=== PATIENT | female | born 1960 | race Caucasian/White ===

== ENCOUNTER 2021-07-08 03:09 | Emergency (ER) | payer MEDICAID, SELFPAY ==
--- NOTE | ~2021-07-08 | CT_ITS ---
EXAMINATION: CT ABDOMEN AND PELVIS WITHOUT CONTRAST CLINICAL INFORMATION: Left upper quadrant discomfort. Suspected hernia. COMPARISON: None TECHNIQUE: Multidetector volumetric imaging was performed from the superior aspect of the liver through the pubic symphysis. Sagittal and coronal reformatted images were obtained on the technologist's workstation. This CT examination was performed using dose optimization techniques as appropriate, variously including the following: *Automated exposure control *Adjustment of mA and/or kV according to patient size (this includes techniques or standardized protocols for targeted exams where dose is matched to indication/reason for exam; i.e. extremities or head) *Use of iterative reconstruction technique DLP: 800.85 mGy-cm FINDINGS: LUNG BASES: The visualized lung bases are unremarkable. Extensive calcifications are present within the included visualized part of both breasts. Mammographic correlation is recommended. LIVER, GALLBLADDER, AND BILIARY TREE: The liver is normal in size, shape, and attenuation. No focal hepatic lesion or biliary ductal dilatation is present. The gallbladder is surgically absent. PANCREAS: Unremarkable. SPLEEN: Unremarkable. ADRENAL GLANDS: Unremarkable. KIDNEYS AND URETERS: The left kidney is normal in size, shape, and attenuation. No hydronephrosis, hydroureter seen. No perinephric stranding. Contour abnormalities are present at the superior as well as inferior pole of the right kidney associated with soft tissue fullness, suspicious for masses, approximately measures 3 cm at the superior pole. Not optimally characterized on this noncontrast study. Note is made of linear hyperdensities within both renal sinuses, likely represent vascular calcification. Nonobstructing subtle calculi are included in the differential. BLADDER: Unremarkable. GASTROINTESTINAL TRACT: Fat-containing mass is noted in the region of the ascending colon (image #[id number] series 4) the appendix is well-visualized and is unremarkable. The small bowel loops are decompressed. The stomach is decompressed. Small sliding hiatal hernia present.. ABDOMINAL WALL: There is no evidence of any hernia present. Within the lower anterior abdominal/pelvic wall, bilateral nonspecific soft tissue masses are present measures 5.5 cm on the left and 6.9 cm on the right. LYMPH NODES: Normal. VASCULAR: Diffuse calcific artery opacities present throughout the aorta and is branches. PELVIC VISCERA: There is no pelvic mass present. There is no free fluid and/or free air present. OSSEOUS STRUCTURES: Moderate diffuse osteopenia and multilevel degenerative spondylosis related changes are noted at lower visualized thoracic spine. Degenerative spondylosis is also noted at lower lumbar spine. Low-density around both hips, may represent bilateral small hip joint effusions. CT/CT abdomen pelvis wo con IMPRESSION: 1. No CT evidence of any acute intra-abdominal and/or intrapelvic pathology is present. 2. Extensive bilateral breast calcifications are present. Mammographic correlation is recommended. 3. Abnormal morphology appearance of the right kidney suspicious for masses at both superior and inferior pole, not optimally characterized on this noncontrast study. Follow-up multiphasic pre and postcontrast CT scan of the abdomen or MRI per renal mass protocol is recommended. 4. Bilateral hyperdensities are noted within the renal sinuses, may represent vascular calcification versus nonobstructing central renal calculi. 5. Fat-containing mass is noted in the region of the ascending colon. Direct visualization/colonoscopy is recommended. 6. Bilateral lower anterior abdominal/pelvic wall nonspecific subcutaneous soft tissue masses. 7. Moderate diffuse osteopenia and multilevel degenerative spondylosis and low density around both hips, may represent bilateral small hip joint effusions.
[2021-07-08 03:14] VITALS: BP 140/64; PULSE 105; RESP 16; TEMP 37.2; BMI 37.0
[2021-07-08 04:08] LABS: MANUAL DIFF FLAG NO
[2021-07-08 04:09] LABS: Basophils Percent Auto 0.5 % (0-2); Eosinophils Absolute Auto 0.1 X10*3/uL (0.0-0.4); Eosinophils Percent Auto 1.2 % (0-4); Hematocrit 33.4 % (37-47); Hemoglobin 10.3 g/dl (12.0-16.0); Imm Gran Abs Auto 0.02 X10*3/uL (0.00-0.03); Imm Gran Pct Auto 0.2 % (0.0-0.4); Lymphocytes Absolute Auto 2.2 X10*3/uL (1.2-4.9); Lymphocytes Percent Auto 24.4 % (20-40); Mean Corpuscular HGB Conc 30.8 g/dl (31.0-35.0); Mean Corpuscular Volume 87.7 fL (80-98); Mean Platelet Volume 9.8 fL (9.4-12.3); Monocytes Absolute Auto 0.8 X10*3/uL (0.1-1.2); Monocytes Percent Auto 8.6 % (2-11); Neutrophils Absolute Auto 5.8 X10*3/uL (2.0-8.3); Neutrophils Percent Auto 65.1 % (45-73); Platelet Count 281 X10*3/uL (160-400); Red Blood Count 3.81 X10*6/uL (4.20-5.50); Red Cell Distribution Width 14.4 % (11.0-16.0); White Blood Count 8.9 X10*3/uL (4.8-10.8)
--- NOTE | 2021-07-08 04:20 | PC.NURSE ---
pt chg into ricki. at bedside for eval. IV placed to LAC, labs drawn to lab. Will continue to monitor pt.,
[2021-07-08 04:33] LABS: Alanine Aminotransferase 9 U/L (0-31); Alkaline Phosphatase 115 U/L (39-117); Anion Gap 13 (12-20); Aspartate Amino Transferase 11 U/L (5-31); Bilirubin Total 0.3 mg/dL (0.0-1.0); Blood Urea Nitrogen 19 mg/dL (9-16); Calcium 9.2 mg/dL (8.4-10.2); Carbon Dioxide 26 mmol/L (22-29); Chloride 104 mmol/L (96-108); Creatinine Clr Calc Pharmacy 43.9; Estimated Glomerular Filt Rate 36; Glucose Random 254 mg/dL (60-115); Potassium 4.5 mmol/L (3.3-5.1); Sodium 138 mmol/L (135-145); Total Protein 6.8 g/dL (6.5-8.0)
[2021-07-08 04:55] VITALS: BP 127/60; PULSE 104; RESP 16; O2SAT 97
[2021-07-08 05:14] LABS: Glucose Urine UA 100 MG/DL (NEG); Leukocyte Esterase Urine 3+ (NEG); Nitrite Urine POS (NEG); UACC Culture Trigger YES; Urine Blood NEG (NEG); Urine Ketones NEG (NEG); Urine Protein NEG (NEG-TRACE)
--- NOTE | 2021-07-08 05:15 | ED_ITS ---
HPI - Abdominal Pain General Chief Complaint: Abdominal Pain Stated Complaint: abd pain Time Seen by Provider: 07/08/21 05:15 Source: patient Mode of arrival: ambulatory History of Present Illness HPI narrative: 60-year-old female with history of diabetes and high blood pressure presents with concerns regarding increasing abdominal pain in the left upper quadrant since November of this year that is not associated with fever, chills, nausea, vomiting, obstipation and patient denies any urinary pain/burning/frequency. Related Data Allergies Allergy/AdvReac Type Severity Reaction Status Date / Time Pork/Porcine Containing Allergy Mild SORES Verified 07/08/21 03:13 Products /ITCHING [Pork/Porcine Product Derivatives] seasonal Allergy Unknown Itchy Eyes Uncoded 07/08/21 03:13 Review of Systems Review of Systems Pertinent positives and negatives as stated in HPI 10 point review of systems is otherwise negative. Physical Exam Vital Signs: Vital Signs: Last Vital Signs Temp 98.9 F 07/08/21 03:14 Pulse 99 07/08/21 06:31 Resp 18 07/08/21 06:31 BP 125/62 07/08/21 06:31 Pulse Ox 97 07/08/21 04:55 Body Mass Index 37.0 VITAL SIGNS: Reviewed. GENERAL: Well developed, well nourished, in no acute distress. HEAD: Normocephalic/atraumatic EYES: PERRLA, EOMI OROPHARYNX: no oral lesions noted, posterior pharynx clear LUNGS: Normal breath sounds. No adventitious sounds or accessory muscle use. SpO2<97> CARDIOVASCULAR: Regular rate and rhythm without noted murmurs, no JVD or lower extremity edema. ABDOMEN: Obese, Soft, tenderness at left upper quadrant on light palpation, body habitus limits exam, non-distended with bowel sounds. SKIN: Inspection of the skin reveals no rashes NEUROLOGIC: Alert and oriented x 4. Course Course Course Narrative: 60-year-old female with history and clinical presentation suggestive of possible hernia but felt to be less likely diverticulitis or gastritis. On review of all investigations findings are consistent with patient's reported CKD, however concerns regarding CT findings which demonstrate multiple abnormalities noted on the right kidney as well as a mass within the ascending colon, bilateral lower anterior abdominal pelvic soft tissue masses. I discussed the findings with the patient at bedside and she understands that outpatient follow-up is going to be coordinated through our case management. Patient is otherwise stable for discharge and continuing with her home medications. MDM - Abdominal Pain Lab Data Result diagrams: 07/08/21 04:00 07/08/21 04:00 Labs: Lab Results 07/08/21 07/08/21 07/08/21 Range/Units 04:00 04:00 05:02 WBC 8.9 (4.8-10.8) X10*3/uL RBC 3.81 L (4.20-5.50) X10*6/uL Hgb 10.3 L (12.0-16.0) g/dl Hct 33.4 L (37-47) % MCV 87.7 (80-98) fL MCH 27.0 (27.0-33.0) pg MCHC 30.8 L (31.0-35.0) g/dl RDW 14.4 (11.0-16.0) % Plt Count 281 (160-400) X10*3/uL MPV 9.8 (9.4-12.3) fL Immature Gran % (Auto) 0.2 (0.0-0.4) % Neut % (Auto) 65.1 (45-73) % Lymph % (Auto) 24.4 (20-40) % [place] % (Auto) 8.6 (2-11) % Eos % (Auto) 1.2 (0-4) % Baso % (Auto) 0.5 (0-2) % Lymph # (Auto) 2.2 (1.2-4.9) X10*3/uL [place] # (Auto) 0.8 (0.1-1.2) X10*3/uL Eos # (Auto) 0.1 (0.0-0.4) X10*3/uL Baso # (Auto) 0.0 (0.0-0.2) X10*3/uL Abs Immat Gran (auto) 0.02 (0.00-0.03) X10*3/uL Absolute Neuts (auto) 5.8 (2.0-8.3) X10*3/uL Absolute Nucleated RBC 0.000 (0.0-0.012) X10*3/uL Nucleated RBC % (auto) 0.0 (0.0-0.2) /100WBC Sodium 138 (135-145) mmol/L Potassium 4.5 (3.3-5.1) mmol/L Chloride 104 (96-108) mmol/L Carbon Dioxide 26 (22-29) mmol/L Anion Gap 13 (12-20) BUN 19 H (9-16) mg/dL Creatinine 1.49 H (0.5-1.4) mg/dL Estim Creat Clear Calc 43.9 Estimated GFR 36 Random Glucose 254 H (60-115) mg/dL Calcium 9.2 (8.4-10.2) mg/dL Total Bilirubin 0.3 (0.0-1.0) mg/dL AST 11 (5-31) U/L ALT 9 (0-31) U/L Alkaline Phosphatase 115 (39-117) U/L Total Protein 6.8 (6.5-8.0) g/dL Albumin 4.0 (3.5-5.0) g/dL Urine Color YELLOW Urine Appearance HAZY Urine pH 6.0 (5.0-8.0) Ur Specific Bliss 1.010 (1.005-1.025) Urine Protein NEG (NEG-TRACE) MG/DL Urine Glucose (UA) 100 H (NEG) MG/DL Urine Ketones NEG (NEG) MG/DL Urine Blood NEG (NEG) Urine Nitrite POS H (NEG) Ur Leukocyte Esterase 3+ H (NEG) Urine RBC 0-2 (0) /HPF Urine WBC 30-49 H (0-4) /HPF Urine WBC Clumps NOTED Ur Squamous Epith Cells 1+ /LPF Urine Bacteria 3+ /LPF Urine Mucus TRACE /LPF Discharge Plan Discharge Clinical Impression: Breast calcifications, Colonic mass, Renal mass Patient Disposition: Home, Self-Care Instructions: Soft Tissue Mass (ED) Additional Instructions: 1. Resume all home medications as prescribed. 2. You are being provided with outpatient follow-up regarding the abnormal findings on your CT scan which will involve further investigations coordinated in the outpatient setting. 3. Recommend that you take [id number] Tylenol/ibuprofen as needed for pain control. Return to the ER for acute worsening of your symptoms. Referrals: [facility] [Outside] - 2 days PMF Past Medical History Source: nursing notes reviewed Medical History Diabetes High cholesterol IBS (irritable bowel syndrome) Kidney stones Surgical History Hx of cholecystectomy Social History Social History Advance Directives: No Advance Directives Information Provided: No
[2021-07-08 05:30] LABS: Appearance Urine HAZY; Color Urine YELLOW
[2021-07-08 05:48] LABS: Bacteria Urine 3+ /LPF; Mucus Urine TRACE /LPF; RBC Urine 0-2 /HPF (0); Squamous Epithelial Cell Urine 1+ /LPF; WBC Clumps Urine NOTED; WBC Urine 30-49 /HPF (0-4)
[2021-07-08 06:31] VITALS: BP 125/62; PULSE 99; RESP 18
[2021-07-08 08:34] VITALS: BP 127/69; PULSE 104; RESP 18; TEMP 37; O2SAT 96
--- NOTE | 2021-07-08 08:37 | PC.NURSE ---
Pt alert and oriented, vss. Pt denies pain/sob/headache/dizziness. Pt resting quietly, no apparent distress noted. Pt seen by provider and is medically cleared. Case Management consult pending. Will continue to monitor.
--- NOTE | 2021-07-08 09:14 | PC.NURSE ---
Pt seen by Case Management and ready for discharge.
--- NOTE | 2021-07-08 11:25 | MHC.CM.ED ---
Late entry from 09:00: Met with patient in regards to discharge planning. Patient lives with her and son, ambulates independently and had no services prior to coming to the hospital. New PCP is at [facility]. Old PCP was on [facility] in [place]. Patient denies having a HCP. Information provided. Patient not interested in completing one at this time. Patient received 2nd Pfizer vaccine on 03/05. Per Dr Issa, patient's CT scan found to have colonic mass. Patient will need followup with PCP and oncology. T/W explained to patient, [facility] and Oncology would be contacted on 07/09 and patient will be contacted with appointment information. Patient verbalized understanding. Patient will arrange transportation home. Continue to monitor for d/c needs.
--- NOTE | 2021-07-09 16:02 | MHC.CM.ED ---
Spoke with [facility]. Appointment booked for 07/12 at 1050am. Spoke with Catherine at [facility]. Patient's PCP appointment is for 104. Catherine will try to get the appointment moved up. T/W spoke with patient via telephone at [phone]. Patient aware of above.
== END 2021-07-08 09:24 | disposition home or self-care (01) ==
PROVIDERS: Student in an Organized Health Care Education/Training Program; Emergency Provider Emergency Medicine
DX: R10.12 Left upper quadrant pain (principal); N63.0 Unspecified lump in unspecified breast; N28.89 Other specified disorders of kidney and ureter; Z79.899 Other long term (current) drug therapy
CPT/HCPCS: 36415; 74176; 80053; 81001; 85025; 87086; 87088; 87186; 99284

== ENCOUNTER → 2021-07-20 09:48 | Outpatient (BNVA) | payer MEDICAID, SELFPAY | PROVIDERS: Visit Provider Urology | DX: N28.89 Other specified disorders of kidney and ureter (principal); K58.9 Irritable bowel syndrome, unspecified | CPT/HCPCS: 99202 ==

== ENCOUNTER 2021-08-21 13:47 | Outpatient (REF) | payer MEDICAID, SELFPAY ==
[2021-08-21 15:36] LABS: C Reactive Protein 0.76 mg/dL (< or = 0.50)
[2021-08-25 13:30] LABS: Transglutaminase Ab IgG <1.0 U/mL; Transglutaminase IgA <1.0 U/mL
== END 2021-08-21 13:48 | disposition home or self-care (01) ==
LOC: HO.LAB 13:47
PROVIDERS: PCP Family Medicine; Visit Provider Nurse Practitioner Family
DX: K58.1 Irritable bowel syndrome with constipation (principal); K21.9 Gastro-esophageal reflux disease without esophagitis; K59.04 Chronic idiopathic constipation; R19.00 Intra-abdominal and pelvic swelling, mass and lump, unspecified site; R10.11 Right upper quadrant pain; R14.0 Abdominal distension (gaseous)
CPT/HCPCS: 36415; 83516; 86140

== ENCOUNTER 2021-09-17 12:31 | Outpatient (REF) | payer MEDICAID, SELFPAY ==
--- NOTE | ~2021-09-17 | CT_ITS ---
EXAMINATION: CT ABDOMEN AND PELVIS WITHOUT CONTRAST CLINICAL INFORMATION: Renal disorder COMPARISON: Previous CT of the abdomen and pelvis June 2021 TECHNIQUE: Multidetector volumetric imaging was performed from the superior aspect of the liver through the pubic symphysis. Sagittal and coronal reformatted images were obtained on the technologist's workstation. This CT examination was performed using dose optimization techniques as appropriate, variously including the following: *Automated exposure control *Adjustment of mA and/or kV according to patient size (this includes techniques or standardized protocols for targeted exams where dose is matched to indication/reason for exam; i.e. extremities or head) *Use of iterative reconstruction technique DLP: 620 mGy-cm FINDINGS: LUNG BASES: The lung bases are clear. There is left breast calcification appears unchanged. LIVER, GALLBLADDER, AND BILIARY TREE: The liver is normal in size, shape, and attenuation. No focal hepatic lesion or biliary ductal dilatation is present. The gallbladder has been removed. PANCREAS: Unremarkable. SPLEEN: Unremarkable. ADRENAL GLANDS: Unremarkable. KIDNEYS AND URETERS: There is lobulated contour to the kidney, right greater than left. A definite renal mass is is not appreciated. There is bilateral vascular calcification. No stone or hydronephrosis is seen. BLADDER: Not optimally distended. GASTROINTESTINAL TRACT: The small and large bowel are unremarkable. The appendix is unremarkable. The ileocecal valve appears prominent similar to previous exam. ABDOMINAL WALL: No hernia is seen. There are bilateral lower abdominal wall subcutaneous soft tissue masses measuring approximately 1.5 x 6 cm in AP and transverse dimension on the right and 1.3 x 4 cm on the left. These appear unchanged. This may be related to repeated subcutaneous injection sites or possibly previous chiasmatic surgery. Clinical correlation recommended. LYMPH NODES: There are small retroperitoneal lymph nodes. No enlarged lymph nodes are seen. There is no ascites. VASCULAR: There is severe atherosclerotic disease. No aneurysm is seen. PELVIC VISCERA: Unremarkable. OSSEOUS STRUCTURES: There are degenerative changes of the spine. There are small sclerotic densities in the right pelvis and femoral head that appear unchanged probably represent bone islands. CT/CT abdomen pelvis wo con IMPRESSION: Lobulated contour to the kidneys, right greater than left. No definite renal mass is seen on noncontrast enhanced exam. This could be better evaluated with ultrasound or MRI without contrast given patient's abnormal renal function. Severe atherosclerotic disease.
[2021-09-17 13:02] LABS: Blood Urea Nitrogen 28 mg/dL (9-16); Estimated Glomerular Filt Rate 29
== END 2021-09-17 12:32 | disposition home or self-care (01) ==
LOC: HO.CT 12:31
PROVIDERS: Visit Provider Urology
DX: N28.89 Other specified disorders of kidney and ureter (principal)
CPT/HCPCS: 36415; 74176; 82565; 84520

== ENCOUNTER → 2021-09-19 13:48 | Outpatient (BNVA) | payer MEDICAID, SELFPAY | PROVIDERS: PCP Family Medicine; Referring Provider Family Medicine; Visit Provider Nurse Practitioner Family | DX: K58.1 Irritable bowel syndrome with constipation (principal); K21.9 Gastro-esophageal reflux disease without esophagitis; K59.04 Chronic idiopathic constipation; R19.00 Intra-abdominal and pelvic swelling, mass and lump, unspecified site; J30.2 Other seasonal allergic rhinitis; L23.0 Allergic contact dermatitis due to metals; Z91.014 Allergy to mammalian meats | CPT/HCPCS: 99212 ==

== ENCOUNTER 2021-10-05 09:25 | Outpatient (REF) | payer MEDICAID, SELFPAY ==
--- NOTE | ~2021-10-05 | MR_ITS ---
EXAMINATION: MR ABDOMEN WITHOUT AND WITH CONTRAST CLINICAL INFORMATION: History of abdominal pain and renal disorder. Lobulated contour of kidneys on prior imaging. Evaluate for mass. Patient reports chronic left-sided pain. COMPARISON: CT abdomen and pelvis from 07/08/2021 and 09/17/2021. TECHNIQUE: MR imaging the abdomen was performed using standard sequences on a high-field magnet without and with intravenous administration of 10 mL Gadavist. The images are predominantly focused on the region of the kidneys. FINDINGS: LOCALIZER IMAGES: Obese body habitus and mild edema in subcutaneous tissues of the back. LUNG BASES: Normal. No pulmonary consolidation or pleural effusion at either lung base. LIVER: Liver has normal size, contour and parenchymal signal. No hepatic mass. No cirrhotic morphology or steatosis. No significant signal reduction of liver parenchyma on [id number] compared to in phase images. GALLBLADDER AND BILIARY TREE: Gallbladder is surgically absent. Common bile duct measures up to 0.7 cm diameter. No ductal stricture or choledocholithiasis. No dilated bile ducts. PANCREAS: Normal. No edema, pancreatic ductal dilatation or mass. SPLEEN: Normal. ADRENAL GLANDS: Normal. KIDNEYS: Kidneys, which have lobulated contour, are normal in size. No evidence of renal tumor, hydronephrosis or perinephric edema. Small, 0.5 cm simple cyst in the interpolar region of the right kidney and 0.6 cm simple cortical cyst of the left upper pole. Renal imaging follow-up is not recommended for simple cysts. No suspicious renal lesion. BOWEL AND PERITONEUM: Stomach is unremarkable. No dilated loops of bowel. No bowel wall thickening or mesenteric fat stranding. No ascites or peritoneal nodules. ABDOMINAL WALL: No abdominal wall mass or hernia. VASCULATURE: The atherosclerotic abdominal aorta is normal in size. The celiac, mesenteric and renal arteries are widely patent at their aortic origins. Inferior vena cava is normal. LYMPH NODES: No pathologic sized lymph nodes in the abdomen. SKELETAL: No acute abnormalities in the visualized degenerated spine. No suspicious bone lesion. No evidence of vertebral fracture or malalignment. MR/MR abdomen wo/w con IMPRESSION: * No specific source of abdominal pain is identified. * Small, benign renal cysts. Imaging follow-up is not recommended for simple cysts.
[2021-10-05 09:58] LABS: Blood Urea Nitrogen 26 mg/dL (9-16); Estimated Glomerular Filt Rate 27
== END 2021-10-05 09:26 | disposition home or self-care (01) ==
LOC: HO.MRI 09:25
PROVIDERS: PCP Family Medicine; Visit Provider Family Medicine
DX: N28.89 Other specified disorders of kidney and ureter (principal)
CPT/HCPCS: 36415; 74183; 82565; 84520; A9585

== ENCOUNTER → 2021-11-08 10:27 | Outpatient (BNVA) | payer MEDICAID, SELFPAY | PROVIDERS: PCP Family Medicine | DX: N28.89 Other specified disorders of kidney and ureter (principal); N81.10 Cystocele, unspecified | CPT/HCPCS: 99212 ==

== ENCOUNTER 2021-12-20 15:17 | Outpatient (REF) | payer MEDICAID, SELFPAY ==
--- NOTE | ~2021-12-20 | US_ITS ---
EXAMINATION: US RETROPERITONEAL LIMITED (RENAL ONLY) CLINICAL INFORMATION: History of renal cyst. COMPARISON: MRI abdomen 10/05/2021. CT abdomen and pelvis 09/17/2021. TECHNIQUE: Real-time imaging of the kidneys. Exam is limited due to patient body habitus. FINDINGS: RIGHT KIDNEY: 9.9 x 5.6 x 5.3 cm (SAG x AP x TRV). The kidney is normal in size, contour, and echogenicity. Renal cortical thickness is normal. No calculi or focal parenchymal lesions. No hydronephrosis. LEFT KIDNEY: The left kidney is not well visualized, particularly the lower pole the left kidney measures 8.4 x 4.7 x 4.9 cm (SAG x AP x TRV). No calculi or focal parenchymal lesions. No hydronephrosis. US/US renal BI IMPRESSION: Limited exam. No renal cyst seen.
== END 2021-12-20 15:18 | disposition home or self-care (01) ==
LOC: HO.US 15:17
DX: N28.89 Other specified disorders of kidney and ureter (principal)
CPT/HCPCS: 76775

== ENCOUNTER 2021-12-24 10:35 | Day surgery (SDC) | payer MEDICAID, SELFPAY ==
--- NOTE | 2021-12-21 12:58 | HO.ANESPROP2 ---
Documented by User: Suzan York NP 12/21/21 13:02 HPI - Anesthesia Eval Consult details Narrative: 61yo F for Upper Endoscopy and Colonoscopy PMFSH Active Problems Active Problems: All Active Problems (Updated 12/18/21 @ 13:23 by Mary Gonzalez RN) Renal mass (Acute) Renal cyst (Acute) Bladder prolapse, female, acquired (Acute) IBS (irritable bowel syndrome) (Acute) Past Medical History Medical History (Updated 12/18/21 @ 13:23 by Mary Gonzalez RN) Anemia Bladder prolapse, female, acquired CKD (chronic kidney disease) Diabetes GERD (gastroesophageal reflux disease) High cholesterol Hx of gastric ulcer IBS (irritable bowel syndrome) Kidney stones Renal cyst Family History Family History Other No pertinent family history Surgical History Surgical History History of partial hysterectomy Hx of breast reduction, elective Hx of cholecystectomy Hx of colonoscopy Hx of endoscopy Social History Social History Household Members: Spouse Housing: Apartment Alcohol intake: never Patient Tobacco Use Status: Never used Tobacco Second Hand Smoke Exposure: No Use of substances other than those prescribed or required for medical reasons: No Are you DNR?: No Advance Directives: No Advance Directives Information Provided: Yes Advance Directives on File: No Meds Allergies Allergy/AdvReac Type Severity Reaction Status Date / Time Pork/Porcine Containing Allergy Mild SORES Verified 11/08/21 10:36 Products /ITCHING [Pork/Porcine Product Derivatives] nickel AdvReac Swelling Verified 11/08/21 10:36 and irritation seasonal Allergy Unknown Itchy Eyes Uncoded 11/08/21 10:36 Home Medications Medication Instructions Recorded Confirmed Last Taken Type atorvastatin 20 mg tablet 20 mg PO DAILY 07/20/21 12/18/21 Unknown History cetirizine 10 mg tablet 10 mg PO DAILY 07/20/21 12/18/21 Unknown History insulin degludec 100 unit/mL (3 90 unit SUBCUT BEDTIME 07/20/21 12/18/21 Unknown History mL) subcutaneous pen (Tresiba FlexTouch U-100 insulin) insulin lispro 100 unit/mL 14 unit SUBCUT TID 07/20/21 12/18/21 Unknown History subcutaneous pen (Humalog KwikPen (U-100) Insulin) dapagliflozin 10 mg tablet 1 tab PO DAILY 12/18/21 12/18/21 Unknown History (Farxiga) fluticasone propionate 50 1 spray INTRANASAL DAILY 12/18/21 12/18/21 Unknown History mcg/actuation nasal spray,suspension metformin 500 mg tablet 1 tab PO BID 12/18/21 12/18/21 Unknown History pantoprazole 40 mg tablet,delayed 1 tab PO DAILY 12/18/21 12/18/21 Unknown History release Exam Exam Date and Time: December 21, 2021 125 Pertinent Lab Results Pertinent Lab Results: Laboratory Tests 07/08/21 07/08/21 10/05/21 04:00 04:00 09:30 WBC 8.9 Hgb 10.3 L Hct 33.4 L Plt Count 281 Sodium 138 Potassium 4.5 Chloride 104 Carbon Dioxide 26 BUN 26 H Creatinine 1.91 H Assessment and Plan Assessment Anesthesia Assessment: Chart Reviewed Documented by User: Valery Dominguez MD 12/24/21 13:01 [facility] Past Medical History Medical History (Updated 12/18/21 @ 13:23 by Mary Gonzalez RN) Anemia Bladder prolapse, female, acquired CKD (chronic kidney disease) Diabetes GERD (gastroesophageal reflux disease) High cholesterol Hx of gastric ulcer IBS (irritable bowel syndrome) Kidney stones Renal cyst Family History Family History Other No pertinent family history Family history of problems with anesthesia: No Surgical History Surgical History History of partial hysterectomy Hx of breast reduction, elective Hx of cholecystectomy Hx of colonoscopy Hx of endoscopy History of Problems with Anesthesia: No Social History Social History Household Members: Spouse Housing: Apartment Alcohol intake: never Patient Tobacco Use Status: Never used Tobacco Second Hand Smoke Exposure: No Use of substances other than those prescribed or required for medical reasons: No Are you DNR?: No Advance Directives: No Advance Directives Information Provided: Yes Advance Directives on File: No Meds Allergies Allergy/AdvReac Type Severity Reaction Status Date / Time Pork/Porcine Containing Allergy Mild SORES Verified 11/08/21 10:36 Products /ITCHING [Pork/Porcine Product Derivatives] nickel AdvReac Swelling Verified 11/08/21 10:36 and irritation seasonal Allergy Unknown Itchy Eyes Uncoded 11/08/21 10:36 Home Medications Medication Instructions Recorded Confirmed Last Taken Type atorvastatin 20 mg tablet 20 mg PO DAILY 07/20/21 12/18/21 Unknown History cetirizine 10 mg tablet 10 mg PO DAILY 07/20/21 12/18/21 Unknown History insulin degludec 100 unit/mL (3 90 unit SUBCUT BEDTIME 07/20/21 12/18/21 Unknown History mL) subcutaneous pen (Tresiba FlexTouch U-100 insulin) insulin lispro 100 unit/mL 14 unit SUBCUT TID 07/20/21 12/18/21 Unknown History subcutaneous pen (Humalog KwikPen (U-100) Insulin) dapagliflozin 10 mg tablet 1 tab PO DAILY 12/18/21 12/18/21 Unknown History (Farxiga) fluticasone propionate 50 1 spray INTRANASAL DAILY 12/18/21 12/18/21 Unknown History mcg/actuation nasal spray,suspension metformin 500 mg tablet 1 tab PO BID 12/18/21 12/18/21 Unknown History pantoprazole 40 mg tablet,delayed 1 tab PO DAILY 12/18/21 12/18/21 Unknown History release Exam Airway Mallampati Class: II (Multiple missing teeth, nothing loose) TM Dist: >3cm Neck ROM: Full Heart: rrr Lungs: cta Assessment and Plan Assessment Anesthesia Assessment: Anesthesia Plan Discussed and Chart Reviewed Final Anesthetic Review Family History of Problems with Anesthesia: No History of Problems with Anesthesia: No NPO: Yes ASA Class: III Final Preanesthetic Review: No Changes in Pt Med Stat, Meds/Allgs Chart Reviewed and Consent Obtained/Reviewed Patient Risk: Intermediate Procedure Risk: Intermediate Anesthetic Plan Anesthetic Plan: MAC: Disposition: Standard PACU
[2021-12-24 11:25] VITALS: BMI 37.6
--- NOTE | 2021-12-24 11:43 | MHC.SHP ---
Pre-Procedural Eval Section A Date of Service: 12/24/21 The patient is an INPATIENT: No The History & Physical has been completed within 30 days and I have reviewed it.: No Section B Chief Complaint: reflux disease,IBS with constipation Details of Present Illness: Colon cancer screening, GERD, abdominal pain, constipation Relevant Family History (Specify if Yes): No Relevant Social History: None Present Medications: see Short Stay Collaborative assessment Medical History: Significant History (Diabetes High cholesterol Hx of gastric ulcer IBS (irritable bowel syndrome) Kidney stones) History of Previous Operations: Relevant previous surgery/procedure and date(s) (History of partial hysterectomy Hx of breast reduction, elective Hx of cholecystectomy Hx of colonoscopy Hx of endoscopy) Allergies: Allergies Allergy/AdvReac Type Severity Reaction Status Date / Time Pork/Porcine Containing Allergy Mild SORES Verified 11/08/21 10:36 Products /ITCHING [Pork/Porcine Product Derivatives] nickel AdvReac Swelling Verified 11/08/21 10:36 and irritation seasonal Allergy Unknown Itchy Eyes Uncoded 11/08/21 10:36 Review of Systems Sugical H&P ROS: Negative: Constitution and Cardiovascular and Yes, Specify: Gastrointestinal (abdominal pain, early satiety) Exam Surgical H&P Exam: Normal: Heart, Normal: Lungs and Normal: Extremities and Significant Findings: Abdomen (LUQ tenderness) Plan Diagnosis/Plan: Unchanged I have reviewed the history and physical and performed a pertinent physical examination on my patient. No changes have occurred unless specified.
--- NOTE | 2021-12-24 11:45 | PM.OP ---
Brief Operative Note Date of Service: 12/24/21 Pre-op diagnosis: Colon cancer screening, GERD, abdominal pain, constipation Post-op diagnosis: other (GERD, Gastritis, colon polyp, diverticulosis, hemorrhoids) Procedure: FLEXIBLE TRANSORAL UPPER GASTROINTESTINAL ENDOSCOPY WITH BIOPSIES AND COLONOSCOPY TILL CECUM WITH SNARE POLYPECTOMY UPPER ENDOSCOPY Consent: Indications for the procedure and potential complications of bleeding, perforation, reaction to medications and missed diagnosis were discussed with the patient and informed consent was obtained. Instrument: Olympus GIF H 190 mid size upper endoscope Monitoring: Vital signs and clinical assessment, continuous EKG monitoring, Pulse oximetry, Carbon Dioxide monitoring and blood pressure monitoring were done throughout the procedure. Procedure: The patient was placed in the left lateral decubitis position and pre-procedure medications were administered and a bite block was placed. The endoscope was inserted into the mouth and advanced under direct vision to the third part of duodenum. A careful inspection was made as the upper endoscope was withdrawn including a retroflexed examination of the proximal stomach; Findings and interventions are described below. Findings: Larynx: Normal Esophagus: GE junction at 38 cms. No esophagitis or Dumont's. Stomach: Mild gastric erythema with prominent gastric folds in the gastric body - biopsied. Biopsies were obtained from the antrum to check for H Pylori. Grade 2 flap valve on retroflexed examination of the cardia. Duodenum: Normal bulb and descending duodenum. Biopsies obtained from 3rd part of duodenum to check for celiac sprue Intervention: Biopsies as noted above COLONOSCOPY PROCEDURE NOTE Consent: Indications for the procedure and potential complications of bleeding, perforation, reaction to medications and missed diagnosis were discussed with the patient and informed consent was obtained. Instrument: Olympus PCF H 190 L variable stiffness pediatric colonoscope Monitoring: Vital signs and clinical assessment, intermittent blood pressure monitoring, continuous EKG monitoring, Pulse oximetry and Carbon Dioxide monitoring were done throughout the procedure. Colon withdrawl time was 20 minutes. Procedure: The patient was placed in the left lateral decubitis position and pre-procedure medications were administered. After a digital rectal examination of the ano-rectum, the video colonoscope was inserted into the rectum and advanced through the colon to the cecum. The colonoscope was slowly withdrawn in a retrograde panoramic fashion and the colon mucosa was carefully examined including a retroflexed view of the rectum. Findings and interventions are described below. Procedure Difficulty: : Without difficulty Findings: Terminal Ileum: Not evaluated Cecum: Normal Ascending Colon: Normal Transverse Colon: A 10 mm sessile polyp removed with a cold snare Descending Colon: Normal Sigmoid Colon: Moderate diverticulosis Rectum: Normal Ano-rectum: Hypertrophied anal papillae Colon preparation: Good after copious irrigation Impression and Post Procedure Diagnosis: Endoscopy Findings: STOMACH: Mild gastric erythema with prominent gastric folds in the gastric body - biopsied. Biopsies were obtained from the antrum to check for H Pylori. DUODENUM: Normal - biopsied to check for celiac sprue Colonoscopy Findings: One medium sized polyp removed Moderate diverticulosis seen in the sigmoid colon Plan: Await pathology results Patient has an appointment on 01/07/22 in the [facility] with Zoe Montalvo FNP-BC. Repeat Colonoscopy interval based on path results - in 3 years if polyps are adenomatous and 10 years if polyps are hyperplastic. Above findings were reviewed with the patient and colon polyps and diverticulosis handouts were given in the discharge area Surgeon: Micky Adrian MD Anesthesia: MAC (Dr Lee) Was an Financial Planning Advisor used for this Procedure?: Yes Financial Planning Advisor: Crystal Mckeon Estimated blood loss (mL): 0 Pathology: other (A. small bowel bxs, R/O celiac B. gastric antrum, R/O H. pylori C. gastric fold bxs D. transverse colon polyp) Condition: stable Disposition: PACU
--- NOTE | 2021-12-24 11:46 | P.OP_ITS ---
Operative Note Operative Note Date of Service: 12/24/21 Narrative: Pre-op diagnosis: Colon cancer screening, GERD, abdominal pain, constipation Post-op diagnosis:?other (GERD, Gastritis, colon polyp, diverticulosis, hemorrhoids) Procedure: FLEXIBLE TRANSORAL UPPER GASTROINTESTINAL ENDOSCOPY WITH BIOPSIES AND COLONOSCOPY TILL CECUM WITH SNARE POLYPECTOMY UPPER ENDOSCOPY Consent:?Indications for the procedure and potential complications of bleeding, perforation, reaction to medications and missed diagnosis were discussed with the patient and informed consent was obtained. Instrument:?Olympus GIF H 190 mid size upper endoscope Monitoring: Vital signs and clinical assessment, continuous EKG monitoring, Pulse oximetry, Carbon Dioxide monitoring and blood pressure monitoring were done throughout the procedure. Procedure:?The patient was placed in the left lateral decubitis position and pre-procedure medications were administered and a bite block was placed. The endoscope was inserted into the mouth and advanced under direct vision to the third part of duodenum. A careful inspection was made as the upper endoscope was withdrawn including a retroflexed examination of the proximal stomach; Findings and interventions are described below. Findings: Larynx:? Normal Esophagus:?GE junction at 38 cms. No esophagitis or Dumont's. Stomach:?Mild gastric erythema with prominent gastric folds in the gastric body - biopsied. Biopsies were obtained from the antrum to check for H Pylori. Grade 2 flap valve on retroflexed examination of the cardia. Duodenum:?Normal bulb and descending duodenum.? Biopsies obtained from 3rd part of duodenum to check for celiac sprue Intervention:?Biopsies as noted above COLONOSCOPY PROCEDURE NOTE Consent:?Indications for the procedure and potential complications of bleeding, perforation, reaction to medications and missed diagnosis were discussed with the patient and informed consent was obtained. Instrument:?Olympus PCF H 190 L variable stiffness pediatric colonoscope Monitoring:?Vital signs and clinical assessment, intermittent blood pressure monitoring, continuous EKG monitoring, Pulse oximetry and Carbon Dioxide monitoring were done throughout the procedure. Colon withdrawl time was 20 minutes. Procedure:?The patient was placed in the left lateral decubitis position and pre-procedure medications were administered. After a digital rectal examination of the ano-rectum, the video colonoscope was inserted into the rectum and advanced through the colon to the cecum. The colonoscope was slowly withdrawn in a retrograde panoramic fashion and the colon mucosa was carefully examined including a retroflexed view of the rectum. Findings and interventions are described below. Procedure Difficulty:?: Without difficulty Findings: Terminal Ileum: Not evaluated Cecum:? Normal Ascending Colon:??Normal Transverse Colon:??A 10 mm sessile polyp removed with a cold snare Descending Colon:? Normal Sigmoid Colon:??Moderate diverticulosis Rectum:??Normal Ano-rectum:??Hypertrophied anal papillae Colon preparation:? Good after copious irrigation Impression and Post Procedure Diagnosis: Endoscopy Findings: STOMACH: Mild gastric erythema with prominent gastric folds in the gastric body - biopsied. Biopsies were obtained from the antrum to check for H Pylori. DUODENUM: Normal - biopsied to check for celiac sprue Colonoscopy Findings: One medium sized polyp removed Moderate diverticulosis seen in the sigmoid colon Plan: Await pathology results Patient has an appointment on 01/07/22 in the GI Clinic with? Zoe Montalvo FNP-CHELSEY. Repeat Colonoscopy interval based on path results - in 3 years if polyps are adenomatous and 10 years if polyps are hyperplastic. Above findings were reviewed with the patient and colon polyps and diverticulosis handouts were given in the discharge area Surgeon: Micky Adrian MD Anesthesia:?MAC (Dr Lee) Was an Asw/Asuw Tactical Air Controller used for this Procedure?:?Yes Asw/Asuw Tactical Air Controller:?Crystal Mckeon Estimated blood loss (mL):?0 Pathology:?other (A. small bowel bxs, R/O celiac B. gastric antrum, R/O H. pylori? C. gastric fold bxs? D. transverse colon polyp) Condition:?stable Disposition:?PACU
[2021-12-24 11:58] LABS: Hemoglobin 10.6 g/dl (12.0-16.0); Mean Corpuscular HGB Conc 30.3 g/dl (31.0-35.0); Mean Corpuscular Hemoglobin 26.4 pg (27.0-33.0); Mean Corpuscular Volume 87.1 fL (80.0-98.0); Mean Platelet Volume 10.4 fL (9.4-12.3); Platelet Count 303 X10*3/uL (160-400); Red Blood Count 4.02 X10*6/uL (4.20-5.50); Red Cell Distribution Width 15.2 % (11.0-16.0); White Blood Count 7.4 X10*3/uL (4.8-10.8)
[2021-12-24 12:26] LABS: Anion Gap 10 (12-20); Blood Urea Nitrogen 15 mg/dL (9-16); Calcium 9.4 mg/dL (8.4-10.2); Carbon Dioxide 28 mmol/L (22-29); Chloride 109 mmol/L (96-108); Creatinine Clr Calc Pharmacy 44.9; Estimated Glomerular Filt Rate 38; Glucose Fasting 117 mg/dL (60-99); Potassium 4.4 mmol/L (3.3-5.1); Sodium 143 mmol/L (135-145)
[2021-12-24 12:44] VITALS: BP 146/64; PULSE 98; RESP 18; TEMP 36.6; O2SAT 98
[2021-12-24] MEDS: Lactated Ringers 1,000 ML 50 ML IVCONT (12:44)
[2021-12-24 14:05] VITALS: BP 112/54; PULSE 92; RESP 16; TEMP 36.9; O2SAT 97
[2021-12-24 14:20] VITALS: BP 131/71; PULSE 96; RESP 16; O2SAT 98
[2021-12-24 14:35] VITALS: BP 127/73; PULSE 96; RESP 16; TEMP 36.9; O2SAT 98
--- NOTE | 2021-12-31 22:01 | MHC.SHP ---
Pre-Procedural Eval Section A Date of Service: 12/31/21 Section B Chief Complaint: reflux disease,IBS with constipation Allergies: Allergies Allergy/AdvReac Type Severity Reaction Status Date / Time Pork/Porcine Containing Allergy Mild SORES Verified 11/08/21 10:36 Products /ITCHING [Pork/Porcine Product Derivatives] nickel AdvReac Swelling Verified 11/08/21 10:36 and irritation seasonal Allergy Unknown Itchy Eyes Uncoded 11/08/21 10:36 Plan I have reviewed the history and physical and performed a pertinent physical examination on my patient. No changes have occurred unless specified.
== END 2021-12-24 15:45 ==
LOC: HO.SSS 10:35
PROVIDERS: Nurse Practitioner; PCP Family Medicine; Visit Provider Internal Medicine Gastroenterology
PROC: (CPT 45385; principal; 2021-12-24 12:10)
DX: Z12.11 Encounter for screening for malignant neoplasm of colon (principal); Z86.010 Personal history of colon polyps; D12.3 Benign neoplasm of transverse colon; K57.30 Diverticulosis of large intestine without perforation or abscess without bleeding; K62.89 Other specified diseases of anus and rectum; K58.1 Irritable bowel syndrome with constipation; K21.9 Gastro-esophageal reflux disease without esophagitis; K29.50 Unspecified chronic gastritis without bleeding; E78.00 Pure hypercholesterolemia, unspecified; E11.9 Type 2 diabetes mellitus without complications; Z79.4 Long term (current) use of insulin; Z79.899 Other long term (current) drug therapy; Z90.49 Acquired absence of other specified parts of digestive tract; Z87.442 Personal history of urinary calculi; Z87.11 Personal history of peptic ulcer disease
CPT/HCPCS: 45385; 43239; 36415; 80048; 85027; 88305; 88342

== ENCOUNTER 2022-01-07 13:51 | Outpatient (REF) | payer MEDICAID, SELFPAY ==
[2022-01-07 15:58] LABS: Iron 22 mcg/dL (30-160)
[2022-01-07 16:11] LABS: Percent Iron Saturation 6 % (15-50); Total Iron Binding Capacity 350 mcg/dL (228-428); Unsaturated Iron Binding 328 ug/dL
[2022-01-07 16:18] LABS: TSH reflex Free T4 1.85 uIU/mL (0.32-4.0)
[2022-01-07 16:34] LABS: Folate 9.8 ng/mL (> or = 4.0); Vitamin B12 974 pg/mL (200-900)
[2022-01-10 12:32] LABS: Vitamin D 25-OH, D2 <4 ng/mL; Vitamin D 25-OH, D3 56 ng/mL; Vitamin D 25-OH, Total 56 ng/mL (30-100)
== END 2022-01-07 13:52 | disposition home or self-care (01) ==
LOC: HO.LAB 13:51
PROVIDERS: PCP Family Medicine; Referring Provider Family Medicine; Visit Provider Nurse Practitioner Family
DX: R19.7 Diarrhea, unspecified (principal); K92.2 Gastrointestinal hemorrhage, unspecified; K58.1 Irritable bowel syndrome with constipation; K21.9 Gastro-esophageal reflux disease without esophagitis; E55.9 Vitamin D deficiency, unspecified
CPT/HCPCS: 36415; 82306; 82607; 82746; 83540; 84443; 99212

== ENCOUNTER → 2022-02-07 13:03 | Outpatient (BNVA) | payer MEDICAID, SELFPAY | PROVIDERS: PCP Family Medicine | DX: Z13.89 Encounter for screening for other disorder (principal) ==

== ENCOUNTER → 2022-04-01 13:23 | Outpatient (BNVA) | payer MEDICAID, SELFPAY | PROVIDERS: PCP Family Medicine | DX: Z13.89 Encounter for screening for other disorder (principal) ==

== ENCOUNTER → 2022-04-05 13:27 | Outpatient (BNVA) | payer MEDICAID, SELFPAY | PROVIDERS: PCP Family Medicine; Referring Provider Family Medicine; Visit Provider Nurse Practitioner Family | DX: K58.1 Irritable bowel syndrome with constipation (principal); K21.9 Gastro-esophageal reflux disease without esophagitis; K59.01 Slow transit constipation | CPT/HCPCS: 99212 ==

== ENCOUNTER 2022-06-21 13:01 | Outpatient (REF) | payer MEDICAID, SELFPAY ==
[2022-06-21 13:44] LABS: Blood Urea Nitrogen 31 mg/dL (9-16); Estimated Glomerular Filt Rate 25
== END 2022-06-21 13:02 | disposition home or self-care (01) ==
LOC: HO.LAB 13:01
PROVIDERS: PCP Family Medicine
DX: D36.9 Benign neoplasm, unspecified site (principal)
CPT/HCPCS: 36415; 82565; 84520

== ENCOUNTER 2022-07-24 14:17 | Outpatient (REF) | payer MEDICAID, SELFPAY ==
[2022-07-24 14:42] LABS: MANUAL DIFF FLAG NO
[2022-07-24 15:10] LABS: Basophils Absolute Auto 0.1 X10*3/uL (0.0-0.2); Basophils Percent Auto 0.9 % (0-2); Eosinophils Absolute Auto 0.2 X10*3/uL (0.0-0.4); Eosinophils Percent Auto 2.2 % (0-4); Hematocrit 35.5 % (37.0-47.0); Hemoglobin 11.1 g/dl (12.0-16.0); Imm Gran Abs Auto 0.03 X10*3/uL (0.00-0.03); Imm Gran Pct Auto 0.4 % (0.0-0.4); Lymphocytes Absolute Auto 1.9 X10*3/uL (1.2-4.9); Lymphocytes Percent Auto 25.3 % (20-40); Mean Corpuscular HGB Conc 31.3 g/dl (31.0-35.0); Mean Corpuscular Hemoglobin 29.2 pg (27.0-33.0); Mean Corpuscular Volume 93.4 fL (80.0-98.0); Mean Platelet Volume 10.4 fL (9.4-12.3); Monocytes Absolute Auto 0.5 X10*3/uL (0.1-1.2); Monocytes Percent Auto 7.2 % (2-11); Neutrophils Absolute Auto 4.7 x10*3/uL (2.0-8.3); Platelet Count 272 X10*3/uL (160-400); Red Cell Distribution Width 13.7 % (11.0-16.0); White Blood Count 7.4 X10*3/uL (4.8-10.8)
[2022-07-24 15:38] LABS: Iron 41 mcg/dL (30-160); Percent Iron Saturation 15 % (15-50); Phosphorus 3.7 mg/dL (2.7-4.5); Total Iron Binding Capacity 267 mcg/dL (228-428); Unsaturated Iron Binding 226 ug/dL; Uric Acid 8.4 mg/dL (2.4-5.7)
[2022-07-24 16:00] LABS: Ferritin 248 ng/mL (10-250); Vitamin D 25-OH Total 55.5 ng/mL (>30)
[2022-07-24 16:04] LABS: Creatinine Urine 63.71 mg/dL; Microalbum/Creatinine Ratio Ur 70.6 ug/mg cr
[2022-07-24 17:46] LABS: Anion Gap 16 (12-20); Blood Urea Nitrogen 30 mg/dL (9-16); Calcium 8.7 mg/dL (8.4-10.2); Carbon Dioxide 23 mmol/L (22-29); Chloride 106 mmol/L (96-108); Estimated Glomerular Filt Rate 27; Potassium 4.6 mmol/L (3.3-5.1); Sodium 140 mmol/L (135-145)
[2022-07-25 14:03] LABS: Calcium (PTHI) 8.7 mg/dL (8.6-10.4); PTHI 84 pg/mL (16-77)
== END 2022-07-24 14:18 | disposition home or self-care (01) ==
LOC: HO.LAB 14:17
PROVIDERS: PCP Family Medicine; Visit Provider Internal Medicine Nephrology
DX: E11.22 Type 2 diabetes mellitus with diabetic chronic kidney disease (principal); N18.31 Chronic kidney disease, stage 3a; D63.1 Anemia in chronic kidney disease
CPT/HCPCS: 36415; 80051; 82043; 82306; 82310; 82565; 82728; 83540; 83970; 84100; 84520; 84550; 85025

== ENCOUNTER → 2022-08-02 14:18 | Outpatient (BNVA) | payer MEDICAID, SELFPAY | PROVIDERS: PCP Family Medicine; Referring Provider Family Medicine; Visit Provider Nurse Practitioner Family | DX: K58.1 Irritable bowel syndrome with constipation (principal); K21.9 Gastro-esophageal reflux disease without esophagitis | CPT/HCPCS: 99212 ==

== ENCOUNTER 2022-08-08 14:28 | Outpatient (REF) | payer MEDICAID, SELFPAY ==
[2022-08-15 16:56] LABS: Pancreatic Elastase-1 <15 mcg/g
== END 2022-08-08 14:29 | disposition home or self-care (01) ==
LOC: HO.LNP 14:28
PROVIDERS: Visit Provider Nurse Practitioner Family
DX: R10.9 Unspecified abdominal pain (principal)
CPT/HCPCS: 82656

== ENCOUNTER 2022-08-14 12:56 | Outpatient (REF) | payer MEDICAID, SELFPAY | END 2022-08-14 12:57 | disposition home or self-care (01) | LOC: HO.US 12:56 | DX: N28.89 Other specified disorders of kidney and ureter (principal) | CPT/HCPCS: 76775 ==

== ENCOUNTER → 2022-09-20 13:30 | Outpatient (BNVA) | payer MEDICAID, SELFPAY | PROVIDERS: PCP Family Medicine; Visit Provider Urology | DX: N28.1 Cyst of kidney, acquired (principal); N32.81 Overactive bladder; R32 Unspecified urinary incontinence; E11.22 Type 2 diabetes mellitus with diabetic chronic kidney disease; N18.9 Chronic kidney disease, unspecified | CPT/HCPCS: 51798; 99212 ==

== ENCOUNTER 2022-10-08 17:00 | Emergency (ER) | payer MEDICAID, SELFPAY ==
--- NOTE | ~2022-10-08 | XR_ITS ---
EXAMINATION: XR ankle RT 2V, XR hip RT w PEL1V, XR knee RT 4V CLINICAL INFORMATION: Reason for Exam pain, fall COMPARISON: Right ankle radiographs 12/22/2012, right knee radiographs 12/22/2012 TECHNIQUE: 3 views right ankle; 4 views right knee; AP pelvis and AP and frog-leg lateral views right hip FINDINGS: Right ankle: No acute fracture or dislocation. Small bone fragment adjacent to the medial malleolus consistent with remote avulsive injury. Ankle mortise is congruent and intact. No ankle joint effusion. Ankle and subtalar joint spaces are maintained. Osteoarthritic changes in the midfoot with joint space narrowing, subchondral sclerosis and subchondral cystic change at the naviculocuneiform articulations. Dorsal plate fixation screws seen across the base of the first metatarsal. Vascular calcifications noted. Right knee: Small joint effusion. No acute fracture or dislocation. Mild to moderate medial compartment joint space narrowing. Subchondral sclerosis and tricompartmental osteophyte formation consistent with osteoarthritis. No osseous lesion. Atherosclerotic vascular calcifications present. Pelvis and right hip: No acute fracture or dislocation. Bilateral hip joint spaces are maintained. Minimal acetabular rim marginal osteophyte formation at the right hip. The pubic symphysis and sacroiliac joints are congruent and intact. Disc degenerative changes at L4-L5 are seen. Atherosclerotic vascular calcifications noted. XR/XR ankle RT 2V IMPRESSION: 1. No acute fracture or dislocation at the right ankle. 2. Small knee joint effusion. No acute fracture identified at the knee. 3. No acute fracture or dislocation at the pelvis or right hip.
--- NOTE | ~2022-10-08 | XR_ITS ---
EXAMINATION: XR ankle RT 2V, XR hip RT w PEL1V, XR knee RT 4V CLINICAL INFORMATION: Reason for Exam pain, fall COMPARISON: Right ankle radiographs 12/22/2012, right knee radiographs 12/22/2012 TECHNIQUE: 3 views right ankle; 4 views right knee; AP pelvis and AP and frog-leg lateral views right hip FINDINGS: Right ankle: No acute fracture or dislocation. Small bone fragment adjacent to the medial malleolus consistent with remote avulsive injury. Ankle mortise is congruent and intact. No ankle joint effusion. Ankle and subtalar joint spaces are maintained. Osteoarthritic changes in the midfoot with joint space narrowing, subchondral sclerosis and subchondral cystic change at the naviculocuneiform articulations. Dorsal plate fixation screws seen across the base of the first metatarsal. Vascular calcifications noted. Right knee: Small joint effusion. No acute fracture or dislocation. Mild to moderate medial compartment joint space narrowing. Subchondral sclerosis and tricompartmental osteophyte formation consistent with osteoarthritis. No osseous lesion. Atherosclerotic vascular calcifications present. Pelvis and right hip: No acute fracture or dislocation. Bilateral hip joint spaces are maintained. Minimal acetabular rim marginal osteophyte formation at the right hip. The pubic symphysis and sacroiliac joints are congruent and intact. Disc degenerative changes at L4-L5 are seen. Atherosclerotic vascular calcifications noted. XR/XR knee RT 4V IMPRESSION: 1. No acute fracture or dislocation at the right ankle. 2. Small knee joint effusion. No acute fracture identified at the knee. 3. No acute fracture or dislocation at the pelvis or right hip.
--- NOTE | ~2022-10-08 | XR_ITS ---
EXAMINATION: XR ankle RT 2V, XR hip RT w PEL1V, XR knee RT 4V CLINICAL INFORMATION: Reason for Exam pain, fall COMPARISON: Right ankle radiographs 12/22/2012, right knee radiographs 12/22/2012 TECHNIQUE: 3 views right ankle; 4 views right knee; AP pelvis and AP and frog-leg lateral views right hip FINDINGS: Right ankle: No acute fracture or dislocation. Small bone fragment adjacent to the medial malleolus consistent with remote avulsive injury. Ankle mortise is congruent and intact. No ankle joint effusion. Ankle and subtalar joint spaces are maintained. Osteoarthritic changes in the midfoot with joint space narrowing, subchondral sclerosis and subchondral cystic change at the naviculocuneiform articulations. Dorsal plate fixation screws seen across the base of the first metatarsal. Vascular calcifications noted. Right knee: Small joint effusion. No acute fracture or dislocation. Mild to moderate medial compartment joint space narrowing. Subchondral sclerosis and tricompartmental osteophyte formation consistent with osteoarthritis. No osseous lesion. Atherosclerotic vascular calcifications present. Pelvis and right hip: No acute fracture or dislocation. Bilateral hip joint spaces are maintained. Minimal acetabular rim marginal osteophyte formation at the right hip. The pubic symphysis and sacroiliac joints are congruent and intact. Disc degenerative changes at L4-L5 are seen. Atherosclerotic vascular calcifications noted. XR/XR hip RT w PEL1V IMPRESSION: 1. No acute fracture or dislocation at the right ankle. 2. Small knee joint effusion. No acute fracture identified at the knee. 3. No acute fracture or dislocation at the pelvis or right hip.
[2022-10-08 19:22] VITALS: BP 151/87; PULSE 110; RESP 16; TEMP 36; O2SAT 98; BMI 36.6
--- NOTE | 2022-10-08 19:26 | ED_ITS ---
HPI - General Adult General Chief complaint: Fall <Nicole Issa MD - Last Filed: 10/08/22 19:32> Stated complaint: Fell @ home right leg <Nicole Issa MD - Last Filed: 10/08/22 19:32> Time Seen by Provider: 10/08/22 21:07 <Nicole Issa MD - Last Filed: 10/08/22 19:32> Source: patient and family <Amee Grewal MD - Last Filed: 10/08/22 21:31> Mode of arrival: ambulatory <Amee Grewal MD - Last Filed: 10/08/22 21:31> Limitations: no limitations <Amee Grewal MD - Last Filed: 10/08/22 21:31> History of Present Illness HPI narrative: Patient comes to the emergency room complaining of right-sided hip pain, right knee pain and right ankle pain. Patient states that she was walking, she somehow fell by tripping over her own feet. Patient states that she is supposed to be using a cane at home but she never does because she walks well without it. Patient denies hitting her head, no loss of consciousness. Patient denies headache, neck pain, chest or back pain. Patient is not on any blood thinners. <Amee Grewal MD - Last Filed: 10/08/22 21:31> Related Data Home medications: Home Medications Medication Instructions Recorded Confirmed atorvastatin 20 mg tablet 20 mg PO DAILY 07/20/21 12/18/21 cetirizine 10 mg tablet 10 mg PO DAILY 07/20/21 12/18/21 insulin degludec 100 unit/mL (3 90 unit subcut BEDTIME 07/20/21 12/18/21 mL) subcutaneous pen (Tresiba FlexTouch U-100 insulin) insulin lispro 100 unit/mL 14 unit subcut TID 07/20/21 12/18/21 subcutaneous pen (Humalog KwikPen (U-100) Insulin) dapagliflozin 10 mg tablet 1 tab PO DAILY 12/18/21 12/18/21 ([facility]) fluticasone propionate 50 1 spray intranasal DAILY 12/18/21 12/18/21 mcg/actuation nasal spray,suspension metformin 500 mg tablet 1 tab PO BID 12/18/21 12/18/21 ipratropium bromide 42 mcg (0.06 1 spray intranasal TID 04/01/22 %) nasal spray estradiol 0.01% (0.1 mg/gram) 1 g vaginal 2XW 06/06/22 vaginal cream famotidine 20 mg tablet 40 mg PO BEDTIME 08/02/22 08/02/22 Previous Rx's Medication Instructions Recorded oxybutynin chloride 5 mg 5 mg PO DAILY 30 days #30 tabs 02/07/22 tablet,extended release 24 hr hydrocortisone 2.5 % topical cream 1 appl IL BID-QID PRN hemorrhoids 08/27/22 with perineal applicator #30 grams (Proctosol HC) pantoprazole 20 mg tablet,delayed 20 mg PO DAILY #30 tabs 10/08/22 release <Nicole Issa MD - Last Filed: 10/08/22 19:32> Allergies/adverse reactions: Allergies Allergy/AdvReac Type Severity Reaction Status Date / Time Pork/Porcine Containing Allergy Mild SORES Verified 10/08/22 19:30 Products /ITCHING [Pork/Porcine Product Derivatives] nickel AdvReac Swelling Verified 10/08/22 19:30 and irritation seasonal Allergy Unknown Itchy Eyes Uncoded 10/08/22 19:30 <Nicole Issa MD - Last Filed: 10/08/22 19:32> Review of Systems Review of Systems: Constitutional : No Weight loss, No Fever, No Chills, No Night Sweats, No Fatigue, No Malaise ENT/Mouth : No Hearing loss, No Ear Pain, No Nasal Congestion, No Sinus Pain, No Hoarseness, No sore throat, No Rhinorrhea, No Swallowing Difficulty Eyes: No Eye Pain, No Swelling, No Redness, No Foreign Body, No Discharge, No Vision Changes Cardiovascular : No Chest Pain, No SOB, No Dyspnea on Exertion, No Orthopnea, No Edema, No Palpitations Respiratory : No Cough, No Sputum, No Wheezing, No Smoke Exposure, No Dyspnea Gastrointestinal : No Nausea, No Vomiting, No Diarrhea, No Constipation, No abdominal Pain, No Hematochezia, No Melena Genitourinary : no irregular bleeding, No Dysuria, No Urinary Frequency, No Hematuria, No Urinary Incontinence, No Urgency, No Flank Pain, No Urinary Flow Changes, No Hesitancy Musculoskeletal : Patient complaining of right-sided hip pain, right knee pain and right ankle pain. No Myalgias, No Joint Swelling Skin : No Skin Lesions, No rash Neuro : No Weakness, No Numbness, No Paresthesias, No Loss of Consciousness, No Dizziness, No Headache Psych : No Anxiety/Panic, No Depression, No SI/HI/AH/VH, No Social Issues, Heme/Lymph: No Bruising, No Bleeding,No Lymphadenopathy Endocrine : No Polyuria, No Polydipsia, No Temperature Intolerance <Amee Grewal MD - Last Filed: 10/08/22 21:31> [facility] Past Medical History Medical History: Medical History Anemia Bladder prolapse, female, acquired CKD (chronic kidney disease) Diabetes GERD (gastroesophageal reflux disease) High cholesterol Hx of gastric ulcer IBS (irritable bowel syndrome) Kidney stones Renal cyst Tubular adenoma <Nicole Issa MD - Last Filed: 10/08/22 19:32> Surgical History: Surgical History History of partial hysterectomy Hx of breast reduction, elective Hx of cholecystectomy Hx of colonoscopy Hx of endoscopy <Nicole Issa MD - Last Filed: 10/08/22 19:32> Family History Family History: Family History Other No pertinent family history <Nicole Issa MD - Last Filed: 10/08/22 19:32> Social History Social History: Social History Household Members: Spouse Housing: Apartment Alcohol intake: never Patient Tobacco Use Status: Never used Tobacco Second Hand Smoke Exposure: No Advance Directives: No Advance Directives Information Provided: No <Nicole Issa MD - Last Filed: 10/08/22 19:32> Physical Exam ED Vital Signs: Vital Signs - 24 hr 10/08/22 19:22 10/08/22 20:40 Temperature 96.8 F 98.1 F Pulse Rate 110 H 96 Respiratory Rate 16 18 Blood Pressure 151/87 H 117/67 Pulse Oximetry 98 95 Oxygen Delivery Method Room Air Room Air BMI result Body Mass Index 36.6 <Nicole Issa MD - Last Filed: 10/08/22 19:32> Vital Signs - 24 hr 10/08/22 19:22 10/08/22 20:40 Temperature 96.8 F 98.1 F Pulse Rate 110 H 96 Respiratory Rate 16 18 Blood Pressure 151/87 H 117/67 Pulse Oximetry 98 95 Oxygen Delivery Method Room Air Room Air BMI result Body Mass Index 36.6 <Amee Grewal MD - Last Filed: 10/08/22 21:31> Const Other: Appearance: Alert. Oriented X3. No acute distress. Well-appearing Eyes: Pupils equal, round and reactive to light. ENT: Pharynx normal. Neck: Normal inspection. Neck supple. No lymph nodes noted. No crepitus CVS: Normal heart rate and rhythm. Pulses normal. Normal S1 and S2 Respiratory: No respiratory distress. Breath sounds normal. No Wheezing. No rales Abdomen: Soft and nontender. No rigidity. No distention. Skin: Skin warm and dry. Normal skin color. Normal skin turgor. Extremities: No lower extremity edema. Very mild swelling to the lateral malleolus on the right ankle, no significant effusion by the right knee. Patient able to bear weight, using her cane. Neuro: Oriented X 3. No motor deficit. No sensory deficit. Moving all extremities. No slurred speech. CN 2 through 12 grossly intact Psych: calm, cooperative, normal affect <Amee Grewal MD - Last Filed: 10/08/22 21:31> Course Course Course Narrative: 61F stepped on her own foot leading her to fall, but denies head strike/LOC/blood thinners. Able to bear weight, but having right knee pain and right ankle pain. VITAL SIGNS: Reviewed. GENERAL: Well developed, well nourished, in no acute distress. HEAD: Normocephalic/atraumatic LUNGS: Normal breath sounds. No adventitious sounds or accessory muscle use. CARDIOVASCULAR: Regular rate and rhythm without noted murmurs, no JVD or lower extremity edema. ABDOMEN: Soft, non-tender, non-distended with bowel sounds. MUSCULOSKELETAL: No tenderness, deformities, or effusions noted on gross inspection. EXTREMITIES: No cyanosis, clubbing or edema;RLE: Ecchymosis without swelling or erythema noted at the knee, palpable DP/PT at ankle with minimal swelling noted at the lateral malleolus. SKIN: Inspection of the skin reveals no rashes NEUROLOGIC: Alert and oriented x 4. Strength and sensation to light touch were grossly intact x 4. <Nicole Issa MD - Last Filed: 10/08/22 19:32> 61F stepped on her own foot leading her to fall, but denies head strike/LOC/blood thinners. Able to bear weight, but having right knee pain and right ankle pain. VITAL SIGNS: Reviewed. GENERAL: Well developed, well nourished, in no acute distress. HEAD: Normocephalic/atraumatic LUNGS: Normal breath sounds. No adventitious sounds or accessory muscle use. CARDIOVASCULAR: Regular rate and rhythm without noted murmurs, no JVD or lower extremity edema. ABDOMEN: Soft, non-tender, non-distended with bowel sounds. MUSCULOSKELETAL: No tenderness, deformities, or effusions noted on gross inspection. EXTREMITIES: No cyanosis, clubbing or edema;RLE: Ecchymosis without swelling or erythema noted at the knee, palpable DP/PT at ankle with minimal swelling noted at the lateral malleolus. SKIN: Inspection of the skin reveals no rashes NEUROLOGIC: Alert and oriented x 4. Strength and sensation to light touch were grossly intact x 4. I discussed the x-rays with the patient and her daughter, no fractures. Patient is able to walk by using her cane. Patient states that she has ibuprofen and Tylenol at home, states she feels fairly well. Discussed with the patient that if he is not getting any better within next few days, she may need an MRI for her knee. <Amee Grewal MD - Last Filed: 10/08/22 21:31> Medications Administered Discontinued Medications Generic Name Dose Route Start Last Admin Trade Name Freq PRN Reason Stop Dose Admin Acetaminophen 650 mg 10/08/22 20:39 10/08/22 20:46 Acetaminophen 325 Mg Tablet PO 10/08/22 20:40 650 mg ONCE ONE Administration <Nicole Issa MD - Last Filed: 10/08/22 19:32> Medications Administered Discontinued Medications Generic Name Dose Route Start Last Admin Trade Name Freq PRN Reason Stop Dose Admin Acetaminophen 650 mg 10/08/22 20:39 10/08/22 20:46 Acetaminophen 325 Mg Tablet PO 10/08/22 20:40 650 mg ONCE ONE Administration <Amee Grewal MD - Last Filed: 10/08/22 21:31> Discharge Plan Discharge Clinical Impression: Multiple contusions, Fall <Nicole Issa MD - Last Filed: 10/08/22 19:32> Patient Disposition: Home, Self-Care <Nicole Issa MD - Last Filed: 10/08/22 19:32> Instructions: Hip Contusion (ED), Knee Pain (ED) <Nicole Issa MD - Last Filed: 10/08/22 19:32> Additional Instructions: Please follow-up with your primary care physician tomorrow. If you have any worsening or new symptoms, please return to the emergency room or call 911 <Nicole Issa MD - Last Filed: 10/08/22 19:32> Prescriptions: No Action hydrocortisone [Proctosol HC] 2.5 % cream with perineal applicator 1 appl IL BID-QID PRN (Reason: hemorrhoids) Qty: 30 3RF pantoprazole 20 mg tablet,delayed release (DR/EC) 20 mg PO DAILY Qty: 30 2RF metformin 500 mg tablet 1 tab PO BID fluticasone propionate 50 mcg/actuation spray,suspension 1 spray intranasal DAILY Farxiga 10 mg tablet 1 tab PO DAILY insulin lispro [Humalog KwikPen Insulin] 100 unit/mL insulin pen 14 unit subcut TID Tresiba FlexTouch U-100 100 unit/mL (3 mL) insulin pen 90 unit subcut BEDTIME cetirizine 10 mg tablet 10 mg PO DAILY atorvastatin 20 mg tablet 20 mg PO DAILY oxybutynin chloride 5 mg tablet extended release 24 hr 5 mg PO DAILY 30 Days Qty: 30 3RF ipratropium bromide 42 mcg (0.06 %) spray,non-aerosol 1 spray intranasal TID famotidine 20 mg tablet 40 mg PO BEDTIME estradiol 0.01 % (0.1 mg/gram) cream 1 g vaginal 2XW <Nicole Issa MD - Last Filed: 10/08/22 19:32>
[2022-10-08 20:40] VITALS: BP 117/67; PULSE 96; RESP 18; TEMP 36.7; O2SAT 95
[2022-10-08] MEDS: Acetaminophen 325 MG TABLET 650 MG PO (20:46)
--- NOTE | 2022-10-08 20:47 | PC.NURSE ---
pt retriaged, reporting worsening right knee pain, medicated w PO tylenol.
== END 2022-10-08 21:37 | disposition home or self-care (01) ==
PROVIDERS: Emergency Provider Emergency Medicine; PCP Family Medicine
DX: S20.213A Contusion of bilateral front wall of thorax, initial encounter (principal); S70.212A Abrasion, left hip, initial encounter; S70.211A Abrasion, right hip, initial encounter; M25.562 Pain in left knee; M25.561 Pain in right knee; M54.50 Low back pain, unspecified; W01.0XXA Fall on same level from slipping, tripping and stumbling without subsequent striking against object, initial encounter; Y93.9 Activity, unspecified; Y92.9 Unspecified place or not applicable; Y99.9 Unspecified external cause status; Z79.899 Other long term (current) drug therapy
CPT/HCPCS: 73502; 73564; 73600; 99283

== ENCOUNTER 2022-10-25 13:37 | Outpatient (REF) | payer MEDICAID, SELFPAY ==
--- NOTE | ~2022-10-25 | MR_ITS ---
EXAMINATION: MR KNEE WITHOUT CONTRAST, RIGHT CLINICAL INFORMATION: Anterior and medial right knee pain. Swelling. Instability. COMPARISON: Right knee radiographs dated 10/08/2022. TECHNIQUE: MRI of the knee without contrast was performed using routine sequences on a high-field scanner. FINDINGS: MENISCI: MEDIAL MENISCUS: Inner margin fraying/tearing of the posterior horn and root. LATERAL MENISCUS: Probable attenuation/fraying of the posterior root. LIGAMENTS: CRUCIATE: Intact COLLATERAL: Intact EXTENSOR MECHANISM: Intact quadriceps and patellar tendons. Normal patellofemoral alignment. ARTICULAR CARTILAGE/BONE: PATELLOFEMORAL COMPARTMENT: Full-thickness articular cartilage loss at the patellar median ridge and lateral patellar facet as well as at the lateral trochlea with underlying subchondral cystic change and marrow edema. Marginal osteophytes. MEDIAL COMPARTMENT: Articular cartilage signal heterogeneity and surface irregularity. Focus of the posterior weightbearing full-thickness loss with a small central osteophyte and subchondral cystic change. Marginal osteophytes. LATERAL COMPARTMENT: Articular cartilage signal heterogeneity and surface irregularity with small marginal osteophytes. JOINT FLUID AND BURSAE: Small joint effusion and small Delacruz's cyst with mild synovitis. MR/MR knee RT wo con IMPRESSION: 1. Inner margin fraying/tearing of the medial meniscus posterior horn and root. 2. Probable attenuation/fraying of the lateral meniscus posterior root. 3. [id number] patellofemoral as well as mild medial and lateral compartment osteoarthritis. Small joint effusion and small Delacruz's cyst with mild synovitis.
== END 2022-10-25 13:38 | disposition home or self-care (01) ==
LOC: HO.MRI 13:37
PROVIDERS: Visit Provider Registered Nurse
DX: M25.561 Pain in right knee (principal)
CPT/HCPCS: 73721

== ENCOUNTER → 2022-11-01 12:56 | Outpatient (BNVA) | payer MEDICAID, SELFPAY | PROVIDERS: PCP Family Medicine; Visit Provider Nurse Practitioner Family | DX: K21.9 Gastro-esophageal reflux disease without esophagitis (principal); K58.1 Irritable bowel syndrome with constipation; R14.0 Abdominal distension (gaseous); K86.89 Other specified diseases of pancreas; N18.9 Chronic kidney disease, unspecified; Z90.49 Acquired absence of other specified parts of digestive tract | CPT/HCPCS: 99212 ==

== ENCOUNTER → 2022-12-04 13:58 | Outpatient (BNVA) | payer MEDICAID, SELFPAY | PROVIDERS: PCP Family Medicine; Visit Provider Physician Assistant | DX: M17.11 Unilateral primary osteoarthritis, right knee (principal) | CPT/HCPCS: 99202 ==

== ENCOUNTER → 2022-12-06 13:36 | Outpatient (BNVA) | payer MEDICAID, SELFPAY | PROVIDERS: PCP Family Medicine; Visit Provider Nurse Practitioner Family | DX: K86.89 Other specified diseases of pancreas (principal); K58.1 Irritable bowel syndrome with constipation; K21.9 Gastro-esophageal reflux disease without esophagitis | CPT/HCPCS: 99212 ==

== ENCOUNTER 2022-12-23 11:08 | Outpatient (REF) | payer MEDICAID, SELFPAY ==
--- NOTE | ~2022-12-23 | MR_ITS ---
EXAMINATION: MR ABDOMEN WITHOUT AND WITH CONTRAST CLINICAL INFORMATION: Other specified diseases of the pancreas COMPARISON: MR abdomen 10/05/2021 TECHNIQUE: MRI of the abdomen before and after the IV administration of 10 mL of Gadavist was obtained using routine sequences. Heavily T2 weighted MRCP sequences were also obtained. FINDINGS: LUNG BASES: The visualized lung bases are unremarkable. KIDNEYS AND URETERS: Unremarkable. GALLBLADDER: Status post cholecystectomy. LIVER AND BILIARY TREE: There is relative T2 hypointense signal of the liver with loss of signal on in phase imaging suggesting iron deposition. Common bile duct measures 6 mm which is within normal limits. No intrahepatic biliary dilatation. No intraluminal filling defect to suggest choledocholithiasis. PANCREAS: No pancreatic duct dilatation or variant pancreatic ductal anatomy. No pancreatic mass. No peripancreatic inflammatory change. SPLEEN: Unremarkable ADRENAL GLANDS: Unremarkable GASTROINTESTINAL TRACT: Unremarkable. LYMPH NODES: No lymphadenopathy. VASCULAR: Unremarkable ABDOMINAL WALL: Unremarkable. OSSEOUS STRUCTURES: Unremarkable. MR/MR abdomen wo/w con IMPRESSION: Unremarkable MR appearance of the pancreas. Liver signal abnormalities as detailed above suggesting evidence of iron deposition.
== END 2022-12-23 11:09 | disposition home or self-care (01) ==
LOC: HO.MRI 11:08
PROVIDERS: Visit Provider Nurse Practitioner Family
DX: K86.89 Other specified diseases of pancreas (principal)
CPT/HCPCS: 74183; A9585

== ENCOUNTER 2023-02-25 12:55 | Outpatient (REF) | payer MEDICAID, SELFPAY ==
[2023-02-25 14:19] LABS: Iron 47 mcg/dL (30-160); Percent Iron Saturation 18 % (15-50); Total Iron Binding Capacity 255 mcg/dL (228-428); Unsaturated Iron Binding 208 ug/dL
[2023-02-25 14:33] LABS: Ferritin 181 ng/mL (10-250)
== END 2023-02-25 12:56 | disposition home or self-care (01) ==
LOC: HO.LAB 12:55
PROVIDERS: PCP Family Medicine; Visit Provider Nurse Practitioner Family
DX: K92.2 Gastrointestinal hemorrhage, unspecified (principal); R74.8 Abnormal levels of other serum enzymes; R93.5 Abnormal findings on diagnostic imaging of other abdominal regions, including retroperitoneum
CPT/HCPCS: 36415; 81256; 82728; 83540

== ENCOUNTER 2023-03-05 13:06 | Outpatient (REF) | payer MEDICAID, SELFPAY | END 2023-03-05 13:07 | disposition home or self-care (01) | LOC: HO.LAB 13:06 | PROVIDERS: PCP Family Medicine; Visit Provider Urology | DX: R31.29 Other microscopic hematuria (principal); N32.81 Overactive bladder; N39.0 Urinary tract infection, site not specified; E11.9 Type 2 diabetes mellitus without complications; Z79.4 Long term (current) use of insulin; Z79.899 Other long term (current) drug therapy | CPT/HCPCS: 87086; 99212 ==

== ENCOUNTER → 2023-03-07 13:01 | Outpatient (BNVA) | payer MEDICAID, SELFPAY | PROVIDERS: PCP Family Medicine; Visit Provider Nurse Practitioner Family | DX: K21.9 Gastro-esophageal reflux disease without esophagitis (principal); K58.1 Irritable bowel syndrome with constipation; K86.89 Other specified diseases of pancreas | CPT/HCPCS: 99212 ==

== ENCOUNTER 2023-05-07 12:48 | Outpatient (AMB) | payer MEDICAID, SELFPAY ==
[2023-05-07 12:52] VITALS: BP 132/65; PULSE 86; BMI 37.3
--- NOTE | 2023-05-07 12:52 | MHC.OFFVIS ---
Intake Vital Signs 05/07/23 12:52 Height 5 ft 2 in Weight 203 lb 11.314 oz BMI 37.3 BP 132/65 Blood Pressure Location Lt brachial Position Sitting Pulse 86 Intake Visit Reasons: 2 month fu Intake Note: Ese presents in office as a est.patient for a 2month f/u for pancreatic insufficiency PT CC: Patient states the gas has not changed, and feels like her abdomen is expanding all the time. She states she feels like the pantoprazole is not working because the situation with my stomach is the same . She states that on 04/25 she received qty of 15 and she ran out of the medication but pharmacy is saying PT already received the Famotidine. [employer] Supervisor Required: No Allergies Pork/Porcine Containing Products [Pork/Porcine Product Derivatives] Allergy (Mild, Verified 05/07/23 12:57) SORES /ITCHING nickel Adverse Reaction (Verified 05/07/23 12:57) Swelling and irritation seasonal Allergy (Unknown, Uncoded 03/07/23 13:13) Itchy Eyes HPI 2 month fu HPI Details LAST VISIT: (1) GERD (gastroesophageal reflux disease): ?Code(s): K21.9 - Gastro-esophageal reflux disease without esophagitis ?Qualifiers: ?Esophagitis presence:?esophagitis presence not specified? Qualified Code(s):?K21.9 - Gastro-esophageal reflux disease without esophagitis ?Plan: Will change patient's PPI to Nexium to see if her symptoms will get better.? Also discussed with patient avoiding dietary triggers.? Staying upright for minimum 3 hours discussed with patient.? Patient states that she is trying to weigh going to the gym. (2) IBS (irritable bowel syndrome): ?Code(s): K58.9 - Irritable bowel syndrome without diarrhea ?Qualifiers: ?Irritable bowel syndrome type:?with constipation? Qualified Code(s):?K58.1 - Irritable bowel syndrome with constipation ?Plan: Continue with current bowel regimen discussed with patient low FODMAP diet and list of food recommended as well as risk of food to avoid. (3) Pancreatic insufficiency: ?Code(s): K86.89 - Other specified diseases of pancreas ?Plan: Continue be given pancreatic enzymes.? Patient can take 1-2 capsules with meals.? Food low in fat discussed with patient.? Patient will go for liver panel again.? History of transaminitis.? Will also check PT and INR just in case we might send her for liver biopsy.? Will also try to rule out hemochromatosis next visit.? I will see her in 3 months, sooner on as needed basis.? Patient is agreeable to this plan and verbalizes understanding of instructions.? She was given the opportunity to ask questions and all questions answered.? TODAY'S VISIT Patient is here today for follow-up. Patient reports that she has been feeling the same. Unable to get Nexium due to insurance. Patient was given pantoprazole. States that pantoprazole is not as effective as omeprazole when she took that in the past. Patient states that she received famotidine only for 15 days. Patient states that her symptoms of epigastric discomfort postprandially and acid reflux continue. Patient denies any nausea or vomiting. Reports dyspepsia without dysphagia or odynophagia. Patient also reports abdominal bloating. Patient is aware that she has pancreatic insufficiency and her symptoms will continue if she continues to eat food that is high in fat. Patient is taking be given enzymes and reports that she has not really noticed much of affect. Patient denies melena, hematochezia, unintentional weight loss or ribbon like stools. Patient states that she is moving her bowels well without any issues. Patient did not get her blood work done (liver enzymes and lipase) [facility] Medical History Anemia Bladder prolapse, female, acquired CKD (chronic kidney disease) Diabetes GERD (gastroesophageal reflux disease) High cholesterol Hx of gastric ulcer IBS (irritable bowel syndrome) Kidney stones Pancreatic insufficiency Pancreatic insufficiency Renal cyst Tubular adenoma Surgical History History of partial hysterectomy Hx of breast reduction, elective Hx of cholecystectomy Hx of colonoscopy Hx of endoscopy Family History Other No pertinent family history Social History Household Members: Spouse Housing: Apartment Alcohol intake: never Patient Tobacco Use Status: Never used Tobacco Smoked in Last 30 Days: No Second Hand Smoke Exposure: No Use of substances other than those prescribed or required for medical reasons: No Advance Directives: No Advance Directives Information Provided: Yes Review of Systems Const Denies weight gain and Denies weight loss ENT Reports no additional complaints, Denies dysphagia and Denies odynophagia Card Reports no additional complaints Resp Reports no additional complaints GI Reports abdominal pain (epigastric), Denies belching, Denies melena, Denies bloating, Denies change in bowel habits, Denies dysphagia, Denies excessive flatus, Denies dyspepsia, Reports heartburn, Denies diarrhea, Denies loose stools, Denies nausea, Denies odynophagia and Denies vomiting Reports no additional complaints Musc Reports no additional complaints Neuro Reports no additional complaints Psych Reports no additional complaints Endo Reports no additional complaints Physical Exam Vital Signs: Last Vital Signs Pulse 86 05/07/23 12:52 BP 132/65 05/07/23 12:52 BMI result Body Mass Index 37.3 Const General: healthy appearing, no acute distress and well developed Nutritional Appearance: obese Orientation/consciousness: patient oriented x3 HEENT Head: Yes normal to inspection, Yes normocephalic and Yes atraumatic Face and sinus: Yes normal facial exam Mouth: Normal oral and palatal mucosa present Throat: Yes posterior oropharynx normal, Yes tonsils normal and Yes uvula midline Eyes General: appearance normal, both eyes and all related structures Neck Neck: Yes normal visual inspection, Yes full ROM and Yes trachea midline Thyroid: Thyroid normal Resp Effort & Inspection: normal respiratory effort, able to speak in complete sentences, no tracheal deviation and symmetric chest movement Auscultation: clear to auscultation bilaterally Cardio Rate: regular rate Heart sounds: S1 normal heart sound present and S2 normal heart sound present GI Inspection: Yes normal to inspection, No distended and Yes obesity Palpation (GI): Soft to palpation, not firm, nontender and No hepatosplenomegaly present Auscultation: normal bowel sounds General: Yes no CVA tenderness Back/Spine/Pelvis Back: no CVA tenderness Skin General skin exam: elasticity normal, turgor normal and dry skin Neuro General: patient oriented x3 Psych Appearance: grossly normal Mental Status: mental status grossly normal Speech and movement: Normal speech and movement present Affect: normal affect Thought process: Normal thought process present Assessment & Plan Assessment & Plan (1) GERD (gastroesophageal reflux disease): Code(s): K21.9 - Gastro-esophageal reflux disease without esophagitis Qualifiers: Esophagitis presence: esophagitis presence not specified Qualified Code(s): K21.9 - Gastro-esophageal reflux disease without esophagitis Plan: Will change pantoprazole to omeprazole. Patient was encouraged to avoid dietary triggers and late night snacking. Will get her script for famotidine at bedtime. (2) Pancreatic insufficiency: Code(s): K86.89 - Other specified diseases of pancreas Plan: Continue enzyme treatment. (3) IBS (irritable bowel syndrome): Code(s): K58.9 - Irritable bowel syndrome without diarrhea Qualifiers: Irritable bowel syndrome type: with constipation Qualified Code(s): K58.1 - Irritable bowel syndrome with constipation Plan: Low FODMAP diet discussed with patient. List of food to avoid as well as list of food recommended given to patient. I will see patient in 4 months, sooner on as needed basis. Patient is agreeable to this plan and verbalizes understanding of instructions. She was given the opportunity to ask questions and all questions answered. Thank you for allowing me to participate in her care Medications: New famotidine 20 mg PO BEDTIME 90 tabs 2RF omeprazole 40 mg (2 x 20 mg) PO DAILY 180 tabs 2RF K21.9 - Gastro-esophageal reflux disease without esophagitis Discontinued pantoprazole Discontinued Reason: Doctor's Order 20 mg PO DAILY 30 tabs 2RF Coding Level of Care Code Est Pt Level 3 (05380) Diagnoses GERD (gastroesophageal reflux disease) K21.9 Esophagitis presence: esophagitis presence not specified Pancreatic insufficiency K86.89 IBS (irritable bowel syndrome) K58.1 Irritable bowel syndrome type: with constipation Time Spent (min) 30 Comment 20 minutes spent with patient and additional 10 minutes spent reviewing her records
== END 2023-05-07 13:46 | disposition home or self-care (01) ==
PROVIDERS: PCP Family Medicine; Visit Provider Nurse Practitioner Family
DX: K21.9 Gastro-esophageal reflux disease without esophagitis (principal); K86.89 Other specified diseases of pancreas; K58.1 Irritable bowel syndrome with constipation
CPT/HCPCS: 99213

== ENCOUNTER → 2023-05-07 12:48 | Outpatient (BNVA) | payer MEDICAID, SELFPAY | PROVIDERS: PCP Family Medicine; Visit Provider Nurse Practitioner Family | DX: K21.9 Gastro-esophageal reflux disease without esophagitis (principal); K86.89 Other specified diseases of pancreas; K58.1 Irritable bowel syndrome with constipation | CPT/HCPCS: 99213 ==

== ENCOUNTER 2023-05-22 13:07 | Emergency (ER) | payer MEDICAID, SELFPAY ==
--- NOTE | ~2023-05-22 | US_ITS ---
EXAMINATION: US VENOUS ULTRASOUND WITH DOPPLER LOWER EXTREMITY, LEFT CLINICAL INFORMATION: Left foot edema. Left lower extremity edema COMPARISON: None available. TECHNIQUE: Ultrasound of the deep veins is performed from the hip to the calf with compression sonography and color and pulse Doppler assessment. Spectral analysis with color-flow imaging is performed. FINDINGS: There is normal venous compression and respiratory variation and augmented flow. The visualized common femoral vein, superficial femoral vein, profunda femoral vein, popliteal vein, and the trifurcation region shows no evidence of deep venous thrombosis. 3 peroneal vein is not visualized. There is no significant popliteal fossa cyst. If the patient's symptoms persist, followup ultrasound in 5 days 7 days might be of value to exclude proximal propagation from a non-visualized calf vein. US/US venous duplex LE IMPRESSION: No DVT demonstrated in the left lower extremity.
--- NOTE | ~2023-05-22 | XR_ITS ---
EXAMINATION: XR FOOT, LEFT CLINICAL INFORMATION: Foot pain and swelling COMPARISON: Left foot 12/09/2011 TECHNIQUE: AP, lateral, and oblique views of the left foot. FINDINGS: There is mild hallux valgus. Mild degenerative changes are present at the interphalangeal joints. Marked degenerative changes are seen at the CMC joints predominantly involving the second and third digits. Findings are significantly worse when compared to the 2012 study. No fractures or dislocations. No ankle joint effusion. XR/XR foot LT min 3V IMPRESSION: Degenerative changes as described above with mild hallux valgus. No evidence of an acute injury.
--- NOTE | 2023-05-22 13:17 | ED_ITS ---
HPI - General Adult General Chief complaint: Extremity Injury, Lower Stated complaint: l foot swelling no inj Time Seen by Provider: 05/22/23 17:08 Source: patient, RN notes reviewed and old records reviewed Mode of arrival: ambulatory History of Present Illness HPI narrative: 62-year-old female with a past medical history arthritis, pancreatic insufficiency, diabetes, GERD, IBS, presenting to the ED complaining of acute on chronic left foot pain and swelling x months. Reports intermittent swelling, atraumatic, worsen last night with difficulty ambulating secondary to pain. Reports pain shoots up left leg. Denies numbness, tingling, weakness, fever/chills, calf pain, recent travel, history of clots, SOB/CP. Denies taking anticoagulation or diuretic Onset (ago): month(s) Related Data Home Medications Medication Instructions Recorded Confirmed atorvastatin 20 mg tablet 20 mg PO DAILY 07/20/21 03/05/23 cetirizine 10 mg tablet 10 mg PO DAILY 07/20/21 03/05/23 insulin degludec 100 unit/mL (3 90 unit subcut BEDTIME 07/20/21 03/05/23 mL) subcutaneous pen (Tresiba FlexTouch U-100 insulin) insulin lispro 100 unit/mL 14 unit subcut TID 07/20/21 03/05/23 subcutaneous pen (Humalog KwikPen (U-100) Insulin) dapagliflozin propanediol 10 mg 1 tab PO DAILY 12/18/21 03/05/23 tablet (Farxiga) fluticasone propionate 50 1 spray intranasal DAILY 12/18/21 03/05/23 mcg/actuation nasal spray,suspension estradiol 0.01% (0.1 mg/gram) 1 g vaginal 2XW 06/06/22 03/05/23 vaginal cream ascorbic acid (vitamin C) 1,000 mg 1,000 mg PO DAILY 05/07/23 tablet cholecalciferol (vitamin D3) 25 25 mcg PO DAILY 05/07/23 mcg (1,000 unit) capsule cleansing tea PO DAILY 05/07/23 digestive enzymes 1 cap PO BID 05/07/23 omega 8-pfi-apg-fish oil 1,000 mg 1 cap PO DAILY 05/07/23 (120 mg-180 mg) capsule (Fish Oil) vitamin B complex (B 1 tab PO DAILY 05/07/23 Complex-Vitamin B12 tablet) Previous Rx's Medication Instructions Recorded hydrocortisone 2.5 % topical cream 1 appl [place] BID-QID PRN hemorrhoids 08/27/22 with perineal applicator #30 grams (Proctosol HC) famotidine 20 mg tablet 20 mg PO BEDTIME #90 tabs 05/07/23 omeprazole 20 mg tablet,delayed 40 mg PO DAILY #180 tabs 05/07/23 release acetaminophen 500 mg tablet 500 mg PO Q6H PRN fever or pain 05/22/23 (Tylenol Extra Strength) #14 tabs ketorolac 10 mg tablet 10 mg PO TID PRN pain 5 days #15 05/22/23 tabs Allergies Allergy/AdvReac Type Severity Reaction Status Date / Time Pork/Porcine Containing Allergy Mild SORES Verified 05/07/23 12:57 Products /ITCHING [Pork/Porcine Product Derivatives] nickel AdvReac Swelling Verified 05/07/23 12:57 and irritation seasonal Allergy Unknown Itchy Eyes Uncoded 03/07/23 13:13 Review of Systems Review of Systems: Constitutional: No Fever, No Chills ENT/Mouth: No Ear Pain, No Nasal Congestion, No Sinus Pain, No Hoarseness, No sore throat, No Rhinorrhea, No Swallowing Difficulty Cardiovascular: No Chest Pain, No SOB Respiratory: No Cough, No Sputum, No Wheezing Gastrointestinal: No Nausea, No Vomiting, No Diarrhea, No Constipation, No Abdominal pain Genitourinary: No Dysuria, No Urinary Frequency, No Hematuria, No Flank Pain Musculoskeletal: + joint pain, No Myalgias, + Joint Swelling Skin: No Skin Lesions, No rash Neuro: No Weakness, No Numbness, No Paresthesias Yes all other systems are reviewed and are negative Constitutional: Constitutional: Reports as per [facility] Past Medical History Attestation statement: The following information was validated with the patient. Source: old records reviewed Medical History Anemia Bladder prolapse, female, acquired CKD (chronic kidney disease) Diabetes GERD (gastroesophageal reflux disease) High cholesterol Hx of gastric ulcer IBS (irritable bowel syndrome) Kidney stones Pancreatic insufficiency Pancreatic insufficiency Renal cyst Tubular adenoma Surgical History History of partial hysterectomy Hx of breast reduction, elective Hx of cholecystectomy Hx of colonoscopy Hx of endoscopy Family History Family History Other No pertinent family history Social History Social History Household Members: Spouse Housing: Apartment Alcohol intake: never Patient Tobacco Use Status: Never used Tobacco Second Hand Smoke Exposure: No Advance Directives: No Advance Directives Information Provided: Yes Physical Exam ED Vital Signs: Vital Signs - 24 hr 05/22/23 13:22 05/22/23 17:05 Temperature 98.3 F 98.3 F Pulse Rate 100 98 Respiratory Rate 20 20 Blood Pressure 139/65 134/68 Pulse Oximetry 97 98 Oxygen Delivery Method Room Air Room Air BMI result Body Mass Index 36.6 Const General: cooperative, healthy appearing and no acute distress Orientation/consciousness: patient oriented x3 Limitations: no limitations HENMT Head: Yes normal to inspection and Yes atraumatic Ears: hearing grossly normal bilaterally General nose exam: Normal external nose present Face and sinus: Yes normal facial exam Eyes General: appearance normal, both eyes and all related structures EOM: EOMs intact bilaterally Neck Neck: Yes normal visual inspection and Yes no meningeal signs Resp Effort & Inspection: normal respiratory effort and no respiratory distress Cardio Rate: regular rate Peripheral pulses: Peripheral pulses 2+ throughout Skin Rashes: no rashes Wounds: no wounds Neuro General: patient oriented x3, tone normal and no meningeal signs Gait exam (Neuro): Normal gait present Extrem Other: Left foot with noted swelling greater to dorsal aspect without appreciable tenderness. No erythema/warmth. Neurovascularly intact distally. Bilateral LE pitting edema > LLE. No calf tenderness, negative Homans sign Course Course Course Narrative: This is a rapid medical exam: Additional HPI, ROS, PE not included below will be deferred to primary provider. Patient is a 62-year-old female with history of DM, GERD, tubular adenoma, renal cyst, and pancreatic insufficiency presenting to the emergency department with complaint of left foot pain for the past 2 months. States she has been trying to get in to see a deaf/hard of hearing specialist since April, has an appointment but is not for another 6 weeks. This morning she noted swelling to dorsal aspect of her left foot which has since resolved. States my toes feel like they weight 20 pounds, and describes pain as to my entire foot. Also reports tingling to foot. Denies any initial injury or trauma. Mild pitting edema noted to dorsal aspect of left foot, 2+ DP pulse. Has not tried any OTC medications for her symptoms. Plan: x-ray 1739--XR foot LT min 3V IMPRESSION: Degenerative changes as described above with mild hallux valgus. No evidence of an acute injury. US venous duplex LE LT IMPRESSION: No DVT demonstrated in the left lower extremity. Results discussed with patient including worrisome signs and symptoms and strict return precautions, and when to return to the emergency department. They verbalized understanding and feel safe for discharge at this time. Medical Decision Making Medical Decision Making MDM Narrative: 62-year-old female with a past medical history arthritis, pancreatic insuffici ency, diabetes, GERD, IBS, presenting to the ED complaining of acute on chronic left foot pain and swelling x months. On exam vital signs stable, NAD, nontoxic appearing, physical exam as noted above with left foot dorsal aspect swelling and pitting edema. No erythema/warmth or evidence of trauma. No deformity or crepitus. Negative Homans. Concern for arthritic flare vs ? DVT. Low suspicion for gout, septic joint/arthritis or PAD Plan: X-ray, venous duplex ultrasound Please refer to course for remaining clinical decision making, interpretation of labs/imaging results, and discussions with consultants and/or family members. Differential Diagnosis Differential Diagnoses: The differential diagnosis associated with the pre sentation includes As above Independent Interpretation I performed an independent interpretation of an: Plain X-Ray (No fracture appreciated) Radiology Impression Discussion of test interpretation with radiology: I have reviewed the radiologist's reading. External Record Review External record reviewed: Inpatient record, Office record, Outpatient record, Prior outpatient labs, Prior outpatient radiology, Primary care record and Outside ED record Tests considered The following testing was considered but not selected: As above Prescription Management I considered prescription management with: Pain Medication Chronic Conditions Patient?s care impacted by: Diabetes Discharge Plan Discharge Clinical Impression: Arthritis Patient Disposition: Home, Self-Care Instructions: Osteoarthritis (DC) Additional Instructions: Your x-ray shows some degenerative changes Ultrasound was negative for DVT Wear Nilay wrap for comfort and stability. Elevate. Continue to wear compression stockings Take Tylenol /Toradol for pain. Toradol as an anti-inflammatory, take with food Follow-up with podiatry Prescriptions: New ketorolac 10 mg tablet 10 mg PO TID PRN (Reason: pain) 5 Days Qty: 15 0RF acetaminophen [Tylenol Extra Strength] 500 mg tablet 500 mg PO Q6H PRN (Reason: fever or pain) Qty: 14 0RF No Action hydrocortisone [Proctosol HC] 2.5 % cream with perineal applicator 1 appl VT BID-QID PRN (Reason: hemorrhoids) Qty: 30 3RF fluticasone propionate 50 mcg/actuation spray,suspension 1 spray intranasal DAILY Farxiga 10 mg tablet 1 tab PO DAILY insulin lispro [Humalog KwikPen Insulin] 100 unit/mL insulin pen 14 unit subcut TID Tresiba FlexTouch U-100 100 unit/mL (3 mL) insulin pen 90 unit subcut BEDTIME cetirizine 10 mg tablet 10 mg PO DAILY atorvastatin 20 mg tablet 20 mg PO DAILY estradiol 0.01 % (0.1 mg/gram) cream 1 g vaginal 2XW omega 1-azy-oxx-fish oil [Fish Oil] 1,000 mg (120 mg-180 mg) capsule 1 cap PO DAILY vitamin B complex [B Complex-Vitamin B12] Tablet 1 tab PO DAILY cholecalciferol (vitamin D3) 25 mcg (1,000 unit) capsule 25 mcg PO DAILY ascorbic acid (vitamin C) 1,000 mg tablet 1,000 mg PO DAILY cleansing tea PO DAILY digestive enzymes Capsule 1 cap PO BID Rx Instructions: administer with food; swallow whole; do not crush/chew/dissolve/break/cut famotidine 20 mg tablet 20 mg PO BEDTIME Qty: 90 2RF omeprazole 20 mg tablet,delayed release (DR/EC) 40 mg PO DAILY Qty: 180 2RF Referrals: Jose Dunbar MD [Physician] - Gilbert Dunbar DPM [Physician] -
[2023-05-22 13:22] VITALS: BP 139/65; PULSE 100; RESP 20; TEMP 36.8; O2SAT 97; BMI 36.6
[2023-05-22 17:05] VITALS: BP 134/68; PULSE 98; RESP 20; TEMP 36.8; O2SAT 98
[2023-05-22] MEDS: Ketorolac Tromethamine 30 MG/ML VIAL IM (19:09)
== END 2023-05-22 19:15 | disposition home or self-care (01) ==
PROVIDERS: Emergency Provider Emergency Medicine; PCP Family Medicine
DX: R60.0 Localized edema (principal); M79.672 Pain in left foot; Z79.899 Other long term (current) drug therapy
CPT/HCPCS: 73630; 93971; 96372; 99284; J1885

== ENCOUNTER 2023-06-23 14:09 | Outpatient (AMB) | payer MEDICAID, SELFPAY ==
--- NOTE | 2023-06-23 12:17 | A.OFFVIS_ITS ---
Intake Intake Visit Reasons: 3m/UTI/OAB Intake Note: Patient presents today for a follow-up on Recurrents UTI's & OAB: Patient stated not taking any urological medications. Meds- None Allergies to Antibiotic- No Known Allergies Blood Thinner- None Destaticizer Feeder Required: No Accompanied by: Self / Same As Patient Allergies Pork/Porcine Containing Products [Pork/Porcine Product Derivatives] Allergy (Mild, Verified 06/23/23 14:28) SORES /ITCHING nickel Adverse Reaction (Verified 06/23/23 14:28) Swelling and irritation seasonal Allergy (Unknown, Uncoded 06/23/23 14:28) Itchy Eyes HPI HPI Comments History of Present Illness Details Ese is a 62-year-old female who presents today to the office for a follow up on lower urinary tract symptoms of recurrent urinary tract infections and overactive bladder. 06/23/2023? She was last seen by me on 03/05/2023 for lower urinary tract infections and overactive bladder. At that time urinalysis noted nitrate positive urine. She was started on Augmentin. She was also started on Oxybutynin 5 mg daily. 03/05/23--Urine culture showed >100,000 mixed abdi. She states that she is wearing pads during the day. She states she is not using the oxybutynin. Review of chart: -------03/05/2023?LV?09/20/22-- Ese is a 61-year-old female who is here for follow-up for overactive bladder symptoms and renal cyst.? Comorbidity diabetes.? The patient is a nonsmoker, having never smoked.? She denies constipation she denies dysuria. The? patient reports that she is drinking 3-4 8 oz bottles of water on a daily basis.? She had previously been trialed on oxybutynin but she does not want to take this medication or any other medication right now. Patient reports that she does have urinary incontinence she is wearing a pad on a daily basis she is up 3-6 times at night to void but does remain dry at night. On evaluation today-Urinalysis in the office today no signs of infection, Bladder scan PVR 100 mL. Discussed behaviorial modification, timed voiding every 2-3 hrs, kegel exercises.? I have discussed renal ultrasound results, 08/14/2022 small right renal cyst consistent with simple cyst. 03/05/23-- The patient states increased urinary incontinence. The patient wants to go back on oxybutynin. Complains of dysuria, denies gross hematuria, nocturia 2-3 x Co-morbidity: Insulin dependent diabetes. Evaluation today: Nitrite: positive, blood: negative, leukocytes: negative. Plan: oxybutynin 5 mg. Urine for culture was ordered. Augmentin 500 mg twice a day for 7 days. Follow-up after 3 months. 06/23/23--Evaluation today UA: leukocytes: trace; blood: negative; nitrate: negative. 06/23/23--Plan: Prescribed Estrace 2 mg vaginal cream with applicable twice a week. Continue to use pads. Instructed to change the pads frequently. Follow up in 9 months. [facility] Medical History Anemia Bladder prolapse, female, acquired CKD (chronic kidney disease) Diabetes GERD (gastroesophageal reflux disease) High cholesterol Hx of gastric ulcer IBS (irritable bowel syndrome) Kidney stones Pancreatic insufficiency Pancreatic insufficiency Renal cyst Tubular adenoma Surgical History History of partial hysterectomy Hx of breast reduction, elective Hx of cholecystectomy Hx of colonoscopy Hx of endoscopy Family History Other No pertinent family history Social History Household Members: Spouse Housing: Apartment Alcohol intake: never Patient Tobacco Use Status: Never used Tobacco Second Hand Smoke Exposure: No Review of Systems Const All systems reviewed & are unremarkable except as noted in HPI and below Reports no additional complaints Eyes Reports no additional complaints ENT Reports no additional complaints Card Denies dyspnea Resp Denies cough and Denies dyspnea GI Reports no additional complaints Reports no additional complaints Musc Reports no additional complaints Skin/Breast Denies rash and Denies unusual bruising Neuro Reports no additional complaints Psych Reports no additional complaints Endo Reports no additional complaints Ethan/Lymph Reports no additional complaints Aller/Immun Reports no additional complaints Physical Exam Const General: cooperative and no acute distress Orientation/consciousness: patient oriented x3 HEENT Head: Yes normal to inspection, Yes normocephalic and Yes atraumatic Eyes Conjunctivae: conjunctivae normal Neck Neck: Yes normal visual inspection and Yes trachea midline Chest Chest palpation & inspection: normal inspection of the chest Resp Effort & Inspection: normal respiratory effort Cardio Rate: regular rate GI Inspection: Yes normal to inspection Skin General skin exam: no rashes or lesions noted Neuro General: patient oriented x3 Psych Appearance: grossly normal Results AMB Urinalysis, Automated UA Leukoctes 15 Tara/uL Last Edit by Evita [facility] on 06/23/23 14:50 UA Nitrite Negative Last Edit by Evita [facility] on 06/23/23 14:50 UA Urobilinogen 0.2 mg/dL Last Edit by Evita [facility] on 06/23/23 14:5 0 UA Protein 0 mg/dL Last Edit by Evita [facility] on 06/23/23 14:50 UA pH 5.5 Last Edit by Evita Schul[facility] on 06/23/23 14:50 UA Blood 0 Amadeo/uL Last Edit by Evita Schul[facility] on 06/23/23 14:50 UA Specific [place] 1.015 Last Edit by Evita Schul[facility] on 06/23/23 14: 50 UA Ketone Negative Last Edit by Evita Schul[facility] on 06/23/23 14:50 UA Bilirubin 0 mg/dL Last Edit by Evita Schul[facility] on 06/23/23 14:50 UA Glucose 1000 mg/dL Last Edit by Evita Schul[facility] on 06/23/23 14:50 3+ Evita Schulz 06/23/23 14:50 Results Reviewed Results Reviewed: Laboratory Last Values Urine pH (Auto) 5.5 06/23/23 14:48 Specific [place] (Auto) 1.015 06/23/23 14:48 Urine Protein (Auto) 0 mg/dL 06/23/23 14:48 Glucose (UA)(Auto) 1000 mg/dL 06/23/23 14:48 Urine Ketones (Auto) Negative 06/23/23 14:48 Urine Blood (Auto) 0 Amadeo/uL 06/23/23 14:48 Urine Nitrite (Auto) Negative 06/23/23 14:48 Urine Bilirubin (Auto) 0 mg/dL 06/23/23 14:48 Urine Urobilinogen (Auto) 0.2 mg/dL 06/23/23 14:48 Leukocyte Esterase (Auto) 15 Tara/uL 06/23/23 14:48 Assessment & Plan Assessment & Plan (1) OAB (overactive bladder): Code(s): N32.81 - Overactive bladder (2) Urinary incontinence: Code(s): R32 - Unspecified urinary incontinence (3) UTI (urinary tract infection): Code(s): N39.0 - Urinary tract infection, site not specified Plan Prescribed Estrace 2 mg vaginal cream with applicable twice a week. Continue to use pads. Instructed to change the pads frequently. Follow up in 9 months. Orders: Orders AMB Urinalysis Automated 06/23/23 Z13.9 - Encounter for screening, unspecified Patient Instructions: The patient had an opportunity to ask questions regarding treatment plan. All questions were answered. Imaging, Laboratory studies and physical exam results were discussed and reviewed in detail. No major barriers to understanding were identified. The patient expressed understanding and agreement with the above treatment plan.? ? ? The patient is aware they should contact our office by phone for worsening of their current condition or the appearance of new symptoms. Compliance is enc ouraged with any medications and followup testing that is ordered.? ? ? It is a privilege to be allowed the opportunity to participate in the urologic care of your patient. If you have any questions or concerns regarding treatment for the above conditions please do not hesitate to contact me. The office telephone contact is [phone].? ? ? This note is constructed in part using voice recognition software. While every effort has been made to ensure accuracy adjuster and inspector errors may have been included.? ? ? Yours sincerely,? ? ? Alyce Rangel MD? Coding Level of Care Code Est Pt Level 3 (28157) Diagnoses OAB (overactive bladder) N32.81 Urinary incontinence R32 UTI (urinary tract infection) N39.0
== END 2023-06-23 14:53 | disposition home or self-care (01) ==
PROVIDERS: Visit Provider Urology
DX: N32.81 Overactive bladder (principal); R32 Unspecified urinary incontinence; N39.0 Urinary tract infection, site not specified
CPT/HCPCS: 99213

== ENCOUNTER → 2023-06-23 14:09 | Outpatient (BNVA) | payer MEDICAID, SELFPAY | PROVIDERS: Visit Provider Urology | DX: N39.0 Urinary tract infection, site not specified (principal); R32 Unspecified urinary incontinence; N32.81 Overactive bladder; Z87.442 Personal history of urinary calculi | CPT/HCPCS: 99212 ==

== ENCOUNTER 2023-08-31 01:27 | Emergency (ER) | payer MEDICAID, SELFPAY ==
[2023-08-31 01:27] VITALS: BP 149/65; PULSE 106; RESP 18; TEMP 36.9; O2SAT 96; BMI 35.8
[2023-08-31 01:50] LABS: MANUAL DIFF FLAG NO
[2023-08-31 01:51] LABS: Basophils Absolute Auto 0.1 X10*3/uL (0.0-0.2); Basophils Percent Auto 0.8 % (0-2); Eosinophils Absolute Auto 0.2 X10*3/uL (0.0-0.4); Eosinophils Percent Auto 2.1 % (0-4); Hematocrit 37.8 % (37.0-47.0); Hemoglobin 11.8 g/dl (12.0-16.0); Imm Gran Abs Auto 0.02 X10*3/uL (0.00-0.03); Imm Gran Pct Auto 0.2 % (0.0-0.4); Lymphocytes Absolute Auto 2.9 X10*3/uL (1.2-4.9); Lymphocytes Percent Auto 32.7 % (20-40); Mean Corpuscular HGB Conc 31.2 g/dl (31.0-35.0); Mean Corpuscular Hemoglobin 27.7 pg (27.0-33.0); Mean Corpuscular Volume 88.7 fL (80.0-98.0); Monocytes Absolute Auto 0.8 X10*3/uL (0.1-1.2); Monocytes Percent Auto 9.1 % (2-11); Neutrophils Absolute Auto 4.9 x10*3/uL (2.0-8.3); Neutrophils Percent Auto 55.1 % (45-73); Platelet Count 302 X10*3/uL (160-400); Red Blood Count 4.26 X10*6/uL (4.20-5.50); Red Cell Distribution Width 14.1 % (11.0-16.0); White Blood Count 8.9 X10*3/uL (4.8-10.8)
[2023-08-31 02:04] LABS: Alanine Aminotransferase 10 U/L (0-31); Albumin Level 4.2 g/dL (3.5-5.0); Alkaline Phosphatase 96 U/L (39-117); Anion Gap 19 (12-20); Aspartate Amino Transferase 15 U/L (5-31); Bilirubin Total 0.2 mg/dL (0.0-1.0); Blood Urea Nitrogen 38 mg/dL (9-16); Calcium 9.7 mg/dL (8.4-10.2); Carbon Dioxide 22 mmol/L (22-29); Chloride 103 mmol/L (96-108); Estimated Glomerular Filt Rate 21; Glucose Random 122 mg/dL (60-115); Potassium 3.9 mmol/L (3.3-5.1); Sodium 140 mmol/L (135-145); Total Protein 7.5 g/dL (6.5-8.0)
[2023-08-31 04:42] VITALS: BP 156/80; PULSE 101; RESP 18; TEMP 36.5; O2SAT 97
[2023-08-31 07:30] VITALS: BP 140/72; PULSE 95; RESP 20; O2SAT 95
[2023-08-31] MEDS: 0.9 % Sodium Chloride 1,000 ML 999 ML IV (07:38)
[2023-08-31] MEDS: diazePAM 2 MG TABLET 5 MG PO (07:41)
--- NOTE | 2023-08-31 07:46 | PC.NURSE ---
pt is alert and oriented, skin pwd, respirations even and unlabored, pt reports bilateral lower extremities cramping that started yesterday, pt does report neuropathy but never felt anything like this, no swelling visible, positive pedal pulses, vs stable
[2023-08-31 07:48] LABS: Magnesium 1.9 mg/dL (1.6-2.6)
--- NOTE | 2023-08-31 08:05 | ED.EXTPRO ---
HPI - Extremity Problem General Chief complaint: Extremity Injury, Lower Stated complaint: nerve pinch/body cramps Time Seen by Provider: 08/31/23 06:56 Source: patient and old records reviewed Mode of arrival: ambulatory Limitations: no limitations History of Present Illness HPI Narrative: 62 yo female with PMH of DM, IBS, GERD, prior leg pain, CKD here with c/o bilateral leg cramps after [facility] [employer] in [place] yesterday. She has sharp shooting cramps in both legs. No numbness, weakness but she states did not respond to tylenol has had this before but not to this level of pain. NO cold or blue toes. She does not remember injury. MD Complaint: extremity pain Onset (ago): day(s) (1) Pain Consistency: constant Location: left, right and lower extremity Quality: constant and other (throbbing) Radiation: proximal Relieving factors: nothing Exacerbating factors: walking and palpation Associated symptoms: denies other symptoms Context: other (? being at retreat yesterday ) Related Data Home Medications Medication Instructions Recorded Confirmed atorvastatin 20 mg tablet 20 mg PO DAILY 07/20/21 03/05/23 cetirizine 10 mg tablet 10 mg PO DAILY 07/20/21 03/05/23 insulin degludec 100 unit/mL (3 90 unit subcut BEDTIME 07/20/21 03/05/23 mL) subcutaneous pen (Tresiba FlexTouch U-100 insulin) insulin lispro 100 unit/mL 14 unit subcut TID 07/20/21 03/05/23 subcutaneous pen (Humalog KwikPen (U-100) Insulin) dapagliflozin propanediol 10 mg 1 tab PO DAILY 12/18/21 03/05/23 tablet (Farxiga) fluticasone propionate 50 1 spray intranasal DAILY 12/18/21 03/05/23 mcg/actuation nasal spray,suspension estradiol 0.01% (0.1 mg/gram) 1 g vaginal 2XW 06/06/22 03/05/23 vaginal cream ascorbic acid (vitamin C) 1,000 mg 1,000 mg PO DAILY 05/07/23 tablet cholecalciferol (vitamin D3) 25 25 mcg PO DAILY 05/07/23 mcg (1,000 unit) capsule cleansing tea PO DAILY 05/07/23 digestive enzymes 1 cap PO BID 05/07/23 omega 1-oll-kwy-fish oil 1,000 mg 1 cap PO DAILY 05/07/23 (120 mg-180 mg) capsule (Fish Oil) vitamin B complex (B 1 tab PO DAILY 05/07/23 Complex-Vitamin B12 tablet) Previous Rx's Medication Instructions Recorded hydrocortisone 2.5 % topical cream 1 appl LA BID-QID PRN hemorrhoids 08/27/22 with perineal applicator #30 grams (Proctosol HC) famotidine 20 mg tablet 20 mg PO BEDTIME #90 tabs 05/07/23 omeprazole 20 mg tablet,delayed 40 mg (2 x 20 mg) PO DAILY #180 05/07/23 release tabs acetaminophen 500 mg tablet 500 mg PO Q6H PRN fever or pain 05/22/23 (Tylenol Extra Strength) #14 tabs ketorolac 10 mg tablet 10 mg PO TID PRN pain 5 days #15 05/22/23 tabs incontinence pad, liner, disp #90 ea 06/23/23 estradiol 0.01% (0.1 mg/gram) See Rx Instructions .Route 2XW 07/24/23 vaginal cream (Estrace) #42.5 grams diazepam 2 mg tablet (Valium) 2 mg PO BID PRN muscle spasm #8 08/31/23 tabs Allergies Allergy/AdvReac Type Severity Reaction Status Date / Time Pork/Porcine Containing Allergy Mild SORES Verified 08/31/23 01:36 Products /ITCHING [Pork/Porcine Product Derivatives] nickel AdvReac Swelling Verified 08/31/23 01:36 and irritation seasonal Allergy Unknown Itchy Eyes Uncoded 08/31/23 01:36 Review of Systems Review of Systems: Constitutional : No Fever, No Chills ENT/Mouth : No Ear Pain, No Hoarseness, No sore throat Eyes: No Eye Pain, No Swelling, No Redness, No Foreign Body Cardiovascular : No Chest Pain, No SOB Respiratory : No Cough, No Dyspnea Gastrointestinal : No Nausea, No Vomiting, No Diarrhea, No abdominal Pain Genitourinary : No Dysuria, No Hematuria Musculoskeletal : positive joint pain, pos Myalgias, No Joint Swelling Skin : No Skin lacerations, No rash Neuro : No Weakness, No Numbness, No Loss of Consciousness, No Dizziness, No Headache Psych : No Anxiety/Panic, No Depression All other systems reviewed and are negative [facility] Past Medical History Attestation statement: The following information was validated with the patient. Source: old records reviewed Medical History Pancreatic insufficiency Pancreatic insufficiency Tubular adenoma CKD (chronic kidney disease) Anemia GERD (gastroesophageal reflux disease) Renal cyst Bladder prolapse, female, acquired Hx of gastric ulcer IBS (irritable bowel syndrome) Kidney stones High cholesterol Diabetes Surgical History Hx of endoscopy Hx of colonoscopy History of partial hysterectomy Hx of breast reduction, elective Hx of cholecystectomy Family History Family History Other No pertinent family history Social History Social History Household Members: Spouse Housing: Apartment Alcohol intake: never Patient Tobacco Use Status: Never used Tobacco Smoked in Last 30 Days: No Second Hand Smoke Exposure: No Use of substances other than those prescribed or required for medical reasons: No Advance Directives: No Advance Directives Information Provided: No Physical Exam Vital Signs: Vital Signs: Last Vital Signs Temp 97.7 F 08/31/23 04:42 Pulse 95 08/31/23 07:30 Resp 20 08/31/23 07:30 BP 140/72 H 08/31/23 07:30 Pulse Ox 95 08/31/23 07:30 O2 Del Method Room Air 08/31/23 07:30 BMI result Body Mass Index 35.8 Appearance: Alert. Oriented X3. No acute distress. Eyes: Pupils equal, round and reactive to light. ENT: Pharynx normal. Neck: Normal inspection. Neck supple. CVS: Normal heart rate and rhythm. Pulses normal. Respiratory: No respiratory distress. Breath sounds normal. Abdomen: Soft and nontender. Skin: Skin warm and dry. Normal skin color. Normal skin turgor. Extremities: No lower extremity edema. No calf ttp compartments are soft and compressible, 2+ DP and PT pulse, warm to touch Neuro: Oriented X 3. No motor deficit. No sensory deficit. Medications Administered Discontinued Medications Generic Name Dose Route Start Last Admin Trade Name Freq PRN Reason Stop Dose Admin Diazepam 5 mg 08/31/23 07:28 08/31/23 07:41 Diazepam 2 Mg Tablet PO 08/31/23 07:29 5 mg ONCE ONE Administration Sodium Chloride 1,000 mls @ 999 mls/hr 08/31/23 07:15 08/31/23 07:38 Ns IV 08/31/23 08:15 999 mls/hr .Q1H1M SHANDRA Administration Medical Decision Making Medical Decision Making [facility] Narrative: 62 yo female with PMH of DM, IBS, GERD, prior leg pain, CKD here with c/o bilateral leg cramps after retreat in [place] at this time mild dehydration will obtain K and magnesium, PO valium and IVF ordered, suspect cramps. Bilateral in nature no calf swelling distal NV intact and compartments are soft and compressible doubt compartment syndrome, ischemic limb or DVT. Differential Diagnosis Differential Diagnoses: The differential diagnosis associated with the presentation includes cramps, lyte abnormality, dehydration pulses intact doubt ischemia Admission/Observation Consideration of admission/observation: Escalation of care including admission/observation considered feels better stable for DC at this time Lab Data [facility] Lab Attestation statement: I reviewed the patient's lab results. 08/31/23 01:46 08/31/23 01:46 Labs: Lab Results 08/31/23 Range/Units 01:46 WBC 8.9 (4.8-10.8) X10*3/uL RBC 4.26 (4.20-5.50) X10*6/uL Hgb 11.8 L (12.0-16.0) g/dl Hct 37.8 (37.0-47.0) % MCV 88.7 (80.0-98.0) fL MCH 27.7 (27.0-33.0) pg MCHC 31.2 (31.0-35.0) g/dl RDW 14.1 (11.0-16.0) % Plt Count 302 (160-400) X10*3/uL MPV 10.0 (9.4-12.3) fL Immature Gran % (Auto) 0.2 (0.0-0.4) % Neut % (Auto) 55.1 (45-73) % Lymph % (Auto) 32.7 (20-40) % Nelson % (Auto) 9.1 (2-11) % Eos % (Auto) 2.1 (0-4) % Baso % (Auto) 0.8 (0-2) % Lymph # (Auto) 2.9 (1.2-4.9) X10*3/uL Nelson # (Auto) 0.8 (0.1-1.2) X10*3/uL Eos # (Auto) 0.2 (0.0-0.4) X10*3/uL Baso # (Auto) 0.1 (0.0-0.2) X10*3/uL Abs Immat Gran (auto) 0.02 (0.00-0.03) X10*3/uL Absolute Neuts (auto) 4.9 (2.0-8.3) x10*3/uL Absolute Nucleated RBC 0.000 (0.0-0.012) X10*3/uL Nucleated RBC % (auto) 0.0 (0.0-0.2) /100WBC Sodium 140 (135-145) mmol/L Potassium 3.9 (3.3-5.1) mmol/L Chloride 103 (96-108) mmol/L Carbon Dioxide 22 (22-29) mmol/L Anion Gap 19 (12-20) BUN 38 H (9-16) mg/dL Creatinine 2.32 H (0.5-1.4) mg/dL Estim Creat Clear Calc 26.0 Estimated GFR 21 Random Glucose 122 H (60-115) mg/dL Calcium 9.7 D (8.4-10.2) mg/dL Magnesium 1.9 (1.6-2.6) mg/dL Total Bilirubin 0.2 (0.0-1.0) mg/dL AST 15 (5-31) U/L ALT 10 (0-31) U/L Alkaline Phosphatase 96 (39-117) U/L Total Protein 7.5 (6.5-8.0) g/dL Albumin 4.2 (3.5-5.0) g/dL External Record Review External record reviewed: Inpatient record Tests considered The following testing was considered but not selected: US but given bilateral and no swelling doubt DVT - only drove to [place] has had this pain before Prescription Management I considered prescription management with: Other Discharge Plan Discharge Clinical Impression: Muscle cramp Patient Disposition: Home, Self-Care Instructions: Muscle Cramp (ED) Additional Instructions: please return for numbness, weakness, worsening pain, cold blue toes, or any other concerns. stay hydrated and rest today. take medications as prescribed. your kidney function was 2.3 would recheck with your doctor on Friday you were given IVF - our last records show it was at 2.0 Prescriptions: New diazepam [Valium] 2 mg tablet 2 mg PO BID PRN (Reason: muscle spasm) Qty: 8 0RF No Action hydrocortisone [Proctosol HC] 2.5 % cream with perineal applicator 1 appl LA BID-QID PRN (Reason: hemorrhoids) Qty: 30 3RF (DME) incontinence pad, liner, disp Pad See Rx Instructions .Route Qty: 90 6RF Rx Instructions: As directed: change pads Q2-3 hours/PRN estradiol [Estrace] 0.01 % (0.1 mg/gram) cream See Rx Instructions .ROUTE 2XW Qty: 42.5 3RF Rx Instructions: pea sized amount to urethra 2 times a week; fluticasone propionate 50 mcg/actuation spray,suspension 1 spray intranasal DAILY Farxiga 10 mg tablet 1 tab PO DAILY ketorolac 10 mg tablet 10 mg PO TID PRN (Reason: pain) 5 Days Qty: 15 0RF acetaminophen [Tylenol Extra Strength] 500 mg tablet 500 mg PO Q6H PRN (Reason: fever or pain) Qty: 14 0RF insulin lispro [Humalog KwikPen Insulin] 100 unit/mL insulin pen 14 unit subcut TID Tresiba FlexTouch U-100 100 unit/mL (3 mL) insulin pen 90 unit subcut BEDTIME cetirizine 10 mg tablet 10 mg PO DAILY atorvastatin 20 mg tablet 20 mg PO DAILY estradiol 0.01 % (0.1 mg/gram) cream 1 g vaginal 2XW omega 9-anm-iox-fish oil [Fish Oil] 1,000 mg (120 mg-180 mg) capsule 1 cap PO DAILY vitamin B complex [B Complex-Vitamin B12] Tablet 1 tab PO DAILY cholecalciferol (vitamin D3) 25 mcg (1,000 unit) capsule 25 mcg PO DAILY ascorbic acid (vitamin C) 1,000 mg tablet 1,000 mg PO DAILY cleansing tea PO DAILY digestive enzymes Capsule 1 cap PO BID Rx Instructions: administer with food; swallow whole; do not crush/chew/dissolve/break/cut famotidine 20 mg tablet 20 mg PO BEDTIME Qty: 90 2RF omeprazole 20 mg tablet,delayed release (DR/EC) 40 mg PO DAILY Qty: 180 2RF
--- NOTE | 2023-08-31 09:00 | PC.NURSE ---
pt reports feeling better pain 5/10
[2023-08-31 09:27] VITALS: BP 136/73; PULSE 104; O2SAT 95
== END 2023-08-31 09:39 | disposition home or self-care (01) ==
PROVIDERS: Emergency Provider Emergency Medicine; PCP Family Medicine
DX: R25.2 Cramp and spasm (principal); M79.605 Pain in left leg; M79.604 Pain in right leg; Z79.899 Other long term (current) drug therapy
CPT/HCPCS: 36415; 80053; 83735; 85025; 96360; 99284

== ENCOUNTER 2023-09-03 14:33 | Outpatient (AMB) | payer MEDICAID, SELFPAY ==
[2023-09-03 14:38] VITALS: BP 138/66; PULSE 94; O2SAT 98; BMI 36.4
--- NOTE | 2023-09-03 14:38 | A.OFFVIS_ITS ---
Intake Vital Signs 09/03/23 14:38 Height 5 ft 2 in Weight 198 lb 13.711 oz BMI 36.4 BP 138/66 Blood Pressure Location Rt brachial Position Sitting Pulse 94 Pulse Source Pulse Oximeter Pulse Oximetry (%) 98 Oxygen Delivery Method Room Air Intake Visit Reasons: 4 month fu Intake Note: Pt presents to the office today for a 4 month follow up for GERD. Pt states omeperazole seems to help her acid reflux and gas and wants to continue taking that for a few more months to see how it goes. Pt denies nausea or vomiting. Pt states she wasn't sure if she had a stomach bug a few weeks ago because she had diarrhea for a week and is still having some diarrhea since then. Pt states it has improved from a few weeks ago. Allergies Pork/Porcine Containing Products [Pork/Porcine Product Derivatives] Allergy (Mild, Verified 09/03/23 14:41) SORES /ITCHING nickel Adverse Reaction (Verified 09/03/23 14:41) Swelling and irritation seasonal Allergy (Unknown, Uncoded 09/03/23 14:41) Itchy Eyes HPI 4 month fu HPI Details LAST VISIT: GERD (gastroesophageal reflux disease) Will change pantoprazole to omeprazole. Patient was encouraged to avoid dietary triggers and late night snacking. Will get her script for famotidine at bedtime. Pancreatic insufficiency Continue enzyme treatment. IBS (irritable bowel syndrome) Low FODMAP diet discussed with patient. List of food to avoid as well as list of food recommended given to patient. I will see patient in 4 months, sooner on as needed basis. Patient is agreeable to this plan and verbalizes understanding of instructions. She was given the opportunity to ask questions and all questions answered. ? TODAY'S VISIT Patient is here today for follow-up. Patient reports that in the past couple weeks she has been having loose stools. Patient was seen in the emergency room on of this month. Patient had severe leg cramps. Her electrolytes were normal including magnesium. Patient's kidney function were elevated and patient was given IV fluids. 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 Patient admits to taking magnesium at home, patient does not remember the dose. Discussed with patient that magnesium is also can cause diarrhea. Patient does not remember anyone in her family having similar symptoms. Patient denies traveling. Occasional abdominal cramping. Patient denies melena, hematochezia, unintentional weight loss or ribbon like stools. Patient denies dyspepsia, dysphagia odynophagia. Patient is taking omeprazole in the morning and states that her symptoms are completely suppressed. Patient is taking vegan enzymes due to pork allergy and reports to be feeling well. Patient denies abdominal bloating postprandially, less gassy. No cramping. Patient reports that she is moving her bowels without any issues PFSH Medical History Pancreatic insufficiency Pancreatic insufficiency Tubular adenoma CKD (chronic kidney disease) Anemia GERD (gastroesophageal reflux disease) Renal cyst Bladder prolapse, female, acquired Hx of gastric ulcer IBS (irritable bowel syndrome) Kidney stones High cholesterol Diabetes Surgical History Hx of endoscopy Hx of colonoscopy History of partial hysterectomy Hx of breast reduction, elective Hx of cholecystectomy Family History Other No pertinent family history Social History Household Members: Spouse Housing: Apartment Alcohol intake: never Patient Tobacco Use Status: Never used Tobacco Second Hand Smoke Exposure: No Review of Systems Const Denies weight gain and Denies weight loss ENT Reports no additional complaints, Denies dysphagia and Denies odynophagia Card Reports no additional complaints Resp Reports no additional complaints GI Denies abdominal pain, Denies belching, Denies melena, Denies bloating, Denies change in bowel habits, Denies dysphagia, Denies excessive flatus, Denies dyspepsia, Denies heartburn, Denies diarrhea, Denies loose stools, Denies naus ea, Denies odynophagia and Denies vomiting Musc Reports no additional complaints Neuro Reports no additional complaints Psych Reports no additional complaints Endo Reports no additional complaints Physical Exam Vital Signs: Last Vital Signs Pulse 94 09/03/23 14:38 BP 138/66 09/03/23 14:38 Pulse Ox 98 10/25/23 14:38 Oxygen Delivery Method Room Air 09/03/23 14:38 BMI result Body Mass Index 36.4 Const General: healthy appearing, no acute distress and well developed Nutritional Appearance: obese Orientation/consciousness: patient oriented x3 HEENT Head: Yes normal to inspection, Yes normocephalic and Yes atraumatic Face and sinus: Yes normal facial exam Mouth: Normal oral and palatal mucosa present Throat: Yes posterior oropharynx normal, Yes tonsils normal and Yes uvula midline Eyes General: appearance normal, both eyes and all related structures Neck Neck: Yes normal visual inspection, Yes full ROM and Yes trachea midline Thyroid: Thyroid normal Resp Effort & Inspection: normal respiratory effort, able to speak in complete sentences, no tracheal deviation and symmetric chest movement Auscultation: clear to auscultation bilaterally Cardio Rate: regular rate Heart sounds: S1 normal heart sound present and S2 normal heart sound present GI Inspection: Yes normal to inspection, No distended and Yes obesity Palpation (GI): Soft to palpation, not firm, nontender and No hepatosplenomegaly present Auscultation: normal bowel sounds General: Yes no CVA tenderness Back/Spine/Pelvis Back: no CVA tenderness Skin General skin exam: elasticity normal, turgor normal and dry skin Neuro General: patient oriented x3 Psych Appearance: grossly normal Mental Status: mental status grossly normal Assessment & Plan Assessment & Plan (1) GERD (gastroesophageal reflux disease): Code(s): K21.9 - Gastro-esophageal reflux disease without esophagitis Qualifiers: Esophagitis presence: esophagitis presence not specified Qualified Code(s): K21.9 - Gastro-esophageal reflux disease without esophagitis (2) Pancreatic insufficiency: Code(s): K86.89 - Other specified diseases of pancreas (3) IBS (irritable bowel syndrome): Code(s): K58.9 - Irritable bowel syndrome without diarrhea Qualifiers: Irritable bowel syndrome type: with constipation Qualified Code(s): K58.1 - Irritable bowel syndrome with constipation (4) Postprandial abdominal bloating: Code(s): R14.0 - Abdominal distension (gaseous) (5) Diarrhea: Code(s): R19.7 - Diarrhea, unspecified Qualifiers: Diarrhea type: unspecified type Qualified Code(s): R19.7 - Diarrhea, unspecified Plan Continue current treatment with omeprazole 40 mg daily. Continue taking enzymes. Avoid dietary triggers. Stool study, GI panel order and pancreatic elastase. I will see her in 4 months, sooner on as needed basis. Patient is agreeable to this plan and verbalizes understanding of instructions. She was given the opportunity to ask questions and all questions answered. Thank you for allowing me to participate in the care. Orders: Orders GI Panel Today R19.7 - Diarrhea, unspecified Pancreatic Elastase-1 Today R10.9 - Unspecified abdominal pain Medications: Refilled omeprazole 40 mg (2 x 20 mg) PO DAILY 180 tabs 2RF K21.9 - Gastro-esophageal reflux disease without esophagitis Coding Level of Care Code Est Pt Level 4 (97621) Diagnoses Gastroesophageal reflux disease, unspecified whether esophagitis present K21.9 Esophagitis presence: esophagitis presence not specified Pancreatic insufficiency K86.89 Irritable bowel syndrome with constipation K58.1 Irritable bowel syndrome type: with constipation Postprandial abdominal bloating R14.0 Diarrhea, unspecified type R19.7 Diarrhea type: unspecified type Time Spent (min) 35 Comment 20 minutes spent with patient and additional 15 minutes spent reviewing her records
== END 2023-09-03 15:19 | disposition home or self-care (01) ==
PROVIDERS: PCP Family Medicine; Visit Provider Nurse Practitioner Family
DX: K21.9 Gastro-esophageal reflux disease without esophagitis (principal); K86.89 Other specified diseases of pancreas; K58.1 Irritable bowel syndrome with constipation; R14.0 Abdominal distension (gaseous); R19.7 Diarrhea, unspecified
CPT/HCPCS: 99214

== ENCOUNTER → 2023-09-03 14:33 | Outpatient (BNVA) | payer MEDICAID, SELFPAY | PROVIDERS: PCP Family Medicine; Visit Provider Nurse Practitioner Family | DX: K21.9 Gastro-esophageal reflux disease without esophagitis (principal); K86.89 Other specified diseases of pancreas; K58.1 Irritable bowel syndrome with constipation; R14.0 Abdominal distension (gaseous); R19.7 Diarrhea, unspecified | CPT/HCPCS: 99212 ==

== ENCOUNTER 2023-12-30 16:45 | Outpatient (REF) | payer MEDICAID, SELFPAY ==
[2023-12-30 17:44] LABS: Estimated Average Glucose 189 mg/dL; Hemoglobin A1c % 8.2 % (<6.0)
[2023-12-30 18:09] LABS: Creatinine Urine 59.47 mg/dL
[2023-12-30 18:13] LABS: Alanine Aminotransferase 6 U/L (0-31); Albumin Level 4.2 g/dL (3.5-5.0); Alkaline Phosphatase 94 U/L (39-117); Anion Gap 14 (12-20); Aspartate Amino Transferase 16 U/L (5-31); Bilirubin Total 0.3 mg/dL (0.0-1.0); Blood Urea Nitrogen 43 mg/dL (9-16); Calcium 9.7 mg/dL (8.4-10.2); Carbon Dioxide 26 mmol/L (22-29); Chloride 104 mmol/L (96-108); Cholesterol 235 mg/dL (<200); Estimated Glomerular Filt Rate 27; Glucose Random 62 mg/dL (60-115); HDL Cholesterol 49 mg/dL (>40); LDL Cholesterol Calculated 151 mg/dL (<100); Potassium 3.8 mmol/L (3.3-5.1); Sodium 140 mmol/L (135-145); Total Protein 7.5 g/dL (6.5-8.0); Triglycerides 177 mg/dL (<150)
[2023-12-30 18:31] LABS: TSH reflex Free T4 1.82 uIU/mL (0.32-4.0)
[2023-12-30 19:02] LABS: Reflex LDLD? No
== END 2023-12-30 16:46 | disposition home or self-care (01) ==
LOC: HO.HHCL 16:45
PROVIDERS: Visit Provider Family Medicine
DX: E11.65 Type 2 diabetes mellitus with hyperglycemia (principal); K59.04 Chronic idiopathic constipation; E78.5 Hyperlipidemia, unspecified; Z79.4 Long term (current) use of insulin
CPT/HCPCS: 36415; 80053; 80061; 82043; 82570; 83036; 84443

== ENCOUNTER 2024-02-10 14:10 | Outpatient (REF) | payer MEDICAID, SELFPAY ==
--- NOTE | ~2024-02-10 | MM_ITS ---
EXAMINATION: BONE DENSITOMETRY CLINICAL INDICATION: Osteopenia. COMPARISON: This is the patient's baseline examination. TECHNIQUE: Using a [employer] DXA System (software version: 13.1) manufactured by [employer], dual-energy x-ray absorptiometry was performed of the lumbar spine and left hip. The images are of good technical quality. Summary results are attached. FINDINGS: LEFT FEMUR, NECK: BMD 1.083 g/cm2, Z-score 1.1, T-score 0.3, normal. LEFT FEMUR, TOTAL: BMD 1.199 g/cm2, Z-score 2.0, T-score 1.5, normal. AP SPINE L1-L4: BMD 1.592 g/cm2, Z-score 4.0, T-score 3.4, normal. IDENTIFIED RISK FACTORS: Menopause, anticonvulsant, hysterectomy, osteoporosis, renal. HISTORY OF FRACTURE: None listed. MEDICATIONS: Multivitamin, vitamin D. MM/XR DEXA axial skeleton IMPRESSION: 1. DIAGNOSIS: Normal bone density based on the lowest T-score value of 0.3 in the femoral neck applying World Health Organization criteria. 2. 10-YEAR FRACTURE RISK PREDICTION, FRAX: According to the guidelines, FRAX calculation should only be performed on patients in the osteopenia bone density category. Therefore, FRAX was not performed on this patient. 3. Treatment Recommendations: NOF guidelines recommend consideration for treatment in postmenopausal women and men age 50 and older presenting with the following: -A hip or vertebral (clinical or morphometric) fracture. -T-score less than or equal to -2.5 at the femoral neck or spine after appropriate evaluation to exclude secondary causes. -Low bone mass at the hip or spine and a 10-year fracture probability by FRAX of greater than or equal to 3% for hip fracture or greater than or equal to 20% for major osteoporotic fracture based on the [place] adapted WHO algorithm. 4. Other Recommendations: All treatment decisions require clinical judgment and consideration of individual patient factors, including patient preferences, comorbidities, previous drug use, risk factors not captured in the FRAX model (e.g. frailty, falls, vitamin D deficiency, increased bone turnover, interval significant decline in bone density) and possible under or overestimation of fracture risk by FRAX. FUTURE SCAN RECOMMENDATION: People with diagnosed cases of osteoporosis or at high risk for fracture should have regular bone mineral density tests. For patients eligible for Medicare, routine testing is allowed once every 2 years. The testing frequency can be increased to one year for patients who have rapidly progressing disease, those who are receiving or discontinuing medical therapy to restore bone mass, or have additional risk factors.
--- NOTE | ~2024-02-10 | MM_ITS ---
EXAMINATION: MM SCREENING DIGITAL BREAST TOMOSYNTHESIS, BILATERAL CLINICAL INFORMATION: Screening. Asymptomatic. The patient is status post bilateral breast reduction. COMPARISON: Mammography: This study is compared with prior exams dating back to 2020. TECHNIQUE: Digital breast tomosynthesis is performed in both the craniocaudal and mediolateral oblique views along with computer-aided detection (CAD). Synthesized 2D images are generated from the tomosynthesis. FINDINGS: There are scattered areas of fibroglandular density (ACR BI-RADS breast composition Category b). There are no significant masses, abnormal calcifications, or other abnormalities. Post reduction changes are present. These include several, bilateral, benign macrocalcifications housing management representative of fat necrosis. MM/MM tomosynthesis screening BI IMPRESSION: No mammographic evidence of malignancy. ASSESSMENT: BI-RADS BI-RADS 1 - Negative RECOMMENDATION: Routine annual mammography screening. 1 year F/U This examination should not preclude the clinical evaluation of a suspicious palpable abnormality. This patient's information was entered into a reminder system with a target due date for their next mammogram.
== END 2024-02-10 14:11 | disposition home or self-care (01) ==
LOC: HO.MAMMO 14:10
PROVIDERS: PCP Family Medicine; Visit Provider Family Medicine
DX: Z12.31 Encounter for screening mammogram for malignant neoplasm of breast (principal); Z13.820 Encounter for screening for osteoporosis; M85.88 Other specified disorders of bone density and structure, other site; Z78.0 Asymptomatic menopausal state
CPT/HCPCS: 77063; 77067; 77080

== ENCOUNTER → 2024-02-10 14:30 | Outpatient (BNV) | payer MEDICAID, SELFPAY | PROVIDERS: PCP Family Medicine; Visit Provider Radiology Diagnostic Radiology | DX: Z12.31 Encounter for screening mammogram for malignant neoplasm of breast (principal) | CPT/HCPCS: 77063; 77067 ==

== ENCOUNTER 2024-03-22 13:30 | Outpatient (AMB) | payer MEDICAID, SELFPAY ==
--- NOTE | 2024-03-22 13:35 | A.OFFVIS_ITS ---
Intake Visit Reasons: 9m/recurrent UTIs/OAB/UI Intake Note: Patient presents today for a follow-up on Recurrents UTI's & OAB: Meds- Estradiol Allergies to Antibiotic- No Known Allergies Blood Thinner- None Java Software Required: No Accompanied by: Self / Same As Patient Allergies Pork/Porcine Containing Products [Pork/Porcine Product Derivatives] Allergy (Mild, Verified 03/22/24 13:36) SORES /ITCHING nickel Adverse Reaction (Verified 03/22/24 13:36) Swelling and irritation seasonal Allergy (Unknown, Uncoded 03/22/24 13:36) Itchy Eyes HPI Comments Details: Ese is a 63-year-old female who presents today to the office for a follow up on lower urinary tract symptoms of recurrent urinary tract infections and overactive bladder. She was last seen in the office 06/23/2023. Currently on vaginal estrogen replacement therapy. No longer using p.o. anticholinergics. Incontinence pads p.r.n., prompted voiding, she needs to change the pad wants to twice daily. She states that her doctor decrease the Farxiga to half a tab daily and she feels it has helped reduce her symptoms of UTI frequency. Diabetes comorbidity. Review of chart: 06/23/2023? She was last seen by me on 03/05/2023 for lower urinary tract infections and overactive bladder. At that time urinalysis noted nitrate positive urine. She was started on Augmentin. She was also started on Oxybutynin 5 mg daily. 03/05/23--Urine culture showed >100,000 mixed abdi. She states that she is wearing pads during the day. She states she is not using the oxybutynin. Evaluation today UA: leukocytes: trace; blood: negative; nitrate: negative. 03/05/2023?LV?09/20/22-- Ese is a 61-year-old female who is here for follow- up for overactive bladder symptoms and renal cyst.? Comorbidity diabetes.? The patient is a nonsmoker, having never smoked.? She denies constipation she denies dysuria. The? patient reports that she is drinking 3-4 8 oz bottles of water on a daily basis.? She had previously been trialed on oxybutynin but she does not want to take this medication or any other medication right now. Patient reports that she does have urinary incontinence she is wearing a pad on a daily basis she is up 3-6 times at night to void but does remain dry at night. On evaluation today-Urinalysis in the office today no signs of infection, Bladder scan PVR 100 mL. Discussed behaviorial modification, timed voiding every 2-3 hrs, kegel exercises.? I have discussed renal ultrasound results, 08/14/2022 small right renal cyst consistent with simple cyst. 03/05/23-- The patient states increased urinary incontinence. The patient wants to go back on oxybutynin. Complains of dysuria, denies gross hematuria, nocturia 2-3 x Co-morbidity: Insulin dependent diabetes. Evaluation today: Nitrite: positive, blood: negative, leukocytes: negative. Plan: oxybutynin 5 mg. Urine for culture was ordered. Augmentin 500 mg twice a day for 7 days. Follow-up after 3 months. [facility] Medical History Pancreatic insufficiency Pancreatic insufficiency Tubular adenoma CKD (chronic kidney disease) Anemia GERD (gastroesophageal reflux disease) Renal cyst Bladder prolapse, female, acquired Hx of gastric ulcer IBS (irritable bowel syndrome) Kidney stones High cholesterol Diabetes Surgical History Hx of endoscopy Hx of colonoscopy History of partial hysterectomy Hx of breast reduction, elective Hx of cholecystectomy Family History Other No pertinent family history Social History Household Members: Spouse Housing: Apartment Alcohol intake: never Patient Tobacco Use Status: Never used Tobacco Second Hand Smoke Exposure: No Review of Systems Const All systems reviewed & are unremarkable except as noted in HPI and below Reports no additional complaints Eyes Reports no additional complaints ENT Reports no additional complaints Card Reports no additional complaints Resp Reports no additional complaints GI Reports no additional complaints Reports as per HPI Musc Reports no additional complaints Skin/Breast Reports system reviewed and no additional complaints, except as documented Neuro Reports no additional complaints Psych Reports no additional complaints Endo Reports no additional complaints Ethan/Lymph Reports no additional complaints Aller/Immun Reports no additional complaints Assessment & Plan Assessment & Plan (1) OAB (overactive bladder): Code(s): N32.81 - Overactive bladder Category: Medical (2) Urinary incontinence: Code(s): R32 - Unspecified urinary incontinence Category: Medical (3) UTI (urinary tract infection): Code(s): N39.0 - Urinary tract infection, site not specified Category: Medical (4) Diabetes: Code(s): E11.9 - Type 2 diabetes mellitus without complications Category: Medical Plan Recurrent UTIs Prescribed Estrace vaginal cream Overactive bladder, uses pads changes 1 to twice daily. Timed voiding. Follow up in 9 months. Medications: Changed From estradiol 0.01%(0.1mg/gram) (Estrace) pea sized amount to urethra 2 times a week; 42.5 grams 3RF To estradiol 0.01%(0.1mg/gram) (Estrace) pea sized amount to urethra daily at bedtime 42.5 grams 1RF Patient Instructions: The patient had an opportunity to ask questions regarding treatment plan. The patient expressed understanding and agreement with the above treatment plan. The patient is aware they should contact our office by phone for worsening of their current condition or the appearance of new symptoms. Compliance is encouraged with any medications and followup testing that is ordered. It is a privilege to be allowed the opportunity to participate in the urologic care of your patient. If you have any questions or concerns regarding treatment for the above conditions please do not hesitate to contact me. The office telephone contact is [phone]. This note is constructed in part using voice recognition software. While every effort has been made to ensure accuracy computing machine operator errors may have been included. Yours sincerely, Alyce Rangel MD Coding Level of Care Code Est Pt Level 4 (67579) Diagnoses OAB (overactive bladder) N32.81 Urinary incontinence R32 UTI (urinary tract infection) N39.0 Diabetes E11.9
== END 2024-03-22 14:07 | disposition home or self-care (01) ==
PROVIDERS: PCP Family Medicine; Visit Provider Urology
DX: N32.81 Overactive bladder (principal); R32 Unspecified urinary incontinence; N39.0 Urinary tract infection, site not specified; E11.9 Type 2 diabetes mellitus without complications; Z13.9 Encounter for screening, unspecified
CPT/HCPCS: 99214

== ENCOUNTER → 2024-03-22 13:30 | Outpatient (BNVA) | payer MEDICAID, SELFPAY | PROVIDERS: PCP Family Medicine; Visit Provider Urology | DX: N32.81 Overactive bladder (principal); N39.0 Urinary tract infection, site not specified; R32 Unspecified urinary incontinence; E11.9 Type 2 diabetes mellitus without complications | CPT/HCPCS: 81003; 99212 ==

== ENCOUNTER 2024-07-16 13:35 | Outpatient (REF) | payer MEDICAID, SELFPAY ==
--- NOTE | ~2024-07-16 | XR_ITS ---
EXAMINATION: XR FOOT, RIGHT CLINICAL INFORMATION: Fourth and fifth toe trauma. Pain. COMPARISON: Right ankle radiographs dated 10/08/2022. TECHNIQUE: AP, lateral, and oblique views of the right foot. FINDINGS: Mildly displaced, oblique fracture through the proximal metaphysis of the fifth proximal phalanx without extension to the articular surface. No additional fracture. No dislocation. First metatarsal orthopedic hardware without evidence of complication. Moderate osteoarthritis at the first through third tarsometatarsal joints with more mild osteoarthritis scattered throughout the remaining mid foot. No osseous erosion. Atherosclerotic calcifications. XR/XR foot RT min 3V IMPRESSION: 1. Mildly displaced, oblique fracture through the proximal metaphysis of the fifth proximal phalanx. 2. Moderate osteoarthritis at the first through third tarsometatarsal joints with more mild osteoarthritis throughout the remaining mid foot. Electronically signed by: Arthur Arrieta MD 07/22/2024 02:15 PM EDT
== END 2024-07-16 13:36 | disposition home or self-care (01) ==
LOC: HO.HHCX 13:35
PROVIDERS: Visit Provider Family Medicine
DX: S90.31XA Contusion of right foot, initial encounter (principal)
CPT/HCPCS: 73630

== ENCOUNTER → 2024-07-20 10:36 | Outpatient (RCR) | payer MEDICAID, SELFPAY ==
[2021-07-27 11:05] VITALS: BP 150/89; PULSE 110; RESP 14; TEMP 37.1; O2SAT 99; BMI 37.8
--- NOTE | 2021-07-27 11:22 | PM.HEMONCCN ---
Subjective - Subjective Chief complaint: Chronic diarrhea Patient: new to practice Consult date: 07/27/21 HPI - Consult Narrative Reason for consult: Abnormal CT scan Narrative: Ese Mendoza is a 60 year old female who has been referred from the emergency department because of abnormal CT findings. She has history of chronic diarrhea and abdominal pain. She has seen multiple health safety manager over the years and she is not happy as her symptoms are persistent. Her most recent endoscopy/colonoscopy was in 2019 in [place]. Prior to that she had these done in [place] where she lived for a few years. She has already been referred to GI at [facility] and has seen Dr. Watkins in consultation for the renal mass. Review of Systems - Constitutional Reports as per HPI, Reports fatigue, Reports poor appetite, Denies weight loss - Cardiovascular Reports no additional cardiovascular complaints, Denies chest pain PMFSH Medical History: Medical History (Last Updated 07/20/21 @ 10:52 by Cruz Watkins MD) Diabetes High cholesterol IBS (irritable bowel syndrome) Kidney stones Family History: Family History (Last Updated 07/27/21 @ 11:16 by Valery Ochoa) Other No pertinent family history Surgical History: Surgical History (Last Updated 07/27/21 @ 11:16 by Valery Ochoa) History of partial hysterectomy Hx of breast reduction, elective Hx of cholecystectomy Social History: Social History (Last Updated 07/27/21 @ 11:16 by Valery Ochoa) Living Situation History: Household Members: Spouse Housing: Apartment Alcohol History: Alcohol intake: never Alcohol History Details: Alcohol intake frequency: does not drink Tobacco History: Patient Tobacco Use Status: Never used Tobacco Substance Use History: Use of substances other than those prescribed or required for medical reasons: No Home Medications and Allergies Home Medications Medication Instructions Recorded Confirmed Type atorvastatin 20 mg tablet 20 mg PO DAILY 07/20/21 07/27/21 History cetirizine 10 mg tablet 10 mg PO DAILY 07/20/21 07/27/21 History insulin degludec 100 unit/mL (3 90 unit SUBCUT BEDTIME 07/20/21 07/27/21 History mL) subcutaneous pen (Tresiba FlexTouch U-100 insulin) insulin lispro 100 unit/mL 14 unit SUBCUT TID 07/20/21 07/27/21 History subcutaneous pen (Humalog KwikPen (U-100) Insulin) metformin 500 mg tablet 500 mg PO BID 07/20/21 07/27/21 History Allergies Allergy/AdvReac Type Severity Reaction Status Date / Time Pork/Porcine Containing Allergy Mild SORES Verified 07/27/21 11:17 Products /ITCHING [Pork/Porcine Product Derivatives] seasonal Allergy Unknown Itchy Eyes Uncoded 07/27/21 11:17 Physical Exam Vital signs: Vital Signs Temp 98.7 F 07/27/21 11:05 Pulse 110 H 07/27/21 11:05 Resp 14 07/27/21 11:05 BP 150/89 H 07/27/21 11:05 Pulse Ox 99 07/27/21 11:05 Intake & Output 07/26/21 07/27/21 07/27/21 18:59 06:59 18:59 Other: Weight 93.9 kg Weight in Grams 47000 Weight 93.9 kg - Constitutional Present: mild distress - Routine HEENT Exam Head: Present: normal inspection Eye: Present: EOMI - Routine Respiratory Exam Present: CTAB - Routine Cardiovascular Exam Cardiovascular: Present: S1, S2 - Routine Abdominal Exam Present: normal bowel sounds. Absent: organomegaly Assessment and Plan Patient Active problem list reviewed?: Yes (1) Renal mass Status: Acute Assessment and plan: This is a 60-year-old woman with chronic gastrointestinal complaints was noted to have abnormal CT findings on recent imaging. CT abdomen/pelvis without contrast performed on 07/08/2021 showed soft tissue fullness suspicious for masses in the right kidney measuring 3 cm at the superior pole. CT with contrast has been ordered by Dr. Watkins to delineate this further. Fat containing mass in the ascending colon for which direct visualization/colonoscopy was recommended. She has also an appointment with health safety manager for this. She is a chronic diabetic and has chronic kidney disease and anemia. She says she has a follow-up with her PCP in the upcoming days. Depending on imaging study and colonoscopy, I will be happy to see her if an oncological issue arises. Thank you. - Time Spent With Patient Time Spent with Patient (in minutes): 15
--- NOTE | 2021-07-27 12:50 | MHC.HEMONCMA ---
Patient came in for a consult today, states that she is not doing well. She states that she has been having severe left sided flank pain for over 2 years. Clinical summary was reviewed and updated. Patient did not have labs today. Per Dr Ayala's office note the patient does not need to return unless the other imagining warrants oncology follow up.
== END | disposition home or self-care (01) ==
LOC: HO.ONC 07-27 10:50
PROVIDERS: Referring Provider Student in an Organized Health Care Education/Training Program; Visit Provider Internal Medicine
DX: K63.89 Other specified diseases of intestine (principal); R93.421 Abnormal radiologic findings on diagnostic imaging of right kidney; E11.22 Type 2 diabetes mellitus with diabetic chronic kidney disease; N18.9 Chronic kidney disease, unspecified; D64.9 Anemia, unspecified
CPT/HCPCS: 99202

== ENCOUNTER 2024-07-27 08:55 | Outpatient (REF) | payer MEDICAID, SELFPAY ==
[2024-07-27 10:24] LABS: Blood Urea Nitrogen 26 mg/dL (9-16); Estimated Glomerular Filt Rate 25
== END 2024-07-27 08:56 | disposition home or self-care (01) ==
LOC: HO.LAB 08:55
PROVIDERS: PCP Family Medicine; Visit Provider Otolaryngology
DX: D10.5 Benign neoplasm of other parts of oropharynx (principal)
CPT/HCPCS: 36415; 82565; 84520

== ENCOUNTER 2024-09-13 12:13 | Outpatient (REF) | payer MEDICAID, SELFPAY | END 2024-09-13 12:14 | disposition home or self-care (01) | LOC: HO.LAB 12:13 | PROVIDERS: PCP Family Medicine; Visit Provider Nurse Practitioner Family | DX: K21.9 Gastro-esophageal reflux disease without esophagitis (principal); K86.89 Other specified diseases of pancreas; K58.1 Irritable bowel syndrome with constipation; R14.0 Abdominal distension (gaseous); K59.1 Functional diarrhea; Z91.09 Other allergy status, other than to drugs and biological substances | CPT/HCPCS: 36415; 86003; 99212 ==

== ENCOUNTER 2024-09-13 12:13 | Outpatient (AMB) | payer MEDICAID, SELFPAY ==
[2024-09-13 12:24] VITALS: BP 132/70; PULSE 96; O2SAT 97; BMI 38.5
--- NOTE | 2024-09-13 12:24 | A.OFFVIS_ITS ---
Vital Signs 09/13/24 12:24 Height 5 ft 2 in Weight 210 lb 5.136 oz BMI 38.5 BP 132/70 Blood Pressure Location Rt brachial Position Sitting Pulse 96 Pulse Source Pulse Oximeter Pulse Oximetry (%) 97 Oxygen Delivery Method Room Air Intake Visit Reasons: pt req appointment Intake Note: PRESCRIPTIONS LAST GENERATED omeprazole 20 mg tablet,delayed release?40 mg (2 x 20 mg) PO DAILY 180 tabs 2RF Zoe Montalvo 09/03/23 15:13 (Transmitted) Barium swallow done through [facility]. Relevant Flags or Indicators ? Requires Building Coordinator? N Ese presents in office today for a scheduled 1 year FUV. CC; No recent labs. Relevant GI Sx as reported per pt? Nausea ? Reflux -- Pt has been taking an extra omeprazole dose at night to attempt and alleviate their sx without much relief. ? Dysphagia / Painful Swallowing ? Fecal abnormalities -- Intermittently. Pt believes that it could be related to stress. o?? Constipation o?? Diarrhea * Pt also having epigastric pain. ? Hx of any recent surgeries? None Allergies Pork/Porcine Containing Products [Pork/Porcine Product Derivatives] Allergy ( Mild, Verified 09/13/24 12:25) SORES /ITCHING nickel Adverse Reaction (Verified 09/13/24 12:25) Swelling and irritation seasonal Allergy (Unknown, Uncoded 03/22/24 13:36) Itchy Eyes HPI HPI pt req appointment: Details: LAST VISIT: GERD (gastroesophageal reflux disease) Pancreatic insufficiency IBS (irritable bowel syndrome) Postprandial abdominal bloating Diarrhea Plan Continue current treatment with omeprazole 40 mg daily. Continue taking enzymes. Avoid dietary triggers. Stool study, GI panel order and pancreatic elastase. I will see her in 4 months, sooner on as needed basis. Patient is agreeable to this plan and verbalizes understanding of instructions. She was given the opportunity to ask questions and all questions answered. ? Thank you for allowing me to participate in the care. Orders Orders GI Panel Today R19.7 Pancreatic Elastase-1 Today R10.9 Medications Refilled omeprazole 40 mg (2 x 20 mg) PO DAILY 180 tabs 2RF K21.9 TODAY'S VISIT Patient is here today for follow-up. Patient reports that she was sent to have modified barium swallow by her PCP. Patient reports that that was performed at [facility]. Radiology report is available, however unable to find speech therapy results. Patient reports that she has been feeling little better. Difficulty of swallowing feels like in her throat. Reports postnasal drip. Does not remember seeing psychologist developmental or ENT. Patient reports postprandial abdominal bloating, occasional loose stools postprandially and sometimes constipation. Patient reports that she is taking digestive enzymes that she purchased on her own as she is allergic to pork and unable to take Creon. Patient is taking omeprazole in the morning, however sometimes she will take extra dose in the afternoon. Patient denies eating late at night. Patient denies melena, hematochezia, unintentional weight loss or ribbon like stools. Patient is due to go for colonoscopy next year. Patient reports some stress at home. States that her was diagnosed with on dementia. Patient will be going for holidays to [facility] Medical History Pancreatic insufficiency Pancreatic insufficiency Tubular adenoma CKD (chronic kidney disease) Anemia GERD (gastroesophageal reflux disease) Renal cyst Bladder prolapse, female, acquired Hx of gastric ulcer IBS (irritable bowel syndrome) Kidney stones High cholesterol Diabetes Surgical History Hx of endoscopy Hx of colonoscopy History of partial hysterectomy Hx of breast reduction, elective Hx of cholecystectomy Family History Other No pertinent family history Social History Household Members: Spouse Housing: Apartment Alcohol intake: never Patient Tobacco Use Status: Never used Tobacco Second Hand Smoke Exposure: No Review of Systems Const Denies weight gain and Denies weight loss ENT Reports no additional complaints, Denies dysphagia and Denies odynophagia Card Reports no additional complaints Resp Reports no additional complaints GI Denies abdominal pain, Denies belching, Denies melena, Reports bloating, Denies change in bowel habits, Reports constipation, Denies dysphagia, Denies excessive flatus, Denies dyspepsia, Denies heartburn, Denies diarrhea, Reports loose stools, Denies nausea, Denies odynophagia and Denies vomiting Reports no additional complaints Musc Reports no additional complaints Neuro Reports no additional complaints Psych Reports no additional complaints Endo Reports no additional complaints Physical Exam Vital Signs: Last Vital Signs Pulse 96 09/13/24 12:24 BP 132/70 09/13/24 12:24 Pulse Ox 97 09/13/24 12:24 Oxygen Delivery Method Room Air 09/13/24 12:24 BMI result Body Mass Index 38.5 Const General: healthy appearing and no acute distress Nutritional Appearance: obese Orientation/consciousness: patient oriented x3 Resp Effort & Inspection: normal respiratory effort, able to speak in complete sentences, no tracheal deviation and symmetric chest movement Auscultation: clear to auscultation bilaterally Cardio Rate: regular rate Heart sounds: S1 normal heart sound present and S2 normal heart sound present GI Inspection: Yes normal to inspection, No distended and Yes obesity Palpation (GI): Soft to palpation, not firm, nontender and No hepatosplenomegaly present Auscultation: normal bowel sounds General: Yes no CVA tenderness Back/Spine/Pelvis Back: no CVA tenderness Skin General skin exam: elasticity normal, turgor normal and dry skin Neuro General: patient oriented x3 Psych Appearance: grossly normal Mental Status: mental status grossly normal Assessment & Plan Assessment & Plan (1) GERD (gastroesophageal reflux disease): Code(s): K21.9 - Gastro-esophageal reflux disease without esophagitis Category: Medical Qualifiers: Esophagitis presence: esophagitis presence not specified Qualified Code(s): K21.9 - Gastro-esophageal reflux disease without esophagitis (2) Pancreatic insufficiency: Code(s): K86.89 - Other specified diseases of pancreas Category: Medical (3) IBS (irritable bowel syndrome): Code(s): K58.9 - Irritable bowel syndrome, unspecified Category: Medical Qualifiers: Irritable bowel syndrome type: with constipation Qualified Code(s): K58.1 - Irritable bowel syndrome with constipation (4) Postprandial abdominal bloating: Code(s): R14.0 - Abdominal distension (gaseous) (5) Diarrhea: Code(s): R19.7 - Diarrhea, unspecified Qualifiers: Diarrhea type: functional diarrhea Qualified Code(s): K59.1 - Functional diarrhea Plan Continue omeprazole daily. Avoid dietary triggers and late night snacking. Staying upright for minimum 3 hours after meals discussed with patient. High- fiber diet. Avoid food that is high in fat and greasy. Status post cholecystectomy symptoms of postprandial diarrhea could be related to that. Patient also reports abdominal bloating. Continue digestive enzymes with food 3 to 4 times a day. Patient reports postnasal drip. Will check RAST allergen test. Patient was encouraged to avoid carbs and lactose. Patient will return in 4 months we will discuss going for colonoscopy. Patient will not be back from [facility] till end of November. She is agreeable to plan of care and verbalizes understanding of instructions. She was given the opportunity to ask questions and all questions answered. Thank you for allowing me to participate in her care Orders: Orders Rast Allergen 09/13/24 K21.9 - Gastro-esophageal reflux disease without esophagitis Medications: Refilled omeprazole 40 mg (2 x 20 mg) PO DAILY 180 tabs 2RF K21.9 - Gastro-esophageal reflux disease without esophagitis Coding Level of Care Code Est Pt Level 4 (56536) Diagnoses Gastroesophageal reflux disease, unspecified whether esophagitis present K21.9 Esophagitis presence: esophagitis presence not specified Pancreatic insufficiency K86.89 Irritable bowel syndrome with constipation K58.1 Irritable bowel syndrome type: with constipation Postprandial abdominal bloating R14.0 Functional diarrhea K59.1 Diarrhea type: functional diarrhea Time Spent (min) 40 Comment 25 minutes spent with patient and additional 15 minutes spent reviewing her records
== END 2024-09-13 13:00 | disposition home or self-care (01) ==
LOC: HO.HGI 12:14
PROVIDERS: PCP Family Medicine; Visit Provider Nurse Practitioner Family
DX: K21.9 Gastro-esophageal reflux disease without esophagitis (principal); K86.89 Other specified diseases of pancreas; K58.1 Irritable bowel syndrome with constipation; R14.0 Abdominal distension (gaseous); K59.1 Functional diarrhea
CPT/HCPCS: 99214

== ENCOUNTER 2024-11-27 12:12 | Inpatient (IN) | payer MEDICAID, SELFPAY ==
[2024-11-27] VITALS (12 sets, daily range): BP systolic 102–126; BP diastolic 42–65; PULSE 73–123; RESP 18–118; TEMP 36.8–37.4; O2SAT 94–97; BMI 35.9; BMI 36.8
--- NOTE | ~2024-11-27 | XR_ITS ---
CLINICAL HISTORY: cough 2 view chest x-ray Comparison: CT - CHEST WITHOUT CONTRAST [id number] - 12/22/07 00:00 EST Findings: The lungs are clear. Heart size is normal. No acute fracture. IMPRESSION: 1. No acute findings. This document has been electronically signed by: Serina Nolan MD on 11/27/2024 13:35:59
--- NOTE | ~2024-11-27 | CT_ITS ---
CLINICAL HISTORY: cp, sob CT chest without contrast Comparison: CT - CHEST WITHOUT CONTRAST [id number] - 12/22/07 00:00 EST Findings: The prior CT report is not available for review. The heart size is normal. Moderate Atherosclerosis calcification of the coronary artery. Trace pericardial effusion. 1.2 cm right lobe thyroid nodule. No mediastinal lymph node enlargement. Large calcifications of the bilateral breast. No consolidation or effusion. 7.6 mm nodule of the left lower lobe series 4, image 79. There are additional micro nodules. The upper abdomen is unremarkable. Degenerative changes of the spine. IMPRESSION: Pulmonary nodule of the left lower lobe. CT chest follow-up in 3 months is recommended. Large calcification of the bilateral breast. Clinical correlation is recommended. Indeterminate 1.2 cm thyroid nodule. Additional findings as above. Fleischner Society 2017 Guidelines for incidentally detected indeterminate nodules in persons 35 years of age or older. Single Solid Nodules: 5 mm or smaller nodules need no follow-up in low risk, and [address] follow-up is optional in high risk patients. 6-8 mm nodules have optional [address] follow-up in low risk, and 6-[address] follow-up followed by 18-[address] follow-up if no change in high risk patients. 9 mm or larger nodules should consider CT, PET/CT, or biopsy at 3 months regardless of patient risk. Multiple Solid Nodules: 5 mm or smaller nodules need no follow-up in low risk, and [address] follow-up is optional in high risk patients. 6-8 mm nodules need 3-[address] follow-up followed by an optional 18-[address] follow-up regardless of patient risk. 9 mm or larger nodules should consider 3-[address] follow-up. For low risk 18-24 month follow-up is optional, whereas for high risk it is needed. Single Ground Glass Nodules: 5 mm or smaller nodules need no followup 6 mm and larger nodules need CT at 6-12 months to confirm persistence, then CT every 2 years until 5 years Single Subsolid Nodules: 5 mm or smaller nodules need no followup 6 mm and larger nodules need CT at 3-6 months to confirm persistence. If no change and solid component /T/lt;6 mm, then CT every year until 5 years Multiple Ground Glass or Subsolid Nodules: 5 mm or smaller nodules need CT at 3-6 months. If stable, optional CT at 2 and 4 years. 6 mm or larger nodules need CT at 3-6 months. Subsequent management based on most suspicious nodule This document has been electronically signed by: Serina Nolan MD on 11/27/2024 20:28:47
--- NOTE | 2024-11-27 12:36 | ED_ITS ---
HPI - General Adult General Chief complaint: Upper Respiratory Symptoms Stated complaint: ? bronchitis Time Seen by Provider: 11/27/24 13:14 Source: patient Mode of arrival: ambulatory Limitations: no limitations History of Present Illness ED Provider: Rajwinder Bhatti NP HPI narrative: Patient is a 64-year-old female who presents emergency department for evaluation, she reports over the past 2-3 weeks she has been experiencing a dry nonproductive cough, progressively worsening over the past week, she now has associated tactile fever, rhinorrhea, yesterday she began experiencing production with the cough a yellow/clear phlegm and feels associated chest tightness and shortness of breath. This is typically felt during episodes of cough that also experienced while at rest. She states she has experienced similar symptoms in the past when she has developed bronchitis. She denies any known sick contacts. She denies any headache, dizziness, lightheadedness, numbness or tingling of the extremities, nausea, vomiting, abdominal pain, lower extremity redness pain or swelling, history of VTE/malignancy Related Data Home Medications ?Medication ?Instructions ?Recorded ?Confirmed atorvastatin 20 mg tablet 20 mg PO DAILY 07/20/21 03/05/23 cetirizine 10 mg tablet 10 mg PO DAILY 07/20/21 03/05/23 insulin degludec 100 unit/mL (3 90 unit subcut BEDTIME 07/20/21 03/05/23 mL) subcutaneous pen (Tresiba FlexTouch U-100 insulin) insulin lispro 100 unit/mL 14 unit subcut TID 07/20/21 03/05/23 subcutaneous pen (Humalog KwikPen (U-100) Insulin) fluticasone propionate 50 1 spray intranasal DAILY 12/18/21 03/05/23 mcg/actuation nasal spray,suspension ascorbic acid (vitamin C) 1,000 mg 1,000 mg PO DAILY 05/07/23 tablet cholecalciferol (vitamin D3) 25 25 mcg PO DAILY 05/07/23 mcg (1,000 unit) capsule cleansing tea PO DAILY 05/07/23 digestive enzymes 1 cap PO BID 05/07/23 omega 7-cdv-wtn-fish oil 1,000 mg 1 cap PO DAILY 05/07/23 (120 mg-180 mg) capsule (Fish Oil) vitamin B complex (B 1 tab PO DAILY 05/07/23 Complex-Vitamin B12 tablet) hydroxyzine HCl 25 mg tablet 25 mg PO TID PRN 09/03/23 dapagliflozin propanediol 10 mg 5 mg PO DAILY 09/13/24 tablet (Farxiga) Previous Rx's ?Medication ?Instructions ?Recorded hydrocortisone 2.5 % topical cream 1 appl UT BID-QID PRN hemorrhoids 08/27/22 with perineal applicator #30 grams (Proctosol HC) famotidine 20 mg tablet 20 mg PO BEDTIME #90 tabs 05/07/23 acetaminophen 500 mg tablet 500 mg PO Q6H PRN fever or pain 05/22/23 (Tylenol Extra Strength) #14 tabs ketorolac 10 mg tablet 10 mg PO TID PRN pain 5 days #15 05/22/23 tabs incontinence pad, liner, disp #90 ea 06/23/23 diazepam 2 mg tablet (Valium) 2 mg PO BID PRN muscle spasm #8 08/31/23 tabs estradiol 0.01% (0.1 mg/gram) See Rx Instructions .Route 2XW 03/22/24 vaginal cream (Estrace) #42.5 grams omeprazole 20 mg tablet,delayed 40 mg (2 x 20 mg) PO DAILY #180 09/13/24 release tabs Allergies Allergy/AdvReac Type Severity Reaction Status Date / Time Pork/Porcine Containing Allergy Mild SORES Verified 11/27/24 12:38 Products /ITCHING [Pork/Porcine Product Derivatives] nickel AdvReac Swelling Verified 11/27/24 12:38 and irritation seasonal Allergy Unknown Itchy Eyes Uncoded 03/22/24 13:36 Review of Systems 2 Review of Systems: Yes all other systems are reviewed and are negative [facility] Past Medical History Attestation statement: The following information was validated with the patient. Source: old records reviewed Medical History Pancreatic insufficiency Pancreatic insufficiency Tubular adenoma CKD (chronic kidney disease) Anemia GERD (gastroesophageal reflux disease) Renal cyst Bladder prolapse, female, acquired Hx of gastric ulcer IBS (irritable bowel syndrome) Kidney stones High cholesterol Diabetes Surgical History Hx of endoscopy Hx of colonoscopy History of partial hysterectomy Hx of breast reduction, elective Hx of cholecystectomy Family History Family History Other No pertinent family history Social History Social History Household Members: Spouse Housing: Apartment Alcohol intake: never Patient Tobacco Use Status: Never used Tobacco Second Hand Smoke Exposure: No Advance Directives: No Advance Directives Information Provided: No Do you have a plan to hurt others: No Plan Physical Exam ED Vital Signs: Vital Signs - 24 hr 11/27/24 12:34 11/27/24 13:56 11/27/24 16:55 Temperature 99.3 F 98.3 F Pulse Rate 120 H 120 H 107 H Respiratory Rate 20 20 18 Blood Pressure 125/62 116/65 Pulse Oximetry 94 96 Oxygen Delivery Method Room Air Room Air 11/27/24 19:10 11/27/24 19:12 Temperature Pulse Rate 117 H 73 Respiratory Rate Blood Pressure 105/54 L 117/51 L Pulse Oximetry Oxygen Delivery Method BMI result Body Mass Index 35.9 Appearance: Alert.?Oriented to person, place and time. No acute distress.?Normal affect. Eyes: Pupils equal, round and reactive to light.? ENT: Pharynx normal.??TM normal bilaterally. Rhinorrhea. Erythematous nasal turbinates. Neck: Normal inspection.? Neck supple.??No cervical adenopathy CVS: Heart sounds normal. Normal heart rate and rhythm.? Pulses normal.?? Respiratory: No respiratory distress.? Lung sounds with rhonchi at the apices diminished at the bilateral bases?? Abdomen: Soft and non-tender. Normoactive bowel sounds. Skin: Skin warm and dry.? Normal skin color.? Extremities: No lower extremity edema.? No calf ttp? Neuro: Moves all extremities spontaneously. Sensation intact bilaterally. No focal neuro deficits. Ambulates with normal steady gait. Course Course Course Narrative: This is a Rapid Medical Examination (RME) performed by Yovani Godinez PA-C in triage. Full HPI, ROS, assessment and treatment plan per primary provider in the Main ED. 64 yo female here for eval of nasal congestion, productive cough and chest tightness x1 week. no known sick contacts. +congested cough Plan: viral swabs, CXR Reevaluation(s) Reevaluation #1: Critical troponin 702.1. Adding on serum labs including D-dimer, BNP, CRP. On review perhaps this is myocarditis, however completely as exclude ACS/ischemia. I consulted with Cardiology Dr. Schroeder, requesting bedside ultrasound to check for evidence of pericardial effusion, he does mentioned that there is perhaps a subtle elevation in lead III, and slight depression in aVL which may be indicative of ischemia, if no effusion advises initiating heparin infusion Time: 14:45 Reevaluation #2: Bedside ultrasound with my attending Dr. Malik revealing a trace to small effusion. Dr. Schroeder made aware. Orders placed for formal echocardiogram. D- dimer is not above cutoff level, will obtain CT of the chest however without contrast given history of CKD, lower clinical suspicion for pulmonary embolism at this time. Time: 15:19 Reevaluation #3: Echo without clear evidence of myocarditis, no wall motion abnormality or pericardial effusion. Awaiting CT of the chest for further evaluation. Obtaining blood cultures lactic acid, will cover with Rocephin, provide 1L normal saline IV fluid. She has no hypotension or evidence of organ dysfunction at this time. Cardiology Dr. Schroeder recommending to await CT of the chest, if no evidence of infectious etiology to explain cause for symptoms would then favor initiating anticoagulation with heparin Time: 17:35 Additional Reevaluation(s): 18:53 - Patient signed out to Maite HIGUERA pending radiologist impression of CT and disposition as above. 847 pm I Eugenia Lazo PA-C have accepted care of the patient and signed out pending imaging and final disposition. IMPRESSION: Pulmonary nodule of the left lower lobe. CT chest follow-up in 3 months is recommended. Large calcification of the bilateral breast. Clinical correlation is recommended. Indeterminate 1.2 cm thyroid nodule. Additional findings as above. Given no evidence of infection, the plan was to initiate heparin, giving aspirin, the hospitalist is aware, she will be admitted now. Medications Administered Discontinued Medications Generic Name Dose Route Start Last Admin Trade Name Freq PRN Reason Stop Dose Admin Ceftriaxone Sodium 1 gm 11/27/24 17:30 11/27/24 17:48 Ceftriaxone Sodium 1 Gm Vial IVPUSH 11/27/24 17:31 1 gm ONCE ONE Administration Levalbuterol HCl 1.25 mg/ 0 mg 11/27/24 13:39 11/27/24 13:54 Ipratropium [place] 0.5 mg INHALE 11/27/24 13:40 1 dose ONCE ONE Administration Guaifenesin/Codeine Phosphate 5 ml 11/27/24 18:39 11/27/24 18:56 Guaifen/Codeine Sf 200/20/10ml 10 Ml Liquid PO 11/27/24 18:40 5 ml ONCE ONE Administration Sodium Chloride 1,000 mls @ 999 mls/hr 11/27/24 17:45 11/27/24 18:56 Ns IV 11/27/24 18:45 Infused .Q1H1M SHANDRA Infusion Medical Decision Making Medical Decision Making [facility] Narrative: Patient is a 64-year-old female with past medical history of pancreatic insufficiency, diabetes, GERD, tubular adenoma, renal cyst, IBS, bladder prolapse, presenting for evaluation of upper and lower respiratory symptoms with cough rhinitis chest tightness and tactile fever. COVID-19 testing _. Influenza testing _. Chest x-ray is without consolidation or infiltrate to suggest pneumonia. On auscultation she has rhonchi at the apices in lung sounds diminished at the bilateral bases, she admits that in the past when she has felt as badly as this she had significant benefit from a nebulizer treatment which she is requesting at this time. She did admit that previously she was given albuterol, she arrives tachycardic in the 120s which she states is common when she is sick, although I did discuss with her that this may further increase her heart rate we will trial 1 Xopenex instead. Given her age and past medical history, will obtain serum labs including troponin to exclude ACS as etiology for pain though I suspect that this is more consistent with muscular pain/inflammation in the setting of respiratory illness. She has a persistent cough on evaluation, no tachypnea or hypoxia, she does appear fatigued. However she is able to Speaking clear full sentences, ambulatory with steady gait. Differential Diagnosis Differential Diagnoses: The differential diagnosis associated with the presentation includes ( See narrative above) Admission/Observation Consideration of admission/observation: Escalation of care including admission/observation considered ( see narrative above) Lab Data [facility] Lab Attestation statement: I reviewed the patient's lab results. ( see narrative above) 11/27/24 14:06 11/27/24 14:07 Labs: Lab Results 11/27/24 11/27/24 11/27/24 Range/Units 12:43 14:06 14:07 WBC 14.0 H (4.8-10.8) X10*3/uL RBC 4.15 L (4.20-5.50) X10*6/uL Hgb 12.0 (12.0-16.0) g/dl Hct 36.9 L (37.0-47.0) % MCV 88.9 (80.0-98.0) fL MCH 28.9 (27.0-33.0) pg MCHC 32.5 (31.0-35.0) g/dl RDW 15.7 (11.0-16.0) % Plt Count 294 (160-400) X10*3/uL MPV 11.3 (9.4-12.3) fL Immature Gran % (Auto) 0.4 (0.0-0.4) % Neut % (Auto) 76.2 H (45-73) % Lymph % (Auto) 15.8 L (20-40) % [place] % (Auto) 6.2 (2-11) % Eos % (Auto) 1.0 (0-4) % Baso % (Auto) 0.4 (0-2) % Lymph # (Auto) 2.2 (1.2-4.9) X10*3/uL [place] # (Auto) 0.9 (0.1-1.2) X10*3/uL Eos # (Auto) 0.1 (0.0-0.4) X10*3/uL Baso # (Auto) 0.1 (0.0-0.2) X10*3/uL Abs Immat Gran (auto) 0.06 H (0.00-0.03) X10*3/uL Absolute Neuts (auto) 10.7 H (2.0-8.3) x10*3/uL Absolute Nucleated RBC 0.000 (0.0-0.012) X10*3/uL Nucleated RBC % (auto) 0.0 (0.0-0.2) /100WBC PT 12.1 (10.9-12.4) SEC INR 1.0 (0.9-1.1) D-Dimer High Sensitivty 204 NG/ML Sodium 140 (135-145) mmol/L Potassium 4.0 (3.3-5.1) mmol/L Chloride 108 (96-108) mmol/L Carbon Dioxide 26 (22-29) mmol/L Anion Gap 10 L (12-20) BUN 32 H (9-16) mg/dL Creatinine 1.60 H (0.5-1.4) mg/dL Estim Creat Clear Calc 36.8 Estimated GFR 32 Random Glucose 149 H (60-115) mg/dL Lactic Acid (0.5-2.0) mmol/L Calcium 8.6 D (8.4-10.2) mg/dL Total Bilirubin 0.4 (0.0-1.0) mg/dL AST 22 (5-31) U/L ALT 9 (0-31) U/L Alkaline Phosphatase 108 (39-117) U/L Troponin I High Sens 702.1 H* (<3.5-17.0) ng/L C-Reactive Protein 4.57 H (< or = 0.50) mg/dL B-Natriuretic Peptide 171 H (<100) pg/mL Total Protein 6.7 (6.5-8.0) g/dL Albumin 3.5 (3.5-5.0) g/dL Influenza Type A (PCR) NEGATIVE (Negative) Influenza Type B (PCR) NEGATIVE (Negative) RSV RNA Qual (PCR) NEGATIVE (Negative) SARS-CoV-2 RNA (RT-PCR) NEGATIVE (Negative) 11/27/24 11/27/24 Range/Units 16:48 17:48 WBC (4.8-10.8) X10*3/uL RBC (4.20-5.50) X10*6/uL Hgb (12.0-16.0) g/dl Hct (37.0-47.0) % MCV (80.0-98.0) fL MCH (27.0-33.0) pg MCHC (31.0-35.0) g/dl RDW (11.0-16.0) % Plt Count (160-400) X10*3/uL MPV (9.4-12.3) fL Immature Gran % (Auto) (0.0-0.4) % Neut % (Auto) (45-73) % Lymph % (Auto) (20-40) % [place] % (Auto) (2-11) % Eos % (Auto) (0-4) % Baso % (Auto) (0-2) % Lymph # (Auto) (1.2-4.9) X10*3/uL [place] # (Auto) (0.1-1.2) X10*3/uL Eos # (Auto) (0.0-0.4) X10*3/uL Baso # (Auto) (0.0-0.2) X10*3/uL Abs Immat Gran (auto) (0.00-0.03) X10*3/uL Absolute Neuts (auto) (2.0-8.3) x10*3/uL Absolute Nucleated RBC (0.0-0.012) X10*3/uL Nucleated RBC % (auto) (0.0-0.2) /100WBC PT (10.9-12.4) SEC INR (0.9-1.1) D-Dimer High Sensitivty NG/ML Sodium (135-145) mmol/L Potassium (3.3-5.1) mmol/L Chloride (96-108) mmol/L Carbon Dioxide (22-29) mmol/L Anion Gap (12-20) BUN (9-16) mg/dL Creatinine (0.5-1.4) mg/dL Estim Creat Clear Calc Estimated GFR Random Glucose (60-115) mg/dL Lactic Acid 1.2 (0.5-2.0) mmol/L Calcium (8.4-10.2) mg/dL Total Bilirubin (0.0-1.0) mg/dL AST (5-31) U/L ALT (0-31) U/L Alkaline Phosphatase (39-117) U/L Troponin I High Sens 743.6 H* (<3.5-17.0) ng/L C-Reactive Protein (< or = 0.50) mg/dL B-Natriuretic Peptide (<100) pg/mL Total Protein (6.5-8.0) g/dL Albumin (3.5-5.0) g/dL Influenza Type A (PCR) (Negative) Influenza Type B (PCR) (Negative) RSV RNA Qual (PCR) (Negative) SARS-CoV-2 RNA (RT-PCR) (Negative) Independent Interpretation I performed an independent interpretation of an: EKG (EKG reveals a sinus tachycardia with ventricular rate of 113, QTC 447, no ST elevation, no ST depression,) and Plain X-Ray (See narrative above) Radiology Impression Discussion of test interpretation with radiology: I have reviewed the radiologist's reading. Radiologist Impression: 2 view chest x-ray Comparison: CT - CHEST WITHOUT CONTRAST [id number] - 12/22/07 00:00 EST Findings: The lungs are clear. Heart size is normal. No acute fracture. IMPRESSION: 1. No acute findings. External Record Review External record reviewed: Outpatient record Prescription Management I considered prescription management with: Pain Medication ( acetaminophen/ibuprofen) and Antibiotic Critical Care Time Critical Care Time Critical Care Time: Yes Total Critical Care Time: 60 Attestation: I personally attest to this critical care time spent taking care of the patient exclusive of all other billable procedures was approximately 60 minutes including initial evaluation of patient, ordering tests, x-ray interpretation, EKG interpretation, medical consultation, documentation, re-evaluation. Discharge Plan Discharge Clinical Impression: Chest pain, Bronchitis, Elevated troponin Patient Disposition: Admitted As Inpatient Prescriptions: No Action hydrocortisone [Proctosol HC] 2.5 % cream with perineal applicator 1 appl UT BID-QID PRN (Reason: hemorrhoids) Qty: 30 3RF (DME) incontinence pad, liner, disp Pad See Rx Instructions .Route Qty: 90 6RF Rx Instructions: As directed: change pads Q2-3 hours/PRN fluticasone propionate 50 mcg/actuation spray,suspension 1 spray intranasal DAILY Farxiga 10 mg tablet 5 mg PO DAILY ketorolac 10 mg tablet 10 mg PO TID PRN (Reason: pain) 5 Days Qty: 15 0RF acetaminophen [Tylenol Extra Strength] 500 mg tablet 500 mg PO Q6H PRN (Reason: fever or pain) Qty: 14 0RF diazepam [Valium] 2 mg tablet 2 mg PO BID PRN (Reason: muscle spasm) Qty: 8 0RF insulin lispro [Humalog KwikPen Insulin] 100 unit/mL insulin pen 14 unit subcut TID Tresiba FlexTouch U-100 100 unit/mL (3 mL) insulin pen 90 unit subcut BEDTIME cetirizine 10 mg tablet 10 mg PO DAILY atorvastatin 20 mg tablet 20 mg PO DAILY omega 6-ttw-fkd-fish oil [Fish Oil] 1,000 mg (120 mg-180 mg) capsule 1 cap PO DAILY vitamin B complex [B Complex-Vitamin B12] Tablet 1 tab PO DAILY cholecalciferol (vitamin D3) 25 mcg (1,000 unit) capsule 25 mcg PO DAILY ascorbic acid (vitamin C) 1,000 mg tablet 1,000 mg PO DAILY cleansing tea PO DAILY digestive enzymes Capsule 1 cap PO BID Rx Instructions: administer with food; swallow whole; do not crush/chew/dissolve/break/cut famotidine 20 mg tablet 20 mg PO BEDTIME Qty: 90 2RF estradiol [Estrace] 0.01 % (0.1 mg/gram) cream See Rx Instructions .ROUTE 2XW Qty: 42.5 1RF Rx Instructions: pea sized amount to urethra daily at bedtime hydroxyzine HCl 25 mg tablet 25 mg PO TID PRN omeprazole 20 mg tablet,delayed release (DR/EC) 40 mg PO DAILY Qty: 180 2RF Print Language: Azeri
--- NOTE | 2024-11-27 12:38 | ECG_ITS ---
Test Reason : CHEST PAIN Blood Pressure : */* mmHG Vent. Rate : 113 BPM Atrial Rate : 113 BPM P-R Int : 134 ms QRS Dur : 76 ms QT Int : 326 ms P-R-T Axes : 53 -10 85 degrees QTcB Int : 447 ms Sinus tachycardia Low voltage QRS Inferior infarct , age undetermined Cannot rule out Anterior infarct , age undetermined Abnormal ECG When compared with ECG of 13-Nov-2012 10:18, Inferior Q waves with subtle depressions in aVL. Consider ischemia. Referred By: Shakira Godinez Electronically Signed By: Pawel Schroeder
[2024-11-27 13:46] LABS: Influenza A PCR NEGATIVE (Negative); Influenza B PCR NEGATIVE (Negative); Resp Syncy Virus RNA Qual PCR NEGATIVE (Negative); SARS COV2 PCR INHOUSE NEGATIVE (Negative)
[2024-11-27] MEDS: levalbuterol HCL 1.25 MG, Ipratropium Bromide 0.5 MG INHALE (13:54)
[2024-11-27 14:12] LABS: Basophils Absolute Auto 0.1 X10*3/uL (0.0-0.2); Basophils Percent Auto 0.4 % (0-2); Eosinophils Absolute Auto 0.1 X10*3/uL (0.0-0.4); Hematocrit 36.9 % (37.0-47.0); Imm Gran Abs Auto 0.06 X10*3/uL (0.00-0.03); Imm Gran Pct Auto 0.4 % (0.0-0.4); Lymphocytes Absolute Auto 2.2 X10*3/uL (1.2-4.9); Lymphocytes Percent Auto 15.8 % (20-40); MANUAL DIFF FLAG NO; Mean Corpuscular HGB Conc 32.5 g/dl (31.0-35.0); Mean Corpuscular Hemoglobin 28.9 pg (27.0-33.0); Mean Corpuscular Volume 88.9 fL (80.0-98.0); Mean Platelet Volume 11.3 fL (9.4-12.3); Monocytes Absolute Auto 0.9 X10*3/uL (0.1-1.2); Monocytes Percent Auto 6.2 % (2-11); Neutrophils Absolute Auto 10.7 x10*3/uL (2.0-8.3); Neutrophils Percent Auto 76.2 % (45-73); Platelet Count 294 X10*3/uL (160-400); Red Blood Count 4.15 X10*6/uL (4.20-5.50); Red Cell Distribution Width 15.7 % (11.0-16.0)
[2024-11-27 14:18] LABS: Prothrombin Time 12.1 SEC (10.9-12.4)
[2024-11-27 14:25] LABS: Alanine Aminotransferase 9 U/L (0-31); Albumin Level 3.5 g/dL (3.5-5.0); Alkaline Phosphatase 108 U/L (39-117); Anion Gap 10 (12-20); Aspartate Amino Transferase 22 U/L (5-31); Bilirubin Total 0.4 mg/dL (0.0-1.0); Blood Urea Nitrogen 32 mg/dL (9-16); Calcium 8.6 mg/dL (8.4-10.2); Carbon Dioxide 26 mmol/L (22-29); Chloride 108 mmol/L (96-108); Creatinine Clr Calc Pharmacy 36.8; Estimated Glomerular Filt Rate 32; Glucose Random 149 mg/dL (60-115); Sodium 140 mmol/L (135-145); Total Protein 6.7 g/dL (6.5-8.0)
[2024-11-27 14:35] LABS: Troponin-I High Sensitivity 702.1 ng/L (<3.5-17.0)
--- NOTE | 2024-11-27 14:39 | ECG_ITS ---
Test Reason : abnormal labs Blood Pressure : */* mmHG Vent. Rate : 109 BPM Atrial Rate : 109 BPM P-R Int : 138 ms QRS Dur : 76 ms QT Int : 334 ms P-R-T Axes : 46 -17 86 degrees QTcB Int : 449 ms Sinus tachycardia Inferior infarct (cited on or before 23-Apr-2011) Abnormal ECG When compared with ECG of 27-Nov-2024 12:45, No significant change was found Referred By: Rajwinder Bhatti Electronically Signed By: Pawel Schroeder
[2024-11-27 15:12] LABS: D Dimer High Sensitivity 204 NG/ML
[2024-11-27 15:14] LABS: C Reactive Protein 4.57 mg/dL (< or = 0.50)
--- NOTE | 2024-11-27 15:18 | CA_ITS ---
Transthoracic Echocardiogram Patient (Last, First, Middle): Ese Mendoza, Gender: Female Date of : 1960 Age: 64 Procedure Date: 11/27/2024 Procedure Type: Transthoracic Echocardiogram Location: ER Height: 157.48 cm Weight: 88.91 kg BSA: 1.90 m2 Heart Rate: bpm BP: 125 / 62 mmHg Rectification Printer: SADE Referring MD: Rajwinder Bhatti CNP Symptoms: chest heavy, shortness of breath, trace effusion Study Quality: Technically Difficult/Contrast Conclusions: - Normal left ventricular cavity size. There is mildly increased left ventricular wall thickness. The left ventricular systolic function is hyperdynamic. The visually estimated ejection fraction is >70%. - Elevated filling pressures. - Normal right ventricular cavity size and systolic function. - There is no evidence of regional wall motion abnormalities. Findings Left Ventricle Normal left ventricular cavity size. There is mildly increased left ventricular wall thickness. The left ventricular systolic function is hyperdynamic. The visually estimated ejection fraction is >70%. There is no evidence of regional wall motion abnormalities. Abnormal diastolic function is noted. Spectral Doppler is indicative of an impaired relaxation filling pattern. Elevated filling pressures. Right Ventricle Normal right ventricular cavity size and systolic function. Atria Both atria are normal in size. Aortic Valve There is a normal trileaflet aortic valve. There is mild calcification of the aortic valve. There is no aortic valve stenosis. There is no aortic valve regurgitation. Mitral Valve Normal mitral valve structure and function. There is no mitral valve regurgitation. There is no mitral valve stenosis. Pulmonic Valve The pulmonic valve is likely normal. Tricuspid Valve Normal tricuspid valve structure. There is trace tricuspid valve regurgitation. Normal right atrial pressure. There is no evidence of pulmonary hypertension. Great Vessels All visible segments of the aorta are normal in size. The visualized portions of the pulmonary artery and branches are normal. Venous The inferior vena cava is normal in size and collapses greater than 50% with inspiration. Pericardium/Pleural There is no evidence of pericardial effusion. Measurements 2D Linear Measurements IVSd: 1.27 0.6-0.9/0.6-1.0 cm LVIDd: 3.13 3.9-5.3/4.2-5.9 cm LVIDd Index: 1.65 2.4-3.2/2.2-3.1 cm/m2 LVIDs: 2.33 2.0-3.6 cm LVPWd: 1.06 0.7-1.1 cm Ao Root: 2.80 2.1-3.5 cm LA Diam: 3.20 2.7-3.8/3.0-4.0 cm LAIDs Index: 1.68 1.5-2.3 cm/m2 LV Mass: 137.39 67-162/88-224 g LV Mass Index: 72.31 43-95/49-115 g/m2 LVOT Diam: 2.00 3.0+(-)1.3 cm Mitral Valve MV Pk E: 0.84 MV PK A: 1.17 MV Decel Time: 108.00 E/A: 0.70 E'Lateral: 4.35 E'Medial: 5.77 E/E' Med: 14.60 E/E' Lat: 19.30 PHT: 32.00 MVA PHT: 6.88 Decel [place]: 7.76 Aortic Valve AoV Pk Ricardo: 1.36 AoV Mn Ricardo: 0.96 AoV VTI: 0.24 AoV Pk Grad: 7.00 Aov Mn Grad: 4.00 SHAWANDA Cont.VTI: 2.38 LVOT LVOT Pk Ricardo: 0.98 LVOT Mn Ricardo: 0.64 LVOT VTI: 0.18 LVOT Pk Grad: 4.00 LVOT Mn Grad: 2.00 LVOT Diam: 2.00 LVOT Area: 3.14 Diastolic Function MV Pk E: 0.84 MV Pk A: 1.17 E/A: 0.70 E'Medial: 5.77 E/E' Med: 14.60 E' Laterial: 4.35 E/E' Lat: 19.30 Right Ventricle TAPSE (mm): 20.30 TVS' Ricardo: 11.30 Tricuspid Valve TR Pk Ricardo: 2.40 TR Pk Grad: 23.00 RA Press: 3.00 RVSP: 26.00 Great Vessels Aorta Ao Root-2D: 2.80 2.0-3.7 cm Ao Asc: 3.20 2.1-3.4 cm Ao Arch: 2.50 Updated in Other Vendor System with Status of Final Pawel Schroeder MD electronically signed on 11/27/2024 5:23:14 PM with status of Final
[2024-11-27 15:26] LABS: B Type Natriuretic Peptide 171 pg/mL (<100)
[2024-11-27 17:17] LABS: Troponin-I High Sensitivity 743.6 ng/L (<3.5-17.0)
[2024-11-27] MEDS: cefTRIAXone sodium 1 GM VIAL IVPUSH (17:48)
[2024-11-27] MEDS: 0.9 % Sodium Chloride 1,000 ML 999 ML IV (17:49)
[2024-11-27 18:10] LABS: Lactic Acid 1.2 mmol/L (0.5-2.0)
[2024-11-27] MEDS: guaiFEN/Codeine SF 200/20/10ML 10 ML LIQUID 5 ML PO (18:56)
--- NOTE | 2024-11-27 20:22 | P.HPHOSP_ITS ---
History of Present Illness Date of Service: 11/27/24 Attending physician on admission: Ludin Carlos Chief Complaint: Cough, fever, rhinorrhea Pt is a 64-year-old female with a PMH HTN, HLD, insulin-dependent type 2 diabetes, significant for CKD 3,?pancreatic insufficiency, IBS, and GERD who presents to the ED with?URI like symptoms including rhinorrhea, sneezing, sore throat, nonproductive cough, and shortness breath x2 weeks. Lost her voice at one point. Pt initially thought she had bronchitis which she reports getting every 3-4 years, also believe she was getting better a few days ago however symptoms returned and worsened the past 1-2 days. Reports has had chest tightness/pressure associated with breathing and cough up until this morning when chest pressure changed and became constant and radiating to back. Has felt fatigued with generalized weakness. No fever or chills. Denies nausea, vomiting, abdominal pain. Denies polyuria or dysuria. In the ED pt with low-grade fever of 99.3, tachycardia 120, and soft BP as low as 105/54. Labs were significant for leukocytosis 14.0, initial troponin 702.1 with repeat flat at 743.6, BNP 171, and CRP elevated at 4.57. No significant electrolyte abnormalities. Creatinine 1.60, though renal function around baseline. Lactic acid WNL at 1.2. Tested negative for flu, RSV, COVID. CXR showed no acute findings. CTA of chest found 7.6 mm pulmonary nodule in left lower lobe, as well as large calcification of bilateral breast and indeterminate 1.2 cm thyroid nodule. EKG demonstrated sinus tachycardia of 134 without with Q-waves in inferior leads. Repeat EKG with sinus tachycardia of 113 wiht inferior Q-waves and subtle depressions in aVL consistent ischemia. ED contacted Cardiology where bedside echo was done that showed no wall motion abnormality or pericardial effusion or clear evidence of myocarditis. If no obvious infectious source was found, Cardiology recommended starting heparin drip. Pt was treated with DuoNebs, IVF, guaifenesin, and ceftriaxone. Pt will be admitted to the hospital for treatment and further evaluation of NSTEMI in the setting of SIRS criteria with unclear infectious source.. Review of Systems 2 Review of Systems: Negative except for that which is stated in the [facility] Medical History Pancreatic insufficiency Pancreatic insufficiency Tubular adenoma CKD (chronic kidney disease) Anemia GERD (gastroesophageal reflux disease) Renal cyst Bladder prolapse, female, acquired Hx of gastric ulcer IBS (irritable bowel syndrome) Kidney stones High cholesterol Diabetes Family History Other No pertinent family history Surgical History Hx of endoscopy Hx of colonoscopy History of partial hysterectomy Hx of breast reduction, elective Hx of cholecystectomy Social History Household Members: Spouse Housing: Apartment Unable to assess alcohol history related to: Unknown Alcohol intake: never Patient Tobacco Use Status: Never used Tobacco Second Hand Smoke Exposure: No Meds Allergies Allergy/AdvReac Type Severity Reaction Status Date / Time Pork/Porcine Containing Allergy Mild SORES Verified 11/27/24 12:38 Products /ITCHING [Pork/Porcine Product Derivatives] nickel AdvReac Swelling Verified 11/27/24 12:38 and irritation seasonal Allergy Unknown Itchy Eyes Uncoded 03/22/24 13:36 Home Medications ?Medication ?Instructions ?Recorded ?Confirmed ?Last Taken ?Type atorvastatin 20 mg tablet 20 mg PO DAILY 07/20/21 03/05/23 Unknown History cetirizine 10 mg tablet 10 mg PO DAILY 07/20/21 03/05/23 Unknown History insulin degludec 100 unit/mL (3 90 unit subcut BEDTIME 07/20/21 03/05/23 Unknown History mL) subcutaneous pen (Tresiba FlexTouch U-100 insulin) insulin lispro 100 unit/mL 14 unit subcut TID 07/20/21 03/05/23 Unknown History subcutaneous pen (Humalog KwikPen (U-100) Insulin) fluticasone propionate 50 1 spray intranasal DAILY 12/18/21 03/05/23 Unknown History mcg/actuation nasal spray,suspension ascorbic acid (vitamin C) 1,000 mg 1,000 mg PO DAILY 05/07/23 Unknown History tablet cholecalciferol (vitamin D3) 25 25 mcg PO DAILY 05/07/23 Unknown History mcg (1,000 unit) capsule cleansing tea PO DAILY 05/07/23 Unknown History digestive enzymes 1 cap PO BID 05/07/23 Unknown History omega 1-uin-vss-fish oil 1,000 mg 1 cap PO DAILY 05/07/23 Unknown History (120 mg-180 mg) capsule (Fish Oil) vitamin B complex (B 1 tab PO DAILY 05/07/23 Unknown History Complex-Vitamin B12 tablet) hydroxyzine HCl 25 mg tablet 25 mg PO TID PRN 09/03/23 Unknown History dapagliflozin propanediol 10 mg 5 mg PO DAILY 09/13/24 Unknown History tablet (Farxiga) Physical Exam 2 Vital Signs and Narrative: Vital Signs: Last Vital Signs Temp 98.3 F 11/27/24 16:55 Pulse 73 11/27/24 19:12 Resp 18 11/27/24 16:55 BP 117/51 L 11/27/24 19:12 Pulse Ox 96 11/27/24 16:55 O2 Del Method Room Air 11/27/24 16:55 BMI result Body Mass Index 35.9 General: AOx3, no acute distress Resp: CTA bilaterally CVS: S1, S2, RRR GI: +BS, NT, no distention Skin: Warm, dry Neuro: Cranial nerves II-XII grossly intact bilaterally. Motor grossly intact bilaterally Extremities: No edema Psych: Appropriate affect Results Labs 11/27/24 14:06 11/27/24 14:07 Labs: Laboratory Results - last 24 hr 11/27/24 11/27/24 11/27/24 12:43 14:06 14:07 MCV 88.9 MCH 28.9 MCHC 32.5 RDW 15.7 Plt Count 294 MPV 11.3 Immature Gran % (Auto) 0.4 Neut % (Auto) 76.2 H Lymph % (Auto) 15.8 L Hendricks % (Auto) 6.2 Eos % (Auto) 1.0 Baso % (Auto) 0.4 Lymph # (Auto) 2.2 Hendricks # (Auto) 0.9 Eos # (Auto) 0.1 Baso # (Auto) 0.1 Abs Immat Gran (auto) 0.06 H Absolute Neuts (auto) 10.7 H Absolute Nucleated RBC 0.000 Nucleated RBC % (auto) 0.0 PT 12.1 INR 1.0 D-Dimer High Sensitivty 204 Anion Gap 10 L Estim Creat Clear Calc 36.8 Estimated GFR 32 Random Glucose 149 H Lactic Acid Calcium 8.6 D Total Bilirubin 0.4 AST 22 ALT 9 Alkaline Phosphatase 108 Troponin I High Sens 702.1 H* C-Reactive Protein 4.57 H B-Natriuretic Peptide 171 H Total Protein 6.7 Albumin 3.5 Influenza Type A (PCR) NEGATIVE Influenza Type B (PCR) NEGATIVE RSV RNA Qual (PCR) NEGATIVE SARS-CoV-2 RNA (RT-PCR) NEGATIVE 11/27/24 11/27/24 16:48 17:48 MCV MCH MCHC RDW Plt Count MPV Immature Gran % (Auto) Neut % (Auto) Lymph % (Auto) Hendricks % (Auto) Eos % (Auto) Baso % (Auto) Lymph # (Auto) Hendricks # (Auto) Eos # (Auto) Baso # (Auto) Abs Immat Gran (auto) Absolute Neuts (auto) Absolute Nucleated RBC Nucleated RBC % (auto) PT INR D-Dimer High Sensitivty Anion Gap Estim Creat Clear Calc Estimated GFR Random Glucose Lactic Acid 1.2 Calcium Total Bilirubin AST ALT Alkaline Phosphatase Troponin I High Sens 743.6 H* C-Reactive Protein B-Natriuretic Peptide Total Protein Albumin Influenza Type A (PCR) Influenza Type B (PCR) RSV RNA Qual (PCR) SARS-CoV-2 RNA (RT-PCR) Assessment and Plan (1) NSTEMI (non-ST elevated myocardial infarction): Status: Acute Plan Pt is a 64-year-old female with a PMH HTN, HLD, insulin-dependent type 2 diabetes, significant for CKD 3,?pancreatic insufficiency, IBS, and GERD who presents to the ED with?URI like symptoms including rhinorrhea, sneezing, sore throat, nonproductive cough, and shortness breath x2 weeks. Pt will be admitted to the hospital for treatment and further evaluation of NSTEMI. NSTEMI Serial troponins elevated at 702.1 with repeat 743.6 Pt with constant central chest pressure radiating to back since today, EKG with slight ischemic changes Will place on heparin drip Aspirin, statin Echocardiogram Nitroglycerin p.r.n. Monitor on telemetry URI symptoms with SIRS criteria Sore throat, sneezing, rhinorrhea, nonproductive cough x2 weeks Unclear etiology: CXR and CT of chest negative for pneumonia, pulmonary edema, or pleural effusions; COVID/RSV/flu negative; no GI complaints Will check respiratory panel, strep pyogenes, and UA Meets SIRS criteria with tachycardia and leukocytosis; lactic acid WNL Pt received ceftriaxone in the ED Will hold off on additional antibiotics at this time pending additional workup Pulmonary nodule Incidental CT finding Pt appears to have been aware of this Recommendation is to follow up outpatient in 3 months for repeat imaging if no previous imaging done HLD Continue statin Insulin-dependent type 2 diabetes Sliding-scale insulin, Lantus Diabetic diet GERD Continue famotidine Full Code Attending:?Dr. Carlos DVT Prophylaxis: On heparin drip Pt will require a hospitalization of at least two nights for treatment of?NSTEMI requiring close cardiac monitoring and heparin drip. Quality Stroke Does the patient have a stroke diagnosis?: No VTE Prior VTE?: No VTE Risk Level:: Medical - moderate - high VTE Device Contraindication: Treatment Not Indicated VTE Drug Contraindication: N/A - Med Ordered
[2024-11-27] MEDS: Aspirin 325 MG TABLET PO (21:38)
[2024-11-27] MEDS: Heparin Sodium,Porcine 5,000 UNIT/ML VIAL 4000 UNIT IVPUSH (21:43)
[2024-11-27 21:47] LABS: Partial Thromboplastin Time 26.8 SEC (26.0-36.8)
[2024-11-27] MEDS: Heparin Sodium,Porcine/1/2NS 25,000 UNIT/250 ML IV.SOLN 10 UNIT IVCONT (21:52)
[2024-11-27 22:52] LABS: Glucose, Whole Blood 226 mg/dL (60-115)
[2024-11-27 23:15] LABS: Appearance Urine Clear; Color Urine Yellow; Glucose Urine UA >=1000 mg/dL (Negative); Leukocyte Esterase Urine Trace (Negative); Nitrite Urine Positive (Negative); PH 5.5 (5.0-9.0); UMIC TRIGGER UACC YES; Urine Blood Negative (Negative); Urine Ketones Negative (Negative); Urine Protein Negative (Neg-Trace)
[2024-11-27 23:18] LABS: Bacteria Urine Trace (None Seen); Hyaline Casts Urine 0-2 /LPF (0-2); RBC Urine 0-2 /HPF (0-2); Squamous Epithelial Cell Urine 0-2 /HPF (0-2); UACC Culture Trigger YES
[2024-11-28] VITALS (16 sets, daily range): BP systolic 116–161; BP diastolic 58–80; PULSE 97–109; RESP 12–22; TEMP 36.2–36.6; O2SAT 92–99
[2024-11-28] MEDS: Atorvastatin Calcium 40 MG TABLET PO ×2 (00:54→20:20)
[2024-11-28] MEDS: 0.9 % Sodium Chloride Flush 3 ML SYRINGE IVFLUSH (00:54)
--- NOTE | 2024-11-28 04:45 | PC.NURSE ---
Patient has been comfortable the majority of this RNs shift. Patient arrived to ED 10 from EM 5 earlier this shift. Dx NSTEMI due to elevated Troponin in 700s. Patient reports 1 out of 10 'chest discomfort', describes as it's more pressure than pain . Has been coughing intermittently. Serology negative, full respiratory panel is pending. Heparin drip infusing as ordered. Phlebotomy sriram PTT-HD, awaiting results to titrate Heparin drip per Heparin Drip Protocol guidelines. Patient is able to ambulate independently with gonsalez steady gait. Sinus Tachycardia (100-110 bpm) on irrigator gravity flow. Respirations even/unlabored other than when coughing. Patient is anxious but cooperative. Patient verbalized feeling overwhelmed with unexpected elevated troponin findings and need for admission. She also voiced concerns over not understanding the full reason for admission and that a lot wasn't explained to me . This RN explained as much as I could within my scope of practice, and reached out to Dr. Carlos requesting a conversation at the bedside to address any patient questions or concerns. Patient thankful for this RN's help and some clarification.
[2024-11-28 04:56] LABS: Hematocrit 33.9 % (37.0-47.0); Hematocrit 34.5 % (37.0-47.0); Hemoglobin 10.5 g/dl (12.0-16.0); Hemoglobin 10.6 g/dl (12.0-16.0); Mean Corpuscular HGB Conc 30.4 g/dl (31.0-35.0); Mean Corpuscular HGB Conc 31.3 g/dl (31.0-35.0); Mean Corpuscular Hemoglobin 27.7 pg (27.0-33.0); Mean Corpuscular Hemoglobin 28.7 pg (27.0-33.0); Mean Corpuscular Volume 91.9 fL (80.0-98.0); Mean Platelet Volume 12.2 fL (9.4-12.3); Mean Platelet Volume 12.3 fL (9.4-12.3); Platelet Count 238 X10*3/uL (160-400); Platelet Count 257 X10*3/uL (160-400); Red Blood Count 3.69 X10*6/uL (4.20-5.50); Red Blood Count 3.79 X10*6/uL (4.20-5.50); Red Cell Distribution Width 15.8 % (11.0-16.0); White Blood Count 10.2 X10*3/uL (4.8-10.8); White Blood Count 10.6 X10*3/uL (4.8-10.8)
[2024-11-28 05:04] LABS: Prothrombin Time 11.9 SEC (10.9-12.4)
[2024-11-28 05:07] LABS: PTT Heparin Drip 59.8 SEC (53-77.9)
--- NOTE | 2024-11-28 05:18 | PC.NURSE ---
Heparin drip unchanged per protocol for PTT-HD of 59.8. Care ongoing by this RN. Patient is currently having a 'coughing fit'. Contacted respiratory therapist to administer PRN Xopenex.
[2024-11-28 05:28] LABS: Anion Gap 14 (12-20); Blood Urea Nitrogen 24 mg/dL (9-16); Calcium 8.6 mg/dL (8.4-10.2); Carbon Dioxide 20 mmol/L (22-29); Chloride 108 mmol/L (96-108); Creatinine Clr Calc Pharmacy 42.3; Estimated Glomerular Filt Rate 38; Glucose Random 185 mg/dL (60-115); Potassium 3.8 mmol/L (3.3-5.1); Sodium 138 mmol/L (135-145)
[2024-11-28 05:31] LABS: Troponin-I High Sensitivity 836.6 ng/L (<3.5-17.0)
[2024-11-28] MEDS: levalbuterol HCL 1.25 MG/3 ML VIAL.NEB INHALE (05:33)
--- NOTE | 2024-11-28 05:37 | PC.NURSE ---
Dr. Carlos notified regarding increase in Troponin level to 836.6. Heparin drip is infusing at same rate as initiation rate (see EMAR) due to PTT-HD 59.8. Dr. Carlos told this RN to notify pharmacy. Spoke with Bella at remote pharmacy who states to keep Heparin at current infusion rate. No additional orders at this time. Patient is comfortable, no new complaints (other than previously stated cough). Receiving Xopenex from respiratory therapist to alleviate cough/SOB. Plan to contact in-house pharmacy upon arrival to confirm any new orders or changes to Heparin infusion rate. Dr. Carlos aware. Spoke with extension service specialist in charge (Amanda) about this.
[2024-11-28 07:39] LABS: Glucose, Whole Blood 186 mg/dL (60-115)
[2024-11-28] MEDS: Insulin Lispro 100 UNIT/ML 3 ML VIAL SUBCUT ×3 (08:52→20:22)
[2024-11-28 08:56] LABS: Cholesterol 167 mg/dL (<200); HDL Cholesterol 39 mg/dL (>40); LDL Cholesterol Calculated 100 mg/dL (<100); Triglycerides 141 mg/dL (<150)
--- NOTE | 2024-11-28 09:17 | HE.PHANOTE ---
re heparin and pork allergy Pt was started on heparin the evening of 11/27/24 and pt has allergy to pork products. Dr Ivey overrode the allergy as pt being monitored. This pharmacist notified Dr Elizondo the morning of 11/28/24 of the situation as well so that she could continue monitoring and be aware of situation. She says she will continue to monitor the patient for adverse reactions.
--- NOTE | 2024-11-28 09:34 | PHA.MEDREC ---
Addendum entered by Cheli Lopez [facility] 11/28/24 10:23: pt states she cuts her 10 mg Farxiga in half for 5 mg dose due to side effects Original Note: Pharmacy Consult ? Medication Reconciliation Pharmacy has completed the medication reconciliation. Spoke to pt to confirm medications. Had to use claim history to guide her but she was able to recognize the names of the medications she had filled recently. She states she takes 35 units of her long acting insulin (tresiba) when her blood sugars are over 300 and 20 units when they are less than 200. As this left a gap between 200 and 300 for insulin coverage it was entered in home meds to give 20 units when blood sugars are less than 300. patient claims she cannot take any medication that is a capsule because she has a pork allergy. she says any capsules she does take she has looked up to confirm that they are bovine or plant based capsules. states reaction to pork is itching
--- NOTE | 2024-11-28 10:27 | PC.NURSE ---
PTT is not drawn at this time, phlebotomy was contacted and no answer but quality technician is going to draw shortly. charge is aware and asked our staff to do.
--- NOTE | 2024-11-28 10:29 | MHC.CM.PN ---
CM met with Patient at bedside, in the ED. Patient lives in an apartment with her /HCP/Irfan and her adult Son, who will provide transport to home. 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 Home/self care is Patient's goal and CM has initiated and will follow for dc planning. PCP is Dr. Maranda Serna.
[2024-11-28] MEDS: Aspirin 81 MG TAB.CHEW PO (10:48)
[2024-11-28 10:52] LABS: PTT Heparin Drip 59.1 SEC (53-77.9)
[2024-11-28 12:39] LABS: Adenovirus PCR Not Detected (Not Detect.); Bordetella parapertussis PCR Not Detected (Not Detect.); Bordetella pertussis PCR Not Detected (Not Detect.); Chlamydia pneumoniae PCR Not Detected (Not Detect.); Coronavirus 229E PCR Not Detected (Not Detect.); Coronavirus HKU1 PCR Not Detected (Not Detect.); Coronavirus NL63 PCR Not Detected (Not Detect.); Coronavirus OC43 PCR Not Detected (Not Detect.); Human metapneumovirus PCR Not Detected (Not Detect.); Influenza A PCR Not Detected (Not Detect.); Influenza B PCR Not Detected (Not Detect.); Mycoplasma pneumoniae PCR Not Detected (Not Detect.); Parainfluenza 1 PCR Not Detected (Not Detect.); Parainfluenza 2 PCR Not Detected (Not Detect.); Parainfluenza 3 PCR Not Detected (Not Detect.); Parainfluenza 4 PCR Not Detected (Not Detect.); RSV PCR Not Detected (Not Detect.); Rhino/Enterovirus PCR Detected (Not Detect.)
--- NOTE | 2024-11-28 12:46 | P.PNIM_ITS ---
Subjective Subjective Date of Service: 11/28/24 Interval History: Being followed for NSTEMI Denies chest pain, complaining of chest congestion cough, no fevers, no chills, no lightheadedness or dizziness Provide history of itching and hives with use of heparin. Review of Systems All other system reviewed and are negative. Physical Exam 2 Vital Signs: Vital Signs: Last Vital Signs Temp 97.9 F 11/28/24 10:45 Pulse 102 H 11/28/24 10:45 Resp 16 11/28/24 10:45 BP 132/64 11/28/24 10:45 Pulse Ox 98 11/28/24 10:45 O2 Del Method Room Air 11/28/24 10:45 BMI result Body Mass Index 36.8 Const: Other: General resting comfortably in no acute distress. Neck no JVD. CVS regular rate rhythm, Respiratory lungs coarse breath sounds, no respiratory distress, no wheeze, no rhonchi. Gastrointestinal abdomen soft, non tender, bowel sounds audible, no guarding , no rigidity. Extremities no edema. Neuro non focal Skin no rash Psych appropriate affect Objective Data Active Medications Acetaminophen (Acetaminophen 325 Mg Tablet) 650 mg PO Q6H PRN PRN Reason: Pain, Mild 1-3,fever,headache Aspirin (Aspirin 81 Mg Tab.Chew) 81 mg PO DAILY [facility] Last Admin: 11/28/24 10:48 Dose: 81 mg Documented By: GODWIN Atorvastatin Calcium (Atorvastatin Calcium 40 Mg Tablet) 40 mg PO BEDTIME [facility] Last Admin: 11/28/24 00:54 Dose: 40 mg Documented By: TELMA Calcium Carbonate (Calcium Carbonate 750 Mg Tab.Chew) 750 mg PO Q4H PRN PRN Reason: Heartburn Glucose (Glucose Gel 15 Gm Gel..Gram.) 15 gm PO Q15M PRN; Protocol PRN Reason: per Hypoglycemia Standing Ord. Heparin Sodium (Porcine) (Heparin Sodium,Porcine 5,000 Unit/Ml Vial) 3,700 unit 40 unit/kg (3700 unit) IVPUSH PROTOCOL BOLUS PRN; Protocol PRN Reason: 40 unit/kg - Heparin Protocol Heparin Sodium (Porcine) (Heparin Sodium,Porcine 5,000 Unit/Ml Vial) 7,300 unit 80 unit/kg (7300 unit) IVPUSH PROTOCOL BOLUS PRN; Protocol PRN Reason: 80 unit/kg - Heparin Protocol Heparin Sodium/Sodium Chloride (Heparin Sodium,Porcine/1/2ns) 25,000 unit in 250 mls @ 0 mls/hr IVCONT .Q0M [facility]; Protocol Last Titration: 11/28/24 05:13 Dose: 10.95 units/kg/hr, 10 mls/hr Documented By: TELMA Co-signed By: CHANTELL Dextrose ([id number]) 250 mls @ 750 mls/hr IV Q15M PRN; Protocol PRN Reason: per Hypoglycemia Standing Ord. Insulin Human Lispro (Insulin Lispro 100 Unit/Ml 3 Ml Vial) 0 unit SUBCUT QIDACHS [facility]; Protocol Last Admin: 11/28/24 08:52 Dose: 1 unit Documented By: GODWIN Levalbuterol HCl (Levalbuterol Hcl 1.25 Mg/3 Ml Vial.Neb) 1.25 mg INHALE Q4H PRN PRN Reason: Shortness of Breath/Wheezing Last Admin: 11/28/24 05:33 Dose: 1.25 mg Documented By: DOT Magnesium Hydroxide (Milk Of Magnesia 30 Ml Oral.Susp) 30 ml PO DAILY PRN PRN Reason: Constipation Melatonin (Melatonin 3 Mg Tablet) 6 mg PO BEDTIME PRN PRN Reason: Insomnia Nitroglycerin (Nitroglycerin 0.4 Mg Tab.Subl) 0.4 mg SUBLINGUAL Q5MX3 PRN PRN Reason: Chest Pain Ondansetron HCl (Ondansetron Hcl 4 Mg/2 Ml Vial) 4 mg IVPUSH Q8H PRN PRN Reason: Nausea and Vomiting Sodium Chloride (0.9 % Sodium Chloride Flush 3 Ml Syringe) 3 ml IVFLUSH QSHIFT [facility] Last Admin: 11/28/24 10:49 Dose: Not Given Documented By: GODWIN Non-Admin Reason: IV Running Labs 11/28/24 04:06 11/28/24 04:06 Labs: Laboratory Results - last 24 hr 11/27/24 11/27/24 11/27/24 12:43 14:06 14:07 MCV 88.9 MCH 28.9 MCHC 32.5 RDW 15.7 Plt Count 294 MPV 11.3 Immature Gran % (Auto) 0.4 Neut % (Auto) 76.2 H Lymph % (Auto) 15.8 L [place] % (Auto) 6.2 Eos % (Auto) 1.0 Baso % (Auto) 0.4 Lymph # (Auto) 2.2 [place] # (Auto) 0.9 Eos # (Auto) 0.1 Baso # (Auto) 0.1 Abs Immat Gran (auto) 0.06 H Absolute Neuts (auto) 10.7 H Absolute Nucleated RBC 0.000 Nucleated RBC % (auto) 0.0 PT 12.1 INR 1.0 APTT aPTT Heparin Protocol D-Dimer High Sensitivty 204 Anion Gap 10 L Estim Creat Clear Calc 36.8 Estimated GFR 32 POC Glucose Random Glucose 149 H Lactic Acid Calcium 8.6 D Total Bilirubin 0.4 AST 22 ALT 9 Alkaline Phosphatase 108 Troponin I High Sens 702.1 H* C-Reactive Protein 4.57 H B-Natriuretic Peptide 171 H Total Protein 6.7 Albumin 3.5 Triglycerides Cholesterol LDL Cholesterol, Calc HDL Cholesterol Urine Color Urine Appearance Urine pH Ur Specific [place] Urine Protein Urine Glucose (UA) Urine Ketones Urine Blood Urine Nitrite Ur Leukocyte Esterase Urine RBC Urine WBC Ur Squamous Epith Cells Urine Bacteria Hyaline Casts Influenza Type A (PCR) NEGATIVE Influenza Type B (PCR) NEGATIVE RSV RNA Qual (PCR) NEGATIVE SARS-CoV-2 RNA (RT-PCR) NEGATIVE 11/27/24 11/27/24 11/27/24 16:48 17:48 21:32 MCV MCH MCHC RDW Plt Count MPV Immature Gran % (Auto) Neut % (Auto) Lymph % (Auto) [place] % (Auto) Eos % (Auto) Baso % (Auto) Lymph # (Auto) [place] # (Auto) Eos # (Auto) Baso # (Auto) Abs Immat Gran (auto) Absolute Neuts (auto) Absolute Nucleated RBC Nucleated RBC % (auto) PT INR APTT 26.8 aPTT Heparin Protocol D-Dimer High Sensitivty Anion Gap Estim Creat Clear Calc Estimated GFR POC Glucose Random Glucose Lactic Acid 1.2 Calcium Total Bilirubin AST ALT Alkaline Phosphatase Troponin I High Sens 743.6 H* C-Reactive Protein B-Natriuretic Peptide Total Protein Albumin Triglycerides Cholesterol LDL Cholesterol, Calc HDL Cholesterol Urine Color Urine Appearance Urine pH Ur Specific [place] Urine Protein Urine Glucose (UA) Urine Ketones Urine Blood Urine Nitrite Ur Leukocyte Esterase Urine RBC Urine WBC Ur Squamous Epith Cells Urine Bacteria Hyaline Casts Influenza Type A (PCR) Influenza Type B (PCR) RSV RNA Qual (PCR) SARS-CoV-2 RNA (RT-PCR) 11/27/24 11/27/24 11/28/24 22:48 23:00 04:06 MCV 91.0 MCH MCHC RDW Plt Count MPV Immature Gran % (Auto) Neut % (Auto) Lymph % (Auto) [place] % (Auto) Eos % (Auto) Baso % (Auto) Lymph # (Auto) [place] # (Auto) Eos # (Auto) Baso # (Auto) Abs Immat Gran (auto) Absolute Neuts (auto) Absolute Nucleated RBC Nucleated RBC % (auto) PT INR APTT aPTT Heparin Protocol D-Dimer High Sensitivty Anion Gap Estim Creat Clear Calc Estimated GFR POC Glucose 226 H Random Glucose Lactic Acid Calcium Total Bilirubin AST ALT Alkaline Phosphatase Troponin I High Sens C-Reactive Protein B-Natriuretic Peptide Total Protein Albumin Triglycerides Cholesterol LDL Cholesterol, Calc HDL Cholesterol Urine Color Yellow Urine Appearance Clear Urine pH 5.5 Ur Specific [place] 1.020 Urine Protein Negative Urine Glucose (UA) >=1000 H Urine Ketones Negative Urine Blood Negative Urine Nitrite Positive H Ur Leukocyte Esterase Trace H Urine RBC 0-2 Urine WBC 11-20 H Ur Squamous Epith Cells 0-2 Urine Bacteria Trace Hyaline Casts 0-2 Influenza Type A (PCR) Influenza Type B (PCR) RSV RNA Qual (PCR) SARS-CoV-2 RNA (RT-PCR) 11/28/24 11/28/24 11/28/24 04:06 04:06 04:06 MCV 91.9 MCH 27.7 28.7 MCHC 30.4 L 31.3 RDW 15.8 Plt Count MPV Immature Gran % (Auto) Neut % (Auto) Lymph % (Auto) [place] % (Auto) Eos % (Auto) Baso % (Auto) Lymph # (Auto) [place] # (Auto) Eos # (Auto) Baso # (Auto) Abs Immat Gran (auto) Absolute Neuts (auto) Absolute Nucleated RBC Nucleated RBC % (auto) PT INR APTT aPTT Heparin Protocol D-Dimer High Sensitivty Anion Gap Estim Creat Clear Calc Estimated GFR POC Glucose Random Glucose Lactic Acid Calcium Total Bilirubin AST ALT Alkaline Phosphatase Troponin I High Sens C-Reactive Protein B-Natriuretic Peptide Total Protein Albumin Triglycerides Cholesterol LDL Cholesterol, Calc HDL Cholesterol Urine Color Urine Appearance Urine pH Ur Specific [place] Urine Protein Urine Glucose (UA) Urine Ketones Urine Blood Urine Nitrite Ur Leukocyte Esterase Urine RBC Urine WBC Ur Squamous Epith Cells Urine Bacteria Hyaline Casts Influenza Type A (PCR) Influenza Type B (PCR) RSV RNA Qual (PCR) SARS-CoV-2 RNA (RT-PCR) 11/28/24 11/28/24 11/28/24 04:06 04:06 04:06 MCV MCH MCHC RDW 15.8 Plt Count 257 238 MPV 12.2 12.3 Immature Gran % (Auto) Neut % (Auto) Lymph % (Auto) [place] % (Auto) Eos % (Auto) Baso % (Auto) Lymph # (Auto) [place] # (Auto) Eos # (Auto) Baso # (Auto) Abs Immat Gran (auto) Absolute Neuts (auto) Absolute Nucleated RBC 0.000 Nucleated RBC % (auto) PT INR APTT aPTT Heparin Protocol D-Dimer High Sensitivty Anion Gap Estim Creat Clear Calc Estimated GFR POC Glucose Random Glucose Lactic Acid Calcium Total Bilirubin AST ALT Alkaline Phosphatase Troponin I High Sens C-Reactive Protein B-Natriuretic Peptide Total Protein Albumin Triglycerides Cholesterol LDL Cholesterol, Calc HDL Cholesterol Urine Color Urine Appearance Urine pH Ur Specific [place] Urine Protein Urine Glucose (UA) Urine Ketones Urine Blood Urine Nitrite Ur Leukocyte Esterase Urine RBC Urine WBC Ur Squamous Epith Cells Urine Bacteria Hyaline Casts Influenza Type A (PCR) Influenza Type B (PCR) RSV RNA Qual (PCR) SARS-CoV-2 RNA (RT-PCR) 11/28/24 11/28/24 11/28/24 04:06 04:06 04:07 MCV MCH MCHC RDW Plt Count MPV Immature Gran % (Auto) Neut % (Auto) Lymph % (Auto) [place] % (Auto) Eos % (Auto) Baso % (Auto) Lymph # (Auto) [place] # (Auto) Eos # (Auto) Baso # (Auto) Abs Immat Gran (auto) Absolute Neuts (auto) Absolute Nucleated RBC 0.000 Nucleated RBC % (auto) 0.0 0.0 PT 11.9 INR 1.0 APTT aPTT Heparin Protocol 59.8 D-Dimer High Sensitivty Anion Gap 14 Estim Creat Clear Calc 42.3 Estimated GFR 38 POC Glucose Random Glucose 185 H Lactic Acid Calcium 8.6 Total Bilirubin AST ALT Alkaline Phosphatase Troponin I High Sens 836.6 H* C-Reactive Protein B-Natriuretic Peptide Total Protein Albumin Triglycerides 141 Cholesterol 167 LDL Cholesterol, Calc 100 H HDL Cholesterol 39 L Urine Color Urine Appearance Urine pH Ur Specific [place] Urine Protein Urine Glucose (UA) Urine Ketones Urine Blood Urine Nitrite Ur Leukocyte Esterase Urine RBC Urine WBC Ur Squamous Epith Cells Urine Bacteria Hyaline Casts Influenza Type A (PCR) Influenza Type B (PCR) RSV RNA Qual (PCR) SARS-CoV-2 RNA (RT-PCR) 11/28/24 11/28/24 07:33 10:36 MCV MCH MCHC RDW Plt Count MPV Immature Gran % (Auto) Neut % (Auto) Lymph % (Auto) [place] % (Auto) Eos % (Auto) Baso % (Auto) Lymph # (Auto) [place] # (Auto) Eos # (Auto) Baso # (Auto) Abs Immat Gran (auto) Absolute Neuts (auto) Absolute Nucleated RBC Nucleated RBC % (auto) PT INR APTT aPTT Heparin Protocol 59.1 D-Dimer High Sensitivty Anion Gap Estim Creat Clear Calc Estimated GFR POC Glucose 186 H Random Glucose Lactic Acid Calcium Total Bilirubin AST ALT Alkaline Phosphatase Troponin I High Sens C-Reactive Protein B-Natriuretic Peptide Total Protein Albumin Triglycerides Cholesterol LDL Cholesterol, Calc HDL Cholesterol Urine Color Urine Appearance Urine pH Ur Specific [place] Urine Protein Urine Glucose (UA) Urine Ketones Urine Blood Urine Nitrite Ur Leukocyte Esterase Urine RBC Urine WBC Ur Squamous Epith Cells Urine Bacteria Hyaline Casts Influenza Type A (PCR) Influenza Type B (PCR) RSV RNA Qual (PCR) SARS-CoV-2 RNA (RT-PCR) Assessment and Plan (1) NSTEMI (non-ST elevated myocardial infarction): Status: Acute (2) Diabetes: Status: Acute Plan 64-year-old female with a PMH HTN, HLD, insulin-dependent type 2 diabetes, significant for CKD 3,?pancreatic insufficiency, IBS, and GERD who presents to the ED with?URI like symptoms including rhinorrhea, sneezing, sore throat, nonproductive cough, and shortness breath x2 weeks. Pt will be admitted to the hospital for treatment and further evaluation of NSTEMI. NSTEMI No recurrent episode of chest pain since admission Multiple coronary artery disease risk factors including diabetes mellitus, hypertension,and hyperlipidemia troponins elevated at 702.1 > 743.6> 836 Continue IV heparin drip,Aspirin, statin Echocardiogram Seen by Cardiology they recommend to continue above treatment, possible transferred to [facility] for cardiac catheterization Acute Viral sepsis Sore throat, sneezing, rhinorrhea, nonproductive cough x2 weeks CXR and CT of chest negative for pneumonia, pulmonary edema, or pleural effusions; COVID/RSV/flu negative; no GI complaints respiratory panel positive for rhino/entero virus, UA showed trace bacteria with positive nitrates and WBC Supportive care Pulmonary nodule Incidental CT finding,Pt appears to have been aware of this Recommendation outpatient follow-up in 3 months for repeat imaging if no previous imaging done HLD Continue statin Chronic kidney disease stage 3 Insulin-dependent type 2 diabetes Blood sugar around 200 On Tresiba 35 units bedtime as needed, Farxiga 5 mg and Tresiba 20 units subQ daily as needed for blood sugars less than or equal to 300 and insulin sliding scale cont Sliding-scale insulin, add Lantus 20u at bedtime Diabetic diet GERD Continue famotidine Class 2 obesity low-calorie diet Full Code DVT Prophylaxis: On heparin drip Pt will require continued inpatient hospitalization for treatment of?NSTEMI requiring close cardiac monitoring and heparin drip. Quality Stroke Does the patient have a stroke diagnosis?: No VTE Prior VTE?: No VTE Risk Level:: Medical - moderate - high VTE Device Contraindication: Treatment Not Indicated VTE Drug Contraindication: N/A - Med Ordered
[2024-11-28 12:50] LABS: SARS-CoV-2 PCR Not Detected (Not Detect.)
[2024-11-28 13:00] LABS: Glucose, Whole Blood 149 mg/dL (60-115)
--- NOTE | 2024-11-28 13:27 | PM.CNCAR ---
History of Present Illness History of Present Illness Date of Service: 11/28/24 Requesting physician: Ye Elizondo Chief complaint: NSTEMI Narrative: [age] year female with background history of diabetes, chronic kidney disease then pancreatic insufficiency presenting with bronchitis like symptoms ongoing for 3 weeks and central chest heaviness happening on Friday. She said the chest heaviness was a new complaint and she felt as if an elephant is sitting on her chest. These symptoms continued and she decided to come to the hospital. Initial biomarkers including troponin was 702 repeat troponin was 743 and then 836. She is saying chest discomfort resolved in the emergency department. She had CT chest performed which did not show any significant lung pathology. EKG had subtle depressions in 1 aVL. Echocardiography did not show any significant wall motion abnormalities or pericardial effusion. She has been treated with heparin drip. She has been tolerating heparin well although she had some issues with porcine products in the past with some rash on her right side of the face. Labs, imaging and EKGs reviewed. [facility] Past Medical History Medical History Pancreatic insufficiency Pancreatic insufficiency Tubular adenoma CKD (chronic kidney disease) Anemia GERD (gastroesophageal reflux disease) Renal cyst Bladder prolapse, female, acquired Hx of gastric ulcer IBS (irritable bowel syndrome) Kidney stones High cholesterol Diabetes Family History Family History Other No pertinent family history Surgical History Surgical History Hx of endoscopy Hx of colonoscopy History of partial hysterectomy Hx of breast reduction, elective Hx of cholecystectomy Social History Social History Household Members: Spouse Housing: Apartment Unable to assess alcohol history related to: Unknown Alcohol intake: never Patient Tobacco Use Status: Never used Tobacco Second Hand Smoke Exposure: No Use of substances other than those prescribed or required for medical reasons: Unknown Advance Directives: No Advance Directives Information Provided: No Do you have a plan to hurt others: No Plan service: No Meds Allergies Allergy/AdvReac Type Severity Reaction Status Date / Time Pork/Porcine Containing Allergy Mild SORES Verified 11/27/24 12:38 Products /ITCHING [Pork/Porcine Product Derivatives] nickel AdvReac Swelling Verified 11/27/24 12:38 and irritation seasonal Allergy Unknown Itchy Eyes Uncoded 03/22/24 13:36 Active Medications: Current Medications Acetaminophen (Acetaminophen 325 Mg Tablet) 650 mg PO Q6H PRN PRN Reason: Pain, Mild 1-3,fever,headache Aspirin (Aspirin 81 Mg Tab.Chew) 81 mg PO DAILY [facility] Last Admin: 11/28/24 10:48 Dose: 81 mg Atorvastatin Calcium (Atorvastatin Calcium 40 Mg Tablet) 40 mg PO BEDTIME SHANDRA Last Admin: 11/28/24 00:54 Dose: 40 mg Calcium Carbonate (Calcium Carbonate 750 Mg Tab.Chew) 750 mg PO Q4H PRN PRN Reason: Heartburn Famotidine (Famotidine 20 Mg Tablet) 20 mg PO BEDTIME PRN PRN Reason: Heartburn Glucose (Glucose Gel 15 Gm Gel..Gram.) 15 gm PO Q15M PRN; Protocol PRN Reason: per Hypoglycemia Standing Ord. Heparin Sodium (Porcine) (Heparin Sodium,Porcine 5,000 Unit/Ml Vial) 3,700 unit 40 unit/kg (3700 unit) IVPUSH PROTOCOL BOLUS PRN; Protocol PRN Reason: 40 unit/kg - Heparin Protocol Heparin Sodium (Porcine) (Heparin Sodium,Porcine 5,000 Unit/Ml Vial) 7,300 unit 80 unit/kg (7300 unit) IVPUSH PROTOCOL BOLUS PRN; Protocol PRN Reason: 80 unit/kg - Heparin Protocol Heparin Sodium/Sodium Chloride (Heparin Sodium,Porcine/1/2ns) 25,000 unit in 250 mls @ 0 mls/hr IVCONT .Q0M [facility]; Protocol Last Titration: 11/28/24 05:13 Dose: 10.95 units/kg/hr, 10 mls/hr Dextrose (D10) 250 mls @ 750 mls/hr IV Q15M PRN; Protocol PRN Reason: per Hypoglycemia Standing Ord. Insulin Glargine (Insulin Glargine,Hum.Rec.Anlog 100 Unit/Ml 10 Ml Vial) 20 unit SUBCUT BEDTIME [facility] Insulin Human Lispro (Insulin Lispro 100 Unit/Ml 3 Ml Vial) 0 unit SUBCUT QIDACHS [facility]; Protocol Last Admin: 11/28/24 08:52 Dose: 1 unit Levalbuterol HCl (Levalbuterol Hcl 1.25 Mg/3 Ml Vial.Neb) 1.25 mg INHALE Q4H PRN PRN Reason: Shortness of Breath/Wheezing Last Admin: 11/28/24 05:33 Dose: 1.25 mg Magnesium Hydroxide (Milk Of Magnesia 30 Ml Oral.Susp) 30 ml PO DAILY PRN PRN Reason: Constipation Melatonin (Melatonin 3 Mg Tablet) 6 mg PO BEDTIME PRN PRN Reason: Insomnia Nitroglycerin (Nitroglycerin 0.4 Mg Tab.Subl) 0.4 mg SUBLINGUAL Q5MX3 PRN PRN Reason: Chest Pain Omeprazole (Omeprazole 20 Mg Capsule.Dr) 20 mg PO DAILY@0630 SHANDRA Ondansetron HCl (Ondansetron Hcl 4 Mg/2 Ml Vial) 4 mg IVPUSH Q8H PRN PRN Reason: Nausea and Vomiting Prednisolone Acetate (Prednisolone Acetate 1 % Oph Susp 5 Ml Drpbtl) 1 drop EYE-LEFT QID SHANDRA Sodium Chloride (0.9 % Sodium Chloride Flush 3 Ml Syringe) 3 ml IVFLUSH QSHIFT SHANDRA Last Admin: 11/28/24 10:49 Dose: Not Given Home Medications ?Medication ?Instructions ?Recorded ?Confirmed ?Last Taken ?Type insulin degludec 100 unit/mL (3 35 unit subcut BEDTIME PRN BLOOD 07/20/21 11/28/24 Unknown History mL) subcutaneous pen (Tresiba SUGARS >300 FlexTouch U-100 insulin) insulin lispro 100 unit/mL See Protocol subcut TIDAC 07/20/21 11/28/24 Unknown History subcutaneous pen (Humalog KwikPen (U-100) Insulin) fluticasone propionate 50 1 spray intranasal DAILY PRN 12/18/21 11/28/24 Unknown History mcg/actuation nasal Allergy Symptoms spray,suspension ascorbic acid (vitamin C) 1,000 mg 1,000 mg PO DAILY 05/07/23 11/28/24 Unknown History tablet digestive enzymes 1 cap PO BID 05/07/23 11/28/24 Unknown History omega 5-piy-ibi-fish oil 1,000 mg 1 cap PO DAILY 05/07/23 11/28/24 Unknown History (120 mg-180 mg) capsule (Fish Oil) dapagliflozin propanediol 10 mg 5 mg PO DAILY 09/13/24 11/28/24 Unknown History tablet (Farxiga) ammonium lactate 12 % lotion 1 appl topical DAILY 11/28/24 11/28/24 Unknown History cranberry fruit 450 mg tablet 450 mg PO DAILY 11/28/24 11/28/24 Unknown History (cranberry) diphenhydramine 25 1 tab PO BEDTIME PRN Insomnia 11/28/24 11/28/24 Unknown History mg-acetaminophen 500 mg tablet (Tylenol PM Extra Strength) estradiol 0.01% (0.1 mg/gram) 1 appl vaginal BEDTIME 11/28/24 11/28/24 Unknown History vaginal cream (Estrace) famotidine 20 mg tablet 20 mg PO BEDTIME PRN Heartburn 11/28/24 11/28/24 Unknown History insulin degludec 100 unit/mL (3 20 unit subcut DAILY PRN BLOOD 11/28/24 11/28/24 Unknown History mL) subcutaneous pen (Tresiba SUGARS less than or equal to 300 FlexTouch U-100 insulin) omeprazole 20 mg tablet,delayed 20 mg PO DAILY 11/28/24 11/28/24 Unknown History release prednisolone acetate 1 % eye 1 drp ophthalmic-Left QID 11/28/24 11/28/24 Unknown History drops,suspension (Pred Forte) vitamin B complex 1 tab PO DAILY 11/28/24 11/28/24 Unknown History Physical Exam Vital Signs: Vital Signs: Last Vital Signs Temp 97.9 F 11/28/24 10:45 Pulse 102 H 11/28/24 10:45 Resp 16 11/28/24 10:45 BP 132/64 11/28/24 10:45 Pulse Ox 98 11/28/24 10:45 O2 Del Method Room Air 11/28/24 10:45 BMI result Body Mass Index 36.8 GENERAL APPEARANCE: in no acute distress, pleasant. NECK: no carotid bruit, no jugular venous distention. SKIN: no suspicious lesions, warm and dry. HEART: no murmurs, regular rate and rhythm. LUNGS: clear to auscultation bilaterally. ABDOMEN: soft, nontender. EXTREMITIES: no edema. PERIPHERAL PULSES: equal. NEUROLOGIC: No gross deficits, AAO X 3 Objective Labs and Meds 11/28/24 04:06 11/28/24 04:06 Lab results: Laboratory Results - last 24 hr 11/27/24 11/27/24 11/27/24 12:43 14:06 14:07 WBC 14.0 H RBC 4.15 L Hgb 12.0 Hct 36.9 L MCV 88.9 MCH 28.9 MCHC 32.5 RDW 15.7 Plt Count 294 MPV 11.3 Immature Gran % (Auto) 0.4 Neut % (Auto) 76.2 H Lymph % (Auto) 15.8 L [place] % (Auto) 6.2 Eos % (Auto) 1.0 Baso % (Auto) 0.4 Lymph # (Auto) 2.2 [place] # (Auto) 0.9 Eos # (Auto) 0.1 Baso # (Auto) 0.1 Abs Immat Gran (auto) 0.06 H Absolute Neuts (auto) 10.7 H Absolute Nucleated RBC 0.000 Nucleated RBC % (auto) 0.0 PT 12.1 INR 1.0 APTT aPTT Heparin Protocol D-Dimer High Sensitivty 204 Sodium 140 Potassium 4.0 Chloride 108 Carbon Dioxide 26 Anion Gap 10 L BUN 32 H Creatinine 1.60 H Estim Creat Clear Calc 36.8 Estimated GFR 32 POC Glucose Random Glucose 149 H Lactic Acid Calcium 8.6 D Total Bilirubin 0.4 AST 22 ALT 9 Alkaline Phosphatase 108 Troponin I High Sens 702.1 H* C-Reactive Protein 4.57 H B-Natriuretic Peptide 171 H Total Protein 6.7 Albumin 3.5 Triglycerides Cholesterol LDL Cholesterol, Calc HDL Cholesterol Urine Color Urine Appearance Urine pH Ur Specific [place] Urine Protein Urine Glucose (UA) Urine Ketones Urine Blood Urine Nitrite Ur Leukocyte Esterase Urine RBC Urine WBC Ur Squamous Epith Cells Urine Bacteria Hyaline Casts Respiratory Panel [place] Adenovirus (Rapid PCR) B.pert (TEM-PCR) B.parapertussis DNA PCR C. pneumoniae DNA (PCR) Coronavirus OC43 (PCR) Coronavirus HKU1 (PCR) Coronavirus 229E (PCR) Coronavirus NL63 (PCR) Human Metapneumovir PCR Influenza A (RT-PCR) Influenza Type A (PCR) NEGATIVE Influenza B (RT-PCR) Influenza Type B (PCR) NEGATIVE M. pneumoniae (PCR) Parainfluenza 1 (PCR) Parainfluenza 2 (PCR) Parainfluenza 3 (PCR) Parainfluenza 4 (PCR) RSV (PCR) RSV RNA Qual (PCR) NEGATIVE Entero/Rhino (PCR) SARS-CoV-2 RNA (RT-PCR) NEGATIVE 11/27/24 11/27/24 11/27/24 16:48 17:48 20:39 WBC RBC Hgb Hct MCV MCH MCHC RDW Plt Count MPV Immature Gran % (Auto) Neut % (Auto) Lymph % (Auto) [place] % (Auto) Eos % (Auto) Baso % (Auto) Lymph # (Auto) [place] # (Auto) Eos # (Auto) Baso # (Auto) Abs Immat Gran (auto) Absolute Neuts (auto) Absolute Nucleated RBC Nucleated RBC % (auto) PT INR APTT aPTT Heparin Protocol D-Dimer High Sensitivty Sodium Potassium Chloride Carbon Dioxide Anion Gap BUN Creatinine Estim Creat Clear Calc Estimated GFR POC Glucose Random Glucose Lactic Acid 1.2 Calcium Total Bilirubin AST ALT Alkaline Phosphatase Troponin I High Sens 743.6 H* C-Reactive Protein B-Natriuretic Peptide Total Protein Albumin Triglycerides Cholesterol LDL Cholesterol, Calc HDL Cholesterol Urine Color Urine Appearance Urine pH Ur Specific [place] Urine Protein Urine Glucose (UA) Urine Ketones Urine Blood Urine Nitrite Ur Leukocyte Esterase Urine RBC Urine WBC Ur Squamous Epith Cells Urine Bacteria Hyaline Casts Respiratory Panel [place] See Note Adenovirus (Rapid PCR) Not Detected B.pert (TEM-PCR) Not Detected B.parapertussis DNA PCR Not Detected C. pneumoniae DNA (PCR) Not Detected Coronavirus OC43 (PCR) Not Detected Coronavirus HKU1 (PCR) Not Detected Coronavirus 229E (PCR) Not Detected Coronavirus NL63 (PCR) Not Detected Human Metapneumovir PCR Not Detected Influenza A (RT-PCR) Not Detected Influenza Type A (PCR) Influenza B (RT-PCR) Not Detected Influenza Type B (PCR) M. pneumoniae (PCR) Not Detected Parainfluenza 1 (PCR) Not Detected Parainfluenza 2 (PCR) Not Detected Parainfluenza 3 (PCR) Not Detected Parainfluenza 4 (PCR) Not Detected RSV (PCR) Not Detected RSV RNA Qual (PCR) Entero/Rhino (PCR) Detected A SARS-CoV-2 RNA (RT-PCR) Not Detected 11/27/24 11/27/24 11/27/24 21:32 22:48 23:00 WBC RBC Hgb Hct MCV MCH MCHC RDW Plt Count MPV Immature Gran % (Auto) Neut % (Auto) Lymph % (Auto) [place] % (Auto) Eos % (Auto) Baso % (Auto) Lymph # (Auto) [place] # (Auto) Eos # (Auto) Baso # (Auto) Abs Immat Gran (auto) Absolute Neuts (auto) Absolute Nucleated RBC Nucleated RBC % (auto) PT INR APTT 26.8 aPTT Heparin Protocol D-Dimer High Sensitivty Sodium Potassium Chloride Carbon Dioxide Anion Gap BUN Creatinine Estim Creat Clear Calc Estimated GFR POC Glucose 226 H Random Glucose Lactic Acid Calcium Total Bilirubin AST ALT Alkaline Phosphatase Troponin I High Sens C-Reactive Protein B-Natriuretic Peptide Total Protein Albumin Triglycerides Cholesterol LDL Cholesterol, Calc HDL Cholesterol Urine Color Yellow Urine Appearance Clear Urine pH 5.5 Ur Specific [place] 1.020 Urine Protein Negative Urine Glucose (UA) >=1000 H Urine Ketones Negative Urine Blood Negative Urine Nitrite Positive H Ur Leukocyte Esterase Trace H Urine RBC 0-2 Urine WBC 11-20 H Ur Squamous Epith Cells 0-2 Urine Bacteria Trace Hyaline Casts 0-2 Respiratory Panel [place] Adenovirus (Rapid PCR) B.pert (TEM-PCR) B.parapertussis DNA PCR C. pneumoniae DNA (PCR) Coronavirus OC43 (PCR) Coronavirus HKU1 (PCR) Coronavirus 229E (PCR) Coronavirus NL63 (PCR) Human Metapneumovir PCR Influenza A (RT-PCR) Influenza Type A (PCR) Influenza B (RT-PCR) Influenza Type B (PCR) M. pneumoniae (PCR) Parainfluenza 1 (PCR) Parainfluenza 2 (PCR) Parainfluenza 3 (PCR) Parainfluenza 4 (PCR) RSV (PCR) RSV RNA Qual (PCR) Entero/Rhino (PCR) SARS-CoV-2 RNA (RT-PCR) 11/28/24 11/28/24 11/28/24 04:06 04:06 04:06 WBC 10.6 10.2 RBC 3.79 L 3.69 L Hgb 10.5 L Hct MCV MCH MCHC RDW Plt Count MPV Immature Gran % (Auto) Neut % (Auto) Lymph % (Auto) [place] % (Auto) Eos % (Auto) Baso % (Auto) Lymph # (Auto) [place] # (Auto) Eos # (Auto) Baso # (Auto) Abs Immat Gran (auto) Absolute Neuts (auto) Absolute Nucleated RBC Nucleated RBC % (auto) PT INR APTT aPTT Heparin Protocol D-Dimer High Sensitivty Sodium Potassium Chloride Carbon Dioxide Anion Gap BUN Creatinine Estim Creat Clear Calc Estimated GFR POC Glucose Random Glucose Lactic Acid Calcium Total Bilirubin AST ALT Alkaline Phosphatase Troponin I High Sens C-Reactive Protein B-Natriuretic Peptide Total Protein Albumin Triglycerides Cholesterol LDL Cholesterol, Calc HDL Cholesterol Urine Color Urine Appearance Urine pH Ur Specific [place] Urine Protein Urine Glucose (UA) Urine Ketones Urine Blood Urine Nitrite Ur Leukocyte Esterase Urine RBC Urine WBC Ur Squamous Epith Cells Urine Bacteria Hyaline Casts Respiratory Panel [place] Adenovirus (Rapid PCR) B.pert (TEM-PCR) B.parapertussis DNA PCR C. pneumoniae DNA (PCR) Coronavirus OC43 (PCR) Coronavirus HKU1 (PCR) Coronavirus 229E (PCR) Coronavirus NL63 (PCR) Human Metapneumovir PCR Influenza A (RT-PCR) Influenza Type A (PCR) Influenza B (RT-PCR) Influenza Type B (PCR) M. pneumoniae (PCR) Parainfluenza 1 (PCR) Parainfluenza 2 (PCR) Parainfluenza 3 (PCR) Parainfluenza 4 (PCR) RSV (PCR) RSV RNA Qual (PCR) Entero/Rhino (PCR) SARS-CoV-2 RNA (RT-PCR) 11/28/24 11/28/24 11/28/24 04:06 04:06 04:06 WBC RBC Hgb 10.6 L Hct 34.5 L 33.9 L MCV 91.0 91.9 MCH 27.7 MCHC RDW Plt Count MPV Immature Gran % (Auto) Neut % (Auto) Lymph % (Auto) [place] % (Auto) Eos % (Auto) Baso % (Auto) Lymph # (Auto) [place] # (Auto) Eos # (Auto) Baso # (Auto) Abs Immat Gran (auto) Absolute Neuts (auto) Absolute Nucleated RBC Nucleated RBC % (auto) PT INR APTT aPTT Heparin Protocol D-Dimer High Sensitivty Sodium Potassium Chloride Carbon Dioxide Anion Gap BUN Creatinine Estim Creat Clear Calc Estimated GFR POC Glucose Random Glucose Lactic Acid Calcium Total Bilirubin AST ALT Alkaline Phosphatase Troponin I High Sens C-Reactive Protein B-Natriuretic Peptide Total Protein Albumin Triglycerides Cholesterol LDL Cholesterol, Calc HDL Cholesterol Urine Color Urine Appearance Urine pH Ur Specific [place] Urine Protein Urine Glucose (UA) Urine Ketones Urine Blood Urine Nitrite Ur Leukocyte Esterase Urine RBC Urine WBC Ur Squamous Epith Cells Urine Bacteria Hyaline Casts Respiratory Panel [place] Adenovirus (Rapid PCR) B.pert (TEM-PCR) B.parapertussis DNA PCR C. pneumoniae DNA (PCR) Coronavirus OC43 (PCR) Coronavirus HKU1 (PCR) Coronavirus 229E (PCR) Coronavirus NL63 (PCR) Human Metapneumovir PCR Influenza A (RT-PCR) Influenza Type A (PCR) Influenza B (RT-PCR) Influenza Type B (PCR) M. pneumoniae (PCR) Parainfluenza 1 (PCR) Parainfluenza 2 (PCR) Parainfluenza 3 (PCR) Parainfluenza 4 (PCR) RSV (PCR) RSV RNA Qual (PCR) Entero/Rhino (PCR) SARS-CoV-2 RNA (RT-PCR) 11/28/24 11/28/24 11/28/24 04:06 04:06 04:06 WBC RBC Hgb Hct MCV MCH 28.7 MCHC 30.4 L 31.3 RDW 15.8 15.8 Plt Count 257 MPV Immature Gran % (Auto) Neut % (Auto) Lymph % (Auto) [place] % (Auto) Eos % (Auto) Baso % (Auto) Lymph # (Auto) [place] # (Auto) Eos # (Auto) Baso # (Auto) Abs Immat Gran (auto) Absolute Neuts (auto) Absolute Nucleated RBC Nucleated RBC % (auto) PT INR APTT aPTT Heparin Protocol D-Dimer High Sensitivty Sodium Potassium Chloride Carbon Dioxide Anion Gap BUN Creatinine Estim Creat Clear Calc Estimated GFR POC Glucose Random Glucose Lactic Acid Calcium Total Bilirubin AST ALT Alkaline Phosphatase Troponin I High Sens C-Reactive Protein B-Natriuretic Peptide Total Protein Albumin Triglycerides Cholesterol LDL Cholesterol, Calc HDL Cholesterol Urine Color Urine Appearance Urine pH Ur Specific [place] Urine Protein Urine Glucose (UA) Urine Ketones Urine Blood Urine Nitrite Ur Leukocyte Esterase Urine RBC Urine WBC Ur Squamous Epith Cells Urine Bacteria Hyaline Casts Respiratory Panel [place] Adenovirus (Rapid PCR) B.pert (TEM-PCR) B.parapertussis DNA PCR C. pneumoniae DNA (PCR) Coronavirus OC43 (PCR) Coronavirus HKU1 (PCR) Coronavirus 229E (PCR) Coronavirus NL63 (PCR) Human Metapneumovir PCR Influenza A (RT-PCR) Influenza Type A (PCR) Influenza B (RT-PCR) Influenza Type B (PCR) M. pneumoniae (PCR) Parainfluenza 1 (PCR) Parainfluenza 2 (PCR) Parainfluenza 3 (PCR) Parainfluenza 4 (PCR) RSV (PCR) RSV RNA Qual (PCR) Entero/Rhino (PCR) SARS-CoV-2 RNA (RT-PCR) 11/28/24 11/28/24 11/28/24 04:06 04:06 04:06 WBC RBC Hgb Hct MCV MCH MCHC RDW Plt Count 238 MPV 12.2 12.3 Immature Gran % (Auto) Neut % (Auto) Lymph % (Auto) [place] % (Auto) Eos % (Auto) Baso % (Auto) Lymph # (Auto) [place] # (Auto) Eos # (Auto) Baso # (Auto) Abs Immat Gran (auto) Absolute Neuts (auto) Absolute Nucleated RBC 0.000 0.000 Nucleated RBC % (auto) 0.0 PT INR APTT aPTT Heparin Protocol D-Dimer High Sensitivty Sodium Potassium Chloride Carbon Dioxide Anion Gap BUN Creatinine Estim Creat Clear Calc Estimated GFR POC Glucose Random Glucose Lactic Acid Calcium Total Bilirubin AST ALT Alkaline Phosphatase Troponin I High Sens C-Reactive Protein B-Natriuretic Peptide Total Protein Albumin Triglycerides Cholesterol LDL Cholesterol, Calc HDL Cholesterol Urine Color Urine Appearance Urine pH Ur Specific [place] Urine Protein Urine Glucose (UA) Urine Ketones Urine Blood Urine Nitrite Ur Leukocyte Esterase Urine RBC Urine WBC Ur Squamous Epith Cells Urine Bacteria Hyaline Casts Respiratory Panel [place] Adenovirus (Rapid PCR) B.pert (TEM-PCR) B.parapertussis DNA PCR C. pneumoniae DNA (PCR) Coronavirus OC43 (PCR) Coronavirus HKU1 (PCR) Coronavirus 229E (PCR) Coronavirus NL63 (PCR) Human Metapneumovir PCR Influenza A (RT-PCR) Influenza Type A (PCR) Influenza B (RT-PCR) Influenza Type B (PCR) M. pneumoniae (PCR) Parainfluenza 1 (PCR) Parainfluenza 2 (PCR) Parainfluenza 3 (PCR) Parainfluenza 4 (PCR) RSV (PCR) RSV RNA Qual (PCR) Entero/Rhino (PCR) SARS-CoV-2 RNA (RT-PCR) 11/28/24 11/28/24 11/28/24 04:06 04:07 07:33 WBC RBC Hgb Hct MCV MCH MCHC RDW Plt Count MPV Immature Gran % (Auto) Neut % (Auto) Lymph % (Auto) [place] % (Auto) Eos % (Auto) Baso % (Auto) Lymph # (Auto) [place] # (Auto) Eos # (Auto) Baso # (Auto) Abs Immat Gran (auto) Absolute Neuts (auto) Absolute Nucleated RBC Nucleated RBC % (auto) 0.0 PT 11.9 INR 1.0 APTT aPTT Heparin Protocol 59.8 D-Dimer High Sensitivty Sodium 138 Potassium 3.8 Chloride 108 Carbon Dioxide 20 L Anion Gap 14 BUN 24 H Creatinine 1.41 H Estim Creat Clear Calc 42.3 Estimated GFR 38 POC Glucose 186 H Random Glucose 185 H Lactic Acid Calcium 8.6 Total Bilirubin AST ALT Alkaline Phosphatase Troponin I High Sens 836.6 H* C-Reactive Protein B-Natriuretic Peptide Total Protein Albumin Triglycerides 141 Cholesterol 167 LDL Cholesterol, Calc 100 H HDL Cholesterol 39 L Urine Color Urine Appearance Urine pH Ur Specific [place] Urine Protein Urine Glucose (UA) Urine Ketones Urine Blood Urine Nitrite Ur Leukocyte Esterase Urine RBC Urine WBC Ur Squamous Epith Cells Urine Bacteria Hyaline Casts Respiratory Panel [place] Adenovirus (Rapid PCR) B.pert (TEM-PCR) B.parapertussis DNA PCR C. pneumoniae DNA (PCR) Coronavirus OC43 (PCR) Coronavirus HKU1 (PCR) Coronavirus 229E (PCR) Coronavirus NL63 (PCR) Human Metapneumovir PCR Influenza A (RT-PCR) Influenza Type A (PCR) Influenza B (RT-PCR) Influenza Type B (PCR) M. pneumoniae (PCR) Parainfluenza 1 (PCR) Parainfluenza 2 (PCR) Parainfluenza 3 (PCR) Parainfluenza 4 (PCR) RSV (PCR) RSV RNA Qual (PCR) Entero/Rhino (PCR) SARS-CoV-2 RNA (RT-PCR) 11/28/24 11/28/24 10:36 12:55 WBC RBC Hgb Hct MCV MCH MCHC RDW Plt Count MPV Immature Gran % (Auto) Neut % (Auto) Lymph % (Auto) [place] % (Auto) Eos % (Auto) Baso % (Auto) Lymph # (Auto) [place] # (Auto) Eos # (Auto) Baso # (Auto) Abs Immat Gran (auto) Absolute Neuts (auto) Absolute Nucleated RBC Nucleated RBC % (auto) PT INR APTT aPTT Heparin Protocol 59.1 D-Dimer High Sensitivty Sodium Potassium Chloride Carbon Dioxide Anion Gap BUN Creatinine Estim Creat Clear Calc Estimated GFR POC Glucose 149 H Random Glucose Lactic Acid Calcium Total Bilirubin AST ALT Alkaline Phosphatase Troponin I High Sens C-Reactive Protein B-Natriuretic Peptide Total Protein Albumin Triglycerides Cholesterol LDL Cholesterol, Calc HDL Cholesterol Urine Color Urine Appearance Urine pH Ur Specific [place] Urine Protein Urine Glucose (UA) Urine Ketones Urine Blood Urine Nitrite Ur Leukocyte Esterase Urine RBC Urine WBC Ur Squamous Epith Cells Urine Bacteria Hyaline Casts Respiratory Panel [place] Adenovirus (Rapid PCR) B.pert (TEM-PCR) B.parapertussis DNA PCR C. pneumoniae DNA (PCR) Coronavirus OC43 (PCR) Coronavirus HKU1 (PCR) Coronavirus 229E (PCR) Coronavirus NL63 (PCR) Human Metapneumovir PCR Influenza A (RT-PCR) Influenza Type A (PCR) Influenza B (RT-PCR) Influenza Type B (PCR) M. pneumoniae (PCR) Parainfluenza 1 (PCR) Parainfluenza 2 (PCR) Parainfluenza 3 (PCR) Parainfluenza 4 (PCR) RSV (PCR) RSV RNA Qual (PCR) Entero/Rhino (PCR) SARS-CoV-2 RNA (RT-PCR) Assessment and Plan (1) NSTEMI (non-ST elevated myocardial infarction): Status: Acute Plan Pleasant 64-year-old lady with background history of diabetes, chronic kidney disease and bronchitis episode ongoing for 3 weeks now presenting with chest heaviness. She has ruled in for NSTEMI. Echocardiography has not shown any significant wall motion abnormality or evidence of pericardial effusion. She has been started on heparin drip. She is pain-free. Continue baby aspirin. Add carvedilol 3.125 mg twice a day. She will need diagnostic angiography and I have discussed that with her in detail. She wishes to stay here till tomorrow and be transferred tomorrow for potential cardiac catheterization on Friday. Family members have seen Dr. Scott before and she wants to get his opinion too. Dr. Scott will be picking up service tomorrow and can also comment. Thank you for allowing me to participate in the care of your patient. Please feel free to contact me if you have any questions. Procedures Date of Service Date of Service: 11/28/24
[2024-11-28] MEDS: carvediloL 3.125 MG TABLET PO ×2 (14:56→20:20)
[2024-11-28 16:08] LABS: Glucose, Whole Blood 205 mg/dL (60-115)
[2024-11-28] MEDS: prednisoLONE Acetate 1 % Oph Susp 5 ML DRPBTL 1 DROP EYE-LEFT ×2 (17:38→21:59)
[2024-11-28 20:10] LABS: Glucose, Whole Blood 195 mg/dL (60-115)
[2024-11-28] MEDS: Heparin Sodium,Porcine/1/2NS 25,000 UNIT/250 ML IV.SOLN 10 UNIT IVCONT (22:31)
[2024-11-29] VITALS (8 sets, daily range): BP systolic 106–137; BP diastolic 55–67; PULSE 88–100; RESP 16–20; TEMP 36.1–37.3; O2SAT 92–97
--- NOTE | 2024-11-29 00:35 | PC.NURSE ---
2017: Patient refused lantus, only taking sliding scale - MD anguloi aware
[2024-11-29] MEDS: Benzonatate 100 MG CAPSULE 200 MG PO ×3 (04:53→20:57)
[2024-11-29] MEDS: Omeprazole 20 MG CAPSULE.DR PO (06:06)
[2024-11-29 07:14] LABS: PTT Heparin Drip 43.6 SEC (53-77.9)
[2024-11-29 07:22] LABS: Glucose, Whole Blood 178 mg/dL (60-115)
[2024-11-29] MEDS: Aspirin 81 MG TAB.CHEW PO (07:34)
[2024-11-29] MEDS: carvediloL 3.125 MG TABLET PO (07:34)
[2024-11-29] MEDS: Insulin Lispro 100 UNIT/ML 3 ML VIAL SUBCUT ×3 (07:35→20:58)
[2024-11-29] MEDS: prednisoLONE Acetate 1 % Oph Susp 5 ML DRPBTL 1 DROP EYE-LEFT ×4 (07:35→21:03)
[2024-11-29] MEDS: Heparin Sodium,Porcine 5,000 UNIT/ML VIAL 3700 UNIT IVPUSH (07:38)
--- NOTE | 2024-11-29 10:05 | PM.PNCARD ---
Subjective Subjective Date of Service: 11/29/24 Principal diagnosis: STEMI, bronchitis Interval history: Patient was not having the severe chest pressure heaviness related to her NSTEMI. Still feels a little tight in her chest and short of breath. Still wheezy. Very concerned about a lot of different things. Heart rate is slightly better controlled Review of Systems Constitutional: Reports no additional constitutional complaints Cardiovascular: Denies chest pain at rest, Reports rapid heart rate, Denies leg edema, Denies lightheadedness, Denies Loss of Consciousness and Reports dyspnea on exertion Respiratory: Reports dyspnea on exertion and Reports wheezing Skin/Breast: Reports system reviewed and no additional complaints, except as docu Allergic/Immunologic: Reports wheezing Physical Exam Vital Signs: Last Vital Signs Temp 97.4 F 11/29/24 07:12 Pulse 100 11/29/24 07:12 Resp 16 11/29/24 07:12 BP 121/57 L 11/29/24 07:12 Pulse Ox 93 11/29/24 07:12 O2 Del Method Room Air 11/29/24 07:12 BMI result Body Mass Index 36.8 Const General: cooperative, alert, awake and anxious Nutritional Appearance: obese Orientation/consciousness: patient oriented x3 Neck Neck: Yes trachea midline, Yes supple and Yes no JVD Resp Auscultation: wheezes and diminished lung sounds Cardio Jugular venous distension: no JVD Rate: regular rate Rhythm: regular rhythm Heart sounds: S1 normal heart sound present, S2 normal heart sound present, no click, no gallops and no murmurs GI Auscultation: normal bowel sounds Neuro General: patient oriented x3 and no focal motor deficits Extrem General: Yes no clubbing, cyanosis or edema Objective Labs and Meds 11/28/24 04:06 11/28/24 04:06 Lab results: Laboratory Results - last 24 hr 11/27/24 11/28/24 11/28/24 20:39 10:36 12:55 Hold Purple Top aPTT Heparin Protocol 59.1 POC Glucose 149 H Respiratory Panel Gonzalez See Note Adenovirus (Rapid PCR) Not Detected B.pert (TEM-PCR) Not Detected B.parapertussis DNA PCR Not Detected C. pneumoniae DNA (PCR) Not Detected Coronavirus OC43 (PCR) Not Detected Coronavirus HKU1 (PCR) Not Detected Coronavirus 229E (PCR) Not Detected Coronavirus NL63 (PCR) Not Detected Human Metapneumovir PCR Not Detected Influenza A (RT-PCR) Not Detected Influenza B (RT-PCR) Not Detected M. pneumoniae (PCR) Not Detected Parainfluenza 1 (PCR) Not Detected Parainfluenza 2 (PCR) Not Detected Parainfluenza 3 (PCR) Not Detected Parainfluenza 4 (PCR) Not Detected RSV (PCR) Not Detected Entero/Rhino (PCR) Detected A SARS-CoV-2 RNA (RT-PCR) Not Detected 11/28/24 11/28/24 11/29/24 15:49 20:06 05:58 Hold Purple Top SEE NOTE aPTT Heparin Protocol 43.6 L D POC Glucose 205 H 195 H Respiratory Panel Gonzalez Adenovirus (Rapid PCR) B.pert (TEM-PCR) B.parapertussis DNA PCR C. pneumoniae DNA (PCR) Coronavirus OC43 (PCR) Coronavirus HKU1 (PCR) Coronavirus 229E (PCR) Coronavirus NL63 (PCR) Human Metapneumovir PCR Influenza A (RT-PCR) Influenza B (RT-PCR) M. pneumoniae (PCR) Parainfluenza 1 (PCR) Parainfluenza 2 (PCR) Parainfluenza 3 (PCR) Parainfluenza 4 (PCR) RSV (PCR) Entero/Rhino (PCR) SARS-CoV-2 RNA (RT-PCR) 11/29/24 07:16 Hold Purple Top aPTT Heparin Protocol POC Glucose 178 H Respiratory Panel Gonzalez Adenovirus (Rapid PCR) B.pert (TEM-PCR) B.parapertussis DNA PCR C. pneumoniae DNA (PCR) Coronavirus OC43 (PCR) Coronavirus HKU1 (PCR) Coronavirus 229E (PCR) Coronavirus NL63 (PCR) Human Metapneumovir PCR Influenza A (RT-PCR) Influenza B (RT-PCR) M. pneumoniae (PCR) Parainfluenza 1 (PCR) Parainfluenza 2 (PCR) Parainfluenza 3 (PCR) Parainfluenza 4 (PCR) RSV (PCR) Entero/Rhino (PCR) SARS-CoV-2 RNA (RT-PCR) Progress Note: A&P Assessment and plan (1) NSTEMI (non-ST elevated myocardial infarction): Status: Acute Assessment and Plan: NSTEMI in setting of bronchitis. Echocardiogram shows preserved LV ejection fraction without any pericardial effusion. Pericarditis/myocarditis is also a possibility. Although she was significant risk factor for coronary disease including diabetes and hypertension hyperlipidemia and obesity. She requires cardiac catheterization. I discussed with her the need for cardiac catheterization including risk, benefits, alternatives. She understands agrees. Call is placed to [facility] for acceptance. Continue IV heparin. Continue aspirin. Continue high-intensity statin therapy. Continue carvedilol therapy. Continue treat her bronchospastic airway disease with pulmonary specific bronchodilators such as Xopenex as needed. Further treatment based on the findings. If her cardiac catheterization is normal may need a cardiac MRI to evaluate for myocarditis. Will follow her as outpatient after cardiac catheterization Time Spent With Patient Time: Total time managing care of this patient today ____ minutes. Progress Note: Quality Stroke Does the patient have a stroke diagnosis?: No Procedures Date of Service Date of Service: 11/29/24
[2024-11-29] MEDS: levalbuterol HCL 1.25 MG/3 ML VIAL.NEB INHALE (11:11)
[2024-11-29 12:00] LABS: Glucose, Whole Blood 266 mg/dL (60-115)
--- NOTE | 2024-11-29 14:42 | PM.DS ---
DS: Providers Provider Date of Service: 11/29/24 Date of admission: 11/27/24 20:32 Date of discharge: 11/29/24 Primary care physician: Maranda Serna MD Consults: 11/27/24 20:32 Consult to Cardiology Routine Consulting Provider: [facility] Reason for consultation: elevated troponin Has provider been notified: Yes DS: Diagnosis Discharge Diagnosis (1) NSTEMI (non-ST elevated myocardial infarction): Status: Acute DS: Summary Hospital Course Hospital Course: History of presenting illness: Date of Service: 11/27/24 Attending physician on admission: Ludin Carlos Chief Complaint: Cough, fever, rhinorrhea Pt is a 64-year-old female with a PMH HTN, HLD, insulin-dependent type 2 diabetes, significant for CKD 3,?pancreatic insufficiency, IBS, and GERD who presents to the ED with?URI like symptoms including rhinorrhea, sneezing, sore throat, nonproductive cough, and shortness breath x2 weeks. Lost her voice at one point. Pt initially thought she had bronchitis which she reports getting every 3-4 years, also believe she was getting better a few days ago however symptoms returned and worsened the past 1-2 days. Reports has had chest tightness/pressure associated with breathing and cough up until this morning when chest pressure changed and became constant and radiating to back. Has felt fatigued with generalized weakness. No fever or chills. Denies nausea, vomiting, abdominal pain. Denies polyuria or dysuria. In the ED pt with low-grade fever of 99.3, tachycardia 120, and soft BP as low as 105/54. Labs were significant for leukocytosis 14.0, initial troponin 702.1 with repeat flat at 743.6, BNP 171, and CRP elevated at 4.57. No significant electrolyte abnormalities. Creatinine 1.60, though renal function around baseline. Lactic acid WNL at 1.2. Tested negative for flu, RSV, COVID. CXR showed no acute findings. CTA of chest found 7.6 mm pulmonary nodule in left lower lobe, as well as large calcification of bilateral breast and indeterminate 1.2 cm thyroid nodule. EKG demonstrated sinus tachycardia of 134 without with Q-waves in inferior leads. Repeat EKG with sinus tachycardia of 113 wiht inferior Q-waves and subtle depressions in aVL consistent ischemia. ED contacted Cardiology where bedside echo was done that showed no wall motion abnormality or pericardial effusion or clear evidence of myocarditis. If no obvious infectious source was found, Cardiology recommended starting heparin drip. Pt was treated with DuoNebs, IVF, guaifenesin, and ceftriaxone. Pt will be admitted to the hospital for treatment and further evaluation of NSTEMI in the setting of SIRS criteria with unclear infectious source.. Hospital course: 64-year-old female with a PMH HTN, HLD, insulin-dependent type 2 diabetes, significant for CKD 3,?pancreatic insufficiency, IBS, and GERD who presents to the ED with?URI like symptoms including rhinorrhea, sneezing, sore throat, nonproductive cough, and shortness breath x2 weeks. Pt will be admitted to the hospital for treatment and further evaluation of NSTEMI. NSTEMI in the setting of bronchitis, multiple risk factors for coronary artery disease including hypertension, hyperlipidemia diabetes mellitus, treated with IV heparin, aspirin, statin and Coreg patient has no recurrent episodes of chest pain, echocardiogram showed preserved EF, no wall motion abnormality patient evaluated by radio news anchor and is being transferred to [facility] for cardiac catheterization,troponins elevated at 702.1 > 743.6> 836, LDL 100 recommend low-calorie low-fat diet. Acute Viral sepsis , CXR and CT of chest negative for pneumonia, pulmonary edema, or pleural effusions; COVID/RSV/flu negative; no GI complaints,respiratory panel positive for rhino/entero virus, continue supportive care with cough medication as needed Xopenex inhaler Pulmonary nodule Incidental CT finding,Pt appears to have been aware of this, recommend outpatient follow-up in 3 months for repeat imaging if no previous imaging done HLD Continue statin Chronic kidney disease stage 3 Insulin-dependent type 2 diabetes Blood sugar around 200, On Tresiba 35 units bedtime as needed, Farxiga 5 mg and Tresiba 20 units subQ daily as needed for blood sugars less than or equal to 300 and insulin sliding scale cont Sliding-scale insulin, added Lantus 20u at bedtime and Diabetic diet. Recommend to resume home medications upon discharge . GERD Continue famotidine Class 2 obesity low-calorie diet Time Attestation Discharge Coordination Time (in mins): 40 Quality: Safe Use of Opioids Does Pt have an Active Cancer Diagnosis on the Problem List?: No Quality: Stroke Does the patient have a stroke diagnosis?: No Physical Exam Vital Signs: Vital Signs: Last Vital Signs Temp 98.3 F 11/29/24 11:52 Pulse 89 11/29/24 11:52 Resp 16 11/29/24 11:52 BP 137/58 L 11/29/24 11:52 Pulse Ox 92 11/29/24 11:52 O2 Del Method Room Air 11/29/24 11:52 BMI result Body Mass Index 36.8 Const: Other: General resting comfortably in no acute distress. Neck no JVD. CVS regular rate rhythm, Respiratory lungs coarse breath sounds, no respiratory distress, no wheeze, no rhonchi. Gastrointestinal abdomen soft, non tender, bowel sounds audible, no guarding , no rigidity. Extremities no edema. Neuro non focal Skin no rash Psych appropriate affect DS: Data Data Completed and Pending Labs on day of discharge: Laboratory Results - last 24 hr 11/28/24 11/28/24 11/29/24 15:49 20:06 05:58 Hold Purple Top SEE NOTE aPTT Heparin Protocol 43.6 L D POC Glucose 205 H 195 H 11/29/24 11/29/24 07:16 11:54 Hold Purple Top aPTT Heparin Protocol POC Glucose 178 H 266 H Preliminary micro results at discharge 11/27/24 Unknown Urine Culture - Preliminary Urine clean catch - Clean Catch Midstream Staphylococcus species 11/27/24 17:48 Blood Culture - Preliminary Blood - Venous No growth after 24 hours. 11/27/24 17:48 Blood Culture - Preliminary Blood - Venous No growth after 24 hours. Discharge Plan Discharge Anticipated Discharge Date/Time: 11/29/24 11:55 Patient Disposition: Xfer Acute Care Hospital Discharge Diagnosis: NSTEMI Referrals: Maranda Serna MD [Primary Care Provider] - 1 Week Discharge Medications: New atorvastatin 40 mg Tablet 40 mg PO BEDTIME Qty: 30 0RF carvedilol 6.25 mg Tablet 6.25 mg PO BID Qty: 60 0RF Protocol: Hold for SBP/HR < HOLD for SBP < : 90 HOLD for HR < : 60 insulin glargine [Lantus U-100 Insulin] 100 unit/mL Solution 20 unit subcut BEDTIME Qty: 10 0RF nitroglycerin [Nitrostat] 0.4 mg Tablet, Sublingual 0.4 mg sublingual Q5MX3 PRN (Reason: Chest Pain) Qty: 30 0RF aspirin 81 mg Tablet,Chewable 81 mg PO DAILY Qty: 30 0RF levalbuterol HCl 1.25 mg/3 mL Solution For Nebulization 1.25 mg inhalation Q4H PRN (Reason: Shortness Of Breath/Wheezing) Qty: 90 0RF heparin(porcine) in 0.45% NaCl 25,000 unit/250 mL Parenteral Solution 25,000 unit continuous IV infusion .Q0M Qty: 1 0RF Continued (DME) incontinence pad, liner, disp Pad See Rx Instructions .Route Qty: 90 6RF Rx Instructions: As directed: change pads Q2-3 hours/PRN fluticasone propionate 50 mcg/actuation spray,suspension 1 spray intranasal DAILY PRN (Reason: Allergy Symptoms) acetaminophen [Tylenol Extra Strength] 500 mg tablet 500 mg PO Q6H PRN (Reason: fever or pain) Qty: 14 0RF ammonium lactate 12 % lotion 1 appl topical DAILY Rx Instructions: TO SOLES OF FEET EVERY NIGHT AND WEAR SOCKS TO BED prednisolone acetate [Pred Forte] 1 % drops,suspension 1 drp ophthalmic-Left QID estradiol [Estrace] 0.01 % (0.1 mg/gram) cream 1 appl vaginal BEDTIME Rx Instructions: pea sized amount to urethra daily at bedtime vitamin B complex Tablet 1 tab PO DAILY famotidine 20 mg tablet 20 mg PO BEDTIME PRN (Reason: Heartburn) omeprazole 20 mg tablet,delayed release (DR/EC) 20 mg PO DAILY diphenhydramine-acetaminophen [Tylenol PM Extra Strength] 25-500 mg Tablet 1 tab PO BEDTIME PRN (Reason: Insomnia) cranberry 450 mg Tablet 450 mg PO DAILY Rx Instructions: administer with a meal insulin lispro [Humalog KwikPen Insulin] 100 unit/mL insulin pen See Protocol subcut TIDA Protocol: Insulin Correction Scale Less than or equal to 110 ---- Give (units): 0 111 to 150 Give (units): 0 151 to 200 Give (units): 2 201 to 250 Give (units): 4 251 to 300 Give (units): 6 301 to 350 Give (units): 8 Greater than 350 Give (units): 10 Call MD if Blood Glucose > : 350 omega 0-mcf-cxu-fish oil [Fish Oil] 1,000 mg (120 mg-180 mg) capsule 1 cap PO DAILY ascorbic acid (vitamin C) 1,000 mg tablet 1,000 mg PO DAILY digestive enzymes Capsule 1 cap PO BID Rx Instructions: administer with food; swallow whole; do not crush/chew/dissolve/break/cut Held Farxiga 10 mg tablet 5 mg PO DAILY Hold Instructions: Resume on 12/01/24. insulin degludec [Tresiba FlexTouch U-100] 100 unit/mL (3 mL) insulin pen 20 unit subcut DAILY PRN (Reason: BLOOD SUGARS less than or equal to 300) Hold Instructions: Resume on 12/01/24. Tresiba FlexTouch U-100 100 unit/mL (3 mL) insulin pen 35 unit subcut BEDTIME PRN (Reason: BLOOD SUGARS >300) Hold Instructions: Resume on 12/01/24. Discharge Orders: Discharge Order (Routine); Ordered 11/29/24 Ordered By: Ye Elizondo Diet: Diabetic diet Activity on Discharge: As tolerated Stand Alone Forms: Patient Portal Discharge page Print Language: [place] Care Plan Goals: Being transferred to [facility] for cardiac catheterization Continue IV heparin/aspirin/statin and Coreg Use as needed Xopenex Discontinue Lantus and resume home dose of Tresiba upon discharge Health Concerns: Diabetes mellitus recommend to follow low-calorie diet with good blood sugar control Use Tresiba at bedtime Plan of Treatment: Outpatient follow-up with primary care physician and radio news anchor Assessment: As above
[2024-11-29 14:47] LABS: PTT Heparin Drip 107.5 SEC (53-77.9)
--- NOTE | 2024-11-29 15:01 | MHC.CM.PN ---
Pt is being transferred to [facility] for a cardiac cath.
[2024-11-29] MEDS: guaiFENesin DM 100/10/5 ML 5 ML SYRUP 10 ML PO (15:16)
[2024-11-29] MEDS: 0.9 % Sodium Chloride Flush 3 ML SYRINGE IVFLUSH (15:20)
--- NOTE | 2024-11-29 17:07 | P.PNIM_ITS ---
Subjective Subjective Date of Service: 11/30/24 Interval History: Being followed for non ST-elevation on IV heparin No chest pain, no shortness of breath no feeling of elephant sitting on chest. No palpitations. Review of Systems All other system reviewed and are negative. Physical Exam 2 Vital Signs: Vital Signs: Last Vital Signs Temp 98.0 F 11/29/24 15:09 Pulse 88 11/29/24 15:09 Resp 18 11/29/24 15:09 BP 118/59 L 11/29/24 15:09 Pulse Ox 94 11/29/24 15:09 O2 Del Method Room Air 11/29/24 15:09 BMI result Body Mass Index 36.8 Const: Other: General resting comfortably in no acute distress. Neck no JVD. CVS regular rate rhythm, Respiratory lungs coarse breath sounds, no respiratory distress, no wheeze, no rhonchi. Gastrointestinal abdomen soft, non tender, bowel sounds audible, no guarding , no rigidity. Extremities no edema. Neuro non focal Skin no rash Psych appropriate affect Objective Data Active Medications Acetaminophen (Acetaminophen 325 Mg Tablet) 650 mg PO Q6H PRN PRN Reason: Pain, Mild 1-3,fever,headache Aspirin (Aspirin 81 Mg Tab.Chew) 81 mg PO DAILY [facility] Last Admin: 11/29/24 07:34 Dose: 81 mg Documented By: JUVENCIO Atorvastatin Calcium (Atorvastatin Calcium 40 Mg Tablet) 40 mg PO BEDTIME [facility] Last Admin: 11/28/24 20:20 Dose: 40 mg Documented By: ALLA Benzonatate (Benzonatate 100 Mg Capsule) 200 mg PO TID PRN PRN Reason: Cough Last Admin: 11/29/24 15:16 Dose: 200 mg Documented By: JUVENCIO Calcium Carbonate (Calcium Carbonate 750 Mg Tab.Chew) 750 mg PO Q4H PRN PRN Reason: Heartburn Carvedilol (Carvedilol 6.25 Mg Tablet) 6.25 mg PO BID [facility]; Protocol Famotidine (Famotidine 20 Mg Tablet) 20 mg PO BEDTIME PRN PRN Reason: Heartburn Glucose (Glucose Gel 15 Gm Gel..Gram.) 15 gm PO Q15M PRN; Protocol PRN Reason: per Hypoglycemia Standing Ord. Guaifenesin/Dextromethorphan (Guaifenesin Dm 100/10/5 Ml 5 Ml Syrup) 10 ml PO Q6H PRN PRN Reason: Cough Last Admin: 11/29/24 15:16 Dose: 10 ml Documented By: JUVENCIO Heparin Sodium (Porcine) (Heparin Sodium,Porcine 5,000 Unit/Ml Vial) 3,700 unit 40 unit/kg (3700 unit) IVPUSH PROTOCOL BOLUS PRN; Protocol PRN Reason: 40 unit/kg - Heparin Protocol Last Admin: 11/29/24 07:38 Dose: 3,700 unit Documented By: JUVENCIO Heparin Sodium (Porcine) (Heparin Sodium,Porcine 5,000 Unit/Ml Vial) 7,300 unit 80 unit/kg (7300 unit) IVPUSH PROTOCOL BOLUS PRN; Protocol PRN Reason: 80 unit/kg - Heparin Protocol Heparin Sodium/Sodium Chloride (Heparin Sodium,Porcine/1/2ns) 25,000 unit in 250 mls @ 0 mls/hr IVCONT .Q0M [facility]; Protocol Last Titration: 11/29/24 15:45 Dose: 9.95 units/kg/hr, 9.08 mls/hr Documented By: JUVENCIO Co-signed By: AVELINO Dextrose (D10) 250 mls @ 750 mls/hr IV Q15M PRN; Protocol PRN Reason: per Hypoglycemia Standing Ord. Insulin Glargine (Insulin Glargine,Hum.Rec.Anlog 100 Unit/Ml 10 Ml Vial) 20 unit SUBCUT BEDTIME [facility] Last Admin: 11/28/24 20:17 Dose: Not Given Documented By: ALLA Non-Admin Reason: Patient Refused Insulin Human Lispro (Insulin Lispro 100 Unit/Ml 3 Ml Vial) 0 unit SUBCUT QIDACHS [facility]; Protocol Last Admin: 11/29/24 16:41 Dose: Not Given Documented By: JUVENCIO Non-Admin Reason: poc 136 Levalbuterol HCl (Levalbuterol Hcl 1.25 Mg/3 Ml Vial.Neb) 1.25 mg INHALE Q4H PRN PRN Reason: Shortness of Breath/Wheezing Last Admin: 11/29/24 11:11 Dose: 1.25 mg Documented By: CHRISTIAN Magnesium Hydroxide (Milk Of Magnesia 30 Ml Oral.Susp) 30 ml PO DAILY PRN PRN Reason: Constipation Melatonin (Melatonin 3 Mg Tablet) 6 mg PO BEDTIME PRN PRN Reason: Insomnia Nitroglycerin (Nitroglycerin 0.4 Mg Tab.Subl) 0.4 mg SUBLINGUAL Q5MX3 PRN PRN Reason: Chest Pain Omeprazole (Omeprazole 20 Mg Capsule.Dr) 20 mg PO DAILY@0630 [facility] Last Admin: 11/29/24 06:06 Dose: 20 mg Documented By: ALLA Ondansetron HCl (Ondansetron Hcl 4 Mg/2 Ml Vial) 4 mg IVPUSH Q8H PRN PRN Reason: Nausea and Vomiting Prednisolone Acetate (Prednisolone Acetate 1 % Oph Susp 5 Ml Drpbtl) 1 drop EYE-LEFT QID [facility] Last Admin: 11/29/24 12:07 Dose: 1 drop Documented By: JUVENCIO Sodium Chloride (0.9 % Sodium Chloride Flush 3 Ml Syringe) 3 ml IVFLUSH QSHIFT [facility] Last Admin: 11/29/24 15:20 Dose: 3 ml Documented By: JUVENCIO Labs 11/28/24 04:06 11/28/24 04:06 Labs: Laboratory Results - last 24 hr 11/28/24 11/29/24 11/29/24 20:06 05:58 07:16 Hold Purple Top SEE NOTE aPTT Heparin Protocol 43.6 L D POC Glucose 195 H 178 H 11/29/24 11/29/24 11:54 13:48 Hold Purple Top aPTT Heparin Protocol 107.5 H* D POC Glucose 266 H Microbiology Microbiology Results: Microbiology 11/27/24 Unknown Urine Culture - Preliminary Urine clean catch - Clean Catch Midstream Staphylococcus species 11/27/24 17:48 Blood Culture - Preliminary Blood - Venous No growth after 24 hours. 11/27/24 17:48 Blood Culture - Preliminary Blood - Venous No growth after 24 hours. Assessment and Plan (1) NSTEMI (non-ST elevated myocardial infarction): Status: Acute Plan 64-year-old female with a PMH HTN, HLD, insulin-dependent type 2 diabetes, significant for CKD 3,?pancreatic insufficiency, IBS, and GERD who presents to the ED with?URI like symptoms including rhinorrhea, sneezing, sore throat, nonproductive cough, and shortness breath x2 weeks. Pt will be admitted to the hospital for treatment and further evaluation of NSTEMI. NSTEMI No recurrent episode of chest pain since admission Multiple coronary artery disease risk factors including diabetes mellitus, hypertension,and hyperlipidemia troponins elevated at 702.1 > 743.6> 836 Continue IV heparin drip,Aspirin, statin Echocardiogram Seen by Cardiology they recommend to continue above treatment, and transfer to [facility] for cardiac catheterization Acute Viral sepsis Sore throat, sneezing, rhinorrhea, nonproductive cough x2 weeks CXR and CT of chest negative for pneumonia, pulmonary edema, or pleural effusions; COVID/RSV/flu negative; no GI complaints respiratory panel positive for rhino/entero virus, UA showed trace bacteria with positive nitrates and WBC Supportive care Pulmonary nodule Incidental CT finding,Pt appears to have been aware of this Recommendation outpatient follow-up in 3 months for repeat imaging if no previous imaging done HLD Continue statin Chronic kidney disease stage 3 Insulin-dependent type 2 diabetes Blood sugar around 200 On Tresiba 35 units bedtime as needed, Farxiga 5 mg and Tresiba 20 units subQ daily as needed for blood sugars less than or equal to 300 and insulin sliding scale cont Sliding-scale insulin, add Lantus 20u at bedtime Diabetic diet GERD Continue famotidine Class 2 obesity low-calorie diet Full Code DVT Prophylaxis: On heparin drip Pt will require continued inpatient hospitalization for treatment of?NSTEMI requiring close cardiac monitoring and heparin drip. Quality Stroke Does the patient have a stroke diagnosis?: No VTE Prior VTE?: No VTE Risk Level:: Medical - moderate - high VTE Device Contraindication: Treatment Not Indicated VTE Drug Contraindication: N/A - Med Ordered
[2024-11-29 18:17] LABS: Glucose, Whole Blood 136 mg/dL (60-115)
[2024-11-29 20:28] LABS: Glucose, Whole Blood 189 mg/dL (60-115)
[2024-11-29] MEDS: carvediloL 6.25 MG TABLET PO (20:58)
[2024-11-29] MEDS: Insulin Glargine,Hum.rec.anlog 100 UNIT/ML 10 ML VIAL 20 UNIT SUBCUT (20:58)
[2024-11-29] MEDS: Atorvastatin Calcium 40 MG TABLET PO (21:02)
[2024-11-29] MEDS: Heparin Sodium,Porcine/1/2NS 25,000 UNIT/250 ML IV.SOLN 9.08 UNIT IVCONT (21:07)
[2024-11-30 03:14] VITALS: BP 125/56; PULSE 87; RESP 20; TEMP 36.4; O2SAT 91
[2024-11-30 04:27] LABS: PTT Heparin Drip 31.7 SEC (53-77.9)
[2024-11-30] MEDS: Heparin Sodium,Porcine 5,000 UNIT/ML VIAL 7300 UNIT IVPUSH (04:42)
[2024-11-30] MEDS: Omeprazole 20 MG CAPSULE.DR PO (06:15)
[2024-11-30 07:50] LABS: Glucose, Whole Blood 156 mg/dL (60-115)
[2024-11-30 07:56] VITALS: BP 120/58; PULSE 99; RESP 20; TEMP 36.2; O2SAT 96
[2024-11-30] MEDS: Aspirin 81 MG TAB.CHEW PO (08:00)
[2024-11-30] MEDS: 0.9 % Sodium Chloride Flush 3 ML SYRINGE IVFLUSH (08:00)
[2024-11-30] MEDS: carvediloL 6.25 MG TABLET PO (08:00)
[2024-11-30] MEDS: Insulin Lispro 100 UNIT/ML 3 ML VIAL SUBCUT (08:00)
[2024-11-30] MEDS: prednisoLONE Acetate 1 % Oph Susp 5 ML DRPBTL 1 DROP EYE-LEFT (08:01)
--- NOTE | 2024-11-30 08:34 | PM.PNCARD ---
Subjective Subjective Date of Service: 11/30/24 Principal diagnosis: NSTEMI, bronchitis Interval history: Patient awaiting the bed. No new cardiac symptoms. Planned for cardiac catheterization at [facility] today Review of Systems Constitutional: Reports no additional constitutional complaints Cardiovascular: Reports dyspnea on exertion Respiratory: Reports cough, Reports dyspnea on exertion and Reports wheezing Musculoskeletal: Reports no additional musculoskeletal complaints Skin/Breast: Reports system reviewed and no additional complaints, except as docu Reports system reviewed and no additional complaints, except as documented Psychiatric: Reports no additional psychiatric complaints Allergic/Immunologic: Reports no additional allergic/immunologic complaints and Reports wheezing Physical Exam Vital Signs: Last Vital Signs Temp 97.1 F 11/30/24 07:56 Pulse 99 11/30/24 07:56 Resp 20 11/30/24 07:56 BP 120/58 L 11/30/24 07:56 Pulse Ox 96 11/30/24 07:56 O2 Del Method Room Air 11/30/24 07:56 BMI result Body Mass Index 36.8 Const General: cooperative, alert, awake and anxious Nutritional Appearance: obese Orientation/consciousness: patient oriented x3 Neck Neck: Yes trachea midline, Yes supple and Yes no JVD Resp Auscultation: wheezes and diminished lung sounds Cardio Jugular venous distension: no JVD Rate: regular rate Rhythm: regular rhythm Heart sounds: S1 normal heart sound present, S2 normal heart sound present, no click, no gallops and no murmurs GI Auscultation: normal bowel sounds Neuro General: patient oriented x3 and no focal motor deficits Extrem General: Yes no clubbing, cyanosis or edema Objective Labs and Meds 11/28/24 04:06 11/28/24 04:06 Lab results: Laboratory Results - last 24 hr 11/29/24 11/29/24 11/29/24 11:54 13:48 16:23 aPTT Heparin Protocol 107.5 H* D POC Glucose 266 H 136 H 11/29/24 11/29/24 11/30/24 20:25 21:43 04:15 aPTT Heparin Protocol 57.0 D 31.7 L D POC Glucose 189 H 11/30/24 07:47 aPTT Heparin Protocol POC Glucose 156 H Progress Note: A&P Assessment and plan (1) NSTEMI (non-ST elevated myocardial infarction): Status: Acute Assessment and Plan: Continue IV heparin till transfer. Planned for [facility] transferred today. Continue aspirin and high-intensity statins. Further treatment based on finding of cardiac catheterization. Risks and benefits were discussed. Time Spent With Patient Time: Total time managing care of this patient today ____ minutes. Progress Note: Quality Stroke Does the patient have a stroke diagnosis?: No Procedures Date of Service Date of Service: 11/30/24
== END 2024-11-30 10:47 | disposition short-term general hospital (02) | DRG 720 ==
LOC: HO.ED 20:38 → HO.EDOVER 21:06 → HO.IMC 11-28 10:58
PROVIDERS: Emergency Medicine; Nurse Practitioner Family; Physician Assistant Medical; Admitting Provider Student in an Organized Health Care Education/Training Program; Emergency Provider Emergency Medicine; PCP Family Medicine; Visit Provider Hospitalist
DX: A41.89 Other specified sepsis (principal); I21.4 Non-ST elevation (NSTEMI) myocardial infarction; E11.22 Type 2 diabetes mellitus with diabetic chronic kidney disease; I12.9 Hypertensive chronic kidney disease with stage 1 through stage 4 chronic kidney disease, or unspecified chronic kidney disease; R91.1 Solitary pulmonary nodule; B97.89 Other viral agents as the cause of diseases classified elsewhere; B97.10 Unspecified enterovirus as the cause of diseases classified elsewhere; N18.30 Chronic kidney disease, stage 3 unspecified; K21.9 Gastro-esophageal reflux disease without esophagitis; E66.812 Obesity, class 2; J40 Bronchitis, not specified as acute or chronic; Z68.36 Body mass index [BMI] 36.0-36.9, adult; E78.5 Hyperlipidemia, unspecified; Z20.822 Contact with and (suspected) exposure to COVID-19; Z71.3 Dietary counseling and surveillance; Z79.4 Long term (current) use of insulin; Z79.899 Other long term (current) drug therapy
CPT/HCPCS: 0241U; 36415; 71046; 71250; 80048; 80053; 80061; 81001; 82947; 83605; 83880; 84484; 85025; 85027; 85379; 85610; 85730; 86140; 87040; 87086; 87186; 87633; 93005; 93306; 94640; 99285; J0696; J1644; Q9957

== ENCOUNTER → 2024-11-27 12:35 | Outpatient (BNV) | payer MEDICAID, SELFPAY | PROVIDERS: Emergency Provider Emergency Medicine; PCP Family Medicine; Visit Provider Nuclear Medicine | DX: I25.10 Atherosclerotic heart disease of native coronary artery without angina pectoris (principal); R91.1 Solitary pulmonary nodule; R92.1 Mammographic calcification found on diagnostic imaging of breast; R06.02 Shortness of breath; R05.9 Cough, unspecified | CPT/HCPCS: 71046; 71250 ==

== ENCOUNTER → 2024-11-27 12:38 | Outpatient (BNV) | payer MEDICAID, SELFPAY | PROVIDERS: Emergency Provider Emergency Medicine; PCP Family Medicine; Visit Provider Internal Medicine Cardiovascular Disease | DX: R94.31 Abnormal electrocardiogram [ECG] [EKG] (principal) | CPT/HCPCS: 93010 ==

== ENCOUNTER → 2024-11-27 20:32 | Outpatient (BNV) | payer MEDICAID, SELFPAY | PROVIDERS: Admitting Provider Student in an Organized Health Care Education/Training Program; Emergency Provider Emergency Medicine; PCP Family Medicine; Visit Provider Student in an Organized Health Care Education/Training Program | DX: I21.4 Non-ST elevation (NSTEMI) myocardial infarction (principal) | CPT/HCPCS: 99223; 99232; 99239 ==

== ENCOUNTER → 2024-11-27 20:32 | Outpatient (BNV) | payer MEDICAID, SELFPAY | PROVIDERS: Admitting Provider Student in an Organized Health Care Education/Training Program; Emergency Provider Emergency Medicine; PCP Family Medicine; Visit Provider Internal Medicine Cardiovascular Disease | DX: I21.4 Non-ST elevation (NSTEMI) myocardial infarction (principal) | CPT/HCPCS: 99223 ==

== ENCOUNTER → 2024-11-30 23:59 | Outpatient (BNV) | payer MEDICAID, SELFPAY | PROVIDERS: PCP Family Medicine; Visit Provider Internal Medicine Cardiovascular Disease | DX: I21.4 Non-ST elevation (NSTEMI) myocardial infarction (principal) | CPT/HCPCS: 93458; 99152 ==

== ENCOUNTER 2024-12-22 13:58 | Outpatient (AMB) | payer MEDICAID, SELFPAY ==
[2024-12-22 14:02] VITALS: BP 108/50; PULSE 116; BMI 36.5
--- NOTE | 2024-12-22 14:02 | A.OFFVIS_ITS ---
Vital Signs 12/22/24 14:02 Height 5 ft 2 in Weight 199 lb 11.821 oz BMI 36.5 BP 108/50 L Blood Pressure Location Lt brachial Position Sitting Pulse 116 H Pulse Source Pulse Oximeter Intake Visit Reasons: needs 6-8 wk fu Nstemi Youth Accommodation Support Worker Required: No Accompanied by: Self / Same As Patient Allergies Pork/Porcine Containing Products [Pork/Porcine Product Derivatives] Allergy (Mild, Verified 11/27/24 12:38) SORES /ITCHING nickel Adverse Reaction (Verified 11/27/24 12:38) Swelling and irritation seasonal Allergy (Unknown, Uncoded 03/22/24 13:36) Itchy Eyes Medication List - Last Reconciled 12/22/24 by Elmer Rosa NP acetaminophen (Tylenol Extra Strength) 500 mg PO Q6H PRN ammonium lactate 12% 1 appl topical DAILY ascorbic acid (vitamin C) 1,000 mg PO DAILY aspirin 81 mg PO DAILY atorvastatin 40 mg PO BEDTIME carvedilol 6.25 mg See Protocol PO BID cranberry fruit (cranberry) 450 mg PO DAILY dapagliflozin propanediol (Farxiga) 5 mg PO DAILY digestive enzymes 1 cap PO BID diphenhydramine-acetaminophen 25-500 mg (Tylenol PM Extra Strength) 1 tab PO BEDTIME PRN estradiol 0.01%(0.1mg/gram) (Estrace) 1 appl vaginal BEDTIME famotidine 20 mg PO BEDTIME PRN fluticasone propionate 50 mcg/actuation 1 spray intranasal DAILY PRN incontinence pad, liner, disp As directed: change pads Q2-3 hours/PRN insulin degludec (Tresiba FlexTouch U-100 insulin) 35 units subcut BEDTIME PRN insulin lispro (Humalog KwikPen (U-100) Insulin) See Protocol units subcut TIDAC levalbuterol HCl 1.25 mg (3 mL) inhalation Q4H PRN nitroglycerin (Nitrostat) 0.4 mg sublingual Q5MX3 PRN omega 2-wie-oqw-fish oil 1,000 (120-180) mg (Fish Oil) 1 cap PO DAILY omeprazole 20 mg PO DAILY prednisolone acetate 1% (Pred Forte) 1 drp ophthalmic-Left QID vitamin B complex 1 tab PO DAILY HPI Comments Details: This is a 64-year-old female patient presenting for hospital discharge follow- up. She has medical history of diabetes, stage 3 chronic kidney disease, hypertension, and hyperlipidemia. She was admitted after presenting to the ER with ongoing upper respiratory symptoms for the past 2 weeks which were then followed by chest heaviness over the past few days that led her to come to the hospital. Patient was found to have rhino and enterovirus infection and NSTEMI in the setting of viral illness. A chest CT showed no lung pathology, and her echocardiogram was mostly normal. EKG revealed subtle ST depressions. She was treated with heparin drip, DuoNebs, IV antibiotics. This decided to send her to [facility] for cardiac catheterization for the further evaluation of the NSTEMI, where she was started on dual antiplatelet therapy. Today 2 weeks post cardiac catheterization, the patient reports persistent, awake constant chest discomfort that does not worsen with exertion. She also mentions lightheadedness but denies presyncope or syncope. Patient also denies any orthopnea, PND, or leg edema. PFSH Medical History Pancreatic insufficiency Pancreatic insufficiency Tubular adenoma CKD (chronic kidney disease) Anemia GERD (gastroesophageal reflux disease) Renal cyst Bladder prolapse, female, acquired Hx of gastric ulcer IBS (irritable bowel syndrome) Kidney stones High cholesterol Diabetes Surgical History Hx of endoscopy Hx of colonoscopy History of partial hysterectomy Hx of breast reduction, elective Hx of cholecystectomy Family History Father Heart attack DM2 (diabetes mellitus, type 2) Mother DM2 (diabetes mellitus, type 2) COPD (chronic obstructive pulmonary disease) Other No pertinent family history Social History Household Members: Family Housing: House Do you presently have visiting nurse or other home services: No Unable to assess alcohol history related to: Unknown Alcohol intake: never Patient Tobacco Use Status: Never used Tobacco Second Hand Smoke Exposure: No service: No Review of Systems Const Denies chills, Reports difficulty sleeping, Reports fatigue, Denies fever(s), Denies weight gain and Denies weight loss ENT Reports dizziness Card Denies chest pain, Denies leg edema, Denies lightheadedness, Denies palpitations, Reports dyspnea, Denies dyspnea on exertion, Denies orthopnea and Denies other Resp Denies cough, Reports dyspnea and Denies dyspnea on exertion GI Denies hematochezia and Denies change in stool character Musc Denies abnormal gait, Denies muscle weakness, Denies numbness, Denies radiating pain into limb and Denies tingling Neuro Denies abnormal gait, Reports dizziness, Denies numbness and Denies tingling Endo Reports fatigue and Denies palpitations Physical Exam Vital Signs: Last Vital Signs Pulse 116 H 12/22/24 14:02 BP 108/50 L 12/22/24 14:02 BMI result Body Mass Index 36.5 Const General: cooperative, healthy appearing, comfortable and no acute distress Orientation/consciousness: patient oriented x3 HEENT Head: Yes normal to inspection Neck Neck: Yes normal visual inspection, Yes trachea midline and Yes supple Chest Chest palpation & inspection: normal inspection of the chest Resp Effort & Inspection: normal respiratory effort Auscultation: clear to auscultation bilaterally, no crackles, no rales, no rhonchi and no wheezes Cardio Jugular venous distension: no JVD Palpation: normal PMI Rate: tachycardic Rhythm: regular rhythm Heart sounds: S1 normal heart sound present, S2 normal heart sound present, no click, no gallops, no murmurs and no rubs Peripheral pulses: Peripheral pulses 2+ throughout GI Inspection: Yes normal to inspection Palpation (GI): Soft to palpation Auscultation: normal bowel sounds Skin General skin exam: no rashes or lesions noted Neuro General: patient oriented x3 Extrem General: Yes normal to inspection, No no pedal edema and No calf tenderness Psych Appearance: grossly normal Mental Status: mental status grossly normal Speech and movement: Normal speech and movement present Office Procedures EKG Details: EKG today showed underlying sinus rhythm, rate 114 beats per minute, low-voltage QRS, inferior infarct which is not new, can not rule out lateral infarct, [place], [place] [id number], Complete Assessment & Plan Assessment & Plan (1) S/P cardiac cath: Code(s): Z98.890 - Other specified postprocedural states Category: Medical Plan: 11/30/2024- Cardiac catheterization showed sano-yt-fzpbrhdt distal LAD disease with severe distal stenosis and severe OM1 stenosis, small caliber vessels with severe disease and not amenable to stenting therefore was started on medical management with dual antiplatelet therapy. 12/01/2024- echo showed LVEF at 57%, with LV wall thickness in the pattern of concentric hypertrophy, central venous pressure mildly elevated, with no obvious wall motion abnormalities. Continue aspirin and Plavix therapy. Continue statin therapy, ideally LDL less than 70. (2) NSTEMI (non-ST elevated myocardial infarction): Code(s): I21.4 - Non-ST elevation (NSTEMI) myocardial infarction Category: Medical Plan: Elevated troponins at 702.1, 743.6, 836. NSTEMI in the setting of rhino virus. Was treated with IV heparin during the hospital stay. Plan as above. (3) Chest pain: Code(s): R07.9 - Chest pain, unspecified Category: Medical Plan: We will add Imdur for her anginal symptoms and follow her up in 4 weeks. Blood pressure today is a little low, states stable at home, patient will return in a week for a nurse visit for blood pressure check. Advised to keep a blood pressure log. A little tachycardic today, no arrhythmia on EKG, advised to hydrate well and to build a regular exercise routine. Discussed stress medication strategies. (4) Diabetes: Code(s): E11.9 - Type 2 diabetes mellitus without complications Category: Medical Plan: Insulin-dependent. Most recent A1c 8.4%. States blood sugars stable at home. Ideally A1c less than 7.0. (5) Hospital discharge follow-up: Code(s): Z09 - Encounter for follow-up examination after completed treatment for conditions other than malignant neoplasm Plan: Advised cardiac rehab. Patient states she already has a referral order and will start in the coming week. Follow-up in 1 week with the nurse for a blood pressure visit. Follow-up in the office in 4 weeks. In the interim, patient will call us with any concerns. Advised patient to seek ER care in case of exertional chest pain not resolved rest. This note was generated using voice recognition software. While every effort has been made to ensure accuracy and proper refrigeration plant operator, there may be occasional errors that could affect the content or meaning of the described symptoms. Orders: Orders AMB EKG-In Office 12/22/24 I21.4 - Non-ST elevation (NSTEMI) myocardial infarction Medications: New isosorbide mononitrate ER 30 mg PO DAILY 60 tabs 1RF Coding Level of Care Code Est Pt Level 4 (73362) Diagnoses S/P cardiac cath Z98.890 NSTEMI (non-ST elevated myocardial infarction) I21.4 Chest pain R07.9 Diabetes E11.9 Hospital discharge follow-up Z09 CPT Codes EKG - CPT: 45885-[id number], Complete ([id number]) Time Spent (min) 32 Comment Time spent in reviewing the chart, test results, assessment, counseling and documentation.
--- OUTSIDE RECORDS SUMMARY | 2024-12-22 15:17 | XMS_ITS | Encounter Summary ---
Author Organization [employer] Address [address] [address] [address] [place] [address] Care Team Providers Care Machine Sweeper Brush Maker Name Role Phone Maranda Serna MD Primary Care Provider [phone] Reason for Visit * Reason Comments Transition Of Care (Tcm) HDF- Unschedule d THIRD LVM Encounter Details Date Type Department Care Team ([facility] st Contact Info) Description 12/08/2024 Telephone [facility] [address], [place] [phone] Maranda Serna MD [address], [place] [phone] Transition Of Care (Tcm) (HDF- Unscheduled THIRD LVM) Social History Tobacco Use Types Packs/Day Years Used Date Smoking Tobacco: Former Cigarettes Q uit: 1977 Passive Smoke Exposure: Past Smokeless Tobacco: Never Alcohol Use Standard Drinks/Week Comments Never 0 (1 standard drink = 0.6 oz pur e alcohol) Depression Answer Date Recorded Patient Health Questionnaire-9 Score 6 10/23/2022 Housing Stability Answer Date Recorded What is your housing situation today? I have tristenzeus guerin 08/29/[address] you li ve. Do you have problems with any of the following? None of the above 08/29/2023 Food Insecurity Answer Date Recorded Within the past 12 months, y ou worried that your food would run out before you got money to buy more: Never True 08/29/2023 Within the past 12 months,th e food you bought just didn't last and you didn't have enough money to get more: Never True Transportation Answer Date Recorded In the past 12 months, has l ack of transportation kept you from medical appts, meetings, work or from getting things needed for daily living? No 08/29/2023 Utilities Answer Date Recorded In the past 12 months, has t he electric, gas, oil or water company threatened to shut off services in your home? No 08/29/2023 Depression Answer Date Recorded Patient Health Questionnaire-2 Score 0 10/23/2022 Comments Unknown Sex and Gender Information Value Date Recorded Sex Assigned at Female 09/09/2022 10:18 AM EDT Legal Sex Female 10:18 AM EDT Gender Identity Female 09/09/2022 10:18 AM EDT Sexual Orientation Choose not to disclose 2021 10:18 AM EDT documented as of this encounter Miscellaneous Notes * Significant Event - Delphine Laguerre - 12/08/2024 8:02 AM EST 12/08/24 0800 Hospital Discharges and Admission for [facility] Type of Visit Hospital Admission Date of Admission/Visit 11/27/24 Date of Discharge 11/30/24 [facility] Diagnosis NSTEMI (non-ST elevated myocardial infarction) Disposition Discharged Home Follow-Up Actions Follow-Up Needed Provider appointment Follow-Up Outcome Left Voicemail Initial Contact Date 12/08/24 RICARDO Akers placed third outbound call to patient for HDF outreach.CC placed second outreach call to offer patient with an HDF appointment with provider. No answer at this time. Patient's name and were not confirmed. CC left detailed message educating patient on importance of following up with provider following an inpatient admission. Provided contact information requesting a call back in order to schedule the HDF appointment. Patient educated via voicemail on extended clinic hours on Mondays and Wednesdays, and Walk-In Urgent Care Located in [facility]. Patient provided with after-hoursline for [facility], , which offer night time triage service and option to transfer to on callprovider if needed. CC will await return call from the patient. documented in this encounter Plan of Treatment Upcoming Encounters Date Type Department Care Team (Late st Contact Info) Description 01/17/2025 11:00 AM EDT Office Visit [facility] [address] [place] [address] Maranda Serna MD [address] [place] [address] documented as of this encounter Visit Diagnoses Not on filedocumented in this encounter Additional Health Concerns Assessment Noted Time PHQ-9 Depression Total Score: 6 10/23/20 22 10:04 AM EST documented as of this encounter Care Teams Machine Sweeper Brush Maker Relationship Specialty Start Date End Date Maranda Serna MD [address] [place] [address] PCP - General Family Medicine 08/01/21 documented as of this encounter
--- OUTSIDE RECORDS SUMMARY | 2024-12-22 15:17 | XMS_ITS | Encounter Summary ---
Author Organization [facility] Address [address] [place] [address] Care Team Providers Care Registration Representative Name Role Phone Viet Sánchez Unavailable [phone] Viet Sánchez Primary Care Provider Encounter Details Date Type Department Care Team (Late st Contact Info) Description 11/09/2019 Prep for Surgery OPHTHALMOLOGY [address] [place] [address] Holland Hutn MD [address] [facility] [address] [place] [address] Social History Tobacco Use Types Packs/Day Years Used Date Smoking Tobacco: Never Smokeless Tobacco: Never Alcohol Use Standard Drinks/Week Comments No 0 (1 standard drink = 0.6 oz pur e alcohol) AUDIT-C Answer Date Recorded Frequency of Alcohol Consumption Never 06/23/2018 Average Number of Drinks Not on file 018 Frequency of Binge Drinking Not on file 06/10 Sex and Gender Information Value Date Recorded Sex Assigned at Not on file Gender Identity Not on file Sexual Orientation Not on file documented as of this encounter Plan of Treatment Not on file documented as of this encounter Visit Diagnoses Not on filedocumented in this encounter Care Teams Registration Representative Relationship Specialty Start Date End Date Viet Sánchez PA [address] [place] [address] PCP - General 06/18/18 Viet Sánchez PA [address] [place] [address] 06/18/18 documented as of this encounter
--- OUTSIDE RECORDS SUMMARY | 2024-12-22 15:17 | XMS_ITS | Data Portability ---
Author Organization [place] - [facility], Allergy Address [address] [address] Assessment No assessment recorded. Plan of Treatment Reminders Order Date Submit Date Provider Last Modified By Organization Details Last Modified Time Details Appointments None recorded. Lab None recorded. Referral None recorded. Procedures None recorded. Surgeries None recorded. Imaging CT, neck, soft tissue, w/ contrast - evaluate lingual tonsil hyperophy 2023 024 [facility], [address] [place] [address], [id number], 4 12:06:24 [place], modified barium swallow study [address] [facility], [address] [place] [address], [id number], 4 15:47:26 Medication Orders None recorded. Patient TargetsNo targets recorded. Patient InstructionsNo instructions recorded. Reason for Referral None Reported. Results Created Date Observation Date Name Description Value Unit Range Abnormal Flag Note LastModifiedBy Organization Detail LastModifiedTime 07/29/20 24 07/29/2024 [place], modif ied izaiah mccabe ow study No observ ation record ed. [facility]steiner [facility] 100 [facility] 100, [place], [address], 08/02/2024 14:43:11 09/28/20 24 09/25/2024 MRI, head + neck + orbit s, w/wo contr ast [facility] Access ion Number : [id number] Patiyee t Name: Ese Mendozaa jn Record Number : [id number] Date of : 1959 Date of Exam: 2023 Referr ing Physic oliver: Hannaste iner, [facility] [place] [address] [place] [address] Exam: MR Orbits , Face, Neck (C-/C+ ) CPT 73594 Room Descri ption: Robeline GE Pion 3T MRI of the soft tissue s neck withou t and with contra st. HISTOR Y: Headac hes. Proble m with swallo wing. Compar bernice: None FINDIN GS: Small old lacuna r infarc ts are seen in the visual ized khushbu. No abnorm al enhanc ement. The airway is patent . There is no defini te mass, abnorm al signal or abnorm al enhanc ement within the nasoph arynx, oropha rynx as and the larynx . The tongue appear s symmet rical with normal signal s. No focal lesion . Bilate ral paroti d glands and subman dibula r glands show no focal abnorm alitie s or abnorm al enhanc ement. 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 There is a 9 mm hyperi ntense T2 nodule in the right thyroi d lobe. No furthe r workup is needed per ACR criter ia. There is no lympha denopa thy throug hout the soft tissue s neck. Postco ntrast images show no abnorm al enhanc ement. The cervic al spine shows mild spondy losis on the sagitt al images . The detail s are limite d . Status post right lens extrac tion. 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 Please correl ate clinic ally. Minima l mucosa l thicke yuli is seen in the fronta l and ethmoi d sinuse s. IMPRES JACKSON: No defini te mass is seen in the pharyn x and larynx . The airway is patent . A small right thyroi d nodule is noted. No furthe r workup is needed per ACR criter ia. Electr onical ly Signed By: Vikram mike [facility] [address], [place], [address], 10/01/2024 16:52:47 Result Notes None recorded. 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 Procedures Surgical History Date Name Laterality Status Provider Name and Address Organization Details Recorded Time 07/01/2024 FFL_RE completed GENARO PELAEZ MD [address], [address], [facility] [place] 07/01/2024 12:01:28 Imaging Results Imaging Date Name Status LastModified by Organiz ation Details LastModified Time 07/29/2024 [place], modified barium swallow study completed [facility] [address] [place] [address], [place], [address], 08/02/2024 14:43:11 09/25/2024 MRI, head + neck + orbits, w/wo contrast completed [facility] ([facility]) [address], [place], [address], 10/01/2024 16:52:47 Procedure Notes None recorded. Medical Equipment None Reported. Allergies Allergen ID Allergen Name Allergen Category Reaction Reaction Severity Criticality Documentation Date Start Date Code Code System Note Provider Name and Address Organization Details Recorded Time 038022 rubber, unspecifi ed environme nt,medica tion Not available Not available Not available 07/01/2024 29388 5 UNK Ashu quesada [place] - [facility] 4 11:45:16 695708 pork allergeni c extract food,medi cation Not available Not available Not available 07/01/2024 50870 8 RxNorm Ashu quesada [place] - [facility] 4 11:45:41 Medications Name Sig Start Date Stop Date Status Note LastModified by Organization Details LastModified Time amoxicillin 500 mg capsule TAKE 1 CAPSULE BY MOUTH THREE TIMES DAILY UNTIL GONE 07/01 completed Not Available Not Available Not Available acetaminoph en 325 mg tablet TAKE 1 TABLET BY MOUTH EVERY 6 HOURS NEEDED FOR PAIN active Not Available Not Available No t Available ammonium lactate 12 % lotion APPLY TABLET TO THE soles OF THE FEET EVERY DAY DIRECTED, wear socks TO bed AT NIGHT active Not Available Not Available No t Available cetirizine 5 mg tablet TAKE 1 TABLET BY MOUTH EVERY MORNING 07/01 completed Not Available Not Available Not Available acetaminoph en 500 mg tablet TAKE 1 TO 2 TABLETS BY MOUTH EVERY 8 HOURS NEEDED FOR PAIN OR FEVER active Not Available Not Available No t Available amoxicillin 500 mg tablet TAKE 1 TABLET BY MOUTH THREE TIMES DAILY FOR 7 DAYS 07/01 completed Not Available Not Available Not Available famotidine 20 mg tablet TAKE 1 TABLET BY MOUTH DAILY AT BEDTIME 07/01 completed Not Available Not Available Not Available prednisolon e acetate 1 % eye drops,suspe nsion PLACE 1 DROP IN THE LEFT EYE FOUR TIMES DAILY 07/01 completed Not Available Not Available Not Available diazepam 2 mg tablet TAKE 1 TABLET BY MOUTH TWICE DAILY NEEDED FOR MUSCLE SPASMS 07/01 completed Not Available Not Available Not Available prednisolon e sodium phosphate 1 % eye drops INSTILL 1 DROP IN THE LEFT EYE ONCE DAILY 07/01 completed Not Available Not Available Not Available cephalexin 500 mg capsule TAKE 1 CAPSULE BY MOUTH THREE TIMES DAILY IN THE MORNING, IN THE EVENING, AND AT BEDTIME FOR 7 DAYS 07/01 completed Not Available Not Available Not Available niacinamide 500 mg tablet TAKE 1 TABLET BY MOUTH TWICE DAILY WITH BREAKFAST AND WITH EVENING MEAL active Not Available Not Available No t Available oxybutynin chloride ER 5 mg tablet,exte nded release 24 hr TAKE 1 TABLET BY MOUTH ONCE DAILY 07/01 completed Not Available Not Available Not Available cephalexin 500 mg tablet TAKE 1 TABLET BY MOUTH THREE TIMES DAILY IN THE MORNING, EVENING, AND BEDTIME FOR 7 DAYS 07/01 completed Not Available Not Available Not Available hydroxyzine HCl 25 mg tablet TAKE 1 TABLET BY MOUTH THREE TIMES DAILY IN THE MORNING, AT NOON, AND AT BEDTIME FOR ITCHING NEEDED 07/01 completed Not Available Not Available Not Available gabapentin 100 mg capsule TAKE 1 CAPSULE BY MOUTH THREE TIMES DAILY IN THE MORNING, EVENING, AND BEDTIME active Not Available Not Available No t Available estradiol 0.01% (0.1 mg/gram) vaginal cream APPLY PEA SIZED AMOUNT TO URETHRA TWICE A WEEK active Not Available Not Available No t Available insulin lispro (U-100) 100 unit/mL subcutaneou s pen INJECT 14 UNITS SUBCUTANE OUSLY THREE TIMES DAILY BEFORE MEALS active Not Available Not Available No t Available FreeStyle Lite Strips USE DIRECTED TO TEST BLOOD SUGAR THREE TIMES DAILY active Not Available Not Available No t Available FreeStyle Ashley Lite kit USE DIRECTED TO TEST BLOOD SUGAR THREE TIMES DAILY active Not Available Not Available No t Available diclofenac 1 % topical gel APPLY 4 GRAMS TOPICALLY TO AFFECTED AREA(S) THREE TIMES DAILY active Not Available Not Available No t Available TRUEplus Lancets 33 gauge USE DIRECTED TO TEST BLOOD SUGAR THREE TIMES DAILY active Not Available Not Available No t Available Farxiga 10 mg tablet TAKE 1 TABLET BY MOUTH EVERY DAY active Not Available Not Available No t Available Tresiba FlexTouch U-100 insulin 100 unit/mL (3 mL) subcutaneou s pen INJECT 62 UNITS SUBCUTANE OUSLY EVERY DAY active Not Available Not Available No t Available FreeStyle Doug 2 Sensor kit USE DIRECTED CHANGE EVERY 14 DAYS active Not Available Not Available No t Available FreeStyle Doug 2 [place] USE DIRECTED active Not Available Not Available No t Available Vitals Date Recorded Body height Body mass index (BMI) Body weight Provider Name and Address Organization Details Last Updated DateTime 07/01/2024 157.48 cm 38.4 kg/m2 99192.4 g Ashu Ramírez [facility] 07/01/2024 11:54:39 Social History None recorded. Functional Status None recorded. Mental Status None recorded. Family History Nothing Reported. Medical History No medical history recorded. Gynecological HistoryNo gynecological history recorded. Obstetrics History GPAL:G 0 P 0 0 0 0 Past Encounters Encounter ID Performer Location Encounter Start Date Encounter Closed Date Diagnosis/Indication Diagnosis SNOMED-CT Code Diagnosis ICD10 Code Diagnosis Note [id number] GENARO PELAEZ MD [facility] [address] [address] 07/01/2024 11:04:43 07/01/2024 12:01:09 Oropharyngeal dysphagia 59740267 R13.12 I recommend an MBS to better evaluate. 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 I will evaluate with a contrasted CT to make sure there are no tumors. Dysphagia 61223481 R13.1 0 see above Health Concerns Section Related Observation LastModified by Organization Detai ls LastModified Time None Recorded Concern Status LastModified by Organization Details LastModified Time None Recorded Advance Directives Directive None Recorded Payers Encounter Date Sequence Insurance Name Policy Number Policy Singer Covered Member ID Singer Member ID Guarantor Name 07/01/2024 1 [place] [facility] Ese Mendoza [id number] Ese Mendoza Notes Date Note Type Note Provider Name and Address Organization Details Recorded Time 07/01/2024 text/html She has trouble swallowing large pills. It can occur with food as well. She feels as if her throat is swollen. It has been this way for years. She has not had a recent swallow study. No current throat pain. She does not smoke. No current SOB. Takes omeprazole for GERD. GENARO PELAEZ MD [address] [place] [address], [phone], [facility] - [facility] 07/01/2024 12:04:21 OBGyn Episode No OBEpisode recorded.
--- OUTSIDE RECORDS SUMMARY | 2024-12-22 15:17 | XMS_ITS | Encounter Summary ---
Author Organization [employer] Address [address] [facility] [address] [place] [address] Care Team Providers Care Business Solution Analyst Name Role Phone Maranda Serna MD Primary Care Provider [phone] Reason for Visit * Reason Comments Med Refill Encounter Details Date Type Department Care Team (Late st Contact Info) Description 12/14/2024 Refill [facility] [address], [place] [phone] Maranda Serna MD [address] [place], [place] [phone] Type 2 diabetes mellitus with hyperglycemia, with long-term current use of insulin ([facility]) Social History Tobacco Use Types Packs/Day Years Used Date Smoking Tobacco: Former Cigarettes Q uit: 1977 Passive Smoke Exposure: Past Smokeless Tobacco: Never Alcohol Use Standard Drinks/Week Comments Never 0 (1 standard drink = 0.6 oz pur e alcohol) Depression Answer Date Recorded Patient Health Questionnaire-9 Score 6 10/23/2022 Housing Stability Answer Date Recorded What is your housing situation today? I have tristen guerin 08/29/[address] you [...] AM EDT documented as of this encounter Plan of Treatment Upcoming Encounters Date Type Department Care Team (Late st Contact Info) Description 01/17/2025 11:00 AM EDT Office Visit [facility] [address] [place] [phone] Maranda Serna MD [address] [place] [phone] documented as of this encounter Visit Diagnoses Diagnosis Type 2 diabetes mellitus with hyperglycemia, with long-term current use of insulin ([facility]) documented in this encounter Additional Health Concerns Assessment Noted Time PHQ-9 Depression Total Score: 6 10/23/20 22 10:04 AM EST documented as of this encounter Care Teams Business Solution Analyst Relationship Specialty Start Date End Date Maranda Serna MD [address] [place] [phone] PCP - General Family Medicine 08/01/21 documented as of this encounter
--- OUTSIDE RECORDS SUMMARY | 2024-12-22 15:17 | XMS_ITS | Clinical Summary ---
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 2 times every day 021 Active atorvastatin (Lipitor) 20 MG tablet Take 1 tablet by mouth in the morning. 021 Active castor oil liquid Purchases OTC_ takes daily Active cholecalcifer ol (Vitamin D-3) 10 MCG (400 UNIT) tablet Purchases OTC - takes 2 tablets daily Active Cranberry 450 MG tablet Purchases OTC - takes BID Active estradiol (Estrace) 0.1 MG/GM vaginal cream Insert into the vagina. 2 times every week Active fluticasone (Flonase) 50 MCG/ACT nasal spray spray 1 spray by intranasal route every day in each nostril 021 Active ipratropium (Atrovent) 0.06 % nasal spray Administer 1 spray into affected nostril(s) every 8 (eight) hours. 021 Active omega-3 (Fish Oil) 1000 MG capsule Purchases OTC - take 1 every day Active albuterol 108 (90 Base) MCG/ACT inhalerIndica tions:Wheezin g Inhale 1-2 puffs Every 4-6 hours as needed for wheezing. 18 g 023 Active famotidine (Pepcid) 20 MG tablet Take 1 tablet (20 mg) by mouth at bedtime. 15 tablet 023 Active cetirizine (ZyrTEC) 5 MG tablet Take 1 tablet (5 mg) by mouth in the morning. 30 tablet 023 Active Blood Glucose Monitoring Suppl (FreeStyle Lite) w/Device kit 1 Dose 3 times daily. 1 kit 023 Active omeprazole OTC (PriLOSEC OTC) 20 MG EC tablet Take 20 mg by mouth before breakfast. Do not crush, chew, or split. Active Acetaminophen Extra Strength 500 MG tablet TAKE 1 TO 2 TABLETS BY MOUTH EVERY 8 HOURS NEEDED FOR PAIN OR FEVER 90 tablet 3 024 Active TRUEplus Lancets 33G miscIndicatio ns:Type 2 diabetes mellitus with hyperglycemia , with long-term current use of insulin ([facility]) TEST BLOOD SUGAR THREE TIMES DAILY 100 each 5 024 Active glucose blood (FREESTYLE LITE) test strip TEST BLOOD SUGAR 3 TIMES A DAY 100 each 024 Active predniSONE (Deltasone) 10 MG tablet Take 1 or 2 tablets by mouth once daily for pain 10 tablet 024 Active gabapentin (Neurontin) 600 MG tablet Take 1/4 (150 mg) or 1/2 (300 mg) tablets by mouth once at bedtime 15 tablet 024 Active oxybutynin XL (Ditropan-XL) 5 MG 24 hr tablet Take 5 mg by mouth Once per day. 023 Active insulin lispro (HumaLOG) 100 UNIT/ML injection INJECT 14 UNITS SUBCUTANEOUSLY THREE TIMES DAILY BEFORE MEALS 15 mL 2 025 Active insulin degludec (Tresiba FlexTouch) 100 UNIT/ML injection INJECT 62 UNITS SUBCUTANEOUSLY EVERY DAY 30 mL 2 025 Active Easy Touch Pen [place] 31G X 8 MM miscIndicatio ns:Type 2 diabetes mellitus with hyperglycemia , with long-term current use of insulin ([facility]) USE DIRECTED THREE TIMES DAILY 200 each 11 025 Active Insulin Pen Needle (pen needle 16 ) 31G X 8 mm miscIndicatio ns:Type 2 diabetes mellitus with hyperglycemia , with long-term current use of insulin ([facility]) Inject 1 each under the skin 3 times daily. Use as instructed 270 each 023 2024 Discontinued Farxiga 10 MG Take 10 mg by mouth in the morning. 024 2024 Tresiba FlexTouch 100 UNIT/ML injection INJECT 62 UNITS SUBCUTANEOUSLY EVERY DAY 30 mL 2 024 2024 Discontinued(R eorder (will not trigger notification to Pharmacy)) Active Problems Problem Noted Date Diagnosed Date Closed nondisplaced fracture of proximal phalanx of lesser toe of right foot with routine healing 07/16/2024 Overview (07/23/2024): Pt reported she noticed bruising over 5th toe. PE findings were consistent with ecchymosis and swelling of 5th toe. -pt taking Advil for pain control. -ordered XR R foot 07/16/24 -recommended to stay off the foot as is needed for pain tolerance. -has scheduled follow up with Podiatry on 07/31/24 -previously had osteopenia; most recent DEXA on 02/10/24 normal bone density Addendum: X ray done 07/16/24 , read on 07/22/24 1. Mildly displaced, oblique fracture through the proximal metaphysis of the fifth proximal phalanx. Moderate osteoarthritis at the first through third tarsometatarsal joints with more mild osteoarthritis throughout the remaining mid foot. -given sever neuropathy and unable to feel foot, will refer to orho to see if any boot is needed Assessment & Plan (07/23/2024 5:42 AM EDT): - X-ray is still pending - continue wearing comfortable shoes and supportive care - follow up with cleaner and polisher as scheduled Assessment & Plan (07/23/2024 9:02 AM EDT): Pt reported she noticed bruising over 5th toe. PE findings were consistent with ecchymosis and swelling of 5th toe. -pt taking Advil for pain control. -ordered XR R foot 07/16/24 -recommended to stay off the foot as is needed for pain tolerance. -has scheduled follow up with Podiatry on 07/31/24 -previously had osteopenia; most recent DEXA on 02/10/24 normal bone density Addendum: X ray done 07/16/24 , read on 07/22/24 1. Mildly displaced, oblique fracture through the proximal metaphysis of the fifth proximal phalanx. Moderate osteoarthritis at the first through third tarsometatarsal joints with more mild osteoarthritis throughout the remaining mid foot. -given sever neuropathy and unable to feel foot, will refer to orho to see if any boot is needed Type 2 diabetes mellitus with diabetic polyneuro rafael 10/03/2023 Assessment & Plan (07/23/2024 5:36 AM EDT): - seeing cleaner and polisher - continue judicious use of gabapentin 100 mg tid - she wants to switch to tablet. Only tablets available are 600 and 800 mg tablet - will have her take 1/4 of 600 mg tablet and take bid; or will check with pharmacist if she can open the capsule and take inside content Assessment & Plan (01/04/2024 3:36 PM EST): - seeing cleaner and polisher - continue judicious use of gabapentin Assessment & Plan (10/03/2023 9:48 AM EST): - seeing cleaner and polisher - waiting for diabetic orthotics Adjustment disorder with mixed anxiety and depre ssed mood 10/03/2023 Assessment & Plan (10/03/2023 9:51 AM EST): - pt is having a difficulty with her 's cognitive and behavioral change - agreed to discuss with her about getting evaluation OAB (overactive bladder) 09/23/2023 Assessment & Plan (07/23/2024 5:40 AM EDT): - following with urologist - prescribed oxybutynin - patient is on SGLT2i for diabetes mellitus / CKD Elevated blood pressure read ing in office without diagnosis of hypertension 06/07/2023 Assessment & Plan (07/20/2024 1:50 PM EDT): -Goal BP < 140/90 per JNC-8 and < 130/80 per ACC/AHA guideline (Treatment threshold >= 140/90 ) -BP at goal today -Continue working on lifestyle modifications -Recommended self-monitoring BP. -Pt has tried lisinopril for renal protection, not for HTN, in the past, but it was discontinued due to hyperkalemia and cough -Currently prescribed Dapagliflozin from tube mill operator -Follow up in 3-6 mo, sooner if any problem arises Assessment & Plan (01/04/2024 3:38 PM EST): -Goal BP < 140/90 per JNC-8 and < 130/80 per ACC/AHA guideline (Treatment threshold >= 140/90 ) -BP at goal today -Continue working on lifestyle modifications -Recommended self-monitoring BP. -Pt has tried lisinopril for renal protection, not for HTN, in the past, but it was discontinued due to hyperkalemia and cough -Currently prescribed Dapagliflozin from tube mill operator -Follow up in 3-6 mo, sooner if any problem arises Assessment & Plan (06/07/2023 3:43 PM EDT): -Goal BP < 140/90 per JNC-8 and < 130/80 per ACC/AHA guideline (Treatment threshold >= 140/90 ) -BP suboptimal, repeat was normal -Continue working on lifestyle modifications -Recommended self-monitoring BP. -Pt has tried lisinopril for renal protection, not for HTN, in the past, but it was discontinued due to hyperkalemia and cough -Follow up in 3-6 mo, sooner if any problem arises Bilateral foot pain 06/07/2023 Assessment & Plan (06/07/2023 3:44 PM EDT): - left foot worse than right - multifactorial: Diabetic peripheral neuropathy; osteoarthritis; plantar fasciitis - referred to a cleaner and polisher; waiting for an appt - check the status of diabetic footwear Obesity 02/24/2023 Dyslipidemia 02/24/2023 Assessment & Plan (07/23/2024 6:09 AM EDT): - Last lipid profile in Dec 2023; ASCVD risk 10.4% - Previously prescribed pravastatin - Currently prescribed atorvastatin, but pt was having a difficulty accepting the information that it is not nephrotoxic. We discussed it again. Pt is willing to try or repeat lipid profile in 3 mo and reassess her readiness to start taking it. - Continue working on lifestyle modifications. Assessment & Plan (01/04/2024 4:24 PM EST): - 12/24/22 TC 202; TG 189; HDL 48; LDL 124 - Currently prescribed atorvastatin, but pt was having a difficulty accepting the information that it is not nephrotoxic. We discussed it again. Pt is willing to try or repeat lipid profile in 3 mo and reassess her readiness to start taking it. - Continue working on lifestyle modifications. Assessment & Plan (10/03/2023 9:49 AM EST): - 12/24/22 TC 202; TG 189; HDL 48; LDL 124 - Currently prescribed atorvastatin, but pt is having a difficulty accepting the information that it is not nephrotoxic. We discussed it again. Pt is willing to try or repeat lipid profile in 3 mo and reassess her readiness to start taking it. - Continue working on lifestyle modifications. Assessment & Plan (06/07/2023 3:41 PM EDT): - 12/24/22 TC 202; TG 189; HDL 48; LDL 124 - Currently prescribed atorvastatin, but pt is having a difficulty accepting the information that it is not nephrotoxic. We discussed it again. Pt is willing to try or repeat lipid profile in 3 mo and reassess her readiness to start taking it. - Continue working on lifestyle modifications. Assessment & Plan (02/24/2023 5:40 AM EDT): - 12/24/22 TC 202; TG 189; HDL 48; LDL 124 - Currently prescribed atorvastatin, but pt is having a difficulty accepting the information that it is not nephrotoxic. We discussed it again. Pt is willing to try or repeat lipid profile in 3 mo and reassess her readiness to start taking it. - Continue working on lifestyle modifications. Type 2 diabetes mellitus wit h stage 3b chronic kidney disease, with long-term current use of insulin 02/11/2023 Assessment & Plan (07/23/2024 5:46 AM EDT): -Hgb A1C 9.3 % slightly worsened from last visit - Continue working on lifestyle modification - Improve adherence self-monitoring glucose and insulin administration - Continue Tresiba 36-38 units at bedtime (at last visit it was increased to 65 units, but she has not been using the high dose) - Continue Humalog 12-15 units qAC (she states prefer to take right after meal instead prior) Treatment Hx -Pt has taken GLP-1 agonists and had significant side effects, mainly GI. Pt states she does not want to try any GLP-1 agonist. 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 Patient is taking this medication on and off. -metformin was discontinued due to CKDIII and renal decline. -Eye exam: 04/09/23 per pt -Foot exam: Jul 2024 Diabetic peripheral neuropathy. -Microalbumin Test: 12/30/23 Hx microalbuminuria -Lipid profile: 12/30/23 --Follow-up in 3 months or sooner for concerning symptoms Assessment & Plan (06/07/2023 3:40 PM EDT): -Hgb A1C 9.0 % greatly improved from 10.7% on 02/11/23, - Continue working on lifestyle modification - Improve adherence self-monitoring glucose and insulin administration - Continue Tresiba 36-38 units at bedtime (at last visit it was increased to 65 units, but she has not been using the high dose) - Continue Humalog 12-15 units qAC (she states prefer to take right after meal instead prior) Treatment Hx -Pt has taken GLP-1 agonists and had significant side effects, mainly GI. Pt states she does not want to try any GLP-1 agonist. 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 Patient is no longer taking this medication due to side effect. -metformin was discontinued due to CKDIII and renal decline. -Eye exam: 04/09/23 per pt -Foot exam: 10/07/22; Diabetic peripheral neuropathy. -Microalbumin Test: Hx microalbuminuria 12/24/22 UACR 27 -Lipid profile: 12/24/22 TC 202; TG 184; HDL 48; LDL 124 --Follow-up in 3 months or sooner for concerning symptoms Calculus of kidney 12/16/2022 Assessment & Plan (06/07/2023 3:34 PM EDT): - seen by urologist, last visit on Right knee pain 12/16/2022 Assessment & Plan (07/23/2024 5:56 AM EDT): - advised against taking NSAIDs - she requests anti-inflammatory; patient was informed that prednisone is the only anti-inflammatory she can take at this time, with cuation due to its effect on BG and BP; Or she can take acetaminophen. Pancreatic insufficiency 12/16/2022 Assessment & Plan (01/04/2024 3:42 PM EST): - followed by [facility] - no anatomical pancreatic abnormality on MRI in Dec 2022 - continue vegan / plant-based pancreatic enzyme Assessment & Plan (10/03/2023 9:49 AM EST): - followed by [facility] - no anatomical pancreatic abnormality on MRI in Dec 2022 - continue vegan / plant-based pancreatic enzyme Assessment & Plan (06/07/2023 3:30 PM EDT): - followed by [facility] - no anatomical pancreatic abnormality on MRI in Dec 2022 - continue vegan / plant-based pancreatic enzyme Assessment & Plan (02/24/2023 5:30 AM EDT): - followed by [facility] - no anatomical pancreatic abnormality on MRI in Dec 2022 - continue vegan / plant-based pancreatic enzyme Assessment & Plan (12/18/2022 6:12 PM EST): - followed by [facility] - continue vegan pancreatic enzyme Allergic rhinitis 10/12/2022 Anemia 10/12/2022 Assessment & Plan (07/23/2024 5:48 AM EDT): - likely due to chronic diseaes - Hx iron infusion Assessment & Plan (10/03/2023 9:48 AM EST): - likely due to chronic diseaes - Hx iron infusion - 12/24/22 Hgb 11.7, Hematocrit 35.7 Assessment & Plan (02/24/2023 5:36 AM EDT): - likely due to chronic diseaes - Hx iron infusion - 12/24/22 Hgb 11.7, Hematocrit 35.7 Assessment & Plan (12/18/2022 6:35 PM EST): - likely due to chronic diseaes - Hx iron infusion - check lab Chronic idiopathic constipation 10/12/2022 Assessment & Plan (07/20/2024 1:50 PM EDT): -Followed by [facility], last seen 08/06/22 -EGD and Colonoscopy on 12/24/21; showed Tubular Adenoma, she was recommended to repeat in 3 years. - pt has been using castor oil - continue trying fiber-rich diet and increasing physical activity as tolerated. - continue Senakot as prescribed Assessment & Plan (01/04/2024 3:38 PM EST): -Followed by [facility], last seen 08/06/22 -EGD and Colonoscopy on 12/24/21; showed Tubular Adenoma, she was recommended to repeat in 3 years. - pt has been using castor oil - continue trying fiber-rich diet and increasing physical activity as tolerated. - continue Senakot as prescribed Assessment & Plan (06/07/2023 3:33 PM EDT): -Followed by [facility], last seen 08/06/22 -EGD and Colonoscopy on 12/24/21; showed Tubular Adenoma, she was recommended to repeat in 3 years. - pt has been using castor oil - continue trying fiber-rich diet and increasing physical activity as tolerated. - continue Senakot as prescribed Assessment & Plan (12/18/2022 6:26 PM EST): -Followed by [facility], last seen 08/06/22 -EGD and Colonoscopy on 12/24/21; showed Tubular Adenoma, she was recommended to repeat in 3 years. - pt has been using castor oil - continue trying fiber-rich diet and increasing physical activity as tolerated. - continue Senakot as prescribed Chronic kidney disease, stage III (moderate) 01/2022 Assessment & Plan (07/23/2024 5:41 AM EDT): - Coin Teller, Dr. Marci Hylton. - Metformin is discontinued, Dr. Tsai started bryn ib Dapagliflozin (Farxiga) - Previously on Lisinopril, but was disccontinued due to cough / K - Avoid nephrotoxic drugs, including NSAID (no more Aleve) - Renal dose meds Assessment & Plan (01/04/2024 3:45 PM EST): - Coin Teller, Dr. 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 Tsai is prescribing Dapagliflozin (Farxiga) - Previously on Lisinopril, but was disccontinued due to cough / K - Avoid nephrotoxic drugs - Renal dose meds Assessment & Plan (10/03/2023 9:41 AM EST): - Coin Teller, Dr. 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 Tsai rx Farxiga for DM management - Previously on Lisinopril, but was disccontinued due to cough / K - Avoid nephrotoxic drugs - Renal dose meds - Pt was advised that atorvastatin is not nephrotoxic and it will lower her ASCVD risk. Pt continues to decline statin therapy. Assessment & Plan (06/07/2023 3:34 PM EDT): - Coin Teller, Dr. 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 Tsai rx Farxiga for DM management - Previously on Lisinopril, but was disccontinued due to cough / K - Avoid nephrotoxic drugs - Renal dose meds - Pt was advised that atorvastatin is not nephrotoxic and it will lower her ASCVD risk. Pt continues to decline statin therapy. - Advised to call the office for an appt Assessment & Plan (02/24/2023 5:37 AM EDT): - Coin TellerDr. Tsai - Lab: 12/24/22 BUN 28, Scr 2.0, eGFR 27 - Metformin is discontinued, Dr. Tsai rx Farxiga for DM management - Previously on Lisinopril, but was disccontinued due to cough / K - Avoid nephrotoxic drugs - Renal dose meds - Pt was advised that atorvastatin is not nephrotoxic and it will lower her ASCVD risk. Pt continues to decline statin therapy. Assessment & Plan (12/18/2022 6:31 PM EST): - Coin Teller, Dr. 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 Tsai rx Peggy for DM management - Previously on Lisinopril, but was disccontinued due to cough / K - Avoid nephrotoxic drugs - Renal dose meds - Pt was advised that atorvastatin is not nephrotoxic and it will lower her ASCVD risk. Pt continues to decline statin therapy. Gastroesophageal reflux disease 10/12/2022 Assessment & Plan (01/04/2024 3:42 PM EST): -s/p EGD 12/24/21 -followed by [facility] -continue omeprazole 40mg daily -previously tried pantoprazole and lansoprazole; pt prefers omeprazole. -previously prescribed famotidine. Max dose for her renal function is 20 mg daily. Pt does not take it regularly. Assessment & Plan (10/03/2023 9:50 AM EST): -s/p EGD 12/24/21 -followed by [facility] -continue omeprazole 40mg daily -previously tried pantoprazole and lansoprazole; pt prefers omeprazole. -previously prescribed famotidine. Max dose for her renal function is 20 mg daily. Pt does not take it regularly. Assessment & Plan (06/07/2023 3:33 PM EDT): -s/p EGD 12/24/21 -followed by [facility] -continue omeprazole 40mg daily -previously tried pantoprazole and lansoprazole; pt prefers omeprazole. -previously prescribed famotidine. Max dose for her renal function is 20 mg daily. Pt does not take it regularly. Assessment & Plan (12/18/2022 6:28 PM EST): -s/p EGD 12/24/21 -followed by [facility] -continue prantoprazol 40mg daily -previously prescribed famotidine. Max dose for her renal function is 20 mg daily. Irritable bowel syndrome 10/12/2022 Assessment & Plan (07/20/2024 1:50 PM EDT): - followed by [facility] - continue current treatment plan per GI - low FODMAP diet - pt is prescribed simethicone, Sennakot, citrucel, but does not like taking it regularly Assessment & Plan (01/04/2024 3:42 PM EST): - followed by [facility] - continue current treatment plan per GI - low FODMAP diet - pt is prescribed simethicone, Sennakot, citrucel, but does not like taking it regularly Assessment & Plan (10/03/2023 9:49 AM EST): - followed by [facility] - continue current treatment plan per GI - low FODMAP diet - pt is prescribed simethicone, Sennakot, citrucel, but does not like taking it regularly Assessment & Plan (06/07/2023 3:32 PM EDT): - followed by [facility] - continue current treatment plan per GI - low FODMAP diet - pt is prescribed simethicone, Sennakot, citrucel, but does not like taking it regularly Assessment & Plan (12/18/2022 6:27 PM EST): - followed by [facility] - continue current treatment plan per GI --FODMAP diet --simethicone, Sennakot, citrucel Obstructive sleep apnea syndrome 10/12/2022 Assessment & Plan (06/07/2023 3:30 PM EDT): - Pt does not feel comfortable with CPAP Assessment & Plan (12/18/2022 6:12 PM EST): - Pt does not feel comfortable with CPAP Osteopenia 10/12/2022 Assessment & Plan (07/23/2024 5:43 AM EDT): - weight bearing exercise as tolerated - adequate calcium and vitamin D intake Type 2 diabetes mellitus 10/12/2022 Assessment & Plan (07/23/2024 5:48 AM EDT): - A1c 9.3% on 07/19/2024. - Continue working on lifestyle modification - Improve adherence self-monitoring glucose and insulin administration - Continue Tresiba 24-28 units at bedtime, questionable adherence and understanding of insulin dosing - Change Humalog 10 units qAC (she states prefer to take right after meal instead prior) - Discussed about CGM, which she does not want to use it at this time Treatment Hx -Pt has taken GLP-1 agonists and had significant side effects, mainly GI. Pt states she does not want to try any GLP-1 agonist. 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 Patient is taking this medication on and off -metformin was discontinued due to CKDIII and renal decline. -Eye exam: 04/09/23 per pt -Foot exam: Jul 2024; diabetic peripheral neuropathy -Microalbumin Test: Dec 2023 Hx microalbuminuria -Lipid profile: Dec 2023 --Follow-up in 3 months or sooner for concerning symptoms Assessment & Plan (01/04/2024 3:51 PM EST): -Hgb A1C Error on the machine today, will check in the lab. 8.3% on 10/03/23, gradually improving. Concern for hypoglycemic episode and self-adjusting insulin dosing - Continue working on lifestyle modification - Improve adherence self-monitoring glucose and insulin administration - Continue Tresiba 24-28 units at bedtime, questionable adherence and understanding of insulin dosing - Change Humalog 10 units qAC (she states prefer to take right after meal instead prior) - Discussed about CGM, which she does not want to use it at this time Treatment Hx -Pt has taken GLP-1 agonists and had significant side effects, mainly GI. Pt states she does not want to try any GLP-1 agonist. 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 Patient is no longer taking this medication due to side effect. -metformin was discontinued due to CKDIII and renal decline. -Eye exam: 04/09/23 per pt -Foot exam: 10/07/22; Diabetic peripheral neuropathy. -Microalbumin Test: Hx microalbuminuria 12/24/22 UACR 27 -Lipid profile: 12/24/22 TC 202; TG 184; HDL 48; LDL 124 --Follow-up in 3 months or sooner for concerning symptoms Assessment & Plan (10/03/2023 9:40 AM EST): -Hgb A1C 8.3% on 10/03/23, gradually improving - Continue working on lifestyle modification - Improve adherence self-monitoring glucose and insulin administration - Continue Tresiba 36-38 units at bedtime (at last visit it was increased to 65 units, but she has not been using the high dose) - Continue Humalog 12-15 units qAC (she states prefer to take right after meal instead prior) Treatment Hx -Pt has taken GLP-1 agonists and had significant side effects, mainly GI. Pt states she does not want to try any GLP-1 agonist. 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 Patient is no longer taking this medication due to side effect. -metformin was discontinued due to CKDIII and renal decline. -Eye exam: 04/09/23 per pt -Foot exam: 10/07/22; Diabetic peripheral neuropathy. -Microalbumin Test: Hx microalbuminuria 12/24/22 UACR 27 -Lipid profile: 12/24/22 TC 202; TG 184; HDL 48; LDL 124 --Follow-up in 3 months or sooner for concerning symptoms Assessment & Plan (02/24/2023 5:33 AM EDT): -Hgb A1c 10.7% today 02/11/23, 10.4% on 12/16/22, 10/6% on 10/07/22 - Continue working on lifestyle modification - Improve adherence self-monitoring glucose and insulin administration - Increase Tresiba to 65 units qhs - Continue Humalog 15 units qAC (she states prefer to take right after meal instead prior, will try starting today) Treatment Hx -Pt has taken GLP-1 agonists and had significant side effects, mainly GI. Pt states she does not want to try any GLP-1 agonist. 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 Patient is no longer taking this medication due to side effect. -metformin was discontinued due to CKDIII and renal decline. -Eye exam: 03/29/22 -Foot exam: 10/07/22; Diabetic peripheral neuropathy. Microalbumin Test: 08/17/21 UACR 89 -Lipid profile: 08/17/21 TC 115; TG 162; HDL 46; LDL 45 on atorvastatin --Follow-up in 3 months or sooner for concerning symptoms Assessment & Plan (12/18/2022 6:34 PM EST): -Hgb A1c 10.4% today 12/16/22, 10/6% on 10/07/22 and 9.6% on 07/08/22 - Continue working on lifestyle modification - Improve adherence self-monitoring glucose and insulin administration - Continue Tresiba to 62 units qhs - Continue Humalog 15 units qAC (she states prefer to take right after meal instead prior, will try starting today) Treatment Hx -Pt has taken GLP-1 agonists and had significant side effects, mainly GI. Pt states she does not want to try any GLP-1 agonist. 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 Patient is no longer taking this medication due to side effect. -metformin was discontinued due to CKDIII and renal decline. -Eye exam: 03/29/22 -Foot exam: 10/07/22; Diabetic peripheral neuropathy. Microalbumin Test: 08/17/21 UACR 89 -Lipid profile: 08/17/21 TC 115; TG 162; HDL 46; LDL 45 on atorvastatin --Follow-up in 3 months or sooner for concerning symptoms Encounters Date Type Department Care Team Description 12/14/2024 Refill [facility] [address] [place] [address] Maranda Serna MD Type 2 diabetes mellitus with hyperglycemia, with long-term current use of insulin ([facility] 12/13/2024 Refill [facility] [address], [place] [phone] Maranda Serna MD 12/08/2024 Telephone [facility] [address] [place] [phone] Maranda Serna MD Transition Of Care (Tcm) (HDF- Unscheduled THIRD LVM) 12/07/2024 Telephone [facility] [address] [place] [address] Maranda Serna MD Hospital Follow-up 12/02/2024 Patient Outreach [facility] [address] [place] [address] Maranda Serna MD Transition Of Care (Tcm) (HDF- Unscheduled second LVM) 12/01/2024 Patient Outreach [facility] [address] [place] [address] Maranda Serna MD Transition Of Care (Tcm) (HDF- unscheduled LVM ) 11/27/2024 Orders Only [facility] External Provider, [facility] 11/25/[address] [address] Ayse Arce [place] December11/16/2024 Refill [facility] [address] [place] [address] Mahsa Acosta MD from Last 3 Months Immunizations Name Administration Dates Next Due Hep B, adult 09/23/2023,12/16/2022,07/08/2022 Influenza injectable quadriv alent preservative free 09/23/2023,09/24/2021 Influenza, IIV3, injectable 10/14/2022, Influenza, seasonal, injecta ble, preservative free 08/06/2024,01/01/2021 Pfizer Covid-19 Vaccine 12+ 08/06/2024,1 ,03/05/2021,02/10 Pneumococcal Conjugate PCV 20 09/23/2023 Pneumococcal Polysaccharide PPSV23 01/01/2021 Tdap 07/08/2022 Family History Medical History Relation Name Comments Diabetes type II Father Heart attack Father Prostate cancer Father Diabetes type II Mother Relation Name Status Comments Father Mother Social History Tobacco Use Types Packs/Day Years Used Date Smoking Tobacco: Former Cigarettes Q uit: 1976 Passive Smoke Exposure: Past Smokeless Tobacco: Never Tobacco Cessation:Counseling Given: Not Answered Alcohol Use Standard Drinks/Week Comments Never 0 [...] not to disclose 2021 10:18 AM EDT Last Filed Vital Signs Vital Sign Reading Time Taken Comments Blood Pressure 131/77 07/16/2024 1:12 PM EDT Pulse 105 07/16/2024 1:12 PM EDT Temperature 36.7 ??C (98.1 ??F) 07/16/2024 1:12 PM ED T Respiratory Rate 20 07/16/2024 1:12 PM EDT Oxygen Saturation 96% 07/16/2024 1:12 PM EDT Inhaled Oxygen Concentration - - Weight 91.6 kg (202 lb) 07/16/2024 1:12 PM EDT Height 157.5 cm (5' 2 ) 07/16/2024 1:12 PM EDT Body Mass Index 36.95 07/16/2024 1:12 PM EDT Plan of Treatment Upcoming Encounters Date Type Department Care Team (Late st Contact Info) Description 01/17/2025 11:00 AM EDT Office Visit [facility] [address] [place] [address] Maranda Serna MD [address] [place] [address] Health Maintenance Due Date Last Done Comments CT Colonography 1960 FIT DNA/Cologuard 1960 FIT 1960 FOBT 1960 HIV Screening 1960 Sigmoidoscopy 1960 Eye Exam 1970 Alcohol/Substance Use Screening 1972 Hepatitis C Screening 1978 Pap Smear 1981 Cervical Cancer Screening 1990 HPV/Cotest 1990 Zoster Vaccines (1 of 2) 2010 RSV Patients and Patients Aged 60 years or older (1 - Risk 60-74 years 1-dose series) 2020 Depression Screening 10/23/2023 10/23/2022, 10/23/20 22 SDOH Screening 10/23/2023 10/23/2022 Diabetes: Hemoglobin A1C 10/18/2024 024, 12/30/2023, 09/23/2023, Additional history exists Lipid Panel 12/30/2024 12/30/2023, 12/11, 08/17/2021 Colonoscopy 07/07/2025 07/07/2022 Colorectal Cancer Screening 07/07/2025 Diabetes: Foot Exam 07/19/2025 07/19/2024 Tobacco Screening 07/23/2025 07/23/2024 Mammogram 02/09/2026 02/10/2024, 08/21/2022 DTaP/Tdap/Td Vaccines (3 - Td or Tdap) 07/08/2032 07/08/2022, 07/24/2012 Hepatitis B Vaccines Completed 09/23/2023, 12/16/2022, 07/08/2022 Pneumococcal Vaccine: 50+ Years Completed 09/23/2023, 01/01/2021 COVID-19 Vaccine Completed 08/06/2024, , 03/05/2021, Additional history exists Influenza Vaccine Completed 08/06/2024, , 10/14/2022, Additional history exists HIB Vaccines Aged Out No longer eligi ble based on patient's age to complete this topic HPV Vaccines Aged Out No longer eligi ble based on patient's age to complete this topic Hepatitis A Vaccines Aged Out No long er eligible based on patient's age to complete this topic IPV Vaccines Aged Out No longer eligi ble based on patient's age to complete this topic Meningococcal Vaccine Aged Out No anahi bryn eligible based on patient's age to complete this topic RSV under 20 months Aged Out No longe r eligible based on patient's age to complete this topic Rotavirus Vaccines Aged Out No longer eligible based on patient's age to complete this topic Procedures Procedure Name Priority Date/Time Associated Diagnosis Comments CT CHEST WO CONTRAST Routine 11/27/2024 8:28 PM EST LACTIC ACID Routine 11/27/2024 5:48 PM EST HIGH SENSITIVITY TROPONIN I Routine 11/27/2024 4:48 PM EST C-REACTIVE PROTEIN Routine 11/27/2024 2: 07 PM EST COMPREHENSIVE METABOLIC PANEL Routine 11/27/2024 2:07 PM EST B TYPE NATRIURETIC PEPTIDE (BNP) Routine 11/27/2024 2:06 PM EST D DIMER HIGH SENSITIVITY Routine 11/27/2024 2:06 PM EST HIGH SENSITIVITY TROPONIN I Routine 11/27/2024 2:06 PM EST PROTHROMBIN TIME-INR Routine 11/27/2024 2:06 PM EST CBC WITH AUTO DIFFERENTIAL Routine 11/27/2024 2:06 PM EST XR CHEST 2 VIEWS Routine 11/27/2024 1:35 PM EST SARS COV2/INFLUENZA A/B AND RSV RNA QL NAAT Routine 11/27/2024 12:43 PM EST POCT GLYCOSYLATED HEMOGLOBIN (HGB A1C) Routine 07/19/2024 2:39 PM EDT Type 2 diabetes mellitus with hyperglycemia, with long-term current use of insulin ([facility]) BI MAMMOGRAM SCREENING TOMOSYNTHESIS BILATERAL Routine 02/10/2024 2:40 PM EDT LIPID PANEL WITH REFLEX TO DIRECT LDL Routine 12/30/2023 4:50 PM EST Type 2 diabetes mellitus with hyperglycemia, with long-term current use of insulin ([facility]) Dyslipidemia HM COLONOSCOPY Routine 07/07/2022 from Last 3 Months or Most Recently Relevant to Health Maintenance Results * CT Chest w/o Contrast (11/27/2024 8:28 PM EST) Anatomical Region Laterality Modality Body, Chest Computed Tomogra phy 11/27/2024 8:28 PM EST Narrative 11/27/2024 8:30 PM EST ? [facility] ?[address] ?[place] [address] ? CT Scan Report ? Signed ? Patient: Ese Mendoza ?MR#: [id number] ?? 8 ? : 1960 ?Acct:[id number] ? Age/Sex: 64 / F ?ADM Date: 11/27/24 ? Loc: HO.ED ? Attending Dr: ? Ordering Physician: Rajwinder Bhatti CNP ?? Date of Service: 11/27/24 ?? Procedure(s): CT chest wo IV con ?? Accession Number(s): [id number] ? cc: Rajwinder Bhatti CNP; Maranda Serna MD ? Report Number: ?? [id number]: Total DLP = ??543.00 mGy-cm ? CLINICAL HISTORY: cp, sob ? CT chest without contrast ? Comparison: CT - CHEST WITHOUT CONTRAST [id number] - 12/22/07 00:00 EST ? Findings: The prior CT report is not available for review. ?? The heart size is normal. Moderate Atherosclerosis calcification of the ?? coronary artery. Trace pericardial effusion. ?? 1.2 cm right lobe thyroid nodule. No mediastinal lymph node enlargement. ?? Large calcifications of the bilateral breast. ? No consolidation or effusion. 7.6 mm nodule of the left lower lobe series ?? 4, image 79. There are additional micro nodules. ? The upper abdomen is unremarkable. ?? Degenerative changes of the spine. ? IMPRESSION: ?? Pulmonary nodule of the left lower lobe. CT chest follow-up in 3 months is ?? recommended. ? Large calcification of the bilateral breast. Clinical correlation is ?? recommended. ?? Indeterminate 1.2 cm thyroid nodule. ?? Additional findings as above. ? Fleischner Society 2017 Guidelines for incidentally detected indeterminate ?? nodules in persons 35 years of age or older. ? Single Solid Nodules: ?? 5 mm or smaller nodules need no follow-up in low risk, and [address] ?? follow-up is optional in high risk patients. ?? 6-8 mm nodules have optional [address] follow-up in low risk, and 6-12 ?? month CT follow-up followed by 18-[address] follow-up if no change in ?? high risk patients. ?? 9 mm or larger nodules should consider CT, PET/CT, or biopsy at 3 months ?? regardless of patient risk. ? Multiple Solid Nodules: ?? 5 mm or smaller nodules need no follow-up in low risk, and [address] ?? follow-up is optional in high risk patients. ?? 6-8 mm nodules need 3-[address] follow-up followed by an optional 18-24 ?? [address] follow-up regardless of patient risk. ?? 9 mm or larger nodules should consider 3-[address] follow-up. For low ?? risk 18-24 month follow-up is optional, whereas for high risk it is needed. ? Single Ground Glass Nodules: ?? 5 mm or smaller nodules need no followup ?? 6 mm and larger nodules need CT at 6-12 months to confirm persistence, ?? then CT every 2 years until 5 years ? Single Subsolid Nodules: ?? 5 mm or smaller nodules need no followup ?? 6 mm and larger nodules need CT at 3-6 months to confirm persistence. If ?? no change and solid component /T/lt;6 mm, then CT every year until 5 years ? Multiple Ground Glass or Subsolid Nodules: ?? 5 mm or smaller nodules need CT at 3-6 months. If stable, optional CT at 2 ?? and 4 years. ?? 6 mm or larger nodules need CT at 3-6 months. Subsequent management based ?? on most suspicious nodule ? This document has been electronically signed by: Serina Nolan MD on ?? 11/27/2024 20:28:47 ? Dictated By: ?Serina Nolan MD ? Signed By: ?<Electronically signed by Serina Nolan MD in OV> ? 11/27/242028 ? DD/ 27 ? TD/TT: 11/27/242027 ? Bread Packer: ? Procedure Note Don[place]eter, Image - 11/27/[address] [place] [id number] [address] Scan Report Signed Patient: Ese MendozaMR#: [id number] 8 : 1960Acct:[id number] Age/Sex: 64 / FADM Date: 11/27/24 Loc: HO.ED Attending Dr: Ordering Physician: Rajwinder Bhatti CNP Date of Service: 11/27/24 Procedure(s): CT chest wo IV con Accession Number(s): [id number] cc: Rajwinder Bhatti CNP; Maranda Serna MD Report Number: [id number]: Total DLP = 543.00 mGy-cm CLINICAL HISTORY: cp, sob CT chest without contrast Comparison: CT - CHEST WITHOUT CONTRAST [id number] - 12/22/07 00:00 EST Findings: The prior CT report is not available for review. The heart size is normal. Moderate Atherosclerosis calcification of the coronary artery. Trace pericardial effusion. 1.2 cm right lobe thyroid nodule. No mediastinal lymph node enlargement. Large calcifications of the bilateral breast. No consolidation or effusion. 7.6 mm nodule of the left lower lobe series 4, image 79. There are additional micro nodules. The upper abdomen is unremarkable. Degenerative changes of the spine. IMPRESSION: Pulmonary nodule of the left lower lobe. CT chest follow-up in 3 months is recommended. Large calcification of the bilateral breast. Clinical correlation is recommended. Indeterminate 1.2 cm thyroid nodule. Additional findings as above. Fleischner Society 2017 Guidelines for incidentally detected indeterminate nodules in persons 35 years of age or older. Single Solid Nodules: 5 mm or smaller nodules need no follow-up in low risk, and [address] follow-up is optional in high risk patients. 6-8 mm nodules have optional [address] follow-up in low risk, and 6-[address] follow-up followed by 18-[address] follow-up if no change in high risk patients. 9 mm or larger nodules should consider CT, PET/CT, or biopsy at 3 months regardless of patient risk. Multiple Solid Nodules: 5 mm or smaller nodules need no follow-up in low risk, and [address] follow-up is optional in high risk patients. 6-8 mm nodules need 3-[address] follow-up followed by an optional 18-[address] follow-up regardless of patient risk. 9 mm or larger nodules should consider 3-[address] follow-up. For low risk 18-24 month follow-up is optional, whereas for high risk it isneeded. Single Ground Glass Nodules: 5 mm or smaller nodules need no followup 6 mm and larger nodules need CT at 6-12 months to confirm persistence, then CT every 2 years until 5 years Single Subsolid Nodules: 5 mm or smaller nodules need no followup 6 mm and larger nodules need CT at 3-6 months to confirm persistence. If no change and solid component /T/lt;6 mm, then CT every year until 5 years Multiple Ground Glass or Subsolid Nodules: 5 mm or smaller nodules need CT at 3-6 months. If stable, optional CT at 2 and 4 years. 6 mm or larger nodules need CT at 3-6 months. Subsequent management based on most suspicious nodule This document has been electronically signed by: Serina Nolan MD on 11/27/2024 20:28:47 Dictated By: Serina Nolan MD Signed By: <Electronically signed by Serian Nolan MD in OV> 11/27/242028 DD/ 27 TD/TT: 11/27/242027 Bread Packer: [facility] External Provider IMG CT PROCEDURES Edited Result - Final * Lactic Acid (11/27/2024 5:48 PM EST) [facility] Lactic Acid 1.2 0.5 - 2.0 mmol/L [facility] 11/27/2024 5:48 PM EST 11/27/2024 5:54 PM EST Generic External Data Provider LAB BLOOD ORDERAB LES Final Result Performing Organization Address [facility] Co de Phone Number [facility] [address] [place] [address] [phone] * (ABNORMAL) High Sensitivity Troponin I (11/27/2024 4:48 PM EST) Only the most recent of2 resultswithin the time period is included. [facility] TROPONIN I HIGH SENSITIVITY 743.6(HH) <3.5 - 17.0 ng/L [facility] Comment:Critical value for t est(s): TROP Results called to and readback by: VICKIE Person calling: [employer] Date: 11/27/24Time: 1717The [facility] high sensitivity Troponin-I results should beused in conjunction with other diagnostic information suchas ECG, clinical observations and information, and patientsymptoms to aid in the diagnosis of AR. 11/27/2024 4:48 PM EST 11/27/2024 4:52 PM EST Generic External Data Provider LAB BLOOD ORDERAB LES Final Result Performing Organization Address [facility] Co de Phone Number [facility] [address] [place] [address] [phone] * (ABNORMAL) C-reactive Protein (11/27/2024 2:07 PM EST) [facility] C Reactive Protein 4.57(H) < or = 0.50 mg/dL [facility] 11/27/2024 2:07 PM EST 11/27/2024 2:10 PM EST us Generic External Data Provider LAB BLOOD ORDERAB LES Final Result [facility] [address] [place] [address] [phone] * (ABNORMAL) Comprehensive Metabolic Panel (11/27/2024 2:07 PM EST) Sodium 140 135 - 145 mmol/L [facility] Potassium 4.0 3.3 - 5.1 mmol/L [facility] Chloride 108 96 - 108 mmol/L [facility] Carbon Dioxide 26 22 - 29 mmol/L [facility] Anion Gap 10(L) 12 - 20 [facility] Urea Nitrogen (BUN) 32(H) 9 - 16 mg/dL [facility] Creatinine, Serum 1.60(H) 0.5 - 1.4 mg/dL [facility] Creatinine Clr Calc Pharmacy 36.8 [facility] Comment:Provided height and weight: 157.48 cm,89.1 kg.eGFR (calculated from the MDRD study equation) and eCrCl(calculated from the Cockcroft-Gault equation) are based ondifferent parameters and may not yield comparable results.If eCrCl result is absurd, please check patient'sheight/weight. Estimated Glomerular Filt Rate 32 [facility] Comment:Chronic Kidney Disea se: Estimated GFR < 60 mL/min/1.48n4Inhnei Kidney Disease: Estimated GFR < 15 mL/min/1.73m2 Glucose 149(H) 60 - 115 mg/dL [facility] Calcium 8.6 8.4 - 10.2 mg/dL [facility] Bilirubin, Total 0.4 0.0 - 1.0 mg/dL [facility] Aspartate Amino Transferase 22 5 - 31 U/L [facility] Alanine Aminotransferase 9 0 - 31 U/L [facility] Total Protein 6.7 6.5 - 8.0 g/dL [facility] Albumin Level 3.5 3.5 - 5.0 g/dL [facility] Alkaline Phosphatase 108 39 - 117 U/L [facility] 11/27/2024 2:07 PM EST 11/27/2024 2:10 PM EST Generic External Data Provider LAB BLOOD ORDERAB LES Final Result Performing Organization Address [place] Phone Number [facility] [address] [place] [phone] * D Dimer High Sensitivity (11/27/2024 2:06 PM EST) [facility] D Dimer High Sensitivity 204 NG/ML [facility] Comment:D-DIMER HS REFERENCE RANGENote: Our assay reports D-Dimer Units (D- DU).The cut-off value for venous thromboembolic (VTE) disease is230 ng/mL. This value has a very high negative predictivevalue when the patient has a low to moderate clinicalprobability of VTE.The upper limit of normal is 243 ng/mL. 11/27/2024 2:06 PM EST 11/27/2024 2:10 PM EST Generic External Data Provider LAB BLOOD ORDERAB LES Final Result Performing Organization Address [facility] Number [facility] [address] [place] [phone] * (ABNORMAL) CBC auto differential (11/27/2024 2:06 PM EST) [facility] White Blood Count 14.0(H) 4.8 - 10.8 X10*3/uL [facility] Red Blood Count 4.15(L) 4.20 - 5.50 X10*6/uL [facility] Hemoglobin 12.0 12.0 - 16.0 g/dl [facility] Hematocrit 36.9(L) 37.0 - 47.0 % [facility] Mean Corpuscular Volume 88.9 80.0 - 98.0 fL [facility] Mean Corpuscular Hemoglobin 28.9 27.0 - 33.0 pg [facility] Mean Corpuscular HGB Conc 32.5 31.0 - 35.0 g/dl [facility] Red Cell Distribution Width 15.7 11.0 - 16.0 % [facility] Platelet Count 294 160 - 400 X10*3/uL [facility] Mean Platelet Volume 11.3 9.4 - 12.3 fL [facility] Neutrophils Percent Auto 76.2(H) 45 - 73 % [facility] Imm Gran Pct Auto 0.4 0.0 - 0.4 % [facility] Lymphocytes Percent Auto 15.8(L) 20 - 40 % [facility] Monocytes Percent Auto 6.2 2 - 11 % [facility] Eosinophils Percent Auto 1.0 0 - 4 % [facility] Basophils Percent Auto 0.4 0 - 2 % [facility] NRBC Pct Auto 0.0 0.0 - 0.2 /100WBC [facility] Neutrophils Absolute Auto 10.7(H) 2.0 - 8.3 x10*3/uL [facility] Imm Gran Abs Auto 0.06(H) 0.00 - 0.03 X10*3/uL [facility] Lymphocytes Absolute Auto 2.2 1.2 - 4.9 X10*3/uL [facility] Monocytes Absolute Auto 0.9 0.1 - 1.2 X10*3/uL [facility] Eosinophils Absolute Auto 0.1 0.0 - 0.4 X10*3/uL [facility] Basophils Absolute Auto 0.1 0.0 - 0.2 X10*3/uL [facility] NRBC Abs Auto 0.000 0.0 - 0.012 X10*3/uL [facility] 11/27/2024 2:06 PM EST 11/27/2024 2:10 PM EST us Generic External Data Provider LAB BLOOD ORDERAB LES Final Result [facility] [address] [place] [phone] * Prothrombin Time-INR (11/27/2024 2:06 PM EST) Prothrombin Time 12.1 10.9 - 12.4 SEC [facility] INTERNATIONAL NORM RATIO 1.0 0.9 - 1.1 [facility] Comment:INTERNATIONAL NORMAL IZED RATIO (INR) REFERENCE RANGES Reference RangeFor patients not on anticoagulant therapy: 0.9 - 1.1INR ranges for oral anticoagulanttherapy:For prevention and treatment of venous thrombosis and pulmonary embolism: 2.0 - 3.0For acute myocardial infarction with aspirin therapy: 2.0 - 3.0For acute myocardial infarction without aspirin therapy: 3.0 - 4.0For patients with mechanical prosthetic heart valves: 2.5 - 3.5 11/27/2024 2:06 PM EST 11/27/2024 2:10 PM EST Generic External Data Provider LAB BLOOD ORDERAB LES Final Result Performing Organization Address [facility] de Phone Number [facility] [address] [place] [phone] * (ABNORMAL) B Type Natriuretic Peptide (BNP) (11/27/2024 2:06 PM EST) Pathologist [facility] B Type Natriuretic Peptide 171(H) <100 pg/mL [facility] Comment:For those patients w ho are being treated with Natrecor(nesiritide, recombinant BNP), BNP testing should beperformed at least two hours post treatment in order toensure that only endogenous levels of BNP are detected. 11/27/2024 2:06 PM EST 11/27/2024 2:10 PM EST Generic External Data Provider LAB BLOOD ORDERAB LES Final Result Performing Organization Address [facility] de Phone Number [facility] [address] [place] [phone] * XR Chest 2 Views (11/27/2024 1:35 PM EST) Anatomical Region Laterality Modality Chest Radiographic Mary ging 11/27/2024 1:35 PM EST Narrative 11/27/2024 1:37 PM EST ? [facility] ?[address] ?[place] [address] ?XRay Report ? Signed ? Patient: Reji,Ese ?MR#: [id number] ?? 8 ? : 1960 ?Acct:[id number] ? Age/Sex: 64 / F ?ADM Date: 11/27/24 ? Loc: HO.ED ? Attending Dr: ? Ordering Physician: Shakira Godinez ?? Date of Service: 11/27/24 ?? Procedure(s): XR chest 2V ?? Accession Number(s): [id number] ? cc: Shakira Godinez; Maranda Serna MD ? CLINICAL HISTORY: cough ? 2 view chest x-ray ? Comparison: CT - CHEST WITHOUT CONTRAST [id number] - 12/22/07 00:00 EST ? Findings: ?? The lungs are clear. ?? Heart size is normal. ?? No acute fracture. ? IMPRESSION: ?? 1. No acute findings. ? This document has been electronically signed by: Serina Nolan MD on ?? 11/27/2024 13:35:59 ? Dictated By: ?Serina Nolan MD ? Signed By: ?<Electronically signed by Serina Nolan MD in OV> ? 11/27/24 1337 ? DD/ 1335 ? TD/TT: 11/27/245 ? Bread Packer: ? Procedure Note Constantin Falcon - 11/27/[address] [address] XRay Report Signed Patient: Ese MendozaMR#: [id number] 8 : 1960Acct:[id number] Age/Sex: 64 / FADM Date: 11/27/24 Loc: HO.ED Attending Dr: Ordering Physician: Shakira Godinez Date of Service: 11/27/24 Procedure(s): XR chest 2V Accession Number(s): [id number] cc: Shakira Godinez; Maranda Serna MD CLINICAL HISTORY: cough 2 view chest x-ray Comparison: CT - CHEST WITHOUT CONTRAST [id number] - 12/22/07 00:00 EST Findings: The lungs are clear. Heart size is normal. No acute fracture. IMPRESSION: 1. No acute findings. This document has been electronically signed by: Serina Nolan MD on 11/27/2024 13:35:59 Dictated By: Serina Nolan MD Signed By: <Electronically signed by Serina Nolan MD in OV> 11/27/24 1337 DD/ 1335 TD/TT: 11/27/241334 Bread Packer: [facility] External Provider IMG XR PROCEDURES Edited Result - Final * SARS-CoV-2 RNA, Influenza A/B, and RSV RNA, Ql NAAT (11/27/2024 12:43 PM EST) Influenza A PCR NEGATIVE Negative [facility] Influenza B PCR NEGATIVE Negative [facility] Resp Syncy Virus RNA Qual PCR NEGATIVE Negative [facility] SARS COV2 PCR NEGATIVE Negative [facility] Comment:All test results mus t be correlated with clinical findings.Negative results do not preclude SARS-CoV2, influenza Avirus, influenza B virus and/or RSV infectionand should not be used as the sole basis for treatment orother patient management decisions. Negative results must becombined with clinical observations, patient history, andepidemiological information.This test has not been evaluated for monitoring treatment ofinfection.This test has been authorized by the FDA under an EmergencyUse Authorization (EUA) for use by authorized laboratories.Testing performed on the QWiPS GeneXpert utilizingreal-time RT-PCR.All SARS CoV2 and positive influenza A/B results arereported to [facility]. 11/27/2024 12:4 3 PM EST 11/27/2024 12:51 PM EST Generic External Data Provider LAB MICROBIOLOGY - GENERAL ORDERABLES Final Result [facility] [address] [place] [address] [phone] * (ABNORMAL) POCT glycosylated hemoglobin (Hgb A1c) (07/19/2024 2:39 PM EDT) Hemoglobin A1C 9.3(A) 4.0 - 6.0 % QC Media Lot # [id number] Lot# Expiration Date [id number] Blood Capillary blood specimen / Unknown 07/19/2024 2:39 PM EDT Maranda Serna MD POINT OF CARE TEST ENTER/EDIT OR DERABLES Final Result * BI Mammogram Screening Tomosynthesis Bilateral (02/10/2024 2:40 PM EDT) Anatomical Region Laterality Modality Breast Bilateral Mammography 02/10/2024 2:40 PM EDT Narrative 02/22/2024 3:43 PM EDT ? [facility] [place] ? [address] ?[place] [address] ? Mammography Report ? Signed ? Patient: Reji,Ese ?MR#: [id number] ?? 8 ? : 1960 ?Acct:[id number] ? Age/Sex: 63 / F ?ADM Date: //24 ? Loc: HO.MAMMO ? Attending Dr: Maranda Serna MD ? Ordering Physician: Maranda Serna MD ?Results: 1Negative ? Date of Service: //24 ?Follow Up: 1 Year From Orig ?? inal Mammogram ? Procedure(s): MM tomosynthesis screening BI ?? Accession Number(s): [id number] ? cc: Maranda Serna MD ? EXAMINATION: ?? MM SCREENING DIGITAL BREAST TOMOSYNTHESIS, BILATERAL ? CLINICAL INFORMATION: ? Screening. Asymptomatic. ? The patient is status post bilateral breast reduction. ? COMPARISON: ?? Mammography: This study is compared with prior exams dating back to ?? 2020. ? TECHNIQUE: ?? Digital breast tomosynthesis is performed in both the craniocaudal and ?? mediolateral oblique views along with computer-aided detection (CAD). ?? Synthesized 2D images are generated from the tomosynthesis. ? FINDINGS: ?? There are scattered areas of fibroglandular density (ACR BI-RADS breast ?? composition Category b). ? There are no significant masses, abnormal calcifications, or other ?? abnormalities. ? Post reduction changes are present. These include several, bilateral, ?? benign macrocalcifications healthcare sales representative of fat necrosis. ? MM/MM tomosynthesis screening BI ?? IMPRESSION: ?? No mammographic evidence of malignancy. ? ASSESSMENT: ? BI-RADS BI-RADS 1 - Negative ? RECOMMENDATION: ?? Routine annual mammography screening. ? 1 year F/U ? This examination should not preclude the clinical evaluation of a ?? suspicious palpable abnormality. ? This patient's information was entered into a reminder system with a ?? target due date for their next mammogram. ? Dictated By: ?Tianna Carney MD ? Signed By: ?<Electronically signed by Tianna Carney MD in OV> ? 02/22/24 1539 ? DD/ 1440 ? TD/TT: ? Bread Packer: ? Procedure Note Ezekiel, Constantin - 02/22/2024 [place] [facility] [address] [place], [place] [address] Mammography Report Signed Patient: Ese Mendoza#: [id number] 8 : 1960Acct:[id number] Age/Sex: 63 / FADM Date: 02/10/24 Loc: HO.MAMMO Attending Dr: Maranda Serna MD Ordering Physician: Maranda Serna MDResults: 1Negative Date of Service: 02/10/24Follow Up: 1 Year From Orig ina Mammogram Procedure(s): MM tomosynthesis screening BI Accession Number(s): [id number] cc: Maranda Serna MD EXAMINATION: MM SCREENING DIGITAL BREAST TOMOSYNTHESIS, BILATERAL CLINICAL INFORMATION: Screening. Asymptomatic. The patient is status post bilateral breast reduction. COMPARISON: Mammography: This study is compared with prior exams dating back to 2020. TECHNIQUE: Digital breast tomosynthesis is performed in both the craniocaudal and mediolateral oblique views along with computer-aided detection (CAD). Synthesized 2D images are generated from the tomosynthesis. FINDINGS: There are scattered areas of fibroglandular density (ACR BI-RADS breast composition Category b). There are no significant masses, abnormal calcifications, or other abnormalities. Post reduction changes are present. These include several, bilateral, benign macrocalcifications healthcare sales representative of fat necrosis. MM/MM tomosynthesis screening BI IMPRESSION: No mammographic evidence of malignancy. ASSESSMENT: BI-RADS BI-RADS 1 - Negative RECOMMENDATION: Routine annual mammography screening. 1 year F/U This examination should not preclude the clinical evaluation of a suspicious palpable abnormality. This patient's information was entered into a reminder system with a target due date for their next mammogram. Dictated By: Tianna Carney MD Signed By: <Electronically signed by Tianna Carney MD in OV> 02/22/24 1539 DD/ 1440 TD/TT: Bread Packer: Maranda Serna MD [facility] BI PROCEDURES Edited Result - Final * (ABNORMAL) Lipid Panel with Reflex to Direct LDL (12/30/2023 4:50 PM EST) Triglycerides 177(H) <150 mg/dL [facility] Comment:Desirable Triglyceri de: less than 150 mg/dLBorderline High Triglyceride 150-199 mg/dLHigh Triglyceride: 200-499 mg/dLVery High Triglyceride: greater than or equal to 5OO mg/dL Cholesterol 235(H) <200 mg/dL [facility] Comment:Desirable Cholestero l: less than 200 mg/dLBorderline High Cholesterol: 200-239 mg/dLHigh Cholesterol: greater than 239 mg/dL LDL Cholesterol Calculated 151(H) <100 mg/dL [facility] Comment:Desirable LDL: less than 100 mg/dLNear Optimal/Above Optimal LDL: 110- 129 mg/dLBorderline High LDL: 130-159 mg/dLHigh LDL: 160-189 mg/dLVery High LDL: greater than or equal to 190 mg/dL HDL Cholesterol 49 >40 mg/dL [facility] Comment:Desirable HDL: great er than 40 mg/dL Note: This HDL assay may give artificially low results in patients with liver disease. Blood 12/30/2023 4:50 PM EST 12/30/2023 5:26 PM EST Maranda Serna MD LAB BLOOD ORDERABLES Final Resul t [facility] [address] [place] [address] [phone] * (ABNORMAL) Colonoscopy (07/07/2022) Colonoscopy Abnormal(A ) Normal [facility] External Provider HEALTH MAINTENANCE Final Result from Last 3 Months or Most Recently Relevant to Health Maintenance Insurance [facility] STAND[facility] Care Teams Dental Laboratory Worker Relationship Specialty Start Date End Date Maranda Serna MD [address] [place] [address] PCP - General Family Medicine 08/01/21
--- OUTSIDE RECORDS SUMMARY | 2024-12-22 15:17 | XMS_ITS | Encounter Summary ---
Author Organization [facility] Address [address] [place] [address] Care Team Providers Care Web Production Assistant Name Role Phone Viet Sánchez Unavailable [phone] Viet Sánchez Primary Care Provider Encounter Details Date Type Department Care Team (Late st Contact Info) Description 05/22/2020 Scanned Document [facility] [address] [phone] Deja Rico, [place] [address] Social History Tobacco Use Types Packs/Day Years Used Date Smoking Tobacco: Former Smokeless Tobacco: Never Comments:quit approx 1979 Alcohol Use Standard Drinks/Week Comments No 0 [...] on file documented as of this encounter Procedures Procedure Name Priority Date/Time Associated Diagnosis Comments PATHOLOGY REPORT 05/22/2020 12:5 6 AM EDT documented in this encounter Results * (REPORT) PATHOLOGY REPORT (05/22/2020 12:56 AM EDT) Deja Rico DO PATHOLOGY/CYTOLOGY O RDERABLES documented in this encounter Visit Diagnoses Not on filedocumented in this encounter Care Teams Web Production Assistant Relationship Specialty Start Date End Date Viet Sánchez PA [address] [place] [address] PCP - General 06/18/18 Viet Sánchez PA [address] [place] [address] 06/18/18 documented as of this encounter
--- OUTSIDE RECORDS SUMMARY | 2024-12-22 15:17 | XMS_ITS | Encounter Summary ---
Author Organization [employer] Address [address] [facility] 7t [place] [address] Care Team Providers Care Keyboard Operator Name Role Phone Maranda Serna MD Primary Care Provider [phone] Reason for Visit * Reason Comments Transition Of Care (Tcm) HDF- unschedule d LVM Encounter Details Date Type Department Care Team ([facility] st Contact Info) Description 12/01/2024 Patient Outreach [facility] [address] [place], [place] [phone] Maranda Serna MD [address] [place] [address] Transition Of Care (Tcm) (HDF- unscheduled LVM ) Social History Tobacco Use Types Packs/Day Years [...] encounter Miscellaneous Notes * Significant Event - German Amaya - 12/01/2024 8:33 AM EST 12/01/24 0825 Hospital Discharges and Admission for [facility] Type of Visit Hospital Admission Date of Admission/Visit 11/27/24 Date of Discharge 11/30/24 [facility] Diagnosis NSTEMI (non-ST elevated myocardial infarction) Disposition Discharged Home Follow-Up Actions Follow-Up Needed Provider appointment Follow-Up Outcome Left Voicemail Initial Contact Date 12/01/24 CC German Lepe placed outbound call to patient for HDF outreach. CC placing call to offer patient with an HDF appointment with provider. No answer at this time. Patient's name and were not confirmed. CC left detailed message educating patient on importance of following up with provider following an inpatient admission. Provided contact information requesting a call back in order to schedule theHDF appointment. Patient educated via voicemail on extended clinic hours on Mondays and Wednesdays,and Walk-In Urgent Care Located in [facility]. Patient provided with after-hours line for [facility], , which offer night time triage service and option to transfer to environmental health and safety manager provider if needed. CC scanned discharge summary into patient's chart. CC will place additional outreach call within2-5 business days. documented in this encounter Plan of Treatment Upcoming Encounters Date Type Department Care Team (Late st Contact Info) Description 01/17/2025 11:00 AM EDT Office Visit [facility] [address] [place] [address] Maranda Serna MD [address] [place] [address] documented as of this encounter Visit Diagnoses Not on filedocumented in this encounter Additional Health Concerns Assessment Noted Time PHQ-9 Depression Total Score: 6 10/23/20 10:04 AM EST documented as of this encounter Care Teams Keyboard Operator Relationship Specialty Start Date End Date Maranda Serna MD [address] [place] [address] PCP - General Family Medicine 08/01/21 documented as of this encounter
--- OUTSIDE RECORDS SUMMARY | 2024-12-22 15:17 | XMS_ITS | Clinical Summary ---
Author Organization [facility] Address [address] [place] [address] Care Team Providers Care It Teacher Name Role Phone ChapispriscillaViet Primary Care Provider [phone] Allergies Active Allergy Reactions Criticality Noted Date Comments Pork 06/25/2018 Medications Medication Sig Dispensed Refills Start Date End Date Status metFORMIN (GLUCOPHAGE-XR) ER 24 hr tablet 500 mg 0 06/13/2018 Activ e Insulin Degludec (TRESIBA FLEXTOUCH) 200 UNIT/ML SOPN Tresiba FlexTouch U-200 insulin 200 unit/mL (3 mL) subcutaneous pen 0 Active insulin lispro (HUMALOG KWIKPEN) injection 100 units/mL Humalog KwikPen (U-100) Insulin 100 unit/mL subcutaneous 0 Active methotrexate 2.5 MG tablet 0 06/13/2018 Active raNITIdine (ZANTAC) 150 MG tablet ranitidine 150 mg tablet 0 Active folic acid (FOLVITE) tablet 1 mg folic acid 1 mg tablet 0 Active PROVENTIL HFA 108 (90 Base) MCG/ACT inhaler INHALE 1-2 PUFFS PO Q 4 H PRF WHEEZING 0 12/25/2018 Active cetirizine-pseudoep hedrine (ZyrTEC-D ALLERGY & CONGESTION) 5-120 MG per tablet 1 tablet as needed 0 10/01/2019 Act woody lisinopril (PRINIVIL,ZESTRIL) tablet 2.5 mg TK 1 T PO QD 0 10/01/2019 Active Active Problems Problem Noted Date Diagnosed Date Type 2 diabetes mellitus without complication Essential hypertension 11/09/2019 Pre-op evaluation 11/09/2019 RANJAN (obstructive sleep apnea) 11/09/2019 Nonrheumatic mitral valve regurgitation 11/09/20 19 Nonrheumatic tricuspid valve regurgitation 11/09 SOB (shortness of breath) 11/09/2019 Pulmonary hypertension 12/31/2018 Bilateral carotid artery stenosis 12/31/2018 Pulmonary artery hypertension 11/19/2018 Social History Tobacco Use Types Packs/Day Years Used Date Smoking Tobacco: Never Assessed Sex and Gender Information Value Date Recorded Sex Assigned at Not on file Gender Identity Not on file Sexual Orientation Not on file Last Filed Vital Signs Vital Sign Reading Time Taken Comments Blood Pressure 110/68 11/09/2019 1:07 PM EST Pulse 103 11/09/2019 1:07 PM EST Temperature - - Respiratory Rate - - Oxygen Saturation - - Inhaled Oxygen Concentration - - Weight 93.4 kg (206 lb) 11/09/2019 1:07 PM EST Height 157.5 cm (5' 2 ) 11/09/2019 1:07 PM EST Body Mass Index 37.68 11/09/2019 1:07 PM EST Plan of Treatment Health Maintenance Due Date Last Done Comments COVID-19 Vaccine (#1) 05/04/1961 Pneumococcal Vaccine (1 of 2 - PCV) 1966 Pneumococcal Vaccine (1 of 2 - PCV) 1966 Depression Screening 1972 BMI Counseling 1978 Diabetes: Eye Exam (No Retinopathy) 1978 Diabetes: Foot Exam 1978 Diabetes: Microalbumin Test 1978 Hemoglobin A1C Due 1978 Preventative Health Evaluation 1978 DTap / Tdap / Td (1 - Tdap) 1979 Cervical Cancer Screening (P ap Smear) 1981 Colon Cancer Screening (Colonoscopy) 2005 Breast Cancer Screening (Mammogram) 2010 Shingrix-Zoster Vaccine (1 of 2) 2010 RSV Adult > 60+ Yrs or Pregn ant (1 - Risk 60-74 years 1-dose series) 2020 Influenza Vaccine (#1) 2024 Hepatitis C Screening Completed 10/06/2018 Hepatitis B Vaccines Aged Out No long er eligible based on patient's age to complete this topic RSV Ped < 20 months Aged Out No longe r eligible based on patient's age to complete this topic Care Teams It Teacher Relationship Specialty Start Date End Date Viet Sánchez [address] [place] [address] PCP - General Medical Services 06/19/18
--- OUTSIDE RECORDS SUMMARY | 2024-12-22 15:17 | XMS_ITS | Encounter Summary ---
Author Organization [facility] Address [address] [place] [address] Care Team Providers Care Manager Care Management Name Role Phone Viet Sánchez Unavailable [phone] Viet Sánchez Primary Care Provider [phone] Encounter Details Date Type Department Care Team (Late st Contact Info) Description 08/06/2018 Scanned Document [facility] Urologic Surgery [place] [address] [facility] [address] [place] [address] Provider, MD Sheryl [address] [place] [address] Social History Tobacco Use Types Packs/Day Years [...] on filedocumented in this encounter Care Teams Manager Care Management Relationship Specialty Start Date End Date Viet Sánchez PA [address] [place] [address] PCP - General 06/18/18 Viet Sánchez PA [address] [place] [address] 06/18/18 documented as of this encounter
--- OUTSIDE RECORDS SUMMARY | 2024-12-22 15:17 | XMS_ITS | Encounter Summary ---
Author Organization [facility] Address [address] [place] [address] Care Team Providers Care Peripheral Equipment Operator Name Role Phone Viet Sánchez Unavailable [phone] Viet Sánchez Primary Care Provider [phone] Encounter Details Date Type Department Care Team (Late st Contact Info) Description 02/02/2020 Prep for Surgery OPHTHALMOLOGY [address] [place] [address] Holland uHnt MD [address] [facility] [address] [facility] [place] [phone] Social History Tobacco Use Types Packs/Day Years [...] on file Sexual Orientation Not on file COVID-19 Exposure Response Date Recorded In the last month, have you been in contact with someone who was confirmed or suspected to have Coronavirus / COVID-19? No / Unsure 02/03/2020 3:00 PM EDT documented as of this encounter Plan of Treatment Not on file documented as of this encounter Visit Diagnoses Not on filedocumented in this encounter Care Teams Peripheral Equipment Operator Relationship Specialty Start Date End Date Viet Sánchez PA [address] [place] [address] PCP - General 06/18/18 Viet Sánchez PA [address] [place] [address] 06/18/18 documented as of this encounter
--- OUTSIDE RECORDS SUMMARY | 2024-12-22 15:17 | XMS_ITS | Encounter Summary ---
Author Organization [employer] Address [address] [facility] 7t [place] [address] Care Team Providers Care Sponge Diver Name Role Phone Maranda Serna MD Primary Care Provider [phone] Reason for Visit * Reason Comments Transition Of Care (Tcm) HDF- Unschedule d second LVM Encounter Details Date Type Department Care Team ([facility] st Contact Info) Description 12/02/2024 Patient Outreach [facility] [address] [place], [place] [phone] Maranda Serna MD [address] [place], [place] [phone] Transition Of Care (Tcm) (HDF- Unscheduled second LVM) Social History Tobacco Use Types Packs/Day [...] * Significant Event - Delphine Laguerre - 12/02/2024 8:21 AM EST 12/02/24 0819 Hospital Discharges and Admission for [facility] Type of Visit Hospital Admission Date of Admission/Visit 11/30/24 Date of Discharge 12/01/24 Facility [facility] Diagnosis NSTEMI, initial episode of care,Acute bronchitis due to Rhinovirus, Chronic anemia, most likely secondary to iron deficiency Abnormal CT of the chest, Type 2 diabetes mellitus, Stage 3b chronic kidney disease Disposition Discharged Home Follow-Up Actions Follow-Up Needed Provider appointment Follow-Up Outcome Left Voicemail Initial Contact Date 12/02/24 RICARDO Akers placed second outbound call to patient for HDF outreach. CC placed second outreach call to offer patient [...] Wednesdays, and Walk-In Urgent Care Located in [facility]. Patient provided with after-hours line for [facility], , which offer night time triage service and option to transfer to project construction assistant manager provider if needed. CC will await return call from the patient. documented in this encounter Plan of Treatment Upcoming Encounters Date Type Department Care Team (Late st Contact Info) Description 01/17/2025 11:00 AM EDT Office Visit [facility] [address] [place] [address] Maranda Serna MD [address] [place] [address] documented as of this encounter Visit Diagnoses Not on filedocumented in this encounter Additional Health Concerns Assessment Noted Time PHQ-9 Depression Total Score: 6 10/23/20 22 10:04 AM EST documented as of this encounter Care Teams Sponge Diver Relationship Specialty Start Date End Date Maranda Serna MD [address] [place] [address] PCP - General Family Medicine 08/01/21 documented as of this encounter
--- OUTSIDE RECORDS SUMMARY | 2024-12-22 15:17 | XMS_ITS | Encounter Summary ---
Author Organization [employer] Address [address] [facility] 7t [place] [address] Care Team Providers Care Sap Bw Architect Name Role Phone Maranda Serna MD Primary Care Provider [phone] Encounter Details Date Type Department Care Team ([facility] st Contact Info) Description 04/22/2023 Orders Only [facility] [address] [place] [address] Maranda Senra MD [address] [place] [address] Left foot pain (Primary Dx); Type 2 diabetes mellitus with hyperglycemia, with long-term current use of insulin ([facility]) Social History Tobacco Use Types Packs/Day Years Used Date Smoking Tobacco: Former Cigarettes Q uit: 1976 Passive Smoke Exposure: Never Smokeless Tobacco: Never Alcohol Use Standard Drinks/Week Comments Never 0 (1 standard drink = 0.6 oz pur e alcohol) Depression Answer Date Recorded Patient Health Questionnaire-9 Score 6 10/23/2022 Depression Answer Date Recorded Patient Health Questionnaire-2 Score 0 10/23/2022 Comments Unknown Sex and Gender Information Value Date Recorded Sex Assigned at Female 09/09/2022 10:18 AM EDT Legal Sex Female 10:18 AM EDT Gender Identity Female 09/09/2022 10:18 AM EDT Sexual Orientation Choose not to disclose 2021 10:18 AM EDT COVID-19 Exposure Response Date Recorded In the last 10 days, have yo u been in contact with someone who was confirmed or suspected to have Coronavirus/COVID-19? No / Unsure 04/14/2023 1:17 PM EDT documented as of this encounter Plan of Treatment Upcoming Encounters Date Type Department Care Team (Late st Contact Info) Description 01/17/2025 11:00 AM EDT Office Visit [facility] [address] [place] [address] Maranda Serna MD [address] [place] [address] documented as of this encounter Visit Diagnoses Diagnosis Left foot pain- Primary Pain in soft tissues of limb Type 2 diabetes mellitus with hyperglycemia, with long-term current use of insulin ([facility]) documented in this encounter Additional Health Concerns Assessment Noted Time PHQ-9 Depression Total Score: 6 10/23/20 22 10:04 AM EST documented as of this encounter Care Teams Sap Bw Architect Relationship Specialty Start Date End Date Maranda Serna MD [address] [place] [address] PCP - General Family Medicine 08/01/21 documented as of this encounter
--- OUTSIDE RECORDS SUMMARY | 2024-12-22 15:17 | XMS_ITS | Encounter Summary ---
Author Organization [employer] Address [address] [facility] 7t [place] [address] Care Team Providers Care Medical And Health Services Manager Name Role Phone Maranda Serna MD Primary Care Provider [phone] Reason for Visit * Reason Comments Med Refill Encounter Details Date Type Department Care Team (Late st Contact Info) Description 11/19/2023 Refill [facility] [address] [place], [place] [phone] Yesica Naylor MD [address] [place] [address] Social History Tobacco Use Types Packs/Day Years Used Date Smoking Tobacco: Former Cigarettes Q uit: 1977 Passive Smoke Exposure: Never Smokeless Tobacco: Never [...] Description 01/17/2025 11:00 AM EDT Office Visit [facility] [address] [place] [address] Maranda Serna MD [address] [place] [address] documented as of this encounter Visit Diagnoses Not on filedocumented in this encounter Additional Health Concerns Assessment Noted Time PHQ-9 Depression Total Score: 6 10/23/20 22 10:04 AM EST documented as of this encounter Care Teams Medical And Health Services Manager Relationship Specialty Start Date End Date Maranda Serna MD [address] [place] [address] PCP - General Family Medicine 08/01/21 documented as of this encounter
--- OUTSIDE RECORDS SUMMARY | 2024-12-22 15:17 | XMS_ITS | Encounter Summary ---
Author Organization [employer] Address [address] [facility] [address] [place] [address] Care Team Providers Care Occasional Babysitter Name Role Phone Maranda Serna MD Primary Care Provider [phone] Reason for Visit * Reason Onset Date Comments Hospital Follow-up 12/07/2024 Encounter Details Date Type Department Care Team ([facility] Contact Info) Description 12/07/2024 Telephone [facility] [address] [place], [place] [phone] Maranda Serna MD [address] [place], [place] [phone] Hospital Follow-up Social History Tobacco Use Types Packs/Day Years [...] as of this encounter Miscellaneous Notes * Telephone Encounter - Grayson Broussard - 12/07/2024 12:28 PM EST Tc from pt returning call about hospital follow up. Pt requested a call back. [phone] (Pt Contact) documented in this encounter Plan of Treatment Upcoming Encounters Date Type Department Care Team (Late st Contact Info) Description 01/17/2025 11:00 AM EDT Office Visit [facility] [address] [place] [address] Maranda Serna MD [address] [place] [address] documented as of this encounter Visit Diagnoses Not on filedocumented in this encounter Additional Health Concerns Assessment Noted Time PHQ-9 Depression Total Score: 6 10/23/20 22 10:04 AM EST documented as of this encounter Care Teams Occasional Babysitter Relationship Specialty Start Date End Date Maranda Serna MD [address] [place] [address] PCP - General Family Medicine 08/01/21 documented as of this encounter
--- OUTSIDE RECORDS SUMMARY | 2024-12-22 15:17 | XMS_ITS | Clinical Summary ---
Author Organization [facility] Address [address] [place] [address] Care Team Providers Care Counter Pocket Trimmer Name Role Phone Viet Sánchez Unavailable [phone] Viet Sánchez Primary Care Provider [phone] Allergies Active Allergy Reactions Criticality Noted Date Comments Nickel Rash/Dermatitis Low 02/03/2020 Pork Allergy Hives Medium 06/25/2018 Medications Medication Sig Dispensed Refills Start Date End Date Status metFORMIN (GLUCOPHAGE-XR) 500 MG 24 hr tablet Take 500 mg by mouth 2 (two) times a day. 06/13/2018 Active methotrexate 2.5 MG tablet Take 15 mg by mouth once a week On Fridays06/13/2018 Active insulin lispro (HumaLOG) 100 units/mL injection Inject 14 Units under the skin 3 (three) times a day before meals. Active insulin degludec (TRESIBA FLEXTOUCH) 100 UNIT/ML pen injection Inject 90 Units under the skin nightly. Active albuterol (PROVENTIL HFA; VENTOLIN HFA) 108 (90 Base) MCG/ACT inhaler Inhale 1-2 puffs every 4 (four) hours as needed for wheezing. 1 Inhaler 12/25/2018 Active atorvastatin (LIPITOR) 20 MG tablet Take 20 mg by mouth daily. Active lisinopril (PRINIVIL,ZeSTRIL) 2.5 MG tablet Take 2.5 mg by mouth daily. Active B Complex Vitamins (VITAMIN B COMPLEX PO) Take 1 capsule by mouth daily. Active Cranberry (CRANBERRY CONCENTRATE) 500 MG Cap Take 1 tablet by mouth 2 (two) times a day. Active omega-3 fatty acids (FISH OIL) 1000 MG Cap capsule Take 1,000 mg by mouth daily. Active prednisoLONE acetate (PRED FORTE) 1 % ophthalmic suspension INSTILL 1 DROP IN OS QID UTD 11/01/2019 Active folic acid (FOLVITE) 1 MG tablet Take 1 mg by mouth daily. Active fluticasone-salmetero l (ADVAIR) 250-50 mcg/inh diskus inhaler Inhale 1 puff 2 (two) times a day as needed. 01/26/2019 Active cetirizine-pseudoephe drine (ZYRTEC-D ALLERGY & CONGESTION) 5-120 MG per tablet 1 tablet as needed 10/01/2019 Active aspirin enteric coated (ECOTRIN LOW STRENGTH) 81 MG EC tablet Take 81 mg by mouth daily. Active acetaminophen (TYLENOL) 325 MG tablet Take 650 mg by mouth 4 times daily (every 6 hours) as needed. Active polyethylene glycol-electrolytes (PLENVU) 140 g solutionIndications:S creening for malignant neoplasm of colon Take as directed. 1 box 02/18/2020 Active PANTOprazole (PROTONIX) 40 MG EC tabletIndications:Gas troesophageal reflux disease without esophagitis Take 1 tablet (40 mg total) by mouth every morning before breakfast. 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 Mendoza today for evaluation of her uncontrolled insulin requiring type 2 diabetes. She presents today to this visit in the company of her daughter Carlo. She reports that she was diagnosed with type 2 diabetes in 1996 and her diabetes is complicated by retinopathy and polyneuropathy. She is currently on a basal bolus regimen of daily Tresiba 90 units and Humalog 14 units at mealtime. She is inconsistent with blood glucose monitoring and has only tested 11 times in this past 30 days. No discernible pattern on her BG meter log. I have asked her to increase her blood glucose monitoring to before meals and at bedtime and return in 1 month to meet with diabetes nurse for meter upload and review as well as for diabetes education. Her A1c in office today 9.2% This is reviewed with patient as it relates to increase risk of microvascular and macrovascular complications from his disease. We discussed the consequences of prolonged hyperglycemia including retinopathy, nephropathy, neuropathy, myocardial infarction and stroke. There are no labs available at the time of this visit and I have asked her to update labs today which will include a urine for microalbumin. She is not currently on LEIDY inhibitor or arb. She appears to be overdue for eye exam and reports that she has made an appointment for July 2019. I am concerned with a history of retinopathy that she should have an earlier appointment and I have offered to refer her to our ophthalmology department. She declines a referral today but agrees to call me back if she is unable to move up the appointment that she currently has in July. She reports that she is highly intolerant to GLP-1-RA and with her history of chronic UTI SGL T-2 inhibitors are not going to be an option. For now we will try to optimize her insulin regimen and continue on metformin as is. I will see her for follow-up in 3 months in the interim I have asked her to return in approximately 4 weeks to meet with diabetes education team. She was counseled on how to properly Treat a low blood sugar (below 70) with a simple carbohydrate like 4 ounces of juice or 3-4 glucose tablets. Repeat a blood sugar 15 minutes after treating and once above 70 consume a small meal. Carry with you a form of simple carbohydrate always. Notify this office if you have any readings below 70 as it may indicate a need for medication adjustment. Chronic cough 01/26/2019 Moderate persistent asthma with acute exacerbati on 01/26/2019 Family History Medical History Relation Name Comments Heart attack Father Diabetes type II Mother Heart murmur Mother Pacemaker Mother Relation Name Status Comments Father Mother [...] Sign Reading Time Taken Comments Blood Pressure 130/71 02/07/2020 2:00 PM EDT Pulse 100 02/07/2020 2:00 PM EDT Temperature 36.9 ??C (98.5 ??F) 02/07/2020 12:50 PM E DT Respiratory Rate 14 02/07/2020 12:50 PM EDT Oxygen Saturation 96% 02/07/2020 2:00 PM EDT Inhaled Oxygen Concentration - - Weight 90.7 kg (200 lb) 11/22/2019 11:01 AM EST Height 158.8 cm (5' 2.5 ) 11/22/2019 11:01 AM ES T Body Mass Index 36 11/22/2019 11:01 AM EST Plan of Treatment Health Maintenance Due Date Last Done Comments Hepatitis C Virus Screening 1960 COVID-19 Vaccine (#1) 1965 Foot Exam 1970 Hemoglobin A1C 1970 Lipid Panel 1970 Ophthalmology Exam 1970 DTaP/Tdap/Td Vaccines (1 - Tdap) 1979 Pneumococcal Vaccines 50+ (1 of 2 - PCV) 1979 Zoster (Shingles) Vaccine (1 of 2) 1979 Pap Smear (Ages 21-65) 1981 Mammogram 2000 Creatinine with GFR 12/24/2019 12/24/2018 Microalbumin/Creatinine Rati o Urine 02/10/2020 02/09/2019 RSV Vaccine 60 years and old er and Patients (1 - Risk 60-74 years 1-dose series) 2020 Influenza Vaccine 06/10/2024 Colonoscopy 05/19/2030 05/19/2020 HIV Screening Completed 10/06/2018 Hepatitis B Vaccines Aged Out No long er eligible based on patient's age to complete this topic Medical Devices Implanted Type Area Senior Receptionist Device Identifier Shelf Expiration Date Model / Serial / Lot [id number] Lens Iol 0 D +21.5 Brianda Mod L Bcnvx 13mm 6mm Posterior - [id number] Implanted:Qty: 1 on 01/27/2020 by Obinna Lorenzana MD at [facility] [employer] [id number] / [id number] / Procedures Procedure Name Priority Date/Time Associated Diagnosis Comments COLON/EGD (CC) Routine 05/19/2020 COMPREHENSIVE METABOLIC PANEL STAT 12/24/2018 10:09 PM EST from Last 3 Months or Most Recently Relevant to Health Maintenance Results * COLON/EGD (CC) (05/19/2020) Deja Rico DO AMB ORDERABLE PERFOR DONAL * (ABNORMAL) Comprehensive Metabolic Panel (12/24/2018 10:09 PM EST) Glucose 181(H) 65 - 99 mg/dL [facility] Comment:Fasting: <100 mg/dL, Non-Fasting: <200 mg/dL (ADA 2005) Blood Urea Nitrogen (BUN) 20 8 - 21 mg/dL [facility] Creatinine 1.2(H) 0.4 - 1.1 mg/dL [facility] eGFR 46(L) >59 [facility] Comment:MDRD in mL/min/1.73 sq meters. GFR - 56(L) >59 [facility] Comment:MDRD in mL/min/1.73 sq meters. Sodium 143 136 - 145 mmol/L [facility] Potassium 4.9 3.4 - 5.3 mmol/L [facility] Comment:Slight hemolysis Chloride 104 98 - 107 mmol/L [facility] CO2 26 22 - 33 mmol/L [facility] Calcium 9.7 8.7 - 10.5 mg/dL [facility] Alkaline Phosphatase 101 32 - 122 U/L [facility] Comment:Slight hemolysis Aspartate Aminotrans (AST) 28 10 - 50 U/L [facility] Comment:Slight hemolysis Alanine Aminotrans (ALT) 10 10 - 50 U/L [facility] Bilirubin, Total <0.2(L) 0.2 - 1.0 mg/dL [facility] Protein, Total 7.2 6.3 - 8.3 g/dL [facility] Albumin 4.3 3.5 - 5.0 g/dL [facility] BUN/Creatinine Ratio 17 10.0 - 25.0 Ratio [facility] Globulin 2.9 1.5 - 3.9 g/dL [facility] Albumin/Globulin Ratio 1.5 1.0 - 3.0 Ratio [facility] Anion Gap 13 7 - 17 [facility] Blood specimen (specimen) Blood specimen / Unknown 12/24/2018 10:09 PM EST 12/24/2018 10:32 PM EST [facility] BLOOD ORDERABLES [facility] from Last 3 Months or Most Recently Relevant to Health Maintenance Advance Directives * Full Code (Latest Code Status on File) Date Activated Date Inactivated Comments 02/07/2020 9:28 AM * Full Code Date Activated Date Inactivated Comments 11/11/2019 12:01 PM 01/27/2020 12:06 PM Care Teams Counter Pocket Trimmer Relationship Specialty Start Date End Date Viet Sánchez PA [address] [place] [address] PCP - General 06/18/18 Viet Sánchez PA [address] [place] [address] 06/18/18
--- OUTSIDE RECORDS SUMMARY | 2024-12-22 15:17 | XMS_ITS | Data Portability ---
Author Organization MARCOS - Clarence Sen MD, [facility]- Address [address] [place] [id number] Assessment No assessment recorded. Plan of Treatment Reminders Order Date Submit Date Provider Last Modified By Organization Details Last Modified Time Details Appointments None recorded. Lab urinalysis, complete 2016 017 [email or web address] In-House Results, For Internal Use Only, Do Not Delete/merge, [id number] 7 14:28:33 urinalysis, complete 2016 017 [email or web address] In-House Results, For Internal Use Only, Do Not Delete/merge, [id number] 7 14:28:33 urinalysis, complete 2016 017 [email or web address] In-House Results, For Internal Use Only, Do Not Delete/merge, [id number] 7 13:16:50 urinalysis, complete 2016 017 [email or web address] In-House Results, For Internal Use Only, Do Not Delete/merge, [id number] 7 13:16:50 urinalysis, complete 2016 017 [email or web address] In-House Results, For Internal Use Only, Do Not Delete/merge, [id number] 7 11:38:12 urinalysis, complete 2016 017 [email or web address] In-House Results, For Internal Use Only, Do Not Delete/merge, [id number] 7 11:38:12 Referral None recorded. Procedures None recorded. Surgeries None recorded. Imaging US, retroperito neum 2016 017 [email or web address] In-House Results, For Internal Use Only, Do Not Delete/merge, [id number] 7 14:28:33 Medication Orders None recorded. Patient TargetsNo targets recorded. Patient Instructions Encounter Date Encounter Id Patient Instructions Last Modified By Organization Details Last Modified Time 05/06/2017 [id number] Urinary Tract Infection (UTI) in Women: Care Instructions [email or web address] Not available 05/09/2017 14:28:33 bladder training : care instructions [email or web address] Not available 05/09/2017 14:28:33 kegel exercises: care instructions tmcclung Not available 05/09/2017 14:28:33 Stress Incontinence: Care Instructions [email or web address] Not available 05/09/2017 14:28:33 Urge Incontinence: Care Instructions [email or web address] Not available 05/09/2017 14:28:33 07/30/2017 [id number] Urinary Tract Infection (UTI) in Women: Care Instructions [email or web address] Not available 08/04/2017 13:16:50 bladder training : care instructions tmcclung Not available 08/04/2017 13:16:50 kegel exercises: care instructions tmcclung Not available 08/04/2017 13:16:50 Stress Incontinence: Care Instructions [email or web address] Not available 08/04/2017 13:16:50 Urge Incontinence: Care Instructions [email or web address] Not available 08/04/2017 13:16:50 09/29/2017 [id number] Urinary Tract Infection (UTI) in Women: Care Instructions [email or web address] Not available 10/01/2017 12:43:07 Reason for Referral None Reported. Results Created Date Observation Date Name Description Value Unit Range Abnormal Flag Note LastModifiedBy Organization Detail LastModifiedTime 09/29/20 17 09/29/2017 urina lysis , compl ete Leukocytes Negati ve Not Available In-House Results For Internal Use Only, Do Not Delete/merge, [id number] 09/29/2017 18:46:44 09/29/20 17 09/29/2017 urina lysis , compl ete Nitrite negati ve Not Available In-House Results For Internal Use Only, Do Not Delete/merge, [id number] 09/29/2017 18:46:44 09/29/20 17 09/29/2017 urina lysis , compl ete Urobilinogen 0.2 mg/dL Not Available In-House Results For Internal Use Only, Do Not Delete/merge, 09/29/2017 18:46:44 09/29/20 17 09/29/2017 urina lysis , compl ete Protein Negati ve Not Available In-House Results For Internal Use Only, Do Not Delete/merge, 09/29/2017 18:46:44 09/29/20 17 09/29/2017 urina lysis , compl ete pH 6.0 Not Available In-House Results For Internal Use Only, Do Not Delete/merge, 09/29/2017 18:46:44 09/29/20 17 09/29/2017 urina lysis , compl ete Blood Negati ve Not Available In-House Results For Internal Use Only, Do Not Delete/merge, 09/29/2017 18:46:44 09/29/20 17 09/29/2017 urina lysis , compl ete Specific Zavalla 1.020 Not Available In-Louise se Results For Internal Use Only, Do Not Delete/merge, 09/29/2017 18:46:44 09/29/20 17 09/29/2017 urina lysis , compl ete Ketone Negati ve Not Available In-House Results For Internal Use Only, Do Not Delete/merge, 09/29/2017 18:46:44 09/29/20 17 09/29/2017 urina lysis , compl ete Bilirubin Negati ve Not Available In-House Results For Internal Use Only, Do Not Delete/merge, 09/29/2017 18:46:44 09/29/20 17 09/29/2017 urina lysis , compl ete Glucose Negati ve Not Available In-House Results For Internal Use Only, Do Not Delete/merge, 09/29/2017 18:46:44 09/29/20 17 09/29/2017 urina lysis , compl ete WBC/HPF 4-8 Not Available In-House Results For Internal Use Only, Do Not Delete/merge, 09/29/2017 18:46:44 09/29/20 17 09/29/2017 urina lysis , compl ete RBC/HPF - Not Available In-House Results For Internal Use Only, Do Not Delete/merge, 09/29/2017 18:46:44 09/29/20 17 09/29/2017 urina lysis , compl ete Epith/HPF - Not Available In-House Results For Internal Use Only, Do Not Delete/merge, 09/29/2017 18:46:44 09/29/20 17 09/29/2017 urina lysis , compl ete Other 1+ bacter ia Not Available In-House Results For Internal Use Only, Do Not Delete/merge, 09/29/2017 18:46:44 09/29/20 17 09/29/2017 urina lysis , compl ete Leukocytes Negati ve Not Available In-House Results For Internal Use Only, Do Not Delete/merge, 09/29/2017 17:42:04 09/29/20 17 09/29/2017 urina lysis , compl ete Nitrite negati ve Not Available In-House Results For Internal Use Only, Do Not Delete/merge, 09/29/2017 17:42:04 09/29/20 17 09/29/2017 urina lysis , compl ete Urobilinogen 0.2 mg/dL Not Available In-House Results For Internal Use Only, Do Not Delete/merge, 09/29/2017 17:42:04 09/29/20 17 09/29/2017 urina lysis , compl ete Protein Negati ve Not Available In-House Results For Internal Use Only, Do Not Delete/merge, 09/29/2017 17:42:04 09/29/20 17 09/29/2017 urina lysis , compl ete pH 5.5 Not Available In-House Results For Internal Use Only, Do Not Delete/merge, 09/29/2017 17:42:04 09/29/20 17 09/29/2017 urina lysis , compl ete Blood Negati ve Not Available In-House Results For Internal Use Only, Do Not Delete/merge, 09/29/2017 17:42:04 09/29/20 17 09/29/2017 urina lysis , compl ete Specific Zavalla 1.025 Not Available In-[facility] se Results For Internal Use Only, Do Not Delete/merge, 09/29/2017 17:42:04 09/29/20 17 09/29/2017 urina lysis , compl ete Ketone Negati ve Not Available In-House Results For Internal Use Only, Do Not Delete/merge, 09/29/2017 17:42:04 09/29/20 17 09/29/2017 urina lysis , compl ete Bilirubin Negati ve Not Available In-House Results For Internal Use Only, Do Not Delete/merge, 09/29/2017 17:42:04 09/29/20 17 09/29/2017 urina lysis , compl ete Glucose Negati ve Not Available In-House Results For Internal Use Only, Do Not Delete/merge, 09/29/2017 17:42:04 09/29/20 17 09/29/2017 urina lysis , compl ete WBC/HPF 30-40 Not Available In-House Results For Internal Use Only, Do Not Delete/merge, 09/29/2017 17:42:04 09/29/20 17 09/29/2017 urina lysis , compl ete RBC/HPF - Not Available In-House Results For Internal Use Only, Do Not Delete/merge, 09/29/2017 17:42:04 09/29/20 17 09/29/2017 urina lysis , compl ete Epith/HPF 12-16 Not Available In-House Results For Internal Use Only, Do Not Delete/merge, 09/29/2017 17:42:04 09/29/20 17 09/29/2017 urina lysis , compl ete Other 2+ bacter ia Not Available In-House Results For Internal Use Only, Do Not Delete/merge, 09/29/2017 17:42:04 07/30/20 17 07/30/2017 urina lysis , compl ete Leukocytes Negati ve Not Available In-House Results For Internal Use Only, Do Not Delete/merge, 07/30/2017 17:04:00 07/30/20 17 07/30/2017 urina lysis , compl ete Nitrite negati ve Not Available In-House Results For Internal Use Only, Do Not Delete/merge, 07/30/2017 17:04:00 07/30/20 17 07/30/2017 urina lysis , compl ete Urobilinogen 0.2 mg/dL Not Available In-House Results For Internal Use Only, Do Not Delete/merge, 07/30/2017 17:04:00 07/30/20 17 07/30/2017 urina lysis , compl ete Protein Negati ve Not Available In-House Results For Internal Use Only, Do Not Delete/merge, 07/30/2017 17:04:00 07/30/20 17 07/30/2017 urina lysis , compl ete pH 6.0 Not Available In-House Results For Internal Use Only, Do Not Delete/merge, 07/30/2017 17:04:00 07/30/20 17 07/30/2017 urina lysis , compl ete Blood Negati ve Not Available In-House Results For Internal Use Only, Do Not Delete/merge, 07/30/2017 17:04:00 07/30/20 17 07/30/2017 urina lysis , compl ete Specific Zavalla 1.020 Not Available In-[facility] se Results For Internal Use Only, Do Not Delete/merge, 07/30/2017 17:04:00 07/30/20 17 07/30/2017 urina lysis , compl ete Ketone Negati ve Not Available In-House Results For Internal Use Only, Do Not Delete/merge, 07/30/2017 17:04:00 07/30/20 17 07/30/2017 urina lysis , compl ete Bilirubin Negati ve Not Available In-House Results For Internal Use Only, Do Not Delete/merge, 07/30/2017 17:04:00 07/30/20 17 07/30/2017 urina lysis , compl ete Glucose Negati ve Not Available In-House Results For Internal Use Only, Do Not Delete/merge, 07/30/2017 17:04:00 07/30/20 17 07/30/2017 urina lysis , compl ete WBC/HPF 1-3 Not Available In-House Results For Internal Use Only, Do Not Delete/merge, 07/30/2017 17:04:00 07/30/20 17 07/30/2017 urina lysis , compl ete RBC/HPF - Not Available In-House Results For Internal Use Only, Do Not Delete/merge, 07/30/2017 17:04:00 07/30/20 17 07/30/2017 urina lysis , compl ete Epith/HPF 2-5 Not Available In-House Results For Internal Use Only, Do Not Delete/merge, 07/30/2017 17:04:00 07/30/20 17 07/30/2017 urina lysis , compl ete Leukocytes 15 Tara/? ? ?L Not Available In-House Results For Internal Use Only, Do Not Delete/merge, 07/30/2017 14:16:20 07/30/20 17 07/30/2017 urina lysis , compl ete Nitrite positi ve Not Available In-House Results For Internal Use Only, Do Not Delete/merge, 07/30/2017 14:16:20 07/30/20 17 07/30/2017 urina lysis , compl ete Urobilinogen 0.2 mg/dL Not Available In-House Results For Internal Use Only, Do Not Delete/merge, 07/30/2017 14:16:20 07/30/20 17 07/30/2017 urina lysis , compl ete Protein Negati ve Not Available In-House Results For Internal Use Only, Do Not Delete/merge, 07/30/2017 14:16:20 07/30/20 17 07/30/2017 urina lysis , compl ete pH 5.5 Not Available In-House Results For Internal Use Only, Do Not Delete/merge, 07/30/2017 14:16:20 07/30/20 17 07/30/2017 urina lysis , compl ete Blood Negati ve Not Available In-House Results For Internal Use Only, Do Not Delete/merge, 07/30/2017 14:16:20 07/30/20 17 07/30/2017 urina lysis , compl ete Specific Zavalla 1.030 Not Available In-[facility] se Results For Internal Use Only, Do Not Delete/merge, 07/30/2017 14:16:20 07/30/20 17 07/30/2017 urina lysis , compl ete Ketone Negati ve Not Available In-House Results For Internal Use Only, Do Not Delete/merge, 07/30/2017 14:16:20 07/30/20 17 07/30/2017 urina lysis , compl ete Bilirubin Negati ve Not Available In-House Results For Internal Use Only, Do Not Delete/merge, 07/30/2017 14:16:20 07/30/20 17 07/30/2017 urina lysis , compl ete Glucose Negati ve Not Available In-House Results For Internal Use Only, Do Not Delete/merge, 07/30/2017 14:16:20 07/30/20 17 07/30/2017 urina lysis , compl ete WBC/HPF 15-25 Not Available In-House Results For Internal Use Only, Do Not Delete/merge, 07/30/2017 14:16:20 07/30/20 17 07/30/2017 urina lysis , compl ete RBC/HPF - Not Available In-House Results For Internal Use Only, Do Not Delete/merge, 07/30/2017 14:16:20 07/30/20 17 07/30/2017 urina lysis , compl ete Epith/HPF 4-6 Not Available In-House Results For Internal Use Only, Do Not Delete/merge, 07/30/2017 14:16:20 07/30/20 17 07/30/2017 urina lysis , compl ete Other 1+ bacter ia Not Available In-House Results For Internal Use Only, Do Not Delete/merge, 07/30/2017 14:16:20 05/06/20 17 05/06/2017 urina lysis , compl ete Leukocytes Negati ve Not Available In-House Results For Internal Use Only, Do Not Delete/merge, 05/06/2017 16:35:38 05/06/20 17 05/06/2017 urina lysis , compl ete Nitrite negati ve Not Available In-House Results For Internal Use Only, Do Not Delete/merge, 05/06/2017 16:35:38 05/06/20 17 05/06/2017 urina lysis , compl ete Urobilinogen 0.2 mg/dL Not Available In-House Results For Internal Use Only, Do Not Delete/merge, 05/06/2017 16:35:38 05/06/20 17 05/06/2017 urina lysis , compl ete Protein Negati ve Not Available In-House Results For Internal Use Only, Do Not Delete/merge, 05/06/2017 16:35:38 05/06/20 17 05/06/2017 urina lysis , compl ete pH 6.0 Not Available In-House Results For Internal Use Only, Do Not Delete/merge, 05/06/2017 16:35:38 05/06/20 17 05/06/2017 urina lysis , compl ete Blood Negati ve Not Available In-House Results For Internal Use Only, Do Not Delete/merge, 05/06/2017 16:35:38 05/06/20 17 05/06/2017 urina lysis , compl ete Specific Zavalla 1.015 Not Available In-[facility] se Results For Internal Use Only, Do Not Delete/merge, 05/06/2017 16:35:38 05/06/20 17 05/06/2017 urina lysis , compl ete Ketone Negati ve Not Available In-House Results For Internal Use Only, Do Not Delete/merge, 05/06/2017 16:35:38 05/06/20 17 05/06/2017 urina lysis , compl ete Bilirubin Negati ve Not Available In-House Results For Internal Use Only, Do Not Delete/merge, 05/06/2017 16:35:38 05/06/20 17 05/06/2017 urina lysis , compl ete Glucose Negati ve Not Available In-House Results For Internal Use Only, Do Not Delete/merge, 05/06/2017 16:35:38 05/06/20 17 05/06/2017 urina lysis , compl ete WBC/HPF 4-8 Not Available In-House Results For Internal Use Only, Do Not Delete/merge, 05/06/2017 16:35:38 05/06/20 17 05/06/2017 urina lysis , compl ete RBC/HPF - Not Available In-House Results For Internal Use Only, Do Not Delete/merge, 05/06/2017 16:35:38 05/06/20 17 05/06/2017 urina lysis , compl ete Epith/HPF 2-5 Not Available In-House Results For Internal Use Only, Do Not Delete/merge, 05/06/2017 16:35:38 05/06/20 17 05/06/2017 US, retro perit oneum Void Volume positi ve Not Available In-House Results For Internal Use Only, Do Not Delete/merge, 05/06/2017 14:41:45 05/06/20 17 05/06/2017 US, retro perit oneum Result 313mL Not Available In-House Results For Internal Use Only, Do Not Delete/merge, 05/06/2017 14:41:45 05/06/20 17 05/06/2017 urina lysis , compl ete Leukocytes 70 Tara/? ? ?L Not Available In-House Results For Internal Use Only, Do Not Delete/merge, 05/06/2017 14:41:45 05/06/20 17 05/06/2017 urina lysis , compl ete Nitrite negati ve Not Available In-House Results For Internal Use Only, Do Not Delete/merge, 05/06/2017 14:41:45 05/06/20 17 05/06/2017 urina lysis , compl ete Urobilinogen 0.2 mg/dL Not Available In-House Results For Internal Use Only, Do Not Delete/merge, 05/06/2017 14:41:45 05/06/20 17 05/06/2017 urina lysis , compl ete Protein Negati ve Not Available In-House Results For Internal Use Only, Do Not Delete/merge, 05/06/2017 14:41:45 05/06/20 17 05/06/2017 urina lysis , compl ete pH 5.5 Not Available In-House Results For Internal Use Only, Do Not Delete/merge, 05/06/2017 14:41:45 05/06/20 17 05/06/2017 urina lysis , compl ete Blood Negati ve Not Available In-House Results For Internal Use Only, Do Not Delete/merge, 05/06/2017 14:41:45 05/06/20 17 05/06/2017 urina lysis , compl ete Specific Zavalla 1.025 Not Available In-[facility] se Results For Internal Use Only, Do Not Delete/merge, 05/06/2017 14:41:45 05/06/20 17 05/06/2017 urina lysis , compl ete Ketone Negati ve Not Available In-House Results For Internal Use Only, Do Not Delete/merge, 05/06/2017 14:41:45 05/06/20 17 05/06/2017 urina lysis , compl ete Bilirubin Negati ve Not Available In-House Results For Internal Use Only, Do Not Delete/merge, 05/06/2017 14:41:45 05/06/20 17 05/06/2017 urina lysis , compl ete Glucose Negati ve Not Available In-House Results For Internal Use Only, Do Not Delete/merge, 05/06/2017 14:41:45 05/06/20 17 05/06/2017 urina lysis , compl ete WBC/HPF 16-25 Not Available In-House Results For Internal Use Only, Do Not Delete/merge, 05/06/2017 14:41:45 05/06/20 17 05/06/2017 urina lysis , compl ete RBC/HPF - Not Available In-House Results For Internal Use Only, Do Not Delete/merge, 05/06/2017 14:41:45 05/06/20 17 05/06/2017 urina lysis , compl ete Epith/HPF 4-8 Not Available In-House Results For Internal Use Only, Do Not Delete/merge, 05/06/2017 14:41:45 05/06/20 17 05/06/2017 urina lysis , compl ete Other 4+ bacter ia Not Available In-House Results For Internal Use Only, Do Not Delete/merge, 05/06/2017 14:41:45 05/06/20 17 05/08/2017 cultu re, urine urine culture, routine FINAL REPORT abnormal Not Available [facility] ([facility]) [address] [place], [address], 05/08/2017 16:19:18 05/06/2005/08/2017 cultu re, urine result 1 KLEBSI MONICA PNEUMO NIAE abnormal GREAT ER THAN 100,0 00 COLON Y FORMI NG UNITS PER ML Not Available [facility] ([facility]) [address] [facility], [place], [address], 05/08/2017 16:19:18 05/06/20 17 05/08/2017 cultu re, urine antimicrobia l susceptibili ty COMMEN T S = SUSCE PTIBL E; I = INTER MEDIA TE; R = RESIS TANT P = POSIT WOODY; N = NEGAT WOODY MICS ARE EXPRE SSED IN MICRO GRAMS PER ML ANTIB IOTIC RSLT# 1 RSLT# 2 RSLT# 3 RSLT# 4 AMOXI CILLI N/CLA VULAN IC ACID S AMPIC ILLIN R CEFEP RUKHSANA S CEFTR IAXON E S CEFUR OXIME S CEPHA LOTHI N S CIPRO FLOXA HUA S ERTAP ENEM S GENTA MICIN S IMIPE NEM S LEVOF LOXAC IN S NITRO FURAN TOIN S PIPER ACILL IN S TETRA CYCLI NE S TOBRA MYCIN S TRIME THOPR IM/ANDRADE LFA S Not Available [facility] ([facility]) [address] [place], [address], 05/08/2017 16:19:18 07/30/20 17 08/01/2017 cultu re, urine urine culture, routine FINAL REPORT abnormal Not Available [facility] ([facility]) [address] [place], [address], 08/01/2017 16:22:57 07/30/20 17 08/01/2017 cultu re, urine result 1 KLEBSI MONICA PNEUMO NIAE abnormal Great er than 100,0 00 colon y formi ng units per mL Not Available [facility] ([facility]) [address] [place], [address], 08/01/2017 16:22:57 07/30/20 17 08/01/2017 cultu re, urine antimicrobia l susceptibili ty COMMEN T S = Susce ptibl e; I = Inter media te; R = Resis tant P = Posit woody; N = Negat woody MICS are expre ssed in micro grams per mL Antib iotic RSLT# 1 RSLT# 2 RSLT# 3 RSLT# 4 Amoxi cilli n/Cla vulan ic Acid S Ampic illin R Cefep rukhsana S Ceftr iaxon e S Cefur oxime S Cepha lothi n S Cipro floxa hua S Ertap enem S Genta micin S Imipe nem S Levof loxac in S Nitro furan toin S Piper acill in S Tetra cycli ne S Tobra mycin S Trime thopr im/Andrade lfa S Not Available [facility] ([facility]) [address], [place], [address], 08/01/2017 16:22:57 05/15/20 17 05/15/2017 US, renal No observ ation record ed. [email or web address] [facility] [address] [facility], [place], [address], 07/30/2017 17:43:40 07/30/20 17 05/15/2017 US, retro perit oneum No observ ation record ed. [email or web address] Not Available 2016 11:33:32 07/30/20 17 05/15/2017 XR, kidne y + urete r + bladd er No observ ation record ed. [email or web address] Not Available 2016 11:33:32 Result Notes None recorded. Procedures Surgical History Date Name Laterality Status Provider Name and Address Organization Details Recorded Time 2 Other completed Ashley Sen MD 05/06/2017 16:45:14 Breast Surgery completed Ashley Sen MD 05/06/2017 16:45:34 Imaging Results Imaging Date Name Status LastModified by Organization Details LastModified Time 05/15/2017 US, renal completed [email or web address] [facility] [address] [facility], [place], [address], 07/30/2017 17:43:40 05/15/2017 US, retroperitoneum completed [facility] Infor mation not available 09/30/2017 11:33:32 05/15/2017 XR, kidney + ureter + bladder completed [facility] Information not available 09/30/2017 11:33:32 Procedure Notes None recorded. Medical Equipment None Reported. Allergies No known drug allergies Medications Name Sig Start Date Stop Date Status Note LastModified by Organization Details LastModified Time fluconazole 150 mg tablet active Not Available Not Availabl e Not Available ciprofloxacin 500 mg tablet active Not Available Not Availabl e Not Available sulfamethoxaz ole 800 mg-trimethopr im 160 mg tablet active Not Available Not Available Not Available omeprazole 40 mg capsule,delay ed release active Not Available Not Available N ot Available meloxicam 7.5 mg tablet active Not Available Not Available No t Available methotrexate sodium 2.5 mg tablet active Not Available Not Available Not Available dicyclomine 20 mg tablet active Not Available Not Available Not Available OneTouch Ultra Test strips active Not Available Not Available Not Available ranitidine 150 mg tablet active Not Available Not Availabl e Not Available promethazine 25 mg tablet active Not Available Not Available Not Available folic acid 1 mg tablet active Not Available Not Available No t Available pravastatin 20 mg tablet active Not Available Not Available Not Available metoprolol succinate ER 25 mg tablet,extend ed release 24 hr active Not Available Not Available Not Available oxybutynin chloride 5 mg tablet one twice daily as needed for urinary frequency and urgency active Not Available Not Available No t Available metformin ER 500 mg tablet,extend ed release 24 hr active Not Available Not Available Not Available naproxen 500 mg tablet active Not Available Not Available No t Available diazepam 5 mg tablet active Not Available Not Available Not Available nitrofurantoi n monohydrate/m acrocrystals 100 mg capsule Take 1 capsule every 12 hours by oral route. active Not Available Not Available No t Available Humalog KwikPen (U-100) Insulin 100 unit/mL subcutaneous active Not Available Not Available Not Available GaviLyte-N 420 gram oral solution active Not Available Not Available Not Available Tresiba FlexTouch U-200 insulin 200 unit/mL (3 mL) subcutaneous pen active Not Available Not Available Not Available Vitals Date Recorded Body height Body mass index (BMI) Body weight Heart rate Systolic blood pressure Diastolic blood pressure Provider Name and Address Organization Details Last Updated DateTime 7 157.48 cm 37.5 kg/m2 46169.4 4 g 84 /min 98 mm[Hg] 41 mm[Hg] Ashley Sen MD 7 15:17:41 Date Recorded Body height Body mass index (BMI) Body weight Heart rate Systolic blood pressure Diastolic blood pressure Provider Name and Address Organization Details Last Updated DateTime 7 160.02 cm 35.8 kg/m2 01996.6 6 g 87 /min 113 mm[Hg] 49 mm[Hg] Ashley Sen MD 7 15:05:21 Date Recorded Body height Body mass index (BMI) Body weight Heart rate Systolic blood pressure Diastolic blood pressure Provider Name and Address Organization Details Last Updated DateTime 7 160.02 cm 35.8 kg/m2 85613.6 6 g 98 /min 107 mm[Hg] 51 mm[Hg] Ashley Sen MD 7 17:42:23 Social History Question Answer Notes LastModified by Organizat ion Details LastModified Time Tobacco Smoking Status Never Smoker MARCOS Quijano MD 05/06/2017 14:41:57 What Is Your Level Of Alcohol Consumption? None Information not available 05/06/2017 What Is Your Level Of Caffeine Consumption? None Information not available 05/06/2017 What Was The Date Of Your Most Recent Tobacco Screening? 09/29/2017 Information n ot available 06/02/2019 Sex: Unknown Functional Status None recorded. Mental Status None recorded. Family History Relationship Description Onset Age of this Age Resolved Age Notes LastModified by Organization Details LastModified Time Unspecified Relation Heart disease btena Not available 2016 16:44:20 Unspecified Relation Diabetes mellitus btena Not available 2016 16:44:26 Unspecified Relation Myocardial infarction btena Not available 05/06 16:44:35 Unspecified Relation Hypertensive disorder btena Not available 2016 16:44:41 Unspecified Relation Malignant tumor of prostate btena Not available 2016 16:44:48 Unspecified Relation Kidney disease btena Not available 2016 16:44:54 Medical History Condition Response Other N Kidney Stones N Diabetes (On Insulin?) Y / N N Prostate Cancer N Alzheimer's N Stroke N Depression N Heart Attack N Hepatitis A / B / C N HIV/AIDS N Hypertension (High Blood Pressure) N High Cholesterol N Liver Disease N Cancer (Please specify type) N Heart Disease N Parkinson's N Epilepsy or Seizures N Dialysis N Kidney Disease N Gynecological HistoryNo gynecological history recorded. Obstetrics History GPAL:G 0 P 0 0 0 0 Past Encounters Encounter ID Performer Location Encounter Start Date Encounter Closed Date Diagnosis/Indication Diagnosis SNOMED-CT Code Diagnosis ICD10 Code Diagnosis Note [id number] [address] [place] [address] 05/06/2017 14:29:22 05/06/2017 17:13:49 Mixed urinary incontinence 431253069 N39.46 Incomplete emptying of urinary bladder [id number] R39.14 Urinary tr act infectious disease 79999385 N39.[id number] [place] [address] 07/30/2017 14:16:01 07/30/2017 17:45:30 Mixed urinary incontinence [id number] N39.46 Cystitis 07740045 N30.90 Urinary tr act infectious disease [id number] N39.[id number] [place] [address] 09/29/2017 17:41:48 09/30/2017 11:37:17 Urinary tract infectious disease 10558320 N39.0 Health Concerns Section Related Observation LastModified by Organization Detai ls LastModified Time None Recorded Concern Status LastModified by Organization Details LastModified Time None Recorded Advance Directives Directive None Recorded Payers Encounter Date Sequence Insurance Name Policy Number Policy Singer Covered Member ID Singer Member ID Guarantor Name 05/06/2017 1 [facility] [place] REPLACEMENT - HMO) [place] Ese N Reji [id number] Ese N Reji 07/30/2017 1 [facility] [place]PLACEMENT - HMO) [place] Ese N Reji [id number] Ese N Reji 09/29/2017 1 [facility] [place] REPLACEMENT - HMO) [id number] Ese N Reji [id number] Ese N Reji OBGyn Episode No OBEpisode recorded.
--- OUTSIDE RECORDS SUMMARY | 2024-12-22 15:17 | XMS_ITS | Clinical Summary ---
Author Organization [facility] Address [address] [place] [address] Phone Care Team Providers Care Deck Steward Name Role Phone Machelle Swann MD Primary Care Provider [phone] Allergies Active Allergy Reactions Criticality Noted Date Comments Nickel Rash Low 02/03/2020 Pork Extract Hives,Itching Medium 06/25/2018 Medications acetaminophen (TYLENOL) 325 mg tablet Take 2 Tablets by mouth. Active albuterol HFA (PROAIR HFA ; PROVENTIL HFA ; VENTOLIN HFA) 90 mcg/actuation inhaler Inhale 1-2 Puffs into the lungs. 12/25/19 19 Active albuterol HFA (Proventil HFA) 90 mcg/actuation inhaler INHALE 1-2 PUFFS PO Q 4 H PRF WHEEZING 12/25/19 19 Active ammonium lactate (LAC-HYDRIN) 12 % lotion APPLY TO SOLES OF FEET EVERY DAY. WEAR SOCKS TO BED AT NIGHT 02/24/20 24 Active ascorbic acid (Vitamin C) 500 mg chewable tablet Take by mouth. 08/21/20 21 Active atorvastatin (LIPITOR) 20 mg tablet Take 1 Tablet by mouth. 03/21/20 21 Active castor oiL 100 % Purchases OTC_ takes daily Active cetirizine (ZyrTEC) 5 mg tablet Take 1 Tablet by mouth. 06/03/20 23 Active cholecalciferol (VITAMIN D-3) 10 mcg (400 unit) tablet Purchases OTC - takes 2 tablets daily Active cranberry fruit 450 mg tablet Purchases OTC - takes BID Active cyanocobalamin (VITAMIN B-12) 100 mcg tablet See Instructions, Per pt., takes 5000 mcg daily?, 0 Refills, Maintenance, 11/17/20 13:14:00 EST, Partial fill upon patient request if the prescription is for a schedule II opioid drug. 11/17/19 Active dapagliflozin propanediol (FARXIGA) 5 mg tablet Take by mouth. Activ e diclofenac (VOLTAREN) 1 % topical gel Apply 4 g topically 3 times daily. 05/20/20 Active diphenhydrAMINE (BENADRYL) 25 mg capsule Take 1 Capsule by mouth. Active estradioL (ESTRACE) 0.01 % (0.1 mg/gram) vaginal cream Place vaginally. Active blood-glucose meter misc 1 Dose by Does not apply route. 09/23/20 Active blood sugar diagnostic (FreeStyle Lite Strips) test strip 1 Strip 3 times daily. 05/03/20 24 Active famotidine (PEPCID) 20 mg tablet Take 1 Tablet by mouth. 04/25/20 Active fluticasone propionate (FLONASE) 50 mcg/actuation nasal spray USE 1 SPRAY IN EACH NOSTRIL ONCE D 09/06/20 18 Active gabapentin (NEURONTIN) 100 mg capsule TAKE 1 CAPSULE BY MOUTH THREE TIMES DAILY IN THE MORNING, EVENING, AND BEDTIME 09/16/20 Active insulin degludec (Tresiba FlexTouch U-100) 100 unit/mL (3 mL) injection pen Inject 90 Units into the skin. 09/24/20 Active insulin lispro (HumaLOG KwikPen) 100 unit/mL injection pen INJECT 14 UNITS SUBCUTANEOUSLY THREE TIMES DAILY BEFORE MEALS 08/25/20 23 Active ipratropium (ATROVENT) 42 mcg (0.06 %) nasal spray 1 [place] by Nasal route. 09/24/20 Active omega-3 acid ethyl esters (LOVAZA) 1 gram capsule Purchases OTC - take 1 every day Active omeprazole OTC (PriLOSEC OTC) 20 mg EC tablet Take 1 Tablet by mouth. Active pantoprazole (PROTONIX) 40 mg EC tablet Take 1 Tablet by mouth. 09/04/20 Active magnesium oxide (MAG-OX) 400 mg magnesium tablet Take 400 mg by mouth. Active lancets (TRUEplus Lancets) 33 gauge misc TEST BLOOD SUGAR THREE TIMES DAILY 04/30/20 24 Active Active Problems Problem Noted Date Diagnosed Date Class 2 obesity 05/20/2024 Incontinence 05/20/2024 Seasonal allergies 05/20/2024 Adjustment disorder with mixed anxiety and depre ssed mood 10/03/2023 Overview (08/25/2024): Last Assessment & Plan: - pt is having a difficulty with her 's cognitive and behavioral change - agreed to discuss with her about getting evaluation OAB (overactive bladder) 09/23/2023 Bilateral foot pain 06/07/2023 Overview (08/25/2024): Last Assessment & Plan: - left foot worse than right - multifactorial: Diabetic peripheral neuropathy; osteoarthritis; plantar fasciitis - referred to a timing inspector; waiting for an appt - check the status of diabetic footwear Elevated blood pressure read ing in office without diagnosis of hypertension 06/07/2023 Overview (08/25/2024): Last Assessment & Plan: -Goal BP < 140/90 per JNC-8 and < 130/80 per ACC/AHA guideline (Treatment threshold ? 140/90 ) -BP at goal today -Continue working on lifestyle modifications -Recommended self-monitoring BP. -Pt has tried lisinopril for renal protection, not for HTN, in the past, but it was discontinued due to hyperkalemia and cough -Currently prescribed Dapagliflozin from helix coil winder -Follow up in 3-6 mo, sooner if any problem arises Dyslipidemia 02/24/2023 Overview (08/25/2024): Last Assessment & Plan: - 12/24/22 TC 202; TG 189; HDL 48; LDL 124 - Currently prescribed atorvastatin, but pt was having a difficulty accepting the information that it is not nephrotoxic. We discussed it again. Pt is willing to try or repeat lipid profile in 3 mo and reassess her readiness to start taking it. - Continue working on lifestyle modifications. Pancreatic insufficiency 12/16/2022 Overview (08/25/2024): Last Assessment & Plan: - followed by [facility] - no anatomical pancreatic abnormality on MRI in Dec 2022 - continue vegan / plant-based pancreatic enzyme Right knee pain 12/16/2022 Allergic rhinitis 10/12/2022 Anemia 10/12/2022 Overview (08/25/2024): Last Assessment & Plan: - likely due to chronic diseaes - Hx iron infusion - 12/24/22 Hgb 11.7, Hematocrit 35.7 Chronic idiopathic constipation 10/12/2022 Overview (08/25/2024): Last Assessment & Plan: -Followed by [facility], last seen 08/06/22 -EGD and Colonoscopy on 12/24/21; showed Tubular Adenoma, she was recommended to repeat in 3 years. - pt has been using castor oil - continue trying fiber-rich diet and increasing physical activity as tolerated. - continue Senakot as prescribed Chronic kidney disease, stage III (moderate) 01/2022 Overview (08/25/2024): Last Assessment & Plan: - Building Carpenter Helper, Dr. 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 Tsai is prescribing Dapagliflozin (Farxiga) - Previously on Lisinopril, but was disccontinued due to cough / K - Avoid nephrotoxic drugs - Renal dose meds Gastroesophageal reflux disease 10/12/2022 Overview (08/25/2024): Last Assessment & Plan: -s/p EGD 12/24/21 -followed by [facility] -continue omeprazole 40mg daily -previously tried pantoprazole and lansoprazole; pt prefers omeprazole. -previously prescribed famotidine. Max dose for her renal function is 20 mg daily. Pt does not take it regularly. Irritable bowel syndrome 10/12/2022 Overview (08/25/2024): Last Assessment & Plan: - followed by [facility] - continue current treatment plan per GI - low FODMAP diet - pt is prescribed simethicone, Sennakot, citrucel, but does not like taking it regularly Osteopenia 10/12/2022 Atrial fibrillation 12/25/2021 Cobalamin deficiency 12/25/2021 Diabetic retinopathy 12/25/2021 Nephrolithiasis 12/25/2021 Overview (08/25/2024): Last Assessment & Plan: - seen by urologist, last visit on Vitamin D deficiency 12/25/2021 Diabetic peripheral neuropat hy associated with type 2 diabetes mellitus 11/22/2019 Nonrheumatic mitral valve regurgitation 11/09/20 Nonrheumatic tricuspid valve regurgitation 11/09 Obstructive sleep apnea syndrome 11/09/2019 Overview (08/25/2024): Last Assessment & Plan: - Pt does not feel comfortable with CPAP SOB (shortness of breath) 11/09/2019 Type 2 diabetes mellitus without complication Arthritis 03/03/2019 Chronic cough 01/26/2019 Moderate persistent asthma with acute exacerbati on 01/26/2019 Pulmonary hypertension 12/31/2018 Pulmonary arterial hypertension 11/19/2018 Ulcer of foot 07/19/2011 Immunizations Name Administration Dates Next Due Pfizer SARS-CoV-2 COVID-19, mRNA, LNP-S, preservative free 08/31/2021,03/05/2021,02/10/2021 Social History Tobacco Use Types Packs/Day Years Used Date Smoking Tobacco: Unknown Tobacco Cessation:Counseling Given: Not Answered Comments Unknown Sex and Gender Information Value Date Recorded Sex Assigned at Not on file Legal Sex Female 3:54 AM EST Gender Identity Not on file Sexual Orientation Not on file Obstetrics History Last Filed Vital Signs Vital Sign Reading Time Taken Comments Blood Pressure - - Pulse - - Temperature - - Respiratory Rate - - Oxygen Saturation - - Inhaled Oxygen Concentration - - Weight 93.4 kg (206 lb) 09/14/2024 1:20 PM EST Height 157.5 cm (5' 2.01 ) 09/14/2024 1:20 PM ES T Body Mass Index 37.67 09/14/2024 1:20 PM EST Plan of Treatment Health Maintenance Due Date Last Done Comments Breast Cancer Screening 1960 Diabetes: Annual Foot Exam 1970 Diabetes: Annual Retina Eye Exam 1970 Cervical Cancer Screening: Pap Smear 1981 Zoster Vaccines (1 of 2) 2010 RSV Immunization Patients 60+ Years Old (1 - Risk 60-74 years 1-dose series) 2020 Colorectal Cancer Screening: Colonoscopy 12/10/2023 Depression Screening 12/10/2023 10/23/2022 Diabetes: Annual Urine Albumin-Creatinine Ratio (uACR) 12/10/2023 07/24/2022, 02/09/2019, 02/09/2019 HIV Screening 12/10/2023 Hepatitis C Screening 12/10/2023 Social Influencers of Health Screening 12/10/2023 Diabetes: Annual GFR (Glomerular Filtration Rate) 12/30/2024 12/30/2023, 12/24/2018 Hypertension/CHF/CAD Annual BMP Blood Test 12/30/2024 12/30/2023, 12/24/2018 Diabetes: Blood Sugar Control Test (HGBA1C) 01/16/2025 07/19/2024, 12/30/2023, 02/09/2019 Cholesterol Screening (Lipid Panel) 12/30/2028 12/30/2023 DTaP,Tdap,and Td Vaccines (2 - Td or Tdap) 07/08/2032 07/08/2022 Hepatitis B Vaccines Completed 09/23/2023, 12/16/2022, 07/08/2022 Pneumococcal Vaccine: Pediatrics (0 to 5 Years) and At-Risk Patients (6 to 64 Years) Completed 09/23/2023, 01/01/2021 COVID-19 Vaccine Completed 08/06/2024, [...] on patient's age to complete this topic MMR Vaccines Aged Out No longer eligi ble based on patient's age to complete this topic Meningococcal ACWY Vaccine Aged Out N o longer eligible based on patient's age to complete this topic RSV Immunization Patients Under 20 months Aged Out No longer eligible based on patient's age to complete this topic Varicella Vaccines Aged Out No longer eligible based on patient's age to complete this topic Procedures Procedure Name Priority Date/Time Associated Diagnosis Comments ANNUAL BMP BLOOD TEST Routine 12/30/2023 HEMOGLOBIN A1C Routine 12/30/2023 LIPID PANEL Routine 12/30/2023 URINE ALBUMIN CREATININE RATIO Routine 07/24/2022 from Last 3 Months or Most Recently Relevant to Health Maintenance Results * Annual BMP Blood Test (12/30/2023) Annual BMP Blood Test Abstracted Result [facility] Provider HEALTH MAINTENANCE Final Result * Hemoglobin A1c (12/30/2023) Pathologist [facility] Hemoglobin A1C 0.0 % Comment:no interpretation Blood Venous blood specimen / Unknown Result [facility] Provider LAB BLOOD ORDERABLES Machelle l Result * Lipid panel (12/30/2023) Pathologist [facility] Triglycerides 0 mg/dL Comment:no interpretation Cholesterol 0 mg/dL Comment:no interpretation HDL 0 mg/dL Comment:no interpretation LDL Cholesterol 0 mg/dL Comment:no interpretation Blood Venous blood specimen / Unknown Result [facility] Provider LAB BLOOD ORDERABLES Machelle l Result * Urine Albumin Creatinine Ratio (07/24/2022) Pathologist [facility] Urine Albumin Creatinine Ratio Abstracted Result [facility] Provider HEALTH MAINTENANCE Final Result from Last 3 Months or Most Recently Relevant to Health Maintenance Insurance MEDICAID - [place] Care Teams Deck Steward Relationship Specialty Start Date End Date Machelle Swann MD [address] [place] [address] [place] [address] PCP - General 10/15/12
--- OUTSIDE RECORDS SUMMARY | 2024-12-22 15:17 | XMS_ITS | Encounter Summary ---
Author Organization [employer] Address [address] [facility] 7t [place] [address] Care Team Providers Care Pediatric Anesthesiologist Name Role Phone Maranda Serna MD Primary Care Provider [phone] Reason for Visit * Reason Onset Date Comments Med Refill 12/13/2024 Encounter Details Date Type Department Care Team ([facility] st Contact Info) Description 12/13/2024 Refill [facility]INE [address] [place], [place] [phone] Maranda Serna MD [address] [place], [place] [phone] Social History Tobacco Use Types Packs/Day Years [...] encounter Miscellaneous Notes * Telephone Encounter - Marci Kinsey LPN - 12/13/2024 1:13 PM EST Humalog was sent on 11/16/24 with 2 refills to [facility]. Next appointment 01/17/25. * Telephone Encounter - Grayson Broussard - 12/13/2024 1:03 PM EST TC from pt requesting medication refill. Medications needing refill : Tresiba FlexTouch 100 UNIT/ML injection insulin lispro (HumaLOG) 100 UNIT/ML injection To be sent to: [facility] - [place], [place] - [address] [facility] documented in this encounter Plan of Treatment Upcoming Encounters Date Type Department Care Team (Late st Contact Info) Description 01/17/2025 11:00 AM EDT Office Visit [facility] MEDICINE [address] [place] [address] Maranda Serna MD [address] [place] [address] documented as of this encounter Visit Diagnoses Not on filedocumented in this encounter Additional Health Concerns Assessment Noted Time PHQ-9 Depression Total Score: 6 10/23/20 10:04 AM EST documented as of this encounter Care Teams Pediatric Anesthesiologist Relationship Specialty Start Date End Date Maranda Serna MD [address] [place] [address] PCP - General Family Medicine 08/01/21 documented as of this encounter
--- OUTSIDE RECORDS SUMMARY | 2024-12-22 15:17 | XMS_ITS | Encounter Summary ---
Author Organization [employer] Address [address] [facility] 7[address] [place] [address] Care Team Providers Care Warehouse Driver Name Role Phone Maranda Serna MD Primary Care Provider [phone] Reason for Visit * Reason Onset Date Comments requesting a call back 12/19/2022 Encounter Details Date Type Department Care Team ([facility] Contact Info) Description 12/19/2022 Telephone [facility]INE [address] [place], [place] [phone] Maranda Serna MD [address] [place], [place] [phone] requesting a call back Social History Tobacco Use Types Packs/Day Years Used Date Smoking Tobacco: Former Cigarettes Q uit: 1976 Smokeless Tobacco: Never Alcohol Use Standard Drinks/Week [...] PM EDT documented as of this encounter Miscellaneous Notes * Telephone Encounter - Madalyn Joshua - 12/20/2022 8:33 AM EST RX for DM shoes sent to [facility] on 10/23/2022 their phone number is [phone] office opens at 9:15 pt can call to follow up as they do call patients for appts I will call again to follow up everythingfiled under media * Telephone Encounter - German Amaya - 12/19/2022 3:03 PM EST Tc from pt requesting a call back in regards to diabetic shoes, pt is inquiring on where script wassent to , states appt was scheduled for today. Please contact at [phone] documented in this encounter Plan of Treatment Upcoming Encounters Date Type Department Care Team (Late st Contact Info) Description 01/17/2025 11:00 AM EDT Office Visit [facility] [address] [place] [address] Maranda Serna MD [address] [place], [place] [phone] documented as of this encounter Visit Diagnoses Not on filedocumented in this encounter Additional Health Concerns Assessment Noted Time PHQ-9 Depression Total Score: 6 10/23/20 22 10:04 AM EST documented as of this encounter Care Teams Warehouse Driver Relationship Specialty Start Date End Date Maranda Serna MD [address] [place] [address] PCP - General Family Medicine 08/01/21 documented as of this encounter
--- OUTSIDE RECORDS SUMMARY | 2024-12-22 15:17 | XMS_ITS | Encounter Summary ---
Author Organization [facility] Address [address] [place] [address] Care Team Providers Care Railcar Foreman Name Role Phone Viet Sánchez Unavailable [phone] Viet Sánchez Primary Care Provider [phone] Encounter Details Date Type Department Care Team (Late st Contact Info) Description 07/07/2018 Scanned Document [facility] Urologic Surgery [place] [address] [facility] [address] [place] [address] Provider, Sheryl, [address] [place] [address] Social History Tobacco Use Types Packs/Day Years [...] on filedocumented in this encounter Care Teams Railcar Foreman Relationship Specialty Start Date End Date Viet Sánchez PA [address] [place] [address] PCP - General 06/18/18 Viet Sánchez PA [address] [place] [address] 06/18/18 documented as of this encounter
--- OUTSIDE RECORDS SUMMARY | 2024-12-22 15:17 | XMS_ITS | Encounter Summary ---
Author Organization [facility] Address [address] [place] [address] Care Team Providers Care Accelerator Technician Name Role Phone Viet Sánchez Unavailable [phone] Viet Sánchez Primary Care Provider [phone] Encounter Details Date Type Department Care Team (Late st Contact Info) Description 02/18/2020 Scanned Document [facility] [address] [place] [phone] Provider, Sheryl, [address] [place] [address] Social History Tobacco Use Types Packs/Day Years [...] have Coronavirus / COVID-19? No / Unsure 02/21/2020 2:11 PM EDT documented as of this encounter Plan of Treatment Not on file documented as of this encounter Visit Diagnoses Not on filedocumented in this encounter Care Teams Accelerator Technician Relationship Specialty Start Date End Date Viet Sánchez PA [address] [place] [address] PCP - General 06/18/18 Viet Sánchez PA [address] [place] [address] 06/18/18 documented as of this encounter
--- OUTSIDE RECORDS SUMMARY | 2024-12-22 15:17 | XMS_ITS | Encounter Summary ---
Author Organization [employer] Address [address] [facility] [facility] [address] [place] [address] Care Team Providers Care Resource Technician Name Role Phone Maranda Serna MD Primary Care Provider [phone] Reason for Visit * Reason Onset Date Comments December recall 11/25/2024 Encounter Details Date Type Department Care Team ([facility] st Contact Info) Description 11/25/2024 Telephone [facility] MEDICINE [address] [place], [place] [phone] Ayse Arce MA December recall Social History Tobacco Use Types Packs/Day Years [...] encounter Miscellaneous Notes * Telephone Encounter - Ayse Arce MA - 11/25/2024 2:31 PM EST .NEGIN called the patient to schedule a visit and no answer. Message left to call back and schedule. (December recall RV DM2/CKD () documented in this encounter Plan of Treatment Upcoming Encounters Date Type Department Care Team (Late st Contact Info) Description 01/17/2025 11:00 AM EDT Office Visit [facility] MEDICINE [address] [place] [address] Maranda Serna MD [address] [place] [address] documented as of this encounter Visit Diagnoses Not on filedocumented in this encounter Additional Health Concerns Assessment Noted Time PHQ-9 Depression Total Score: 6 10/23/20 22 10:04 AM EST documented as of this encounter Care Teams Resource Technician Relationship Specialty Start Date End Date Maranda Serna MD [address] [place] [address] PCP - General Family Medicine 08/01/21 documented as of this encounter
--- OUTSIDE RECORDS SUMMARY | 2024-12-22 15:17 | XMS_ITS | Clinical Summary ---
Author Organization [facility] Address [address] [place] [address] Care Team Providers Care Entry Level Drafter Name Role Phone Viet Sánchez Primary Care Provider [phone] Allergies Active Allergy Reactions Criticality Noted Date Comments Pork/Porcine Containing Products Medications fluticasone (FLONASE) 50 mcg/actuation nasal spray USE 1 SPRAY IN EACH NOSTRIL ONCE D 0 09/06/2018 Active folic acid (FOLVITE) tablet 10/05/2018 Active TRESIBA FLEXTOUCH U-100 100 unit/mL (3 mL) insulin pen 09/05/2018 Act woody ranitidine (ZANTAC) 150 mg tablet 09/05/2018 Active pravastatin (PRAVACHOL) 20 mg tablet 09/21/2018 Active metoprolol succinate XL (TOPROL-XL) 25 mg 24 hr tablet 09/23/2018 Act woody methotrexate tablet 4 tablets every Friday10/05/2018 Active metFORMIN XR (GLUCOPHATE-XR) 500 mg 24 hr tablet Take 500 mg by mouth 2 (two) times a day. 2 tabs bid 09/23/2018 Active HUMALOG KWIKPEN INSULIN 100 unit/mL insulin pen 3 (three) times a day. With meals 10/05/2018 Active nitrofurantoin (MACRODANTIN) 50 mg capsule 09/05/2018 Activ e benzonatate (TESSALON) 100 mg capsule TK 1 TO 2 CS PO TID FOR 7 DAYS PRF COUGH 0 01/02/2019 Active cetirizine (ZyrTEC) 10 mg tablet Take one tablet daily for the next five days, then daily as needed for itching or hives 12/25/2018 Active fluconazole (DIFLUCAN) 150 mg tablet TK 1 T PO ONCE 0 12/31/2018 Active montelukast (SINGULAIR) 10 mg tablet TK 1 T PO QD IN THE MICHAEL 2 12/10/2018 Active levocetirizine (XYZAL) 5 mg tablet Take 5 mg by mouth nightly. Active aspirin 81 mg EC tablet Take 81 mg by mouth daily. Active albuterol HFA 90 mcg/actuation inhaler Inhale 2 puffs every 6 (six) hours as needed for wheezing. Active b complex vitamins capsule Take 1 capsule by mouth daily. Active methotrexate tablet TAKE 6 TABLETS BY MOUTH 1 TIME A WEEK DIRECTED 24 tablet 2 10/03/2019 Active Active Problems Problem Noted Date Diagnosed Date Seronegative rheumatoid arthritis 03/03/2019 Type 2 diabetes mellitus wit h diabetic polyneuropathy, with long-term current use of insulin 02/09/2019 Assessment & Plan (02/09/2019 10:09 AM EDT): It was a pleasure to see Mrs. Mendoaz today for evaluation of her uncontrolled insulin [...] persistent asthma with acute exacerbati on 01/26/2019 Polyarthralgia 10/06/2018 Assessment & Plan (10/06/2018 4:06 PM EST): - Based on her hx of psorasis, asymmetric polyarthritis, back pain, and arthralgias relieved by MTX favor this is psoriatic arthritis superimposed on osteoarthritis. 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 - Will obtain lab work. Also curious to see radiographic imaging of the hands, feets, SI and lumbar spine. Will obtain interval history from auto dealership porter Karlee Le. - RTC in 4 months - she is to continue with mtx 4 tabs qweekly and folic acid Family History Medical History Relation Comments Cancer Father prostate Heart disease Father Diabetes Mother Heart disease Mother Cancer Mother's Brother stomach Asthma Sister Relation Status Comments Father (Age 78) Mother passed Oct.12 010 Mother's Brother Sister Social History Tobacco Use Types Packs/Day Years Used Date Smoking Tobacco: Never Smokeless Tobacco: Never Alcohol Use Standard Drinks/Week Comments No 0 (1 standard drink = 0.6 oz pur e alcohol) Comments No Sex and Gender Information Value Date Recorded Sex Assigned at Not on file Legal Sex Female 11:26 AM EDT Gender Identity Not on file Sexual Orientation Not on file Last Filed Vital Signs Vital Sign Reading Time Taken Comments Blood Pressure 103/62 04/29/2019 1:26 PM EDT Pulse 97 04/29/2019 1:26 PM EDT Temperature - - Respiratory Rate 16 03/02/2019 10:3 6 AM EDT Oxygen Saturation 100% 03/02/2019 10: 36 AM EDT ra Inhaled Oxygen Concentration - - Weight 92.9 kg (204 lb 14.4 oz) 04/29/2019 1:26 PM EDT Height 157.5 cm (5' 2 ) 03/02/2019 10:3 6 AM EDT Body Mass Index 37.48 03/02/2019 10:36 AM EDT Plan of Treatment Health Maintenance Due Date Last Done Comments Breast Cancer Screening 1960 CT Colonography 1960 Colonoscopy 1960 Colorectal Cancer Screening 1960 FIT-DNA (Cologuard) 1960 FIT 1960 FOBT 1960 Flex Sigmoidoscopy - 5y 1960 DTaP,Tdap,and Td Vaccines (1 - Tdap) 1978 Pap Smear 1981 Cervical Cancer Screening 1990 HPV/Cotest 1990 Zoster Vaccines (1 of 2) 2010 COVID-19 Vaccine ( - 2023-2 5 season) 2024 Influenza Vaccine (#1) 2024 HIV Screening Completed 10/06/2018 Diabetes: Hemoglobin A1C Discontinued 02/09/2019 Diabetes: Urine Microalbumin Discontinued , 02/09/2019 HPV Vaccines Aged Out No longer eligi [...] on patient's age to complete this topic Pneumococcal Vaccine: Pediatrics (0 to 5 Years) and At-Risk Patients (6 to 64 Years) Aged Out No longer eligible based on patient's age to complete this topic Procedures Procedure Name Priority Date/Time Associated Diagnosis Comments MICROALBUMIN/CREATI NINE RATIO Routine 02/09/2019 10:15 AM EDT Type 2 diabetes mellitus with diabetic polyneuropathy, with long-term current use of insulin ([facility]) POCT HEMOGLOBIN, A1C Routine 02/09/2019 8:10 AM EDT Type 2 diabetes mellitus with diabetic polyneuropathy, with long-term current use of insulin ([facility]) HIV COMBO ANTIGEN/ANTIBODY Routine 10/06/2018 3:59 PM EST Polyarthralgia from Last 3 Months or Most Recently Relevant to Health Maintenance Results * Microalbumin/creatinine ratio (02/09/2019 10:15 AM EDT) Microalbumin/Creat Ratio 20 2 - 20 mg/g Creat 02/09/2019 11:55 AM EDT [facility] Creatinine, random urine 101 mg/dL 02/09/2019 11:55 AM EDT [facility] Comment: The laboratory does not have established reference ranges for this test. Interpretation of results is at the discretion of the ordering physician. Urine specimen (specimen) Urine specimen obtained by clean catch procedure / Unknown Non-blood Collection / Unknown 02/09/2019 10:15 AM EDT 02/09/2019 10:15 AM EDT us Keke Katz APRN LAB URINE ORDERABLES Final Res ult [facility] [address] [place] [address], [place] [phone] * POCT hemoglobin, A1c (02/09/2019 8:10 AM EDT) POCT Hemoglobin A1C 9.2 4.4 - 6.4 % Blood specimen (specimen) 02/09/2019 8:10 AM EDT us Jadarijuan c Salamancann BUCK SWAMPER POCT ORDERABLES NO CHARGE Machelle l Result * HIV combo antigen/antibody (10/06/2018 3:59 PM EST) HIV Combo AB/AG Negative Negative 10/06/2018 6:02 PM EST [facility] Blood specimen (specimen) Venous blood specimen / Unknown Venipuncture / Unknown 10/06/2018 3:59 PM EST 10/06/2018 3:59 PM EST Narrative [facility] - 10/06/2018 6:02 PM EST This test is a 4th generation HIV Antigen-Antibody Combination assay, using a chemiluminescent microparticle immunoassay, for the simultaneous qualitative detection of human immuno- deficiency virus (HIV) p24 antigen and antibodies to HIV type 1 (HIV-1) and/or HIV type 2 (HIV-2) in human serum or plasma. The [employer] T[employer]or HIV Ag/Ab Combo assay is intended to be used as an aid in the diagnosis of HIV-1 and/or HIV-2 infection, including acute or primary HIV-1 infection. Initially-positive tests are repeated in duplicate. Repeat-positive tests will be confirmed for HIV by a HIV-1/HIV-2 rapid supplemental/ differentiation antibody assay. This testing algorithm is in line with the current CDC recommendations. us Isaias Bravo MD LAB BLOOD ORDERABLES NO ST AT Final Result [facility] [address] [place] [address], [place] [phone] from Last 3 Months or Most Recently Relevant to Health Maintenance Insurance MEDICAID [place] Care Teams Entry Level Drafter Relationship Specialty Start Date End Date Viet Sánchez PA [address] [place] [address] PCP - General Family Medicine 07/22/18
--- OUTSIDE RECORDS SUMMARY | 2024-12-22 15:17 | XMS_ITS | Encounter Summary ---
Author Organization [employer] Address [address] [place] [address] Care Team Providers Care Bleach Boiler Filler Name Role Phone Maranda Serna MD Primary Care Provider [phone] Encounter Details Date Type Department Care Team ([facility] Contact Info) Description 11/27/2024 Orders Only [facility] External Provider, [facility] Social History Tobacco Use Types Packs/Day Years [...] 11:00 AM EDT Office Visit [facility] [address] [place] [address] Maranda Serna MD [address] [place] [address] documented as of this encounter Procedures Procedure Name Priority Date/Time Associated Diagnosis Comments CT CHEST WO CONTRAST Routine 11/27/2024 8:28 PM EST LACTIC ACID Routine 11/27/2024 5:48 PM EST HIGH SENSITIVITY TROPONIN I Routine 11/27/2024 4:48 PM EST C-REACTIVE PROTEIN Routine 11/27/2024 2: 07 PM EST COMPREHENSIVE METABOLIC PANEL Routine 11/27/2024 2:07 PM EST D DIMER HIGH SENSITIVITY Routine 11/27/2024 2:06 PM EST HIGH SENSITIVITY TROPONIN I Routine 11/27/2024 2:06 PM EST PROTHROMBIN TIME-INR Routine 11/27/2024 2:06 PM EST B TYPE NATRIURETIC PEPTIDE (BNP) Routine 11/27/2024 2:06 PM EST XR CHEST 2 VIEWS Routine 11/27/2024 1:35 PM EST documented in this encounter Results * CT Chest w/o Contrast (11/27/2024 8:28 PM EST) Anatomical Region Laterality Modality Body, Chest Computed Tomogra phy 11/27/2024 8:28 PM EST Narrative 11/27/2024 8:30 PM EST ? [facility] ?[address] ?[place] [address] ? CT Scan Report ? Signed ? Patient: Reji,Ese ?MR#: [id number] ?? 8 ? : 1960 ?Acct:[id number] ? Age/Sex: 64 / F ?ADM Date: 11/27/24 ? Loc: HO.ED ? Attending Dr: ? Ordering Physician: Rajwinder Bhatti CNP ?? Date of Service: 11/27/24 ?? Procedure(s): CT chest wo IV con ?? Accession Number(s): [id number] ? cc: Rajwinder Bhatti CNP; Maranda Serna MD ? Report Number: ?? [id number]: Total DLP = ??543.00 mGy-cm ? CLINICAL HISTORY: cp, sob ? CT chest without contrast ? Comparison: CT - CHEST WITHOUT CONTRAST [id number] - 12/22/07 00:00 EST ? Findings: The [...] ? DD/ 27 ? TD/TT: 11/27/242027 ? Head Of Talent Management: ? Procedure Note Constantin Falcon - 11/27/[address] [place] [address] [address] Scan Report Signed Patient: Ese MendozaMR#: [id number] 8 : 1960Acct:[id number] Age/Sex: 64 / FADM Date: 11/27/24 Loc: HO.ED Attending Dr: Ordering Physician: Rajwinder Bhatti CNP Date of Service: 11/27/24 Procedure(s): CT chest wo IV con Accession Number(s): [id number] cc: Rajwinder Bhatti CNP; Maranda Serna MD Report Number: [id number]: Total DLP = 543.00 mGy-cm CLINICAL HISTORY: cp, sob CT chest without contrast Comparison: CT - CHEST WITHOUT CONTRAST [id number] - 12/22/07 00:00 EST Findings: The prior [...] signed by Serina Nolan MD in OV> 11/27/242028 DD/ 27 TD/TT: 11/27/242027 Head Of Talent Management: [facility] External Provider IMG CT PROCEDURES Edited Result - Final * Lactic Acid (11/27/2024 5:48 PM EST) [facility] Lactic Acid 1.2 0.5 - 2.0 mmol/L [facility] 11/27/2024 5:48 PM EST 11/27/2024 5:54 PM EST Generic External Data Provider LAB BLOOD ORDERAB LES Final Result [facility] [address] [place] [phone] * (ABNORMAL) High Sensitivity Troponin I (11/27/2024 4:48 PM EST) Pathologist [facility] TROPONIN I HIGH SENSITIVITY 743.6(HH) <3.5 - 17.0 ng/L [facility] Comment:Critical value for t est(s): TROP Results called to and readback by: VICKIE Person calling: XIN Date: 11/27/24Time: 1717The Castillo high sensitivity Troponin-I results should beused in conjunction with other diagnostic information suchas ECG, clinical observations and information, and patientsymptoms to aid in the diagnosis of MD. 11/27/2024 4:48 PM EST 11/27/2024 4:52 PM EST Generic External Data Provider LAB BLOOD ORDERAB LES Final Result Performing Organization Address [facility]/ZIP Co de Phone Number [facility] [address] [place] [phone] * (ABNORMAL) C-reactive Protein (11/27/2024 2:07 PM EST) [facility] C Reactive Protein 4.57(H) < or = 0.50 mg/dL [facility] 11/27/2024 2:07 PM EST 11/27/2024 2:10 PM EST [employer] External Data Provider LAB BLOOD ORDERAB LES Final Result Performing Organization Address [facility]/ZIP Co de Phone Number [facility] [address] [place] [phone] * (ABNORMAL) Comprehensive Metabolic Panel (11/27/2024 2:07 PM EST) [facility] Sodium 140 135 - 145 mmol/L [facility] Potassium 4.0 3.3 - 5.1 mmol/L [facility] Chloride 108 96 - 108 mmol/L [facility] Carbon Dioxide 26 22 - 29 mmol/L [facility] Anion Gap 10(L) 12 - 20 [facility] Urea Nitrogen (BUN) 32(H) 9 - 16 mg/dL [facility] Creatinine, Serum 1.60(H) 0.5 - 1.4 mg/dL [facility] Creatinine Clr Calc Pharmacy 36.8 [facility] Comment:Provided height and weight: 157.48 cm,89.1 kg.eGFR (calculated from the MDRD study equation) and eCrCl(calculated from the Cockcroft-Gault equation) are based ondifferent parameters and may not yield comparable results.If eCrCl result is absurd, please check patient'sheight/weight. Estimated Glomerular Filt Rate 32 [facility] Comment:Chronic Kidney Disea se: Estimated GFR < 60 mL/min/1.77p2Cturkg Kidney Disease: Estimated GFR < 15 mL/min/1.73m2 Glucose 149(H) 60 - 115 mg/dL [facility] Calcium 8.6 8.4 - 10.2 mg/dL [facility] Bilirubin, Total 0.4 0.0 - 1.0 mg/dL [facility] Aspartate Amino Transferase 22 5 - 31 U/L [facility] Alanine Aminotransferase 9 0 - 31 U/L [facility] Total Protein 6.7 6.5 - 8.0 g/dL [facility] Albumin Level 3.5 3.5 - 5.0 g/dL [facility] Alkaline Phosphatase 108 39 - 117 U/L [facility] 11/27/2024 2:07 PM EST 11/27/2024 2:10 PM EST us Generic External Data Provider LAB BLOOD ORDERAB LES Final Result [facility] [address] [place] [phone] * (ABNORMAL) B Type Natriuretic Peptide (BNP) (11/27/2024 2:06 PM EST) B Type Natriuretic Peptide 171(H) <100 pg/mL [facility] Comment:For those patients w ho are being treated with Natrecor(nesiritide, recombinant BNP), BNP testing should beperformed at least two hours post treatment in order toensure that only endogenous levels of BNP are detected. 11/27/2024 2:06 PM EST 11/27/2024 2:10 PM EST Generic External Data Provider LAB BLOOD ORDERAB LES Final Result Performing Organization Address [facility] Co de Phone Number [facility] [address] [place] [phone] * D Dimer High Sensitivity (11/27/2024 2:06 PM EST) Pathologist [facility] D Dimer High Sensitivity 204 NG/ML [facility] Comment:D-DIMER HS REFERENCE RANGENote: Our assay reports D-Dimer Units (D- DU).The cut-off value for venous thromboembolic (VTE) disease is230 ng/mL. This value has a very high negative predictivevalue when the patient has a low to moderate clinicalprobability of VTE.The upper limit of normal is 243 ng/mL. 11/27/2024 2:06 PM EST 11/27/2024 2:10 PM EST [employer] External Data Provider LAB BLOOD ORDERAB LES Final Result Performing Organization Address [facility] Co de Phone Number [facility] [address] [place] [phone] * (ABNORMAL) High Sensitivity Troponin I (11/27/2024 2:06 PM EST) Pathologist [facility] TROPONIN I HIGH SENSITIVITY 702.1(HH) <3.5 - 17.0 ng/L [facility] Comment:Critical value for t est(s): TROP Results called to and readback by: ABIMAEL Person calling: XIN Date: 11/27/24 Time:1435The Castillo high sensitivity Troponin-I results should beused in conjunction with other diagnostic information suchas ECG, clinical observations and information, and patientsymptoms to aid in the diagnosis of MD. 11/27/2024 2:06 PM EST 11/27/2024 2:10 PM EST Generic External Data Provider LAB BLOOD ORDERAB LES Final Result Performing Organization Address [facility] de Phone Number [facility] [address] [place] [phone] * Prothrombin Time-INR (11/27/2024 2:06 PM EST) Prothrombin Time 12.1 10.9 - 12.4 SEC [facility] INTERNATIONAL NORM RATIO 1.0 0.9 - 1.1 [facility] Comment:INTERNATIONAL NORMAL IZED RATIO (INR) REFERENCE [...] 2:06 PM EST 11/27/2024 2:10 PM EST [employer] External Data Provider LAB BLOOD ORDERAB LES Final Result Performing Organization Address [facility] de Phone Number [facility] [address] [place] [phone] * XR Chest 2 Views (11/27/2024 1:35 PM EST) Anatomical Region Laterality Modality Chest Radiographic Mary ging 11/27/2024 1:35 PM EST Narrative 11/27/2024 1:37 PM EST ? [facility] ?[address] ?[place] [address] ?XRay Report ? Signed ? Patient: Reji,Ese ?MR#: [id number] ?? 8 ? : 1960 ?Acct:[id number] ? Age/Sex: 64 / F ?ADM Date: 01/18/25 ? Loc: HO.ED ? Attending Dr: ? Ordering Physician: Shakira Godinez ?? Date of Service: 11/27/24 ?? Procedure(s): XR chest 2V ?? Accession Number(s): [id number] ? cc: Shakira Godinez; Maranda Serna MD ? CLINICAL HISTORY: cough ? 2 view chest x-ray ? Comparison: CT - CHEST WITHOUT CONTRAST [id number] - 12/22/07 00:00 EST ? Findings: ?? [...] 11/27/24 1337 ? DD/ 1335 ? TD/TT: 11/27/24 1335 ? Head Of Talent Management: ? Procedure Note Ezekiel, Image - 11/27/2024 [place] [address] XRay Report Signed Patient: Ese MendozaMR#: [id number] 8 : 1960Acct:[id number] Age/Sex: 64 / FADM Date: 11/27/24 Loc: HO.ED Attending Dr: Ordering Physician: Shakira Godinez Date of Service: 11/27/24 Procedure(s): XR chest 2V Accession Number(s): [id number] cc: Shakira Godinez; Maranda Serna MD CLINICAL HISTORY: cough 2 view chest x-ray Comparison: CT - CHEST WITHOUT CONTRAST [id number] - 2/10/17 00:00 EST Findings: The lungs are clear. Heart size is normal. No acute fracture. IMPRESSION: 1. No acute findings. This document has been electronically signed by: Serina Nolan MD on 11/27/2024 13:35:59 Dictated By: Serina Nolan MD Signed By: <Electronically signed by Serina Nolan MD in OV> 11/27/24 1337 DD/ 1335 TD/TT: 11/27/24 1335 Head Of Talent Management: [facility] External Provider IMG XR PROCEDURES Edited Result - Final documented in this encounter Visit Diagnoses Not on filedocumented in this encounter Additional Health Concerns Assessment Noted Time PHQ-9 Depression Total Score: 6 10/23/20 22 10:04 AM EST documented as of this encounter Care Teams Bleach Boiler Filler Relationship Specialty Start Date End Date Maranda Serna MD [address] [place] [address] PCP - General Family Medicine 08/01/21 documented as of this encounter
--- OUTSIDE RECORDS SUMMARY | 2024-12-22 15:18 | XMS_ITS | Patient Health Record ---
Author Organization [employer]. Address [address] [facility] [id number] [place] [address] Care Team Providers Care Spanish Teacher Name Role Phone Larisa Saldana Primary Care Provider ALLERGIES Allergen (clinical drug ingredient) Drug/Non Drug Allergy documented on EMR Reaction Allergy Type Onset Date Status pork allergenic extract Pork (Diagnostic) Unknown Drug All ergy Active REASON FOR REFERRAL No Information MEDICATIONS Medication SIG (Take, Route, Frequency, Duration) Notes Start Date End Date Status Azithromycin 250 MG 2 tablets on the , then 1 tablet daily for 4 days Orally Once a day for 5 day(s) 09/07/2019 Not-Taki ng Flonase 50 MCG/ACT 1 spray in each nost ril Nasally Once a day 12/10/2018 Not-Taking Methotrexate 2.5 mg take 6 tab once a we ek on friday Orally 30 days Orally as directed for 90 days Active Tresiba FlexTouch 100 UNIT/ML INJECT 80 UNITS UNDER THE SKIN EVERY NIGHT AT BEDTIME for 75 Active Aspir-81 Not-Taking metFORMIN HCl ER 500 MG TAKE 2 TABLETS B Y MOUTH TWICE DAILY WITH MEALS for 90 days Active guaiFENesin 100 MG/5ML 10 ml as needed O rally every 4 hrs for 30 days 08/01/2020 Active ZyrTEC-D Allergy & Congestion 5-120 MG 1 tablet as needed Orally Once a day for 30 day(s) 10/01/2019 Active Benzonatate 100 MG 1 capsule as needed Orally Three times a day for 30 day(s) 08/01/2020 Active Paxil 5 mg 1 1/2 tablet Orally Once a day for 30 day(s) 06/19/2020 Active ProAir HFA 108 (90 Base) MCG/ACT 2 puffs as needed Inhalation every 4 hrs for 30 days 12/30/2018 Active Ammonium Lactate 12 % 1 application to affected area Externally Twice a day for 6 months 04/13/2019 Active Metoprolol Succinate ER 25 mg 1 tablet Orally Once a day for 90 Active Paxil 10 MG 1 tablet in the morn ing Orally Once a day for 30 day(s) 06/20/2020 Active Levocetirizine Dihydrochloride 5 MG 1 tablet in the evening Orally Once a day for 30 day(s) 09/07/2019 Active Atorvastatin Calcium 20 MG 1 tablet Orally once in the evening for 30 days Active HumaLOG KwikPen 100 UNIT/ML INJECT 14 UNITS UNDER THE SKIN THREE TIMES DAILY WITH MEALS for 31 Active Aspirin 81 81 MG 1 tablet Orally Once a day for 30 day(s) Active HumaLOG KwikPen 100 UNIT/ML inj 14 units Subcutaneous TID with meals for 90 days Active Ranitidine HCl 150 mg 1 capsule at bedti me Orally Once a day for 90 Active Folic Acid 1 mg 1 tablet Orally Once a day for 90 Active Tresiba FlexTouch 100 UNIT/ML INJECT 80 UNITS SUBCUTANEOUSLY AT BEDTIME Subcutaneous at bedtime for 90 days Active Lisinopril 2.5 MG 1 tablet Orally Once a day for 90 Active Montelukast Sodium 10 MG TAKE 1 TABLET B Y MOUTH EVERY EVENING for 90 Active Singulair 10 mg 1 tablet Orally Once a day in the evening for 90 days Not-Taking SOCIAL HISTORY Tobacco Use: Social History Observation Description Date Details (start date - stop date) Never Smoker NA - NA Sex Assigned At : Social History Observation Description Sex Assigned At Unknown Tobacco Use/Smoking Question Answer Notes Are you a nonsmoker Alcohol Screen Question Answer Notes Did you have a drink containing alcohol in the p ast year? No Points 0 Interpretation Negative PROBLEMS Problem Type ICD Code Onset Dates Problem Status W/U Status Risk SNOMED Code Notes Problem Type 2 diabetes mellitus without complications (E11.9) Active confirmed 512821012 Problem Type 2 diabetes mellitus with diabetic polyneuropathy (E11.42) Active confirmed 31857226 Problem Other chronic pain (G89.29) Active confirmed 70445440 Problem Age-related nuclear cataract, bilateral (H25.13) Active confirmed Nuclear senile cataract (485722458) Problem Diabetes (E11.9) Active confirmed Diabe carlos mellitus without complication (211751777) Problem Dyslipidemia (E78.5) Active confirmed 925567588 Problem HTN (hypertension) (I10) Active confirmed Hypertension (96382051) Problem Arthritis (M19.90) Active confirmed 372 3001 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 (Z79.4) Active confirmed 033394252 Problem Controlled diabetes mellitus with diabetic neuropathy (E11.40) Active confirmed Diabetic peripheral neuropathy associated with type 2 diabetes mellitus (8600397891257) Problem Type 2 diabetes mellitus with mild nonproliferative diabetic retinopathy without macular edema, bilateral (E11.3293) Active confirmed Mild nonproliferative retinopathy due to type 2 diabetes mellitus (477588435924077) Problem Left retinal detachment (H33.22) Active confirmed Serous r etinal detachment (00308589) Problem Menopausal and postmenopausal disorder (N95.9) Active confirmed 854625088 PLAN OF TREATMENT Pending Test Test Name Order Date X ray : Chest (PA lateral) 10/01/2019 X ray : Foot, left 3v 06/16/2019 X ray : Foot, right 3v 06/16/2019 TSH W/REFLEX TO FT4 02/15/2020 CBC (INCLUDES DIFF/PLT) 02/15/2020 Insurance Providers Payer Name Payer Address Payer Phone Subscriber Number Group Number Insured Name Patient Relationship to Insured Coverage Start Date Coverage End Date MACKENZIE Hughes [address] [place] [address] [id number] Ese Mendoza Self - patient is the insured MEDICAID DENTAL [address] [place] [address] [id number] Ese Mendoza Self - patient is the insured MEDICAL (GENERAL) HISTORY Medical History History ICD Code DM II RANJAN Pulmonary Artery Hypertesion Mild Mitral Incompetence Moderate carotid artery disease Surgical History Surgery Date(Month/Year) gallbladder 1982 tubal 1984 foot surgery metal plate right foot clef t 2011 breast reduction 2009 partial hysto,left ovaries Hospitalization History Reason Date(Month/Year) for above
--- OUTSIDE RECORDS SUMMARY | 2024-12-22 15:18 | XMS_ITS | Encounter Summary ---
Author Organization [facility] Address [address] [facility] [address] [place] [address] Phone Care Team Providers Care Timber Repairer Name Role Phone Maranda Srena MD Primary Care Provider [phone] Encounter Details Date Type Department Care Team (Late st Contact Info) Description 05/17/2024 Office Communication [facility] [address] [place] [address] [place] [address] Marci Gleason ARNP [address] [facility] [address] [place] [address] Social History Tobacco Use Types Packs/Day Years Used Date Smoking Tobacco: Never Smokeless Tobacco: Never Alcohol Use Standard Drinks/Week Comments Yes 0 (1 standard drink = 0.6 oz pure alcohol) Intermittently Hot Amanda. Tea with [place] only if sick Comments Unknown Sex and Gender Information Value Date Recorded Sex Assigned at Not on file Legal Sex Female 5:18 PM EST Gender Identity Not on file Sexual Orientation Not on file documented as of this encounter Miscellaneous Notes * Telephone Encounter - Marci Gleason ARNP - 05/20/2024 1:14 PM EDT Thanks! documented in this encounter Plan of Treatment Not on file documented as of this encounter Visit Diagnoses Not on filedocumented in this encounter Care Teams Timber Repairer Relationship Specialty Start Date End Date Maranda Serna MD [address] [place] [address] [phone] PCP - General Family Medicine 08/24/21 documented as of this encounter
--- OUTSIDE RECORDS SUMMARY | 2024-12-22 15:18 | XMS_ITS | Encounter Summary ---
Author Organization [employer] Address [address] [facility] [address] [place] [address] Care Team Providers Care Plastic Installer Name Role Phone Maranda Serna MD Primary Care Provider [phone] Reason for Visit * Reason Onset Date Comments Durable Medical Equipment 05/26/2024 Encounter Details Date Type Department Care Team ([facility] st Contact Info) Description 05/26/2024 Telephone [facility] [address] [place], [place] [phone] Maranda Serna MD [address] [place], [place] [phone] Durable Medical Equipment Social History Tobacco Use Types Packs/Day Years [...] encounter Miscellaneous Notes * Telephone Encounter - Carrie Stanley - 06/08/2024 3:11 PM EDT Tc from pt requesting status on PA needed for Walker Rolator which was prescribed by orthopedic Need Management care plan, POFC. * Telephone Encounter - Tray Jordan - 05/28/2024 1:48 PM EDT Tc from patient calling in regards to the message below states had already called insurance for a approval for the DME all is needed is the script to be sent * Telephone Encounter - Nagi Schwartz - 05/26/2024 12:41 PM EDT Tc from pt is requesting approval for a rollator walker. Pt stated she was advised by rackman jigneshow up with orthopedic and they prescribed a walker for the pt. Pt wants script send over to [facility] [address] If any questions you can contact pt at [phone]. documented in this encounter Plan of Treatment Upcoming Encounters Date Type Department Care Team ([facility] st Contact Info) Description 01/17/2025 11:00 AM EDT Office Visit [facility] [address] [place] [address] Maranda Serna MD [address] [place] [address] documented as of this encounter Visit Diagnoses Not on filedocumented in this encounter Additional Health Concerns Assessment Noted Time PHQ-9 Depression Total Score: 6 10/23/20 22 10:04 AM EST documented as of this encounter Care Teams Plastic Installer Relationship Specialty Start Date End Date Maranda Serna MD [address] [place] [address] PCP - General Family Medicine 08/01/21 documented as of this encounter
--- OUTSIDE RECORDS SUMMARY | 2024-12-22 15:18 | XMS_ITS | Encounter Summary ---
Author Organization [employer] Address [address] [facility] [address] [place] [address] Care Team Providers Care Drop Shipment Clerk Name Role Phone Maranda Serna MD Primary Care Provider [phone] Reason for Visit * Reason Onset Date Comments Appointment Request 05/28/2024 Encounter Details Date Type Department Care Team ([facility] st Contact Info) Description 05/28/[address] [facility] [address] [place], [place] [phone] Maranda Serna MD [address] [place], [place] [phone] Appointment Request Social History Tobacco Use Types Packs/Day Years [...] encounter Miscellaneous Notes * Telephone Encounter - Tray Jordan - 05/28/2024 1:49 PM EDT Tc from patient calling to request a appt with provider and would like the same date as spouse on 07/13 documented in this encounter Plan of Treatment Upcoming Encounters Date Type Department Care Team (Late st Contact Info) Description 01/17/2025 11:00 AM EDT Office Visit [facility] [address] [place] [address] Maranda Serna MD [address] [place] [address] documented as of this encounter Visit Diagnoses Not on filedocumented in this encounter Additional Health Concerns Assessment Noted Time PHQ-9 Depression Total Score: 6 10/23/20 22 10:04 AM EST documented as of this encounter Care Teams Drop Shipment Clerk Relationship Specialty Start Date End Date Maranda Serna MD [address] [place] [address] PCP - General Family Medicine 08/01/21 documented as of this encounter
--- OUTSIDE RECORDS SUMMARY | 2024-12-22 15:18 | XMS_ITS | Clinical Summary ---
Author Organization [facility] Address [address] [place] [phone] Phone Care Team Providers Care Patient Support Associate Name Role Phone Maranda Serna MD Primary Care Provider [phone] Allergies Active Allergy Reactions Criticality Noted Date Comments Cetirizine 10/01/2021 Nickel Rash Low 02/03/2020 Pork Allergy Hives,Itching Medium 06/25/2018 Medications acetaminophen (TYLENOL) 325 MG tablet Take 650 mg by mouth every 6 (six) hours if needed Active albuterol HFA (PROVENTIL HFA;VENTOLIN HFA) 108 (90 Base) MCG/ACT inhaler Inhale 1-2 puffs if needed 12/25/19 19 Active Cranberry 500 MG capsule Take 1 tablet by mouth twice a day Active fluticasone (FLONASE) 50 MCG/ACT nasal spray USE 1 SPRAY IN EACH NOSTRIL ONCE D 09/06/20 18 Active Tresiba FlexTouch 100 UNIT/ML injection Inject 90 Units under the skin every night 09/24/20 21 Active pantoprazole (PROTONIX) 40 MG EC tablet Take 40 mg by mouth 1 (one) time each day 07/27/20 21 Active cyanocobalamin (VITAMIN B-12) 100 MCG tablet See Instructions, Per pt., takes 5000 mcg daily?, 0 Refills, Maintenance, 11/17/20 13:14:00 EST, Partial fill upon patient request if the prescription is for a schedule II opioid drug. 11/17/19 21 Active Cholecalciferol (Vitamin D3) 1.25 MG (46917 UT) capsule See Instructions, Per pt., takes 125 mg daily, 0 Refills, Maintenance, 11/17/20 13:11:00 EST, Partial fill upon patient request if the prescription is for a schedule II opioid drug. 11/17/19 21 Active Magnesium 400 MG tablet Take 400 mg by mouth in the morning and 400 mg in the evening. Active Insulin Lispro, 1 Unit Dial, 100 UNIT/ML solution pen-injector INJECT 14 UNITS SUBCUTANEOUSLY THREE TIMES DAILY BEFORE MEALS 08/25/20 23 Active gabapentin (Neurontin) 100 MG capsule Take 1 capsule (100 mg total) by mouth in the morning and 1 capsule (100 mg total) in the evening and 1 capsule (100 mg total) before bedtime. 90 capsule 11 09/16/20 23 Active Dapagliflozin Propanediol (Farxiga) 10 MG tabletIndication s:Type 2 diabetes mellitus with diabetic chronic kidney disease (HCC),Chronic kidney disease, stage 4 (severe) (HCC),Pulmonary arterial hypertension (HCC) Take 10 mg by mouth 1 (one) time each day 90 tablet 3 12/08/19 24 Active Additional Information Patient taking differently: 5 mgOral Daily, Reported on 05/17/2024 diphenhydrAMINE (BENADRYL) 25 MG capsule Take 25 mg by mouth every 6 (six) hours if needed for itching Active Active Problems Problem Noted Date Diagnosed Date Stage 3b chronic kidney disease 05/19/2024 Stage 3a chronic kidney disease 07/23/2022 Atrial fibrillation 12/25/2021 Cobalamin deficiency 12/25/2021 Retinopathy due to diabetes mellitus 12/25/2021 Renal stone 12/25/2021 Vitamin D deficiency 12/25/2021 Type 2 diabetes mellitus wit h diabetic chronic kidney disease 10/01/2021 Anemia in chronic kidney disease 10/01/2021 Diabetic peripheral neuropat hy associated with type 2 diabetes mellitus 11/22/2019 Type 2 diabetes mellitus 02/09/2019 Overview (10/01/2021): Last Assessment & Plan: It was a [...] may indicate a need for medication adjustment. Pulmonary arterial hypertension 11/19/2018 Resolved Problems Problem Noted Date Diagnosed Date Resolved Date Gastroesophageal reflux disease 12/25/2021 07/22/2022 Incontinence 12/25/2021 07/22/2022 Seasonal allergy 12/25/2021 07/22/2022 Chronic kidney disease, stage 4 (severe) 10/01/2021 12/31/2021 Essential hypertension 11/09/201910/01 Obstructive sleep apnea syndrome 11/09/2019 07/22/2022 Arthritis 03/03/2019 07/22/2022 Pulmonary hypertension 12/31/201807/22 Stenosis of bilateral carotid arteries 12/31/2018 07/22/2022 Multiple joint pain 10/06/2018 07/22/20 22 Overview (10/01/2021): Last Assessment & Plan: - Based on her hx of psorasis, asymmetric polyarthritis, back pain, and arthralgias relieved by MTX favor this is psoriatic arthritis superimposed on osteoarthritis. 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 - Will obtain lab work. Also curious to see radiographic imaging of the hands, feets, SI and lumbar spine. Will obtain interval history from insurance verification clerk Karlee Le. - RTC in 4 months - she is to continue with mtx 4 tabs qweekly and folic acid Ulcer of foot 07/19/2011 07/22/2022 Immunizations Name Administration Dates Next Due Influenza (IM) Preservative Free 01/01/2021 Pneumococcal Polysaccharide 01/01/2021 Family History Medical History Relation Comments Cancer Father Diabetes Father Heart disease Father Diabetes Mother Relation Status Comments Father Mother Social History Tobacco Use Types Packs/Day Years Used Date Smoking Tobacco: Never Smokeless Tobacco: Never Tobacco Cessation:Counseling Given: No Alcohol Use Standard Drinks/Week Comments Yes 0 (1 standard drink = 0.6 oz pure alcohol) Intermittently Hot Amanda. Tea with [place] only if sick Comments Unknown Sex and Gender Information Value Date Recorded Sex Assigned at Not on file Legal Sex Female 5:18 PM EST Gender Identity Not on file Sexual Orientation Not on file Last Filed Vital Signs Vital Sign Reading Time Taken Comments Blood Pressure 126/64 05/17/2024 2:53 PM EDT Pulse 91 05/17/2024 2:53 PM EDT Temperature - - Respiratory Rate - - Oxygen Saturation 95% 01/13/2024 2:18 PM EST Inhaled Oxygen Concentration - - Weight 94.9 kg (209 lb 4.8 oz) 05/17/2024 2:53 P M EDT Height 157.5 cm (5' 2 ) 09/16/2023 3:07 PM EST Body Mass Index 38.28 09/16/2023 3:07 PM EST Plan of Treatment Health Maintenance Due Date Last Done Comments Breast Cancer Screening 1960 Colorectal Cancer Screening: Annual FOBT 2009 Colorectal Cancer Screening: Colonoscopy 2009 Colorectal Cancer Screening: Sigmoidoscopy 2009 Diabetes: Ophthalmology Exam 08/24/2021 Diabetes: Pedal Pulse Checked 08/24/2021 Diabetes: Sensory Foot Exam 08/24/2021 Diabetes: Visual Foot Exam 08/24/2021 Diabetes: Hemoglobin A1C 03/29/2024 024, 12/16/2022, 02/09/2019 Influenza Vaccine (#1) 2024 , 09/24/2021, 01/01/2021 Hepatitis B Vaccine Aged Out 09/23/2023, 12/16/2022, 07/08/2022 No longer eligible based on patient's age to complete this topic Pneumococcal Vaccine: Pediatrics (0 to 5 Years) and At-Risk Patients (6 to 64 Years) Completed 09/23/2023, 01/01/2021 Insurance [place]ID [place] Care Teams Patient Support Associate Relationship Specialty Start Date End Date Maranda Serna MD [address] [place] [id number] PCP - General Family Medicine 08/24/21
== END 2024-12-22 14:50 | disposition home or self-care (01) ==
PROVIDERS: PCP Family Medicine
DX: Z98.890 Other specified postprocedural states (principal); I21.4 Non-ST elevation (NSTEMI) myocardial infarction; R07.9 Chest pain, unspecified; E11.9 Type 2 diabetes mellitus without complications; Z09 Encounter for follow-up examination after completed treatment for conditions other than malignant neoplasm
CPT/HCPCS: 93010; 99214

== ENCOUNTER → 2024-12-22 13:58 | Outpatient (BNVA) | payer MEDICAID, SELFPAY | PROVIDERS: PCP Family Medicine | DX: I21.4 Non-ST elevation (NSTEMI) myocardial infarction (principal); R07.9 Chest pain, unspecified; E11.9 Type 2 diabetes mellitus without complications; Z98.890 Other specified postprocedural states; R00.0 Tachycardia, unspecified; R94.31 Abnormal electrocardiogram [ECG] [EKG] | CPT/HCPCS: 93005; 99212 ==

== ENCOUNTER 2024-12-23 13:00 | Outpatient (REF) | payer MEDICAID, SELFPAY ==
--- OUTSIDE RECORDS SUMMARY | 2024-12-23 13:51 | XMS_ITS | Encounter Summary ---
Author Organization [employer] Address 75 [facility] 7t [place] [address] Care Team Providers Care Cardiac Cath Lab Radiology Technologist Name Role Phone Maranda Serna MD Primary Care Provider [phone] Reason for Visit * Reason Onset Date Comments Durable Medical Equipment 05/26/2024 Encounter Details Date Type Department Care Team ([facility] st Contact Info) Description 05/26/2024 Telephone [facility] MEDICINE [address] [place], [place] [phone] Maranda Serna MD [address] [place], [place] [phone] Durable Medical Equipment Social History Tobacco Use [...] walker. Pt stated she was advised by toddler caregiver jigneshow up with orthopedic and they prescribed a walker for the pt. Pt wants script send over to [facility] [address] If any questions you can contact pt at [phone]. documented in this encounter Plan of Treatment Upcoming Encounters Date Type Department Care Team ([facility] st Contact Info) Description 01/17/2025 11:00 AM EDT Office Visit [facility] MEDICINE [address] [place] [address] Maranda Serna MD [address] [place] [address] documented as of this encounter Visit Diagnoses Not on filedocumented in this encounter Additional Health Concerns Assessment Noted Time PHQ-9 Depression Total Score: 6 10/23/20 22 10:04 AM EST documented as of this encounter Care Teams Cardiac Cath Lab Radiology Technologist Relationship Specialty Start Date End Date Maranda Serna MD [address] [place] [address] PCP - General Family Medicine 08/01/21 documented as of this encounter
--- OUTSIDE RECORDS SUMMARY | 2024-12-23 13:51 | XMS_ITS | Encounter Summary ---
Author Organization [employer] Address 75 [facility] 7t [place] [address] Care Team Providers Care Cable Tv Installer Name Role Phone Maranda Serna MD Primary Care Provider [phone] Reason for Visit * Reason Comments Med Refill Encounter Details Date Type Department Care Team (Late st Contact Info) Description 11/19/2023 Refill [facility] [address] [place], [place] [phone] Yesica Naylor MD [address] [place] [address] Social History Tobacco Use Types Packs/Day Years [...] Description 01/17/2025 11:00 AM EDT Office Visit [facility] [address] [place] [address] Maranda Serna MD 230 [place] [address] documented as of this encounter Visit Diagnoses Not on filedocumented in this encounter Additional Health Concerns Assessment Noted Time PHQ-9 Depression Total Score: 6 10/23/20 22 10:04 AM EST documented as of this encounter Care Teams Cable Tv Installer Relationship Specialty Start Date End Date Maranda Serna MD [address] [place] [phone] PCP - General Family Medicine 08/01/21 documented as of this encounter
--- OUTSIDE RECORDS SUMMARY | 2024-12-23 13:51 | XMS_ITS | Encounter Summary ---
Author Organization [employer] Address [address] [facility] [address] 7t [place] [address] Care Team Providers Care Food Checker Name Role Phone Maranda Serna MD Primary Care Provider [phone] Reason for Visit * Reason Onset Date Comments December recall 11/25/2024 Encounter Details Date Type Department Care Team ([facility] st Contact Info) Description 11/25/2024 Telephone [facility] [address] [place], [place] [phone] Ayse Arce [place] December recall Social History [...] Description 01/17/2025 11:00 AM EDT Office Visit [facility] [address] [place] [address] Maranda Serna MD 230 [place] [address] documented as of this encounter Visit Diagnoses Not on filedocumented in this encounter Additional Health Concerns Assessment Noted Time PHQ-9 Depression Total Score: 6 10/23/20 22 10:04 AM EST documented as of this encounter Care Teams Food Checker Relationship Specialty Start Date End Date Maranda Serna MD 230 [place] [address] PCP - General Family Medicine 08/01/21 documented as of this encounter
--- OUTSIDE RECORDS SUMMARY | 2024-12-23 13:51 | XMS_ITS | Clinical Summary ---
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 - Will obtain lab work. Also curious to see radiographic imaging of the hands, feets, SI and lumbar spine. Will obtain interval history from telegraph and teletype operator Karlee Le. - RTC in 4 months [...] pure alcohol) Intermittently Hot Amanda. Tea with Ida only if sick Comments Unknown Sex and [...] Insurance [place] Care Teams Mechanic/Welder Relationship Specialty Start Date End Date Maranda Serna MD [address] [place] [phone] PCP - General Family Medicine 08/24/21
--- OUTSIDE RECORDS SUMMARY | 2024-12-23 13:51 | XMS_ITS | Encounter Summary ---
Author Organization [employer] Address 75 [facility] 7t [place] [address] Care Team Providers Care Lunchroom Supervisor Name Role Phone Maranda Serna MD Primary Care Provider [phone] Reason for Visit * Reason Comments Transition Of Care (Tcm) HDF- Unschedule d second LVM Encounter Details Date Type Department Care Team ([facility] st Contact Info) Description 12/02/2024 Patient Outreach [facility] 230 [place], [place] [phone] Maranda Serna MD 230 [place], [place] [phone] Transition Of Care (Tcm) (HDF- Unscheduled second [...] 12/02/24 0819 Hospital Discharges and Admission for [facility] Type of Visit Hospital Admission Date of Admission/Visit 11/30/24 Date of Discharge 12/01/24 Facility [facility] Diagnosis NSTEMI, initial episode of care,Acute bronchitis [...] Wednesdays, and Walk-In Urgent Care Located in [facility]. Patient provided with after-hours line for [facility], , which offer night time triage service and option to transfer to wood preparation supervisor provider if needed. CC will await return call from the patient. documented in this encounter Plan of Treatment Upcoming Encounters Date Type Department Care Team (Late st Contact Info) Description 01/17/2025 11:00 AM EDT Office Visit [facility] [address] [place] [address] Maranda Serna MD 230 [place] [address] documented as of this encounter Visit Diagnoses Not on filedocumented in this encounter Additional Health Concerns Assessment Noted Time PHQ-9 Depression Total Score: 6 10/23/20 22 10:04 AM EST documented as of this encounter Care Teams Lunchroom Supervisor Relationship Specialty Start Date End Date Maranda Serna MD [address] [place] [phone] PCP - General Family Medicine 08/01/21 documented as of this encounter
--- OUTSIDE RECORDS SUMMARY | 2024-12-23 13:51 | XMS_ITS | Encounter Summary ---
Author Organization [employer] Address 75 [facility] 7t [place] [address] Care Team Providers Care Hydroelectric Plant Structural Engineer Name Role Phone Maranda Serna MD Primary Care Provider [phone] Reason for Visit * Reason Comments Transition Of Care (Tcm) HDF- Unschedule d THIRD LVM Encounter Details Date Type Department Care Team ([facility] st Contact Info) Description 12/08/2024 Telephone [facility] [address] [place], [place] [phone] Maranda Serna MD 230 [place], [place] [phone] Transition Of Care (Tcm) (HDF- Unscheduled THIRD [...] 12/08/24 0800 Hospital Discharges and Admission for [facility] Type of Visit Hospital Admission Date of Admission/Visit 11/27/24 Date of Discharge 11/30/24 [facility] Diagnosis NSTEMI (non-ST elevated myocardial infarction) [...] Wednesdays, and Walk-In Urgent Care Located in [facility]. Patient provided with after-hoursline for [facility], , which offer night time triage service and option to transfer to on callprovider if needed. CC will await return call from the patient. documented in this encounter Plan of Treatment Upcoming Encounters Date Type Department Care Team (Late st Contact Info) Description 01/17/2025 11:00 AM EDT Office Visit [facility] [address] [place] [address] Maranda Serna MD [address] [place] [address] documented as of this encounter Visit Diagnoses Not on filedocumented in this encounter Additional Health Concerns Assessment Noted Time PHQ-9 Depression Total Score: 6 10/23/20 22 10:04 AM EST documented as of this encounter Care Teams Hydroelectric Plant Structural Engineer Relationship Specialty Start Date End Date Maranda Serna MD 230 [place] [address] PCP - General Family Medicine 08/01/21 documented as of this encounter
--- OUTSIDE RECORDS SUMMARY | 2024-12-23 13:51 | XMS_ITS | Encounter Summary ---
Author Organization [facility] Address [address] [facility] [address] [facility] [address] [place] [address] Phone Care Team Providers Care Cage Operator Name Role Phone Maranda Serna MD Primary Care Provider [phone] Encounter Details Date Type Department Care Team (Late st Contact Info) Description 05/17/2024 Office Communication [facility] [address] [place] [address] [place] [address] Marci Gleason ARNP [address] [facility] [address] [place] [address] Social History Tobacco Use Types Packs/Day Years Used Date Smoking Tobacco: Never Smokeless Tobacco: Never Alcohol Use Standard Drinks/Week Comments Yes 0 (1 standard drink = 0.6 oz pure alcohol) Intermittently Hot Amanda. Tea with [place] only if sick Comments Unknown Sex and [...] on filedocumented in this encounter Care Teams Cage Operator Relationship Specialty Start Date End Date Maranda Serna MD [address] [place] [phone] PCP - General Family Medicine 08/24/21 documented as of this encounter
--- OUTSIDE RECORDS SUMMARY | 2024-12-23 13:51 | XMS_ITS | Encounter Summary ---
Author Organization [employer] Address 75 [facility] 7t [place] [address] Care Team Providers Care Woven Wood Shade Assembler Name Role Phone Maranda Serna MD Primary Care Provider [phone] Reason for Visit * Reason Onset Date Comments Hospital Follow-up 12/07/2024 Encounter Details Date Type Department Care Team ([facility] Contact Info) Description 12/07/2024 Telephone [facility] 230 [place], [place] [phone] Maranda Serna MD [address] [place], [place] [phone] Hospital Follow-up Social History Tobacco Use Types [...] follow up. Pt requested a call back. [phone] (Pt Contact) documented in this encounter Plan of Treatment Upcoming Encounters Date Type Department Care Team (Late st Contact Info) Description 01/17/2025 11:00 AM EDT Office Visit [facility] MEDICINE [address] [place] [address] Maranda Serna MD 230 [place] [address] documented as of this encounter Visit Diagnoses Not on filedocumented in this encounter Additional Health Concerns Assessment Noted Time PHQ-9 Depression Total Score: 6 10/23/20 22 10:04 AM EST documented as of this encounter Care Teams Woven Wood Shade Assembler Relationship Specialty Start Date End Date Maranda Serna MD [address] [place] [address] PCP - General Family Medicine 08/01/21 documented as of this encounter
--- OUTSIDE RECORDS SUMMARY | 2024-12-23 13:51 | XMS_ITS | Encounter Summary ---
Author Organization [employer] Address 75 [facility] 7t [place] [address] Care Team Providers Care Deputy Director Of Public Works Name Role Phone Maranda Serna MD Primary Care Provider [phone] Encounter Details Date Type Department Care Team ([facility] Contact Info) Description 11/27/2024 Orders Only [facility] External Provider, [facility] Social History Tobacco Use Types Packs/Day [...] Description 01/17/2025 11:00 AM EDT Office Visit [facility] [address] [place] [address] Maranda Serna MD [address] [place] [address] documented as of this encounter Procedures Procedure [...] EST Narrative 11/27/2024 8:30 PM EST ? [facility] ?[address] ?[place] [address] ? [address] Scan Report ? Signed ? Patient: Reji,Ese ?MR#: [id number] ?? 8 ? : 1960 ?Acct:[id number] ? Age/Sex: 64 / F ?ADM Date: 11/27/24 ? Loc: HO.ED ? Attending Dr: ? Ordering Physician: Rajwinder Bhatti CNP ?? Date of Service: 11/27/24 ?? Procedure(s): CT chest wo IV con ?? Accession Number(s): [id number] ? cc: Rajwinder Bhatti CNP; Maranda Serna MD ? Report Number: ?? [id number]: Total DLP = ??543.00 mGy-cm ? CLINICAL HISTORY: cp, sob ? CT chest without contrast ? Comparison: CT - CHEST WITHOUT CONTRAST [id number] - 12/22/07 00:00 EST ? Findings: The [...] ? DD/ 27 ? TD/TT: 11/27/242027 ? Valve Inserter: ? Procedure Note Constantin Falcon - 11/27/[address] [place] [address] [address] Scan Report Signed Patient: Ese MendozaMR#: [id number] 8 : 1960Acct:[id number] Age/Sex: 64 / FADM Date: 11/27/24 Loc: HO.ED Attending Dr: Ordering Physician: Rajwinder Bhatti CNP Date of Service: 11/27/24 Procedure(s): CT chest wo IV con Accession Number(s): [id number] cc: Rajwinder Bhatti CNP; Maranda Serna MD Report Number: [id number]: Total DLP = 543.00 mGy-cm CLINICAL HISTORY: cp, sob CT chest without contrast Comparison: CT - CHEST WITHOUT CONTRAST [id number] - 12/22/07 00:00 EST Findings: The prior [...] in OV> 11/27/242028 DD/ 27 TD/TT: 11/27/242027 Valve Inserter: [facility] External Provider IMG CT PROCEDURES Edited Result - Final * Lactic Acid (11/27/2024 5:48 PM EST) [facility] Lactic Acid 1.2 0.5 - 2.0 mmol/L [facility] 11/27/2024 5:48 PM EST 11/27/2024 5:54 PM EST Generic External Data Provider LAB BLOOD ORDERAB LES Final Result [facility] [address] [place] [phone] * (ABNORMAL) High Sensitivity Troponin I (11/27/2024 4:48 PM EST) Pathologist [facility] TROPONIN I HIGH SENSITIVITY 743.6(HH) <3.5 - 17.0 ng/L [facility] Comment:Critical value for t est(s): TROP Results called to and readback by: VICKIE Person calling: XIN Date: 11/27/24Time: 1717The Castillo high sensitivity Troponin-I results should beused in conjunction with other diagnostic information suchas ECG, clinical observations and information, and patientsymptoms to aid in the diagnosis of CO. 11/27/2024 4:48 PM EST 11/27/2024 4:52 PM EST Generic External Data Provider LAB BLOOD ORDERAB LES Final Result Performing Organization Address [facility]/ZIP Co de Phone Number [facility] [address] [place] [phone] * (ABNORMAL) C-reactive Protein (11/27/2024 2:07 PM EST) [facility] C Reactive Protein 4.57(H) < or = 0.50 mg/dL [facility] 11/27/2024 2:07 PM EST 11/27/2024 2:10 PM EST [employer] External Data Provider LAB BLOOD ORDERAB LES Final Result Performing Organization Address [facility]/ZIP Co de Phone Number [facility] [address] [place] [phone] * (ABNORMAL) Comprehensive Metabolic Panel (11/27/2024 2:07 PM EST) [facility] Sodium 140 135 - 145 mmol/L [facility] Potassium 4.0 3.3 - 5.1 mmol/L [facility] Chloride 108 96 - 108 mmol/L [facility] Carbon Dioxide 26 22 - 29 mmol/L [facility] Anion Gap 10(L) 12 - 20 [facility] Urea Nitrogen (BUN) 32(H) 9 - 16 mg/dL [facility] Creatinine, Serum 1.60(H) 0.5 - 1.4 mg/dL [facility] Creatinine Clr Calc Pharmacy 36.8 [facility] Comment:Provided height and weight: 157.48 cm,89.1 kg.eGFR (calculated from the MDRD study equation) and eCrCl(calculated from the Cockcroft-Gault equation) are based ondifferent parameters and may not yield comparable results.If eCrCl result is absurd, please check patient'sheight/weight. Estimated Glomerular Filt Rate 32 [facility] Comment:Chronic Kidney Disea se: Estimated GFR < 60 mL/min/1.49n1Knhkzl Kidney Disease: Estimated GFR < 15 mL/min/1.73m2 Glucose 149(H) 60 - 115 mg/dL [facility] Calcium 8.6 8.4 - 10.2 mg/dL [facility] Bilirubin, Total 0.4 0.0 - 1.0 mg/dL [facility] Aspartate Amino Transferase 22 5 - 31 U/L [facility] Alanine Aminotransferase 9 0 - 31 U/L [facility] Total Protein 6.7 6.5 - 8.0 g/dL [facility] Albumin Level 3.5 3.5 - 5.0 g/dL [facility] Alkaline Phosphatase 108 39 - 117 U/L [facility] 11/27/2024 2:07 PM EST 11/27/2024 2:10 PM EST us Generic External Data Provider LAB BLOOD ORDERAB LES Final Result [facility] [address] [place] [phone] * (ABNORMAL) B Type Natriuretic Peptide (BNP) (11/27/2024 2:06 PM EST) B Type Natriuretic Peptide 171(H) <100 pg/mL [facility] Comment:For those patients w ho are being treated with Natrecor(nesiritide, recombinant BNP), BNP testing should beperformed at least two hours post treatment in order toensure that only endogenous levels of BNP are detected. 11/27/2024 2:06 PM EST 11/27/2024 2:10 PM EST Generic External Data Provider LAB BLOOD ORDERAB LES Final Result Performing Organization Address [facility] Co de Phone Number [facility] [address] [place] [phone] * D Dimer High Sensitivity (11/27/2024 2:06 PM EST) Pathologist [facility] D Dimer High Sensitivity 204 NG/ML [facility] Comment:D-DIMER HS REFERENCE RANGENote: Our assay reports D-Dimer Units (D- DU).The cut-off value for venous thromboembolic (VTE) disease is230 ng/mL. This value has a very high negative predictivevalue when the patient has a low to moderate clinicalprobability of VTE.The upper limit of normal is 243 ng/mL. 11/27/2024 2:06 PM EST 11/27/2024 2:10 PM EST [employer] External Data Provider LAB BLOOD ORDERAB LES Final Result Performing Organization Address [facility] Co de Phone Number [facility] [address] [place] [phone] * (ABNORMAL) High Sensitivity Troponin I (11/27/2024 2:06 PM EST) Pathologist [facility] TROPONIN I HIGH SENSITIVITY 702.1(HH) <3.5 - 17.0 ng/L [facility] Comment:Critical value for t est(s): TROP Results called to and readback by: ABIMAEL Person calling: XIN Date: 11/27/24 Time:1435The Castillo high sensitivity Troponin-I results should beused in conjunction with other diagnostic information suchas ECG, clinical observations and information, and patientsymptoms to aid in the diagnosis of CO. 11/27/2024 2:06 PM EST 11/27/2024 2:10 PM EST Generic External Data Provider LAB BLOOD ORDERAB LES Final Result Performing Organization Address [facility] de Phone Number [facility] [address] [place] [phone] * Prothrombin Time-INR (11/27/2024 2:06 PM EST) Prothrombin Time 12.1 10.9 - 12.4 SEC [facility] INTERNATIONAL NORM RATIO 1.0 0.9 - 1.1 [facility] Comment:INTERNATIONAL NORMAL IZED RATIO (INR) [...] 2:06 PM EST 11/27/2024 2:10 PM EST [employer] External Data Provider LAB BLOOD ORDERAB LES Final Result Performing Organization Address [facility] de Phone Number [facility] [address] [place] [phone] * XR Chest 2 Views (11/27/2024 1:35 PM EST) Anatomical Region Laterality Modality Chest Radiographic Mary ging 11/27/2024 1:35 PM EST Narrative 11/27/2024 1:37 PM EST ? [facility] ?[address] ?[place] [address] ?XRay Report ? Signed ? Patient: Reji,Ese ?MR#: [id number] ?? 8 ? : 1960 ?Acct:[id number] ? Age/Sex: 64 / F ?ADM Date: 01/18/25 ? Loc: HO.ED ? Attending Dr: ? Ordering Physician: Shakira Godinez ?? Date of Service: 11/27/24 ?? Procedure(s): XR chest 2V ?? Accession Number(s): [id number] ? cc: Shakira Godinez; Maranda Serna MD ? CLINICAL HISTORY: cough ? 2 view chest x-ray ? Comparison: CT - CHEST WITHOUT CONTRAST [id number] - 12/22/07 00:00 EST ? Findings: ?? The lungs are clear. ?? Heart size is normal. ?? No acute fracture. ? IMPRESSION: ?? 1. No acute findings. ? This document has been electronically signed by: Serina Nolan MD on ?? 11/27/2024 13:35:59 ? Dictated By: ?Serina oNlan MD ? Signed By: ?<Electronically signed by Serina Nolan MD in OV> ? 11/27/24 1337 ? DD/ 1335 ? TD/TT: 11/27/24 1335 ? Valve Inserter: ? Procedure Note Ezekiel, Image - 11/27/2024 [place] [address] XRay Report Signed Patient: Ese MendozaMR#: [id number] 8 : 1960Acct:[id number] Age/Sex: 64 / FADM Date: 11/27/24 Loc: HO.ED Attending Dr: Ordering Physician: Shakira Godinez Date of Service: 11/27/24 Procedure(s): XR chest 2V Accession Number(s): [id number] cc: Shakira Godinez; Maranda Serna MD CLINICAL HISTORY: cough 2 view chest x-ray Comparison: CT - CHEST WITHOUT CONTRAST [id number] - 2/10/17 00:00 EST Findings: The lungs are clear. Heart size is normal. No acute fracture. IMPRESSION: 1. No acute findings. This document has been electronically signed by: Serina Nolan MD on 11/27/2024 13:35:59 Dictated By: eSrina Nolan MD Signed By: <Electronically signed by Serina Nolan MD in OV> 11/27/24 1337 DD/ 1335 TD/TT: 11/27/24 1335 Valve Inserter: [facility] External Provider IMG XR PROCEDURES Edited Result - Final documented in this encounter Visit Diagnoses Not on filedocumented in this encounter Additional Health Concerns Assessment Noted Time PHQ-9 Depression Total Score: 6 10/23/20 22 10:04 AM EST documented as of this encounter Care Teams Deputy Director Of Public Works Relationship Specialty Start Date End Date Maranda Serna MD [address] [place] [address] PCP - General Family Medicine 08/01/21 documented as of this encounter
--- OUTSIDE RECORDS SUMMARY | 2024-12-23 13:51 | XMS_ITS | Encounter Summary ---
Author Organization [employer] Address 75 [facility] 7t [place] [address] Care Team Providers Care Clam Bed Laborer Name Role Phone Maranda Serna MD Primary Care Provider [phone] Encounter Details Date Type Department Care Team ([facility] st Contact Info) Description 04/22/2023 Orders Only [facility] MEDICINE [address] [place] [address] Maranda Serna MD [address] [place] [address] Left foot pain (Primary Dx); Type 2 diabetes mellitus with hyperglycemia, with long-term current use of insulin ([facility]) Social History Tobacco Use Types [...] Description 01/17/2025 11:00 AM EDT Office Visit [facility] MEDICINE [address] [place] [address] Maranda Serna MD [address] [place] [address] documented as of this encounter Visit Diagnoses Diagnosis Left foot pain- Primary Pain in soft tissues of limb Type 2 diabetes mellitus with hyperglycemia, with long-term current use of insulin ([facility]) documented in this encounter Additional Health Concerns Assessment Noted Time PHQ-9 Depression Total Score: 6 10/23/20 22 10:04 AM EST documented as of this encounter Care Teams Clam Bed Laborer Relationship Specialty Start Date End Date Maranda Serna MD [address] [place] [address] PCP - General Family Medicine 08/01/21 documented as of this encounter
--- OUTSIDE RECORDS SUMMARY | 2024-12-23 13:51 | XMS_ITS | Encounter Summary ---
Author Organization [facility] Address [address] [place] [address] Care Team Providers Care Breaker Operator Name Role Phone Viet Sánchez Unavailable [phone] Viet Sánchez Primary Care Provider Encounter Details Date Type Department Care Team (Late st Contact Info) Description 05/22/2020 Scanned Document [facility] [address] [phone] Deja Rico, [place] [address] Social History Tobacco Use Types Packs/Day Years [...] on filedocumented in this encounter Care Teams Breaker Operator Relationship Specialty Start Date End Date Viet Sánchez PA [address] [place] [address] PCP - General 06/18/18 Viet Sánchez PA [address] [place] [address] 06/18/18 documented as of this encounter
--- OUTSIDE RECORDS SUMMARY | 2024-12-23 13:51 | XMS_ITS | Encounter Summary ---
Author Organization [facility]ly [facility] Address [address] [place] [address] Care Team Providers Care Hospital Plan Administrator Name Role Phone Viet Sánchez Unavailable [phone] Viet Sánchez Primary Care Provider Encounter Details Date Type Department Care Team (Late st Contact Info) Description 02/18/2020 Scanned Document [facility] [address] [place] [address] [phone] Provider, Sheryl, [address] [place] [address] Social History Tobacco Use Types Packs/Day Years [...] on filedocumented in this encounter Care Teams Hospital Plan Administrator Relationship Specialty Start Date End Date Viet Sánchez PA [address] [place] [address] PCP - General 06/18/18 Viet Sánchez PA [address] [place] [address] 06/18/18 documented as of this encounter
--- OUTSIDE RECORDS SUMMARY | 2024-12-23 13:51 | XMS_ITS | Encounter Summary ---
Author Organization [employer] Address [address] [facility] 7t [place] [address] Care Team Providers Care Teacher Emotionally Impaired Name Role Phone Maranda Serna MD Primary Care Provider [phone] Reason for Visit * Reason Onset Date Comments Appointment Request 05/28/2024 Encounter Details Date Type Department Care Team ([facility] st Contact Info) Description 05/28/[address] [facility] MEDICINE [address] [place], [place] [phone] Maranda Serna MD [address] [place], [place] [phone] Appointment Request Social History Tobacco Use Types [...] AM EDT Office Visit [facility] MEDICINE [address] [place] [address] Maranda Serna MD [address] [place] [address] documented as of this encounter Visit Diagnoses Not on filedocumented in this encounter Additional Health Concerns Assessment Noted Time PHQ-9 Depression Total Score: 6 10/23/20 22 10:04 AM EST documented as of this encounter Care Teams Teacher Emotionally Impaired Relationship Specialty Start Date End Date Maranda Serna MD [address] [place] [address] PCP - General Family Medicine 08/01/21 documented as of this encounter
--- OUTSIDE RECORDS SUMMARY | 2024-12-23 13:51 | XMS_ITS | Encounter Summary ---
Author Organization [facility] Address [address] [place] [address] Care Team Providers Care Wireless Internet Installer Name Role Phone Viet Sánchez Unavailable [phone] Viet Sánchez Primary Care Provider Encounter Details Date Type Department Care Team (Late st Contact Info) Description 02/02/2020 Prep for Surgery OPHTHALMOLOGY [address] [place] [address] Holland Hunt MD 85 [facility] [address] [facility] [place] [phone] Social History Tobacco Use Types Packs/Day Years [...] on filedocumented in this encounter Care Teams Wireless Internet Installer Relationship Specialty Start Date End Date Viet Sánchez PA [address] [place] [address] PCP - General 06/18/18 Viet Sánchez PA [address] [place] [address] 06/18/18 documented as of this encounter
--- OUTSIDE RECORDS SUMMARY | 2024-12-23 13:51 | XMS_ITS | Encounter Summary ---
Author Organization [employer] Address [address] [facility] 7t [place] [address] Care Team Providers Care Riverboat Master Name Role Phone Maranda Serna MD Primary Care Provider [phone] Reason for Visit * Reason Comments Transition Of Care (Tcm) HDF- unschedule d LVM Encounter Details Date Type Department Care Team ([facility] st Contact Info) Description 12/01/2024 Patient Outreach [facility] MEDICINE [address] [place], [place] [phone] Maranda Serna MD [address] [place] [address] Transition Of Care (Tcm) (HDF- unscheduled LVM [...] 12/01/24 0825 Hospital Discharges and Admission for [facility] Type of Visit Hospital Admission Date of Admission/Visit 11/27/24 Date of Discharge 11/30/24 [facility] Diagnosis NSTEMI (non-ST elevated myocardial infarction) [...] and Wednesdays,and Walk-In Urgent Care Located in [facility] of [facility]. Patient provided with after-hours line for [facility], , which offer night time triage service and option to transfer to trailer sections assembler provider if needed. CC scanned discharge summary into patient's chart. CC will place additional outreach call within2-5 business days. documented in this encounter Plan of Treatment Upcoming Encounters Date Type Department Care Team (Late st Contact Info) Description 01/17/2025 11:00 AM EDT Office Visit [facility] MEDICINE [address] [place] [address] Maranda Serna MD [address] [place] [address] documented as of this encounter Visit Diagnoses Not on filedocumented in this encounter Additional Health Concerns Assessment Noted Time PHQ-9 Depression Total Score: 6 10/23/20 10:04 AM EST documented as of this encounter Care Teams Riverboat Master Relationship Specialty Start Date End Date Maranda Serna MD [address] [place] [address] PCP - General Family Medicine 08/01/21 documented as of this encounter
--- OUTSIDE RECORDS SUMMARY | 2024-12-23 13:51 | XMS_ITS | Encounter Summary ---
Author Organization [employer] Address [address] [facility] 7t [place] [address] Care Team Providers Care Business Unit Leader Name Role Phone Maranda Serna MD Primary Care Provider [phone] Reason for Visit * Reason Onset Date Comments Med Refill 12/13/2024 Encounter Details Date Type Department Care Team ([facility] st Contact Info) Description 12/13/2024 Refill [facility] MEDICINE [address] [place], [place] [phone] Maranda Serna MD [address] [place], [place] [phone] Social History Tobacco Use Types Packs/Day Years [...] sent on 11/16/24 with 2 refills to [facility]. Next appointment 01/17/25. * Telephone Encounter - Grayson Broussard - 12/13/2024 1:03 PM EST TC from pt requesting medication refill. Medications needing refill : Tresiba FlexTouch 100 UNIT/ML injection insulin lispro (HumaLOG) 100 UNIT/ML injection To be sent to: [facility] - [place], [place] - [address] [facility] documented in this encounter Plan of Treatment Upcoming Encounters Date Type Department Care Team (Late st Contact Info) Description 01/17/2025 11:00 AM EDT Office Visit [facility] MEDICINE [address] [place] [address] Maranda Serna MD [address] [place] [address] documented as of this encounter Visit Diagnoses Not on filedocumented in this encounter Additional Health Concerns Assessment Noted Time PHQ-9 Depression Total Score: 6 10/23/20 10:04 AM EST documented as of this encounter Care Teams Business Unit Leader Relationship Specialty Start Date End Date Maranda Serna MD [address] [place] [address] PCP - General Family Medicine 08/01/21 documented as of this encounter
--- OUTSIDE RECORDS SUMMARY | 2024-12-23 13:51 | XMS_ITS | Encounter Summary ---
Author Organization [facility] Address [address] [place] [address] Care Team Providers Care Maintenance Service Supervisor Name Role Phone Viet Sánchez Unavailable [phone] Viet Snáchez Primary Care Provider Encounter Details Date Type Department Care Team (Late st Contact Info) Description 07/07/2018 Scanned Document [facility] Urologic Surgery [place] [address] [facility] [address] [place] [address] Provider, Sheryl, [address] [place] [address] Social History Tobacco Use Types Packs/Day Years [...] on filedocumented in this encounter Care Teams Maintenance Service Supervisor Relationship Specialty Start Date End Date Viet Sánchez PA [address] [place] [address] PCP - General 06/18/18 Viet Sánchez PA [address] [place] [address] 06/18/18 documented as of this encounter
--- OUTSIDE RECORDS SUMMARY | 2024-12-23 13:51 | XMS_ITS | Encounter Summary ---
Author Organization [facility] Address [address] [place] [address] Care Team Providers Care Health Outreach Worker Name Role Phone Viet Sánchez Unavailable [phone] Viet Sánchez Primary Care Provider [phone] Encounter Details Date Type Department Care Team (Late st Contact Info) Description 11/09/2019 Prep for Surgery OPHTHALMOLOGY [address] [place] [address] Holland Hunt MD 85 [facility] [address] [place] [address] Social History Tobacco Use Types Packs/Day Years [...] on filedocumented in this encounter Care Teams Health Outreach Worker Relationship Specialty Start Date End Date Viet Sánchez PA [address] [place] [address] PCP - General 06/18/18 Viet Sánchez PA [address] [place] [address] 06/18/18 documented as of this encounter
--- OUTSIDE RECORDS SUMMARY | 2024-12-23 13:51 | XMS_ITS | Clinical Summary ---
Author Organization [facility] Address [address] [place] [address] Care Team Providers Care Cushion Assembler Name Role Phone ChapispriscillaViet Primary Care Provider [phone] Allergies Active Allergy Reactions Criticality Noted Date [...] age to complete this topic Care Teams Cushion Assembler Relationship Specialty Start Date End Date Viet Sánchez [address] [place] [address] PCP - General Medical Services 06/19/18
--- OUTSIDE RECORDS SUMMARY | 2024-12-23 13:51 | XMS_ITS | Encounter Summary ---
Author Organization [facility] Address [address] [place] [address] Care Team Providers Care Psychologist Counseling Name Role Phone Viet Sánchez Unavailable [phone] Viet Sánchez Primary Care Provider Encounter Details Date Type Department Care Team (Late st Contact Info) Description 08/06/[address] [facility] Urologic Surgery [place] [address] [facility] [address] [place] [address] Provider, MD Sheryl [address] [place] [address] Social History Tobacco Use Types Packs/Day Years [...] on filedocumented in this encounter Care Teams Psychologist Counseling Relationship Specialty Start Date End Date Viet Sánchez PA [address] [place] [address] PCP - General 06/18/18 Viet Sánchez PA [address] [place] [address] 06/18/18 documented as of this encounter
--- OUTSIDE RECORDS SUMMARY | 2024-12-23 13:51 | XMS_ITS | Encounter Summary ---
Author Organization [employer] Address [address] [facility] 7t [place] [address] Care Team Providers Care Sleeve Setter Lockstitch Name Role Phone Maranda Serna MD Primary Care Provider [phone] Reason for Visit * Reason Onset Date Comments requesting a call back 12/19/2022 Encounter Details Date Type Department Care Team ([facility] Contact Info) Description 12/19/2022 Telephone [facility] MEDICINE [address] [place], [place] [phone] Maranda Serna MD [address] [place], [place] [phone] requesting a call back Social History Tobacco [...] POS on 10/23/2022 their phone number is [phone] office opens at 9:15 pt can call [...] was scheduled for today. Please contact at [phone] documented in this encounter Plan of Treatment Upcoming Encounters Date Type Department Care Team (Late st Contact Info) Description 01/17/2025 11:00 AM EDT Office Visit [facility] MEDICINE [address] [place] [address] Maranda Serna MD [address] [place], [place] [phone] documented as of this encounter Visit Diagnoses Not on filedocumented in this encounter Additional Health Concerns Assessment Noted Time PHQ-9 Depression Total Score: 6 10/23/20 22 10:04 AM EST documented as of this encounter Care Teams Sleeve Setter Lockstitch Relationship Specialty Start Date End Date Maranda Serna MD [address] [place] [address] PCP - General Family Medicine 08/01/21 documented as of this encounter
--- OUTSIDE RECORDS SUMMARY | 2024-12-23 13:51 | XMS_ITS | Clinical Summary ---
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 - Will obtain lab work. Also curious to see radiographic imaging of the hands, feets, SI and lumbar spine. Will obtain interval history from appraisal technician Karlee Le. - RTC in 4 months [...] polyneuropathy, with long-term current use of insulin ([facility]) POCT HEMOGLOBIN, A1C Routine 02/09/2019 8:10 AM EDT Type 2 diabetes mellitus with diabetic polyneuropathy, with long-term current use of insulin ([facility]) HIV COMBO ANTIGEN/ANTIBODY Routine 10/06/2018 3:59 PM EST Polyarthralgia from Last 3 Months or Most Recently Relevant to Health Maintenance Results * Microalbumin/creatinine ratio (02/09/2019 10:15 AM EDT) Microalbumin/Creat Ratio 20 2 - 20 mg/g Creat 02/09/2019 11:55 AM EDT [facility] Creatinine, random urine 101 mg/dL 02/09/2019 11:55 AM EDT [facility] Comment: The laboratory does not have established reference ranges for this test. Interpretation of results is at the discretion of the ordering physician. Urine specimen (specimen) Urine specimen obtained by clean catch procedure / Unknown Non-blood Collection / Unknown 02/09/2019 10:15 AM EDT 02/09/2019 10:15 AM EDT us Keke Katz APRN LAB URINE ORDERABLES Final Res ult [facility] [address] [place] [address], [place] [phone] * POCT hemoglobin, A1c (02/09/2019 8:10 AM EDT) POCT Hemoglobin A1C 9.2 4.4 - 6.4 % Blood specimen (specimen) 02/09/2019 8:10 AM EDT us Jadarijuan c Salamancann SEASONAL SALES ASSOCIATE POCT ORDERABLES NO CHARGE Machelle l Result * HIV combo antigen/antibody (10/06/2018 3:59 PM EST) HIV Combo AB/AG Negative Negative 10/06/2018 6:02 PM EST [facility] Blood specimen (specimen) Venous blood specimen / Unknown Venipuncture / Unknown 10/06/2018 3:59 PM EST 10/06/2018 3:59 PM EST Narrative [facility] - 10/06/2018 6:02 PM EST This test is a 4th generation HIV Antigen-Antibody Combination assay, using a chemiluminescent microparticle immunoassay, for the simultaneous qualitative detection of human immuno- deficiency virus (HIV) p24 antigen and antibodies to HIV type 1 (HIV-1) and/or HIV type 2 (HIV-2) in human serum or plasma. The [employer] HIV Ag/Ab Combo assay is intended to [...] BLOOD ORDERABLES NO ST AT Final Result [facility] [address] [place] [address], [place] [phone] from Last 3 Months or Most Recently Relevant to Health Maintenance Insurance MEDICAID [place] Care Teams Paralegals Relationship Specialty Start Date End Date Viet Sánchez PA [address] [place] [address] PCP - General Family Medicine 07/22/18
--- OUTSIDE RECORDS SUMMARY | 2024-12-23 13:51 | XMS_ITS | Clinical Summary ---
Author Organization [address] [facility] Address [address] [place] [address] Phone Care Team Providers Care National Coverage Specialist Name Role Phone Machelle Swann MD Primary Care Provider [phone] Allergies Active Allergy Reactions Criticality Noted Date [...] 42 mcg (0.06 %) nasal spray 1 [place] by Nasal route. 09/24/20 Active omega-3 acid [...] osteoarthritis; plantar fasciitis - referred to a safe and vault installer; waiting for an appt - check the [...] hyperkalemia and cough -Currently prescribed Dapagliflozin from electronic repair troubleshooter -Follow up in 3-6 mo, sooner if [...] Last Assessment & Plan: - followed by [facility] - no anatomical pancreatic abnormality on MRI in Dec 2022 - continue vegan / plant-based pancreatic enzyme Right knee pain 12/16/2022 Allergic rhinitis 10/12/2022 Anemia 10/12/2022 Overview (08/25/2024): Last Assessment & Plan: - likely due to chronic diseaes - Hx iron infusion - 12/24/22 Hgb 11.7, Hematocrit 35.7 Chronic idiopathic constipation 10/12/2022 Overview (08/25/2024): Last Assessment & Plan: -Followed by [facility], last seen 08/06/22 -EGD and Colonoscopy on 12/24/21; showed Tubular Adenoma, she was recommended to repeat in 3 years. - pt has been using castor oil - continue trying fiber-rich diet and increasing physical activity as tolerated. 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 Tsai is prescribing Dapagliflozin (Farxiga) - Previously on Lisinopril, but was disccontinued due to cough / K - Avoid nephrotoxic drugs - Renal dose meds Gastroesophageal reflux disease 10/12/2022 Overview (08/25/2024): Last Assessment & Plan: -s/p EGD 12/24/21 -followed by [facility] -continue omeprazole 40mg daily -previously tried pantoprazole and lansoprazole; pt prefers omeprazole. -previously prescribed famotidine. Max dose for her renal function is 20 mg daily. Pt does not take it regularly. Irritable bowel syndrome 10/12/2022 Overview (08/25/2024): Last Assessment & Plan: - followed by [facility] - continue current treatment plan per [...] * Annual BMP Blood Test (12/30/2023) Pathologist [facility] Annual BMP Blood Test Abstracted Result [facility] Provider HEALTH MAINTENANCE Final Result * Hemoglobin A1c (12/30/2023) [facility] Hemoglobin A1C 0.0 % Comment:no interpretation Blood Venous blood specimen / Unknown Result [facility] Provider LAB BLOOD ORDERABLES Machelle l Result * Lipid panel (12/30/2023) [facility] Triglycerides 0 mg/dL Comment:no interpretation Cholesterol 0 mg/dL Comment:no interpretation HDL 0 mg/dL Comment:no interpretation LDL Cholesterol 0 mg/dL Comment:no interpretation Blood Venous blood specimen / Unknown Result [facility] Provider LAB BLOOD ORDERABLES Machelle l Result * Urine Albumin Creatinine Ratio (07/24/2022) Pathologist [facility] Urine Albumin Creatinine Ratio Abstracted Result [facility] Provider HEALTH MAINTENANCE Final Result from Last 3 Months or Most Recently Relevant to Health Maintenance Insurance MEDICAID - [place] Care Teams National Coverage Specialist Relationship Specialty Start Date End Date Machelle Swann MD [address] [place] [address] [place] [address] PCP - General 10/15/12
--- OUTSIDE RECORDS SUMMARY | 2024-12-23 13:51 | XMS_ITS | Clinical Summary ---
Author Organization [employer] Address [address] [facility] [address] [place] [address] Care Team Providers Care Record Producer Name Role Phone Maranda Serna MD Primary Care Provider Allergies Active Allergy Reactions Criticality Noted Date [...] , with long-term current use of insulin ([facility]) TEST BLOOD SUGAR THREE [...] mL 2 025 Active Easy Touch Pen [place] 31G X 8 MM miscIndicatio ns:Type 2 diabetes mellitus with hyperglycemia , with long-term current use of insulin ([facility]) USE DIRECTED THREE TIMES [...] and supportive care - follow up with ip attorney as scheduled Assessment & Plan (07/23/2024 9:02 [...] Plan (07/23/2024 5:36 AM EDT): - seeing ip attorney - continue judicious use of gabapentin 100 mg tid - she wants to switch to tablet. 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 -Patient Reserves Clerk prescribed Farxiga. Patient is taking this medication [...] want to try any GLP-1 agonist. -Patient Reserves Clerk prescribed Farxiga. Patient is no longer taking [...] (01/04/2024 3:42 PM EST): - followed by [facility] - no anatomical pancreatic abnormality on MRI in Dec 2022 - continue vegan / plant-based pancreatic enzyme Assessment & Plan (10/03/2023 9:49 AM EST): - followed by [facility] - no anatomical pancreatic abnormality on MRI in Dec 2022 - continue vegan / plant-based pancreatic enzyme Assessment & Plan (06/07/2023 3:30 PM EDT): - followed by [facility] - no anatomical pancreatic abnormality on MRI in Dec 2022 - continue vegan / plant-based pancreatic enzyme Assessment & Plan (02/24/2023 5:30 AM EDT): - followed by [facility] - no anatomical pancreatic abnormality on MRI in Dec 2022 - continue vegan / plant-based pancreatic enzyme Assessment & Plan (12/18/2022 6:12 PM EST): - followed by [facility] - continue vegan pancreatic enzyme Allergic [...] Plan (07/20/2024 1:50 PM EDT): -Followed by [facility], last seen 08/06/22 -EGD and Colonoscopy on 12/24/21; showed Tubular Adenoma, she was recommended to repeat in 3 years. - pt has been using castor oil - continue trying fiber-rich diet and increasing physical activity as tolerated. - continue Senakot as prescribed Assessment & Plan (01/04/2024 3:38 PM EST): -Followed by [facility], last seen 08/06/22 -EGD and Colonoscopy on 12/24/21; showed Tubular Adenoma, she was recommended to repeat in 3 years. - pt has been using castor oil - continue trying fiber-rich diet and increasing physical activity as tolerated. - continue Senakot as prescribed Assessment & Plan (06/07/2023 3:33 PM EDT): -Followed by [facility], last seen 08/06/22 -EGD and Colonoscopy on 12/24/21; showed Tubular Adenoma, she was recommended to repeat in 3 years. - pt has been using castor oil - continue trying fiber-rich diet and increasing physical activity as tolerated. - continue Senakot as prescribed Assessment & Plan (12/18/2022 6:26 PM EST): -Followed by [facility], last seen 08/06/22 -EGD and Colonoscopy on 12/24/21; showed Tubular Adenoma, she was recommended to repeat in 3 years. - pt has been using castor oil - continue trying fiber-rich diet and increasing physical activity as tolerated. - continue Senakot as prescribed Chronic kidney disease, stage III (moderate) 01/2022 Assessment & Plan (07/23/2024 5:41 AM EDT): - Reserves Clerk, Dr. Marci Hylton. - Metformin is discontinued, Dr. Tsai started bryn ib Dapagliflozin (Farxiga) - Previously on Lisinopril, but was disccontinued due to cough / K - Avoid nephrotoxic drugs, including NSAID (no more Aleve) - Renal dose meds Assessment & Plan (01/04/2024 3:45 PM EST): - Reserves Clerk, Dr. 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 Tsai is prescribing Dapagliflozin (Farxiga) - Previously on Lisinopril, but was disccontinued due to cough / K - Avoid nephrotoxic drugs - Renal dose meds Assessment & Plan (10/03/2023 9:41 AM EST): - Reserves Clerk, Dr. 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 Tsai rx Farxiga for DM management - Previously on Lisinopril, but was disccontinued due to cough / K - Avoid nephrotoxic drugs - Renal dose meds - Pt was advised that atorvastatin is not nephrotoxic and it will lower her ASCVD risk. Pt continues to decline statin therapy. Assessment & Plan (06/07/2023 3:34 PM EDT): - Reserves Clerk, Dr. 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 [...] & Plan (02/24/2023 5:37 AM EDT): - Reserves ClerkDr. Tsai - Lab: 12/24/22 BUN 28, Scr [...] & Plan (12/18/2022 6:31 PM EST): - Reserves Clerk, Dr. 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 [...] PM EST): -s/p EGD 12/24/21 -followed by [facility] -continue omeprazole 40mg daily -previously tried pantoprazole and lansoprazole; pt prefers omeprazole. -previously prescribed famotidine. Max dose for her renal function is 20 mg daily. Pt does not take it regularly. Assessment & Plan (10/03/2023 9:50 AM EST): -s/p EGD 12/24/21 -followed by [facility] -continue omeprazole 40mg daily -previously tried pantoprazole and lansoprazole; pt prefers omeprazole. -previously prescribed famotidine. Max dose for her renal function is 20 mg daily. Pt does not take it regularly. Assessment & Plan (06/07/2023 3:33 PM EDT): -s/p EGD 12/24/21 -followed by [facility] -continue omeprazole 40mg daily -previously tried pantoprazole and lansoprazole; pt prefers omeprazole. -previously prescribed famotidine. Max dose for her renal function is 20 mg daily. Pt does not take it regularly. Assessment & Plan (12/18/2022 6:28 PM EST): -s/p EGD 12/24/21 -followed by [facility] -continue prantoprazol 40mg daily -previously prescribed famotidine. Max dose for her renal function is 20 mg daily. Irritable bowel syndrome 10/12/2022 Assessment & Plan (07/20/2024 1:50 PM EDT): - followed by [facility] - continue current treatment plan per GI - low FODMAP diet - pt is prescribed simethicone, Sennakot, citrucel, but does not like taking it regularly Assessment & Plan (01/04/2024 3:42 PM EST): - followed by [facility] - continue current treatment plan per GI - low FODMAP diet - pt is prescribed simethicone, Sennakot, citrucel, but does not like taking it regularly Assessment & Plan (10/03/2023 9:49 AM EST): - followed by [facility] - continue current treatment plan per GI - low FODMAP diet - pt is prescribed simethicone, Sennakot, citrucel, but does not like taking it regularly Assessment & Plan (06/07/2023 3:32 PM EDT): - followed by [facility] - continue current treatment plan per GI - low FODMAP diet - pt is prescribed simethicone, Sennakot, citrucel, but does not like taking it regularly Assessment & Plan (12/18/2022 6:27 PM EST): - followed by [facility] - continue current treatment plan per [...] want to try any GLP-1 agonist. -Patient Reserves Clerk prescribed Farxiga. Patient is taking this medication [...] want to try any GLP-1 agonist. -Patient Reserves Clerk prescribed Farxiga. Patient is no longer taking [...] want to try any GLP-1 agonist. -Patient Reserves Clerk prescribed Farxiga. Patient is no longer taking [...] want to try any GLP-1 agonist. -Patient Reserves Clerk prescribed Farxiga. Patient is no longer taking [...] want to try any GLP-1 agonist. -Patient Reserves Clerk prescribed Farxiga. Patient is no longer taking [...] Type Department Care Team Description 12/14/2024 Refill [facility] [address] [place] [address] Maranda Serna MD Type 2 diabetes mellitus with hyperglycemia, with long-term current use of insulin ([facility]) 12/13/2024 Refill [facility] [address] [place], [place] [phone] Maranda Serna MD 12/08/2024 Telephone [facility] [address] [place] [address] Maranda Serna MD Transition Of Care (Tcm) (HDF- Unscheduled THIRD LVM) 12/07/2024 Telephone [facility] [address] [place] [address] Maranda Serna MD Hospital Follow-up 12/02/2024 Patient Outreach [facility] [address] [place] [address] Maranda Serna MD Transition Of Care (Tcm) (HDF- Unscheduled second LVM) 12/01/2024 Patient Outreach [facility] [address] [place] [address] Maranda Serna MD Transition Of Care (Tcm) (HDF- unscheduled LVM ) 11/27/2024 Orders Only [facility] External Provider, [facility] 11/25/[address] [address] Ayse Arce [place] December11/16/2024 Refill [facility] [address] [place] [address] Mahsa Acosta MD from Last 3 Months [...] Description 01/17/2025 11:00 AM EDT Office Visit [facility] [address] [place] [address] Maranda Serna MD [address] [place] [address] Health Maintenance Due Date Last Done Comments [...] topic Meningococcal Vaccine Aged Out No anahi rbyn eligible based on patient's age to complete [...] hyperglycemia, with long-term current use of insulin ([facility]) BI MAMMOGRAM SCREENING TOMOSYNTHESIS BILATERAL Routine 02/10/2024 2:40 PM EDT LIPID PANEL WITH REFLEX TO DIRECT LDL Routine 12/30/2023 4:50 PM EST Type 2 diabetes mellitus with hyperglycemia, with long-term current use of insulin ([facility]) Dyslipidemia HM COLONOSCOPY Routine 07/07/2022 from Last 3 Months or Most Recently Relevant to Health Maintenance Results * CT Chest w/o Contrast (11/27/2024 8:28 PM EST) Anatomical Region Laterality Modality Body, Chest Computed Tomogra phy 11/27/2024 8:28 PM EST Narrative 11/27/2024 8:30 PM EST ? [facility] ?[address] ?[place] [address] ? CT Scan Report ? Signed ? Patient: Ese Mendoza ?MR#: [id number] ?? 8 ? : 1960 ?Acct:[id number] ? Age/Sex: 64 / F ?ADM Date: 11/27/24 ? Loc: HO.ED ? Attending Dr: ? Ordering Physician: Rajwinder Bhatti CNP ?? Date of Service: 11/27/24 ?? Procedure(s): CT chest wo IV con ?? Accession Number(s): [id number] ? cc: Rajwinder Bhatti CNP; Maranda Serna MD ? Report Number: ?? [id number]: Total DLP = ??543.00 mGy-cm ? CLINICAL HISTORY: cp, sob ? CT chest without contrast ? Comparison: CT - CHEST WITHOUT CONTRAST [id number] - 12/22/07 00:00 EST ? Findings: The [...] ? DD/ 27 ? TD/TT: 11/27/242027 ? Gold Assayer: ? Procedure Note Donedwigeter, Image - 11/27/[address] [place] [address] [address] Scan Report Signed Patient: Ese MendozaMR#: [id number] 8 : 1960Acct:[id number] Age/Sex: 64 / FADM Date: 11/27/24 Loc: HO.ED Attending Dr: Ordering Physician: Rajwinder Bhatti CNP Date of Service: 11/27/24 Procedure(s): CT chest wo IV con Accession Number(s): [id number] cc: Rajwinder Bhatti CNP; Maranda Serna MD Report Number: [id number]: Total DLP = 543.00 mGy-cm CLINICAL HISTORY: cp, sob CT chest without contrast Comparison: CT - CHEST WITHOUT CONTRAST [id number] - 12/22/07 00:00 EST Findings: The prior [...] in OV> 11/27/242028 DD/ 27 TD/TT: 11/27/242027 Gold Assayer: [facility] External Provider IMG CT PROCEDURES Edited Result - Final * Lactic Acid (11/27/2024 5:48 PM EST) [facility] Lactic Acid 1.2 0.5 - 2.0 mmol/L [facility] 11/27/2024 5:48 PM EST 11/27/2024 5:54 PM EST Generic External Data Provider LAB BLOOD ORDERAB LES Final Result Performing Organization Address [facility] Co de Phone Number [facility] [address] [place] [phone] * (ABNORMAL) High Sensitivity Troponin I (11/27/2024 4:48 PM EST) Only the most recent of2 resultswithin the time period is included. [facility] TROPONIN I HIGH SENSITIVITY 743.6(HH) <3.5 - 17.0 ng/L [facility] Comment:Critical value for t est(s): TROP Results called to and readback by: VICKIE Person calling: [employer] Date: 11/27/24Time: 1717The Castillo high sensitivity Troponin-I results should beused in conjunction with other diagnostic information suchas ECG, clinical observations and information, and patientsymptoms to aid in the diagnosis of [place]. 11/27/2024 4:48 PM EST 11/27/2024 4:52 PM EST Generic External Data Provider LAB BLOOD ORDERAB LES Final Result Performing Organization Address [facility] Co de Phone Number [facility] [address] [place] [phone] * (ABNORMAL) C-reactive Protein (11/27/2024 2:07 PM EST) [facility] C Reactive Protein 4.57(H) < or = 0.50 mg/dL [facility] 11/27/2024 2:07 PM EST 11/27/2024 2:10 PM EST us Generic External Data Provider LAB BLOOD ORDERAB LES Final Result [facility] [address] [place] [phone] [phone] * (ABNORMAL) Comprehensive Metabolic Panel (11/27/2024 2:07 PM EST) Sodium 140 135 - 145 mmol/L [facility] Potassium 4.0 3.3 - 5.1 mmol/L [facility] Chloride 108 96 - 108 mmol/L [facility] Carbon Dioxide 26 22 - 29 mmol/L [facility] Anion Gap 10(L) 12 - 20 [facility] Urea Nitrogen (BUN) 32(H) 9 - 16 mg/dL [facility] Creatinine, Serum 1.60(H) 0.5 - 1.4 mg/dL [facility] Creatinine Clr Calc Pharmacy 36.8 [facility] Comment:Provided height and weight: 157.48 cm,89.1 kg.eGFR (calculated from the MDRD study equation) and eCrCl(calculated from the Cockcroft-Gault equation) are based ondifferent parameters and may not yield comparable results.If eCrCl result is absurd, please check patient'sheight/weight. Estimated Glomerular Filt Rate 32 [facility] Comment:Chronic Kidney Disea se: Estimated GFR < 60 mL/min/1.07o5Ddrwxw Kidney Disease: Estimated GFR < 15 mL/min/1.73m2 Glucose 149(H) 60 - 115 mg/dL [facility] Calcium 8.6 8.4 - 10.2 mg/dL [facility] Bilirubin, Total 0.4 0.0 - 1.0 mg/dL [facility] Aspartate Amino Transferase 22 5 - 31 U/L [facility] Alanine Aminotransferase 9 0 - 31 U/L [facility] Total Protein 6.7 6.5 - 8.0 g/dL [facility] Albumin Level 3.5 3.5 - 5.0 g/dL [facility] Alkaline Phosphatase 108 39 - 117 U/L [facility] 11/27/2024 2:07 PM EST 11/27/2024 2:10 PM EST Generic External Data Provider LAB BLOOD ORDERAB LES Final Result Performing Organization Address [facility] Phone Number [facility] [address] [place] [phone] * D Dimer High Sensitivity (11/27/2024 2:06 PM EST) [facility] D Dimer High Sensitivity 204 NG/ML [facility] Comment:D-DIMER HS REFERENCE RANGENote: Our [...] ORDERAB LES Final Result Performing Organization Address [facility] Number [facility] [address] [place] [phone] * (ABNORMAL) CBC auto differential (11/27/2024 2:06 PM EST) [facility] White Blood Count 14.0(H) 4.8 - 10.8 X10*3/uL [facility] Red Blood Count 4.15(L) 4.20 - 5.50 X10*6/uL [facility] Hemoglobin 12.0 12.0 - 16.0 g/dl [facility] Hematocrit 36.9(L) 37.0 - 47.0 % [facility] Mean Corpuscular Volume 88.9 80.0 - 98.0 fL [facility] Mean Corpuscular Hemoglobin 28.9 27.0 - 33.0 pg [facility] Mean Corpuscular HGB Conc 32.5 31.0 - 35.0 g/dl [facility] Red Cell Distribution Width 15.7 11.0 - 16.0 % [facility] Platelet Count 294 160 - 400 X10*3/uL [facility] Mean Platelet Volume 11.3 9.4 - 12.3 fL [facility] Neutrophils Percent Auto 76.2(H) 45 - 73 % [facility] Imm Gran Pct Auto 0.4 0.0 - 0.4 % [facility] Lymphocytes Percent Auto 15.8(L) 20 - 40 % [facility] Monocytes Percent Auto 6.2 2 - 11 % [facility] Eosinophils Percent Auto 1.0 0 - 4 % [facility] Basophils Percent Auto 0.4 0 - 2 % [facility] NRBC Pct Auto 0.0 0.0 - 0.2 /100WBC [facility] Neutrophils Absolute Auto 10.7(H) 2.0 - 8.3 x10*3/uL [facility] Imm Gran Abs Auto 0.06(H) 0.00 - 0.03 X10*3/uL [facility] Lymphocytes Absolute Auto 2.2 1.2 - 4.9 X10*3/uL [facility] Monocytes Absolute Auto 0.9 0.1 - 1.2 X10*3/uL [facility] Eosinophils Absolute Auto 0.1 0.0 - 0.4 X10*3/uL [facility] Basophils Absolute Auto 0.1 0.0 - 0.2 X10*3/uL [facility] NRBC Abs Auto 0.000 0.0 - 0.012 X10*3/uL [facility] 11/27/2024 2:06 PM EST 11/27/2024 2:10 PM EST us Generic External Data Provider LAB BLOOD ORDERAB LES Final Result [facility] [address] [place] [phone] * Prothrombin Time-INR (11/27/2024 2:06 PM EST) Prothrombin Time 12.1 10.9 - 12.4 SEC [facility] INTERNATIONAL NORM RATIO 1.0 0.9 - 1.1 [facility] Comment:INTERNATIONAL NORMAL IZED RATIO (INR) [...] ORDERAB LES Final Result Performing Organization Address [facility] de Phone Number [facility] [address] [place] [phone] * (ABNORMAL) B Type Natriuretic Peptide (BNP) (11/27/2024 2:06 PM EST) Pathologist [facility] B Type Natriuretic Peptide 171(H) <100 pg/mL [facility] Comment:For those patients w ho are being treated with Natrecor(nesiritide, recombinant BNP), BNP testing should beperformed at least two hours post treatment in order toensure that only endogenous levels of BNP are detected. 11/27/2024 2:06 PM EST 11/27/2024 2:10 PM EST Generic External Data Provider LAB BLOOD ORDERAB LES Final Result Performing Organization Address [facility] de Phone Number [facility] [address] [place] [phone] * XR Chest 2 Views (11/27/2024 1:35 PM EST) Anatomical Region Laterality Modality Chest Radiographic Mary ging 11/27/2024 1:35 PM EST Narrative 11/27/2024 1:37 PM EST ? [facility] ?[address] ?[place] [address] ?XRay Report ? Signed ? Patient: Reji,Ese ?MR#: [id number] ?? 8 ? : 1960 ?Acct:[id number] ? Age/Sex: 64 / F ?ADM Date: 11/27/24 ? Loc: HO.ED ? Attending Dr: ? Ordering Physician: Shakira Godinez ?? Date of Service: 11/27/24 ?? Procedure(s): XR chest 2V ?? Accession Number(s): [id number] ? cc: Shakira Godinez; Maranda Serna MD ? CLINICAL HISTORY: cough ? 2 view chest x-ray ? Comparison: CT - CHEST WITHOUT CONTRAST [id number] - 12/22/07 00:00 EST ? Findings: ?? [...] ? DD/ 1335 ? TD/TT: 11/27/245 ? Gold Assayer: ? Procedure Note Constantin Falcon - 11/27/[address] [address] XRay Report Signed Patient: Ese MendozaMR#: [id number] 8 : 1960Acct:[id number] Age/Sex: 64 / FADM Date: 11/27/24 Loc: HO.ED Attending Dr: Ordering Physician: Shakira Godinez Date of Service: 11/27/24 Procedure(s): XR chest 2V Accession Number(s): [id number] cc: Shakira Godinez; Maranda Serna MD CLINICAL HISTORY: cough 2 view chest x-ray Comparison: CT - CHEST WITHOUT CONTRAST [id number] - 12/22/07 00:00 EST Findings: The lungs are clear. Heart size is normal. No acute fracture. IMPRESSION: 1. No acute findings. This document has been electronically signed by: Serina Nolan MD on 11/27/2024 13:35:59 Dictated By: Serina Nolan MD Signed By: <Electronically signed by Serina Nolan MD in OV> 11/27/24 1337 DD/ 1335 TD/TT: 11/27/241334 Gold Assayer: [facility] External Provider IMG XR PROCEDURES Edited Result - Final * SARS-CoV-2 RNA, Influenza A/B, and RSV RNA, Ql NAAT (11/27/2024 12:43 PM EST) Influenza A PCR NEGATIVE Negative [facility] Influenza B PCR NEGATIVE Negative [facility] Resp Syncy Virus RNA Qual PCR NEGATIVE Negative [facility] SARS COV2 PCR NEGATIVE Negative [facility] Comment:All test results mus t [...] use by authorized laboratories.Testing performed on the [employer] GeneXpert utilizingreal-time RT-PCR.All SARS CoV2 and positive influenza A/B results arereported to [facility]. 11/27/2024 12:4 3 PM EST 11/27/2024 12:51 PM EST Generic External Data Provider LAB MICROBIOLOGY - GENERAL ORDERABLES Final Result [facility] [address] [place] [phone] [phone] * (ABNORMAL) POCT glycosylated hemoglobin (Hgb A1c) (07/19/2024 2:39 PM EDT) Hemoglobin A1C 9.3(A) 4.0 - 6.0 % QC Media Lot # [id number] Lot# Expiration Date [id number] Blood Capillary blood specimen / Unknown 07/19/2024 2:39 PM EDT Maranda Serna MD POINT OF CARE TEST ENTER/EDIT OR DERABLES Final Result * BI Mammogram Screening Tomosynthesis Bilateral (02/10/2024 2:40 PM EDT) Anatomical Region Laterality Modality Breast Bilateral Mammography 02/10/2024 2:40 PM EDT Narrative 02/22/2024 3:43 PM EDT ? [facility] ? [address] ?[place] [address] ? Mammography Report ? Signed ? Patient: Reji,Ese ?MR#: [id number] ?? 8 ? : 1960 ?Acct:[id number] ? Age/Sex: 63 / F ?ADM Date: //24 ? Loc: HO.MAMMO ? Attending Dr: Maranda Serna MD ? Ordering Physician: Maranda Serna MD ?Results: 1Negative ? Date of Service: //24 ?Follow Up: 1 Year From Orig ?? inal Mammogram ? Procedure(s): MM tomosynthesis screening BI ?? Accession Number(s): [id number] ? cc: Maranda Serna MD ? EXAMINATION: [...] These include several, bilateral, ?? benign macrocalcifications scheduling representative of fat necrosis. ? MM/MM tomosynthesis [...] 1539 ? DD/ 1440 ? TD/TT: ? Gold Assayer: ? Procedure Note Ezekiel, Constantin - 02/22/2024 [place] [facility] [address] [place], [place] [address] Mammography Report Signed Patient: Ese Mendoza#: [id number] 8 : 1960Acct:[id number] Age/Sex: 63 / FADM Date: 02/10/24 Loc: HO.MAMMO Attending Dr: Maranda Serna MD Ordering Physician: Maranda Serna MDResults: 1Negative Date of Service: 02/10/24Follow Up: 1 Year From Orig ina Mammogram Procedure(s): MM tomosynthesis screening BI Accession Number(s): [id number] cc: Maranda Serna MD EXAMINATION: MM SCREENING [...] present. These include several, bilateral, benign macrocalcifications scheduling representative of fat necrosis. MM/MM tomosynthesis screening [...] in OV> 02/22/24 1539 DD/ 1440 TD/TT: Gold Assayer: Maranda Serna MD [facility] BI PROCEDURES Edited Result - Final * (ABNORMAL) Lipid Panel with Reflex to Direct LDL (12/30/2023 4:50 PM EST) Triglycerides 177(H) <150 mg/dL [facility] Comment:Desirable Triglyceri de: less than 150 mg/dLBorderline High Triglyceride 150-199 mg/dLHigh Triglyceride: 200-499 mg/dLVery High Triglyceride: greater than or equal to 5OO mg/dL Cholesterol 235(H) <200 mg/dL [facility] Comment:Desirable Cholestero l: less than 200 mg/dLBorderline High Cholesterol: 200-239 mg/dLHigh Cholesterol: greater than 239 mg/dL LDL Cholesterol Calculated 151(H) <100 mg/dL [facility] Comment:Desirable LDL: less than 100 mg/dLNear Optimal/Above Optimal LDL: 110- 129 mg/dLBorderline High LDL: 130-159 mg/dLHigh LDL: 160-189 mg/dLVery High LDL: greater than or equal to 190 mg/dL HDL Cholesterol 49 >40 mg/dL [facility] Comment:Desirable HDL: great er than 40 mg/dL Note: This HDL assay may give artificially low results in patients with liver disease. Blood 12/30/2023 4:50 PM EST 12/30/2023 5:26 PM EST Maranda Serna MD LAB BLOOD ORDERABLES Final Resul t [facility] [address] [place] [address] [phone] * (ABNORMAL) Colonoscopy (07/07/2022) Colonoscopy Abnormal(A ) Normal [facility] External Provider HEALTH MAINTENANCE Final Result from Last 3 Months or Most Recently Relevant to Health Maintenance Insurance [facility] Care Teams Record Producer Relationship Specialty Start Date End Date Maranda Serna MD [address] [place] [phone] PCP - General Family Medicine 08/01/21
--- OUTSIDE RECORDS SUMMARY | 2024-12-23 13:51 | XMS_ITS | Clinical Summary ---
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 Diabetic peripheral [...] this topic Medical Devices Implanted Type Area Chili Powder Mixer Device Identifier Shelf Expiration Date Model / Serial / Lot [id number].215 Lens Iol 0 D +21.5 Brianda Mod L Bcnvx 13mm 6mm Posterior - [id number] Implanted:Qty: 1 on 01/27/2020 by Obinna Lorenzana MD at [facility] [place] [employer] [id number] / [id number] / Procedures Procedure Name Priority Date/Time Associated [...] 12:01 PM 01/27/2020 12:06 PM Care Teams Punch Machine Hand Relationship Specialty Start Date End Date Viet Sánchez PA [address] [place] [address] PCP - General 06/18/18 Viet Sánchez PA [address] [place] [address] 06/18/18
--- OUTSIDE RECORDS SUMMARY | 2024-12-23 13:51 | XMS_ITS | Encounter Summary ---
Author Organization [employer] Address [address] [facility] [address] [place] [address] Care Team Providers Care Tariff Compiler Name Role Phone Maranda Serna MD Primary Care Provider [phone] Reason for Visit * Reason Comments Med Refill Encounter Details Date Type Department Care Team (Late st Contact Info) Description 12/14/2024 Refill [facility] [address], [place] [phone] Maranda Serna MD [address] [place], [place] [phone] Type 2 diabetes mellitus with hyperglycemia, with long-term current use of insulin ([facility]) Social History Tobacco Use Types Packs/Day [...] 11:00 AM EDT Office Visit [facility] [address] [place] [phone] Maranda Serna MD [address] [place] [phone] documented as of this encounter Visit Diagnoses Diagnosis Type 2 diabetes mellitus with hyperglycemia, with long-term current use of insulin ([facility]) documented in this encounter Additional Health Concerns Assessment Noted Time PHQ-9 Depression Total Score: 6 10/23/20 22 10:04 AM EST documented as of this encounter Care Teams Tariff Compiler Relationship Specialty Start Date End Date Maranda Serna MD [address] [place] [phone] PCP - General Family Medicine 08/01/21 documented as of this encounter
== END 2024-12-23 13:01 | disposition home or self-care (01) ==
LOC: HO.LNP 13:00
PROVIDERS: PCP Family Medicine; Visit Provider Urology
DX: N39.0 Urinary tract infection, site not specified (principal); N32.81 Overactive bladder; R32 Unspecified urinary incontinence; E11.9 Type 2 diabetes mellitus without complications
CPT/HCPCS: 51798; 81003; 87086; 87088; 87186; 99212

== ENCOUNTER 2024-12-23 13:00 | Outpatient (AMB) | payer MEDICAID, SELFPAY ==
--- NOTE | 2024-12-23 13:04 | A.OFFVIS_ITS ---
Intake Visit Reasons: 9m follow up Intake Note: Patient presents today for a follow-up on Recurrents UTI's & OAB: Meds- Estradiol Allergies to Antibiotic- No Known Allergies Blood Thinner- None PVR: 17ml's Sound Installation Worker Required: No Accompanied by: Self / Same As Patient Allergies Pork/Porcine Containing Products [Pork/Porcine Product Derivatives] Allergy (Mild, Verified 12/23/24 13:19) SORES /ITCHING nickel Adverse Reaction (Verified 12/23/24 13:19) Swelling and irritation seasonal Allergy (Unknown, Uncoded 12/23/24 13:19) Itchy Eyes Medication List - Last Reconciled 12/23/24 by Alyce Rangel MD acetaminophen (Tylenol Extra Strength) 500 mg PO Q6H PRN ammonium lactate 12% 1 appl topical DAILY ascorbic acid (vitamin C) 1,000 mg PO DAILY aspirin 81 mg PO DAILY atorvastatin 40 mg PO BEDTIME carvedilol 6.25 mg See Protocol PO BID cranberry fruit (cranberry) 450 mg PO DAILY dapagliflozin propanediol (Farxiga) 5 mg PO DAILY digestive enzymes 1 cap PO BID diphenhydramine-acetaminophen 25-500 mg (Tylenol PM Extra Strength) 1 tab PO BEDTIME PRN famotidine 20 mg PO BEDTIME PRN fluticasone propionate 50 mcg/actuation 1 spray intranasal DAILY PRN incontinence pad, liner, disp As directed: change pads Q2-3 hours/PRN insulin degludec (Tresiba FlexTouch U-100 insulin) 35 units subcut BEDTIME PRN insulin lispro (Humalog KwikPen (U-100) Insulin) See Protocol units subcut TIDAC isosorbide mononitrate ER 30 mg PO DAILY levalbuterol HCl 1.25 mg (3 mL) inhalation Q4H PRN mirabegron ER (Myrbetriq) 50 mg PO DAILY nitroglycerin (Nitrostat) 0.4 mg sublingual Q5MX3 PRN omega 3-ylx-eoq-fish oil 1,000 (120-180) mg (Fish Oil) 1 cap PO DAILY omeprazole 20 mg PO DAILY prednisolone acetate 1% (Pred Forte) 1 drp ophthalmic-Left QID vitamin B complex 1 tab PO DAILY HPI Comments Details: 12/23/24-- LV -03/22/24--Ese is a 64-year-old female who presents today to the office for a follow up on lower urinary tract symptoms of recurrent urinary tract infections and overactive bladder. She is on Farxiga for diabetes. States she ran out of vaginal estrogen cream. I have discussed that I will discontinue estrace cream Failed Oxybutynin. Continues with urge incontinence. Incontinence pads p.r.n., Diabetes comorbidity. Trial of Myrbetriq 50 mg daily. UA-3+Glucose, Nitrite positve. Pt denies dysuria. I will wait for urine cultu re results before starting abx. 06/23/2023?She was last seen by me on 03/05/2023 for lower urinary tract infections and overactive bladder. At that time urinalysis noted nitrate positive urine. She was started on Augmentin. She was also started on Oxybutynin 5 mg daily. 03/05/23--Urine culture showed >100,000 mixed abdi. She states that she is wearing pads during the day. She states she is not using the oxybutynin. Evaluation today UA: leukocytes: trace; blood: negative; nitrate: negative. 03/05/2023?LV?09/20/22-- Ese is a 61-year-old female who is here for follow- up for overactive bladder symptoms and renal cyst.? Comorbidity diabetes.? The patient is a nonsmoker, having never smoked.? She denies constipation she denies dysuria. The? patient reports that she is drinking 3-4 8 oz bottles of water on a daily basis.? She had previously been trialed on oxybutynin but she does not want to take this medication or any other medication right now. Patient reports that she does have urinary incontinence she is wearing a pad on a daily basis she is up 3-6 times at night to void but does remain dry at night. On evaluation today-Urinalysis in the office today no signs of infection, Bladder scan PVR 100 mL. Discussed behaviorial modification, timed voiding every 2-3 hrs, kegel exercises.? I have discussed renal ultrasound results, 08/14/2022 small right renal cyst consistent with simple cyst. 03/05/23-- The patient states increased urinary incontinence. The patient wants to go back on oxybutynin. Complains of dysuria, denies gross hematuria, nocturia 2-3 x Co-morbidity: Insulin dependent diabetes. Evaluation today: Nitrite: positive, blood: negative, leukocytes: negative. Plan: oxybutynin 5 mg. Urine for culture was ordered. Augmentin 500 mg twice a day for 7 days. Follow-up after 3 months. [facility] Medical History Pancreatic insufficiency Pancreatic insufficiency Tubular adenoma CKD (chronic kidney disease) Anemia GERD (gastroesophageal reflux disease) Renal cyst Bladder prolapse, female, acquired Hx of gastric ulcer IBS (irritable bowel syndrome) Kidney stones High cholesterol Diabetes Surgical History Hx of endoscopy Hx of colonoscopy History of partial hysterectomy Hx of breast reduction, elective Hx of cholecystectomy Family History Father Heart attack DM2 (diabetes mellitus, type 2) Mother DM2 (diabetes mellitus, type 2) COPD (chronic obstructive pulmonary disease) Other No pertinent family history Social History Household Members: Family Housing: House Do you presently have visiting nurse or other home services: No Unable to assess alcohol history related to: Unknown Alcohol intake: never Patient Tobacco Use Status: Never used Tobacco Second Hand Smoke Exposure: No service: No Review of Systems Const All systems reviewed & are unremarkable except as noted in HPI and below Reports no additional complaints Eyes Reports no additional complaints ENT Reports no additional complaints Card Reports no additional complaints Resp Reports no additional complaints GI Reports no additional complaints Reports as per HPI Musc Reports no additional complaints Skin/Breast Reports system reviewed and no additional complaints, except as documented Neuro Reports no additional complaints Psych Reports no additional complaints Endo Reports no additional complaints Ethan/Lymph Reports no additional complaints Aller/Immun Reports no additional complaints Office Procedures Post Void Residual Post Residual Void Post Void Residual (PVR): 17 [id number] Void Residual by ultrasound Results AMB Urinalysis, Automated UA Leukoctes 15 Tara/uL Last Edit by Lisa Pardo on 12/23/24 13:22 UA Nitrite Last Edit by Lisa Pardo on 12/23/24 13:22 UA Urobilinogen 0.2 mg/dL Last Edit by Lisa Pardo on 12/23/24 13:22 UA Protein 0 mg/dL Last Edit by Lisa Pardo on 12/23/24 13:22 UA pH 6.0 Last Edit by Lisa Pardo on 12/23/24 13:22 UA Blood 0 Amadeo/uL Last Edit by Lisa Pardo on 12/23/24 13:22 UA Specific [place] 1.010 Last Edit by Lisa Pardo on 12/23/24 13:22 UA Ketone Last Edit by Lisa Pardo on 12/23/24 13:22 UA Bilirubin 0 mg/dL Last Edit by Lisa Pardo on 12/23/24 13:22 UA Glucose 1000 mg/dL Last Edit by Lisa Pardo on 12/23/24 13:22 Results Reviewed Results Reviewed: Laboratory Last Values Urine pH (Auto) 6.0 12/23/24 13:21 Specific [place] (Auto) 1.010 12/23/24 13:21 Urine Protein (Auto) 0 mg/dL 12/23/24 13:21 Glucose (UA)(Auto) 1000 mg/dL 12/23/24 13:21 Urine Blood (Auto) 0 Amadeo/uL 12/23/24 13:21 Urine Bilirubin (Auto) 0 mg/dL 12/23/24 13:21 Urine Urobilinogen (Auto) 0.2 mg/dL 12/23/24 13:21 Leukocyte Esterase (Auto) 15 Tara/uL 12/23/24 13:21 Assessment & Plan Assessment & Plan (1) OAB (overactive bladder): Code(s): N32.81 - Overactive bladder Category: Medical (2) Urinary incontinence: Code(s): R32 - Unspecified urinary incontinence Category: Medical (3) UTI (urinary tract infection): Code(s): N39.0 - Urinary tract infection, site not specified Category: Medical (4) Diabetes: Code(s): E11.9 - Type 2 diabetes mellitus without complications Category: Medical Plan Recurrent UTIs Pt is prescribed Farxiga. Estrace vaginal cream discontinued Overactive bladder, uses pads --failed oxybutynin, Trial Myrbetriq 50 mg daily FU 10 weeks Orders: Orders AMB Urinalysis Automated Today Z13.9 - Encounter for screening, unspecified AMB Post Void Residual by ultrasound Today R32 - Unspecified urinary incontinence Urine Culture Today N39.0 - Urinary tract infection, site not specified Medications: New mirabegron ER (Myrbetriq) 50 mg PO DAILY 30 tabs 3RF Patient Instructions: The patient had an opportunity to ask questions regarding treatment plan. The patient expressed understanding and agreement with the above treatment plan. The patient is aware they should contact our office by phone for worsening of their current condition or the appearance of new symptoms. Compliance is encouraged with any medications and followup testing that is ordered. It is a privilege to be allowed the opportunity to participate in the urologic care of your patient. If you have any questions or concerns regarding treatment for the above conditions please do not hesitate to contact me. The office telephone contact is [phone]. This note is constructed in part using voice recognition software. While every effort has been made to ensure accuracy caponizer errors may have been included. Yours sincerely, Alyce Rangel MD Coding Level of Care Code Est Pt Level 4 (66392) Diagnoses OAB (overactive bladder) N32.81 Urinary incontinence R32 UTI (urinary tract infection) N39.0 Diabetes E11.9 CPT Codes Post Residual Void - PVR CPT Code: 11052-Zxbu Void Residual by ultrasound ([id number])
--- OUTSIDE RECORDS SUMMARY | 2024-12-23 13:08 | XMS_ITS | Encounter Summary ---
Author Organization [employer] Address [address] [place] [address] Care Team Providers Care Engineering Inspection Assistant Name Role Phone Maranda Serna MD Primary Care Provider [phone] Reason for Visit * Reason Onset Date Comments December recall 11/25/2024 Encounter Details Date Type Department Care Team ([facility] st Contact Info) Description 11/25/2024 Telephone [facility] [address] [place], [place] [id number] Ayse Arce [place] December recall Social History [...] Description 01/17/2025 11:00 AM EDT Office Visit [facility] [address] [place] [address] Maranda Serna MD [address] [place] [address] documented as of this encounter Visit Diagnoses Not on filedocumented in this encounter Additional Health Concerns Assessment Noted Time PHQ-9 Depression Total Score: 6 10/23/20 22 10:04 AM EST documented as of this encounter Care Teams Engineering Inspection Assistant Relationship Specialty Start Date End Date Maranda Serna MD [address] [place] [address] PCP - General Family Medicine 08/01/21 documented as of this encounter
--- OUTSIDE RECORDS SUMMARY | 2024-12-23 13:08 | XMS_ITS | Clinical Summary ---
Author Organization [facility] Address [address] [place] [address] Phone Care Team Providers Care Deputy Coroner Name Role Phone Machelle Swann MD Primary Care Provider [phone] Allergies Active Allergy Reactions Criticality Noted Date [...] 42 mcg (0.06 %) nasal spray 1 [place] by Nasal route. 09/24/20 Active omega-3 acid [...] osteoarthritis; plantar fasciitis - referred to a information broker; waiting for an appt - check the [...] hyperkalemia and cough -Currently prescribed Dapagliflozin from program management analyst -Follow up in 3-6 mo, sooner if [...] Last Assessment & Plan: - followed by [facility] - no anatomical pancreatic abnormality on MRI in Dec 2022 - continue vegan / plant-based pancreatic enzyme Right knee pain 12/16/2022 Allergic rhinitis 10/12/2022 Anemia 10/12/2022 Overview (08/25/2024): Last Assessment & Plan: - likely due to chronic diseaes - Hx iron infusion - 12/24/22 Hgb 11.7, Hematocrit 35.7 Chronic idiopathic constipation 10/12/2022 Overview (08/25/2024): Last Assessment & Plan: -Followed by [facility], last seen 08/06/22 -EGD and Colonoscopy on 12/24/21; showed Tubular Adenoma, she was recommended to repeat in 3 years. - pt has been using castor oil - continue trying fiber-rich diet and increasing physical activity as tolerated. 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 Tsai is prescribing Dapagliflozin (Farxiga) - Previously on Lisinopril, but was disccontinued due to cough / K - Avoid nephrotoxic drugs - Renal dose meds Gastroesophageal reflux disease 10/12/2022 Overview (08/25/2024): Last Assessment & Plan: -s/p EGD 12/24/21 -followed by [facility] -continue omeprazole 40mg daily -previously tried pantoprazole and lansoprazole; pt prefers omeprazole. -previously prescribed famotidine. Max dose for her renal function is 20 mg daily. Pt does not take it regularly. Irritable bowel syndrome 10/12/2022 Overview (08/25/2024): Last Assessment & Plan: - followed by [facility] - continue current treatment plan per [...] Pneumococcal Vaccine: 50+ Years Completed 09/23/2023, 01/01/2021 Pneumococcal Vaccine: Pediatrics (0 to 5 Years) [...] patient's age to complete this topic Meningococcal B Vacine Aged Out No lo nger eligible based on patient's age to complete [...] Results * Annual BMP Blood Test (12/30/2023) Pathologist [facility] Annual BMP Blood Test Abstracted Result [facility] Provider HEALTH MAINTENANCE Final Result * Hemoglobin A1c (12/30/2023) [facility] Hemoglobin A1C 0.0 % Comment:no interpretation Blood Venous blood specimen / Unknown Result [facility] Provider LAB BLOOD ORDERABLES Machelle l Result * Lipid panel (12/30/2023) [facility] Triglycerides 0 mg/dL Comment:no interpretation Cholesterol 0 mg/dL Comment:no interpretation HDL 0 mg/dL Comment:no interpretation LDL Cholesterol 0 mg/dL Comment:no interpretation Blood Venous blood specimen / Unknown Result [facility] Provider LAB BLOOD ORDERABLES Machelle l Result * Urine Albumin Creatinine Ratio (07/24/2022) Pathologist [facility] Urine Albumin Creatinine Ratio Abstracted Result [facility] Provider HEALTH MAINTENANCE Final Result from Last 3 Months or Most Recently Relevant to Health Maintenance Insurance MEDICAID - [place] Care Teams Deputy Coroner Relationship Specialty Start Date End Date Machelle Swann MD [address] [place] [address] [place] [address] PCP - General 10/15/12
--- OUTSIDE RECORDS SUMMARY | 2024-12-23 13:08 | XMS_ITS | Clinical Summary ---
Author Organization [employer] Address [address] [facility] [address] [place] [address] Care Team Providers Care Retail Administrative Assistant Name Role Phone Maranda Serna MD Primary Care Provider [phone] Allergies Active Allergy Reactions Criticality Noted Date [...] , with long-term current use of insulin ([facility]) TEST BLOOD SUGAR THREE TIMES DAILY 100 [...] mL 2 025 Active Easy Touch Pen [place] 31G X 8 MM miscIndicatio ns:Type 2 diabetes mellitus with hyperglycemia , with long-term current use of insulin ([facility]) USE DIRECTED THREE TIMES DAILY 200 each 11 025 Active Insulin Pen Needle (pen needle 16 ) 31G X 8 mm miscIndicatio ns:Type 2 diabetes mellitus with hyperglycemia , with long-term current use of insulin ([facility]) Inject 1 each under the skin 3 [...] and supportive care - follow up with food and nutrition services supervisor as scheduled Assessment & Plan (07/23/2024 9:02 [...] Plan (07/23/2024 5:36 AM EDT): - seeing food and nutrition services supervisor - continue judicious use of gabapentin 100 mg tid - she wants to switch to tablet. Only tablets available are 600 and 800 mg tablet - will have her take 1/4 of 600 mg tablet and take bid; or will check with pharmacist if she can open the capsule and take inside content Assessment & Plan (01/04/2024 3:36 PM EST): - seeing food and nutrition services supervisor - continue judicious use of gabapentin Assessment & Plan (10/03/2023 9:48 AM EST): - seeing food and nutrition services supervisor - waiting for diabetic orthotics Adjustment disorder [...] hyperkalemia and cough -Currently prescribed Dapagliflozin from health sanitarian -Follow up in 3-6 mo, sooner if [...] hyperkalemia and cough -Currently prescribed Dapagliflozin from health sanitarian -Follow up in 3-6 mo, sooner if [...] osteoarthritis; plantar fasciitis - referred to a food and nutrition services supervisor; waiting for an appt - check the [...] want to try any GLP-1 agonist. -Patient Dredge Pipe Operator prescribed Farxiga. Patient is taking this medication [...] want to try any GLP-1 agonist. -Patient Dredge Pipe Operator prescribed Farxiga. Patient is no longer taking [...] (01/04/2024 3:42 PM EST): - followed by [facility] - no anatomical pancreatic abnormality on MRI in Dec 2022 - continue vegan / plant-based pancreatic enzyme Assessment & Plan (10/03/2023 9:49 AM EST): - followed by [facility] - no anatomical pancreatic abnormality on MRI in Dec 2022 - continue vegan / plant-based pancreatic enzyme Assessment & Plan (06/07/2023 3:30 PM EDT): - followed by [facility] - no anatomical pancreatic abnormality on MRI in Dec 2022 - continue vegan / plant-based pancreatic enzyme Assessment & Plan (02/24/2023 5:30 AM EDT): - followed by [facility] - no anatomical pancreatic abnormality on MRI in Dec 2022 - continue vegan / plant-based pancreatic enzyme Assessment & Plan (12/18/2022 6:12 PM EST): - followed by [facility] - continue vegan pancreatic enzyme [...] Plan (07/20/2024 1:50 PM EDT): -Followed by [facility], last seen 08/06/22 -EGD and Colonoscopy on 12/24/21; showed Tubular Adenoma, she was recommended to repeat in 3 years. - pt has been using castor oil - continue trying fiber-rich diet and increasing physical activity as tolerated. - continue Senakot as prescribed Assessment & Plan (01/04/2024 3:38 PM EST): -Followed by [facility], last seen 08/06/22 -EGD and Colonoscopy on 12/24/21; showed Tubular Adenoma, she was recommended to repeat in 3 years. - pt has been using castor oil - continue trying fiber-rich diet and increasing physical activity as tolerated. - continue Senakot as prescribed Assessment & Plan (06/07/2023 3:33 PM EDT): -Followed by [facility], last seen 08/06/22 -EGD and Colonoscopy on 12/24/21; showed Tubular Adenoma, she was recommended to repeat in 3 years. - pt has been using castor oil - continue trying fiber-rich diet and increasing physical activity as tolerated. - continue Senakot as prescribed Assessment & Plan (12/18/2022 6:26 PM EST): -[facility] [...] & Plan (07/23/2024 5:41 AM EDT): - Dredge Pipe Operator, Dr. Marci Hylton. - Metformin is discontinued, Dr. Tsai started bryn ib Dapagliflozin (Farxiga) - Previously on Lisinopril, but was disccontinued due to cough / K - Avoid nephrotoxic drugs, including NSAID (no more Aleve) - Renal dose meds Assessment & Plan (01/04/2024 3:45 PM EST): - Dredge Pipe Operator, Dr. 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 Tsai is prescribing Dapagliflozin (Farxiga) - Previously on Lisinopril, but was disccontinued due to cough / K - Avoid nephrotoxic drugs - Renal dose meds Assessment & Plan (10/03/2023 9:41 AM EST): - Dredge Pipe Operator, Dr. 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 Tsai rx Farxiga for DM management - Previously on Lisinopril, but was disccontinued due to cough / K - Avoid nephrotoxic drugs - Renal dose meds - Pt was advised that atorvastatin is not nephrotoxic and it will lower her ASCVD risk. Pt continues to decline statin therapy. Assessment & Plan (06/07/2023 3:34 PM EDT): - Dredge Pipe Operator, Dr. 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 [...] & Plan (02/24/2023 5:37 AM EDT): - Dredge Pipe OperatorDr. Tsai - Lab: 12/24/22 BUN 28, Scr [...] & Plan (12/18/2022 6:31 PM EST): - Dredge Pipe Operator, Dr. 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 [...] PM EST): -s/p EGD 12/24/21 -followed by [facility] -continue omeprazole 40mg daily -previously tried pantoprazole and lansoprazole; pt prefers omeprazole. -previously prescribed famotidine. Max dose for her renal function is 20 mg daily. Pt does not take it regularly. Assessment & Plan (10/03/2023 9:50 AM EST): -s/p EGD 12/24/21 -followed by [facility] -continue omeprazole 40mg daily -previously tried pantoprazole and lansoprazole; pt prefers omeprazole. -previously prescribed famotidine. Max dose for her renal function is 20 mg daily. Pt does not take it regularly. Assessment & Plan (06/07/2023 3:33 PM EDT): -s/p EGD 12/24/21 -followed by [facility] -continue omeprazole 40mg daily -previously tried pantoprazole and lansoprazole; pt prefers omeprazole. -previously prescribed famotidine. Max dose for her renal function is 20 mg daily. Pt does not take it regularly. Assessment & Plan (12/18/2022 6:28 PM EST): -s/p EGD 12/24/21 -followed by [facility] -continue prantoprazol 40mg daily -previously prescribed famotidine. Max dose for her renal function is 20 mg daily. Irritable bowel syndrome 10/12/2022 Assessment & Plan (07/20/2024 1:50 PM EDT): - followed by [facility] - continue current treatment plan per GI - low FODMAP diet - pt is prescribed simethicone, Sennakot, citrucel, but does not like taking it regularly Assessment & Plan (01/04/2024 3:42 PM EST): - followed by [facility] - continue current treatment plan per GI - low FODMAP diet - pt is prescribed simethicone, Sennakot, citrucel, but does not like taking it regularly Assessment & Plan (10/03/2023 9:49 AM EST): - followed by [facility] - continue current treatment plan per GI - low FODMAP diet - pt is prescribed simethicone, Sennakot, citrucel, but does not like taking it regularly Assessment & Plan (06/07/2023 3:32 PM EDT): - followed by [facility] - continue current treatment plan per GI - low FODMAP diet - pt is prescribed simethicone, Sennakot, citrucel, but does not like taking it regularly Assessment & Plan (12/18/2022 6:27 PM EST): - [facility] want to try any GLP-1 agonist. -Patient Dredge Pipe Operator prescribed Farxiga. Patient is taking this medication [...] want to try any GLP-1 agonist. -Patient Dredge Pipe Operator prescribed Farxiga. Patient is no longer taking [...] want to try any GLP-1 agonist. -Patient Dredge Pipe Operator prescribed Farxiga. Patient is no longer taking [...] want to try any GLP-1 agonist. -Patient Dredge Pipe Operator prescribed Farxiga. Patient is no longer taking [...] want to try any GLP-1 agonist. -Patient Dredge Pipe Operator prescribed Farxiga. Patient is no longer taking [...] Type Department Care Team Description 12/14/2024 Refill [facility] [address] [place] [address] Maranda Serna MD Type 2 diabetes mellitus with hyperglycemia, with long-term current use of insulin ([facility]) 12/13/2024 Refill [facility] [address], [place] [phone] Maranda Serna MD 12/08/2024 Telephone [facility] [address] [place] [address] Maranda Serna MD Transition Of Care (Tcm) (HDF- Unscheduled THIRD LVM) 12/07/2024 Telephone [facility] [address] [place] [address] Maranda Serna MD Hospital Follow-up 12/02/2024 Patient Outreach [facility] [address] [place] [address] Maranda Serna MD Transition Of Care (Tcm) (HDF- Unscheduled second LVM) 12/01/2024 Patient Outreach [facility] [address] [place] [address] Maranda Serna MD Transition Of Care (Tcm) (HDF- unscheduled LVM ) 11/27/2024 Orders Only [facility] External Provider, [facility] 11/25/[address] [address] Ayse Arce [place] December11/16/2024 Refill [facility] [address] [place] [address] Mahsa Acosta MD from Last 3 Months [...] Description 01/17/2025 11:00 AM EDT Office Visit [facility] [address] [place] [address] Maranda Serna MD [address] [place] [address] Health Maintenance Due Date Last Done Comments [...] hyperglycemia, with long-term current use of insulin ([facility]) BI MAMMOGRAM SCREENING TOMOSYNTHESIS BILATERAL Routine 02/10/2024 2:40 PM EDT LIPID PANEL WITH REFLEX TO DIRECT LDL Routine 12/30/2023 4:50 PM EST Type 2 diabetes mellitus with hyperglycemia, with long-term current use of insulin ([facility]) Dyslipidemia HM COLONOSCOPY Routine 07/07/2022 from Last 3 Months or Most Recently Relevant to Health Maintenance Results * CT Chest w/o Contrast (11/27/2024 8:28 PM EST) Anatomical Region Laterality Modality Body, Chest Computed Tomogra phy 11/27/2024 8:28 PM EST Narrative 11/27/2024 8:30 PM EST ? [facility] ?[address] ?[place] [address] ? CT Scan Report ? Signed ? Patient: Ese Mendoza ?MR#: [id number] ?? 8 ? : 1960 ?Acct:[id number] ? Age/Sex: 64 / F ?ADM Date: 11/27/24 ? Loc: HO.ED ? Attending Dr: ? Ordering Physician: Rajwinder Bhatti CNP ?? Date of Service: 11/27/24 ?? Procedure(s): CT chest wo IV con ?? Accession Number(s): [id number] ? cc: Rajwinder Bhatti CNP; Maranda Serna MD ? Report Number: ?? [id number]: Total DLP = ??543.00 mGy-cm ? CLINICAL HISTORY: cp, sob ? CT chest without contrast ? Comparison: CT - CHEST WITHOUT CONTRAST [id number] - 12/22/07 00:00 EST ? Findings: The [...] ? DD/ 27 ? TD/TT: 11/27/242027 ? Band Top Maker: ? Procedure Note Donedwigeter, Image - 11/27/[address] [place] [address] [address] Scan Report Signed Patient: Ese MendozaMR#: [id number] 8 : 1960Acct:[id number] Age/Sex: 64 / FADM Date: 11/27/24 Loc: HO.ED Attending Dr: Ordering Physician: Rajwinder Bhatti CNP Date of Service: 11/27/24 Procedure(s): CT chest wo IV con Accession Number(s): [id number] cc: Rajwinder Bhatti CNP; Maranda Serna MD Report Number: [id number]: Total DLP = 543.00 mGy-cm CLINICAL HISTORY: cp, sob CT chest without contrast Comparison: CT - CHEST WITHOUT CONTRAST [id number] - 12/22/07 00:00 EST Findings: The prior [...] in OV> 11/27/242028 DD/ 27 TD/TT: 11/27/242027 Band Top Maker: [facility] External Provider IMG CT PROCEDURES Edited Result - Final * Lactic Acid (11/27/2024 5:48 PM EST) [facility] Lactic Acid 1.2 0.5 - 2.0 mmol/L [facility] 11/27/2024 5:48 PM EST 11/27/2024 5:54 PM EST Generic External Data Provider LAB BLOOD ORDERAB LES Final Result Performing Organization Address [facility] Co de Phone Number [facility] [address] [place] [address] [phone] * (ABNORMAL) High Sensitivity Troponin I (11/27/2024 4:48 PM EST) Only the most recent of2 resultswithin the time period is included. [facility] TROPONIN I HIGH SENSITIVITY 743.6(HH) <3.5 - 17.0 ng/L [facility] Comment:Critical value for t est(s): TROP Results called to and readback by: VICKIE Person calling: FLEImmediately Date: 11/27/24Time: 1717The [place] high sensitivity Troponin-I results should beused in conjunction with other diagnostic information suchas ECG, clinical observations and information, and patientsymptoms to aid in the diagnosis of VA. 11/27/2024 4:48 PM EST 11/27/2024 4:52 PM EST Generic External Data Provider LAB BLOOD ORDERAB LES Final Result Performing Organization Address [facility] Co de Phone Number [facility] [address] [place] [address] [phone] * (ABNORMAL) C-reactive Protein (11/27/2024 2:07 PM EST) [facility] C Reactive Protein 4.57(H) < or = 0.50 mg/dL [facility] 11/27/2024 2:07 PM EST 11/27/2024 2:10 PM EST us Generic External Data Provider LAB BLOOD ORDERAB LES Final Result [facility] [address] [place] [address] [phone] * (ABNORMAL) Comprehensive Metabolic Panel (11/27/2024 2:07 PM EST) Sodium 140 135 - 145 mmol/L [facility] Potassium 4.0 3.3 - 5.1 mmol/L [facility] Chloride 108 96 - 108 mmol/L [facility] Carbon Dioxide 26 22 - 29 mmol/L [facility] Anion Gap 10(L) 12 - 20 [facility] Urea Nitrogen (BUN) 32(H) 9 - 16 mg/dL [facility] Creatinine, Serum 1.60(H) 0.5 - 1.4 mg/dL [facility] Creatinine Clr Calc Pharmacy 36.8 [facility] Comment:Provided height and weight: 157.48 cm,89.1 kg.eGFR (calculated from the MDRD study equation) and eCrCl(calculated from the Cockcroft-Gault equation) are based ondifferent parameters and may not yield comparable results.If eCrCl result is absurd, please check patient'sheight/weight. Estimated Glomerular Filt Rate 32 [facility] Comment:Chronic Kidney Disea se: Estimated GFR < 60 mL/min/1.47h7Deqyzf Kidney Disease: Estimated GFR < 15 mL/min/1.73m2 Glucose 149(H) 60 - 115 mg/dL [facility] Calcium 8.6 8.4 - 10.2 mg/dL [facility] Bilirubin, Total 0.4 0.0 - 1.0 mg/dL [facility] Aspartate Amino Transferase 22 5 - 31 U/L [facility] Alanine Aminotransferase 9 0 - 31 U/L [facility] Total Protein 6.7 6.5 - 8.0 g/dL [facility] Albumin Level 3.5 3.5 - 5.0 g/dL [facility] Alkaline Phosphatase 108 39 - 117 U/L [facility] 11/27/2024 2:07 PM EST 11/27/2024 2:10 PM EST Generic External Data Provider LAB BLOOD ORDERAB LES Final Result Performing Organization Address [facility] Phone Number [facility] [address] [place] [phone] * D Dimer High Sensitivity (11/27/2024 2:06 PM EST) [facility] D Dimer High Sensitivity 204 NG/ML [facility] Comment:D-DIMER HS REFERENCE RANGENote: Our assay [...] ORDERAB LES Final Result Performing Organization Address [facility] Number [facility] [address] [place] [phone] * (ABNORMAL) CBC auto differential (11/27/2024 2:06 PM EST) [facility] White Blood Count 14.0(H) 4.8 - 10.8 X10*3/uL [facility] Red Blood Count 4.15(L) 4.20 - 5.50 X10*6/uL [facility] Hemoglobin 12.0 12.0 - 16.0 g/dl [facility] Hematocrit 36.9(L) 37.0 - 47.0 % [facility] Mean Corpuscular Volume 88.9 80.0 - 98.0 fL [facility] Mean Corpuscular Hemoglobin 28.9 27.0 - 33.0 pg [facility] Mean Corpuscular HGB Conc 32.5 31.0 - 35.0 g/dl [facility] Red Cell Distribution Width 15.7 11.0 - 16.0 % [facility] Platelet Count 294 160 - 400 X10*3/uL [facility] Mean Platelet Volume 11.3 9.4 - 12.3 fL [facility] Neutrophils Percent Auto 76.2(H) 45 - 73 % [facility] Imm Gran Pct Auto 0.4 0.0 - 0.4 % [facility] Lymphocytes Percent Auto 15.8(L) 20 - 40 % [facility] Monocytes Percent Auto 6.2 2 - 11 % [facility] Eosinophils Percent Auto 1.0 0 - 4 % [facility] Basophils Percent Auto 0.4 0 - 2 % [facility] NRBC Pct Auto 0.0 0.0 - 0.2 /100WBC [facility] Neutrophils Absolute Auto 10.7(H) 2.0 - 8.3 x10*3/uL [facility] Imm Gran Abs Auto 0.06(H) 0.00 - 0.03 X10*3/uL [facility] Lymphocytes Absolute Auto 2.2 1.2 - 4.9 X10*3/uL [facility] Monocytes Absolute Auto 0.9 0.1 - 1.2 X10*3/uL [facility] Eosinophils Absolute Auto 0.1 0.0 - 0.4 X10*3/uL [facility] Basophils Absolute Auto 0.1 0.0 - 0.2 X10*3/uL [facility] NRBC Abs Auto 0.000 0.0 - 0.012 X10*3/uL [facility] 11/27/2024 2:06 PM EST 11/27/2024 2:10 PM EST us Generic External Data Provider LAB BLOOD ORDERAB LES Final Result [facility] [address] [place] [address] [phone] * Prothrombin Time-INR (11/27/2024 2:06 PM EST) Prothrombin Time 12.1 10.9 - 12.4 SEC [facility] INTERNATIONAL NORM RATIO 1.0 0.9 - 1.1 [facility] Comment:INTERNATIONAL NORMAL IZED RATIO (INR) REFERENCE [...] ORDERAB LES Final Result Performing Organization Address [email or web address]] de Phone Number [facility] [address] [place] [phone] * (ABNORMAL) B Type Natriuretic Peptide (BNP) (11/27/2024 2:06 PM EST) Pathologist [facility] B Type Natriuretic Peptide 171(H) <100 pg/mL [facility] Comment:For those patients w ho are being treated with Natrecor(nesiritide, recombinant BNP), BNP testing should beperformed at least two hours post treatment in order toensure that only endogenous levels of BNP are detected. 11/27/2024 2:06 PM EST 11/27/2024 2:10 PM EST Generic External Data Provider LAB BLOOD ORDERAB LES Final Result Performing Organization Address [facility] [[email or web address]] de Phone Number [facility] [address] [place] [phone] * XR Chest 2 Views (11/27/2024 1:35 PM EST) Anatomical Region Laterality Modality Chest Radiographic Mary ging 11/27/2024 1:35 PM EST Narrative 11/27/2024 1:37 PM EST ? [facility] ?[address] ?[place] [address] ?XRay Report ? Signed ? Patient: Reji,Ese ?MR#: [id number] ?? 8 ? : 1960 ?Acct:[id number] ? Age/Sex: 64 / F ?ADM Date: 11/27/24 ? Loc: HO.ED ? Attending Dr: ? Ordering Physician: Shakira Godinez ?? Date of Service: 11/27/24 ?? Procedure(s): XR chest 2V ?? Accession Number(s): [id number] ? cc: Shakira Godinez; Maranda Serna MD ? CLINICAL HISTORY: cough ? 2 view chest x-ray ? Comparison: CT - CHEST WITHOUT CONTRAST [id number] - 12/22/07 00:00 EST ? Findings: ?? [...] ? DD/ 1335 ? TD/TT: 11/27/245 ? Band Top Maker: ? Procedure Note Constantin Falcon - 11/27/[address] [address] XRay Report Signed Patient: Ese MendozaMR#: [id number] 8 : 1960Acct:[id number] Age/Sex: 64 / FADM Date: 11/27/24 Loc: HO.ED Attending Dr: Ordering Physician: Shakira Godinez Date of Service: 11/27/24 Procedure(s): XR chest 2V Accession Number(s): [id number] cc: Shakira Godinez; Maranda Serna MD CLINICAL HISTORY: cough 2 view chest x-ray Comparison: CT - CHEST WITHOUT CONTRAST [id number] - 12/22/07 00:00 EST Findings: The lungs are clear. Heart size is normal. No acute fracture. IMPRESSION: 1. No acute findings. This document has been electronically signed by: Serina Nolan MD on 11/27/2024 13:35:59 Dictated By: Serina Nolan MD Signed By: <Electronically signed by Serina Nolan MD in OV> 11/27/24 1337 DD/ 1335 TD/TT: 11/27/241334 Band Top Maker: [facility] External Provider IMG XR PROCEDURES Edited Result - Final * SARS-CoV-2 RNA, Influenza A/B, and RSV RNA, Ql NAAT (11/27/2024 12:43 PM EST) Influenza A PCR NEGATIVE Negative [facility] Influenza B PCR NEGATIVE Negative [facility] Resp Syncy Virus RNA Qual PCR NEGATIVE Negative [facility] SARS COV2 PCR NEGATIVE Negative [facility] Comment:All test results mus t [...] use by authorized laboratories.Testing performed on the [employer] GeneXpert utilizingreal-time RT-PCR.All SARS CoV2 and positive influenza A/B results arereported to [facility]. 11/27/2024 12:4 3 PM EST 11/27/2024 12:51 PM EST Generic External Data Provider LAB MICROBIOLOGY - GENERAL ORDERABLES Final Result [facility] [address] [place] [address] [phone] * (ABNORMAL) POCT glycosylated hemoglobin (Hgb A1c) (07/19/2024 2:39 PM EDT) Hemoglobin A1C 9.3(A) 4.0 - 6.0 % QC Media Lot # [id number] Lot# Expiration Date [id number] Blood Capillary blood specimen / Unknown 07/19/2024 2:39 PM EDT Maranda Serna MD POINT OF CARE TEST ENTER/EDIT OR DERABLES Final Result * BI Mammogram Screening Tomosynthesis Bilateral (02/10/2024 2:40 PM EDT) Anatomical Region Laterality Modality Breast Bilateral Mammography 02/10/2024 2:40 PM EDT Narrative 02/22/2024 3:43 PM EDT ? [facility] [place] ? [address] ?[place] [address] ? Mammography Report ? Signed ? Patient: Reji,Ese ?MR#: [id number] ?? 8 ? : 1960 ?Acct:[id number] ? Age/Sex: 63 / F ?ADM Date: //24 ? Loc: HO.MAMMO ? Attending Dr: Maranda Serna MD ? Ordering Physician: Maranda Serna MD ?Results: 1Negative ? Date of Service: //24 ?Follow Up: 1 Year From Orig ?? inal Mammogram ? Procedure(s): MM tomosynthesis screening BI ?? Accession Number(s): [id number] ? cc: Maranda Serna MD ? EXAMINATION: [...] These include several, bilateral, ?? benign macrocalcifications ambulatory services representative of fat necrosis. ? MM/MM tomosynthesis [...] 1539 ? DD/ 1440 ? TD/TT: ? Band Top Maker: ? Procedure Note Ezekiel, Constantin - 02/22/2024 [place] [facility] [address] [place], [place] [address] Mammography Report Signed Patient: Ese Mendoza#: [id number] 8 : 1960Acct:[id number] Age/Sex: 63 / FADM Date: 02/10/24 Loc: HO.MAMMO Attending Dr: Maranda Serna MD Ordering Physician: Maranda Serna MDResults: 1Negative Date of Service: 02/10/24Follow Up: 1 Year From Orig ina Mammogram Procedure(s): MM tomosynthesis screening BI Accession Number(s): [id number] cc: Maranda Serna MD EXAMINATION: MM SCREENING [...] present. These include several, bilateral, benign macrocalcifications ambulatory services representative of fat necrosis. MM/MM tomosynthesis screening [...] in OV> 02/22/24 1539 DD/ 1440 TD/TT: Band Top Maker: Maranda Serna MD [facility] [place] BI PROCEDURES Edited Result - Final * (ABNORMAL) Lipid Panel with Reflex to Direct LDL (12/30/2023 4:50 PM EST) Triglycerides 177(H) <150 mg/dL [facility] Comment:Desirable Triglyceri de: less than 150 mg/dLBorderline High Triglyceride 150-199 mg/dLHigh Triglyceride: 200-499 mg/dLVery High Triglyceride: greater than or equal to 5OO mg/dL Cholesterol 235(H) <200 mg/dL [facility] Comment:Desirable Cholestero l: less than 200 mg/dLBorderline High Cholesterol: 200-239 mg/dLHigh Cholesterol: greater than 239 mg/dL LDL Cholesterol Calculated 151(H) <100 mg/dL [facility] Comment:Desirable LDL: less than 100 mg/dLNear Optimal/Above Optimal LDL: 110- 129 mg/dLBorderline High LDL: 130-159 mg/dLHigh LDL: 160-189 mg/dLVery High LDL: greater than or equal to 190 mg/dL HDL Cholesterol 49 >40 mg/dL [facility] Comment:Desirable HDL: great er than 40 mg/dL Note: This HDL assay may give artificially low results in patients with liver disease. Blood 12/30/2023 4:50 PM EST 12/30/2023 5:26 PM EST Maranda Serna MD LAB BLOOD ORDERABLES Final Resul t [facility] [address] [place] [address] [phone] * (ABNORMAL) Colonoscopy (07/07/2022) Colonoscopy Abnormal(A ) Normal [facility] External Provider HEALTH MAINTENANCE Final Result from Last 3 Months or Most Recently Relevant to Health Maintenance Insurance [facility] Care Teams Retail Administrative Assistant Relationship Specialty Start Date End Date Maranda Serna MD [address] [place] [phone] PCP - General Family Medicine 08/01/21
--- OUTSIDE RECORDS SUMMARY | 2024-12-23 13:09 | XMS_ITS | Encounter Summary ---
Author Organization [facility] Address [address] [facility] 7t [place] [address] Care Team Providers Care Safety Spec Name Role Phone Maranda Serna MD Primary Care Provider [phone] Reason for Visit * Reason Comments Med Refill Encounter Details Date Type Department Care Team (Late st Contact Info) Description 11/19/2023 Refill [facility] [address] [place], [place] [phone] Yesica Naylor MD [address] [place] [address] Social History Tobacco Use Types Packs/Day Years [...] Description 01/17/2025 11:00 AM EDT Office Visit [facility] [address] [place] [address] Maranda Serna MD [address] [place] [address] documented as of this encounter Visit Diagnoses Not on filedocumented in this encounter Additional Health Concerns Assessment Noted Time PHQ-9 Depression Total Score: 6 10/23/20 22 10:04 AM EST documented as of this encounter Care Teams Safety Spec Relationship Specialty Start Date End Date Maranda Serna MD [address] [place] [address] PCP - General Family Medicine 08/01/21 documented as of this encounter
--- OUTSIDE RECORDS SUMMARY | 2024-12-23 13:09 | XMS_ITS | Clinical Summary ---
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 insulin 11/22/2019 Diabetic peripheral [...] this topic Medical Devices Implanted Type Area Geochemical Manager Device Identifier Shelf Expiration Date Model / Serial / Lot [id number] Lens Iol 0 D +21.5 Brianda Mod L Bcnvx 13mm 6mm Posterior - [id number] Implanted:Qty: 1 on 01/27/2020 by Obinna Lorenzana MD at [facility], [place] [employer] [id number] / [id number] / Procedures Procedure Name Priority Date/Time Associated [...] 12:01 PM 01/27/2020 12:06 PM Care Teams Dietary Director Relationship Specialty Start Date End Date Viet Sánchez PA [address] [place] [address] PCP - General 06/18/18 Viet Sánchez PA [address] [place] [address] 06/18/18
--- OUTSIDE RECORDS SUMMARY | 2024-12-23 13:09 | XMS_ITS | Encounter Summary ---
Author Organization [facility] Address [address] [place] [address] Care Team Providers Care Industrial Services Worker Name Role Phone Viet Sánchez Unavailable [phone] Viet Sánchez Primary Care Provider [phone] Encounter Details Date Type Department Care Team (Late st Contact Info) Description 07/07/2018 Scanned Document [facility]rologic Surgery [place] [address] [facility] [address] [place] [address] Provider, Sheryl, [address] [place] [address] Social History Tobacco Use Types Packs/Day Years [...] on filedocumented in this encounter Care Teams Industrial Services Worker Relationship Specialty Start Date End Date Viet Sánchez PA [address] [place] [address] PCP - General 06/18/18 Viet Sánchez PA [address] [place] [address] 06/18/18 documented as of this encounter
--- OUTSIDE RECORDS SUMMARY | 2024-12-23 13:09 | XMS_ITS | Encounter Summary ---
Author Organization [employer] Address [address] [facility] 7t [place] [address] Care Team Providers Care Surgical Coder Name Role Phone Maranda Serna MD Primary Care Provider [phone] Encounter Details Date Type Department Care Team ([facility] st Contact Info) Description 04/22/2023 Orders Only [facility] [address] [place] [address] Maranda Serna MD [address] [place] [address] Left foot pain (Primary Dx); Type 2 diabetes mellitus with hyperglycemia, with long-term current use of insulin ([facility]) Social History Tobacco Use Types Packs/Day Years [...] Description 01/17/2025 11:00 AM EDT Office Visit [facility] [address] [place] [address] Maranda Serna MD [address] [place] [address] documented as of this encounter Visit Diagnoses Diagnosis Left foot pain- Primary Pain in soft tissues of limb Type 2 diabetes mellitus with hyperglycemia, with long-term current use of insulin ([facility]) documented in this encounter Additional Health Concerns Assessment Noted Time PHQ-9 Depression Total Score: 6 10/23/20 22 10:04 AM EST documented as of this encounter Care Teams Surgical Coder Relationship Specialty Start Date End Date Maranda Serna MD [address] [place] [address] PCP - General Family Medicine 08/01/21 documented as of this encounter
--- OUTSIDE RECORDS SUMMARY | 2024-12-23 13:09 | XMS_ITS | Encounter Summary ---
Author Organization [employer] Address [address] [facility] 7t [place] [address] Care Team Providers Care Foundation Drill Operator Name Role Phone Maranda Serna MD Primary Care Provider [phone] Reason for Visit * Reason Comments Transition Of Care (Tcm) HDF- unschedule d LVM Encounter Details Date Type Department Care Team ([facility] st Contact Info) Description 12/01/2024 Patient Outreach [facility] [address] [place], [place] [phone] Maranda Serna MD [address] [place] [address] Transition Of Care (Tcm) (HDF- unscheduled LVM [...] 12/01/24 0825 Hospital Discharges and Admission for [facility] Type of Visit Hospital Admission Date of Admission/Visit 11/27/24 Date of Discharge 11/30/24 [facility] Diagnosis NSTEMI (non-ST elevated myocardial infarction) [...] and Wednesdays,and Walk-In Urgent Care Located in [facility]. Patient provided with after-hours line for [facility], , which offer night time triage service and option to transfer to vitreo retinal surgeon provider if needed. CC scanned discharge summary into patient's chart. CC will place additional outreach call within2-5 business days. documented in this encounter Plan of Treatment Upcoming Encounters Date Type Department Care Team (Late st Contact Info) Description 01/17/2025 11:00 AM EDT Office Visit [facility] [address] [place] [address] Maranda Serna MD [address] [place] [address] documented as of this encounter Visit Diagnoses Not on filedocumented in this encounter Additional Health Concerns Assessment Noted Time PHQ-9 Depression Total Score: 6 10/23/20 10:04 AM EST documented as of this encounter Care Teams Foundation Drill Operator Relationship Specialty Start Date End Date Maranda Serna MD [address] [place] [address] PCP - General Family Medicine 08/01/21 documented as of this encounter
--- OUTSIDE RECORDS SUMMARY | 2024-12-23 13:09 | XMS_ITS | Encounter Summary ---
Author Organization [employer] Address [address] [facility] 7t [place] [address] Care Team Providers Care Grinder Set Up Operator Gear Tool Name Role Phone Maranda Serna MD Primary Care Provider [phone] Encounter Details Date Type Department Care Team ([facility] Contact Info) Description 11/27/2024 Orders Only [facility] External Provider, [facility] Social History Tobacco Use Types Packs/Day Years [...] Description 01/17/2025 11:00 AM EDT Office Visit [facility] [address] [place] [address] Maranda Serna MD [address] [place] [address] documented as of this encounter Procedures Procedure [...] Behavioral Care ?[address] ?[place] [address] ? CT Scan Report ? Signed ? Patient: Reji,Ese ?MR#: [id number] ?? 8 ? : 1960 ?Acct:[id number] ? Age/Sex: 64 / F ?ADM Date: 11/27/24 ? Loc: HO.ED ? Attending Dr: ? Ordering Physician: Rajwinder Bhatti CNP ?? Date of Service: 11/27/24 ?? Procedure(s): CT chest wo IV con ?? Accession Number(s): [id number] ? cc: Rajwinder Bhatti CNP; Maranda Serna MD ? Report Number: ?? [id number]: Total DLP = ??543.00 mGy-cm ? CLINICAL HISTORY: cp, sob ? CT chest without contrast ? Comparison: CT - CHEST WITHOUT CONTRAST [id number] - 12/22/07 00:00 EST ? Findings: The [...] ? DD/ 27 ? TD/TT: 11/27/242027 ? Screen Print Operator: ? Procedure Note Constantin Falcon - 11/27/[address] [address] [place] Scan Report Signed Patient: Ese MendozaMR#: [id number] 8 : 1960Acct:[id number] Age/Sex: 64 / FADM Date: 11/27/24 Loc: HO.ED Attending Dr: Ordering Physician: Rajwinder Bhatti CNP Date of Service: 11/27/24 Procedure(s): CT chest wo IV con Accession Number(s): [id number] cc: Rajwinder Bhatti CNP; Maranda Serna MD Report Number: [id number]: Total DLP = 543.00 mGy-cm CLINICAL HISTORY: cp, sob CT chest without contrast Comparison: CT - CHEST WITHOUT CONTRAST [id number] - 12/22/07 00:00 EST Findings: The prior [...] in OV> 11/27/242028 DD/ 27 TD/TT: 11/27/242027 Screen Print Operator: [facility] External Provider IMG CT PROCEDURES Edited Result - Final * Lactic Acid (11/27/2024 5:48 PM EST) [facility] Lactic Acid 1.2 0.5 - 2.0 mmol/L [facility] 11/27/2024 5:48 PM EST 11/27/2024 5:54 PM EST Generic External Data Provider LAB BLOOD ORDERAB LES Final Result [facility] [address] [place] [phone] * (ABNORMAL) High Sensitivity Troponin I (11/27/2024 4:48 PM EST) Pathologist [facility] TROPONIN I HIGH SENSITIVITY 743.6(HH) <3.5 - 17.0 ng/L [facility] Comment:Critical value for t est(s): TROP Results called to and readback by: VICKIE Person calling: XIN Date: 11/27/24Time: 1717The Castillo high sensitivity Troponin-I results should beused in conjunction with other diagnostic information suchas ECG, clinical observations and information, and patientsymptoms to aid in the diagnosis of [place]. 11/27/2024 4:48 PM EST 11/27/2024 4:52 PM EST Generic External Data Provider LAB BLOOD ORDERAB LES Final Result Performing Organization Address [facility]/ZIP Co de Phone Number [facility] [address] [place] [phone] * (ABNORMAL) C-reactive Protein (11/27/2024 2:07 PM EST) [facility] C Reactive Protein 4.57(H) < or = 0.50 mg/dL [facility] 11/27/2024 2:07 PM EST 11/27/2024 2:10 PM EST [employer] External Data Provider LAB BLOOD ORDERAB LES Final Result Performing Organization Address [facility]/ZIP Co de Phone Number [facility] [address] [place] [phone] * (ABNORMAL) Comprehensive Metabolic Panel (11/27/2024 2:07 PM EST) [facility] Sodium 140 135 - 145 mmol/L [facility] Potassium 4.0 3.3 - 5.1 mmol/L [facility] Chloride 108 96 - 108 mmol/L [facility] Carbon Dioxide 26 22 - 29 mmol/L [facility] Anion Gap 10(L) 12 - 20 [facility] Urea Nitrogen (BUN) 32(H) 9 - 16 mg/dL [facility] Creatinine, Serum 1.60(H) 0.5 - 1.4 mg/dL [facility] Creatinine Clr Calc Pharmacy 36.8 [facility] Comment:Provided height and weight: 157.48 cm,89.1 kg.eGFR (calculated from the MDRD study equation) and eCrCl(calculated from the Cockcroft-Gault equation) are based ondifferent parameters and may not yield comparable results.If eCrCl result is absurd, please check patient'sheight/weight. Estimated Glomerular Filt Rate 32 [facility] Comment:Chronic Kidney Disea se: Estimated GFR < 60 mL/min/1.26q3Pkugkq Kidney Disease: Estimated GFR < 15 mL/min/1.73m2 Glucose 149(H) 60 - 115 mg/dL [facility] Calcium 8.6 8.4 - 10.2 mg/dL [facility] Bilirubin, Total 0.4 0.0 - 1.0 mg/dL [facility] Aspartate Amino Transferase 22 5 - 31 U/L [facility] Alanine Aminotransferase 9 0 - 31 U/L [facility] Total Protein 6.7 6.5 - 8.0 g/dL [facility] Albumin Level 3.5 3.5 - 5.0 g/dL [facility] Alkaline Phosphatase 108 39 - 117 U/L [facility] 11/27/2024 2:07 PM EST 11/27/2024 2:10 PM EST us Generic External Data Provider LAB BLOOD ORDERAB LES Final Result [facility] [address] [place] [phone] * (ABNORMAL) B Type Natriuretic Peptide (BNP) (11/27/2024 2:06 PM EST) B Type Natriuretic Peptide 171(H) <100 pg/mL [facility] Comment:For those patients w ho are being treated with Natrecor(nesiritide, recombinant BNP), BNP testing should beperformed at least two hours post treatment in order toensure that only endogenous levels of BNP are detected. 11/27/2024 2:06 PM EST 11/27/2024 2:10 PM EST Generic External Data Provider LAB BLOOD ORDERAB LES Final Result Performing Organization Address [facility] Co de Phone Number [facility] [address] [place] [phone] * D Dimer High Sensitivity (11/27/2024 2:06 PM EST) Pathologist [facility] D Dimer High Sensitivity 204 NG/ML [facility] Comment:D-DIMER HS REFERENCE RANGENote: Our assay reports D-Dimer Units (D- DU).The cut-off value for venous thromboembolic (VTE) disease is230 ng/mL. This value has a very high negative predictivevalue when the patient has a low to moderate clinicalprobability of VTE.The upper limit of normal is 243 ng/mL. 11/27/2024 2:06 PM EST 11/27/2024 2:10 PM EST [employer] External Data Provider LAB BLOOD ORDERAB LES Final Result Performing Organization Address [facility] Co de Phone Number [facility] [address] [place] [phone] * (ABNORMAL) High Sensitivity Troponin I (11/27/2024 2:06 PM EST) Pathologist [facility] TROPONIN I HIGH SENSITIVITY 702.1(HH) <3.5 - 17.0 ng/L [facility] Comment:Critical value for t est(s): TROP Results called to and readback by: ABIMAEL Person calling: XIN Date: 11/27/24 Time:1435The Castillo high sensitivity Troponin-I results should beused in conjunction with other diagnostic information suchas ECG, clinical observations and information, and patientsymptoms to aid in the diagnosis of [place]. 11/27/2024 2:06 PM EST 11/27/2024 2:10 PM EST Generic External Data Provider LAB BLOOD ORDERAB LES Final Result Performing Organization Address [facility] de Phone Number [facility] [address] [place] [phone] * Prothrombin Time-INR (11/27/2024 2:06 PM EST) Prothrombin Time 12.1 10.9 - 12.4 SEC [facility] INTERNATIONAL NORM RATIO 1.0 0.9 - 1.1 [facility] Comment:INTERNATIONAL NORMAL IZED RATIO (INR) [...] 2:06 PM EST 11/27/2024 2:10 PM EST [employer] External Data Provider LAB BLOOD ORDERAB LES Final Result Performing Organization Address [facility] de Phone Number [facility] [address] [place] [phone] * XR Chest 2 Views (11/27/2024 1:35 PM EST) Anatomical Region Laterality Modality Chest Radiographic Mary ging 11/27/2024 1:35 PM EST Narrative 11/27/2024 1:37 PM EST ? [facility] ?[address] ?[place] [address] ?XRay Report ? Signed ? Patient: Reji,Ese ?MR#: [id number] ?? 8 ? : 1960 ?Acct:[id number] ? Age/Sex: 64 / F ?ADM Date: 01/18/25 ? Loc: HO.ED ? Attending Dr: ? Ordering Physician: Shakira Godinez ?? Date of Service: 11/27/24 ?? Procedure(s): XR chest 2V ?? Accession Number(s): [id number] ? cc: Shakira Godinez; Maranda Serna MD ? CLINICAL HISTORY: cough ? 2 view chest x-ray ? Comparison: CT - CHEST WITHOUT CONTRAST [id number] - 12/22/07 00:00 EST ? Findings: ?? [...] DD/ 1335 ? TD/TT: 11/27/24 1335 ? Screen Print Operator: ? Procedure Note Ezekiel, Image - 11/27/2024 [place] [address] XRay Report Signed Patient: Ese MendozaMR#: [id number] 8 : 1960Acct:[id number] Age/Sex: 64 / FADM Date: 11/27/24 Loc: HO.ED Attending Dr: Ordering Physician: Shakira Godinez Date of Service: 11/27/24 Procedure(s): XR chest 2V Accession Number(s): [id number] cc: Shakira Godinez; Maranda Serna MD CLINICAL HISTORY: cough 2 view chest x-ray Comparison: CT - CHEST WITHOUT CONTRAST [id number] - 2/10/17 00:00 EST Findings: The lungs are clear. Heart size is normal. No acute fracture. IMPRESSION: 1. No acute findings. This document has been electronically signed by: Serina Nolan MD on 11/27/2024 13:35:59 Dictated By: Serina Nolan MD Signed By: <Electronically signed by Serina Nolan MD in OV> 11/27/24 1337 DD/ 1335 TD/TT: 11/27/24 1335 Screen Print Operator: [facility] External Provider IMG XR PROCEDURES Edited Result - Final documented in this encounter Visit Diagnoses Not on filedocumented in this encounter Additional Health Concerns Assessment Noted Time PHQ-9 Depression Total Score: 6 10/23/20 22 10:04 AM EST documented as of this encounter Care Teams Grinder Set Up Operator Gear Tool Relationship Specialty Start Date End Date Maranda Serna MD [address] [place] [address] PCP - General Family Medicine 08/01/21 documented as of this encounter
--- OUTSIDE RECORDS SUMMARY | 2024-12-23 13:09 | XMS_ITS | Clinical Summary ---
Author Organization [facility] Address [address] [place] [address] Care Team Providers Care Semiconductor Packages Sealer Name Role Phone ChapispriscillaViet Primary Care Provider [phone] Allergies Active Allergy Reactions Criticality Noted Date [...] age to complete this topic Care Teams Semiconductor Packages Sealer Relationship Specialty Start Date End Date Viet Sánchez [address] [place] [address] PCP - General Medical Services 06/19/18
--- OUTSIDE RECORDS SUMMARY | 2024-12-23 13:09 | XMS_ITS | Encounter Summary ---
Author Organization [employer] Address [address] [facility] 7t [place] [address] Care Team Providers Care Photograph Retoucher Name Role Phone Maranda Serna MD Primary Care Provider [phone] Reason for Visit * Reason Onset Date Comments Appointment Request 05/28/2024 Encounter Details Date Type Department Care Team ([facility] st Contact Info) Description 05/28/2024 Telephone [facility] [address] [place], [place] [phone] Maranda Serna MD [address] [place], [place] [phone] Appointment Request Social History Tobacco Use Types [...] Description 01/17/2025 11:00 AM EDT Office Visit [facility] [address] [place] [address] Maranda Serna MD [address] [place] [address] documented as of this encounter Visit Diagnoses Not on filedocumented in this encounter Additional Health Concerns Assessment Noted Time PHQ-9 Depression Total Score: 6 10/23/20 22 10:04 AM EST documented as of this encounter Care Teams Photograph Retoucher Relationship Specialty Start Date End Date Maranda Serna MD [address] [place] [address] PCP - General Family Medicine 08/01/21 documented as of this encounter
--- OUTSIDE RECORDS SUMMARY | 2024-12-23 13:09 | XMS_ITS | Patient Health Record ---
Author Organization [employer] Address [address] [facility] [id number] [place] [address] Care Team Providers Care Environmental Inspector Name Role Phone Larisa Saldana Primary Care Provider [phone] ALLERGIES Allergen (clinical drug ingredient) Drug/Non Drug [...] diabetes mellitus without complications (E11.9) Active confirmed 985972941 Problem Type 2 diabetes mellitus with diabetic polyneuropathy (E11.42) Active confirmed 25984073 Problem Other chronic pain (G89.29) Active confirmed 56132363 Problem Age-related nuclear cataract, bilateral (H25.13) Active confirmed Nuclear senile cataract (061155094) Problem Diabetes (E11.9) Active confirmed Diabe carlos mellitus without complication (710985502) Problem Dyslipidemia (E78.5) Active confirmed 097610112 Problem HTN (hypertension) (I10) Active confirmed Hypertension (26206719) Problem Arthritis (M19.90) Active confirmed 372 3001 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) Active confirmed 039096952 Problem Controlled diabetes mellitus with diabetic neuropathy (E11.40) Active confirmed Diabetic peripheral neuropathy associated with type 2 diabetes mellitus (2103439910052) Problem Type 2 diabetes mellitus with mild nonproliferative diabetic retinopathy without macular edema, bilateral (E11.3293) Active confirmed Mild nonproliferative retinopathy due to type 2 diabetes mellitus (027628512607686) Problem Left retinal detachment (H33.22) Active confirmed Serous r etinal detachment (55704270) Problem Menopausal and postmenopausal disorder (N95.9) Active confirmed 700950641 PLAN OF TREATMENT Pending Test Test Name [...] End Date MACKENZIE Hughes [address] [place] [address] [id number] Ese Mendoza Self - patient is the insured MEDICAID DENTAL [address] [place] [address] [id number] Ese Mendoza Self - patient is the [...]
--- OUTSIDE RECORDS SUMMARY | 2024-12-23 13:09 | XMS_ITS | Encounter Summary ---
Author Organization [employer] Address 75 [facility] 7t [place] [address] Care Team Providers Care Color Repairer Name Role Phone Maranda Serna MD Primary Care Provider [phone] Reason for Visit * Reason Comments Transition Of Care (Tcm) HDF- Unschedule d THIRD LVM Encounter Details Date Type Department Care Team ([facility] st Contact Info) Description 12/08/2024 Telephone [facility] MEDICINE [address] [place], [place] [phone] Maranda Serna MD 230 [place], [place] [phone] Transition Of Care (Tcm) (HDF- Unscheduled THIRD [...] 12/08/24 0800 Hospital Discharges and Admission for [facility] Type of Visit Hospital Admission Date of Admission/Visit 11/27/24 Date of Discharge 11/30/24 [facility] Diagnosis NSTEMI (non-ST elevated myocardial infarction) Disposition [...] Wednesdays, and Walk-In Urgent Care Located in [facility]. Patient provided with after-hoursline for [facility], , which offer night time triage service and option to transfer to on callprovider if needed. CC will await return call from the patient. documented in this encounter Plan of Treatment Upcoming Encounters Date Type Department Care Team (Late st Contact Info) Description 01/17/2025 11:00 AM EDT Office Visit [facility] MEDICINE [address] [place] [address] Maranda Serna MD [address] [place] [address] documented as of this encounter Visit Diagnoses Not on filedocumented in this encounter Additional Health Concerns Assessment Noted Time PHQ-9 Depression Total Score: 6 10/23/20 22 10:04 AM EST documented as of this encounter Care Teams Color Repairer Relationship Specialty Start Date End Date Maranda Serna MD [address] [place] [address] PCP - General Family Medicine 08/01/21 documented as of this encounter
--- OUTSIDE RECORDS SUMMARY | 2024-12-23 13:09 | XMS_ITS | Encounter Summary ---
Author Organization [facility] Address [address] [place] [address] Care Team Providers Care Medical Assisting Instructor Name Role Phone Viet Sánchez Unavailable [phone] Viet Sánchez Primary Care Provider Encounter Details Date Type Department Care Team (Late st Contact Info) Description 08/06/2018 Scanned Document [facility] Urologic Surgery [place] [address] [facility] [address] [place] [address] Provider, MD Sheryl [address] [place] [address] Social History Tobacco Use Types Packs/Day Years [...] on filedocumented in this encounter Care Teams Medical Assisting Instructor Relationship Specialty Start Date End Date Viet Sánchez PA [address] [place] [address] PCP - General 06/18/18 Viet Sánchez PA [address] [place] [address] 06/18/18 documented as of this encounter
--- OUTSIDE RECORDS SUMMARY | 2024-12-23 13:09 | XMS_ITS | Encounter Summary ---
Author Organization [employer] Address 75 [facility] 7t [place] [address] Care Team Providers Care Hardware Designer Name Role Phone Maranda Serna MD Primary Care Provider [phone] Reason for Visit * Reason Comments Transition Of Care (Tcm) HDF- Unschedule d second LVM Encounter Details Date Type Department Care Team ([facility] st Contact Info) Description 12/02/2024 Patient Outreach [facility] MEDICINE [address] [place], [place] [phone] Maranda Serna MD 230 [place], [place] [phone] Transition Of Care (Tcm) (HDF- Unscheduled second [...] 12/02/24 0819 Hospital Discharges and Admission for [facility] Type of Visit Hospital Admission Date of Admission/Visit 11/30/24 Date of Discharge 12/01/24 Facility [facility] Diagnosis NSTEMI, initial episode of care,Acute [...] Wednesdays, and Walk-In Urgent Care Located in [facility]. Patient provided with after-hours line for [facility], , which offer night time triage service and option to transfer to complaint investigations officer provider if needed. CC will await return call from the patient. documented in this encounter Plan of Treatment Upcoming Encounters Date Type Department Care Team (Late st Contact Info) Description 01/17/2025 11:00 AM EDT Office Visit [facility] MEDICINE [address] [place] [address] Maranda Serna MD [address] [place] [address] documented as of this encounter Visit Diagnoses Not on filedocumented in this encounter Additional Health Concerns Assessment Noted Time PHQ-9 Depression Total Score: 6 10/23/20 22 10:04 AM EST documented as of this encounter Care Teams Hardware Designer Relationship Specialty Start Date End Date Maranda Serna MD [address] [place] [address] PCP - General Family Medicine 08/01/21 documented as of this encounter
--- OUTSIDE RECORDS SUMMARY | 2024-12-23 13:09 | XMS_ITS | Clinical Summary ---
Author Organization [facility] Address [address] [place] [phone] Phone Care Team Providers Care Sales Representative [employer] Name Role Phone Maranda Serna MD Primary Care Provider [phone] Allergies Active Allergy Reactions Criticality Noted Date [...] 21 Active Cholecalciferol (Vitamin D3) 1.25 MG (90026 UT) capsule See Instructions, Per pt., takes [...] lumbar spine. Will obtain interval history from floor space allocator Karlee Le. - RTC in 4 months [...] pure alcohol) Intermittently Hot Amanda. Tea with [place] only if sick Comments Unknown Sex and [...] Insurance [place] Care Teams Sales Representative [employer] Liqu[employer] Relationship Specialty Start Date End Date Maranda Serna MD [address] [place] [address] PCP - General Family Medicine 08/24/21
--- OUTSIDE RECORDS SUMMARY | 2024-12-23 13:09 | XMS_ITS | Encounter Summary ---
Author Organization [employer] Address 75 [facility] 7t [place] [address] Care Team Providers Care Certified Histologic Technician Name Role Phone Maranda Serna MD Primary Care Provider [phone] Reason for Visit * Reason Onset Date Comments Med Refill 12/13/2024 Encounter Details Date Type Department Care Team ([facility] st Contact Info) Description 12/13/2024 Refill [facility] MEDICINE [address] [place], [place] [phone] Maranda Serna MD 230 [place], [place] [phone] Social History Tobacco Use Types Packs/Day Years [...] sent on 11/16/24 with 2 refills to [facility]. Next appointment 01/17/25. * Telephone Encounter - Grayson Broussard - 12/13/2024 1:03 PM EST TC from pt requesting medication refill. Medications needing refill : Tresiba FlexTouch 100 UNIT/ML injection insulin lispro (HumaLOG) 100 UNIT/ML injection To be sent to: [facility] - [place], [place] - [address] [facility] documented in this encounter Plan of Treatment Upcoming Encounters Date Type Department Care Team (Late st Contact Info) Description 01/17/2025 11:00 AM EDT Office Visit [facility] MEDICINE [address] [place] [address] Maranda Serna MD [address] [place] [address] documented as of this encounter Visit Diagnoses Not on filedocumented in this encounter Additional Health Concerns Assessment Noted Time PHQ-9 Depression Total Score: 6 10/23/20 10:04 AM EST documented as of this encounter Care Teams Certified Histologic Technician Relationship Specialty Start Date End Date Maranda Serna MD 230 [place] [address] PCP - General Family Medicine 08/01/21 documented as of this encounter
--- OUTSIDE RECORDS SUMMARY | 2024-12-23 13:09 | XMS_ITS | Encounter Summary ---
Author Organization [facility] Address [address] [facility] [address] [place] [address] Phone Care Team Providers Care Production Graphic Designer Name Role Phone Maranda Serna MD Primary Care Provider [phone] Encounter Details Date Type Department Care Team (Late st Contact Info) Description 05/17/2024 Office Communication [facility] [address] [place] [address] [place] [address] Marci Gleason ARNP [address] [facility] [address] [place] [address] Social History Tobacco Use Types Packs/Day Years Used Date Smoking Tobacco: Never Smokeless Tobacco: Never Alcohol Use Standard Drinks/Week Comments Yes 0 (1 standard drink = 0.6 oz pure alcohol) Intermittently Hot Amanda. Tea with [place] only if sick Comments Unknown Sex and [...] on filedocumented in this encounter Care Teams Production Graphic Designer Relationship Specialty Start Date End Date Maranda Serna MD [address] [place] [phone] PCP - General Family Medicine 08/24/21 documented as of this encounter
--- OUTSIDE RECORDS SUMMARY | 2024-12-23 13:09 | XMS_ITS | Encounter Summary ---
Author Organization [employer] Address 75 [facility] 7t [place] [address] Care Team Providers Care Set Builder Name Role Phone Maranda Serna MD Primary Care Provider [phone] Reason for Visit * Reason Onset Date Comments requesting a call back 12/19/2022 Encounter Details Date Type Department Care Team ([facility] Contact Info) Description 12/19/2022 Telephone [facility] MEDICINE [address] [place], [place] [phone] Maranda Serna MD [address] [place], [place] [phone] requesting a call back Social History Tobacco [...] POS on 10/23/2022 their phone number is [phone] office opens at 9:15 pt can call [...] was scheduled for today. Please contact at [phone] documented in this encounter Plan of Treatment Upcoming Encounters Date Type Department Care Team (Late st Contact Info) Description 01/17/2025 11:00 AM EDT Office Visit [facility] MEDICINE [address] [place] [address] Maranda Serna MD [address] [place], [place] [phone] documented as of this encounter Visit Diagnoses Not on filedocumented in this encounter Additional Health Concerns Assessment Noted Time PHQ-9 Depression Total Score: 6 10/23/20 22 10:04 AM EST documented as of this encounter Care Teams Set Builder Relationship Specialty Start Date End Date Maranda Serna MD [address] [place] [address] PCP - General Family Medicine 08/01/21 documented as of this encounter
--- OUTSIDE RECORDS SUMMARY | 2024-12-23 13:09 | XMS_ITS | Encounter Summary ---
Author Organization [employer] Address 75 [facility] 7t [place] [address] Care Team Providers Care Cardiology Consultants Name Role Phone Maranda Serna MD Primary Care Provider [phone] Reason for Visit * Reason Onset Date Comments Hospital Follow-up 12/07/2024 Encounter Details Date Type Department Care Team ([facility] Contact Info) Description 12/07/2024 Telephone [facility] MEDICINE 230 [place], [place] [phone] Maranda Serna MD [address] [place], [place] [phone] Hospital Follow-up Social History Tobacco Use Types [...] follow up. Pt requested a call back. [phone] (Pt Contact) documented in this encounter Plan of Treatment Upcoming Encounters Date Type Department Care Team (Late st Contact Info) Description 01/17/2025 11:00 AM EDT Office Visit [facility] MEDICINE [address] [place] [address] Maranda Serna MD [address] [place] [address] documented as of this encounter Visit Diagnoses Not on filedocumented in this encounter Additional Health Concerns Assessment Noted Time PHQ-9 Depression Total Score: 6 10/23/20 22 10:04 AM EST documented as of this encounter Care Teams Cardiology Consultants Relationship Specialty Start Date End Date Maranda Serna MD [address] [place] [address] PCP - General Family Medicine 08/01/21 documented as of this encounter
--- OUTSIDE RECORDS SUMMARY | 2024-12-23 13:09 | XMS_ITS | Encounter Summary ---
Author Organization [facility] Address [address] [place] [address] Care Team Providers Care Supervisor Sawmill Name Role Phone Viet Sánchez Unavailable [phone] Viet Sánchez Primary Care Provider Encounter Details Date Type Department Care Team (Late st Contact Info) Description 02/18/2020 Scanned Document [facility] [address] [place] [phone] Provider, Sheryl, [address] [place] [address] Social History Tobacco Use Types Packs/Day Years [...] on filedocumented in this encounter Care Teams Supervisor Sawmill Relationship Specialty Start Date End Date Viet Sánchez PA [address] [place] [address] PCP - General 06/18/18 Viet Sánchez PA [address] [place] [address] 06/18/18 documented as of this encounter
--- OUTSIDE RECORDS SUMMARY | 2024-12-23 13:09 | XMS_ITS | Clinical Summary ---
Author Organization [facility] Address [address] [place] [address] Care Team Providers Care Supply Chain Development Manager Name Role Phone Viet Sánchez Primary Care Provider [phone] Allergies Active Allergy Reactions Criticality Noted Date [...] lumbar spine. Will obtain interval history from marketing analytics manager Karlee Le. - RTC in 4 months [...] polyneuropathy, with long-term current use of insulin ([facility]) POCT HEMOGLOBIN, A1C Routine 02/09/2019 8:10 AM EDT Type 2 diabetes mellitus with diabetic polyneuropathy, with long-term current use of insulin ([facility]) HIV COMBO ANTIGEN/ANTIBODY Routine 10/06/2018 3:59 PM EST Polyarthralgia from Last 3 Months or Most Recently Relevant to Health Maintenance Results * Microalbumin/creatinine ratio (02/09/2019 10:15 AM EDT) Microalbumin/Creat Ratio 20 2 - 20 mg/g Creat 02/09/2019 11:55 AM EDT [facility] Creatinine, random urine 101 mg/dL 02/09/2019 11:55 AM EDT [facility] Comment: The laboratory does not have established reference ranges for this test. Interpretation of results is at the discretion of the ordering physician. Urine specimen (specimen) Urine specimen obtained by clean catch procedure / Unknown Non-blood Collection / Unknown 02/09/2019 10:15 AM EDT 02/09/2019 10:15 AM EDT us Keke Katz APRN LAB URINE ORDERABLES Final Res ult [facility] [address] [place] [address], [place] [phone] * POCT hemoglobin, A1c (02/09/2019 8:10 AM EDT) POCT Hemoglobin A1C 9.2 4.4 - 6.4 % Blood specimen (specimen) 02/09/2019 8:10 AM EDT us Jadarijuan c Salamancann BRANCH SERVICE LEADER POCT ORDERABLES NO CHARGE Machelle l Result * HIV combo antigen/antibody (10/06/2018 3:59 PM EST) HIV Combo AB/AG Negative Negative 10/06/2018 6:02 PM EST [facility] Blood specimen (specimen) Venous blood specimen / Unknown Venipuncture / Unknown 10/06/2018 3:59 PM EST 10/06/2018 3:59 PM EST Narrative [facility] - 10/06/2018 6:02 PM EST This test is a 4th generation HIV Antigen-Antibody Combination assay, using a chemiluminescent microparticle immunoassay, for the simultaneous qualitative detection of human immuno- deficiency virus (HIV) p24 antigen and antibodies to HIV type 1 (HIV-1) and/or HIV type 2 (HIV-2) in human serum or plasma. The [employer] Desktop Analyst HIV Ag/Ab Combo assay is intended to [...] BLOOD ORDERABLES NO ST AT Final Result [facility] [address] [place] [address], [place] [phone] from Last 3 Months or Most Recently Relevant to Health Maintenance Insurance MEDICAID [place] [employer] Care Teams Supply Chain Development Manager Relationship Specialty Start Date End Date Viet Sánchez PA [address] [place] [address] PCP - General Family Medicine 07/22/18
--- OUTSIDE RECORDS SUMMARY | 2024-12-23 13:09 | XMS_ITS | Encounter Summary ---
Author Organization [facility] Address [address] [place] [address] Care Team Providers Care Surgical Training Specialist Name Role Phone Viet Sánchez Unavailable [phone] Viet Sánchez Primary Care Provider [phone] Encounter Details Date Type Department Care Team (Late st Contact Info) Description 02/02/2020 Prep for Surgery OPHTHALMOLOGY [address] [place] [address] Holland Hunt MD 85 [facility] [address] [facility] [place] [phone] Social History Tobacco Use Types Packs/Day Years [...] on filedocumented in this encounter Care Teams Surgical Training Specialist Relationship Specialty Start Date End Date Viet Sánchez PA 8[address] [place] [address] PCP - General 06/18/18 Viet Sánchez PA [address] [place] [address] 06/18/18 documented as of this encounter
--- OUTSIDE RECORDS SUMMARY | 2024-12-23 13:09 | XMS_ITS | Encounter Summary ---
Author Organization [employer] Address 75 [facility] 7t [place] [address] Care Team Providers Care Locomotive Operator Name Role Phone Maranda Serna MD Primary Care Provider [phone] Reason for Visit * Reason Onset Date Comments Durable Medical Equipment 05/26/2024 Encounter Details Date Type Department Care Team ([facility] st Contact Info) Description 05/26/2024 Telephone [facility] MEDICINE [address] [place], [place] [phone] Maranda Serna MD [address] [place], [place] [phone] Durable Medical Equipment Social History Tobacco Use [...] walker. Pt stated she was advised by senior architect jigneshow up with orthopedic and they prescribed a walker for the pt. Pt wants script send over to [facility] [address] If any questions you can contact pt at [phone]. documented in this encounter Plan of Treatment Upcoming Encounters Date Type Department Care Team ([facility] st Contact Info) Description 01/17/2025 11:00 AM EDT Office Visit [facility] MEDICINE [address] [place] [address] Maranda Serna MD [address] [place] [address] documented as of this encounter Visit Diagnoses Not on filedocumented in this encounter Additional Health Concerns Assessment Noted Time PHQ-9 Depression Total Score: 6 10/23/20 22 10:04 AM EST documented as of this encounter Care Teams Locomotive Operator Relationship Specialty Start Date End Date Maranda Serna MD [address] [place] [address] PCP - General Family Medicine 08/01/21 documented as of this encounter
--- OUTSIDE RECORDS SUMMARY | 2024-12-23 13:09 | XMS_ITS | Encounter Summary ---
Author Organization [facility] Address [address] [place] [address] Care Team Providers Care Provider Service Representative Name Role Phone Viet Sánchez Unavailable [phone] Viet Sánchez Primary Care Provider Encounter Details Date Type Department Care Team (Late st Contact Info) Description 11/09/2019 Prep for Surgery OPHTHALMOLOGY [address] [place] [address] Holland Hunt MD 85 [facility] [address] [place] [address] Social History Tobacco Use Types Packs/Day Years [...] on filedocumented in this encounter Care Teams Provider Service Representative Relationship Specialty Start Date End Date Viet Sánchez PA [address] [place] [address] PCP - General 06/18/18 Viet Sánchez PA 9 [place] [address] 06/18/18 documented as of this encounter
--- OUTSIDE RECORDS SUMMARY | 2024-12-23 13:09 | XMS_ITS | Encounter Summary ---
Author Organization [facility] Address [address] [place] [address] Care Team Providers Care Cloth Printing Back Tender Name Role Phone Viet Sánchez Unavailable [phone] Viet Sánchez Primary Care Provider [phone] Encounter Details Date Type Department Care Team (Late st Contact Info) Description 05/22/2020 Scanned Document [facility] [address] [address] Deja Rico, [place] [address] Social History Tobacco Use Types Packs/Day Years [...] on filedocumented in this encounter Care Teams Cloth Printing Back Tender Relationship Specialty Start Date End Date Viet Sánchez PA [address] [place] [address] PCP - General 06/18/18 Viet Sánchez PA [address] [place] [address] 06/18/18 documented as of this encounter
--- OUTSIDE RECORDS SUMMARY | 2024-12-23 13:09 | XMS_ITS | Encounter Summary ---
Author Organization [employer] Address 75 [facility] 7t [place] [address] Care Team Providers Care Laboratory Scientist Name Role Phone Maranda Serna MD Primary Care Provider [phone] Reason for Visit * Reason Comments Med Refill Encounter Details Date Type Department Care Team (Late st Contact Info) Description 12/14/2024 Refill [facility] MEDICINE 230 [place], [place] [phone] Maranda Serna MD 230 [place], [place] [phone] Type 2 diabetes mellitus with hyperglycemia, with long-term current use of insulin ([facility]) Social History Tobacco Use [...] 01/17/2025 11:00 AM EDT Office Visit [facility] MEDICINE [address] [place] [address] Maranda Serna MD [address] [place] [address] documented as of this encounter Visit Diagnoses Diagnosis Type 2 diabetes mellitus with hyperglycemia, with long-term current use of insulin ([facility]) documented in this encounter Additional Health Concerns Assessment Noted Time PHQ-9 Depression Total Score: 6 10/23/20 22 10:04 AM EST documented as of this encounter Care Teams Laboratory Scientist Relationship Specialty Start Date End Date Maranda Serna MD [address] [place] [address] PCP - General Family Medicine 08/01/21 documented as of this encounter
== END 2024-12-23 13:44 | disposition home or self-care (01) ==
PROVIDERS: PCP Family Medicine; Visit Provider Urology
DX: N32.81 Overactive bladder (principal); R32 Unspecified urinary incontinence; N39.0 Urinary tract infection, site not specified; E11.9 Type 2 diabetes mellitus without complications; Z13.9 Encounter for screening, unspecified
CPT/HCPCS: 99214

== ENCOUNTER 2025-01-03 12:53 | Outpatient (AMB) | payer MEDICAID, SELFPAY ==
--- NOTE | 2025-01-03 12:54 | A.OFFVIS_ITS ---
Vital Signs 01/03/25 13:10 Height 5 ft 2 in Weight 204 lb 2.369 oz BMI 37.3 BP 154/74 H Blood Pressure Location Rt brachial Position Sitting Pulse 114 H Pulse Source Pulse Oximeter Pulse Oximetry (%) 97 Oxygen Delivery Method Room Air Intake Visit Reasons: 3 month follow up Intake Note: ESTABLISHED PATIENT for GERD, IBS mgmt. RAST done. Chief Complaint; Pt reports that their GI conditions are fairly well managed currently. Pt does report having other complications regarding their cardiac health as of late. Pt had recent admission to [facility] and transfer to [facility] for cardiac condition mgmt. 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 Avoid dietary triggers and late night snacking. Staying upright for minimum 3 hours after meals discussed with patient. High- fiber diet. Avoid food that is high in fat and greasy. Status post cholecystectomy symptoms of postprandial diarrhea could be related to that. Patient also reports abdominal bloating. Continue digestive enzymes with food 3 to 4 times a day. Patient reports postnasal drip. Will check RAST allergen test. Patient was encouraged to avoid carbs and lactose. Patient will return in 4 months we will discuss going for colonoscopy. Patient will not be back from [facility] till end of November. She is agreeable to plan of care and verbalizes understanding of instructions. She was given the opportunity to ask questions and all questions answered. ? Thank you for allowing me to participate in her care Orders Orders Rast Allergen 09/13/24 K21.9 Medications Refilled omeprazole 40 mg (2 x 20 mg) PO DAILY 180 tabs 2RF K21.9 TODAY'S VISIT: Patient is here today for follow-up. Patient reports that she has been doing better when started taking 40 mg of omeprazole. Patient reports that her symptoms of acid reflux are suppressed. Patient does not eat late at night and reports no acid reflux during the night time. Patient had bronchitis back in November admitted and then sent to [facility] with NSTEMI. Cardiac catheterization performed and showed: Mild to moderate diffuse disease in LAD with severe distal stenosis, small caliber vessels with severe disease. Not amenable to stenting. Recommendation was made for aspirin, Plavix and high-intensity statin. Patient was seen in the office by DIRECTOR OF NEUROLOGY, no further testing. Patient will be seeing them again in January. Currently patient denies any chest pain or shortness of breath. However she will be due to go for colonoscopy and will need to be cleared by Cardiology before going. Patient should go for upper endoscopy as well. At this point patient reports that she is moving her bowels better without any issues. Denies dyspepsia, dysphagia or odynophagia. Denies melena, hematochezia, unintentional weight loss or ribbon like stools. [facility] Medical History Pancreatic insufficiency Pancreatic insufficiency Tubular adenoma CKD (chronic kidney disease) Anemia GERD (gastroesophageal reflux disease) Renal cyst Bladder prolapse, female, acquired Hx of gastric ulcer IBS (irritable bowel syndrome) Kidney stones High cholesterol Diabetes Surgical History Hx of endoscopy Hx of colonoscopy History of partial hysterectomy Hx of breast reduction, elective Hx of cholecystectomy Family History Father Heart attack DM2 (diabetes mellitus, type 2) Mother DM2 (diabetes mellitus, type 2) COPD (chronic obstructive pulmonary disease) Other No pertinent family history Social History Household Members: Family Housing: House Do you presently have visiting nurse or other home services: No Unable to assess alcohol history related to: Unknown Alcohol intake: never Patient Tobacco Use Status: Never used Tobacco Second Hand Smoke Exposure: No service: No Review of Systems Const Denies weight gain and Denies weight loss ENT Reports no additional complaints, Denies dysphagia and Denies odynophagia Card Reports no additional complaints Resp Reports no additional complaints GI Denies abdominal pain, Denies belching, Denies melena, Reports bloating, Denies change in bowel habits, Reports constipation, Denies dysphagia, Denies excessive flatus, Denies dyspepsia, Denies heartburn, Denies diarrhea, Reports loose stools, Denies nausea, Denies odynophagia and Denies vomiting Reports no additional complaints Musc Reports no additional complaints Neuro Reports no additional complaints Psych Reports no additional complaints Endo Reports no additional complaints Physical Exam Vital Signs: Last Vital Signs Pulse 114 H 01/03/25 13:10 BP 154/74 H 01/03/25 13:10 Pulse Ox 97 01/03/25 13:10 Oxygen Delivery Method Room Air 01/03/25 13:10 BMI result Body Mass Index 37.3 Const General: healthy appearing and no acute distress Nutritional Appearance: obese Orientation/consciousness: patient oriented x3 Resp Effort & Inspection: normal respiratory effort, able to speak in complete sentences, no tracheal deviation and symmetric chest movement Auscultation: clear to auscultation bilaterally Cardio Rate: regular rate Heart sounds: S1 normal heart sound present and S2 normal heart sound present GI Inspection: Yes normal to inspection, No distended and Yes obesity Palpation (GI): Soft to palpation, not firm, nontender and No hepatosplenomegaly present Auscultation: normal bowel sounds General: Yes no CVA tenderness Back/Spine/Pelvis Back: no CVA tenderness Skin General skin exam: elasticity normal, turgor normal and dry skin Neuro General: patient oriented x3 Psych Appearance: grossly normal Mental Status: mental status grossly normal Assessment & Plan Assessment & Plan (1) GERD (gastroesophageal reflux disease): Code(s): K21.9 - Gastro-esophageal reflux disease without esophagitis Category: Medical Qualifiers: Esophagitis presence: esophagitis presence not specified Qualified Code(s): K21.9 - Gastro-esophageal reflux disease without esophagitis (2) Pancreatic insufficiency: Code(s): K86.89 - Other specified diseases of pancreas Category: Medical (3) IBS (irritable bowel syndrome): Code(s): K58.9 - Irritable bowel syndrome, unspecified Category: Medical Qualifiers: Irritable bowel syndrome type: with constipation Qualified Code(s): K58.1 - Irritable bowel syndrome with constipation (4) Postprandial abdominal bloating: Code(s): R14.0 - Abdominal distension (gaseous) (5) Diarrhea: Code(s): R19.7 - Diarrhea, unspecified Qualifiers: Diarrhea type: functional diarrhea Qualified Code(s): K59.1 - Functional diarrhea Plan Plan is for patient to return in three months to discuss going for colonoscopy. Patient will need to be re-evaluated by Cardiology to be cleared to go for procedure. We will be adding upper endoscopy as patient has been on PPI for quite some time. Currently controlled symptoms with the 40 mg. We will try again 40 mg and see if insurance will cover. Patient will continue current diet regimen. Avoid dietary triggers and late night snacking. Staying upright for minimum 3 hours after meals discussed with patient. Patient is agreeable to current plan of care and verbalizes understanding of instructions. She was given the opportunity to ask questions and all questions answered. Thank you for allowing me to participate in her care Medications: New omeprazole 40 mg PO DAILY 90 caps 3RF K21.9 - Gastro-esophageal reflux disease without esophagitis Coding Level of Care Code Est Pt Level 4 (47835) Diagnoses Gastroesophageal reflux disease, unspecified whether esophagitis present K21.9 Esophagitis presence: esophagitis presence not specified Pancreatic insufficiency K86.89 Irritable bowel syndrome with constipation K58.1 Irritable bowel syndrome type: with constipation Postprandial abdominal bloating R14.0 Functional diarrhea K59.1 Diarrhea type: functional diarrhea Time Spent (min) 40 Comment 25 minutes spent with patient and additional 15 minutes spent reviewing her records
[2025-01-03 13:10] VITALS: BP 154/74; PULSE 114; O2SAT 97; BMI 37.3
--- OUTSIDE RECORDS SUMMARY | 2025-01-03 14:36 | XMS_ITS | Clinical Summary ---
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 - Will obtain lab work. Also curious to see radiographic imaging of the hands, feets, SI and lumbar spine. Will obtain interval history from janitorial maintenance worker Karlee Le. - RTC in 4 months [...] pure alcohol) Intermittently Hot Amanda. Tea with [place] only if sick Comments Unknown Sex and [...] Insurance [place] Care Teams Ship Officer Relationship Specialty Start Date End Date Maranda Serna MD [address] [place] [phone] PCP - General Family Medicine 08/24/21
--- OUTSIDE RECORDS SUMMARY | 2025-01-03 14:36 | XMS_ITS | Clinical Summary ---
Author Organization [employer] Address [address] [place] [address] Care Team Providers Care Web Content Developer Name Role Phone Maranda Serna MD Primary Care Provider [phone] Allergies Active Allergy Reactions Criticality Noted Date [...] , with long-term current use of insulin ([facility]) TEST BLOOD SUGAR THREE TIMES [...] mL 2 025 Active Easy Touch Pen [place] 31G X 8 MM miscIndicatio ns:Type 2 diabetes mellitus with hyperglycemia , with long-term current use of insulin ([facility]) USE DIRECTED THREE TIMES DAILY 200 each 11 025 Active Insulin Pen Needle (pen needle 16 ) 31G X 8 mm miscIndicatio ns:Type 2 diabetes mellitus with hyperglycemia , with long-term current use of insulin ([facility]) Inject 1 each under the [...] and supportive care - follow up with community administrator as scheduled Assessment & Plan (07/23/2024 9:02 [...] Plan (07/23/2024 5:36 AM EDT): - seeing community administrator - continue judicious use of gabapentin 100 mg tid - she wants to switch to tablet. Only tablets available are 600 and 800 mg tablet - will have her take 1/4 of 600 mg tablet and take bid; or will check with pharmacist if she can open the capsule and take inside content Assessment & Plan (01/04/2024 3:36 PM EST): - seeing community administrator - continue judicious use of gabapentin Assessment & Plan (10/03/2023 9:48 AM EST): - seeing community administrator - waiting for diabetic orthotics Adjustment disorder [...] hyperkalemia and cough -Currently prescribed Dapagliflozin from top precipitator operator helper -Follow up in 3-6 mo, sooner if [...] hyperkalemia and cough -Currently prescribed Dapagliflozin from top precipitator operator helper -Follow up in 3-6 mo, sooner if [...] osteoarthritis; plantar fasciitis - referred to a community administrator; waiting for an appt - check the [...] want to try any GLP-1 agonist. -Patient Employee Relations Consultant prescribed Farxiga. Patient is taking this medication [...] want to try any GLP-1 agonist. -Patient Employee Relations Consultant prescribed Farxiga. Patient is no longer taking [...] (01/04/2024 3:42 PM EST): - followed by [facility] - no anatomical pancreatic abnormality on MRI in Dec 2022 - continue vegan / plant-based pancreatic enzyme Assessment & Plan (10/03/2023 9:49 AM EST): - followed by [facility] - no anatomical pancreatic abnormality on MRI in Dec 2022 - continue vegan / plant-based pancreatic enzyme Assessment & Plan (06/07/2023 3:30 PM EDT): - followed by [facility] - no anatomical pancreatic abnormality on MRI in Dec 2022 - continue vegan / plant-based pancreatic enzyme Assessment & Plan (02/24/2023 5:30 AM EDT): - followed by [facility] - no anatomical pancreatic abnormality on MRI in Dec 2022 - continue vegan / plant-based pancreatic enzyme Assessment & Plan (12/18/2022 6:12 PM EST): - followed by [facility] - continue vegan [...] Plan (07/20/2024 1:50 PM EDT): -Followed by [facility], last seen 08/06/22 -EGD and Colonoscopy on 12/24/21; showed Tubular Adenoma, she was recommended to repeat in 3 years. - pt has been using castor oil - continue trying fiber-rich diet and increasing physical activity as tolerated. - continue Senakot as prescribed Assessment & Plan (01/04/2024 3:38 PM EST): -Followed by [facility], last seen 08/06/22 -EGD and Colonoscopy on 12/24/21; showed Tubular Adenoma, she was recommended to repeat in 3 years. - pt has been using castor oil - continue trying fiber-rich diet and increasing physical activity as tolerated. - continue Senakot as prescribed Assessment & Plan (06/07/2023 3:33 PM EDT): -Followed by [facility], last seen 08/06/22 -EGD and Colonoscopy on 12/24/21; showed Tubular Adenoma, she was recommended to repeat in 3 years. - pt has been using castor oil - continue trying fiber-rich diet and increasing physical activity as tolerated. - continue Senakot as prescribed Assessment & Plan (12/18/2022 6:26 PM EST): -Followed by [facility], last seen 08/06/22 -EGD and Colonoscopy on 12/24/21; showed Tubular Adenoma, she was recommended to repeat in 3 years. - pt has been using castor oil - continue trying fiber-rich diet and increasing physical activity as tolerated. - continue Senakot as prescribed Chronic kidney disease, stage III (moderate) 01/2022 Assessment & Plan (07/23/2024 5:41 AM EDT): - Employee Relations Consultant, Dr. Marci Hylton. - Metformin is discontinued, Dr. Tsai started bryn ib Dapagliflozin (Farxiga) - Previously on Lisinopril, but was disccontinued due to cough / K - Avoid nephrotoxic drugs, including NSAID (no more Aleve) - Renal dose meds Assessment & Plan (01/04/2024 3:45 PM EST): - Employee Relations Consultant, Dr. 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 Tsai is prescribing Dapagliflozin (Farxiga) - Previously on Lisinopril, but was disccontinued due to cough / K - Avoid nephrotoxic drugs - Renal dose meds Assessment & Plan (10/03/2023 9:41 AM EST): - Employee Relations Consultant, Dr. 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 Tsai rx Farxiga for DM management - Previously on Lisinopril, but was disccontinued due to cough / K - Avoid nephrotoxic drugs - Renal dose meds - Pt was advised that atorvastatin is not nephrotoxic and it will lower her ASCVD risk. Pt continues to decline statin therapy. Assessment & Plan (06/07/2023 3:34 PM EDT): - Employee Relations Consultant, Dr. 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 [...] & Plan (02/24/2023 5:37 AM EDT): - Employee Relations ConsultantDr. Tsai - Lab: 12/24/22 BUN 28, Scr [...] & Plan (12/18/2022 6:31 PM EST): - Employee Relations Consultant, Dr. 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 [...] PM EST): -s/p EGD 12/24/21 -followed by [facility] -continue omeprazole 40mg daily -previously tried pantoprazole and lansoprazole; pt prefers omeprazole. -previously prescribed famotidine. Max dose for her renal function is 20 mg daily. Pt does not take it regularly. Assessment & Plan (10/03/2023 9:50 AM EST): -s/p EGD 12/24/21 -followed by [facility] -continue omeprazole 40mg daily -previously tried pantoprazole and lansoprazole; pt prefers omeprazole. -previously prescribed famotidine. Max dose for her renal function is 20 mg daily. Pt does not take it regularly. Assessment & Plan (06/07/2023 3:33 PM EDT): -s/p EGD 12/24/21 -followed by [facility] -continue omeprazole 40mg daily -previously tried pantoprazole and lansoprazole; pt prefers omeprazole. -previously prescribed famotidine. Max dose for her renal function is 20 mg daily. Pt does not take it regularly. Assessment & Plan (12/18/2022 6:28 PM EST): -s/p EGD 12/24/21 -followed by [facility] -continue prantoprazol 40mg daily -previously prescribed famotidine. Max dose for her renal function is 20 mg daily. Irritable bowel syndrome 10/12/2022 Assessment & Plan (07/20/2024 1:50 PM EDT): - followed by [facility] - continue current treatment plan per GI - low FODMAP diet - pt is prescribed simethicone, Sennakot, citrucel, but does not like taking it regularly Assessment & Plan (01/04/2024 3:42 PM EST): - followed by [facility] - continue current treatment plan per GI - low FODMAP diet - pt is prescribed simethicone, Sennakot, citrucel, but does not like taking it regularly Assessment & Plan (10/03/2023 9:49 AM EST): - followed by [facility] - continue current treatment plan per GI - low FODMAP diet - pt is prescribed simethicone, Sennakot, citrucel, but does not like taking it regularly Assessment & Plan (06/07/2023 3:32 PM EDT): - followed by [facility] - continue current treatment plan per GI - low FODMAP diet - pt is prescribed simethicone, Sennakot, citrucel, but does not like taking it regularly Assessment & Plan (12/18/2022 6:27 PM EST): - followed by [facility] - continue current [...] want to try any GLP-1 agonist. -Patient Employee Relations Consultant prescribed Farxiga. Patient is taking this medication [...] want to try any GLP-1 agonist. -Patient Employee Relations Consultant prescribed Farxiga. Patient is no longer taking [...] want to try any GLP-1 agonist. -Patient Employee Relations Consultant prescribed Farxiga. Patient is no longer taking [...] want to try any GLP-1 agonist. -Patient Employee Relations Consultant prescribed Farxiga. Patient is no longer taking [...] want to try any GLP-1 agonist. -Patient Employee Relations Consultant prescribed Farxiga. Patient is no longer taking [...] Encounters Date Type Department Care Team Description 12/23/2024 Orders Only GENERIC EXTERNAL DATA DEPARTMENT Provider, Generic External Data 12/14/2024 Refill [facility] [address] [place] [address] Maranda Serna MD Type 2 diabetes mellitus with hyperglycemia, with long-term current use of insulin ([facility]) 12/13/2024 Refill [facility] [address] [place] [address] Maranda Serna MD 12/08/2024 Telephone [facility] [address] [place] [address] Maranda Serna MD Transition Of Care (Tcm) (HDF- Unscheduled THIRD LVM) 12/07/2024 Telephone [facility] [address] [place] [phone] Maranda Serna MD Hospital Follow-up 12/02/2024 Patient Outreach [facility] [address] [place] [phone] Maranda Serna MD Transition Of Care (Tcm) (HDF- Unscheduled second LVM) 12/01/2024 Patient Outreach [facility] [address] [place] [address] Maranda Serna MD Transition Of Care (Tcm) (HDF- unscheduled LVM ) 11/27/2024 Orders Only [facility] External Provider, [facility] 11/25/2024 Telephone [facility] [address] [place] [phone] Ayse Arce [place] December11/16/2024 Refill [facility] [address] [place] [phone] Mahsa Acosta MD from Last 3 Months [...] 11:00 AM EDT Office Visit [facility] [address] [place] [address] Maranda Serna MD [address] [place] [address] Health Maintenance Due Date Last Done Comments [...] Procedure Name Priority Date/Time Associated Diagnosis Comments CULTURE, URINE, ROUTINE Routine 12/23/2024 1:[address] CHEST WO CONTRAST Routine 11/27/2024 8:28 [...] hyperglycemia, with long-term current use of insulin ([facility]) BI MAMMOGRAM SCREENING TOMOSYNTHESIS BILATERAL Routine 02/10/2024 2:40 PM EDT LIPID PANEL WITH REFLEX TO DIRECT LDL Routine 12/30/2023 4:50 PM EST Type 2 diabetes mellitus with hyperglycemia, with long-term current use of insulin ([facility]) Dyslipidemia HM COLONOSCOPY Routine 07/07/2022 from Last 3 Months or Most Recently Relevant to Health Maintenance Results * Culture, Urine, Routine (12/23/2024 1:00 PM EST) Urine Urine specimen obtained by clean catch procedure / Unknown 12/23/2024 1:00 PM EST 12/23/2024 4:59 PM EST Comment:[facility] Narrative [facility] - 12/26/2024 7:26 AM EST Escherichia coli Quant > 100,000 cfu/mL Escherichia coli: Ampicillin 8(S) Escherichia coli: Cefazolin (Urine) 2(S) Escherichia coli: Cefepime <=0.12(S) Escherichia coli: Ceftriaxone <=0.25(S) Escherichia coli: Ciprofloxacin <=0.06(S) Escherichia coli: Gentamicin <=1(S) Escherichia coli: Nitrofurantoin <=16(S) Escherichia coli: Trimethoprim/Sulfamethoxazole <=20(S) Specimen Source: Urine clean catch us Generic External Data Provider LAB MICROBIOLOGY - GENERAL ORDERABLES Final Result [facility] [address] [place] [phone] * CT Chest w/o Contrast (11/27/2024 8:28 PM EST) Anatomical Region Laterality Modality Body, Chest Computed Tomogra phy 11/27/2024 8:28 PM EST Narrative 11/27/2024 8:30 PM EST ? [facility] ?[address] ?[place], [place] [address] ? CT Scan Report ? Signed ? Patient: Reji,Ese ?MR#: [id number] ?? 8 ? : 1960 ?Acct:[id number] ? Age/Sex: 64 / F ?ADM Date: 11/27/24 ? Loc: HO.ED ? Attending Dr: ? Ordering Physician: Rajwinder Bhatti CNP ?? Date of Service: 11/27/24 ?? Procedure(s): CT chest wo IV con ?? Accession Number(s): [id number] ? cc: Rajwinder Bhatti CNP; Maranda Serna MD ? Report Number: ?? [id number]: Total DLP = ??543.00 mGy-cm ? CLINICAL HISTORY: cp, sob ? CT chest without contrast ? Comparison: CT - CHEST WITHOUT CONTRAST [id number] - 12/22/07 00:00 EST ? Findings: The [...] ? DD/ 27 ? TD/TT: 11/27/242027 ? Transcriber: ? Procedure Note Ezekiel, Image - 11/27/[address] [address] [address] Scan Report Signed Patient: Ese MendozaMR#: [id number] 8 : 1960Acct:[id number] Age/Sex: 64 / FADM Date: 11/27/24 Loc: HO.ED Attending Dr: Ordering Physician: Rajwinder Bhatti CNP Date of Service: 11/27/24 Procedure(s): CT chest wo IV con Accession Number(s): [id number] cc: Rajwinder Bhatti CNP; Maranda Serna MD Report Number: [id number]: Total DLP = 543.00 mGy-cm CLINICAL HISTORY: cp, sob CT chest without contrast Comparison: CT - CHEST WITHOUT CONTRAST [id number] - 12/22/07 00:00 EST Findings: The prior [...] in OV> 11/27/242028 DD/ 27 TD/TT: 11/27/242027 Transcriber: [employer] External Provider IMG CT PROCEDURES Edited Result - Final * Lactic Acid (11/27/2024 5:48 PM EST) Lactic Acid 1.2 0.5 - 2.0 mmol/L [facility] 11/27/2024 5:48 PM EST 11/27/2024 5:54 PM EST Generic External Data Provider LAB BLOOD ORDERAB LES Final Result [facility] [address] [place] [phone] * (ABNORMAL) High Sensitivity Troponin I (11/27/2024 4:48 PM EST) Only the most recent of2 resultswithin the time period is included. TROPONIN I HIGH SENSITIVITY 743.6(HH) <3.5 - 17.0 ng/L [facility] Comment:Critical value for t est(s): TROP Results called to and readback by: VICKIE Person calling: [employer] Date: 11/27/24Time: 1717The [place] high sensitivity Troponin-I results should beused in conjunction with other diagnostic information suchas ECG, clinical observations and information, and patientsymptoms to aid in the diagnosis of KS. 11/27/2024 4:48 PM EST 11/27/2024 4:52 PM EST Generic External Data Provider LAB BLOOD ORDERAB LES Final Result Performing Organization Address [facility] [[email or web address]] Co de Phone Number [facility] [address] [place] [phone] * (ABNORMAL) C-reactive Protein (11/27/2024 2:07 PM EST) Pathologist [facility] C Reactive Protein 4.57(H) < or = 0.50 mg/dL [facility] 11/27/2024 2:07 PM EST 11/27/2024 2:10 PM EST Generic External Data Provider LAB BLOOD ORDERAB LES Final Result Performing Organization Address [facility] de Phone Number [facility] [address] [place] [phone] * (ABNORMAL) Comprehensive Metabolic Panel (11/27/2024 2:07 PM EST) Pathologist [facility] Sodium 140 135 - 145 mmol/L [facility] Potassium 4.0 3.3 - 5.1 mmol/L [facility] Chloride 108 96 - 108 mmol/L [facility] Carbon Dioxide 26 22 - 29 mmol/L [facility] Anion Gap 10(L) 12 - 20 [facility] Urea Nitrogen (BUN) 32(H) 9 - 16 mg/dL [facility] Creatinine, Serum 1.60(H) 0.5 - 1.4 mg/dL [facility] Creatinine Clr Calc Pharmacy 36.8 [facility] Comment:Provided height and weight: 157.48 cm,89.1 kg.eGFR (calculated from the MDRD study equation) and eCrCl(calculated from the Cockcroft-Gault equation) are based ondifferent parameters and may not yield comparable results.If eCrCl result is absurd, please check patient'sheight/weight. Estimated Glomerular Filt Rate 32 [facility] Comment:Chronic Kidney Disea se: Estimated GFR < 60 mL/min/1.51b5Fxmucz Kidney Disease: Estimated GFR < 15 mL/min/1.73m2 Glucose 149(H) 60 - 115 mg/dL [facility] Calcium 8.6 8.4 - 10.2 mg/dL [facility] Bilirubin, Total 0.4 0.0 - 1.0 mg/dL [facility] Aspartate Amino Transferase 22 5 - 31 U/L [facility] Alanine Aminotransferase 9 0 - 31 U/L [facility] Total Protein 6.7 6.5 - 8.0 g/dL [facility] Albumin Level 3.5 3.5 - 5.0 g/dL [facility] Alkaline Phosphatase 108 39 - 117 U/L [facility] 11/27/2024 2:07 PM EST 11/27/2024 2:10 PM EST us Generic External Data Provider LAB BLOOD ORDERAB LES Final Result [facility] [address] [place], [place] [phone] * D Dimer High Sensitivity (11/27/2024 2:06 PM EST) D Dimer High Sensitivity 204 NG/ML [facility] Comment:D-DIMER HS REFERENCE RANGENote: Our [...] Provider LAB BLOOD ORDERAB LES Final Result [facility] [address] [place] [phone] * (ABNORMAL) CBC auto differential (11/27/2024 2:06 PM EST) White Blood Count 14.0(H) 4.8 - 10.8 X10*3/uL [facility] Red Blood Count 4.15(L) 4.20 - 5.50 X10*6/uL [facility] Hemoglobin 12.0 12.0 - 16.0 g/dl [facility] Hematocrit 36.9(L) 37.0 - 47.0 % [facility] Mean Corpuscular Volume 88.9 80.0 - 98.0 fL [facility] Mean Corpuscular Hemoglobin 28.9 27.0 - 33.0 pg [facility] Mean Corpuscular HGB Conc 32.5 31.0 - 35.0 g/dl [facility] Red Cell Distribution Width 15.7 11.0 - 16.0 % [facility] Platelet Count 294 160 - 400 X10*3/uL [facility] Mean Platelet Volume 11.3 9.4 - 12.3 fL [facility] Neutrophils Percent Auto 76.2(H) 45 - 73 % [facility] Imm Gran Pct Auto 0.4 0.0 - 0.4 % [facility] Lymphocytes Percent Auto 15.8(L) 20 - 40 % [facility] Monocytes Percent Auto 6.2 2 - 11 % [facility] Eosinophils Percent Auto 1.0 0 - 4 % [facility] Basophils Percent Auto 0.4 0 - 2 % [facility] NRBC Pct Auto 0.0 0.0 - 0.2 /100WBC [facility] Neutrophils Absolute Auto 10.7(H) 2.0 - 8.3 x10*3/uL [facility] Imm Gran Abs Auto 0.06(H) 0.00 - 0.03 X10*3/uL [facility] Lymphocytes Absolute Auto 2.2 1.2 - 4.9 X10*3/uL [facility] Monocytes Absolute Auto 0.9 0.1 - 1.2 X10*3/uL [facility] Eosinophils Absolute Auto 0.1 0.0 - 0.4 X10*3/uL [facility] Basophils Absolute Auto 0.1 0.0 - 0.2 X10*3/uL [facility] NRBC Abs Auto 0.000 0.0 - 0.012 X10*3/uL [facility] 11/27/2024 2:06 PM EST 11/27/2024 2:10 PM EST us Generic External Data Provider LAB BLOOD ORDERAB LES Final Result Performing Organization Address City/State/[facility] [[email or web address]] Co de Phone Number [facility] [address] [place] [phone] * Prothrombin Time-INR (11/27/2024 2:06 PM EST) Prothrombin Time 12.1 10.9 - 12.4 SEC [facility] INTERNATIONAL NORM RATIO 1.0 0.9 - 1.1 [facility] Comment:INTERNATIONAL NORMAL IZED RATIO (INR) [...] ORDERAB LES Final Result Performing Organization Address [facility] de Phone Number [facility] [address] [place] [address] [phone] * (ABNORMAL) B Type Natriuretic Peptide (BNP) (11/27/2024 2:06 PM EST) B Type Natriuretic Peptide 171(H) <100 pg/mL [facility] Comment:For those patients w ho are being treated with Natrecor(nesiritide, recombinant BNP), BNP testing should beperformed at least two hours post treatment in order toensure that only endogenous levels of BNP are detected. 11/27/2024 2:06 PM EST 11/27/2024 2:10 PM EST Generic External Data Provider LAB BLOOD ORDERAB LES Final Result Performing Organization Address [facility] Phone Number [facility] [address] [place] [phone] * XR Chest 2 Views (11/27/2024 1:35 PM EST) Anatomical Region Laterality Modality Chest Radiographic Mary ging 11/27/2024 1:35 PM EST Narrative 11/27/2024 1:37 PM EST ? [facility] ?[address] ?[place] [address] ?XRay Report ? Signed ? Patient: Ese Mendoza ?MR#: [id number] ?? 8 ? : 1960 ?Acct:[id number] ? Age/Sex: 64 / F ?ADM Date: 01/18/25 ? Loc: HO.ED ? Attending Dr: ? Ordering Physician: Shakira Godinez ?? Date of Service: 11/27/24 ?? Procedure(s): XR chest 2V ?? Accession Number(s): [id number] ? cc: Shakira Godinez; Maranda Serna MD ? CLINICAL HISTORY: cough ? 2 view chest x-ray ? Comparison: CT - CHEST WITHOUT CONTRAST [id number] - 12/22/07 00:00 EST ? Findings: ?? The lungs are clear. ?? Heart size is normal. ?? No acute fracture. ? IMPRESSION: ?? 1. No acute findings. ? This document has been electronically signed by: Serina Nolan MD on ?? 11/27/2024 13:35:59 ? Dictated By: ?Serina Nolan MD ? Signed By: ?<Electronically signed by Serina Nolan MD in OV> ? 11/27/247 ? DD/ 1335 ? TD/TT: 11/27/24 1335 ? Transcriber: ? Procedure Note Donedwigeter, Image - 11/27/2024 [place] [address] XRay Report Signed Patient: Kristen Mendoza#: [id number] 8 : 1960Acct:[id number] Age/Sex: 64 / FADM Date: 11/27/24 Loc: HO.ED Attending Dr: Ordering Physician: Shakira Godinez Date of Service: 11/27/24 Procedure(s): XR chest 2V Accession Number(s): [id number] cc: Shakira Godinez; Maranda Serna MD CLINICAL HISTORY: cough 2 view chest x-ray Comparison: CT - CHEST WITHOUT CONTRAST [id number] - 12/22/07 00:00 EST Findings: The lungs are clear. Heart size is normal. No acute fracture. IMPRESSION: 1. No acute findings. This document has been electronically signed by: Serina Nolan MD on 11/27/2024 13:35:59 Dictated By: Serina Nolan MD Signed By: <Electronically signed by Serina Nolan MD in OV> 11/27/24 1337 DD/ 34 TD/TT: 11/27/241334 Transcriber: [employer] External Provider IMG XR PROCEDURES Edited Result - Final * SARS-CoV-2 RNA, Influenza A/B, and RSV RNA, Ql NAAT (11/27/2024 12:43 PM EST) Influenza A PCR NEGATIVE Negative [facility] Influenza B PCR NEGATIVE Negative [facility] Resp Syncy Virus RNA Qual PCR NEGATIVE Negative [facility] SARS COV2 PCR NEGATIVE Negative [facility] Comment:All test results mus t [...] use by authorized laboratories.Testing performed on the [employer] GeneXpert utilizingreal-time RT-PCR.All SARS CoV2 and positive influenza A/B results arereported to [facility]. 11/27/2024 12:4 3 PM EST 11/27/2024 12:51 PM EST us Generic External Data Provider LAB MICROBIOLOGY - GENERAL ORDERABLES Final Result [facility] [address] [place] [phone] * (ABNORMAL) POCT glycosylated hemoglobin (Hgb A1c) (07/19/2024 2:39 PM EDT) Hemoglobin A1C 9.3(A) 4.0 - 6.0 % QC Media Lot # [id number] Lot# Expiration Date [id number] Blood Capillary blood specimen / Unknown 07/19/2024 2:39 PM EDT Maranda Serna MD POINT OF CARE TEST ENTER/EDIT OR DERABLES Final Result * BI Mammogram Screening Tomosynthesis Bilateral (02/10/2024 2:40 PM EDT) Anatomical Region Laterality Modality Breast Bilateral Mammography 02/10/2024 2:40 PM EDT Narrative 02/22/2024 3:43 PM EDT ? [facility] ? [address] ?[place] [address] ? Mammography Report ? Signed ? Patient: Reji,Ese ?MR#: [id number] ?? 8 ? : 1960 ?Acct:[id number] ? Age/Sex: 63 / F ?ADM Date: 02/10/24 ? Loc: HO.MAMMO ? Attending Dr: Maranda Serna MD ? Ordering Physician: Maranda Serna MD ?Results: 1Negative ? Date of Service: 02/10/24 ?Follow Up: 1 Year From Orig ?? inal Mammogram ? Procedure(s): MM tomosynthesis screening BI ?? Accession Number(s): [id number] ? cc: Maranda Serna MD ? EXAMINATION: [...] These include several, bilateral, ?? benign macrocalcifications premium representative of fat necrosis. ? MM/MM tomosynthesis [...] 1539 ? DD/ 1440 ? TD/TT: ? Transcriber: ? Procedure Note Ezekiel, Image - 02/22/2024 Jeffrey [facility] [address] [place], [place] [address] Mammography Report Signed Patient: Kristen Mendoza#: [id number] 8 : 1960Acct:[id number] Age/Sex: 63 / FADM Date: 02/10/24 Loc: [place] Attending Dr: Maranda Serna MD Ordering Physician: Maranda Serna MDResults: 1Negative Date of Service: 02/10/24Follow Up: 1 Year From Orig inal Mammogram Procedure(s): MM tomosynthesis screening BI Accession Number(s): [id number] cc: Maranda Serna MD EXAMINATION: MM SCREENING [...] present. These include several, bilateral, benign macrocalcifications premium representative of fat necrosis. MM/MM tomosynthesis screening [...] in OV> 02/22/24 1539 DD/ 1440 TD/TT: Transcriber: Maranda Serna MD IM BI PROCEDURES Edited Result - Final * (ABNORMAL) Lipid Panel with Reflex to Direct LDL (12/30/2023 4:50 PM EST) Triglycerides 177(H) <150 mg/dL [facility] Comment:Desirable Triglyceri de: less than 150 mg/dLBorderline High Triglyceride 150-199 mg/dLHigh Triglyceride: 200-499 mg/dLVery High Triglyceride: greater than or equal to 5OO mg/dL Cholesterol 235(H) <200 mg/dL [facility] Comment:Desirable Cholestero l: less than 200 mg/dLBorderline High Cholesterol: 200-239 mg/dLHigh Cholesterol: greater than 239 mg/dL LDL Cholesterol Calculated 151(H) <100 mg/dL [facility] Comment:Desirable LDL: less than 100 mg/dLNear Optimal/Above Optimal LDL: 110- 129 mg/dLBorderline High LDL: 130-159 mg/dLHigh LDL: 160-189 mg/dLVery High LDL: greater than or equal to 190 mg/dL HDL Cholesterol 49 >40 mg/dL [facility] Comment:Desirable HDL: great er than 40 mg/dL Note: This HDL assay may give artificially low results in patients with liver disease. Blood 12/30/2023 4:50 PM EST 12/30/2023 5:26 PM EST Maranda Serna MD LAB BLOOD ORDERABLES Final Resul t [facility] [address] [place], [place] [phone] * (ABNORMAL) Colonoscopy (07/07/2022) Colonoscopy Abnormal(A ) Normal [employer] External Provider HEALTH MAINTENANCE Final Result from Last 3 Months or Most Recently Relevant to Health Maintenance Insurance [facility] STANDARD Care Teams Web Content Developer Relationship Specialty Start Date End Date Maranda Serna MD [address] [place] [address] PCP - General Family Medicine 08/01/21
--- OUTSIDE RECORDS SUMMARY | 2025-01-03 14:36 | XMS_ITS | Encounter Summary ---
Author Organization [employer] Address [address] [facility] 7t [place] [address] Care Team Providers Care Sales And Service Specialist Name Role Phone Maranda Serna MD Primary Care Provider [phone] Reason for Visit * Reason Onset Date Comments Hospital Follow-up 12/07/2024 Encounter Details Date Type Department Care Team ([facility] Contact Info) Description 12/07/2024 Telephone [facility] [address] [place], [place] [phone] Maranda Senra MD [address] [place], [place] [phone] Hospital Follow-up Social History Tobacco Use Types [...] follow up. Pt requested a call back. [phone] (Pt Contact) documented in this encounter Plan of Treatment Upcoming Encounters Date Type Department Care Team (Late st Contact Info) Description 01/17/2025 11:00 AM EDT Office Visit [facility] [address] [place] [address] Maranda Serna MD [address] [place] [address] documented as of this encounter Visit Diagnoses Not on filedocumented in this encounter Additional Health Concerns Assessment Noted Time PHQ-9 Depression Total Score: 6 10/23/20 22 10:04 AM EST documented as of this encounter Care Teams Sales And Service Specialist Relationship Specialty Start Date End Date Maranda Serna MD [address] [place] [address] PCP - General Family Medicine 08/01/21 documented as of this encounter
--- OUTSIDE RECORDS SUMMARY | 2025-01-03 14:36 | XMS_ITS | Encounter Summary ---
Author Organization [employer] Address [address] [facility] 7t [place] [address] Care Team Providers Care Manager Intern Name Role Phone Maranda Serna MD Primary Care Provider [phone] Reason for Visit * Reason Comments Med Refill Encounter Details Date Type Department Care Team (Late st Contact Info) Description 12/14/2024 Refill [facility] [address] [place], [place] [phone] Maranda Serna MD [address] [place], [place] [phone] Type 2 diabetes mellitus with hyperglycemia, with long-term current use of insulin ([facility]) Social History Tobacco Use Types [...] 11:00 AM EDT Office Visit [facility] [address] [place] [address] Maranda Serna MD [address] [place] [address] documented as of this encounter Visit Diagnoses Diagnosis Type 2 diabetes mellitus with hyperglycemia, with long-term current use of insulin ([facility]) documented in this encounter Additional Health Concerns Assessment Noted Time PHQ-9 Depression Total Score: 6 10/23/20 22 10:04 AM EST documented as of this encounter Care Teams Manager Intern Relationship Specialty Start Date End Date Maranda Serna MD [address] [place] [address] PCP - General Family Medicine 08/01/21 documented as of this encounter
--- OUTSIDE RECORDS SUMMARY | 2025-01-03 14:36 | XMS_ITS | Encounter Summary ---
Author Organization [employer] Address [address] [facility] 7t [place] [address] Care Team Providers Care Clinical Science Consultant Name Role Phone Maranda Serna MD Primary Care Provider [phone] Reason for Visit * Reason Onset Date Comments Med Refill 12/13/2024 Encounter Details Date Type Department Care Team ([facility] st Contact Info) Description 12/13/2024 Refill [facility] [address] [place], [place] [phone] Maranda Serna MD [address] [place], [place] [phone] Social History Tobacco Use Types Packs/Day Years [...] sent on 11/16/24 with 2 refills to [facility]. Next appointment 01/17/25. * Telephone Encounter - Grayson Broussard - 12/13/2024 1:03 PM EST TC from pt requesting medication refill. Medications needing refill : Tresiba FlexTouch 100 UNIT/ML injection insulin lispro (HumaLOG) 100 UNIT/ML injection To be sent to: [facility] - [place], [place] - [address] [facility] documented in this encounter Plan of Treatment Upcoming Encounters Date Type Department Care Team (Late st Contact Info) Description 01/17/2025 11:00 AM EDT Office Visit [facility] [address] [place] [address] Maranda Serna MD [address] [place] [address] documented as of this encounter Visit Diagnoses Not on filedocumented in this encounter Additional Health Concerns Assessment Noted Time PHQ-9 Depression Total Score: 6 10/23/20 10:04 AM EST documented as of this encounter Care Teams Clinical Science Consultant Relationship Specialty Start Date End Date Maranda Serna MD [address] [place] [address] PCP - General Family Medicine 08/01/21 documented as of this encounter
--- OUTSIDE RECORDS SUMMARY | 2025-01-03 14:36 | XMS_ITS | Clinical Summary ---
Author Organization [facility] Address [address] [place] [address] Care Team Providers Care Claim Review Medical Director Name Role Phone ChapispriscillaViet Primary Care Provider [phone] Allergies Active Allergy Reactions Criticality Noted Date [...] age to complete this topic Care Teams Claim Review Medical Director Relationship Specialty Start Date End Date Viet Sánchez [address] [place] [address] PCP - General Medical Services 06/19/18
--- OUTSIDE RECORDS SUMMARY | 2025-01-03 14:36 | XMS_ITS | Encounter Summary ---
Author Organization [facility] Address [address] [place] [address] Care Team Providers Care Livestock Farm Workers Name Role Phone Viet Sánchez Unavailable [phone] Viet Sánchez Primary Care Provider Encounter Details Date Type Department Care Team (Late st Contact Info) Description 07/07/2018 Scanned Document [facility] Urologic Surgery [place] [address] [facility] [address] [place] [address] Provider, Sheryl, [address] [place] [address] Social History Tobacco Use Types Packs/Day Years [...] on filedocumented in this encounter Care Teams Livestock Farm Workers Relationship Specialty Start Date End Date Viet Sánchez PA [address] [place] [address] PCP - General 06/18/18 Viet Sánchez PA [address] [place] [address] 06/18/18 documented as of this encounter
--- OUTSIDE RECORDS SUMMARY | 2025-01-03 14:36 | XMS_ITS | Encounter Summary ---
Author Organization [facility] Address [address] [place] [address] Care Team Providers Care General Agent Name Role Phone Viet Sánchez Unavailable [phone] Viet Sánchez Primary Care Provider [phone] Encounter Details Date Type Department Care Team (Late st Contact Info) Description 08/06/2018 Scanned Document [facility] Urologic Surgery [place] [address] [facility] [address] [place] [address] Provider, MD Sheryl [address] [place] [address] Social History Tobacco Use Types Packs/Day Years [...] on filedocumented in this encounter Care Teams General Agent Relationship Specialty Start Date End Date Viet Sánchez PA [address] [place] [address] PCP - General 06/18/18 Viet Sánchez PA [address] [place] [address] 06/18/18 documented as of this encounter
--- OUTSIDE RECORDS SUMMARY | 2025-01-03 14:36 | XMS_ITS | Encounter Summary ---
Author Organization [facility] Address [address] [place] [address] Care Team Providers Care Commissary Worker Name Role Phone Viet Sánchez Unavailable [phone] Viet Sánchez Primary Care Provider Encounter Details Date Type Department Care Team (Late st Contact Info) Description 11/09/2019 Prep for Surgery OPHTHALMOLOGY [address] [place] [address] Holland Hunt MD 85 [facility] [address] [place] [address] Social History Tobacco Use Types Packs/Day Years [...] on filedocumented in this encounter Care Teams Commissary Worker Relationship Specialty Start Date End Date Viet Sánchez PA [address] [place] [address] PCP - General 06/18/18 Viet Sánchez PA [address] [place] [address] 06/18/18 documented as of this encounter
--- OUTSIDE RECORDS SUMMARY | 2025-01-03 14:36 | XMS_ITS | Clinical Summary ---
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 Diabetic peripheral [...] this topic Medical Devices Implanted Type Area Primary Special Education Teacher Device Identifier Shelf Expiration Date Model / Serial / Lot [id number] Lens Iol 0 D +21.5 Brianda Mod L Bcnvx 13mm 6mm Posterior - [id number] Implanted:Qty: 1 on 01/27/2020 by Obinna Lorenzana MD at [facility] [place] [employer] [id number] / [id number] / Procedures Procedure Name Priority Date/Time Associated [...] 12:01 PM 01/27/2020 12:06 PM Care Teams Billet Driller Relationship Specialty Start Date End Date Viet Sánchez PA [address] [place] [address] PCP - General 06/18/18 Viet Sánchez PA [address] [place] [address] 06/18/18
--- OUTSIDE RECORDS SUMMARY | 2025-01-03 14:36 | XMS_ITS | Encounter Summary ---
Author Organization [employer] Address [address] [facility] 7t [place] [address] Care Team Providers Care Project Planner Name Role Phone Maranda Serna MD Primary Care Provider [phone] Reason for Visit * Reason Comments Transition Of Care (Tcm) HDF- Unschedule d THIRD LVM Encounter Details Date Type Department Care Team ([facility] st Contact Info) Description 12/08/2024 Telephone [facility] [address] [place], [place] [phone] Maranda Serna MD [address] [place], [place] [phone] Transition Of Care (Tcm) (HDF- Unscheduled THIRD [...] 0800 Hospital Discharges and Admission for [facility] Type of Visit Hospital Admission Date of Admission/Visit 11/27/24 Date of Discharge 11/30/24 [facility] Diagnosis NSTEMI (non-ST elevated myocardial infarction) [...] Wednesdays, and Walk-In Urgent Care Located in [facility] of [facility]. Patient provided with after-hoursline for [facility], , which offer night time triage service and option to transfer to on callprovider if needed. CC will await return call from the patient. documented in this encounter Plan of Treatment Upcoming Encounters Date Type Department Care Team (Late st Contact Info) Description 01/17/2025 11:00 AM EDT Office Visit [facility] [address] [place] [address] Maranda Serna MD [address] [place] [address] documented as of this encounter Visit Diagnoses Not on filedocumented in this encounter Additional Health Concerns Assessment Noted Time PHQ-9 Depression Total Score: 6 10/23/20 22 10:04 AM EST documented as of this encounter Care Teams Project Planner Relationship Specialty Start Date End Date Maranda Serna MD [address] [place] [address] PCP - General Family Medicine 08/01/21 documented as of this encounter
--- OUTSIDE RECORDS SUMMARY | 2025-01-03 14:36 | XMS_ITS | Encounter Summary ---
Author Organization [employer] Address [address] [facility] 7t [place] [address] Care Team Providers Care Autoclave Operator Name Role Phone Maranda Serna MD Primary Care Provider [phone] Reason for Visit * Reason Onset Date Comments Durable Medical Equipment 05/26/2024 Encounter Details Date Type Department Care Team ([facility] st Contact Info) Description 05/26/2024 Telephone [facility] [address] [place], [place] [phone] Maranda Seran MD [address] [place], [place] [phone] Durable Medical Equipment Social History Tobacco Use [...] walker. Pt stated she was advised by fleet salesperson jigneshow up with orthopedic and they prescribed a walker for the pt. Pt wants script send over to [facility] [address] If any questions you can contact pt at [phone]. documented in this encounter Plan of Treatment Upcoming Encounters Date Type Department Care Team ([facility] st Contact Info) Description 01/17/2025 11:00 AM EDT Office Visit [facility] [address] [place] [address] Maranda Serna MD [address] [place] [address] documented as of this encounter Visit Diagnoses Not on filedocumented in this encounter Additional Health Concerns Assessment Noted Time PHQ-9 Depression Total Score: 6 10/23/20 22 10:04 AM EST documented as of this encounter Care Teams Autoclave Operator Relationship Specialty Start Date End Date Maranda Serna MD [address] [place] [address] PCP - General Family Medicine 08/01/21 documented as of this encounter
--- OUTSIDE RECORDS SUMMARY | 2025-01-03 14:36 | XMS_ITS | Encounter Summary ---
Author Organization [facility] Address [address] [place] [address] Care Team Providers Care Grinder Machine Knife Setter Name Role Phone Viet Sánchez Unavailable [phone] Viet Sánchez Primary Care Provider Encounter Details Date Type Department Care Team (Late st Contact Info) Description 02/18/2020 Scanned Document [facility] [address] [phone] Provider, Sheryl, [address] [place] [address] Social History Tobacco Use Types Packs/Day Years [...] on filedocumented in this encounter Care Teams Grinder Machine Knife Setter Relationship Specialty Start Date End Date Viet Sánchez PA [address] [place] [address] PCP - General 06/18/18 Viet Sánchez PA [address] [place] [address] 06/18/18 documented as of this encounter
--- OUTSIDE RECORDS SUMMARY | 2025-01-03 14:36 | XMS_ITS | Clinical Summary ---
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 - Will obtain lab work. Also curious to see radiographic imaging of the hands, feets, SI and lumbar spine. Will obtain interval history from loop sewer Karlee Le. - RTC in 4 months [...] polyneuropathy, with long-term current use of insulin ([facility]) POCT HEMOGLOBIN, A1C Routine 02/09/2019 8:10 AM EDT Type 2 diabetes mellitus with diabetic polyneuropathy, with long-term current use of insulin ([facility]) HIV COMBO ANTIGEN/ANTIBODY Routine 10/06/2018 3:59 PM EST Polyarthralgia from Last 3 Months or Most Recently Relevant to Health Maintenance Results * Microalbumin/creatinine ratio (02/09/2019 10:15 AM EDT) Microalbumin/Creat Ratio 20 2 - 20 mg/g Creat 02/09/2019 11:55 AM EDT [facility] Creatinine, random urine 101 mg/dL 02/09/2019 11:55 AM EDT [facility] Comment: The laboratory does not have established reference ranges for this test. Interpretation of results is at the discretion of the ordering physician. Urine specimen (specimen) Urine specimen obtained by clean catch procedure / Unknown Non-blood Collection / Unknown 02/09/2019 10:15 AM EDT 02/09/2019 10:15 AM EDT us Keke Katz APRN LAB URINE ORDERABLES Final Res ult [facility] [address] [place] [address], [place] [phone] * POCT hemoglobin, A1c (02/09/2019 8:10 AM EDT) POCT Hemoglobin A1C 9.2 4.4 - 6.4 % Blood specimen (specimen) 02/09/2019 8:10 AM EDT us Jadarijuan c Salamancann GRAPE CRUSHER POCT ORDERABLES NO CHARGE Machelle l Result * HIV combo antigen/antibody (10/06/2018 3:59 PM EST) HIV Combo AB/AG Negative Negative 10/06/2018 6:02 PM EST [facility] Blood specimen (specimen) Venous blood specimen / Unknown Venipuncture / Unknown 10/06/2018 3:59 PM EST 10/06/2018 3:59 PM EST Narrative [facility] - 10/06/2018 6:02 PM EST This test is a 4th generation HIV Antigen-Antibody Combination assay, using a chemiluminescent microparticle immunoassay, for the simultaneous qualitative detection of human immuno- deficiency virus (HIV) p24 antigen and antibodies to HIV type 1 (HIV-1) and/or HIV type 2 (HIV-2) in human serum or plasma. The [employer] HIV Ag/Ab Combo assay is intended to be used as an aid in the diagnosis of HIV-1 and/or HIV-2 infection, including acute or primary HIV-1 infection. Initially-positive tests are repeated in duplicate. Repeat-positive tests will be confirmed for HIV by a HIV-1/HIV-2 rapid supplemental/ differentiation antibody assay. This testing algorithm is in line with the current CDC recommendations. us Isaias Braov MD LAB BLOOD ORDERABLES NO ST AT Final Result [facility] [address] [place] [address], [place] [phone] from Last 3 Months or Most Recently Relevant to Health Maintenance Insurance MEDICAID [place]ACKENZIE Hughes Care Teams Television Production Clerk Relationship Specialty Start Date End Date Viet Sánchez PA [address] [place] [address] PCP - General Family Medicine 07/22/18
--- OUTSIDE RECORDS SUMMARY | 2025-01-03 14:36 | XMS_ITS | Patient Health Record ---
Author Organization [employer] Address [address] [facility] [id number] [address] Care Team Providers Care Evp Managing Director Name Role Phone Larisa Saldana Primary Care Provider [phone] ALLERGIES Allergen (clinical drug ingredient) Drug/Non Drug [...] diabetes mellitus without complications (E11.9) Active confirmed 788855564 Problem Type 2 diabetes mellitus with diabetic polyneuropathy (E11.42) Active confirmed 54696135 Problem Other chronic pain (G89.29) Active confirmed 51995281 Problem Age-related nuclear cataract, bilateral (H25.13) Active confirmed Nuclear senile cataract (523221343) Problem Diabetes (E11.9) Active confirmed Diabe carlos mellitus without complication (110199990) Problem Dyslipidemia (E78.5) Active confirmed 475725146 Problem HTN (hypertension) (I10) Active confirmed Hypertension (25046960) Problem Arthritis (M19.90) Active confirmed 372 3001 Problem exterminator termite current use of insulin (Z79.4) Active confirmed 227976701 Problem Controlled diabetes mellitus with diabetic neuropathy (E11.40) Active confirmed Diabetic peripheral neuropathy associated with type 2 diabetes mellitus (0547312990354) Problem Type 2 diabetes mellitus with mild nonproliferative diabetic retinopathy without macular edema, bilateral (E11.3293) Active confirmed Mild nonproliferative retinopathy due to type 2 diabetes mellitus (744205522016240) Problem Left retinal detachment (H33.22) Active confirmed Serous r etinal detachment (62408084) Problem Menopausal and postmenopausal disorder (N95.9) Active confirmed 363739077 PLAN OF TREATMENT Pending Test Test Name [...] End Date MACKENZIE Hughes [address] [place] [address] [id number] Ese Mendoza Self - patient is the insured MEDICAID [place] [address] [place] [address] [id number] Ese Mendoza Self - patient is the [...]
--- OUTSIDE RECORDS SUMMARY | 2025-01-03 14:36 | XMS_ITS | Clinical Summary ---
Author Organization 175 [facility] Address [address] [place] [address] Phone Care Team Providers Care Catalyst Impregnator Name Role Phone Machelle Swann MD Primary Care Provider [phone] Allergies Active Allergy Reactions Criticality Noted Date [...] 42 mcg (0.06 %) nasal spray 1 Yawkey by Nasal route. 09/24/20 Active omega-3 acid [...] osteoarthritis; plantar fasciitis - referred to a derrick worker well service; waiting for an appt - check the [...] hyperkalemia and cough -Currently prescribed Dapagliflozin from binder operator -Follow up in 3-6 mo, sooner [...] Last Assessment & Plan: - followed by [facility] - no anatomical pancreatic abnormality on MRI in Dec 2022 - continue vegan / plant-based pancreatic enzyme Right knee pain 12/16/2022 Allergic rhinitis 10/12/2022 Anemia 10/12/2022 Overview (08/25/2024): Last Assessment & Plan: - likely due to chronic diseaes - Hx iron infusion - 12/24/22 Hgb 11.7, Hematocrit 35.7 Chronic idiopathic constipation 10/12/2022 Overview (08/25/2024): Last Assessment & Plan: -Followed by [facility], last seen 08/06/22 -EGD and Colonoscopy on 12/24/21; showed Tubular Adenoma, she was recommended to repeat in 3 years. - pt has been using castor oil - continue trying fiber-rich diet and increasing physical activity as tolerated. - continue Senakot as prescribed Chronic kidney disease, stage III (moderate) 01/2022 Overview (08/25/2024): Last Assessment & Plan: - Television Journalist, Dr. 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 Tsai is prescribing Dapagliflozin (Farxiga) - Previously on Lisinopril, but was disccontinued due to cough / K - Avoid nephrotoxic drugs - Renal dose meds Gastroesophageal reflux disease 10/12/2022 Overview (08/25/2024): Last Assessment & Plan: -s/p EGD 12/24/21 -followed by [facility] -continue omeprazole 40mg daily -previously tried pantoprazole and lansoprazole; pt prefers omeprazole. -previously prescribed famotidine. Max dose for her renal function is 20 mg daily. Pt does not take it regularly. Irritable bowel syndrome 10/12/2022 Overview (08/25/2024): Last Assessment & Plan: - followed by [facility] - continue current treatment plan per [...] * Annual BMP Blood Test (12/30/2023) Pathologist [facility] Annual BMP Blood Test Abstracted Result [facility] Provider HEALTH MAINTENANCE Final Result * Hemoglobin A1c (12/30/2023) [facility] Hemoglobin A1C 0.0 % Comment:no interpretation Blood Venous blood specimen / Unknown Result [facility] Provider LAB BLOOD ORDERABLES Machelle l Result * Lipid panel (12/30/2023) [facility] Triglycerides 0 mg/dL Comment:no interpretation Cholesterol 0 mg/dL Comment:no interpretation HDL 0 mg/dL Comment:no interpretation LDL Cholesterol 0 mg/dL Comment:no interpretation Blood Venous blood specimen / Unknown Result [facility] Provider LAB BLOOD ORDERABLES Machelle l Result * Urine Albumin Creatinine Ratio (07/24/2022) Pathologist [facility] Urine Albumin Creatinine Ratio Abstracted Result [facility] Provider HEALTH MAINTENANCE Final Result from Last 3 Months or Most Recently Relevant to Health Maintenance Insurance MEDICAID - [place] Care Teams Catalyst Impregnator Relationship Specialty Start Date End Date Machelle Swann MD [address] [place] [address] [place] [address] PCP - General 10/15/12
--- OUTSIDE RECORDS SUMMARY | 2025-01-03 14:36 | XMS_ITS | Data Portability ---
Author Organization [place] - [facility], Allergy Address [address] [address] Assessment No assessment recorded. Plan of Treatment Reminders Order Date Submit Date Provider Last Modified By Organization Details Last Modified Time Details Appointments None recorded. Lab None recorded. Referral None recorded. Procedures None recorded. Surgeries None recorded. Imaging CT, neck, soft tissue, w/ contrast - evaluate lingual tonsil hyperophy [address] [facility], [address] [place] [address], [id number], 4 12:06:24 [place], modified barium swallow study 2023 024 [facility], [address] [place] [address], [address], 4 15:47:26 Medication Orders None recorded. Patient TargetsNo targets recorded. Patient InstructionsNo instructions recorded. Reason for Referral None Reported. Results Created Date Observation Date Name Description Value Unit Range Abnormal Flag Note LastModifiedBy Organization Detail LastModifiedTime 07/29/2007/29/2024 [place], modif ied izaiah mccabe ow study No observ ation record ed. [facility]er [facility] 100 [facility] 100, [place], [address], 08/02/2024 14:43:11 09/28/20 24 09/25/2024 MRI, head + neck + orbit s, w/wo contr ast [facility] Access ion Number : [id number] Pat[address] t Name: Ese Mendozaa jn Record Number : [id number] Date of : 1959 Date of Exam: 2023 Referr ing Physic oliver: Hannaste iner, [facility] [place] [address] [place] [address] Exam: MR Orbits , Face, Neck (C-/C+ ) CPT 23533 Room Descri ption: [place] GE Pion 3T MRI of the soft [...] Electr onical ly Signed By: Vikram mike [facility] [address], [place], [address], 10/01/2024 16:52:47 Result Notes None recorded. 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 Procedures Surgical History Date Name Laterality Status Provider Name and Address Organization Details Recorded Time 07/01/2024 FFL_RE completed GENARO PELAEZ MD [address], [address], [facility] [place] [facility] 07/01/2024 12:01:28 Imaging Results Imaging Date Name Status LastModified by Organiz ation Details LastModified Time 07/29/2024 [place], modified barium swallow study completed [facility] [address] [place] [address] [address], [place], [address], 08/02/2024 14:43:11 09/25/2024 MRI, head + neck + orbits, w/wo contrast completed [facility] ([facility]) [address], [place], [address], 10/01/2024 16:52:47 Procedure Notes None recorded. Medical Equipment None Reported. Allergies Allergen ID Allergen Name Allergen Category Reaction Reaction Severity Criticality Documentation Date Start Date Code Code System Note Provider Name and Address Organization Details Recorded Time 542037 rubber, unspecifi ed environme nt,medica tion Not available Not available Not available 07/01/2024 71288 5 UNK Ashu quesada [place] - [facility] 4 11:45:16 638535 pork allergeni c extract food,medi cation Not available Not available Not available 07/01/2024 36473 8 RxNorm Ashu quesada [place] - [facility] 4 11:45:41 Medications Name Sig Start [...] Available Not Available No t Available FreeStyle Mcdonald Lite kit USE DIRECTED TO TEST BLOOD [...] Available No t Available FreeStyle Doug 2 [place] USE DIRECTED active Not Available Not Available No t Available Vitals Date Recorded Body height Body mass index (BMI) Body weight Provider Name and Address Organization Details Last Updated DateTime 07/01/2024 157.48 cm 38.4 kg/m2 11527.4 g Ashu Ramírez [facility] 07/01/2024 11:54:39 Social History None recorded. Functional Status None recorded. Mental Status None recorded. Family History Nothing Reported. Medical History No medical history recorded. Gynecological HistoryNo gynecological history recorded. Obstetrics History GPAL:G 0 P 0 0 0 0 Past Encounters Encounter ID Performer Location Encounter Start Date Encounter Closed Date Diagnosis/Indication Diagnosis SNOMED-CT Code Diagnosis ICD10 Code Diagnosis Note [id number] GENARO PELAEZ MD [facility] [address] [address] 07/01/2024 11:04:43 07/01/2024 12:01:09 Oropharyngeal dysphagia 46044457 R13.12 I recommend an MBS to better evaluate. Benign joy plasm of oropharynx 51745374 D10.5 she has symmetric lingual tonsil hypertroph y on laryngosoc py. I will evaluate with a contrasted CT to make sure there are no tumors. Dysphagia 06991923 R13.1 0 see above Health Concerns Section Related Observation LastModified by Organization Detai ls LastModified Time None Recorded Concern Status LastModified by Organization Details LastModified Time None Recorded Advance Directives Directive None Recorded Payers Encounter Date Sequence Insurance Name Policy Number Policy Singer Covered Member ID Singer Member ID Guarantor Name 07/01/2024 1 [place] [facility] Ese Mendoza [id number] Ese Mendoza Notes Date Note Type Note [...] Takes omeprazole for GERD. GENARO PELAEZ MD [address] [place] [address], [phone], [facility] - [facility] 07/01/2024 12:04:21 OBGyn Episode No OBEpisode recorded.
--- OUTSIDE RECORDS SUMMARY | 2025-01-03 14:36 | XMS_ITS | Encounter Summary ---
Author Organization [employer] Address [address] [facility] 7t [place] [address] Care Team Providers Care Private Pilot Name Role Phone Maranda Serna MD Primary Care Provider [phone] Encounter Details Date Type Department Care Team ([facility] st Contact Info) Description 04/22/[address] [facility] [address] [place] [address] Maranda Serna MD [address] [place] [address] Left foot pain (Primary Dx); Type 2 diabetes mellitus with hyperglycemia, with long-term current use of insulin ([facility]) Social History Tobacco Use Types [...] Visit [facility] [address] [place] [address] Maranda Serna MD [address] [place] [address] documented as of this encounter Visit Diagnoses Diagnosis Left foot pain- Primary Pain in soft tissues of limb Type 2 diabetes mellitus with hyperglycemia, with long-term current use of insulin ([facility]) documented in this encounter Additional Health Concerns Assessment Noted Time PHQ-9 Depression Total Score: 6 10/23/20 22 10:04 AM EST documented as of this encounter Care Teams Private Pilot Relationship Specialty Start Date End Date Maranda Serna MD [address] [place] [address] PCP - General Family Medicine 08/01/21 documented as of this encounter
--- OUTSIDE RECORDS SUMMARY | 2025-01-03 14:36 | XMS_ITS | Encounter Summary ---
Author Organization [facility] Address [address] [facility] [address] [facility] 200 [place] [address] Phone Care Team Providers Care Emts Name Role Phone Maranda Serna MD Primary Care Provider [phone] Encounter Details Date Type Department Care Team (Late st Contact Info) Description 05/17/2024 Office Communication [facility] [address] [place] [address] Marci Gleason ARNP [address] [facility] 204 [place] [address] Social History Tobacco Use Types Packs/Day Years Used Date Smoking Tobacco: Never Smokeless Tobacco: Never Alcohol Use Standard Drinks/Week Comments Yes 0 (1 standard drink = 0.6 oz pure alcohol) Intermittently Hot Amanda. Tea with [place] only if sick Comments Unknown Sex and [...] on filedocumented in this encounter Care Teams Emts Relationship Specialty Start Date End Date Maranda Serna MD [address] [place] [phone] PCP - General Family Medicine 08/24/21 documented as of this encounter
--- OUTSIDE RECORDS SUMMARY | 2025-01-03 14:36 | XMS_ITS | Encounter Summary ---
Author Organization [facility] Address [address] [place] [address] Care Team Providers Care Police Reserves Commander Name Role Phone Viet Sánchez Unavailable [phone] Viet Sánchez Primary Care Provider Encounter Details Date Type Department Care Team (Late st Contact Info) Description 02/02/2020 Prep for Surgery OPHTHALMOLOGY [address] [place] [address] Holland Hunt MD 85 [facility] [address] [facility] [place] [phone] Social History Tobacco Use Types Packs/Day Years [...] on filedocumented in this encounter Care Teams Police Reserves Commander Relationship Specialty Start Date End Date Viet Sánchez PA [address] [place] [address] PCP - General 06/18/18 Viet Sánchez PA [address] [place] [address] 06/18/18 documented as of this encounter
--- OUTSIDE RECORDS SUMMARY | 2025-01-03 14:36 | XMS_ITS | Encounter Summary ---
Author Organization [employer] Address [address] [facility] 7t [place] [address] Care Team Providers Care Marketing Systems Manager Name Role Phone Maranda Serna MD Primary Care Provider [phone] Reason for Visit * Reason Comments Med Refill Encounter Details Date Type Department Care Team (Late st Contact Info) Description 11/19/2023 Refill [facility] 230 [place], [place] [phone] Yesica Naylor MD 230 [place] [address] Social History Tobacco Use Types Packs/Day Years [...] Description 01/17/2025 11:00 AM EDT Office Visit [facility] [address] [place] [address] Maranda Serna MD 230 [place] [address] documented as of this encounter Visit Diagnoses Not on filedocumented in this encounter Additional Health Concerns Assessment Noted Time PHQ-9 Depression Total Score: 6 10/23/20 22 10:04 AM EST documented as of this encounter Care Teams Marketing Systems Manager Relationship Specialty Start Date End Date Maranda Serna MD [address] [place] [address] PCP - General Family Medicine 08/01/21 documented as of this encounter
--- OUTSIDE RECORDS SUMMARY | 2025-01-03 14:36 | XMS_ITS | Encounter Summary ---
Author Organization [facility] Address [address] [place] [address] Care Team Providers Care Hydraulic Riveter Name Role Phone Viet Sánchez Unavailable [phone] Viet Sánchez Primary Care Provider [phone] Encounter Details Date Type Department Care Team (Late st Contact Info) Description 05/22/2020 Scanned Document [facility] [address] [address] Deja Rico, [place] [address] Social History Tobacco Use Types Packs/Day Years [...] on filedocumented in this encounter Care Teams Hydraulic Riveter Relationship Specialty Start Date End Date Viet Sánchez PA [address] [place] [address] PCP - General 06/18/18 Viet Sánchez PA [address] [place] [address] 06/18/18 documented as of this encounter
--- OUTSIDE RECORDS SUMMARY | 2025-01-03 14:36 | XMS_ITS | Encounter Summary ---
Author Organization [employer] Address [address] [facility] 7t [place] [address] Care Team Providers Care Legal Receptionist Name Role Phone Maranda Serna MD Primary Care Provider [phone] Encounter Details Date Type Department Care Team ([facility] Contact Info) Description 12/23/2024 Orders Only GENERIC EXTERNAL DATA DEPARTMENT Provider, Generic External Data Social History Tobacco Use Types Packs/Day Years [...] Description 01/17/2025 11:00 AM EDT Office Visit [facility] [address] [place] [address] Maranda Serna MD [address] [place] [address] documented as of this encounter Procedures Procedure Name Priority Date/Time Associated Diagnosis Comments CULTURE, URINE, ROUTINE Routine 12/23/2024 1:00 PM EST documented in this encounter Results * Culture, Urine, Routine (12/23/2024 1:00 PM EST) Urine Urine specimen obtained by clean catch procedure / Unknown 12/23/2024 1:00 PM EST 12/23/2024 4:59 PM EST Comment:[facility] - 12/26/2024 7:26 AM EST Escherichia coli Quant > 100,000 cfu/mL Escherichia coli: Ampicillin 8(S) Escherichia coli: Cefazolin (Urine) 2(S) Escherichia coli: Cefepime <=0.12(S) Escherichia coli: Ceftriaxone <=0.25(S) Escherichia coli: Ciprofloxacin <=0.06(S) Escherichia coli: Gentamicin <=1(S) Escherichia coli: Nitrofurantoin <=16(S) Escherichia coli: Trimethoprim/Sulfamethoxazole <=20(S) Specimen Source: Urine clean catch us Generic External Data Provider LAB MICROBIOLOGY - GENERAL ORDERABLES Final Result [facility] [address] [place] [address] [phone] documented in this encounter Visit Diagnoses Not on filedocumented in this encounter Additional Health Concerns Assessment Noted Time PHQ-9 Depression Total Score: 6 10/23/20 22 10:04 AM EST documented as of this encounter Care Teams Legal Receptionist Relationship Specialty Start Date End Date Maranda Serna MD [address] [place] [address] PCP - General Family Medicine 08/01/21 documented as of this encounter
--- OUTSIDE RECORDS SUMMARY | 2025-01-03 14:37 | XMS_ITS | Encounter Summary ---
Author Organization [employer] Address [address] [facility] 7t [place] [address] Care Team Providers Care Care Director Rn Name Role Phone Maranda Serna MD Primary Care Provider [phone] Reason for Visit * Reason Onset Date Comments Appointment Request 05/28/2024 Encounter Details Date Type Department Care Team ([facility] st Contact Info) Description 05/28/2024 Telephone [facility]INE [address] [place], [place] [phone] Maranda Serna MD [address] [place], [place] [phone] Appointment Request Social History Tobacco Use Types [...] 11:00 AM EDT Office Visit [facility] [address] [place] [address] Maranda Serna MD [address] [place] [address] documented as of this encounter Visit Diagnoses Not on filedocumented in this encounter Additional Health Concerns Assessment Noted Time PHQ-9 Depression Total Score: 6 10/23/20 22 10:04 AM EST documented as of this encounter Care Teams Care Director Rn Relationship Specialty Start Date End Date Maranda Serna MD [address] [place] [address] PCP - General Family Medicine 08/01/21 documented as of this encounter
== END 2025-01-03 13:29 | disposition home or self-care (01) ==
PROVIDERS: PCP Family Medicine; Visit Provider Nurse Practitioner Family
DX: K21.9 Gastro-esophageal reflux disease without esophagitis (principal); K86.89 Other specified diseases of pancreas; K58.1 Irritable bowel syndrome with constipation; R14.0 Abdominal distension (gaseous); K59.1 Functional diarrhea
CPT/HCPCS: 99214

== ENCOUNTER → 2025-01-03 12:53 | Outpatient (BNVA) | payer MEDICAID, SELFPAY | PROVIDERS: PCP Family Medicine; Visit Provider Nurse Practitioner Family | DX: K21.9 Gastro-esophageal reflux disease without esophagitis (principal); K86.89 Other specified diseases of pancreas; K58.2 Mixed irritable bowel syndrome; R14.0 Abdominal distension (gaseous); K91.5 Postcholecystectomy syndrome | CPT/HCPCS: 99212 ==

== ENCOUNTER 2025-01-19 13:58 | Outpatient (AMB) | payer MEDICAID, SELFPAY ==
[2025-01-19 14:02] VITALS: BP 110/54; PULSE 103; BMI 36.6
--- NOTE | 2025-01-19 14:02 | A.OFFVIS_ITS ---
Vital Signs 01/19/25 14:02 Height 5 ft 2 in Weight 200 lb 2.876 oz BMI 36.6 BP 110/54 L Blood Pressure Location Lt brachial Position Sitting Pulse 103 H Intake Visit Reasons: Preop colonoscopy +4 wk f/up Theatre Program Director Required: No Accompanied by: Self / Same As Patient Allergies Pork/Porcine Containing Products [Pork/Porcine Product Derivatives] Allergy (Mild, Verified 01/03/25 12:55) SORES /ITCHING Seasonal Allergies Allergy (Mild, Verified 01/03/25 12:55) Itching nickel Adverse Reaction (Verified 01/03/25 12:55) Swelling and irritation Medication List - Last Reconciled 01/19/25 by Elmer Rosa NP acetaminophen (Tylenol Extra Strength) 500 mg PO Q6H PRN ammonium lactate 12% 1 appl topical DAILY ascorbic acid (vitamin C) 1,000 mg PO DAILY aspirin (St Vladimir Aspirin) 81 mg PO DAILY atorvastatin 80 mg PO DAILY carvedilol 6.25 mg See Protocol PO BID clopidogrel 75 mg PO DAILY dapagliflozin propanediol (Farxiga) 5 mg PO DAILY digestive enzymes 1 cap PO BID diphenhydramine-acetaminophen 25-500 mg (Tylenol PM Extra Strength) 1 tab PO BEDTIME PRN ferrous sulfate (Iron (ferrous sulfate)) PO .qod fluticasone propionate 50 mcg/actuation 1 spray intranasal DAILY PRN incontinence pad, liner, disp As directed: change pads Q2-3 hours/PRN insulin degludec (Tresiba FlexTouch U-100 insulin) 35 units subcut BEDTIME PRN insulin lispro 45 units subcut USEASDIRECTD isosorbide mononitrate ER 30 mg PO DAILY levalbuterol HCl 1.25 mg (3 mL) inhalation Q4H PRN mirabegron ER (Myrbetriq) 50 mg PO DAILY nitroglycerin (Nitrostat) 0.4 mg sublingual Q5MX3 PRN omega 8-kou-arg-fish oil 1,000 (120-180) mg (Fish Oil) 1 cap PO DAILY omeprazole 40 mg PO DAILY pen needle, diabetic (Easy Touch) As directed prednisolone acetate 1% (Pred Forte) 1 drp ophthalmic-Left QID vitamin B complex 1 tab PO DAILY HPI Comments Details: This is a 64-year-old female patient presenting for a follow-up visit. Patient has a significant medical history for diabetes, stage 3 chronic kidney disease, hypertension, hyperlipidemia and coronary artery disease. She underwent a cardiac catheterization with Dr. Schroeder on 11/30/2024. Following the procedure, patient had an office visit where she complained of constant chest discomfort and some lightheadedness. At that time she was started on isosorbide and today she reports resolution of the symptoms. She denies any current exertional chest pain, shortness of breath, palpitations, dizziness, orthopnea, PND, leg edema, presyncope, or syncope. The patient also started cardiac rehab yesterday and reports tolerating it well so far. Patient is on dual antiplatelet therapy due to severe disease in the small coronary vessels. The patient mentioned issues with the baby aspirin such as chills and feeling jumpy, so she switched to St Vladimir's aspirin 81 mg. Since making this change, she has been feeling better overall. [facility], LAT[facility] Medical History Pancreatic insufficiency Pancreatic insufficiency Tubular adenoma CKD (chronic kidney disease) Anemia GERD (gastroesophageal reflux disease) Renal cyst Bladder prolapse, female, acquired Hx of gastric ulcer IBS (irritable bowel syndrome) Kidney stones High cholesterol Diabetes Surgical History Hx of endoscopy Hx of colonoscopy History of partial hysterectomy Hx of breast reduction, elective Hx of cholecystectomy Family History Father Heart attack DM2 (diabetes mellitus, type 2) Mother DM2 (diabetes mellitus, type 2) COPD (chronic obstructive pulmonary disease) Other No pertinent family history Social History Household Members: Family Housing: House Do you presently have visiting nurse or other home services: No Unable to assess alcohol history related to: Unknown Alcohol intake: never Patient Tobacco Use Status: Never used Tobacco Second Hand Smoke Exposure: No service: No Review of Systems Const Denies chills, Denies fatigue, Denies fever(s), Denies weight gain and Denies weight loss ENT Denies dizziness Card Denies chest pain, Denies leg edema, Denies lightheadedness, Denies palpitations, Denies dyspnea on exertion, Denies orthopnea and Denies other Resp Denies cough and Denies dyspnea on exertion GI Denies hematochezia and Denies change in stool character Musc Denies abnormal gait, Denies muscle weakness, Denies numbness, Denies radiating pain into limb and Denies tingling Neuro Denies abnormal gait, Denies dizziness, Denies numbness and Denies tingling Endo Denies fatigue and Denies palpitations Physical Exam Vital Signs: Last Vital Signs Pulse 103 H 01/19/25 14:02 BP 110/54 L 01/19/25 14:02 BMI result Body Mass Index 36.6 Const General: cooperative, healthy appearing, comfortable and no acute distress Orientation/consciousness: patient oriented x3 HEENT Head: Yes normal to inspection Neck Neck: Yes normal visual inspection, Yes trachea midline and Yes supple Chest Chest palpation & inspection: normal inspection of the chest Resp Effort & Inspection: normal respiratory effort Auscultation: clear to auscultation bilaterally, no crackles, no rales, no rhonchi and no wheezes Cardio Jugular venous distension: no JVD Palpation: normal PMI Rate: regular rate Rhythm: regular rhythm Heart sounds: S1 normal heart sound present, S2 normal heart sound present, no click, no gallops, no murmurs and no rubs Peripheral pulses: Peripheral pulses 2+ throughout GI Inspection: Yes normal to inspection Palpation (GI): Soft to palpation Auscultation: normal bowel sounds Skin General skin exam: no rashes or lesions noted Neuro General: patient oriented x3 Extrem General: Yes normal to inspection, No no pedal edema and No calf tenderness Psych Appearance: grossly normal Mental Status: mental status grossly normal Speech and movement: Normal speech and movement present Office Procedures EKG Details: EKG today showed sinus tachycardia, rate 103 beats per minute, low-voltage QRS, possible inferior and lateral infarct, not new, [place], [place]. [id number], Complete Assessment & Plan Assessment & Plan (1) S/P cardiac cath: Code(s): Z98.890 - Other specified postprocedural states Category: Surgical Plan: 11/30/2024- Cardiac catheterization showed cmgt-rg-ztymuorh distal LAD disease with severe distal stenosis and severe OM1 stenosis, small caliber vessels with severe disease and not amenable to stenting therefore was started on medical management with dual antiplatelet therapy. 12/01/2024- echo showed LVEF at 57%, with LV wall thickness in the pattern of concentric hypertrophy, central venous pressure mildly elevated, with no obvious wall motion abnormalities. Continue aspirin and Plavix therapy. Patient never continue to take her atorvastatin for unclear reasons. Starting her back on atorvastatin 80 mg daily. No recent LDL. We will repeat labs. (2) Chest pain: Code(s): R07.9 - Chest pain, unspecified Category: Medical Plan: Started Imdur 1 month ago and has been tolerating it well so far. Blood pressure today is stable. Advised checking blood pressures at home and to keep a log. We will send her blood pressure machine to her pharmacy. Previous chest CT scan on 11/27/2024 showing pulmonary nodule and thyroid nodule. We will send the report to her PCP to follow-through. Patient states she is on the process to establishing pulmonary care. Continues to be a little tachycardic, however improved rate compared to previous visit, advised to hydrate well and to build a regular exercise routine. Discussed stress medication strategies. We will check a TSH level. Patient is also only taking her carvedilol once daily and advised to increase it to twice daily as prescribed. In case her blood pressure does not tolerate this we might have to switch it to metoprolol or bisoprolol. (3) Diabetes: Code(s): E11.9 - Type 2 diabetes mellitus without complications Category: Medical Plan: Insulin-dependent. Most recent A1c 8.4%. States blood sugars stable at home. Continue aggressive management of diabetes. Ideally A1c less than 7.0. Advised heart healthy diet, regular exercise, losing weight, and aggressive management of her vascular risk factors. We will follow up in 6 months, sooner if needed. In the interim, patient will call us with any concerns or change in symptoms. Advised patient to seek ER care in case of exertional chest pain not resolved with rest. This note was generated using voice recognition software. While every effort has been made to ensure accuracy and proper housekeeping room attendant, there may be occasional errors that could affect the content or meaning of the described symptoms. Orders: Orders AMB EKG-In Office Today I25.10 - Atherosclerotic heart disease of [place] coronary artery without angina pectoris TSH reflex Free T4 Today R00.0 - Tachycardia, unspecified Medications: New atorvastatin 80 mg PO DAILY 90 tabs 3RF Refilled carvedilol 6.25 mg See Protocol PO BID 60 tabs 3RF Coding Level of Care Code Est Pt Level 4 (93514) Complex EM visit Add On G2211 Diagnoses S/P cardiac cath Z98.890 Chest pain R07.9 Diabetes E11.9 CPT Codes EKG - CPT: 75032-[id number], Complete ([id number]) Time Spent (min) 34 Comment Time spent in reviewing the chart, test results, assessment, counseling and documentation.
--- OUTSIDE RECORDS SUMMARY | 2025-01-19 16:30 | XMS_ITS | Encounter Summary ---
Author Organization [employer] Address [address] [place] [address] Care Team Providers Care Golf Starter And Ranger Name Role Phone Maranda Serna MD Primary Care Provider [phone] Encounter Details Date Type Department Care Team ([facility] st Contact Info) Description 01/13/2025 Orders Only [facility] MEDICINE [address] [place] [address] Maranda Serna MD [address] [place], [place] [phone] Pulmonary nodule (Primary Dx) Social History Tobacco Use Types Packs/Day Years Used Date Smoking Tobacco: Former Cigarettes Q uit: 1977 Passive Smoke Exposure: Past Smokeless Tobacco: Never Alcohol Use Standard Drinks/Week Comments Never 0 (1 standard drink = 0.6 oz pur e alcohol) Depression Answer Date Recorded Patient Health Questionnaire-9 Score 0 01/17/2025 Patient Health Questionnaire-9 Score 0 01/17/2025 Last PHQ-9: Questionnaire Data Not on file 0 01/17/2025 Housing Stability Answer Date Recorded What is your housing situation today? I have tristen guerin 01/17/[address] you li ve. Do you have problems with any of the following? None of the above 01/17/2025 Food Insecurity Answer Date Recorded Within the past 12 months, y ou worried that your food would run out before you got money to buy more: Never True 01/17/2025 Within the past 12 months,th e food you bought just didn't last and you didn't have enough money to get more: Never True 08/2025 Transportation Answer Date Recorded In the past 12 months, has l ack of transportation kept you from medical appts, meetings, work or from getting things needed for daily living? No 01/17/2025 Utilities Answer Date Recorded In the past 12 months, has t he electric, gas, oil or water company threatened to shut off services in your home? No 01/17/2025 Depression Answer Date Recorded Patient Health Questionnaire-2 Score 0 01/17/2025 Internet Access Answer Date Recorded Internet Access Q1 Yes 01/17/2025 Internet Access Q2 Not on file 01/17/2025 Comments Unknown Sex and Gender Information Value Date Recorded Sex Assigned at Female 09/09/2022 10:18 AM EDT Legal Sex Female 10:18 AM EDT Gender Identity Female 09/09/2022 10:18 AM EDT Sexual Orientation Choose not to disclose 2021 10:18 AM EDT documented as of this encounter Plan of Treatment Not on file documented as of this encounter Visit Diagnoses Diagnosis Pulmonary nodule- Primary Other diseases of lung, not elsewhere classified documented in this encounter Additional Health Concerns Assessment Noted Time PHQ-9 Depression Total Score: 6 10/23/20 22 10:04 AM EST documented as of this encounter Care Teams Golf Starter And Ranger Relationship Specialty Start Date End Date Maranda Serna MD [address] [place] [address] PCP - General Family Medicine 08/01/21 documented as of this encounter
--- OUTSIDE RECORDS SUMMARY | 2025-01-19 16:30 | XMS_ITS | Encounter Summary ---
Author Organization [employer] Address [address] [facility] [address] [place] [address] Care Team Providers Care Appeals Board Referee Name Role Phone Maranda Serna MD Primary Care Provider [phone] Reason for Visit * Reason Onset Date Comments chart prep 01/13/2025 Encounter Details Date Type Department Care Team ([facility] st Contact Info) Description 01/13/[address] [facility] MEDICINE [address] [place], [place] [phone] Maranda Serna MD [address] [place], [place] [phone] chart prep Social History Tobacco Use Types Packs/Day Years [...] Telephone Encounter - Ayse Arce [place] - 01/13/2025 1:43 PM EST ..chart Prep Labs: not done 07/23/24 Images: not done Vaccines due: Updated Referrals: Completed Screenings: Eye Exam Overdue care gaps: A1C, Glucose, Sbirt, SDOH, PHQ-9, Oral Health, and juan-7 documented in this encounter Plan of Treatment Not on file documented as of this encounter Visit Diagnoses Not on filedocumented in this encounter Additional Health Concerns Assessment Noted Time PHQ-9 Depression Total Score: 6 10/23/20 22 10:04 AM EST documented as of this encounter Care Teams Appeals Board Referee Relationship Specialty Start Date End Date Maranda Serna MD [address] [place] [address] PCP - General Family Medicine 08/01/21 documented as of this encounter
--- OUTSIDE RECORDS SUMMARY | 2025-01-19 16:30 | XMS_ITS | Clinical Summary ---
Author Organization [address] [facility] Address [address] [place] [address] Phone Care Team Providers Care Motorcyles Final Inspector Name Role Phone Machelle Swann MD Primary Care Provider [phone] Allergies Active Allergy Reactions Criticality Noted Date [...] 42 mcg (0.06 %) nasal spray 1 Ransom by Nasal route. 09/24/20 Active omega-3 acid [...] osteoarthritis; plantar fasciitis - referred to a radiographer mammographer; waiting for an appt - check the [...] hyperkalemia and cough -Currently prescribed Dapagliflozin from surveillance manager -Follow up in 3-6 mo, sooner if [...] Last Assessment & Plan: - followed by [facility] - no anatomical pancreatic abnormality on MRI in Dec 2022 - continue vegan / plant-based pancreatic enzyme Right knee pain 12/16/2022 Allergic rhinitis 10/12/2022 Anemia 10/12/2022 Overview (08/25/2024): Last Assessment & Plan: - likely due to chronic diseaes - Hx iron infusion - 12/24/22 Hgb 11.7, Hematocrit 35.7 Chronic idiopathic constipation 10/12/2022 Overview (08/25/2024): Last Assessment & Plan: -Followed by [facility], last seen 08/06/22 -EGD and Colonoscopy on 12/24/21; showed Tubular Adenoma, she was recommended to repeat in 3 years. - pt has been using castor oil - continue trying fiber-rich diet and increasing physical activity as tolerated. - continue Senakot as prescribed Chronic kidney disease, stage III (moderate) 01/2022 Overview (08/25/2024): Last Assessment & Plan: - Blood Bank Order Control Clerk, Dr. 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 Tsai is prescribing Dapagliflozin (Farxiga) - Previously on Lisinopril, but was disccontinued due to cough / K - Avoid nephrotoxic drugs - Renal dose meds Gastroesophageal reflux disease 10/12/2022 Overview (08/25/2024): Last Assessment & Plan: -s/p EGD 12/24/21 -followed by [facility] -continue omeprazole 40mg daily -previously tried pantoprazole and lansoprazole; pt prefers omeprazole. -previously prescribed famotidine. Max dose for her renal function is 20 mg daily. Pt does not take it regularly. Irritable bowel syndrome 10/12/2022 Overview (08/25/2024): Last Assessment & Plan: - followed by [facility] - continue current treatment plan per [...] 09/14/2024 1:20 PM EST Plan of Treatment Upcoming Encounters Date Type Department Care Team (Late st Contact Info) Description 03/17/2025 2:00 PM EDT Office Visit Orthopedic Surgery - [place] [address] [facility] [address] [place] [address] Damien Centeno DPM [address] [address] Health Maintenance Due Date Last Done Comments [...] BMP Blood Test (12/30/2023) Pathologist [facility] Annual BMP Blood Test Abstracted Result [facility] Provider HEALTH MAINTENANCE Final Result * Hemoglobin A1c (12/30/2023) Pathologist [facility] Hemoglobin A1C 0.0 % Comment:no interpretation Blood Venous blood specimen / Unknown Result [facility] Provider LAB BLOOD ORDERABLES Machelle l Result * Lipid panel (12/30/2023) Triglycerides 0 mg/dL Comment:no interpretation Cholesterol 0 mg/dL Comment:no interpretation HDL 0 mg/dL Comment:no interpretation LDL Cholesterol 0 mg/dL Comment:no interpretation Blood Venous blood specimen / Unknown Result [facility] Provider LAB BLOOD ORDERABLES Machelle l Result * Urine Albumin Creatinine Ratio (07/24/2022) Urine Albumin Creatinine Ratio Abstracted us Historical Provider HEALTH MAINTENANCE Final Result from Last 3 Months or Most Recently Relevant to Health Maintenance Insurance MEDICAID - [place] Care Teams Motorcyles Final Inspector Relationship Specialty Start Date End Date Machelle Swann MD [address] [place] [address] [place] [address] PCP - General 10/15/12
--- OUTSIDE RECORDS SUMMARY | 2025-01-19 16:30 | XMS_ITS | Clinical Summary ---
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 - Will obtain lab work. Also curious to see radiographic imaging of the hands, feets, SI and lumbar spine. Will obtain interval history from utilization supervisor Karlee Le. - RTC in 4 months [...] Procedure Name Priority Date/Time Associated Diagnosis Comments MICROALBUMIN, URINE, RANDOM WITH CREATININE Routine 02/09/2019 10:15 AM EDT Type 2 diabetes mellitus with diabetic polyneuropathy, with long-term current use of insulin ([facility]) POCT HEMOGLOBIN, A1C Routine 02/09/2019 8:10 AM EDT Type 2 diabetes mellitus with diabetic polyneuropathy, with long-term current use of insulin ([facility]) HIV COMBO ANTIGEN/ANTIBODY Routine 10/06/2018 3:59 PM EST Polyarthralgia from Last 3 Months or Most Recently Relevant to Health Maintenance Results * Microalbumin/creatinine ratio (02/09/2019 10:15 AM EDT) Microalbumin/Creat Ratio 20 2 - 20 mg/g Creat 02/09/2019 11:55 AM EDT [facility] Creatinine, Urine, Random 101 mg/dL 02/09/2019 11:55 AM EDT [facility] Comment: The laboratory does not have established reference ranges for this test. Interpretation of results is at the discretion of the ordering physician. Urine specimen (specimen) Urine specimen obtained by clean catch procedure / Unknown Non-blood Collection / Unknown 02/09/2019 10:15 AM EDT 02/09/2019 10:15 AM EDT us Keke Katz APRN LAB URINE ORDERABLES Final Res ult [facility] [address] [place] [address], [place] [phone] * POCT hemoglobin, A1c (02/09/2019 8:10 AM EDT) POCT Hemoglobin A1C 9.2 4.4 - 6.4 % Blood specimen (specimen) 02/09/2019 8:10 AM EDT us Eliasrijuan c Katz ACTUARIAL DIRECTOR POCT ORDERABLES NO CHARGE Machelle l Result * HIV combo antigen/antibody (10/06/2018 3:59 PM EST) HIV Combo AB/AG Negative Negative 10/06/2018 6:02 PM EST [facility] Blood specimen (specimen) Venous blood specimen / Unknown Venipuncture / Unknown 10/06/2018 3:59 PM EST 10/06/2018 3:59 PM EST Narrative [facility] - 10/06/2018 6:02 PM EST This test is a 4th generation HIV Antigen-Antibody Combination assay, using a chemiluminescent microparticle immunoassay, for the simultaneous qualitative detection of human immuno- deficiency virus (HIV) p24 antigen and antibodies to HIV type 1 (HIV-1) and/or HIV type 2 (HIV-2) in human serum or plasma. The [employer] HIV Ag/Ab Combo assay is intended to [...] BLOOD ORDERABLES NO ST AT Final Result [facility] [address] [place] [address], [place] [phone] from Last 3 Months or Most Recently Relevant to Health Maintenance Insurance [id number] [id number] MEDICAID [place] Care Teams Multiple Spindle Screw Machine Operator Relationship Specialty Start Date End Date Viet Sánchez PA [address] [place] [id number] PCP - General Family Medicine 07/22/18
--- OUTSIDE RECORDS SUMMARY | 2025-01-19 16:30 | XMS_ITS | Clinical Summary ---
Author Organization [facility] Address [address] [place] [address] Care Team Providers Care Quality Review Specialist Name Role Phone ChapispriscillaViet Primary Care Provider [phone] Allergies Active Allergy Reactions Criticality Noted Date [...] age to complete this topic Care Teams Quality Review Specialist Relationship Specialty Start Date End Date Viet Sánchez [address] [place] [address] PCP - General Medical Services 06/19/18
--- OUTSIDE RECORDS SUMMARY | 2025-01-19 16:30 | XMS_ITS | Encounter Summary ---
Author Organization [employer] Address [address] [facility] 7[address] [place] [address] Care Team Providers Care Glass Or Mirror Inspector Name Role Phone Maranda Serna MD Primary Care Provider [phone] Encounter Details Date Type Department Care Team (Latest Contact Info) Description 01/17/2025 Travel Social History Tobacco Use Types Packs/Day Years [...] Assessment Noted Time PHQ-9 Depression Total Score: 0 01/18/20 25 1:12 PM EDT documented as of this encounter Care Teams Glass Or Mirror Inspector Relationship Specialty Start Date End Date Maranda Serna MD [address] [place] [address] PCP - General Family Medicine 08/01/21 documented as of this encounter
--- OUTSIDE RECORDS SUMMARY | 2025-01-19 16:30 | XMS_ITS | Encounter Summary ---
Author Organization [employer] Address [address] [facility] [address] [place] [address] Care Team Providers Care Investigator Name Role Phone Maranda Serna MD Primary Care Provider Reason for Visit * Reason Onset Date Comments Hospital Follow-up 12/07/2024 Encounter Details Date Type Department Care Team ([facility] st Contact Info) Description 12/07/2024 Telephone [facility] MEDICINE [address] [place], [place] [phone] Maranda Serna MD [address] [place], [place] [phone] Hospital Follow-up Social History Tobacco Use Types [...] Miscellaneous Notes * Telephone Encounter - Grayson Abduls - 12/07/2024 12:28 PM EST Tc from pt returning call about hospital follow up. Pt requested a call back. [phone] (Pt Contact) documented in this encounter Plan of Treatment Not on file documented as of this encounter Visit Diagnoses Not on filedocumented in this encounter Additional Health Concerns Assessment Noted Time PHQ-9 Depression Total Score: 6 10/23/20 10:04 AM EST documented as of this encounter Care Teams Investigator Relationship Specialty Start Date End Date Maranda Serna MD [address] [place] [address] PCP - General Family Medicine 08/01/21 documented as of this encounter
--- OUTSIDE RECORDS SUMMARY | 2025-01-19 16:30 | XMS_ITS | Encounter Summary ---
Author Organization [employer] Address [address] [facility] 7[address] [place] [address] Care Team Providers Care Metal Drilling Machine Operator Name Role Phone Maranda Serna MD Primary Care Provider [phone] Encounter Details Date Type Department Care Team ([facility] st Contact Info) Description 01/17/2025 11:00 AM EDT Office Visit [facility] [address], [place] [phone] Maranda Serna MD [address] [place], [place] [phone] Coronary artery disease of [place] artery of [place] heart with stable angina pectoris (CMS/HCC) (Primary Dx); Stage 3b chronic kidney disease (CMS/HCC); Chronic idiopathic constipation; Type 2 diabetes mellitus with hyperglycemia, with long-term current use of insulin (CMS/HCC); Type 2 diabetes mellitus with stage 3b chronic kidney disease, with long-term current use of insulin (CMS/HCC); Dyslipidemia; Anemia due to stage 3b chronic kidney disease (CMS/HCC) ([facility]/HCC) Social History Tobacco Use Types Packs/Day Years [...] AM EDT documented as of this encounter Last Filed Vital Signs Vital Sign Reading Time Taken Comments Blood Pressure 123/64 01/17/2025 11:22 AM EDT Pulse 110 01/17/2025 11:22 AM EDT Temperature 36.1 ??C (96.9 ??F) 01/17/2025 11:22 AM E DT Respiratory Rate 23 01/17/2025 11:22 AM EDT Oxygen Saturation 100% 01/17/2025 11:22 AM EDT Inhaled Oxygen Concentration - - Weight 93 kg (205 lb) 01/17/2025 11:22 AM EDT Height 160.1 cm (5' 3.04 ) 01/17/2025 11:22 AM E DT Body Mass Index 36.27 01/17/2025 11:22 AM EDT documented in this encounter Miscellaneous Notes * Assessment & Plan Note - Marci Cuellar MA - 01/17/2025 11:35 AM EDT Associated Problem(s): Type 2 diabetes mellitus with diabetic polyneuropathy (CMS/[facility]) - seeing human resources project coordinator - continue judicious use of gabapentin 100 mg tid - she wants to switch to tablet. Only tablets available are 600 and 800 mg tablet - will have her take 1/4 of 600 mg tablet and take bid; or will check with pharmacist if she can open the capsule and take inside content * Assessment & Plan Note - Marci Cuellar MA - 01/17/2025 9:05 AM EDTAssociated Problem(s): Dyslipidemia - Last lipid profile in Dec 2023; ASCVD risk 10.4% - Previously prescribed pravastatin - Currently prescribed atorvastatin, but pt was having a difficulty accepting the information that it is not nephrotoxic. We discussed it again. Pt is willing to try or repeat lipid profile in 3 mo and reassess her readiness to start taking it. - Continue working on lifestyle modifications. * Assessment & Plan Note - Marci Cuellar MA - 01/17/2025 9:05 AM EDTAssociated Problem(s): Anemia - likely due to chronic diseaes - Hx iron infusion * Assessment & Plan Note - Marci Cuellar MA - 01/17/2025 9:05 AM EDTAssociated Problem(s): Type 2 diabetes mellitus with stage 3b chronic kidney disease, with long-term current use of insulin ([facility]) -Hgb A1C 9.3 % slightly worsened from [...] want to try any GLP-1 agonist. -Patient Attacher prescribed Farxiga. Patient is taking this medication on and off. -metformin was discontinued due to CKDIII and renal decline. -Eye exam: 04/09/23 per pt -Foot exam: Jul 2024 Diabetic peripheral neuropathy. -Microalbumin Test: 12/30/23 Hx microalbuminuria -Lipid profile: 12/30/23 --Follow-up in 3 months or sooner for concerning symptoms * Assessment & Plan Note - Marci Cuellar MA - 01/17/2025 9:04 AM EDTAssociated Problem(s): Type 2 diabetes mellitus ([facility]) - A1c 9.0% on 01/17/25 - A1c 9.3% on 07/19/2024. - Continue [...] want to try any GLP-1 agonist. -Patient Attacher prescribed Farxiga. Patient is taking this medication on and off -metformin was discontinued due to CKDIII and renal decline. -Eye exam: 04/09/23 per pt -Foot exam: Jul 2024; diabetic peripheral neuropathy -Microalbumin Test: Dec 2023 Hx microalbuminuria -Lipid profile: Dec 2023 --Follow-up in 3 months or sooner for concerning symptoms * Assessment & Plan Note - Marci Cuellar MA - 01/17/2025 9:04 AM EDTAssociated Problem(s): Chronic kidney disease, stage III (moderate) (CMS/HCC) - Attacher, Dr. Marci Hylton. - Metformin is discontinued, Dr. Tsai started bryn ib Dapagliflozin (Farxiga) - Previously on Lisinopril, but was disccontinued due to cough / K - Avoid nephrotoxic drugs, including NSAID (no more Aleve) - Renal dose meds * Assessment & Plan Note - Marci Cuellar MA - 01/17/2025 9:04 AM EDTAssociated Problem(s): Chronic idiopathic constipation -Followed by [facility], last seen 08/06/22 -EGD and Colonoscopy on 12/24/21; showed Tubular Adenoma, she was recommended to repeat in 3 years. - pt has been using castor oil - continue trying fiber-rich diet and increasing physical activity as tolerated. - continue Senakot as prescribed * Assessment & Plan Note - Maranda Serna MD - 01/16/2025 5:28 PM EDTAssociated Problem(s): Coronary artery disease -Casting Cleaner: [facility], last seen in Dec 2024 -11/30/2024- Cardiac catheterization showed vesm-os-blrmnhdd distal LAD disease with severe distal stenosis and severe OM1 stenosis, small caliber vessels with severe disease and not amenable to stenting therefore was started on medical management with dual antiplatelet therapy. -12/01/2024- echo showed LVEF at 57%, with LV wall thickness in the pattern of concentric hypertrophy, central venous pressure mildly elevated, with no obvious wall motion abnormalities. -Continue aspirin and Plavix therapy. -Continue statin therapy, ideally LDL less than 70. documented in this encounter Plan of Treatment Not on file documented as of this encounter Procedures Procedure Name Priority Date/Time Associated Diagnosis Comments POCT GLYCOSYLATED HEMOGLOBIN (HGB A1C) Routine 01/17/2025 11:29 AM EDT Type 2 diabetes mellitus with hyperglycemia, with long-term current use of insulin ([facility]) POCT GLUCOSE Routine 01/17/2025 11:29 AM EDT Type 2 diabetes mellitus with hyperglycemia, with long-term current use of insulin ([facility]) documented in this encounter Results * (ABNORMAL) POCT glycosylated hemoglobin (Hgb A1c) (01/17/2025 11:29 AM EDT) Hemoglobin A1C 9.0(A) 4.0 - 6.0 % QC Media Lot # [id number] Lot# Expiration Date Blood Capillary blood specimen / Unknown 01/17/2025 11:29 AM EDT us Maranda Serna MD POINT OF CARE TEST ENTER/EDIT OR DERABLES Final Result * (ABNORMAL) POCT glucose manually resulted (01/17/2025 11:29 AM EDT) Glucose Blood, POC 235(A) 60 - 200 mg/dL QC Media Lot # [id number] Lot# Expiration Date Blood Capillary blood specimen / Unknown 01/17/2025 11:29 AM EDT us Maranda Serna MD POINT OF CARE TEST ENTER/EDIT OR DERABLES Final Result documented in this encounter Visit Diagnoses Diagnosis Coronary artery disease of [place] artery of [place] heart with stable angina pectoris ([facility])- Primary Stage 3b chronic kidney disease ([facility]) Chronic idiopathic constipation Unspecified constipation Type 2 diabetes mellitus with hyperglycemia, with long-term current use of insulin ([facility]) Type 2 diabetes mellitus with stage 3b chronic kidney disease, with long-term current use of insulin ([facility]) Dyslipidemia Other and unspecified hyperlipidemia Anemia due to stage 3b chronic kidney disease (CMS/HCC) ([facility]) documented in this encounter Additional Health Concerns Assessment Noted Time PHQ-9 Depression Total Score: 0 01/18/20 25 1:12 PM EDT documented as of this encounter Care Teams Metal Drilling Machine Operator Relationship Specialty Start Date End Date Maranda Serna MD [address] [place] [address] PCP - General Family Medicine 08/01/21 documented as of this encounter
--- OUTSIDE RECORDS SUMMARY | 2025-01-19 16:30 | XMS_ITS | Encounter Summary ---
Author Organization [employer] Address [address] [facility] [address]t [place] [address] Care Team Providers Care Log Chipper Name Role Phone Maranda Serna MD Primary Care Provider [phone] Encounter Details Date Type Department Care Team ([facility] Contact Info) Description 12/23/2024 Orders Only GENERIC [...] 1:00 PM EST 12/23/2024 4:59 PM EST Comment:[facility] - 12/26/2024 7:26 AM EST Escherichia coli Quant > 100,000 cfu/mL Escherichia coli: Ampicillin 8(S) Escherichia coli: Cefazolin (Urine) 2(S) Escherichia coli: Cefepime <=0.12(S) Escherichia coli: Ceftriaxone <=0.25(S) Escherichia coli: Ciprofloxacin <=0.06(S) Escherichia coli: Gentamicin <=1(S) Escherichia coli: Nitrofurantoin <=16(S) Escherichia coli: Trimethoprim/Sulfamethoxazole <=20(S) Specimen Source: Urine clean catch us Generic External Data Provider LAB MICROBIOLOGY - GENERAL ORDERABLES Final Result Performing Organization Address City/State/[facility] Co de Phone Number [facility] [address] [place] [phone] documented in this encounter Visit Diagnoses Not on filedocumented in this encounter Additional Health Concerns Assessment Noted Time PHQ-9 Depression Total Score: 6 10/23/20 22 10:04 AM EST documented as of this encounter Care Teams Log Chipper Relationship Specialty Start Date End Date Maranda Serna MD [address] [place] [address] PCP - General Family Medicine 08/01/21 documented as of this encounter
--- OUTSIDE RECORDS SUMMARY | 2025-01-19 16:30 | XMS_ITS | Encounter Summary ---
Author Organization [employer] Address [address] [facility] 7t [place] [address] Care Team Providers Care Net Programmer Analyst Name Role Phone Maranda Serna MD Primary Care Provider [phone] Reason for Visit * Reason Comments Med Refill Encounter Details Date Type Department Care Team (Late st Contact Info) Description 11/19/2023 Refill [facility] [address] [place], [place] [phone] Yesica Naylor MD [address] [place] [address] Social History Tobacco Use Types Packs/Day Years [...] documented as of this encounter Care Teams Net Programmer Analyst Relationship Specialty Start Date End Date Maranda Serna MD [address] [place] [address] PCP - General Family Medicine 08/01/21 documented as of this encounter
--- OUTSIDE RECORDS SUMMARY | 2025-01-19 16:30 | XMS_ITS | Data Portability ---
Author Organization [facility] - Clarence Sen MD, [facility]- Address [address] [place] [id number] Assessment No assessment recorded. Plan of Treatment Reminders Order Date Submit Date Provider Last Modified By Organization Details Last Modified Time Details Appointments None recorded. Lab urinalysis, complete 2016 017 [email or web address] In-House Results, For Internal Use Only, Do Not Delete/merge, [id number] 7 11:38:12 urinalysis, complete 2016 017 [email or web address] In-House Results, For Internal Use Only, Do Not Delete/merge, [id number] 7 11:38:12 urinalysis, complete 2016 017 [email or web address] In-House Results, For Internal Use Only, Do Not Delete/merge, [id number] 7 13:16:50 urinalysis, complete 2016 017 t[facility]ung In-House Results, For Internal Use Only, Do Not Delete/merge, [id number] 7 13:16:50 urinalysis, complete 2016 017 tmcclung In-House Results, For Internal Use Only, Do Not Delete/merge, [id number] 7 14:28:33 urinalysis, complete 2016 017 tmcclung In-House Results, For Internal Use Only, Do Not Delete/merge, [id number] 7 14:28:33 Referral None recorded. Procedures None recorded. Surgeries None recorded. Imaging US, retroperito neum 2016 017 tmcclung In-House Results, For Internal Use Only, Do Not Delete/merge, [id number] 7 14:28:33 Medication Orders None recorded. Patient TargetsNo targets recorded. Patient Instructions Encounter Date Encounter Id Patient Instructions Last Modified By Organization Details Last Modified Time 05/06/2017 [id number] Urinary Tract Infection (UTI) in Women: Care Instructions [email or web address] Not available 05/09/2017 14:28:33 bladder training : care instructions [email or web address] Not available 05/09/2017 14:28:33 kegel exercises: care instructions [email or web address] Not available 05/09/2017 14:28:33 Stress Incontinence: Care Instructions [email or web address] Not available 05/09/2017 14:28:33 Urge Incontinence: Care Instructions [email or web address] Not available 05/09/2017 14:28:33 07/30/2017 [id number] Urinary Tract Infection (UTI) in Women: Care Instructions [email or web address] Not available 08/04/2017 13:16:50 bladder training : care instructions [email or web address] Not available 08/04/2017 13:16:50 kegel exercises: care instructions tmcclung Not available 08/04/2017 13:16:50 Stress Incontinence: Care Instructions [email or web address] Not available 08/04/2017 13:16:50 Urge Incontinence: Care Instructions [email or web address] Not available 08/04/2017 13:16:50 09/29/2017 [id number] Urinary Tract Infection (UTI) in Women: Care Instructions [email or web address] Not available 10/01/2017 12:43:07 Reason for Referral None Reported. Results Created Date Observation Date Name Description Value Unit Range Abnormal Flag Note LastModifiedBy Organization Detail LastModifiedTime 09/29/20 17 09/29/2017 urina lysis , compl ete Leukocytes Negati ve Not Available In-House Results For Internal Use Only, Do Not Delete/merge, [id number] 09/29/2017 18:46:44 09/29/20 17 09/29/2017 urina lysis , compl ete Nitrite negati ve Not Available In-House Results For Internal Use Only, Do Not Delete/merge, [id number] 09/29/2017 18:46:44 09/29/20 17 09/29/2017 urina lysis [...] 09/29/2017 urina lysis , compl ete Specific Wallace 1.020 Not Available In-Louise se Results For [...] 09/29/2017 urina lysis , compl ete Specific Wallace 1.025 Not Available In-[facility] se Results For [...] 07/30/2017 urina lysis , compl ete Specific Wallace 1.020 Not Available In-[facility] se Results For [...] 07/30/2017 urina lysis , compl ete Specific Wallace 1.030 Not Available In-[facility] se Results For [...] 05/06/2017 urina lysis , compl ete Specific Wallace 1.015 Not Available In-[facility] se Results For [...] 05/06/2017 urina lysis , compl ete Specific Wallace 1.025 Not Available In-[facility] se Results For [...] routine FINAL REPORT abnormal Not Available [facility] ([facility]) [address] [place], [address], 05/08/2017 16:19:18 05/06/2005/08/2017 cultu re, urine result 1 KLEBSI MONICA PNEUMO NIAE abnormal GREAT ER THAN 100,0 00 COLON Y FORMI NG UNITS PER ML Not Available [facility] ([facility]) [address] [facility], [place], [address], 05/08/2017 16:19:18 05/06/20 17 05/08/2017 cultu re, [...] THOPR IM/ANDRADE LFA S Not Available [facility] ([facility]) [address] [place], [address], 05/08/2017 16:19:18 07/30/20 17 08/01/2017 cultu re, urine urine culture, routine FINAL REPORT abnormal Not Available [facility] ([facility]) [address] [place], [address], 08/01/2017 16:22:57 07/30/20 17 08/01/2017 cultu re, urine result 1 KLEBSI MONICA PNEUMO NIAE abnormal Great er than 100,0 00 colon y formi ng units per mL Not Available [facility] ([facility]) [address] [place], [address], 08/01/2017 16:22:57 07/30/20 17 08/01/2017 cultu re, [...] thopr im/Andrade lfa S Not Available [facility] ([facility]) [address], [place], [address], 08/01/2017 16:22:57 05/15/20 17 05/15/2017 US, renal No observ ation record ed. [email or web address] [facility] [address] [facility], [place], [address], 07/30/2017 17:43:40 07/30/20 17 05/15/2017 US, retro [...] LastModified Time 05/15/2017 US, renal completed [email or web address] [facility] [address] [facility], [place], [address], 07/30/2017 17:43:40 05/15/2017 US, retroperitoneum completed [email or web address] Infor mation not available 09/30/2017 11:33:32 05/15/2017 XR, kidney + ureter + bladder completed [email or web address] Information not available 09/30/2017 11:33:32 Procedure [...] Updated DateTime 7 157.48 cm 37.5 kg/m2 86290.4 4 g 84 /min 98 mm[Hg] 41 mm[Hg] Ashley Sen MD 7 15:17:41 Date Recorded Body height Body mass index (BMI) Body weight Heart rate Systolic blood pressure Diastolic blood pressure Provider Name and Address Organization Details Last Updated DateTime 7 160.02 cm 35.8 kg/m2 05203.6 6 g 87 /min 113 mm[Hg] 49 mm[Hg] Ashley Sen MD 7 15:05:21 Date Recorded Body height Body mass index (BMI) Body weight Heart rate Systolic blood pressure Diastolic blood pressure Provider Name and Address Organization Details Last Updated DateTime 7 160.02 cm 35.8 kg/m2 24943.6 6 g 98 /min 107 mm[Hg] 51 [...] (High Blood Pressure) N High Cholesterol N Cancer (Please specify type) N Liver Disease N Heart Disease N Parkinson's N Epilepsy or Seizures N Dialysis N Kidney Disease N Gynecological HistoryNo gynecological history recorded. Obstetrics History GPAL:G 0 P 0 0 0 0 Past Encounters Encounter ID Performer Location Encounter Start Date Encounter Closed Date Diagnosis/Indication Diagnosis SNOMED-CT Code Diagnosis ICD10 Code Diagnosis Note [id number] [address] [place] [address] 05/06/2017 14:29:22 05/06/2017 17:13:49 Mixed urinary incontinence 289803574 N39.46 Incomplete emptying of urinary bladder 379711597 R39.14 Urinary tr act infectious disease 90020440 N39.[id number] [place] [address] 07/30/2017 14:16:01 07/30/2017 17:45:30 Mixed urinary incontinence 377928294 N39.46 Cystitis 87706734 N30.90 Urinary tr act infectious disease 89765869 N39.[id number] [place] [address] 09/29/2017 17:41:48 09/30/2017 11:37:17 Urinary tract infectious disease 17821000 N39.0 Health Concerns Section Related Observation LastModified by Organization Detai ls LastModified Time None Recorded Concern Status LastModified by Organization Details LastModified Time None Recorded Advance Directives Directive None Recorded Payers Encounter Date Sequence Insurance Name Policy Number Policy Singer Covered Member ID Singer Member ID Guarantor Name 05/06/2017 1 [facility] [place]MEDICA[place] REPLACEMENT - HMO) [id number] Ese N Reji [id number] Ese N Reji 07/30/2017 1 [facility] [place]PLACEMENT - HMO) [id number] Ese N Reji [id number] Ese N Reji 09/29/2017 1 [facility] [place]PLACEMENT - HMO) [id number] Ese N Reji [id number] Ese N Reji OBGyn Episode No OBEpisode recorded.
--- OUTSIDE RECORDS SUMMARY | 2025-01-19 16:30 | XMS_ITS | Encounter Summary ---
Author Organization [employer] Address [address] [facility] [address] [place] [address] Care Team Providers Care Diagrammer And Seamer Name Role Phone Maranda Serna MD Primary Care Provider [phone] Encounter Details Date Type Department Care Team (Late st Contact Info) Description 04/22/2023 Orders Only [facility] [address] [place] [address] Maranda Serna MD [address] [place] [address] Left foot pain (Primary Dx); Type 2 diabetes mellitus with hyperglycemia, with long-term current use of insulin ([facility]) Social History Tobacco Use Types Packs/Day Years [...] hyperglycemia, with long-term current use of insulin ([facility]) documented in this encounter Additional Health Concerns Assessment Noted Time PHQ-9 Depression Total Score: 6 10/23/20 22 10:04 AM EST documented as of this encounter Care Teams Diagrammer And Seamer Relationship Specialty Start Date End Date Maranda Serna MD [address] [place] [address] PCP - General Family Medicine 08/01/21 documented as of this encounter
--- OUTSIDE RECORDS SUMMARY | 2025-01-19 16:30 | XMS_ITS | Encounter Summary ---
Author Organization [employer] Address [address] [facility] 7t [place] [address] Care Team Providers Care Prevocational/Rehabilitation Counselor Name Role Phone Maranda Serna MD Primary Care Provider [phone] Reason for Visit * Reason Comments Med Refill Encounter Details Date Type Department Care Team (Late st Contact Info) Description 01/12/2025 Refill [facility] [address] [place], [place] [phone] Yesica Naylor MD [address] [place] [address] Social History Tobacco Use Types Packs/Day Years [...] documented as of this encounter Care Teams Prevocational/Rehabilitation Counselor Relationship Specialty Start Date End Date Maranda Serna MD [address] [place] [address] PCP - General Family Medicine 08/01/21 documented as of this encounter
--- OUTSIDE RECORDS SUMMARY | 2025-01-19 16:30 | XMS_ITS | Clinical Summary ---
Author Organization [employer] Address [address] [facility] [address] [place] [address] Care Team Providers Care Annual Greenhouse Manager Name Role Phone Maranda Serna MD Primary Care Provider [phone] Allergies Active Allergy Reactions Criticality Noted Date Comments Cetirizine 10/01/2021 Nickel Rash Low 02/03/2020 Pork (Porcine) Protein 12/16/2022 Pork Allergy 06/25/2018 Medications * This document contains information received from the source organization and may not represent a complete record from that organization. ascorbic acid (Vitamin C) 500 MG tablet Take by mouth. 2 times every day 1 Active atorvastatin (Lipitor) 20 MG tablet Take 1 tablet by mouth in the morning. 1 Active castor oil liquid Purchases OTC_ takes daily Active cholecalcifero l (Vitamin D-3) 10 MCG (400 UNIT) tablet Purchases OTC - takes 2 tablets daily Active Cranberry 450 MG tablet Purchases OTC - takes BID Active estradiol (Estrace) 0.1 MG/GM vaginal cream Insert into the vagina. 2 times every week Active fluticasone (Flonase) 50 MCG/ACT nasal spray spray 1 spray by intranasal route every day in each nostril 1 Active ipratropium (Atrovent) 0.06 % nasal spray Administer 1 spray into affected nostril(s) every 8 (eight) hours. 1 Active omega-3 (Fish Oil) 1000 MG capsule Purchases OTC - take 1 every day Active albuterol 108 (90 Base) MCG/ACT inhalerIndicat ions:Wheezing Inhale 1-2 puffs Every 4-6 hours as needed for wheezing. 18 g 3 Active famotidine (Pepcid) 20 MG tablet Take 1 tablet (20 mg) by mouth at bedtime. 15 tablet 3 Active cetirizine (ZyrTEC) 5 MG tablet Take 1 tablet (5 mg) by mouth in the morning. 30 tablet 11 3 Active Blood Glucose Monitoring Suppl (FreeStyle Lite) w/Device kit 1 Dose 3 times daily. 1 kit 3 Active omeprazole OTC (PriLOSEC OTC) 20 MG EC tablet Take 20 mg by mouth before breakfast. Do not crush, chew, or split. Active Acetaminophen Extra Strength 500 MG tablet TAKE 1 TO 2 TABLETS BY MOUTH EVERY 8 HOURS NEEDED FOR PAIN OR FEVER 90 tablet 3 4 Active TRUEplus Lancets 33G miscIndication s:Type 2 diabetes mellitus with hyperglycemia, with long-term current use of insulin ([facility]) TEST BLOOD SUGAR THREE TIMES DAILY 100 each 5 4 Active glucose blood (FREESTYLE LITE) test strip TEST BLOOD SUGAR 3 TIMES A DAY 100 each 11 4 Active predniSONE (Deltasone) 10 MG tablet Take 1 or 2 tablets by mouth once daily for pain 10 tablet 4 Active gabapentin (Neurontin) 600 MG tablet Take 1/4 (150 mg) or 1/2 (300 mg) tablets by mouth once at bedtime 15 tablet 11 4 Active oxybutynin XL (Ditropan-XL) 5 MG 24 hr tablet Take 5 mg by mouth Once per day. 3 Active insulin lispro (HumaLOG) 100 UNIT/ML injection INJECT 14 UNITS SUBCUTANEOUSLY THREE TIMES DAILY BEFORE MEALS 15 mL 2 5 Active insulin degludec (Tresiba FlexTouch) 100 UNIT/ML injection INJECT 62 UNITS SUBCUTANEOUSLY EVERY DAY 30 mL 2 5 Active Easy Touch Pen Georgiana 31G X 8 MM miscIndication s:Type 2 diabetes mellitus with hyperglycemia, with long-term current use of insulin ([facility]) USE DIRECTED THREE TIMES DAILY 200 each 11 5 Active aspirin 81 MG EC tablet Take 1 tablet (81 mg) by mouth Once per day. 90 tablet 3 5 026 Active Active Problems Problem Noted Date Diagnosed Date Coronary artery disease 01/16/2025 Assessment & Plan (01/16/2025 5:28 PM EDT): -Surgical Nurse: [facility], last seen in Dec 2024 -11/30/2024- Cardiac catheterization showed [id number] distal LAD disease with severe distal stenosis [...] statin therapy, ideally LDL less than 70. Closed nondisplaced fracture of proximal phalanx of [...] and supportive care - follow up with metal stamper as scheduled Assessment & Plan (07/23/2024 9:02 [...] diabetic polyneuro rafael 10/03/2023 Assessment & Plan (01/17/2025 11:35 AM EDT): - seeing metal stamper - continue judicious use of gabapentin 100 mg tid - she wants to switch to tablet. Only tablets available are 600 and 800 mg tablet - will have her take 1/4 of 600 mg tablet and take bid; or will check with pharmacist if she can open the capsule and take inside content Assessment & Plan (07/23/2024 5:36 AM EDT): - seeing metal stamper - continue judicious use of gabapentin 100 mg tid - she wants to switch to tablet. Only tablets available are 600 and 800 mg tablet - will have her take 1/4 of 600 mg tablet and take bid; or will check with pharmacist if she can open the capsule and take inside content Assessment & Plan (01/04/2024 3:36 PM EST): - seeing metal stamper - continue judicious use of gabapentin Assessment & Plan (10/03/2023 9:48 AM EST): - seeing metal stamper - waiting for diabetic orthotics Adjustment disorder [...] hyperkalemia and cough -Currently prescribed Dapagliflozin from animal shelter supervisor -Follow up in 3-6 mo, sooner if [...] hyperkalemia and cough -Currently prescribed Dapagliflozin from animal shelter supervisor -Follow up in 3-6 mo, sooner if [...] osteoarthritis; plantar fasciitis - referred to a metal stamper; waiting for an appt - check the status of diabetic footwear Obesity 02/24/2023 Dyslipidemia 02/24/2023 Assessment & Plan (01/17/2025 9:05 AM EDT): - Last lipid profile in [...] working on lifestyle modifications. Assessment & Plan (07/23/2024 6:09 AM EDT): [...] use of insulin 02/11/2023 Assessment & Plan (01/17/2025 9:05 AM EDT): -Hgb A1C 9.3 % slightly [...] want to try any GLP-1 agonist. -Patient Media Consultant Outside Sales prescribed Farxiga. Patient is taking this medication on and off. -metformin was discontinued due to CKDIII and renal decline. -Eye exam: 04/09/23 per pt -Foot exam: Jul 2024 Diabetic peripheral neuropathy. -Microalbumin Test: 12/30/23 Hx microalbuminuria -Lipid profile: 12/30/23 --Follow-up in 3 months or sooner for concerning symptoms Assessment & Plan (07/23/2024 5:46 AM EDT): [...] want to try any GLP-1 agonist. -Patient Media Consultant Outside Sales prescribed Farxiga. Patient is taking this medication [...] want to try any GLP-1 agonist. -Patient Media Consultant Outside Sales prescribed Farxiga. Patient is no longer taking [...] (01/04/2024 3:42 PM EST): - followed by [facility] - no anatomical pancreatic abnormality on MRI in Dec 2022 - continue vegan / plant-based pancreatic enzyme Assessment & Plan (10/03/2023 9:49 AM EST): - followed by [facility] - no anatomical pancreatic abnormality on MRI in Dec 2022 - continue vegan / plant-based pancreatic enzyme Assessment & Plan (06/07/2023 3:30 PM EDT): - followed by [facility] - no anatomical pancreatic abnormality on MRI in Dec 2022 - continue vegan / plant-based pancreatic enzyme Assessment & Plan (02/24/2023 5:30 AM EDT): - followed by [facility] - no anatomical pancreatic abnormality on MRI in Dec 2022 - continue vegan / plant-based pancreatic enzyme Assessment & Plan (12/18/2022 6:12 PM EST): - followed by [facility] - continue vegan pancreatic enzyme Allergic rhinitis 10/12/2022 Anemia 10/12/2022 Assessment & Plan (01/17/2025 9:05 AM EDT): - likely due to chronic diseaes - Hx iron infusion Assessment & Plan (07/23/2024 5:48 AM EDT): [...] Chronic idiopathic constipation 10/12/2022 Assessment & Plan (01/17/2025 9:04 AM EDT): -Followed by [facility], last seen 08/06/22 -EGD and Colonoscopy on 12/24/21; showed Tubular Adenoma, she was recommended to repeat in 3 years. - pt has been using castor oil - continue trying fiber-rich diet and increasing physical activity as tolerated. - continue Senakot as prescribed Assessment & Plan (07/20/2024 1:50 PM EDT): -Followed by [facility], last seen 08/06/22 -EGD and Colonoscopy on 12/24/21; showed Tubular Adenoma, she was recommended to repeat in 3 years. - pt has been using castor oil - continue trying fiber-rich diet and increasing physical activity as tolerated. - continue Senakot as prescribed Assessment & Plan (01/04/2024 3:38 PM EST): -Followed by [facility], last seen 08/06/22 -EGD and Colonoscopy on 12/24/21; showed Tubular Adenoma, she was recommended to repeat in 3 years. - pt has been using castor oil - continue trying fiber-rich diet and increasing physical activity as tolerated. - continue Senakot as prescribed Assessment & Plan (06/07/2023 3:33 PM EDT): -Followed by [facility], last seen 08/06/22 -EGD and Colonoscopy on 12/24/21; showed Tubular Adenoma, she was recommended to repeat in 3 years. - pt has been using castor oil - continue trying fiber-rich diet and increasing physical activity as tolerated. - continue Senakot as prescribed Assessment & Plan (12/18/2022 6:26 PM EST): -Followed by [facility], last seen 08/06/22 -EGD and Colonoscopy on 12/24/21; showed Tubular Adenoma, she was recommended to repeat in 3 years. - pt has been using castor oil - continue trying fiber-rich diet and increasing physical activity as tolerated. - continue Senakot as prescribed Chronic kidney disease, stage III (moderate) 01/2022 Assessment & Plan (01/17/2025 9:04 AM EDT): - Media Consultant Outside Sales, Dr. Marci Hylton. - Metformin is discontinued, Dr. Tsai started bryn ib Dapagliflozin (Farxiga) - Previously on Lisinopril, but was disccontinued due to cough / K - Avoid nephrotoxic drugs, including NSAID (no more Aleve) - Renal dose meds Assessment & Plan (07/23/2024 5:41 AM EDT): - Media Consultant Outside Sales, Dr. Marci Hylton. - Metformin is discontinued, Dr. Tsai started bryn ib Dapagliflozin (Farxiga) - Previously on Lisinopril, but was disccontinued due to cough / K - Avoid nephrotoxic drugs, including NSAID (no more Aleve) - Renal dose meds Assessment & Plan (01/04/2024 3:45 PM EST): - Media Consultant Outside Sales, Dr. 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 Tsai is prescribing Dapagliflozin (Farxiga) - Previously on Lisinopril, but was disccontinued due to cough / K - Avoid nephrotoxic drugs - Renal dose meds Assessment & Plan (10/03/2023 9:41 AM EST): - Media Consultant Outside Sales, Dr. 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 Tsai rx Farxiaakash for DM management - Previously on Lisinopril, but was disccontinued due to cough / K - Avoid nephrotoxic drugs - Renal dose meds - Pt was advised that atorvastatin is not nephrotoxic and it will lower her ASCVD risk. Pt continues to decline statin therapy. Assessment & Plan (06/07/2023 3:34 PM EDT): - Media Consultant Outside Sales, Dr. 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 Tsai rx Bamxiaakash for DM management - Previously on Lisinopril, but was disccontinued due to cough / K - Avoid nephrotoxic drugs - Renal dose meds - Pt was advised that atorvastatin is not nephrotoxic and it will lower her ASCVD risk. Pt continues to decline statin therapy. - Advised to call the office for an appt Assessment & Plan (02/24/2023 5:37 AM EDT): - Media Consultant Outside Sales, Dr. Tsai - Lab: 12/24/22 BUN 28, Scr [...] & Plan (12/18/2022 6:31 PM EST): - Media Consultant Outside Sales, Dr. 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 [...] PM EST): -s/p EGD 12/24/21 -followed by [facility] -continue omeprazole 40mg daily -previously tried pantoprazole and lansoprazole; pt prefers omeprazole. -previously prescribed famotidine. Max dose for her renal function is 20 mg daily. Pt does not take it regularly. Assessment & Plan (10/03/2023 9:50 AM EST): -s/p EGD 12/24/21 -followed by [facility] -continue omeprazole 40mg daily -previously tried pantoprazole and lansoprazole; pt prefers omeprazole. -previously prescribed famotidine. Max dose for her renal function is 20 mg daily. Pt does not take it regularly. Assessment & Plan (06/07/2023 3:33 PM EDT): -s/p EGD 12/24/21 -followed by [facility] -continue omeprazole 40mg daily -previously tried pantoprazole and lansoprazole; pt prefers omeprazole. -previously prescribed famotidine. Max dose for her renal function is 20 mg daily. Pt does not take it regularly. Assessment & Plan (12/18/2022 6:28 PM EST): -s/p EGD 12/24/21 -followed by [facility] -continue prantoprazol 40mg daily -previously prescribed famotidine. Max dose for her renal function is 20 mg daily. Irritable bowel syndrome 10/12/2022 Assessment & Plan (07/20/2024 1:50 PM EDT): - followed by [facility] - continue current treatment plan per GI - low FODMAP diet - pt is prescribed simethicone, Sennakot, citrucel, but does not like taking it regularly Assessment & Plan (01/04/2024 3:42 PM EST): - followed by [facility] - continue current treatment plan per GI - low FODMAP diet - pt is prescribed simethicone, Sennakot, citrucel, but does not like taking it regularly Assessment & Plan (10/03/2023 9:49 AM EST): - followed by [facility] - continue current treatment plan per GI - low FODMAP diet - pt is prescribed simethicone, Sennakot, citrucel, but does not like taking it regularly Assessment & Plan (06/07/2023 3:32 PM EDT): - followed by [facility] - continue current treatment plan per GI - low FODMAP diet - pt is prescribed simethicone, Sennakot, citrucel, but does not like taking it regularly Assessment & Plan (12/18/2022 6:27 PM EST): - followed by [facility] - continue current treatment plan per [...] 2 diabetes mellitus 10/12/2022 Assessment & Plan (01/17/2025 11:00 PM EDT): - A1c 9.0% on 01/17/25 - A1c [...] want to try any GLP-1 agonist. -Patient Media Consultant Outside Sales prescribed Farxiga. Patient is taking this medication on and off -metformin was discontinued due to CKDIII and renal decline. -Eye exam: 04/09/23 per pt -Foot exam: Jul 2024; diabetic peripheral neuropathy -Microalbumin Test: Dec 2023 Hx microalbuminuria -Lipid profile: Dec 2023 --Follow-up in 3 months or sooner for concerning symptoms Assessment & Plan (07/23/2024 5:48 AM EDT): [...] want to try any GLP-1 agonist. -Patient Media Consultant Outside Sales prescribed Farxiga. Patient is taking this medication [...] want to try any GLP-1 agonist. -Patient Media Consultant Outside Sales prescribed Farxiga. Patient is no longer taking [...] want to try any GLP-1 agonist. -Patient Media Consultant Outside Sales prescribed Farxiga. Patient is no longer taking [...] want to try any GLP-1 agonist. -Patient Media Consultant Outside Sales prescribed Farxiga. Patient is no longer taking [...] want to try any GLP-1 agonist. -Patient Media Consultant Outside Sales prescribed Farxiga. Patient is no longer taking this medication due to side effect. -metformin was discontinued due to CKDIII and renal decline. -Eye exam: 03/29/22 -Foot exam: 10/07/22; Diabetic peripheral neuropathy. Microalbumin Test: 08/17/21 UACR 89 -Lipid profile: 08/17/21 TC 115; TG 162; HDL 46; LDL 45 on atorvastatin --Follow-up in 3 months or sooner for concerning symptoms Encounters * This document contains information received from the source organization and may not represent a complete record from that organization. Date Type Department Care Team Description 01/17/2025 11:00 AM EDT Office Visit [facility] [address] [place] [phone] Maranda Serna MD Coronary artery disease of [place] artery of [place] heart with stable angina pectoris (CMS/HCC) (Primary Dx); Stage 3b chronic kidney disease (CMS/HCC); Chronic idiopathic constipation; Type 2 diabetes mellitus with hyperglycemia, with long-term current use of insulin (CMS/HCC); Type 2 diabetes mellitus with stage 3b chronic kidney disease, with long-term current use of insulin (CMS/HCC); Dyslipidemia; Anemia due to stage 3b chronic kidney disease (CMS/[facility]) ([facility]) 01/17/2025 Travel 01/13/2025 Orders Only [facility] [place] [address] Maranda Serna MD Pulmonary nodule (Primary Dx) 01/13/2025 Telephone [facility] [place] [address] Maranda Serna MD chart prep 01/12/2025 Refill [facility] [place] [address] Yesica Naylor MD 12/23/2024 Orders Only GENERIC EXTERNAL DATA DEPARTMENT Provider, Generic External Data 12/14/2024 Refill [facility] [place] [address] Maranda Serna MD Type 2 diabetes mellitus with hyperglycemia, with long-term current use of insulin ([facility]) 12/13/2024 Refill [facility] [place] [address] Maranda Serna MD 12/08/2024 Telephone [facility] [place] [address] Maranda Serna MD Transition Of Care (Tcm) (HDF- Unscheduled THIRD LVM) 12/07/2024 Telephone [facility] [place] [address] Maranda Serna MD Hospital Follow-up 12/02/2024 Patient Outreach [facility] [place] [address] Maranda Serna MD Transition Of Care (Tcm) (HDF- Unscheduled second LVM) 12/01/2024 Patient Outreach [facility] [place] [address] Maranda Serna MD Transition Of Care (Tcm) (HDF- unscheduled LVM ) 11/27/2024 Orders Only [facility] External Provider, [facility] 11/25/2024 Telephone [facility] [place] [address] Ayse Arce MA December11/16/2024 Refill [facility] [address] [place] [address] Mahsa Acosta MD from Last 3 Months [...] Mass Index 36.27 01/17/2025 11:22 AM EDT Plan of Treatment Health Maintenance Due Date Last Done Comments CT Colonography 1960 FIT DNA/Cologuard 1960 FIT 1960 FOBT 1960 HIV Screening 1960 Sigmoidoscopy 1960 Eye Exam 1970 Hepatitis C Screening 1978 Pap Smear 1981 Cervical Cancer Screening 1990 HPV/Cotest 1990 Zoster Vaccines (1 of 2) 2010 RSV Patients and Patients Aged 60 years or older (1 - Risk 60-74 years 1-dose series) 2020 Lipid Panel 12/30/2024 12/30/2023, 12/11, 08/17/2021 Diabetes: Hemoglobin A1C 04/19/2025 025, 07/19/2024, 12/30/2023, Additional history exists Colonoscopy 07/07/2025 07/07/2022 Colorectal Cancer Screening 07/07/2025 Diabetes: Foot Exam 07/19/2025 07/19/2024 Alcohol/Substance Use Screening 01/17/2026 01/17/2025 Depression Screening 01/17/2026 01/17/2025, 01/18/20 SDOH Screening 01/17/2026 01/17/2025 Tobacco Screening 01/17/2026 01/17/2025 Mammogram 02/09/2026 02/10/2024, 08/21/2022 DTaP/Tdap/Td Vaccines (3 [...] with long-term current use of insulin ([facility]) POCT GLUCOSE Routine 01/17/2025 11:29 AM EDT Type 2 diabetes mellitus with hyperglycemia, with long-term current use of insulin ([facility]/HCC) CULTURE, URINE, ROUTINE Routine 12/23/2024 1:00 PM [...] QL NAAT Routine 11/27/2024 12:43 PM EST BI MAMMOGRAM SCREENING TOMOSYNTHESIS BILATERAL Routine 02/10/2024 2:40 PM EDT LIPID PANEL WITH REFLEX TO DIRECT LDL Routine 12/30/2023 4:50 PM EST Type 2 diabetes mellitus with hyperglycemia, with long-term current use of insulin ([facility]) Dyslipidemia HM COLONOSCOPY Routine 07/07/2022 from Last 3 Months or Most Recently Relevant to Health Maintenance Results * (ABNORMAL) POCT glycosylated hemoglobin (Hgb [...] TEST ENTER/EDIT OR DERABLES Final Result * Culture, Urine, Routine (12/23/2024 1:00 PM EST) Urine Urine specimen obtained by clean catch procedure / Unknown 12/23/2024 1:00 PM EST 12/23/2024 4:59 PM EST Comment:[facility] Narrative [facility] - 12/26/2024 7:26 AM EST Escherichia coli Quant > 100,000 cfu/mL Escherichia coli: Ampicillin 8(S) Escherichia coli: Cefazolin (Urine) 2(S) Escherichia coli: Cefepime <=0.12(S) Escherichia coli: Ceftriaxone <=0.25(S) Escherichia coli: Ciprofloxacin <=0.06(S) Escherichia coli: Gentamicin <=1(S) Escherichia coli: Nitrofurantoin <=16(S) Escherichia coli: Trimethoprim/Sulfamethoxazole <=20(S) Specimen Source: Urine clean catch us Generic External Data Provider LAB MICROBIOLOGY - GENERAL ORDERABLES Final Result [facility] [address] [place] [phone] * CT Chest w/o Contrast (11/27/2024 8:28 PM EST) Anatomical Region Laterality Modality Body, Chest Computed Tomogra phy 11/27/2024 8:28 PM EST Narrative 11/27/2024 8:30 PM EST ? [facility] ?[address] ?[place] [address] ? CT Scan Report ? Signed ? Patient: Reji,Ese ?MR#: [id number] ?? 8 ? : 1960 ?Acct:[id number] ? Age/Sex: 64 / F ?ADM Date: 11/27/24 ? Loc: HO.ED ? Attending Dr: ? Ordering Physician: Rajwinder Bhatti CNP ?? Date of Service: 11/27/24 ?? Procedure(s): CT chest wo IV con ?? Accession Number(s): [id number] ? cc: Rajwinder Bhatti CNP; Maranda Serna MD ? Report Number: ?? [id number]: Total DLP = ??543.00 mGy-cm ? CLINICAL HISTORY: cp, sob ? CT chest without contrast ? Comparison: CT - CHEST WITHOUT CONTRAST [id number] - 12/22/07 00:00 EST ? Findings: The [...] ? DD/ 27 ? TD/TT: 11/27/242027 ? Sample Collector: ? Procedure Note Donedwigeter, Image - 11/27/[address] [place] [address] [address] Scan Report Signed Patient: Ese MendozaMR#: [id number] 8 : 1960Acct:[id number] Age/Sex: 64 / FADM Date: 11/27/24 Loc: HO.ED Attending Dr: Ordering Physician: Rajwinder Bhatti CNP Date of Service: 11/27/24 Procedure(s): CT chest wo IV con Accession Number(s): [id number] cc: Rajwinder Bhatti CNP; Maranda Serna MD Report Number: [id number]: Total DLP = 543.00 mGy-cm CLINICAL HISTORY: cp, sob CT chest without contrast Comparison: CT - CHEST WITHOUT CONTRAST [id number] - 12/22/07 00:00 EST Findings: The prior [...] in OV> 11/27/242028 DD/ 27 TD/TT: 11/27/242027 Sample Collector: us [facility] External Provider IMG CT PROCEDURES Edited Result - Final * Lactic Acid (11/27/2024 5:48 PM EST) Lactic Acid 1.2 0.5 - 2.0 mmol/L [facility] 11/27/2024 5:48 PM EST 11/27/2024 5:54 PM EST us Generic External Data Provider LAB BLOOD ORDERAB LES Final Result Performing Organization Address [facility]/ZIP Co de Phone Number [facility] [address] [place] [phone] * (ABNORMAL) High Sensitivity Troponin I (11/27/2024 4:48 PM EST) Only the most recent of2 resultswithin the time period is included. TROPONIN I HIGH SENSITIVITY 743.6(HH) <3.5 - 17.0 ng/L [facility] Comment:Critical value for t est(s): TROP Results called to and readback by: VICKIE Person calling: [employer] Date: 11/27/24Time: 1716The [place] high sensitivity Troponin-I results should beused in conjunction with other diagnostic information suchas ECG, clinical observations and information, and patientsymptoms to aid in the diagnosis of OR. 11/27/2024 4:48 PM EST 11/27/2024 4:52 PM EST us Generic External Data Provider LAB BLOOD ORDERAB LES Final Result Performing Organization Address [facility] Co de Phone Number [facility] [address] [place] [phone] * (ABNORMAL) C-reactive Protein (11/27/2024 2:07 PM EST) C Reactive Protein 4.57(H) < or = 0.50 mg/dL [facility] 11/27/2024 2:07 PM EST 11/27/2024 2:10 PM EST us Generic External Data Provider LAB BLOOD ORDERAB LES Final Result Performing Organization Address City/[facility] Co de Phone Number [facility] [address] [place] [phone] * (ABNORMAL) Comprehensive Metabolic Panel (11/27/2024 2:07 PM EST) Sodium 140 135 - 145 mmol/L [facility] Potassium 4.0 3.3 - 5.1 mmol/L [facility] Chloride 108 96 - 108 mmol/L [facility] [facility] Carbon Dioxide 26 22 - 29 mmol/L [facility] Anion Gap 10(L) 12 - 20 [facility] Urea Nitrogen (BUN) 32(H) 9 - 16 mg/dL [facility] Creatinine, Serum 1.60(H) 0.5 - 1.4 mg/dL [facility] Creatinine Clr Calc Pharmacy 36.8 [facility] Comment:Provided height and weight: 157.48 cm,89.1 kg.eGFR (calculated from the MDRD study equation) and eCrCl(calculated from the Cockcroft-Gault equation) are based ondifferent parameters and may not yield comparable results.If eCrCl result is absurd, please check patient'sheight/weight. Estimated Glomerular Filt Rate 32 [facility] Comment:Chronic Kidney Disea se: Estimated GFR < 60 mL/min/1.62l2Ffctvf Kidney Disease: Estimated GFR < 15 mL/min/1.73m2 Glucose 149(H) 60 - 115 mg/dL [facility] Calcium 8.6 8.4 - 10.2 mg/dL [facility] Bilirubin, Total 0.4 0.0 - 1.0 mg/dL [facility] Aspartate Amino Transferase 22 5 - 31 U/L [facility] Alanine Aminotransferase 9 0 - 31 U/L [facility] Total Protein 6.7 6.5 - 8.0 g/dL [facility] Albumin Level 3.5 3.5 - 5.0 g/dL [facility] Alkaline Phosphatase 108 39 - 117 U/L [facility] 11/27/2024 2:07 PM EST 11/27/2024 2:10 PM EST us Generic External Data Provider LAB BLOOD ORDERAB LES Final Result [facility] [address] [place] [address] [phone] * D Dimer High Sensitivity (11/27/2024 2:06 PM EST) Pathologist [facility] D Dimer High Sensitivity 204 NG/ML [facility] Comment:D-DIMER HS REFERENCE RANGENote: Our [...] Provider LAB BLOOD ORDERAB LES Final Result [facility] [address] [place] [address] [phone] * (ABNORMAL) CBC auto differential (11/27/2024 2:06 PM EST) [facility] White Blood Count 14.0(H) 4.8 - 10.8 X10*3/uL [facility] Red Blood Count 4.15(L) 4.20 - 5.50 X10*6/uL [facility] Hemoglobin 12.0 12.0 - 16.0 g/dl [facility] Hematocrit 36.9(L) 37.0 - 47.0 % [facility] Mean Corpuscular Volume 88.9 80.0 - 98.0 fL [facility] Mean Corpuscular Hemoglobin 28.9 27.0 - 33.0 pg [facility] Mean Corpuscular HGB Conc 32.5 31.0 - 35.0 g/dl [facility] Red Cell Distribution Width 15.7 11.0 - 16.0 % [facility] Platelet Count 294 160 - 400 X10*3/uL [facility] Mean Platelet Volume 11.3 9.4 - 12.3 fL [facility] Neutrophils Percent Auto 76.2(H) 45 - 73 % [facility] Imm Gran Pct Auto 0.4 0.0 - 0.4 % [facility] Lymphocytes Percent Auto 15.8(L) 20 - 40 % [facility] Monocytes Percent Auto 6.2 2 - 11 % [facility] Eosinophils Percent Auto 1.0 0 - 4 % [facility] Basophils Percent Auto 0.4 0 - 2 % [facility] NRBC Pct Auto 0.0 0.0 - 0.2 /100WBC [facility] Neutrophils Absolute Auto 10.7(H) 2.0 - 8.3 x10*3/uL [facility] Imm Gran Abs Auto 0.06(H) 0.00 - 0.03 X10*3/uL [facility] Lymphocytes Absolute Auto 2.2 1.2 - 4.9 X10*3/uL [facility] Monocytes Absolute Auto 0.9 0.1 - 1.2 X10*3/uL [facility] Eosinophils Absolute Auto 0.1 0.0 - 0.4 X10*3/uL [facility] Basophils Absolute Auto 0.1 0.0 - 0.2 X10*3/uL [facility] NRBC Abs Auto 0.000 0.0 - 0.012 X10*3/uL [facility] 11/27/2024 2:06 PM EST 11/27/2024 2:10 PM EST us Generic External Data Provider LAB BLOOD ORDERAB LES Final Result [facility] [address] [place] [phone] * Prothrombin Time-INR (11/27/2024 2:06 PM EST) Prothrombin Time 12.1 10.9 - 12.4 SEC [facility] INTERNATIONAL NORM RATIO 1.0 0.9 - 1.1 [facility] Comment:INTERNATIONAL NORMAL IZED RATIO (INR) [...] LES Final Result Performing Organization Address [facility] de Phone Number [facility] [address] [place] [address] [phone] * (ABNORMAL) B Type Natriuretic Peptide (BNP) (11/27/2024 2:06 PM EST) B Type Natriuretic Peptide 171(H) <100 pg/mL [facility] Comment:For those patients w ho are being treated with Natrecor(nesiritide, recombinant BNP), BNP testing should beperformed at least two hours post treatment in order toensure that only endogenous levels of BNP are detected. 11/27/2024 2:06 PM EST 11/27/2024 2:10 PM EST Last Size External Data Provider LAB BLOOD ORDERAB LES Final Result Performing Organization Address [facility] de Phone Number [facility] [address] [place] [address] [phone] * XR Chest 2 Views (11/27/2024 1:35 PM EST) Anatomical Region Laterality Modality Chest Radiographic Mary ging 11/27/2024 1:35 PM EST Narrative 11/27/2024 1:37 PM EST ? [facility] ?[address] ?[place] [address] ?XRay Report ? Signed ? Patient: Reji,Ese ?MR#: [id number] ?? 8 ? : 1960 ?Acct:[id number] ? Age/Sex: 64 / F ?ADM Date: /18/25 ? Loc: HO.ED ? Attending Dr: ? Ordering Physician: Shakira Godienz ?? Date of Service: 11/27/24 ?? Procedure(s): XR chest 2V ?? Accession Number(s): [id number] ? cc: Shakira Godinez; Maranda Serna MD ? CLINICAL HISTORY: cough ? 2 view chest x-ray ? Comparison: CT - CHEST WITHOUT CONTRAST [id number] - 12/22/07 00:00 EST ? Findings: ?? [...] DD/ 1335 ? TD/TT: 11/27/24 1335 ? Sample Collector: ? Procedure Note Ezekiel, Constantin - 11/27/[address] [address] XRay Report Signed Patient: Ese MendozaMR#: [id number] 8 : 1960Acct:[id number] Age/Sex: 64 / FADM Date: 11/27/24 Loc: HO.ED Attending Dr: Ordering Physician: Shakira Godinez Date of Service: 11/27/24 Procedure(s): XR chest 2V Accession Number(s): [id number] cc: Shakira Godinez; Maranda Serna MD CLINICAL HISTORY: cough 2 view chest x-ray Comparison: CT - CHEST WITHOUT CONTRAST [id number] - 12/22/07 00:00 EST Findings: The lungs are clear. Heart size is normal. No acute fracture. IMPRESSION: 1. No acute findings. This document has been electronically signed by: Serina Nolan MD on 11/27/2024 13:35:59 Dictated By: Serina Nolan MD Signed By: <Electronically signed by Serina Nolan MD in OV> 11/27/24 1337 DD/ 1335 TD/TT: 11/27/24 1335 Sample Collector: [facility] External Provider IMG XR PROCEDURES Edited Result - Final * SARS-CoV-2 RNA, Influenza A/B, and RSV RNA, Ql NAAT (11/27/2024 12:43 PM EST) Influenza A PCR NEGATIVE Negative [facility] Influenza B PCR NEGATIVE Negative [facility] Resp Syncy Virus RNA Qual PCR NEGATIVE Negative [facility] SARS COV2 PCR NEGATIVE Negative [facility] Comment:All test results mus t [...] use by authorized laboratories.Testing performed on the [employer] GeneXpert utilizingreal-time RT-PCR.All SARS CoV2 and positive influenza A/B results arereported to [facility]. 11/27/2024 12:4 3 PM EST 11/27/2024 12:51 PM EST Generic External Data Provider LAB MICROBIOLOGY - GENERAL ORDERABLES Final Result [facility] [address] [place] [phone] * BI Mammogram Screening Tomosynthesis Bilateral (02/10/2024 2:40 PM EDT) Anatomical Region Laterality Modality Breast Bilateral Mammography 02/10/2024 2:40 PM EDT Narrative 02/22/2024 3:43 PM EDT ? [place] [facility] ? [address] ?[place] [address] ? Mammography Report ? Signed ? Patient: Reji,Ese ?MR#: [id number] ?? 8 ? : 1960 ?Acct:[id number] ? Age/Sex: 63 / F ?ADM Date: 02/10/24 ? Loc: HO.MAMMO ? Attending Dr: Maranda Serna MD ? Ordering Physician: Maranda Serna MD ?Results: 1Negative ? Date of Service: 02/10/24 ?Follow Up: 1 Year From Orig ?? inal Mammogram ? Procedure(s): MM tomosynthesis screening BI ?? Accession Number(s): [id number] ? cc: Maranda Serna MD ? EXAMINATION: [...] These include several, bilateral, ?? benign macrocalcifications publications sales representative of fat necrosis. ? MM/MM [...] 1539 ? DD/ 1440 ? TD/TT: ? Sample Collector: ? Procedure Note Donade, Image - 02/22/2024 [facility] [address] [place], [place] [address] Mammography Report Signed Patient: Ese MendozaMR#: [id number] 8 : 1960Acct:[id number] Age/Sex: 63 / FADM Date: 02/10/24 Loc: [place] Attending Dr: Maranda Serna MD Ordering Physician: Maranda Serna MDResults: 1Negative Date of Service: 02/10/24Follow Up: 1 Year From Orig inal Mammogram Procedure(s): MM tomosynthesis screening BI Accession Number(s): [id number] cc: Maranda Serna MD EXAMINATION: MM SCREENING [...] present. These include several, bilateral, benign macrocalcifications publications sales representative of fat necrosis. MM/MM tomosynthesis [...] in OV> 02/22/24 1539 DD/ 1440 TD/TT: Sample Collector: Maranda Serna MD IM BI PROCEDURES Edited Result - Final * (ABNORMAL) Lipid Panel with Reflex to Direct LDL (12/30/2023 4:50 PM EST) Triglycerides 177(H) <150 mg/dL [facility] Comment:Desirable Triglyceri de: less than 150 mg/dLBorderline High Triglyceride 150-199 mg/dLHigh Triglyceride: 200-499 mg/dLVery High Triglyceride: greater than or equal to 5OO mg/dL Cholesterol 235(H) <200 mg/dL [facility] Comment:Desirable Cholestero l: less than 200 mg/dLBorderline High Cholesterol: 200-239 mg/dLHigh Cholesterol: greater than 239 mg/dL LDL Cholesterol Calculated 151(H) <100 mg/dL [facility] Comment:Desirable LDL: less than 100 mg/dLNear Optimal/Above Optimal LDL: 110- 129 mg/dLBorderline High LDL: 130-159 mg/dLHigh LDL: 160-189 mg/dLVery High LDL: greater than or equal to 190 mg/dL HDL Cholesterol 49 >40 mg/dL [facility] Comment:Desirable HDL: great er than 40 mg/dL Note: This HDL assay may give artificially low results in patients with liver disease. Blood 12/30/2023 4:50 PM EST 12/30/2023 5:26 PM EST Maranda Serna MD LAB BLOOD ORDERABLES Final Resul t [facility] [address] [place], [place] [phone] * (ABNORMAL) Colonoscopy (07/07/2022) Colonoscopy Abnormal(A ) Normal [facility] External Provider HEALTH MAINTENANCE Final Result from Last 3 Months or Most Recently Relevant to Health Maintenance Insurance [facility] STAND[facility] Care Teams Annual Greenhouse Manager Relationship Specialty Start Date End Date Maranda Serna MD [address] [place] [phone] PCP - General Family Medicine 08/01/21
--- OUTSIDE RECORDS SUMMARY | 2025-01-19 16:31 | XMS_ITS | Encounter Summary ---
Author Organization [facility] Address [address] [facility] [address] [place] [address] Phone Care Team Providers Care Acute Dialysis Nurse Name Role Phone Maranda Serna MD Primary Care Provider [phone] Encounter Details Date Type Department Care Team (Late st Contact Info) Description 05/17/2024 Office Communication [facility] [address] [place] [address] Marci Gleason ARNP [address] [address] Social History Tobacco Use Types Packs/Day Years Used Date Smoking Tobacco: Never Smokeless Tobacco: Never Alcohol Use Standard Drinks/Week Comments Yes 0 (1 standard drink = 0.6 oz pure alcohol) Intermittently Hot Amanda. Tea with [employer] [place] only if sick Comments Unknown Sex and [...] Care Team (Late st Contact Info) Description 01/25/2025 2:45 PM EDT Office Visit [facility] [address] [facility] [address] [place] [address] Marci Gleason ARNP [address] [facility] [address] [place] [address] documented as of this encounter Visit Diagnoses Not on filedocumented in this encounter Care Teams Acute Dialysis Nurse Relationship Specialty Start Date End Date Maranda Serna MD [address] [place] [phone] PCP - General Family Medicine 08/24/21 documented as of this encounter
--- OUTSIDE RECORDS SUMMARY | 2025-01-19 16:31 | XMS_ITS | Patient Health Record ---
Author Organization [employer] Address [address] [facility] [id number] [place] [address] Care Team Providers Care General Education Professor Name Role Phone Larisa Saldana Primary Care Provider [phone] ALLERGIES Allergen (clinical drug ingredient) Drug/Non Drug [...] diabetes mellitus without complications (E11.9) Active confirmed 448006325 Problem Type 2 diabetes mellitus with diabetic polyneuropathy (E11.42) Active confirmed 77899555 Problem Other chronic pain (G89.29) Active confirmed 78059023 Problem Age-related nuclear cataract, bilateral (H25.13) Active confirmed Nuclear senile cataract (213525907) Problem Diabetes (E11.9) Active confirmed Diabe carlos mellitus without complication (911480304) Problem Dyslipidemia (E78.5) Active confirmed 637077609 Problem HTN (hypertension) (I10) Active confirmed Hypertension (30357225) Problem Arthritis (M19.90) Active confirmed 372 3001 Problem 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 use of 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 (Z79.4) Active confirmed 837839111 Problem Controlled diabetes mellitus with diabetic neuropathy (E11.40) Active confirmed Diabetic peripheral neuropathy associated with type 2 diabetes mellitus (0746117471432) Problem Type 2 diabetes mellitus with mild nonproliferative diabetic retinopathy without macular edema, bilateral (E11.3293) Active confirmed Mild nonproliferative retinopathy due to type 2 diabetes mellitus (834376315814874) Problem Left retinal detachment (H33.22) Active confirmed Serous r etinal detachment (21662144) Problem Menopausal and postmenopausal disorder (N95.9) Active confirmed 983110493 PLAN OF TREATMENT Pending Test Test Name [...] End Date MACKENZIE Hughes [address] [place] [address] [id number] Ese Mendoza Self - patient is the insured MEDICAID DENTAL [address] [place] [address] [id number] Ese Mendoza Self - patient is the [...]
--- OUTSIDE RECORDS SUMMARY | 2025-01-19 16:31 | XMS_ITS | Encounter Summary ---
Author Organization [employer] Address [address] [facility] 7[address] [place] [address] Care Team Providers Care Production Machine Operator Name Role Phone Maranda Serna MD Primary Care Provider [phone] Reason for Visit * Reason Onset Date Comments Durable Medical Equipment 05/26/2024 Encounter Details Date Type Department Care Team ([facility] st Contact Info) Description 05/26/2024 Telephone [facility]INE [address] [place], [place] [phone] Maranda Serna MD [address] [place], [place] [phone] Durable Medical Equipment Social History Tobacco Use [...] walker. Pt stated she was advised by tieing machine operator jigneshow up with orthopedic and they prescribed a walker for the pt. Pt wants script send over to [facility] [address] If any questions you can contact pt at [phone]. documented in this encounter Plan of Treatment Not on file documented as of this encounter Visit Diagnoses Not on filedocumented in this encounter Additional Health Concerns Assessment Noted Time PHQ-9 Depression Total Score: 6 10/23/20 22 10:04 AM EST documented as of this encounter Care Teams Production Machine Operator Relationship Specialty Start Date End Date Maranda Serna MD [address] [place] [address] PCP - General Family Medicine 08/01/21 documented as of this encounter
--- OUTSIDE RECORDS SUMMARY | 2025-01-19 16:31 | XMS_ITS | Clinical Summary ---
Author Organization 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 - Will obtain lab work. Also curious to see radiographic imaging of the hands, feets, SI and lumbar spine. Will obtain interval history from gate tender Karlee Le. - RTC in 4 months [...] pure alcohol) Intermittently Hot Amanda. Tea with [place] only if sick Comments Unknown Sex and [...] 09/16/2023 3:07 PM EST Plan of Treatment Upcoming Encounters Date Type Department Care Team (Late st Contact Info) Description 01/25/2025 2:45 PM EDT Office Visit [facility] [address] [facility] [address] [place] [phone] Marci Gleason ARNP [address] [address] Health Maintenance Due Date Last Done Comments Breast Cancer Screening 1960 Colorectal Cancer Screening: Annual FOBT 2009 Colorectal Cancer Screening: Colonoscopy 2009 Colorectal Cancer Screening: Sigmoidoscopy 2009 Diabetes: Ophthalmology Exam 08/24/2021 Diabetes: Pedal Pulse Checked 08/24/2021 Diabetes: Sensory Foot Exam 08/24/2021 Diabetes: Visual Foot Exam 08/24/2021 Diabetes: Hemoglobin A1C 10/18/2024 024, 12/30/2023, 12/16/2022, Additional history exists Hepatitis B Vaccine Aged Out 09/23/2023, 12/16/2022, 07/08/2022 No longer eligible based on patient's age to complete this topic Pneumococcal Vaccine: Pediatrics (0 to 5 Years) and At-Risk Patients (6 to 64 Years) Completed 09/23/2023, 01/01/2021 Influenza Vaccine Completed 08/06/2024, , 09/24/2021, Additional history exists Insurance [place]ID [place] Care Teams Editing Clerk Relationship Specialty Start Date End Date Maranda Serna MD [address] [place] [phone] PCP - General Family Medicine 08/24/21
--- OUTSIDE RECORDS SUMMARY | 2025-01-19 16:31 | XMS_ITS | Encounter Summary ---
Author Organization [employer] Address [address] [facility] 7t [place] [address] Care Team Providers Care Rivet Sticker Name Role Phone Maranda Serna MD Primary Care Provider [phone] Reason for Visit * Reason Onset Date Comments Appointment Request 05/28/2024 Encounter Details Date Type Department Care Team ([facility] st Contact Info) Description 05/28/2024 Telephone [facility] MEDICINE [address] [place], [place] [phone] Maranda Serna MD [address] [place], [place] [phone] Appointment Request Social History Tobacco Use Types [...] documented as of this encounter Care Teams Rivet Sticker Relationship Specialty Start Date End Date Maranda Serna MD [address] [place] [address] PCP - General Family Medicine 08/01/21 documented as of this encounter
== END 2025-01-19 15:05 | disposition home or self-care (01) ==
LOC: HO.HCS 13:59
PROVIDERS: PCP Family Medicine
DX: Z98.890 Other specified postprocedural states (principal); R07.9 Chest pain, unspecified; E11.9 Type 2 diabetes mellitus without complications
CPT/HCPCS: 93010; 99214

== ENCOUNTER → 2025-01-19 13:58 | Outpatient (BNVA) | payer MEDICAID, SELFPAY | PROVIDERS: PCP Family Medicine | DX: R07.9 Chest pain, unspecified (principal); E11.9 Type 2 diabetes mellitus without complications; Z98.890 Other specified postprocedural states; Z79.4 Long term (current) use of insulin; R94.31 Abnormal electrocardiogram [ECG] [EKG]; R00.0 Tachycardia, unspecified | CPT/HCPCS: 93005; 99212 ==

== ENCOUNTER 2025-02-09 15:09 | Outpatient (AMB) | payer MEDICAID, SELFPAY ==
--- NOTE | 2025-02-09 14:11 | A.OFFVIS_ITS ---
Intake Visit Reasons: 2 1/2 week follow up Intake Note: Pt presents to the office today for a follow up. Pt states she is doing well. PVR:0mL Allergies Pork/Porcine Containing Products [Pork/Porcine Product Derivatives] Allergy (Mild, Verified 02/09/25 15:02) SORES /ITCHING Seasonal Allergies Allergy (Mild, Verified 02/09/25 15:02) Itching nickel Adverse Reaction (Verified 02/09/25 15:02) Swelling and irritation Medication List - Last Reconciled 02/09/25 by Alyce Rangel MD acetaminophen (Tylenol Extra Strength) 500 mg PO Q6H PRN ammonium lactate 12% 1 appl topical DAILY ascorbic acid (vitamin C) 1,000 mg PO DAILY aspirin (St Vladimir Aspirin) 81 mg PO DAILY atorvastatin 80 mg PO DAILY blood pressure monitor As directed carvedilol 6.25 mg See Protocol PO BID clopidogrel 75 mg PO DAILY dapagliflozin propanediol (Farxiga) 5 mg PO DAILY digestive enzymes 1 cap PO BID diphenhydramine-acetaminophen 25-500 mg (Tylenol PM Extra Strength) 1 tab PO BEDTIME PRN ferrous sulfate (Iron (ferrous sulfate)) PO .qod fesoterodine ER (Toviaz) 8 mg PO DAILY fluticasone propionate 50 mcg/actuation 1 spray intranasal DAILY PRN incontinence pad, liner, disp As directed: change pads Q2-3 hours/PRN insulin degludec (Tresiba FlexTouch U-100 insulin) 35 units subcut BEDTIME PRN insulin lispro 45 units subcut USEASDIRECTD isosorbide mononitrate ER 30 mg PO DAILY levalbuterol HCl 1.25 mg (3 mL) inhalation Q4H PRN nitroglycerin (Nitrostat) 0.4 mg sublingual Q5MX3 PRN omega 7-txz-snw-fish oil 1,000 (120-180) mg (Fish Oil) 1 cap PO DAILY omeprazole 40 mg PO DAILY pen needle, diabetic (Easy Touch) As directed prednisolone acetate 1% (Pred Forte) 1 drp ophthalmic-Left QID vitamin B complex 1 tab PO DAILY HPI Comments Details: 02/09/25--64-year-old female presenting with overactive bladder. Her symptoms of frequent urination and urgency have persisted, and she has a history of recurrent urinary tract infections, with the last instance treated in December. Current urinalysis is unremarkable. Despite trialing oxybutynin and Mirabegron, significant improvement was not noted. The patient has been using Farxiga alongside other diabetic medications, resulting in better overall symptom control. She experiences nocturia, voiding 4-5 times nightly, requiring pad usage for frequent and urgent urinary incontinence. Aspirin sensitivity required a medication change, resulting in symptom stabilization. Urinary Symptoms Review - Frequent urination and urgency - Episodes of nocturia occurring 4-5 times nightly - Use of pads due to frequency and urgency incontinence - Previous treatments with oxybutynin and Mirabegron were ineffective - Ceased use of cranberry supplements - Improved control since discontinuing previous treatments Results - Laboratories: Current urinalysis negative for infection, leukocytes, and nitrites. Discussion Notes During the discussion, the patient's symptoms of overactive bladder and recurrent UTIs were reviewed. I explained the potential benefits and risks of adjusting her medication regimen to improve bladder control. No new medication was initiated today due to past ineffective responses to oxybutynin and Mirabegron, but I advised considering the potential efficacy of trying another alternative. Overactive bladder treatment effectiveness, insurance coverage concerns, and patient preferences (tablet form devoid of certain fillers) were discussed. Follow-up via phone in a month's time was planned to assess symptom status after medication adjustments have taken effect. The patient expressed un derstanding and agreement with the proposed plan to continue monitoring the efficacy of her current diabetic and heart medication adjustments, with particular attention to bladder symptoms. She was reminded to contact us should there be an issue with any medication, particularly regarding potential filler substances. Ongoing management aims to optimize her current symptoms while addressing her diabetic condition stability. 12/23/24-- LV -03/22/24--Ese is a 64-year-old female who presents today to the office for a follow up on lower urinary tract symptoms of recurrent urinary tract infections and overactive bladder. She is on Farxiga for diabetes. States she ran out of vaginal estrogen cream. I have discussed that I will discontinue estrace cream Failed Oxybutynin. Continues with urge incontinence. Incontinence pads p.r.n., Diabetes comorbidity. Trial of Myrbetriq 50 mg daily. UA-3+Glucose, Nitrite positve. Pt denies dysuria. I will wait for urine culture results before starting abx. 06/23/2023?She was last seen by me on 03/05/2023 for lower urinary tract infections and overactive bladder. At that time urinalysis noted nitrate positive urine. She was started on Augmentin. She was also started on Oxybutynin 5 mg daily. 03/05/23--Urine culture showed >100,000 mixed abdi. She states that she is wearing pads during the day. She states she is not using the oxybutynin. Evaluation today UA: leukocytes: trace; blood: negative; nitrate: negative. 03/05/2023?LV?09/20/22-- Ese is a 61-year-old female who is here for follow- up for overactive bladder symptoms and renal cyst.? Comorbidity diabetes.? The patient is a nonsmoker, having never smoked.? She denies constipation she denies dysuria. The? patient reports that she is drinking 3-4 8 oz bottles of water on a daily basis.? She had previously been trialed on oxybutynin but she does not want to take this medication or any other medication right now. Patient reports that she does have urinary incontinence she is wearing a pad on a daily basis she is up 3-6 times at night to void but does remain dry at night. On evaluation today-Urinalysis in the office today no signs of infection, Bladder scan PVR 100 mL. Discussed behaviorial modification, timed voiding every 2-3 hrs, kegel exercises.? I have discussed renal ultrasound results, 08/14/2022 small right renal cyst consistent with simple cyst. 03/05/23-- The patient states increased urinary incontinence. The patient wants to go back on oxybutynin. Complains of dysuria, denies gross hematuria, nocturia 2-3 x Co-morbidity: Insulin dependent diabetes. Evaluation today: Nitrite: positive, blood: negative, leukocytes: negative. Plan: oxybutynin 5 mg. Urine for culture was ordered. Augmentin 500 mg twice a day for 7 days. Follow-up after 3 months. [facility] Medical History Pancreatic insufficiency Pancreatic insufficiency Tubular adenoma CKD (chronic kidney disease) Anemia GERD (gastroesophageal reflux disease) Renal cyst Bladder prolapse, female, acquired Hx of gastric ulcer IBS (irritable bowel syndrome) Kidney stones High cholesterol Diabetes Surgical History Hx of endoscopy Hx of colonoscopy History of partial hysterectomy Hx of breast reduction, elective Hx of cholecystectomy Family History Father Heart attack DM2 (diabetes mellitus, type 2) Mother DM2 (diabetes mellitus, type 2) COPD (chronic obstructive pulmonary disease) Other No pertinent family history Social History Household Members: Family Housing: House Do you presently have visiting nurse or other home services: No Unable to assess alcohol history related to: Unknown Alcohol intake: never Patient Tobacco Use Status: Never used Tobacco Second Hand Smoke Exposure: No service: No Office Procedures Post Void Residual Post Residual Void Post Void Residual (PVR): 0 71359-Ciyl Void Residual by ultrasound Results AMB Urinalysis, Automated UA Leukoctes 0 Tara/uL Last Edit by Lilibeth Smith CMA on 02/09/25 15:23 UA Nitrite Negative Last Edit by Lilibeth Smith CMA on 02/09/25 15:23 UA Urobilinogen 0.2 mg/dL Last Edit by Lilibeth Smith CMA on 02/09/25 15:23 UA Protein 0 mg/dL Last Edit by Lilibeth Smith CMA on 02/09/25 15:23 UA pH 6.0 Last Edit by Lilibeth Smith CMA on 02/09/25 15:23 UA Blood 0 Amadeo/uL Last Edit by Lilibeth Smith CMA on 02/09/25 15:23 UA Specific Lyndon 1.010 Last Edit by Lilibeth Smith CMA on 02/09/25 15:23 UA Ketone Negative Last Edit by Lilibeth Smith CMA on 02/09/25 15:23 UA Bilirubin 0 mg/dL Last Edit by Lilibeth Smith CMA on 02/09/25 15:23 UA Glucose 1000 mg/dL Last Edit by Lilibeth Smith CMA on 02/09/25 15:23 Results Reviewed Results Reviewed: Laboratory Last Values Urine pH (Auto) 6.0 02/09/25 15:12 Specific Lyndon (Auto) 1.010 02/09/25 15:12 Urine Protein (Auto) 0 mg/dL 02/09/25 15:12 Glucose (UA)(Auto) 1000 mg/dL 02/09/25 15:12 Urine Ketones (Auto) Negative 02/09/25 15:12 Urine Blood (Auto) 0 Amadeo/uL 02/09/25 15:12 Urine Nitrite (Auto) Negative 02/09/25 15:12 Urine Bilirubin (Auto) 0 mg/dL 02/09/25 15:12 Urine Urobilinogen (Auto) 0.2 mg/dL 02/09/25 15:12 Leukocyte Esterase (Auto) 0 Tara/uL 02/09/25 15:12 Assessment & Plan Assessment & Plan Orders: Orders AMB Urinalysis Automated Today Z13.9 - Encounter for screening, unspecified AMB Post Void Residual by ultrasound Today R32 - Unspecified urinary incontinence Medications: New fesoterodine ER (Toviaz) 8 mg PO DAILY 30 tabs 4RF Coding CPT Codes Post Residual Void - PVR CPT Code: 20442-Uxny Void Residual by ultrasound ([id number])
--- OUTSIDE RECORDS SUMMARY | 2025-02-09 17:35 | XMS_ITS | Clinical Summary ---
Author Organization [facility] Address [address] [place] [address] Care Team Providers Care Field Representative Name Role Phone Viet Sánchez Unavailable [phone] Viet Sánchez Primary Care Provider [phone] Allergies Active Allergy Reactions Criticality Noted Date [...] Active Problems Problem Noted Date Diagnosed Date detention current use of insulin 11/22/2019 Diabetic peripheral [...] this topic Medical Devices Implanted Type Area Glass Laminating Operator Device Identifier Shelf Expiration Date Model / Serial / Lot [id number].[id number] Lens Iol 0 D +21.5 Brianda Mod L Bcnvx 13mm 6mm Posterior - [id number] Implanted:Qty: 1 on 01/27/2020 by Obinna Lorenzana MD at [facility] [place] Lens [employer] [id number] .[id number] / [id number] / Procedures Procedure Name Priority Date/Time Associated [...] 12:01 PM 01/27/2020 12:06 PM Care Teams Field Representative Relationship Specialty Start Date End Date Viet Sánchez PA [address] [place] [address] PCP - General 06/18/18 Viet Sánchez PA [address] [place] [address] 06/18/18
--- OUTSIDE RECORDS SUMMARY | 2025-02-09 17:35 | XMS_ITS | Encounter Summary ---
Author Organization [facility] Address [address] [place] [address] Care Team Providers Care Telegraph Repeater Technician Name Role Phone Viet Sánchez Unavailable [phone] Viet Sánchez Primary Care Provider [phone] Encounter Details Date Type Department Care Team (Late st Contact Info) Description 08/06/[address] [facility] Urologic Surgery [place] [address] [place] [address] Provider, MD Sheryl [address] [place] [address] Social History Tobacco Use Types Packs/Day Years [...] on filedocumented in this encounter Care Teams Telegraph Repeater Technician Relationship Specialty Start Date End Date Viet Sánchez PA [address] [place] [address] PCP - General 06/18/18 Viet Sánchez PA [address] [place] [address] 06/18/18 documented as of this encounter
--- OUTSIDE RECORDS SUMMARY | 2025-02-09 17:35 | XMS_ITS | Encounter Summary ---
Author Organization [employer] Address [address] [place] [address] Care Team Providers Care Foundry Molder Name Role Phone Maranda Serna MD Primary Care Provider [phone] Encounter Details Date Type Department Care Team ([facility] st Contact Info) Description 02/09/2025 Telephone [facility] MEDICINE [address] [place], [place] [phone] Maranda Serna MD [address] [place], [place] [phone] Social History Tobacco Use Types Packs/Day Years [...] encounter Miscellaneous Notes * Telephone Encounter - Maranda Serna MD - 02/09/2025 1:32 PM EDT ----- Message from Maranda Serna MD sent at 11/30/2024 12:17 PM EST ----- Regarding: Chest CT Pulmonary nodule on 11/27/24. Needs 3 mo follow up. documented in this encounter Plan of Treatment Not on file documented as of this encounter Visit Diagnoses Not on filedocumented in this encounter Additional Health Concerns Assessment Noted Time PHQ-9 Depression Total Score: 0 01/18/20 25 1:12 PM EDT documented as of this encounter Care Teams Foundry Molder Relationship Specialty Start Date End Date Maranda Serna MD [address] [place] [address] PCP - General Family Medicine 08/01/21 documented as of this encounter
--- OUTSIDE RECORDS SUMMARY | 2025-02-09 17:35 | XMS_ITS | Encounter Summary ---
Author Organization [facility] Address [address] [place] [address] Care Team Providers Care Machining Department Supervisor Name Role Phone Viet Sánchez Unavailable [phone] Viet Sánchez Primary Care Provider [phone] Encounter Details Date Type Department Care Team (Late st Contact Info) Description 02/02/2020 Prep for Surgery OPHTHALMOLOGY [address] [place] [address] Holland Hunt MD [address] [facility] [address] [facility] [place] [phone] Social History Tobacco Use Types Packs/Day Years [...] on filedocumented in this encounter Care Teams Machining Department Supervisor Relationship Specialty Start Date End Date Viet Sánchez PA [address] [place] [address] PCP - General 06/18/18 Viet Sánchez PA [address] [place] [address] 06/18/18 documented as of this encounter
--- OUTSIDE RECORDS SUMMARY | 2025-02-09 17:35 | XMS_ITS | Encounter Summary ---
Author Organization [employer] Address [address] [facility] [address] [place] [address] Care Team Providers Care Railroad Operating Engineer Name Role Phone Maranda Serna MD Primary Care Provider [phone] Reason for Referral * Consultation (Routine) - Pending Review Specialty Diagnoses / Procedures Referred By Rodney hussein Referred To Contact Pulmonary Disease Diagnoses Pulmonary nodule Maranda Serna MD [address] [place] [address] Phone: tel: fax: Referral ID Status Reason Start Date Expiration Date Visits Requested Visits Authorized [id number] Pending Review Specialty Services Required 02/09/2025 02/09/2026 1 1 Encounter Details Date Type Department Care Team (Late st Contact Info) Description 02/09/2025 Telephone [facility] MEDICINE [address] [place] [phone] Maranda Serna MD [address] [place], [place] [phone] Social History Tobacco Use Types Packs/Day Years [...] your housing situation today? I have tristen sing 01/17/[address] you li [...] Encounter - Maranda Serna MD - 02/09/2025 1:37 PM EDT Called patient regarding to 3-mo follow up CT scan. Patient states she has been waiting for an appointment with access manager because someone recommended. There is no record in our EHR. We agreed to start a referral, but if her next CT is normal, we can cancel the appointment since she does not have any respiratory problem. documented in this encounter Plan of Treatment Scheduled Referrals Name Type Priority Associated Diagnoses Order Schedule Referral to Pulmonology Outpatient Referral Routine Pulmonary nodule Expected: 02/09/2025 (Approximate), Expires: 02/09/2026 documented as of this encounter Visit Diagnoses Diagnosis Pulmonary nodule- Primary Other diseases of lung, not elsewhere classified documented in this encounter Additional Health Concerns Assessment Noted Time PHQ-9 Depression Total Score: 0 01/18/20 25 1:12 PM EDT documented as of this encounter Care Teams Railroad Operating Engineer Relationship Specialty Start Date End Date Maranad Serna MD [address] [place] [address] PCP - General Family Medicine 08/01/21 documented as of this encounter
--- OUTSIDE RECORDS SUMMARY | 2025-02-09 17:35 | XMS_ITS | Encounter Summary ---
Author Organization [facility] Address [address] [place] [address] Care Team Providers Care Glassware Maker Demonstrator Name Role Phone Viet Sánchez Unavailable [phone] Viet Sánchez Primary Care Provider [phone] Encounter Details Date Type Department Care Team (Late st Contact Info) Description 07/07/2018 Scanned Document [facility] Urologic Surgery [place] [address] [place] [address] Provider, Sheryl, [address] [place] [address] Social History Tobacco Use Types Packs/Day Years [...] on filedocumented in this encounter Care Teams Glassware Maker Demonstrator Relationship Specialty Start Date End Date Viet Sánchez PA [address] [place] [address] PCP - General 06/18/18 Viet Sánchez PA [address] [place] [address] 06/18/18 documented as of this encounter
--- OUTSIDE RECORDS SUMMARY | 2025-02-09 17:35 | XMS_ITS | Data Portability ---
Author Organization [place] [facility] Address [address] [address] Assessment No assessment recorded. Plan of Treatment Reminders Order Date Submit Date Provider Last Modified By Organization Details Last Modified Time Details Appointments Test Results 2024 04:00P M GENARO Barrett MD Not available Not available Not available Lab None recorded. Referral None recorded. Procedures None recorded. Surgeries None recorded. Imaging CT, neck, soft tissue, w/ contrast - evaluate lingual tonsil hyperophy 2023 024 [facility], [address] [place] [address], [address], 07/01/2024 12:06:24 [place], modified barium swallow study 2023 024 [facility] Rad[facility], [address] [place] [address], [address], 07/29/2024 15:47:26 Medication Orders None recorded. Patient TargetsNo targets recorded. Patient InstructionsNo instructions recorded. Reason for Referral None Reported. Results Created Date Observation Date Name Description Value Unit Range Abnormal Flag Note LastModifiedBy Organization Detail LastModifiedTime 07/29/2007/29/2024 [place], modif ied izaiah mccabe ow study No observ ation [facility] [address], [place], [address], 08/02/2024 14:43:11 09/28/20 24 09/25/2024 MRI, head + neck + orbit s, w/wo contr ast [facility] te [facility] Access ion Number : [id number] Patien t Name: Ese Mendoza Record Number : [id number] Date of : 1959 Date of Exam: 2023 Referr daniel Physic oliver: Vineet nicholas, Gen[facility] [place] [address] [place] [address] Exam: MR Orbits , Face, Neck (C-/C+ ) CPT 30016 Room Descri ption: [place] GE Pion 3T MRI of the soft [...] Electr onical ly Signed By: Vikram mike [facility] [address], [place], [address], 10/01/2024 16:52:47 Result Notes None recorded. 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 Procedures Surgical History Date Name Laterality Status Provider Name and Address Organization Details Recorded Time 07/01/2024 FFL_RE completed GENARO PELAEZ MD [address] [address], [place], [address], [facility] 07/01/2024 12:01:28 Imaging Results Imaging Date Name Status LastModified by Organiz ation Details LastModified Time 07/29/2024 [place], modified barium swallow study completed [facility] [address] [address], [place], [address], 08/02/2024 14:43:11 09/25/2024 MRI, head + neck + orbits, w/wo contrast completed [facility] [address] [facility] [place], [address], 10/01/2024 16:52:47 Procedure Notes None recorded. Medical Equipment None Reported. Allergies Allergen ID Allergen Name Allergen Category Reaction Reaction Severity Criticality Documentation Date Start Date Code Code System Note Provider Name and Address Organization Details Recorded Time 531428 rubber, unspecifi ed environme nt,medica tion Not available Not available Not available 07/01/2024 19145 5 UNK Ashu quesada [place] - [facility] 4 11:45:16 241078 pork allergeni c extract food,medi cation Not available Not available Not available 07/01/2024 59710 8 RxNorm Ashu quesada [place] - [facility] 4 11:45:41 Medications Name Sig Start Date [...] Available Not Available No t Available FreeStyle [place] Lite kit USE DIRECTED TO TEST BLOOD [...] Available No t Available FreeStyle Doug [address] [place] USE DIRECTED active Not Available Not Available No t Available Vitals Date Recorded Body height Body mass index (BMI) Body weight Provider Name and Address Organization Details Last Updated DateTime 07/01/2024 157.48 cm 38.4 kg/m2 17509.4 g Ashu Ramírez [facility] 07/01/2024 11:54:39 Social History None recorded. Functional Status None recorded. Mental Status None recorded. Family History Nothing Reported. Medical History No medical history recorded. Gynecological HistoryNo gynecological history recorded. Obstetrics History GPAL:G 0 P 0 0 0 0 Past Encounters Encounter ID Performer Location Encounter Start Date Encounter Closed Date Diagnosis/Indication Diagnosis SNOMED-CT Code Diagnosis ICD10 Code Diagnosis Note [id number] GENARO PELAEZ MD [facility] [address] [place] [address] 07/01/2024 11:04:43 07/01/2024 12:01:09 Oropharyngeal dysphagia 55976475 R13.12 I recommend an MBS to better evaluate. Benign joy plasm of oropharynx 21208818 D10.5 she has symmetric lingual tonsil hypertroph y on laryngosoc py. I will evaluate with a contrasted CT to make sure there are no tumors. Dysphagia 37918744 R13.1 0 see above Health Concerns Section Related Observation LastModified by Organization Detai ls LastModified Time None Recorded Concern Status LastModified by Organization Details LastModified Time None Recorded Advance Directives Directive None Recorded Payers Encounter Date Sequence Insurance Name Policy Number Policy Singer Covered Member ID Singer Member ID Guarantor Name 07/01/2024 1 [place] [facility] Ese Mendoza [id number] Ese Mendoza Notes Date Note Type Note [...] Takes omeprazole for GERD. GENARO PELAEZ MD [address] [place] [address], [address], [place] - [facility] 07/01/2024 12:04:21 OBGyn Episode No OBEpisode recorded.
--- OUTSIDE RECORDS SUMMARY | 2025-02-09 17:35 | XMS_ITS | Encounter Summary ---
Author Organization [employer] Address [address] [facility] [address] [place] [address] Care Team Providers Care Mutual Fund Accountant Name Role Phone Maranda Serna MD Primary Care Provider [phone] Encounter Details Date Type Department Care Team ([facility] st Contact Info) Description 01/13/2025 Orders Only [facility] MEDICINE [address] [place] [address] Maranda Serna MD [address] [place], [place] [phone] Pulmonary nodule (Primary Dx) Social History Tobacco [...] documented as of this encounter Care Teams Mutual Fund Accountant Relationship Specialty Start Date End Date Maranda Serna MD [address] [place] [address] PCP - General Family Medicine 08/01/21 documented as of this encounter
--- OUTSIDE RECORDS SUMMARY | 2025-02-09 17:35 | XMS_ITS | Encounter Summary ---
Author Organization [employer] Address [address] 7[address] [place] [address] Care Team Providers Care Supervisor Printing Shop Name Role Phone Maranda Serna MD Primary Care Provider [phone] Encounter Details Date Type Department Care Team ([facility] st Contact Info) Description 01/28/2025 Orders Only [facility] MEDICINE [address] [place], [place] [phone] Maranda Serna MD [address] [place], [place] [phone] Type 2 diabetes mellitus with hyperglycemia, with long-term current use of insulin ([facility]) Social History Tobacco Use Types Packs/Day [...] hyperglycemia, with long-term current use of insulin ([facility]) documented in this encounter Additional Health Concerns Assessment Noted Time PHQ-9 Depression Total Score: 0 01/18/20 25 1:12 PM EDT documented as of this encounter Care Teams Supervisor Printing Shop Relationship Specialty Start Date End Date Maranda Serna MD [address] [place] [address] PCP - General Family Medicine 08/01/21 documented as of this encounter
--- OUTSIDE RECORDS SUMMARY | 2025-02-09 17:35 | XMS_ITS | Encounter Summary ---
Author Organization [facility] Address [address] [place] [address] Care Team Providers Care Rubber And Plastics Worker Name Role Phone Viet Sánchez Unavailable [phone] Viet Sánchez Primary Care Provider Encounter Details Date Type Department Care Team (Late st Contact Info) Description 11/09/2019 Prep for Surgery OPHTHALMOLOGY [address] [place] [address] Holland Hunt MD [address] [facility] [address] [address] Social History Tobacco Use Types Packs/Day Years [...] on filedocumented in this encounter Care Teams Rubber And Plastics Worker Relationship Specialty Start Date End Date Viet Sánchez PA [address] [place] [address] PCP - General 06/18/18 Viet Sánchez PA [address] [place] [address] 06/18/18 documented as of this encounter
--- OUTSIDE RECORDS SUMMARY | 2025-02-09 17:35 | XMS_ITS | Encounter Summary ---
Author Organization [facility] Address [address] [place] [address] Care Team Providers Care Personnel Records Clerk Name Role Phone Viet Sánchez Unavailable [phone] Viet Sánchez Primary Care Provider [phone] Encounter Details Date Type Department Care Team (Late st Contact Info) Description 02/18/2020 Scanned Document [facility] [address] [place] [address] [phone] Provider, Sheryl, [address] [place] [address] Social History Tobacco Use Types Packs/Day Years [...] on filedocumented in this encounter Care Teams Personnel Records Clerk Relationship Specialty Start Date End Date Viet Sánchez PA [address] [place] [address] PCP - General 06/18/18 Viet Sánchez PA [address] [place] [address] 06/18/18 documented as of this encounter
--- OUTSIDE RECORDS SUMMARY | 2025-02-09 17:35 | XMS_ITS | Clinical Summary ---
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 - Will obtain lab work. Also curious to see radiographic imaging of the hands, feets, SI and lumbar spine. Will obtain interval history from clay carman Karlee Le. - RTC in 4 months [...] 1981 Cervical Cancer Screening 1990 HPV/Cotest 1990 Pneumococcal Vaccine, 50+ Years (1 of 1 - PCV) 2010 Zoster Vaccines (1 of 2) 2010 COVID-19 Vaccine (1 - 2023-2 5 season) 2024 Influenza Vaccine (Season Ended) 2025 HIV Screening Completed 10/06/2018 Diabetes: Hemoglobin A1C [...] polyneuropathy, with long-term current use of insulin ([facility]) POCT HEMOGLOBIN, A1C Routine 02/09/2019 8:10 AM EDT Type 2 diabetes mellitus with diabetic polyneuropathy, with long-term current use of insulin ([facility]) HIV COMBO ANTIGEN/ANTIBODY Routine 10/06/2018 3:59 PM EST Polyarthralgia from Last 3 Months or Most Recently Relevant to Health Maintenance Results * Microalbumin/creatinine ratio (02/09/2019 10:15 AM EDT) Microalbumin/Creat Ratio 20 2 - 20 mg/g Creat 02/09/2019 11:55 AM EDT [facility] Creatinine, Urine, Random 101 mg/dL 02/09/2019 11:55 AM EDT [facility] Comment: The laboratory does not have established reference ranges for this test. Interpretation of results is at the discretion of the ordering physician. Urine specimen (specimen) Urine specimen obtained by clean catch procedure / Unknown Non-blood Collection / Unknown 02/09/2019 10:15 AM EDT 02/09/2019 10:15 AM EDT us Keke Katz APRN LAB URINE ORDERABLES Final Res ult [facility] [address] [place] [address], [place] [phone] * POCT hemoglobin, A1c (02/09/2019 8:10 AM EDT) POCT Hemoglobin A1C 9.2 4.4 - 6.4 % Blood specimen (specimen) 02/09/2019 8:10 AM EDT us Keke Katz PARTY PLAN SALES AGENT POCT ORDERABLES NO CHARGE Machelle l Result * HIV combo antigen/antibody (10/06/2018 3:59 PM EST) HIV Combo AB/AG Negative Negative 10/06/2018 6:02 PM EST [facility] Blood specimen (specimen) Venous blood specimen / Unknown Venipuncture / Unknown 10/06/2018 3:59 PM EST 10/06/2018 3:59 PM EST Narrative [facility] - 10/06/2018 6:02 PM EST This test is a 4th generation HIV Antigen-Antibody Combination assay, using a chemiluminescent microparticle immunoassay, for the simultaneous qualitative detection of human immuno- deficiency virus (HIV) p24 antigen and antibodies to HIV type 1 (HIV-1) and/or HIV type 2 (HIV-2) in human serum or plasma. The [employer] HIV Ag/Ab Combo assay is intended to [...] BLOOD ORDERABLES NO ST AT Final Result [facility] [address] [place] [address], [place] [phone] from Last 3 Months or Most Recently Relevant to Health Maintenance Insurance MEDICAID [place] D Care Teams Registered Dietitian Relationship Specialty Start Date End Date Viet Sánchez PA [address] [place] [address] PCP - General Family Medicine 07/22/18
--- OUTSIDE RECORDS SUMMARY | 2025-02-09 17:35 | XMS_ITS | Encounter Summary ---
Author Organization [facility] Address [address] [address] Phone Care Team Providers Care Nutrition Club Ambassador Name Role Phone Maranda Serna MD Primary Care Provider [phone] Encounter Details Date Type Department Care Team (Late st Contact Info) Description 01/25/2025 Office Communication [facility] [address] [place] [phone] Marci Gleason ARNP [address] [address] Social History Tobacco Use Types Packs/Day Years Used Date Smoking Tobacco: Never Smokeless Tobacco: Never Alcohol Use Standard Drinks/Week Comments Yes 0 (1 standard drink = 0.6 oz pure alcohol) Intermittently Hot Amanda. Tea with [place] only if sick Comments Unknown Sex and Gender Information Value Date Recorded Sex Assigned at Not on file Legal Sex Female 5:18 PM EST Gender Identity Not on file Sexual Orientation Not on file documented as of this encounter Plan of Treatment Upcoming Encounters Date Type Department Care Team (Late st Contact Info) Description 07/26/2025 2:00 PM EDT Office Visit [facility] [address] [address] Marci Gleason ARNP [address] [address] documented as of this encounter Visit Diagnoses Not on filedocumented in this encounter Care Teams Nutrition Club Ambassador Relationship Specialty Start Date End Date Maranda Serna MD [address] [place] [address] PCP - General Family Medicine 08/24/21 documented as of this encounter
--- OUTSIDE RECORDS SUMMARY | 2025-02-09 17:35 | XMS_ITS | Encounter Summary ---
Author Organization [employer] Address [address] [facility] 7t [place] [address] Care Team Providers Care Veterinary Nurse Name Role Phone Maranda Serna MD Primary Care Provider [phone] Reason for Visit * Reason Onset Date Comments Hospital Follow-up 12/07/2024 Encounter Details Date Type Department Care Team ([facility] Contact Info) Description 12/07/2024 Telephone [facility] MEDICINE [address] [place], [place] [phone] Maranda Serna MD [address] [place], [place] [phone] Hospital Follow-up Social History Tobacco Use Types [...] follow up. Pt requested a call back. [phone] (Pt Contact) documented in this encounter Plan of Treatment Not on file documented as of this encounter Visit Diagnoses Not on filedocumented in this encounter Additional Health Concerns Assessment Noted Time PHQ-9 Depression Total Score: 6 10/23/20 10:04 AM EST documented as of this encounter Care Teams Veterinary Nurse Relationship Specialty Start Date End Date Maranda Serna MD [address] [place] [address] PCP - General Family Medicine 08/01/21 documented as of this encounter
--- OUTSIDE RECORDS SUMMARY | 2025-02-09 17:35 | XMS_ITS | Encounter Summary ---
Author Organization [employer] Address [address] [facility] 7t [place] [address] Care Team Providers Care Lapel Padder Name Role Phone Maranda Serna MD Primary Care Provider [phone] Reason for Visit * Reason Comments Med Refill Encounter Details Date Type Department Care Team (Late st Contact Info) Description 01/12/[address] [facility] MEDICINE [address] [place], [place] [phone] Yesica Naylor MD [address] [place] [address] Social History Tobacco Use Types Packs/Day Years [...] documented as of this encounter Care Teams Lapel Padder Relationship Specialty Start Date End Date Maranda Serna MD [address] [place] [address] PCP - General Family Medicine 08/01/21 documented as of this encounter
--- OUTSIDE RECORDS SUMMARY | 2025-02-09 17:35 | XMS_ITS | Encounter Summary ---
Author Organization [employer] Address [address] [facility] 7t [place] [address] Care Team Providers Care National Business Director Name Role Phone Maranda Serna MD Primary Care Provider [phone] Encounter Details Date Type Department Care Team (Late st Contact Info) Description 04/22/2023 Orders Only [facility] MEDICINE [address] [place] [address] Maranda Serna MD [address] [place] [address] Left foot pain (Primary Dx); Type 2 diabetes mellitus with hyperglycemia, with long-term current use of insulin ([facility]) Social History Tobacco Use Types Packs/Day Years [...] hyperglycemia, with long-term current use of insulin ([facility]) documented in this encounter Additional Health Concerns Assessment Noted Time PHQ-9 Depression Total Score: 6 10/23/20 22 10:04 AM EST documented as of this encounter Care Teams National Business Director Relationship Specialty Start Date End Date Maranda Serna MD [address] [place] [address] PCP - General Family Medicine 08/01/21 documented as of this encounter
--- OUTSIDE RECORDS SUMMARY | 2025-02-09 17:35 | XMS_ITS | Clinical Summary ---
Author Organization [facility] Address [address] [place] [address] Care Team Providers Care Diesel Mechanic Helper Name Role Phone ChapispriscillaViet Primary Care Provider [phone] Allergies Active Allergy Reactions Criticality Noted Date [...] age to complete this topic Care Teams Diesel Mechanic Helper Relationship Specialty Start Date End Date Viet Sánchez [address] [place] [address] PCP - General Medical Services 06/19/18
--- OUTSIDE RECORDS SUMMARY | 2025-02-09 17:35 | XMS_ITS | Encounter Summary ---
Author Organization [facility] Address [address] [place] [address] Care Team Providers Care Gatehouse Attendant Name Role Phone Viet Sánchez Unavailable [phone] Viet Sánchez Primary Care Provider [phone] Encounter Details Date Type Department Care Team (Late st Contact Info) Description 05/22/2020 Scanned Document [facility] [address] [phone] Deja Rico, [place] [address] Social History Tobacco Use Types Packs/Day Years [...] on filedocumented in this encounter Care Teams Gatehouse Attendant Relationship Specialty Start Date End Date Viet Sánchez PA [address] [place] [address] PCP - General 06/18/18 Viet Sánchez PA [address] [place] [address] 06/18/18 documented as of this encounter
--- OUTSIDE RECORDS SUMMARY | 2025-02-09 17:35 | XMS_ITS | Encounter Summary ---
Author Organization [employer] Address [address] [facility] 7t [place] [address] Care Team Providers Care Educational Resource Center Teacher Name Role Phone Maranda Serna MD Primary Care Provider [phone] Reason for Referral * Imaging (Routine) - Authorized Specialty Diagnoses / Procedures Referred By Contac t Referred To Contact Radiology Diagnoses Pulmonary nodule Procedures CT Chest w/o Contrast Maranda Serna MD [address] [place] [address] Phone: tel: fax: [address] Phone: tel: fax: Referral ID Status Reason Start Date Expiration Date V isits Requested Visits Authorized [id number] Authorized 02/07/2025 02/07/2026 1 1 Encounter Details Date Type Department Care Team (Late st Contact Info) Description 02/07/2025 Orders Only [facility] MEDICINE [address] [place], [place] [phone] Maranda Serna MD [address] [place], [place] [phone] Pulmonary nodule (Primary Dx) Social History Tobacco [...] as of this encounter Plan of Treatment Scheduled Orders Name Type Priority Associated Diagnoses Orde r Schedule CT Chest w/o Contrast Imaging Routine Pulmonary nodule Expected: 02/07/2025, Expires: 02/07/2026 documented as of this encounter Visit Diagnoses Diagnosis Pulmonary nodule- Primary Other diseases of lung, not elsewhere classified documented in this encounter Additional Health Concerns Assessment Noted Time PHQ-9 Depression Total Score: 0 01/18/20 25 1:12 PM EDT documented as of this encounter Care Teams Educational Resource Center Teacher Relationship Specialty Start Date End Date Maranda Serna MD [address] [place] [address] PCP - General Family Medicine 08/01/21 documented as of this encounter
--- OUTSIDE RECORDS SUMMARY | 2025-02-09 17:35 | XMS_ITS | Clinical Summary ---
Author Organization [address] [facility] Address [address] [place] [address] Phone Care Team Providers Care Automation Machine Operator Name Role Phone Machelle Swann MD Primary Care Provider [phone] Allergies Active Allergy Reactions Criticality Noted Date [...] 42 mcg (0.06 %) nasal spray 1 Amity by Nasal route. 09/24/20 Active omega-3 acid [...] osteoarthritis; plantar fasciitis - referred to a transition assistant; waiting for an appt - check the [...] hyperkalemia and cough -Currently prescribed Dapagliflozin from migration agent -Follow up in 3-6 mo, sooner if [...] Assessment & Plan: - followed by [facility] - no [...] Last Assessment & Plan: -Followed by [facility], last seen 08/06/22 -EGD and Colonoscopy on 12/24/21; showed Tubular Adenoma, she was recommended to repeat in 3 years. - pt has been using castor oil - continue trying fiber-rich diet and increasing physical activity as tolerated. - continue Senakot as prescribed Chronic kidney disease, stage III (moderate) 01/2022 Overview (08/25/2024): Last Assessment & Plan: - Dietitian Assistant, Dr. 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 Tsai is prescribing Dapagliflozin (Farxiga) - Previously on Lisinopril, but was disccontinued due to cough / K - Avoid nephrotoxic drugs - Renal dose meds Gastroesophageal reflux disease 10/12/2022 Overview (08/25/2024): Last Assessment & Plan: -s/p EGD 12/24/21 -followed by [facility] -continue omeprazole 40mg daily -previously tried pantoprazole and lansoprazole; pt prefers omeprazole. -previously prescribed famotidine. Max dose for her renal function is 20 mg daily. Pt does not take it regularly. Irritable bowel syndrome 10/12/2022 Overview (08/25/2024): Last Assessment & Plan: - followed by [facility] - continue [...] PM EDT Office Visit [facility] [place] [address] [facility] [address] [place] [address] Damien Centeno DPM [address] [address] Health Maintenance Due Date Last Done Comments Breast Cancer Screening 1960 Diabetes: Annual Foot Exam 1970 Diabetes: Annual Retina Eye Exam 1970 Cervical Cancer Screening: Pap Smear 1981 Zoster Vaccines (1 of 2) 2010 RSV Immunization Adult Patients (1 - Risk 60-74 years 1-dose [...] * Annual BMP Blood Test (12/30/2023) Pathologist [facility] Annual BMP Blood Test Abstracted Result [facility] HEALTH MAINTENANCE Final Result * Hemoglobin A1c (12/30/2023) Pathologist [facility] Hemoglobin A1C 0.0 % Comment:no interpretation Blood Venous blood specimen / Unknown Result [facility] Provider LAB BLOOD ORDERABLES Machelle l Result * Lipid panel (12/30/2023) Pathologist [facility] Triglycerides 0 mg/dL Comment:no interpretation Cholesterol 0 mg/dL Comment:no interpretation HDL 0 mg/dL Comment:no interpretation LDL Cholesterol 0 mg/dL Comment:no interpretation Blood Venous blood specimen / Unknown Result [facility] Provider LAB BLOOD ORDERABLES Machelle l Result * Urine Albumin Creatinine Ratio (07/24/2022) HM Urine Albumin Creatinine Ratio Abstracted us Historical Provider HEALTH MAINTENANCE Final Result from Last 3 Months or Most Recently Relevant to Health Maintenance Insurance MEDICAID - [place] Care Teams Automation Machine Operator Relationship Specialty Start Date End Date Machelle Swann MD [address] [place] [address] [place] [address] PCP - General 10/15/12
--- OUTSIDE RECORDS SUMMARY | 2025-02-09 17:35 | XMS_ITS | Encounter Summary ---
Author Organization [employer] Address [address] [facility] 7t [place] [address] Care Team Providers Care It Desktop Support Specialist Name Role Phone Maranda eSrna MD Primary Care Provider [phone] Reason for Visit * Reason Comments Med Refill Encounter Details Date Type Department Care Team (Late st Contact Info) Description 11/19/2023 Refill [facility] MEDICINE [address] [place], [place] [phone] Yesica Naylor MD [address] [place] [address] Social History Tobacco Use Types Packs/Day Years [...] documented as of this encounter Care Teams It Desktop Support Specialist Relationship Specialty Start Date End Date Maranda Serna MD [address] [place] [address] PCP - General Family Medicine 08/01/21 documented as of this encounter
--- OUTSIDE RECORDS SUMMARY | 2025-02-09 17:35 | XMS_ITS | Clinical Summary ---
Author Organization [employer] Address [address] [place] [address] Care Team Providers Care Snagger Name Role Phone Maranda Serna MD Primary Care Provider [phone] Allergies Active Allergy Reactions Criticality Noted Date Comments Cetirizine 10/01/2021 Nickel Rash Low 02/03/2020 Pork (Porcine) Protein 12/16/2022 Pork Allergy 06/25/2018 Medications * This document contains information received from the source organization and may not represent a complete record from that organization. ascorbic acid (Vitamin C) 500 MG tablet Take by mouth. 2 times every day Active atorvastatin (Lipitor) 20 MG tablet Take [...] intranasal route every day in each nostril Active ipratropium (Atrovent) 0.06 % nasal spray [...] mouth in the morning. 30 tablet 11 023 Active Blood Glucose Monitoring Suppl (FreeStyle [...] OR FEVER 90 tablet 3 024 Active glucose blood (FREESTYLE LITE) test strip TEST BLOOD SUGAR 3 TIMES A DAY 100 each 11 024 Active predniSONE (Deltasone) 10 MG tablet Take 1 or 2 tablets by mouth once daily for pain 10 tablet 024 Active gabapentin (Neurontin) 600 MG tablet Take 1/4 (150 mg) or 1/2 (300 mg) tablets by mouth once at bedtime 15 tablet 11 024 Active oxybutynin XL (Ditropan-XL) 5 MG 24 hr tablet Take 5 mg by mouth Once per day. 023 Active insulin lispro (HumaLOG) 100 UNIT/ML injection INJECT 14 UNITS SUBCUTANEOUSLY THREE TIMES DAILY BEFORE MEALS 15 mL 2 025 Active insulin degludec (Tresiba FlexTouch) 100 UNIT/ML injection INJECT 62 UNITS SUBCUTANEOUSLY EVERY DAY 30 mL 2 025 Active Easy Touch Pen Hillister 31G X 8 MM miscIndication s:Type 2 diabetes mellitus with hyperglycemia, with long-term current use of insulin ([facility]) USE DIRECTED THREE TIMES DAILY 200 each 11 Active aspirin 81 MG EC tablet Take 1 tablet (81 mg) by mouth Once per day. 90 tablet 3 025 2025 Active carvedilol (Coreg) 6.25 MG tablet Take 6.25 mg by mouth with breakfast and with evening meal. 025 Active Plavix 75 MG tablet Take 75 mg by mouth. Active dapagliflozin (Farxiga) 5 MG Take 5 mg by mouth Once per day. Active isosorbide mononitrate ER (Imdur) 30 MG 24 hr tablet Take 30 mg by mouth. Active niacinamide 500 MG tablet TAKE 1 TABLET BY MOUTH TWICE DAILY WITH BREAKFAST AND WITH EVENING MEAL Active senna (Senokot) 8.6 MG tablet Take 1 tablet by mouth if needed in the morning and at bedtime for constipation. Active TRUEplus Lancets 33G miscIndication s:Type 2 diabetes mellitus with hyperglycemia, with long-term current use of insulin ([facility]) TEST BLOOD SUGAR THREE TIMES DAILY 100 each 5 Active ferrous sulfate 325 (65 Fe) MG EC tablet Take 1 tablet by mouth every other day. Active TRUEplus Lancets 33G miscIndication s:Type 2 diabetes mellitus with hyperglycemia, with long-term current use of insulin ([facility]) TEST BLOOD SUGAR THREE TIMES DAILY 100 each 5 024 2024 Discontinued(R eorder (will not trigger notification to Pharmacy)) Active Problems Problem Noted Date Diagnosed Date Pulmonary nodule 02/07/2025 Coronary artery disease 01/16/2025 Assessment & Plan (01/21/2025 12:33 PM EDT): -Shredder Tender: [facility], last seen in Dec 2024 -11/30/2024- Cardiac catheterization showed [id number] distal LAD disease with severe distal stenosis and severe OM1 stenosis, small caliber vessels with severe disease and not amenable to stenting therefore was started on medical management with dual antiplatelet therapy. -12/01/2024- echo showed LVEF at 57%, with LV wall thickness in the pattern of concentric hypertrophy, central venous pressure mildly elevated, with no obvious wall motion abnormalities. -Continue aspirin and clopidogrel therapy. -Continue statin therapy, ideally LDL less [...] and supportive care - follow up with financial intern as scheduled Assessment & Plan (07/23/2024 9:02 [...] Plan (01/17/2025 11:35 AM EDT): - seeing financial intern - continue judicious use of gabapentin 100 mg tid - she wants to switch to tablet. Only tablets available are 600 and 800 mg tablet - will have her take 1/4 of 600 mg tablet and take bid; or will check with pharmacist if she can open the capsule and take inside content Assessment & Plan (07/23/2024 5:36 AM EDT): - seeing financial intern - continue judicious use of gabapentin 100 mg tid - she wants to switch to tablet. Only tablets available are 600 and 800 mg tablet - will have her take 1/4 of 600 mg tablet and take bid; or will check with pharmacist if she can open the capsule and take inside content Assessment & Plan (01/04/2024 3:36 PM EST): - seeing financial intern - continue judicious use of gabapentin Assessment & Plan (10/03/2023 9:48 AM EST): - seeing financial intern - waiting for diabetic orthotics Adjustment disorder [...] hyperkalemia and cough -Currently prescribed Dapagliflozin from channel sales manager -Follow up in 3-6 mo, sooner [...] hyperkalemia and cough -Currently prescribed Dapagliflozin from channel sales manager -Follow up in 3-6 mo, sooner [...] osteoarthritis; plantar fasciitis - referred to a financial intern; waiting for an appt - check the status of diabetic footwear Obesity 02/24/2023 Dyslipidemia 02/24/2023 Assessment & Plan (01/21/2025 12:28 PM EDT): - Last lipid profile on 11/30/24 Total cholesterol 106; Triglyceride 115; HDL 39; LDL 44; - Previously prescribed pravastatin - Currently prescribed atorvastatin, but pt was having a difficulty accepting the information that it is not nephrotoxic. - Continue working on lifestyle modifications. Assessment [...] use of insulin 02/11/2023 Assessment & Plan (01/21/2025 12:31 PM EDT): See plan for E11.65 Assessment & Plan (07/23/2024 5:46 AM EDT): [...] want to try any GLP-1 agonist. -Patient Pulverizer Tender prescribed Farxiga. Patient is taking this medication [...] want to try any GLP-1 agonist. -Patient Pulverizer Tender prescribed Farxiga. Patient is no longer taking [...] (01/04/2024 3:42 PM EST): - followed by [facility] - no anatomical pancreatic abnormality on MRI in Dec 2022 - continue vegan / plant-based pancreatic enzyme Assessment & Plan (10/03/2023 9:49 AM EST): - followed by [facility] - no anatomical pancreatic abnormality on MRI in Dec 2022 - continue vegan / plant-based pancreatic enzyme Assessment & Plan (06/07/2023 3:30 PM EDT): - followed by [facility] - no anatomical pancreatic abnormality on MRI in Dec 2022 - continue vegan / plant-based pancreatic enzyme Assessment & Plan (02/24/2023 5:30 AM EDT): - followed by [facility] - no anatomical pancreatic abnormality on MRI in Dec 2022 - continue vegan / plant-based pancreatic enzyme Assessment & Plan (12/18/2022 6:12 PM EST): - followed by [facility] - continue vegan pancreatic enzyme Allergic rhinitis 10/12/2022 Anemia 10/12/2022 Assessment & Plan (01/21/2025 12:29 PM EDT): - likely due to chronic diseaes - Hx iron infusion - continue iron supplementation Assessment & Plan (07/23/2024 5:48 AM EDT): [...] Chronic idiopathic constipation 10/12/2022 Assessment & Plan (01/21/2025 12:33 PM EDT): -Followed by [facility], last seen 01/03/25 -EGD and Colonoscopy on 12/24/21; showed Tubular Adenoma, she was recommended to repeat in 3 years. - pt has been using castor oil - continue trying fiber-rich diet and increasing physical activity as tolerated. - continue Senakot as prescribed Assessment & Plan (07/20/2024 1:50 PM EDT): -Followed by [facility], last seen 08/06/22 -EGD and Colonoscopy on 12/24/21; showed Tubular Adenoma, she was recommended to repeat in 3 years. - pt has been using castor oil - continue trying fiber-rich diet and increasing physical activity as tolerated. - continue Senakot as prescribed Assessment & Plan (01/04/2024 3:38 PM EST): -Followed by [facility], last seen 08/06/22 -EGD and Colonoscopy on 12/24/21; showed Tubular Adenoma, she was recommended to repeat in 3 years. - pt has been using castor oil - continue trying fiber-rich diet and increasing physical activity as tolerated. - continue Senakot as prescribed Assessment & Plan (06/07/2023 3:33 PM EDT): -Followed by [facility], last seen 08/06/22 -EGD and Colonoscopy on 12/24/21; showed Tubular Adenoma, she was recommended to repeat in 3 years. - pt has been using castor oil - continue trying fiber-rich diet and increasing physical activity as tolerated. - continue Senakot as prescribed Assessment & Plan (12/18/2022 6:26 PM EST): -Followed by [facility], last seen 08/06/22 -EGD and Colonoscopy on 12/24/21; showed Tubular Adenoma, she was recommended to repeat in 3 years. - pt has been using castor oil - continue trying fiber-rich diet and increasing physical activity as tolerated. - continue Senakot as prescribed Chronic kidney disease, stage III (moderate) 01/2022 Assessment & Plan (01/21/2025 12:32 PM EDT): - Pulverizer Tender, Dr. Marci Hylton. Last seen on 01/25/25 - Metformin is discontinued, Dr. Tsai started her on Dapagliflozin (Farxiga) - Previously on Lisinopril, but was disccontinued due to cough / K - Avoid nephrotoxic drugs, including NSAID (no more Aleve) - Renal dose meds Assessment & Plan (07/23/2024 5:41 AM EDT): - Pulverizer Tender, Dr. Marci Hylton. - Metformin is discontinued, Dr. Tsai started bryn ib Dapagliflozin (Farxiga) - Previously on Lisinopril, but was disccontinued due to cough / K - Avoid nephrotoxic drugs, including NSAID (no more Aleve) - Renal dose meds Assessment & Plan (01/04/2024 3:45 PM EST): - Pulverizer Tender, Dr. 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 Tsai is prescribing Dapagliflozin (Farxiga) - Previously on Lisinopril, but was disccontinued due to cough / K - Avoid nephrotoxic drugs - Renal dose meds Assessment & Plan (10/03/2023 9:41 AM EST): - Pulverizer Tender, Dr. 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 Tsai rx Peggy for DM management - Previously on Lisinopril, but was disccontinued due to cough / K - Avoid nephrotoxic drugs - Renal dose meds - Pt was advised that atorvastatin is not nephrotoxic and it will lower her ASCVD risk. Pt continues to decline statin therapy. Assessment & Plan (06/07/2023 3:34 PM EDT): - Pulverizer Tender, Dr. 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 Eulalio Woods for DM management - Previously on Lisinopril, but was disccontinued due to cough / K - Avoid nephrotoxic drugs - Renal dose meds - Pt was advised that atorvastatin is not nephrotoxic and it will lower her ASCVD risk. Pt continues to decline statin therapy. - Advised to call the office for an appt Assessment & Plan (02/24/2023 5:37 AM EDT): - Pulverizer Tender, Dr. Tsai - Lab: 12/24/22 BUN 28, Scr 2.0, eGFR 27 - Metformin is discontinued, Dr. Eulalio Woods for DM management - Previously on Lisinopril, but was disccontinued due to cough / K - Avoid nephrotoxic drugs - Renal dose meds - Pt was advised that atorvastatin is not nephrotoxic and it will lower her ASCVD risk. Pt continues to decline statin therapy. Assessment & Plan (12/18/2022 6:31 PM EST): - Pulverizer Tender, Dr. 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 Eulalio Woods for DM management - Previously on Lisinopril, but was disccontinued due to cough / K - Avoid nephrotoxic drugs - Renal dose meds - Pt was advised that atorvastatin is not nephrotoxic and it will lower her ASCVD risk. Pt continues to decline statin therapy. Gastroesophageal reflux disease 10/12/2022 Assessment & Plan (01/04/2024 3:42 PM EST): -s/p EGD 12/24/21 -followed by [facility] -continue omeprazole 40mg daily -previously tried pantoprazole and lansoprazole; pt prefers omeprazole. -previously prescribed famotidine. Max dose for her renal function is 20 mg daily. Pt does not take it regularly. Assessment & Plan (10/03/2023 9:50 AM EST): -s/p EGD 12/24/21 -followed by [facility] -continue omeprazole 40mg daily -previously tried pantoprazole and lansoprazole; pt prefers omeprazole. -previously prescribed famotidine. Max dose for her renal function is 20 mg daily. Pt does not take it regularly. Assessment & Plan (06/07/2023 3:33 PM EDT): -s/p EGD 12/24/21 -followed by [facility] -continue omeprazole 40mg daily -previously tried pantoprazole and lansoprazole; pt prefers omeprazole. -previously prescribed famotidine. Max dose for her renal function is 20 mg daily. Pt does not take it regularly. Assessment & Plan (12/18/2022 6:28 PM EST): -s/p EGD 12/24/21 -followed by [facility] -continue prantoprazol 40mg daily -previously prescribed famotidine. Max dose for her renal function is 20 mg daily. Irritable bowel syndrome 10/12/2022 Assessment & Plan (07/20/2024 1:50 PM EDT): - followed by [facility] - continue current treatment plan per GI - low FODMAP diet - pt is prescribed simethicone, Sennakot, citrucel, but does not like taking it regularly Assessment & Plan (01/04/2024 3:42 PM EST): - followed by [facility] - continue current treatment plan per GI - low FODMAP diet - pt is prescribed simethicone, Sennakot, citrucel, but does not like taking it regularly Assessment & Plan (10/03/2023 9:49 AM EST): - followed by [facility] - continue current treatment plan per GI - low FODMAP diet - pt is prescribed simethicone, Sennakot, citrucel, but does not like taking it regularly Assessment & Plan (06/07/2023 3:32 PM EDT): - followed by [facility] - continue current treatment plan per GI - low FODMAP diet - pt is prescribed simethicone, Sennakot, citrucel, but does not like taking it regularly Assessment & Plan (12/18/2022 6:27 PM EST): - followed by [facility] - continue [...] 2 diabetes mellitus 10/12/2022 Assessment & Plan (01/21/2025 12:30 PM EDT): - A1c 9.0% on 01/17/25, slowly improving, A1c 9.3% on 07/19/2024. - Continue working on lifestyle modification - Improve adherence self-monitoring glucose and insulin administration - Continue Tresiba 24-28 units at bedtime, questionable adherence and understanding of insulin dosing - Continue Humalog 10 units qAC (she states prefer to take right after meal instead prior) - Prescribed dapagliflozin (Farxiga) from PCP and channel sales manager, questionable adherence - Discussed about CGM, which she does not want to use it at this time Treatment Hx -Pt has taken GLP-1 agonists and had significant side effects, mainly GI. Pt states she does not want to try any GLP-1 agonist. -Patient Pulverizer Tender prescribed Farxiga. Patient is taking this medication on and off -metformin was discontinued due to CKDIII and renal decline. -Eye exam: 04/09/23, more recent per pt -Foot exam: Jul 2024; diabetic peripheral neuropathy -Microalbumin Test: Dec 2023 Hx microalbuminuria -Lipid profile: Nov 2024 Assessment & Plan (07/23/2024 5:48 AM EDT): [...] want to try any GLP-1 agonist. -Patient Pulverizer Tender prescribed Farxiga. Patient is taking this medication [...] want to try any GLP-1 agonist. -Patient Pulverizer Tender prescribed Farxiga. Patient is no longer taking [...] want to try any GLP-1 agonist. -Patient Pulverizer Tender prescribed Farxiga. Patient is no longer taking [...] want to try any GLP-1 agonist. -Patient Pulverizer Tender prescribed Farxiga. Patient is no longer taking [...] want to try any GLP-1 agonist. -Patient Pulverizer Tender prescribed Farxiga. Patient is no longer taking [...] organization. Date Type Department Care Team Description 02/09/2025 Telephone [facility] [address] [place] [address] Maranda Serna MD 02/09/2025 Telephone [facility] [address] [place] [address] Maranda Serna MD 02/07/2025 Orders Only [facility] [address] [place] [address] Maranda Serna MD Pulmonary nodule (Primary Dx) 01/28/2025 Orders Only [facility] [place] [address] Maranda Serna MD Type 2 diabetes mellitus with hyperglycemia, with long-term current use of insulin (CMS/HCC) 01/21/2025 Population Health Risk Score [facility] () Department [address] [place] [address] [phone] Provider, Population Health Generic 01/17/2025 11:00 AM EDT Office Visit [facility] [place] [address] Maranda Serna MD Coronary artery disease of [place] artery of [place] heart with stable angina pectoris (CMS/HCC) (Primary Dx); Stage 3b chronic kidney disease (CMS/HCC); Chronic idiopathic constipation; Type 2 diabetes mellitus with hyperglycemia, with long-term current use of insulin (CMS/HCC); Type 2 diabetes mellitus with stage 3b chronic kidney disease, with long-term current use of insulin (CMS/HCC); Dyslipidemia; Anemia due to stage 3b chronic kidney disease (CMS/HCC) (CMS/HCC) 01/17/2025 Travel 01/13/2025 Orders Only [facility] [place] [address] Maranda Serna MD Pulmonary nodule (Primary Dx) 01/13/2025 Telephone [facility] [place] [address] Maranda Serna MD chart prep 01/12/2025 Refill [facility] [address] [address] Yesica Naylor MD 12/23/2024 Orders Only GENERIC EXTERNAL DATA DEPARTMENT Provider, Generic External Data 12/14/2024 Refill [facility] [place] [id number] Maranda Serna MD Type 2 diabetes mellitus with hyperglycemia, with long-term current use of insulin (CMS/HCC) 12/13/2024 Refill [facility] [place] [phone] Maranda Serna MD 12/08/2024 Telephone [facility] [address] [place] [phone] Maranda Serna MD Transition Of Care (Tcm) (HDF- Unscheduled THIRD LVM) 12/07/[address] [address] Maranda Serna MD Hospital Follow-up 12/02/2024 Patient Outreach [address] [address] Maranda Serna MD Transition Of Care (Tcm) (HDF- Unscheduled second LVM) 12/01/2024 Patient Outreach [facility] [address] [place] [phone] Maranda Serna MD Transition Of Care (Tcm) (HDF- unscheduled LVM ) 11/27/2024 Orders Only [facility] External Provider, [facility] 11/25/[address] [address] Ayse Arce [place] December recall 11/16/2024 Refill [facility] [address] [place] [phone] Mahsa Acosta MD from Last 3 Months [...] with long-term current use of insulin ([facility]) POCT GLUCOSE Routine 01/17/2025 11:29 AM EDT Type 2 diabetes mellitus with hyperglycemia, with long-term current use of insulin ([facility]) CULTURE, URINE, ROUTINE Routine 12/23/2024 1:00 PM [...] with long-term current use of insulin ([facility]) Dyslipidemia HM COLONOSCOPY Routine 07/07/2022 from Last 3 Months or Most Recently Relevant to Health Maintenance Results * (ABNORMAL) POCT glycosylated hemoglobin (Hgb A1c) (01/17/2025 11:29 AM EDT) Hemoglobin A1C 9.0(A) 4.0 - 6.0 % QC Media Lot # [id number] Lot# Expiration Date Blood Capillary blood specimen / Unknown 01/17/2025 11:29 AM EDT Maranda Serna MD POINT OF CARE TEST ENTER/EDIT OR DERABLES Final Result * (ABNORMAL) POCT glucose manually resulted (01/17/2025 11:29 AM EDT) Glucose Blood, POC 235(A) 60 - 200 mg/dL QC Media Lot # [id number] Lot# Expiration Date [id number] Blood Capillary blood specimen / Unknown 01/17/2025 11:29 AM EDT Maranda Serna MD POINT OF CARE TEST ENTER/EDIT OR DERABLES Final Result * Culture, Urine, Routine (12/23/2024 1:00 PM EST) Urine Urine specimen obtained by clean catch procedure / Unknown 12/23/2024 1:00 PM EST 12/23/2024 4:59 PM EST Comment:UACC Narrative [facility] - 12/26/2024 7:26 AM EST [...] ORDERABLES Final Result Performing Organization Address City/State/[facility] Co de Phone Number [facility] [address] [place] [phone] * CT Chest w/o Contrast (11/27/2024 8:28 PM EST) Anatomical Region Laterality Modality Body, Chest Computed Tomogra phy 11/27/2024 8:28 PM EST Narrative 11/27/2024 8:30 PM EST ? [facility] ?[address] ?[place] [address] ? CT Scan Report ? Signed ? Patient: Ese Mendoza ?MR#: [id number] ?? 8 ? : 1960 ?Acct:[id number] ? Age/Sex: 64 / F ?ADM Date: 01/18/25 ? Loc: HO.ED ? Attending Dr: ? Ordering Physician: Rajwinder Bhatti CNP ?? Date of Service: 11/27/24 ?? Procedure(s): CT chest wo IV con ?? Accession Number(s): [id number] ? cc: Rajwinder Bhatti CNP; Maranda Serna MD ? Report Number: ?? [id number]: Total DLP = ??543.00 mGy-cm ? CLINICAL HISTORY: cp, sob ? CT chest without contrast ? Comparison: CT - CHEST WITHOUT CONTRAST [id number] - 12/22/07 00:00 EST ? Findings: The [...] ? DD/ 27 ? TD/TT: 11/27/242027 ? Ware Finisher: ? Procedure Note Constantin Falcon - 11/27/[address] [address] [address] Scan Report Signed Patient: Ese MendozaMR#: [id number] 8 : 1960Acct:[id number] Age/Sex: 64 / FADM Date: 11/27/24 Loc: HO.ED Attending Dr: Ordering Physician: Rajwinder Bhatti CNP Date of Service: 11/27/24 Procedure(s): CT chest wo IV con Accession Number(s): [id number] cc: Rajwinder Bhatti CNP; Maranda Serna MD Report Number: [id number]: Total DLP = 543.00 mGy-cm CLINICAL HISTORY: cp, sob CT chest without contrast Comparison: CT - CHEST WITHOUT CONTRAST [id number] - 12/22/07 00:00 EST Findings: The prior [...] in OV> 11/27/242028 DD/ 27 TD/TT: 11/27/242027 Ware Finisher: [facility] External Provider IMG CT PROCEDURES Edited Result - Final * Lactic Acid (11/27/2024 5:48 PM EST) Lactic Acid 1.2 0.5 - 2.0 mmol/L [facility] 11/27/2024 5:48 PM EST 11/27/2024 5:54 PM EST Generic External Data Provider LAB BLOOD ORDERAB LES Final Result [facility] [address] [place] [phone] * (ABNORMAL) High Sensitivity Troponin I (11/27/2024 4:48 PM EST) Only the most recent of2 resultswithin the time period is included. TROPONIN I HIGH SENSITIVITY 743.6(HH) <3.5 - 17.0 ng/L [facility] Comment:Critical value for t est(s): TROP Results called to and readback by: VICKIE Person calling: XIN Date: 11/27/24Time: 0342The Castillo high sensitivity Troponin-I results should beused in conjunction with other diagnostic information suchas ECG, clinical observations and information, and patientsymptoms to aid in the diagnosis of PR. 11/27/2024 4:48 PM EST 11/27/2024 4:52 PM EST us Generic External Data Provider LAB BLOOD ORDERAB LES Final Result Performing Organization Address City/[facility] [address]/ZIP Co de Phone Number [facility] [address] [place] [phone] * (ABNORMAL) C-reactive Protein (11/27/2024 2:07 PM EST) C Reactive Protein 4.57(H) < or = 0.50 mg/dL [facility] 11/27/2024 2:07 PM EST 11/27/2024 2:10 PM EST Generic External Data Provider LAB BLOOD ORDERAB LES Final Result Performing Organization Address [facility] [address]/[facility] Co de Phone Number [facility] [address] [place] [phone] * (ABNORMAL) Comprehensive Metabolic Panel (11/27/2024 2:07 PM EST) Sodium 140 135 - 145 mmol/L [facility] Potassium 4.0 3.3 - 5.1 mmol/L [facility] Chloride 108 96 - 108 mmol/L [facility] Carbon Dioxide 26 22 - 29 mmol/L [facility] Anion Gap 10(L) 12 - 20 [facility] Urea Nitrogen (BUN) 32(H) 9 - 16 mg/dL [facility] Creatinine, Serum 1.60(H) 0.5 - 1.4 mg/dL [facility] Creatinine Clr Calc Pharmacy 36.8 [facility] Comment:Provided height and weight: 157.48 cm,89.1 kg.eGFR (calculated from the MDRD study equation) and eCrCl(calculated from the Cockcroft-Gault equation) are based ondifferent parameters and may not yield comparable results.If eCrCl result is absurd, please check patient'sheight/weight. Estimated Glomerular Filt Rate 32 [facility] Comment:Chronic Kidney Disea se: Estimated GFR < 60 mL/min/1.78c6Hieqil Kidney Disease: Estimated GFR < 15 mL/min/1.73m2 Glucose 149(H) 60 - 115 mg/dL [facility] Calcium 8.6 8.4 - 10.2 mg/dL [facility] Bilirubin, Total 0.4 0.0 - 1.0 mg/dL [facility] Aspartate Amino Transferase 22 5 - 31 U/L [facility] Alanine Aminotransferase 9 0 - 31 U/L [facility] Total Protein 6.7 6.5 - 8.0 g/dL [facility] Albumin Level 3.5 3.5 - 5.0 g/dL [facility] Alkaline Phosphatase 108 39 - 117 U/L [facility] 11/27/2024 2:07 PM EST 11/27/2024 2:10 PM EST Generic External Data Provider LAB BLOOD ORDERAB LES Final Result Performing Organization Address [facility] de Phone Number [facility] [address] [place] [phone] * D Dimer High Sensitivity (11/27/2024 2:06 PM EST) D Dimer High Sensitivity 204 NG/ML [facility] Comment:D-DIMER HS REFERENCE RANGENote: Our [...] ORDERAB LES Final Result Performing Organization Address [facility] de Phone Number [facility] [address] [place] [address] [phone] * (ABNORMAL) CBC auto differential (11/27/2024 2:06 PM EST) White Blood Count 14.0(H) 4.8 - 10.8 X10*3/uL [facility] Red Blood Count 4.15(L) 4.20 - 5.50 X10*6/uL [facility] Hemoglobin 12.0 12.0 - 16.0 g/dl [facility] Hematocrit 36.9(L) 37.0 - 47.0 % [facility] Mean Corpuscular Volume 88.9 80.0 - 98.0 fL [facility] Mean Corpuscular Hemoglobin 28.9 27.0 - 33.0 pg [facility] Mean Corpuscular HGB Conc 32.5 31.0 - 35.0 g/dl [facility] Red Cell Distribution Width 15.7 11.0 - 16.0 % [facility] Platelet Count 294 160 - 400 X10*3/uL [facility] Mean Platelet Volume 11.3 9.4 - 12.3 fL [facility] Neutrophils Percent Auto 76.2(H) 45 - 73 % [facility] Imm Gran Pct Auto 0.4 0.0 - 0.4 % [facility] Lymphocytes Percent Auto 15.8(L) 20 - 40 % [facility] Monocytes Percent Auto 6.2 2 - 11 % [facility] Eosinophils Percent Auto 1.0 0 - 4 % [facility] Basophils Percent Auto 0.4 0 - 2 % [facility] NRBC Pct Auto 0.0 0.0 - 0.2 /100WBC [facility] Neutrophils Absolute Auto 10.7(H) 2.0 - 8.3 x10*3/uL [facility] Imm Gran Abs Auto 0.06(H) 0.00 - 0.03 X10*3/uL [facility] Lymphocytes Absolute Auto 2.2 1.2 - 4.9 X10*3/uL [facility] Monocytes Absolute Auto 0.9 0.1 - 1.2 X10*3/uL [facility] Eosinophils Absolute Auto 0.1 0.0 - 0.4 X10*3/uL [facility] Basophils Absolute Auto 0.1 0.0 - 0.2 X10*3/uL [facility] NRBC Abs Auto 0.000 0.0 - 0.012 X10*3/uL [facility] 11/27/2024 2:06 PM EST 11/27/2024 2:10 PM EST Generic External Data Provider LAB BLOOD ORDERAB LES Final Result Performing Organization Address [facility] [address]/[facility] Co de Phone Number [facility] [address] [place] [phone] * Prothrombin Time-INR (11/27/2024 2:06 PM EST) Prothrombin Time 12.1 10.9 - 12.4 SEC [facility] INTERNATIONAL NORM RATIO 1.0 0.9 - 1.1 [facility] Comment:INTERNATIONAL NORMAL IZED RATIO (INR) [...] 2:06 PM EST 11/27/2024 2:10 PM EST [employer] External Data Provider LAB BLOOD ORDERAB LES Final Result Performing Organization Address [facility] [address]/[facility] Co de Phone Number [facility] [address] [place] [address] [phone] * (ABNORMAL) B Type Natriuretic Peptide (BNP) (11/27/2024 2:06 PM EST) B Type Natriuretic Peptide 171(H) <100 pg/mL [facility] Comment:For those patients w ho are being treated with Natrecor(nesiritide, recombinant BNP), BNP testing should beperformed at least two hours post treatment in order toensure that only endogenous levels of BNP are detected. 11/27/2024 2:06 PM EST 11/27/2024 2:10 PM EST us Generic External Data Provider LAB BLOOD ORDERAB LES Final Result [facility] [address] [place] [address] [phone] * XR Chest 2 Views (11/27/2024 1:35 PM EST) Anatomical Region Laterality Modality Chest Radiographic Mary ging 11/27/2024 1:35 PM EST Narrative 11/27/2024 1:37 PM EST ? [facility] ?[address] ?[place] [address] ?XRay Report ? Signed ? Patient: Reji,Ese ?MR#: [id number] ?? 8 ? : 1960 ?Acct:[id number] ? Age/Sex: 64 / F ?ADM Date: 11/27/24 ? Loc: HO.ED ? Attending Dr: ? Ordering Physician: Shakira Godinez ?? Date of Service: 11/27/24 ?? Procedure(s): XR chest 2V ?? Accession Number(s): [id number] ? cc: Shakira Godinez; Maranda Serna MD ? CLINICAL HISTORY: cough ? 2 view chest x-ray ? Comparison: CT - CHEST WITHOUT CONTRAST [id number] - 12/22/07 00:00 EST ? Findings: ?? [...] DD/ 1335 ? TD/TT: 11/27/24 1335 ? Ware Finisher: ? Procedure Note Donotuseinterpreter, Image - 11/27/2024 [address] [place] [address] XRay Report Signed Patient: Ese MendozaMR#: [id number] 8 : 1960Acct:[id number] Age/Sex: 64 / FADM Date: 11/27/24 Loc: HO.ED Attending Dr: Ordering Physician: Shakira Godinez Date of Service: 11/27/24 Procedure(s): XR chest 2V Accession Number(s): [id number] cc: Shakira Godinez; Maranda Serna MD CLINICAL HISTORY: cough 2 view chest x-ray Comparison: CT - CHEST WITHOUT CONTRAST [id number] - 12/22/07 00:00 EST Findings: The lungs are clear. Heart size is normal. No acute fracture. IMPRESSION: 1. No acute findings. This document has been electronically signed by: Serina Nolan MD on 11/27/2024 13:35:59 Dictated By: Serina Nolan MD Signed By: <Electronically signed by Serina Nolan MD in OV> 11/27/24 1337 DD/ 1335 TD/TT: 11/27/24 133 Ware Finisher: [facility] External Provider IMG XR PROCEDURES Edited Result - Final * SARS-CoV-2 RNA, Influenza A/B, and RSV RNA, Ql NAAT (11/27/2024 12:43 PM EST) Influenza A PCR NEGATIVE Negative [facility] Influenza B PCR NEGATIVE Negative [facility] Resp Syncy Virus RNA Qual PCR NEGATIVE Negative [facility] SARS COV2 PCR NEGATIVE Negative [facility] Comment:All test results mus t [...] use by authorized laboratories.Testing performed on the [employer] GeneXpert utilizingreal-time RT-PCR.All SARS CoV2 and positive influenza A/B results arereported to [facility]. 11/27/2024 12:4 3 PM EST 11/27/2024 12:51 PM EST us Generic External Data Provider LAB MICROBIOLOGY - GENERAL ORDERABLES Final Result [facility] [address] [place] [address] [phone] * BI Mammogram Screening Tomosynthesis Bilateral (02/10/2024 2:40 PM EDT) Anatomical Region Laterality Modality Breast Bilateral Mammography 02/10/2024 2:40 PM EDT Narrative 02/22/2024 3:43 PM EDT ? [facility] ? [address] ?[place] [address] ? Mammography Report ? Signed ? Patient: Reji,Ese ?MR#: [id number] ?? 8 ? : 1960 ?Acct:[id number] ? Age/Sex: 63 / F ?ADM Date: 02/09/ ? Loc: HO.MAMMO ? Attending Dr: Maranda Serna MD ? Ordering Physician: Maranda Serna MD ?Results: 1Negative ? Date of Service: 02/10/24 ?Follow Up: 1 Year From Orig ?? inal Mammogram ? Procedure(s): MM tomosynthesis screening BI ?? Accession Number(s): [id number] ? cc: Maranda Serna MD ? EXAMINATION: [...] These include several, bilateral, ?? benign macrocalcifications customer care representative of fat necrosis. ? MM/MM tomosynthesis [...] by Tianna Carney MD in OV> ? 02/22/249 ? DD/ ? TD/TT: ? Ware Finisher: ? Procedure Note Ezekiel, Image - 02/22/2024 [place] [facility]'[address] [place] [address] Mammography Report Signed Patient: Ese MendozaMR#: [id number] 8 : 1960Acct:[id number] Age/Sex: 63 / FADM Date: 02/10/24 Loc: HO.MAMMO Attending Dr: Maranda Serna MD Ordering Physician: Maranda Serna MDResults: 1Negative Date of Service: 02/10/24Follow Up: 1 Year From Orig ina Mammogram Procedure(s): MM tomosynthesis screening BI Accession Number(s): [id number] cc: Maranda Serna MD EXAMINATION: MM SCREENING [...] present. These include several, bilateral, benign macrocalcifications customer care representative of fat necrosis. MM/MM tomosynthesis screening [...] in OV> 02/22/24 1539 DD/ 1440 TD/TT: Ware Finisher: Maranda Serna MD IM BI PROCEDURES Edited Result - Final * (ABNORMAL) Lipid Panel with Reflex to Direct LDL (12/30/2023 4:50 PM EST) Triglycerides 177(H) <150 mg/dL [facility] Comment:Desirable Triglyceri de: less than 150 mg/dLBorderline High Triglyceride 150-199 mg/dLHigh Triglyceride: 200-499 mg/dLVery High Triglyceride: greater than or equal to 5OO mg/dL Cholesterol 235(H) <200 mg/dL [facility] Comment:Desirable Cholestero l: less than 200 mg/dLBorderline High Cholesterol: 200-239 mg/dLHigh Cholesterol: greater than 239 mg/dL LDL Cholesterol Calculated 151(H) <100 mg/dL [facility] Comment:Desirable LDL: less than 100 mg/dLNear Optimal/Above Optimal LDL: 110- 129 mg/dLBorderline High LDL: 130-159 mg/dLHigh LDL: 160-189 mg/dLVery High LDL: greater than or equal to 190 mg/dL HDL Cholesterol 49 >40 mg/dL [facility] Comment:Desirable HDL: great er than 40 mg/dL Note: This HDL assay may give artificially low results in patients with liver disease. Blood 12/30/2023 4:50 PM EST 12/30/2023 5:26 PM EST Maranda Serna MD LAB BLOOD ORDERABLES Final Resul t [facility] [address] [place] [address] [phone] * (ABNORMAL) Hm Colonoscopy (07/07/2022) Colonoscopy Abnormal(A ) Normal [facility] External Provider HEALTH MAINTENANCE Final Result from Last 3 Months or Most Recently Relevant to Health Maintenance [place] [address] [place] [address] STANDARD Care Teams Snagger Relationship Specialty Start Date End Date Maranda Serna MD [address] [place] [phone] PCP - General Family Medicine 08/01/21
--- OUTSIDE RECORDS SUMMARY | 2025-02-09 17:36 | XMS_ITS | Encounter Summary ---
Author Organization [facility] Address [address] [facility] [address] [place] [address] Phone Care Team Providers Care Trailer Steerer Name Role Phone Maranda Serna MD Primary Care Provider [phone] Encounter Details Date Type Department Care Team (Late st Contact Info) Description 05/17/2024 Office Communication [facility] [address] [place] [address] Marci Gleason ARNP [address] [phone] Social History Tobacco Use Types Packs/Day Years Used Date Smoking Tobacco: Never Smokeless Tobacco: Never Alcohol Use Standard Drinks/Week Comments Yes 0 (1 standard drink = 0.6 oz pure alcohol) Intermittently Hot Amanda. Tea with [place] only if sick Comments Unknown Sex and [...] Visit [facility] [address] [facility] [address] [place] [address] Marci Gleason ARNP [address] [facility] [address] [place] [address] documented as of this encounter Visit Diagnoses Not on filedocumented in this encounter Care Teams Trailer Steerer Relationship Specialty Start Date End Date Maranda Serna MD [address] [place] [phone] PCP - General Family Medicine 08/24/21 documented as of this encounter
--- OUTSIDE RECORDS SUMMARY | 2025-02-09 17:36 | XMS_ITS | Encounter Summary ---
Author Organization [employer] Address [address] [facility] 7t [place] [address] Care Team Providers Care Filter Tank Tender Helper Name Role Phone Maranda Serna MD Primary Care Provider [phone] Reason for Visit * Reason Onset Date Comments Durable Medical Equipment 05/26/2024 Encounter Details Date Type Department Care Team ([facility] st Contact Info) Description 05/26/2024 Telephone [facility] [address] [place], [place] [phone] Maranda Serna MD [address] [place], [place] [phone] Durable Medical Equipment Social History Tobacco Use [...] walker. Pt stated she was advised by director sanitation bureau jigneshow up with orthopedic and they prescribed a walker for the pt. Pt wants script send over to [facility] [address] If any questions you can contact pt at [phone]. documented in this encounter Plan of Treatment Not on file documented as of this encounter Visit Diagnoses Not on filedocumented in this encounter Additional Health Concerns Assessment Noted Time PHQ-9 Depression Total Score: 6 10/23/20 22 10:04 AM EST documented as of this encounter Care Teams Filter Tank Tender Helper Relationship Specialty Start Date End Date Maranda Serna MD [address] [place] [address] PCP - General Family Medicine 08/01/21 documented as of this encounter
--- OUTSIDE RECORDS SUMMARY | 2025-02-09 17:36 | XMS_ITS | Patient Health Record ---
Author Organization [employer] Address [address] [facility] [id number] [address] Care Team Providers Care Interlocking Pavement Installer Name Role Phone Larisa Saldana Primary Care Provider [phone] ALLERGIES Allergen (clinical drug ingredient) Drug/Non Drug [...] diabetes mellitus without complications (E11.9) Active confirmed 312419808 Problem Type 2 diabetes mellitus with diabetic polyneuropathy (E11.42) Active confirmed 93920570 Problem Other chronic pain (G89.29) Active confirmed 93066076 Problem Age-related nuclear cataract, bilateral (H25.13) Active confirmed Nuclear senile cataract (422563986) Problem Diabetes (E11.9) Active confirmed Diabe carlos mellitus without complication (294675976) Problem Dyslipidemia (E78.5) Active confirmed 359611261 Problem HTN (hypertension) (I10) Active confirmed Hypertension (63082976) Problem Arthritis (M19.90) Active confirmed 372 3001 Problem senior care current use of insulin (Z79.4) Active confirmed 356797006 Problem Controlled diabetes mellitus with diabetic neuropathy (E11.40) Active confirmed Diabetic peripheral neuropathy associated with type 2 diabetes mellitus (7350391367705) Problem Type 2 diabetes mellitus with mild nonproliferative diabetic retinopathy without macular edema, bilateral (E11.3293) Active confirmed Mild nonproliferative retinopathy due to type 2 diabetes mellitus (304830911913843) Problem Left retinal detachment (H33.22) Active confirmed Serous r etinal detachment (61754252) Problem Menopausal and postmenopausal disorder (N95.9) Active confirmed 935574471 PLAN OF TREATMENT Pending Test Test Name [...] End Date MACKENZIE Hughes [address] [place] [address] [id number] Ese Mendoza Self - patient is the insured MEDICAID DENTAL [address] [place] [address] [id number] Ese Mendoza Self - patient is the [...]
--- OUTSIDE RECORDS SUMMARY | 2025-02-09 17:36 | XMS_ITS | Encounter Summary ---
Author Organization [employer] Address [address] [facility] 7t [place] [address] Care Team Providers Care Cleat Maker Name Role Phone Maranda Serna MD Primary Care Provider [phone] Reason for Visit * Reason Onset Date Comments Appointment Request 05/28/2024 Encounter Details Date Type Department Care Team ([facility] st Contact Info) Description 05/28/2024 Telephone [facility] [address] [place], [place] [phone] Maranda Serna MD [address] [place], [place] [phone] Appointment Request Social History Tobacco Use Types [...] documented as of this encounter Care Teams Cleat Maker Relationship Specialty Start Date End Date Maranda Serna MD [address] [place] [address] PCP - General Family Medicine 08/01/21 documented as of this encounter
--- OUTSIDE RECORDS SUMMARY | 2025-02-09 17:36 | XMS_ITS | Clinical Summary ---
Author Organization [facility] Address [address] [place] [phone] Phone Care Team Providers Care Convertible Power Shovel Operator Name Role Phone Maranda Serna MD [...] 1-2 puffs if needed 12/25/19 19 Active fluticasone (FLONASE) 50 MCG/ACT nasal spray USE 1 SPRAY IN EACH NOSTRIL ONCE D 09/06/20 18 Active Tresiba FlexTouch 100 UNIT/ML injection Inject 90 Units under the skin every night 09/24/20 21 Active cyanocobalamin (VITAMIN B-12) 100 MCG tablet See Instructions, Per pt., takes 5000 mcg daily?, 0 Refills, Maintenance, 11/17/20 13:14:00 EST, Partial fill upon patient request if the prescription is for a schedule II opioid drug. 11/17/19 21 Active Magnesium 400 MG tablet Take 400 mg by mouth in the morning and 400 mg in the evening. Active clopidogrel (PLAVIX) 75 MG tablet Take 75 mg by mouth 1 (one) time each day Active aspirin (ST MARLEE) 81 MG EC tablet Take 81 mg by mouth 1 (one) time each day Active omeprazole (PriLOSEC) [address] capsule Take 40 mg by mouth 1 (one) time each day Do not crush or chew. Active insulin lispro protamine-insuli n lispro (HumaLOG 50-50) (50-50) 100 UNIT/ML inj pen Inject under the skin 2 (two) times a day before meals Active carvedilol (COREG) 6.25 MG tablet Take 6.25 mg by mouth in the morning and 6.25 mg in the evening. Take with meals. Active Dapagliflozin Propanediol 5 MG tabletIndication s:Stage 3b chronic kidney disease (HCC),Proteinuri a, not otherwise specified Take 5 mg by mouth 1 (one) time each day in the morning 90 tablet 3 01/26/20 25 026 Active Cranberry 500 MG capsule Take 1 tablet by mouth twice a day 025 Discontin ued(Med List Maintenan ce) pantoprazole (PROTONIX) 40 MG EC tablet Take 40 mg by mouth 1 (one) time each day 07/27/20 21 025 Discontin ued(Med List Maintenan ce) Cholecalciferol (Vitamin D3) 1.25 MG (01631 UT) capsule See Instructions, Per pt., takes 125 mg daily, 0 Refills, Maintenance, 11/17/20 13:11:00 EST, Partial fill upon patient request if the prescription is for a schedule II opioid drug. 11/17/19 21 025 Discontin ued(Med List Maintenan ce) Insulin Lispro, 1 Unit Dial, 100 UNIT/ML solution pen-injector INJECT 14 UNITS SUBCUTANEOUSLY THREE TIMES DAILY BEFORE MEALS 08/25/20 23 025 Discontin ued(Med List Maintenan ce) gabapentin (Neurontin) 100 MG capsule Take 1 capsule (100 mg total) by mouth in the morning and 1 capsule (100 mg total) in the evening and 1 capsule (100 mg total) before bedtime. 90 capsule 11 09/16/20 23 025 Discontin ued(Med List Maintenan ce) Dapagliflozin Propanediol (Farxiga) 10 MG tabletIndication s:Type 2 diabetes mellitus with diabetic chronic kidney disease (HCC),Chronic kidney disease, stage 4 (severe) (HCC),Pulmonary arterial hypertension (HCC) Take 10 mg by mouth 1 (one) time each day 90 tablet 3 12/08/19 24 025 Discontin ued(Side effects) diphenhydrAMINE (BENADRYL) 25 MG capsule Take 25 mg by mouth every 6 (six) hours if needed for itching 025 Discontin ued(Med List Mainharoldo ce) Active Problems Problem Noted Date Diagnosed Date Proteinuria, not otherwise specified 01/25/2025 Stage 3b chronic kidney disease 05/19/2024 Stage 3a chronic kidney disease 07/23/2022 Atrial fibrillation 12/25/2021 Cobalamin deficiency 12/25/2021 Retinopathy due to diabetes mellitus 12/25/2021 Renal stone 12/25/2021 Vitamin D deficiency 12/25/2021 Type 2 diabetes mellitus wit h diabetic chronic kidney disease 10/01/2021 Anemia in chronic kidney disease 10/01/2021 Diabetic peripheral neuropat hy associated with type 2 diabetes mellitus 11/22/2019 Hypertension 11/09/2019 Type 2 diabetes mellitus 02/09/2019 Overview (10/01/2021): [...] kidney disease, stage 4 (severe) 10/01/2021 12/31/2021 Obstructive sleep apnea syndrome 11/09/2019 07/22/2022 Arthritis [...] by 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 - Will obtain lab work. Also curious to see radiographic imaging of the hands, feets, SI and lumbar spine. Will obtain interval history from auto transport driver Karlee Le. - RTC in 4 months - she is to continue with mtx 4 tabs qweekly and folic acid Ulcer of foot 07/19/2011 07/22/2022 Encounters Date Type Department Care Team Description 01/26/2025 Refill [facility] [address] [place] [phone] Shasha Delacruz MA 01/25/2025 2:45 PM EDT Office Visit [facility] [address] [phone] Marci Gleason ARNP Stage 3b chronic kidney disease (HCC) (Primary Dx); Anemia in chronic kidney disease; Proteinuria, not otherwise specified 01/25/2025 Office Communication [facility] [address] [phone] Marci Gleason ARNP from Last 3 Months Immunizations Name Administration Dates Next Due Influenza [...] pure alcohol) Intermittently Hot Amanda. Tea with [place] only if sick Comments Unknown Sex and Gender Information Value Date Recorded Sex Assigned at Not on file Legal Sex Female 5:18 PM EST Gender Identity Not on file Sexual Orientation Not on file Last Filed Vital Signs Vital Sign Reading Time Taken Comments Blood Pressure 120/80 01/25/2025 3:30 PM EDT Pulse 90 01/25/2025 3:30 PM EDT Temperature - - Respiratory Rate - - Oxygen Saturation 95% 01/13/2024 2:18 PM EST Inhaled Oxygen Concentration - - Weight 91.2 kg (201 lb) 01/25/2025 3:30 PM EDT Height 157.5 cm (5' 2 ) 09/16/2023 3:07 PM EST Body Mass Index 36.76 09/16/2023 3:07 PM EST Plan of Treatment Upcoming Encounters Date Type Department Care Team (Late st Contact Info) Description 07/26/2025 2:00 PM EDT Office Visit [facility] [address] [phone] GleasonMarciRAMONA [address] [phone] Health Maintenance Due Date Last Done Comments Breast Cancer Screening 1960 Colorectal Cancer Screening: Annual FOBT 2009 Colorectal Cancer Screening: Colonoscopy 2009 Colorectal Cancer Screening: Sigmoidoscopy 2009 Diabetes: Ophthalmology Exam 08/24/2021 Diabetes: Pedal Pulse Checked 08/24/2021 Diabetes: Sensory Foot Exam 08/24/2021 Diabetes: Visual Foot Exam 08/24/2021 Diabetes: Hemoglobin A1C 04/19/2025 025, 07/19/2024, 12/30/2023, Additional history exists Hepatitis B Vaccine Aged Out 09/23/2023, 12/16/2022, 07/08/2022 No longer eligible based on patient's age to complete this topic Pneumococcal Vaccine: Pediatrics (0 to 5 Years) and At-Risk Patients (6 to 64 Years) Completed 09/23/2023, 01/01/2021 Influenza Vaccine Completed 08/06/2024, , 09/24/2021, Additional history exists Insurance [address] [place] [id number] [place] Care Teams Convertible Power Shovel Operator Relationship Specialty Start Date End Date Maranda Serna MD [address] [place] [phone] PCP - General Family Medicine 08/24/21
== END 2025-02-09 15:41 | disposition home or self-care (01) ==
LOC: HO.HUSH 15:09
PROVIDERS: PCP Family Medicine; Visit Provider Urology
DX: Z13.9 Encounter for screening, unspecified (principal)

== ENCOUNTER → 2025-02-09 15:09 | Outpatient (BNVA) | payer MEDICAID, SELFPAY | PROVIDERS: PCP Family Medicine; Visit Provider Urology | DX: N32.81 Overactive bladder (principal); R32 Unspecified urinary incontinence; E11.9 Type 2 diabetes mellitus without complications; Z87.440 Personal history of urinary (tract) infections | CPT/HCPCS: 51798; 81003; 99212 ==

== ENCOUNTER 2025-02-11 13:17 | Outpatient (RCR) | payer MEDICAID, SELFPAY ==
[2025-01-18 13:34] LABS: Glucose, Whole Blood 219 mg/dL (60-115)
[2025-01-24 14:31] LABS: Glucose, Whole Blood 278 mg/dL (60-115)
[2025-01-31 14:32] LABS: Glucose, Whole Blood 182 mg/dL (60-115)
[2025-02-11 14:40] LABS: Glucose, Whole Blood 193 mg/dL (60-115)
== END 2025-04-08 06:35 | disposition home health service (06) ==
LOC: HO.CR 13:17
PROVIDERS: PCP Family Medicine
DX: I21.4 Non-ST elevation (NSTEMI) myocardial infarction (principal); Z98.890 Other specified postprocedural states
CPT/HCPCS: 82947; 93798

== ENCOUNTER 2025-02-15 14:02 | Outpatient (REF) | payer MEDICAID, SELFPAY ==
--- NOTE | ~2025-02-15 | XR_ITS ---
EXAMINATION: XR CHEST 2 VIEWS HISTORY: acute uri symptoms, hx NSTEMI nov 2024 COMPARISON: Comparison is made with the prior examination dated 11/27/2024. FINDINGS: PA and lateral views of the chest are submitted. The lungs are expanded and clear. There is no pleural effusion, pneumothorax, or pulmonary vascular congestion. There is degenerative disc disease of the spine. There are surgical clips in the right upper quadrant. The bones are intact. XR/XR chest 2V IMPRESSION: No acute cardiopulmonary abnormality. Electronically signed by: Franklin Mark MD 02/15/2025 02:20 PM EDT
--- OUTSIDE RECORDS SUMMARY | 2025-02-15 17:09 | XMS_ITS | Encounter Summary ---
Author Organization [facility] Address [address] [place] [address] Care Team Providers Care Fibreglass Lay Up Worker Name Role Phone Viet Sánchez Unavailable [phone] Viet Sánchez Primary Care Provider Encounter Details Date Type Department Care Team (Late st Contact Info) Description 07/07/2018 Scanned Document [facility] Urologic Surgery [place] [address] [facility] [address] [place] [address] Provider, Sheryl, [address] [place] [address] Social History Tobacco Use Types Packs/Day Years [...] on filedocumented in this encounter Care Teams Fibreglass Lay Up Worker Relationship Specialty Start Date End Date Viet Sánchez PA [address] [place] [address] PCP - General 06/18/18 Viet Sánchez PA [address] [place] [address] 06/18/18 documented as of this encounter
--- OUTSIDE RECORDS SUMMARY | 2025-02-15 17:09 | XMS_ITS | Encounter Summary ---
Author Organization [employer] Address [address] [facility] [address] 7[address] [place] [address] Care Team Providers Care Draw Fire Operator Name Role Phone Maranda Serna MD Primary Care Provider Encounter Details Date Type Department Care Team (Late st Contact Info) Description 04/22/2023 Orders Only [facility] MEDICINE [address] [place] [address] Maranda Serna MD [address] [place] [address] Left foot pain (Primary Dx); Type 2 diabetes mellitus with hyperglycemia, with long-term current use of insulin ([facility]) Social History Tobacco Use Types Packs/Day [...] hyperglycemia, with long-term current use of insulin ([facility]) documented in this encounter Additional Health Concerns Assessment Noted Time PHQ-9 Depression Total Score: 6 10/23/20 22 10:04 AM EST documented as of this encounter Care Teams Draw Fire Operator Relationship Specialty Start Date End Date Maranda Serna MD [address] [place] [address] PCP - General Family Medicine 08/01/21 documented as of this encounter
--- OUTSIDE RECORDS SUMMARY | 2025-02-15 17:09 | XMS_ITS | Encounter Summary ---
Author Organization [employer] Address [address] [facility] 7t [place] [address] Care Team Providers Care Battery Container Tester Name Role Phone Maranda Serna MD Primary Care Provider [phone] Reason for Visit * Reason Comments Med Refill Encounter Details Date Type Department Care Team (Late st Contact Info) Description 11/19/2023 Refill [facility] MEDICINE [address] [place], [place] [phone] Yesica Naylor MD [address] [place] [address] Social History Tobacco Use Types Packs/Day Years [...] documented as of this encounter Care Teams Battery Container Tester Relationship Specialty Start Date End Date Maranda Serna MD [address] [place] [address] PCP - General Family Medicine 08/01/21 documented as of this encounter
--- OUTSIDE RECORDS SUMMARY | 2025-02-15 17:09 | XMS_ITS | Clinical Summary ---
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 - Will obtain lab work. Also curious to see radiographic imaging of the hands, feets, SI and lumbar spine. Will obtain interval history from grating machine operator Karlee Le. - RTC in 4 [...] polyneuropathy, with long-term current use of insulin ([facility]) POCT HEMOGLOBIN, A1C Routine 02/09/2019 8:10 AM EDT Type 2 diabetes mellitus with diabetic polyneuropathy, with long-term current use of insulin ([facility]) HIV COMBO ANTIGEN/ANTIBODY Routine 10/06/2018 3:59 PM EST Polyarthralgia from Last 3 Months or Most Recently Relevant to Health Maintenance Results * Microalbumin/creatinine ratio (02/09/2019 10:15 AM EDT) Microalbumin/Creat Ratio 20 2 - 20 mg/g Creat 02/09/2019 11:55 AM EDT [facility] Creatinine, Urine, Random 101 mg/dL 02/09/2019 11:55 AM EDT [facility] Comment: The laboratory does not have established reference ranges for this test. Interpretation of results is at the discretion of the ordering physician. Urine specimen (specimen) Urine specimen obtained by clean catch procedure / Unknown Non-blood Collection / Unknown 02/09/2019 10:15 AM EDT 02/09/2019 10:15 AM EDT us Keke Katz APRN LAB URINE ORDERABLES Final Res ult [facility] [address] [place] [address], [place] [phone] * POCT hemoglobin, A1c (02/09/2019 8:10 AM EDT) POCT Hemoglobin A1C 9.2 4.4 - 6.4 % Blood specimen (specimen) 02/09/2019 8:10 AM EDT us Keke Katz HAT FORMING MACHINE OPERATOR POCT ORDERABLES NO CHARGE Machelle l Result * HIV combo antigen/antibody (10/06/2018 3:59 PM EST) HIV Combo AB/AG Negative Negative 10/06/2018 6:02 PM EST [facility] Blood specimen (specimen) Venous blood specimen / Unknown Venipuncture / Unknown 10/06/2018 3:59 PM EST 10/06/2018 3:59 PM EST Narrative [facility] - 10/06/2018 6:02 PM EST This test is a 4th generation HIV Antigen-Antibody Combination assay, using a chemiluminescent microparticle immunoassay, for the simultaneous qualitative detection of human immuno- deficiency virus (HIV) p24 antigen and antibodies to HIV type 1 (HIV-1) and/or HIV type 2 (HIV-2) in human serum or plasma. The Cast[employer] Baker Chef HIV Ag/Ab Combo assay is intended to [...] BLOOD ORDERABLES NO ST AT Final Result [facility] [address] [place] [address], [place] [phone] from Last 3 Months or Most Recently Relevant to Health Maintenance Insurance MEDICAID [place] D Care Teams Desk Attendant Relationship Specialty Start Date End Date Viet Sánchez PA [address] [place] [address] PCP - General Family Medicine 07/22/18
--- OUTSIDE RECORDS SUMMARY | 2025-02-15 17:09 | XMS_ITS | Clinical Summary ---
Author Organization [address] [facility] Address [address] [place] [address] Phone Care Team Providers Care Automotive Tire Technician Name Role Phone Machelle Swann MD Primary Care Provider [phone] Allergies Active Allergy Reactions Criticality Noted Date [...] 42 mcg (0.06 %) nasal spray 1 [place] by Nasal route. 09/24/20 Active omega-3 acid [...] osteoarthritis; plantar fasciitis - referred to a [employer] compliance internship; waiting for an appt - check the [...] hyperkalemia and cough -Currently prescribed Dapagliflozin from open claims representative -Follow up in 3-6 mo, sooner if [...] Last Assessment & Plan: - followed by [facility] - no anatomical pancreatic abnormality on MRI in Dec 2022 - continue vegan / plant-based pancreatic enzyme Right knee pain 12/16/2022 Allergic rhinitis 10/12/2022 Anemia 10/12/2022 Overview (08/25/2024): Last Assessment & Plan: - likely due to chronic diseaes - Hx iron infusion - 12/24/22 Hgb 11.7, Hematocrit 35.7 Chronic idiopathic constipation 10/12/2022 Overview (08/25/2024): Last Assessment & Plan: -Followed by [facility], last seen 08/06/22 -EGD and Colonoscopy on 12/24/21; showed Tubular Adenoma, she was recommended to repeat in 3 years. - pt has been using castor oil - continue trying fiber-rich diet and increasing physical activity as tolerated. - continue Senakot as prescribed Chronic kidney disease, stage III (moderate) 01/2022 Overview (08/25/2024): Last Assessment & Plan: - Heeler, Dr. 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 Tsai is prescribing Dapagliflozin (Farxiga) - Previously on Lisinopril, but was disccontinued due to cough / K - Avoid nephrotoxic drugs - Renal dose meds Gastroesophageal reflux disease 10/12/2022 Overview (08/25/2024): Last Assessment & Plan: -s/p EGD 12/24/21 -followed by [facility] -continue omeprazole 40mg daily -previously tried pantoprazole and lansoprazole; pt prefers omeprazole. -previously prescribed famotidine. Max dose for her renal function is 20 mg daily. Pt does not take it regularly. Irritable bowel syndrome 10/12/2022 Overview (08/25/2024): Last Assessment & Plan: - followed by [facility] - continue current treatment plan per [...] PM EDT Office Visit Orthopedic Surgery - [place] [address] [facility] [address] [place] [address] Damien Centeno DPM [address] [address] Health Maintenance Due Date Last Done Comments [...] age to complete this topic Meningococcal B Vaccine Aged Out No l onger eligible based on patient's age to complete [...] * Annual BMP Blood Test (12/30/2023) Pathologist Critical access hospital Annual BMP Blood Test Abstracted Result [facility] Provider HEALTH MAINTENANCE Final Result * Hemoglobin A1c (12/30/2023) Hemoglobin A1C 0.0 % Comment:no interpretation Blood Venous blood specimen / Unknown Result [facility] Provider LAB BLOOD ORDERABLES Machelle l Result * Lipid panel (12/30/2023) Triglycerides 0 mg/dL Comment:no interpretation Cholesterol 0 mg/dL Comment:no interpretation HDL 0 mg/dL Comment:no interpretation LDL Cholesterol 0 mg/dL Comment:no interpretation Blood Venous blood specimen / Unknown Result [facility] Provider LAB BLOOD ORDERABLES Machelle l Result * Urine Albumin Creatinine Ratio (07/24/2022) HM Urine Albumin Creatinine Ratio Abstracted us Historical Provider HEALTH MAINTENANCE Final Result from Last 3 Months or Most Recently Relevant to Health Maintenance Insurance MEDICAID - [place] Care Teams Automotive Tire Technician Relationship Specialty Start Date End Date Machelle Swann MD [address] [place] [address] [place] [address] PCP - General 10/15/12
--- OUTSIDE RECORDS SUMMARY | 2025-02-15 17:09 | XMS_ITS | Encounter Summary ---
Author Organization [employer] Address [address] [facility] [address] [place] [address] Care Team Providers Care Associate Broker Name Role Phone Maranda Serna MD Primary Care Provider [phone] Encounter Details Date Type Department Care Team ([facility] st Contact Info) Description 01/28/2025 Orders Only [facility] MEDICINE [address] [place] [address] Maranda Serna MD [address] [place], [place] [phone] Type 2 diabetes mellitus with hyperglycemia, with long-term current use of insulin ([facility]) Social History Tobacco Use Types Packs/Day [...] hyperglycemia, with long-term current use of insulin ([facility]) documented in this encounter Additional Health Concerns Assessment Noted Time PHQ-9 Depression Total Score: 0 01/18/20 25 1:12 PM EDT documented as of this encounter Care Teams Associate Broker Relationship Specialty Start Date End Date Maranda Serna MD [address] [place] [address] PCP - General Family Medicine 08/01/21 documented as of this encounter
--- OUTSIDE RECORDS SUMMARY | 2025-02-15 17:09 | XMS_ITS | Encounter Summary ---
Author Organization [employer] Address [address] [facility] 7t [place] [address] Care Team Providers Care Open End Spinning Operator Name Role Phone Maranda Serna MD Primary Care Provider [phone] Reason for Referral * Imaging (Routine) - Authorized Specialty Diagnoses / Procedures Referred By Contac t Referred To Contact Radiology Diagnoses Pulmonary nodule Procedures CT Chest w/o Contrast Maranda Serna MD [address] [place] [address] Phone: tel: fax: [address] Phone: tel: fax: Referral ID Status Reason Start Date Expiration Date V isits Requested Visits Authorized [id number] Authorized 02/07/2025 02/07/2026 1 1 Encounter Details Date Type Department Care Team (Late st Contact Info) Description 02/07/2025 Orders Only [facility] MEDICINE [address] [place], [place] [phone] Maranda Serna MD [address] [place], [place] [phone] Pulmonary nodule (Primary Dx) Social History Tobacco [...] documented as of this encounter Care Teams Open End Spinning Operator Relationship Specialty Start Date End Date Maranda Serna MD [address] [place] [address] PCP - General Family Medicine 08/01/21 documented as of this encounter
--- OUTSIDE RECORDS SUMMARY | 2025-02-15 17:09 | XMS_ITS | Encounter Summary ---
Author Organization [facility] Address [address] [place] [address] Care Team Providers Care Head Of Mathematics Name Role Phone Viet Sánchez Unavailable [phone] Viet Sánchez Primary Care Provider [phone] Encounter Details Date Type Department Care Team (Late st Contact Info) Description 11/09/2019 Prep for Surgery OPHTHALMOLOGY [address] [place] [address] Holland Hunt MD [address] [facility] [address] [place] [address] Social History Tobacco Use Types Packs/Day Years [...] on filedocumented in this encounter Care Teams Head Of Mathematics Relationship Specialty Start Date End Date Viet Sánchez PA [address] [place] [address] PCP - General 06/18/18 Viet Sánchez PA [address] [place] [address] 06/18/18 documented as of this encounter
--- OUTSIDE RECORDS SUMMARY | 2025-02-15 17:09 | XMS_ITS | Encounter Summary ---
Author Organization [facility] Address [address] [place] [address] Care Team Providers Care Mental Health Counselor Name Role Phone Viet Sánchez Unavailable [phone] Viet Sánchez Primary Care Provider [phone] Encounter Details Date Type Department Care Team (Late st Contact Info) Description 08/06/[address] [facility] Urologic Surgery [place] [address] [facility] [address] [place] [address] Provider, MD Sheryl [address] [place] [address] Social History Tobacco Use Types Packs/Day Years [...] on filedocumented in this encounter Care Teams Mental Health Counselor Relationship Specialty Start Date End Date Viet Sánchez PA [address] [place] [address] PCP - General 06/18/18 Viet Sánchez PA [address] [place] [address] 06/18/18 documented as of this encounter
--- OUTSIDE RECORDS SUMMARY | 2025-02-15 17:09 | XMS_ITS | Data Portability ---
Author Organization [facility] - Clarence Sen MD, [facility]- Address [address] [place] [address] Assessment No assessment recorded. Plan of Treatment Reminders Order Date Submit Date Provider Last Modified By Organization Details Last Modified Time Details Appointments None recorded. Lab urinalysis, complete 2016 017 [email or web address] In-House Results, For Internal Use Only, Do Not Delete/merge, [id number] 7 11:38:12 urinalysis, complete 2016 017 [email or web address] In-House Results, For Internal Use Only, Do Not Delete/merge, [id number] 7 11:38:12 urinalysis, complete 2016 017 [email or web address] In-House Results, For Internal Use Only, Do Not Delete/merge, [id number] 7 13:16:50 urinalysis, complete 2016 017 [facility] In-House Results, For Internal Use Only, Do Not Delete/merge, [id number] 7 13:16:50 urinalysis, complete 2016 017 t[facility] In-House Results, For Internal Use Only, Do Not Delete/merge, [id number] 7 14:28:33 urinalysis, complete 2016 017 t[facility]clung In-House Results, For Internal Use Only, Do Not Delete/merge, [id number] 7 14:28:33 Referral None recorded. Procedures None recorded. Surgeries None recorded. Imaging US, retroperito neum 2016 017 t[facility]ung In-House Results, For Internal Use Only, Do Not Delete/merge, [id number] 7 14:28:33 Medication Orders None recorded. Patient TargetsNo targets recorded. Patient Instructions Encounter Date Encounter Id Patient Instructions Last Modified By Organization Details Last Modified Time 05/06/2017 [id number] Urinary Tract Infection (UTI) in Women: Care Instructions [email or web address] Not available 05/09/2017 14:28:33 bladder training : care instructions [email or web address] Not available 05/09/2017 14:28:33 kegel exercises: care instructions [email or web address] Not available 05/09/2017 14:28:33 Stress Incontinence: Care Instructions [email or web address] Not available 05/09/2017 14:28:33 Urge Incontinence: Care Instructions [email or web address] Not available 05/09/2017 14:28:33 07/30/2017 [id number] Urinary Tract Infection (UTI) in Women: Care Instructions [email or web address] Not available 08/04/2017 13:16:50 bladder training : care instructions [email or web address] Not available 08/04/2017 13:16:50 kegel exercises: care instructions [email or web address] Not available 08/04/2017 13:16:50 Stress Incontinence: Care Instructions [email or web address] Not available 08/04/2017 13:16:50 Urge Incontinence: Care Instructions [email or web address] Not available 08/04/2017 13:16:50 09/29/2017 [id number] Urinary Tract Infection (UTI) in Women: Care Instructions [email or web address] Not available 10/01/2017 12:43:07 Reason for Referral None Reported. Results Created Date Observation Date Name Description Value Unit Range Abnormal Flag Note LastModifiedBy Organization Detail LastModifiedTime 09/29/20 17 09/29/2017 urina lysis , compl ete Leukocytes Negati ve Not Available In-House Results For Internal Use Only, Do Not Delete/merge, [id number] 09/29/2017 18:46:44 09/29/20 17 09/29/2017 urina lysis , compl ete Nitrite negati ve Not Available In-House Results For Internal Use Only, Do Not Delete/merge, [id number] 09/29/2017 18:46:44 09/29/20 17 09/29/2017 urina lysis [...] 09/29/2017 urina lysis , compl ete Specific [place] 1.020 Not Available In-[place]ise se Results For [...] 09/29/2017 urina lysis , compl ete Specific [place] 1.025 Not Available In-[place] se Results For [...] 07/30/2017 urina lysis , compl ete Specific [place] 1.020 Not Available In-[place] se Results For [...] 07/30/2017 urina lysis , compl ete Specific [place] 1.030 Not Available In-[place] se Results For [...] 05/06/2017 urina lysis , compl ete Specific [place] 1.015 Not Available In-[place] se Results For [...] 05/06/2017 urina lysis , compl ete Specific [place] 1.025 Not Available In-[place] se Results For [...] routine FINAL REPORT abnormal Not Available [facility] ([facility]) [address] [place], [address], 05/08/2017 16:19:18 05/06/2005/08/2017 cultu re, urine result 1 KLEBSI MONICA PNEUMO NIAE abnormal GREAT ER THAN 100,0 00 COLON Y FORMI NG UNITS PER ML Not Available [facility] ([facility]) [address] [facility], [place], [address], 05/08/2017 16:19:18 05/06/20 17 05/08/2017 cultu re, [...] THOPR IM/ANDRADE LFA S Not Available [facility] ([facility]) [address] [place], [address], 05/08/2017 16:19:18 07/30/20 17 08/01/2017 cultu re, urine urine culture, routine FINAL REPORT abnormal Not Available [facility] ([facility]) [address] [place], [address], 08/01/2017 16:22:57 07/30/20 17 08/01/2017 cultu re, urine result 1 KLEBSI MONICA PNEUMO NIAE abnormal Great er than 100,0 00 colon y formi ng units per mL Not Available [facility] ([facility]) [address] [place], [address], 08/01/2017 16:22:57 07/30/20 17 08/01/2017 cultu re, [...] thopr im/Andrade lfa S Not Available [facility] ([facility]) [address], [place], [address], 08/01/2017 16:22:57 05/15/20 17 05/15/2017 US, renal No observ ation record ed. [email or web address] [facility] [address] [facility], [place], [address], 07/30/2017 17:43:40 07/30/20 17 05/15/2017 US, retro [...] LastModified Time 05/15/2017 US, renal completed [email or web address] [facility] [address] [facility], [place], [address], 07/30/2017 17:43:40 05/15/2017 US, retroperitoneum completed [facility] Infor mation not available 09/30/2017 11:33:32 05/15/2017 XR, kidney + ureter + bladder completed [facility] Information not available 09/30/2017 11:33:32 Procedure Notes [...] Updated DateTime 7 157.48 cm 37.5 kg/m2 54525.4 4 g 84 /min 98 mm[Hg] 41 mm[Hg] Ashley Sen MD 7 15:17:41 Date Recorded Body height Body mass index (BMI) Body weight Heart rate Systolic blood pressure Diastolic blood pressure Provider Name and Address Organization Details Last Updated DateTime 7 160.02 cm 35.8 kg/m2 14980.6 6 g 87 /min 113 mm[Hg] 49 mm[Hg] Ashley Sen MD 7 15:05:21 Date Recorded Body height Body mass index (BMI) Body weight Heart rate Systolic blood pressure Diastolic blood pressure Provider Name and Address Organization Details Last Updated DateTime 7 160.02 cm 35.8 kg/m2 56940.6 6 g 98 /min 107 mm[Hg] 51 [...] SNOMED-CT Code Diagnosis ICD10 Code Diagnosis Note [id number] [address] [place] [address] 05/06/2017 14:29:22 05/06/2017 17:13:49 Mixed urinary incontinence 055468511 N39.46 Incomplete emptying of urinary bladder 440535185 R39.14 Urinary tr act infectious disease 44699509 N39.[address] [place] [address] 07/30/2017 14:16:01 07/30/2017 17:45:30 Mixed urinary incontinence 040148202 N39.46 Cystitis 28182800 N30.90 Urinary tr act infectious disease 50232551 N39.[address] [place] [address] 09/29/2017 17:41:48 09/30/2017 11:37:17 Urinary tract infectious disease 39442897 N39.0 Health Concerns Section Related Observation LastModified by Organization Detai ls LastModified Time None Recorded Concern Status LastModified by Organization Details LastModified Time None Recorded Advance Directives Directive None Recorded Payers Encounter Date Sequence Insurance Name Policy Number Policy Singer Covered Member ID Singer Member ID Guarantor Name 05/06/2017 1 [facility] [facility] [place]ACEMENT - HMO) [place] Ese N Reji [id number] Ese N Reji 07/30/2017 1 [facility] [employer]PLACEMENT - HMO) [employer] Ese N Reji [id number] Ese N Reji 09/29/2017 1 [facility] [facility] [employer] [place]ICAID REPLACEMENT - HMO) [employer] Ese N Reji [id number] Ese N Reji OBGyn Episode No OBEpisode recorded.
--- OUTSIDE RECORDS SUMMARY | 2025-02-15 17:09 | XMS_ITS | Encounter Summary ---
Author Organization [employer] Address [address] [facility] 7t [place] [address] Care Team Providers Care Curator Zoological Museum Name Role Phone Maranda Serna MD Primary Care Provider [phone] Reason for Visit * Reason Comments Med Refill Encounter Details Date Type Department Care Team (Late st Contact Info) Description 01/12/2025 Refill [facility] MEDICINE [address] [place], [place] [phone] Yesica Naylor MD [address] [place] [address] Social History Tobacco Use Types Packs/Day Years [...] documented as of this encounter Care Teams Curator Zoological Museum Relationship Specialty Start Date End Date Maranda Serna MD [address] [place] [address] PCP - General Family Medicine 08/01/21 documented as of this encounter
--- OUTSIDE RECORDS SUMMARY | 2025-02-15 17:09 | XMS_ITS | Encounter Summary ---
Author Organization [employer] Address [address] [facility] [address] [place] [address] Care Team Providers Care Isolation Washer Name Role Phone Maranda Serna MD Primary Care Provider [phone] Encounter Details Date Type Department Care Team ([facility] st Contact Info) Description 02/15/2025 2:00 PM EDT Office Visit [facility] [address] [place], [place] [phone] Joleen Avery MD [address] [place] [address] Viral upper respiratory infection Social History Tobacco Use Types Packs/Day Years [...] Sign Reading Time Taken Comments Blood Pressure 136/75 02/15/2025 1:23 PM EDT Pulse 108 02/15/2025 1:23 PM EDT Temperature 36.2 ??C (97.2 ??F) 02/15/2025 1:23 PM ED T Respiratory Rate - - Oxygen Saturation 98% 02/15/2025 1:23 PM EDT Inhaled Oxygen Concentration - - Weight 91.5 kg (201 lb 12.8 oz) 02/15/2025 1:23 PM EDT Height - - Body Mass Index 35.7 01/17/2025 11:22 AM EDT documented in this encounter Progress Notes * Edgard Garcia - 02/15/2025 2:00 PM EDT Subjective Patient ID: Ese Mendoza is a 64 y.o. female with past medical history of diabetes mellitus type2, hypertension, CKD3, and anemi who presents to walk in clinic for No chief complaint on file.. Seen in [facility] ED on 11/27/24 for upper respiratory symptoms. Work-up showed elevated troponin. Dx NSTEMI in the setting of bronchitis. Received ASA, IV heparin, statin, and carvedilol. Transthoracic echocardiogram showed normal EF, no WMA. Transferred to [facility] for cardiac catheterization on 11/30/24. Discharged on 12/01/24 with Rx clopidogrel 75 mg daily, isosorbide mononitrate 30 mg daily, ferrous sulfate 325 mg every other day, polyethylene glycol, and senna. Seen by [facility] Cardiology on 12/22/24. Added isosorbide mononitrate for antianginal effect. Saw [facility] again 01/19/25. EKG showed sinus tachycardia, rate 103 beats per minute, low-voltage QRS, possible inferior and lateral infarct, not new, normal FL, corrected QT. EKG today unchanged from 01/19/25. Pt today reports feeling like she has had a cold the past few days, just like she did with her NSTEMI. She reports chills, sweating, coughing and body aches. Review of Systems Constitutional: Positive for chills. Negative for fever and unexpected weight change. HENT: Positive for sore throat. Respiratory: Positive for cough and shortness of breath. Cardiovascular: Negative for chest pain. Gastrointestinal: Negative for abdominal pain. Genitourinary: Negative for difficulty urinating. Musculoskeletal: Positive for myalgias. Objective Visit Vitals BP 136/75 (BP Location: Left arm, Patient Position: Sitting, BP Cuff Size: Adult) Pulse 108 Temp 97.2 ??F (36.2 ??C) (Temporal) Wt 201 lb 12.8 oz (91.5 kg) SpO2 98% BMI 35.70 kg/m?? Smoking Status Former BSA 2.02 m?? Physical Exam Constitutional: Appearance: Normal appearance. HENT: Nose: Congestion present. Mouth/Throat: Mouth: Mucous membranes are moist. Pharynx: Oropharynx is clear. Posterior oropharyngeal erythema present. Cardiovascular: Rate and Rhythm: Regular rhythm. Tachycardia present. Pulses: Normal pulses. Heart sounds: Normal heart sounds. No murmur heard. Pulmonary: Effort: Pulmonary effort is normal. No respiratory distress. Breath sounds: Normal breath sounds. No decreased breath sounds or wheezing. Musculoskeletal: Cervical back: Normal range of motion and neck supple. Right lower leg: No edema. Left lower leg: No edema. Neurological: General: No focal deficit present. Mental Status: She is alert. Psychiatric: Behavior: Behavior normal. Office Visit on 02/15/2025 Component Date Value Influenza B 02/15/2025 Negative Influenza A 02/15/2025 Negative Rapid COVID Ag 02/15/2025 Negative Problem List Items Addressed This Visit Viral upper respiratory infection COVID and Flu negative. No evidence of respiratory distress. Symptoms mild. No evidence of dehydration. No LE edema, exam not consistent with fluid overload. Lungs clear. -Ordered CXR 02/15/25 -Supportive care advised. -Isolation recommendations discussed. Relevant Orders Influenza B (ID NOW Rapid Molecular) (Completed) Influenza A (ID NOW Rapid Molecular) (Completed) POCT Rapid COVID Ag (Completed) XR Chest 2 Views -No evidence of acute disease process. Suspect viral URI. Symptoms mild. -Ordered CXR, recommended supportive care. -ER precautions discussed. -Seek medical attention for worsening symptoms. 02/15/25 2:24 PM XR/XR chest 2V IMPRESSION: No acute cardiopulmonary abnormality. I, Edgard Garcia, am serving as a scribe to document services personally performed by Dr. Olmstead, based on the patient's response to questions by provider and providers statements to me. documented in this encounter Miscellaneous Notes * Assessment & Plan Note - Edgard Garcia - 02/15/2025 1:58 PM EDTAssociated Problem(s): Viral upper respiratory infection COVID and Flu negative. No evidence of respiratory distress. Symptoms mild. No evidence of dehydration. No LE edema, exam not consistent with fluid overload. Lungs clear. -Ordered CXR 02/15/25 -Supportive care advised. -Isolation recommendations discussed. documented in this encounter Plan of Treatment Not on file documented as of this encounter Procedures Procedure Name Priority Date/Time Associated Diagnosis Comments ECG 12-LEAD Routine 02/15/2025 2:15 PM EDT Viral upper respiratory infection XR CHEST 2 VIEWS Routine 02/15/2025 2:03 PM EDT Viral upper respiratory infection POCT INFLUENZA B (ID NOW RAPID MOLECULAR) Routine 02/15/2025 1:46 PM EDT Viral upper respiratory infection POCT INFLUENZA A (ID NOW RAPID MOLECULAR) Routine 02/15/2025 1:46 PM EDT Viral upper respiratory infection POCT RAPID COVID ANTIGEN Routine 02/15/2025 1:46 PM EDT Viral upper respiratory infection documented in this encounter Results * ECG 12 lead (02/15/2025 2:15 PM EDT) Narrative Joleen Avery MD - 02/15/2025 2:15 PM EDT . EKG showed sinus tachycardia, rate 103 beats per minute, low-voltage QRS, possible inferior Infarct similar to ECG 01/19/25 us Joleen Avery MD ECG ORDERABLES Final Resu lt * XR Chest 2 Views (02/15/2025 2:03 PM EDT) Anatomical Region Laterality Modality Chest Radiographic Mary ging 02/15/2025 2:03 PM EDT Narrative 02/15/2025 2:22 PM EDT ?[facility] ?[address] ?[place] [address] ?XRay Report ? Signed ? Patient: Ese Mendoza ?MR#: [id number] ?? 8 ? : 1960 ?Acct:[id number] ? Age/Sex: 64 / F ?ADM Date: 02/15/25 ? Loc: HO.HHCX ? Attending Dr: Joleen Avery MD ? Ordering Physician: Joleen Avery MD ?? Date of Service: 02/15/25 ?? Procedure(s): XR chest 2V ?? Accession Number(s): [id number] ? cc: Joleen Avery MD ? EXAMINATION: ??XR CHEST 2 VIEWS ? HISTORY: acute uri symptoms, hx NSTEMI nov 2024 ? COMPARISON: Comparison is made with the prior examination dated ?? 11/27/2024. ? FINDINGS: ??PA and lateral views of the chest are submitted. The lungs ?? are expanded and clear. ??There is no pleural effusion, pneumothorax, or ?? pulmonary vascular congestion. ??There is degenerative disc disease of ?? the spine. There are surgical clips in the right upper quadrant. ??The ?? bones are intact. ? XR/XR chest 2V ?? IMPRESSION: ?? No acute cardiopulmonary abnormality. ? Electronically signed by: ??Franklin Mark MD ??02/15/2025 02:20 PM EDT ? Dictated By: ?Franklin Mark MD ? Signed By: ?<Electronically signed by Franklin Mark MD in OV> ?02/15/25 1420 ? DD/ 1403 ? TD/TT: 02/15/25 1405 ? Team Leader Surgery: ? Procedure Note Donciarainterpreter, Image - 02/15/[address] [address] XRay Report Signed Patient: Ese MendozaMR#: [id number] 8 : 1960Acct:[id number] Age/Sex: 64 / FADM Date: 02/15/25 Loc: HO.HHCX Attending Dr: Joleen Avery MD Ordering Physician: Joleen Avery MD Date of Service: 02/15/25 Procedure(s): XR chest 2V Accession Number(s): [id number] cc: Joleen Avery MD EXAMINATION: XR CHEST 2 VIEWS HISTORY: acute uri symptoms, hx NSTEMI nov 2024 COMPARISON: Comparison is made with the prior examination dated 11/27/2024. FINDINGS: PA and lateral views of the chest are submitted. The lungs are expanded and clear. There is no pleural effusion, pneumothorax, or pulmonary vascular congestion. There is degenerative disc disease of the spine. There are surgical clips in the right upper quadrant. The bones are intact. XR/XR chest 2V IMPRESSION: No acute cardiopulmonary abnormality. Electronically signed by: Franklin Mark MD 02/15/2025 02:20 PM EDT Dictated By: Franklin Mark MD Signed By: <Electronically signed by Franklin Mark MD in OV> 02/15/25 1420 DD/ 140 TD/TT: 02/15/251404 Team Leader Surgery: Joleen Avery MD IMG XR PROCEDURES Final Re sult * POCT Rapid COVID Ag (02/15/2025 1:46 PM EDT) [facility] Rapid COVID Ag Negative Swab 02/15/2025 1:46 PM EDT Joleen Avery MD POINT OF CARE TEST ENTER/E DIT ORDERABLES Final Result * Influenza A (ID NOW Rapid Molecular) (02/15/2025 1:46 PM EDT) [facility] Influenza A Negative Negative, Indeterminate [facility] Swab 02/15/2025 1:46 PM EDT Joleen Avery MD POINT OF CARE TEST ENTER/E DIT ORDERABLES Final Result Performing Organization Address [facility] Co de Phone Number [facility] [address] [place] [phone] * Influenza B (ID NOW Rapid Molecular) (02/15/2025 1:46 PM EDT) [facility] Influenza B Negative Negative, Indeterminate [facility] Swab 02/15/2025 1:46 PM EDT Joleen Avery MD POINT OF CARE TEST ENTER/E DIT ORDERABLES Final Result Performing Organization Address [facility] de Phone Number [facility] [address] [place] [phone] documented in this encounter Visit Diagnoses Diagnosis Viral upper respiratory infection Acute upper respiratory infections of unspecified site documented in this encounter Additional Health Concerns Assessment Noted Time PHQ-9 Depression Total Score: 0 01/18/20 25 1:12 PM EDT documented as of this encounter Care Teams Isolation Washer Relationship Specialty Start Date End Date Maranda Serna MD [address] [place] [phone] PCP - General Family Medicine 08/01/21 documented as of this encounter
--- OUTSIDE RECORDS SUMMARY | 2025-02-15 17:09 | XMS_ITS | Encounter Summary ---
Author Organization [facility] Address [address] [phone] Phone Care Team Providers Care Milk Delivery Driver Name Role Phone Maranda Serna MD Primary Care Provider [phone] Encounter Details Date Type Department Care Team (Late st Contact Info) Description 01/25/2025 Office Communication [facility] [address] [place] [phone] Marci Gleason ARNP [address] [phone] Social History Tobacco Use Types Packs/Day Years Used Date Smoking Tobacco: Never Smokeless Tobacco: Never Alcohol Use Standard Drinks/Week Comments Yes 0 (1 standard drink = 0.6 oz pure alcohol) Intermittently Hot Amanda. Tea with [place] only if sick Comments Unknown Sex and [...] Office Visit [facility] [address] [phone] Marci Gleason ARNP [address] [phone] documented as of this encounter Visit Diagnoses Not on filedocumented in this encounter Care Teams Milk Delivery Driver Relationship Specialty Start Date End Date Maranda Serna MD [address] [place] [address] PCP - General Family Medicine 08/24/21 documented as of this encounter
--- OUTSIDE RECORDS SUMMARY | 2025-02-15 17:09 | XMS_ITS | Encounter Summary ---
Author Organization [employer] Address [address] [facility] [address] [place] [address] Care Team Providers Care Naval Science Teacher Name Role Phone Maranda Serna MD Primary Care Provider [phone] Encounter Details Date Type Department Care Team ([facility] st Contact Info) Description 02/15/2025 Telephone [facility] [address] [place], [place] [phone] Joleen Avery MD [address] [place] [address] Social History Tobacco Use Types Packs/Day Years [...] encounter Miscellaneous Notes * Telephone Encounter - Kylie Brice RN - 02/15/2025 3:08 PM EDT TC placed to pt regarding message below per Dr. Avery. Pt verbalized understanding. No questionsor concerns expressed at this time. Pt to F/U as needed. ----- Message from Joleen Avery MD sent at 02/15/2025 2:25 PM EDT ----- Please let pt know that chest x ray looks good. No concern for congestive heart failure or pneumonia. Htank you. documented in this encounter Plan of Treatment Not on file documented as of this encounter Visit Diagnoses Not on filedocumented in this encounter Additional Health Concerns Assessment Noted Time PHQ-9 Depression Total Score: 0 01/18/20 25 1:12 PM EDT documented as of this encounter Care Teams Naval Science Teacher Relationship Specialty Start Date End Date Maranda Serna MD [address] [place] [address] PCP - General Family Medicine 08/01/21 documented as of this encounter
--- OUTSIDE RECORDS SUMMARY | 2025-02-15 17:09 | XMS_ITS | Encounter Summary ---
Author Organization [employer] Address [address] [facility] [address] [place] [address] Care Team Providers Care Retirement Consultant Name Role Phone Maranda Serna MD Primary Care Provider [phone] Reason for Visit * Reason Onset Date Comments Hospital Follow-up 12/07/2024 Encounter Details Date Type Department Care Team ([facility] Contact Info) Description 12/07/2024 Telephone [facility] [address] [place], [place] [phone] Maranda Serna MD [address] [place], [place] [phone] Hospital Follow-up Social History Tobacco Use Types [...] follow up. Pt requested a call back. [phone] (Pt Contact) documented in this encounter Plan of Treatment Not on file documented as of this encounter Visit Diagnoses Not on filedocumented in this encounter Additional Health Concerns Assessment Noted Time PHQ-9 Depression Total Score: 6 10/23/20 10:04 AM EST documented as of this encounter Care Teams Retirement Consultant Relationship Specialty Start Date End Date Maranda Serna MD [address] [place] [address] PCP - General Family Medicine 08/01/21 documented as of this encounter
--- OUTSIDE RECORDS SUMMARY | 2025-02-15 17:09 | XMS_ITS | Clinical Summary ---
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 Name Role Phone Maranda Serna MD Primary Care Provider [phone] Allergies Active Allergy Reactions Criticality Noted Date [...] mL 2 025 Active Easy Touch Pen Veblen 31G X 8 MM miscIndication s:Type 2 diabetes mellitus with hyperglycemia, with long-term current use of insulin ([facility]) USE DIRECTED THREE TIMES DAILY 200 each [...] hyperglycemia, with long-term current use of insulin ([facility]) TEST BLOOD SUGAR THREE TIMES DAILY 100 each 5 Active ferrous sulfate 325 (65 Fe) MG EC tablet Take 1 tablet by mouth every other day. Active TRUEplus Lancets 33G miscIndication s:Type 2 diabetes mellitus with hyperglycemia, with long-term current use of insulin ([facility]) TEST BLOOD SUGAR THREE TIMES DAILY 100 each 5 024 2024 Discontinued(R eorder (will not trigger notification to Pharmacy)) Active Problems Problem Noted Date Diagnosed Date Viral upper respiratory infection 02/15/2025 Assessment & Plan (02/15/2025 1:58 PM EDT): COVID and Flu negative. No evidence of respiratory distress. Symptoms mild. No evidence of dehydration. No LE edema, exam not consistent with fluid overload. Lungs clear. -Ordered CXR 02/15/25 -Supportive care advised. -Isolation recommendations discussed. Pulmonary nodule 02/07/2025 Coronary artery disease 01/16/2025 Assessment & Plan (01/21/2025 12:33 PM EDT): -Spinner Hand: [facility], last seen in Dec 2024 -11/30/2024- Cardiac catheterization showed [id number] distal LAD disease with severe distal stenosis [...] and supportive care - follow up with service liaison representative as scheduled Assessment & Plan (07/23/2024 9:02 [...] Plan (01/17/2025 11:35 AM EDT): - seeing service liaison representative - continue judicious use of gabapentin 100 mg tid - she wants to switch to tablet. Only tablets available are 600 and 800 mg tablet - will have her take 1/4 of 600 mg tablet and take bid; or will check with pharmacist if she can open the capsule and take inside content Assessment & Plan (07/23/2024 5:36 AM EDT): - seeing service liaison representative - continue judicious use of gabapentin 100 mg tid - she wants to switch to tablet. Only tablets available are 600 and 800 mg tablet - will have her take 1/4 of 600 mg tablet and take bid; or will check with pharmacist if she can open the capsule and take inside content Assessment & Plan (01/04/2024 3:36 PM EST): - seeing service liaison representative - continue judicious use of gabapentin Assessment & Plan (10/03/2023 9:48 AM EST): - seeing service liaison representative - waiting for diabetic orthotics Adjustment disorder [...] hyperkalemia and cough -Currently prescribed Dapagliflozin from road repairer -Follow up in 3-6 mo, sooner if [...] hyperkalemia and cough -Currently prescribed Dapagliflozin from road repairer -Follow up in 3-6 mo, sooner if [...] osteoarthritis; plantar fasciitis - referred to a service liaison representative; waiting for an appt - check the [...] want to try any GLP-1 agonist. -Patient Inner Tube Cutter prescribed Farxiga. Patient is taking this medication [...] want to try any GLP-1 agonist. -Patient Inner Tube Cutter prescribed Farxiga. Patient is no longer taking [...] (01/04/2024 3:42 PM EST): - followed by [facility] - no anatomical pancreatic abnormality on MRI in Dec 2022 - continue vegan / plant-based pancreatic enzyme Assessment & Plan (10/03/2023 9:49 AM EST): - followed by [facility] - no anatomical pancreatic abnormality on MRI in Dec 2022 - continue vegan / plant-based pancreatic enzyme Assessment & Plan (06/07/2023 3:30 PM EDT): - followed by [facility] - no anatomical pancreatic abnormality on MRI in Dec 2022 - continue vegan / plant-based pancreatic enzyme Assessment & Plan (02/24/2023 5:30 AM EDT): - followed by [facility] - no anatomical pancreatic abnormality on MRI in Dec 2022 - continue vegan / plant-based pancreatic enzyme Assessment & Plan (12/18/2022 6:12 PM EST): - followed by [facility] - continue vegan pancreatic enzyme Allergic [...] Plan (01/21/2025 12:33 PM EDT): -Followed by [facility], last seen 01/03/25 -EGD and Colonoscopy on 12/24/21; showed Tubular Adenoma, she was recommended to repeat in 3 years. - pt has been using castor oil - continue trying fiber-rich diet and increasing physical activity as tolerated. - continue Senakot as prescribed Assessment & Plan (07/20/2024 1:50 PM EDT): -Followed by [facility], last seen 08/06/22 -EGD and Colonoscopy on 12/24/21; showed Tubular Adenoma, she was recommended to repeat in 3 years. - pt has been using castor oil - continue trying fiber-rich diet and increasing physical activity as tolerated. - continue Senakot as prescribed Assessment & Plan (01/04/2024 3:38 PM EST): -Followed by [facility], last seen 08/06/22 -EGD and Colonoscopy on 12/24/21; showed Tubular Adenoma, she was recommended to repeat in 3 years. - pt has been using castor oil - continue trying fiber-rich diet and increasing physical activity as tolerated. - continue Senakot as prescribed Assessment & Plan (06/07/2023 3:33 PM EDT): -Followed by [facility], last seen 08/06/22 -EGD and Colonoscopy on 12/24/21; showed Tubular Adenoma, she was recommended to repeat in 3 years. - pt has been using castor oil - continue trying fiber-rich diet and increasing physical activity as tolerated. - continue Senakot as prescribed Assessment & Plan (12/18/2022 6:26 PM EST): -Followed by [facility], last seen 08/06/22 -EGD and Colonoscopy on 12/24/21; showed Tubular Adenoma, she was recommended to repeat in 3 years. - pt has been using castor oil - continue trying fiber-rich diet and increasing physical activity as tolerated. - continue Senakot as prescribed Chronic kidney disease, stage III (moderate) 01/2022 Assessment & Plan (01/21/2025 12:32 PM EDT): - Inner Tube Cutter, Dr. Marci Hylton. Last seen on 01/25/25 - Metformin is discontinued, Dr. Tsai started her on Dapagliflozin (Farxiga) - Previously on Lisinopril, but was disccontinued due to cough / K - Avoid nephrotoxic drugs, including NSAID (no more Aleve) - Renal dose meds Assessment & Plan (07/23/2024 5:41 AM EDT): - Inner Tube Cutter, Dr. Marci Hylton. - Metformin is discontinued, Dr. Tsai started bryn ib Dapagliflozin (Farxiga) - Previously on Lisinopril, but was disccontinued due to cough / K - Avoid nephrotoxic drugs, including NSAID (no more Aleve) - Renal dose meds Assessment & Plan (01/04/2024 3:45 PM EST): - Inner Tube CutterDr. 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 Tsai is prescribing Dapagliflozin (Farxiga) - Previously on Lisinopril, but was disccontinued due to cough / K - Avoid nephrotoxic drugs - Renal dose meds Assessment & Plan (10/03/2023 9:41 AM EST): - Inner Tube CutterDr. 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 Tsai rx Farxiga for DM management - Previously on Lisinopril, but was disccontinued due to cough / K - Avoid nephrotoxic drugs - Renal dose meds - Pt was advised that atorvastatin is not nephrotoxic and it will lower her ASCVD risk. Pt continues to decline statin therapy. Assessment & Plan (06/07/2023 3:34 PM EDT): - Inner Tube CutterDr. 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 Tsai [...] & Plan (02/24/2023 5:37 AM EDT): - Inner Tube CutterDr. Tsai - Lab: 12/24/22 BUN 28, Scr [...] & Plan (12/18/2022 6:31 PM EST): - Inner Tube CutterDr. 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 Eulalio [...] PM EST): -s/p EGD 12/24/21 -followed by [facility] -continue omeprazole 40mg daily -previously tried pantoprazole and lansoprazole; pt prefers omeprazole. -previously prescribed famotidine. Max dose for her renal function is 20 mg daily. Pt does not take it regularly. Assessment & Plan (10/03/2023 9:50 AM EST): -s/p EGD 12/24/21 -followed by [facility] -continue omeprazole 40mg daily -previously tried pantoprazole and lansoprazole; pt prefers omeprazole. -previously prescribed famotidine. Max dose for her renal function is 20 mg daily. Pt does not take it regularly. Assessment & Plan (06/07/2023 3:33 PM EDT): -s/p EGD 12/24/21 -followed by [facility] -continue omeprazole 40mg daily -previously tried pantoprazole and lansoprazole; pt prefers omeprazole. -previously prescribed famotidine. Max dose for her renal function is 20 mg daily. Pt does not take it regularly. Assessment & Plan (12/18/2022 6:28 PM EST): -s/p EGD 12/24/21 -followed by [facility] -continue prantoprazol 40mg daily -previously prescribed famotidine. Max dose for her renal function is 20 mg daily. Irritable bowel syndrome 10/12/2022 Assessment & Plan (07/20/2024 1:50 PM EDT): - followed by [facility] - continue current treatment plan per GI - low FODMAP diet - pt is prescribed simethicone, Sennakot, citrucel, but does not like taking it regularly Assessment & Plan (01/04/2024 3:42 PM EST): - followed by [facility] - continue current treatment plan per GI - low FODMAP diet - pt is prescribed simethicone, Sennakot, citrucel, but does not like taking it regularly Assessment & Plan (10/03/2023 9:49 AM EST): - followed by [facility] - continue current treatment plan per GI - low FODMAP diet - pt is prescribed simethicone, Sennakot, citrucel, but does not like taking it regularly Assessment & Plan (06/07/2023 3:32 PM EDT): - followed by [facility] - continue current treatment plan per GI - low FODMAP diet - pt is prescribed simethicone, Sennakot, citrucel, but does not like taking it regularly Assessment & Plan (12/18/2022 6:27 PM EST): - followed by [facility] - continue current treatment plan per [...] - Prescribed dapagliflozin (Farxiga) from PCP and road repairer, questionable adherence - Discussed about CGM, which she does not want to use it at this time Treatment Hx -Pt has taken GLP-1 agonists and had significant side effects, mainly GI. Pt states she does not want to try any GLP-1 agonist. -Patient Inner Tube Cutter prescribed Farxiga. Patient is taking this medication [...] want to try any GLP-1 agonist. -Patient Inner Tube Cutter prescribed Farxiga. Patient is taking this medication [...] want to try any GLP-1 agonist. -Patient Inner Tube Cutter prescribed Farxiga. Patient is no longer taking [...] want to try any GLP-1 agonist. -Patient Inner Tube Cutter prescribed Farxiga. Patient is no longer taking [...] want to try any GLP-1 agonist. -Patient Inner Tube Cutter prescribed Farxiga. Patient is no longer taking [...] want to try any GLP-1 agonist. -Patient Inner Tube Cutter prescribed Farxiga. Patient is no longer taking [...] organization. Date Type Department Care Team Description 02/15/2025 2:00 PM EDT Office Visit [facility] [place] [address] Joleen Avery MD Viral upper respiratory infection 02/15/2025 Telephone [facility] [address] [place] [address] Joleen Avery MD 02/09/2025 Telephone [facility] [address] [place] [phone] Maranda Serna MD 02/09/[address] [address] Maranda Serna MD 02/07/2025 Orders Only [facility] [address] [place], [place] [address]sudha [facility] [place] [address] Maranda Serna MD Pulmonary nodule (Primary Dx) 01/28/2025 Orders Only [facility] [place] [address] Maranda Serna MD Type 2 diabetes mellitus with hyperglycemia, with long-term current use of insulin ([facility]/HCC) 01/21/2025 Population Health Risk Score [facility] () [address] [phone] Provider, Population Health Generic 01/17/2025 11:00 AM EDT Office Visit [facility] [place] [address] Maranda Serna MD Coronary artery disease of [place] artery of [place] heart with stable angina pectoris (CMS/HCC) (Primary Dx); Stage 3b chronic kidney disease (CMS/HCC); Chronic idiopathic constipation; Type 2 diabetes mellitus with hyperglycemia, with long-term current use of insulin (CMS/HCC); Type 2 diabetes mellitus with stage 3b chronic kidney disease, with long-term current use of insulin (CMS/HCC); Dyslipidemia; Anemia due to stage 3b chronic kidney disease (CMS/HCC) (CMS/HCC) 01/17/2025 Travel 01/13/2025 Orders Only [facility] [address] [facility] [place] [address] Maranda Serna MD Pulmonary nodule (Primary Dx) 01/13/2025 Telephone [facility] [place] [address] Maranda Serna MD chart prep 01/12/2025 Refill [facility] [place] [address] Yesica Naylor MD 12/23/2024 Orders Only GENERIC EXTERNAL DATA DEPARTMENT Provider, Generic External Data 12/14/2024 Refill [facility] [place] [address] Maranda Serna MD Type 2 diabetes mellitus with hyperglycemia, with long-term current use of insulin ([facility]) 12/13/2024 Refill [facility] [place] [address] Maranda Serna MD 12/08/2024 Telephone [facility] [address] [place] [phone] Maranda Serna MD Transition Of Care (Tcm) (HDF- Unscheduled THIRD LVM) 12/07/2024 Telephone [facility] [address] [place] [phone] Maranda Serna MD Hospital Follow-up 12/02/2024 Patient Outreach [facility] [address] [place] [phone] Maranda Serna MD Transition Of Care (Tcm) (HDF- Unscheduled second LVM) 12/01/2024 Patient Outreach [facility] [address] [place] [phone] Maranda Serna MD Transition Of Care (Tcm) (HDF- unscheduled LVM ) 11/27/2024 Orders Only [facility] External Provider, [facility] 11/25/2024 Telephone [facility] [place] [address] Ayse Arce [place] December recall from Last 3 Months Immunizations Name Administration [...] 02/15/2025 1:23 PM ED T Respiratory Rate 23 01/17/2025 11:2 2 AM EDT Oxygen Saturation 98% 02/15/2025 1:23 PM EDT Inhaled Oxygen Concentration - - Weight 91.5 kg (201 lb 12.8 oz) 02/15/2025 1:23 PM EDT Height 160.1 cm (5' 3.04 ) 01/17/2025 1 1:22 AM EDT Body Mass Index 35.7 01/17/2025 11:22 AM EDT Plan of Treatment [...] PM EDT Viral upper respiratory infection POCT GLYCOSYLATED HEMOGLOBIN (HGB A1C) Routine 01/17/2025 11:29 AM EDT Type 2 diabetes mellitus with hyperglycemia, with long-term current use of insulin ([facility]) POCT GLUCOSE Routine 01/17/2025 11:29 AM EDT Type 2 diabetes mellitus with hyperglycemia, with long-term current use of insulin ([facility]) CULTURE, URINE, ROUTINE Routine 12/23/2024 1:00 PM [...] hyperglycemia, with long-term current use of insulin ([facility]) Dyslipidemia HM COLONOSCOPY Routine 07/07/2022 from Last 3 Months or Most Recently Relevant to Health Maintenance Results * ECG 12 lead (02/15/2025 2:15 PM EDT) Narrative Joleen Avery MD - 02/15/2025 2:15 PM EDT . EKG showed sinus tachycardia, rate 103 beats per minute, low-voltage QRS, possible inferior Infarct similar to ECG 01/19/25 us Joleen Avery MD ECG ORDERABLES Final Resu lt * XR Chest 2 Views (02/15/2025 2:03 PM EDT) Only the most recent of2 resultswithin the time period is included. Anatomical Region Laterality Modality Chest Radiographic Mary ging 02/15/2025 2:03 PM EDT Narrative 02/15/2025 2:22 PM EDT ?[facility] ?[address] ?[place] [address] ?XRay Report ? Signed ? Patient: Reji,Ese ?MR#: [id number] ?? 8 ? : 1960 ?Acct:[id number] ? Age/Sex: 64 / F ?ADM Date: 04/08/25 ? Loc: HO.HHCX ? Attending Dr: Joleen Avery MD ? Ordering Physician: Joleen Avery MD ?? Date of Service: 02/15/25 ?? Procedure(s): XR chest 2V ?? Accession Number(s): [id number] ? cc: Joleen Avery MD ? EXAMINATION: [...] DD/ 1403 ? TD/TT: 02/15/25 1405 ? Dairy Department Manager: ? Procedure Note Ezekiel, Image - 02/15/[address] [address] XRay Report Signed Patient: Ese MendozaMR#: [id number] 8 : 1960Acct:[id number] Age/Sex: 64 / FADM Date: 02/15/25 Loc: HO.HHCX Attending Dr: Joleen Avery MD Ordering Physician: Joleen Avery MD Date of Service: 02/15/25 Procedure(s): XR chest 2V Accession Number(s): [id number] cc: Joleen Avery MD EXAMINATION: XR CHEST [...] Mark MD in OV> 02/15/25 1420 DD/ 1403 TD/TT: 02/15/25 1405 Dairy Department Manager: Joleen Avery MD IMG XR PROCEDURES Final Re sult * Influenza B (ID NOW Rapid Molecular) (02/15/2025 1:46 PM EDT) Influenza B Negative Negative, Indeterminate [facility] Swab 02/15/2025 1:46 PM EDT Joleen Avery MD POINT OF CARE TEST ENTER/E DIT ORDERABLES Final Result Performing Organization Address City/[facility]/ZIP Co de Phone Number [facility] [address] [place] [phone] * Influenza A (ID NOW Rapid Molecular) (02/15/2025 1:46 PM EDT) Pathologist [facility] Influenza A Negative Negative, Indeterminate [facility] Swab 02/15/2025 1:46 PM EDT Joleen Avery MD POINT OF CARE TEST ENTER/E DIT ORDERABLES Final Result Performing Organization Address [facility]/ZIP Co de Phone Number [facility] [address] [place] [phone] * POCT Rapid COVID Ag (02/15/2025 1:46 PM EDT) Pathologist [facility] Rapid COVID Ag Negative Swab 02/15/2025 1:46 PM EDT Joleen Avery MD POINT OF CARE TEST ENTER/E DIT ORDERABLES Final Result * (ABNORMAL) POCT glycosylated hemoglobin (Hgb A1c) (01/17/2025 11:29 AM EDT) Pathologist [facility] Hemoglobin A1C 9.0(A) 4.0 - 6.0 % QC Media Lot # [id number] Lot# Expiration Date Blood Capillary blood specimen / Unknown 01/17/2025 11:29 AM EDT Maranda Serna MD POINT OF CARE TEST ENTER/EDIT OR DERABLES Final Result * (ABNORMAL) POCT glucose manually resulted (01/17/2025 11:29 AM EDT) [facility] Glucose Blood, POC 235(A) 60 - 200 [...] 1:00 PM EST 12/23/2024 4:59 PM EST Comment:[facility] Narrative [facility] - 12/26/2024 7:26 AM EST Escherichia coli Quant > 100,000 cfu/mL Escherichia coli: Ampicillin 8(S) Escherichia coli: Cefazolin (Urine) 2(S) Escherichia coli: Cefepime <=0.12(S) Escherichia coli: Ceftriaxone <=0.25(S) Escherichia coli: Ciprofloxacin <=0.06(S) Escherichia coli: Gentamicin <=1(S) Escherichia coli: Nitrofurantoin <=16(S) Escherichia coli: Trimethoprim/Sulfamethoxazole <=20(S) Specimen Source: Urine clean catch Generic External Data Provider LAB MICROBIOLOGY - GENERAL ORDERABLES Final Result [facility] [address] [place] [phone] * CT Chest w/o Contrast (11/27/2024 8:28 PM EST) Anatomical Region Laterality Modality Body, Chest Computed Tomogra phy 11/27/2024 8:28 PM EST Narrative 11/27/2024 8:30 PM EST ? [facility] ?[address] ?[place] [address] ? CT Scan Report ? Signed ? Patient: Ese Mendoza ?MR#: [id number] ?? 8 ? : 1960 ?Acct:[id number] ? Age/Sex: 64 / F ?ADM Date: 11/27/24 ? Loc: HO.ED ? Attending Dr: ? Ordering Physician: Rajwinder Bhatti CNP ?? Date of Service: 11/27/24 ?? Procedure(s): CT chest wo IV con ?? Accession Number(s): [id number] ? cc: Rajwinder Bhatti CNP; Maranda Serna MD ? Report Number: ?? [id number]: Total DLP = ??543.00 mGy-cm ? CLINICAL HISTORY: cp, sob ? CT chest without contrast ? Comparison: CT - CHEST WITHOUT CONTRAST [id number] - 12/22/07 00:00 EST ? Findings: The [...] ? DD/ 27 ? TD/TT: 11/27/242027 ? Dairy Department Manager: ? Procedure Note Ezekiel, Image - 11/27/[address] [address] [address] Scan Report Signed Patient: Ese MnedozaMR#: [id number] 8 : 1960Acct:[id number] Age/Sex: 64 / FADM Date: 11/27/24 Loc: HO.ED Attending Dr: Ordering Physician: Rajwinder Bhatti CNP Date of Service: 11/27/24 Procedure(s): CT chest wo IV con Accession Number(s): [id number] cc: Rajwinder Bhatti CNP; Maranda Serna MD Report Number: [id number]: Total DLP = 543.00 mGy-cm CLINICAL HISTORY: cp, sob CT chest without contrast Comparison: CT - CHEST WITHOUT CONTRAST [id number] - 12/22/07 00:00 EST Findings: The prior [...] in OV> 11/27/242028 DD/ 27 TD/TT: 11/27/242027 Dairy Department Manager: [facility] External Provider IMG CT PROCEDURES Edited Result - Final * Lactic Acid (11/27/2024 5:48 PM EST) Lactic Acid 1.2 0.5 - 2.0 mmol/L [facility] 11/27/2024 5:48 PM EST 11/27/2024 5:54 PM EST Generic External Data Provider LAB BLOOD ORDERAB LES Final Result [facility] [address] [place] [phone] * (ABNORMAL) High Sensitivity Troponin I (11/27/2024 4:48 PM EST) Only the most recent of2 resultswithin the time period is included. TROPONIN I HIGH SENSITIVITY 743.6(HH) <3.5 - 17.0 ng/L [facility] Comment:Critical value for t est(s): TROP Results called to and readback by: VICKIE Person calling: [email or web address] Date: 11/27/24Time: 1717The [facility]illo high sensitivity Troponin-I results should beused in conjunction with other diagnostic information suchas ECG, clinical observations and information, and patientsymptoms to aid in the diagnosis of CO. 11/27/2024 4:48 PM EST 11/27/2024 4:52 PM EST Generic External Data Provider LAB BLOOD ORDERAB LES Final Result Performing Organization Address [facility] de Phone Number [facility] [address] [place] [phone] * (ABNORMAL) C-reactive Protein (11/27/2024 2:07 PM EST) Pathologist [facility] C Reactive Protein 4.57(H) < or = 0.50 mg/dL [facility] 11/27/2024 2:07 PM EST 11/27/2024 2:10 PM EST Generic External Data Provider LAB BLOOD ORDERAB LES Final Result Performing Organization Address [facility] de Phone Number [facility] [address] [place] [phone] * (ABNORMAL) Comprehensive Metabolic Panel (11/27/2024 2:07 PM EST) Pathologist [facility] Sodium 140 135 - 145 mmol/L [facility] Potassium 4.0 3.3 - 5.1 mmol/L [facility] Chloride 108 96 - 108 mmol/L [facility] Carbon Dioxide 26 22 - 29 mmol/L [facility] Anion Gap 10(L) 12 - 20 [facility] Urea Nitrogen (BUN) 32(H) 9 - 16 mg/dL [facility] Creatinine, Serum 1.60(H) 0.5 - 1.4 mg/dL [facility] Creatinine Clr Calc Pharmacy 36.8 [facility] Comment:Provided height and weight: 157.48 cm,89.1 kg.eGFR (calculated from the MDRD study equation) and eCrCl(calculated from the Cockcroft-Gault equation) are based ondifferent parameters and may not yield comparable results.If eCrCl result is absurd, please check patient'sheight/weight. Estimated Glomerular Filt Rate 32 [facility] Comment:Chronic Kidney Disea se: Estimated GFR < 60 mL/min/[id number] Kidney Disease: Estimated GFR < 15 mL/min/1.73m2 Glucose 149(H) 60 - 115 mg/dL [facility] Calcium 8.6 8.4 - 10.2 mg/dL [facility] Bilirubin, Total 0.4 0.0 - 1.0 mg/dL [facility] Aspartate Amino Transferase 22 5 - 31 U/L [facility] Alanine Aminotransferase 9 0 - 31 U/L [facility] Total Protein 6.7 6.5 - 8.0 g/dL [facility] Albumin Level 3.5 3.5 - 5.0 g/dL [facility] Alkaline Phosphatase 108 39 - 117 U/L [facility] 11/27/2024 2:07 PM EST 11/27/2024 2:10 PM EST us Generic External Data Provider LAB BLOOD ORDERAB LES Final Result [facility] [address] [place], [place] [phone] * D Dimer High Sensitivity (11/27/2024 2:06 PM EST) D Dimer High Sensitivity 204 NG/ML [facility] Comment:D-DIMER HS REFERENCE RANGENote: Our [...] Provider LAB BLOOD ORDERAB LES Final Result [facility] [address] [place] [address] [phone] * (ABNORMAL) CBC auto differential (11/27/2024 2:06 PM EST) White Blood Count 14.0(H) 4.8 - 10.8 X10*3/uL [facility] Red Blood Count 4.15(L) 4.20 - 5.50 X10*6/uL [facility] Hemoglobin 12.0 12.0 - 16.0 g/dl [facility] Hematocrit 36.9(L) 37.0 - 47.0 % [facility] Mean Corpuscular Volume 88.9 80.0 - 98.0 fL [facility] Mean Corpuscular Hemoglobin 28.9 27.0 - 33.0 pg [facility] Mean Corpuscular HGB Conc 32.5 31.0 - 35.0 g/dl [facility] Red Cell Distribution Width 15.7 11.0 - 16.0 % [facility] Platelet Count 294 160 - 400 X10*3/uL [facility] Mean Platelet Volume 11.3 9.4 - 12.3 fL [facility] Neutrophils Percent Auto 76.2(H) 45 - 73 % [facility] Imm Gran Pct Auto 0.4 0.0 - 0.4 % [facility] Lymphocytes Percent Auto 15.8(L) 20 - 40 % [facility] Monocytes Percent Auto 6.2 2 - 11 % [facility] Eosinophils Percent Auto 1.0 0 - 4 % [facility] Basophils Percent Auto 0.4 0 - 2 % [facility] NRBC Pct Auto 0.0 0.0 - 0.2 /100WBC [facility] Neutrophils Absolute Auto 10.7(H) 2.0 - 8.3 x10*3/uL [facility] Imm Gran Abs Auto 0.06(H) 0.00 - 0.03 X10*3/uL [facility] Lymphocytes Absolute Auto 2.2 1.2 - 4.9 X10*3/uL [facility] Monocytes Absolute Auto 0.9 0.1 - 1.2 X10*3/uL [facility] Eosinophils Absolute Auto 0.1 0.0 - 0.4 X10*3/uL [facility] Basophils Absolute Auto 0.1 0.0 - 0.2 X10*3/uL [facility] NRBC Abs Auto 0.000 0.0 - 0.012 X10*3/uL [facility] 11/27/2024 2:06 PM EST 11/27/2024 2:10 PM EST us Generic External Data Provider LAB BLOOD ORDERAB LES Final Result Performing Organization Address City/State/[facility] Co de Phone Number [facility] [address] [place] [phone] * Prothrombin Time-INR (11/27/2024 2:06 PM EST) Prothrombin Time 12.1 10.9 - 12.4 SEC [facility] INTERNATIONAL NORM RATIO 1.0 0.9 - 1.1 [facility] Comment:INTERNATIONAL NORMAL IZED RATIO (INR) [...] ORDERAB LES Final Result Performing Organization Address [facility] Co de Phone Number [facility] [address] [place] [phone] * (ABNORMAL) B Type Natriuretic Peptide (BNP) (11/27/2024 2:06 PM EST) B Type Natriuretic Peptide 171(H) <100 pg/mL [facility] Comment:For those patients w ho are being treated with Natrecor(nesiritide, recombinant BNP), BNP testing should beperformed at least two hours post treatment in order toensure that only endogenous levels of BNP are detected. 11/27/2024 2:06 PM EST 11/27/2024 2:10 PM EST Generic External Data Provider LAB BLOOD ORDERAB LES Final Result Performing Organization Address [facility] de Phone Number [facility] [address] [place] [phone] * SARS-CoV-2 RNA, Influenza A/B, and RSV RNA, Ql NAAT (11/27/2024 12:43 PM EST) Pathologist [facility] Influenza A PCR NEGATIVE Negative [facility] Influenza B PCR NEGATIVE Negative [facility] Resp Syncy Virus RNA Qual PCR NEGATIVE Negative [facility] SARS COV2 PCR NEGATIVE Negative [facility] Comment:All test results mus t [...] use by authorized laboratories.Testing performed on the Norse GeneXpert utilizingreal-time RT-PCR.All SARS CoV2 and positive influenza A/B results arereported to [facility]. 11/27/2024 12:4 3 PM EST 11/27/2024 12:51 PM EST us Generic External Data Provider LAB MICROBIOLOGY - GENERAL ORDERABLES Final Result [facility] [address] [place] [address] [phone] * BI Mammogram Screening Tomosynthesis Bilateral (02/10/2024 2:40 PM EDT) Anatomical Region Laterality Modality Breast Bilateral Mammography 02/10/2024 2:40 PM EDT Narrative 02/22/2024 3:43 PM EDT ? [facility] ? [address] ?[place] [address] ? Mammography Report ? Signed ? Patient: Reji,Ese ?MR#: [id number] ?? 8 ? : 1960 ?Acct:[id number] ? Age/Sex: 63 / F ?ADM Date: 02/10/24 ? Loc: HO.MAMMO ? Attending Dr: Maranda Serna MD ? Ordering Physician: Kareem,Maranda MD ?Results: 1Negative ? Date of Service: 02/10/24 ?Follow Up: 1 Year From Orig ?? inal Mammogram ? Procedure(s): MM tomosynthesis screening BI ?? Accession Number(s): [id number] ? cc: Maranda Serna MD ? EXAMINATION: [...] These include several, bilateral, ?? benign macrocalcifications inbound sales representative of fat necrosis. ? MM/MM [...] 1539 ? DD/ 1440 ? TD/TT: ? Dairy Department Manager: ? Procedure Note Constantin Falcon - 02/22/2024 [place] [facility] [address] [place], [place] [address] Mammography Report Signed Patient: Ese Mendoza#: [id number] 8 : 1960Acct:[id number] Age/Sex: 63 / FADM Date: 02/10/24 Loc: HO.MAMMO Attending Dr: Maranda Serna MD Ordering Physician: Maranda Serna MDResults: 1Negative Date of Service: 02/10/24Follow Up: 1 Year From [facility] ina Mammogram Procedure(s): MM tomosynthesis screening BI Accession Number(s): [id number] cc: Maranda Serna MD EXAMINATION: MM SCREENING [...] present. These include several, bilateral, benign macrocalcifications inbound sales representative of fat necrosis. MM/MM tomosynthesis [...] in OV> 02/22/24 1539 DD/ 1440 TD/TT: Dairy Department Manager: us Maranda Serna MD IM BI PROCEDURES Edited Result - Final * (ABNORMAL) Lipid Panel with Reflex to Direct LDL (12/30/2023 4:50 PM EST) Triglycerides 177(H) <150 mg/dL [facility] Comment:Desirable Triglyceri de: less than 150 mg/dLBorderline High Triglyceride 150-199 mg/dLHigh Triglyceride: 200-499 mg/dLVery High Triglyceride: greater than or equal to 5OO mg/dL Cholesterol 235(H) <200 mg/dL [facility] Comment:Desirable Cholestero l: less than 200 mg/dLBorderline High Cholesterol: 200-239 mg/dLHigh Cholesterol: greater than 239 mg/dL LDL Cholesterol Calculated 151(H) <100 mg/dL [facility] Comment:Desirable LDL: less than 100 mg/dLNear Optimal/Above Optimal LDL: 110- 129 mg/dLBorderline High LDL: 130-159 mg/dLHigh LDL: 160-189 mg/dLVery High LDL: greater than or equal to 190 mg/dL HDL Cholesterol 49 >40 mg/dL [facility] Comment:Desirable HDL: great er than 40 mg/dL Note: This HDL assay may give artificially low results in patients with liver disease. Blood 12/30/2023 4:50 PM EST 12/30/2023 5:26 PM EST Maranda Serna MD LAB BLOOD ORDERABLES Final Resul t [facility] [address] [place] [address] [phone] * (ABNORMAL) Hm Colonoscopy (07/07/2022) Colonoscopy Abnormal(A ) Normal [facility] External Provider HEALTH MAINTENANCE Final Result from Last 3 Months or Most Recently Relevant to Health Maintenance Insurance [facility] STANDARD Care Teams Nickel Plant Operator Relationship Specialty Start Date End Date Maranda Serna MD [address] [place] [phone] PCP - General Family Medicine 08/01/21
--- OUTSIDE RECORDS SUMMARY | 2025-02-15 17:09 | XMS_ITS | Encounter Summary ---
Author Organization [employer] Address [address] [place] [address] Care Team Providers Care Real Estate Economist Name Role Phone Maranda Serna MD Primary Care Provider [phone] Encounter Details Date Type Department Care Team ([facility] st Contact Info) Description 01/13/2025 Orders Only [facility] MEDICINE [address] [place] [address] Maranda Serna MD [address] [place], [place] [phone] Pulmonary nodule (Primary Dx) Social History Tobacco [...] documented as of this encounter Care Teams Real Estate Economist Relationship Specialty Start Date End Date Maranda Serna MD [address] [place] [address] PCP - General Family Medicine 08/01/21 documented as of this encounter
--- OUTSIDE RECORDS SUMMARY | 2025-02-15 17:10 | XMS_ITS | Encounter Summary ---
Author Organization [facility] Address [address] [facility] [address] [place] [address] Phone Care Team Providers Care Tunnel Elastic Operator Chainstitch Name Role Phone Maranda Serna MD Primary Care Provider [phone] Encounter Details Date Type Department Care Team (Late st Contact Info) Description 05/17/2024 Office Communication [facility] [address] [place] [address] Marci Gleason ARNP [address] [address] Social History Tobacco Use Types Packs/Day Years Used Date Smoking Tobacco: Never Smokeless Tobacco: Never Alcohol Use Standard Drinks/Week Comments Yes 0 (1 standard drink = 0.6 oz pure alcohol) Intermittently Hot Amanda. Tea with Beauregard only if sick Comments Unknown Sex and [...] Visit [facility] [address] [facility] [address] [place] [address] Marci Gleason ARNP [address] [facility] [address] [place] [address] documented as of this encounter Visit Diagnoses Not on filedocumented in this encounter Care Teams Tunnel Elastic Operator Chainstitch Relationship Specialty Start Date End Date Maranda Serna MD [address] [place] [address] PCP - General Family Medicine 08/24/21 documented as of this encounter
--- OUTSIDE RECORDS SUMMARY | 2025-02-15 17:10 | XMS_ITS | Encounter Summary ---
Author Organization [employer] Address [address] [facility] 7[address] [place] [address] Care Team Providers Care Financial Administration Officer Name Role Phone Maranda Serna MD Primary Care Provider [phone] Reason for Visit * Reason Onset Date Comments Appointment Request 05/28/2024 Encounter Details Date Type Department Care Team ([facility] st Contact Info) Description 05/28/2024 Telephone [facility] MEDICINE [address] [place], [place] [phone] Maranda Serna MD [address] [place], [place] [phone] Appointment Request Social History Tobacco Use Types [...] documented as of this encounter Care Teams Financial Administration Officer Relationship Specialty Start Date End Date Maranda Serna MD [address] [place] [address] PCP - General Family Medicine 08/01/21 documented as of this encounter
--- OUTSIDE RECORDS SUMMARY | 2025-02-15 17:10 | XMS_ITS | Encounter Summary ---
Author Organization [facility] Address [address] [place] [address] Care Team Providers Care Professor Of Business Administration Name Role Phone Viet Sánchez Unavailable [phone] Viet Sánchez Primary Care Provider Encounter Details Date Type Department Care Team (Late st Contact Info) Description 02/18/2020 Scanned Document [facility] [address] [place] [phone] Provider, Sheryl, [address] [place] [address] Social History Tobacco Use Types Packs/Day Years [...] on filedocumented in this encounter Care Teams Professor Of Business Administration Relationship Specialty Start Date End Date Viet Sánchez PA [address] [place] [address] PCP - General 06/18/18 Viet Sánchez PA [address] [place] [address] 06/18/18 documented as of this encounter
--- OUTSIDE RECORDS SUMMARY | 2025-02-15 17:10 | XMS_ITS | Clinical Summary ---
Author Organization [facility] Address [address] [place] [address] Care Team Providers Care Cash Management Officer Name Role Phone Viet Sánchez Unavailable [phone] Viet Sánchez Primary Care Provider [phone] Allergies Active Allergy Reactions Criticality Noted Date [...] Active Problems Problem Noted Date Diagnosed Date snf current use of insulin 11/22/2019 Diabetic peripheral [...] this topic Medical Devices Implanted Type Area Sas Clinical Programmer Device Identifier Shelf Expiration Date Model / Serial / Lot [id number].[id number] Lens Iol 0 D +21.5 Brianda Mod L Bcnvx 13mm 6mm Posterior - [id number] Implanted:Qty: 1 on 01/27/2020 by Obinna Lorenzana MD at [facility] [place] Lens [employer] [id number] .[id number] / [id number] / Procedures Procedure Name Priority Date/Time Associated [...] 12:01 PM 01/27/2020 12:06 PM Care Teams Cash Management Officer Relationship Specialty Start Date End Date Viet Sánchez PA [address] [place] [address] PCP - General 06/18/18 Viet Sánchez PA [address] [place] [address] 06/18/18
--- OUTSIDE RECORDS SUMMARY | 2025-02-15 17:10 | XMS_ITS | Encounter Summary ---
Author Organization [facility] Address [address] [place] [address] Care Team Providers Care Agent Based Modeler Name Role Phone Viet Sánchez Unavailable [phone] Viet Sánchez Primary Care Provider Encounter Details Date Type Department Care Team (Late st Contact Info) Description 05/22/2020 Scanned Document [facility] [address] [phone] Deja Rico, [place] [address] Social History Tobacco Use Types Packs/Day Years [...] on filedocumented in this encounter Care Teams Agent Based Modeler Relationship Specialty Start Date End Date Viet Sánchez PA [address] [place] [address] PCP - General 06/18/18 Vite Sánchez PA [address] [place] [address] 06/18/18 documented as of this encounter
--- OUTSIDE RECORDS SUMMARY | 2025-02-15 17:10 | XMS_ITS | Encounter Summary ---
Author Organization [employer] Address [address] [facility] 7t [place] [address] Care Team Providers Care Insole Lip Turner Name Role Phone Maranda Serna MD Primary Care Provider [phone] Reason for Visit * Reason Onset Date Comments Durable Medical Equipment 05/26/2024 Encounter Details Date Type Department Care Team ([facility] st Contact Info) Description 05/26/2024 Telephone [facility] MEDICINE [address] [place], [place] [phone] Maranda Serna MD [address] [place], [place] [phone] Durable Medical Equipment Social History Tobacco Use [...] walker. Pt stated she was advised by software quality engineer jigneshow up with orthopedic and they prescribed a walker for the pt. Pt wants script send over to [facility] [address] If any questions you can contact pt at [phone]. documented in this encounter Plan of Treatment Not on file documented as of this encounter Visit Diagnoses Not on filedocumented in this encounter Additional Health Concerns Assessment Noted Time PHQ-9 Depression Total Score: 6 10/23/20 22 10:04 AM EST documented as of this encounter Care Teams Insole Lip Turner Relationship Specialty Start Date End Date Maranda Serna MD [address] [place] [address] PCP - General Family Medicine 08/01/21 documented as of this encounter
--- OUTSIDE RECORDS SUMMARY | 2025-02-15 17:10 | XMS_ITS | Encounter Summary ---
Author Organization [facility] Address [address] [place] [address] Care Team Providers Care Secondary Special Education Teacher Name Role Phone Viet Sánchez Unavailable [phone] Viet Sánchez Primary Care Provider [phone] Encounter Details Date Type Department Care Team (Late st Contact Info) Description 02/02/2020 Prep for Surgery OPHTHALMOLOGY [address] [place] [address] Holland Hunt MD 85 [facility] [address] [facility] [place] [phone] Social History Tobacco Use Types Packs/Day Years [...] on filedocumented in this encounter Care Teams Secondary Special Education Teacher Relationship Specialty Start Date End Date Viet Sánchez PA [address] [place] [address] PCP - General 06/18/18 Viet Sánchez PA [address] [place] [address] 06/18/18 documented as of this encounter
--- OUTSIDE RECORDS SUMMARY | 2025-02-15 17:10 | XMS_ITS | Clinical Summary ---
Author Organization [facility] Address [address] [place] [address] Care Team Providers Care Leather Crafter Name Role Phone ChapispriscillaViet Primary Care Provider [phone] Allergies Active Allergy Reactions Criticality Noted Date [...] age to complete this topic Care Teams Leather Crafter Relationship Specialty Start Date End Date Viet Sánchez [address] [place] [address] PCP - General Medical Services 06/19/18
--- OUTSIDE RECORDS SUMMARY | 2025-02-15 17:10 | XMS_ITS | Data Portability ---
Author Organization [place] [facility] Address [address] [address] Assessment No assessment recorded. Plan of Treatment Reminders Order Date Submit Date Provider Last Modified By Organization Details Last Modified Time Details Appointments Test Results 2024 04:00P M GENARO Barrett MD Not available Not available Not available Lab None recorded. Referral None recorded. Procedures None recorded. Surgeries None recorded. Imaging CT, neck, soft tissue, w/ contrast - evaluate lingual tonsil hyperophy 2023 024 [facility], [address] [place] [address], [address], 07/01/2024 12:06:24 [place], modified barium swallow study 2023 024 [facility], [address] [place] [address], [address], 07/29/2024 15:47:26 Medication Orders None recorded. Patient TargetsNo targets recorded. Patient InstructionsNo instructions recorded. Reason for Referral None Reported. Results Created Date Observation Date Name Description Value Unit Range Abnormal Flag Note LastModifiedBy Organization Detail LastModifiedTime 07/29/2007/29/2024 [place], modif ied izaiah mccabe ow study No observ ation [facility] [address], [place], [address], 08/02/2024 14:43:11 09/28/20 24 09/25/2024 MRI, head + neck + orbit s, w/wo contr ast [facility] Access ion Number : [id number] Patien t Name: Ese Mendoza Record Number : [id number] Date of : 1959 Date of Exam: 2023 Referr daniel Physic oliver: Vineet nicholas, [facility] [place] [address] [place] [address] Exam: MR Orbits , Face, Neck (C-/C+ ) CPT 09113 Room Descri ption: [place] GE Pion 3T MRI of the soft [...] Electr onical ly Signed By: Vikram mike [facility] ([facility] [address], [place], [address], 10/01/2024 16:52:47 Result Notes None recorded. 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 Procedures Surgical History Date Name Laterality Status Provider Name and Address Organization Details Recorded Time 07/01/2024 FFL_RE completed GENARO PELAEZ MD [address] [address], [place], [address], [facility] [place] 07/01/2024 12:01:28 Imaging Results Imaging Date Name Status LastModified by Organiz ation Details LastModified Time 07/29/2024 [place], modified barium swallow study completed [facility] [address] [address], [place], [address], 08/02/2024 14:43:11 09/25/2024 MRI, head + neck + orbits, w/wo contrast completed [facility] [address] [facility] [place], [address], 10/01/2024 16:52:47 Procedure Notes None recorded. Medical Equipment None Reported. Allergies Allergen ID Allergen Name Allergen Category Reaction Reaction Severity Criticality Documentation Date Start Date Code Code System Note Provider Name and Address Organization Details Recorded Time 958879 rubber, unspecifi ed environme nt,medica tion Not available Not available Not available 07/01/2024 61556 5 UNK Ashu quesada [place] - [facility] 4 11:45:16 115948 pork allergeni c extract food,medi cation Not available Not available Not available 07/01/2024 62196 8 RxNorm Ashu quesada [place] - [facility] 4 11:45:41 Medications Name Sig Start Date [...] Available Not Available No t Available FreeStyle Plaquemine Lite kit USE DIRECTED TO TEST BLOOD [...] Available No t Available FreeStyle Doug [address] [place] USE DIRECTED active Not Available Not Available No t Available Vitals Date Recorded Body height Body mass index (BMI) Body weight Provider Name and Address Organization Details Last Updated DateTime 07/01/2024 157.48 cm 38.4 kg/m2 85403.4 g Ashu Ramríez [facility] 07/01/2024 11:54:39 Social History None recorded. Functional Status None recorded. Mental Status None recorded. Family History Nothing Reported. Medical History No medical history recorded. Gynecological HistoryNo gynecological history recorded. Obstetrics History GPAL:G 0 P 0 0 0 0 Past Encounters Encounter ID Performer Location Encounter Start Date Encounter Closed Date Diagnosis/Indication Diagnosis SNOMED-CT Code Diagnosis ICD10 Code Diagnosis Note [id number] GENARO PELAEZ MD [facility] [address] [place] [address] 07/01/2024 11:04:43 07/01/2024 12:01:09 Oropharyngeal dysphagia 06001346 R13.12 I recommend an MBS to better evaluate. Benign joy plasm of oropharynx 38122986 D10.5 she has symmetric lingual tonsil hypertroph y on laryngosoc py. I will evaluate with a contrasted CT to make sure there are no tumors. Dysphagia 28804312 R13.1 0 see above Health Concerns Section Related Observation LastModified by Organization Detai ls LastModified Time None Recorded Concern Status LastModified by Organization Details LastModified Time None Recorded Advance Directives Directive None Recorded Payers Encounter Date Sequence Insurance Name Policy Number Policy Singer Covered Member ID Singer Member ID Guarantor Name 07/01/2024 1 [place] [facility] Ese Mendoza [id number] Ese Mendoza Notes Date Note Type Note [...] Takes omeprazole for GERD. GENARO PELAEZ MD [address] [place] [address], [phone], [place] - [facility] 07/01/2024 12:04:21 OBGyn Episode No OBEpisode recorded.
--- OUTSIDE RECORDS SUMMARY | 2025-02-15 17:10 | XMS_ITS | Clinical Summary ---
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 - Will obtain lab work. Also curious to see radiographic imaging of the hands, feets, SI and lumbar spine. Will obtain interval history from transitions rn care coordinator Karlee Le. - RTC in 4 months - she is to continue with mtx 4 tabs qweekly and folic acid Ulcer of foot 07/19/2011 07/22/2022 Encounters Date Type Department Care Team Description 01/26/2025 Refill [facility] [address] [place] [phone] Shasha Delacruz MA 01/25/2025 2:45 PM EDT Office Visit [facility] [address] [phone] Marci Gleason ARNP Stage 3b chronic kidney disease (HCC) (Primary Dx); Anemia in chronic kidney disease; Proteinuria, not otherwise specified 01/25/2025 Office Communication [facility] [address] [phone] Marci Gleason ARNP from Last 3 Months [...] pure alcohol) Intermittently Hot Amanda. Tea with [place] only if sick Comments Unknown Sex and [...] Office Visit [facility] P.CLauryn [address] [phone] GleasonMarciRAMONA [address] [phone] Health Maintenance Due Date Last [...] , 09/24/2021, Additional history exists Insurance [address] [place] [id number] [place] Care Teams Nutritional Services Host Relationship Specialty Start Date End Date Maranda Serna MD [address] [place] [id number] PCP - General Family Medicine 08/24/21
--- OUTSIDE RECORDS SUMMARY | 2025-02-15 17:10 | XMS_ITS | Patient Health Record ---
Author Organization [facility] Address [address] [facility] [id number] [address] Care Team Providers Care Application Integration Specialist Name Role Phone Larisa Saldana Primary Care [...] diabetes mellitus without complications (E11.9) Active confirmed 825388705 Problem Type 2 diabetes mellitus with diabetic polyneuropathy (E11.42) Active confirmed 85256964 Problem Other chronic pain (G89.29) Active confirmed 61343609 Problem Age-related nuclear cataract, bilateral (H25.13) Active confirmed Nuclear senile cataract (337656267) Problem Diabetes (E11.9) Active confirmed Type II diabetes mellitus without complication (633210628) Problem Dyslipidemia (E78.5) Active confirmed 816054893 Problem HTN (hypertension) (I10) Active confirmed Hypertension (75986276) Problem Arthritis (M19.90) Active confirmed 372 3001 Problem snf current use of insulin (Z79.4) Active confirmed 178182983 Problem Controlled diabetes mellitus with diabetic neuropathy (E11.40) Active confirmed Diabetic peripheral neuropathy associated with type 2 diabetes mellitus (3243588498594) Problem Type 2 diabetes mellitus with mild nonproliferative diabetic retinopathy without macular edema, bilateral (E11.3293) Active confirmed Mild nonproliferative retinopathy due to type 2 diabetes mellitus (308830598690976) Problem Left retinal detachment (H33.22) Active confirmed Serous r etinal detachment (50745501) Problem Menopausal and postmenopausal disorder (N95.9) Active confirmed 249675867 PLAN OF TREATMENT Pending Test Test Name [...] End Date MACKENZIE Hughes [address] [place] [id number] Ese Mendoza Self - patient is the insured MEDICAID DENTAL [address] [place] [address] [id number] Ese Mendoza Self - patient is the insured MEDICAL (GENERAL) HISTORY Medical History History ICD Code DM II RANJAN Pulmonary Artery Hypertesion Mild Mitral Incompetence Moderate carotid artery disease Surgical History Surgery Date(Month/Year) gallbladder 1982 tubal 1984 foot surgery metal plate right foot clef t 2010 breast reduction 2009 partial hysto,left ovaries Hospitalization History Reason Date(Month/Year) for above
== END 2025-02-15 14:03 | disposition home or self-care (01) ==
LOC: HO.HHCX 14:02
PROVIDERS: Visit Provider Family Medicine
DX: R05.9 Cough, unspecified (principal)
CPT/HCPCS: 71046

== ENCOUNTER → 2025-02-15 14:03 | Outpatient (BNV) | payer MEDICAID, SELFPAY | PROVIDERS: Visit Provider Radiology Diagnostic Radiology | DX: J06.9 Acute upper respiratory infection, unspecified (principal) | CPT/HCPCS: 71046 ==

== ENCOUNTER 2025-02-25 11:07 | Outpatient (REF) | payer MEDICAID, SELFPAY ==
--- NOTE | ~2025-02-25 | CT_ITS ---
EXAMINATION: CT CHEST WITHOUT CONTRAST CLINICAL INFORMATION: Pulmonary nodules. COMPARISON: November 27, 2024 TECHNIQUE: Multidetector volumetric CT imaging of the chest was done. Axial MIP volume rendering provided. Sagittal and coronal reformatted images were obtained. This CT examination was performed using dose optimization techniques as appropriate, variously including the following: *Automated exposure control *Adjustment of mA and/or kV according to patient size (this includes techniques or standardized protocols for targeted exams where dose is matched to indication/reason for exam; i.e. extremities or head) *Use of iterative reconstruction technique DLP: 183 mGy centimeter. FINDINGS: TIMBER REPAIRER: Large body habitus. Vascular clips right upper quadrant abdomen and likely cholecystectomy procedure. Multilevel thoracolumbar spondylosis. Calcifications in the right breast shadow. LUNGS: 1 mm noncalcified pulmonary nodule in the periphery of the left lower lung lobe. No gross consolidation. No bronchiectasis. No honeycombing. Respiratory airways is patent. MEDIASTINUM: No lymphadenopathy. Small volume pericardial effusion. The heart is not enlarged. Calcified plaques in the thoracic aorta and the coronary arteries. No aneurysm, thoracic aorta. CORONARY ARTERY CALCIFICATION: Calcified plaques. PLEURA: No pleural effusion. No pneumothorax. AXILLA: No lymphadenopathy. UPPER ABDOMEN: Vascular desiccation's involving splenic artery and celiac trunk. OSSEOUS STRUCTURES: Multilevel spondylosis more conspicuous at T7-8 and T9-10 levels with incomplete ankylosis at T7-8. No acute fracture or gross listhesis. S-shaped curvature of the thoracolumbar spine. Dystrophic calcifications in the breast, right more pronounced on the left side. Degenerative changes in the acromioclavicular joints, bilaterally. CT/CT chest wo IV con IMPRESSION: Overall resolved pulmonary nodules in the left lower lung lobe with nonspecific persistent 1 mm noncalcified pulmonary nodule, left lung base. Overall improved aeration/resolved airspace disease. Coronary artery disease and atherosclerosis disease. Fleischner guidelines were followed. Electronically signed by: Brandon Mosqueda MD 02/25/2025 11:55 AM EDT
--- OUTSIDE RECORDS SUMMARY | 2025-02-25 12:12 | XMS_ITS | Encounter Summary ---
Author Organization [facility] Address [address] [phone] Phone Care Team Providers Care Gin Pole Operator Name Role Phone Maranda Serna MD Primary Care Provider [phone] Encounter Details Date Type Department Care Team (Late st Contact Info) Description 01/25/2025 Office Communication [facility] [address] [place] [phone] Marci Gleason ARNP [address] [phone] Social History Tobacco Use Types Packs/Day Years Used Date Smoking Tobacco: Never Smokeless Tobacco: Never Alcohol Use Standard Drinks/Week Comments Yes 0 (1 standard drink = 0.6 oz pure alcohol) Intermittently Hot Amanda. Tea with [place] only if sick Comments Unknown Sex and [...] Office Visit [facility] [address] [phone] Marci Gleason ARNP [address] [phone] documented as of this encounter Visit Diagnoses Not on filedocumented in this encounter Care Teams Gin Pole Operator Relationship Specialty Start Date End Date Maranda Serna MD [address] [place] [address] PCP - General Family Medicine 08/24/21 documented as of this encounter
--- OUTSIDE RECORDS SUMMARY | 2025-02-25 12:12 | XMS_ITS | Encounter Summary ---
Author Organization [employer] Address [address] [facility] [address] [place] [address] Care Team Providers Care Electrician [employer] Name Role Phone Maranda Serna MD Primary Care Provider Reason for Visit * Reason Onset Date Comments Hospital Follow-up 12/07/2024 Encounter Details Date Type Department Care Team ([facility] Contact Info) Description 12/07/2024 Telephone [facility] [address] [place], [place] [phone] Maranda Serna MD [address] [place], [place] [phone] Hospital Follow-up Social History Tobacco Use Types [...] follow up. Pt requested a call back. [phone] (Pt Contact) documented in this encounter Plan of Treatment Not on file documented as of this encounter Visit Diagnoses Not on filedocumented in this encounter Additional Health Concerns Assessment Noted Time PHQ-9 Depression Total Score: 6 10/23/20 10:04 AM EST documented as of this encounter Care Teams Electrician [employer] Relationship Specialty Start Date End Date Maranda Serna MD [address] [place] [address] PCP - General Family Medicine 08/01/21 documented as of this encounter
--- OUTSIDE RECORDS SUMMARY | 2025-02-25 12:12 | XMS_ITS | Clinical Summary ---
Author Organization [employer] Address [address] [place] [address] Care Team Providers Care Inside Account Executive Name Role Phone Maranda Serna MD Primary Care Provider [phone] Allergies Active Allergy Reactions Criticality Noted Date [...] mL 2 025 Active Easy Touch Pen [place] 31G X 8 MM miscIndication s:Type 2 diabetes mellitus with hyperglycemia, with long-term current use of insulin ([facility]) USE DIRECTED THREE TIMES DAILY [...] hyperglycemia, with long-term current use of insulin ([facility]) TEST BLOOD SUGAR THREE TIMES DAILY 100 each 5 Active ferrous sulfate 325 (65 Fe) MG EC tablet Take 1 tablet by mouth every other day. 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 Only tablets available are 600 and 800 mg tablet - will have her take 1/4 of 600 mg tablet and take bid; or will check with pharmacist if she can open the capsule and take inside content Assessment & Plan (07/23/2024 5:36 AM EDT): - seeing senior analytical chemist - continue judicious use of gabapentin 100 mg tid - she wants to switch to tablet. Only tablets available are 600 and 800 mg tablet - will have her take 1/4 of 600 mg tablet and take bid; or will check with pharmacist if she can open the capsule and take inside content Assessment & Plan (01/04/2024 3:36 PM EST): - seeing senior analytical chemist - continue judicious use of gabapentin Assessment & Plan (10/03/2023 9:48 AM EST): - seeing senior analytical chemist - waiting for diabetic orthotics Adjustment disorder [...] hyperkalemia and cough -Currently prescribed Dapagliflozin from rope maker -Follow up in 3-6 mo, sooner if [...] hyperkalemia and cough -Currently prescribed Dapagliflozin from rope maker -Follow up in 3-6 mo, sooner if [...] osteoarthritis; plantar fasciitis - referred to a senior analytical chemist; waiting for an appt - check the [...] want to try any GLP-1 agonist. -Patient Gis Manager prescribed Farxiga. Patient is taking this medication [...] want to try any GLP-1 agonist. -Patient Gis Manager prescribed Farxiga. Patient is no longer taking [...] (01/04/2024 3:42 PM EST): - followed by [facility] - no anatomical pancreatic abnormality on MRI in Dec 2022 - continue vegan / plant-based pancreatic enzyme Assessment & Plan (10/03/2023 9:49 AM EST): - followed by [facility] - no anatomical pancreatic abnormality on MRI in Dec 2022 - continue vegan / plant-based pancreatic enzyme Assessment & Plan (06/07/2023 3:30 PM EDT): - followed by [facility] - no anatomical pancreatic abnormality on MRI in Dec 2022 - continue vegan / plant-based pancreatic enzyme Assessment & Plan (02/24/2023 5:30 AM EDT): - followed by [facility] - no anatomical pancreatic abnormality on MRI in Dec 2022 - continue vegan / plant-based pancreatic enzyme Assessment & Plan (12/18/2022 6:12 PM EST): - followed by [facility] - continue vegan pancreatic enzyme Allergic [...] Plan (01/21/2025 12:33 PM EDT): -Followed by [facility], last seen 01/03/25 -EGD and Colonoscopy on 12/24/21; showed Tubular Adenoma, she was recommended to repeat in 3 years. - pt has been using castor oil - continue trying fiber-rich diet and increasing physical activity as tolerated. - continue Senakot as prescribed Assessment & Plan (07/20/2024 1:50 PM EDT): -Followed by [facility], last seen 08/06/22 -EGD and Colonoscopy on 12/24/21; showed Tubular Adenoma, she was recommended to repeat in 3 years. - pt has been using castor oil - continue trying fiber-rich diet and increasing physical activity as tolerated. - continue Senakot as prescribed Assessment & Plan (01/04/2024 3:38 PM EST): -Followed by [facility], last seen 08/06/22 -EGD and Colonoscopy on 12/24/21; showed Tubular Adenoma, she was recommended to repeat in 3 years. - pt has been using castor oil - continue trying fiber-rich diet and increasing physical activity as tolerated. - continue Senakot as prescribed Assessment & Plan (06/07/2023 3:33 PM EDT): -Followed by [facility], last seen 08/06/22 -EGD and Colonoscopy on 12/24/21; showed Tubular Adenoma, she was recommended to repeat in 3 years. - pt has been using castor oil - continue trying fiber-rich diet and increasing physical activity as tolerated. - continue Senakot as prescribed Assessment & Plan (12/18/2022 6:26 PM EST): -Followed by [facility], last seen 08/06/22 -EGD and Colonoscopy on 12/24/21; showed Tubular Adenoma, she was recommended to repeat in 3 years. - pt has been using castor oil - continue trying fiber-rich diet and increasing physical activity as tolerated. - continue Senakot as prescribed Chronic kidney disease, stage III (moderate) 01/2022 Assessment & Plan (01/21/2025 12:32 PM EDT): - Gis Manager, Dr. Marci Hylton. Last seen on 01/25/25 - Metformin is discontinued, Dr. Tsai started her on Dapagliflozin (Farxiga) - Previously on Lisinopril, but was disccontinued due to cough / K - Avoid nephrotoxic drugs, including NSAID (no more Aleve) - Renal dose meds Assessment & Plan (07/23/2024 5:41 AM EDT): - Gis Manager, Dr. Marci Hylton. - Metformin is discontinued, Dr. Tsai started bryn ib Dapagliflozin (Farxiga) - Previously on Lisinopril, but was disccontinued due to cough / K - Avoid nephrotoxic drugs, including NSAID (no more Aleve) - Renal dose meds Assessment & Plan (01/04/2024 3:45 PM EST): - Gis ManagerDr. 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 Tsai is prescribing Dapagliflozin (Farxiga) - Previously on Lisinopril, but was disccontinued due to cough / K - Avoid nephrotoxic drugs - Renal dose meds Assessment & Plan (10/03/2023 9:41 AM EST): - Gis ManagerDr. 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 Tsai rx Farxiga for DM management - Previously on Lisinopril, but was disccontinued due to cough / K - Avoid nephrotoxic drugs - Renal dose meds - Pt was advised that atorvastatin is not nephrotoxic and it will lower her ASCVD risk. Pt continues to decline statin therapy. Assessment & Plan (06/07/2023 3:34 PM EDT): - Gis ManagerDr. 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 Tsai [...] & Plan (02/24/2023 5:37 AM EDT): - Gis ManagerDr. Tsai - Lab: 12/24/22 BUN 28, Scr [...] & Plan (12/18/2022 6:31 PM EST): - Gis ManagerDr. 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 Eulalio [...] PM EST): -s/p EGD 12/24/21 -followed by [facility] -continue omeprazole 40mg daily -previously tried pantoprazole and lansoprazole; pt prefers omeprazole. -previously prescribed famotidine. Max dose for her renal function is 20 mg daily. Pt does not take it regularly. Assessment & Plan (10/03/2023 9:50 AM EST): -s/p EGD 12/24/21 -followed by [facility] -continue omeprazole 40mg daily -previously tried pantoprazole and lansoprazole; pt prefers omeprazole. -previously prescribed famotidine. Max dose for her renal function is 20 mg daily. Pt does not take it regularly. Assessment & Plan (06/07/2023 3:33 PM EDT): -s/p EGD 12/24/21 -followed by [facility] -continue omeprazole 40mg daily -previously tried pantoprazole and lansoprazole; pt prefers omeprazole. -previously prescribed famotidine. Max dose for her renal function is 20 mg daily. Pt does not take it regularly. Assessment & Plan (12/18/2022 6:28 PM EST): -s/p EGD 12/24/21 -followed by [facility] -continue prantoprazol 40mg daily -previously prescribed famotidine. Max dose for her renal function is 20 mg daily. Irritable bowel syndrome 10/12/2022 Assessment & Plan (07/20/2024 1:50 PM EDT): - followed by [facility] - continue current treatment plan per GI - low FODMAP diet - pt is prescribed simethicone, Sennakot, citrucel, but does not like taking it regularly Assessment & Plan (01/04/2024 3:42 PM EST): - followed by [facility] - continue current treatment plan per GI - low FODMAP diet - pt is prescribed simethicone, Sennakot, citrucel, but does not like taking it regularly Assessment & Plan (10/03/2023 9:49 AM EST): - followed by [facility] - continue current treatment plan per GI - low FODMAP diet - pt is prescribed simethicone, Sennakot, citrucel, but does not like taking it regularly Assessment & Plan (06/07/2023 3:32 PM EDT): - followed by [facility] - continue current treatment plan per GI - low FODMAP diet - pt is prescribed simethicone, Sennakot, citrucel, but does not like taking it regularly Assessment & Plan (12/18/2022 6:27 PM EST): - followed by [facility] - continue current treatment plan per [...] - Prescribed dapagliflozin (Farxiga) from PCP and rope maker, questionable adherence - Discussed about CGM, which she does not want to use it at this time Treatment Hx -Pt has taken GLP-1 agonists and had significant side effects, mainly GI. Pt states she does not want to try any GLP-1 agonist. -Patient Gis Manager prescribed Farxiga. Patient is taking this medication [...] want to try any GLP-1 agonist. -Patient Gis Manager prescribed Farxiga. Patient is taking this medication [...] want to try any GLP-1 agonist. -Patient Gis Manager prescribed Farxiga. Patient is no longer taking [...] want to try any GLP-1 agonist. -Patient Gis Manager prescribed Farxiga. Patient is no longer taking [...] want to try any GLP-1 agonist. -Patient Gis Manager prescribed Farxiga. Patient is no longer taking [...] want to try any GLP-1 agonist. -Patient Gis Manager prescribed Farxiga. Patient is no longer taking [...] 02/15/2025 2:00 PM EDT Office Visit [facility] [address] [facility] [place] [address] Joleen Avery MD Viral upper respiratory infection 02/15/2025 Telephone [facility] [address] [place] [address] Joleen Avery MD 02/09/2025 Telephone [facility] [address] [place] [phone] Maranda Serna MD 02/09/[address] [address] Maranda Serna MD 02/07/2025 Orders Only [facility] [address] [place], [place] [address] [facility] [place] [address] Maranda Serna MD Pulmonary nodule (Primary Dx) 01/28/2025 Orders Only [facility] [address] [facility] [place] [address] Maranda Serna MD Type 2 diabetes mellitus with hyperglycemia, with long-term current use of insulin ([facility]/HCC) 01/21/2025 Population Health Risk Score [facility] () [address] [phone] Provider, Population Health Generic 01/17/2025 11:00 AM EDT Office Visit [facility] [address] [facility] [place] [address] Maranda Serna MD 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 (CMS/HCC) (Primary Dx); Stage 3b chronic kidney disease (CMS/HCC); Chronic idiopathic constipation; Type 2 diabetes mellitus with hyperglycemia, with long-term current use of insulin (CMS/HCC); Type 2 diabetes mellitus with stage 3b chronic kidney disease, with long-term current use of insulin (CMS/HCC); Dyslipidemia; Anemia due to stage 3b chronic kidney disease (CMS/HCC) (CMS/HCC) 01/17/2025 Travel 01/13/2025 Orders Only [facility] [address] [facility] [place] [address] Maranda Serna MD Pulmonary nodule (Primary Dx) 01/13/2025 Telephone [facility] [place] [address] Maranda Serna MD chart prep 01/12/2025 Refill [facility] [place] [address] Yesica Naylor MD 12/23/2024 Orders Only GENERIC EXTERNAL DATA DEPARTMENT Provider, Generic External Data 12/14/2024 Refill [facility] [place] [address] Maranda Serna MD Type 2 diabetes mellitus with hyperglycemia, with long-term current use of insulin ([facility]) 12/13/2024 Refill [facility] [place] [address] Maranda Serna MD 12/08/[address] [address] Maranda Serna MD Transition Of Care (Tcm) (HDF- Unscheduled THIRD LVM) 12/07/[address] [address] Maranda Serna MD Hospital Follow-up 12/02/2024 Patient Outreach [facility] [address] [place] [phone] Maranda Serna MD Transition Of Care (Tcm) (HDF- Unscheduled second LVM) 12/01/2024 Patient Outreach [address] [address] Maranda Serna MD Transition Of Care (Tcm) (HDF- unscheduled LVM ) 11/27/2024 Orders Only [facility] External Provider, [facility] from Last 3 Months Immunizations Name Administration [...] Diagnosis Comments CT CHEST WO CONTRAST Routine 02/25/2025 11:15 AM EDT Pulmonary nodule ECG 12-LEAD Routine 02/15/2025 2:15 PM EDT [...] hyperglycemia, with long-term current use of insulin ([facility]) POCT GLUCOSE Routine 01/17/2025 11:29 AM EDT Type 2 diabetes mellitus with hyperglycemia, with long-term current use of insulin ([facility]) CULTURE, URINE, ROUTINE Routine 12/23/2024 1:00 PM [...] hyperglycemia, with long-term current use of insulin ([facility]) Dyslipidemia HM COLONOSCOPY Routine 07/07/2022 from Last 3 Months or Most Recently Relevant to Health Maintenance Results * CT Chest w/o Contrast (02/25/2025 11:15 AM EDT) Only the most recent of2 resultswithin the time period is included. Anatomical Region Laterality Modality Body, Chest Computed Tomogra phy 02/25/2025 11:1 5 AM EDT Narrative 02/25/2025 11:59 AM EDT ? [facility] ?[address] ?[place] [address] ? CT Scan Report ? Signed ? Patient: Ese Mendoza ?MR#: [id number] ?? 8 ? : 1960 ?Acct:[id number] ? Age/Sex: 64 / F ?ADM Date: 02/25/25 ? Loc: HO.CT ? Attending Dr: Maranda Serna MD ? Ordering Physician: Maranda Serna MD ?? Date of Service: 02/25/25 ?? Procedure(s): CT chest wo IV con ?? Accession Number(s): [id number] ? cc: Maranda Serna MD ? Report Number: ?? [id number]: Total DLP = ??183.00 mGy-cm ?? EXAMINATION: ?? CT CHEST WITHOUT CONTRAST ? CLINICAL INFORMATION: ?? Pulmonary nodules. ? COMPARISON: ?? November 27, 2024 ? TECHNIQUE: ?? Multidetector volumetric CT imaging of the chest was done. Axial MIP ?? volume rendering provided. Sagittal and coronal reformatted images were ?? obtained. ? This CT examination was performed using dose optimization techniques as ?? appropriate, variously including the following: ?? *Automated exposure control ?? *Adjustment of mA and/or kV according to patient size (this includes ?? techniques or standardized protocols for targeted exams where dose is ?? matched to indication/reason for exam; i.e. extremities or head) ?? *Use of iterative reconstruction technique ?? DLP: 183 mGy centimeter. ? FINDINGS: ? FIRE COORDINATOR: Large body habitus. ?? Vascular clips right upper quadrant abdomen and likely cholecystectomy ?? procedure. Multilevel thoracolumbar spondylosis. Calcifications in the ?? right breast shadow. ? LUNGS: 1 mm noncalcified pulmonary nodule in the periphery of the left ?? lower lung lobe. ?? No gross consolidation. ?? No bronchiectasis. No honeycombing. Respiratory airways is patent. ? MEDIASTINUM: No lymphadenopathy. Small volume pericardial effusion. The ?? heart is not enlarged. Calcified plaques in the thoracic aorta and the ?? coronary arteries. No aneurysm, thoracic aorta. ? CORONARY ARTERY CALCIFICATION: Calcified plaques. ? PLEURA: No pleural effusion. No pneumothorax. ? AXILLA: No lymphadenopathy. ? UPPER ABDOMEN: Vascular desiccation's involving splenic artery and ?? celiac trunk. ? OSSEOUS STRUCTURES: Multilevel spondylosis more conspicuous at T7-8 and ?? T9-10 levels with incomplete ankylosis at T7-8. No acute fracture or ?? gross listhesis. S-shaped curvature of the thoracolumbar spine. ?? Dystrophic calcifications in the breast, right more pronounced on the ?? left side. Degenerative changes in the acromioclavicular joints, ?? bilaterally. ? CT/CT chest wo IV con ?? IMPRESSION: ?? Overall resolved pulmonary nodules in the left lower lung lobe with ?? nonspecific persistent 1 mm noncalcified pulmonary nodule, left lung ?? base. Overall improved aeration/resolved airspace disease. ?? Coronary artery disease and atherosclerosis disease. ? Fleischner guidelines were followed. ? Electronically signed by: ??Brandon Mosqueda MD ??02/25/2025 11:55 AM ?? EDT RP ? Dictated By: ?Brandon Reyes MD ? Signed By: ?<Electronically signed by Brandon Gonzales MD in OV> ? 02/25/25 1155 ? DD/ 1115 ? TD/TT: 02/25/25 1124 ? Process Supervisor: ? Procedure Note Donotuseinterpreter, Image - 02/25/[address] [address] [address] Scan Report Signed Patient: Ese MendozaMR#: [id number] 8 : 1960Acct:[id number] Age/Sex: 64 / FADM Date: 02/25/25 Loc: HO.CT Attending Dr: Maranda Serna MD Ordering Physician: Maranda Serna MD Date of Service: 02/25/25 Procedure(s): CT chest wo IV con Accession Number(s): [id number] cc: Maranda Serna MD Report Number: [id number]: Total DLP = 183.00 mGy-cm EXAMINATION: CT CHEST WITHOUT CONTRAST CLINICAL INFORMATION: Pulmonary nodules. COMPARISON: November 27, 2024 TECHNIQUE: Multidetector volumetric CT imaging of the chest was done. Axial MIP volume rendering provided. Sagittal and coronal reformatted images were obtained. This CT examination was performed using dose optimization techniques as appropriate, variously including the following: *Automated exposure control *Adjustment of mA and/or kV according to patient size (this includes techniques or standardized protocols for targeted exams where dose is matched to indication/reason for exam; i.e. extremities or head) *Use of iterative reconstruction technique DLP: 183 mGy centimeter. FINDINGS: FIRE COORDINATOR: Large body habitus. Vascular clips right upper quadrant abdomen and likely cholecystectomy procedure. Multilevel thoracolumbar spondylosis. Calcifications in the right breast shadow. LUNGS: 1 mm noncalcified pulmonary nodule in the periphery of the left lower lung lobe. No gross consolidation. No bronchiectasis. No honeycombing. Respiratory airways is patent. MEDIASTINUM: No lymphadenopathy. Small volume pericardial effusion. The heart is not enlarged. Calcified plaques in the thoracic aorta and the coronary arteries. No aneurysm, thoracic aorta. CORONARY ARTERY CALCIFICATION: Calcified plaques. PLEURA: No pleural effusion. No pneumothorax. AXILLA: No lymphadenopathy. UPPER ABDOMEN: Vascular desiccation's involving splenic artery and celiac trunk. OSSEOUS STRUCTURES: Multilevel spondylosis more conspicuous at T7-8 and T9-10 levels with incomplete ankylosis at T7-8. No acute fracture or gross listhesis. S-shaped curvature of the thoracolumbar spine. Dystrophic calcifications in the breast, right more pronounced on the left side. Degenerative changes in the acromioclavicular joints, bilaterally. CT/CT chest wo IV con IMPRESSION: Overall resolved pulmonary nodules in the left lower lung lobe with nonspecific persistent 1 mm noncalcified pulmonary nodule, left lung base. Overall improved aeration/resolved airspace disease. Coronary artery disease and atherosclerosis disease. Fleischner guidelines were followed. Electronically signed by: Brandon Mosqueda MD 02/25/2025 11:55 AM EDT RP Dictated By: Brandon Reyes MD Signed By: <Electronically signed by Brandon Gonzales MDin OV> 02/25/25 1155 DD/ 1115 TD/TT: 02/25/25 1124 Process Supervisor: us Maranda Serna MD IMG CT PROCEDURES Edited Result - Final * ECG 12 lead (02/15/2025 2:15 PM [...] PM EDT Narrative 02/15/2025 2:22 PM EDT ?[facility] ?[address] ?[place] [address] ?XRay Report ? Signed ? Patient: Reji,Ese ?MR#: [id number] ?? 8 ? : 1960 ?Acct:[id number] ? Age/Sex: 64 / F ?ADM Date: 04/08/25 ? Loc: HO.HHCX ? Attending Dr: Joleen Avery MD ? Ordering Physician: Joleen Avery MD ?? Date of Service: 02/15/25 ?? Procedure(s): XR chest 2V ?? Accession Number(s): [id number] ? cc: Joleen Avery MD ? EXAMINATION: [...] DD/ 1403 ? TD/TT: 02/15/25 1405 ? Process Supervisor: ? Procedure Note Ezekiel, Image - 02/15/[address] [address] XRay Report Signed Patient: Ese MendozaMR#: [id number] 8 : 1960Acct:[id number] Age/Sex: 64 / FADM Date: 02/15/25 Loc: HO.HHCX Attending Dr: Joleen Avery MD Ordering Physician: Joleen Avery MD Date of Service: 02/15/25 Procedure(s): XR chest 2V Accession Number(s): [id number] cc: Joleen Avery MD EXAMINATION: XR CHEST [...] 02/15/25 1420 DD/ 1403 TD/TT: 02/15/25 1405 Process Supervisor: Joleen Avery MD IMG XR PROCEDURES Final Re sult * Influenza B (ID NOW Rapid Molecular) (02/15/2025 1:46 PM EDT) Influenza B Negative Negative, Indeterminate [facility] Swab 02/15/2025 1:46 PM EDT Joleen Avery MD POINT OF CARE TEST ENTER/E DIT ORDERABLES Final Result Performing Organization Address [facility] Co de Phone Number [facility] [address] [place] [phone] * Influenza A (ID NOW Rapid Molecular) (02/15/2025 1:46 PM EDT) Influenza A Negative Negative, Indeterminate [facility] Swab 02/15/2025 1:46 PM EDT Joleen Avery MD POINT OF CARE TEST ENTER/E DIT ORDERABLES Final Result Performing Organization Address [facility] Co de Phone Number [facility] [address] [place] [phone] * POCT Rapid COVID Ag (02/15/2025 1:46 PM EDT) Rapid COVID Ag Negative Swab 02/15/2025 1:46 PM EDT Joleen Avery MD POINT OF CARE TEST ENTER/E DIT ORDERABLES Final Result * (ABNORMAL) POCT glycosylated hemoglobin (Hgb A1c) (01/17/2025 11:29 AM EDT) Pathologist [facility] Hemoglobin A1C 9.0(A) 4.0 - 6.0 % QC Media Lot # [id number] Lot# Expiration Date Blood Capillary blood specimen / Unknown 01/17/2025 11:29 AM EDT Maranda Serna MD POINT OF CARE TEST ENTER/EDIT OR DERABLES Final Result * (ABNORMAL) POCT glucose manually resulted (01/17/2025 11:29 AM EDT) Pathologist [facility] Glucose Blood, POC 235(A) 60 - 200 [...] 1:00 PM EST 12/23/2024 4:59 PM EST Comment:[facility] - 12/26/2024 7:26 AM EST [...] GENERAL ORDERABLES Final Result Performing Organization Address [facility] de Phone Number [facility] [address] [place] [phone] * Lactic Acid (11/27/2024 5:48 PM EST) Lactic Acid 1.2 0.5 - 2.0 mmol/L [facility] 11/27/2024 5:48 PM EST 11/27/2024 5:54 PM EST Generic External Data Provider LAB BLOOD ORDERAB LES Final Result Performing Organization Address [facility] Phone Number [facility] [address] [place], [place] [phone] * (ABNORMAL) High Sensitivity Troponin I (11/27/2024 4:48 PM EST) Only the most recent of2 resultswithin the time period is included. TROPONIN I HIGH SENSITIVITY 743.6(HH) <3.5 - 17.0 ng/L [facility] Comment:Critical value for t est(s): TROP Results called to and readback by: VICKIE Person calling: XIN Date: 11/27/24Time: 1717The Castillo high sensitivity Troponin-I results should beused in conjunction with other diagnostic information suchas ECG, clinical observations and information, and patientsymptoms to aid in the diagnosis of [place]. 11/27/2024 4:48 PM EST 11/27/2024 4:52 PM EST Generic External Data Provider LAB BLOOD ORDERAB LES Final Result Performing Organization Address [facility] Phone Number [facility] [address] [place] [phone] * (ABNORMAL) C-reactive Protein (11/27/2024 2:07 PM EST) C Reactive Protein 4.57(H) < or = 0.50 mg/dL [facility] 11/27/2024 2:07 PM EST 11/27/2024 2:10 PM EST us Generic External Data Provider LAB BLOOD ORDERAB LES Final Result [facility] [address] [place] [address] [phone] * (ABNORMAL) Comprehensive Metabolic Panel (11/27/2024 2:07 PM EST) Sodium 140 135 - 145 mmol/L [facility] Potassium 4.0 3.3 - 5.1 mmol/L [facility] Chloride 108 96 - 108 mmol/L [facility] Carbon Dioxide 26 22 - 29 mmol/L [facility] Anion Gap 10(L) 12 - 20 [facility] Urea Nitrogen (BUN) 32(H) 9 - 16 mg/dL [facility] Creatinine, Serum 1.60(H) 0.5 - 1.4 mg/dL [facility] Creatinine Clr Calc Pharmacy 36.8 [facility] Comment:Provided height and weight: 157.48 cm,89.1 kg.eGFR (calculated from the MDRD study equation) and eCrCl(calculated from the Cockcroft-Gault equation) are based ondifferent parameters and may not yield comparable results.If eCrCl result is absurd, please check patient'sheight/weight. Estimated Glomerular Filt Rate 32 [facility] Comment:Chronic Kidney Disea se: Estimated GFR < 60 mL/min/1.79j0Oqumzl Kidney Disease: Estimated GFR < 15 mL/min/1.73m2 Glucose 149(H) 60 - 115 mg/dL [facility] Calcium 8.6 8.4 - 10.2 mg/dL [facility] Bilirubin, Total 0.4 0.0 - 1.0 mg/dL [facility] Aspartate Amino Transferase 22 5 - 31 U/L [facility] Alanine Aminotransferase 9 0 - 31 U/L [facility] Total Protein 6.7 6.5 - 8.0 g/dL [facility] Albumin Level 3.5 3.5 - 5.0 g/dL [facility] Alkaline Phosphatase 108 39 - 117 U/L [facility] 11/27/2024 2:07 PM EST 11/27/2024 2:10 PM EST Generic External Data Provider LAB BLOOD ORDERAB LES Final Result Performing Organization Address [facility] de Phone Number [facility] [address] [place] [phone] * D Dimer High Sensitivity (11/27/2024 2:06 PM EST) [facility] D Dimer High Sensitivity 204 NG/ML [facility] Comment:D-DIMER HS REFERENCE RANGENote: Our [...] ORDERAB LES Final Result Performing Organization Address [facility] Co de Phone Number [facility] [address] [place] [phone] * (ABNORMAL) CBC auto differential (11/27/2024 2:06 PM EST) [facility] White Blood Count 14.0(H) 4.8 - 10.8 X10*3/uL [facility] Red Blood Count 4.15(L) 4.20 - 5.50 X10*6/uL [facility] Hemoglobin 12.0 12.0 - 16.0 g/dl [facility] Hematocrit 36.9(L) 37.0 - 47.0 % [facility] Mean Corpuscular Volume 88.9 80.0 - 98.0 fL [facility] Mean Corpuscular Hemoglobin 28.9 27.0 - 33.0 pg [facility] Mean Corpuscular HGB Conc 32.5 31.0 - 35.0 g/dl [facility] Red Cell Distribution Width 15.7 11.0 - 16.0 % [facility] Platelet Count 294 160 - 400 X10*3/uL [facility] Mean Platelet Volume 11.3 9.4 - 12.3 fL [facility] Neutrophils Percent Auto 76.2(H) 45 - 73 % [facility] Imm Gran Pct Auto 0.4 0.0 - 0.4 % [facility] Lymphocytes Percent Auto 15.8(L) 20 - 40 % [facility] Monocytes Percent Auto 6.2 2 - 11 % [facility] Eosinophils Percent Auto 1.0 0 - 4 % [facility] Basophils Percent Auto 0.4 0 - 2 % [facility] NRBC Pct Auto 0.0 0.0 - 0.2 /100WBC [facility] Neutrophils Absolute Auto 10.7(H) 2.0 - 8.3 x10*3/uL [facility] Imm Gran Abs Auto 0.06(H) 0.00 - 0.03 X10*3/uL [facility] Lymphocytes Absolute Auto 2.2 1.2 - 4.9 X10*3/uL [facility] Monocytes Absolute Auto 0.9 0.1 - 1.2 X10*3/uL [facility] Eosinophils Absolute Auto 0.1 0.0 - 0.4 X10*3/uL [facility] Basophils Absolute Auto 0.1 0.0 - 0.2 X10*3/uL [facility] NRBC Abs Auto 0.000 0.0 - 0.012 X10*3/uL [facility] 11/27/2024 2:06 PM EST 11/27/2024 2:10 PM EST Generic External Data Provider LAB BLOOD ORDERAB LES Final Result Performing Organization Address [facility]/ZIP Co de Phone Number [facility] [address] [place] [phone] * Prothrombin Time-INR (11/27/2024 2:06 PM EST) Prothrombin Time 12.1 10.9 - 12.4 SEC [facility] INTERNATIONAL NORM RATIO 1.0 0.9 - 1.1 [facility] Comment:INTERNATIONAL NORMAL IZED RATIO (INR) [...] 2:06 PM EST 11/27/2024 2:10 PM EST [employer] External Data Provider LAB BLOOD ORDERAB LES Final Result Performing Organization Address [facility] Co de Phone Number [facility] [address] [place] [phone] * (ABNORMAL) B Type Natriuretic Peptide (BNP) (11/27/2024 2:06 PM EST) B Type Natriuretic Peptide 171(H) <100 pg/mL [facility] Comment:For those patients w ho are being treated with Natrecor(nesiritide, recombinant BNP), BNP testing should beperformed at least two hours post treatment in order toensure that only endogenous levels of BNP are detected. 11/27/2024 2:06 PM EST 11/27/2024 2:10 PM EST Generic External Data Provider LAB BLOOD ORDERAB LES Final Result Performing Organization Address [facility] de Phone Number [facility] [address] [place] [phone] * SARS-CoV-2 RNA, Influenza A/B, and RSV RNA, Ql NAAT (11/27/2024 12:43 PM EST) Influenza A PCR NEGATIVE Negative [facility] Influenza B PCR NEGATIVE Negative [facility] Resp Syncy Virus RNA Qual PCR NEGATIVE Negative [facility] SARS COV2 PCR NEGATIVE Negative [facility] Comment:All test results mus t [...] use by authorized laboratories.Testing performed on the [employer] GeneXpert utilizingreal-time RT-PCR.All SARS CoV2 and positive influenza A/B results arereported to [facility]. 11/27/2024 12:4 3 PM EST 11/27/2024 12:51 PM EST Generic External Data Provider LAB MICROBIOLOGY - GENERAL ORDERABLES Final Result Performing Organization Address [facility] Co de Phone Number [facility] [address] [place] [phone] * BI Mammogram Screening Tomosynthesis Bilateral (02/10/2024 2:40 PM EDT) Anatomical Region Laterality Modality Breast Bilateral Mammography 02/10/2024 2:40 PM EDT Narrative 02/22/2024 3:43 PM EDT ? [facility] ? [address] ?[place] [address] ? Mammography Report ? Signed ? Patient: Reji,Ese ?MR#: [id number] ?? 8 ? : 1960 ?Acct:[id number] ? Age/Sex: 63 / F ?ADM Date: 02/10/24 ? Loc: HO.MAMMO ? Attending Dr: Maranda Serna MD ? Ordering Physician: Maranda Serna MD ?Results: 1Negative ? Date of Service: 02/10/24 ?Follow Up: 1 Year From Orig ?? inal Mammogram ? Procedure(s): MM tomosynthesis screening BI ?? Accession Number(s): [id number] ? cc: Maranda Serna MD ? EXAMINATION: [...] These include several, bilateral, ?? benign macrocalcifications financial representative of fat necrosis. ? MM/MM tomosynthesis [...] by Tianna Carney MD in OV> ? 02/22/241538 ? DD/ 1440 ? TD/TT: ? Process Supervisor: ? Procedure Note Donotlaniinterpreter, Image - 02/22/2024 [facility] [address] [place] [address] Mammography Report Signed Patient: Ese MendozaMR#: [id number] 8 : 1960Acct:[id number] Age/Sex: 63 / FADM Date: 02/10/24 Loc: [place] Attending Dr: Maranda Serna MD Ordering Physician: Maranda Serna MDResults: 1Negative Date of Service: 02/10/24Follow Up: 1 Year From Orig ina Mammogram Procedure(s): MM tomosynthesis screening BI Accession Number(s): [id number] cc: Maranda Serna MD EXAMINATION: MM SCREENING [...] present. These include several, bilateral, benign macrocalcifications financial representative of fat necrosis. MM/MM tomosynthesis screening [...] in OV> 02/22/24 1539 DD/ 1440 TD/TT: Process Supervisor: Maranda Serna MD IM BI PROCEDURES Edited Result - Final * (ABNORMAL) Lipid Panel with Reflex to Direct LDL (12/30/2023 4:50 PM EST) Triglycerides 177(H) <150 mg/dL [facility] Comment:Desirable Triglyceri de: less than 150 mg/dLBorderline High Triglyceride 150-199 mg/dLHigh Triglyceride: 200-499 mg/dLVery High Triglyceride: greater than or equal to 5OO mg/dL Cholesterol 235(H) <200 mg/dL [facility] Comment:Desirable Cholestero l: less than 200 mg/dLBorderline High Cholesterol: 200-239 mg/dLHigh Cholesterol: greater than 239 mg/dL LDL Cholesterol Calculated 151(H) <100 mg/dL [facility] Comment:Desirable LDL: less than 100 mg/dLNear Optimal/Above Optimal LDL: 110- 129 mg/dLBorderline High LDL: 130-159 mg/dLHigh LDL: 160-189 mg/dLVery High LDL: greater than or equal to 190 mg/dL HDL Cholesterol 49 >40 mg/dL [facility] Comment:Desirable HDL: great er than 40 mg/dL Note: This HDL assay may give artificially low results in patients with liver disease. Blood 12/30/2023 4:50 PM EST 12/30/2023 5:26 PM EST Maranda Serna MD LAB BLOOD ORDERABLES Final Resul t [facility] [address] [place] [phone] * (ABNORMAL) Hm Colonoscopy (07/07/2022) Colonoscopy Abnormal(A ) Normal [facility] External Provider HEALTH MAINTENANCE Final Result from Last 3 Months or Most Recently Relevant to Health Maintenance [place] [address] [place] [address] STANDARD Care Teams Inside Account Executive Relationship Specialty Start Date End Date Maranda Serna MD [address] [place] [phone] PCP - General Family Medicine 08/01/21
--- OUTSIDE RECORDS SUMMARY | 2025-02-25 12:12 | XMS_ITS | Data Portability ---
Author Organization [facility] - Clarence Sen MD, [facility]- Address [address] [place] [phone] Assessment No assessment recorded. Plan of Treatment Reminders Order Date Submit Date Provider Last Modified By Organization Details Last Modified Time Details Appointments None recorded. Lab urinalysis, complete 2016 017 tmcclung In-House Results, For Internal Use Only, Do Not Delete/merge, [id number] 7 11:38:12 urinalysis, complete 2016 017 tmcclung In-House Results, For Internal Use Only, Do Not Delete/merge, [id number] 7 11:38:12 urinalysis, complete 2016 017 tmcclung In-House Results, For Internal Use Only, Do Not Delete/merge, [id number] 7 13:16:50 urinalysis, complete 2016 017 tmcclung In-House Results, For Internal Use Only, Do Not Delete/merge, [id number] 7 13:16:50 urinalysis, complete 2016 017 tmcclung In-House Results, For Internal Use Only, Do Not Delete/merge, [id number] 7 14:28:33 urinalysis, complete 2016 017 tmcclung In-House Results, For Internal Use Only, Do Not Delete/merge, [id number] 7 14:28:33 Referral None recorded. Procedures None recorded. Surgeries None recorded. Imaging US, retroperito neum 2016 017 tmcclung In-House Results, For Internal Use Only, Do Not Delete/merge, [id number] 7 14:28:33 Medication Orders None recorded. Patient TargetsNo targets recorded. Patient Instructions Encounter Date Encounter Id Patient Instructions Last Modified By Organization Details Last Modified Time 05/06/2017 [id number] Urinary Tract Infection (UTI) in Women: Care Instructions [email or web address] Not available 05/09/2017 14:28:33 bladder training : care instructions [email or web address] Not available 05/09/2017 14:28:33 kegel exercises: care instructions tmcclung Not available 05/09/2017 14:28:33 Stress Incontinence: Care Instructions [email or web address] Not available 05/09/2017 14:28:33 Urge Incontinence: Care Instructions tmcclung Not available 05/09/2017 14:28:33 07/30/2017 [id number] Urinary Tract Infection (UTI) in Women: Care Instructions [email or web address] Not available 08/04/2017 13:16:50 bladder training : care instructions tmcclung Not available 08/04/2017 13:16:50 kegel exercises: care instructions tmcclung Not available 08/04/2017 13:16:50 Stress Incontinence: Care Instructions [email or web address] Not available 08/04/2017 13:16:50 Urge Incontinence: Care Instructions [email or web address] Not available 08/04/2017 13:16:50 09/29/2017 [id number] Urinary Tract Infection (UTI) in Women: Care Instructions [email or web address] Not available 10/01/2017 12:43:07 Reason for Referral None Reported. Results Created Date Observation Date Name Description Value Unit Range Abnormal Flag Note LastModifiedBy Organization Detail LastModifiedTime 09/29/20 17 09/29/2017 urina lysis , compl ete Leukocytes Negati ve Not Available In-House Results For Internal Use Only, Do Not Delete/merge, [id number] 09/29/2017 18:46:44 09/29/20 17 09/29/2017 urina lysis , compl ete Nitrite negati ve Not Available In-House Results For Internal Use Only, Do Not Delete/merge, [id number] 09/29/2017 18:46:44 09/29/20 17 09/29/2017 urina lysis [...] 09/29/2017 urina lysis , compl ete Specific [place] 1.020 Not Available In-[place] se Results For [...] 09/29/2017 urina lysis , compl ete Specific [place] 1.025 Not Available [place] Results For [...] 07/30/2017 urina lysis , compl ete Specific [place] 1.020 Not Available In[place] Results For [...] 07/30/2017 urina lysis , compl ete Specific [place] 1.030 Not Available [place] Results For [...] 05/06/2017 urina lysis , compl ete Specific [place] 1.015 Not Available [place] Results For [...] 05/06/2017 urina lysis , compl ete Specific [place] 1.025 Not Available In-[place] se Results For [...] routine FINAL REPORT abnormal Not Available [facility] ([facility]) [address] [place], [address], 05/08/2017 16:19:18 05/06/2005/08/2017 cultu re, urine result 1 KLEBSI MONICA PNEUMO NIAE abnormal GREAT ER THAN 100,0 00 COLON Y FORMI NG UNITS PER ML Not Available [facility] ([facility]) [address] [facility], [place], [address], 05/08/2017 16:19:18 05/06/20 17 05/08/2017 cultu re, [...] THOPR IM/ANDRADE LFA S Not Available [facility] ([facility]) [address] [place], [address], 05/08/2017 16:19:18 07/30/20 17 08/01/2017 cultu re, urine urine culture, routine FINAL REPORT abnormal Not Available [facility] ([facility]) [address] [place], [address], 08/01/2017 16:22:57 07/30/20 17 08/01/2017 cultu re, urine result 1 KLEBSI MONICA PNEUMO NIAE abnormal Great er than 100,0 00 colon y formi ng units per mL Not Available [facility] ([facility]) [address] [place], [address], 08/01/2017 16:22:57 07/30/20 17 08/01/2017 cultu re, [...] thopr im/Andrade lfa S Not Available [facility] ([facility]) [address], [place], [address], 08/01/2017 16:22:57 05/15/20 17 05/15/2017 US, renal No observ ation record ed. [email or web address] [facility] [address], [place], [address], 07/30/2017 17:43:40 07/30/20 17 05/15/2017 US, retro [...] LastModified Time 05/15/2017 US, renal completed [email or web address] [facility] [address] [facility] [address], [place], [address], 07/30/2017 17:43:40 05/15/2017 US, retroperitoneum completed [facility] Infor mation not available 09/30/2017 11:33:32 05/15/2017 XR, kidney + ureter + bladder completed [facility] Information not available 09/30/2017 11:33:32 Procedure [...] Updated DateTime 7 157.48 cm 37.5 kg/m2 74601.4 4 g 84 /min 98 mm[Hg] 41 mm[Hg] Ashley Sen MD 7 15:17:41 Date Recorded Body height Body mass index (BMI) Body weight Heart rate Systolic blood pressure Diastolic blood pressure Provider Name and Address Organization Details Last Updated DateTime 7 160.02 cm 35.8 kg/m2 07386.6 6 g 87 /min 113 mm[Hg] 49 mm[Hg] Ashley Sen MD 7 15:05:21 Date Recorded Body height Body mass index (BMI) Body weight Heart rate Systolic blood pressure Diastolic blood pressure Provider Name and Address Organization Details Last Updated DateTime 7 160.02 cm 35.8 kg/m2 10131.6 6 g 98 /min 107 mm[Hg] 51 [...] N N Prostate Cancer N Alzheimer's N Depression N Hypertension (High Blood Pressure) N Cancer (Please specify type) N Parkinson's N Stroke N Heart Attack N Hepatitis A / B / C N HIV/AIDS N High Cholesterol N Liver Disease N Heart Disease N Epilepsy or Seizures N Dialysis N Kidney Disease N Gynecological HistoryNo gynecological history recorded. Obstetrics History GPAL:G 0 P 0 0 0 0 Past Encounters Encounter ID Performer Location Encounter Start Date Encounter Closed Date Diagnosis/Indication Diagnosis SNOMED-CT Code Diagnosis ICD10 Code Diagnosis Note [id number] [address] [place] [address] 05/06/2017 14:29:22 05/06/2017 17:13:49 Mixed urinary incontinence 478266910 N39.46 Incomplete emptying of urinary bladder 581343107 R39.14 Urinary tr act infectious disease 95924563 N39.[id number] [place] [address] 07/30/2017 14:16:01 07/30/2017 17:45:30 Mixed urinary incontinence 176226970 N39.46 Cystitis 95188670 N30.90 Urinary tr act infectious disease 67004208 N39.[id number] [place] [address] 09/29/2017 17:41:48 09/30/2017 11:37:17 Urinary tract infectious disease 82038773 N39.0 Health Concerns Section Related Observation LastModified by Organization Detai ls LastModified Time None Recorded Concern Status LastModified by Organization Details LastModified Time None Recorded Advance Directives Directive None Recorded Payers Encounter Date Sequence Insurance Name Policy Number Policy Singer Covered Member ID Singer Member ID Guarantor Name 05/06/2017 1 [facility] [place]MEDICA[place] REPLACEMENT - HMO) [id number] Ese N Reji [id number] Ese N Reji 07/30/2017 1 [facility] [place]PLACEMENT - H[place]) [id number] Ese N Reji [id number] Ese N Reji 09/29/2017 1 [facility] [place] REPLACEMENT - HMO) [id number] Ese N Reji [id number] Ese N Reji OBGyn Episode No OBEpisode recorded.
--- OUTSIDE RECORDS SUMMARY | 2025-02-25 12:12 | XMS_ITS | Clinical Summary ---
Author Organization [facility] Address [address] [place] [address] Phone Care Team Providers Care Baler Name Role Phone Machelle Swann MD Primary Care Provider [phone] Allergies Active Allergy Reactions Criticality Noted Date [...] 42 mcg (0.06 %) nasal spray 1 [place] by Nasal route. 09/24/20 Active omega-3 acid [...] osteoarthritis; plantar fasciitis - referred to a certified medical asst; waiting for an appt - check the [...] hyperkalemia and cough -Currently prescribed Dapagliflozin from exploitation analyst -Follow up in 3-6 mo, sooner [...] Last Assessment & Plan: - followed by [facility] [place] [facility] - no anatomical pancreatic abnormality on MRI in Dec 2022 - continue vegan / plant-based pancreatic enzyme Right knee pain 12/16/2022 Allergic rhinitis 10/12/2022 Anemia 10/12/2022 Overview (08/25/2024): Last Assessment & Plan: - likely due to chronic diseaes - Hx iron infusion - 12/24/22 Hgb 11.7, Hematocrit 35.7 Chronic idiopathic constipation 10/12/2022 Overview (08/25/2024): Last Assessment & Plan: -Followed by [facility] [facility], last seen 08/06/22 -EGD and Colonoscopy on 12/24/21; showed Tubular Adenoma, she was recommended to repeat in 3 years. - pt has been using castor oil - continue trying fiber-rich diet and increasing physical activity as tolerated. - continue Senakot as prescribed Chronic kidney disease, stag e III (moderate) ([facility] V24, [facility] V28) 10/12/2022 Overview (08/25/2024): Last Assessment & Plan: - Duplex Trimmer, Dr. 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 Tsai is prescribing Dapagliflozin (Farxiga) - Previously on Lisinopril, but was disccontinued due to cough / K - Avoid nephrotoxic drugs - Renal dose meds Gastroesophageal reflux disease 10/12/2022 Overview (08/25/2024): Last Assessment & Plan: -s/p EGD 12/24/21 -followed by [facility] [place] [place] [facility] -continue omeprazole 40mg daily -previously tried pantoprazole and lansoprazole; pt prefers omeprazole. -previously prescribed famotidine. Max dose for her renal function is 20 mg daily. Pt does not take it regularly. Irritable bowel syndrome 10/12/2022 Overview (08/25/2024): Last Assessment & Plan: - followed by [facility] [place] [facility] - continue current treatment plan per GI - low FODMAP diet - pt is prescribed simethicone, Sennakot, citrucel, but does not like taking it regularly Osteopenia 10/12/2022 Atrial fibrillation ([facility] V24, [facility] V28) 0 12/25/2021 Cobalamin deficiency 12/25/2021 Diabetic retinopathy ([facility] V24, [facility] V28) 12/25/2021 Nephrolithiasis 12/25/2021 Overview (08/25/2024): Last Assessment & Plan: - seen by urologist, last visit on Vitamin D deficiency 12/25/2021 Diabetic peripheral neuropat hy associated with type 2 diabetes mellitus ([facility] V24, [facility] V28) 11/22/2019 Nonrheumatic mitral valve regurgitation 11/09/20 Nonrheumatic tricuspid valve regurgitation 11/09 Obstructive sleep apnea syndrome 11/09/2019 Overview (08/25/2024): Last Assessment & Plan: - Pt does not feel comfortable with CPAP SOB (shortness of breath) 11/09/2019 Type 2 diabetes mellitus wit hout complication ([facility] V24, [facility] V28) 11/09/2019 Arthritis 03/03/2019 Chronic cough 01/26/2019 Moderate persistent asthma with acute exacerbati on 01/26/2019 Pulmonary hypertension ([facility] V24, [facility] V28 ) 12/31/2018 Pulmonary arterial hypertension ([place] 565844, [facility] V28) 11/19/2018 Ulcer of foot ([place] 565844, [place] 565848) 011 Immunizations Name Administration Dates Next Due Pfizer [...] PM EDT Office Visit Orthopedic Surgery - [place] [address] [facility] [address] [place] [id number] Damien Centeno DPM [address] [address] Health Maintenance Due Date Last Done Comments [...] Test (12/30/2023) Annual BMP Blood Test Abstracted us Historical Provider HEALTH MAINTENANCE Final Result * Hemoglobin A1c (12/30/2023) Hemoglobin A1C 0.0 % Comment:no interpretation Blood Venous blood specimen / Unknown us Historical Provider LAB BLOOD ORDERABLES Machelle l Result * Lipid panel (12/30/2023) Triglycerides 0 mg/dL Comment:no interpretation Cholesterol 0 mg/dL Comment:no interpretation HDL 0 mg/dL Comment:no interpretation LDL Cholesterol 0 mg/dL Comment:no interpretation Blood Venous blood specimen / Unknown Historical Provider LAB BLOOD ORDERABLES Machelle l Result * HM Urine Albumin Creatinine Ratio (07/24/2022) Urine Albumin Creatinine Ratio Abstracted Historical Provider HEALTH MAINTENANCE Final Result from Last 3 Months or Most Recently Relevant to Health Maintenance Insurance MEDICAID - [place] Care Teams Baler Relationship Specialty Start Date End Date Machelle Swann MD [address] [place] [address] [place] [address] PCP - General 10/15/12
--- OUTSIDE RECORDS SUMMARY | 2025-02-25 12:13 | XMS_ITS | Encounter Summary ---
Author Organization [employer] Address [address] [facility] 7t [place] [address] Care Team Providers Care Base Draw Operator Name Role Phone Maranda Serna MD Primary Care Provider [phone] Reason for Visit * Reason Comments Med Refill Encounter Details Date Type Department Care Team (Late st Contact Info) Description 01/12/2025 Refill [facility] [address] [place], [place] [phone] Yesica Naylor MD [address] [place] [address] Social History Tobacco Use Types Packs/Day Years [...] documented as of this encounter Care Teams Base Draw Operator Relationship Specialty Start Date End Date Maranda Serna MD [address] [place] [address] PCP - General Family Medicine 08/01/21 documented as of this encounter
--- OUTSIDE RECORDS SUMMARY | 2025-02-25 12:13 | XMS_ITS | Encounter Summary ---
Author Organization [employer] Address [address] [facility] [address] 7[address] [place] [address] Care Team Providers Care X Ray Consultant Name Role Phone Maranda Serna MD Primary Care Provider [phone] Encounter Details Date Type Department Care Team ([facility] st Contact Info) Description 01/28/2025 Orders Only [facility] MED[facility]INE [address] [place], [place] [phone] Maranda Serna MD [address] [place], [place] [phone] Type 2 diabetes mellitus with hyperglycemia, with long-term current use of insulin ([facility]) Social History Tobacco Use Types Packs/Day Years [...] hyperglycemia, with long-term current use of insulin ([facility]) documented in this encounter Additional Health Concerns Assessment Noted Time PHQ-9 Depression Total Score: 0 01/18/20 25 1:12 PM EDT documented as of this encounter Care Teams X Ray Consultant Relationship Specialty Start Date End Date Maranda Serna MD [address] [place] [address] PCP - General Family Medicine 08/01/21 documented as of this encounter
--- OUTSIDE RECORDS SUMMARY | 2025-02-25 12:13 | XMS_ITS | Clinical Summary ---
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 - Will obtain lab work. Also curious to see radiographic imaging of the hands, feets, SI and lumbar spine. Will obtain interval history from estate agent Karlee Le. - RTC in 4 months [...] polyneuropathy, with long-term current use of insulin ([facility]) POCT HEMOGLOBIN, A1C Routine 02/09/2019 8:10 AM EDT Type 2 diabetes mellitus with diabetic polyneuropathy, with long-term current use of insulin ([facility]) HIV COMBO ANTIGEN/ANTIBODY Routine 10/06/2018 3:59 PM EST Polyarthralgia from Last 3 Months or Most Recently Relevant to Health Maintenance Results * Microalbumin/creatinine ratio (02/09/2019 10:15 AM EDT) Microalbumin/Creat Ratio 20 2 - 20 mg/g Creat 02/09/2019 11:55 AM EDT [facility] Creatinine, Urine, Random 101 mg/dL 02/09/2019 11:55 AM EDT [facility] Comment: The laboratory does not have established reference ranges for this test. Interpretation of results is at the discretion of the ordering physician. Urine specimen (specimen) Urine specimen obtained by clean catch procedure / Unknown Non-blood Collection / Unknown 02/09/2019 10:15 AM EDT 02/09/2019 10:15 AM EDT us Keke Katz APRN LAB URINE ORDERABLES Final Res ult [facility] [address] [place] [address], [place] [phone] * POCT hemoglobin, A1c (02/09/2019 8:10 AM EDT) POCT Hemoglobin A1C 9.2 4.4 - 6.4 % Blood specimen (specimen) 02/09/2019 8:10 AM EDT us Keke Katz POLYTECHNIC REGISTRAR POCT ORDERABLES NO CHARGE Machelle l Result * HIV combo antigen/antibody (10/06/2018 3:59 PM EST) HIV Combo AB/AG Negative Negative 10/06/2018 6:02 PM EST [facility] Blood specimen (specimen) Venous blood specimen / Unknown Venipuncture / Unknown 10/06/2018 3:59 PM EST 10/06/2018 3:59 PM EST Narrative [facility] - 10/06/2018 6:02 PM EST This test is a 4th generation HIV Antigen-Antibody Combination assay, using a chemiluminescent microparticle immunoassay, for the simultaneous qualitative detection of human immuno- deficiency virus (HIV) p24 antigen and antibodies to HIV type 1 (HIV-1) and/or HIV type 2 (HIV-2) in human serum or plasma. The [employer]illo Launch Operator HIV Ag/Ab Combo assay is intended to [...] BLOOD ORDERABLES NO ST AT Final Result [facility] [address] [place] [address], [place] [phone] from Last 3 Months or Most Recently Relevant to Health Maintenance Insurance MEDICAID [place] D Care Teams Machine Builder Relationship Specialty Start Date End Date Viet Sánchez PA [address] [place] [address] PCP - General Family Medicine 07/22/18
--- OUTSIDE RECORDS SUMMARY | 2025-02-25 12:13 | XMS_ITS | Clinical Summary ---
Author Organization [facility] Address [address] [place] [address] Care Team Providers Care Gifted Teacher Name Role Phone Viet Sánchez Unavailable [phone] Viet Sánchez Primary Care Provider [phone] Allergies Active Allergy Reactions Criticality Noted Date Comments Nickel Rash/Dermatitis Low 02/03/2020 Pork Allergy Hives Medium 06/25/2018 Medications metFORMIN (GLUCOPHAGE-XR) 500 MG 24 hr tablet [...] 20 mg by mouth daily. Active lisinopril (PRINIVIL,ZeSTRI L) 2.5 MG tablet Take 2.5 mg by [...] Take 1 mg by mouth daily. Active fluticasone-salm eterol (ADVAIR) 250-50 mcg/inh diskus inhaler Inhale 1 puff 2 (two) times a day as needed. 01/26/2019 Active cetirizine-pseud oephedrine (ZYRTEC-D ALLERGY & CONGESTION) 5-120 MG per tablet 1 tablet as needed 10/01/2019 Active aspirin enteric coated (ECOTRIN LOW STRENGTH) 81 MG EC tablet Take 81 mg by mouth daily. Active acetaminophen (TYLENOL) 325 MG tablet Take 650 mg by mouth 4 times daily (every 6 hours) as needed. Active polyethylene glycol-electroly carlos (PLENVU) 140 g solutionIndicati ons:Screening for malignant neoplasm of colon Take as directed. 1 box 02/18/2020 Active PANTOprazole (PROTONIX) 40 MG EC tabletIndication s:Gastroesophage al reflux disease without esophagitis Take 1 tablet (40 mg total) by mouth every morning before breakfast. 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 11/22/2019 Diabetic peripheral [...] of Binge Drinking Not on file 06/10 Comments Unknown Sex and Gender Information Value Date Recorded Sex Assigned at Not on file Legal Sex Female 1:58 PM EDT Gender Identity Not on file Sexual [...] this topic Medical Devices Implanted Type Area Imcu Specialist Device Identifier Shelf Expiration Date Model / Serial / Lot [id number].[id number] Lens Iol 0 D +21.5 Brianda Mod L Bcnvx 13mm 6mm Posterior - [id number] Implanted:Qty: 1 on 01/27/2020 by Obinna Lorenzana MD at [facility] [place] [employer] [id number] / [id number] / Procedures Procedure Name Priority Date/Time Associated Diagnosis Comments COLON/EGD (CC) Routine 05/19/2020 COMPREHENSIVE METABOLIC PANEL STAT 12/24/2018 10:09 PM EST from Last 3 Months or Most Recently Relevant to Health Maintenance Results * COLON/EGD (CC) (05/19/2020) Deja Bijan Rico DO AMB ORDERABLE PERFORMABLE Fin al Result * (ABNORMAL) Comprehensive Metabolic Panel (12/24/2018 10:09 [...] 10:09 PM EST 12/24/2018 10:32 PM EST [facility] BLOOD ORDERABLES Final Res ult HOSPITAL LAB from Last 3 Months or Most Recently Relevant to Health Maintenance Insurance Advance Directives * Full Code (Latest Code Status on File) Date Activated Date Inactivated Comments 02/07/2020 9:28 AM * Full Code Date Activated Date Inactivated Comments 11/11/2019 12:01 PM 01/27/2020 12:06 PM Care Teams Gifted Teacher Relationship Specialty Start Date End Date Viet Sánchez PA [address] [place] [address] PCP - General 06/18/18 Viet Sánchez PA [address] [place] [address] 06/18/18
--- OUTSIDE RECORDS SUMMARY | 2025-02-25 12:13 | XMS_ITS | Encounter Summary ---
Author Organization [employer] Address [address] [facility] [address] 7t [place] [address] Care Team Providers Care Size Mixer Name Role Phone Maranda Serna MD Primary Care Provider [phone] Encounter Details Date Type Department Care Team (Late st Contact Info) Description 04/22/2023 Orders Only [facility] [address] [place] [address] Maranda Serna MD [address] [place] [address] Left foot pain (Primary Dx); Type 2 diabetes mellitus with hyperglycemia, with long-term current use of insulin ([facility]) Social History Tobacco Use Types Packs/Day Years [...] hyperglycemia, with long-term current use of insulin ([facility]) documented in this encounter Additional Health Concerns Assessment Noted Time PHQ-9 Depression Total Score: 6 10/23/20 22 10:04 AM EST documented as of this encounter Care Teams Size Mixer Relationship Specialty Start Date End Date Maranda Serna MD [address] [place] [address] PCP - General Family Medicine 08/01/21 documented as of this encounter
--- OUTSIDE RECORDS SUMMARY | 2025-02-25 12:13 | XMS_ITS | Encounter Summary ---
Author Organization [employer] Address [address] [facility] 7t [place] [address] Care Team Providers Care Nut Grinder Name Role Phone Maranda Serna MD Primary Care Provider [phone] Reason for Referral * Imaging (Routine) - Authorized Specialty Diagnoses / Procedures Referred By Contac t Referred To Contact Radiology Diagnoses Pulmonary nodule Procedures CT Chest w/o Contrast Maranda Serna MD [address] [place] [address] Phone: tel: fax: [address] Phone: tel: fax: Referral ID Status Reason Start Date Expiration Date V isits Requested Visits Authorized [id number] Authorized 02/07/2025 02/07/2026 1 1 Encounter Details Date Type Department Care Team (Late st Contact Info) Description 02/07/2025 Orders Only [facility] MEDICINE [address] [place], [place] [phone] Maranda Serna MD [address] [place], [place] [phone] Pulmonary nodule (Primary Dx) Social History Tobacco [...] Routine 02/25/2025 11:15 AM EDT Pulmonary nodule documented in this encounter Results * CT Chest w/o Contrast (02/25/2025 11:15 AM EDT) Anatomical Region Laterality Modality Body, Chest Computed Tomogra phy 02/25/2025 11:1 5 AM EDT Narrative 02/25/2025 11:59 AM EDT ? [facility] ?[address] ?[place] [address] ? CT Scan Report ? Signed ? Patient: Reji,Ese ?MR#: [id number] ?? 8 ? : 1960 ?Acct:[id number] ? Age/Sex: 64 / F ?ADM Date: 02/25/25 ? Loc: HO.CT ? Attending Dr: Maranda Serna MD ? Ordering Physician: Maranda Serna MD ?? Date of Service: 02/25/25 ?? Procedure(s): CT chest wo IV con ?? Accession Number(s): [id number] ? cc: Maranda Serna MD ? Report Number: ?? [id number]: Total DLP = ??183.00 mGy-cm ?? EXAMINATION: [...] DLP: 183 mGy centimeter. ? FINDINGS: ? SODDER: Large body habitus. ?? Vascular clips right [...] Mosqueda MD ??02/25/2025 11:55 AM ?? EDT ? Dictated By: ?Brandon Reyes MD ? Signed By: ?<Electronically signed by Brandon Gonzales MD in OV> ? 02/25/25 1155 ? DD/ 1115 ? TD/TT: 02/25/25 1124 ? Advice Nurse: ? Procedure Note Ezekiel, Image - 02/25/[address] [place] [address] [address] Scan Report Signed Patient: Ese MendozaMR#: [id number] 8 : 1960Acct:[id number] Age/Sex: 64 / FADM Date: 02/25/25 Loc: HO.CT Attending Dr: Maranda Serna MD Ordering Physician: Maranda Serna MD Date of Service: 02/25/25 Procedure(s): CT chest wo IV con Accession Number(s): [id number] cc: Maranda Serna MD Report Number: [id number]: Total DLP = 183.00 mGy-cm EXAMINATION: CT [...] reconstruction technique DLP: 183 mGy centimeter. FINDINGS: SODDER: Large body habitus. Vascular clips right upper [...] Brandon Mosqueda MD 02/25/2025 11:55 AM EDT Dictated By: Brandon Reyes MD Signed By: <Electronically signed by Brandon Gonzales MDin OV> 02/25/25 1155 DD/ 1115 TD/TT: 02/25/25 1124 Advice Nurse: Maranda Serna MD IMG CT PROCEDURES Edited Result - Final documented in this encounter Visit Diagnoses Diagnosis Pulmonary nodule- Primary Other diseases of lung, not elsewhere classified documented in this encounter Additional Health Concerns Assessment Noted Time PHQ-9 Depression Total Score: 0 01/18/20 25 1:12 PM EDT documented as of this encounter Care Teams Nut Grinder Relationship Specialty Start Date End Date Maranda Serna MD [address] [place] [address] PCP - General Family Medicine 08/01/21 documented as of this encounter
--- OUTSIDE RECORDS SUMMARY | 2025-02-25 12:13 | XMS_ITS | Encounter Summary ---
Author Organization [facility] Address [address] [place] [address] Care Team Providers Care Real Time Operator Name Role Phone Viet Sánchez Unavailable [phone] Viet Sánchez Primary Care Provider [phone] Encounter Details Date Type Department Care Team (Late st Contact Info) Description 05/22/2020 Scanned Document [facility] [address] [phone] Deja Rico, DO [address] [place] [address] Social History Tobacco Use Types Packs/Day Years [...] (REPORT) PATHOLOGY REPORT (05/22/2020 12:56 AM EDT) us Deja Rico DO PATHOLOGY/CYTOLOGY ORDERABLES Final Result documented in this encounter Visit Diagnoses Not on filedocumented in this encounter Care Teams Real Time Operator Relationship Specialty Start Date End Date Viet Sánchez PA [address] [place] [address] PCP - General 06/18/18 Viet Sánchez PA [address] [place] [address] 06/18/18 documented as of this encounter
--- OUTSIDE RECORDS SUMMARY | 2025-02-25 12:13 | XMS_ITS | Encounter Summary ---
Author Organization [facility] Address [address] [place] [address] Care Team Providers Care Weight Reduction Specialist Name Role Phone Viet Sánchez Unavailable [phone] Viet Sánchez Primary Care Provider Encounter Details Date Type Department Care Team ([facility] st Contact Info) Description 02/02/2020 Prep for Surgery OPHTHALMOLOGY [address] [place] [phone] Holland Hunt MD 85 [facility] [address] [facility] [place], [place] [phone] Social History Tobacco Use Types Packs/Day Years [...] on filedocumented in this encounter Care Teams Weight Reduction Specialist Relationship Specialty Start Date End Date Viet Sánchez PA [address] [place], [place] [phone] PCP - General 06/18/18 Viet Sánchez PA [address] [place] [id number] 06/18/18 documented as of this encounter
--- OUTSIDE RECORDS SUMMARY | 2025-02-25 12:13 | XMS_ITS | Encounter Summary ---
Author Organization [facility] Address [address] [place] [address] Care Team Providers Care Methods And Procedures Analyst Name Role Phone Viet Sánchez Unavailable [phone] Viet Sánchez Primary Care Provider [phone] Encounter Details Date Type Department Care Team (Late st Contact Info) Description 08/06/2018 Scanned Document [facility] U[facility] [place] [address] [facility] [address] [place] [address] Provider, MD Sheryl [address] [place] [address] Social History Tobacco Use Types Packs/Day Years [...] on filedocumented in this encounter Care Teams Methods And Procedures Analyst Relationship Specialty Start Date End Date Viet Sánchez PA [address] [place] [address] PCP - General 06/18/18 Viet Sánchez PA [address] [place] [address] 06/18/18 documented as of this encounter
--- OUTSIDE RECORDS SUMMARY | 2025-02-25 12:13 | XMS_ITS | Clinical Summary ---
Author Organization [facility] Address [address] [place] [address] Care Team Providers Care Ccna Name Role Phone ChapispriscillaViet Primary Care Provider [phone] Allergies Active Allergy Reactions Criticality Noted Date [...] age to complete this topic Care Teams Ccna Relationship Specialty Start Date End Date Viet Sánchez [address] [place] [address] PCP - General Medical Services 06/19/18
--- OUTSIDE RECORDS SUMMARY | 2025-02-25 12:13 | XMS_ITS | Encounter Summary ---
Author Organization [employer] Address [address] [facility] [address] 7[address] [place] [address] Care Team Providers Care Vine Fruit Farming Supervisor Name Role Phone Maranda Serna MD Primary Care Provider [phone] Encounter Details Date Type Department Care Team ([facility] st Contact Info) Description 01/13/2025 Orders Only [facility] MEDICINE [address] [place] [address] Maranda Serna MD [address] [place], [place] [phone] Pulmonary nodule (Primary Dx) Social History Tobacco [...] documented as of this encounter Care Teams Vine Fruit Farming Supervisor Relationship Specialty Start Date End Date Maranda Serna MD [address] [place] [address] PCP - General Family Medicine 08/01/21 documented as of this encounter
--- OUTSIDE RECORDS SUMMARY | 2025-02-25 12:13 | XMS_ITS | Encounter Summary ---
Author Organization [facility] Address [address] [place] [address] Care Team Providers Care Retail Attendant Name Role Phone Viet Sánchez Unavailable [phone] Viet Sánchez Primary Care Provider [phone] Encounter Details Date Type Department Care Team (Late st Contact Info) Description 02/18/2020 Scanned Document [facility] [address] [place] [phone] Provider, Sheryl, [address] [place] [address] Social History Tobacco Use Types Packs/Day Years [...] on filedocumented in this encounter Care Teams Retail Attendant Relationship Specialty Start Date End Date Viet Sánchez PA [address] [place], [place] [phone] PCP - General 06/18/18 Viet Sánchez PA [address] [place], [place] [phone] 06/18/18 documented as of this encounter
--- OUTSIDE RECORDS SUMMARY | 2025-02-25 12:13 | XMS_ITS | Encounter Summary ---
Author Organization [facility] Address [address] [place] [address] Care Team Providers Care Clinical Specialty Rep Name Role Phone Viet Sánchez Unavailable [phone] Viet Sánchez Primary Care Provider [phone] Encounter Details Date Type Department Care Team ([facility] st Contact Info) Description 11/09/2019 Prep for Surgery OPHTHALMOLOGY [address] [place] [address] Holland Hunt MD 85 [facility] [address] [place] [address] Social History Tobacco Use Types Packs/Day Years [...] on filedocumented in this encounter Care Teams Clinical Specialty Rep Relationship Specialty Start Date End Date Viet Sánchez PA [address] [place] [address] PCP - General 06/18/18 Viet Snáchez PA NPI: [id number] [place] [address] 06/18/18 documented as of this encounter
--- OUTSIDE RECORDS SUMMARY | 2025-02-25 12:13 | XMS_ITS | Data Portability ---
Author Organization [place] - [facility], All[facility] Address [address] [address] Assessment No assessment recorded. Plan of Treatment Reminders Order Date Submit Date Provider Last Modified By Organization Details Last Modified Time Details Appointments Test Results 2024 04:00P M GENARO Barrett MD Not available Not available Not available Lab None recorded. Referral None recorded. Procedures None recorded. Surgeries None recorded. Imaging CT, neck, soft tissue, w/ contrast - evaluate lingual tonsil hyperophy 2023 024 [facility], [address] [place] [address], [address], 07/01/2024 12:06:24 [place], modified barium swallow study 2023 024 [facility], [address] [place] [address], [id number], 07/29/2024 15:47:26 Medication Orders None recorded. Patient TargetsNo targets recorded. Patient InstructionsNo instructions recorded. Reason for Referral None Reported. Results Created Date Observation Date Name Description Value Unit Range Abnormal Flag Note LastModifiedBy Organization Detail LastModifiedTime 07/29/2007/29/2024 [place], modif ied izaiah mccabe ow study No observ ation [facility] [address], [place], [address], 08/02/2024 14:43:11 09/28/20 24 09/25/2024 MRI, head + neck + orbit s, w/wo contr ast [place] [facility] Access ion Number : [id number] Patien t Name: Ese Mendoza Record Number : [id number] Date of : 1959 Date of Exam: 2023 Referr daniel Physic oliver: Vineet nicholas, Genaro [facility] [place] [address] [place] [address] Exam: MR Orbits , Face, Neck (C-/C+ ) CPT 84984 Room Descri ption: [place] GE Pion 3T MRI of the soft [...] Electr onical ly Signed By: Vikram mike [facility] ([facility]) [address], [place], [address], 10/01/2024 16:52:47 Result Notes None recorded. 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 Procedures Surgical History Date Name Laterality Status Provider Name and Address Organization Details Recorded Time 07/01/2024 FFL_RE completed GENARO PELAEZ MD [address] [address], [place], [address], [facility] [place] 07/01/2024 12:01:28 Imaging Results Imaging Date Name Status LastModified by Organiz ation Details LastModified Time 07/29/2024 [place], modified barium swallow study completed [facility] [address] [address], [place], [address], 08/02/2024 14:43:11 09/25/2024 MRI, head + neck + orbits, w/wo contrast completed [facility] ([facility] [address] [facility], [place], [address], 10/01/2024 16:52:47 Procedure Notes None recorded. Medical Equipment None Reported. Allergies Allergen ID Allergen Name Allergen Category Reaction Reaction Severity Criticality Documentation Date Start Date Code Code System Note Provider Name and Address Organization Details Recorded Time 168804 rubber, unspecifi ed environme nt,medica tion Not available Not available Not available 07/01/2024 47942 5 UNK Ashu quesada [place] - [facility] 4 11:45:16 679061 pork allergeni c extract food,medi cation Not available Not available Not available 07/01/2024 51939 8 RxNorm Ashu quesada [place] - [facility] 4 11:45:41 Medications Name Sig Start Date [...] Available Not Available No t Available FreeStyle Superior Lite kit USE DIRECTED TO TEST BLOOD [...] Available No t Available FreeStyle Doug 2 [place] USE DIRECTED active Not Available Not Available No t Available Vitals Date Recorded Body height Body mass index (BMI) Body weight Provider Name and Address Organization Details Last Updated DateTime 07/01/2024 157.48 cm 38.4 kg/m2 31698.4 g Ashu Ramírez [facility] 07/01/2024 11:54:39 Social History None recorded. Functional Status None recorded. Mental Status None recorded. Family History Nothing Reported. Medical History No medical history recorded. Gynecological HistoryNo gynecological history recorded. Obstetrics History GPAL:G 0 P 0 0 0 0 Past Encounters Encounter ID Performer Location Encounter Start Date Encounter Closed Date Diagnosis/Indication Diagnosis SNOMED-CT Code Diagnosis ICD10 Code Diagnosis Note [id number] GENARO PELAEZ MD [facility] [address] [place] [address] 07/01/2024 11:04:43 07/01/2024 12:01:09 Oropharyngeal dysphagia 52780727 R13.12 I recommend an MBS to better evaluate. Benign joy plasm of oropharynx 79406564 D10.5 she has symmetric lingual tonsil hypertroph y on laryngosoc py. I will evaluate with a contrasted CT to make sure there are no tumors. Dysphagia 26986020 R13.1 0 see above Health Concerns Section Related Observation LastModified by Organization Detai ls LastModified Time None Recorded Concern Status LastModified by Organization Details LastModified Time None Recorded Advance Directives Directive None Recorded Payers Encounter Date Sequence Insurance Name Policy Number Policy Singer Covered Member ID Singer Member ID Guarantor Name 07/01/2024 1 [place] [facility] Ese Mendoza [id number] Ese Mendoza Notes Date Note Type Note [...] Takes omeprazole for GERD. GENARO PELAEZ MD [address] [place] [address], [address], [place] - [facility] 07/01/2024 12:04:21 OBGyn Episode No OBEpisode recorded.
--- OUTSIDE RECORDS SUMMARY | 2025-02-25 12:13 | XMS_ITS | Encounter Summary ---
Author Organization [facility] Address [address] [place] [address] Care Team Providers Care Border Measurer And Cutter Name Role Phone Viet Sánchez Unavailable [phone] Viet Sánchez Primary Care Provider [phone] Encounter Details Date Type Department Care Team (Late st Contact Info) Description 07/07/2018 Scanned Document [facility] [place] [address] [place] [address] Provider, Sheryl, [address] [place] [address] Social History Tobacco Use Types Packs/Day Years [...] on filedocumented in this encounter Care Teams Border Measurer And Cutter Relationship Specialty Start Date End Date Viet Sánchez PA [address] [place] [address] PCP - General 06/18/18 Viet Sánchez PA NPI: [id number] [place] [address] 06/18/18 documented as of this encounter
--- OUTSIDE RECORDS SUMMARY | 2025-02-25 12:13 | XMS_ITS | Encounter Summary ---
Author Organization [employer] Address [address] [facility] 7t [place] [address] Care Team Providers Care Payroll Processor Name Role Phone Maranda Serna MD Primary Care Provider [phone] Reason for Visit * Reason Comments Med Refill Encounter Details Date Type Department Care Team (Late st Contact Info) Description 11/19/2023 Refill [facility] MEDICINE [address] [place], [place] [phone] Yesica Naylor MD [address] [place] [address] Social History Tobacco Use Types Packs/Day Years [...] documented as of this encounter Care Teams Payroll Processor Relationship Specialty Start Date End Date Maranda Serna MD [address] [place] [address] PCP - General Family Medicine 08/01/21 documented as of this encounter
--- OUTSIDE RECORDS SUMMARY | 2025-02-25 12:14 | XMS_ITS | Clinical Summary ---
Author Organization [facility] Address [address] [place] [address] Phone Care Team Providers Care Recorder Gravity Prospecting Name Role Phone Maranda Serna MD Primary Care Provider [phone] Allergies Active Allergy Reactions Criticality Noted Date Comments Cetirizine 10/01/2021 Nickel Rash Low 02/03/2020 Pork Allergy Hives,Itching Medium 06/25/2018 Medications acetaminophen (TYLENOL) 325 MG tablet Take 650 mg by mouth every 6 (six) hours if needed Active albuterol HFA (PROVENTIL HFA;VENTOLIN HFA) 108 (90 Base) MCG/ACT inhaler Inhale 1-2 puffs if needed 9 Active fluticasone (FLONASE) 50 MCG/ACT nasal spray USE 1 SPRAY IN EACH NOSTRIL ONCE D 8 Active Tresiba FlexTouch 100 UNIT/ML injection Inject 90 Units under the skin every night 1 Active cyanocobalamin (VITAMIN B-12) 100 MCG tablet See Instructions, Per pt., takes 5000 mcg daily?, 0 Refills, Maintenance, 11/17/20 13:14:00 EST, Partial fill upon patient request if the prescription is for a schedule II opioid drug. 1 Active Magnesium 400 MG tablet Take 400 [...] not crush or chew. Active insulin lispro protamine-insul in lispro (HumaLOG 50-50) (50-50) 100 UNIT/ML inj pen Inject under the skin 2 (two) times a day before meals Active carvedilol (COREG) 6.25 MG tablet Take 6.25 mg by mouth in the morning and 6.25 mg in the evening. Take with meals. Active Dapagliflozin Propanediol 5 MG tabletIndicatio ns:Stage 3b chronic kidney disease (HCC),Proteinur ia, not otherwise specified Take 5 mg by mouth 1 (one) time each day in the morning 90 tablet 3 5 01/26/20 26 Active Active Problems Problem Noted Date Diagnosed [...] 12/31/2018 07/22/2022 Multiple joint pain 10/06/2018 07/22/20 Overview (10/01/2021): Last Assessment & Plan: - Based on her hx of psorasis, asymmetric polyarthritis, back pain, and arthralgias relieved by MTX favor this is psoriatic arthritis superimposed on osteoarthritis. 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 - Will obtain lab work. Also curious to see radiographic imaging of the hands, feets, SI and lumbar spine. Will obtain interval history from provider relations rep Karlee Le. - RTC in 4 months - she is to continue with mtx 4 tabs qweekly and folic acid Ulcer of foot 07/19/2011 07/22/2022 Encounters Date Type Department Care Team Description 01/26/2025 Refill [facility] [address] [address] Shasha Delacruz [place] 01/25/2025 2:45 PM EDT Office Visit [facility] [address] [phone] Marci Gleason ARNP Stage 3b chronic kidney disease (HCC) (Primary Dx); Anemia in chronic kidney disease; Proteinuria, not otherwise specified 01/25/2025 Office Communication [facility] [address] [address] Marci Gleason ARNP from Last 3 Months Immunizations Immunization Administration Dates Next Due Influenza (IM) Preservative [...] pure alcohol) Intermittently Hot Amanda. Tea with Rock only if sick Comments Unknown Sex and [...] Office Visit [facility] [address] [address] Marci Gleason ARNP [address] [address] Health Maintenance Due Date Last [...] age to complete this topic Pneumococcal Vaccine: 50+ Years Completed 09/23/2023, 01/01/2021 Pneumococcal Vaccine: Peds (0 to 5 Years) and At-Risk Patients (6 to 49 Years) Discontinued 09/23/2023, 01/01/2021 Influenza Vaccine Completed 08/06/2024, , 09/24/2021, Additional history exists Insurance Medicaid [place] Medicaid [place] Care Teams Recorder Gravity Prospecting Relationship Specialty Start Date End Date Maranda Serna MD [address] [place] [address] PCP - General Family Medicine 08/24/21
--- OUTSIDE RECORDS SUMMARY | 2025-02-25 12:14 | XMS_ITS | Encounter Summary ---
Author Organization [employer] Address [address] [facility] 7t [place] [address] Care Team Providers Care Virologist Name Role Phone Maranda Serna MD Primary Care Provider [phone] Reason for Visit * Reason Onset Date Comments Appointment Request 05/28/2024 Encounter Details Date Type Department Care Team ([facility] st Contact Info) Description 05/28/2024 Telephone [facility] MEDICINE [address] [place], [place] [phone] Maranda Serna MD [address] [place], [place] [phone] Appointment Request Social History Tobacco Use Types [...] documented as of this encounter Care Teams Virologist Relationship Specialty Start Date End Date Maranda Serna MD [address] [place] [address] PCP - General Family Medicine 08/01/21 documented as of this encounter
--- OUTSIDE RECORDS SUMMARY | 2025-02-25 12:14 | XMS_ITS | Encounter Summary ---
Author Organization [employer] Address 75 [facility] 7t [place] [address] Care Team Providers Care Bid Manager Name Role Phone Maranda Serna MD Primary Care Provider [phone] Reason for Visit * Reason Onset Date Comments Durable Medical Equipment 05/26/2024 Encounter Details Date Type Department Care Team ([facility] st Contact Info) Description 05/26/2024 Telephone [facility] MEDICINE [address] [place], [place] [phone] Maranda Serna MD [address] [place], [place] [phone] Durable Medical Equipment Social History Tobacco Use [...] walker. Pt stated she was advised by substitute teacher jigneshow up with orthopedic and they prescribed a walker for the pt. Pt wants script send over to [facility] [address] If any questions you can contact pt at [phone]. documented in this encounter Plan of Treatment Not on file documented as of this encounter Visit Diagnoses Not on filedocumented in this encounter Additional Health Concerns Assessment Noted Time PHQ-9 Depression Total Score: 6 10/23/20 22 10:04 AM EST documented as of this encounter Care Teams Bid Manager Relationship Specialty Start Date End Date Maranda Serna MD [address] [place] [address] PCP - General Family Medicine 08/01/21 documented as of this encounter
--- OUTSIDE RECORDS SUMMARY | 2025-02-25 12:14 | XMS_ITS | Patient Health Record ---
Author Organization [employer] Address [address] [facility] [id number] [address] Care Team Providers Care Painter And Decorator Name Role Phone Larisa Saldana Primary Care Provider [phone] ALLERGIES Allergen (clinical drug ingredient) Drug/Non Drug [...] diabetes mellitus without complications (E11.9) Active confirmed 479900681 Problem Type 2 diabetes mellitus with diabetic polyneuropathy (E11.42) Active confirmed 87150892 Problem Other chronic pain (G89.29) Active confirmed 02031566 Problem Age-related nuclear cataract, bilateral (H25.13) Active confirmed Nuclear senile cataract (975734343) Problem Diabetes (E11.9) Active confirmed Type II diabetes mellitus without complication (958656422) Problem Dyslipidemia (E78.5) Active confirmed 517869497 Problem HTN (hypertension) (I10) Active confirmed Hypertension (30501603) Problem Arthritis (M19.90) Active confirmed 372 3001 Problem intermediate teacher current use of insulin (Z79.4) Active confirmed 218942110 Problem Controlled diabetes mellitus with diabetic neuropathy (E11.40) Active confirmed Diabetic peripheral neuropathy associated with type 2 diabetes mellitus (6498530569814) Problem Type 2 diabetes mellitus with mild nonproliferative diabetic retinopathy without macular edema, bilateral (E11.3293) Active confirmed Mild nonproliferative retinopathy due to type 2 diabetes mellitus (211426669428955) Problem Left retinal detachment (H33.22) Active confirmed Serous r etinal detachment (40150289) Problem Menopausal and postmenopausal disorder (N95.9) Active confirmed 226073834 PLAN OF TREATMENT Pending Test Test Name [...] End Date MACKENZIE Hughes [address] [place] [phone] Ese Mendoza Self - patient is the insured MEDICAID DENT[place] [address] [place] [address] [id number] Ese Mendzoa Self - patient is the insured MEDICAL (GENERAL) HISTORY Medical History History ICD Code DM II RANJAN Pulmonary Artery Hypertesion Mild Mitral Incompetence Moderate carotid artery disease Surgical History Surgery Date(Month/Year) gallbladder 1982 tubal 1984 foot surgery metal plate right foot clef t 2010 breast reduction 2009 partial hysto,left ovaries Hospitalization History Reason Date(Month/Year) for above
--- OUTSIDE RECORDS SUMMARY | 2025-02-25 12:14 | XMS_ITS | Encounter Summary ---
Author Organization [facility] Address [address] [facility] 200 [place] [address] Phone Care Team Providers Care Spot Welder Body Assembly Name Role Phone Maranda Serna MD Primary Care Provider [phone] Encounter Details Date Type Department Care Team (Late st Contact Info) Description 05/17/2024 Office Communication [facility] [address] [place] [address] Marci Gleason ARNP [address] [address] Social History Tobacco Use Types Packs/Day Years Used Date Smoking Tobacco: Never Smokeless Tobacco: Never Alcohol Use Standard Drinks/Week Comments Yes 0 (1 standard drink = 0.6 oz pure alcohol) Intermittently Hot Amanda. Tea with [place] only if sick Comments Unknown Sex and [...] Visit [facility] [address] [facility] 204 [place] [address] Marci Gleason ARNP [address] [facility] 204 [place] [address] documented as of this encounter Visit Diagnoses Not on filedocumented in this encounter Care Teams Spot Welder Body Assembly Relationship Specialty Start Date End Date Maranda Serna MD [address] [place] [address] PCP - General Family Medicine 08/24/21 documented as of this encounter
== END 2025-02-25 11:08 | disposition home or self-care (01) ==
LOC: HO.CT 11:07
PROVIDERS: PCP Family Medicine; Visit Provider Family Medicine
DX: R91.1 Solitary pulmonary nodule (principal)
CPT/HCPCS: 71250

== ENCOUNTER → 2025-02-25 11:11 | Outpatient (BNV) | payer MEDICAID, SELFPAY | PROVIDERS: PCP Family Medicine; Visit Provider Radiology Diagnostic Radiology | DX: I25.10 Atherosclerotic heart disease of native coronary artery without angina pectoris (principal); R91.8 Other nonspecific abnormal finding of lung field | CPT/HCPCS: 71250 ==

== ENCOUNTER 2025-03-22 14:12 | Outpatient (AMB) | payer MEDICAID, SELFPAY ==
[2025-03-22 14:36] VITALS: BP 108/56; PULSE 98; O2SAT 95; BMI 36.6
--- NOTE | 2025-03-22 14:36 | MHC.OFFVIS ---
Vital Signs 03/22/25 14:36 Height 5 ft 2 in Weight 200 lb 6 oz BMI 36.6 BP 108/56 L Blood Pressure Location Lt brachial Position Sitting Pulse 98 Pulse Source Pulse Oximeter Pulse Oximetry (%) 95 Oxygen Delivery Method Room Air Intake Visit Reasons: Abnormal CT scan Allergies Pork/Porcine Containing Products [Pork/Porcine Product Derivatives] Allergy (Mild, Verified 03/22/25 14:38) SORES /ITCHING Seasonal Allergies Allergy (Mild, Verified 03/22/25 14:38) Itching nickel Adverse Reaction (Verified 03/22/25 14:38) Swelling and irritation HPI HPI Abnormal CT scan: Details: Ese is a pleasant 64 year old female, former minimal smoker, with underlying asthma, diabetes, stage 3 chronic kidney disease, hypertension, and hyperlipidemia. She was referred by PCP for pulmonary evaluation for chronic cough. She reports cough has been present for 10 years without significant change, mostly dry occasionally with clear sputum and associated dyspnea on exertion. She denies wheezing or chest tightness. [place] [facility] presenting to the ER with ongoing upper respiratory symptoms for 2 weeks which were then followed by chest heaviness, found to have rhino and enterovirus infection and NSTEMI in the setting of viral illness. She underwent cardiac cath and started on dual antiplatelet therapy now under the care of cardiology [place] [facility] [place] During [place] [facility] [place], CT chest revealed 7.6 mm nodule of LLL, repeat CT revealed resolution of 7.6 mm nodule, with residual 1 mm nodule of LLL. She reports bronchitic symptoms have resolved however continues with chronic cough. She reports intermittent symptoms of reflux, however no change with Omprazole. She reportedly underwent swallow study which was negative. She reports h/o asthma, dx as an adult never requiring intubation. She reports multiple first degree family members with asthma. Endorses second hand smoke exposure as a child. She denies occupational exposures. She endorses seasonal allergies, no recent allergy testing. [facility] Medical History Pancreatic insufficiency Pancreatic insufficiency Tubular adenoma CKD (chronic kidney disease) Anemia GERD (gastroesophageal reflux disease) Renal cyst Bladder prolapse, female, acquired Hx of gastric ulcer IBS (irritable bowel syndrome) Kidney stones High cholesterol Diabetes Surgical History Hx of endoscopy Hx of colonoscopy History of partial hysterectomy Hx of breast reduction, elective Hx of cholecystectomy Family History Father Heart attack DM2 (diabetes mellitus, type 2) Mother DM2 (diabetes mellitus, type 2) COPD (chronic obstructive pulmonary disease) Other No pertinent family history Social History Household Members: Family Housing: House Do you presently have visiting nurse or other home services: No Unable to assess alcohol history related to: Unknown Alcohol intake: never Patient Tobacco Use Status: Never used Tobacco Second Hand Smoke Exposure: No service: No Review of Systems Const Denies chills, Denies excessive sweating, Denies fever(s), Denies headache(s) and Denies night sweats Eyes Denies dry eyes, Denies irritation and Denies itchy eyes ENT Reports Normal hearing present, Denies headache(s), Denies nasal congestion, Denies nasal discharge, Denies post nasal drip and Denies sore throat Card Denies chest pain, Denies chest pain at rest, Denies chest pain with activity, Denies claudication, Denies leg edema, Denies orthopnea and Denies paroxysmal nocturnal dyspnea Resp Denies chest congestion, Denies excessive phlegm production, Denies pain on inspiration, Denies pain with cough, Denies stridor and Denies wheezing Musc Denies myalgias Neuro Reports Normal hearing present and Denies headache(s) Endo Denies excessive sweating Ethan/Lymph Denies lymphadenopathy Aller/Immun Denies itchy eyes and Denies wheezing Physical Exam Vital Signs: Last Vital Signs Pulse 98 03/22/25 14:36 BP 108/56 L 03/22/25 14:36 Pulse Ox 95 03/22/25 14:36 Oxygen Delivery Method Room Air 03/22/25 14:36 BMI result Body Mass Index 36.6 Const General: cooperative, healthy appearing, comfortable, no acute distress, well developed and alert Nutritional Appearance: obese Orientation/consciousness: patient oriented x3 Limitations: no limitations HEENT Head: Yes normal to inspection, Yes normocephalic and Yes atraumatic Ears: hearing grossly normal bilaterally and external ears normal Eyes General: appearance normal, both eyes and all related structures Eyelids: Yes eyelids normal Sclerae: sclerae normal EOM: EOMs intact bilaterally Neck Neck: Yes normal visual inspection and Yes no lymphadenopathy Lymphatic: no lymphadenopathy noted Chest Chest palpation & inspection: normal inspection of the chest Resp Effort & Inspection: normal respiratory effort, able to speak in complete sentences, no audible wheezes, no cough, no stridor, not tachypneic, no tripod positioning and no use of accessory muscles Auscultation: clear to auscultation bilaterally Cardio Jugular venous distension: no JVD Rate: regular rate Rhythm: regular rhythm Skin Other: warm, dry General skin exam: no rashes or lesions noted Neuro General: patient oriented x3 Cranial nerves: Yes Normal hearing present Cognition (Neuro): normal cognition Gait exam (Neuro): Normal gait present Extrem General: Yes normal to inspection, Yes capillary refill normal, Yes no clubbing, cyanosis or edema and Yes no pedal edema Psych Appearance: grossly normal and well kempt Speech and movement: Normal speech and movement present and Clear speech present Affect: normal affect Attitude: cooperative Thought process: Normal thought process present Thought content: Normal thought content present Insight: Good insight present (Psych) Judgement: Good judgement present (Psych) Results Reviewed Results Reviewed: [address] [address] [address] Scan Report Signed Patient: Ese Mendoza MR#: [id number] : 1960 Acct:[id number] Age/Sex: 64 / F ADM Date: 02/25/25 Loc: HO.CT Attending Dr: Maranda Serna MD Ordering Physician: Maranda Serna MD Date of Service: 02/25/25 Procedure(s): CT chest wo IV con Accession Number(s): [id number] cc: Maranda Serna MD~ Report Number: [id number]: Total DLP = 183.00 mGy-cm EXAMINATION: CT CHEST WITHOUT CONTRAST CLINICAL INFORMATION: Pulmonary nodules. COMPARISON: November 27, 2024 TECHNIQUE: Multidetector volumetric CT imaging of the chest was done. Axial MIP volume rendering provided. Sagittal and coronal reformatted images were obtained. This CT examination was performed using dose optimization techniques as appropriate, variously including the following: *Automated exposure control *Adjustment of mA and/or kV according to patient size (this includes techniques or standardized protocols for targeted exams where dose is matched to indication/reason for exam; i.e. extremities or head) *Use of iterative reconstruction technique DLP: 183 mGy centimeter. FINDINGS: HOME HEALTH CARE WORKER: Large body habitus. Vascular clips right upper quadrant abdomen and likely cholecystectomy procedure. Multilevel thoracolumbar spondylosis. Calcifications in the right breast shadow. LUNGS: 1 mm noncalcified pulmonary nodule in the periphery of the left lower lung lobe. No gross consolidation. No bronchiectasis. No honeycombing. Respiratory airways is patent. MEDIASTINUM: No lymphadenopathy. Small volume pericardial effusion. The heart is not enlarged. Calcified plaques in the thoracic aorta and the coronary arteries. No aneurysm, thoracic aorta. CORONARY ARTERY CALCIFICATION: Calcified plaques. PLEURA: No pleural effusion. No pneumothorax. AXILLA: No lymphadenopathy. UPPER ABDOMEN: Vascular desiccation's involving splenic artery and celiac trunk. OSSEOUS STRUCTURES: Multilevel spondylosis more conspicuous at T7-8 and T9-10 levels with incomplete ankylosis at T7-8. No acute fracture or gross listhesis. S-shaped curvature of the thoracolumbar spine. Dystrophic calcifications in the breast, right more pronounced on the left side. Degenerative changes in the acromioclavicular joints, bilaterally. CT/CT chest wo IV con IMPRESSION: Overall resolved pulmonary nodules in the left lower lung lobe with nonspecific persistent 1 mm noncalcified pulmonary nodule, left lung base. Overall improved aeration/resolved airspace disease. Coronary artery disease and atherosclerosis disease. Fleischner guidelines were followed. Electronically signed by: Brandon Mosqueda MD 02/25/2025 11:55 AM EDT Assessment & Plan Assessment & Plan (1) Asthma: Code(s): J45.909 - Unspecified asthma, uncomplicated Category: Medical (2) Environmental allergies: Code(s): Z91.09 - Other allergy status, other than to drugs and biological substances Category: Medical (3) Pulmonary nodule: Code(s): R91.1 - Solitary pulmonary nodule Category: Medical Plan Ese presents for pulmonary evaluation with known history of asthma. Will empirically start Breo. Discussed importance of good oral hygiene to prevent thrush. Will send for PFT to assess for obstructive defect. Will send for RAST to assess for an allergic component. Will repeat chest CT in one year to assess stability of LLL pulmonary nodule. All questions were answered and patient is agreement of plan. Will follow-up in 6-8 weeks or sooner if needed. Orders: Orders Complete Blood Count Auto Diff 03/22/25 Z91.09 - Other allergy status, other than to drugs and biological substances Resp Allergy Profile Region I 03/22/25 Z91.09 - Other allergy status, other than to drugs and biological substances PFT pulmonary function test Today J45.909 - Unspecified asthma, uncomplicated Immunoglobulin E 03/22/25 Z91.09 - Other allergy status, other than to drugs and biological substances CT chest wo IV con 11 Months R91.1 - Solitary pulmonary nodule Medications: New fluticasone furoate-vilanterol 100-25 mcg/dose (Breo Ellipta) 1 inh inhalation DAILY 60 ea 2RF Coding Level of Care Code New Pt Level 4 (80464) Diagnoses Asthma J45.909 Environmental allergies Z91.09 Pulmonary nodule R91.1
--- OUTSIDE RECORDS SUMMARY | 2025-03-22 15:26 | XMS_ITS | Encounter Summary ---
Author Organization [facility] Address [address] [place] [address] Care Team Providers Care Engineer Soils Name Role Phone Viet Sánchez Unavailable [phone] Viet Sánchez Primary Care Provider Encounter Details Date Type Department Care Team (Late st Contact Info) Description 08/06/2018 Scanned Document [facility] [place] [address] [place] [address] Provider, MD Sheryl [address] [place] [address] Social History Tobacco Use Types Packs/Day Years [...] on filedocumented in this encounter Care Teams Engineer Soils Relationship Specialty Start Date End Date Viet Sánchez PA [address] [place] [address] PCP - General 06/18/18 Viet Sánchez PA [address] [place] [id number] 06/18/18 documented as of this encounter
--- OUTSIDE RECORDS SUMMARY | 2025-03-22 15:26 | XMS_ITS | Data Portability ---
Author Organization [facility] - Clarence Sen MD, [facility]- Address [address] [place] [id number] Assessment No assessment recorded. Plan of Treatment Reminders Order Date Submit Date Provider Last Modified By Organization Details Last Modified Time Details Appointments None recorded. Lab urinalysis, complete 2016 017 tmcclung In-House Results, For Internal Use Only, Do Not Delete/merge, [id number] 7 11:38:12 urinalysis, complete 2016 017 tmcclung In-House Results, For Internal Use Only, Do Not Delete/merge, [id number] 7 11:38:12 urinalysis, complete 2016 017 tmcclung In-House Results, For Internal Use Only, Do Not Delete/merge, [id number] 7 13:16:50 urinalysis, complete 2016 017 tmcclung In-House Results, For Internal Use Only, Do Not Delete/merge, [id number] 7 13:16:50 urinalysis, complete 2016 017 tmcclung In-House Results, For Internal Use Only, Do Not Delete/merge, [id number] 7 14:28:33 urinalysis, complete 2016 017 tmcclung In-House Results, For Internal Use Only, Do Not Delete/merge, [id number] 7 14:28:33 Referral None recorded. Procedures None recorded. Surgeries None recorded. Imaging US, retroperito neum 2016 017 tmcclung In-House Results, For Internal Use Only, Do Not Delete/merge, [id number] 7 14:28:33 Medication Orders None recorded. Patient TargetsNo targets recorded. Patient Instructions Encounter Date Encounter Id Patient Instructions Last Modified By Organization Details Last Modified Time 05/06/2017 [id number] Urinary Tract Infection (UTI) in Women: Care Instructions [email or web address] Not available 05/09/2017 14:28:33 bladder training : care instructions [email or web address] Not available 05/09/2017 14:28:33 kegel exercises: care instructions tmcclung Not available 05/09/2017 14:28:33 Stress Incontinence: Care Instructions [email or web address] Not available 05/09/2017 14:28:33 Urge Incontinence: Care Instructions [email or web address] Not available 05/09/2017 14:28:33 07/30/2017 [id number] Urinary Tract Infection (UTI) in Women: Care Instructions [email or web address] Not available 08/04/2017 13:16:50 bladder training : care instructions tmcclung Not available 08/04/2017 13:16:50 kegel exercises: care instructions tmcclung Not available 08/04/2017 13:16:50 Stress Incontinence: Care Instructions tmcclung Not available 08/04/2017 13:16:50 Urge Incontinence: Care Instructions tmcclung Not available 08/04/2017 13:16:50 09/29/2017 [id number] Urinary Tract Infection (UTI) in Women: Care Instructions [email or web address] Not available 10/01/2017 12:43:07 Reason for Referral None Reported. Results Created Date Observation Date Name Description Value Unit Range Abnormal Flag Note LastModifiedBy Organization Detail LastModifiedTime 09/29/20 17 09/29/2017 urina lysis , compl ete Leukocytes Negati ve Not Available In-House Results For Internal Use Only, Do Not Delete/merge, [id number] 09/29/2017 18:46:44 09/29/20 17 09/29/2017 urina lysis , compl ete Nitrite negati ve Not Available In-House Results For Internal Use Only, Do Not Delete/merge, [id number] 09/29/2017 18:46:44 09/29/20 17 09/29/2017 urina lysis [...] 09/29/2017 urina lysis , compl ete Specific Putnam 1.020 Not Available In-[place]ise se Results For [...] 09/29/2017 urina lysis , compl ete Specific [place]nam 1.025 Not Available In-[place] se Results For [...] 07/30/2017 urina lysis , compl ete Specific Putnam 1.020 Not Available In-[place] se Results For [...] 07/30/2017 urina lysis , compl ete Specific [place]nam 1.030 Not Available In-[place] se Results For [...] 05/06/2017 urina lysis , compl ete Specific Putnam 1.015 Not Available In-[place] se Results For [...] 05/06/2017 urina lysis , compl ete Specific [place]nam 1.025 Not Available In-[place] se Results For [...] routine FINAL REPORT abnormal Not Available [facility] ([facility]) [address] [place], [address], 05/08/2017 16:19:18 05/06/2005/08/2017 cultu re, urine result 1 KLEBSI MONICA PNEUMO NIAE abnormal GREAT ER THAN 100,0 00 COLON Y FORMI NG UNITS PER ML Not Available [facility] ([facility]) [address] [facility], [place], [address], 05/08/2017 16:19:18 05/06/20 17 05/08/2017 cultu re, [...] THOPR IM/ANDRADE LFA S Not Available [facility] ([facility]) [address] [place], [address], 05/08/2017 16:19:18 07/30/20 17 08/01/2017 cultu re, urine urine culture, routine FINAL REPORT abnormal Not Available [facility] ([facility]) [address] [place], [address], 08/01/2017 16:22:57 07/30/20 17 08/01/2017 cultu re, urine result 1 KLEBSI MONICA PNEUMO NIAE abnormal Great er than 100,0 00 colon y formi ng units per mL Not Available [facility] ([facility]) [address] [place], [address], 08/01/2017 16:22:57 07/30/20 17 08/01/2017 cultu re, [...] thopr im/Andrade lfa S Not Available [facility] ([facility]) [address], [place], [address], 08/01/2017 16:22:57 05/15/20 17 05/15/2017 US, renal No observ ation record ed. [email or web address] [facility] [address] [facility], [place], [address], 07/30/2017 17:43:40 07/30/20 17 05/15/2017 US, retro [...] LastModified Time 05/15/2017 US, renal completed [email or web address] [facility] [address] [facility], [place], [address], 07/30/2017 17:43:40 05/15/2017 US, retroperitoneum completed weiser [...] Updated DateTime 7 157.48 cm 37.5 kg/m2 30892.4 4 g 84 /min 98 mm[Hg] 41 mm[Hg] Ashley Sen MD 7 15:17:41 Date Recorded Body height Body mass index (BMI) Body weight Heart rate Systolic blood pressure Diastolic blood pressure Provider Name and Address Organization Details Last Updated DateTime 7 160.02 cm 35.8 kg/m2 39624.6 6 g 87 /min 113 mm[Hg] 49 mm[Hg] Ashley Sen MD 7 15:05:21 Date Recorded Body height Body mass index (BMI) Body weight Heart rate Systolic blood pressure Diastolic blood pressure Provider Name and Address Organization Details Last Updated DateTime 7 160.02 cm 35.8 kg/m2 70698.6 6 g 98 /min 107 mm[Hg] 51 mm[Hg] Ashley Sen MD 7 17:42:23 Social History Question Answer Notes LastModified by Organizat ion Details LastModified Time Tobacco Smoking Status Never Smoker MARCOS Quiajno MD 05/06/2017 14:41:57 What Is Your Level Of Caffeine Consumption? None Information not available 05/06/2017 What Was The Date Of Your Most Recent Tobacco Screening? 09/29/2017 Information n ot available 06/02/2019 Sex: Unknown Functional Status Question Answer Note LastModified by Organization D etails LastModified Time What is your level of alcohol consumption? None Information not available 05/06/2017 Mental Status None recorded. Family History Relationship Description Onset Age of this Age Resolved Age Notes LastModified by Organization Details LastModified Time Unspecified Relation Heart disease btena Not available 2016 16:44:20 Unspecified Relation Diabetes mellitus btena Not available 2016 16:44:26 Unspecified Relation Myocardial infarction btena Not available 05/06 16:44:35 Unspecified Relation Hypertensive disorder btena Not available 2016 16:44:41 Unspecified Relation Malignant neoplasm of prostate btena Not available 2016 16:44:48 [...] SNOMED-CT Code Diagnosis ICD10 Code Diagnosis Note [id number] Clarence Sen MD [address] [place] [address] 05/06/2017 14:29:22 05/06/2017 17:13:49 Mixed urinary incontinence 382878124 N39.46 Incomplete emptying of urinary bladder 094256429 R39.14 Urinary tr act infectious disease 23322555 N39.0 [id number] Clarence Sen MD [address] [place] [address] 07/30/2017 14:16:01 07/30/2017 17:45:30 Mixed urinary incontinence 102864853 N39.46 Cystitis 96297849 N30.90 Urinary tr act infectious disease 87428485 N39.0 [id number] Clarence Sen MD [address] [place] [address] 09/29/2017 17:41:48 09/30/2017 11:37:17 Urinary tract infectious disease 24069172 N39.0 Health Concerns Section Related Observation LastModified by Organization Detai ls LastModified Time None Recorded Concern Status LastModified by Organization Details LastModified Time None Recorded Advance Directives Directive None Recorded Payers Encounter Date Sequence Insurance Name Policy Number Policy Singer Covered Member ID Singer Member ID Guarantor Name 05/06/2017 1 [facility] [facility] [place]AC[place] - [id number] Ese N Reji [id number] Ese N Reji 07/30/2017 1 [facility] [facility] [place] - [id number] Ese N Reji [id number] Ese N Reji 09/29/2017 1 [facility] - [id number] Ese N Reji [id number] Ese N Reji OBGyn Episode No OBEpisode recorded.
--- OUTSIDE RECORDS SUMMARY | 2025-03-22 15:26 | XMS_ITS | Data Portability ---
Author Organization [place] - [facility], Allergy Address [address] [address] Assessment No assessment recorded. Plan of Treatment Reminders Order Date Submit Date Provider Last Modified By Organization Details Last Modified Time Details Appointments Test Results 2024 04:00P M GENARO Barrett MD Not available Not available Not available Lab None recorded. Referral None recorded. Procedures None recorded. Surgeries None recorded. Imaging CT, neck, soft tissue, w/ contrast - evaluate lingual tonsil hyperophy 2023 024 [facility], [address] [place] [address], [address], 07/01/2024 12:06:24 [place], modified barium swallow study 2023 024 [facility], [address] [place] [address], [address], 07/29/2024 15:47:26 Medication Orders None recorded. Patient TargetsNo targets recorded. Patient InstructionsNo instructions recorded. Reason for Referral None Reported. Results Created Date Observation Date Name Description Value Unit Range Abnormal Flag Note LastModifiedBy Organization Detail LastModifiedTime 07/29/2007/29/2024 [place], modif ied izaiah mccabe ow study No observ ation [facility]. [facility] [address], [place], [address], 08/02/2024 14:43:11 09/28/20 24 09/25/2024 MRI, head + neck + orbit s, w/wo contr ast [facility] Access ion Number : [id number] Patien t Name: Ese Mendoza Record Number : [id number] Date of : 1959 Date of Exam: 2023 Referr daniel Physic oliver: Vineet nicholas, Genaro [facility] [place] [address] [place] [address] Exam: MR Orbits , Face, Neck (C-/C+ ) CPT 96517 Room Descri ption: Seminary GE Pion 3T MRI of the soft [...] Electr onical ly Signed By: Vikram mike [facility] [address], [place], [address], 10/01/2024 16:52:47 Result Notes None recorded. 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 Procedures Surgical History Date Name Laterality Status Provider Name and Address Organization Details Recorded Time 07/01/2024 FFL_RE completed GENARO PELAEZ MD [address] [address], [place], [address], [facility] [place] 07/01/2024 12:01:28 Imaging Results Imaging Date Name Status LastModified by Organiz ation Details LastModified Time 07/29/2024 [place], modified barium swallow study completed [facility] [address] [address], [place], [address], 08/02/2024 14:43:11 09/25/2024 MRI, head + neck + orbits, w/wo contrast completed [facility] [place], [address], 10/01/2024 16:52:47 Procedure Notes None recorded. Medical Equipment None Reported. Allergies Allergen ID Allergen Name Allergen Category Reaction Reaction Severity Criticality Documentation Date Start Date Code Code System Note Provider Name and Address Organization Details Recorded Time 096483 rubber, unspecifi ed environme nt,medica tion Not available Not available Not available 07/01/2024 12077 5 UNK Ashu quesada [place] - [facility] 4 11:45:16 235020 pork allergeni c extract food,medi cation Not available Not available Not available 07/01/2024 07674 8 RxNorm Ashu quesada [place] - [facility] 4 11:45:41 Medications Name Sig Start Date [...] Available Not Available No t Available FreeStyle [place] Lite kit USE DIRECTED TO TEST BLOOD [...] Available No t Available FreeStyle [place] 2 [place] USE DIRECTED active Not Available Not Available No t Available Vitals Date Recorded Body height Body mass index (BMI) Body weight Provider Name and Address Organization Details Last Updated DateTime 07/01/2024 157.48 cm 38.4 kg/m2 94400.4 g Ashu Ramírez [facility] 07/01/2024 11:54:39 Social History None recorded. Functional Status None recorded. Mental Status None recorded. Family History Nothing Reported. Medical History No medical history recorded. Gynecological HistoryNo gynecological history recorded. Obstetrics History GPAL:G 0 P 0 0 0 0 Past Encounters Encounter ID Performer Location Encounter Start Date Encounter Closed Date Diagnosis/Indication Diagnosis SNOMED-CT Code Diagnosis ICD10 Code Diagnosis Note [id number] GENARO PELAEZ MD [facility] [address] [place] [address] 07/01/2024 11:04:43 07/01/2024 12:01:09 Oropharyngeal dysphagia 51817399 R13.12 I recommend an MBS to better evaluate. Benign joy plasm of oropharynx 27898978 D10.5 she has symmetric lingual tonsil hypertroph y on laryngosoc py. I will evaluate with a contrasted CT to make sure there are no tumors. Dysphagia 72065494 R13.1 0 see above Health Concerns Section Related Observation LastModified by Organization Detai ls LastModified Time None Recorded Concern Status LastModified by Organization Details LastModified Time None Recorded Advance Directives Directive None Recorded Payers Insurance Date Sequence Insurance Name Policy Number Policy Singer Covered Member ID Singer Member ID Guarantor Name 08/12/2024 1 [place] [facility] Ese Mendoza [id number] Ese Mendoza Notes Date Note Type Note [...] Takes omeprazole for GERD. GENARO PELAEZ MD [address] [place] [address], [address], [place] - [facility] 07/01/2024 12:04:21 OBGyn Episode No OBEpisode recorded.
--- OUTSIDE RECORDS SUMMARY | 2025-03-22 15:26 | XMS_ITS | Encounter Summary ---
Author Organization [employer] Address 75 [facility] 7t [place] [address] Care Team Providers Care Seafood And Service Meat Manager Name Role Phone Maranda Serna MD Primary Care Provider [phone] Encounter Details Date Type Department Care Team ([facility] st Contact Info) Description 04/22/2023 Orders Only [facility] 230 [place] [address] Maranda Serna MD 230 [place] [address] Left foot pain (Primary Dx); Type 2 diabetes mellitus with hyperglycemia, with long-term current use of insulin ([facility]) Social History Tobacco Use [...] Care Team (Late st Contact Info) Description 04/12/2025 3:30 PM EDT Office Visit [facility] [address] [place] [address] Maranda Serna MD 230 [place] [address] documented as of this encounter Visit Diagnoses Diagnosis Left foot pain- Primary Pain in soft tissues of limb Type 2 diabetes mellitus with hyperglycemia, with long-term current use of insulin ([facility]) documented in this encounter Additional Health Concerns Assessment Noted Time PHQ-9 Depression Total Score: 6 10/23/20 22 10:04 AM EST documented as of this encounter Care Teams Seafood And Service Meat Manager Relationship Specialty Start Date End Date Maranda Serna MD [address] [place] [address] PCP - General Family Medicine 08/01/21 documented as of this encounter
--- OUTSIDE RECORDS SUMMARY | 2025-03-22 15:26 | XMS_ITS | Encounter Summary ---
Author Organization [employer] Address 75 [facility] 7t [place] [address] Care Team Providers Care Software Developer Name Role Phone Maranda Serna MD Primary Care Provider [phone] Reason for Visit * Reason Comments Med Refill Encounter Details Date Type Department Care Team (Late st Contact Info) Description 01/12/2025 Refill [facility] 230 [place], [place] [phone] Yesica Naylor MD 230 [place] [address] Social History Tobacco Use Types Packs/Day Years [...] Description 04/12/2025 3:30 PM EDT Office Visit [facility] 230 [place] [address] Maranda Serna MD 230 [place] [address] documented as of this encounter Visit Diagnoses Not on filedocumented in this encounter Additional Health Concerns Assessment Noted Time PHQ-9 Depression Total Score: 6 10/23/20 22 10:04 AM EST documented as of this encounter Care Teams Software Developer Relationship Specialty Start Date End Date Maranda Serna MD [address] [place] [address] PCP - General Family Medicine 08/01/21 documented as of this encounter
--- OUTSIDE RECORDS SUMMARY | 2025-03-22 15:26 | XMS_ITS | Encounter Summary ---
Author Organization [facility] Address [address] [place] [address] Care Team Providers Care Fisher Sponge Hooking Name Role Phone Viet Sánchez Unavailable [phone] Viet Sánchez Primary Care Provider [phone] Encounter Details Date Type Department Care Team (Late st Contact Info) Description 07/07/2018 Scanned Document [facility] [place] [address] [facility] [address] [place] [address] Provider, Sheryl, [address] [place] [address] Social History Tobacco Use Types Packs/Day Years [...] on filedocumented in this encounter Care Teams Fisher Sponge Hooking Relationship Specialty Start Date End Date Viet Sánchez PA [address] [place] [address] PCP - General 06/18/18 Viet Sánchez PA [address] [place] [address] 06/18/18 documented as of this encounter
--- OUTSIDE RECORDS SUMMARY | 2025-03-22 15:26 | XMS_ITS | Clinical Summary ---
Author Organization 175 [facility] Address 175 [place] [address] Phone Care Team Providers Care Section Beamer Name Role Phone Machelle Swann MD Primary Care Provider [phone] Allergies Active Allergy Reactions Criticality Noted Date [...] Dose by Does not apply route. 09/23/20 23 Active blood sugar diagnostic (FreeStyle Lite Strips) [...] IN THE MORNING, EVENING, AND BEDTIME 09/16/20 23 Active insulin degludec (Tresiba FlexTouch U-100) 100 unit/mL (3 mL) injection pen Inject 90 Units into the skin. 09/24/20 Active insulin lispro (HumaLOG KwikPen) 100 unit/mL injection pen INJECT 14 UNITS SUBCUTANEOUSLY THREE TIMES DAILY BEFORE MEALS 08/25/20 23 Active ipratropium (ATROVENT) 42 mcg (0.06 %) nasal spray 1 [place] by Nasal route. 09/24/20 Active omega-3 acid [...] osteoarthritis; plantar fasciitis - referred to a environmental engineer scientist; waiting for an appt - check the [...] hyperkalemia and cough -Currently prescribed Dapagliflozin from corrugated sheet material sheeter -Follow up in 3-6 mo, sooner if [...] Last Assessment & Plan: - followed by [facility] - no anatomical pancreatic abnormality on MRI in Dec 2022 - continue vegan / plant-based pancreatic enzyme Right knee pain 12/16/2022 Allergic rhinitis 10/12/2022 Anemia 10/12/2022 Overview (08/25/2024): Last Assessment & Plan: - likely due to chronic diseaes - Hx iron infusion - 12/24/22 Hgb 11.7, Hematocrit 35.7 Chronic idiopathic constipation 10/12/2022 Overview (08/25/2024): Last Assessment & Plan: -Followed by [facility], last seen 08/06/22 -EGD and Colonoscopy on 12/24/21; showed Tubular Adenoma, she was recommended to repeat in 3 years. - pt has been using castor oil - continue trying fiber-rich diet and increasing physical activity as tolerated. - continue Senakot as prescribed Chronic kidney disease, stag e III (moderate) ([facility] V24, [facility] V28) 10/12/2022 Overview (08/25/2024): Last Assessment & Plan: - Labor Operator, Dr. 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 Tsai is prescribing Dapagliflozin (Farxiga) - Previously on Lisinopril, but was disccontinued due to cough / K - Avoid nephrotoxic drugs - Renal dose meds Gastroesophageal reflux disease 10/12/2022 Overview (08/25/2024): Last Assessment & Plan: -s/p EGD 12/24/21 -followed by [facility] -continue omeprazole 40mg daily -previously tried pantoprazole and lansoprazole; pt prefers omeprazole. -previously prescribed famotidine. Max dose for her renal function is 20 mg daily. Pt does not take it regularly. Irritable bowel syndrome 10/12/2022 Overview (08/25/2024): Last Assessment & Plan: - followed by [facility] - continue current treatment plan per GI - low FODMAP diet - pt is prescribed simethicone, Sennakot, citrucel, but does not like taking it regularly Osteopenia 10/12/2022 Atrial fibrillation ([facility] V24, [facility] V28) 0 12/25/2021 Cobalamin deficiency 12/25/2021 Diabetic retinopathy ([facility] V24, [facility] V28) 12/25/2021 Nephrolithiasis 12/25/2021 Overview (08/25/2024): Last Assessment & Plan: - seen by urologist, last visit on Vitamin D deficiency 12/25/2021 Diabetic peripheral neuropat hy associated with type 2 diabetes mellitus ([facility] V24, [facility] V28) 11/22/2019 Nonrheumatic mitral valve regurgitation 11/09/20 Nonrheumatic tricuspid valve regurgitation 11/09 Obstructive sleep apnea syndrome 11/09/2019 Overview (08/25/2024): Last Assessment & Plan: - Pt does not feel comfortable with CPAP SOB (shortness of breath) 11/09/2019 Type 2 diabetes mellitus wit hout complication ([facility] V24, [facility] V28) 11/09/2019 Arthritis 03/03/2019 Chronic cough 01/26/2019 Moderate persistent asthma with acute exacerbati on 01/26/2019 Pulmonary hypertension ([facility] V24, [facility] V28 ) 12/31/2018 Pulmonary arterial hypertension ([facility] V24, [facility] V28) 11/19/2018 Ulcer of foot ([facility] V24, [facility] V28) 011 Encounters Date Type Department Care Team Description 03/17/2025 2:00 PM EDT Office Visit Orthopedic Surgery - [address] [phone] Damien Centeno, VENESSA Controlled type 2 diabetes with neuropathy ([facility] V24, [facility] V28) (Primary Dx); Capsulitis of metatarsophalangeal (MTP) joint of right foot; Pain in toes of both feet; Dermatophytosis, nail from Last 3 Months Immunizations Name Administration Dates Next Due Pfizer [...] - - Weight 93.4 kg (206 lb) 03/17/2025 2:15 PM EDT Height 157.5 cm (5' 2.01 ) 03/17/2025 2:15 PM ED T Body Mass Index 37.67 03/17/2025 2:15 PM EDT Plan of Treatment Upcoming Encounters Date Type Department Care Team (Late st Contact Info) Description 05/19/2025 2:15 PM EDT Office Visit Orthopedic Surgery - [place] [address] [address] [address] Damien Centeno DPM [address] [address] Health Maintenance Due Date Last Done Comments Breast Cancer Screening 1960 Diabetes: Annual Foot Exam 1970 Diabetes: Annual Retina Eye Exam 1970 Cervical Cancer Screening: Pap Smear 1981 Zoster Vaccines (1 of 2) 2010 RSV Immunization Adult Patients (1 - Risk 60-74 years 1-dose series) 2020 Colorectal Cancer Screening: Colonoscopy 12/10/2023 Diabetes: Annual Urine Albumin-Creatinine Ratio (uACR) 12/10/2023 07/24/2022, 02/09/2019, 02/09/2019 HIV Screening 12/10/2023 Hepatitis C Screening 12/10/2023 Social Influencers of Health Screening 12/10/2023 Diabetes: Annual GFR (Glomerular Filtration Rate) 12/30/2024 12/30/2023, 12/24/2018 Hypertension/CHF/CAD Annual BMP Blood Test 12/30/2024 12/30/2023, 12/24/2018 COVID-19 Vaccine (5 - Pfizer risk ) 02/03/2025 08/06/2024, 08/31/2021, 03/05/2021, Additional history exists Diabetes: Blood Sugar Control Test (HGBA1C) 07/20/2025 01/17/2025, 07/19/2024, 12/30/2023, Additional history exists Depression Screening 01/17/2026 01/17/2025 Cholesterol Screening (Lipid Panel) 12/30/2028 12/30/2023 DTaP,Tdap,and Td Vaccines (2 - Td or Tdap) 07/08/2032 07/08/2022 Hepatitis B Vaccines Completed 09/23/2023, 12/16/2022, 07/08/2022 Pneumococcal Vaccine: 50+ Years Completed 09/23/2023, 01/01/2021 Pneumococcal Vaccine: Pediatrics (0 to 5 Years) and At-Risk Patients (6 to 64 Years) Completed 09/23/2023, 01/01/2021 Influenza Vaccine Completed 08/06/2024, , 10/14/2022, Additional [...] Procedure Name Priority Date/Time Associated Diagnosis Comments HM ANNUAL BMP BLOOD TEST Routine 12/30/2023 HEMOGLOBIN A1C Routine 12/30/2023 LIPID PANEL Routine 12/30/2023 HM URINE ALBUMIN CREATININE RATIO Routine 07/24/2022 from Last 3 Months or Most Recently Relevant to Health Maintenance Results * Annual BMP Blood Test (12/30/2023) Pathologist [facility] Annual BMP Blood Test Abstracted Result [facility] Provider HEALTH MAINTENANCE Final Result * Hemoglobin A1c (12/30/2023) Pathologist [facility] Hemoglobin A1C 0.0 % Comment:no interpretation Blood Venous blood specimen / Unknown Result [facility] Provider LAB BLOOD ORDERABLES Machelle l Result * Lipid panel (12/30/2023) [facility] Triglycerides 0 mg/dL Comment:no interpretation Cholesterol 0 mg/dL Comment:no interpretation HDL 0 mg/dL Comment:no interpretation LDL Cholesterol 0 mg/dL Comment:no interpretation Blood Venous blood specimen / Unknown Result [facility] Provider LAB BLOOD ORDERABLES Machelle l Result * Urine Albumin Creatinine Ratio (07/24/2022) Pathologist [facility] Urine Albumin Creatinine Ratio Abstracted Result [facility] Provider HEALTH MAINTENANCE Final Result from Last 3 Months or Most Recently Relevant to Health Maintenance Insurance MEDICAID - [place] Care Teams Section Beamer Relationship Specialty Start Date End Date Machelle Swann MD [address] [place] [address] [place] [address] PCP - General 10/15/12
--- OUTSIDE RECORDS SUMMARY | 2025-03-22 15:26 | XMS_ITS | Encounter Summary ---
Author Organization [employer] Address 75 [facility] 7t [place] [address] Care Team Providers Care Check Weigher Name Role Phone Maranda Serna MD Primary Care Provider [phone] Reason for Referral * Imaging (Routine) - Closed Specialty Diagnoses / Procedures Referred By Contjacque t Referred To Contact Radiology Diagnoses Pulmonary nodule Procedures CT Chest w/o Contrast Maranda Serna MD [address] [place] [address] Phone: tel: fax: [address] Phone: tel: fax: Referral ID Status Reason Start Date Expiration Date Visits Re quested Visits Authorized [id number] Closed 02/07/2025 02/07/2026 1 1 Encounter Details Date Type Department Care Team (Late st Contact Info) Description 02/07/2025 Orders Only [facility] 230 [place], [place] [phone] Maranda Serna MD [address] [place], [place] [phone] Pulmonary nodule (Primary Dx) Social History Tobacco [...] Description 04/12/2025 3:30 PM EDT Office Visit [facility] [address] [place] [address] Maranda Serna MD [address] [place] [address] documented as of this encounter Procedures Procedure Name Priority Date/Time Associated Diagnosis Comments CT CHEST WO CONTRAST Routine 02/25/2025 11:15 AM EDT Pulmonary nodule documented in this encounter Results * CT Chest w/o Contrast (02/25/2025 11:15 AM EDT) Anatomical Region Laterality Modality Body, Chest Computed Tomogra phy 02/25/2025 11:1 5 AM EDT Narrative 02/25/2025 11:59 AM EDT ? [facility] ?[address] ?[place] [address] ? CT Scan Report ? Signed ? Patient: Reji,Ese ?MR#: [id number] ?? 8 ? : 1960 ?Acct:[id number] ? Age/Sex: 64 / F ?ADM Date: 02/25/25 ? Loc: HO.CT ? Attending Dr: Maranda Serna MD ? Ordering Physician: Maranda Serna MD ?? Date of Service: 02/25/25 ?? Procedure(s): CT chest wo IV con ?? Accession Number(s): [id number] ? cc: Maranda Serna MD ? Report Number: ?? [id number]: Total DLP = ??183.00 mGy-cm ?? EXAMINATION: [...] DLP: 183 mGy centimeter. ? FINDINGS: ? STEEL ERECTOR: Large body habitus. ?? Vascular clips right [...] DD/ 1115 ? TD/TT: 02/25/25 1124 ? Emt Intermediate: ? Procedure Note Constantin Falcon - 02/25/[address] [address] [address] Scan Report Signed Patient: Kristen Mendoza#: [id number] 8 : 1960Acct:[id number] Age/Sex: 64 / FADM Date: 02/25/25 Loc: HO.CT Attending Dr: Maranda Serna MD Ordering Physician: Maranda Serna MD Date of Service: 02/25/25 Procedure(s): CT chest wo IV con Accession Number(s): [id number] cc: Maranda Serna MD Report Number: [id number]: Total DLP = 183.00 mGy-cm EXAMINATION: CT [...] reconstruction technique DLP: 183 mGy centimeter. FINDINGS: STEEL ERECTOR: Large body habitus. Vascular clips right upper [...] 02/25/25 1155 DD/ 1115 TD/TT: 02/25/25 1124 Emt Intermediate: Maranda Serna MD [facility] CT PROCEDURES Edited Result - Final documented in this encounter Visit Diagnoses Diagnosis Pulmonary nodule- Primary Other diseases of lung, not elsewhere classified documented in this encounter Additional Health Concerns Assessment Noted Time PHQ-9 Depression Total Score: 0 01/18/20 25 1:12 PM EDT documented as of this encounter Care Teams Check Weigher Relationship Specialty Start Date End Date Maranda Serna MD [address] [place] [address] PCP - General Family Medicine 08/01/21 documented as of this encounter
--- OUTSIDE RECORDS SUMMARY | 2025-03-22 15:26 | XMS_ITS | Encounter Summary ---
Author Organization [employer] Address [address] [place] [address] Care Team Providers Care Net Developer Consultant Name Role Phone Maranda Serna MD Primary Care Provider [phone] Encounter Details Date Type Department Care Team ([facility] st Contact Info) Description 01/28/2025 Orders Only [facility] [address] [place] [address] Maranda Serna MD [address] [place], [place] [phone] Type 2 diabetes mellitus with hyperglycemia, with long-term current use of insulin ([facility]) Social History Tobacco Use Types Packs/Day [...] Description 04/12/2025 3:30 PM EDT Office Visit [facility] [address] [place] [address] Maranda Serna MD [address] [place] [address] documented as of this encounter Visit Diagnoses Diagnosis Type 2 diabetes mellitus with hyperglycemia, with long-term current use of insulin ([facility]) documented in this encounter Additional Health Concerns Assessment Noted Time PHQ-9 Depression Total Score: 0 01/18/20 25 1:12 PM EDT documented as of this encounter Care Teams Net Developer Consultant Relationship Specialty Start Date End Date Maranda Serna MD [address] [place] [address] PCP - General Family Medicine 08/01/21 documented as of this encounter
--- OUTSIDE RECORDS SUMMARY | 2025-03-22 15:26 | XMS_ITS | Clinical Summary ---
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 - Will obtain lab work. Also curious to see radiographic imaging of the hands, feets, SI and lumbar spine. Will obtain interval history from ruffler Karlee Le. - RTC in 4 months [...] polyneuropathy, with long-term current use of insulin ([facility]) POCT HEMOGLOBIN, A1C Routine 02/09/2019 8:10 AM EDT Type 2 diabetes mellitus with diabetic polyneuropathy, with long-term current use of insulin ([facility]) HIV COMBO ANTIGEN/ANTIBODY Routine 10/06/2018 3:59 PM EST Polyarthralgia from Last 3 Months or Most Recently Relevant to Health Maintenance Results * Microalbumin/creatinine ratio (02/09/2019 10:15 AM EDT) Microalbumin/Creat Ratio 20 2 - 20 mg/g Creat 02/09/2019 11:55 AM EDT [facility] Creatinine, Urine, Random 101 mg/dL 02/09/2019 11:55 AM EDT [facility] Comment: The laboratory does not have established reference ranges for this test. Interpretation of results is at the discretion of the ordering physician. Urine specimen (specimen) Urine specimen obtained by clean catch procedure / Unknown Non-blood Collection / Unknown 02/09/2019 10:15 AM EDT 02/09/2019 10:15 AM EDT us Keke Katz APRN LAB URINE ORDERABLES Final Res ult [facility] [address] [place] [address], [place] [phone] * POCT hemoglobin, A1c (02/09/2019 8:10 AM EDT) POCT Hemoglobin A1C 9.2 4.4 - 6.4 % Blood specimen (specimen) 02/09/2019 8:10 AM EDT us Keke Katz DIRECTOR SURGICAL POCT ORDERABLES NO CHARGE Machelle l Result * HIV combo antigen/antibody (10/06/2018 3:59 PM EST) HIV Combo AB/AG Negative Negative 10/06/2018 6:02 PM EST [facility] Blood specimen (specimen) Venous blood specimen / Unknown Venipuncture / Unknown 10/06/2018 3:59 PM EST 10/06/2018 3:59 PM EST Narrative [facility] - 10/06/2018 6:02 PM EST This test is a 4th generation HIV Antigen-Antibody Combination assay, using a chemiluminescent microparticle immunoassay, for the simultaneous qualitative detection of human immuno- deficiency virus (HIV) p24 antigen and antibodies to HIV type 1 (HIV-1) and/or HIV type 2 (HIV-2) in human serum or plasma. The [employer] HIV Ag/Ab Combo assay is intended to [...] BLOOD ORDERABLES NO ST AT Final Result [facility] [address] [place] [address], [place] [phone] from Last 3 Months or Most Recently Relevant to Health Maintenance Insurance MEDICAID [place] D Care Teams Plant Supervisor Relationship Specialty Start Date End Date Viet Sánchez PA [address] [place] [address] PCP - General Family Medicine 07/22/18
--- OUTSIDE RECORDS SUMMARY | 2025-03-22 15:26 | XMS_ITS | Encounter Summary ---
Author Organization [facility] Address [address] [address] Phone Care Team Providers Care Spinning Frame Changer Name Role Phone Maranda Serna MD Primary Care Provider [phone] Encounter Details Date Type Department Care Team (Late st Contact Info) Description 01/25/2025 Office Communication [facility] [address] [place] [id number] Marci Gleason ARNP [address] [address] Social History Tobacco Use Types Packs/Day Years Used Date Smoking Tobacco: Never Smokeless Tobacco: Never Alcohol Use Standard Drinks/Week Comments Yes 0 (1 standard drink = 0.6 oz pure alcohol) Intermittently Hot Amanda. Tea with Henderson only if sick Comments Unknown Sex and [...] Office Visit [facility] [address] [address] Marci Gleason ARNP [address] [address] documented as of this encounter Visit Diagnoses Not on filedocumented in this encounter Care Teams Spinning Frame Changer Relationship Specialty Start Date End Date Maranda Serna MD [address] [place] [address] PCP - General Family Medicine 08/24/21 documented as of this encounter
--- OUTSIDE RECORDS SUMMARY | 2025-03-22 15:26 | XMS_ITS | Encounter Summary ---
Author Organization [facility] Address [address] [place] [address] Care Team Providers Care Machine Operator Slitter Technician Name Role Phone Viet Sánchez Unavailable [phone] Viet Sánchez Primary Care Provider Encounter Details Date Type Department Care Team (Late st Contact Info) Description 11/09/2019 Prep for Surgery OPHTHALMOLOGY [address] [place] [address] Holland Hunt MD [address] [facility] [address] [facility] [place] [phone] Social History Tobacco Use Types Packs/Day Years [...] on filedocumented in this encounter Care Teams Machine Operator Slitter Technician Relationship Specialty Start Date End Date Viet Sánchez PA [address] [place] [address] PCP - General 06/18/18 Viet Sánchez PA [address] [place] [id number] 06/18/18 documented as of this encounter
--- OUTSIDE RECORDS SUMMARY | 2025-03-22 15:26 | XMS_ITS | Clinical Summary ---
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 ascorbic acid (Vitamin C) 500 MG tablet Take by mouth. 2 times every day 08/21/20 21 Active atorvastatin (Lipitor) 20 MG tablet Take 1 tablet by mouth in the morning. 03/21/20 21 Active castor oil liquid Purchases OTC_ takes daily Active cholecalciferol (Vitamin D-3) 10 MCG (400 UNIT) tablet Purchases OTC - takes 2 tablets daily Active Cranberry 450 MG tablet Purchases OTC - takes BID Active estradiol (Estrace) 0.1 MG/GM vaginal cream Insert into the vagina. 2 times every week Active fluticasone (Flonase) 50 MCG/ACT nasal spray spray 1 spray by intranasal route every day in each nostril 11/01/20 21 Active ipratropium (Atrovent) 0.06 % nasal spray Administer 1 spray into affected nostril(s) every 8 (eight) hours. 09/24/20 21 Active omega-3 (Fish Oil) 1000 MG capsule Purchases OTC - take 1 every day Active albuterol 108 (90 Base) MCG/ACT inhalerIndicati ons:Wheezing Inhale 1-2 puffs Every 4-6 hours as needed for wheezing. 18 g 01/17/20 23 Active famotidine (Pepcid) 20 MG tablet Take 1 tablet (20 mg) by mouth at bedtime. 15 tablet 04/25/20 23 Active cetirizine (ZyrTEC) 5 MG tablet Take 1 tablet (5 mg) by mouth in the morning. 30 tablet 11 06/03/20 23 Active Blood Glucose Monitoring Suppl (FreeStyle Lite) w/Device kit 1 Dose 3 times daily. 1 kit 09/23/20 23 Active omeprazole OTC (PriLOSEC OTC) 20 MG EC tablet Take 20 mg by mouth before breakfast. Do not crush, chew, or split. Active Acetaminophen Extra Strength 500 MG tablet TAKE 1 TO 2 TABLETS BY MOUTH EVERY 8 HOURS NEEDED FOR PAIN OR FEVER 90 tablet 3 01/28/20 24 Active glucose blood (FREESTYLE LITE) test strip TEST BLOOD SUGAR 3 TIMES A DAY 100 each 11 05/03/20 24 Active predniSONE (Deltasone) 10 MG tablet Take 1 or 2 tablets by mouth once daily for pain 10 tablet 07/19/20 24 Active gabapentin (Neurontin) 600 MG tablet Take 1/4 (150 mg) or 1/2 (300 mg) tablets by mouth once at bedtime 15 tablet 11 07/19/20 24 Active oxybutynin XL (Ditropan-XL) 5 MG 24 hr tablet Take 5 mg by mouth Once per day. 10/27/20 23 Active insulin lispro (HumaLOG) 100 UNIT/ML injection INJECT 14 UNITS SUBCUTANEOUSLY THREE TIMES DAILY BEFORE MEALS 15 mL 2 11/16/19 25 Active insulin degludec (Tresiba FlexTouch) 100 UNIT/ML injection INJECT 62 UNITS SUBCUTANEOUSLY EVERY DAY 30 mL 2 12/13/19 25 Active Easy Touch Pen [place] 31G X 8 MM miscIndications :Type 2 diabetes mellitus with hyperglycemia, with long-term current use of insulin ([facility]) USE DIRECTED THREE TIMES DAILY 200 each 11 12/15/19 25 Active aspirin 81 MG EC tablet Take 1 tablet (81 mg) by mouth Once per day. 90 tablet 3 01/18/20 25 026 Active carvedilol (Coreg) 6.25 MG tablet Take 6.25 mg by mouth with breakfast and with evening meal. 11/30/19 25 Active Plavix 75 MG tablet Take 75 mg by mouth. 12/01/19 Active dapagliflozin (Farxiga) 5 MG Take 5 mg by mouth Once per day. 11/30/19 Active isosorbide mononitrate ER (Imdur) 30 MG 24 hr tablet Take 30 mg by mouth. 12/01/19 Active niacinamide 500 MG tablet TAKE 1 TABLET BY MOUTH TWICE DAILY WITH BREAKFAST AND WITH EVENING MEAL Active senna (Senokot) 8.6 MG tablet Take 1 tablet by mouth if needed in the morning and at bedtime for constipation. Active TRUEplus Lancets 33G miscIndications :Type 2 diabetes mellitus with hyperglycemia, with long-term current use of insulin ([facility]) TEST BLOOD SUGAR THREE TIMES DAILY 100 each 5 01/29/20 Active ferrous sulfate 325 (65 Fe) MG EC tablet Take 1 tablet by mouth every other day. 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 Only tablets available are 600 and 800 mg tablet - will have her take 1/4 of 600 mg tablet and take bid; or will check with pharmacist if she can open the capsule and take inside content Assessment & Plan (07/23/2024 5:36 AM EDT): - seeing workforce analyst - continue judicious use of gabapentin 100 mg tid - she wants to switch to tablet. Only tablets available are 600 and 800 mg tablet - will have her take 1/4 of 600 mg tablet and take bid; or will check with pharmacist if she can open the capsule and take inside content Assessment & Plan (01/04/2024 3:36 PM EST): - seeing workforce analyst - continue judicious use of gabapentin Assessment & Plan (10/03/2023 9:48 AM EST): - seeing workforce analyst - waiting for diabetic orthotics Adjustment disorder [...] hyperkalemia and cough -Currently prescribed Dapagliflozin from clinical trial educator -Follow up in 3-6 mo, sooner if [...] hyperkalemia and cough -Currently prescribed Dapagliflozin from clinical trial educator -Follow up in 3-6 mo, sooner if [...] osteoarthritis; plantar fasciitis - referred to a workforce analyst; waiting for an appt - check the [...] want to try any GLP-1 agonist. -Patient Franchise Business Consultant prescribed Farxiga. Patient is taking this [...] want to try any GLP-1 agonist. -Patient Franchise Business Consultant prescribed Farxiga. Patient is no longer [...] (01/04/2024 3:42 PM EST): - followed by [facility] - no anatomical pancreatic abnormality on MRI in Dec 2022 - continue vegan / plant-based pancreatic enzyme Assessment & Plan (10/03/2023 9:49 AM EST): - followed by [facility] - no anatomical pancreatic abnormality on MRI in Dec 2022 - continue vegan / plant-based pancreatic enzyme Assessment & Plan (06/07/2023 3:30 PM EDT): - followed by [facility] - no anatomical pancreatic abnormality on MRI in Dec 2022 - continue vegan / plant-based pancreatic enzyme Assessment & Plan (02/24/2023 5:30 AM EDT): - followed by [facility] - no anatomical pancreatic abnormality on MRI in Dec 2022 - continue vegan / plant-based pancreatic enzyme Assessment & Plan (12/18/2022 6:12 PM EST): - followed by [facility] - continue vegan pancreatic enzyme Allergic rhinitis [...] Plan (01/21/2025 12:33 PM EDT): -Followed by [facility], last seen 01/03/25 -EGD and Colonoscopy on 12/24/21; showed Tubular Adenoma, she was recommended to repeat in 3 years. - pt has been using castor oil - continue trying fiber-rich diet and increasing physical activity as tolerated. - continue Senakot as prescribed Assessment & Plan (07/20/2024 1:50 PM EDT): -Followed by [facility], last seen 08/06/22 -EGD and Colonoscopy on 12/24/21; showed Tubular Adenoma, she was recommended to repeat in 3 years. - pt has been using castor oil - continue trying fiber-rich diet and increasing physical activity as tolerated. - continue Senakot as prescribed Assessment & Plan (01/04/2024 3:38 PM EST): -Followed by [facility], last seen 08/06/22 -EGD and Colonoscopy on 12/24/21; showed Tubular Adenoma, she was recommended to repeat in 3 years. - pt has been using castor oil - continue trying fiber-rich diet and increasing physical activity as tolerated. - continue Senakot as prescribed Assessment & Plan (06/07/2023 3:33 PM EDT): -Followed by [facility], last seen 08/06/22 -EGD and Colonoscopy on 12/24/21; showed Tubular Adenoma, she was recommended to repeat in 3 years. - pt has been using castor oil - continue trying fiber-rich diet and increasing physical activity as tolerated. - continue Senakot as prescribed Assessment & Plan (12/18/2022 6:26 PM EST): -Followed by [facility], last seen 08/06/22 -EGD and Colonoscopy on 12/24/21; showed Tubular Adenoma, she was recommended to repeat in 3 years. - pt has been using castor oil - continue trying fiber-rich diet and increasing physical activity as tolerated. - continue Senakot as prescribed Chronic kidney disease, stage III (moderate) 01/2022 Assessment & Plan (01/21/2025 12:32 PM EDT): - Franchise Business Consultant, Dr. Marci Hylton. Last seen on 01/25/25 - Metformin is discontinued, Dr. Tsai started her on Dapagliflozin (Farxiga) - Previously on Lisinopril, but was disccontinued due to cough / K - Avoid nephrotoxic drugs, including NSAID (no more Aleve) - Renal dose meds Assessment & Plan (07/23/2024 5:41 AM EDT): - Franchise Business Consultant, Dr. Marci Hylton. - Metformin is discontinued, Dr. Tsai started bryn ib Dapagliflozin (Farxiga) - Previously on Lisinopril, but was disccontinued due to cough / K - Avoid nephrotoxic drugs, including NSAID (no more Aleve) - Renal dose meds Assessment & Plan (01/04/2024 3:45 PM EST): - Franchise Business Consultant, Dr. 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 Tsai is prescribing Dapagliflozin (Farxiga) - Previously on Lisinopril, but was disccontinued due to cough / K - Avoid nephrotoxic drugs - Renal dose meds Assessment & Plan (10/03/2023 9:41 AM EST): - Franchise Business Consultant, Dr. Tsai - Metformin is discontinued, [...] & Plan (06/07/2023 3:34 PM EDT): - Franchise Business Consultant, Dr. 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 Eulalio Kuhnxiaakash for DM management - Previously on Lisinopril, but was disccontinued due to cough / K - Avoid nephrotoxic drugs - Renal dose meds - Pt was advised that atorvastatin is not nephrotoxic and it will lower her ASCVD risk. Pt continues to decline statin therapy. - Advised to call the office for an appt Assessment & Plan (02/24/2023 5:37 AM EDT): - Franchise Business Consultant, Dr. Tsai - Lab: 12/24/22 BUN 28, [...] & Plan (12/18/2022 6:31 PM EST): - Franchise Business ConsultantDr. 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 Eulalio [...] PM EST): -s/p EGD 12/24/21 -followed by [facility] -continue omeprazole 40mg daily -previously tried pantoprazole and lansoprazole; pt prefers omeprazole. -previously prescribed famotidine. Max dose for her renal function is 20 mg daily. Pt does not take it regularly. Assessment & Plan (10/03/2023 9:50 AM EST): -s/p EGD 12/24/21 -followed by [facility] -continue omeprazole 40mg daily -previously tried pantoprazole and lansoprazole; pt prefers omeprazole. -previously prescribed famotidine. Max dose for her renal function is 20 mg daily. Pt does not take it regularly. Assessment & Plan (06/07/2023 3:33 PM EDT): -s/p EGD 12/24/21 -followed by [facility] -continue omeprazole 40mg daily -previously tried pantoprazole and lansoprazole; pt prefers omeprazole. -previously prescribed famotidine. Max dose for her renal function is 20 mg daily. Pt does not take it regularly. Assessment & Plan (12/18/2022 6:28 PM EST): -s/p EGD 12/24/21 -followed by [facility] -continue prantoprazol 40mg daily -previously prescribed famotidine. Max dose for her renal function is 20 mg daily. Irritable bowel syndrome 10/12/2022 Assessment & Plan (07/20/2024 1:50 PM EDT): - followed by [facility] - continue current treatment plan per GI - low FODMAP diet - pt is prescribed simethicone, Sennakot, citrucel, but does not like taking it regularly Assessment & Plan (01/04/2024 3:42 PM EST): - followed by [facility] - continue current treatment plan per GI - low FODMAP diet - pt is prescribed simethicone, Sennakot, citrucel, but does not like taking it regularly Assessment & Plan (10/03/2023 9:49 AM EST): - followed by [facility] - continue current treatment plan per GI - low FODMAP diet - pt is prescribed simethicone, Sennakot, citrucel, but does not like taking it regularly Assessment & Plan (06/07/2023 3:32 PM EDT): - followed by [facility] - continue current treatment plan per GI - low FODMAP diet - pt is prescribed simethicone, Sennakot, citrucel, but does not like taking it regularly Assessment & Plan (12/18/2022 6:27 PM EST): - followed by [facility] - continue current treatment plan per [...] insulin dosing - Continue Humalog 10 units qA (she states prefer to take right after meal instead prior) - Prescribed dapagliflozin (Farxiga) from PCP and clinical trial educator, questionable adherence - Discussed about CGM, which she does not want to use it at this time Treatment Hx -Pt has taken GLP-1 agonists and had significant side effects, mainly GI. Pt states she does not want to try any GLP-1 agonist. -Patient Franchise Business Consultant prescribed Farxiga. Patient is taking this [...] want to try any GLP-1 agonist. -Patient Franchise Business Consultant prescribed Farxiga. Patient is taking this [...] want to try any GLP-1 agonist. -Patient Franchise Business Consultant prescribed Farxiga. Patient is no longer [...] want to try any GLP-1 agonist. -Patient Franchise Business Consultant prescribed Farxiga. Patient is no longer [...] want to try any GLP-1 agonist. -Patient Franchise Business Consultant prescribed Farxiga. Patient is no longer [...] want to try any GLP-1 agonist. -Patient Franchise Business Consultant prescribed Farxiga. Patient is no longer [...] Description 02/15/2025 2:00 PM EDT Office Visit [facility] [address] [phone] Joleen Avery MD Viral upper respiratory infection 02/15/2025 Telephone [facility] [address] [place] [address] Joleen Avery MD 02/09/2025 Telephone [facility] [address] [place] [address] Maranda Serna MD 02/09/2025 Telephone [facility] [place] [address] Maranda Serna MD 02/07/2025 Orders Only [facility] [place] [address] Maranda Serna MD Pulmonary nodule (Primary Dx) 01/28/2025 Orders Only [facility] [place] [address] Maranda Serna MD Type 2 diabetes mellitus with hyperglycemia, with long-term current use of insulin ([facility]/HCC) 01/21/2025 Population [facility] Risk Score [facility] () [address] [phone] Provider, Population Health Generic 01/17/2025 11:00 AM EDT Office Visit [facility] [place] [address] Maranda Serna MD Coronary artery disease of [place] artery of [place] heart with stable angina pectoris (CMS/HCC) (Primary Dx); Stage 3b chronic kidney disease (CMS/HCC); Chronic idiopathic constipation; Type 2 diabetes mellitus with hyperglycemia, with long-term current use of insulin (CMS/HCC); Type 2 diabetes mellitus with stage 3b chronic kidney disease, with long-term current use of insulin (CMS/HCC); Dyslipidemia; Anemia due to stage 3b chronic kidney disease (CMS/HCC) (CMS/HCC) 01/17/2025 Travel 01/13/2025 Orders Only [facility] [place] [address] Maranda Serna MD Pulmonary nodule (Primary Dx) 01/13/2025 Telephone [facility] [place] [address] Maranda Serna MD chart prep 01/12/2025 Refill [facility] [place] [address] Yesica Naylor MD 12/23/2024 Orders Only GENERIC EXTERNAL DATA DEPARTMENT Provider, Generic External Data from Last 3 Months Immunizations Name Administration [...] 01/17/2025 11:22 AM EDT Plan of Treatment Upcoming Encounters Date Type Department Care Team (Late st Contact Info) Description 04/12/2025 3:30 PM EDT Office Visit [facility] [address] [place] [address] Maranda Serna MD [address] [place] [address] Health Maintenance Due Date Last Done Comments [...] current use of insulin ([facility]) POCT GLUCOSE Routine 01/17/2025 11:29 AM EDT Type 2 diabetes mellitus with hyperglycemia, with long-term current use of insulin ([facility]) CULTURE, URINE, ROUTINE Routine 12/23/2024 1:00 PM EST BI MAMMOGRAM SCREENING TOMOSYNTHESIS BILATERAL Routine 02/10/2024 2:40 PM EDT LIPID PANEL WITH REFLEX TO DIRECT LDL Routine 12/30/2023 4:50 PM EST Type 2 diabetes mellitus with hyperglycemia, with long-term current use of insulin ([facility]) Dyslipidemia HM COLONOSCOPY Routine 07/07/2022 from Last 3 Months or Most Recently Relevant to Health Maintenance Results * CT Chest w/o Contrast (02/25/2025 11:15 AM EDT) Anatomical Region Laterality Modality Body, Chest Computed Tomogra phy 02/25/2025 11:1 5 AM EDT Narrative 02/25/2025 11:59 AM EDT ? [facility] ?[address] ?[place] [address] ? CT Scan Report ? Signed ? Patient: Reji,Ese ?MR#: [id number] ?? 8 ? : 1960 ?Acct:[id number] ? Age/Sex: 64 / F ?ADM Date: 02/25/25 ? Loc: HO.CT ? Attending Dr: Maranda Serna MD ? Ordering Physician: Maranda Serna MD ?? Date of Service: 02/25/25 ?? Procedure(s): CT chest wo IV con ?? Accession Number(s): [id number] ? cc: Maranda Serna MD ? Report Number: ?? [id number]: Total DLP = ??183.00 mGy-cm ?? EXAMINATION: [...] DLP: 183 mGy centimeter. ? FINDINGS: ? SEAMER OPERATOR: Large body habitus. ?? Vascular clips right [...] DD/ 1115 ? TD/TT: 02/25/25 1124 ? Loom Changeover Operator: ? Procedure Note Ezekiel, Image - 02/25/[address] [address] [place] Scan Report Signed Patient: Kristen Mendoza#: [id number] 8 : 1960Acct:[id number] Age/Sex: 64 / FADM Date: 02/25/25 Loc: HO.CT Attending Dr: Maranda Serna MD Ordering Physician: Maranda Serna MD Date of Service: 02/25/25 Procedure(s): CT chest wo IV con Accession Number(s): [id number] cc: Maranda Serna MD Report Number: [id number]: Total DLP = 183.00 mGy-cm EXAMINATION: CT [...] reconstruction technique DLP: 183 mGy centimeter. FINDINGS: SEAMER OPERATOR: Large body habitus. Vascular clips right upper [...] 02/25/25 1155 DD/ 1115 TD/TT: 02/25/25 1124 Loom Changeover Operator: Maranda Serna MD IMG CT PROCEDURES Edited [...] PM EDT Narrative 02/15/2025 2:22 PM EDT ?[facility] ?[address] ?[place] [address] ?XRay Report ? Signed ? Patient: Ese Mendoza ?MR#: [id number] ?? 8 ? : 1960 ?Acct:[id number] ? Age/Sex: 64 / F ?ADM Date: 02/15/25 ? Loc: HO.HHCX ? Attending Dr: Joleen Avery MD ? Ordering Physician: Joleen Avery MD ?? Date of Service: 02/15/25 ?? Procedure(s): XR chest 2V ?? Accession Number(s): [id number] ? cc: Joleen Avery MD ? EXAMINATION: [...] ??Franklin Mark MD ??02/15/2025 02:20 PM EDT ?? RP ? Dictated By: ?Franklin Mark MD ? Signed By: ?<Electronically signed by Franklin Mark MD in OV> ?02/15/25 1420 ? DD/ 1403 ? TD/TT: 02/15/25 1405 ? Loom Changeover Operator: ? Procedure Note Constantin Falcon - 02/15/[address] [address] XRay Report Signed Patient: Ese MendozaMR#: [id number] 8 : 1960Acct:[id number] Age/Sex: 64 / FADM Date: 02/15/25 Loc: HO.HHCX Attending Dr: Joleen Avery MD Ordering Physician: Joleen Avery MD Date of Service: 02/15/25 Procedure(s): XR chest 2V Accession Number(s): [id number] cc: Joleen Avery MD EXAMINATION: XR CHEST [...] 02/15/25 1420 DD/ 1403 TD/TT: 02/15/25 1405 Loom Changeover Operator: Joleen Avery MD IMG XR PROCEDURES Final Re sult * Influenza B (ID NOW Rapid Molecular) (02/15/2025 1:46 PM EDT) [facility] Influenza B Negative Negative, Indeterminate [facility] Swab 02/15/2025 1:46 PM EDT Joleen Avery MD POINT OF CARE TEST ENTER/E DIT ORDERABLES Final Result Performing Organization Address City/[facility]/ZIP Co de Phone Number [facility] [address] [place] [phone] * Influenza A (ID NOW Rapid Molecular) (02/15/2025 1:46 PM EDT) [facility] Influenza A Negative Negative, Indeterminate [facility] Swab 02/15/2025 1:46 PM EDT Joleen Avery MD POINT OF CARE TEST ENTER/E DIT ORDERABLES Final Result Performing Organization Address City/[facility]/ZIP Co de Phone Number [facility] [address] [place] [phone] * POCT Rapid COVID Ag (02/15/2025 1:46 PM EDT) [facility] Rapid COVID Ag Negative Swab 02/15/2025 1:46 PM EDT Joleen Avery MD POINT OF CARE TEST ENTER/E DIT ORDERABLES Final Result * (ABNORMAL) POCT glycosylated hemoglobin (Hgb A1c) (01/17/2025 11:29 AM EDT) [facility] Hemoglobin A1C 9.0(A) 4.0 - 6.0 % QC Media Lot # [id number] Lot# Expiration Date [id number] Blood Capillary blood specimen / Unknown 01/17/2025 11:29 AM EDT Maranda Serna MD POINT OF CARE TEST ENTER/EDIT OR DERABLES Final Result * (ABNORMAL) POCT glucose manually resulted (01/17/2025 11:29 AM EDT) Glucose Blood, POC 235(A) 60 - 200 mg/dL QC Media Lot # [id number] Lot# Expiration Date [id number] Blood Capillary blood specimen / Unknown 01/17/2025 11:29 AM EDT Maranda Serna MD POINT OF CARE TEST ENTER/EDIT OR DERABLES Final Result * Culture, Urine, Routine (12/23/2024 1:00 PM EST) Urine Urine specimen obtained by clean catch procedure / Unknown 12/23/2024 1:00 PM EST 12/23/2024 4:59 PM EST Comment:[facility] - 12/26/2024 7:26 AM EST Escherichia coli Quant > 100,000 cfu/mL Escherichia coli: Ampicillin 8(S) Escherichia coli: Cefazolin (Urine) 2(S) Escherichia coli: Cefepime <=0.12(S) Escherichia coli: Ceftriaxone <=0.25(S) Escherichia coli: Ciprofloxacin <=0.06(S) Escherichia coli: Gentamicin <=1(S) Escherichia coli: Nitrofurantoin <=16(S) Escherichia coli: Trimethoprim/Sulfamethoxazole <=20(S) Specimen Source: Urine clean catch Generic External Data Provider LAB MICROBIOLOGY - GENERAL ORDERABLES Final Result [facility] [address] [place] [phone] * BI Mammogram Screening Tomosynthesis Bilateral (02/10/2024 2:40 PM EDT) Anatomical Region Laterality Modality Breast Bilateral Mammography 02/10/2024 2:40 PM EDT Narrative 02/22/2024 3:43 PM EDT ? [facility] ? [address] ?[place] [address] ? Mammography Report ? Signed ? Patient: Reji,Ese ?MR#: [id number] ?? 8 ? : 1960 ?Acct:[id number] ? Age/Sex: 63 / F ?ADM Date: 02/10/24 ? Loc: HO.MAMMO ? Attending Dr: Maranda Serna MD ? Ordering Physician: Maranda Serna MD ?Results: 1Negative ? Date of Service: 02/10/24 ?Follow Up: 1 Year From Orig ?? inal Mammogram ? Procedure(s): MM tomosynthesis screening BI ?? Accession Number(s): [id number] ? cc: Maranda Serna MD ? EXAMINATION: [...] include several, bilateral, ?? benign macrocalcifications financial sales representative of fat necrosis. ? MM/MM [...] 1539 ? DD/ 1440 ? TD/TT: ? Loom Changeover Operator: ? Procedure Note Ezekiel, Image - 02/22/2024 [place] [facility] [address] [place] [address] Mammography Report Signed Patient: Kristen Mendoza#: [id number] 8 : 1960Acct:[id number] Age/Sex: 63 / FADM Date: 02/10/24 Loc: [place] Attending Dr: Maranda Serna MD Ordering Physician: Maranda Serna MDResults: 1Negative Date of Service: 02/10/24Follow Up: 1 Year From Orig inal Mammogram Procedure(s): MM tomosynthesis screening BI Accession Number(s): [id number] cc: Maranda Serna MD EXAMINATION: MM SCREENING [...] These include several, bilateral, benign macrocalcifications financial sales representative of fat necrosis. MM/MM tomosynthesis [...] in OV> 02/22/24 1539 DD/ 1440 TD/TT: Loom Changeover Operator: us Maranda Serna MD IM BI PROCEDURES Edited Result - Final * (ABNORMAL) Lipid Panel with Reflex to Direct LDL (12/30/2023 4:50 PM EST) Triglycerides 177(H) <150 mg/dL [facility] Comment:Desirable Triglyceri de: less than 150 mg/dLBorderline High Triglyceride 150-199 mg/dLHigh Triglyceride: 200-499 mg/dLVery High Triglyceride: greater than or equal to 5OO mg/dL Cholesterol 235(H) <200 mg/dL [facility] Comment:Desirable Cholestero l: less than 200 mg/dLBorderline High Cholesterol: 200-239 mg/dLHigh Cholesterol: greater than 239 mg/dL LDL Cholesterol Calculated 151(H) <100 mg/dL [facility] Comment:Desirable LDL: less than 100 mg/dLNear Optimal/Above Optimal LDL: 110- 129 mg/dLBorderline High LDL: 130-159 mg/dLHigh LDL: 160-189 mg/dLVery High LDL: greater than or equal to 190 mg/dL HDL Cholesterol 49 >40 mg/dL [facility] Comment:Desirable HDL: great er than 40 mg/dL Note: This HDL assay may give artificially low results in patients with liver disease. Blood 12/30/2023 4:5 0 PM EST 12/30/2023 5:26 PM EST Maranda Serna MD LAB BLOOD ORDERABLES Final Resul t [facility] [address] [place], [place] [phone] * (ABNORMAL) Colonoscopy (07/07/2022) Colonoscopy Abnormal(A ) Normal [facility] External Provider HEALTH MAINTENANCE Final Result from Last 3 Months or Most Recently Relevant to Health Maintenance Insurance [facility] STANDARD Care Teams Railroad Car Painter Relationship Specialty Start Date End Date Maranda Serna MD [address] [place] [address] PCP - General Family Medicine 08/01/21
--- OUTSIDE RECORDS SUMMARY | 2025-03-22 15:26 | XMS_ITS | Encounter Summary ---
Author Organization [facility] Address [address] [place] [address] Care Team Providers Care Clip Riveter Name Role Phone Viet Sánchez Unavailable [phone] Viet Sánchez Primary Care Provider Encounter Details Date Type Department Care Team (Late st Contact Info) Description 05/22/2020 Scanned Document [facility] [address] [phone] Deja Rico, [place] [address] Social History Tobacco Use Types Packs/Day Years [...] 12:56 AM EDT) Deja Rico DO PATHOLOGY/CYTOLOGY ORDERABLES Final Result documented in this encounter Visit Diagnoses Not on filedocumented in this encounter Care Teams Clip Riveter Relationship Specialty Start Date End Date Viet Sánchez PA [address] [place] [address] PCP - General 06/18/18 Viet Sánchez PA [address] [place] [address] 06/18/18 documented as of this encounter
--- OUTSIDE RECORDS SUMMARY | 2025-03-22 15:26 | XMS_ITS | Encounter Summary ---
Author Organization [employer] Address [address] [facility] [address]t [place] [address] Care Team Providers Care Civil Defense Director Name Role Phone Maranda Serna MD Primary Care Provider Reason for Visit * Reason Comments Med Refill Encounter Details Date Type Department Care Team (Late st Contact Info) Description 11/19/2023 Refill [facility] [address] [place], [place] [phone] Yesica Naylor MD [address] [place] [address] Social History Tobacco Use Types Packs/Day Years [...] 3:30 PM EDT Office Visit [facility] [address] [place] [address] Maranda Serna MD [address] [place] [address] documented as of this encounter Visit Diagnoses Not on filedocumented in this encounter Additional Health Concerns Assessment Noted Time PHQ-9 Depression Total Score: 6 10/23/20 22 10:04 AM EST documented as of this encounter Care Teams Civil Defense Director Relationship Specialty Start Date End Date Maranda Serna MD [address] [place] [id number] PCP - General Family Medicine 08/01/21 documented as of this encounter
--- OUTSIDE RECORDS SUMMARY | 2025-03-22 15:26 | XMS_ITS | Encounter Summary ---
Author Organization [employer] Address [address] [facility] [address] 7[address] [place] [address] Care Team Providers Care Care Team Coordinator Scheduler Name Role Phone Maranda Serna MD Primary Care Provider [phone] Encounter Details Date Type Department Care Team ([facility] st Contact Info) Description 01/13/2025 Orders Only [facility] [address] [place] [address] Maranda Serna MD [address] [place], [place] [phone] Pulmonary nodule (Primary Dx) Social History Tobacco [...] Description 04/12/2025 3:30 PM EDT Office Visit [facility] [address] [place] [phone] Maranda Serna MD [address] [place] [phone] documented as of this encounter Visit Diagnoses Diagnosis Pulmonary nodule- Primary Other diseases of lung, not elsewhere classified documented in this encounter Additional Health Concerns Assessment Noted Time PHQ-9 Depression Total Score: 6 10/23/20 22 10:04 AM EST documented as of this encounter Care Teams Care Team Coordinator Scheduler Relationship Specialty Start Date End Date Maranda Serna MD [address] [place] [address] PCP - General Family Medicine 08/01/21 documented as of this encounter
--- OUTSIDE RECORDS SUMMARY | 2025-03-22 15:26 | XMS_ITS | Encounter Summary ---
Author Organization [employer] Address [address] [facility] 7t [place] [address] Care Team Providers Care Gold Nib Grinder Name Role Phone Maranda Serna MD Primary Care Provider [phone] Reason for Visit * Reason Onset Date Comments Hospital Follow-up 12/07/2024 Encounter Details Date Type Department Care Team ([facility] Contact Info) Description 12/07/2024 Telephone [facility] [address] [place], [place] [phone] Maranda Serna MD [address] [place], [place] [phone] Hospital Follow-up Social History Tobacco Use Types [...] follow up. Pt requested a call back. [phone] (Pt Contact) documented in this encounter Plan of Treatment Upcoming Encounters Date Type Department Care Team (Late st Contact Info) Description 04/12/2025 3:30 PM EDT Office Visit [facility] [address] [place] [address] Maranda Serna MD [address] [place] [address] documented as of this encounter Visit Diagnoses Not on filedocumented in this encounter Additional Health Concerns Assessment Noted Time PHQ-9 Depression Total Score: 6 10/23/20 22 10:04 AM EST documented as of this encounter Care Teams Gold Nib Grinder Relationship Specialty Start Date End Date Maranda Serna MD [address] [place] [address] PCP - General Family Medicine 08/01/21 documented as of this encounter
--- OUTSIDE RECORDS SUMMARY | 2025-03-22 15:26 | XMS_ITS | Clinical Summary ---
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 / [id number] / Procedures Procedure Name Priority Date/Time Associated Diagnosis Comments COLON/EGD (CC) Routine 05/19/2020 COMPREHENSIVE METABOLIC PANEL STAT 12/24/2018 10:09 PM EST from Last 3 Months or Most Recently Relevant to Health Maintenance Results * COLON/EGD (CC) (05/19/2020) Deja Rioc DO AMB ORDERABLE PERFORMABLE Fin al Result [...] LAB Anion Gap 13 7 - 17 [facility] Blood specimen (specimen) Blood specimen / Unknown 12/24/2018 10:09 PM EST 12/24/2018 10:32 PM EST [facility] BLOOD ORDERABLES Final Res ult HOSPITAL LAB from Last 3 Months or Most Recently Relevant to Health Maintenance Insurance Advance Directives * Full Code (Latest Code Status on File) Date Activated Date Inactivated Comments 02/07/2020 9:28 AM * Full Code Date Activated Date Inactivated Comments 11/11/2019 12:01 PM 01/27/2020 12:06 PM Care Teams Interior Block Wirer Relationship Specialty Start Date End Date Viet Sánchez PA [address] [place] [address] PCP - General 06/18/18 Viet Sánchez PA [address] [place] [address] 06/18/18
--- OUTSIDE RECORDS SUMMARY | 2025-03-22 15:27 | XMS_ITS | Clinical Summary ---
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 - Will obtain lab work. Also curious to see radiographic imaging of the hands, feets, SI and lumbar spine. Will obtain interval history from investor relations analyst Karlee Le. - RTC in 4 months - she is to continue with mtx 4 tabs qweekly and folic acid Ulcer of foot 07/19/2011 07/22/2022 Encounters Date Type Department Care Team Description 01/26/2025 Refill [facility] [address] [address] Shasha Delacruz [place] 01/25/2025 2:45 PM EDT Office Visit [facility] [address] [phone] Marci Gleason ARNP Stage 3b chronic kidney disease (HCC) (Primary Dx); Anemia in chronic kidney disease; Proteinuria, not otherwise specified 01/25/2025 Office Communication [facility] [address] [address] Marci Gleason ARNP from Last [...] pure alcohol) Intermittently Hot Amanda. Tea with [place] only if sick Comments Unknown Sex and [...] Office Visit [facility] [address] [address] Marci Gleason ARNP [address] [address] Health Maintenance Due Date Last [...] , 09/24/2021, Additional history exists Insurance Medicaid [place] Medicaid [place] Care Teams Lehr Operator Relationship Specialty Start Date End Date Maranda Serna MD [address] [place] [address] PCP - General Family Medicine 08/24/21
--- OUTSIDE RECORDS SUMMARY | 2025-03-22 15:27 | XMS_ITS | Encounter Summary ---
Author Organization [facility] Address [address] [facility] [address] [phone] Phone Care Team Providers Care Sales Person Name Role Phone Maranda Serna MD Primary Care Provider [phone] Encounter Details Date Type Department Care Team (Late st Contact Info) Description 05/17/2024 Office Communication [facility] [address] [address] Marci Gleason ARNP [address] [address] Social History Tobacco Use Types Packs/Day Years Used Date Smoking Tobacco: Never Smokeless Tobacco: Never Alcohol Use Standard Drinks/Week Comments Yes 0 (1 standard drink = 0.6 oz pure alcohol) Intermittently Hot Amanda. Tea with [place] only if sick Comments Unknown Sex and [...] Visit [facility] [address] [facility] [address] [address] Marci Gleason ARNP [address] [facility] [phone] documented as of this encounter Visit Diagnoses Not on filedocumented in this encounter Care Teams Sales Person Relationship Specialty Start Date End Date Maranda Serna MD [address] [place] [address] PCP - General Family Medicine 08/24/21 documented as of this encounter
--- OUTSIDE RECORDS SUMMARY | 2025-03-22 15:27 | XMS_ITS | Encounter Summary ---
Author Organization [employer] Address [address] [facility] 7t [place] [address] Care Team Providers Care Electrical System Specialist Name Role Phone Maranda Serna MD Primary Care Provider [phone] Reason for Visit * Reason Onset Date Comments Appointment Request 05/28/2024 Encounter Details Date Type Department Care Team ([facility] st Contact Info) Description 05/28/2024 Telephone [facility] [address] [place], [place] [phone] Maranda Serna MD [address] [place], [place] [phone] Appointment Request Social History Tobacco Use Types [...] Description 04/12/2025 3:30 PM EDT Office Visit [facility] [address] [place] [address] Maranda Serna MD [address] [place] [address] documented as of this encounter Visit Diagnoses Not on filedocumented in this encounter Additional Health Concerns Assessment Noted Time PHQ-9 Depression Total Score: 6 10/23/20 22 10:04 AM EST documented as of this encounter Care Teams Electrical System Specialist Relationship Specialty Start Date End Date Maranda Serna MD [address] [place] [address] PCP - General Family Medicine 08/01/21 documented as of this encounter
--- OUTSIDE RECORDS SUMMARY | 2025-03-22 15:27 | XMS_ITS | Encounter Summary ---
Author Organization [facility] Address [address] [place] [address] Care Team Providers Care Product Safety Head Name Role Phone Viet Sánchez Unavailable [phone] Viet Sánchez Primary Care Provider Encounter Details Date Type Department Care Team (Late st Contact Info) Description 02/18/2020 Scanned Document [facility] [address] [place] [phone] Provider, Sheryl, [address] [place] [address] Social History Tobacco Use Types Packs/Day Years [...] on filedocumented in this encounter Care Teams Product Safety Head Relationship Specialty Start Date End Date Viet Sánchez PA [address] [place] [address] PCP - General 06/18/18 Viet Sánchez PA [address] [place] [address] 06/18/18 documented as of this encounter
--- OUTSIDE RECORDS SUMMARY | 2025-03-22 15:27 | XMS_ITS | Clinical Summary ---
Author Organization [facility] Address [address] [place] [address] Care Team Providers Care Principal Bioinformatics Specialist Name Role Phone ChapispriscillaViet Primary Care Provider [phone] Allergies Active Allergy Reactions Criticality Noted Date [...] age to complete this topic Care Teams Principal Bioinformatics Specialist Relationship Specialty Start Date End Date Viet Sánchez [address] [place] [address] PCP - General Medical Services 06/19/18
--- OUTSIDE RECORDS SUMMARY | 2025-03-22 15:27 | XMS_ITS | Encounter Summary ---
Author Organization [facility] Address [address] [place] [address] Care Team Providers Care Billet Header Name Role Phone Viet Sánchez Unavailable [phone] Viet Sánchez Primary Care Provider [phone] Encounter Details Date Type Department Care Team (Late st Contact Info) Description 02/02/2020 Prep for Surgery OPHTHALMOLOGY [address] [place] [address] Holland Hunt MD [address] [facility] [address] [facility] [place] [phone] Social History Tobacco Use Types Packs/Day Years [...] on filedocumented in this encounter Care Teams Billet Header Relationship Specialty Start Date End Date Viet Sánchez PA [address] [place] [address] PCP - General 06/18/18 Viet Sánchez PA [address] [place] [address] 06/18/18 documented as of this encounter
--- OUTSIDE RECORDS SUMMARY | 2025-03-22 15:27 | XMS_ITS | Encounter Summary ---
Author Organization [facility] Address [address] [place] [address] Care Team Providers Care Ballet Company Member Name Role Phone Machelle Swann MD Primary Care Provider [phone] Reason for Visit * Reason Comments DM Foot Care Poorly controlled ty pe 2 diabetes mellitus with neuropathy ([facility] V24, [facility] V28)Arthritis of both midfeetClosed fracture of phalanx of right fifth toe with delayed healing, subsequent encounterCapsulitis of metatarsophalangeal (MTP) joint of left foot Encounter Details Date Type Department Care Team (Latest Contact Info) Description 03/17/2025 2:00 PM EDT Office Visit Orthopedic Surgery - [place] [address] [phone] Damien Centeno, DPM [address] [address] Controlled type 2 diabetes with neuropathy ([facility] V24, [facility] V28) (Primary Dx); Capsulitis of metatarsophalangeal (MTP) joint of right foot; Pain in toes of both feet; Dermatophytosis, nail Social History Tobacco Use Types Packs/Day Years Used Date Smoking Tobacco: Unknown Comments Unknown Sex and Gender Information Value Date Recorded Sex Assigned at Not on file Legal Sex Female 3:54 AM EST Gender Identity Not on file Sexual Orientation Not on file documented as of this encounter Last Filed [...] Mass Index 37.67 03/17/2025 2:15 PM EDT documented in this encounter Progress Notes * Damien Taryn Centeno, LEONELM - 03/17/2025 2:00 PM EDT Referring MD: haylee Last PCP visit: 02/17/2025 IDENTIFIER: Reji is a 64 y.o. year old female who presents for consultation. CC: Bilateral foot pain HPI: 64-year-old diabetic female returns office for bilateral foot pain. Patient notes that she continues to have some increasing pain to the outside of her right foot and along the plantar aspect of her foot near the right great toe. Patient is here for evaluation treatment Patient's FBS this AM was 143 Recent A1C is %. 8.2 % ROS: GENERAL: Pt denies nausea, fever, vomiting, chills, or shortness of breath. Pt in NAD. CARDIOLOGY: pt denies chest pain, palpitations LUNGS: pt denies shortness of breath MUSCULOSKELETAL: See HPI, otherwise no joint pain or swelling, back pain, or muscle pain. SKIN: see HPI, otherwise no lesions, rash or itching NEURO: No persistent headache, weakness or numbness The remainder of the review of systems is noncontributory PAST MEDICAL HISTORY: Patient Active Problem List Diagnosis Adjustment disorder with mixed anxiety and depressed mood Allergic rhinitis Anemia Arthritis Atrial fibrillation ([facility] V24, [facility] V28) Bilateral foot pain Chronic cough Chronic idiopathic constipation Chronic kidney disease, stage III (moderate) ([facility] V24, [facility] V28) Class 2 obesity Cobalamin deficiency Diabetic peripheral neuropathy associated with type 2 diabetes mellitus ([facility] V24, [facility] V28) Diabetic retinopathy ([facility] V24, [facility] V28) Dyslipidemia Elevated blood pressure reading in office without diagnosis of hypertension Gastroesophageal reflux disease Incontinence Irritable bowel syndrome Moderate persistent asthma with acute exacerbation Nephrolithiasis Nonrheumatic mitral valve regurgitation Nonrheumatic tricuspid valve regurgitation OAB (overactive bladder) Obstructive sleep apnea syndrome Osteopenia Pancreatic insufficiency Pulmonary arterial hypertension ([facility] V24, [facility] V28) Pulmonary hypertension (CMS/[facility] V24, [facility] V28) Right knee pain Seasonal allergies SOB (shortness of breath) Type 2 diabetes mellitus without complication ([facility] V24, [facility] V28) Ulcer of foot ([facility] V24, [facility] V28) Vitamin D deficiency SOCIAL HISTORY: Social History Tobacco Use Smoking status: Unknown Smokeless tobacco: Not on file Substance Use Topics Alcohol use: Not on file ACTIVE MEDICATIONS: Outpatient Medications Marked as Taking for the 03/17/25 encounter (Office Visit) with Damien Centeno DPM Medication Sig Dispense Refill acetaminophen (TYLENOL) 325 mg tablet Take 2 Tablets by mouth. albuterol HFA (PROAIR HFA ; PROVENTIL HFA ; VENTOLIN HFA) 90 mcg/actuation inhaler Inhale 1-2 Puffsinto the lungs. albuterol HFA (Proventil HFA) 90 mcg/actuation inhaler INHALE 1-2 PUFFS PO Q 4 H PRF WHEEZING ammonium lactate (LAC-HYDRIN) 12 % lotion APPLY TO SOLES OF FEET EVERY DAY. WEAR SOCKS TO BED AT NIGHT ascorbic acid (Vitamin C) 500 mg chewable tablet Take by mouth. atorvastatin (LIPITOR) 20 mg tablet Take 1 Tablet by mouth. blood sugar diagnostic (FreeStyle Lite Strips) test strip 1 Strip 3 times daily. blood-glucose meter misc 1 Dose by Does not apply route. castor oiL 100 % Purchases OTC_ takes daily cetirizine (ZyrTEC) 5 mg tablet Take 1 Tablet by mouth. cholecalciferol (VITAMIN D-3) 10 mcg (400 unit) tablet Purchases OTC - takes 2 tablets daily cranberry fruit 450 mg tablet Purchases OTC - takes BID cyanocobalamin (VITAMIN B-12) 100 mcg tablet See Instructions, Per pt., takes 5000 mcg daily?, 0 Refills, Maintenance, 11/17/20 13:14:00 EST, Partial fill upon patient request if the prescription is for a schedule II opioid drug. dapagliflozin propanediol (FARXIGA) 5 mg tablet Take by mouth. diclofenac (VOLTAREN) 1 % topical gel Apply 4 g topically 3 times daily. diphenhydrAMINE (BENADRYL) 25 mg capsule Take 1 Capsule by mouth. estradioL (ESTRACE) 0.01 % (0.1 mg/gram) vaginal cream Place vaginally. famotidine (PEPCID) 20 mg tablet Take 1 Tablet by mouth. fluticasone propionate (FLONASE) 50 mcg/actuation nasal spray USE 1 SPRAY IN EACH NOSTRIL ONCE D gabapentin (NEURONTIN) 100 mg capsule TAKE 1 CAPSULE BY MOUTH THREE TIMES DAILY IN THE MORNING, EVENING, AND BEDTIME insulin degludec (Tresiba FlexTouch U-100) 100 unit/mL (3 mL) injection pen Inject 90 Units into the skin. insulin lispro (HumaLOG KwikPen) 100 unit/mL injection pen INJECT 14 UNITS SUBCUTANEOUSLY THREE TIMES DAILY BEFORE MEALS ipratropium (ATROVENT) 42 mcg (0.06 %) nasal spray 1 [place] by Nasal route. lancets (TRUEplus Lancets) 33 gauge misc TEST BLOOD SUGAR THREE TIMES DAILY magnesium oxide (MAG-OX) 400 mg magnesium tablet Take 400 mg by mouth. omega-3 acid ethyl esters (LOVAZA) 1 gram capsule Purchases OTC - take 1 every day omeprazole OTC (PriLOSEC OTC) 20 mg EC tablet Take 1 Tablet by mouth. pantoprazole (PROTONIX) 40 mg EC tablet Take 1 Tablet by mouth. ALLERGIES: @ALL@ PHYSICAL EXAM: Height 1.575 m (62.01 ), weight 93.4 kg (206 lb). PODIATRIC EXAMINATION: GENERAL: Patient appears well nourished, with NAD. VASCULAR: Dorsalis pedis pulses are 1/4 bilaterally and Posterior tibial pulses are 1/4 bilaterally. Capillary filling time within normal limits the digits. No pallor on elevation or rubor on dependency. Positive hair growth. No varicosities. Denies rest pain or claudication pain. NEUROLOGICAL: Sharp/dull sensation diminished, protective sensation diminished on [place]. Multipleperipheral neuropathies bilateral lower extremity ORTHOPEDIC: Good muscle strength 5/5 of all flexors and extensors. Dorsi flexion of ankle ,10 degrees, plantar flexion WNL. No muscle atrophy. Patient has continued pain over the PIPJ of the right fifth digit with swelling and redness. Continued arthritic changes to the midfoot bilaterally. Notablepain along the lateral aspect of the right foot where the peroneal tendon inserts on the fifth metatarsal DERMATOLOGICAL:.Hyperkeratotic lesions to the IP joint of the right foot as well as the submetatarsal 1 position. Normal skin temperature, normal skin turgor. Nails are elongated dystrophic discolored x10 with subungual debris. BIOMECHANICS: STJ ROM wnl, MTJ ROM wnl, 1st MPJ ROM wnl. Imaging: Notable continued break at the base of the fifth proximal phalanx on the right foot. No new displacement of the fragment. Arthritic changes to the DIPJ of the fifth digit on the right foot. No other fractures or dislocations. IMPRESSION: 1. Controlled type 2 diabetes with neuropathy (CMS/HCC V24, CMS/HCC V28) 2. Capsulitis of metatarsophalangeal (MTP) joint of right foot 3. Pain in toes of both feet 4. Dermatophytosis, nail PLAN: Pt was seen and examined, history reviewed. Patient has had decreased amounts of pain in the right fifth digit and believes that the fracture is likely healed. Patient is ambulating without difficulty in close toed shoes Understands that with the decreased amount of range of motion she has a right great toe she is getting increased callus formation the planus of the foot. Hyperkeratosis cleansed. Patient structured to use a supportive shoe as well as topical analgesics to help with the pain at the area Patient continues to suffer with diabetic arthropathy and neuropathy. Patient encouraged to use supportive shoes and topical analgesics to limit the flareups in the future Nail debridement performed to nails 1-5 bilateral as nails were described to be causing pain and difficulty for walking while in shoegear at their previous length. They were debrided in thickness andlength, with no incident. Clinical evidence of mycosis is documented which required active treatment. Patient expressed immediate relief. Patient is to RTC in 9 weeks Damien Centeno DPM documented in this encounter Plan of Treatment Upcoming Encounters Date Type Department Care Team (Late st Contact Info) Description 05/19/2025 2:15 PM EDT Office Visit Orthopedic Surgery - [place] [address] [phone] Damien Centeno DPM [address] [address] documented as of this encounter Visit Diagnoses Diagnosis Controlled type 2 diabetes with neuropathy ([facility] V24, [facility] V28)- Primary Type II or unspecified type diabetes mellitus with neurological manifestations, not stated as uncontrolled Capsulitis of metatarsophalangeal (MTP) joint of right foot Pain in toes of both feet Dermatophytosis, nail Dermatophytosis of nail documented in this encounter Care Teams Ballet Company Member Relationship Specialty Start Date End Date Machelle Swann MD [address] [place] [address] [place] [address] PCP - General 10/15/12 documented as of this encounter
--- OUTSIDE RECORDS SUMMARY | 2025-03-22 15:27 | XMS_ITS | Encounter Summary ---
Author Organization [employer] Address [address] [facility] [address] [place] [address] Care Team Providers Care Fashion Intern Name Role Phone Maranda Serna MD Primary Care Provider [phone] Reason for Visit * Reason Onset Date Comments Durable Medical Equipment 05/26/2024 Encounter Details Date Type Department Care Team ([facility] st Contact Info) Description 05/26/[address] [facility] [address] [place], [place] [phone] Maranda Serna MD [address] [place], [place] [phone] Durable Medical Equipment Social History Tobacco Use [...] walker. Pt stated she was advised by route relief driver jigneshow up with orthopedic and they prescribed a walker for the pt. Pt wants script send over to [facility] [address] If any questions you can contact pt at [phone]. documented in this encounter Plan of Treatment Upcoming Encounters Date Type Department Care Team ([facility] st Contact Info) Description 04/12/2025 3:30 PM EDT Office Visit [facility] [address] [place] [phone] Maranda eSrna MD [address] [place] [address] documented as of this encounter Visit Diagnoses Not on filedocumented in this encounter Additional Health Concerns Assessment Noted Time PHQ-9 Depression Total Score: 6 10/23/20 22 10:04 AM EST documented as of this encounter Care Teams Fashion Intern Relationship Specialty Start Date End Date Maranda Serna MD [address] [place] [address] PCP - General Family Medicine 08/01/21 documented as of this encounter
--- OUTSIDE RECORDS SUMMARY | 2025-03-22 15:27 | XMS_ITS | Patient Health Record ---
Author Organization [employer] Address [address] [facility] [id number] [place] [address] Care Team Providers Care Oxygen System Tester Name Role Phone Larisa Saldana Primary Care Provider [phone] ALLERGIES Allergen (clinical drug ingredient) Drug/Non Drug [...] diabetes mellitus without complications (E11.9) Active confirmed 220746358 Problem Type 2 diabetes mellitus with diabetic polyneuropathy (E11.42) Active confirmed 64229669 Problem Other chronic pain (G89.29) Active confirmed 79310043 Problem Age-related nuclear cataract, bilateral (H25.13) Active confirmed Nuclear senile cataract (456954605) Problem Diabetes (E11.9) Active confirmed Type II diabetes mellitus without complication (866100190) Problem Dyslipidemia (E78.5) Active confirmed 132624532 Problem HTN (hypertension) (I10) Active confirmed Hypertension (08859191) Problem Arthritis (M19.90) Active confirmed 372 3001 Problem technician terminal and repeater current use of insulin (Z79.4) Active confirmed 897093282 Problem Controlled diabetes mellitus with diabetic neuropathy (E11.40) Active confirmed Diabetic peripheral neuropathy associated with type 2 diabetes mellitus (7663410536648) Problem Type 2 diabetes mellitus with mild nonproliferative diabetic retinopathy without macular edema, 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
== END 2025-03-22 15:30 | disposition home or self-care (01) ==
LOC: HO.HPSW 14:12
PROVIDERS: PCP Family Medicine; Referring Provider Family Medicine; Visit Provider Nurse Practitioner Family
DX: J45.909 Unspecified asthma, uncomplicated (principal); Z91.09 Other allergy status, other than to drugs and biological substances; R91.1 Solitary pulmonary nodule
CPT/HCPCS: 99204

== ENCOUNTER → 2025-03-22 14:12 | Outpatient (BNVA) | payer MEDICAID, SELFPAY | PROVIDERS: PCP Family Medicine; Referring Provider Family Medicine; Visit Provider Nurse Practitioner Family | DX: J45.909 Unspecified asthma, uncomplicated (principal); R91.1 Solitary pulmonary nodule; Z91.09 Other allergy status, other than to drugs and biological substances | CPT/HCPCS: 99212 ==

== ENCOUNTER 2025-03-22 15:44 | Outpatient (REF) | payer MEDICAID, SELFPAY ==
--- OUTSIDE RECORDS SUMMARY | 2025-03-22 16:27 | XMS_ITS | Encounter Summary ---
Author Organization [facility] Address [address] [place] [address] Care Team Providers Care Plate Preparer Name Role Phone Viet Sánchez Unavailable [phone] Viet Sánchez Primary Care Provider Encounter Details Date Type Department Care Team (Late st Contact Info) Description 08/06/2018 Scanned Document [facility] Urologic Surgery [place] [address] [facility] [address] [place] [address] Provider, MD Sheryl [address] [place] [address] Social History Tobacco Use Types Packs/Day Years [...] on filedocumented in this encounter Care Teams Plate Preparer Relationship Specialty Start Date End Date Viet Sánchez PA [address] [place] [address] PCP - General 06/18/18 Viet Sánchez PA [address] [place] [address] 06/18/18 documented as of this encounter
--- OUTSIDE RECORDS SUMMARY | 2025-03-22 16:27 | XMS_ITS | Clinical Summary ---
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 - Will obtain lab work. Also curious to see radiographic imaging of the hands, feets, SI and lumbar spine. Will obtain interval history from magnetic prospecting operator Karlee Le. - RTC in 4 [...] with long-term current use of insulin ([facility]) POCT HEMOGLOBIN, A1C Routine 02/09/2019 8:10 AM EDT Type 2 diabetes mellitus with diabetic polyneuropathy, with long-term current use of insulin ([facility]) HIV COMBO ANTIGEN/ANTIBODY Routine 10/06/2018 3:59 PM EST Polyarthralgia from Last 3 Months or Most Recently Relevant to Health Maintenance Results * Microalbumin/creatinine ratio (02/09/2019 10:15 AM EDT) Microalbumin/Creat Ratio 20 2 - 20 mg/g Creat 02/09/2019 11:55 AM EDT [facility] Creatinine, Urine, Random 101 mg/dL 02/09/2019 11:55 AM EDT [facility] Comment: The laboratory does not have established reference ranges for this test. Interpretation of results is at the discretion of the ordering physician. Urine specimen (specimen) Urine specimen obtained by clean catch procedure / Unknown Non-blood Collection / Unknown 02/09/2019 10:15 AM EDT 02/09/2019 10:15 AM EDT us Keke Katz APRN LAB URINE ORDERABLES Final Res ult [facility] [address] [place] [address], [place] [phone] * POCT hemoglobin, A1c (02/09/2019 8:10 AM EDT) POCT Hemoglobin A1C 9.2 4.4 - 6.4 % Blood specimen (specimen) 02/09/2019 8:10 AM EDT us Keke Katz STATION EXAMINER POCT ORDERABLES NO CHARGE Machelle l Result * HIV combo antigen/antibody (10/06/2018 3:59 PM EST) HIV Combo AB/AG Negative Negative 10/06/2018 6:02 PM EST [facility] Blood specimen (specimen) Venous blood specimen / Unknown Venipuncture / Unknown 10/06/2018 3:59 PM EST 10/06/2018 3:59 PM EST Narrative [facility] - 10/06/2018 6:02 PM EST This test is a 4th generation HIV Antigen-Antibody Combination assay, using a chemiluminescent microparticle immunoassay, for the simultaneous qualitative detection of human immuno- deficiency virus (HIV) p24 antigen and antibodies to HIV type 1 (HIV-1) and/or HIV type 2 (HIV-2) in human serum or plasma. The [employer] HIV Ag/Ab Combo assay is intended to [...] BLOOD ORDERABLES NO ST AT Final Result [facility] [address] [place] [address], [place] [phone] from Last 3 Months or Most Recently Relevant to Health Maintenance Insurance MEDICAID [place] D Care Teams Non Profit Director Relationship Specialty Start Date End Date Viet Sánchez PA [address] [place] [address] PCP - General Family Medicine 07/22/18
--- OUTSIDE RECORDS SUMMARY | 2025-03-22 16:27 | XMS_ITS | Clinical Summary ---
Author Organization [employer] Address [address] [facility] [address] [place] [address] Care Team Providers Care Shellfish Sorter Name Role Phone Maranda Serna MD Primary Care Provider [phone] Allergies Active Allergy Reactions Criticality Noted Date [...] 2 12/13/19 25 Active Easy Touch Pen Gail 31G X 8 MM miscIndications :Type 2 diabetes mellitus with hyperglycemia, with long-term current use of insulin ([facility]) USE DIRECTED THREE TIMES DAILY 200 [...] with long-term current use of insulin ([facility]) TEST BLOOD SUGAR THREE TIMES DAILY [...] Assessment & Plan (01/21/2025 12:33 PM EDT): -Harvest Contractor: [facility], last seen in Dec 2024 -11/30/2024- Cardiac catheterization showed kiew-ax-ynhqyaud distal LAD disease with severe distal stenosis [...] and supportive care - follow up with firestopper installer as scheduled Assessment & Plan (07/23/2024 9:02 [...] Plan (01/17/2025 11:35 AM EDT): - seeing firestopper installer - continue judicious use of gabapentin 100 mg tid - she wants to switch to tablet. Only tablets available are 600 and 800 mg tablet - will have her take 1/4 of 600 mg tablet and take bid; or will check with pharmacist if she can open the capsule and take inside content Assessment & Plan (07/23/2024 5:36 AM EDT): - seeing firestopper installer - continue judicious use of gabapentin 100 mg tid - she wants to switch to tablet. Only tablets available are 600 and 800 mg tablet - will have her take 1/4 of 600 mg tablet and take bid; or will check with pharmacist if she can open the capsule and take inside content Assessment & Plan (01/04/2024 3:36 PM EST): - seeing firestopper installer - continue judicious use of gabapentin Assessment & Plan (10/03/2023 9:48 AM EST): - seeing firestopper installer - waiting for diabetic orthotics Adjustment disorder [...] hyperkalemia and cough -Currently prescribed Dapagliflozin from wild oyster harvester -Follow up in 3-6 mo, sooner if [...] hyperkalemia and cough -Currently prescribed Dapagliflozin from wild oyster harvester -Follow up in 3-6 mo, sooner if [...] osteoarthritis; plantar fasciitis - referred to a firestopper installer; waiting for an appt - check [...] want to try any GLP-1 agonist. -Patient Contour Stitcher prescribed Farxiga. Patient is taking this medication [...] want to try any GLP-1 agonist. -Patient Contour Stitcher prescribed Farxiga. Patient is no longer taking [...] (01/04/2024 3:42 PM EST): - followed by [facility] - no anatomical pancreatic abnormality on MRI in Dec 2022 - continue vegan / plant-based pancreatic enzyme Assessment & Plan (10/03/2023 9:49 AM EST): - followed by [facility] - no anatomical pancreatic abnormality on MRI in Dec 2022 - continue vegan / plant-based pancreatic enzyme Assessment & Plan (06/07/2023 3:30 PM EDT): - followed by [facility] - no anatomical pancreatic abnormality on MRI in Dec 2022 - continue vegan / plant-based pancreatic enzyme Assessment & Plan (02/24/2023 5:30 AM EDT): - followed by [facility] - no anatomical pancreatic abnormality on MRI in Dec 2022 - continue vegan / plant-based pancreatic enzyme Assessment & Plan (12/18/2022 6:12 PM EST): - followed by [facility] - continue vegan pancreatic enzyme [...] Plan (01/21/2025 12:33 PM EDT): -Followed by [facility], last seen 01/03/25 -EGD and Colonoscopy on 12/24/21; showed Tubular Adenoma, she was recommended to repeat in 3 years. - pt has been using castor oil - continue trying fiber-rich diet and increasing physical activity as tolerated. - continue Senakot as prescribed Assessment & Plan (07/20/2024 1:50 PM EDT): -Followed by [facility], last seen 08/06/22 -EGD and Colonoscopy on 12/24/21; showed Tubular Adenoma, she was recommended to repeat in 3 years. - pt has been using castor oil - continue trying fiber-rich diet and increasing physical activity as tolerated. - continue Senakot as prescribed Assessment & Plan (01/04/2024 3:38 PM EST): -Followed by [facility], last seen 08/06/22 -EGD and Colonoscopy on 12/24/21; showed Tubular Adenoma, she was recommended to repeat in 3 years. - pt has been using castor oil - continue trying fiber-rich diet and increasing physical activity as tolerated. - continue Senakot as prescribed Assessment & Plan (06/07/2023 3:33 PM EDT): -Followed by [facility], last seen 08/06/22 -EGD and Colonoscopy on 12/24/21; showed Tubular Adenoma, she was recommended to repeat in 3 years. - pt has been using castor oil - continue trying fiber-rich diet and increasing physical activity as tolerated. - continue Senakot as prescribed Assessment & Plan (12/18/2022 6:26 PM EST): -Followed by [facility], last seen 08/06/22 -EGD and Colonoscopy on 12/24/21; showed Tubular Adenoma, she was recommended to repeat in 3 years. - pt has been using castor oil - continue trying fiber-rich diet and increasing physical activity as tolerated. - continue Senakot as prescribed Chronic kidney disease, stage III (moderate) 01/2022 Assessment & Plan (01/21/2025 12:32 PM EDT): - Contour Stitcher, Dr. Marci Hylton. Last seen on 01/25/25 - Metformin is discontinued, Dr. Tsai started her on Dapagliflozin (Farxiga) - Previously on Lisinopril, but was disccontinued due to cough / K - Avoid nephrotoxic drugs, including NSAID (no more Aleve) - Renal dose meds Assessment & Plan (07/23/2024 5:41 AM EDT): - Contour Stitcher, Dr. Marci Hylton. - Metformin is discontinued, Dr. Tsai started bryn ib Dapagliflozin (Farxiga) - Previously on Lisinopril, but was disccontinued due to cough / K - Avoid nephrotoxic drugs, including NSAID (no more Aleve) - Renal dose meds Assessment & Plan (01/04/2024 3:45 PM EST): - Contour Stitcher, Dr. 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 Tsai is prescribing Dapagliflozin (Farxiga) - Previously on Lisinopril, but was disccontinued due to cough / K - Avoid nephrotoxic drugs - Renal dose meds Assessment & Plan (10/03/2023 9:41 AM EST): - Contour Stitcher, Dr. 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 Tsai rx Farxiaakash for DM management - Previously on Lisinopril, but was disccontinued due to cough / K - Avoid nephrotoxic drugs - Renal dose meds - Pt was advised that atorvastatin is not nephrotoxic and it will lower her ASCVD risk. Pt continues to decline statin therapy. Assessment & Plan (06/07/2023 3:34 PM EDT): - Contour Stitcher, Dr. 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 [...] & Plan (02/24/2023 5:37 AM EDT): - Contour Stitcher, Dr. Tsai - Lab: 12/24/22 BUN 28, [...] & Plan (12/18/2022 6:31 PM EST): - Contour StitcherDr. 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 Eulalio [...] PM EST): -s/p EGD 12/24/21 -followed by [facility] -continue omeprazole 40mg daily -previously tried pantoprazole and lansoprazole; pt prefers omeprazole. -previously prescribed famotidine. Max dose for her renal function is 20 mg daily. Pt does not take it regularly. Assessment & Plan (10/03/2023 9:50 AM EST): -s/p EGD 12/24/21 -followed by [facility] -continue omeprazole 40mg daily -previously tried pantoprazole and lansoprazole; pt prefers omeprazole. -previously prescribed famotidine. Max dose for her renal function is 20 mg daily. Pt does not take it regularly. Assessment & Plan (06/07/2023 3:33 PM EDT): -s/p EGD 12/24/21 -followed by [facility] -continue omeprazole 40mg daily -previously tried pantoprazole and lansoprazole; pt prefers omeprazole. -previously prescribed famotidine. Max dose for her renal function is 20 mg daily. Pt does not take it regularly. Assessment & Plan (12/18/2022 6:28 PM EST): -s/p EGD 12/24/21 -followed by [facility] -continue prantoprazol 40mg daily -previously prescribed famotidine. Max dose for her renal function is 20 mg daily. Irritable bowel syndrome 10/12/2022 Assessment & Plan (07/20/2024 1:50 PM EDT): - followed by [facility] - continue current treatment plan per GI - low FODMAP diet - pt is prescribed simethicone, Sennakot, citrucel, but does not like taking it regularly Assessment & Plan (01/04/2024 3:42 PM EST): - followed by [facility] - continue current treatment plan per GI - low FODMAP diet - pt is prescribed simethicone, Sennakot, citrucel, but does not like taking it regularly Assessment & Plan (10/03/2023 9:49 AM EST): - followed by [facility] - continue current treatment plan per GI - low FODMAP diet - pt is prescribed simethicone, Sennakot, citrucel, but does not like taking it regularly Assessment & Plan (06/07/2023 3:32 PM EDT): - followed by [facility] - continue current treatment plan per GI - low FODMAP diet - pt is prescribed simethicone, Sennakot, citrucel, but does not like taking it regularly Assessment & Plan (12/18/2022 6:27 PM EST): - followed by [facility] - continue current treatment plan per [...] - Prescribed dapagliflozin (Farxiga) from PCP and wild oyster harvester, questionable adherence - Discussed about CGM, which she does not want to use it at this time Treatment Hx -Pt has taken GLP-1 agonists and had significant side effects, mainly GI. Pt states she does not want to try any GLP-1 agonist. -Patient Contour Stitcher prescribed Farxiga. Patient is taking this medication [...] want to try any GLP-1 agonist. -Patient Contour Stitcher prescribed Farxiga. Patient is taking this medication [...] want to try any GLP-1 agonist. -Patient Contour Stitcher prescribed Farxiga. Patient is no longer taking [...] want to try any GLP-1 agonist. -Patient Contour Stitcher prescribed Farxiga. Patient is no longer taking [...] want to try any GLP-1 agonist. -Patient Contour Stitcher prescribed Farxiga. Patient is no longer taking [...] want to try any GLP-1 agonist. -Patient Contour Stitcher prescribed Farxiga. Patient is no longer taking [...] Description 02/15/2025 2:00 PM EDT Office Visit [facility] [address] [phone] Joleen Avery MD Viral upper respiratory infection 02/15/2025 Telephone [facility] [address] [place] [address] Joleen Avery MD 02/09/2025 Telephone [facility] [address] [place] [address] Maranda Serna MD 02/09/2025 Telephone [facility] [place] [address] Maranda Serna MD 02/07/2025 Orders Only [facility] [place] [address] Maranda Serna MD Pulmonary nodule (Primary Dx) 01/28/2025 Orders Only [facility] [place] [address] Maranda Serna MD Type 2 diabetes mellitus with hyperglycemia, with long-term current use of insulin ([facility]) 01/21/[address] [facility] Risk Score [facility] () [address] [address] Provider, Population Health Generic 01/17/2025 11:00 AM EDT Office Visit [facility] [place] [address] Maranda Serna MD Coronary artery disease of [place] artery of [place] heart with stable angina pectoris (CMS/HCC) (Primary Dx); Stage 3b chronic kidney disease (CMS/HCC); Chronic idiopathic constipation; Type 2 diabetes mellitus with hyperglycemia, with long-term current use of insulin (CMS/HCC); Type 2 diabetes mellitus with stage 3b chronic kidney disease, with long-term current use of insulin (CMS/HCC); Dyslipidemia; Anemia due to stage 3b chronic kidney disease (CMS/HCC) (CMS/HCC) 01/17/2025 Travel 01/13/2025 Orders Only [facility] [place] [address] Maranda Serna MD Pulmonary nodule (Primary Dx) 01/13/2025 Telephone [facility] [place] [address] Maranda Serna MD chart prep 01/12/2025 Refill [facility] [place] [address] Yesica Naylor MD 12/23/2024 Orders Only GENERIC [...] Description 04/12/2025 3:30 PM EDT Office Visit [facility] [address] [place] [address] Maranda Serna MD [address] [place] [address] Health Maintenance Due Date Last Done Comments [...] this topic Meningococcal Vaccine Aged Out No naahi bryn eligible based on patient's age to [...] with long-term current use of insulin ([facility]) POCT GLUCOSE Routine 01/17/2025 11:29 AM EDT Type 2 diabetes mellitus with hyperglycemia, with long-term current use of insulin ([facility]) CULTURE, URINE, ROUTINE Routine 12/23/2024 1:00 PM EST BI MAMMOGRAM SCREENING TOMOSYNTHESIS BILATERAL Routine 02/10/2024 2:40 PM EDT LIPID PANEL WITH REFLEX TO DIRECT LDL Routine 12/30/2023 4:50 PM EST Type 2 diabetes mellitus with hyperglycemia, with long-term current use of insulin ([facility]) Dyslipidemia HM COLONOSCOPY Routine 07/07/2022 from Last 3 Months or Most Recently Relevant to Health Maintenance Results * CT Chest w/o Contrast (02/25/2025 11:15 AM EDT) Anatomical Region Laterality Modality Body, Chest Computed Tomogra phy 02/25/2025 11:1 5 AM EDT Narrative 02/25/2025 11:59 AM EDT ? [facility] ?[address] ?[place] [address] ? CT Scan Report ? Signed ? Patient: Reji,Ese ?MR#: [id number] ?? 8 ? : 1960 ?Acct:[id number] ? Age/Sex: 64 / F ?ADM Date: 02/25/25 ? Loc: HO.CT ? Attending Dr: Maranda Serna MD ? Ordering Physician: Maranda Serna MD ?? Date of Service: 02/25/25 ?? Procedure(s): CT chest wo IV con ?? Accession Number(s): [id number] ? cc: Maranda Serna MD ? Report Number: ?? [id number]: Total DLP = ??183.00 mGy-cm ?? EXAMINATION: [...] DLP: 183 mGy centimeter. ? FINDINGS: ? TIN FLIPPER: Large body habitus. ?? Vascular clips right [...] DD/ 1115 ? TD/TT: 02/25/25 1124 ? Baton Teacher: ? Procedure Note Ezekiel, Image - 02/25/[address] [address] Scan Report Signed Patient: Kristen Mendoza#: [id number] 8 : 1960Acct:[id number] Age/Sex: 64 / FADM Date: 02/25/25 Loc: HO.CT Attending Dr: Maranda Serna MD Ordering Physician: Maranda Serna MD Date of Service: 02/25/25 Procedure(s): CT chest wo IV con Accession Number(s): [id number] cc: Maranda Serna MD Report Number: [id number]: Total DLP = 183.00 mGy-cm EXAMINATION: CT [...] reconstruction technique DLP: 183 mGy centimeter. FINDINGS: TIN FLIPPER: Large body habitus. Vascular clips right upper [...] 02/25/25 1155 DD/ 1115 TD/TT: 02/25/25 1124 Baton Teacher: Maranda Serna MD IMG CT PROCEDURES Edited [...] PM EDT Narrative 02/15/2025 2:22 PM EDT ?[facility] ?[address] ?[place] [address] ?XRay Report ? Signed ? Patient: Ese Mendoza ?MR#: [id number] ?? 8 ? : 1960 ?Acct:[id number] ? Age/Sex: 64 / F ?ADM Date: 02/15/25 ? Loc: HO.HHCX ? Attending Dr: Joleen Avery MD ? Ordering Physician: Joleen Avery MD ?? Date of Service: 02/15/25 ?? Procedure(s): XR chest 2V ?? Accession Number(s): [id number] ? cc: Joleen Avery MD ? EXAMINATION: [...] DD/ 1403 ? TD/TT: 02/15/25 1405 ? Baton Teacher: ? Procedure Note Constantin Falcon - 02/15/[address] [address] XRay Report Signed Patient: Ese MendozaMR#: [id number] 8 : 1960Acct:[id number] Age/Sex: 64 / FADM Date: 02/15/25 Loc: HO.HHCX Attending Dr: Joleen Avery MD Ordering Physician: Joleen Avrey MD Date of Service: 02/15/25 Procedure(s): XR chest 2V Accession Number(s): [id number] cc: Joleen Avery MD EXAMINATION: XR CHEST [...] 02/15/25 1420 DD/ 1403 TD/TT: 02/15/25 1405 Baton Teacher: Joleen Avery MD IMG XR PROCEDURES Final Re sult * Influenza B (ID NOW Rapid Molecular) (02/15/2025 1:46 PM EDT) [facility] Influenza B Negative Negative, Indeterminate [facility] Swab 02/15/2025 1:46 PM EDT Joleen Avery MD POINT OF CARE TEST ENTER/E DIT ORDERABLES Final Result Performing Organization Address City/[facility]/ZIP Co de Phone Number [facility] [address] [place] [phone] * Influenza A (ID NOW Rapid Molecular) (02/15/2025 1:46 PM EDT) [facility] Influenza A Negative Negative, Indeterminate [facility] Swab 02/15/2025 1:46 PM EDT Joleen Avery MD POINT OF CARE TEST ENTER/E DIT ORDERABLES Final Result Performing Organization Address City/[facility]/ZIP Co de Phone Number [facility] [address] [place] [phone] * POCT Rapid COVID Ag (02/15/2025 1:46 PM EDT) [facility] Rapid COVID Ag Negative Swab 02/15/2025 1:46 PM EDT Joleen Avery MD POINT OF CARE TEST ENTER/E DIT ORDERABLES Final Result * (ABNORMAL) POCT glycosylated hemoglobin (Hgb A1c) (01/17/2025 11:29 AM EDT) [facility] Hemoglobin A1C 9.0(A) 4.0 - 6.0 % QC Media Lot # [id number] Lot# Expiration Date [id number] Blood Capillary blood specimen / Unknown 01/17/2025 11:29 AM EDT Maranda Serna MD POINT OF CARE TEST ENTER/EDIT OR DERABLES Final Result * (ABNORMAL) POCT glucose manually resulted (01/17/2025 11:29 AM EDT) Glucose Blood, POC 235(A) 60 - 200 mg/dL QC Media Lot # [id number] Lot# Expiration Date [id number] Blood Capillary blood specimen / Unknown 01/17/2025 11:29 AM EDT Maranda Serna MD POINT OF CARE TEST ENTER/EDIT OR DERABLES Final Result * Culture, Urine, Routine (12/23/2024 1:00 PM EST) Urine Urine specimen obtained by clean catch procedure / Unknown 12/23/2024 1:00 PM EST 12/23/2024 4:59 PM EST Comment:[facility] - 12/26/2024 7:26 AM EST Escherichia coli Quant > 100,000 cfu/mL Escherichia coli: Ampicillin 8(S) Escherichia coli: Cefazolin (Urine) 2(S) Escherichia coli: Cefepime <=0.12(S) Escherichia coli: Ceftriaxone <=0.25(S) Escherichia coli: Ciprofloxacin <=0.06(S) Escherichia coli: Gentamicin <=1(S) Escherichia coli: Nitrofurantoin <=16(S) Escherichia coli: Trimethoprim/Sulfamethoxazole <=20(S) Specimen Source: Urine clean catch Generic External Data Provider LAB MICROBIOLOGY - GENERAL ORDERABLES Final Result [facility] [address] [place] [phone] * BI Mammogram Screening Tomosynthesis Bilateral (02/10/2024 2:40 PM EDT) Anatomical Region Laterality Modality Breast Bilateral Mammography 02/10/2024 2:40 PM EDT Narrative 02/22/2024 3:43 PM EDT ? [place] [facility] ? [address] ?[place] [address] ? Mammography Report ? Signed ? Patient: Reji,Ese ?MR#: [id number] ?? 8 ? : 1960 ?Acct:[id number] ? Age/Sex: 63 / F ?ADM Date: 02/10/24 ? Loc: HO.MAMMO ? Attending Dr: Maranda Serna MD ? Ordering Physician: Maranda Serna MD ?Results: 1Negative ? Date of Service: 02/10/24 ?Follow Up: 1 Year From Orig ?? inal Mammogram ? Procedure(s): MM tomosynthesis screening BI ?? Accession Number(s): [id number] ? cc: Maranda Serna MD ? EXAMINATION: [...] These include several, bilateral, ?? benign macrocalcifications community health representative of fat necrosis. ? MM/MM tomosynthesis [...] 1539 ? DD/ 1440 ? TD/TT: ? Baton Teacher: ? Procedure Note Ezekiel, Image - 02/22/2024 [place] [facility] [address] [place] [address] Mammography Report Signed Patient: Kristen Mendoza#: [id number] 8 : 1960Acct:[id number] Age/Sex: 63 / FADM Date: 02/10/24 Loc: [place] Attending Dr: Maranda Serna MD Ordering Physician: Maranda Serna MDResults: 1Negative Date of Service: 02/10/24Follow Up: 1 Year From Orig inal Mammogram Procedure(s): MM tomosynthesis screening BI Accession Number(s): [id number] cc: Maranda Serna MD EXAMINATION: MM SCREENING [...] present. These include several, bilateral, benign macrocalcifications community health representative of fat necrosis. MM/MM tomosynthesis screening [...] in OV> 02/22/24 1539 DD/ 1440 TD/TT: Baton Teacher: us Maranda Serna MD IM BI PROCEDURES Edited Result - Final * (ABNORMAL) Lipid Panel with Reflex to Direct LDL (12/30/2023 4:50 PM EST) Triglycerides 177(H) <150 mg/dL [facility] Comment:Desirable Triglyceri de: less than 150 mg/dLBorderline High Triglyceride 150-199 mg/dLHigh Triglyceride: 200-499 mg/dLVery High Triglyceride: greater than or equal to 5OO mg/dL Cholesterol 235(H) <200 mg/dL [facility] Comment:Desirable Cholestero l: less than 200 mg/dLBorderline High Cholesterol: 200-239 mg/dLHigh Cholesterol: greater than 239 mg/dL LDL Cholesterol Calculated 151(H) <100 mg/dL [facility] Comment:Desirable LDL: less than 100 mg/dLNear Optimal/Above Optimal LDL: 110- 129 mg/dLBorderline High LDL: 130-159 mg/dLHigh LDL: 160-189 mg/dLVery High LDL: greater than or equal to 190 mg/dL HDL Cholesterol 49 >40 mg/dL [facility] Comment:Desirable HDL: great er than 40 mg/dL Note: This HDL assay may give artificially low results in patients with liver disease. Blood 12/30/2023 4:5 0 PM EST 12/30/2023 5:26 PM EST Maranda Serna MD LAB BLOOD ORDERABLES Final Resul t [facility] [address] [place], [place] [phone] * (ABNORMAL) Colonoscopy (07/07/2022) Colonoscopy Abnormal(A ) Normal [facility] External Provider HEALTH MAINTENANCE Final Result from Last 3 Months or Most Recently Relevant to Health Maintenance Insurance [facility] STANDARD Care Teams Shellfish Sorter Relationship Specialty Start Date End Date Maranda Serna MD [address] [place] [address] PCP - General Family Medicine 08/01/21
--- OUTSIDE RECORDS SUMMARY | 2025-03-22 16:27 | XMS_ITS | Encounter Summary ---
Author Organization [facility] Address [address] [place] [address] Care Team Providers Care Web Editor Name Role Phone Viet Sánchez Unavailable [phone] Viet Sánchez Primary Care Provider Encounter Details Date Type Department Care Team (Late st Contact Info) Description 07/07/2018 Scanned Document [facility] [place] [address] [place] [address] Provider, Sheryl, [address] [place] [address] Social History Tobacco Use Types Packs/Day Years [...] filedocumented in this encounter Care Teams Web Editor Relationship Specialty Start Date End Date Viet Sánchez PA [address] [place] [address] PCP - General 06/18/18 Viet Sánchez PA [address] [place] [phone] 06/18/18 documented as of this encounter
--- OUTSIDE RECORDS SUMMARY | 2025-03-22 16:27 | XMS_ITS | Encounter Summary ---
Author Organization [employer] Address [address] [place] [address] Care Team Providers Care Shipping And Receiving Supervisor Name Role Phone Maranda Serna MD Primary Care Provider [phone] Encounter Details Date Type Department Care Team ([facility] st Contact Info) Description 01/28/2025 Orders Only [facility] [address] [place] [address] Maranda Serna MD [address] [place], [place] [phone] Type 2 diabetes mellitus with hyperglycemia, with long-term current use of insulin ([facility]) Social History Tobacco Use Types [...] Description 04/12/2025 3:30 PM EDT Office Visit [facility] [address] [place] [phone] Maranda Serna MD [address] [place] [phone] documented as of this encounter Visit Diagnoses Diagnosis Type 2 diabetes mellitus with hyperglycemia, with long-term current use of insulin ([facility]) documented in this encounter Additional Health Concerns Assessment Noted Time PHQ-9 Depression Total Score: 0 01/18/20 25 1:12 PM EDT documented as of this encounter Care Teams Shipping And Receiving Supervisor Relationship Specialty Start Date End Date Maranda Serna MD [address] [place] [phone] PCP - General Family Medicine 08/01/21 documented as of this encounter
--- OUTSIDE RECORDS SUMMARY | 2025-03-22 16:27 | XMS_ITS | Encounter Summary ---
Author Organization [facility] Address [address] [address] Phone Care Team Providers Care Sweatband Flanger Name Role Phone Maranda Serna MD Primary Care Provider [phone] Encounter Details Date Type Department Care Team (Late st Contact Info) Description 01/25/2025 Office Communication [facility] [address] [place] [address] Marci Gleason ARNP [address] [address] Social History Tobacco Use Types Packs/Day Years Used Date Smoking Tobacco: Never Smokeless Tobacco: Never Alcohol Use Standard Drinks/Week Comments Yes 0 (1 standard drink = 0.6 oz pure alcohol) Intermittently Hot Amanda. Tea with Vilas only if sick Comments Unknown Sex and [...] [facility] [address] [address] Marci Gleason ARNP [address] [address] documented as of this encounter Visit Diagnoses Not on filedocumented in this encounter Care Teams Sweatband Flanger Relationship Specialty Start Date End Date Maranda Serna MD [address] [place] [address] PCP - General Family Medicine 08/24/21 documented as of this encounter
--- OUTSIDE RECORDS SUMMARY | 2025-03-22 16:27 | XMS_ITS | Encounter Summary ---
Author Organization [facility] Address [address] [place] [address] Care Team Providers Care Sulphate Tester Name Role Phone Viet Sánchez Unavailable [phone] Viet Sánchez Primary Care Provider [phone] Encounter Details Date Type Department Care Team (Late st Contact Info) Description 11/09/2019 Prep for Surgery OPHTHALMOLOGY [address] [place] [address] Holland Hunt MD 85 [facility] [address] [facility] [place] [phone] Social History Tobacco Use Types Packs/Day Years [...] on filedocumented in this encounter Care Teams Sulphate Tester Relationship Specialty Start Date End Date Viet Sánchez PA [address] [place] [address] PCP - General 06/18/18 Viet Sánchez PA [address] [place] [address] 06/18/18 documented as of this encounter
--- OUTSIDE RECORDS SUMMARY | 2025-03-22 16:27 | XMS_ITS | Encounter Summary ---
Author Organization [employer] Address 75 [facility] 7t [place] [address] Care Team Providers Care Observer Electrical Prospecting Name Role Phone Maranda Serna MD Primary Care Provider [phone] Encounter Details Date Type Department Care Team ([facility] st Contact Info) Description 04/22/2023 Orders Only [facility] [address] [place] [address] Maranda Serna MD [address] [place] [address] Left foot pain (Primary Dx); Type 2 diabetes mellitus with hyperglycemia, with long-term current use of insulin ([facility]) Social History Tobacco Use [...] Office Visit [facility] [address] [place] [address] Maranda Serna MD [address] [place] [address] documented as of this encounter Visit Diagnoses Diagnosis Left foot pain- Primary Pain in soft tissues of limb Type 2 diabetes mellitus with hyperglycemia, with long-term current use of insulin ([facility]) documented in this encounter Additional Health Concerns Assessment Noted Time PHQ-9 Depression Total Score: 6 10/23/20 22 10:04 AM EST documented as of this encounter Care Teams Observer Electrical Prospecting Relationship Specialty Start Date End Date Maranda Serna MD [address] [place] [address] PCP - General Family Medicine 08/01/21 documented as of this encounter
--- OUTSIDE RECORDS SUMMARY | 2025-03-22 16:27 | XMS_ITS | Encounter Summary ---
Author Organization [employer] Address 75 [facility] 7t [place] [address] Care Team Providers Care Rubber Curer Name Role Phone Maranda Serna MD Primary Care Provider [phone] Reason for Visit * Reason Comments Med Refill Encounter Details Date Type Department Care Team (Late st Contact Info) Description 11/19/2023 Refill [facility] [address] [place], [place] [phone] Yescia Naylor MD 230 [place] [address] Social History Tobacco Use Types Packs/Day Years [...] Description 04/12/2025 3:30 PM EDT Office Visit [facility] [address] [place] [address] Maranda Serna MD [address] [place] [address] documented as of this encounter Visit Diagnoses Not on filedocumented in this encounter Additional Health Concerns Assessment Noted Time PHQ-9 Depression Total Score: 6 10/23/20 22 10:04 AM EST documented as of this encounter Care Teams Rubber Curer Relationship Specialty Start Date End Date Maranda Serna MD [address] [place] [address] PCP - General Family Medicine 08/01/21 documented as of this encounter
--- OUTSIDE RECORDS SUMMARY | 2025-03-22 16:27 | XMS_ITS | Encounter Summary ---
Author Organization [employer] Address [address] [facility] [address] 7t [place] [address] Care Team Providers Care Nursing Clerk Name Role Phone Maranda Serna MD Primary Care Provider [phone] Encounter Details Date Type Department Care Team ([facility] st Contact Info) Description 01/13/2025 Orders Only [facility] MEDICINE [address] [place] [address] Maranda Serna MD 230 [place], [place] [phone] Pulmonary nodule (Primary Dx) Social History Tobacco [...] Description 04/12/2025 3:30 PM EDT Office Visit [facility] MEDICINE [address] [place] [address] Maranda Serna MD [address] [place] [address] documented as of this encounter Visit Diagnoses Diagnosis Pulmonary nodule- Primary Other diseases of lung, not elsewhere classified documented in this encounter Additional Health Concerns Assessment Noted Time PHQ-9 Depression Total Score: 6 10/23/20 22 10:04 AM EST documented as of this encounter Care Teams Nursing Clerk Relationship Specialty Start Date End Date Maranda Serna MD [address] [place] [address] PCP - General Family Medicine 08/01/21 documented as of this encounter
--- OUTSIDE RECORDS SUMMARY | 2025-03-22 16:27 | XMS_ITS | Encounter Summary ---
Author Organization [employer] Address 75 [facility] 7t [place] [address] Care Team Providers Care Head Librarian Name Role Phone Maranda Serna MD Primary Care Provider [phone] Reason for Visit * Reason Comments Med Refill Encounter Details Date Type Department Care Team (Late st Contact Info) Description 01/12/2025 Refill [facility]INE 230 [place], [place] [phone] Yesica Naylor MD [address] [place] [address] Social History Tobacco Use Types Packs/Day Years [...] 3:30 PM EDT Office Visit [facility] 230 [place] [address] Maranda Serna MD 230 [place] [address] documented as of this encounter Visit Diagnoses Not on filedocumented in this encounter Additional Health Concerns Assessment Noted Time PHQ-9 Depression Total Score: 6 10/23/20 22 10:04 AM EST documented as of this encounter Care Teams Head Librarian Relationship Specialty Start Date End Date Maranda Serna MD [address] [place] [address] PCP - General Family Medicine 08/01/21 documented as of this encounter
--- OUTSIDE RECORDS SUMMARY | 2025-03-22 16:27 | XMS_ITS | Clinical Summary ---
Author Organization [facility] Address [address] [place] [address] Phone Care Team Providers Care Tire Balancer Name Role Phone Machelle Swann MD Primary Care Provider [phone] Allergies Active Allergy Reactions Criticality Noted Date [...] 42 mcg (0.06 %) nasal spray 1 [place] by Nasal route. 09/24/20 Active omega-3 acid [...] osteoarthritis; plantar fasciitis - referred to a single spindle screw machine operator; waiting for an appt - check the [...] hyperkalemia and cough -Currently prescribed Dapagliflozin from certified wellness program coordinator -Follow up in 3-6 mo, sooner if [...] Last Assessment & Plan: - followed by [facility] - no anatomical pancreatic abnormality on MRI in Dec 2022 - continue vegan / plant-based pancreatic enzyme Right knee pain 12/16/2022 Allergic rhinitis 10/12/2022 Anemia 10/12/2022 Overview (08/25/2024): Last Assessment & Plan: - likely due to chronic diseaes - Hx iron infusion - 12/24/22 Hgb 11.7, Hematocrit 35.7 Chronic idiopathic constipation 10/12/2022 Overview (08/25/2024): Last Assessment & Plan: -Followed by [facility], last seen 08/06/22 -EGD and Colonoscopy on 12/24/21; showed Tubular Adenoma, she was recommended to repeat in 3 years. - pt has been using castor oil - continue trying fiber-rich diet and increasing physical activity as tolerated. - continue Senakot as prescribed Chronic kidney disease, stag e III (moderate) ([facility] V24, [facility] V28) 10/12/2022 Overview (08/25/2024): Last Assessment & Plan: - Appeals Representative, Dr. 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 Tsai is prescribing Dapagliflozin (Farxiga) - Previously on Lisinopril, but was disccontinued due to cough / K - Avoid nephrotoxic drugs - Renal dose meds Gastroesophageal reflux disease 10/12/2022 Overview (08/25/2024): Last Assessment & Plan: -s/p EGD 12/24/21 -followed by [facility] -continue omeprazole 40mg daily -previously tried pantoprazole and lansoprazole; pt prefers omeprazole. -previously prescribed famotidine. Max dose for her renal function is 20 mg daily. Pt does not take it regularly. Irritable bowel syndrome 10/12/2022 Overview (08/25/2024): Last Assessment & Plan: - followed by [facility] - continue current treatment plan per GI - low FODMAP diet - pt is prescribed simethicone, Sennakot, citrucel, but does not like taking it regularly Osteopenia 10/12/2022 Atrial fibrillation ([facility] V24, [facility] V28) 0 12/25/2021 Cobalamin deficiency 12/25/2021 Diabetic retinopathy ([facility] V24, [facility] V28) 12/25/2021 Nephrolithiasis 12/25/2021 Overview (08/25/2024): Last Assessment & Plan: - seen by urologist, last visit on Vitamin D deficiency 12/25/2021 Diabetic peripheral neuropat hy associated with type 2 diabetes mellitus ([facility] V24, [facility] V28) 11/22/2019 Nonrheumatic mitral valve regurgitation 11/09/20 Nonrheumatic tricuspid valve regurgitation 11/09 Obstructive sleep apnea syndrome 11/09/2019 Overview (08/25/2024): Last Assessment & Plan: - Pt does not feel comfortable with CPAP SOB (shortness of breath) 11/09/2019 Type 2 diabetes mellitus wit hout complication ([facility] V24, [facility] V28) 11/09/2019 Arthritis 03/03/2019 Chronic cough 01/26/2019 Moderate persistent asthma with acute exacerbati on 01/26/2019 Pulmonary hypertension ([facility] V24, [facility] V28 ) 12/31/2018 Pulmonary arterial hypertension ([facility] V24, [facility] V28) 11/19/2018 Ulcer of foot ([facility] V24, [facility] V28) 011 Encounters Date Type Department Care Team Description 03/17/2025 2:00 PM EDT Office Visit Orthopedic Surgery - [address] [phone] Damien Centeno, VENESSA Controlled type 2 diabetes with neuropathy ([facility] V24, [facility] V28) (Primary Dx); Capsulitis of metatarsophalangeal (MTP) [...] PM EDT Office Visit Orthopedic Surgery - [place] [address] [address] Damien Centeno DPM [address] [address] Health Maintenance Due Date Last Done Comments [...] BMP Blood Test (12/30/2023) Pathologist [facility] Annual BMP Blood Test Abstracted Result [facility] Provider HEALTH MAINTENANCE Final Result * Hemoglobin A1c (12/30/2023) Pathologist [facility] Hemoglobin A1C 0.0 % Comment:no interpretation Blood Venous blood specimen / Unknown Result [facility] Provider LAB BLOOD ORDERABLES Machelle l Result * Lipid panel (12/30/2023) [facility] Triglycerides 0 mg/dL Comment:no interpretation Cholesterol 0 mg/dL Comment:no interpretation HDL 0 mg/dL Comment:no interpretation LDL Cholesterol 0 mg/dL Comment:no interpretation Blood Venous blood specimen / Unknown Result [facility] Provider LAB BLOOD ORDERABLES Machelle l Result * Urine Albumin Creatinine Ratio (07/24/2022) Pathologist [facility] Urine Albumin Creatinine Ratio Abstracted Result [facility] Provider HEALTH MAINTENANCE Final Result from Last 3 Months or Most Recently Relevant to Health Maintenance Insurance MEDICAID - [place] Care Teams Tire Balancer Relationship Specialty Start Date End Date Machelle Swann MD [address] [place] [address] [place] [address] PCP - General 10/15/12
--- OUTSIDE RECORDS SUMMARY | 2025-03-22 16:27 | XMS_ITS | Encounter Summary ---
Author Organization [employer] Address 75 [facility] 7t [place] [address] Care Team Providers Care Railroad Mechanic Name Role Phone Maranda Serna MD Primary Care Provider [phone] Reason for Referral * Imaging (Routine) - Closed Specialty Diagnoses / Procedures Referred By Contjacque t Referred To Contact Radiology Diagnoses Pulmonary nodule Procedures CT Chest w/o Contrast Maranda Serna MD [address] [place] [address] Phone: tel: fax: [address] Phone: tel: fax: Referral ID Status Reason Start Date Expiration Date Visits Re quested Visits Authorized [id number] Closed 02/07/2025 02/07/2026 1 1 Encounter Details Date Type Department Care Team (Late st Contact Info) Description 02/07/2025 Orders Only [facility] MED[facility]INE [address] [place], [place] [phone] Maranda Serna MD [address] [place], [place] [phone] Pulmonary nodule (Primary Dx) Social History Tobacco [...] Description 04/12/2025 3:30 PM EDT Office Visit [facility] [address] [place] [address] Maranda Serna MD [address] [place] [address] documented as of this encounter Procedures Procedure Name Priority Date/Time Associated Diagnosis Comments CT CHEST WO CONTRAST Routine 02/25/2025 11:15 AM EDT Pulmonary nodule documented in this encounter Results * CT Chest w/o Contrast (02/25/2025 11:15 AM EDT) Anatomical Region Laterality Modality Body, Chest Computed Tomogra phy 02/25/2025 11:1 5 AM EDT Narrative 02/25/2025 11:59 AM EDT ? [facility] ?[address] ?[place] [address] ? CT Scan Report ? Signed ? Patient: Reji,Ese ?MR#: [id number] ?? 8 ? : 1960 ?Acct:[id number] ? Age/Sex: 64 / F ?ADM Date: 02/25/25 ? Loc: HO.CT ? Attending Dr: Maranda Serna MD ? Ordering Physician: Maranda Serna MD ?? Date of Service: 02/25/25 ?? Procedure(s): CT chest wo IV con ?? Accession Number(s): [id number] ? cc: Maranda Serna MD ? Report Number: ?? [id number]: Total DLP = ??183.00 mGy-cm ?? EXAMINATION: [...] DLP: 183 mGy centimeter. ? FINDINGS: ? ORAL AND MAXILLOFACIAL PATHOLOGIST: Large body habitus. ?? Vascular clips right [...] DD/ 1115 ? TD/TT: 02/25/25 1124 ? University Archivist: ? Procedure Note Constantin Falcon - 02/25/[address] [address] [place] Scan Report Signed Patient: Kristen Mendoza#: [id number] 8 : 1960Acct:[id number] Age/Sex: 64 / FADM Date: 02/25/25 Loc: HO.CT Attending Dr: Maranda Serna MD Ordering Physician: Maranda Serna MD Date of Service: 02/25/25 Procedure(s): CT chest wo IV con Accession Number(s): [id number] cc: Maranda Serna MD Report Number: [id number]: Total DLP = 183.00 mGy-cm EXAMINATION: CT [...] reconstruction technique DLP: 183 mGy centimeter. FINDINGS: ORAL AND MAXILLOFACIAL PATHOLOGIST: Large body habitus. Vascular clips right upper [...] 02/25/25 1155 DD/ 1115 TD/TT: 02/25/25 1124 University Archivist: Maranda Serna MD [facility] CT PROCEDURES Edited Result - Final documented in this encounter Visit Diagnoses Diagnosis Pulmonary nodule- Primary Other diseases of lung, not elsewhere classified documented in this encounter Additional Health Concerns Assessment Noted Time PHQ-9 Depression Total Score: 0 01/18/20 25 1:12 PM EDT documented as of this encounter Care Teams Railroad Mechanic Relationship Specialty Start Date End Date Maranda Serna MD [address] [place] [address] PCP - General Family Medicine 08/01/21 documented as of this encounter
--- OUTSIDE RECORDS SUMMARY | 2025-03-22 16:27 | XMS_ITS | Encounter Summary ---
Author Organization [employer] Address 75 [facility] 7t [place] [address] Care Team Providers Care Salesperson Surgical Appliances Name Role Phone Maranda Serna MD Primary Care Provider [phone] Reason for Visit * Reason Onset Date Comments Hospital Follow-up 12/07/2024 Encounter Details Date Type Department Care Team ([facility] Contact Info) Description 12/07/2024 Telephone [facility] [address] [place], [place] [phone] Maranda Serna MD [address] [place], [place] [phone] Hospital Follow-up Social History Tobacco Use Types [...] follow up. Pt requested a call back. [phone] (Pt Contact) documented in this encounter Plan of Treatment Upcoming Encounters Date Type Department Care Team (Late st Contact Info) Description 04/12/2025 3:30 PM EDT Office Visit [facility] [address] [place] [address] Maranda Serna MD [address] [place] [address] documented as of this encounter Visit Diagnoses Not on filedocumented in this encounter Additional Health Concerns Assessment Noted Time PHQ-9 Depression Total Score: 6 10/23/20 22 10:04 AM EST documented as of this encounter Care Teams Salesperson Surgical Appliances Relationship Specialty Start Date End Date Maranda Serna MD [address] [place] [address] PCP - General Family Medicine 08/01/21 documented as of this encounter
--- OUTSIDE RECORDS SUMMARY | 2025-03-22 16:28 | XMS_ITS | Encounter Summary ---
Author Organization [facility] Address [address] [facility] [address] [place] [address] Phone Care Team Providers Care Mica Builder Name Role Phone Maranda Serna MD Primary Care Provider Encounter Details Date Type Department Care Team (Late st Contact Info) Description 05/17/2024 Office Communication [facility] [address] [place] [address] Marci Gleason ARNP [address] [address] Social History Tobacco Use Types Packs/Day Years Used Date Smoking Tobacco: Never Smokeless Tobacco: Never Alcohol Use Standard Drinks/Week Comments Yes 0 (1 standard drink = 0.6 oz pure alcohol) Intermittently Hot Amanda. Tea with Evangeline only if sick Comments Unknown Sex and [...] Visit [facility] [address] [facility] [address] [place] [address] Marci Gleason ARNP [address] [facility] [address] [place] [address] documented as of this encounter Visit Diagnoses Not on filedocumented in this encounter Care Teams Mica Builder Relationship Specialty Start Date End Date Maranda Serna MD [address] [place] [address] PCP - General Family Medicine 08/24/21 documented as of this encounter
--- OUTSIDE RECORDS SUMMARY | 2025-03-22 16:28 | XMS_ITS | Encounter Summary ---
Author Organization [facility] Address [address] [place] [address] Care Team Providers Care Primary Health Care Nurse Name Role Phone Viet Sánchez Unavailable [phone] Viet Sánchez Primary Care Provider Encounter Details Date Type Department Care Team (Late st Contact Info) Description 02/18/2020 Scanned Document [facility] [address] [place] [phone] Provider, Sheryl, [address] [place] [address] Social History Tobacco Use Types Packs/Day Years [...] on filedocumented in this encounter Care Teams Primary Health Care Nurse Relationship Specialty Start Date End Date Viet Sánchez PA [address] [place] [address] PCP - General 06/18/18 Viet Sánchez PA [address] [place] [address] 06/18/18 documented as of this encounter
--- OUTSIDE RECORDS SUMMARY | 2025-03-22 16:28 | XMS_ITS | Clinical Summary ---
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 - Will obtain lab work. Also curious to see radiographic imaging of the hands, feets, SI and lumbar spine. Will obtain interval history from structural steel worker apprentice Karlee Le. - RTC in 4 months - she is to continue with mtx 4 tabs qweekly and folic acid Ulcer of foot 07/19/2011 07/22/2022 Encounters Date Type Department Care Team Description 01/26/2025 Refill [facility] [address] [address] Shasha Delacruz [place] 01/25/2025 2:45 PM EDT [facility] Visit [facility] [address] [phone] Marci Gleason ARNP Stage 3b chronic kidney disease (HCC) (Primary Dx); Anemia in chronic kidney disease; Proteinuria, not otherwise specified 01/25/2025 Office Communication [facility] [address] [address] Marci Gleason ARNP from Last [...] pure alcohol) Intermittently Hot Amanda. Tea with Juniata only if sick Comments Unknown Sex and [...] Office Visit [facility] [address] [address] Marci Gleason ARNP [address] [address] Health Maintenance Due Date Last [...] , 09/24/2021, Additional history exists Insurance Medicaid [place] Medicaid [place] Care Teams Auto Repair Shop Manager Relationship Specialty Start Date End Date Maranda Serna MD [address] [place] [address] PCP - General Family Medicine 08/24/21
--- OUTSIDE RECORDS SUMMARY | 2025-03-22 16:28 | XMS_ITS | Encounter Summary ---
Author Organization [facility] Address [address] [place] [address] Care Team Providers Care Mushroom Cultivator Name Role Phone Viet Sánchez Unavailable [phone] Viet Sánchez Primary Care Provider [phone] Encounter Details Date Type Department Care Team (Late st Contact Info) Description 05/22/2020 Scanned Document [facility] [address] [phone] Deja Rico, [place] [address] Social History Tobacco Use Types Packs/Day Years [...] on filedocumented in this encounter Care Teams Mushroom Cultivator Relationship Specialty Start Date End Date Viet Sánchez PA [address] [place] [address] PCP - General 06/18/18 Viet Sánchez PA [address] [place] [address] 06/18/18 documented as of this encounter
--- OUTSIDE RECORDS SUMMARY | 2025-03-22 16:28 | XMS_ITS | Encounter Summary ---
Author Organization [facility] Address [address] [place] [address] Care Team Providers Care Ton Cylinder Inspector Name Role Phone Machelle Swann MD Primary Care Provider [phone] Reason for Visit * Reason Comments DM Foot Care Poorly controlled ty pe 2 diabetes mellitus with neuropathy ([facility] V24, [facility] V28)Arthritis of both midfeetClosed fracture of phalanx of right fifth toe with delayed healing, subsequent encounterCapsulitis of metatarsophalangeal (MTP) joint of left foot Encounter Details Date Type Department Care Team (Latest Contact Info) Description 03/17/2025 2:00 PM EDT Office Visit Orthopedic Surgery - [place] [address] [id number] Damien Centeno, DPM [address] [address] Controlled type 2 diabetes with neuropathy ([facility] V24, [facility] V28) (Primary Dx); Capsulitis of metatarsophalangeal (MTP) [...] mood Allergic rhinitis Anemia Arthritis Atrial fibrillation ([facility] V24, [facility] V28) Bilateral foot pain Chronic cough Chronic idiopathic constipation Chronic kidney disease, stage III (moderate) ([facility] V24, [facility] V28) Class 2 obesity Cobalamin deficiency Diabetic peripheral neuropathy associated with type 2 diabetes mellitus ([facility] V24, [facility] V28) Diabetic retinopathy ([facility] V24, [facility] V28) Dyslipidemia Elevated blood pressure reading in office without diagnosis of hypertension Gastroesophageal reflux disease Incontinence Irritable bowel syndrome Moderate persistent asthma with acute exacerbation Nephrolithiasis Nonrheumatic mitral valve regurgitation Nonrheumatic tricuspid valve regurgitation OAB (overactive bladder) Obstructive sleep apnea syndrome Osteopenia Pancreatic insufficiency Pulmonary arterial hypertension ([facility] V24, [facility] V28) Pulmonary hypertension ([facility] V24, [facility] V28) Right knee pain Seasonal allergies SOB (shortness of breath) Type 2 diabetes mellitus without complication ([facility] V24, [facility] V28) Ulcer of foot ([facility] V24, [facility] V28) Vitamin D deficiency SOCIAL HISTORY: Social [...] 42 mcg (0.06 %) nasal spray 1 [place] by Nasal route. lancets (TRUEplus Lancets) 33 [...] Sharp/dull sensation diminished, protective sensation diminished on [place]. Multipleperipheral neuropathies bilateral lower extremity ORTHOPEDIC: Good [...] PM EDT Office Visit Orthopedic Surgery - [place] [address] [address] Damien Centeno DPM [address] [address] documented as of this encounter Visit Diagnoses Diagnosis Controlled type 2 diabetes with neuropathy ([facility] V24, [facility] V28)- Primary Type II or unspecified type diabetes mellitus with neurological manifestations, not stated as uncontrolled Capsulitis of metatarsophalangeal (MTP) joint of right foot Pain in toes of both feet Dermatophytosis, nail Dermatophytosis of nail documented in this encounter Care Teams Ton Cylinder Inspector Relationship Specialty Start Date End Date Machelle Swann MD [address] [place] [address] [place] [address] PCP - General 10/15/12 documented as of this encounter
--- OUTSIDE RECORDS SUMMARY | 2025-03-22 16:28 | XMS_ITS | Encounter Summary ---
Author Organization [facility] [facility] Address [address] [facility] 7t [place] [address] Care Team Providers Care Edge Trimmer Mechanic Name Role Phone Maranda Serna MD Primary Care Provider [phone] Reason for Visit * Reason Onset Date Comments Appointment Request 05/28/2024 Encounter Details Date Type Department Care Team ([facility] st Contact Info) Description 05/28/2024 Telephone [facility] MEDICINE [address] [place], [place] [phone] Maranda Serna MD [address] [place], [place] [phone] Appointment Request Social History Tobacco Use Types [...] 3:30 PM EDT Office Visit [facility] MEDICINE [address] [place] [address] Maranda Serna MD [address] [place] [address] documented as of this encounter Visit Diagnoses Not on filedocumented in this encounter Additional Health Concerns Assessment Noted Time PHQ-9 Depression Total Score: 6 10/23/20 22 10:04 AM EST documented as of this encounter Care Teams Edge Trimmer Mechanic Relationship Specialty Start Date End Date Maranda Serna MD [address] [place] [address] PCP - General Family Medicine 08/01/21 documented as of this encounter
--- OUTSIDE RECORDS SUMMARY | 2025-03-22 16:28 | XMS_ITS | Encounter Summary ---
Author Organization [facility] Address [address] [place] [address] Care Team Providers Care Mortgage Clerk Name Role Phone Viet Sánchez Unavailable [phone] Viet Sánchez Primary Care Provider Encounter Details Date Type Department Care Team (Late st Contact Info) Description 02/02/2020 Prep for Surgery OPHTHALMOLOGY [address] [place] [address] Holland Hunt MD [address] [facility] [address] [facility] [place] [phone] Social History Tobacco Use Types Packs/Day Years [...] on filedocumented in this encounter Care Teams Mortgage Clerk Relationship Specialty Start Date End Date Viet Sánchez PA [address] [place] [address] PCP - General 06/18/18 Viet Sánchez PA [address] [place] [address] 06/18/18 documented as of this encounter
--- OUTSIDE RECORDS SUMMARY | 2025-03-22 16:28 | XMS_ITS | Clinical Summary ---
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 Diabetic peripheral [...] this topic Medical Devices Implanted Type Area Marina Manager Device Identifier Shelf Expiration Date Model / Serial / Lot [id number] Lens Iol 0 D +21.5 Brianda Mod L Bcnvx 13mm 6mm Posterior - [id number] Implanted:Qty: 1 on 01/27/2020 by Obinna Lorenzana MD at [facility], [place] [employer] [id number] / [id number] / Procedures Procedure Name Priority Date/Time Associated Diagnosis Comments COLON/EGD (CC) Routine 05/19/2020 COMPREHENSIVE METABOLIC PANEL STAT 12/24/2018 10:09 PM EST from Last 3 Months or Most Recently Relevant to Health Maintenance Results * COLON/EGD (CC) (05/19/2020) Deja Rico DO AMB ORDERABLE PERFORMABLE Fin al [...] LAB Anion [place] 13 7 - 17 [facility] Blood specimen (specimen) Blood specimen [...] 12:01 PM 01/27/2020 12:06 PM Care Teams Stamping Bench Die Maker Relationship Specialty Start Date End Date Viet Sánchez PA [address] [place] [address] PCP - General 06/18/18 Viet Sánchez PA [address] [place] [address] 06/18/18
--- OUTSIDE RECORDS SUMMARY | 2025-03-22 16:28 | XMS_ITS | Encounter Summary ---
Author Organization [employer] Address [address] [facility] 7[address] [place] [address] Care Team Providers Care Gleason Gear Generator Name Role Phone Maranda Serna MD Primary Care Provider [phone] Reason for Visit * Reason Onset Date Comments Durable Medical Equipment 05/26/2024 Encounter Details Date Type Department Care Team ([facility] st Contact Info) Description 05/26/2024 Telephone [facility] MEDICINE [address] [place], [place] [phone] Maranda Serna MD [address] [place], [place] [phone] Durable Medical Equipment Social History Tobacco Use [...] walker. Pt stated she was advised by core stripper jigneshow up with orthopedic and they prescribed a walker for the pt. Pt wants script send over to [facility] [address] If any questions you can contact pt at [phone]. documented in this encounter Plan of Treatment Upcoming Encounters Date Type Department Care Team ([facility] st Contact Info) Description 04/12/2025 3:30 PM EDT Office Visit [facility] MEDICINE [address] [place] [id number] Maranda Serna MD [address] [place] [address] documented as of this encounter Visit Diagnoses Not on filedocumented in this encounter Additional Health Concerns Assessment Noted Time PHQ-9 Depression Total Score: 6 10/23/20 22 10:04 AM EST documented as of this encounter Care Teams Gleason Gear Generator Relationship Specialty Start Date End Date Maranda Serna MD [address] [place] [address] PCP - General Family Medicine 08/01/21 documented as of this encounter
--- OUTSIDE RECORDS SUMMARY | 2025-03-22 16:28 | XMS_ITS | Clinical Summary ---
Author Organization [facility] Address [address] [place] [address] Care Team Providers Care Tombstone Polisher Name Role Phone ChapispriscillaViet Primary Care Provider [phone] Allergies Active Allergy Reactions Criticality Noted Date [...] age to complete this topic Care Teams Tombstone Polisher Relationship Specialty Start Date End Date Viet Sánchez [address] [place] [address] PCP - General Medical Services 06/19/18
[2025-03-22 17:57] LABS: MANUAL DIFF FLAG NO
[2025-03-22 18:11] LABS: Basophils Percent Auto 0.5 % (0-2); Eosinophils Absolute Auto 0.1 X10*3/uL (0.0-0.4); Eosinophils Percent Auto 1.2 % (0-4); Hematocrit 38.7 % (37.0-47.0); Hemoglobin 12.1 g/dl (12.0-16.0); Imm Gran Abs Auto 0.02 X10*3/uL (0.00-0.03); Imm Gran Pct Auto 0.3 % (0.0-0.4); Lymphocytes Percent Auto 29.7 % (20-40); Mean Corpuscular HGB Conc 31.3 g/dl (31.0-35.0); Mean Corpuscular Hemoglobin 27.9 pg (27.0-33.0); Mean Corpuscular Volume 89.4 fL (80.0-98.0); Mean Platelet Volume 9.6 fL (9.4-12.3); Monocytes Absolute Auto 0.5 X10*3/uL (0.1-1.2); Monocytes Percent Auto 6.9 % (2-11); Neutrophils Absolute Auto 4.1 x10*3/uL (2.0-8.3); Neutrophils Percent Auto 61.4 % (45-73); Platelet Count 282 X10*3/uL (160-400); Red Blood Count 4.33 X10*6/uL (4.20-5.50); Red Cell Distribution Width 14.7 % (11.0-16.0); White Blood Count 6.6 X10*3/uL (4.8-10.8)
[2025-03-22 18:31] LABS: Cholesterol 124 mg/dL (<200); HDL Cholesterol 53 mg/dL (>40); LDL Cholesterol Calculated 52 mg/dL (<100); Triglycerides 96 mg/dL (<150)
[2025-03-22 18:40] LABS: Creatinine Urine 52.25 mg/dL; Microalbum/Creatinine Ratio Ur 28.7 ug/mg cr (<30)
[2025-03-22 18:51] LABS: Alanine Aminotransferase 11 U/L (0-31); Albumin Level 4.1 g/dL (3.5-5.0); Alkaline Phosphatase 118 U/L (39-117); Anion Gap 12 (12-20); Aspartate Amino Transferase 27 U/L (5-31); Bilirubin Total 0.3 mg/dL (0.0-1.0); Blood Urea Nitrogen 33 mg/dL (9-16); Calcium 9.1 mg/dL (8.4-10.2); Carbon Dioxide 25 mmol/L (22-29); Chloride 106 mmol/L (96-108); Estimated Glomerular Filt Rate 26; Ferritin 134 ng/mL (10-250); Glucose Random 79 mg/dL (60-115); Iron 46 mcg/dL (30-160); Percent Iron Saturation 18 % (15-50); Potassium 4.3 mmol/L (3.3-5.1); Sodium 139 mmol/L (135-145); TSH reflex Free T4 1.89 uIU/mL (0.32-4.0); Total Iron Binding Capacity 254 mcg/dL (228-428); Total Protein 6.9 g/dL (6.5-8.0); Unsaturated Iron Binding 208 ug/dL
[2025-03-22 19:03] LABS: Folate 9.9 ng/mL (> or = 4.0); Vitamin B12 810 pg/mL (200-900)
[2025-03-22 19:10] LABS: Reflex LDLD? No
[2025-03-30 11:49] LABS: Class Alternaria alternata 0; Class Aspergillus fumigatus 0; Class Bermuda Grass 0; Class Birch 0; Class Cat Dander 0; Class Cladosporium herbarum 0; Class Cockroach 0; Class Common Ragweed 0; Class Cottonwood 0; Class Derm. pterony 0; Class Dermatophagoides farinae 0; Class Dog Dander 0; Class Elm 0; Class Maple Box Elder 0; Class Mountain Cedar 0; Class Mouse Urine Protein 0; Class Mugwort 0; Class Oak 0; Class Penicillium crysogenum 0; Class Rough Pigweed 0; Class Sheep Sorrel 0; Class Sycamore 0; Class Timothy Grass 0; Class Walnut Tree 0; Class White Ash 0; Class White Mulberry 0; D001 IgE D pteronyssinus <0.10 kU/L; D002 - IgE D farinae <0.10 kU/L; E001 - IgE Cat Dander <0.10 kU/L; E005 - IgE Dog Dander <0.10 kU/L; E072-IgE Mouse Urine <0.10 kU/L; G002 IgE Bermuda Grass <0.10 kU/L; G006 - IgE Timothy Grass <0.10 kU/L; I006-IgE Cockroach, German <0.10 kU/L; Immunoglobulin E 3 kU/L (<OR=114); M001 IgE Penicillium chrysogen <0.10 kU/L; M002 - IgE Cladosporium herbar <0.10 kU/L; M003 - IgE Aspergillus fumigat <0.10 kU/L; M006 - IgE Alternaria alternat <0.10 kU/L; T001 IgE Maple/Box Elder <0.10 kU/L; T003 IgE Common Silver Birch <0.10 kU/L; T006 - IgE Cedar, Mountain <0.10 kU/L; T007 - IgE Oak, White <0.10 kU/L; T008 IgE Elm, American <0.10 kU/L; T010 - IgE Walnut <0.10 kU/L; T011 - IgE Maple Leaf Sycamore <0.10 kU/L; T014 - IgE Cottonwood <0.10 kU/L; T015 - IgE Ash, White <0.10 kU/L; T070 - IgE White Mulberry <0.10 kU/L; W001 - IgE Ragweed, Short <0.10 kU/L; W006 - IgE Mugwort <0.10 kU/L; W014 IgE Pigweed, Common <0.10 kU/L; W018 IgE Sheep Sorrel <0.10 kU/L
== END 2025-03-22 15:45 | disposition home or self-care (01) ==
LOC: HO.WFDLDS 15:44
PROVIDERS: Referring Provider Nurse Practitioner Family; Visit Provider Family Medicine
DX: E11.65 Type 2 diabetes mellitus with hyperglycemia (principal); Z79.4 Long term (current) use of insulin; E78.5 Hyperlipidemia, unspecified; N18.32 Chronic kidney disease, stage 3b; D63.1 Anemia in chronic kidney disease; Z91.09 Other allergy status, other than to drugs and biological substances
CPT/HCPCS: 36415; 80053; 80061; 82043; 82570; 82607; 82728; 82746; 82785; 83540; 84443; 85025; 86003

== ENCOUNTER 2025-04-05 13:57 | Outpatient (AMB) | payer MEDICAID, SELFPAY ==
--- NOTE | 2025-04-05 14:10 | MHC.OFFVIS ---
Vital Signs 04/05/25 14:21 Height 5 ft 2 in Weight 199 lb BMI 36.4 BP 132/64 Blood Pressure Location Rt brachial Position Sitting Pulse 102 H Pulse Source Pulse Oximeter Pulse Oximetry (%) 96 Oxygen Delivery Method Room Air Intake Visit Reasons: 3 mo colo and endo prep Intake Note: ESTABLISHED PATIENT for GERD, IBS mgmt. Chief Complaint; C.O. difficulties with obtaining Omeprazole 40 mg tablets as the pharmacy is unable to fill the Rx per insurance denial. Pt has been purchasing OTC 20 mg Omeprazole as the 40 mg capsules contain pork (allergen). Pt also reports other mild sx but is not comfortable disclosing this information to the medical affairs specialist at this time. Rehabilitation Therapy Technician Required: No Accompanied by: Self / Same As Patient Allergies Pork/Porcine Containing Products [Pork/Porcine Product Derivatives] Allergy (Mild, Verified 04/05/25 14:10) SORES /ITCHING Seasonal Allergies Allergy (Mild, Verified 04/05/25 14:10) Itching nickel Adverse Reaction (Verified 04/05/25 14:10) Swelling and irritation HPI HPI 3 mo colo and endo prep: Details: LAST VISIT GERD (gastroesophageal reflux disease) Pancreatic insufficiency IBS (irritable bowel syndrome) Postprandial abdominal bloating Diarrhea Plan Plan is for patient to return in three months to discuss going for colonoscopy. Patient will need to be re-evaluated by Cardiology to be cleared to go for procedure. We will be adding upper endoscopy as patient has been on PPI for quite some time. Currently controlled symptoms with the 40 mg. We will try again 40 mg and see if insurance will cover. Patient will continue current diet regimen. Avoid dietary triggers and late night snacking. Staying upright for minimum 3 hours after meals discussed with patient. Patient is agreeable to current plan of care and verbalizes understanding of instructions. She was given the opportunity to ask questions and all questions answered. ? Thank you for allowing me to participate in her care Medications New omeprazole 40 mg PO DAILY 90 caps 3RF K21.9 TODAY'S VISIT Patient is here today for follow-up. Patient reports that she continues to have epigastric pain. Currently patient has 2 by omeprazole as capsules were given. Capsules contain pork and patient has pork allergy. Patient reports that she went to [place] and when she came back home she change her diet and currently is eating mostly meat and vegetables. Patient is not eating much of carbs, although she has craving for bread. Patient reports moving her bowels, however she does not feel like she empties them completely. Reports upper abdomen bloating. Patient reports to be feeling very full. Patient denies melena, hematochezia. Reports occasional dyspepsia without dysphagia or odynophagia. [facility] Medical History Pancreatic insufficiency Pancreatic insufficiency Tubular adenoma CKD (chronic kidney disease) Anemia GERD (gastroesophageal reflux disease) Renal cyst Bladder prolapse, female, acquired Hx of gastric ulcer IBS (irritable bowel syndrome) Kidney stones High cholesterol Diabetes Surgical History Hx of endoscopy Hx of colonoscopy History of partial hysterectomy Hx of breast reduction, elective Hx of cholecystectomy Family History Father Heart attack DM2 (diabetes mellitus, type 2) Mother DM2 (diabetes mellitus, type 2) COPD (chronic obstructive pulmonary disease) Other No pertinent family history Social History Household Members: Family Housing: House Do you presently have visiting nurse or other home services: No Unable to assess alcohol history related to: Unknown Alcohol intake: never Patient Tobacco Use Status: Never used Tobacco Second Hand Smoke Exposure: No service: No Review of Systems Const Denies weight gain and Denies weight loss ENT Reports no additional complaints, Denies dysphagia and Denies odynophagia Card Reports no additional complaints Resp Reports no additional complaints GI Reports abdominal pain, Denies belching, Denies melena, Reports bloating, Denies change in bowel habits, Reports constipation, Denies dysphagia, Denies excessive flatus, Denies dyspepsia, Reports heartburn, Denies diarrhea, Denies loose stools, Denies nausea, Denies odynophagia and Denies vomiting Reports no additional complaints Musc Reports no additional complaints Neuro Reports no additional complaints Psych Reports no additional complaints Endo Reports no additional complaints Physical Exam Vital Signs: Last Vital Signs Pulse 102 H 04/05/25 14:21 BP 132/64 04/05/25 14:21 Pulse Ox 96 04/05/25 14:21 Oxygen Delivery Method Room Air 04/05/25 14:21 BMI result Body Mass Index 36.4 Const General: healthy appearing and no acute distress Nutritional Appearance: obese Orientation/consciousness: patient oriented x3 Resp Effort & Inspection: normal respiratory effort, able to speak in complete sentences, no tracheal deviation and symmetric chest movement Auscultation: clear to auscultation bilaterally Cardio Rate: regular rate Heart sounds: S1 normal heart sound present and S2 normal heart sound present GI Inspection: Yes normal to inspection, No distended and Yes obesity Palpation (GI): Soft to palpation, not firm, nontender and No hepatosplenomegaly present Auscultation: normal bowel sounds General: Yes no CVA tenderness Back/Spine/Pelvis Back: no CVA tenderness Skin General skin exam: elasticity normal, turgor normal and dry skin Neuro General: patient oriented x3 Psych Appearance: grossly normal Mental Status: mental status grossly normal Assessment & Plan Assessment & Plan (1) GERD (gastroesophageal reflux disease): Code(s): K21.9 - Gastro-esophageal reflux disease without esophagitis Category: Medical Qualifiers: Esophagitis presence: esophagitis presence not specified Qualified Code(s): K21.9 - Gastro-esophageal reflux disease without esophagitis (2) Pancreatic insufficiency: Code(s): K86.89 - Other specified diseases of pancreas Category: Medical (3) IBS (irritable bowel syndrome): Code(s): K58.9 - Irritable bowel syndrome, unspecified Category: Medical Qualifiers: Irritable bowel syndrome type: with constipation Qualified Code(s): K58.1 - Irritable bowel syndrome with constipation (4) Postprandial abdominal bloating: Code(s): R14.0 - Abdominal distension (gaseous) (5) Diarrhea: Code(s): R19.7 - Diarrhea, unspecified Qualifiers: Diarrhea type: functional diarrhea Qualified Code(s): K59.1 - Functional diarrhea Plan Continue omeprazole daily. Avoid dietary triggers and late night snacking. Staying upright for minimum 3 hours after meals discussed with patient. Patient will be seeing her skin care instructor in May. Will ask for risk stratification as patient is due to go for colonoscopy and endoscopy. Discussed with patient low FODMAP diet. List of food recommended as well as list of food to avoid given to patient. Simethicone ordered for patient. Patient will return to the office end of May. Will send her for more allergy testing. Patient wants to be tested if she is truly allergic to pork. Patient is agreeable to this plan and verbalizes understanding of instructions. She was given the opportunity to ask questions and all questions answered. Thank you for allowing me to participate in her care Medications: New simethicone (Gas Relief (simethicone)) 125 mg PO BID-TID PRN 90 tabs 3RF abdominal distention omeprazole 40 mg (2 x 20 mg) PO DAILY 180 tabs 2RF K21.9 - Gastro-esophageal reflux disease without esophagitis Discontinued omeprazole Discontinued Reason: Doctor's Order 40 mg PO DAILY 90 caps 3RF K21.9 - Gastro-esophageal reflux disease without esophagitis Coding Level of Care Code Est Pt Level 4 (12430) Complex EM visit Add On G2211 Diagnoses Gastroesophageal reflux disease, unspecified whether esophagitis present K21.9 Esophagitis presence: esophagitis presence not specified Pancreatic insufficiency K86.89 Irritable bowel syndrome with constipation K58.1 Irritable bowel syndrome type: with constipation Postprandial abdominal bloating R14.0 Functional diarrhea K59.1 Diarrhea type: functional diarrhea Time Spent (min) 35 Comment 25 minutes spent with patient and additional 10 minutes spent reviewing her records
--- OUTSIDE RECORDS SUMMARY | 2025-04-05 14:13 | XMS_ITS | Encounter Summary ---
Author Organization [facility] Address [address] [place] [address] Care Team Providers Care Street Light Mechanic Name Role Phone Viet Sánchez Unavailable [phone] Viet Sánchez Primary Care Provider [phone] Encounter Details Date Type Department Care Team (Late st Contact Info) Description 11/09/2019 Prep for Surgery OPHTHALMOLOGY [address] [place] [address] Holland Hunt MD 85 [facility] [address] [facility] [place] [phone] Social History Tobacco Use Types Packs/Day Years [...] on filedocumented in this encounter Care Teams Street Light Mechanic Relationship Specialty Start Date End Date Viet Sánchez PA [address] [place] [address] PCP - General 06/18/18 Viet Sánchez PA [address] [place] [address] 06/18/18 documented as of this encounter
[2025-04-05 14:21] VITALS: BP 132/64; PULSE 102; O2SAT 96; BMI 36.4
== END 2025-04-05 14:44 | disposition home or self-care (01) ==
LOC: HO.HGI 13:58
PROVIDERS: PCP Family Medicine; Visit Provider Nurse Practitioner Family
DX: K21.9 Gastro-esophageal reflux disease without esophagitis (principal); K86.89 Other specified diseases of pancreas; K58.1 Irritable bowel syndrome with constipation; R14.0 Abdominal distension (gaseous); K59.1 Functional diarrhea
CPT/HCPCS: 99214

== ENCOUNTER 2025-04-05 13:57 | Outpatient (REF) | payer MEDICAID, SELFPAY ==
[2025-04-06 06:03] LABS: Class Almond 0; Class Brazil Nut 0; Class Cashew 0; Class Codfish 0; Class Cow's Milk 0; Class Egg white 0; Class Hazelnut 0; Class Macadamia Nut 0; Class Peanut 0; Class Salmon 0; Class Scallop 0; Class Sesame Seed 0; Class Shrimp 0; Class Soybean 0; Class Tuna 0; Class Walnut 0; Class Wheat 0; F001-IgE Egg White <0.10 kU/L; F002-IgE Milk <0.10 kU/L; F003-IgE Codfish <0.10 kU/L; F004-IgE Wheat <0.10 kU/L; F010-IgE Sesame Seed <0.10 kU/L; F013-IgE Peanut <0.10 kU/L; F014-IgE Soybean <0.10 kU/L; F017-IgE Hazelnut (Filbert) <0.10 kU/L; F018-IgE Brazil Nut <0.10 kU/L; F020-IgE Almond <0.10 kU/L; F024-IgE Shrimp <0.10 kU/L; F040-IgE Tuna <0.10 kU/L; F041 IgE Salmon <0.10 kU/L; F202-IgE Cashew Nut <0.10 kU/L; F256-IgE Walnut <0.10 kU/L; F338-IgE Scallop <0.10 kU/L; F345-IgE Macadmia Nut <0.10 kU/L
== END 2025-04-05 13:58 | disposition home or self-care (01) ==
LOC: HO.LAB 13:57
PROVIDERS: PCP Family Medicine; Visit Provider Nurse Practitioner Family
DX: K21.9 Gastro-esophageal reflux disease without esophagitis (principal); K86.89 Other specified diseases of pancreas; K58.1 Irritable bowel syndrome with constipation; R14.0 Abdominal distension (gaseous); K59.1 Functional diarrhea
CPT/HCPCS: 36415; 86003; 99212

== ENCOUNTER 2025-04-22 12:58 | Emergency (ER) | payer MEDICAID, SELFPAY ==
--- NOTE | ~2025-04-22 | XR_ITS ---
EXAMINATION: XR CHEST CLINICAL INFORMATION: cough, congestion COMPARISON: February 15, 2025. TECHNIQUE: 2 views of the chest were obtained. FINDINGS: No consolidation, pleural effusion or pneumothorax. No hyperinflation. Cardiomediastinal silhouette size is normal. Mild multilevel thoracic and upper lumbar spondylosis. Vascular clips right upper quadrant abdomen and likely prior laparoscopic cholecystectomy. XR/XR chest 2V IMPRESSION: No acute airspace disease. Stable chest. Electronically signed by: Brandon Mosqueda MD 04/22/2025 02:38 PM EDT
[2025-04-22 13:43] VITALS: BP 128/62; PULSE 94; RESP 18; TEMP 36.8; O2SAT 98; BMI 35.4
--- NOTE | 2025-04-22 13:43 | ED.URI ---
HPI - URI/Sore Throat General Chief Complaint: Upper Respiratory Symptoms Stated Complaint: resp issues Time Seen by Provider: 04/22/25 17:20 Source: patient and RN notes reviewed Mode of arrival: ambulatory Limitations: no limitations History of Present Illness ED Provider: Bella Puente PA-C HPI Narrative: This is a 64-year-old female, with a history of CAD, NSTEMI, GERD, who presents emergency department with concerns of sinus pain and pressure for the last week. She states that the sinus pressure and pain worsens when she is leaning forward. She also reports significant nasal congestion. She reports chest congestion, denies any Cough, chest pain or shortness for breath. She denies any known fevers, chills, palpitations, abdominal pain, nausea, vomiting or diarrhea. She has been using [id number] medications which has provided her without any relief. No other complaints or concerns at this time. MD elicited complaint: sore throat, rhinorrhea, nasal congestion and sinus pain Onset (ago): day(s) Consistency: constant Severity: moderate Able to tolerate fluids by mouth: Yes Exacerbating factors: leaning forward Relieving factors: nothing Associated symptoms: denies other symptoms Treatments prior to arrival: none Related Data Home Medications ?Medication ?Instructions ?Recorded ?Confirmed insulin degludec 100 unit/mL (3 35 unit subcut BEDTIME PRN BLOOD 07/20/21 02/09/25 mL) subcutaneous pen (Tresiba SUGARS >300 FlexTouch U-100 insulin) Held on 11/29/24. Instructions: Resume on 12/01/24. fluticasone propionate 50 1 spray intranasal DAILY PRN 12/18/21 02/09/25 mcg/actuation nasal Allergy Symptoms spray,suspension ascorbic acid (vitamin C) 1,000 mg 1,000 mg PO DAILY 05/07/23 02/09/25 tablet digestive enzymes 1 cap PO BID 05/07/23 02/09/25 omega 2-ubn-qly-fish oil 1,000 mg 1 cap PO DAILY 05/07/23 02/09/25 (120 mg-180 mg) capsule (Fish Oil) ammonium lactate 12 % lotion 1 appl topical DAILY 11/28/24 02/09/25 diphenhydramine 25 1 tab PO BEDTIME PRN Insomnia 11/28/24 02/09/25 mg-acetaminophen 500 mg tablet (Tylenol PM Extra Strength) prednisolone acetate 1 % eye 1 drp ophthalmic-Left QID 11/28/24 02/09/25 drops,suspension (Pred Forte) vitamin B complex 1 tab PO DAILY 11/28/24 02/09/25 pen needle, diabetic 31 gauge x #1,200 ea 01/03/25 02/09/25 5/16 (Easy Touch) aspirin 81 mg chewable tablet (St 81 mg PO DAILY 01/19/25 02/09/25 Vladimir Aspirin) insulin lispro 200 unit/mL (3 mL) 45 unit subcut USEASDIRECTD 01/19/25 02/09/25 subcutaneous pen blood sugar diagnostic (FreeStyle #10 ea 04/05/25 Lite Strips) dapagliflozin propanediol 5 mg 5 mg PO QAM 04/05/25 tablet (Farxiga) ferrous sulfate 325 mg (65 mg 325 mg PO Q OTHER DAY 04/05/25 iron) tablet,delayed release Previous Rx's ?Medication ?Instructions ?Recorded acetaminophen 500 mg tablet 500 mg PO Q6H PRN fever or pain 05/22/23 (Tylenol Extra Strength) #14 tabs incontinence pad, liner, disp #90 ea 06/23/23 levalbuterol HCl 1.25 mg/3 mL 1.25 mg (3 mL) inhalation Q4H PRN 11/29/24 solution for nebulization Shortness Of Breath/Wheezing #90 mL isosorbide mononitrate 30 mg 30 mg PO DAILY #60 tabs 12/22/24 tablet,extended release 24 hr atorvastatin 80 mg tablet 80 mg PO DAILY #90 tabs 01/19/25 blood pressure monitor #1 ea 01/19/25 fesoterodine 8 mg tablet,extended 8 mg PO DAILY #30 tabs 02/09/25 release 24 hr (Toviaz) fluticasone furoate 100 1 inh inhalation DAILY #60 ea 03/22/25 mcg-vilanterol 25 mcg/dose inhalation powder (Breo Ellipta) clopidogrel 75 mg tablet 75 mg PO DAILY #90 tabs 04/05/25 omeprazole 20 mg tablet,delayed 40 mg (2 x 20 mg) PO DAILY #180 04/05/25 release tabs simethicone 125 mg chewable tablet 125 mg PO BID-TID PRN abdominal 04/05/25 (Gas Relief (simethicone)) distention #90 tabs amoxicillin 875 mg-potassium 1 tab PO BID 10 days #20 tabs 04/22/25 clavulanate 125 mg tablet carvedilol 6.25 mg tablet 6.25 mg PO BID #180 tabs 04/25/25 Allergies Allergy/AdvReac Type Severity Reaction Status Date / Time Pork/Porcine Containing Allergy Mild SORES Verified 04/28/25 16:12 Products (Pork/Porcine /ITCHING Product Derivatives) Seasonal Allergies Allergy Mild Itching Verified 04/28/25 16:12 nickel AdvReac Swelling Verified 04/28/25 16:12 and irritation Review of Systems Review of Systems: Yes all other systems are reviewed and are negative Constitutional: Constitutional: Reports as per [facility] Past Medical History Medical History Pancreatic insufficiency Pancreatic insufficiency Tubular adenoma CKD (chronic kidney disease) Anemia GERD (gastroesophageal reflux disease) Renal cyst Bladder prolapse, female, acquired Hx of gastric ulcer IBS (irritable bowel syndrome) Kidney stones High cholesterol Diabetes Surgical History Hx of endoscopy Hx of colonoscopy History of partial hysterectomy Hx of breast reduction, elective Hx of cholecystectomy Family History Family History Father Heart attack DM2 (diabetes mellitus, type 2) Mother DM2 (diabetes mellitus, type 2) COPD (chronic obstructive pulmonary disease) Other No pertinent family history Social History Social History Household Members: Family Housing: House Do you presently have visiting nurse or other home services: No Unable to assess alcohol history related to: Unknown Alcohol intake: never Patient Tobacco Use Status: Never used Tobacco Second Hand Smoke Exposure: No service: No Physical Exam Vital Signs: Vital Signs: Last Vital Signs Temp 97.4 F 04/22/25 17:20 Pulse 78 04/22/25 17:20 Resp 16 04/22/25 17:20 BP 114/67 04/22/25 17:20 Pulse Ox 98 04/22/25 13:43 O2 Del Method Room Air 04/22/25 17:20 BMI result Body Mass Index 35.4 Const: General: cooperative, comfortable and no acute distress Orientation/consciousness: patient oriented x3 Limitations: no limitations HEENT: Other: patient with frontal, maxillary, and ethmoid sinus tenderness to palpation. Head: Yes normal to inspection, Yes normocephalic and Yes atraumatic Ears: hearing grossly normal bilaterally and TM's normal bilaterally General nose exam: Normal external nose present Face and sinus: Yes normal facial exam Mouth: Normal oral and palatal mucosa present, oropharynx normal and moist mucous membranes Throat: Yes posterior oropharynx normal Eyes: General: appearance normal, both eyes and all related structures Eyelids: Yes eyelids normal Conjunctivae: conjunctivae normal Sclerae: sclerae normal Pupils: Equal, round and reactive pupils present EOM: EOMs intact bilaterally Neck: Neck: Yes normal visual inspection, Yes full ROM and Yes no lymphadenopathy Lymphatic: no lymphadenopathy noted Chest: Chest palpation & inspection: normal inspection of the chest Resp: Effort & Inspection: normal respiratory effort and able to speak in complete sentences Auscultation: clear to auscultation bilaterally, no crackles, no rales, no rhonchi and no wheezes Cardio: Rate: regular rate Rhythm: regular rhythm Heart sounds: S1 normal heart sound present and S2 normal heart sound present GI: Inspection: Yes normal to inspection Skin: General skin exam: no rashes or lesions noted Trauma: no lacerations or abrasions Wounds: no wounds Neuro: General: patient oriented x3 and moves all extremities Cranial nerves: Yes Equal, round and reactive pupils present Extrem: General: Yes normal to inspection Right upper extremity: normal to inspection Left upper extremity: normal to inspection Right lower extremity: normal to inspection Left lower extremity: normal to inspection Medical Decision Making Medical Decision Making MDM Narrative: This is a 64-year-old female who presents emergency department with complaints of sinus pressure and pain for the last week. Patient reports that the pain worsens with bending over. Labs, EKG and chest x-ray were obtained. She has no leukocytosis, stable H&H, chemistry revealing elevated creatinine at 1.99, similar to previous. EKG normal sinus rhythm at a ventricular rate of 85 beats per minute, NM interval 136, QT QTC 372/442, no STEMI. Chest x-ray unremarkable. Symptoms consistent with acute sinusitis. Will treat with antibiotics. Patient was given strict return precautions. Given that she has no chest pain or shortness for breath, patient stable for discharge. Vital signs within normal limits. Differential Diagnosis Differential Diagnoses: The differential diagnosis associated with the presentation includes Sinusitis, pneumonia, URI, viral illness Lab Data [facility] Lab Attestation statement: I reviewed the patient's lab results. See MDM and course 04/22/25 14:18 04/22/25 14:18 Labs: Lab Results 04/22/25 Range/Units 14:18 WBC 6.3 (4.8-10.8) X10*3/uL RBC 4.11 L (4.20-5.50) X10*6/uL Hgb 11.6 L (12.0-16.0) g/dl Hct 36.8 L (37.0-47.0) % MCV 89.5 (80.0-98.0) fL MCH 28.2 (27.0-33.0) pg MCHC 31.5 (31.0-35.0) g/dl RDW 15.2 (11.0-16.0) % Plt Count 252 (160-400) X10*3/uL MPV 9.1 L (9.4-12.3) fL Immature Gran % (Auto) 0.5 H (0.0-0.4) % Neut % (Auto) 60.9 (45-73) % Lymph % (Auto) 30.1 (20-40) % Summit % (Auto) 6.7 (2-11) % Eos % (Auto) 1.0 (0-4) % Baso % (Auto) 0.8 (0-2) % Lymph # (Auto) 1.9 (1.2-4.9) X10*3/uL Summit # (Auto) 0.4 (0.1-1.2) X10*3/uL Eos # (Auto) 0.1 (0.0-0.4) X10*3/uL Baso # (Auto) 0.1 (0.0-0.2) X10*3/uL Abs Immat Gran (auto) 0.03 (0.00-0.03) X10*3/uL Absolute Neuts (auto) 3.8 (2.0-8.3) x10*3/uL Absolute Nucleated RBC 0.000 (0.0-0.012) X10*3/uL Nucleated RBC % (auto) 0.0 (0.0-0.2) /100WBC Sodium 140 (135-145) mmol/L Potassium 3.7 (3.3-5.1) mmol/L Chloride 111 H (96-108) mmol/L Carbon Dioxide 23 (22-29) mmol/L Anion Gap 10 L (12-20) BUN 42 H (9-16) mg/dL Creatinine 1.99 H (0.5-1.4) mg/dL Estim Creat Clear Calc 29.3 Estimated GFR 25 Random Glucose 64 (60-115) mg/dL Calcium 8.8 (8.4-10.2) mg/dL Magnesium 1.7 (1.6-2.6) mg/dL Total Bilirubin 0.3 (0.0-1.0) mg/dL Direct Bilirubin 0.1 (0.0-0.5) mg/dL AST 26 (5-31) U/L ALT 10 (0-31) U/L Alkaline Phosphatase 89 (39-117) U/L Troponin I High Sens 7.1 D (<3.5-17.0) ng/L Total Protein 6.8 (6.5-8.0) g/dL Albumin 4.2 (3.5-5.0) g/dL Influenza Type A (PCR) NEGATIVE (Negative) Influenza Type B (PCR) NEGATIVE (Negative) RSV RNA Qual (PCR) NEGATIVE (Negative) SARS-CoV-2 RNA (RT-PCR) NEGATIVE (Negative) Independent Interpretation I performed an independent interpretation of an: EKG Interpretation: See MDM Radiology Impression Discussion of test interpretation with radiology: I have reviewed the radiologist's reading. Radiologist Impression: FINDINGS: No consolidation, pleural effusion or pneumothorax. No hyperinflation. Cardiomediastinal silhouette size is normal. Mild multilevel thoracic and upper lumbar spondylosis. Vascular clips right upper quadrant abdomen and likely prior laparoscopic cholecystectomy. XR/XR chest 2V IMPRESSION: No acute airspace disease. Stable chest. Electronically signed by: Brandon Mosqueda MD 04/22/2025 02:38 PM EDT RP Dictated By: Brandon Reyes MD Discharge Plan Discharge Clinical Impression: Sinusitis Patient Disposition: Home, Self-Care Instructions: Sinusitis (ED) Additional Instructions: You were seen in the emergency department due to congestion, facial pain. You have a sinus infection, please take prescribed antibiotic as directed, finish the entire course even if your symptoms improve. Alternate between ibuprofen and or Tylenol as needed for pain and pressure. Please follow-up with your primary care physician. If any new or worsening symptoms occur, please seek emergent care. Prescriptions: New amoxicillin-pot clavulanate 875-125 mg tablet 1 tab PO BID 10 Days Qty: 20 0RF No Action (DME) incontinence pad, liner, disp Pad See Rx Instructions .Route Qty: 90 6RF Rx Instructions: As directed: change pads Q2-3 hours/PRN clopidogrel 75 mg tablet 75 mg PO DAILY Qty: 90 3RF carvedilol 6.25 mg tablet 6.25 mg PO BID Qty: 180 3RF Protocol: Hold for SBP/HR < HOLD for SBP < : 90 HOLD for HR < : 60 fluticasone propionate 50 mcg/actuation spray,suspension 1 spray intranasal DAILY PRN (Reason: Allergy Symptoms) acetaminophen [Tylenol Extra Strength] 500 mg tablet 500 mg PO Q6H PRN (Reason: fever or pain) Qty: 14 0RF ammonium lactate 12 % lotion 1 appl topical DAILY Rx Instructions: TO SOLES OF FEET EVERY NIGHT AND WEAR SOCKS TO BED prednisolone acetate [Pred Forte] 1 % drops,suspension 1 drp ophthalmic-Left QID vitamin B complex Tablet 1 tab PO DAILY diphenhydramine-acetaminophen [Tylenol PM Extra Strength] 25-500 mg Tablet 1 tab PO BEDTIME PRN (Reason: Insomnia) levalbuterol HCl 1.25 mg/3 mL Solution For Nebulization 1.25 mg inhalation Q4H PRN (Reason: Shortness Of Breath/Wheezing) Qty: 90 0RF Tresiba FlexTouch U-100 100 unit/mL (3 mL) insulin pen 35 unit subcut BEDTIME PRN (Reason: BLOOD SUGARS >300) omega 6-oin-qyf-fish oil [Fish Oil] 1,000 mg (120 mg-180 mg) capsule 1 cap PO DAILY ascorbic acid (vitamin C) 1,000 mg tablet 1,000 mg PO DAILY digestive enzymes Capsule 1 cap PO BID Rx Instructions: administer with food; swallow whole; do not crush/chew/dissolve/break/cut (DME) pen needle, diabetic [Easy Touch] 31 gauge x 5/16 needle See Rx Instructions .ROUTE TID Qty: 1200 Rx Instructions: As directed isosorbide mononitrate 30 mg tablet extended release 24 hr 30 mg PO DAILY Qty: 60 1RF aspirin [St Vladimir Aspirin] 81 mg tablet,chewable 81 mg PO DAILY insulin lispro 200 unit/mL (3 mL) insulin pen 45 unit subcut USEASDIRECTD atorvastatin 80 mg tablet 80 mg PO DAILY Qty: 90 3RF (DME) blood pressure monitor Kit See Rx Instructions .Route Qty: 1 0RF Rx Instructions: As directed fesoterodine [Toviaz] 8 mg tablet extended release 24 hr 8 mg PO DAILY Qty: 30 4RF fluticasone furoate-vilanterol [Breo Ellipta] 100-25 mcg/dose blister with device 1 inh inhalation DAILY Qty: 60 2RF dapagliflozin propanediol [Farxiga] 5 mg tablet 5 mg PO QAM (DME) FreeStyle Lite Strips Strip See Rx Instructions .ROUTE TID Qty: 10 Rx Instructions: As directed ferrous sulfate 325 mg (65 mg iron) tablet,delayed release (DR/EC) 325 mg PO Q OTHER DAY simethicone [Gas Relief (simethicone)] 125 mg tablet,chewable 125 mg PO BID-TID PRN (Reason: abdominal distention) Qty: 90 3RF omeprazole 20 mg tablet,delayed release (DR/EC) 40 mg PO DAILY Qty: 180 2RF Interventions: ED Discharge Assessment Last Done: 04/22/25 17:20 Discharge Date/Time: 04/22/25 17:23 Print Language: Faroese
--- NOTE | 2025-04-22 13:46 | ECG_ITS ---
Test Reason : chest pain Blood Pressure : */* mmHG Vent. Rate : 85 BPM Atrial Rate : 85 BPM P-R Int : 136 ms QRS Dur : 86 ms QT Int : 372 ms P-R-T Axes : -3 -2 42 degrees QTcB Int : 442 ms Normal sinus rhythm Cannot rule out Anterior infarct , age undetermined Abnormal ECG When compared with ECG of 27-Nov-2024 14:52, Nonspecific T wave abnormality no longer evident in Lateral leads Referred By: Bella Puente Electronically Signed By: ROXANNE CARRERA MD
[2025-04-22 14:29] LABS: MANUAL DIFF FLAG NO
[2025-04-22 14:33] LABS: Basophils Absolute Auto 0.1 X10*3/uL (0.0-0.2); Basophils Percent Auto 0.8 % (0-2); Eosinophils Absolute Auto 0.1 X10*3/uL (0.0-0.4); Hematocrit 36.8 % (37.0-47.0); Hemoglobin 11.6 g/dl (12.0-16.0); Imm Gran Abs Auto 0.03 X10*3/uL (0.00-0.03); Imm Gran Pct Auto 0.5 % (0.0-0.4); Lymphocytes Absolute Auto 1.9 X10*3/uL (1.2-4.9); Lymphocytes Percent Auto 30.1 % (20-40); Mean Corpuscular HGB Conc 31.5 g/dl (31.0-35.0); Mean Corpuscular Hemoglobin 28.2 pg (27.0-33.0); Mean Corpuscular Volume 89.5 fL (80.0-98.0); Mean Platelet Volume 9.1 fL (9.4-12.3); Monocytes Absolute Auto 0.4 X10*3/uL (0.1-1.2); Monocytes Percent Auto 6.7 % (2-11); Neutrophils Absolute Auto 3.8 x10*3/uL (2.0-8.3); Neutrophils Percent Auto 60.9 % (45-73); Platelet Count 252 X10*3/uL (160-400); Red Blood Count 4.11 X10*6/uL (4.20-5.50); Red Cell Distribution Width 15.2 % (11.0-16.0); White Blood Count 6.3 X10*3/uL (4.8-10.8)
[2025-04-22 14:44] LABS: Alanine Aminotransferase 10 U/L (0-31); Albumin Level 4.2 g/dL (3.5-5.0); Alkaline Phosphatase 89 U/L (39-117); Anion Gap 10 (12-20); Aspartate Amino Transferase 26 U/L (5-31); Bilirubin Direct 0.1 mg/dL (0.0-0.5); Bilirubin Total 0.3 mg/dL (0.0-1.0); Blood Urea Nitrogen 42 mg/dL (9-16); Calcium 8.8 mg/dL (8.4-10.2); Carbon Dioxide 23 mmol/L (22-29); Chloride 111 mmol/L (96-108); Creatinine Clr Calc Pharmacy 29.3; Estimated Glomerular Filt Rate 25; Glucose Random 64 mg/dL (60-115); Magnesium 1.7 mg/dL (1.6-2.6); Potassium 3.7 mmol/L (3.3-5.1); Sodium 140 mmol/L (135-145); Total Protein 6.8 g/dL (6.5-8.0)
[2025-04-22 14:51] LABS: Troponin-I High Sensitivity 7.1 ng/L (<3.5-17.0)
[2025-04-22 15:44] LABS: Influenza A PCR NEGATIVE (Negative); Influenza B PCR NEGATIVE (Negative); Resp Syncy Virus RNA Qual PCR NEGATIVE (Negative); SARS COV2 PCR INHOUSE NEGATIVE (Negative)
[2025-04-22 17:20] VITALS: BP 114/67; PULSE 78; RESP 16; TEMP 36.3
--- OUTSIDE RECORDS SUMMARY | 2025-04-22 17:23 | XMS_ITS | Encounter Summary ---
Author Organization [facility] Address [address] [place] [address] Care Team Providers Care Perfect Binder Feeder Offbearer Name Role Phone Viet Sánchez Unavailable [phone] Viet Sánchez Primary Care Provider [phone] Encounter Details Date Type Department Care Team (Late st Contact Info) Description 11/09/2019 Prep for Surgery OPHTHALMOLOGY [address] [place] [id number] Holland Hunt MD [address] [facility] [address] [facility] [place] [phone] Social History Tobacco Use Types Packs/Day Years [...] on filedocumented in this encounter Care Teams Perfect Binder Feeder Offbearer Relationship Specialty Start Date End Date Viet Sánchez PA [address] [place] [address] PCP - General 06/18/18 Viet Sánchez PA [address] [place] [id number] 06/18/18 documented as of this encounter
== END 2025-04-22 17:23 | disposition home or self-care (01) ==
LOC: HO.ED 17:21
PROVIDERS: Physician Assistant Medical; Emergency Provider Emergency Medicine Emergency Medical Services; PCP Family Medicine
DX: J32.9 Chronic sinusitis, unspecified (principal); R05.9 Cough, unspecified; J34.89 Other specified disorders of nose and nasal sinuses; R09.81 Nasal congestion; E11.22 Type 2 diabetes mellitus with diabetic chronic kidney disease; N18.9 Chronic kidney disease, unspecified; Z79.899 Other long term (current) drug therapy; Z03.818 Encounter for observation for suspected exposure to other biological agents ruled out
CPT/HCPCS: 0241U; 71046; 80048; 80076; 83735; 84484; 85025; 93005; 99283

== ENCOUNTER → 2025-04-22 13:46 | Outpatient (BNV) | payer MEDICAID, SELFPAY | PROVIDERS: PCP Family Medicine; Visit Provider Internal Medicine Cardiovascular Disease | DX: R94.31 Abnormal electrocardiogram [ECG] [EKG] (principal); R07.9 Chest pain, unspecified | CPT/HCPCS: 93010 ==

== ENCOUNTER → 2025-04-22 13:46 | Outpatient (BNV) | payer MEDICAID, SELFPAY | PROVIDERS: PCP Family Medicine; Visit Provider Radiology Diagnostic Radiology | DX: R05.9 Cough, unspecified (principal); R07.89 Other chest pain | CPT/HCPCS: 71046 ==

== ENCOUNTER 2025-04-28 16:11 | Outpatient (AMB) | payer MEDICAID, SELFPAY ==
--- NOTE | 2025-04-28 16:12 | MHC.OFFVIS ---
Intake Visit Reasons: follow up/ med review Intake Note: Pt presents to the office as a telehealth visit for a follow up/med review. Urology meds: Fesoterodine/Vit B Blood thinners:Aspirin/Clopidogrel Allergies Pork/Porcine Containing Products (Pork/Porcine Product Derivatives) Allergy (Mild, Verified 06/17/25 13:38) SORES /ITCHING Seasonal Allergies Allergy (Mild, Verified 06/17/25 13:38) Itching nickel Adverse Reaction (Verified 06/17/25 13:38) Swelling and irritation HPI Comments Details: 04/28/25-- History of Present Illness - The patient is a 64-year-old female presenting with overactive bladder symptoms. - Tovias 8 mg daily was prescribed in February, but caused urinary retention and dry throat, leading to discontinuation after one day. - The patient experienced significant discomfort with urination when she took the Toviaz - Currently manages symptoms with pads, experiencing persistent urinary leakage. Urinary Symptoms Review - Overactive bladder symptoms persist, managed with pads. - Toviaz 8 mg daily caused urinary retention and dry throat, leading to discontinuation after one day. - Patient experiences persistent urinary leakage, using multiple pads daily. 02/09/25--64-year-old female presenting with overactive bladder. Her symptoms of frequent urination and urgency have persisted, and she has a history of recurrent urinary tract infections, with the last instance treated in December. Current urinalysis is unremarkable. Despite trialing oxybutynin and Mirabegron, significant improvement was not noted. The patient has been using Farxiga alongside other diabetic medications, resulting in better overall symptom control. She experiences nocturia, voiding 4-5 times nightly, requiring pad usage for frequent and urgent urinary incontinence. During the discussion, the patient's symptoms of overactive bladder and recurrent UTIs were reviewed. I explained the potential benefits and risks of adjusting her medication regimen to improve bladder control. I advised considering the potential efficacy of trying another alternative. Overactive bladder treatment effectiveness, insurance coverage concerns, and patient preferences (tablet form devoid of certain fillers,) were discussed. The patient expressed understanding and agreement with the proposed plan to continue monitoring the efficacy of her current diabetic and heart medication adjustments, with particular attention to bladder symptoms. Urinary Symptoms Review - Frequent urination and urgency - Episodes of nocturia occurring 4-5 times nightly - Use of pads due to frequency and urgency incontinence - Previous treatments with oxybutynin and Mirabegron were ineffective - Ceased use of cranberry supplements 12/23/24-- LV -03/22/24--Ese is a 64-year-old female who presents today to the office for a follow up on lower urinary tract symptoms of recurrent urinary tract infections and overactive bladder. She is on Farxiga for diabetes. States she ran out of vaginal estrogen cream. I have discussed that I will discontinue estrace cream Failed Oxybutynin. Continues with urge incontinence. Incontinence pads p.r.n., Diabetes comorbidity. Trial of Myrbetriq 50 mg daily. UA-3+Glucose, Nitrite positve. Pt denies dysuria. I will wait for urine culture results before starting abx. 06/23/2023?She was last seen by me on 03/05/2023 for lower urinary tract infections and overactive bladder. At that time urinalysis noted nitrate positive urine. She was started on Augmentin. She was also started on Oxybutynin 5 mg daily. 03/05/23--Urine culture showed >100,000 mixed abdi. She states that she is wearing pads during the day. She states she is not using the oxybutynin. Evaluation today UA: leukocytes: trace; blood: negative; nitrate: negative. 03/05/2023?LV?09/20/22-- Ese is a 61-year-old female who is here for follow-up for overactive bladder symptoms and renal cyst.? Comorbidity diabetes.? The patient is a nonsmoker, having never smoked.? She denies constipation she denies dysuria. The? patient reports that she is drinking 3-4 8 oz bottles of water on a daily basis.? She had previously been trialed on oxybutynin but she does not want to take this medication or any other medication right now. Patient reports that she does have urinary incontinence she is wearing a pad on a daily basis she is up 3-6 times at night to void but does remain dry at night. On evaluation today-Urinalysis in the office today no signs of infection, Bladder scan PVR 100 mL. Discussed behaviorial modification, timed voiding every 2-3 hrs, kegel exercises.? I have discussed renal ultrasound results, 08/14/2022 small right renal cyst consistent with simple cyst. 03/05/23-- The patient states increased urinary incontinence. The patient wants to go back on oxybutynin. Complains of dysuria, denies gross hematuria, nocturia 2-3 x Co-morbidity: Insulin dependent diabetes. Evaluation today: Nitrite: positive, blood: negative, leukocytes: negative. Plan: oxybutynin 5 mg. Urine for culture was ordered. Augmentin 500 mg twice a day for 7 days. Follow-up after 3 months. [facility] Medical History Pancreatic insufficiency Pancreatic insufficiency Tubular adenoma CKD (chronic kidney disease) Anemia GERD (gastroesophageal reflux disease) Renal cyst Bladder prolapse, female, acquired Hx of gastric ulcer IBS (irritable bowel syndrome) Kidney stones High cholesterol Diabetes Surgical History Hx of endoscopy Hx of colonoscopy History of partial hysterectomy Hx of breast reduction, elective Hx of cholecystectomy Family History Father Heart attack DM2 (diabetes mellitus, type 2) Mother DM2 (diabetes mellitus, type 2) COPD (chronic obstructive pulmonary disease) Other No pertinent family history Social History Household Members: Family Housing: House Do you presently have visiting nurse or other home services: No Unable to assess alcohol history related to: Unknown Alcohol intake: never Patient Tobacco Use Status: Never used Tobacco Second Hand Smoke Exposure: No service: No Review of Systems Const All systems reviewed & are unremarkable except as noted in HPI and below Reports no additional complaints Eyes Reports no additional complaints ENT Reports no additional complaints Card Reports no additional complaints Resp Reports no additional complaints GI Reports no additional complaints Reports as per HPI Musc Reports no additional complaints Skin/Breast Reports system reviewed and no additional complaints, except as documented Neuro Reports no additional complaints Psych Reports no additional complaints Endo Reports no additional complaints Ethan/Lymph Reports no additional complaints Aller/Immun Reports no additional complaints Telehealth Telehealth Telehealth Platform: [facility] [place] Location of provider rendering services: practice address Location of patient: address on file Patient Identification confirmed using: Name, : Yes Telehealth method: voice only Patient verbally consented to treatment: Yes Patient verbally consented to billing insurance company: Yes Patient informed of any privacy concerns related to visit: Yes Minutes spent on Phone/Video with Pt.: 13 Assessment & Plan Assessment & Plan (1) OAB (overactive bladder): Code(s): N32.81 - Overactive bladder Category: Medical (2) Urinary incontinence: Code(s): R32 - Unspecified urinary incontinence Category: Medical (3) Diabetes: Code(s): E11.9 - Type 2 diabetes mellitus without complications Category: Medical (4) History of recurrent UTIs: Code(s): Z87.440 - Personal history of urinary (tract) infections Category: Medical Plan Plan - Discontinue Toviaz 8 mg daily due to adverse effects of urinary retention and dry throat. - Manage overactive bladder symptoms with pads as the patient prefers this method currently. - Schedule a follow-up appointment in one year to reassess symptoms and management. - Advise the patient to contact the office if symptoms worsen or if there are any concerns. Patient Instructions: The patient had an opportunity to ask questions regarding treatment plan. The patient expressed understanding and agreement with the above treatment plan. The patient is aware they should contact our office by phone for worsening of their current condition or the appearance of new symptoms. Compliance is encouraged with any medications and followup testing that is ordered. It is a privilege to be allowed the opportunity to participate in the urologic care of your patient. If you have any questions or concerns regarding treatment for the above conditions please do not hesitate to contact me. The office telephone contact is [phone]. This note is constructed in part using voice recognition software. While every effort has been made to ensure accuracy business process modeler errors may have been included. Yours sincerely, Alyce Rangel MD Scribe Plan - Not visible on output: Patient was informed and verbally consented to the use of an ambient scribe for clinic note documentation during this visit. Coding Level of Care Code Tele Est Pt Level 3 (34269) Diagnoses OAB (overactive bladder) N32.81 Urinary incontinence R32 Diabetes E11.9 History of recurrent UTIs Z87.440
--- OUTSIDE RECORDS SUMMARY | 2025-04-28 16:59 | XMS_ITS | Clinical Summary ---
Author Organization [employer] Address [address] [facility] [address] [place] [address] Care Team Providers Care Attending Anesthesiologist Name Role Phone Maranda Serna MD Primary Care Provider [phone] Allergies Active Allergy Reactions Criticality Noted Date [...] Do not crush, chew, or split. Active glucose blood (FREESTYLE LITE) test strip TEST BLOOD SUGAR 3 TIMES A DAY 100 each 11 Active predniSONE (Deltasone) 10 MG tablet Take [...] UNITS SUBCUTANEOUSLY EVERY DAY 30 mL 2 Active Easy Touch Pen Coarsegold 31G X 8 MM miscIndication s:Type 2 diabetes mellitus with hyperglycemia, with long-term current use of insulin ([facility]) USE DIRECTED THREE TIMES DAILY 200 each 11 Active aspirin 81 MG EC tablet Take 1 tablet (81 mg) by mouth Once per day. 90 tablet 3 025 2025 Active carvedilol (Coreg) 6.25 MG tablet Take 6.25 mg by mouth with breakfast and with evening meal. Active Plavix 75 MG tablet Take 75 [...] morning and at bedtime for constipation. Active ferrous sulfate 325 (65 Fe) MG EC tablet Take 1 tablet (325 mg) by mouth every other day. 45 tablet 3 Active cyanocobalamin (Vitamin B-12) 1000 MCG tablet Take 1 tablet (1,000 mcg) by mouth Once per day. 90 tablet 3 025 2025 Active OneTouch Delica Lancets 33G misc 1 each 3 times daily. 100 each 11 Active TRUEplus Lancets 33G miscIndication s:Type 2 diabetes mellitus with hyperglycemia, with long-term current use of insulin ([facility]) TEST BLOOD SUGAR THREE TIMES DAILY 100 each 11 Active simethicone (Mylicon) 125 MG chewable tablet Chew 1 tablet (125 mg) every 6 (six) hours if needed for flatulence. 100 tablet 3 Active Acetaminophen Extra Strength 500 MG tablet TAKE 1 TO 2 TABLETS BY MOUTH EVERY 8 HOURS NEEDED FOR PAIN OR FEVER 90 tablet 3 025 Active Acetaminophen Extra Strength 500 MG tablet TAKE 1 TO 2 TABLETS BY MOUTH EVERY 8 HOURS NEEDED FOR PAIN OR FEVER 90 tablet 3 024 2024 Discontinued(R eorder (will not trigger notification to Pharmacy)) TRUEplus Lancets 33G miscIndication s:Type 2 diabetes mellitus with hyperglycemia, with long-term current use of insulin ([facility]) TEST BLOOD SUGAR THREE TIMES DAILY 100 each 5 025 2024 Discontinued(R eorder (will not trigger notification to Pharmacy)) ferrous sulfate 325 (65 Fe) MG EC tablet Take 1 tablet by mouth every other day. 025 2024 Discontinued(R eorder (will not trigger notification to Pharmacy)) Active Problems Problem Noted Date Diagnosed Date Gas pain 04/22/2025 Assessment & Plan (04/22/2025 3:38 PM EDT): - Patient requests simethicone tablet form not capsule. Pulmonary nodule 02/07/2025 Coronary artery disease 01/16/2025 Assessment & Plan (04/12/2025 1:39 PM EDT): -Physician Relations Specialist: [facility] last seen in Dec 2024 -11/30/2024- Cardiac catheterization showed [id number] distal LAD disease with severe distal stenosis [...] statin therapy, ideally LDL less than 70. Assessment & Plan (01/21/2025 12:33 PM EDT): -Physician Relations Specialist: [facility], last seen in Dec 2024 -11/30/2024- Cardiac catheterization showed [id number] distal LAD disease with severe distal stenosis [...] and supportive care - follow up with nozzle operator as scheduled Assessment & Plan (07/23/2024 9:02 [...] Plan (01/17/2025 11:35 AM EDT): - seeing nozzle operator - continue judicious use of gabapentin 100 mg tid - she wants to switch to tablet. Only tablets available are 600 and 800 mg tablet - will have her take 1/4 of 600 mg tablet and take bid; or will check with pharmacist if she can open the capsule and take inside content Assessment & Plan (07/23/2024 5:36 AM EDT): - seeing nozzle operator - continue judicious use of gabapentin 100 mg tid - she wants to switch to tablet. Only tablets available are 600 and 800 mg tablet - will have her take 1/4 of 600 mg tablet and take bid; or will check with pharmacist if she can open the capsule and take inside content Assessment & Plan (01/04/2024 3:36 PM EST): - seeing nozzle operator - continue judicious use of gabapentin Assessment & Plan (10/03/2023 9:48 AM EST): - seeing nozzle operator - waiting for diabetic orthotics Adjustment disorder [...] diagnosis of hypertension 06/07/2023 Assessment & Plan (04/22/2025 3:19 PM EDT): -Goal BP < 130/80 per ACC/AHA guideline -BP at goal today -Continue working on lifestyle modifications -Recommended self-monitoring BP. -Pt has tried lisinopril for renal protection, not for HTN, in the past, but it was discontinued due to hyperkalemia and cough -Currently prescribed Dapagliflozin from produce runner Assessment & Plan (07/20/2024 1:50 PM EDT): -Goal BP < 140/90 per JNC-8 and < 130/80 per ACC/AHA guideline (Treatment threshold >= 140/90 ) -BP at goal today -Continue working on lifestyle modifications -Recommended self-monitoring BP. -Pt has tried lisinopril for renal protection, not for HTN, in the past, but it was discontinued due to hyperkalemia and cough -Currently prescribed Dapagliflozin from produce runner -Follow up in 3-6 mo, sooner if [...] hyperkalemia and cough -Currently prescribed Dapagliflozin from produce runner -Follow up in 3-6 mo, sooner if [...] Bilateral foot pain 06/07/2023 Assessment & Plan (04/22/2025 3:39 PM EDT): - left foot worse than right - multifactorial: Diabetic peripheral neuropathy; osteoarthritis; plantar fasciitis - Following with nozzle operator Assessment & Plan (06/07/2023 3:44 PM EDT): - left foot worse than right - multifactorial: Diabetic peripheral neuropathy; osteoarthritis; plantar fasciitis - referred to a nozzle operator; waiting for an appt - check the status of diabetic footwear Obesity 02/24/2023 Dyslipidemia 02/24/2023 Assessment & Plan (04/12/2025 4:47 PM EDT): - Last lipid profile on 03/22/25 Total cholesterol 124; Triglyceride 96; HDL 53; LDL 52; - Previously prescribed pravastatin - Currently prescribed atorvastatin, but pt was having a difficulty accepting the information that it is not nephrotoxic. - Continue working on lifestyle modifications. Assessment & Plan (01/21/2025 12:28 PM EDT): [...] use of insulin 02/11/2023 Assessment & Plan (04/12/2025 1:40 PM EDT): See plan for E11.65 Assessment & Plan (01/21/2025 12:31 PM EDT): [...] want to try any GLP-1 agonist. -Patient Interpreter Deaf prescribed Farxiga. Patient is taking this medication [...] want to try any GLP-1 agonist. -Patient Interpreter Deaf prescribed Farxiga. Patient is no longer taking [...] 3:42 PM EST): - followed by [facility] - no anatomical pancreatic abnormality on MRI in Dec 2022 - continue vegan / plant-based pancreatic enzyme Assessment & Plan (10/03/2023 9:49 AM EST): - followed by [facility] - no anatomical pancreatic abnormality on MRI in Dec 2022 - continue vegan / plant-based pancreatic enzyme Assessment & Plan (06/07/2023 3:30 PM EDT): - followed by [facility] - no anatomical pancreatic abnormality on MRI in Dec 2022 - continue vegan / plant-based pancreatic enzyme Assessment & Plan (02/24/2023 5:30 AM EDT): - followed by [facility] - no anatomical pancreatic abnormality on MRI in Dec 2022 - continue vegan / plant-based pancreatic enzyme Assessment & Plan (12/18/2022 6:12 PM EST): - followed by [facility] - continue vegan pancreatic enzyme Allergic rhinitis 10/12/2022 Anemia 10/12/2022 Assessment & Plan (04/22/2025 3:38 PM EDT): - likely due to chronic diseaes - Hx iron infusion - continue iron supplementation - Continue vitamin B12 Assessment & Plan (01/21/2025 12:29 PM EDT): [...] Plan (01/21/2025 12:33 PM EDT): -Followed by [facility], last seen 01/03/25 -EGD and Colonoscopy on 12/24/21; showed Tubular Adenoma, she was recommended to repeat in 3 years. - pt has been using castor oil - continue trying fiber-rich diet and increasing physical activity as tolerated. - continue Senakot as prescribed Assessment & Plan (07/20/2024 1:50 PM EDT): -Followed by [facility], last seen 08/06/22 -EGD and Colonoscopy on 12/24/21; showed Tubular Adenoma, she was recommended to repeat in 3 years. - pt has been using castor oil - continue trying fiber-rich diet and increasing physical activity as tolerated. - continue Senakot as prescribed Assessment & Plan (01/04/2024 3:38 PM EST): -Followed by [facility], last seen 08/06/22 -EGD and Colonoscopy on 12/24/21; showed Tubular Adenoma, she was recommended to repeat in 3 years. - pt has been using castor oil - continue trying fiber-rich diet and increasing physical activity as tolerated. - continue Senakot as prescribed Assessment & Plan (06/07/2023 3:33 PM EDT): -Followed by [facility], last seen 08/06/22 -EGD and Colonoscopy on 12/24/21; showed Tubular Adenoma, she was recommended to repeat in 3 years. - pt has been using castor oil - continue trying fiber-rich diet and increasing physical activity as tolerated. - continue Senakot as prescribed Assessment & Plan (12/18/2022 6:26 PM EST): -Followed by [facility], last seen 08/06/22 -EGD and Colonoscopy on 12/24/21; showed Tubular Adenoma, she was recommended to repeat in 3 years. - pt has been using castor oil - continue trying fiber-rich diet and increasing physical activity as tolerated. - continue Senakot as prescribed Chronic kidney disease, stage III (moderate) 01/2022 Assessment & Plan (04/12/2025 1:40 PM EDT): - Interpreter Deaf, Dr. Marci Hylton. Last seen on 01/25/25 - Metformin is discontinued, Dr. Tsai started her on Dapagliflozin (Farxiga) - Previously on Lisinopril, but was disccontinued due to cough / K - Avoid nephrotoxic drugs, including NSAID (no more Aleve) - Renal dose meds Assessment & Plan (01/21/2025 12:32 PM EDT): - Interpreter Deaf, Dr. Marci Hylton. Last seen on 01/25/25 - Metformin is discontinued, Dr. Tsai started her on Dapagliflozin (Farxiga) - Previously on Lisinopril, but was disccontinued due to cough / K - Avoid nephrotoxic drugs, including NSAID (no more Aleve) - Renal dose meds Assessment & Plan (07/23/2024 5:41 AM EDT): - Interpreter Deaf, Dr. Marci Hylton. - Metformin is discontinued, Dr. Tsai started bryn ib Dapagliflozin (Farxiga) - Previously on Lisinopril, but was disccontinued due to cough / K - Avoid nephrotoxic drugs, including NSAID (no more Aleve) - Renal dose meds Assessment & Plan (01/04/2024 3:45 PM EST): - Interpreter Deaf, Dr. 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 Tsai is prescribing Dapagliflozin (Farxiga) - Previously on Lisinopril, but was disccontinued due to cough / K - Avoid nephrotoxic drugs - Renal dose meds Assessment & Plan (10/03/2023 9:41 AM EST): - Interpreter Deaf, Dr. 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 Tsai rx Farxiga for DM management - Previously on Lisinopril, but was disccontinued due to cough / K - Avoid nephrotoxic drugs - Renal dose meds - Pt was advised that atorvastatin is not nephrotoxic and it will lower her ASCVD risk. Pt continues to decline statin therapy. Assessment & Plan (06/07/2023 3:34 PM EDT): - Interpreter Deaf, Dr. 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 [...] & Plan (02/24/2023 5:37 AM EDT): - Interpreter Deaf, Dr. Tsai - Lab: 12/24/22 BUN 28, [...] & Plan (12/18/2022 6:31 PM EST): - Interpreter Deaf, Dr. 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 Tsai rx Farxiga for DM management - Previously on Lisinopril, but was disccontinued due to cough / K - Avoid nephrotoxic drugs - Renal dose meds - Pt was advised that atorvastatin is not nephrotoxic and it will lower her ASCVD risk. Pt continues to decline statin therapy. Gastroesophageal reflux disease 10/12/2022 Assessment & Plan (04/22/2025 3:36 PM EDT): -s/p EGD 12/24/21 -followed by [facility] -refill famotidine as requested. Patient takes prn. -since patient is on clopidogrel, will check whether patient is taking omeprazole or pantoprazole. Assessment & Plan (01/04/2024 3:42 PM EST): -s/p EGD 12/24/21 -followed by [facility] -continue omeprazole 40mg daily -previously tried pantoprazole and lansoprazole; pt prefers omeprazole. -previously prescribed famotidine. Max dose for her renal function is 20 mg daily. Pt does not take it regularly. Assessment & Plan (10/03/2023 9:50 AM EST): -s/p EGD 12/24/21 -followed by [facility] -continue omeprazole 40mg daily -previously tried pantoprazole and lansoprazole; pt prefers omeprazole. -previously prescribed famotidine. Max dose for her renal function is 20 mg daily. Pt does not take it regularly. Assessment & Plan (06/07/2023 3:33 PM EDT): -s/p EGD 12/24/21 -followed by [facility] -continue omeprazole 40mg daily -previously tried pantoprazole and lansoprazole; pt prefers omeprazole. -previously prescribed famotidine. Max dose for her renal function is 20 mg daily. Pt does not take it regularly. Assessment & Plan (12/18/2022 6:28 PM EST): -s/p EGD 12/24/21 -followed by [facility] -continue prantoprazol 40mg daily -previously prescribed famotidine. Max dose for her renal function is 20 mg daily. Irritable bowel syndrome 10/12/2022 Assessment & Plan (07/20/2024 1:50 PM EDT): - followed by [facility] - continue current treatment plan per GI - low FODMAP diet - pt is prescribed simethicone, Sennakot, citrucel, but does not like taking it regularly Assessment & Plan (01/04/2024 3:42 PM EST): - followed by [facility] - continue current treatment plan per GI - low FODMAP diet - pt is prescribed simethicone, Sennakot, citrucel, but does not like taking it regularly Assessment & Plan (10/03/2023 9:49 AM EST): - followed by [facility] - continue current treatment plan per GI - low FODMAP diet - pt is prescribed simethicone, Sennakot, citrucel, but does not like taking it regularly Assessment & Plan (06/07/2023 3:32 PM EDT): - followed by [facility] - continue current treatment plan per GI - low FODMAP diet - pt is prescribed simethicone, Sennakot, citrucel, but does not like taking it regularly Assessment & Plan (12/18/2022 6:27 PM EST): - followed by [facility] - continue current treatment plan per [...] 2 diabetes mellitus 10/12/2022 Assessment & Plan (04/12/2025 4:46 PM EDT): - A1c 8.2% on 04/12/25, improved since 9.0% on 01/17/25 - Continue working on lifestyle modification - Improve adherence self-monitoring glucose and insulin administration - Continue Tresiba 24-28 units at bedtime, questionable adherence and understanding of insulin dosing - Continue Humalog 10 units qAC (she states prefer to take right after meal instead prior) - Prescribed dapagliflozin (Farxiga) from PCP and produce runner, questionable adherence - Discussed about CGM, which she does not want to use it at this time Treatment Hx -Pt has taken GLP-1 agonists and had significant side effects, mainly GI. Pt states she does not want to try any GLP-1 agonist. -Patient Interpreter Deaf prescribed Farxiga. Patient is taking this medication on and off -metformin was discontinued due to CKDIII and renal decline. -Eye exam: 04/09/23, more recent per pt -Foot exam: Jul 2024; diabetic peripheral neuropathy -Microalbumin Test: 03/22/25 UACR was 28.7 Hx microalbuminuria -Lipid profile: 03/22/25 Assessment & Plan (01/21/2025 12:30 PM EDT): [...] - Prescribed dapagliflozin (Farxiga) from PCP and produce runner, questionable adherence - Discussed about CGM, which she does not want to use it at this time Treatment Hx -Pt has taken GLP-1 agonists and had significant side effects, mainly GI. Pt states she does not want to try any GLP-1 agonist. -Patient Interpreter Deaf prescribed Farxiga. Patient is taking this medication [...] want to try any GLP-1 agonist. -Patient Interpreter Deaf prescribed Farxiga. Patient is taking this medication [...] want to try any GLP-1 agonist. -Patient Interpreter Deaf prescribed Farxiga. Patient is no longer taking [...] want to try any GLP-1 agonist. -Patient Interpreter Deaf prescribed Farxiga. Patient is no longer taking [...] want to try any GLP-1 agonist. -Patient Interpreter Deaf prescribed Farxiga. Patient is no longer taking [...] want to try any GLP-1 agonist. -Patient Interpreter Deaf prescribed Farxiga. Patient is no longer taking this medication due to side effect. -metformin was discontinued due to CKDIII and renal decline. -Eye exam: 03/29/22 -Foot exam: 10/07/22; Diabetic peripheral neuropathy. Microalbumin Test: 08/17/21 UACR 89 -Lipid profile: 08/17/21 TC 115; TG 162; HDL 46; LDL 45 on atorvastatin --Follow-up in 3 months or sooner for concerning symptoms Resolved Problems Problem Noted Date Diagnosed Date Resolved Date Viral upper respiratory infection 02/15/2025 04/22/2025 Assessment & Plan (02/15/2025 1:58 PM EDT): COVID and Flu negative. No evidence of respiratory distress. Symptoms mild. No evidence of dehydration. No LE edema, exam not consistent with fluid overload. Lungs clear. -Ordered CXR 02/15/25 -Supportive care advised. -Isolation recommendations discussed. Encounters Date Type Department Care Team Description 04/25/2025 Orders Only [facility] [address] [place] [id number] Maranda Serna MD 04/22/2025 Orders Only GENERIC EXTERNAL DATA DEPARTMENT Provider, Generic External Data 04/12/2025 3:30 PM EDT Office Visit [facility] [address] [place] [address] Maranda Serna MD Elevated blood pressure reading in office without diagnosis of hypertension (Primary Dx); Dyslipidemia; Coronary artery disease of [place] artery of [place] heart with stable angina pectoris ([facility]); Type 2 diabetes mellitus with stage 3b chronic kidney disease, with long-term current use of insulin ([facility]); Type 2 diabetes mellitus with hyperglycemia, with long-term current use of insulin ([facility]); Stage 3b chronic kidney disease ([facility]); Anemia due to stage 3b chronic kidney disease ([facility]); Thyroid nodule; Type 2 diabetes mellitus with diabetic polyneuropathy, with long-term current use of insulin ([facility]); Dietary counseling; Exercise counseling; Class 2 severe obesity due to excess calories with serious comorbidity and body mass index (BMI) of 35.0 to 35.9 in adult ([facility]); Gastroesophageal reflux disease, unspecified whether esophagitis present; Gas pain; Bilateral foot pain; Breast cancer screening by mammogram 04/12/2025 Travel 03/22/2025 Orders Only GENERIC EXTERNAL DATA DEPARTMENT Provider, Generic External Data 02/15/2025 2:00 PM EDT Office Visit [facility] [address] [address] Joleen Avery MD Viral upper respiratory infection 02/15/2025 Telephone [facility] [address] [id number] Joleen Avery MD 02/09/[address] [address] Maranda Serna MD 02/09/[address] [id number] Maranda Serna MD 02/07/2025 Orders Only [address] [address] Maranda Serna MD Pulmonary nodule (Primary Dx) 01/28/2025 Orders Only [address] [id number] Maranda Serna MD Type 2 diabetes mellitus with hyperglycemia, with long-term current use of insulin ([facility]) from Last 3 Months Immunizations Immunization Administration Dates Next Due Hep B, adult 09/23/2023,12/16/2022,07/08/2022 Influenza injectable quadriv alent preservative free 09/23/2023,09/24/2021 Influenza, IIV3, injectable 10/14/2022, Influenza, Split (incl. maria guadalupe [place] antigen) 07/24/2012,07/29/2011 Influenza, seasonal, injecta ble, preservative free 08/06/2024,01/01/2021 Influenza, seasonal, intrade rmal, preservative free 08/17/2013 Pfizer Covid-19 Vaccine 12+ 08/06/2024,1 ,03/05/2021,02/10 Pneumococcal Conjugate PCV 20 09/23/2023 Pneumococcal Polysaccharide PPSV23 01/01/2021 Tdap 07/08/2022,07/24/2012 Family History Medical History Relation Name Comments [...] Sign Reading Time Taken Comments Blood Pressure 122/78 04/12/2025 4:36 PM EDT Pulse 76 04/12/2025 3:55 PM EDT Temperature 36.2 C (97.1 F) 04/12/2025 3:55 PM EDT Respiratory Rate 15 04/12/2025 3:55 PM EDT Oxygen Saturation 98% 02/15/2025 1:23 PM EDT Inhaled Oxygen Concentration - - Weight 91.6 kg (202 lb) 04/12/2025 3:55 PM EDT Height 160 cm (5' 3 ) 04/12/2025 3:55 PM EDT Body Mass Index 35.78 04/12/2025 3:55 PM EDT Plan of Treatment Health Maintenance Due Date Last Done Comments CT Colonography 1960 FIT DNA/Cologuard 1960 FIT 1960 FOBT 1960 Sigmoidoscopy 1960 Disability Screening 1960 Eye Exam 1970 Hepatitis C Screening 1978 Pap Smear 1981 Cervical Cancer Screening 1990 HPV/Cotest 1990 Zoster Vaccines (1 of 2) 2010 RSV Patients and Patients Aged 60 years or older (1 - Risk 60-74 years 1-dose series) 2020 Colonoscopy 07/07/2025 07/07/2022 Colorectal Cancer Screening 07/07/2025 Diabetes: Hemoglobin A1C 07/13/2025 025, 01/17/2025, 07/19/2024, Additional history exists Diabetes: Foot Exam 07/19/2025 07/19/2024 Alcohol/Substance Use Screening 01/17/2026 01/17/2025 Depression Screening 01/17/2026 01/17/2025, 01/18/20 25 Mammogram 02/09/2026 02/10/2024, 08/21/2022 Lipid Panel 03/22/2026 03/22/2025, 02, 12/24/2022, Additional history exists SDOH Screening 04/12/2026 04/12/2025 Tobacco Screening 04/22/2026 04/22/2025 DTaP/Tdap/Td Vaccines (3 - Td or Tdap) 07/08/2032 07/08/2022, 07/24/2012 HIV Screening Completed 10/06/2018 Hepatitis B Vaccines Completed 09/23/2023, 12/16/2022, 07/08/2022 [...] Procedure Name Priority Date/Time Associated Diagnosis Comments HIGH SENSITIVITY TROPONIN I Routine 04/22/2025 2:18 PM EDT MAGNESIUM Routine 04/22/2025 2:18 PM EDT BASIC METABOLIC PANEL Routine 04/22/2025 2:18 PM EDT HEPATIC FUNCTION PANEL Routine 2:18 PM EDT CBC WITH AUTO DIFFERENTIAL Routine 04/22/2025 2:18 PM EDT SARS COV2/INFLUENZA A/B AND RSV RNA QL NAAT Routine 04/22/2025 2:18 PM EDT XR CHEST 2 VIEWS Routine 04/22/2025 1:34 PM EDT POCT GLYCOSYLATED HEMOGLOBIN (HGB A1C) Routine 04/12/2025 4:10 PM EDT Type 2 diabetes mellitus with stage 3b chronic kidney disease, with long-term current use of insulin (CMS/HCC) POCT GLUCOSE Routine 04/12/2025 3:56 PM EDT Type 2 diabetes mellitus with stage 3b chronic kidney disease, with long-term current use of insulin (CMS/HCC) ALBUMIN, RANDOM URINE W/CREATININE Routine 03/22/2025 3:56 PM EDT Type 2 diabetes mellitus with hyperglycemia, with long-term current use of insulin (CMS/HCC) Stage 3b chronic kidney disease (CMS/HCC) RESPIRATORY ALLERGY PROFILE REGION I Routine 03/22/2025 3:47 PM EDT IMMUNOGLOBULIN E Routine 03/22/2025 3:47 PM EDT VITAMIN B12/FOLATE, SERUM PANEL Routine 03/22/2025 3:47 PM EDT Anemia due to stage 3b chronic kidney disease (CMS/HCC) IRON AND TOTAL IRON BINDING CAPACITY Routine 03/22/2025 3:47 PM EDT Anemia due to stage 3b chronic kidney disease (CMS/HCC) FERRITIN Routine 03/22/2025 3:47 PM EDT Anemia due to stage 3b chronic kidney disease (CMS/HCC) CBC WITH AUTO DIFFERENTIAL Routine 03/22/2025 3:47 PM EDT Anemia due to stage 3b chronic kidney disease (CMS/HCC) TSH W/REFLEX TO FT4 Routine 03/22/2025 3 :47 PM EDT Anemia due to stage 3b chronic kidney disease (CMS/HCC) COMPREHENSIVE METABOLIC PANEL Routine 03/22/2025 3:47 PM EDT Type 2 diabetes mellitus with hyperglycemia, with long-term current use of insulin (CMS/HCC) Dyslipidemia LIPID PANEL WITH REFLEX TO DIRECT LDL Routine 03/22/2025 3:47 PM EDT Type 2 diabetes mellitus with hyperglycemia, with long-term current use of insulin (CMS/HCC) Dyslipidemia CT CHEST WO CONTRAST Routine 02/25/2025 11:15 [...] 1:46 PM EDT Viral upper respiratory infection BI MAMMOGRAM SCREENING TOMOSYNTHESIS BILATERAL Routine 02/10/2024 2:40 PM EDT HM COLONOSCOPY Routine 07/07/2022 from Last 3 Months or Most Recently Relevant to Health Maintenance Results * High Sensitivity Troponin I (04/22/2025 2:18 PM EDT) TROPONIN I HIGH SENSITIVITY 7.1 <3.5 - 17.0 ng/L [facility] Comment:The Castillo high sens itivity Troponin-I results should beused in conjunction with other diagnostic information suchas ECG, clinical observations and information, and patientsymptoms to aid in the diagnosis of AL. 04/22/2025 2:18 PM EDT 04/22/2025 2:27 PM EDT us Generic External Data Provider LAB BLOOD ORDERAB LES Final Result [facility] [address] [place] [phone] * SARS-CoV-2 RNA, Influenza A/B, and RSV RNA, Ql NAAT (04/22/2025 2:18 PM EDT) Pathologist [facility] [place] Influenza A PCR NEGATIVE Negative [facility] Influenza B PCR NEGATIVE Negative [facility] Resp Syncy Virus RNA Qual PCR NEGATIVE Negative [facility] SARS COV2 PCR NEGATIVE Negative [facility] Comment:All test results mus t [...] use by authorized laboratories.Testing performed on the [employer] GeneXpert utilizingreal-time RT-PCR.All SARS CoV2 and positive influenza A/B results arereported to [facility]. 04/22/2025 2:18 PM EDT 04/22/2025 2:27 PM EDT us Generic External Data Provider LAB MICROBIOLOGY - GENERAL ORDERABLES Final Result [facility] [address] [place] [phone] * (ABNORMAL) CBC auto differential (04/22/2025 2:18 PM EDT) Only the most recent of2 resultswithin the time period is included. Pathologist [facility] [place] White Blood Count 6.3 4.8 - 10.8 X10*3/uL [facility] Red Blood Count 4.11(L) 4.20 - 5.50 X10*6/uL [facility] Hemoglobin 11.6(L) 12.0 - 16.0 g/dl [facility] Hematocrit 36.8(L) 37.0 - 47.0 % [facility] Mean Corpuscular Volume 89.5 80.0 - 98.0 fL [facility] Mean Corpuscular Hemoglobin 28.2 27.0 - 33.0 pg [facility] Mean Corpuscular HGB Conc 31.5 31.0 - 35.0 g/dl [facility] Red Cell Distribution Width 15.2 11.0 - 16.0 % [facility] Platelet Count 252 160 - 400 X10*3/uL [facility] Mean Platelet Volume 9.1(L) 9.4 - 12.3 fL [facility] Neutrophils Percent Auto 60.9 45 - 73 % [facility] Imm Gran Pct Auto 0.5(H) 0.0 - 0.4 % [facility] Lymphocytes Percent Auto 30.1 20 - 40 % [facility] Monocytes Percent Auto 6.7 2 - 11 % [facility] Eosinophils Percent Auto 1.0 0 - 4 % [facility] Basophils Percent Auto 0.8 0 - 2 % [facility] NRBC Pct Auto 0.0 0.0 - 0.2 /100WBC [facility] Neutrophils Absolute Auto 3.8 2.0 - 8.3 x10*3/uL [facility] Imm Gran Abs Auto 0.03 0.00 - 0.03 X10*3/uL [facility] Lymphocytes Absolute Auto 1.9 1.2 - 4.9 X10*3/uL [facility] Monocytes Absolute Auto 0.4 0.1 - 1.2 X10*3/uL [facility] Eosinophils Absolute Auto 0.1 0.0 - 0.4 X10*3/uL [facility] Basophils Absolute Auto 0.1 0.0 - 0.2 X10*3/uL [facility] NRBC Abs Auto 0.000 0.0 - 0.012 X10*3/uL [facility] 04/22/2025 2:18 PM EDT 04/22/2025 2:27 PM EDT us Generic External Data Provider LAB BLOOD ORDERAB LES Final Result [facility] [address] [place] [phone] * Magnesium (04/22/2025 2:18 PM EDT) Pathologist [facility] [place] Magnesium 1.7 1.6 - 2.6 mg/dL [facility] 04/22/2025 2:18 PM EDT 04/22/2025 2:27 PM EDT Generic External Data Provider LAB BLOOD ORDERAB LES Final Result [facility] [address] [place] [phone] * Hepatic Function Panel (04/22/2025 2:18 PM EDT) [facility] Bilirubin, Total 0.3 0.0 - 1.0 mg/dL [facility] Bilirubin, Direct 0.1 0.0 - 0.5 mg/dL [facility] Aspartate Amino Transferase 26 5 - 31 U/L [facility] Alanine Aminotransferase 10 0 - 31 U/L [facility] Total Protein 6.8 6.5 - 8.0 g/dL [facility] Albumin Level 4.2 3.5 - 5.0 g/dL [facility] Alkaline Phosphatase 89 39 - 117 U/L [facility] 04/22/2025 2:18 PM EDT 04/22/2025 2:27 PM EDT Generic External Data Provider LAB BLOOD ORDERAB LES Final Result Performing Organization Address City/[facility]/ZIP Co de Phone Number [facility] [address] [place] [address] [phone] * (ABNORMAL) Basic Metabolic Panel (04/22/2025 2:18 PM EDT) Pathologist [facility] [place] Sodium 140 135 - 145 mmol/L [facility] Potassium 3.7 3.3 - 5.1 mmol/L [facility] Chloride 111(H) 96 - 108 mmol/L [facility] Carbon Dioxide 23 22 - 29 mmol/L [facility] Anion Gap 10(L) 12 - 20 [facility] Urea Nitrogen (BUN) 42(H) 9 - 16 mg/dL [facility] Creatinine, Serum 1.99(H) 0.5 - 1.4 mg/dL [facility] Creatinine Clr Calc Pharmacy 29.3 [facility] Comment:Provided height and weight: 157.48 cm,87.7 kg.eGFR (calculated from the MDRD study equation) and eCrCl(calculated from the Cockcroft-Gault equation) are based ondifferent parameters and may not yield comparable results.If eCrCl result is absurd, please check patient'sheight/weight. Estimated Glomerular Filt Rate 25 [facility] Comment:Chronic Kidney Disea se: Estimated GFR < 60 mL/min/1.90y2Uzquia Kidney Disease: Estimated GFR < 15 mL/min/1.73m2 Glucose 64 60 - 115 mg/dL [facility] Calcium 8.8 8.4 - 10.2 mg/dL [facility] 04/22/2025 2:18 PM EDT 04/22/2025 2:27 PM EDT us Generic External Data Provider LAB BLOOD ORDERAB LES Final Result [facility] [address] [place] [phone] * XR Chest 2 Views (04/22/2025 1:34 PM EDT) Only the most recent of2 resultswithin the time period is included. Anatomical Region Laterality Modality Chest Radiographic Mary ging 04/22/2025 1:34 PM EDT Narrative 04/22/2025 2:41 PM EDT [address] [address] XRay Report Signed Patient: Ese Mendoza MR#: [id number] 8 : 1960 Acct:[id number] Age/Sex: 64 / F ADM Date: 04/22/25 Loc: HO.ED Attending Dr: Ordering Physician: Bella Lomeli Date of Service: 04/22/25 Procedure(s): XR chest 2V Accession Number(s): [id number] cc: Bella Lomeli; Maranda Serna MD EXAMINATION: XR CHEST CLINICAL INFORMATION: cough, congestion COMPARISON: February 15, 2025. TECHNIQUE: 2 views of the chest were obtained. FINDINGS: No consolidation, pleural effusion or pneumothorax. No hyperinflation. Cardiomediastinal silhouette size is normal. Mild multilevel thoracic and upper lumbar spondylosis. Vascular clips right upper quadrant abdomen and likely prior laparoscopic cholecystectomy. XR/XR chest 2V IMPRESSION: No acute airspace disease. Stable chest. Electronically signed by: Brandon Mosqueda MD 04/22/2025 02:38 PM EDT RP Dictated By: Brandon Reyes MD Signed By: <Electronically signed by Brandon Gonzales MD in OV> 04/22/25 1438 DD/ 1334 TD/TT: 04/22/25 1431 Garment Presser: Procedure Note Donotuseinterpreter, Image - 04/22/[address] [address] XRay Report Signed Patient: Ese MendozaMR#: [id number] 8 : 1960Acct:[id number] Age/Sex: 64 / FADM Date: 04/22/25 Loc: HO.ED Attending Dr: Ordering Physician: Bella Lomeli Date of Service: 04/22/25 Procedure(s): XR chest 2V Accession Number(s): [id number] cc: Bella Lomeli; Maranda Serna MD EXAMINATION: XR CHEST CLINICAL INFORMATION: cough, congestion COMPARISON: February 15, 2025. TECHNIQUE: 2 views of the chest were obtained. FINDINGS: No consolidation, pleural effusion or pneumothorax. No hyperinflation. Cardiomediastinal silhouette size is normal. Mild multilevel thoracic and upper lumbar spondylosis. Vascular clips right upper quadrant abdomen and likely prior laparoscopic cholecystectomy. XR/XR chest 2V IMPRESSION: No acute airspace disease. Stable chest. Electronically signed by: Brandon Mosqueda MD 04/22/2025 02:38 PM EDT RP Dictated By: Brandon Reyes MD Signed By: <Electronically signed by Brandon Gonzales MDin OV> 04/22/25 1438 DD/ 1334 TD/TT: 04/22/25 1431 Garment Presser: [facility] External Provider IMG XR PROCEDURES Final Result * (ABNORMAL) POCT glycosylated hemoglobin (Hgb A1c) (04/12/2025 4:10 PM EDT) Hemoglobin A1C 8.2(A) 4.0 - 6.0 % QC Media Lot # [id number] Lot# Expiration Date Blood Capillary blood specimen / Unknown 04/12/2025 4:10 PM EDT Maranda Serna MD POINT OF CARE TEST ENTER/EDIT OR DERABLES Final Result * (ABNORMAL) POCT glucose manually resulted (04/12/2025 3:56 PM EDT) Glucose Blood, POC 215(A) 60 - 200 mg/dL QC Media Lot # [id number] Lot# Expiration Date Blood Capillary blood specimen / Unknown 04/12/2025 3:56 PM EDT Maranda Serna MD POINT OF CARE TEST ENTER/EDIT OR DERABLES Final Result * Albumin, Random Urine W/Creatinine (03/22/2025 3:56 PM EDT) Creatinine, Urine 52.25 mg/dL [facility] Microalbumin Urine 15.0 mg/L [facility] Microalbum Creatinine Ratio Ur 28.7 <30 ug/mg cr [facility] Comment:Albumin/Creatinine R atio Reference Ranges: Normal: < 30 ug/mg creatinine Microalbuminuria: 30 - 300 ug/mg creatinineClinical Albuminuria: > 300 ug/mg creatinine Urine 03/22/2025 3:56 PM EDT 03/22/2025 5:55 PM EDT Maranda Serna MD LAB URINE ORDERABLES Final Resul t Performing Organization Address [facility] Co de Phone Number [facility] [address] [place] [phone] * Vitamin B12 (Cobalamin) and Folate Panel, Serum (03/22/2025 3:47 PM EDT) Vitamin B12 810 200 - 900 pg/mL [facility] Comment:NORMAL 200-900 PG/ML INDETERMINATE 160-199 PG/ML DEFICIENT < 160 PG/ML Folate 9.9 > or = 4.0 ng/mL [facility] Comment:Reference Values:> o r = 4.0 ng/mL< 4.0 ng/mL suggests folate deficiency Methotrexate, aminopterin and folinic acid(leucovorin) are chemotherapeutic agents whose molecularstructures are similar to folate; therefore, the Architectfolate assay cannot be used for patients using these drugs. Blood 03/22/2025 3:47 PM EDT 03/22/2025 5:53 PM EDT us Maranda Serna MD LAB BLOOD ORDERABLES Final Resul t Performing Organization Address [facility] Co de Phone Number [facility] [address] [place] [phone] * TSH with Reflex to Free T4 (03/22/2025 3:47 PM EDT) TSH reflex Free T4 1.89 0.32 - 4.0 uIU/mL [facility] Blood 03/22/2025 3:47 PM EDT 03/22/2025 5:53 PM EDT us Maranda Serna MD LAB BLOOD ORDERABLES Final Resul t [facility] [address] [place] [phone] * Respiratory Allergy Profile Region I (03/22/2025 3:47 PM EDT) Mouse Urine Proteins (E72) IgE <0.10 kU/L [facility] Class 0 [facility] Cockroach (I6) IgE <0.10 kU/L [facility] Class 0 [facility] Dermatophagoides farinae (D2) IgE <0.10 kU/L [facility] Class 0 [facility] Cat Dander (E1) IgE <0.10 kU/L [facility] Class 0 [facility] Comment:THIS TEST WAS PERFOR MED AT:[facility] [place] [phone] CRONIN MD Dog Dander (E5) IgE <0.10 kU/L [facility] Class 0 [facility] Comment:THIS TEST WAS PERFOR MED AT:[facility] [place] [phone] CRONIN MD Asim Grass (G6) IgE <0.10 kU/L [facility] Class 0 [facility] Cladosporium herbarum (M2) IgE <0.10 kU/L [facility] Class 0 [facility] Aspergillus Fumigatis (M3) IgE <0.10 kU/L [facility] Class 0 [facility] Alternaria alternata (M6) IgE <0.10 kU/L [facility] Class 0 [facility] Comment:THIS TEST WAS PERFOR MED AT:[facility] [place] [phone] CRONIN MD [place] (t6) IgE <0.10 kU/L [facility] Class 0 [facility] Wy[place] (T7) IgE <0.10 kU/L [facility] Class 0 [facility] [place] (T10) IgE <0.10 kU/L [facility] Class 0 [facility] Vaughan (T11) IgE <0.10 kU/L [facility] Class 0 [facility] [place] (T14) IgE <0.10 kU/L [facility] Class 0 [facility] White Frankie (t15) IgE <0.10 kU/L [facility] Class 0 [facility] White [place] (T70) IgE <0.10 kU/L [facility] Class 0 [facility] Common Ragweed (Short) (W1) IgE <0.10 kU/L [facility] Class 0 [facility] Mugwort (w6) IgE <0.10 kU/L [facility] Class 0 [facility] Dermatophagoides pteronyssinus (D1) IgE <0.10 kU/L [facility] Class 0 [facility] Bermuda Grass (g2) IgE <0.10 kU/L [facility] Class 0 [facility] Penicillium Notatum (M1) IgE <0.10 kU/L [facility] Class 0 [facility] Birch (T3) IgE <0.10 kU/L [facility] Class 0 [facility] Elm (t8) IgE <0.10 kU/L [facility] Class 0 [facility] Maple ([place]) (T1) IgE <0.10 kU/L [facility] Class 0 [facility] Rough Pigweed (W14) IgE <0.10 kU/L [facility] Class 0 [facility] Sheep [place] (W18) IgE <0.10 kU/L [facility] Class 0 [facility] Allergen Comment See Below [facility] Comment: Specific Level of AllergenIGE Class kU/L Specific IGE Antibody ----- --------- 0 <0.10 Absent/Undetectable 0/1 0.10-0.34 Very Low Level 1 0.35-0.69 Low Level 2 0.70-3.49 Moderate Level 3 3.50-17.4 High Level 4 17.5-49.9 Very High Level 5 50-100 Very High Level 6 >100 Very High LevelThe clinical relevance of allergen results of0.10-0.34 kU/L are undetermined and intended forspecialist use.Allergens denoted with a include results usingone or more analyte specific reagents. In thosecases, the test was developed and its analyticalperformance characteristics have been determined by[employer]. It has not been cleared or approvedby the U.S. Food and Drug Administration. This assayhas been validated pursuant to the CLIA regulationsand is used for clinical purposes.THIS TEST WAS PERFORMED AT:[facility] [place] [phone] CRONIN MD 03/22/2025 3:47 PM EDT 03/22/2025 5:53 PM EDT us Generic External Data Provider LAB BLOOD ORDERAB LES Final Result [facility] [address] [place] [phone] * Lipid Panel with Reflex to Direct LDL (03/22/2025 3:47 PM EDT) Triglycerides 96 <150 mg/dL [facility] Comment:Desirable Triglyceri de: less than 150 mg/dLBorderline High Triglyceride 150-199 mg/dLHigh Triglyceride: 200-499 mg/dLVery High Triglyceride: greater than or equal to 5OO mg/dL Cholesterol 124 <200 mg/dL [facility] Comment:Desirable Cholestero l: less than 200 mg/dLBorderline High Cholesterol: 200-239 mg/dLHigh Cholesterol: greater than 239 mg/dL LDL Cholesterol Calculated 52 <100 mg/dL [facility] Comment:Desirable LDL: less than 100 mg/dLNear Optimal/Above Optimal LDL: 110- 129 mg/dLBorderline High LDL: 130-159 mg/dLHigh LDL: 160-189 mg/dLVery High LDL: greater than or equal to 190 mg/dL HDL Cholesterol 53 >40 mg/dL [facility] Comment:Desirable HDL: great er than 40 mg/dL Note: This HDL assay may give artificially low results in patients with liver disease. Blood 03/22/2025 3:47 PM EDT 03/22/2025 5:53 PM EDT us Maranda Serna MD LAB BLOOD ORDERABLES Final Resul t Performing Organization Address [facility] Co de Phone Number [facility] [address] [place] [phone] * Iron And Total Iron Binding Capacity (03/22/2025 3:47 PM EDT) Iron 46 30 - 160 mcg/dL [facility] Total Iron Binding Capacity 254 228 - 428 mcg/dL [facility] Percent Iron Saturation 18 15 - 50 % [facility] Unsaturated Iron Binding 208 ug/dL [facility] Blood Venous blood specimen / Unknown 03/22/2025 3:47 PM EDT 03/22/2025 5:53 PM EDT us Maranda Serna MD LAB BLOOD ORDERABLES Final Resul t Performing Organization Address [facility] Co de Phone Number [facility] [address] [place] [phone] * Immunoglobulin E (03/22/2025 3:47 PM EDT) Immunoglobulin E 3 <BF=619 kU/L [facility] 03/22/2025 3:47 PM EDT 03/22/2025 5:53 PM EDT us Generic External Data Provider LAB BLOOD ORDERAB LES Final Result Performing Organization Address City/[facility] Co de Phone Number [facility] [address] [place] [phone] * Ferritin (03/22/2025 3:47 PM EDT) Ferritin 134 10 - 250 ng/mL [facility] Blood Venous blood specimen / Unknown 03/22/2025 3:47 PM EDT 03/22/2025 5:53 PM EDT us Maranda Serna MD LAB BLOOD ORDERABLES Final Resul t [facility] [address] [place] [phone] * (ABNORMAL) Comprehensive Metabolic Panel (03/22/2025 3:47 PM EDT) Sodium 139 135 - 145 mmol/L [facility] Potassium 4.3 3.3 - 5.1 mmol/L [facility] Chloride 106 96 - 108 mmol/L [facility] Carbon Dioxide 25 22 - 29 mmol/L [facility] Anion Gap 12 12 - 20 [facility] Urea Nitrogen (BUN) 33(H) 9 - 16 mg/dL [facility] Creatinine, Serum 1.93(H) 0.5 - 1.4 mg/dL [facility] Estimated Glomerular Filt Rate 26 [facility] Comment:Chronic Kidney Disea se: Estimated GFR < 60 mL/min/1.12b9Qxwujv Kidney Disease: Estimated GFR < 15 mL/min/1.73m2 Glucose 79 60 - 115 mg/dL [facility] Calcium 9.1 8.4 - 10.2 mg/dL [facility] Bilirubin, Total 0.3 0.0 - 1.0 mg/dL [facility] Aspartate Amino Transferase 27 5 - 31 U/L [facility] Alanine Aminotransferase 11 0 - 31 U/L [facility] Total Protein 6.9 6.5 - 8.0 g/dL [facility] Albumin Level 4.1 3.5 - 5.0 g/dL [facility] Alkaline Phosphatase 118(H) 39 - 117 U/L [facility] Blood Venous blood specimen / Unknown 03/22/2025 3:47 PM EDT 03/22/2025 5:53 PM EDT us Maranda Serna MD LAB BLOOD ORDERABLES Final Resul t [facility] [address] [place] [phone] * CT Chest w/o Contrast (02/25/2025 11:15 AM EDT) Anatomical Region Laterality Modality Body, Chest Computed Tomogra phy 02/25/2025 11:1 5 AM EDT Narrative 02/25/2025 11:59 AM EDT [address] [address] [address] Scan Report Signed Patient: Ese Mendoza MR#: [id number] 8 : 1960 Acct:[id number] Age/Sex: 64 / F ADM Date: 02/25/25 Loc: HO.CT Attending Dr: Maranda Serna MD Ordering Physician: Maranda Serna MD Date of Service: 02/25/25 Procedure(s): CT chest wo IV con Accession Number(s): [id number] cc: Maranda Serna MD Report Number: [id number]: Total DLP = 183.00 mGy-cm EXAMINATION: CT [...] reconstruction technique DLP: 183 mGy centimeter. FINDINGS: PROCESS PLANNER: Large body habitus. Vascular clips right upper [...] Signed By: <Electronically signed by Brandon Gonzales MD in OV> 02/25/25 1155 DD/ 1115 TD/TT: 02/25/25 1124 Garment Presser: Procedure Note Donotuseinterpreter, Image - 02/25/[address] [address] [address] Scan Report Signed Patient: Ese MendozaMR#: [id number] 8 : 1960Acct:[id number] Age/Sex: 64 / FADM Date: 02/25/25 Loc: HO.CT Attending Dr: Maranda Serna MD Ordering Physician: Maranda Serna MD Date of Service: 02/25/25 Procedure(s): CT chest wo IV con Accession Number(s): [id number] cc: Maranda Serna MD Report Number: [id number]: Total DLP = 183.00 mGy-cm EXAMINATION: CT [...] reconstruction technique DLP: 183 mGy centimeter. FINDINGS: PROCESS PLANNER: Large body habitus. Vascular clips right upper [...] 02/25/25 1155 DD/ 1115 TD/TT: 02/25/25 1124 Garment Presser: Maranda Serna MD IMG CT PROCEDURES Edited Result - Final * ECG 12 lead (02/15/2025 2:15 PM EDT) Narrative Joleen Avery MD - 02/15/2025 2:15 PM EDT . EKG showed sinus tachycardia, rate 103 beats per minute, low-voltage QRS, possible inferior Infarct similar to ECG 01/19/25 Result [facility] Joleen Avery MD ECG ORDERABLES Final Resu lt * Influenza B (ID NOW Rapid Molecular) (02/15/2025 1:46 PM EDT) Influenza B Negative Negative, Indeterminate [facility] Swab 02/15/2025 1:46 PM EDT Result [facility] Joleen Avery MD POINT OF CARE TEST ENTER/E DIT ORDERABLES Final Result Performing Organization Address [facility]/ZIP Co de Phone Number [facility] [address] [place] [phone] * Influenza A (ID NOW Rapid Molecular) (02/15/2025 1:46 PM EDT) Influenza A Negative Negative, Indeterminate [facility] Swab 02/15/2025 1:46 PM EDT Result [facility] Joleen Avery MD POINT OF CARE TEST ENTER/E DIT ORDERABLES Final Result Performing Organization Address [facility] Co de Phone Number [facility] [address] [place] [phone] * POCT Rapid COVID Ag (02/15/2025 1:46 PM EDT) Rapid COVID Ag Negative Swab 02/15/2025 1:46 PM EDT Joleen Avery MD POINT OF CARE TEST ENTER/E DIT ORDERABLES Final Result * BI Mammogram Screening Tomosynthesis Bilateral (02/10/2024 2:40 PM EDT) Anatomical Region Laterality Modality Breast Bilateral Mammography 02/10/2024 2:40 PM EDT Narrative 02/22/2024 3:43 PM EDT [facility] [address] [place] [address] Mammography Report Signed Patient: Ese Mendoza MR#: [id number] 8 : 1960 Acct:[id number] Age/Sex: 63 / F ADM Date: 02/10/24 [facility]: Maranda Serna MD Ordering Physician: Maranda Serna MD Results: 1Negative Date of Service: 02/10/24 Follow Up: 1 Year From [facility] Mammogram Procedure(s): MM tomosynthesis screening BI Accession Number(s): [id number] cc: Maranda Serna MD EXAMINATION: MM SCREENING [...] present. These include several, bilateral, benign macrocalcifications bilingual sales representative of fat necrosis. MM/MM tomosynthesis [...] in OV> 02/22/24 1539 DD/ 1440 TD/TT: Garment Presser: Procedure Note Donotuseinterpreter, Image - 02/22/2024 [place] [facility] [address] [place] [address] Mammography Report Signed Patient: Ese MendozaMR#: [id number] 8 : 1960Acct:[id number] Age/Sex: 63 / FADM Date: 02/10/24 Loc: [place] Attending Dr: Maranda Serna MD Ordering Physician: Maranda Serna MDResults: 1Negative Date of Service: 02/10/24Follow Up: 1 Year From Orig inal Mammogram Procedure(s): MM tomosynthesis screening BI Accession Number(s): [id number] cc: Maranda Serna MD EXAMINATION: MM SCREENING [...] present. These include several, bilateral, benign macrocalcifications bilingual sales representative of fat necrosis. MM/MM tomosynthesis screening BI IMPRESSION: No mammographic evidence of malignancy. ASSESSMENT: BI-RADS BI-RADS 1 - Negative RECOMMENDATION: Routine annual mammography screening. 1 year F/U This examination should not preclude the clinical evaluation of a suspicious palpable abnormality. This patient's information was entered into a reminder system with a target due date for their next mammogram. Dictated By: Tianna Canrey MD Signed By: <Electronically signed by Tianna Carney MD in OV> 02/22/24 1539 DD/ 1440 TD/TT: Garment Presser: Maranda Serna MD IMG BI PROCEDURES Edited Result - Final * (ABNORMAL) Hm Colonoscopy (07/07/2022) Colonoscopy Abnormal(A ) Normal [facility] External Provider HEALTH MAINTENANCE Final Result from Last 3 Months or Most Recently Relevant to Health Maintenance Insurance [employer] C3 Care Teams Attending Anesthesiologist Relationship Specialty Start Date End Date Maranda Serna MD [address], [place] [address] PCP - General Family Medicine 08/01/21
== END 2025-04-28 16:45 | disposition home or self-care (01) ==
LOC: HO.HUSH 16:11
PROVIDERS: PCP Family Medicine; Visit Provider Urology
DX: N32.81 Overactive bladder (principal); R32 Unspecified urinary incontinence; E11.9 Type 2 diabetes mellitus without complications; Z87.440 Personal history of urinary (tract) infections
CPT/HCPCS: 99213

== ENCOUNTER → 2025-04-28 16:11 | Outpatient (BNVA) | payer MEDICAID, SELFPAY | PROVIDERS: PCP Family Medicine; Visit Provider Urology ==

== ENCOUNTER 2025-05-16 12:11 | Outpatient (REF) | payer MEDICAID, SELFPAY ==
--- OUTSIDE RECORDS SUMMARY | 2025-05-16 12:57 | XMS_ITS | Data Portability ---
Author Organization [place] - Clarence Sen MD, [facility] Address [address] [place] [phone] Assessment No assessment recorded. Plan of Treatment Reminders Order Date Submit Date Provider Last Modified By Organization Details Last Modified Time Details Appointments None recorded. Lab urinalysis, complete 2016 017 [email or web address] In-House Results, For Internal Use Only, Do Not Delete/merge, [id number] 7 11:38:12 urinalysis, complete 2016 017 [email or web address] In-House Results, For Internal Use Only, Do Not Delete/merge, [id number] 7 11:38:12 urinalysis, complete 2016 017 tmcclung In-House Results, For Internal Use Only, Do Not Delete/merge, [id number] 7 13:16:50 urinalysis, complete 2016 017 tmcclung In-House Results, For Internal Use Only, Do Not Delete/merge, [id number] 7 13:16:50 urinalysis, complete 2016 017 tmcclung In-House Results, For Internal Use Only, Do Not Delete/merge, [id number] 7 14:28:33 urinalysis, complete 2016 017 tmcclung In-House Results, For Internal Use Only, Do Not Delete/merge, [id number] 7 14:28:33 Referral None recorded. Procedures None recorded. Surgeries None recorded. Imaging US, retroperito neum 06/27/ 2017 06/27/2 017 tmcclung In-House Results, For Internal Use Only, Do Not Delete/merge, [id number] 7 14:28:33 Medication Orders None recorded. Patient TargetsNo targets recorded. Patient Instructions Encounter Date Encounter Id Patient Instructions Last Modified By Organization Details Last Modified Time 05/06/2017 [id number] Urinary Tract Infection (UTI) in Women: Care Instructions [email or web address] Not available 05/09/2017 14:28:33 bladder training : care instructions [email or web address] Not available 05/09/2017 14:28:33 kegel exercises: care instructions [email or web address] Not available 05/09/2017 14:28:33 Stress Incontinence: Care Instructions [email or web address] Not available 05/09/2017 14:28:33 Urge Incontinence: Care Instructions [email or web address] Not available 05/09/2017 14:28:33 07/30/2017 [id number] Urinary Tract Infection (UTI) in Women: Care Instructions [email or web address] Not available 08/04/2017 13:16:50 bladder training : care instructions [email or web address] Not available 08/04/2017 13:16:50 kegel exercises: care instructions [email or web address] Not available 08/04/2017 13:16:50 Stress Incontinence: Care Instructions [email or web address] Not available 08/04/2017 13:16:50 Urge Incontinence: Care Instructions [email or web address] Not available 08/04/2017 13:16:50 09/29/2017 [id number] Urinary Tract Infection (UTI) in Women: Care Instructions [email or web address] Not available 10/01/2017 12:43:07 Reason for Referral None Reported. Results Created Date Observation Date Name Description Value Unit Range Abnormal Flag Note LastModifiedBy Organization Detail LastModifiedTime 09/29/20 17 09/29/2017 urina lysis , compl ete Leukocytes Negati ve Not Available In-House Results For Internal Use Only, Do Not Delete/merge, [id number] 09/29/2017 18:46:44 09/29/20 17 09/29/2017 urina lysis , compl ete Nitrite negati ve Not Available In-House Results For Internal Use Only, Do Not Delete/merge, [id number] 09/29/2017 18:46:44 09/29/20 17 09/29/2017 urina lysis [...] 09/29/2017 urina lysis , compl ete Specific [place] 1.020 Not Available In-[place]ise se Results For [...] 09/29/2017 urina lysis , compl ete Specific [place] 1.025 Not Available In-[place] se Results For [...] 07/30/2017 urina lysis , compl ete Specific [place] 1.020 Not Available In-[place] se Results For [...] urina lysis , compl ete Leukocytes 15 Tara/ L Not Available In-House Results For Internal Use [...] 07/30/2017 urina lysis , compl ete Specific [place] 1.030 Not Available In-[place] se Results For [...] 05/06/2017 urina lysis , compl ete Specific [place] 1.015 Not Available In-[place] se Results For Internal Use Only, Do [...] urina lysis , compl ete Leukocytes 70 Tara/ L Not Available In-House Results For Internal Use [...] 05/06/2017 urina lysis , compl ete Specific [place] 1.025 Not Available In-[place] se Results For [...] routine FINAL REPORT abnormal Not Available [facility] ([facility]) [address] [place], [address], 05/08/2017 16:19:18 05/06/2005/08/2017 cultu re, urine result 1 KLEBSI MONICA PNEUMO NIAE abnormal GREAT ER THAN 100,0 00 COLON Y FORMI NG UNITS PER ML Not Available [facility] ([facility]) [address] [place], [address], 05/08/2017 16:19:18 05/06/20 17 05/08/2017 cultu re, [...] THOPR IM/ANDRADE LFA S Not Available [facility] ([facility]) [address] [place], [address], 05/08/2017 16:19:18 07/30/20 17 08/01/2017 cultu re, urine urine culture, routine FINAL REPORT abnormal Not Available [facility] ([facility]) [address] [place], [address], 08/01/2017 16:22:57 07/30/20 17 08/01/2017 cultu re, urine result 1 KLEBSI MONICA PNEUMO NIAE abnormal Great er than 100,0 00 colon y formi ng units per mL Not Available [facility] ([facility]) [address] [place], [address], 08/01/2017 16:22:57 07/30/20 17 08/01/2017 cultu re, urine antimicrobia l susceptibili ty COMMEN T S = Susce ptibl e; I = Inter media te; R = Resis tant P = Posit owody; N = Negat woody MICS are expre [...] thopr im/Andrade lfa S Not Available [facility] ([facility]) [address], [place], [address], 08/01/2017 16:22:57 05/15/20 17 05/15/2017 US, renal No observ ation record ed. [email or web address] [facility] [address] [facility], [place], [address], 07/30/2017 17:43:40 07/30/20 17 05/15/2017 US, retro perit oneum No observ ation record ed. [email or web address] Not Available 2016 11:33:32 07/30/20 17 05/15/2017 XR, kidne y + urete r + bladd er No observ ation record ed. [email or web address] Not Available 2016 11:33:32 Result Notes None recorded. Procedures Surgical History Date Name Laterality Status Provider Name and Address Organization Details Recorded Time 2 Other completed Ashley Sen MD 05/06/2017 16:45:14 Breast Surgery completed Ashley Sen MD 05/06/2017 16:45:34 Imaging Results None recorded. Procedure Notes None recorded. Medical Equipment None [...] index (BMI) Body weight Heart rate Systolic And Diastolic Provider Name and Address Organization Details Last Updated DateTime 05/06/2017 157.48 cm 37.5 kg/m2 33912.44 g 84 /min 98/41 mm[Hg] Ashley Sen MD 05/06/2017 15:17:41 Date Recorded Body height Body mass index (BMI) Body weight Heart rate Systolic And Diastolic Provider Name and Address Organization Details Last Updated DateTime 07/30/2017 160.02 cm 35.8 kg/m2 54041.66 g 87 /min 113/49 mm[Hg] Ashley Sen MD 07/30/2017 15:05:21 Date Recorded Body height Body mass index (BMI) Body weight Heart rate Systolic And Diastolic Provider Name and Address Organization Details Last Updated DateTime 09/29/2017 160.02 cm 35.8 kg/m2 67049.66 g 98 /min 107/51 mm[Hg] Ashley Sen MD 09/29/2017 17:42:23 Social History Question Answer Notes LastModified by Organizat ion Details LastModified Time Tobacco Smoking Status Never Smoker MARCOS Quijano Erik, MD 05/06/2017 14:41:57 What Is Your Level [...] Condition Response Other N Kidney Stones N Depression N Parkinson's N Stroke N Hepatitis A / B / C N HIV/AIDS N Kidney Disease N Heart Attack N Hypertension (High Blood Pressure) N Cancer (Please specify type) N High Cholesterol N Liver Disease N Epilepsy or Seizures N Dialysis N Diabetes (On Insulin?) Y / N N Prostate Cancer N Alzheimer's N Heart Disease N Gynecological HistoryNo gynecological history recorded. Obstetrics History GPAL:G 0 P 0 0 0 0 Past Encounters Encounter ID Performer Location Encounter Start Date Encounter Closed Date Diagnosis/Indication Diagnosis SNOMED-CT Code Diagnosis ICD10 Code Diagnosis Note [id number] MD ERIK Denis [place] [address] [place] [address] 05/06/2017 14:29:22 05/06/2017 17:13:49 Mixed urinary incontinence 487619666 N39.46 Incomplete emptying of urinary bladder 604596591 R39.14 Urinary tr act infectious disease 95393867 N39.0 [id number] MD ERIK Denis [place] [address] [place] [address] 07/30/2017 14:16:01 07/30/2017 17:45:30 Mixed urinary incontinence 736094103 N39.46 Cystitis 10252085 N30.90 Urinary tr act infectious disease 20261136 N39.0 [id number] MD ERIK Denis [address] [place] [address] 09/29/2017 17:41:48 09/30/2017 11:37:17 Urinary tract infectious disease 18504558 N39.0 Health Concerns Section Related Observation LastModified by Organization Detai ls LastModified Time None Recorded Concern Status LastModified by Organization Details LastModified Time None Recorded Advance Directives Directive None Recorded Payers Insurance Date Sequence Insurance Name Policy Number Policy Singer Covered Member ID Singer Member ID Guarantor Name 09/26/2017 1 [employer] [place]MEDICAID [place]PLACEMENT - H[place]) [id number] Ese Mendoza [id number] Ese Mendoza OBGyn Episode No OBEpisode recorded.
--- OUTSIDE RECORDS SUMMARY | 2025-05-16 12:57 | XMS_ITS | Clinical Summary ---
Author Organization [facility] Address [address] [place] [address] Care Team Providers Care Yarn Wrapper Name Role Phone ChapispriscillaViet Primary Care Provider [phone] Allergies Active Allergy Reactions Criticality Noted Date [...] years 1-dose series) 2020 Influenza Vaccine (#1) 2025 Hepatitis C Screening Completed 10/06/2018 Hepatitis B Vaccines Aged Out No long er eligible based on patient's age to complete this topic RSV Ped < 20 months Aged Out No longe r eligible based on patient's age to complete this topic Care Teams Yarn Wrapper Relationship Specialty Start Date End Date Viet Sánchez [address] [place] [address] PCP - General Medical Services 06/19/18
--- OUTSIDE RECORDS SUMMARY | 2025-05-16 12:57 | XMS_ITS | Encounter Summary ---
Author Organization [facility] Address [address] [address] Phone Care Team Providers Care Tipple Mechanic Name Role Phone Maranda Serna MD Primary Care Provider [phone] Encounter Details Date Type Department Care Team (Late st Contact Info) Description 01/25/2025 Office Communication [facility] [address] [place] [phone] Marci Gleason ARNP [address] [phone] Social History Tobacco Use Types Packs/Day Years Used Date Smoking Tobacco: Never Smokeless Tobacco: Never Alcohol Use Standard Drinks/Week Comments Yes 0 (1 standard drink = 0.6 oz pure alcohol) Intermittently Hot Amanda. Tea with [place] only if sick Comments Unknown Sex and Gender Information Value Date Recorded Sex Assigned at Not on file Legal Sex Female 5:18 PM EST Gender Identity Not on file Sexual Orientation Not on file documented as of this encounter Plan of Treatment Upcoming Encounters Date Type Department Care Team (Late st Contact Info) Description 06/10/2025 Orders Only [facility] [address] [address] Marci Glesaon ARNP [address] [address] Stage 3b chronic kidney disease (HCC); Anemia in chronic kidney disease; Proteinuria, not otherwise specified 07/26/2025 2:00 PM EDT Office Visit [facility] [address] [phone] Marci Gleason ARNP [address] [address] documented as of this encounter Visit Diagnoses Not on filedocumented in this encounter Care Teams Tipple Mechanic Relationship Specialty Start Date End Date Maranda Serna MD [address] [place] [address] PCP - General Family Medicine 08/24/21 documented as of this encounter
--- OUTSIDE RECORDS SUMMARY | 2025-05-16 12:57 | XMS_ITS | Encounter Summary ---
Author Organization [facility] Address [address] [place] [address] Care Team Providers Care Mechanical Engineering Officer Name Role Phone Viet Sánchez Unavailable [phone] Viet Sánchez Primary Care Provider Encounter Details Date Type Department Care Team (Late st Contact Info) Description 11/09/2019 Prep for Surgery OPHTHALMOLOGY [address] [place] [address] Holland Hunt MD [address] [facility] [address] [facility] [place] [phone] Social History Tobacco Use Types Packs/Day Years [...] on filedocumented in this encounter Care Teams Mechanical Engineering Officer Relationship Specialty Start Date End Date Viet Sánchez PA [address] [place] [address] PCP - General 06/18/18 Viet Sánchez PA [address] [place] [phone] 06/18/18 documented as of this encounter
--- OUTSIDE RECORDS SUMMARY | 2025-05-16 12:57 | XMS_ITS | Clinical Summary ---
Author Organization [facility] Address [address] [place] [address] Phone Care Team Providers Care Hood Maker Name Role Phone Machelle Swann MD Primary Care Provider [phone] Allergies Active Allergy Reactions Criticality Noted Date [...] 42 mcg (0.06 %) nasal spray 1 [place] by Nasal route. 09/24/20 Active omega-3 acid [...] osteoarthritis; plantar fasciitis - referred to a general road production manager; waiting for an appt - check the [...] hyperkalemia and cough -Currently prescribed Dapagliflozin from band straightener -Follow up in 3-6 mo, sooner if [...] Last Assessment & Plan: - followed by [facility] - no anatomical pancreatic abnormality on MRI in Dec 2022 - continue vegan / plant-based pancreatic enzyme Right knee pain 12/16/2022 Allergic rhinitis 10/12/2022 Anemia 10/12/2022 Overview (08/25/2024): Last Assessment & Plan: - likely due to chronic diseaes - Hx iron infusion - 12/24/22 Hgb 11.7, Hematocrit 35.7 Chronic idiopathic constipation 10/12/2022 Overview (08/25/2024): Last Assessment & Plan: -Followed by [facility], last seen 08/06/22 -EGD and Colonoscopy on 12/24/21; showed Tubular Adenoma, she was recommended to repeat in 3 years. - pt has been using castor oil - continue trying fiber-rich diet and increasing physical activity as tolerated. - continue Senakot as prescribed Chronic kidney disease, stag e III (moderate) ([facility] V24, [facility] V28) 10/12/2022 Overview (08/25/2024): Last Assessment & Plan: - Retail Account Specialist, Dr. 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 Tsai is prescribing Dapagliflozin (Farxiga) - Previously on Lisinopril, but was disccontinued due to cough / K - Avoid nephrotoxic drugs - Renal dose meds Gastroesophageal reflux disease 10/12/2022 Overview (08/25/2024): Last Assessment & Plan: -s/p EGD 12/24/21 -followed by [facility] -continue omeprazole 40mg daily -previously tried pantoprazole and lansoprazole; pt prefers omeprazole. -previously prescribed famotidine. Max dose for her renal function is 20 mg daily. Pt does not take it regularly. Irritable bowel syndrome 10/12/2022 Overview (08/25/2024): Last Assessment & Plan: - followed by [facility] - continue current treatment plan per GI - low FODMAP diet - pt is prescribed simethicone, Sennakot, citrucel, but does not like taking it regularly Osteopenia 10/12/2022 Atrial fibrillation ([facility] V24, [facility] V28) 0 12/25/2021 Cobalamin deficiency 12/25/2021 Diabetic retinopathy ([facility] V24, [facility] V28) 12/25/2021 Nephrolithiasis 12/25/2021 Overview (08/25/2024): Last Assessment & Plan: - seen by urologist, last visit on Vitamin D deficiency 12/25/2021 Diabetic peripheral neuropat hy associated with type 2 diabetes mellitus ([facility] V24, [facility] V28) 11/22/2019 Nonrheumatic mitral valve regurgitation 11/09/20 Nonrheumatic tricuspid valve regurgitation 11/09 Obstructive sleep apnea syndrome 11/09/2019 Overview (08/25/2024): Last Assessment & Plan: - Pt does not feel comfortable with CPAP SOB (shortness of breath) 11/09/2019 Type 2 diabetes mellitus wit hout complication ([facility] V24, [facility] V28) 11/09/2019 Arthritis 03/03/2019 Chronic cough 01/26/2019 Moderate persistent asthma with acute exacerbati on 01/26/2019 Pulmonary hypertension ([facility] V24, [facility] V28 ) 12/31/2018 Pulmonary arterial hypertension ([facility] V24, [facility] V28) 11/19/2018 Ulcer of foot ([facility] V24, [facility] V28) 011 Encounters Date Type Department Care Team Description 03/17/2025 2:00 PM EDT Office Visit Orthopedic Surgery - [address] [phone] Damien Centeno, VENESSA Controlled type 2 diabetes with neuropathy ([facility] V24, [facility] V28) (Primary Dx); Capsulitis of metatarsophalangeal (MTP) [...] PM EDT Office Visit Orthopedic Surgery - [place] [address] [address] Damien Centeno DPM [address] [address] Health Maintenance Due Date Last Done Comments Breast Cancer Screening 1960 Diabetes: Annual Foot Exam 1970 Diabetes: Annual Retina Eye Exam 1970 Zoster Vaccines (1 of 2) 1979 Cervical Cancer Screening: Pap Smear 1981 RSV Immunization Adult Patients (1 - Risk [...] 02/03/2025 08/06/2024, 08/31/2021, 03/05/2021, Additional history exists Influenza Vaccine (#1) 2025 , 09/23/2023, 10/14/2022, Additional history exists Diabetes: Blood Sugar Control [...] (6 to 64 Years) Completed 09/23/2023, 01/01/2021 HIB Vaccines Aged Out No longer eligi [...] * Annual BMP Blood Test (12/30/2023) Pathologist [facility] Annual BMP Blood Test Abstracted Result [facility] Provider HEALTH MAINTENANCE Final Result * Hemoglobin A1c (12/30/2023) [facility] Hemoglobin A1C 0.0 % Comment:no interpretation Blood Venous blood specimen / Unknown Result [facility] Provider LAB BLOOD ORDERABLES Machelle l Result * Lipid panel (12/30/2023) [facility] Triglycerides 0 mg/dL Comment:no interpretation Cholesterol 0 mg/dL Comment:no interpretation HDL 0 mg/dL Comment:no interpretation LDL Cholesterol 0 mg/dL Comment:no interpretation Blood Venous blood specimen / Unknown Result [facility] Provider LAB BLOOD ORDERABLES Machelle l Result * Urine Albumin Creatinine Ratio (07/24/2022) [facility] Urine Albumin Creatinine Ratio Abstracted Result [facility] Provider HEALTH MAINTENANCE Final Result from Last 3 Months or Most Recently Relevant to Health Maintenance Insurance [place] Care Teams Hood Maker Relationship Specialty Start Date End Date Machelle Swann MD [address] [place] [address] [place] [address] PCP - General 10/15/12
--- OUTSIDE RECORDS SUMMARY | 2025-05-16 12:57 | XMS_ITS | Clinical Summary ---
Author Organization [employer] Address [address] [facility] [address] [place] [address] Care Team Providers Care Evaporative Cooler Installer Name Role Phone Maranda Serna MD Primary Care Provider [phone] Allergies Active Allergy Reactions Criticality Noted Date [...] 30 mL 2 Active Easy Touch Pen [place] 31G X 8 MM miscIndication s:Type 2 diabetes mellitus with hyperglycemia, with long-term current use of insulin ([facility]) USE DIRECTED THREE TIMES DAILY 200 each [...] 1 each 3 times daily. 100 each Active TRUEplus Lancets 33G miscIndication s:Type 2 diabetes mellitus with hyperglycemia, with long-term current use of insulin ([facility]) TEST BLOOD SUGAR THREE TIMES DAILY 100 each 11 Active simethicone (Mylicon) 125 MG chewable tablet Chew 1 tablet (125 mg) every 6 (six) hours if needed for flatulence. 100 tablet 3 Active Acetaminophen Extra Strength 500 MG tablet TAKE 1 TO 2 TABLETS BY MOUTH EVERY 8 HOURS NEEDED FOR PAIN OR FEVER 90 tablet 3 025 Active glucose blood test stripIndicatio ns:Type 2 diabetes mellitus with hyperglycemia, with long-term current use of insulin ([facility]) OneTouch brand. TEST BLOOD SUGAR THREE TIMES DAILY 100 each 12 025 2025 Active Acetaminophen Extra Strength 500 MG tablet TAKE 1 TO 2 TABLETS BY MOUTH EVERY 8 HOURS NEEDED FOR PAIN OR FEVER 90 tablet 3 024 2024 Discontinued(R eosaharaer (will not trigger notification to Pharmacy)) Active Problems Problem Noted Date Diagnosed Date Gas pain 04/22/2025 Assessment & Plan (04/22/2025 3:38 PM EDT): - Patient requests simethicone tablet form not capsule. Pulmonary nodule 02/07/2025 Coronary artery disease 01/16/2025 Assessment & Plan (04/12/2025 1:39 PM EDT): [place] [facility] [facility] last seen in Dec 2024 -11/30/2024- Cardiac catheterization showed [id number] distal LAD disease with severe distal stenosis [...] Assessment & Plan (01/21/2025 12:33 PM EDT): -Etcher Hand[place] [facility] last seen in Dec 2024 -11/30/2024- Cardiac catheterization showed [id number] distal LAD disease with severe distal stenosis [...] and supportive care - follow up with ax survey worker as scheduled Assessment & Plan (07/23/2024 9:02 [...] Plan (01/17/2025 11:35 AM EDT): - seeing ax survey worker - continue judicious use of gabapentin 100 mg tid - she wants to switch to tablet. Only tablets available are 600 and 800 mg tablet - will have her take 1/4 of 600 mg tablet and take bid; or will check with pharmacist if she can open the capsule and take inside content Assessment & Plan (07/23/2024 5:36 AM EDT): - seeing ax survey worker - continue judicious use of gabapentin 100 mg tid - she wants to switch to tablet. Only tablets available are 600 and 800 mg tablet - will have her take 1/4 of 600 mg tablet and take bid; or will check with pharmacist if she can open the capsule and take inside content Assessment & Plan (01/04/2024 3:36 PM EST): - seeing ax survey worker - continue judicious use of gabapentin Assessment & Plan (10/03/2023 9:48 AM EST): - seeing ax survey worker - waiting for diabetic orthotics Adjustment disorder [...] hyperkalemia and cough -Currently prescribed Dapagliflozin from leather seasoner Assessment & Plan (07/20/2024 1:50 PM EDT): -Goal BP < 140/90 per JNC-8 and < 130/80 per ACC/AHA guideline (Treatment threshold >= 140/90 ) -BP at goal today -Continue working on lifestyle modifications -Recommended self-monitoring BP. -Pt has tried lisinopril for renal protection, not for HTN, in the past, but it was discontinued due to hyperkalemia and cough -Currently prescribed Dapagliflozin from leather seasoner -Follow up in 3-6 mo, sooner if [...] hyperkalemia and cough -Currently prescribed Dapagliflozin from leather seasoner -Follow up in 3-6 mo, sooner if [...] neuropathy; osteoarthritis; plantar fasciitis - Following with ax survey worker Assessment & Plan (06/07/2023 3:44 PM EDT): - left foot worse than right - multifactorial: Diabetic peripheral neuropathy; osteoarthritis; plantar fasciitis - referred to a ax survey worker; waiting for an appt - check the [...] want to try any GLP-1 agonist. -Patient Telecommunications Field Engineer prescribed Farxiga. Patient is taking this medication [...] want to try any GLP-1 agonist. -Patient Telecommunications Field Engineer prescribed Farxiga. Patient is no longer taking [...] (01/04/2024 3:42 PM EST): - followed by [facility] - no anatomical pancreatic abnormality on MRI in Dec 2022 - continue vegan / plant-based pancreatic enzyme Assessment & Plan (10/03/2023 9:49 AM EST): - followed by [facility] - no anatomical pancreatic abnormality on MRI in Dec 2022 - continue vegan / plant-based pancreatic enzyme Assessment & Plan (06/07/2023 3:30 PM EDT): - followed by [facility] - no anatomical pancreatic abnormality on MRI in Dec 2022 - continue vegan / plant-based pancreatic enzyme Assessment & Plan (02/24/2023 5:30 AM EDT): - followed by [facility] - no anatomical pancreatic abnormality on MRI in Dec 2022 - continue vegan / plant-based pancreatic enzyme Assessment & Plan (12/18/2022 6:12 PM EST): - followed by [facility] - continue vegan pancreatic enzyme Allergic [...] Plan (01/21/2025 12:33 PM EDT): -Followed by [facility], last seen 01/03/25 -EGD and Colonoscopy on 12/24/21; showed Tubular Adenoma, she was recommended to repeat in 3 years. - pt has been using castor oil - continue trying fiber-rich diet and increasing physical activity as tolerated. - continue Senakot as prescribed Assessment & Plan (07/20/2024 1:50 PM EDT): -Followed by [facility], last seen 08/06/22 -EGD and Colonoscopy on 12/24/21; showed Tubular Adenoma, she was recommended to repeat in 3 years. - pt has been using castor oil - continue trying fiber-rich diet and increasing physical activity as tolerated. - continue Senakot as prescribed Assessment & Plan (01/04/2024 3:38 PM EST): -Followed by [facility], last seen 08/06/22 -EGD and Colonoscopy on 12/24/21; showed Tubular Adenoma, she was recommended to repeat in 3 years. - pt has been using castor oil - continue trying fiber-rich diet and increasing physical activity as tolerated. - continue Senakot as prescribed Assessment & Plan (06/07/2023 3:33 PM EDT): -Followed by [facility], last seen 08/06/22 -EGD and Colonoscopy on 12/24/21; showed Tubular Adenoma, she was recommended to repeat in 3 years. - pt has been using castor oil - continue trying fiber-rich diet and increasing physical activity as tolerated. - continue Senakot as prescribed Assessment & Plan (12/18/2022 6:26 PM EST): -Followed by [facility], last seen 08/06/22 -EGD and Colonoscopy on 12/24/21; showed Tubular Adenoma, she was recommended to repeat in 3 years. - pt has been using castor oil - continue trying fiber-rich diet and increasing physical activity as tolerated. - continue Senakot as prescribed Chronic kidney disease, stage III (moderate) 01/2022 Assessment & Plan (04/12/2025 1:40 PM EDT): - Telecommunications Field Engineer, Dr. Marci Hylton. Last seen on 01/25/25 - Metformin is discontinued, Dr. Tsai started her on Dapagliflozin (Farxiga) - Previously on Lisinopril, but was disccontinued due to cough / K - Avoid nephrotoxic drugs, including NSAID (no more Aleve) - Renal dose meds Assessment & Plan (01/21/2025 12:32 PM EDT): - Telecommunications Field Engineer, Dr. Marci Hylton. Last seen on 01/25/25 - Metformin is discontinued, Dr. Tsai started her on Dapagliflozin (Farxiga) - Previously on Lisinopril, but was disccontinued due to cough / K - Avoid nephrotoxic drugs, including NSAID (no more Aleve) - Renal dose meds Assessment & Plan (07/23/2024 5:41 AM EDT): - Telecommunications Field Engineer, Dr. Marci Hylton. - Metformin is discontinued, Dr. Tsai started bryn ib Dapagliflozin (Farxiga) - Previously on Lisinopril, but was disccontinued due to cough / K - Avoid nephrotoxic drugs, including NSAID (no more Aleve) - Renal dose meds Assessment & Plan (01/04/2024 3:45 PM EST): - Telecommunications Field Engineer, Dr. 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 Tsai is prescribing Dapagliflozin (Farxiga) - Previously on Lisinopril, but was disccontinued due to cough / K - Avoid nephrotoxic drugs - Renal dose meds Assessment & Plan (10/03/2023 9:41 AM EST): - Telecommunications Field Engineer, Dr. 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 Tsai rx Farxiga for DM management - Previously on Lisinopril, but was disccontinued due to cough / K - Avoid nephrotoxic drugs - Renal dose meds - Pt was advised that atorvastatin is not nephrotoxic and it will lower her ASCVD risk. Pt continues to decline statin therapy. Assessment & Plan (06/07/2023 3:34 PM EDT): - Telecommunications Field Engineer, Dr. 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 [...] & Plan (02/24/2023 5:37 AM EDT): - Telecommunications Field Engineer, Dr. Tsai - Lab: 12/24/22 BUN 28, [...] & Plan (12/18/2022 6:31 PM EST): - Telecommunications Field Engineer, Dr. 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 [...] PM EDT): -s/p EGD 12/24/21 -followed by [facility] -refill famotidine as requested. Patient takes prn. -since patient is on clopidogrel, will check whether patient is taking omeprazole or pantoprazole. Assessment & Plan (01/04/2024 3:42 PM EST): -s/p EGD 12/24/21 -followed by [facility] -continue omeprazole 40mg daily -previously tried pantoprazole and lansoprazole; pt prefers omeprazole. -previously prescribed famotidine. Max dose for her renal function is 20 mg daily. Pt does not take it regularly. Assessment & Plan (10/03/2023 9:50 AM EST): -s/p EGD 12/24/21 -followed by [facility] -continue omeprazole 40mg daily -previously tried pantoprazole and lansoprazole; pt prefers omeprazole. -previously prescribed famotidine. Max dose for her renal function is 20 mg daily. Pt does not take it regularly. Assessment & Plan (06/07/2023 3:33 PM EDT): -s/p EGD 12/24/21 -followed by [facility] -continue omeprazole 40mg daily -previously tried pantoprazole and lansoprazole; pt prefers omeprazole. -previously prescribed famotidine. Max dose for her renal function is 20 mg daily. Pt does not take it regularly. Assessment & Plan (12/18/2022 6:28 PM EST): -s/p EGD 12/24/21 -followed by [facility] -continue prantoprazol 40mg daily -previously prescribed famotidine. Max dose for her renal function is 20 mg daily. Irritable bowel syndrome 10/12/2022 Assessment & Plan (07/20/2024 1:50 PM EDT): - followed by [facility] - continue current treatment plan per GI - low FODMAP diet - pt is prescribed simethicone, Sennakot, citrucel, but does not like taking it regularly Assessment & Plan (01/04/2024 3:42 PM EST): - followed by [facility] - continue current treatment plan per GI - low FODMAP diet - pt is prescribed simethicone, Sennakot, citrucel, but does not like taking it regularly Assessment & Plan (10/03/2023 9:49 AM EST): - followed by [facility] - continue current treatment plan per GI - low FODMAP diet - pt is prescribed simethicone, Sennakot, citrucel, but does not like taking it regularly Assessment & Plan (06/07/2023 3:32 PM EDT): - followed by [facility] - continue current treatment plan per GI - low FODMAP diet - pt is prescribed simethicone, Sennakot, citrucel, but does not like taking it regularly Assessment & Plan (12/18/2022 6:27 PM EST): - followed by [facility] - continue current treatment plan per [...] - Prescribed dapagliflozin (Farxiga) from PCP and leather seasoner, questionable adherence - Discussed about CGM, which she does not want to use it at this time Treatment Hx -Pt has taken GLP-1 agonists and had significant side effects, mainly GI. Pt states she does not want to try any GLP-1 agonist. -Patient Telecommunications Field Engineer prescribed Farxiga. Patient is taking this medication [...] - Prescribed dapagliflozin (Farxiga) from PCP and leather seasoner, questionable adherence - Discussed about CGM, which she does not want to use it at this time Treatment Hx -Pt has taken GLP-1 agonists and had significant side effects, mainly GI. Pt states she does not want to try any GLP-1 agonist. -Patient Telecommunications Field Engineer prescribed Farxiga. Patient is taking this medication [...] want to try any GLP-1 agonist. -Patient Telecommunications Field Engineer prescribed Farxiga. Patient is taking this medication [...] want to try any GLP-1 agonist. -Patient Telecommunications Field Engineer prescribed Farxiga. Patient is no longer taking [...] want to try any GLP-1 agonist. -Patient Telecommunications Field Engineer prescribed Farxiga. Patient is no longer taking [...] want to try any GLP-1 agonist. -Patient Telecommunications Field Engineer prescribed Farxiga. Patient is no longer taking [...] want to try any GLP-1 agonist. -Patient Telecommunications Field Engineer prescribed Farxiga. Patient is no longer taking [...] Encounters Date Type Department Care Team Description 05/04/2025 Refill [facility] [address] [place] [address] Maranda Serna MD Type 2 diabetes mellitus with hyperglycemia, with long-term current use of insulin ([facility]) 04/25/2025 Orders Only [facility] [address] [place] [address] Maranda Serna MD 04/22/2025 Orders Only GENERIC EXTERNAL DATA DEPARTMENT Provider, Generic External Data 04/12/2025 3:30 PM EDT Office Visit [facility] [address] [place] [address] Maranda Serna MD Elevated blood pressure reading in office without diagnosis of hypertension (Primary Dx); Dyslipidemia; Coronary artery disease of [place] artery of [place] heart with stable angina pectoris ([facility]); Type 2 diabetes mellitus with stage 3b chronic kidney disease, with long-term current use of insulin ([facility]); Type 2 diabetes mellitus with hyperglycemia, with long-term current use of insulin ([facility]); Stage 3b chronic kidney disease (CMS/HCC); Anemia due to stage 3b chronic kidney disease ([facility]/H[facility]); Thyroid nodule; Type 2 diabetes mellitus with diabetic polyneuropathy, with long-term current use of insulin ([facility]); Dietary counseling; Exercise counseling; Class 2 severe obesity due to excess calories with serious comorbidity and body mass index (BMI) of 35.0 to 35.9 in adult ([facility]); Gastroesophageal reflux disease, unspecified whether esophagitis present; Gas pain; Bilateral foot pain; Breast cancer screening by mammogram 04/12/2025 Travel 03/22/2025 Orders Only GENERIC EXTERNAL DATA DEPARTMENT Provider, Generic External Data 02/15/2025 2:00 PM EDT Office Visit [facility] [address] [place] [phone] Joleen Avery MD Viral upper respiratory infection 02/15/2025 Telephone [facility] [address] [place] [address] Joleen Avery MD from Last 3 Months Immunizations Immunization Administration [...] Colonoscopy 07/07/2025 07/07/2022 Colorectal Cancer Screening 07/07/2025 Influenza Vaccine (#1) 2025 , 09/23/2023, 10/14/2022, Additional history exists Diabetes: Hemoglobin A1C 07/13/2025 025, 01/17/2025, 07/19/2024, Additional history exists Diabetes: Foot Exam 07/19/2025 07/19/2024 Alcohol/Substance Use Screening 01/17/2026 01/17/2025 Depression Screening 01/17/2026 01/17/2025, 01/18/20 25 Mammogram 02/09/2026 02/10/2024, 08/21/2022 Lipid Panel 03/22/2026 03/22/2025, 12/12, 12/24/2022, Additional history exists SDOH Screening 04/12/2026 04/12/2025 Tobacco Screening 04/22/2026 04/22/2025 DTaP/Tdap/Td Vaccines (3 - Td or Tdap) 07/08/2032 07/08/2022, 07/24/2012 HIV Screening Completed 10/06/2018 Hepatitis B Vaccines Completed 09/23/2023, 12/16/2022, 07/08/2022 Pneumococcal Vaccine: 50+ Years Completed 09/23/2023, 01/01/2021 COVID-19 Vaccine Completed 08/06/2024, , 03/05/2021, Additional history exists HIB Vaccines Aged Out [...] disease, with long-term current use of insulin ([facility]) POCT GLUCOSE Routine 04/12/2025 3:56 PM EDT Type 2 diabetes mellitus with stage 3b chronic kidney disease, with long-term current use of insulin ([facility]) ALBUMIN, RANDOM URINE W/CREATININE Routine 03/22/2025 3:56 PM EDT Type 2 diabetes mellitus with hyperglycemia, with long-term current use of insulin ([facility]) Stage 3b chronic kidney disease ([facility]) RESPIRATORY ALLERGY PROFILE REGION I Routine 03/22/2025 3:47 PM EDT IMMUNOGLOBULIN E Routine 03/22/2025 3:4 7 PM EDT VITAMIN B12/FOLATE, SERUM PANEL Routine [...] hyperglycemia, with long-term current use of insulin ([facility]) Dyslipidemia LIPID PANEL WITH REFLEX TO DIRECT LDL Routine 03/22/2025 3:47 PM EDT Type 2 diabetes mellitus with hyperglycemia, with long-term current use of insulin ([facility]) Dyslipidemia CT CHEST WO CONTRAST Routine 02/25/2025 [...] Sensitivity Troponin I (04/22/2025 2:18 PM EDT) Pathologist [facility] TROPONIN I HIGH SENSITIVITY 7.1 <3.5 - 17.0 ng/L [facility] Comment:The Castillo high sens itivity Troponin-I results should beused in conjunction with other diagnostic information suchas ECG, clinical observations and information, and patientsymptoms to aid in the diagnosis of VT. 04/22/2025 2:18 PM EDT 04/22/2025 2:27 PM EDT us Generic External Data Provider LAB BLOOD ORDERAB LES Final Result [facility] [address] [place] [phone] * SARS-CoV-2 RNA, Influenza A/B, and RSV RNA, Ql NAAT (04/22/2025 2:18 PM EDT) Pathologist [facility] Influenza A PCR NEGATIVE Negative [facility] Influenza B PCR NEGATIVE Negative [facility] Resp Syncy Virus RNA Qual PCR NEGATIVE Negative [facility] SARS COV2 PCR NEGATIVE Negative [facility] Comment:All test results mus t be [...] use by authorized laboratories.Testing performed on the [place] [employer] GeneXpert utilizingreal-time RT-PCR.All SARS CoV2 and positive influenza A/B results arereported to [facility]. 04/22/2025 2:18 PM EDT 04/22/2025 2:27 PM EDT us Generic External Data Provider LAB MICROBIOLOGY - GENERAL ORDERABLES Final Result [facility] [address] [place] [address] [phone] * (ABNORMAL) CBC auto differential (04/22/2025 2:18 PM EDT) Only the most recent of2 resultswithin the time period is included. White Blood Count 6.3 4.8 - 10.8 X10*3/uL [facility] Red Blood Count 4.11(L) 4.20 - 5.50 X10*6/uL [facility] Hemoglobin 11.6(L) 12.0 - 16.0 g/dl [facility] Hematocrit 36.8(L) 37.0 - 47.0 % [facility] Mean Corpuscular Volume 89.5 80.0 - 98.0 fL [facility] Mean Corpuscular Hemoglobin 28.2 27.0 - 33.0 pg [facility] Mean Corpuscular HGB Conc 31.5 31.0 - 35.0 g/dl [facility] Red Cell Distribution Width 15.2 11.0 - 16.0 % [facility] Platelet Count 252 160 - 400 X10*3/uL [facility] Mean Platelet Volume 9.1(L) 9.4 - 12.3 fL [facility] Neutrophils Percent Auto 60.9 45 - 73 % [facility] Imm Gran Pct Auto 0.5(H) 0.0 - 0.4 % [facility] Lymphocytes Percent Auto 30.1 20 - 40 % [facility] Monocytes Percent Auto 6.7 2 - 11 % [facility] Eosinophils Percent Auto 1.0 0 - 4 % [facility] Basophils Percent Auto 0.8 0 - 2 % [facility] NRBC Pct Auto 0.0 0.0 - 0.2 /100WBC [facility] Neutrophils Absolute Auto 3.8 2.0 - 8.3 x10*3/uL [facility] Imm Gran Abs Auto 0.03 0.00 - 0.03 X10*3/uL [facility] Lymphocytes Absolute Auto 1.9 1.2 - 4.9 X10*3/uL [facility] Monocytes Absolute Auto 0.4 0.1 - 1.2 X10*3/uL [facility] Eosinophils Absolute Auto 0.1 0.0 - 0.4 X10*3/uL [facility] Basophils Absolute Auto 0.1 0.0 - 0.2 X10*3/uL [facility] NRBC Abs Auto 0.000 0.0 - 0.012 X10*3/uL [facility] 04/22/2025 2:18 PM EDT 04/22/2025 2:27 PM EDT us Generic External Data Provider LAB BLOOD ORDERAB LES Final Result Performing Organization Address [facility] Co de Phone Number [facility] [address] [place] [phone] * Magnesium (04/22/2025 2:18 PM EDT) Magnesium 1.7 1.6 - 2.6 mg/dL [facility] 04/22/2025 2:18 PM EDT 04/22/2025 2:27 PM EDT Generic External Data Provider LAB BLOOD ORDERAB LES Final Result Performing Organization Address [facility]/ZIP Co de Phone Number [facility] [address] [place] [address] [phone] * Hepatic Function Panel (04/22/2025 2:18 PM EDT) Pathologist [facility] Bilirubin, Total 0.3 0.0 - 1.0 mg/dL [facility] Bilirubin, Direct 0.1 0.0 - 0.5 mg/dL [facility] Aspartate Amino Transferase 26 5 - 31 U/L [facility] Alanine Aminotransferase 10 0 - 31 U/L [facility] Total Protein 6.8 6.5 - 8.0 g/dL [facility] Albumin Level 4.2 3.5 - 5.0 g/dL [facility] Alkaline Phosphatase 89 39 - 117 U/L [facility] 04/22/2025 2:18 PM EDT 04/22/2025 2:27 PM EDT us Generic External Data Provider LAB BLOOD ORDERAB LES Final Result Performing Organization Address City/State/[facility] Co de Phone Number [facility] [address] [place] [phone] * (ABNORMAL) Basic Metabolic Panel (04/22/2025 2:18 PM EDT) [facility] Sodium 140 135 - 145 mmol/L [facility] Potassium 3.7 3.3 - 5.1 mmol/L [facility] Chloride 111(H) 96 - 108 mmol/L [facility] Carbon Dioxide 23 22 - 29 mmol/L [facility] Anion Gap 10(L) 12 - 20 [facility] Urea Nitrogen (BUN) 42(H) 9 - 16 mg/dL [facility] Creatinine, Serum 1.99(H) 0.5 - 1.4 mg/dL [facility] Creatinine Clr Calc Pharmacy 29.3 [facility] Comment:Provided height and weight: 157.48 cm,87.7 kg.eGFR (calculated from the MDRD study equation) and eCrCl(calculated from the Cockcroft-Gault equation) are based ondifferent parameters and may not yield comparable results.If eCrCl result is absurd, please check patient'sheight/weight. Estimated Glomerular Filt Rate 25 [facility] Comment:Chronic Kidney Disea se: Estimated GFR < 60 mL/min/[id number] Kidney Disease: Estimated GFR < 15 mL/min/1.73m2 Glucose 64 60 - 115 mg/dL [facility] Calcium 8.8 8.4 - 10.2 mg/dL [facility] 04/22/2025 2:1 8 PM EDT 04/22/2025 2:27 PM EDT us Generic External Data Provider LAB BLOOD ORDERAB LES Final Result Performing Organization Address City/State/[facility] Co de Phone Number [facility] [address] [place] [phone] * XR Chest 2 Views (04/22/2025 1:34 PM EDT) Only the most recent of2 resultswithin the time period is included. Anatomical Region Laterality Modality Chest Radiographic Mary ging 04/22/2025 1:34 PM EDT Narrative 04/22/2025 2:41 PM EDT [address] [address] XRay Report Signed Patient: Ese Mendoza MR#: [id number] 8 : 1960 Acct:[id number] Age/Sex: 64 / F ADM Date: 04/22/25 Loc: .ED Attending Dr: Ordering Physician: Bella Lomeli Date of Service: 04/22/25 Procedure(s): XR chest 2V Accession Number(s): [id number] cc: Bella Lomeli; Maranda Serna MD EXAMINATION: [...] OV> 04/22/25 1438 DD/ 1334 TD/TT: 04/22/25 143 Production Statistical Clerk: Procedure Note Donotuseinterpreter, Image - 04/22/[address] [address] XRay Report Signed Patient: Ese MendozaMR#: [id number] 8 : 1960Acct:[id number] Age/Sex: 64 / FADM Date: 04/22/25 Loc: .ED Attending Dr: Ordering Physician: Bella Lomeli Date of Service: 04/22/25 Procedure(s): XR chest 2V Accession Number(s): [id number] cc: Bella Lomeli; Maranda Serna MD EXAMINATION: [...] OV> 04/22/25 1438 DD/ 1334 TD/TT: 04/22/25 143 Production Statistical Clerk: [facility] External Provider IMG XR PROCEDURES Final [...] specimen / Unknown 04/12/2025 3:56 PM EDT Result [facility] Maranda Serna MD POINT OF CARE TEST ENTER/EDIT OR DERABLES Final Result * Albumin, Random Urine W/Creatinine (03/22/2025 3:56 PM EDT) Creatinine, Urine 52.25 mg/dL [facility] Microalbumin Urine 15.0 mg/L [facility] Microalbum Creatinine Ratio Ur 28.7 <30 ug/mg cr [facility] Comment:Albumin/Creatinine R atio Reference Ranges: Normal: < 30 ug/mg creatinine Microalbuminuria: 30 - 300 ug/mg creatinineClinical Albuminuria: > 300 ug/mg creatinine Urine 03/22/2025 3:56 PM EDT 03/22/2025 5:55 PM EDT Result [facility] Maranda Serna MD LAB URINE ORDERABLES Final Resul t [facility] [address] [place] [phone] * Vitamin B12 (Cobalamin) and Folate Panel, Serum (03/22/2025 3:47 PM EDT) Vitamin B12 810 200 - 900 pg/mL [facility] Comment:NORMAL 200-900 PG/ML INDETERMINATE 160-199 PG/ML DEFICIENT < 160 PG/ML Folate 9.9 > or = 4.0 ng/mL [facility] Comment:Reference Values:> o r = 4.0 ng/mL< 4.0 ng/mL suggests folate deficiency Methotrexate, aminopterin and folinic acid(leucovorin) are chemotherapeutic agents whose molecularstructures are similar to folate; therefore, the Architectfolate assay cannot be used for patients using these drugs. Blood 03/22/2025 3:47 PM EDT 03/22/2025 5:53 PM EDT Maranda Serna MD LAB BLOOD ORDERABLES Final Resul t Performing Organization Address City/[facility]/ZIP Co de Phone Number [facility] [address] [place] [phone] * TSH with Reflex to Free T4 (03/22/2025 3:47 PM EDT) Pathologist [facility] TSH reflex Free T4 1.89 0.32 - 4.0 uIU/mL [facility] Blood 03/22/2025 3:47 PM EDT 03/22/2025 5:53 PM EDT Maranda Serna MD LAB BLOOD ORDERABLES Final Resul t Performing Organization Address City/[facility]/ZIP Co de Phone Number [facility] [address] [place] [phone] * Respiratory Allergy Profile Region I (03/22/2025 3:47 PM EDT) Pathologist [facility] Mouse Urine Proteins (E72) IgE <0.10 kU/L [facility] Class 0 [facility] Cockroach (I6) IgE <0.10 kU/L [facility] Class 0 [facility] Dermatophagoides farinae (D2) IgE <0.10 kU/L [facility] Class 0 [facility] Cat Dander (E1) IgE <0.10 kU/L [facility] Class 0 [facility] Comment:THIS TEST WAS PERFOR MED AT:[facility] [address] [phone] CRONIN MD Dog Dander (E5) IgE <0.10 kU/L [facility] Class 0 [facility] Comment:THIS TEST WAS PERFOR MED AT:[facility] [address] [phone] CRONIN MD Asim Grass (G6) IgE <0.10 kU/L [facility] Class 0 [facility] Cladosporium herbarum (M2) IgE <0.10 kU/L [facility] Class 0 [facility] Aspergillus Fumigatis (M3) IgE <0.10 kU/L [facility] Class 0 [facility] Alternaria alternata (M6) IgE <0.10 kU/L [facility] Class 0 [facility] Comment:THIS TEST WAS PERFOR MED AT:[facility] [address] [phone] CRONIN MD [place] Fells (t6) IgE <0.10 kU/L [facility] Class 0 [facility] [place] (T7) IgE <0.10 kU/L [facility] Class 0 [facility] Dan[place] Tree (T10) IgE <0.10 kU/L [facility] Class 0 [facility] Grant[place] (T11) IgE <0.10 kU/L [facility] Class 0 [facility] [place] (T14) IgE <0.10 kU/L [facility] Class 0 [facility] White Frankie (t15) IgE <0.10 kU/L [facility] Class 0 [facility] [place] (T70) IgE <0.10 kU/L [facility] Class 0 [facility] Common Ragweed (Short) (W1) IgE <0.10 kU/L [facility] Class 0 [facility] Mugwort (w6) IgE <0.10 kU/L [facility] Class 0 [facility] Dermatophagoides pteronyssinus (D1) IgE <0.10 kU/L [facility] Class 0 [facility] Bermuda Grass (g2) IgE <0.10 kU/L [facility] Class 0 [facility] Penicillium Notatum (M1) IgE <0.10 kU/L [facility] Class 0 [facility] Birch (T3) IgE <0.10 kU/L [facility] Class 0 [facility] Elm (t8) IgE <0.10 kU/L [facility] Class 0 [facility] Maple (Webster) (T1) IgE <0.10 kU/L [facility] Class 0 [facility] Rough Pigweed (W14) IgE <0.10 kU/L [facility] Class 0 [facility] Sheep Clemmons (W18) IgE <0.10 kU/L [facility] Class 0 [facility] Allergen Comment See Below [facility] Comment: Specific Level of AllergenIGE [...] and its analyticalperformance characteristics have been determined by[employer]. It has not been cleared or approvedby the U.S. Food and Drug Administration. This assayhas been validated pursuant to the CLIA regulationsand is used for clinical purposes.THIS TEST WAS PERFORMED AT:[facility] [place] [phone] CRONIN MD 03/22/2025 3:47 PM EDT 03/22/2025 5:53 PM EDT us Generic External Data Provider LAB BLOOD ORDERAB LES Final Result Performing Organization Address City/[facility]/ZIP Co de Phone Number [facility] [address] [place] [phone] * Lipid Panel with Reflex to Direct LDL (03/22/2025 3:47 PM EDT) Triglycerides 96 <150 mg/dL [facility] Comment:Desirable Triglyceri de: less than 150 mg/dLBorderline High Triglyceride 150-199 mg/dLHigh Triglyceride: 200-499 mg/dLVery High Triglyceride: greater than or equal to 5OO mg/dL Cholesterol 124 <200 mg/dL [facility] Comment:Desirable Cholestero l: less than 200 mg/dLBorderline High Cholesterol: 200-239 mg/dLHigh Cholesterol: greater than 239 mg/dL LDL Cholesterol Calculated 52 <100 mg/dL [facility] Comment:Desirable LDL: less than 100 mg/dLNear Optimal/Above Optimal LDL: 110- 129 mg/dLBorderline High LDL: 130-159 mg/dLHigh LDL: 160-189 mg/dLVery High LDL: greater than or equal to 190 mg/dL HDL Cholesterol 53 >40 mg/dL [facility] Comment:Desirable HDL: great er than 40 mg/dL Note: This HDL assay may give artificially low results in patients with liver disease. Blood 03/22/2025 3:47 PM EDT 03/22/2025 5:53 PM EDT Maranda Serna MD LAB BLOOD ORDERABLES Final Resul t Performing Organization Address City/[facility]/ZIP Co de Phone Number [facility] [address] [place] [phone] * Iron And Total Iron Binding Capacity (03/22/2025 3:47 PM EDT) Iron 46 30 - 160 mcg/dL [facility] Total Iron Binding Capacity 254 228 - 428 mcg/dL [facility] Percent Iron Saturation 18 15 - 50 % [facility] Unsaturated Iron Binding 208 ug/dL [facility] Blood Venous blood specimen / Unknown 03/22/2025 3:47 PM EDT 03/22/2025 5:53 PM EDT us Maranda Serna MD LAB BLOOD ORDERABLES Final Resul t Performing Organization Address [facility]/ZIP Co de Phone Number [facility] [address] [place] [phone] * Immunoglobulin E (03/22/2025 3:47 PM EDT) Pathologist [facility] Immunoglobulin E 3 <HC=850 kU/L [facility] 03/22/2025 3:47 PM EDT 03/22/2025 5:53 PM EDT us Generic External Data Provider LAB BLOOD ORDERAB LES Final Result Performing Organization Address [facility]/ZIP Co de Phone Number [facility] [address] [place] [phone] * Ferritin (03/22/2025 3:47 PM EDT) Ferritin 134 10 - 250 ng/mL [facility] Blood Venous blood specimen / Unknown 03/22/2025 3:47 PM EDT 03/22/2025 5:53 PM EDT us Maranda Serna MD LAB BLOOD ORDERABLES Final Resul t Performing Organization Address [facility]/ZIP Co de Phone Number [facility] [address] [place] [phone] * (ABNORMAL) Comprehensive Metabolic Panel (03/22/2025 3:47 PM EDT) Sodium 139 135 - 145 mmol/L [facility] Potassium 4.3 3.3 - 5.1 mmol/L [facility] Chloride 106 96 - 108 mmol/L [facility] Carbon Dioxide 25 22 - 29 mmol/L [facility] Anion Gap 12 12 - 20 [facility] Urea Nitrogen (BUN) 33(H) 9 - 16 mg/dL [facility] Creatinine, Serum 1.93(H) 0.5 - 1.4 mg/dL [facility] Estimated Glomerular Filt Rate 26 [facility] Comment:Chronic Kidney Disea se: Estimated GFR < 60 mL/min/1.53p1Kskeie Kidney Disease: Estimated GFR < 15 mL/min/1.73m2 Glucose 79 60 - 115 mg/dL [facility] Calcium 9.1 8.4 - 10.2 mg/dL [facility] Bilirubin, Total 0.3 0.0 - 1.0 mg/dL [facility] Aspartate Amino Transferase 27 5 - 31 U/L [facility] Alanine Aminotransferase 11 0 - 31 U/L [facility] Total Protein 6.9 6.5 - 8.0 g/dL [facility] Albumin Level 4.1 3.5 - 5.0 g/dL [facility] Alkaline Phosphatase 118(H) 39 - 117 U/L [facility] Blood Venous blood specimen / Unknown 03/22/2025 3:47 PM EDT 03/22/2025 5:53 PM EDT us Maranda Serna MD LAB BLOOD ORDERABLES Final Resul t [facility] [address] [place] [phone] * CT Chest w/o Contrast (02/25/2025 11:15 AM EDT) Anatomical Region Laterality Modality Body, Chest Computed Tomogra phy 02/25/2025 11:1 5 AM EDT Narrative 02/25/2025 11:59 AM EDT [address] [address] [address] Scan Report Signed Patient: Ese Mendoza MR#: [id number] 8 : 1960 Acct:[id number] Age/Sex: 64 / F ADM Date: 02/25/25 Loc: HO.CT Attending Dr: Maranda Serna MD Ordering Physician: Maranda Serna MD Date of Service: 02/25/25 Procedure(s): CT chest wo IV con Accession Number(s): [id number] cc: Maranda Serna MD Report Number: [id number]: Total DLP = 183.00 mGy-cm EXAMINATION: CT [...] reconstruction technique DLP: 183 mGy centimeter. FINDINGS: [employer] CERTIFIED NETWORK PROFESSIONAL: Large body habitus. Vascular clips right upper [...] 02/25/25 1155 DD/ 1115 TD/TT: 02/25/25 1124 Production Statistical Clerk: Procedure Note Donotuseinterpreter, Image - 02/25/[address] [place] [address] [address] Scan Report Signed Patient: Ese MendozaMR#: [id number] 8 : 1960Acct:[id number] Age/Sex: 64 / FADM Date: 02/25/25 Loc: .CT Attending Dr: Maranda Serna MD Ordering Physician: Maranda Serna MD Date of Service: 02/25/25 Procedure(s): CT chest wo IV con Accession Number(s): [id number] cc: Maranda Serna MD Report Number: [id number]: Total DLP = 183.00 mGy-cm EXAMINATION: CT [...] reconstruction technique DLP: 183 mGy centimeter. FINDINGS: CIS[employer] CERTIFIED NETWORK PROFESSIONAL: Large body habitus. Vascular clips right upper [...] 02/25/25 1155 DD/ 1115 TD/TT: 02/25/25 1124 Production Statistical Clerk: us Maranda Serna MD IMG CT PROCEDURES Edited Result - Final * ECG 12 lead (02/15/2025 2:15 PM EDT) Joleen Owens MD - 02/15/2025 2:15 PM EDT . EKG showed sinus tachycardia, rate 103 beats per minute, low-voltage QRS, possible inferior Infarct similar to ECG 01/19/25 Joleen Avery MD ECG ORDERABLES Final Resu lt * Influenza B (ID NOW Rapid Molecular) (02/15/2025 1:46 PM EDT) [facility] Influenza B Negative Negative, Indeterminate [facility] Swab 02/15/2025 1:46 PM EDT Joleen Avery MD POINT OF CARE TEST ENTER/E DIT ORDERABLES Final Result Performing Organization Address City/[facility]/ZIP Co de Phone Number [facility] [address] [place] [phone] * Influenza A (ID NOW Rapid Molecular) (02/15/2025 1:46 PM EDT) [facility] Influenza A Negative Negative, Indeterminate [facility] Swab 02/15/2025 1:46 PM EDT Joleen Avery MD POINT OF CARE TEST ENTER/E DIT ORDERABLES Final Result Performing Organization Address City/[facility]/ZIP Co de Phone Number [facility] [address] [place] [phone] * POCT Rapid COVID Ag (02/15/2025 1:46 PM EDT) [facility] Rapid COVID Ag Negative Swab 02/15/2025 1:46 PM EDT Joleen Avery MD POINT OF CARE TEST ENTER/E DIT ORDERABLES Final Result * BI Mammogram Screening Tomosynthesis Bilateral (02/10/2024 2:40 PM EDT) Anatomical Region Laterality Modality Breast Bilateral Mammography 02/10/2024 2:40 PM EDT Narrative 02/22/2024 3:43 PM EDT [facility] [place] [address] Mammography Report Signed Patient: Ese Mendoza MR#: [id number] 8 : 1960 Acct:[id number] Age/Sex: 63 / F ADM Date: 02/10/24 Loc: HO.MAMMO Attending Dr: Maranda Serna MD Ordering Physician: Maranda Serna MD Results: 1Negative Date of Service: 02/10/24 Follow Up: 1 Year From Orig ina Mammogram Procedure(s): MM tomosynthesis screening BI Accession Number(s): [id number] cc: Maranda Serna MD EXAMINATION: MM SCREENING [...] present. These include several, bilateral, benign macrocalcifications treasury representative of fat necrosis. MM/MM tomosynthesis screening [...] in OV> 02/22/24 1539 DD/ 1440 TD/TT: Production Statistical Clerk: Procedure Note Donotuseinterpreter, Image - 02/22/[address] [place] [address] [place] [address] Mammography Report Signed Patient: Ese MendozaMR#: [id number] 8 : 1960Acct:[id number] Age/Sex: 63 / FADM Date: 02/10/24 Loc: [place] Attending Dr: Maranda Serna MD Ordering Physician: Maranda Serna MDResults: 1Negative Date of Service: 02/10/24Follow Up: 1 Year From [facility] Mammogram Procedure(s): MM tomosynthesis screening BI Accession Number(s): [id number] cc: Maranda Serna MD EXAMINATION: MM SCREENING [...] present. These include several, bilateral, benign macrocalcifications treasury representative of fat necrosis. MM/MM tomosynthesis screening [...] in OV> 02/22/24 1539 DD/ 1440 TD/TT: Production Statistical Clerk: Maranda Serna MD IM BI PROCEDURES Edited Result - Final * (ABNORMAL) Hm Colonoscopy (07/07/2022) Colonoscopy Abnormal(A ) Normal [facility] External Provider HEALTH MAINTENANCE Final Result from Last 3 Months or Most Recently Relevant to Health Maintenance Insurance [facility] C3 Care Teams Evaporative Cooler Installer Relationship Specialty Start Date End Date Maranda Serna MD [address] [place] [phone] PCP - General Family Medicine 08/01/21
--- OUTSIDE RECORDS SUMMARY | 2025-05-16 12:57 | XMS_ITS | Clinical Summary ---
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 - Will obtain lab work. Also curious to see radiographic imaging of the hands, feets, SI and lumbar spine. Will obtain interval history from sorting livestock worker Karlee Le. - RTC in 4 [...] 2023-2 5 season) 2024 Influenza Vaccine (#1) 2025 HIV Screening Completed 10/06/2018 Diabetes: Hemoglobin [...] polyneuropathy, with long-term current use of insulin ([facility]) POCT HEMOGLOBIN, A1C Routine 02/09/2019 8:10 AM EDT Type 2 diabetes mellitus with diabetic polyneuropathy, with long-term current use of insulin ([facility]) HIV COMBO ANTIGEN/ANTIBODY Routine 10/06/2018 3:59 PM EST Polyarthralgia from Last 3 Months or Most Recently Relevant to Health Maintenance Results * Microalbumin/creatinine ratio (02/09/2019 10:15 AM EDT) Microalbumin/Creat Ratio 20 2 - 20 mg/g Creat 02/09/2019 11:[address] [facility] Creatinine, Urine, Random 101 mg/dL 02/09/2019 11:[address] [facility] Comment: The laboratory does not have established reference ranges for this test. Interpretation of results is at the discretion of the ordering physician. Urine specimen (specimen) Urine specimen obtained by clean catch procedure / Unknown Non-blood Collection / Unknown 02/09/2019 10:15 AM EDT 02/09/2019 10:15 AM EDT us Keke Katz APRN LAB URINE ORDERABLES Final Res ult [facility] [address] [place] [address], [place] [phone] * POCT hemoglobin, A1c (02/09/2019 8:10 AM EDT) POCT Hemoglobin A1C 9.2 4.4 - 6.4 % Blood specimen (specimen) 02/09/2019 8:10 AM EDT us Keke Katz SLAT GRADER POCT ORDERABLES NO CHARGE Machelle l Result * HIV combo antigen/antibody (10/06/2018 3:59 PM EST) HIV Combo AB/AG Negative Negative 10/06/2018 6:[address] [facility] Blood specimen (specimen) Venous blood specimen / Unknown Venipuncture / Unknown 10/06/2018 3:59 PM EST 10/06/2018 3:[address] [facility] - 10/06/2018 6:02 PM EST This test is a 4th generation HIV Antigen-Antibody Combination assay, using a chemiluminescent microparticle immunoassay, for the simultaneous qualitative detection of human immuno- deficiency virus (HIV) p24 antigen and antibodies to HIV type 1 (HIV-1) and/or HIV type 2 (HIV-2) in human serum or plasma. The [employer] Certified Composites Technician HIV Ag/Ab Combo assay is intended to [...] BLOOD ORDERABLES NO ST AT Final Result [facility] [address] [place] [address], [place] [phone] from Last 3 Months or Most Recently Relevant to Health Maintenance Insurance MEDICAID [place] D Care Teams Stagecraft Professor Relationship Specialty Start Date End Date Viet Sánchez PA [address] [place] [address] PCP - General Family Medicine 07/22/18
--- OUTSIDE RECORDS SUMMARY | 2025-05-16 12:57 | XMS_ITS | Patient Health Record ---
Author Organization [employer] Address [address] [facility] [id number] [place] [address] Care Team Providers Care Botanical Technical Officer Name Role Phone Larisa Saldana Primary Care [...] diabetes mellitus without complications (E11.9) Active confirmed 705825759 Problem Type 2 diabetes mellitus with diabetic polyneuropathy (E11.42) Active confirmed 25527973 Problem Other chronic pain (G89.29) Active confirmed 99527368 Problem Age-related nuclear cataract, bilateral (H25.13) Active confirmed Nuclear senile cataract (256535859) Problem Diabetes (E11.9) Active confirmed Type II diabetes mellitus without complication (362875055) Problem Dyslipidemia (E78.5) Active confirmed 279575241 Problem HTN (hypertension) (I10) Active confirmed Hypertension (86935740) Problem Arthritis (M19.90) Active confirmed 372 3001 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) Active confirmed 610980623 Problem Controlled diabetes mellitus with diabetic neuropathy (E11.40) Active confirmed Diabetic peripheral neuropathy associated with type 2 diabetes mellitus (5223665257571) Problem Type 2 diabetes mellitus with mild nonproliferative diabetic retinopathy without macular edema, bilateral (E11.3293) Active confirmed Mild nonproliferative retinopathy due to type 2 diabetes mellitus (721488056686276) Problem Left retinal detachment (H33.22) Active confirmed Serous r etinal detachment (05600519) Problem Menopausal and postmenopausal disorder (N95.9) Active confirmed 257970562 PLAN OF TREATMENT Pending Test Test Name [...] End Date MACKENZIE Hughes [address] [place] [address] [id number] Ese Mendoza Self - patient is the insured MEDICAID DENTAL [address] [place] [address] [id number] Ese Mendoza Self - patient is the [...]
== END 2025-05-16 12:12 | disposition home or self-care (01) ==
LOC: HO.MAMMO 12:11
PROVIDERS: PCP Family Medicine; Visit Provider Family Medicine
DX: Z12.31 Encounter for screening mammogram for malignant neoplasm of breast (principal)
CPT/HCPCS: 77063; 77067

== ENCOUNTER → 2025-05-16 12:15 | Outpatient (BNV) | payer MEDICAID, SELFPAY | PROVIDERS: PCP Family Medicine; Visit Provider Radiology Body Imaging | DX: Z12.31 Encounter for screening mammogram for malignant neoplasm of breast (principal) | CPT/HCPCS: 77063; 77067 ==

== ENCOUNTER 2025-05-20 15:04 | Outpatient (AMB) | payer MEDICAID, SELFPAY ==
--- NOTE | 2025-05-20 13:22 | A.OFFVIS_ITS ---
Vital Signs 05/20/25 15:07 Height 5 ft 2 in Weight 199 lb BMI 36.4 BP 120/70 Blood Pressure Location Lt brachial Position Sitting Pulse 91 Pulse Source Pulse Oximeter Pulse Oximetry (%) 94 Oxygen Delivery Method Room Air Intake Visit Reasons: abnormal CT Cloth Examiner Machine Required: No Orthopedic Cast Specialist: Orthopedic Cast Specialist offered & declined Accompanied by: Self / Same As Patient Allergies Pork/Porcine Containing Products (Pork/Porcine Product Derivatives) Allergy (Mild, Verified 05/20/25 15:11) SORES /ITCHING Seasonal Allergies Allergy (Mild, Verified 05/20/25 15:11) Itching nickel Adverse Reaction (Verified 05/20/25 15:11) Swelling and irritation Medication List - Last Reconciled 05/20/25 by Roxanne Augustin LPN acetaminophen (Tylenol Extra Strength) 500 mg PO Q6H PRN ammonium lactate 12% 1 appl topical DAILY ascorbic acid (vitamin C) 1,000 mg PO DAILY aspirin ([place] Aspirin) 81 mg PO DAILY atorvastatin 80 mg PO DAILY blood pressure monitor As directed blood sugar diagnostic (FreeStyle Lite Strips) As directed carvedilol 6.25 mg See Protocol PO BID clopidogrel 75 mg PO DAILY dapagliflozin propanediol (Farxiga) 5 mg PO QAM digestive enzymes 1 cap PO BID diphenhydramine-acetaminophen 25-500 mg (Tylenol PM Extra Strength) 1 tab PO BEDTIME PRN ferrous sulfate 325 mg PO Q OTHER DAY fesoterodine ER (Toviaz) 8 mg PO DAILY fluticasone furoate-vilanterol 100-25 mcg/dose (Breo Ellipta) 1 inh inhalation DAILY fluticasone propionate 50 mcg/actuation 1 spray intranasal DAILY PRN incontinence pad, liner, disp As directed: change pads Q2-3 hours/PRN insulin degludec (Tresiba FlexTouch U-100 insulin) 35 units subcut BEDTIME PRN Held on 11/29/24. Instructions: Resume on 12/01/24. insulin lispro 45 units subcut USEASDIRECTD isosorbide mononitrate ER 30 mg PO DAILY levalbuterol HCl 1.25 mg (3 mL) inhalation Q4H PRN omega 4-ymw-nja-fish oil 1,000 (120-180) mg (Fish Oil) 1 cap PO DAILY omeprazole 40 mg (2 x 20 mg) PO DAILY pen needle, diabetic (Easy Touch) As directed prednisolone acetate 1% (Pred Forte) 1 drp ophthalmic-Left QID simethicone (Gas Relief (simethicone)) 125 mg PO BID-TID PRN vitamin B complex 1 tab PO DAILY HPI HPI abnormal CT: Details: Ese is a pleasant 64 year old female, former minimal smoker, with underlying asthma, diabetes, stage 3 chronic kidney disease, hypertension, and hype rlipidemia. She was initially referred by PCP for pulmonary evaluation for chronic cough, that has been unchanged over the last 10 years. She reports cough is mostly dry occasionally with clear sputum and associated dyspnea on exertion. She denies wheezing or chest tightness. At the last visit, she was started on Breo due to known history of asthma and reports moderate improvement initially but has since worsened, accompanied by throat discomfort and difficulty swallowing large tablets. Previously evaluated by an ENT specialist, without significant findings. The patient also has gastroesophageal reflux disease (GERD),under the care of GI, which has been treated with omeprazole without significant improvement. She is considering switching to Pepcid due to dietary restrictions and the ineffectiveness of current treatment. The patient uses a pillow to sleep elevated, which helps alleviate her symptoms. The patient has been diagnosed with sleep apnea and previously used a CPAP machine, which she found intolerable. She experiences some symptoms of sleep apnea, such as snoring and daytime tiredness, and is considering further evaluation. [facility] Medical History Pancreatic insufficiency Pancreatic insufficiency Tubular adenoma CKD (chronic kidney disease) Anemia GERD (gastroesophageal reflux disease) Renal cyst Bladder prolapse, female, acquired Hx of gastric ulcer IBS (irritable bowel syndrome) Kidney stones High cholesterol Diabetes Surgical History Hx of endoscopy Hx of colonoscopy History of partial hysterectomy Hx of breast reduction, elective Hx of cholecystectomy Family History Father Heart attack DM2 (diabetes mellitus, type 2) Mother DM2 (diabetes mellitus, type 2) COPD (chronic obstructive pulmonary disease) Other No pertinent family history Social History Household Members: Family Housing: House Do you presently have visiting nurse or other home services: No Unable to assess alcohol history related to: Unknown Alcohol intake: never Patient Tobacco Use Status: Never used Tobacco Second Hand Smoke Exposure: No service: No Review of Systems Const Denies chills, Denies excessive sweating, Denies fever(s), Denies headache(s) and Denies night sweats Eyes Denies dry eyes, Denies irritation and Denies itchy eyes ENT Reports Normal hearing present, Denies headache(s), Denies nasal congestion, Denies nasal discharge and Denies sore throat Card Denies chest pain, Denies chest pain at rest, Denies chest pain with activity, Denies claudication, Denies leg edema, Denies orthopnea and Denies paroxysmal nocturnal dyspnea Resp Denies chest congestion, Denies excessive phlegm production, Denies pain on inspiration, Denies pain with cough, Denies stridor and Denies wheezing Musc Denies myalgias Neuro Reports Normal hearing present and Denies headache(s) Endo Denies excessive sweating Ethan/Lymph Denies lymphadenopathy Aller/Immun Denies itchy eyes, Denies seasonal rhinorrhea and Denies wheezing Physical Exam Vital Signs: Last Vital Signs Pulse 91 05/20/25 15:07 BP 120/70 05/20/25 15:07 Pulse Ox 94 05/20/25 15:07 Oxygen Delivery Method Room Air 05/20/25 15:07 BMI result Body Mass Index 36.4 Const General: cooperative, healthy appearing, comfortable, no acute distress, well developed and alert Nutritional Appearance: obese Orientation/consciousness: patient oriented x3 Limitations: no limitations HEENT Head: Yes normal to inspection, Yes normocephalic and Yes atraumatic Ears: hearing grossly normal bilaterally and external ears normal Eyes General: appearance normal, both eyes and all related structures Eyelids: Yes eyelids normal Sclerae: sclerae normal EOM: EOMs intact bilaterally Neck Neck: Yes normal visual inspection and Yes no lymphadenopathy Lymphatic: no lymphadenopathy noted Chest Chest palpation & inspection: normal inspection of the chest Resp Effort & Inspection: normal respiratory effort, able to speak in complete sentences, no audible wheezes, no cough, no stridor, not tachypneic, no tripod positioning and no use of accessory muscles Auscultation: clear to auscultation bilaterally Cardio Jugular venous distension: no JVD Rate: regular rate Rhythm: regular rhythm Skin Other: warm, dry General skin exam: no rashes or lesions noted Neuro General: patient oriented x3 Cranial nerves: Yes Normal hearing present Cognition (Neuro): normal cognition Gait exam (Neuro): Normal gait present Extrem General: Yes normal to inspection, Yes capillary refill normal, Yes no clubbing, cyanosis or edema and Yes no pedal edema Psych Appearance: grossly normal and well kempt Speech and movement: Normal speech and movement present and Clear speech present Affect: normal affect Attitude: cooperative Thought process: Normal thought process present Thought content: Normal thought content present Insight: Good insight present (Psych) Judgement: Good judgement present (Psych) Assessment & Plan Assessment & Plan (1) Asthma: Code(s): J45.909 - Unspecified asthma, uncomplicated Category: Medical (2) Environmental allergies: Code(s): Z91.09 - Other allergy status, other than to drugs and biological substances Category: Medical (3) Pulmonary nodule: Code(s): R91.1 - Solitary pulmonary nodule Category: Medical Plan Advised the patient to continue using the Breo inhaler until the results of the scheduled PFT are available. A new albuterol inhaler has been prescribed for acute exacerbations of asthma symptoms. 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 Further evaluation of sleep apnea is recommended, however would like to discuss the possibility of a new sleep study with her prior to scheduling. Reviewed RAST which was negative, IgE 3. Repeat chest CT ordered, to be performed in one year to assess stability of LLL pulmonary nodule. All questions were answered and patient is agreement of plan. Will follow-up to review results or sooner if needed. Medications: New albuterol sulfate 90 mcg/actuation 2 puffs inhalation Q4-6H PRN 1 ea 6RF shortness of breath or wheezing Coding Level of Care Code Est Pt Level 3 (80158) Diagnoses Asthma J45.909 Environmental allergies Z91.09 Pulmonary nodule R91.1
[2025-05-20 15:07] VITALS: BP 120/70; PULSE 91; O2SAT 94; BMI 36.4
--- OUTSIDE RECORDS SUMMARY | 2025-05-20 15:09 | XMS_ITS | Clinical Summary ---
Author Organization [facility] Address [address] [place] [address] Phone Care Team Providers Care Mincemeat Maker Name Role Phone Machelle Swann MD Primary Care Provider [phone] Allergies Active Allergy Reactions Criticality Noted Date [...] 42 mcg (0.06 %) nasal spray 1 [place] by Nasal route. 09/24/20 Active omega-3 acid [...] osteoarthritis; plantar fasciitis - referred to a arc cutter plasma arc; waiting for an appt - check the [...] hyperkalemia and cough -Currently prescribed Dapagliflozin from service support representative -Follow up in 3-6 mo, sooner [...] Last Assessment & Plan: - followed by [facility] - no anatomical pancreatic abnormality on MRI in Dec 2022 - continue vegan / plant-based pancreatic enzyme Right knee pain 12/16/2022 Allergic rhinitis 10/12/2022 Anemia 10/12/2022 Overview (08/25/2024): Last Assessment & Plan: - likely due to chronic diseaes - Hx iron infusion - 12/24/22 Hgb 11.7, Hematocrit 35.7 Chronic idiopathic constipation 10/12/2022 Overview (08/25/2024): Last Assessment & Plan: -Followed by [facility], last seen 08/06/22 -EGD and Colonoscopy on 12/24/21; showed Tubular Adenoma, she was recommended to repeat in 3 years. - pt has been using castor oil - continue trying fiber-rich diet and increasing physical activity as tolerated. 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 Tsai is prescribing Dapagliflozin (Farxiga) - Previously on Lisinopril, but was disccontinued due to cough / K - Avoid nephrotoxic drugs - Renal dose meds Gastroesophageal reflux disease 10/12/2022 Overview (08/25/2024): Last Assessment & Plan: -s/p EGD 12/24/21 -followed by [facility] -continue omeprazole 40mg daily -previously tried pantoprazole and lansoprazole; pt prefers omeprazole. -previously prescribed famotidine. Max dose for her renal function is 20 mg daily. Pt does not take it regularly. Irritable bowel syndrome 10/12/2022 Overview (08/25/2024): Last Assessment & Plan: - followed by [facility] - continue current treatment plan per GI - low FODMAP diet - pt is prescribed simethicone, Sennakot, citrucel, but does not like taking it regularly Osteopenia 10/12/2022 Atrial fibrillation ([facility] V24, [facility] V28) 0 12/25/2021 Cobalamin deficiency 12/25/2021 Diabetic retinopathy ([facility] V24, [facility] V28) 12/25/2021 Nephrolithiasis 12/25/2021 Overview (08/25/2024): Last Assessment & Plan: - seen by urologist, last visit on Vitamin D deficiency 12/25/2021 Diabetic peripheral neuropat hy associated with type 2 diabetes mellitus ([facility] V24, [facility] V28) 11/22/2019 Nonrheumatic mitral valve regurgitation 11/09/20 Nonrheumatic tricuspid valve regurgitation 11/09 Obstructive sleep apnea syndrome 11/09/2019 Overview (08/25/2024): Last Assessment & Plan: - Pt does not feel comfortable with CPAP SOB (shortness of breath) 11/09/2019 Type 2 diabetes mellitus wit hout complication ([facility] V24, [facility] V28) 11/09/2019 Arthritis 03/03/2019 Chronic cough 01/26/2019 Moderate persistent asthma with acute exacerbati on 01/26/2019 Pulmonary hypertension ([facility] V24, [facility] V28 ) 12/31/2018 Pulmonary arterial hypertension ([facility] V24, [facility] V28) 11/19/2018 Ulcer of foot ([facility] V24, [facility] V28) 011 Encounters Date Type Department Care Team Description 05/19/2025 2:15 PM EDT Office Visit Orthopedic Surgery [facility] [address] [phone] Damien Centeno DPM Controlled type 2 diabetes mellitus with diabetic polyneuropathy, without long-term current use of insulin ([facility] V24, [facility] V28) (Primary Dx); Capsulitis of metatarsophalangeal (MTP) joint of right foot; Arthritis of both midfeet; Pain in toes of both feet; Onychomycosis; Callus 03/17/2025 2:00 PM EDT Office Visit Orthopedic Surgery [facility] [address] [phone] Damien Centeno DPM Controlled type 2 diabetes with neuropathy ([facility] V24, [facility] V28) (Primary Dx); Capsulitis of metatarsophalangeal (MTP) [...] Care Team (Late st Contact Info) Description 07/21/2025 1:45 PM EDT Office Visit Orthopedic Surgery - [address] [phone] Damien Centeno DPM [address] [address] Health Maintenance Due Date Last Done Comments [...] 12/10/2023 Social Influencers of Health Screening 12/10/2023 COVID-19 Vaccine (5 - Pfizer risk season) 2025 08/06/2024, 08/31/2021, 03/05/2021, Additional history exists Influenza Vaccine (#1) 2025 , 09/23/2023, 10/14/2022, Additional history exists Diabetes: Blood Sugar Control Test (HGBA1C) 10/12/2025 04/12/2025, 01/17/2025, 07/19/2024, Additional history exists Depression Screening 01/17/2026 01/17/2025 Diabetes: Annual GFR (Glomerular Filtration Rate) 04/22/2026 04/22/2025, 03/22/2025, 12/30/2023, Additional history exists Hypertension/CHF/CAD Annual BMP Blood Test 04/22/2026 04/22/2025, 03/22/2025, 12/30/2023, Additional history exists Cholesterol Screening (Lipid Panel) 12/30/2028 12/30/2023 DTaP,Tdap,and Td Vaccines (3 - Td or Tdap) 07/08/2032 07/08/2022, 07/24/2012 Hepatitis B Vaccines Completed 09/23/2023, 12/16/2022, 07/08/2022 Pneumococcal Vaccine: 50+ Years Completed 09/23/2023, 01/01/2021 HIB Vaccines Aged Out [...] (12/30/2023) Annual BMP Blood Test Abstracted Result [facility] Provider HEALTH MAINTENANCE Final Result * Hemoglobin A1c (12/30/2023) Pathologist [facility] Hemoglobin A1C 0.0 % Comment:no interpretation Blood Venous blood specimen / Unknown Result [facility] Provider LAB BLOOD ORDERABLES Machelle l Result * Lipid panel (12/30/2023) Pathologist [facility] Triglycerides 0 mg/dL Comment:no interpretation Cholesterol 0 mg/dL Comment:no interpretation HDL 0 mg/dL Comment:no interpretation LDL Cholesterol 0 mg/dL Comment:no interpretation Blood Venous blood specimen / Unknown Result [facility] Provider LAB BLOOD ORDERABLES Machelle l Result * Urine Albumin Creatinine Ratio (07/24/2022) Urine Albumin Creatinine Ratio Abstracted [facility] Provider HEALTH MAINTENANCE Final Result from Last 3 Months or Most Recently Relevant to Health Maintenance Insurance [place] Care Teams Mincemeat Maker Relationship Specialty Start Date End Date Machelle Swann MD [address] [place] [address] [place] [address] PCP - General 10/15/12
--- OUTSIDE RECORDS SUMMARY | 2025-05-20 15:09 | XMS_ITS | Clinical Summary ---
Author Organization [employer] Address [address] [facility] [address] [place] [address] Care Team Providers Care Inweaver Name Role Phone Maranad Serna MD Primary Care Provider [phone] Allergies Active Allergy Reactions Criticality Noted Date [...] 30 mL 2 Active Easy Touch Pen Whitmore 31G X 8 MM miscIndication s:Type 2 diabetes mellitus with hyperglycemia, with long-term current use of insulin ([facility]) USE DIRECTED THREE TIMES DAILY 200 each [...] by mouth Once per day. 90 tablet 025 2025 Active OneTouch Delica Lancets 33G misc 1 each 3 times daily. 100 each Active TRUEplus Lancets 33G miscIndication s:Type 2 diabetes mellitus with hyperglycemia, with long-term current use of insulin ([facility]) TEST BLOOD SUGAR THREE TIMES DAILY 100 each Active simethicone (Mylicon) 125 MG chewable tablet Chew 1 tablet (125 mg) every 6 (six) hours if needed for flatulence. 100 tablet Active Acetaminophen Extra Strength 500 MG tablet TAKE 1 TO 2 TABLETS BY MOUTH EVERY 8 HOURS NEEDED FOR PAIN OR FEVER 90 tablet 3 Active glucose blood test stripIndicatio ns:Type 2 diabetes mellitus with hyperglycemia, with long-term current use of insulin ([facility]) OneTouch brand. TEST BLOOD SUGAR THREE TIMES DAILY 100 each 025 2025 Active glucose blood (FREESTYLE LITE) test stripIndicatio ns:Type 2 diabetes mellitus with stage 3b chronic kidney disease, with long-term current use of insulin ([facility]) USE TO TEST BLOOD SUGAR THREE TIMES A DAY 100 each 025 Active Blood Glucose Monitoring Suppl (FreeStyle Lite) w/Device kitIndications :Type 2 diabetes mellitus with stage 3b chronic kidney disease, with long-term current use of insulin ([facility]) 1 Dose by Other route 3 times daily. USE TO TEST BLOOD SUGAR THREE TIMES A DAY 1 kit 07/10/2 025 Active TRUEplus Lancets 33G miscIndication s:Type 2 diabetes mellitus with stage 3b chronic kidney disease, with long-term current use of insulin ([facility]) USE TO TEST BLOOD SUGAR THREE TIMES A DAY 100 each 3 025 Active Acetaminophen Extra Strength 500 [...] Assessment & Plan (04/12/2025 1:39 PM EDT): -Assembling Fabricator: [facility], last seen in Dec 2024 -11/30/2024- Cardiac catheterization showed hrny-ke-jmisepey distal LAD disease with severe distal stenosis [...] Assessment & Plan (01/21/2025 12:33 PM EDT): -Assembling Fabricator: [facility], last seen in Dec 2024 -11/30/2024- Cardiac catheterization showed [id number] distal LAD disease with severe distal stenosis [...] and supportive care - follow up with physical damage appraiser as scheduled Assessment & Plan (07/23/2024 9:02 [...] Plan (01/17/2025 11:35 AM EDT): - seeing physical damage appraiser - continue judicious use of gabapentin 100 mg tid - she wants to switch to tablet. Only tablets available are 600 and 800 mg tablet - will have her take 1/4 of 600 mg tablet and take bid; or will check with pharmacist if she can open the capsule and take inside content Assessment & Plan (07/23/2024 5:36 AM EDT): - seeing physical damage appraiser - continue judicious use of gabapentin 100 mg tid - she wants to switch to tablet. Only tablets available are 600 and 800 mg tablet - will have her take 1/4 of 600 mg tablet and take bid; or will check with pharmacist if she can open the capsule and take inside content Assessment & Plan (01/04/2024 3:36 PM EST): - seeing physical damage appraiser - continue judicious use of gabapentin Assessment & Plan (10/03/2023 9:48 AM EST): - seeing physical damage appraiser - waiting for diabetic orthotics Adjustment disorder [...] hyperkalemia and cough -Currently prescribed Dapagliflozin from it software developer Assessment & Plan (07/20/2024 1:50 PM EDT): -Goal BP < 140/90 per JNC-8 and < 130/80 per ACC/AHA guideline (Treatment threshold >= 140/90 ) -BP at goal today -Continue working on lifestyle modifications -Recommended self-monitoring BP. -Pt has tried lisinopril for renal protection, not for HTN, in the past, but it was discontinued due to hyperkalemia and cough -Currently prescribed Dapagliflozin from it software developer -Follow up in 3-6 mo, sooner if [...] hyperkalemia and cough -Currently prescribed Dapagliflozin from it software developer -Follow up in 3-6 mo, sooner if [...] neuropathy; osteoarthritis; plantar fasciitis - Following with physical damage appraiser Assessment & Plan (06/07/2023 3:44 PM EDT): - left foot worse than right - multifactorial: Diabetic peripheral neuropathy; osteoarthritis; plantar fasciitis - referred to a physical damage appraiser; waiting for an appt - check the [...] want to try any GLP-1 agonist. -Patient Devulcanizer Tender prescribed Farxiga. Patient is taking this [...] want to try any GLP-1 agonist. -Patient Devulcanizer Tender prescribed Farxiga. Patient is no longer [...] (01/04/2024 3:42 PM EST): - followed by [facility] - no anatomical pancreatic abnormality on MRI in Dec 2022 - continue vegan / plant-based pancreatic enzyme Assessment & Plan (10/03/2023 9:49 AM EST): - followed by [facility] - no anatomical pancreatic abnormality on MRI in Dec 2022 - continue vegan / plant-based pancreatic enzyme Assessment & Plan (06/07/2023 3:30 PM EDT): - followed by [facility] - no anatomical pancreatic abnormality on MRI in Dec 2022 - continue vegan / plant-based pancreatic enzyme Assessment & Plan (02/24/2023 5:30 AM EDT): - followed by [facility] - no anatomical pancreatic abnormality on MRI in Dec 2022 - continue vegan / plant-based pancreatic enzyme Assessment & Plan (12/18/2022 6:12 PM EST): - followed by [facility] - continue [...] Plan (01/21/2025 12:33 PM EDT): -Followed by [facility], last seen 01/03/25 -EGD and Colonoscopy on 12/24/21; showed Tubular Adenoma, she was recommended to repeat in 3 years. - pt has been using castor oil - continue trying fiber-rich diet and increasing physical activity as tolerated. - continue Senakot as prescribed Assessment & Plan (07/20/2024 1:50 PM EDT): -Followed by [facility], last seen 08/06/22 -EGD and Colonoscopy on 12/24/21; showed Tubular Adenoma, she was recommended to repeat in 3 years. - pt has been using castor oil - continue trying fiber-rich diet and increasing physical activity as tolerated. - continue Senakot as prescribed Assessment & Plan (01/04/2024 3:38 PM EST): -Followed by [facility], last seen 08/06/22 -EGD and Colonoscopy on 12/24/21; showed Tubular Adenoma, she was recommended to repeat in 3 years. - pt has been using castor oil - continue trying fiber-rich diet and increasing physical activity as tolerated. - continue Senakot as prescribed Assessment & Plan (06/07/2023 3:33 PM EDT): -Followed by [facility], last seen 08/06/22 -EGD and Colonoscopy on 12/24/21; showed Tubular Adenoma, she was recommended to repeat in 3 years. - pt has been using castor oil - continue trying fiber-rich diet and increasing physical activity as tolerated. - continue Senakot as prescribed Assessment & Plan (12/18/2022 6:26 PM EST): -Followed by [facility], last seen 08/06/22 -EGD and Colonoscopy on 12/24/21; showed Tubular Adenoma, she was recommended to repeat in 3 years. - pt has been using castor oil - continue trying fiber-rich diet and increasing physical activity as tolerated. - continue Senakot as prescribed Chronic kidney disease, stage III (moderate) 01/2022 Assessment & Plan (04/12/2025 1:40 PM EDT): - Devulcanizer Tender, Dr. Marci Hylton. Last seen on 01/25/25 - Metformin is discontinued, Dr. Tsai started her on Dapagliflozin (Farxiga) - Previously on Lisinopril, but was disccontinued due to cough / K - Avoid nephrotoxic drugs, including NSAID (no more Aleve) - Renal dose meds Assessment & Plan (01/21/2025 12:32 PM EDT): - Devulcanizer Tender, Dr. Marci Hylton. Last seen on 01/25/25 - Metformin is discontinued, Dr. Tsai started her on Dapagliflozin (Farxiga) - Previously on Lisinopril, but was disccontinued due to cough / K - Avoid nephrotoxic drugs, including NSAID (no more Aleve) - Renal dose meds Assessment & Plan (07/23/2024 5:41 AM EDT): - Devulcanizer Tender, Dr. Marci Hylton. - Metformin is discontinued, Dr. Tsai started bryn ib Dapagliflozin (Farxiga) - Previously on Lisinopril, but was disccontinued due to cough / K - Avoid nephrotoxic drugs, including NSAID (no more Aleve) - Renal dose meds Assessment & Plan (01/04/2024 3:45 PM EST): - Devulcanizer Tender, Dr. 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 Tsai is prescribing Dapagliflozin (Farxiga) - Previously on Lisinopril, but was disccontinued due to cough / K - Avoid nephrotoxic drugs - Renal dose meds Assessment & Plan (10/03/2023 9:41 AM EST): - Devulcanizer Tender, Dr. Tsai - Metformin is discontinued, [...] & Plan (06/07/2023 3:34 PM EDT): - Devulcanizer Tender, Dr. Tsai - Metformin is discontinued, [...] & Plan (02/24/2023 5:37 AM EDT): - Devulcanizer Tender, Dr. Tsai - Lab: 12/24/22 BUN [...] & Plan (12/18/2022 6:31 PM EST): - Devulcanizer Tender, Dr. Tsai - Metformin is discontinued, [...] PM EDT): -s/p EGD 12/24/21 -followed by [facility] -refill famotidine as requested. Patient takes prn. -since patient is on clopidogrel, will check whether patient is taking omeprazole or pantoprazole. Assessment & Plan (01/04/2024 3:42 PM EST): -s/p EGD 12/24/21 -followed by [facility] -continue omeprazole 40mg daily -previously tried pantoprazole and lansoprazole; pt prefers omeprazole. -previously prescribed famotidine. Max dose for her renal function is 20 mg daily. Pt does not take it regularly. Assessment & Plan (10/03/2023 9:50 AM EST): -s/p EGD 12/24/21 -followed by [facility] -continue omeprazole 40mg daily -previously tried pantoprazole and lansoprazole; pt prefers omeprazole. -previously prescribed famotidine. Max dose for her renal function is 20 mg daily. Pt does not take it regularly. Assessment & Plan (06/07/2023 3:33 PM EDT): -s/p EGD 12/24/21 -followed by [facility] -continue omeprazole 40mg daily -previously tried pantoprazole and lansoprazole; pt prefers omeprazole. -previously prescribed famotidine. Max dose for her renal function is 20 mg daily. Pt does not take it regularly. Assessment & Plan (12/18/2022 6:28 PM EST): -s/p EGD 12/24/21 -followed by [facility] -continue prantoprazol 40mg daily -previously prescribed famotidine. Max dose for her renal function is 20 mg daily. Irritable bowel syndrome 10/12/2022 Assessment & Plan (07/20/2024 1:50 PM EDT): - followed by [facility] - continue current treatment plan per GI - low FODMAP diet - pt is prescribed simethicone, Sennakot, citrucel, but does not like taking it regularly Assessment & Plan (01/04/2024 3:42 PM EST): - followed by [facility] - continue current treatment plan per GI - low FODMAP diet - pt is prescribed simethicone, Sennakot, citrucel, but does not like taking it regularly Assessment & Plan (10/03/2023 9:49 AM EST): - followed by [facility] - continue current treatment plan per GI - low FODMAP diet - pt is prescribed simethicone, Sennakot, citrucel, but does not like taking it regularly Assessment & Plan (06/07/2023 3:32 PM EDT): - followed by [facility] - continue current treatment plan per GI - low FODMAP diet - pt is prescribed simethicone, Sennakot, citrucel, but does not like taking it regularly Assessment & Plan (12/18/2022 6:27 PM EST): - followed by [facility] - continue [...] - Prescribed dapagliflozin (Farxiga) from PCP and it software developer, questionable adherence - Discussed about CGM, which she does not want to use it at this time Treatment Hx -Pt has taken GLP-1 agonists and had significant side effects, mainly GI. Pt states she does not want to try any GLP-1 agonist. -Patient Devulcanizer Tender prescribed Farxiga. Patient is taking this [...] - Prescribed dapagliflozin (Farxiga) from PCP and it software developer, questionable adherence - Discussed about CGM, which she does not want to use it at this time Treatment Hx -Pt has taken GLP-1 agonists and had significant side effects, mainly GI. Pt states she does not want to try any GLP-1 agonist. -Patient Devulcanizer Tender prescribed Farxiga. Patient is taking this [...] want to try any GLP-1 agonist. -Patient Devulcanizer Tender prescribed Farxiga. Patient is taking this [...] want to try any GLP-1 agonist. -Patient Devulcanizer Tender prescribed Farxiga. Patient is no longer [...] want to try any GLP-1 agonist. -Patient Devulcanizer Tender prescribed Farxiga. Patient is no longer [...] want to try any GLP-1 agonist. -Patient Devulcanizer Tender prescribed Farxiga. Patient is no longer [...] want to try any GLP-1 agonist. -Patient Devulcanizer Tender prescribed Farxiga. Patient is no longer [...] Date Type Department Care Team Description 05/19/2025 Refill [facility] [address] [place] [phone] Maranda Serna MD Type 2 diabetes mellitus with stage 3b chronic kidney disease, with long-term current use of insulin ([facility]) 05/04/2025 Refill [facility] [address], [place] [phone] Maranda Serna MD Type 2 diabetes mellitus with hyperglycemia, with long-term current use of insulin ([facility]) 04/25/2025 Orders Only [facility] [address], [place] [phone] Maranda Serna MD 04/22/2025 Orders Only GENERIC EXTERNAL DATA DEPARTMENT Provider, Generic External Data 04/12/2025 3:30 PM EDT Office Visit [facility] [address] [place] [phone] Maranda Serna MD Elevated blood pressure reading in office without diagnosis of hypertension (Primary Dx); Dyslipidemia; Coronary artery disease of [place] artery of [place] heart with stable angina pectoris ([facility]); Type 2 diabetes mellitus with stage 3b chronic kidney disease, with long-term current use of insulin ([facility]); Type 2 diabetes mellitus with hyperglycemia, with long-term current use of insulin ([facility]); Stage 3b chronic kidney disease ([facility]); Anemia due to stage 3b chronic kidney disease ([facility]); Thyroid nodule; Type 2 diabetes mellitus with diabetic polyneuropathy, with long-term current use of insulin ([facility]); Dietary counseling; Exercise counseling; Class 2 severe obesity due to excess calories with serious comorbidity and body mass index (BMI) of 35.0 to 35.9 in adult ([facility]); Gastroesophageal reflux disease, unspecified whether esophagitis present; Gas pain; Bilateral foot pain; Breast cancer screening by mammogram 04/12/2025 Travel 03/22/2025 Orders Only GENERIC EXTERNAL DATA DEPARTMENT Provider, Generic External Data from Last 3 Months Immunizations Immunization Administration [...] housing situation today? I have tristenzeus guerin 01/17/[address] you [...] Routine 02/25/2025 11:15 AM EDT Pulmonary nodule BI MAMMOGRAM SCREENING TOMOSYNTHESIS BILATERAL Routine 02/10/2024 2:40 PM EDT HM COLONOSCOPY Routine 07/07/2022 from Last 3 Months or Most Recently Relevant to Health Maintenance Results * High Sensitivity Troponin I (04/22/2025 2:18 PM EDT) Pathologist [facility] TROPONIN I HIGH SENSITIVITY 7.1 <3.5 - 17.0 ng/L [facility] Comment:The Castillo high sens itivity Troponin-I results should beused in conjunction with other diagnostic information suchas ECG, clinical observations and information, and patientsymptoms to aid in the diagnosis of [place]. 04/22/2025 2:18 PM EDT 04/22/2025 2:27 PM EDT us Generic External Data Provider LAB BLOOD ORDERAB LES Final Result [facility] [address] [place] [phone] * SARS-CoV-2 RNA, Influenza A/B, and RSV RNA, Ql NAAT (04/22/2025 2:18 PM EDT) Pathologist [facility] Influenza A PCR NEGATIVE Negative [facility] Influenza B PCR NEGATIVE Negative [facility] Resp Syncy Virus RNA Qual PCR NEGATIVE Negative [facility] SARS COV2 PCR NEGATIVE Negative [facility] Comment:All test results [...] use by authorized laboratories.Testing performed on the [employer] GeneXpert utilizingreal-time RT-PCR.All SARS CoV2 and positive influenza A/B results arereported to [facility]. 04/22/2025 2:18 PM EDT 04/22/2025 2:27 PM EDT us Generic External Data Provider LAB MICROBIOLOGY - GENERAL ORDERABLES Final Result [facility] [address] [place] [phone] * (ABNORMAL) CBC auto differential (04/22/2025 2:18 PM EDT) Only the most recent of2 resultswithin the time period is included. White Blood Count 6.3 4.8 - 10.8 X10*3/uL [facility] Red Blood Count 4.11(L) 4.20 - 5.50 X10*6/uL [facility] Hemoglobin 11.6(L) 12.0 - 16.0 g/dl [facility] Hematocrit 36.8(L) 37.0 - 47.0 % [facility] Mean Corpuscular Volume 89.5 80.0 - 98.0 fL [facility] Mean Corpuscular Hemoglobin 28.2 27.0 - 33.0 pg [facility] Mean Corpuscular HGB Conc 31.5 31.0 - 35.0 g/dl [facility] Red Cell Distribution Width 15.2 11.0 - 16.0 % [facility] Platelet Count 252 160 - 400 X10*3/uL [facility] Mean Platelet Volume 9.1(L) 9.4 - 12.3 fL [facility] Neutrophils Percent Auto 60.9 45 - 73 % [facility] Imm Gran Pct Auto 0.5(H) 0.0 - 0.4 % [facility] Lymphocytes Percent Auto 30.1 20 - 40 % [facility] Monocytes Percent Auto 6.7 2 - 11 % [facility] Eosinophils Percent Auto 1.0 0 - 4 % [facility] Basophils Percent Auto 0.8 0 - 2 % [facility] NRBC Pct Auto 0.0 0.0 - 0.2 /100WBC [facility] Neutrophils Absolute Auto 3.8 2.0 - 8.3 x10*3/uL [facility] Imm Gran Abs Auto 0.03 0.00 - 0.03 X10*3/uL [facility] Lymphocytes Absolute Auto 1.9 1.2 - 4.9 X10*3/uL [facility] Monocytes Absolute Auto 0.4 0.1 - 1.2 X10*3/uL [facility] Eosinophils Absolute Auto 0.1 0.0 - 0.4 X10*3/uL [facility] Basophils Absolute Auto 0.1 0.0 - 0.2 X10*3/uL [facility] NRBC Abs Auto 0.000 0.0 - 0.012 X10*3/uL [facility] 04/22/2025 2:18 PM EDT 04/22/2025 2:27 PM EDT Generic External Data Provider LAB BLOOD ORDERAB LES Final Result Performing Organization Address [facility] Co de Phone Number [facility] [address] [place] [phone] * Magnesium (04/22/2025 2:18 PM EDT) Magnesium 1.7 1.6 - 2.6 mg/dL [facility] 04/22/2025 2:18 PM EDT 04/22/2025 2:27 PM EDT Generic External Data Provider LAB BLOOD ORDERAB LES Final Result Performing Organization Address [facility] Co de Phone Number [facility] [address] [place] [phone] * Hepatic Function Panel (04/22/2025 2:18 PM EDT) Bilirubin, Total 0.3 0.0 - 1.0 mg/dL [facility] Bilirubin, Direct 0.1 0.0 - 0.5 mg/dL [facility] Aspartate Amino Transferase 26 5 - 31 U/L [facility] Alanine Aminotransferase 10 0 - 31 U/L [facility] Total Protein 6.8 6.5 - 8.0 g/dL [facility] Albumin Level 4.2 3.5 - 5.0 g/dL [facility] Alkaline Phosphatase 89 39 - 117 U/L [facility] 04/22/2025 2:18 PM EDT 04/22/2025 2:27 PM EDT us Generic External Data Provider LAB BLOOD ORDERAB LES Final Result [facility] [address] [place] [phone] * (ABNORMAL) Basic Metabolic Panel (04/22/2025 2:18 PM EDT) Pathologist [facility] Sodium 140 135 - 145 mmol/L [facility] Potassium 3.7 3.3 - 5.1 mmol/L [facility] Chloride 111(H) 96 - 108 mmol/L [facility] Carbon Dioxide 23 22 - 29 mmol/L [facility] Anion Gap 10(L) 12 - 20 [facility] Urea Nitrogen (BUN) 42(H) 9 - 16 mg/dL [facility] Creatinine, Serum 1.99(H) 0.5 - 1.4 mg/dL [facility] Creatinine Clr Calc Pharmacy 29.3 [facility] Comment:Provided height and weight: 157.48 cm,87.7 kg.eGFR (calculated from the MDRD study equation) and eCrCl(calculated from the Cockcroft-Gault equation) are based ondifferent parameters and may not yield comparable results.If eCrCl result is absurd, please check patient'sheight/weight. Estimated Glomerular Filt Rate 25 [facility] Comment:Chronic Kidney Disea se: Estimated GFR < 60 mL/min/[id number] Kidney Disease: Estimated GFR < 15 mL/min/1.73m2 Glucose 64 60 - 115 mg/dL [facility] Calcium 8.8 8.4 - 10.2 mg/dL [facility] 04/22/2025 2:18 PM EDT 04/22/2025 2:27 PM EDT us Generic External Data Provider LAB BLOOD ORDERAB LES Final Result Performing Organization Address City/State/[place] Co de Phone Number [facility] [address] [place] [phone] * XR Chest 2 Views (04/22/2025 1:34 PM EDT) Anatomical Region Laterality Modality Chest Radiographic Mary ging 04/22/2025 1:34 PM EDT Narrative 04/22/2025 2:41 PM EDT [address] [address] XRay Report Signed Patient: Ese Mendoza MR#: [id number] 8 : 1960 Acct:[id number] Age/Sex: 64 / F ADM Date: 04/22/25 Loc: .ED Attending Dr: Ordering Physician: Bella Lomeli Date of Service: 04/22/25 Procedure(s): XR chest 2V Accession Number(s): [id number] cc: Bella Lomeli; Maranda Serna MD EXAMINATION: [...] Gonzales MD in OV> 04/22/25 1438 DD/ 33 TD/TT: 04/22/25 143 Winter Sports Manager: Procedure Note Donotuseinterpreter, Image - 04/22/[address] [address] XRay Report Signed Patient: Ese MendozaMR#: [id number] 8 : 1960Acct:[id number] Age/Sex: 64 / FADM Date: 04/22/25 Loc: .ED Attending Dr: Ordering Physician: Bella Lomeli Date of Service: 04/22/25 Procedure(s): XR chest 2V Accession Number(s): [id number] cc: Bella Lomeli; Maranda Serna MD EXAMINATION: [...] 04/22/25 1438 DD/ 1334 TD/TT: 04/22/25 143 Winter Sports Manager: [facility] External Provider IMG XR PROCEDURES Final Result * (ABNORMAL) POCT glycosylated hemoglobin (Hgb A1c) (04/12/2025 4:10 PM EDT) Hemoglobin A1C 8.2(A) 4.0 - 6.0 % QC Media Lot # [id number] Lot# Expiration Date Blood Capillary blood specimen / Unknown 04/12/2025 4:10 PM EDT us Maranda Serna MD POINT OF CARE TEST ENTER/EDIT OR DERABLES Final Result * (ABNORMAL) POCT glucose manually resulted (04/12/2025 3:56 PM EDT) Glucose Blood, POC 215(A) 60 - 200 mg/dL QC Media Lot # [id number] Lot# Expiration Date Blood Capillary blood specimen / Unknown 04/12/2025 3:56 PM EDT us Maranda Serna MD POINT OF CARE TEST ENTER/EDIT OR DERABLES Final Result * Albumin, Random Urine W/Creatinine (03/22/2025 3:56 PM EDT) Creatinine, Urine 52.25 mg/dL [facility] Microalbumin Urine 15.0 mg/L [facility] Microalbum Creatinine Ratio Ur 28.7 <30 ug/mg cr [facility] Comment:Albumin/Creatinine R atio Reference Ranges: Normal: < 30 ug/mg creatinine Microalbuminuria: 30 - 300 ug/mg creatinineClinical Albuminuria: > 300 ug/mg creatinine Urine 03/22/2025 3:56 PM EDT 03/22/2025 5:55 PM EDT Maranda Serna MD LAB URINE ORDERABLES Final Resul t [facility] [facility] [address] [place] [phone] * Vitamin B12 (Cobalamin) and Folate Panel, Serum (03/22/2025 3:47 PM EDT) Vitamin B12 810 200 - 900 pg/mL [facility] Comment:NORMAL 200-900 PG/ML INDETERMINATE 160-199 PG/ML DEFICIENT < 160 PG/ML Folate 9.9 > or = 4.0 ng/mL [facility] Comment:Reference Values:> o r = 4.0 ng/mL< 4.0 ng/mL suggests folate deficiency Methotrexate, aminopterin and folinic acid(leucovorin) are chemotherapeutic agents whose molecularstructures are similar to folate; therefore, the Architectfolate assay cannot be used for patients using these drugs. Blood 03/22/2025 3:47 PM EDT 03/22/2025 5:53 PM EDT Maranda Serna MD LAB BLOOD ORDERABLES Final Resul t Performing Organization Address [facility] Co de Phone Number [facility] [address] [place] [phone] * TSH with Reflex to Free T4 (03/22/2025 3:47 PM EDT) TSH reflex Free T4 1.89 0.32 - 4.0 uIU/mL [facility] Blood 03/22/2025 3:47 PM EDT 03/22/2025 5:53 PM EDT Maranda Serna MD LAB BLOOD ORDERABLES Final Resul t Performing Organization Address [facility] Co de Phone Number [facility] [address] [place] [phone] * Respiratory Allergy Profile Region I (03/22/2025 3:47 PM EDT) Mouse Urine Proteins (E72) IgE <0.10 kU/L [facility] Class 0 [facility] Cockroach (I6) IgE <0.10 kU/L [facility] Class 0 [facility] Dermatophagoides farinae (D2) IgE <0.10 kU/L [facility] Class 0 [facility] Cat Dander (E1) IgE <0.10 kU/L [facility] Class 0 [facility] Comment:THIS TEST WAS PERFOR MED AT:[facility] [address] [phone] CRONIN MD Dog Dander (E5) IgE <0.10 kU/L [facility] Class 0 [facility] Comment:THIS TEST WAS PERFOR MED AT:[facility] [address] [phone] CRONIN MD Asim Grass (G6) IgE <0.10 kU/L [facility] Class 0 [facility] Cladosporium herbarum (M2) IgE <0.10 kU/L [facility] Class 0 [facility] Aspergillus Fumigatis (M3) IgE <0.10 kU/L [facility] Class 0 [facility] Alternaria alternata (M6) IgE <0.10 kU/L [facility] Class 0 [facility] Comment:THIS TEST WAS PERFOR MED AT:[facility] [address] [phone] CRONIN MD Mountain [place] (t6) IgE <0.10 kU/L [facility] Class 0 [facility] [place] (T7) IgE <0.10 kU/L [facility] Class 0 [facility] Rain[place] (T10) IgE <0.10 kU/L [facility] Class 0 [facility] [place] (T11) IgE <0.10 kU/L [facility] Class 0 [facility] [place] (T14) IgE <0.10 kU/L [facility] Class 0 [facility] [place] (t15) IgE <0.10 kU/L [facility] Class 0 [facility] [place] (T70) IgE <0.10 kU/L [facility] Class 0 [facility] Common Ragweed (Short) (W1) IgE <0.10 kU/L [facility] Class 0 [facility] Mugwort (w6) IgE <0.10 kU/L [facility] Class 0 [facility] Dermatophagoides pteronyssinus (D1) IgE <0.10 kU/L [facility] Class 0 [facility] Berm[place] Grass (g2) IgE <0.10 kU/L [facility] Class 0 [facility] Penicillium Notatum (M1) IgE <0.10 kU/L [facility] Class 0 [facility] Birch (T3) IgE <0.10 kU/L [facility] Class 0 [facility] Elm (t8) IgE <0.10 kU/L [facility] Class 0 [facility] Maple (Grand) (T1) IgE <0.10 kU/L [facility] Class 0 [facility] Rough Pigweed (W14) IgE <0.10 kU/L [facility] Class 0 [facility] Sheep Beclabito (W18) IgE <0.10 kU/L [facility] Class 0 [facility] Allergen Comment See Below [facility] Comment: Specific Level of AllergenIGE [...] and its analyticalperformance characteristics have been determined by[employer]. It has not been cleared or approvedby the U.S. Food and Drug Administration. This assayhas been validated pursuant to the CLIA regulationsand is used for clinical purposes.THIS TEST WAS PERFORMED AT:[email or web address] [place] [phone] CRONIN MD 03/22/2025 3:47 PM EDT 03/22/2025 5:53 PM EDT us Generic External Data Provider LAB BLOOD ORDERAB LES Final Result Performing Organization Address [facility]/ZIP Co de Phone Number [facility] [address] [place] [phone] * Lipid Panel with Reflex to Direct LDL (03/22/2025 3:47 PM EDT) Triglycerides 96 <150 mg/dL [facility] Comment:Desirable Triglyceri de: less than 150 mg/dLBorderline High Triglyceride 150-199 mg/dLHigh Triglyceride: 200-499 mg/dLVery High Triglyceride: greater than or equal to 5OO mg/dL Cholesterol 124 <200 mg/dL [facility] Comment:Desirable Cholestero l: less than 200 mg/dLBorderline High Cholesterol: 200-239 mg/dLHigh Cholesterol: greater than 239 mg/dL LDL Cholesterol Calculated 52 <100 mg/dL [facility] Comment:Desirable LDL: less than 100 mg/dLNear Optimal/Above Optimal LDL: 110- 129 mg/dLBorderline High LDL: 130-159 mg/dLHigh LDL: 160-189 mg/dLVery High LDL: greater than or equal to 190 mg/dL HDL Cholesterol 53 >40 mg/dL [facility] Comment:Desirable HDL: great er than 40 mg/dL Note: This HDL assay may give artificially low results in patients with liver disease. Blood 03/22/2025 3:47 PM EDT 03/22/2025 5:53 PM EDT us Maranda Serna MD LAB BLOOD ORDERABLES Final Resul t Performing Organization Address City/[facility]/ZIP Co de Phone Number [facility] [address] [place] [phone] * Iron And Total Iron Binding Capacity (03/22/2025 3:47 PM EDT) Iron 46 30 - 160 mcg/dL [facility] Total Iron Binding Capacity 254 228 - 428 mcg/dL [facility] Percent Iron Saturation 18 15 - 50 % [facility] Unsaturated Iron Binding 208 ug/dL [facility] Blood Venous blood specimen / Unknown 03/22/2025 3:47 PM EDT 03/22/2025 5:53 PM EDT us Maranda Serna MD LAB BLOOD ORDERABLES Final Resul t Performing Organization Address [facility]/ZIP Co de Phone Number [facility] [address] [place] [phone] * Immunoglobulin E (03/22/2025 3:47 PM EDT) Immunoglobulin E 3 <ZI=166 kU/L [facility] 03/22/2025 3:47 PM EDT 03/22/2025 5:53 PM EDT us Generic External Data Provider LAB BLOOD ORDERAB LES Final Result Performing Organization Address [facility] Co de Phone Number [facility] [address] [place] [phone] * Ferritin (03/22/2025 3:47 PM EDT) Ferritin 134 10 - 250 ng/mL [facility] Blood Venous blood specimen / Unknown 03/22/2025 3:47 PM EDT 03/22/2025 5:53 PM EDT us Maranda Serna MD LAB BLOOD ORDERABLES Final Resul t Performing Organization Address [facility] Co de Phone Number [facility] [address] [place] [phone] * (ABNORMAL) Comprehensive Metabolic Panel (03/22/2025 3:47 PM EDT) Sodium 139 135 - 145 mmol/L [facility] Potassium 4.3 3.3 - 5.1 mmol/L [facility] Chloride 106 96 - 108 mmol/L [facility] Carbon Dioxide 25 22 - 29 mmol/L [facility] Anion Gap 12 12 - 20 [facility] Urea Nitrogen (BUN) 33(H) 9 - 16 mg/dL [facility] Creatinine, Serum 1.93(H) 0.5 - 1.4 mg/dL [facility] Estimated Glomerular Filt Rate 26 [facility] Comment:Chronic Kidney Disea se: Estimated GFR < 60 mL/min/1.15k6Wrguyt Kidney Disease: Estimated GFR < 15 mL/min/1.73m2 Glucose 79 60 - 115 mg/dL [facility] Calcium 9.1 8.4 - 10.2 mg/dL [facility] Bilirubin, Total 0.3 0.0 - 1.0 mg/dL [facility] Aspartate Amino Transferase 27 5 - 31 U/L [facility] Alanine Aminotransferase 11 0 - 31 U/L [facility] Total Protein 6.9 6.5 - 8.0 g/dL [facility] Albumin Level 4.1 3.5 - 5.0 g/dL [facility] Alkaline Phosphatase 118(H) 39 - 117 U/L [facility] Blood Venous blood specimen / Unknown 03/22/2025 3:47 PM EDT 03/22/2025 5:53 PM EDT us Maranda Serna MD LAB BLOOD ORDERABLES Final Resul t [facility] [address] [place], [place] [phone] * CT Chest w/o Contrast (02/25/2025 11:15 AM EDT) Anatomical Region Laterality Modality Body, Chest Computed Tomogra phy 02/25/2025 11:1 5 AM EDT Narrative 02/25/2025 11:59 AM EDT [address] [address] [address] Scan Report Signed Patient: Ese Mendoza MR#: [id number] 8 : 1960 Acct:[id number] Age/Sex: 64 / F ADM Date: 02/25/25 Loc: HO.CT Attending Dr: Maranda Serna MD Ordering Physician: Maranda Serna MD Date of Service: 02/25/25 Procedure(s): CT chest wo IV con Accession Number(s): [id number] cc: Maranda Serna MD Report Number: [id number]: Total DLP = 183.00 mGy-cm EXAMINATION: CT [...] reconstruction technique DLP: 183 mGy centimeter. FINDINGS: IMAGE ASSEMBLER: Large body habitus. Vascular clips right upper [...] 02/25/25 1155 DD/ 1115 TD/TT: 02/25/25 1124 Winter Sports Manager: Procedure Note Donotuseinterpreter, Image - 02/25/[address] [place] [address] [address] Scan Report Signed Patient: Ese MendozaMR#: [id number] 8 : 1960Acct:[id number] Age/Sex: 64 / FADM Date: 02/25/25 Loc: .CT Attending Dr: Maranda Serna MD Ordering Physician: Maranda Serna MD Date of Service: 02/25/25 Procedure(s): CT chest wo IV con Accession Number(s): [id number] cc: Maranda Serna MD Report Number: [id number]: Total DLP = 183.00 mGy-cm EXAMINATION: CT [...] reconstruction technique DLP: 183 mGy centimeter. FINDINGS: IMAGE ASSEMBLER: Large body habitus. Vascular clips right upper [...] 02/25/25 1155 DD/ 1115 TD/TT: 02/25/25 1124 Winter Sports Manager: Maranda Serna MD IMG CT PROCEDURES Edited Result - Final * BI Mammogram Screening Tomosynthesis Bilateral (02/10/2024 2:40 PM EDT) Anatomical Region Laterality Modality Breast Bilateral Mammography 02/10/2024 2:40 PM EDT Narrative 02/22/2024 3:43 PM EDT [facility] [address] [place], [place] [address] Mammography Report Signed Patient: Ese Mendoza MR#: [id number] 8 : 1960 Acct:[id number] Age/Sex: 63 / F ADM Date: 02/10/24 Loc: HO.MAMMO Attending Dr: Maranad Serna MD Ordering Physician: Maranda Serna MD Results: 1Negative Date of Service: 02/10/24 Follow Up: 1 Year From Orig inal Mammogram Procedure(s): MM tomosynthesis screening BI Accession Number(s): [id number] cc: Maranda Serna MD EXAMINATION: MM SCREENING [...] present. These include several, bilateral, benign macrocalcifications wire rope sales representative of fat necrosis. MM/MM tomosynthesis [...] in OV> 02/22/24 1539 DD/ 1440 TD/TT: Winter Sports Manager: Procedure Note Donotuseinterpreter, Image - [facility] [address] [place], [place] [address] Mammography Report Signed Patient: Ese MendozaMR#: [id number] 8 : 1960Acct:[id number] Age/Sex: 63 / FADM Date: 02/10/24 Loc: GUILLERMINA.MAMMDavid Attending Dr: Maranda Serna MD Ordering Physician: Maranda Serna MDResults: 1Negative Date of Service: 02/10/24Follow Up: 1 Year From [facility] Mamm[facility] Procedure(s): MM tomosynthesis screening BI Accession Number(s): [id number] cc: Maranda Serna MD EXAMINATION: MM SCREENING [...] present. These include several, bilateral, benign macrocalcifications wire rope sales representative of fat necrosis. MM/MM tomosynthesis [...] in OV> 02/22/24 1539 DD/ 1440 TD/TT: Winter Sports Manager: Maranda Serna MD IMG BI PROCEDURES Edited Result - Final * (ABNORMAL) Hm Colonoscopy (07/07/2022) Colonoscopy Abnormal(A ) Normal [facility] External Provider HEALTH MAINTENANCE Final Result from Last 3 Months or Most Recently Relevant to Health Maintenance Insurance [facility] C3 Care Teams Inweaver Relationship Specialty Start Date End Date Maranda Serna MD [address] [place] [phone] PCP - General Family Medicine 08/01/21
--- OUTSIDE RECORDS SUMMARY | 2025-05-20 15:09 | XMS_ITS | Encounter Summary ---
Author Organization Formerly [facility] Address [address] [place] [address] Care Team Providers Care Dump Truck Driver Name Role Phone Viet Sánchez Unavailable [phone] Viet Sánchez Primary Care Provider Encounter Details Date Type Department Care Team (Late st Contact Info) Description 11/09/2019 Prep for Surgery OPHTHALMOLOGY [address] [place] [phone] Holland Hunt MD [address] [facility] [address] [facility] [place] [phone] Social History Tobacco Use Types Packs/Day Years [...] on filedocumented in this encounter Care Teams Dump Truck Driver Relationship Specialty Start Date End Date Viet Sánchez PA [address] [place] [address] PCP - General 06/18/18 Viet Sánchez PA [address] [place] [phone] 06/18/18 documented as of this encounter
--- OUTSIDE RECORDS SUMMARY | 2025-05-20 15:09 | XMS_ITS | Clinical Summary ---
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 - Will obtain lab work. Also curious to see radiographic imaging of the hands, feets, SI and lumbar spine. Will obtain interval history from flanging machine operator Karlee Le. - RTC in [...] polyneuropathy, with long-term current use of insulin ([facility]) POCT HEMOGLOBIN, A1C Routine 02/09/2019 8:10 AM EDT Type 2 diabetes mellitus with diabetic polyneuropathy, with long-term current use of insulin ([facility]) HIV COMBO ANTIGEN/ANTIBODY Routine 10/06/2018 3:59 PM EST Polyarthralgia from Last 3 Months or Most Recently Relevant to Health Maintenance Results * Microalbumin/creatinine ratio (02/09/2019 10:15 AM EDT) Microalbumin/Creat Ratio 20 2 - 20 mg/g Creat 02/09/2019 11:55 AM EDT [facility] Creatinine, Urine, Random 101 mg/dL 02/09/2019 11:55 AM EDT [facility] Comment: The laboratory does not have established reference ranges for this test. Interpretation of results is at the discretion of the ordering physician. Urine specimen (specimen) Urine specimen obtained by clean catch procedure / Unknown Non-blood Collection / Unknown 02/09/2019 10:15 AM EDT 02/09/2019 10:15 AM EDT us Keke Katz APRN LAB URINE ORDERABLES Final Res ult [facility] [address] [place] [address], [place] [phone] * POCT hemoglobin, A1c (02/09/2019 8:10 AM EDT) POCT Hemoglobin A1C 9.2 4.4 - 6.4 % Blood specimen (specimen) 02/09/2019 8:10 AM EDT us Keke Katz NURSE PRACTITIONER PHYSICIAN ASSISTANT POCT ORDERABLES NO CHARGE Machelle l Result * HIV combo antigen/antibody (10/06/2018 3:59 PM EST) HIV Combo AB/AG Negative Negative 10/06/2018 6:02 PM EST [facility] Blood specimen (specimen) Venous blood specimen / Unknown Venipuncture / Unknown 10/06/2018 3:59 PM EST 10/06/2018 3:59 PM EST Narrative [facility] - 10/06/2018 6:02 PM EST This test is a 4th generation HIV Antigen-Antibody Combination assay, using a chemiluminescent microparticle immunoassay, for the simultaneous qualitative detection of human immuno- deficiency virus (HIV) p24 antigen and antibodies to HIV type 1 (HIV-1) and/or HIV type 2 (HIV-2) in human serum or plasma. The [employer] Staff Toxicologist HIV Ag/Ab Combo assay is intended to [...] BLOOD ORDERABLES NO ST AT Final Result [facility] [address] [place] [address], [place] [phone] from Last 3 Months or Most Recently Relevant to Health Maintenance Insurance MEDICAID [place] D Care Teams Backup Engineer Relationship Specialty Start Date End Date Viet Sánchez PA [address] [place] [address] PCP - General Family Medicine 07/22/18
--- OUTSIDE RECORDS SUMMARY | 2025-05-20 15:09 | XMS_ITS | Encounter Summary ---
Author Organization [facility] Address [address] [address] Phone Care Team Providers Care Rod Straightener Name Role Phone Maranda Serna MD Primary Care Provider [phone] Encounter Details Date Type Department Care Team (Late st Contact Info) Description 01/25/2025 Office Communication [facility] [address] [place] [phone] Marci Gleason ARNP [address] [phone] Social History Tobacco Use Types Packs/Day Years Used Date Smoking Tobacco: Never Smokeless Tobacco: Never Alcohol Use Standard Drinks/Week Comments Yes 0 (1 standard drink = 0.6 oz pure alcohol) Intermittently Hot Amanda. Tea with [place] only if sick Comments Unknown Sex and Gender Information Value Date Recorded Sex Assigned at Not on file Legal Sex Female 5:18 PM EST Gender Identity Not on file Sexual Orientation Not on file documented as of this encounter Plan of Treatment Upcoming Encounters Date Type Department Care Team (Late st Contact Info) Description 06/10/2025 Orders Only [facility] [address] [phone] Marci Gleason ARNP [address] [address] Stage 3b chronic kidney disease (HCC); Anemia in chronic kidney disease; Proteinuria, not otherwise specified 07/26/2025 2:00 PM EDT Office Visit [facility] [address] [phone] Marci Gleason ARNP [address] [phone] documented as of this encounter Visit Diagnoses Not on filedocumented in this encounter Care Teams Rod Straightener Relationship Specialty Start Date End Date Maranda Serna MD [address] [place] [phone] PCP - General Family Medicine 08/24/21 documented as of this encounter
--- OUTSIDE RECORDS SUMMARY | 2025-05-20 15:09 | XMS_ITS | Data Portability ---
Author Organization [place] - Clarence Sen MD, [facility] Address [address] [place] [id number] Assessment No assessment recorded. Plan of Treatment Reminders Order Date Submit Date Provider Last Modified By Organization Details Last Modified Time Details Appointments None recorded. Lab urinalysis, complete 2016 017 [email or web address] In-House Results, For Internal Use Only, Do Not Delete/merge, [id number] 7 11:38:12 urinalysis, complete 2016 017 tmcclung In-House Results, For Internal Use Only, Do Not Delete/merge, [id number] 7 11:38:12 urinalysis, complete 2016 017 tmcclung In-House Results, For Internal Use Only, Do Not Delete/merge, [id number] 7 13:16:50 urinalysis, complete 2016 017 tmcclung In-House Results, For Internal Use Only, Do Not Delete/merge, [id number] 7 13:16:50 urinalysis, complete 2016 017 tmcclung In-House Results, For Internal Use Only, Do Not Delete/merge, [id number] 7 14:28:33 urinalysis, complete 2016 017 tmcclung In-House Results, For Internal Use Only, Do Not Delete/merge, [id number] 7 14:28:33 Referral None recorded. Procedures None recorded. Surgeries None recorded. Imaging US, retroperito neum 06/27/ 2017 06/27/2 017 tmcclung In-House Results, For Internal Use Only, Do Not Delete/merge, [id number] 7 14:28:33 Medication Orders None recorded. Patient TargetsNo targets recorded. Patient Instructions Encounter Date Encounter Id Patient Instructions Last Modified By Organization Details Last Modified Time 05/06/2017 [id number] Urinary Tract Infection (UTI) in Women: Care Instructions [email or web address] Not available 05/09/2017 14:28:33 bladder training : care instructions [email or web address] Not available 05/09/2017 14:28:33 kegel exercises: care instructions [email or web address] Not available 05/09/2017 14:28:33 Stress Incontinence: Care Instructions [email or web address] Not available 05/09/2017 14:28:33 Urge Incontinence: Care Instructions [email or web address] Not available 05/09/2017 14:28:33 07/30/2017 [id number] Urinary Tract Infection (UTI) in Women: Care Instructions [email or web address] Not available 08/04/2017 13:16:50 bladder training : care instructions [email or web address] Not available 08/04/2017 13:16:50 kegel exercises: care instructions tmcclung Not available 08/04/2017 13:16:50 Stress Incontinence: Care Instructions [email or web address] Not available 08/04/2017 13:16:50 Urge Incontinence: Care Instructions [email or web address] Not available 08/04/2017 13:16:50 09/29/2017 [id number] Urinary Tract Infection (UTI) in Women: Care Instructions [email or web address] Not available 10/01/2017 12:43:07 Reason for Referral None Reported. Results Created Date Observation Date Name Description Value Unit Range Abnormal Flag Note LastModifiedBy Organization Detail LastModifiedTime 09/29/20 17 09/29/2017 urina lysis , compl ete Leukocytes Negati ve Not Available In-House Results For Internal Use Only, Do Not Delete/merge, [id number] 09/29/2017 18:46:44 09/29/20 17 09/29/2017 urina lysis , compl ete Nitrite negati ve Not Available In-House Results For Internal Use Only, Do Not Delete/merge, [id number] 09/29/2017 18:46:44 09/29/20 17 09/29/2017 urina lysis [...] 09/29/2017 urina lysis , compl ete Specific [place] 1.020 Not Available In-[place] se Results For [...] 09/29/2017 urina lysis , compl ete Specific [place] 1.025 Not Available In-[place] se Results For [...] 07/30/2017 urina lysis , compl ete Specific [place] 1.020 Not Available In-[place] se Results For [...] 07/30/2017 urina lysis , compl ete Specific [place] 1.030 Not Available In-[place] se Results For [...] 05/06/2017 urina lysis , compl ete Specific [place] 1.015 Not Available In-[place] Results For [...] 05/06/2017 urina lysis , compl ete Specific [place] 1.025 Not Available In-[place] se Results For [...] routine FINAL REPORT abnormal Not Available [facility] ([facility]) [address] [place], [address], 05/08/2017 16:19:18 05/06/2005/08/2017 cultu re, urine result 1 KLEBSI MONICA PNEUMO NIAE abnormal GREAT ER THAN 100,0 00 COLON Y FORMI NG UNITS PER ML Not Available [facility] ([facility]) [address] [place], [address], 05/08/2017 16:19:18 05/06/20 17 05/08/2017 cultu re, [...] THOPR IM/ANDRADE LFA S Not Available [facility] ([facility]) [address] [place], [address], 05/08/2017 16:19:18 07/30/20 17 08/01/2017 cultu re, urine urine culture, routine FINAL REPORT abnormal Not Available [facility] ([facility]) [address] [place], [address], 08/01/2017 16:22:57 07/30/20 17 08/01/2017 cultu re, urine result 1 KLEBSI MONICA PNEUMO NIAE abnormal Great er than 100,0 00 colon y formi ng units per mL Not Available [facility] ([facility]) [address] [place], [address], 08/01/2017 16:22:57 07/30/20 17 08/01/2017 cultu re, [...] thopr im/Andrade lfa S Not Available [facility] ([facility]) [address], [place], [address], 08/01/2017 16:22:57 05/15/20 17 05/15/2017 US, renal No observ ation record ed. [email or web address] [facility] [address] [facility], [place], [address], 07/30/2017 17:43:40 07/30/20 17 05/15/2017 US, retro perit oneum No observ ation record ed. [email or web address] Not Available 2016 11:33:32 07/30/20 17 05/15/2017 XR, kidne y + urete r + bladd er No observ ation record ed. [email or web address] Not Available 2016 11:33:32 Result Notes None [...] Updated DateTime 05/06/2017 157.48 cm 37.5 kg/m2 94846.44 g 84 /min 98/41 mm[Hg] Ashley Sen MD 05/06/2017 15:17:41 Date Recorded Body height Body mass index (BMI) Body weight Heart rate Systolic And Diastolic Provider Name and Address Organization Details Last Updated DateTime 07/30/2017 160.02 cm 35.8 kg/m2 56158.66 g 87 /min 113/49 mm[Hg] Ashley Sen MD 07/30/2017 15:05:21 Date Recorded Body height Body mass index (BMI) Body weight Heart rate Systolic And Diastolic Provider Name and Address Organization Details Last Updated DateTime 09/29/2017 160.02 cm 35.8 kg/m2 35201.66 g 98 /min 107/51 mm[Hg] Ashley Sen [...] Prostate Cancer N Alzheimer's N Stroke N Heart Attack N Depression N Hepatitis A / B / C [...] SNOMED-CT Code Diagnosis ICD10 Code Diagnosis Note [id number] MD ERIK Denis [place] [address] [place] [address] 05/06/2017 14:29:22 05/06/2017 17:13:49 Mixed urinary incontinence 766789060 N39.46 Incomplete emptying of urinary bladder 207577870 R39.14 Urinary tr act infectious disease 27372183 N39.0 [id number] MD ERIK Denis [place] [address] [place] [address] 07/30/2017 14:16:01 07/30/2017 17:45:30 Mixed urinary incontinence 492623820 N39.46 Cystitis 73587179 N30.90 Urinary tr act infectious disease 68430243 N39.0 [id number] MD ERIK Denis [address] [place] [address] 09/29/2017 17:41:48 09/30/2017 11:37:17 Urinary tract infectious disease 88821263 N39.0 Health Concerns Section Related Observation LastModified by Organization Detai ls LastModified Time None Recorded Concern Status LastModified by Organization Details LastModified Time None Recorded Advance Directives Directive None Recorded Payers Insurance Date Sequence Insurance Name Policy Number Policy Singer Covered Member ID Singer Member ID Guarantor Name 09/26/2017 1 [facility]MEDICAID [place]PLACEMENT - HMO) [id number] Ese Mendoza [id number] Ese Mendoza OBGyn Episode No OBEpisode recorded.
--- OUTSIDE RECORDS SUMMARY | 2025-05-20 15:09 | XMS_ITS | Patient Health Record ---
Author Organization [employer]. Address [address] [facility] [id number] [place] [address] Care Team Providers Care Dean Of Students Name Role Phone Larisa Saldana Primary Care [...] diabetes mellitus without complications (E11.9) Active confirmed 232968110 Problem Type 2 diabetes mellitus with diabetic polyneuropathy (E11.42) Active confirmed 28691343 Problem Other chronic pain (G89.29) Active confirmed 08638704 Problem Age-related nuclear cataract, bilateral (H25.13) Active confirmed Nuclear senile cataract (850627784) Problem Diabetes (E11.9) Active confirmed Type II diabetes mellitus without complication (648997927) Problem Dyslipidemia (E78.5) Active confirmed 723985389 Problem HTN (hypertension) (I10) Active confirmed Hypertension (41762562) Problem Arthritis (M19.90) Active confirmed 372 3001 Problem FDC current use of insulin (Z79.4) Active confirmed 392867155 Problem Controlled diabetes mellitus with diabetic neuropathy (E11.40) Active confirmed Diabetic peripheral neuropathy associated with type 2 diabetes mellitus (5325804314244) Problem Type 2 diabetes mellitus with mild nonproliferative diabetic retinopathy without macular edema, bilateral (E11.3293) Active confirmed Mild nonproliferative retinopathy due to type 2 diabetes mellitus (286023091062099) Problem Left retinal detachment (H33.22) Active confirmed Serous r etinal detachment (62111900) Problem Menopausal and postmenopausal disorder (N95.9) Active confirmed 673591510 PLAN OF TREATMENT Pending Test Test Name [...] End Date MACKENZIE Hughes [address] [place] [address] [id number] Ese Mendoza Self - patient is the insured MEDICAID DENTAL [address] [place] [id number] Ese Mendoza Self - patient is the [...]
== END 2025-05-20 15:42 | disposition home or self-care (01) ==
LOC: HO.HPSW 15:05
PROVIDERS: PCP Family Medicine; Visit Provider Nurse Practitioner Family
DX: J45.909 Unspecified asthma, uncomplicated (principal); Z91.09 Other allergy status, other than to drugs and biological substances; R91.1 Solitary pulmonary nodule
CPT/HCPCS: 99213

== ENCOUNTER → 2025-05-20 15:04 | Outpatient (BNVA) | payer MEDICAID, SELFPAY | PROVIDERS: PCP Family Medicine; Visit Provider Nurse Practitioner Family | DX: R91.1 Solitary pulmonary nodule (principal); Z91.09 Other allergy status, other than to drugs and biological substances; J45.909 Unspecified asthma, uncomplicated | CPT/HCPCS: 99212 ==

== ENCOUNTER 2025-05-24 12:57 | Outpatient (AMB) | payer MEDICAID, SELFPAY ==
[2025-05-24 13:03] VITALS: BP 110/64; PULSE 89; BMI 36.2
--- NOTE | 2025-05-24 13:03 | A.OFFVIS_ITS ---
Vital Signs 05/24/25 13:03 Height 5 ft 2 in Weight 197 lb 15.602 oz BMI 36.2 BP 110/64 Blood Pressure Location Lt brachial Position Sitting Pulse 89 Pulse Source Monitor Intake Visit Reasons: 4 mth f/up/ Preop colonoscopy Intake Note: 4 mth f/up/ pre-op Information Technology Auditor Required: No Accompanied by: Self / Same As Patient Allergies Pork/Porcine Containing Products (Pork/Porcine Product Derivatives) Allergy (Mild, Verified 05/20/25 15:11) SORES /ITCHING Seasonal Allergies Allergy (Mild, Verified 05/20/25 15:11) Itching nickel Adverse Reaction (Verified 05/20/25 15:11) Swelling and irritation Medication List - Last Reconciled 05/24/25 by Elmer Rosa NP acetaminophen (Tylenol Extra Strength) 500 mg PO Q6H PRN albuterol sulfate 90 mcg/actuation 2 puffs inhalation Q4-6H PRN ammonium lactate 12% 1 appl topical DAILY ascorbic acid (vitamin C) 1,000 mg PO DAILY aspirin (St Vladimir Aspirin) 81 mg PO DAILY atorvastatin 80 mg PO DAILY blood pressure monitor As directed blood sugar diagnostic (FreeStyle Lite Strips) As directed carvedilol 6.25 mg See Protocol PO BID clopidogrel 75 mg PO DAILY dapagliflozin propanediol (Farxiga) 5 mg PO QAM digestive enzymes 1 cap PO BID diphenhydramine-acetaminophen 25-500 mg (Tylenol PM Extra Strength) 1 tab PO BEDTIME PRN ferrous sulfate 325 mg PO Q OTHER DAY fesoterodine ER (Toviaz) 8 mg PO DAILY fluticasone furoate-vilanterol 100-25 mcg/dose (Breo Ellipta) 1 inh inhalation DAILY fluticasone propionate 50 mcg/actuation 1 spray intranasal DAILY PRN incontinence pad, liner, disp As directed: change pads Q2-3 hours/PRN insulin degludec (Tresiba FlexTouch U-100 insulin) 35 units subcut BEDTIME PRN Held on 11/29/24. Instructions: Resume on 12/01/24. insulin lispro 45 units subcut USEASDIRECTD isosorbide mononitrate ER 30 mg PO DAILY levalbuterol HCl 1.25 mg (3 mL) inhalation Q4H PRN omega 5-zlf-ouo-fish oil 1,000 (120-180) mg (Fish Oil) 1 cap PO DAILY omeprazole 40 mg (2 x 20 mg) PO DAILY pen needle, diabetic (Easy Touch) As directed prednisolone acetate 1% (Pred Forte) 1 drp ophthalmic-Left QID simethicone (Gas Relief (simethicone)) 125 mg PO BID-TID PRN vitamin B complex 1 tab PO DAILY HPI Comments Details: This is a 64-year-old female patient coming in for a follow-up visit. Patient with a history of diabetes, chronic kidney disease, hypertension, hyperlipidemia, and coronary artery disease. Today, patient reports feeling well overall and denies any cardiac symptoms of exertional chest pain, shortness of breath, palpitations, dizziness, orthopnea, PND, leg edema, presyncope, or syncope. Patient states that she did not continue her cardiac rehab due to limited time in her hands, however, patient has been trying to stay active independently as possible. Patient states she has been compliant with all her medications. Patient is however asking if she needs to be on her statins forever. PFSH Medical History Pancreatic insufficiency Pancreatic insufficiency Tubular adenoma CKD (chronic kidney disease) Anemia GERD (gastroesophageal reflux disease) Renal cyst Bladder prolapse, female, acquired Hx of gastric ulcer IBS (irritable bowel syndrome) Kidney stones High cholesterol Diabetes Surgical History Hx of endoscopy Hx of colonoscopy History of partial hysterectomy Hx of breast reduction, elective Hx of cholecystectomy Family History Father Heart attack DM2 (diabetes mellitus, type 2) Mother DM2 (diabetes mellitus, type 2) COPD (chronic obstructive pulmonary disease) Other No pertinent family history Social History Household Members: Family Housing: House Do you presently have visiting nurse or other home services: No Unable to assess alcohol history related to: Unknown Alcohol intake: never Patient Tobacco Use Status: Never used Tobacco Second Hand Smoke Exposure: No service: No Review of Systems Const Denies chills, Denies fatigue, Denies fever(s), Denies frequent falls, Denies weakness, Denies weight gain and Denies weight loss ENT Denies dizziness Card Denies chest pain, Denies leg edema, Denies lightheadedness, Denies palpitations, Denies dyspnea and Denies dyspnea on exertion Resp Denies cough, Denies dyspnea and Denies dyspnea on exertion GI Denies hematochezia Musc Denies abnormal gait, Denies muscle weakness, Denies numbness, Denies radiating pain into limb and Denies tingling Neuro Denies abnormal gait, Denies dizziness, Denies frequent falls, Denies numbness, Denies tingling and Denies weakness Endo Denies fatigue and Denies palpitations Physical Exam Vital Signs: Last Vital Signs Pulse 89 05/24/25 13:03 BP 110/64 05/24/25 13:03 BMI result Body Mass Index 36.2 Const General: cooperative, healthy appearing, comfortable and no acute distress Orientation/consciousness: patient oriented x3 HEENT Head: Yes normal to inspection Neck Neck: Yes normal visual inspection, Yes trachea midline and Yes supple Chest Chest palpation & inspection: normal inspection of the chest Resp Effort & Inspection: normal respiratory effort Auscultation: clear to auscultation bilaterally, no crackles, no rales, no rhonchi and no wheezes Cardio Jugular venous distension: no JVD Palpation: normal PMI Rate: regular rate Rhythm: regular rhythm Heart sounds: S1 normal heart sound present, S2 normal heart sound present, no click, no gallops, no murmurs and no rubs Peripheral pulses: Peripheral pulses 2+ throughout GI Inspection: Yes normal to inspection Palpation (GI): Soft to palpation Auscultation: normal bowel sounds Skin General skin exam: no rashes or lesions noted Neuro General: patient oriented x3 Extrem General: Yes normal to inspection, No no pedal edema and No calf tenderness Psych Appearance: grossly normal Mental Status: mental status grossly normal Speech and movement: Normal speech and movement present Office Procedures EKG Details: EKG today showed normal sinus rhythm, 89 beats per minute, low-voltage QRS, normal [place], [place]. [address]-[id number], Complete Assessment & Plan Assessment & Plan (1) Preop cardiovascular exam: Code(s): Z01.810 - Encounter for preprocedural cardiovascular examination Plan: Patient is planning to undergo colonoscopy. Patient can proceed with the colonoscopy with the consideration that patient is at an intermediate cardiac risk. Aspirin should be continued while Plavix can be held 5 days prior to the procedure and resumed after surgery. (2) CAD (coronary artery disease): Code(s): I25.10 - Atherosclerotic heart disease of [place] coronary artery without angina pectoris Category: Medical Plan: 11/30/2024- Cardiac catheterization showed [id number] distal LAD disease with severe distal stenosis and severe OM1 stenosis, small caliber vessels with severe disease and not amenable to stenting therefore was started on medical management with dual antiplatelet therapy. 12/01/2024- echo showed LVEF at 57%, with LV wall thickness in the pattern of concentric hypertrophy, central venous pressure mildly elevated, with no obvious wall motion abnormalities. Continue aspirin and Plavix therapy. Continue high-dose statin therapy with an LDL goal less than 70. We will obtain a lipid profile. Continue carvedilol and Imdur therapy as well. Blood pressure within goal. Advised monitoring blood pressures at home. Heart rate stable at this time. (3) S/P cardiac cath: Code(s): Z98.890 - Other specified postprocedural states Category: Surgical Plan: As above. (4) Diabetes: Code(s): E11.9 - Type 2 diabetes mellitus without complications Category: Medical Plan: Insulin-dependent. Most recent A1c 8.2%. States blood sugars stable at home. Continue aggressive management of diabetes. Ideally A1c less than 7.0. Advised heart healthy diet, regular exercise, losing weight, and aggressive management of her vascular risk factors. Follow up with Dr. Schroeder in 5 months.. In the interim, patient will call us with any concerns or change in symptoms. Advised patient to seek ER care in case of exertional chest pain not resolved with rest. This note was generated using voice recognition software. While every effort has been made to ensure accuracy and proper health care analyst, there may be occasional errors that could affect the content or meaning of the described symptoms. Orders: Orders AMB EKG-In Office Today Z01.810 - Encounter for preprocedural cardiovascular examination Coding Level of Care Code Est Pt Level 4 (60289) Complex EM visit Add On G2211 Diagnoses Preop cardiovascular exam Z01.810 CAD (coronary artery disease) I25.10 S/P cardiac cath Z98.890 Diabetes E11.9 CPT Codes EKG - CPT: 81840-Gndkwleurqgjmwpcd, Complete ([id number]) Time Spent (min) 32 Comment Time spent in reviewing the chart, test results, assessment, counseling and documentation.
--- OUTSIDE RECORDS SUMMARY | 2025-05-24 14:11 | XMS_ITS | Encounter Summary ---
Author Organization [facility] Address [address] [address] Phone Care Team Providers Care Garment Manufacturing Supervisor Name Role Phone Maranda Serna MD Primary Care Provider [phone] Encounter Details Date Type Department Care Team (Late st Contact Info) Description 01/25/2025 Office Communication [facility] [address] [place] [phone] Marci Gleason ARNP [address] [address] Social History Tobacco Use Types Packs/Day Years Used Date Smoking Tobacco: Never Smokeless Tobacco: Never Alcohol Use Standard Drinks/Week Comments Yes 0 (1 standard drink = 0.6 oz pure alcohol) Intermittently Hot Amanda. Tea with [place] only if sick Comments Unknown Sex and Gender Information Value Date Recorded Sex Assigned at Not on file Legal Sex Female 5:18 PM EST Gender Identity Not on file Sexual Orientation Not on file documented as of this encounter Plan of Treatment Upcoming Encounters Date Type Department Care Team (Late st Contact Info) Description 06/10/2025 Orders Only [facility] [address] [address] Marci Gleason ARNP [address] [address] Stage 3b chronic kidney disease (HCC); Anemia in chronic kidney disease; Proteinuria, not otherwise specified 07/26/2025 2:00 PM EDT Office Visit [facility] [address] [phone] Marci Gleason ARNP [address] [address] documented as of this encounter Visit Diagnoses Not on filedocumented in this encounter Care Teams Garment Manufacturing Supervisor Relationship Specialty Start Date End Date Maranda Serna MD [address] [place] [address] PCP - General Family Medicine 08/24/21 documented as of this encounter
--- OUTSIDE RECORDS SUMMARY | 2025-05-24 14:11 | XMS_ITS | Clinical Summary ---
Author Organization [facility] Address [address] [place] [address] Care Team Providers Care Substance Abuse Prevention Coordinator Name Role Phone ChapispriscillaViet Primary Care Provider [phone] Allergies Active Allergy Reactions Criticality Noted Date [...] age to complete this topic Care Teams Substance Abuse Prevention Coordinator Relationship Specialty Start Date End Date Viet Sánchez [address] [place] [address] PCP - General Medical Services 06/19/18
--- OUTSIDE RECORDS SUMMARY | 2025-05-24 14:11 | XMS_ITS | Encounter Summary ---
Author Organization [facility] Address [address] [place] [address] Care Team Providers Care Mold Sprayer Name Role Phone Viet Sánchez Unavailable [phone] Viet Sánchez Primary Care Provider Encounter Details Date Type Department Care Team (Late st Contact Info) Description 11/09/2019 Prep for Surgery OPHTHALMOLOGY [address] [place] [address] Holland Hunt MD [address] [facility] [address] [facility] [place] [phone] Social History Tobacco Use Types Packs/Day Years [...] on filedocumented in this encounter Care Teams Mold Sprayer Relationship Specialty Start Date End Date Viet Sánchez PA [address] [place] [address] PCP - General 06/18/18 Viet Sánchez PA [address] [place] [phone] 06/18/18 documented as of this encounter
--- OUTSIDE RECORDS SUMMARY | 2025-05-24 14:11 | XMS_ITS | Clinical Summary ---
Author Organization [facility] Address [address] [place] [address] Phone Care Team Providers Care Echocardiography Tech Name Role Phone Machelle Swann MD Primary Care Provider [phone] Allergies Active Allergy Reactions Criticality Noted Date [...] 42 mcg (0.06 %) nasal spray 1 [place] by Nasal route. 09/24/20 Active omega-3 acid [...] osteoarthritis; plantar fasciitis - referred to a wall cleaner; waiting for an appt - check the [...] hyperkalemia and cough -Currently prescribed Dapagliflozin from collection systems consultant -Follow up in 3-6 mo, sooner if [...] Assessment & Plan: - followed by [facility] - no anatomical pancreatic abnormality on MRI in Dec 2022 - continue vegan / plant-based pancreatic enzyme Right knee pain 12/16/2022 Allergic rhinitis 10/12/2022 Anemia 10/12/2022 Overview (08/25/2024): Last Assessment & Plan: - likely due to chronic diseaes - Hx iron infusion - 12/24/22 Hgb 11.7, Hematocrit 35.7 Chronic idiopathic constipation 10/12/2022 Overview (08/25/2024): Last Assessment & Plan: -Followed by [facility], last seen 08/06/22 -EGD and Colonoscopy on 12/24/21; showed Tubular Adenoma, she was recommended to repeat in 3 years. - pt has been using castor oil - continue trying fiber-rich diet and increasing physical activity as tolerated. - continue Senakot as prescribed Chronic kidney disease, stag e III (moderate) ([facility] V24, [facility] V28) 10/12/2022 Overview (08/25/2024): Last Assessment & Plan: - Packaging Operator, Dr. 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 Tsai is prescribing Dapagliflozin (Farxiga) - Previously on Lisinopril, but was disccontinued due to cough / K - Avoid nephrotoxic drugs - Renal dose meds Gastroesophageal reflux disease 10/12/2022 Overview (08/25/2024): Last Assessment & Plan: -s/p EGD 12/24/21 -followed by [facility] -continue omeprazole 40mg daily -previously tried pantoprazole and lansoprazole; pt prefers omeprazole. -previously prescribed famotidine. Max dose for her renal function is 20 mg daily. Pt does not take it regularly. Irritable bowel syndrome 10/12/2022 Overview (08/25/2024): Last Assessment & Plan: - followed by [facility] - continue current treatment plan per GI - low FODMAP diet - pt is prescribed simethicone, Sennakot, citrucel, but does not like taking it regularly Osteopenia 10/12/2022 Atrial fibrillation ([facility] V24, [facility] V28) 0 12/25/2021 Cobalamin deficiency 12/25/2021 Diabetic retinopathy ([facility] V[facility], [facility] V28) 12/25/2021 Nephrolithiasis 12/25/2021 Overview (08/25/2024): Last Assessment & Plan: - seen by urologist, last visit on Vitamin D deficiency 12/25/2021 Diabetic peripheral neuropat hy associated with type 2 diabetes mellitus ([facility] V24, [facility] V28) 11/22/2019 Nonrheumatic mitral valve regurgitation 11/09/20 Nonrheumatic tricuspid valve regurgitation 11/09 Obstructive sleep apnea syndrome 11/09/2019 Overview (08/25/2024): Last Assessment & Plan: - Pt does not feel comfortable with CPAP SOB (shortness of breath) 11/09/2019 Type 2 diabetes mellitus wit hout complication ([facility] V24, [facility] V28) 11/09/2019 Arthritis 03/03/2019 Chronic cough 01/26/2019 Moderate persistent asthma with acute exacerbati on 01/26/2019 Pulmonary hypertension ([facility] V24, [facility] V28 ) 12/31/2018 Pulmonary arterial hypertension ([facility] V24, [facility] V28) 11/19/2018 Ulcer of foot ([facility] V24, [facility] V28) 011 Encounters Date Type Department Care Team Description 05/19/2025 2:15 PM EDT Office Visit Orthopedic Surgery [facility] [address] [address] Damien Centeno DPM Controlled type 2 diabetes mellitus with diabetic polyneuropathy, without long-term current use of insulin ([facility] V24, [facility] V28) (Primary Dx); Capsulitis of metatarsophalangeal (MTP) joint of right foot; Arthritis of both midfeet; Pain in toes of both feet; Onychomycosis; Callus 03/17/2025 2:00 PM EDT Office Visit Orthopedic Surgery [facility] [address] [phone] Damien Centeno DPM Controlled type 2 diabetes with neuropathy ([facility] V24, [facility] V28) (Primary Dx); Capsulitis of metatarsophalangeal (MTP) [...] PM EDT Office Visit Orthopedic Surgery - [address] [phone] Damien Centeno DPM [address] [address] Health Maintenance Due Date Last Done Comments [...] (12/30/2023) Annual BMP Blood Test Abstracted Result [facility] Provider HEALTH MAINTENANCE Final Result * Hemoglobin A1c (12/30/2023) Pathologist [facility] Hemoglobin A1C 0.0 % Comment:no interpretation Blood Venous blood specimen / Unknown Result [facility] Provider LAB BLOOD ORDERABLES Machelle l Result * Lipid panel (12/30/2023) Pathologist [facility] Triglycerides 0 mg/dL Comment:no interpretation Cholesterol 0 mg/dL Comment:no interpretation HDL 0 mg/dL Comment:no interpretation LDL Cholesterol 0 mg/dL Comment:no interpretation Blood Venous blood specimen / Unknown Result [facility] Provider LAB BLOOD ORDERABLES Machelle l Result * Urine Albumin Creatinine Ratio (07/24/2022) Urine Albumin Creatinine Ratio Abstracted [facility] Provider HEALTH MAINTENANCE Final Result from Last 3 Months or Most Recently Relevant to Health Maintenance Insurance [place]ICAID [place] Care Teams Echocardiography Tech Relationship Specialty Start Date End Date Machelle Swann MD [address] [place] [address] [place] [id number] PCP - General 10/15/12
--- OUTSIDE RECORDS SUMMARY | 2025-05-24 14:11 | XMS_ITS | Clinical Summary ---
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 - Will obtain lab work. Also curious to see radiographic imaging of the hands, feets, SI and lumbar spine. Will obtain interval history from shipping/receiving clerk Karlee Le. - RTC in 4 [...] polyneuropathy, with long-term current use of insulin ([facility]) POCT HEMOGLOBIN, A1C Routine 02/09/2019 8:10 AM EDT Type 2 diabetes mellitus with diabetic polyneuropathy, with long-term current use of insulin ([facility]) HIV COMBO ANTIGEN/ANTIBODY Routine 10/06/2018 3:59 PM EST Polyarthralgia from Last 3 Months or Most Recently Relevant to Health Maintenance Results * Microalbumin/creatinine ratio (02/09/2019 10:15 AM EDT) Microalbumin/Creat Ratio 20 2 - 20 mg/g Creat 02/09/2019 11:55 AM EDT [facility] Creatinine, Urine, Random 101 mg/dL 02/09/2019 11:55 AM EDT [facility] Comment: The laboratory does not have established reference ranges for this test. Interpretation of results is at the discretion of the ordering physician. Urine specimen (specimen) Urine specimen obtained by clean catch procedure / Unknown Non-blood Collection / Unknown 02/09/2019 10:15 AM EDT 02/09/2019 10:15 AM EDT us Keke Katz APRN LAB URINE ORDERABLES Final Res ult [facility] [address] [place] [address], [place] [phone] * POCT hemoglobin, A1c (02/09/2019 8:10 AM EDT) POCT Hemoglobin A1C 9.2 4.4 - 6.4 % Blood specimen (specimen) 02/09/2019 8:10 AM EDT us Keke Katz [employer] POCT ORDERABLES NO CHARGE Machelle l Result * HIV combo antigen/antibody (10/06/2018 3:59 PM EST) HIV Combo AB/AG Negative Negative 10/06/2018 6:02 PM EST [facility] Blood specimen (specimen) Venous blood specimen / Unknown Venipuncture / Unknown 10/06/2018 3:59 PM EST 10/06/2018 3:59 PM EST Narrative [facility] - 10/06/2018 6:02 PM EST This test is a 4th generation HIV Antigen-Antibody Combination assay, using a chemiluminescent microparticle immunoassay, for the simultaneous qualitative detection of human immuno- deficiency virus (HIV) p24 antigen and antibodies to HIV type 1 (HIV-1) and/or HIV type 2 (HIV-2) in human serum or plasma. The [employer] HIV Ag/Ab Combo assay is intended to [...] BLOOD ORDERABLES NO ST AT Final Result [facility] [address] [place] [address], [place] [phone] from Last 3 Months or Most Recently Relevant to Health Maintenance Insurance MEDICAID [place] D Care Teams Noodle Press Operator Relationship Specialty Start Date End Date Viet Sánchez PA [address] [place] [address] PCP - General Family Medicine 07/22/18
--- OUTSIDE RECORDS SUMMARY | 2025-05-24 14:11 | XMS_ITS | Clinical Summary ---
Author Organization [employer] Address [address] [facility] [address] [place] [address] Care Team Providers Care Medical Doctor Md Name Role Phone Maranda Serna MD Primary Care Provider [phone] Allergies Active Allergy Reactions Criticality Noted Date [...] 30 mL 2 Active Easy Touch Pen Decorah 31G X 8 MM miscIndication s:Type 2 diabetes mellitus with hyperglycemia, with long-term current use of insulin ([facility]) USE DIRECTED THREE TIMES DAILY 200 [...] hyperglycemia, with long-term current use of insulin ([facility]) TEST BLOOD SUGAR THREE TIMES DAILY [...] hyperglycemia, with long-term current use of insulin ([facility]) OneTouch brand. TEST BLOOD SUGAR THREE TIMES DAILY 100 each 025 2025 Active glucose blood (FREESTYLE LITE) test stripIndicatio ns:Type 2 diabetes mellitus with stage 3b chronic kidney disease, with long-term current use of insulin ([facility]) USE TO TEST BLOOD SUGAR THREE TIMES A DAY 100 each 025 Active Blood Glucose Monitoring Suppl (FreeStyle Lite) w/Device kitIndications :Type 2 diabetes mellitus with stage 3b chronic kidney disease, with long-term current use of insulin ([facility]) 1 Dose by Other route 3 times daily. USE TO TEST BLOOD SUGAR THREE TIMES A DAY 1 kit 07/10/2 025 Active TRUEplus Lancets 33G miscIndication s:Type 2 diabetes mellitus with stage 3b chronic kidney disease, with long-term current use of insulin ([facility]) USE TO TEST BLOOD SUGAR THREE TIMES [...] Assessment & Plan (04/12/2025 1:39 PM EDT): -Elementary Reading Tutor: [facility], last seen in Dec 2024 -11/30/2024- Cardiac catheterization showed [id number] distal LAD disease with severe distal stenosis [...] Assessment & Plan (01/21/2025 12:33 PM EDT): -Elementary Reading Tutor: [facility], last seen in Dec 2024 -11/30/2024- Cardiac catheterization showed [id number] distal LAD disease with severe distal stenosis [...] and supportive care - follow up with electronics engineer as scheduled Assessment & Plan (07/23/2024 9:02 [...] Plan (01/17/2025 11:35 AM EDT): - seeing electronics engineer - continue judicious use of gabapentin 100 mg tid - she wants to switch to tablet. Only tablets available are 600 and 800 mg tablet - will have her take 1/4 of 600 mg tablet and take bid; or will check with pharmacist if she can open the capsule and take inside content Assessment & Plan (07/23/2024 5:36 AM EDT): - seeing electronics engineer - continue judicious use of gabapentin 100 mg tid - she wants to switch to tablet. Only tablets available are 600 and 800 mg tablet - will have her take 1/4 of 600 mg tablet and take bid; or will check with pharmacist if she can open the capsule and take inside content Assessment & Plan (01/04/2024 3:36 PM EST): - seeing electronics engineer - continue judicious use of gabapentin Assessment & Plan (10/03/2023 9:48 AM EST): - seeing electronics engineer - waiting for diabetic orthotics Adjustment disorder [...] and cough -Currently prescribed Dapagliflozin from electronic coils supervisor Assessment & Plan (07/20/2024 1:50 PM EDT): -Goal BP < 140/90 per JNC-8 and < 130/80 per ACC/AHA guideline (Treatment threshold >= 140/90 ) -BP at goal today -Continue working on lifestyle modifications -Recommended self-monitoring BP. -Pt has tried lisinopril for renal protection, not for HTN, in the past, but it was discontinued due to hyperkalemia and cough -Currently prescribed Dapagliflozin from electronic coils supervisor -Follow up in 3-6 mo, sooner [...] and cough -Currently prescribed Dapagliflozin from electronic coils supervisor -Follow up in 3-6 mo, sooner [...] neuropathy; osteoarthritis; plantar fasciitis - Following with electronics engineer Assessment & Plan (06/07/2023 3:44 PM EDT): - left foot worse than right - multifactorial: Diabetic peripheral neuropathy; osteoarthritis; plantar fasciitis - referred to a electronics engineer; waiting for an appt - check the [...] want to try any GLP-1 agonist. -Patient Cafeteria Monitor prescribed Farxiga. Patient is taking this medication [...] want to try any GLP-1 agonist. -Patient Cafeteria Monitor prescribed Farxiga. Patient is no longer taking [...] (06/07/2023 3:30 PM EDT): - followed by [facility] - no anatomical pancreatic abnormality on MRI [...] Plan (01/21/2025 12:33 PM EDT): -Followed by [facility], last seen 01/03/25 [...] & Plan (04/12/2025 1:40 PM EDT): - Cafeteria Monitor, Dr. Marci Hylton. Last seen on 01/25/25 - Metformin is discontinued, Dr. Tsai started her on Dapagliflozin (Farxiga) - Previously on Lisinopril, but was disccontinued due to cough / K - Avoid nephrotoxic drugs, including NSAID (no more Aleve) - Renal dose meds Assessment & Plan (01/21/2025 12:32 PM EDT): - Cafeteria Monitor, Dr. Marci Hylton. Last seen on 01/25/25 - Metformin is discontinued, Dr. Tsai started her on Dapagliflozin (Farxiga) - Previously on Lisinopril, but was disccontinued due to cough / K - Avoid nephrotoxic drugs, including NSAID (no more Aleve) - Renal dose meds Assessment & Plan (07/23/2024 5:41 AM EDT): - Cafeteria Monitor, Dr. Marci Hylton. - Metformin is discontinued, Dr. Tsai started bryn ib Dapagliflozin (Farxiga) - Previously on Lisinopril, but was disccontinued due to cough / K - Avoid nephrotoxic drugs, including NSAID (no more Aleve) - Renal dose meds Assessment & Plan (01/04/2024 3:45 PM EST): - Cafeteria Monitor, Dr. 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 Tsai is prescribing Dapagliflozin (Farxiga) - Previously on Lisinopril, but was disccontinued due to cough / K - Avoid nephrotoxic drugs - Renal dose meds Assessment & Plan (10/03/2023 9:41 AM EST): - Cafeteria Monitor, Dr. 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 Tsai rx Farxiaakash for DM management - Previously on Lisinopril, but was disccontinued due to cough / K - Avoid nephrotoxic drugs - Renal dose meds - Pt was advised that atorvastatin is not nephrotoxic and it will lower her ASCVD risk. Pt continues to decline statin therapy. Assessment & Plan (06/07/2023 3:34 PM EDT): - Cafeteria Monitor, Dr. 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 [...] & Plan (02/24/2023 5:37 AM EDT): - Cafeteria Monitor, Dr. Tsai - Lab: 12/24/22 BUN 28, [...] & Plan (12/18/2022 6:31 PM EST): - Cafeteria Monitor, Dr. 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 [...] [facility] -refill famotidine as [...] - Prescribed dapagliflozin (Farxiga) from PCP and electronic coils supervisor, questionable adherence - Discussed about CGM, which she does not want to use it at this time Treatment Hx -Pt has taken GLP-1 agonists and had significant side effects, mainly GI. Pt states she does not want to try any GLP-1 agonist. -Patient Cafeteria Monitor prescribed Farxiga. Patient is taking this medication [...] - Prescribed dapagliflozin (Farxiga) from PCP and electronic coils supervisor, questionable adherence - Discussed about CGM, which she does not want to use it at this time Treatment Hx -Pt has taken GLP-1 agonists and had significant side effects, mainly GI. Pt states she does not want to try any GLP-1 agonist. -Patient Cafeteria Monitor prescribed Farxiga. Patient is taking this medication [...] want to try any GLP-1 agonist. -Patient Cafeteria Monitor prescribed Farxiga. Patient is taking this medication [...] want to try any GLP-1 agonist. -Patient Cafeteria Monitor prescribed Farxiga. Patient is no longer taking [...] want to try any GLP-1 agonist. -Patient Cafeteria Monitor prescribed Farxiga. Patient is no longer taking [...] want to try any GLP-1 agonist. -Patient Cafeteria Monitor prescribed Farxiga. Patient is no longer taking [...] want to try any GLP-1 agonist. -Patient Cafeteria Monitor prescribed Farxiga. Patient is no longer taking [...] Type Department Care Team Description 05/19/2025 Refill [facility] [address] [place] [address] Maranda Serna MD Type 2 diabetes mellitus with stage 3b chronic kidney disease, with long-term current use of insulin ([facility]) 05/04/2025 Refill [facility] [address], [place] [phone] Maranda Serna MD Type 2 diabetes mellitus with hyperglycemia, with long-term current use of insulin (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/HCC); Type 2 diabetes mellitus with stage 3b chronic kidney disease, with long-term current use of insulin ([facility]/HCC); Type 2 diabetes mellitus with hyperglycemia, with long-term current use of insulin ([facility]/H[facility]); Stage 3b chronic kidney disease ([facility]/HCC); Anemia due to stage 3b chronic kidney disease ([facility]/HCC); Thyroid nodule; Type 2 diabetes mellitus with diabetic polyneuropathy, with long-term current use of insulin ([facility]); Dietary counseling; Exercise counseling; Class 2 severe obesity due to excess calories with serious comorbidity and body mass index (BMI) of 35.0 to 35.9 in adult ([facility]); Gastroesophageal reflux disease, unspecified whether esophagitis present; [...] Troponin I (04/22/2025 2:18 PM EDT) Pathologist [facility] [place] TROPONIN I HIGH SENSITIVITY 7.1 <3.5 - 17.0 ng/L [facility] Comment:The Castillo high sens itivity Troponin-I results should beused in conjunction with other diagnostic information suchas ECG, clinical observations and information, and patientsymptoms to aid in the diagnosis of AL. 04/22/2025 2:18 PM EDT 04/22/2025 2:27 PM EDT us Generic External Data Provider LAB BLOOD ORDERAB LES Final Result [facility] [address] [place] [phone] * SARS-CoV-2 RNA, Influenza A/B, and RSV RNA, Ql NAAT (04/22/2025 2:18 PM EDT) Pathologist [facility] [place] Influenza A PCR NEGATIVE Negative [facility] Influenza B PCR NEGATIVE Negative [facility] Resp Syncy Virus RNA Qual PCR NEGATIVE Negative [facility] SARS COV2 PCR NEGATIVE Negative [facility] Comment:All test results mus [...] use by authorized laboratories.Testing performed on the [employer] GeneXpert utilizingreal-time RT-PCR.All SARS CoV2 and positive influenza A/B results arereported to [facility]. 04/22/2025 2:18 PM EDT 04/22/2025 2:27 PM EDT us Generic External Data Provider LAB MICROBIOLOGY - GENERAL ORDERABLES Final Result [facility] [address] [place] [phone] * (ABNORMAL) CBC auto differential (04/22/2025 2:18 PM EDT) Only the most recent of2 resultswithin the time period is included. White Blood Count 6.3 4.8 - 10.8 X10*3/uL [facility] Red Blood Count 4.11(L) 4.20 - 5.50 X10*6/uL [facility] Hemoglobin 11.6(L) 12.0 - 16.0 g/dl [facility] Hematocrit 36.8(L) 37.0 - 47.0 % [facility] Mean Corpuscular Volume 89.5 80.0 - 98.0 fL [facility] Mean Corpuscular Hemoglobin 28.2 27.0 - 33.0 pg [facility] Mean Corpuscular HGB Conc 31.5 31.0 - 35.0 g/dl [facility] Red Cell Distribution Width 15.2 11.0 - 16.0 % [facility] Platelet Count 252 160 - 400 X10*3/uL [facility] Mean Platelet Volume 9.1(L) 9.4 - 12.3 fL [facility] Neutrophils Percent Auto 60.9 45 - 73 % [facility] Imm Gran Pct Auto 0.5(H) 0.0 - 0.4 % [facility] Lymphocytes Percent Auto 30.1 20 - 40 % [facility] Monocytes Percent Auto 6.7 2 - 11 % [facility] Eosinophils Percent Auto 1.0 0 - 4 % [facility] Basophils Percent Auto 0.8 0 - 2 % [facility] NRBC Pct Auto 0.0 0.0 - 0.2 /100WBC [facility] Neutrophils Absolute Auto 3.8 2.0 - 8.3 x10*3/uL [facility] Imm Gran Abs Auto 0.03 0.00 - 0.03 X10*3/uL [facility] Lymphocytes Absolute Auto 1.9 1.2 - 4.9 X10*3/uL [facility] Monocytes Absolute Auto 0.4 0.1 - 1.2 X10*3/uL [facility] Eosinophils Absolute Auto 0.1 0.0 - 0.4 X10*3/uL [facility] Basophils Absolute Auto 0.1 0.0 - 0.2 X10*3/uL [facility] NRBC Abs Auto 0.000 0.0 - 0.012 X10*3/uL [facility] 04/22/2025 2:18 PM EDT 04/22/2025 2:27 PM EDT Generic External Data Provider LAB BLOOD ORDERAB LES Final Result Performing Organization Address [facility] Co de Phone Number [facility] [address] [place] [phone] * Magnesium (04/22/2025 2:18 PM EDT) Magnesium 1.7 1.6 - 2.6 mg/dL [facility] 04/22/2025 2:18 PM EDT 04/22/2025 2:27 PM EDT Generic External Data Provider LAB BLOOD ORDERAB LES Final Result Performing Organization Address [facility] Co de Phone Number [facility] [address] [place] [phone] * Hepatic Function Panel (04/22/2025 2:18 PM EDT) Bilirubin, Total 0.3 0.0 - 1.0 mg/dL [facility] Bilirubin, Direct 0.1 0.0 - 0.5 mg/dL [facility] Aspartate Amino Transferase 26 5 - 31 U/L [facility] Alanine Aminotransferase 10 0 - 31 U/L [facility] Total Protein 6.8 6.5 - 8.0 g/dL [facility] Albumin Level 4.2 3.5 - 5.0 g/dL [facility] Alkaline Phosphatase 89 39 - 117 U/L [facility] 04/22/2025 2:18 PM EDT 04/22/2025 2:27 PM EDT us Generic External Data Provider LAB BLOOD ORDERAB LES Final Result [facility] [address] [place] [phone] * (ABNORMAL) Basic Metabolic Panel (04/22/2025 2:18 PM EDT) Pathologist [facility] [place] Sodium 140 135 - 145 mmol/L [facility] Potassium 3.7 3.3 - 5.1 mmol/L [facility] Chloride 111(H) 96 - 108 mmol/L [facility] Carbon Dioxide 23 22 - 29 mmol/L [facility] Anion Gap 10(L) 12 - 20 [facility] Urea Nitrogen (BUN) 42(H) 9 - 16 mg/dL [facility] Creatinine, Serum 1.99(H) 0.5 - 1.4 mg/dL [facility] Creatinine Clr Calc Pharmacy 29.3 [facility] Comment:Provided height and weight: 157.48 cm,87.7 kg.eGFR (calculated from the MDRD study equation) and eCrCl(calculated from the Cockcroft-Gault equation) are based ondifferent parameters and may not yield comparable results.If eCrCl result is absurd, please check patient'sheight/weight. Estimated Glomerular Filt Rate 25 [facility] Comment:Chronic Kidney Disea se: Estimated GFR < 60 mL/min/1.54o2Zjktwe Kidney Disease: Estimated GFR < 15 mL/min/1.73m2 Glucose 64 60 - 115 mg/dL [facility] Calcium 8.8 8.4 - 10.2 mg/dL [facility] 04/22/2025 2:18 PM EDT 04/22/2025 2:27 PM EDT us Generic External Data Provider LAB BLOOD ORDERAB LES Final Result Performing Organization Address City/State/[facility] Co de Phone Number [facility] [address] [place] [phone] * XR Chest 2 Views (04/22/2025 1:34 PM EDT) Anatomical Region Laterality Modality Chest Radiographic Mary ging 04/22/2025 1:34 PM EDT Narrative 04/22/2025 2:41 PM EDT [address] [address] XRay Report Signed Patient: Ese Mendoza MR#: [id number] 8 : 1960 Acct:[id number] Age/Sex: 64 / F ADM Date: 04/22/25 Loc: .ED Attending Dr: Ordering Physician: Bella Lomeli Date of Service: 04/22/25 Procedure(s): XR chest 2V Accession Number(s): [id number] cc: Bella Lomeli; Maranda Serna MD EXAMINATION: [...] 04/22/25 1438 DD/ 33 TD/TT: 04/22/25 143 Tuber Machine Cutter: Procedure Note Donotuseinterpreter, Image - 04/22/[address] [address] XRay Report Signed Patient: Ese MendozaMR#: [id number] 8 : 1960Acct:[id number] Age/Sex: 64 / FADM Date: 04/22/25 Loc: .ED Attending Dr: Ordering Physician: Bella Lomeli Date of Service: 04/22/25 Procedure(s): XR chest 2V Accession Number(s): [id number] cc: Bella Lomeli; Maranda Serna MD EXAMINATION: [...] 04/22/25 1438 DD/ 1334 TD/TT: 04/22/25 143 Tuber Machine Cutter: [facility] External Provider IMG XR PROCEDURES [...] Unknown 04/12/2025 3:56 PM EDT us Maranda Srena MD POINT OF CARE TEST ENTER/EDIT OR DERABLES Final Result * Albumin, Random Urine W/Creatinine (03/22/2025 3:56 PM EDT) Creatinine, Urine 52.25 mg/dL [facility] Microalbumin Urine 15.0 mg/L [facility] Microalbum Creatinine Ratio Ur 28.7 <30 ug/mg cr [facility] Comment:Albumin/Creatinine R atio Reference Ranges: Normal: < 30 ug/mg creatinine Microalbuminuria: 30 - 300 ug/mg creatinineClinical Albuminuria: > 300 ug/mg creatinine Urine 03/22/2025 3:56 PM EDT 03/22/2025 5:55 PM EDT Maranda Serna MD LAB URINE ORDERABLES Final Resul t [facility] [address] [place] [phone] * Vitamin B12 (Cobalamin) and Folate Panel, Serum (03/22/2025 3:47 PM EDT) Vitamin B12 810 200 - 900 pg/mL [facility] Comment:NORMAL 200-900 PG/ML INDETERMINATE 160-199 PG/ML DEFICIENT < 160 PG/ML Folate 9.9 > or = 4.0 ng/mL [facility] Comment:Reference Values:> o r = 4.0 ng/mL< 4.0 ng/mL suggests folate deficiency Methotrexate, aminopterin and folinic acid(leucovorin) are chemotherapeutic agents whose molecularstructures are similar to folate; therefore, the Architectfolate assay cannot be used for patients using these drugs. Blood 03/22/2025 3:47 PM EDT 03/22/2025 5:53 PM EDT Maranda Serna MD LAB BLOOD ORDERABLES Final Resul t Performing Organization Address [facility] Co de Phone Number [facility] [address] [place] [phone] * TSH with Reflex to Free T4 (03/22/2025 3:47 PM EDT) TSH reflex Free T4 1.89 0.32 - 4.0 uIU/mL [facility] Blood 03/22/2025 3:47 PM EDT 03/22/2025 5:53 PM EDT Maranda Serna MD LAB BLOOD ORDERABLES Final Resul t Performing Organization Address [facility] Co de Phone Number [facility] [address] [place] [phone] * Respiratory Allergy Profile Region I (03/22/2025 3:47 PM EDT) Mouse Urine Proteins (E72) IgE <0.10 kU/L [facility] Class 0 [facility] Cockroach (I6) IgE <0.10 kU/L [facility] Class 0 [facility] Dermatophagoides farinae (D2) IgE <0.10 kU/L [facility] Class 0 [facility] Cat Dander (E1) IgE <0.10 kU/L [facility] Class 0 [facility] Comment:THIS TEST WAS PERFOR MED AT:[employer] [address] [phone] CRONIN MD Dog Dander (E5) IgE <0.10 kU/L [facility] Class 0 [facility] Comment:THIS TEST WAS PERFOR MED AT:[employer] [address] [phone] CRONIN MD Asim Grass (G6) IgE <0.10 kU/L [facility] Class 0 [facility] Cladosporium herbarum (M2) IgE <0.10 kU/L [facility] Class 0 [facility] Aspergillus Fumigatis (M3) IgE <0.10 kU/L [facility] Class 0 [facility] Alternaria alternata (M6) IgE <0.10 kU/L [facility] Class 0 [facility] Comment:THIS TEST WAS PERFOR MED AT:[employer] [address] [phone] CRONIN MD Mountain Dolores (t6) IgE <0.10 kU/L [facility] Class 0 [facility] Att[place] (T7) IgE <0.10 kU/L [facility] Class 0 [facility] Magnolia Tree (T10) IgE <0.10 kU/L [facility] Class 0 [facility] [place] (T11) IgE <0.10 kU/L [facility] Class 0 [facility] [place] (T14) IgE <0.10 kU/L [facility] Class 0 [facility] White Frankie (t15) IgE <0.10 kU/L [facility] Class 0 [facility] [place] (T70) IgE <0.10 kU/L [facility] Class 0 [facility] Common Ragweed (Short) (W1) IgE <0.10 kU/L [facility] Class 0 [facility] Mugwort (w6) IgE <0.10 kU/L [facility] Class 0 [facility] Dermatophagoides pteronyssinus (D1) IgE <0.10 kU/L [facility] Class 0 [facility] Bermuda Grass (g2) IgE <0.10 kU/L [facility] Class 0 [facility] Penicillium Notatum (M1) IgE <0.10 kU/L [facility] Class 0 [facility] Birch (T3) IgE <0.10 kU/L [facility] Class 0 [facility] Elm (t8) IgE <0.10 kU/L [facility] Class 0 [facility] Maple ([place]) (T1) IgE <0.10 kU/L [facility] Class 0 [facility] Rough Pigweed (W14) IgE <0.10 kU/L [facility] Class 0 [facility] Sheep Esparto (W18) IgE <0.10 kU/L [facility] Class 0 [facility] Allergen Comment See Below [facility] Comment: Specific Level of AllergenIGE [...] and its analyticalperformance characteristics have been determined by[employer]. It has not been cleared or approvedby the U.S. Food and Drug Administration. This assayhas been validated pursuant to the CLIA regulationsand is used for clinical purposes.THIS TEST WAS PERFORMED AT:[facility] [place] [phone] CRONIN MD 03/22/2025 3:47 PM EDT 03/22/2025 5:53 PM EDT us Generic External Data Provider LAB BLOOD ORDERAB LES Final Result Performing Organization Address [facility]/ZIP Co de Phone Number [facility] [address] [place] [phone] * Lipid Panel with Reflex to Direct LDL (03/22/2025 3:47 PM EDT) Triglycerides 96 <150 mg/dL [facility] Comment:Desirable Triglyceri de: less than 150 mg/dLBorderline High Triglyceride 150-199 mg/dLHigh Triglyceride: 200-499 mg/dLVery High Triglyceride: greater than or equal to 5OO mg/dL Cholesterol 124 <200 mg/dL [facility] Comment:Desirable Cholestero l: less than 200 mg/dLBorderline High Cholesterol: 200-239 mg/dLHigh Cholesterol: greater than 239 mg/dL LDL Cholesterol Calculated 52 <100 mg/dL [facility] Comment:Desirable LDL: less than 100 mg/dLNear Optimal/Above Optimal LDL: 110- 129 mg/dLBorderline High LDL: 130-159 mg/dLHigh LDL: 160-189 mg/dLVery High LDL: greater than or equal to 190 mg/dL HDL Cholesterol 53 >40 mg/dL [facility] Comment:Desirable HDL: great er than 40 mg/dL Note: This HDL assay may give artificially low results in patients with liver disease. Blood 03/22/2025 3:47 PM EDT 03/22/2025 5:53 PM EDT us Maranda Serna MD LAB BLOOD ORDERABLES Final Resul t Performing Organization Address City/[facility]/ZIP Co de Phone Number [facility] [address] [place] [phone] * Iron And Total Iron Binding Capacity (03/22/2025 3:47 PM EDT) Iron 46 30 - 160 mcg/dL [facility] Total Iron Binding Capacity 254 228 - 428 mcg/dL [facility] Percent Iron Saturation 18 15 - 50 % [facility] Unsaturated Iron Binding 208 ug/dL [facility] Blood Venous blood specimen / Unknown 03/22/2025 3:47 PM EDT 03/22/2025 5:53 PM EDT us Maranda Serna MD LAB BLOOD ORDERABLES Final Resul t Performing Organization Address [facility]/ZIP Co de Phone Number [facility] [address] [place] [phone] * Immunoglobulin E (03/22/2025 3:47 PM EDT) Immunoglobulin E 3 <HD=853 kU/L [facility] 03/22/2025 3:47 PM EDT 03/22/2025 5:53 PM EDT us Generic External Data Provider LAB BLOOD ORDERAB LES Final Result Performing Organization Address [facility] Co de Phone Number [facility] [address] [place] [phone] * Ferritin (03/22/2025 3:47 PM EDT) Ferritin 134 10 - 250 ng/mL [facility] Blood Venous blood specimen / Unknown 03/22/2025 3:47 PM EDT 03/22/2025 5:53 PM EDT us Maranda Serna MD LAB BLOOD ORDERABLES Final Resul t Performing Organization Address [facility] Co de Phone Number [facility] [address] [place] [phone] * (ABNORMAL) Comprehensive Metabolic Panel (03/22/2025 3:47 PM EDT) Sodium 139 135 - 145 mmol/L [facility] Potassium 4.3 3.3 - 5.1 mmol/L [facility] Chloride 106 96 - 108 mmol/L [facility] Carbon Dioxide 25 22 - 29 mmol/L [facility] Anion Gap 12 12 - 20 [facility] Urea Nitrogen (BUN) 33(H) 9 - 16 mg/dL [facility] Creatinine, Serum 1.93(H) 0.5 - 1.4 mg/dL [facility] Estimated Glomerular Filt Rate 26 [facility] Comment:Chronic Kidney Disea se: Estimated GFR < 60 mL/min/1.88w4Huiftt Kidney Disease: Estimated GFR < 15 mL/min/1.73m2 Glucose 79 60 - 115 mg/dL [facility] Calcium 9.1 8.4 - 10.2 mg/dL [facility] Bilirubin, Total 0.3 0.0 - 1.0 mg/dL [facility] Aspartate Amino Transferase 27 5 - 31 U/L [facility] Alanine Aminotransferase 11 0 - 31 U/L [facility] Total Protein 6.9 6.5 - 8.0 g/dL [facility] Albumin Level 4.1 3.5 - 5.0 g/dL [facility] Alkaline Phosphatase 118(H) 39 - 117 U/L [facility] Blood Venous blood specimen / Unknown 03/22/2025 3:47 PM EDT 03/22/2025 5:53 PM EDT us Maranda Serna MD LAB BLOOD ORDERABLES Final Resul t [facility] [address] [place], [place] [phone] * CT Chest w/o Contrast (02/25/2025 11:15 AM EDT) Anatomical Region Laterality Modality Body, Chest Computed Tomogra phy 02/25/2025 11:1 5 AM EDT Narrative 02/25/2025 11:59 AM EDT [address] [address] [address] Scan Report Signed Patient: Ese Mendoza MR#: [id number] 8 : 1960 Acct:[id number] Age/Sex: 64 / F ADM Date: 02/25/25 Loc: HO.CT Attending Dr: Maranda Serna MD Ordering Physician: Maranda Serna MD Date of Service: 02/25/25 Procedure(s): CT chest wo IV con Accession Number(s): [id number] cc: Maranda Serna MD Report Number: [id number]: Total DLP = 183.00 mGy-cm EXAMINATION: CT [...] reconstruction technique DLP: 183 mGy centimeter. FINDINGS: CEMENT FINISHING SUPERVISOR: Large body habitus. Vascular clips right upper [...] 02/25/25 1155 DD/ 1115 TD/TT: 02/25/25 1124 Tuber Machine Cutter: Procedure Note Donotuseinterpreter, Image - 02/25/[address] [place] [address] [address] Scan Report Signed Patient: Ese MendozaMR#: [id number] 8 : 1960Acct:[id number] Age/Sex: 64 / FADM Date: 02/25/25 Loc: .CT Attending Dr: Maranda Serna MD Ordering Physician: Maranda Serna MD Date of Service: 02/25/25 Procedure(s): CT chest wo IV con Accession Number(s): [id number] cc: Maranda Serna MD Report Number: [id number]: Total DLP = 183.00 mGy-cm EXAMINATION: CT [...] reconstruction technique DLP: 183 mGy centimeter. FINDINGS: CEMENT FINISHING SUPERVISOR: Large body habitus. Vascular clips right upper [...] 02/25/25 1155 DD/ 1115 TD/TT: 02/25/25 1124 Tuber Machine Cutter: Maarnda Serna MD IMG CT PROCEDURES Edited Result - Final * BI Mammogram Screening Tomosynthesis Bilateral (02/10/2024 2:40 PM EDT) Anatomical Region Laterality Modality Breast Bilateral Mammography 02/10/2024 2:40 PM EDT Narrative 02/22/2024 3:43 PM EDT [facility] [address] [place], [place] [address] Mammography Report Signed Patient: Ese Mendoza MR#: [id number] 8 : 1960 Acct:[id number] Age/Sex: 63 / F ADM Date: 02/10/24 Loc: HO.MAMMO Attending Dr: Maranda Serna MD Ordering Physician: Maranda Serna MD Results: 1Negative Date of Service: 02/10/24 Follow Up: 1 Year From Orig inal Mammogram Procedure(s): MM tomosynthesis screening BI Accession Number(s): [id number] cc: Maranda Serna MD EXAMINATION: MM SCREENING [...] present. These include several, bilateral, benign macrocalcifications marketing representative of fat necrosis. MM/MM tomosynthesis screening [...] in OV> 02/22/24 1539 DD/ 1440 TD/TT: Tuber Machine Cutter: Procedure Note Donotuseinterpreter, Image - 02/22/20[facility] [address] [place], [place] [address] Mammography Report Signed Patient: Ese MendozaMR#: [id number] 8 : 1960Acct:[id number] Age/Sex: 63 / FADM Date: 02/10/24 Loc: GUILLERMINA.MAMMDavid Attending Dr: Maranda Serna MD Ordering Physician: Maranda Serna MDResults: 1Negative Date of Service: 02/10/24Follow Up: 1 Year From [facility] ina Mammogram Procedure(s): MM tomosynthesis screening BI Accession Number(s): [id number] cc: Maranda Serna MD EXAMINATION: MM SCREENING [...] present. These include several, bilateral, benign macrocalcifications marketing representative of fat necrosis. MM/MM tomosynthesis screening [...] in OV> 02/22/24 1539 DD/ 1440 TD/TT: Tuber Machine Cutter: Maranda Serna MD IMG BI PROCEDURES Edited Result - Final * (ABNORMAL) Hm Colonoscopy (07/07/2022) Colonoscopy Abnormal(A ) Normal [facility] External Provider HEALTH MAINTENANCE Final Result from Last 3 Months or Most Recently Relevant to Health Maintenance Insurance [facility] C3 Care Teams Medical Doctor Md Relationship Specialty Start Date End Date Maranda Serna MD [address] [place] [phone] PCP - General Family Medicine 08/01/21
--- OUTSIDE RECORDS SUMMARY | 2025-05-24 14:11 | XMS_ITS | Data Portability ---
Author Organization [place] - Clarence Sen MD, [facility] Address [address] [place] [phone] Assessment No assessment recorded. Plan of Treatment Reminders Order Date Submit Date Provider Last Modified By Organization Details Last Modified Time Details Appointments None recorded. Lab urinalysis, complete 2016 017 [email or web address] In-House Results, For Internal Use Only, Do Not Delete/merge, [id number] 7 11:38:12 urinalysis, complete 2016 017 tmcclung In-House Results, For Internal Use Only, Do Not Delete/merge, 76036 7 11:38:12 urinalysis, complete 2016 017 tmcclung In-House Results, For Internal Use Only, Do Not Delete/merge, 74608 7 13:16:50 urinalysis, complete 2016 017 tmcclung In-House Results, For Internal Use Only, Do Not Delete/merge, 84825 7 13:16:50 urinalysis, complete 2016 017 tmcclung In-House Results, For Internal Use Only, Do Not Delete/merge, 11085 7 14:28:33 urinalysis, complete 2016 017 tmcclung In-House Results, For Internal Use Only, Do Not Delete/merge, [address]20 7 14:28:33 Referral None recorded. Procedures None recorded. Surgeries None recorded. Imaging US, retroperito neum 06/27/ 2017 06/27/2 017 tmcclung In-House Results, For Internal Use Only, Do Not Delete/merge, 40980 7 14:28:33 Medication Orders None recorded. Patient TargetsNo targets recorded. Patient Instructions Encounter Date Encounter Id Patient Instructions Last Modified By Organization Details Last Modified Time 05/06/2017 [id number] Urinary Tract Infection (UTI) in Women: Care Instructions [email or web address] Not available 05/09/2017 14:28:33 bladder training : care instructions [email or web address] Not available 05/09/2017 14:28:33 kegel exercises: care instructions tmcclung Not available 05/09/2017 14:28:33 Stress Incontinence: Care Instructions [email or web address] Not available 05/09/2017 14:28:33 Urge Incontinence: Care Instructions [email or web address] Not available 05/09/2017 14:28:33 07/30/2017 [id number] Urinary Tract Infection (UTI) in Women: Care Instructions [email or web address] Not available 08/04/2017 13:16:50 bladder training : care instructions [email or web address] Not available 08/04/2017 13:16:50 kegel exercises: care instructions tmcclung Not available 08/04/2017 13:16:50 Stress Incontinence: Care Instructions tmcclung Not available 08/04/2017 13:16:50 Urge Incontinence: Care Instructions [email or web address] Not available 08/04/2017 13:16:50 09/29/2017 [id number] Urinary Tract Infection (UTI) in Women: Care Instructions [email or web address] Not available 10/01/2017 12:43:07 Reason for Referral None Reported. Results Created Date Observation Date Name Description Value Unit Range Abnormal Flag Note LastModifiedBy Organization Detail LastModifiedTime 09/29/20 17 09/29/2017 urina lysis , compl ete Leukocytes Negati ve Not Available In-House Results For Internal Use Only, Do Not Delete/merge, [id number] 09/29/2017 18:46:44 09/29/20 17 09/29/2017 urina lysis , compl ete Nitrite negati ve Not Available In-House Results For Internal Use Only, Do Not Delete/merge, [id number] 09/29/2017 18:46:44 09/29/20 17 09/29/2017 urina lysis [...] 09/29/2017 urina lysis , compl ete Specific [place] 1.020 Not Available In-[place] se Results For [...] 09/29/2017 urina lysis , compl ete Specific [place] 1.025 Not Available In-[place] se Results For [...] 07/30/2017 urina lysis , compl ete Specific [place] 1.020 Not Available In-[place] se Results For [...] 07/30/2017 urina lysis , compl ete Specific [place] 1.030 Not Available In-[place] se Results For [...] 05/06/2017 urina lysis , compl ete Specific [place] 1.015 Not Available In-[place] se Results For [...] 05/06/2017 urina lysis , compl ete Specific [place] 1.025 Not Available In-[place] se Results For [...] routine FINAL REPORT abnormal Not Available [facility] ([facility]) [address] [place], [address], 05/08/2017 16:19:18 05/06/2005/08/2017 cultu re, urine result 1 KLEBSI MONICA PNEUMO NIAE abnormal GREAT ER THAN 100,0 00 COLON Y FORMI NG UNITS PER ML Not Available [facility] ([facility]) [address] [place], [address], 05/08/2017 16:19:18 05/06/20 17 05/08/2017 cultu re, [...] THOPR IM/ANDRADE LFA S Not Available [facility] ([facility]) [address] [place], [address], 05/08/2017 16:19:18 07/30/20 17 08/01/2017 cultu re, urine urine culture, routine FINAL REPORT abnormal Not Available [facility] ([facility]) [address] [place], [address], 08/01/2017 16:22:57 07/30/20 17 08/01/2017 cultu re, urine result 1 KLEBSI MONICA PNEUMO NIAE abnormal Great er than 100,0 00 colon y formi ng units per mL Not Available [facility] ([facility]) [address] [place], [address], 08/01/2017 16:22:57 07/30/20 17 08/01/2017 cultu re, [...] thopr im/Andrade lfa S Not Available [facility] ([facility]) [address], [place], [address], 08/01/2017 16:22:57 05/15/20 17 05/15/2017 US, renal No observ ation record ed. [email or web address] [facility] [address] [facility], [place], [address], 07/30/2017 17:43:40 07/30/20 17 05/15/2017 US, retro perit oneum No observ ation record ed. [email or web address] Not Available 2016 11:33:32 07/30/20 17 05/15/2017 XR, kidne y + urete r + bladd er No observ ation record ed. [email or web address] Not Available 2016 11:33:32 Result Notes None [...] Updated DateTime 05/06/2017 157.48 cm 37.5 kg/m2 08997.44 g 84 /min 98/41 mm[Hg] Ashley Sen MD 05/06/2017 15:17:41 Date Recorded Body height Body mass index (BMI) Body weight Heart rate Systolic And Diastolic Provider Name and Address Organization Details Last Updated DateTime 07/30/2017 160.02 cm 35.8 kg/m2 98472.66 g 87 /min 113/49 mm[Hg] Ashley Sen MD 07/30/2017 15:05:21 Date Recorded Body height Body mass index (BMI) Body weight Heart rate Systolic And Diastolic Provider Name and Address Organization Details Last Updated DateTime 09/29/2017 160.02 cm 35.8 kg/m2 32988.66 g 98 /min 107/51 mm[Hg] Ashley Sen [...] SNOMED-CT Code Diagnosis ICD10 Code Diagnosis Note [id number] MD ERIK Denis [place] [address] [place] [address] 05/06/2017 14:29:22 05/06/2017 17:13:49 Mixed urinary incontinence 526158878 N39.46 Incomplete emptying of urinary bladder 088799807 R39.14 Urinary tr act infectious disease 64914970 N39.0 [id number] MD ERIK Denis [place] [address] [place] [address] 07/30/2017 14:16:01 07/30/2017 17:45:30 Mixed urinary incontinence 791544260 N39.46 Cystitis 55366241 N30.90 Urinary tr act infectious disease 94533334 N39.0 498241 MD ERIK Denis [address] [place] [address] 09/29/2017 17:41:48 09/30/2017 11:37:17 Urinary tract infectious disease 78507407 N39.0 Health Concerns Section Related Observation LastModified by Organization Detai ls LastModified Time None Recorded Concern Status LastModified by Organization Details LastModified Time None Recorded Advance Directives Directive None Recorded Payers Insurance Date Sequence Insurance Name Policy Number Policy Singer Covered Member ID Singer Member ID Guarantor Name 09/26/2017 1 [facility] [place] (MEDICAID REPLACEMENT - HMO) [id number] Ese Mendoza [id number] Ese Mendoza OBGyn Episode No OBEpisode recorded.
--- OUTSIDE RECORDS SUMMARY | 2025-05-24 14:11 | XMS_ITS | Patient Health Record ---
Author Organization [facility] [employer] Address [address] [facility] [id number] [place] [address] Care Team Providers Care Wood Die Maker Name Role Phone Larisa Saldana Primary Care Provider [phone] ALLERGIES Allergen (clinical drug ingredient) Drug/Non Drug [...] diabetes mellitus without complications (E11.9) Active confirmed 040294491 Problem Type 2 diabetes mellitus with diabetic polyneuropathy (E11.42) Active confirmed 10090188 Problem Other chronic pain (G89.29) Active confirmed 06139293 Problem Age-related nuclear cataract, bilateral (H25.13) Active confirmed Nuclear senile cataract (170828777) Problem Diabetes (E11.9) Active confirmed Type II diabetes mellitus without complication (622610635) Problem Dyslipidemia (E78.5) Active confirmed 087638224 Problem HTN (hypertension) (I10) Active confirmed Hypertension (96047611) Problem Arthritis (M19.90) Active confirmed 372 3001 Problem prison current use of insulin (Z79.4) Active confirmed 854878612 Problem Controlled diabetes mellitus with diabetic neuropathy (E11.40) Active confirmed Diabetic peripheral neuropathy associated with type 2 diabetes mellitus (7439568866409) Problem Type 2 diabetes mellitus with mild nonproliferative diabetic retinopathy without macular edema, bilateral (E11.3293) Active confirmed Mild nonproliferative retinopathy due to type 2 diabetes mellitus (305207778080591) Problem Left retinal detachment (H33.22) Active confirmed Serous r etinal detachment (16061051) Problem Menopausal and postmenopausal disorder (N95.9) Active confirmed 538963253 PLAN OF TREATMENT Pending Test Test Name [...] End Date MACKENZIE Hughes [address] [place] [address] [id number] Ese Mendoza Self - patient is the insured MEDICAID DENTAL [address] [place] [address] [id number] Ese Mendoza Self - patient is the [...]
== END 2025-05-24 13:33 | disposition home or self-care (01) ==
LOC: HO.HCS 12:58
PROVIDERS: PCP Family Medicine
DX: Z01.810 Encounter for preprocedural cardiovascular examination (principal); I25.10 Atherosclerotic heart disease of native coronary artery without angina pectoris; Z98.890 Other specified postprocedural states; E11.9 Type 2 diabetes mellitus without complications
CPT/HCPCS: 93010; 99214

== ENCOUNTER → 2025-05-24 12:57 | Outpatient (BNVA) | payer MEDICAID, SELFPAY | PROVIDERS: PCP Family Medicine | DX: Z01.810 Encounter for preprocedural cardiovascular examination (principal); I25.10 Atherosclerotic heart disease of native coronary artery without angina pectoris; E11.9 Type 2 diabetes mellitus without complications | CPT/HCPCS: 93005; 99212 ==

== ENCOUNTER 2025-06-06 12:52 | Outpatient (REF) | payer MEDICAID, SELFPAY ==
--- NOTE | ~2025-06-06 | US_ITS ---
EXAMINATION: US THYROID CLINICAL INFORMATION: Thyroid nodule on recent CT examination. COMPARISON: None available. TECHNIQUE: Linear transducer grayscale and color Doppler examination with attention to the region of the thyroid. FINDINGS: SIZE: Measurements of the thyroid lobes and nodules are given in sagittal, anteroposterior and transverse dimensions respectively. Right Thyroid Lobe: 4.7 x 1.6 x 1.9 cm, volume 7.5 mL. Parenchyma: The gland echotexture is normal. Thyroid vascularity is normal. Left Thyroid Lobe: 3.7 x 1.1 x 1.3 cm, volume 2.8 mL. Parenchyma: The gland echotexture is normal. Thyroid vascularity is normal. Isthmus: 0.4 cm in maximum AP dimension. Estimated total number of nodules greater than or equal to 1 cm: 1. Signal Mechanic nodules are described as follows: 1. Location: Right thyroid lobe upper aspect.. Size: 1.6 x 0.8 x 1.2 cm, volume 0.1 mL. Nodule characteristics: Composition: Solid (2). Echogenicity: Cannot be determined (1). Shape: Not taller than wide (0). Margins: Smooth (0). Echogenic Foci: None (0). ACR TI-RADS total points: 3 ACR TI-RADS category: 3 2. Location: [Right lobe mid portions.. Size: 0.9 x 0.4 x 0.8 cm, volume 0.2 mL. Nodule characteristics: Composition: Solid (2). Echogenicity: Hypoechoic (2). Shape: Not taller than wide (0). Margins: Smooth (0). Echogenic Foci: None (0). ACR TI-RADS total points: 4 ACR TI-RADS category: 4 3. Location: Left-sided of the isthmus .. Size: 0.4 x 0.2 x 0.3 cm, volume 0.01 mL. Nodule characteristics: Composition: Solid (2). Echogenicity: Very hypoechoic (3). Shape: Not taller than wide (0). Margins: Smooth (0). Echogenic Foci: None (0). ACR TI-RADS total points: 5 ACR TI-RADS category: 4 4. Location: Right thyroid lower pole.. Size: 0.4 x 0.3 x 0.4 cm, volume 0.03 mL. Nodule characteristics: Composition: Solid (2). Echogenicity: Hypoechoic (2). Shape: Not taller than wide (0). Margins: Smooth (0). Echogenic Foci: None (0). ACR TI-RADS total points: 4 ACR TI-RADS category: 4 NODES: No lymphadenopathy is seen in the tissue surrounding the thyroid gland. US/US thyroid IMPRESSION: ACR TI RADS 3, and 4. ACR TI-RADS RECOMMENDATION REFERENCE: Ultrasound-guided fine-needle aspiration, followup ultrasound, no further follow up. * TR1 (0 point) and TR2 (2 points): No FNA or follow up. * TR3 (3 points): FNA if more than or equal to 2.5 cm in maximum dimension, followup ultrasound in 1, 3 and 5 years if 1.5 to 2.4 cm in maximum dimension. * TR4 (4-6 points): FNA if more than or equal to 1.5 cm in maximum dimension, followup ultrasound in 1, 2, 3 and 5 years if 1 to 1.4 cm in maximum dimension. * TR5 (more than or equal to 7 points): FNA if more than or equal to 1 cm in maximum dimension, followup ultrasound every year for 5 years if 0.5 to 0.9 cm in maximum dimension. * TR3, TR4 or TR5 nodules that are below the size threshold for followup receive no follow up. Electronically signed by: Brandon Mosqueda MD 06/06/2025 01:47 PM EDT
--- OUTSIDE RECORDS SUMMARY | 2025-06-06 13:33 | XMS_ITS | Encounter Summary ---
Author Organization [facility] Address [address] [place] [address] Care Team Providers Care Transitional Studies Instructor Name Role Phone Viet Sánchez Unavailable [phone] Viet Sánchez Primary Care Provider [phone] Encounter Details Date Type Department Care Team (Late st Contact Info) Description 11/09/2019 Prep for Surgery OPHTHALMOLOGY [address] [place] [address] Holland Hunt MD [address] [facility] [place] [phone] Social History Tobacco Use Types Packs/Day Years [...] on filedocumented in this encounter Care Teams Transitional Studies Instructor Relationship Specialty Start Date End Date Viet Sánchez PA [address] [place] [address] PCP - General 06/18/18 Viet Sánchez PA [address] [place] [address] 06/18/18 documented as of this encounter
--- OUTSIDE RECORDS SUMMARY | 2025-06-06 13:33 | XMS_ITS | Clinical Summary ---
Author Organization [facility] Address [address] [place] [address] Phone Care Team Providers Care Manager Review Name Role Phone Machelle Swann MD Primary Care Provider [phone] Allergies Active Allergy Reactions Criticality Noted Date [...] 42 mcg (0.06 %) nasal spray 1 [place] by Nasal route. 09/24/20 Active omega-3 acid [...] osteoarthritis; plantar fasciitis - referred to a salad counter attendant; waiting for an appt - check the [...] hyperkalemia and cough -Currently prescribed Dapagliflozin from tin assorter -Follow up in 3-6 mo, sooner if [...] Last Assessment & Plan: - followed by [facility] - no anatomical [...] (08/25/2024): Last Assessment & Plan: -Followed by [facility], last seen 08/06/22 -EGD and Colonoscopy on 12/24/21; showed Tubular Adenoma, she was recommended to repeat in 3 years. - pt has been using castor oil - continue trying fiber-rich diet and increasing physical activity as tolerated. 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 Tsai is prescribing Dapagliflozin (Farxiga) - Previously on Lisinopril, but was disccontinued due to cough / K - Avoid nephrotoxic drugs - Renal dose meds Gastroesophageal reflux disease 10/12/2022 Overview (08/25/2024): Last Assessment & Plan: -s/p EGD 12/24/21 -followed by [facility] -continue omeprazole 40mg daily -previously tried pantoprazole and lansoprazole; pt prefers omeprazole. -previously prescribed famotidine. Max dose for her renal function is 20 mg daily. Pt does not take it regularly. Irritable bowel syndrome 10/12/2022 Overview (08/25/2024): Last Assessment & Plan: - followed by [facility] - continue current treatment plan per GI - low FODMAP diet - pt is prescribed simethicone, Sennakot, citrucel, but does not like taking it regularly Osteopenia 10/12/2022 Atrial fibrillation ([facility] V24, [facility] V28) 0 12/25/2021 Cobalamin deficiency 12/25/2021 Diabetic retinopathy ([facility] V24, [facility] V28) 12/25/2021 Nephrolithiasis 12/25/2021 Overview (08/25/2024): Last Assessment & Plan: - seen by urologist, last visit on Vitamin D deficiency 12/25/2021 Diabetic peripheral neuropat hy associated with type 2 diabetes mellitus ([facility] V24, [facility] V28) 11/22/2019 Nonrheumatic mitral valve regurgitation 11/09/20 Nonrheumatic tricuspid valve regurgitation 11/09 Obstructive sleep apnea syndrome 11/09/2019 Overview (08/25/2024): Last Assessment & Plan: - Pt does not feel comfortable with CPAP SOB (shortness of breath) 11/09/2019 Type 2 diabetes mellitus wit hout complication ([facility] V24, [facility] V28) 11/09/2019 Arthritis 03/03/2019 Chronic cough 01/26/2019 Moderate persistent asthma with acute exacerbati on 01/26/2019 Pulmonary hypertension ([facility] V24, [facility] V28 ) 12/31/2018 Pulmonary arterial hypertension ([facility] V24, [facility] V28) 11/19/2018 Ulcer of foot ([facility] V24, [facility] V28) 011 Encounters Date Type Department Care Team Description 05/19/2025 2:15 PM EDT Office Visit Orthopedic Surgery [facility] [address] [phone] Damien Centeno DPM Controlled type 2 diabetes mellitus with diabetic polyneuropathy, without long-term current use of insulin ([facility] V24, [facility] V28) (Primary Dx); Capsulitis of metatarsophalangeal (MTP) joint of right foot; Arthritis of both midfeet; Pain in toes of both feet; Onychomycosis; Callus 03/17/2025 2:00 PM EDT Office Visit Orthopedic Surgery [facility] [address] [phone] Damien Centeno DPM Controlled type 2 diabetes with neuropathy ([facility] V24, [facility] V28) (Primary Dx); Capsulitis of [...] PM EDT Office Visit Orthopedic Surgery - [address] [phone] Damien Centeno DPM [address] [address] Health Maintenance Due Date Last Done Comments [...] 12/10/2023 Social Influencers of Health Screening 12/10/2023 Depression Screening 11/10/2024 COVID-19 Vaccine (5 - Pfizer risk season) 2025 08/06/2024, 08/31/2021, 03/05/2021, Additional history exists Influenza Vaccine (#1) 2025 , 09/23/2023, 10/14/2022, Additional history exists Diabetes: Blood Sugar Control Test (HGBA1C) 10/12/2025 04/12/2025, 01/17/2025, 07/19/2024, Additional history exists Diabetes: Annual GFR (Glomerular Filtration Rate) 04/22/2026 [...] Test (12/30/2023) Annual BMP Blood Test Abstracted [facility] Provider HEALTH MAINTENANCE Final Result * Hemoglobin A1c (12/30/2023) Pathologist [facility] Hemoglobin A1C 0.0 % Comment:no interpretation Blood Venous blood specimen / Unknown Result [facility] Provider LAB BLOOD ORDERABLES Machelle l Result * Lipid panel (12/30/2023) Pathologist [facility] Triglycerides 0 mg/dL Comment:no interpretation Cholesterol 0 mg/dL Comment:no interpretation HDL 0 mg/dL Comment:no interpretation LDL Cholesterol 0 mg/dL Comment:no interpretation Blood Venous blood specimen / Unknown Result [facility] Provider LAB BLOOD ORDERABLES Machelle l Result * Urine Albumin Creatinine Ratio (07/24/2022) Pathologist [facility] Urine Albumin Creatinine Ratio Abstracted [facility] Provider HEALTH MAINTENANCE Final Result from Last 3 Months or Most Recently Relevant to Health Maintenance Insurance MEDICAID - [place] Care Teams Manager Review Relationship Specialty Start Date End Date Machelle Swann MD [address] [place] [address] [place] [address] PCP - General 10/15/12
--- OUTSIDE RECORDS SUMMARY | 2025-06-06 13:33 | XMS_ITS | Encounter Summary ---
Author Organization [facility] Address [address] [address] Phone Care Team Providers Care Audio/Video Technician Name Role Phone Maranda Serna MD Primary Care Provider [phone] Encounter Details Date Type Department Care Team (Late st Contact Info) Description 01/25/2025 Office Communication [facility] [address] [place] [address] Marci Gleason ARNP [address] [address] Social History Tobacco Use Types Packs/Day Years Used Date Smoking Tobacco: Never Smokeless Tobacco: Never Alcohol Use Standard Drinks/Week Comments Yes 0 (1 standard drink = 0.6 oz pure alcohol) Intermittently Hot Amanda. Tea with [place] only if sick Comments Unknown Sex and Gender Information Value Date Recorded Sex Assigned at Not on file Legal Sex Female 5:18 PM EST Gender Identity Not on file Sexual Orientation Not on file documented as of this encounter Plan of Treatment Upcoming Encounters Date Type Department Care Team (Late st Contact Info) Description 06/10/2025 Orders Only [facility] [address] [address] Marci Gleason ARNP [address] [address] Stage 3b chronic kidney disease (HCC); Anemia in chronic kidney disease; Proteinuria, not otherwise specified 07/26/2025 2:00 PM EDT Office Visit [facility] [address] [phone] Mraci Gleason ARNP [address] [address] documented as of this encounter Visit Diagnoses Not on filedocumented in this encounter Care Teams Audio/Video Technician Relationship Specialty Start Date End Date Maranda Serna MD [address] [place] [address] PCP - General Family Medicine 08/24/21 documented as of this encounter
--- OUTSIDE RECORDS SUMMARY | 2025-06-06 13:34 | XMS_ITS | Clinical Summary ---
Author Organization [facility] Address [address] [place] [address] Care Team Providers Care Data Entry Analyst Name Role Phone ChapispriscillaViet Primary Care Provider [phone] Allergies Active Allergy Reactions Criticality Noted Date [...] age to complete this topic Care Teams Data Entry Analyst Relationship Specialty Start Date End Date Viet Sánchze [address] [place] [address] PCP - General Medical Services 06/19/18
--- OUTSIDE RECORDS SUMMARY | 2025-06-06 13:34 | XMS_ITS | Clinical Summary ---
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 - Will obtain lab work. Also curious to see radiographic imaging of the hands, feets, SI and lumbar spine. Will obtain interval history from back sewer Karlee Le. - RTC in 4 [...] polyneuropathy, with long-term current use of insulin ([facility]) POCT HEMOGLOBIN, A1C Routine 02/09/2019 8:10 AM EDT Type 2 diabetes mellitus with diabetic polyneuropathy, with long-term current use of insulin ([facility]) HIV COMBO ANTIGEN/ANTIBODY Routine 10/06/2018 3:59 PM EST Polyarthralgia from Last 3 Months or Most Recently Relevant to Health Maintenance Results * Microalbumin/creatinine ratio (02/09/2019 10:15 AM EDT) Microalbumin/Creat Ratio 20 2 - 20 mg/g Creat 02/09/2019 11:55 AM EDT [facility] Creatinine, Urine, Random 101 mg/dL 02/09/2019 11:55 AM EDT [facility] Comment: The laboratory does not have established reference ranges for this test. Interpretation of results is at the discretion of the ordering physician. Urine specimen (specimen) Urine specimen obtained by clean catch procedure / Unknown Non-blood Collection / Unknown 02/09/2019 10:15 AM EDT 02/09/2019 10:15 AM EDT us Keke Katz APRN LAB URINE ORDERABLES Final Res ult [facility] [address] [place] [address], [place] [phone] * POCT hemoglobin, A1c (02/09/2019 8:10 AM EDT) POCT Hemoglobin A1C 9.2 4.4 - 6.4 % Blood specimen (specimen) 02/09/2019 8:10 AM EDT us Keke Katz PASTEURIZING SUPERVISOR POCT ORDERABLES NO CHARGE Machelle l Result * HIV combo antigen/antibody (10/06/2018 3:59 PM EST) HIV Combo AB/AG Negative Negative 10/06/2018 6:02 PM EST [facility] Blood specimen (specimen) Venous blood specimen / Unknown Venipuncture / Unknown 10/06/2018 3:59 PM EST 10/06/2018 3:59 PM EST Narrative [facility] - 10/06/2018 6:02 PM EST This test is a 4th generation HIV Antigen-Antibody Combination assay, using a chemiluminescent microparticle immunoassay, for the simultaneous qualitative detection of human immuno- deficiency virus (HIV) p24 antigen and antibodies to HIV type 1 (HIV-1) and/or HIV type 2 (HIV-2) in human serum or plasma. The [employer] HIV Ag/Ab Combo assay is intended to [...] BLOOD ORDERABLES NO ST AT Final Result [facility] [address] [place] [address], [place] [phone] from Last 3 Months or Most Recently Relevant to Health Maintenance Insurance MEDICAID [place] D Care Teams Compressor Station Engineer Relationship Specialty Start Date End Date Viet Sánchez PA [address] [place] [address] PCP - General Family Medicine 07/22/18
--- OUTSIDE RECORDS SUMMARY | 2025-06-06 13:34 | XMS_ITS | Data Portability ---
Author Organization [place] [facility] Address [address] [facility] [address] [place] [address] Care Team Providers Care Rigging Helper Name Role Phone PINA PLATA Primary Care Provider Assessment No assessment recorded. Plan of Treatment Reminders Order Date Submit Date Provider Last Modified By Organization Details Last Modified Time Details Appointments None recorded. Lab None recorded. Referral None recorded. Procedures None recorded. Surgeries None recorded. Imaging CT, neck, soft tissue, w/ contrast - evaluate lingual tonsil hyperophy [address] [facility], [address] [place] [address], [address], 4 12:06:24 [place], modified barium swallow study 2023 024 [facility], [address] [place] [address], [address], 4 15:47:26 Medication Orders None recorded. Patient TargetsNo targets recorded. Patient InstructionsNo instructions recorded. Reason for Referral None Reported. Results Created Date Observation Date Name Description Value Unit Range Abnormal Flag Note LastModifiedBy Organization Detail LastModifiedTime 07/29/20 24 07/29/2024 [place], modif ied izaiah mccabe ow study No observ ation record ed. reppsteiner [facility] [address] [facility] [address], [place], [address], 08/02/2024 14:43:11 09/28/20 24 09/25/2024 MRI, head + neck + orbit s, w/wo contr ast [facility] Access ion Number : [id number] Patiyee t Name: Ese Mendoza Record Number : [id number] Date of : 1959 Date of Exam: 2023 Referr daniel scalesn: Vineet nicholas, Genaro [facility] [place] [address] [place] [address] Exam: MR Orbits , Face, Neck (C-/C+ ) CPT 22641 Room Descri ption: [facility] Pion 3T MRI of the soft [...] Electr onical ly Signed By: Vikram mike [facility] ([facility]) [address] [place], [address], 10/01/2024 16:52:47 Result Notes Documentation Provider Name and Address Organization Details Recorded Time Mri, Head + Neck + Orbits, W/wo Contrast : [facility] Accession Number: [id number] Patient Name: Ese Mendoza Date of : 1960 Date of Exam: 09-25-2024 Referring Physician: Genaro Pelaez [facility] [address] [address] Exam: MR Orbits, Face, Neck (C-/C+) CPT 62736 Room Description: [facility] 3T MRI of the soft tissues neck without and with contrast. HISTORY: Headaches. Problem with swallowing. Comparison: None FINDINGS: Small old lacunar infarcts are seen in the visualized khushbu. No abnormal enhancement. The airway is patent. There is no definite mass, abnormal signal or abnormal enhancement within the nasopharynx, oropharynx as and the larynx. The tongue appears symmetrical with normal signals. No focal lesion. Bilateral parotid glands and submandibular glands show no focal abnormalities or abnormal enhancement. The thyroid lobes show heterogeneous signals. There is a 9 mm hyperintense T2 nodule in the right thyroid lobe. No further workup is needed per ACR criteria. There is no lymphadenopathy throughout the soft tissues neck. Postcontrast images show no abnormal enhancement. The cervical spine shows mild spondylosis on the sagittal images. The details are limited . Status post right lens extraction. 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 Please correlate clinically. Minimal mucosal thickening is seen in the frontal and ethmoid sinuses. IMPRESSION: No definite mass is seen in the pharynx and larynx. The airway is patent. A small right thyroid nodule is noted. No further workup is needed per ACR criteria. 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 Procedures Surgical History Date Name Laterality Status Provider Name and Address Organization Details Recorded Time 07/01/2024 FFL_RE completed GENARO PELAEZ MD [address] [address], [place], [address], [facility] 07/01/2024 12:01:28 Imaging Results None recorded. Procedure Notes None recorded. Medical Equipment None Reported. Allergies Allergen ID Allergen Name Allergen Category Reaction Reaction Severity Criticality Documentation Date Start Date Code Code System Note Provider Name and Address Organization Details Recorded Time 683303 rubber, unspecifi ed environme nt,medica tion Not available Not available Not available 07/01/2024 [address] [facility] 4 11:45:16 056106 pork allergeni c extract food,medi cation Not available Not available Not available 07/01/2024 20848 [address] [facility] 4 11:45:41 Medications Name Sig Start Date Stop Date Status Note LastModified by Organization Details LastModified Time amoxicillin 500 mg capsule TAKE 1 CAPSULE BY MOUTH THREE TIMES DAILY UNTIL GONE 07/01 completed Not Available Not Available Not Available atorvastati n 80 mg tablet TAKE 1 TABLET BY MOUTH ONCE DAILY active Not Available Not Available No t Available acetaminoph en 325 mg tablet TAKE 1 TABLET BY MOUTH EVERY 6 HOURS NEEDED FOR PAIN active Not Available Not Available No t Available carvedilol 6.25 mg tablet TAKE 1 TABLET BY MOUTH TWICE DAILY active Not Available Not Available No t Available ammonium lactate 12 % lotion APPLY TABLET TO THE soles OF THE FEET EVERY DAY DIRECTED, wear socks TO bed AT NIGHT active Not Available Not Available No t Available cetirizine 5 mg tablet TAKE 1 TABLET BY MOUTH EVERY MORNING 07/01 completed Not Available Not Available Not Available senna 8.6 mg tablet TAKE 1 TABLET BY MOUTH TWICE DAILY NEEDED FOR CONSTIPAT ION active Not Available Not Available No t Available isosorbide mononitrate ER 30 mg tablet,exte nded release 24 hr TAKE 1 TABLET BY MOUTH ONCE DAILY active Not Available Not Available No t Available cyanocobala min (vit B-12) 1,000 mcg tablet TAKE 1 TABLET BY MOUTH ONCE DAILY active Not Available Not Available No t Available clopidogrel 75 mg tablet TAKE 1 TABLET BY MOUTH ONCE DAILY active Not Available Not Available No t Available omeprazole 40 mg capsule,del ayed release TAKE 1 CAPSULE BY MOUTH ONCE DAILY active Not Available Not Available No t Available acetaminoph en 500 mg tablet TAKE [...] completed Not Available Not Available Not Available Pred Forte 1 % eye drops,suspe nsion PLACE 1 DROP IN THE LEFT EYE FOUR TIMES DAILY active Not Available Not Available No t Available cephalexin 500 mg tablet TAKE 1 TABLET BY MOUTH THREE TIMES DAILY IN THE MORNING, EVENING, AND BEDTIME FOR 7 DAYS 07/01 completed Not Available Not Available Not Available simethicone 125 mg chewable tablet CHEW AND SWALLOW 1 TABLET 2 TO 3 TIMES DAILY NEEDED FOR ABDOMINAL DISTENTIO N active Not Available Not Available No t Available hydroxyzine HCl 25 mg tablet TAKE [...] estradiol 0.01% (0.1 mg/gram) vaginal cream APPLY a A PEA SIZED AMOUNT TO THE uretha EVERY DAY AT BEDTIME DIRECTED active Not Available Not Available No t Available ferrous sulfate 325 mg (65 mg iron) tablet,partha yed release TAKE 1 TABLET BY MOUTH EVERY OTHER DAY active Not Available Not Available No t Available amoxicillin 875 mg-potassiu m clavulanate 125 mg tablet TAKE 1 TABLET BY MOUTH TWICE DAILY FOR 10 DAYS active Not Available Not Available No t Available insulin lispro (U-100) 100 unit/mL subcutaneou s pen INJECT 14 UNITS SUBCUTANE OUSLY THREE TIMES DAILY BEFORE MEALS active Not Available Not Available No t Available FreeStyle Lite Strips USE 1 STRIP TO CHECK GLUCOSE THREE TIMES DAILY DIRECTED active Not Available Not Available No t Available FreeStyle [place] Lite kit USE DIRECTED TO TEST BLOOD SUGAR THREE TIMES DAILY active Not Available Not Available No t Available diclofenac 1 % topical gel APPLY 4 GRAMS TOPICALLY TO AFFECTED AREA(S) THREE TIMES DAILY active Not Available Not Available No t Available Easy Touch 31 gauge x 5/16 needle USE DIRECTED THREE TIMES DAILY active Not Available Not Available No t Available fesoterodin e ER 8 mg tablet,exte nded release 24 hr TAKE 1 TABLET BY MOUTH ONCE DAILY active Not Available Not Available No t Available Breo Ellipta 100 mcg-25 mcg/dose powder for inhalation INHALE 1 PUFF BY MOUTH ONCE DAILY active Not Available Not Available No t Available Farxiga 10 mg tablet TAKE 1 TABLET BY MOUTH EVERY DAY active Not Available Not Available No t Available Farxiga 5 mg tablet TAKE 1 TABLET BY MOUTH ONCE DAILY IN THE MORNING active Not Available Not Available No t Available Tresiba FlexTouch U-100 insulin 100 unit/mL (3 mL) subcutaneou s pen INJECT 62 UNITS SUBCUTANE OUSLY EVERY DAY active Not Available Not Available No t Available OneTouch Delica Plus Lancet 33 gauge USE 1 LANCET TO CHECK GLUCOSE THREE TIMES DAILY active Not Available Not Available No t Available FreeStyle Doug 2 Sensor kit USE DIRECTED CHANGE EVERY 14 DAYS active Not Available Not Available No t Available FreeStyle Doug 2 [place] USE DIRECTED active Not Available Not Available No t Available Vitals Date Recorded Body height Body mass index (BMI) Body weight Provider Name and Address Organization Details Last Updated DateTime 05/17/2025 157.48 cm 38.4 kg/m2 08002.4 g Shelly Ontiveros [place] [facility] 05/17/2025 15:55:10 Date Recorded Body height Body mass index (BMI) Body weight Provider Name and Address Organization Details Last Updated DateTime 07/01/2024 157.48 cm 38.4 kg/m2 63265.4 g Ashu Gutiérrez [place] [facility] 07/01/2024 11:54:39 Social History None recorded. Functional Status None recorded. Mental Status None recorded. Family History Nothing Reported. Medical History No medical history recorded. Gynecological HistoryNo gynecological history recorded. Obstetrics History GPAL:G 0 P 0 0 0 0 Past Encounters Encounter ID Performer Location Encounter Start Date Encounter Closed Date Diagnosis/Indication Diagnosis SNOMED-CT Code Diagnosis ICD10 Code Diagnosis Note [id number] GENARO PELAEZ MD [facility] [address] [address] 07/01/2024 11:04:43 07/01/2024 12:01:09 Oropharyngeal dysphagia 93873746 R13.12 I recommend an MBS to better evaluate. Benign joy plasm of oropharynx 67583703 D10.5 she has symmetric lingual tonsil hypertroph y on laryngosoc py. I will evaluate with a contrasted CT to make sure there are no tumors. Dysphagia 15642480 R13.1 0 see above [id number] GENARO PELAEZ MD [facility] [address] [address] 05/17/2025 15:47:39 05/17/2025 16:14:42 Oropharyngeal dysphagia 52369621 R13.12 I recommend an MBS to better evaluate. Benign joy plasm of oropharynx 41721111 D10.5 I personally reviewed her MRI which was negative. I gave reassuranc e. She may f/u as needed. Dysphagia 98106451 R13.1 0 recommend f/u with GI. Health Concerns Section Related Observation LastModified by Organization Detai ls LastModified Time None Recorded Concern Status LastModified by Organization Details LastModified Time None Recorded Advance Directives Directive None Recorded Payers Insurance Date Sequence Insurance Name Policy Number Policy Singer Covered Member ID Singer Member ID Guarantor Name 05/17/2025 1 MEDICAID-[place]: [facility] Ese Mendoza [id number] Ese Mendoza 05/17/2025 1 [place] - [facility] (MEDICAID) Ese Mendoza [id number] Ese Mendoza OBGyn Episode No OBEpisode recorded.
--- OUTSIDE RECORDS SUMMARY | 2025-06-06 13:34 | XMS_ITS | Patient Health Record ---
Author Organization [facility] Address [address] [facility] [id number] [place] [address] Care Team Providers Care Caddy Packer Name Role Phone Larisa Saldana Primary Care Provider [phone] ALLERGIES Allergen (clinical drug ingredient) Drug/Non Drug [...] diabetes mellitus without complications (E11.9) Active confirmed 131443646 Problem Type 2 diabetes mellitus with diabetic polyneuropathy (E11.42) Active confirmed 49253900 Problem Other chronic pain (G89.29) Active confirmed 28205360 Problem Age-related nuclear cataract, bilateral (H25.13) Active confirmed Nuclear senile cataract (541057043) Problem Diabetes (E11.9) Active confirmed Type II diabetes mellitus without complication (068854441) Problem Dyslipidemia (E78.5) Active confirmed 602055044 Problem HTN (hypertension) (I10) Active confirmed Hypertension (35006177) Problem Arthritis (M19.90) Active confirmed 372 3001 Problem jail current use of insulin (Z79.4) Active confirmed 953100594 Problem Controlled diabetes mellitus with diabetic neuropathy (E11.40) Active confirmed Diabetic peripheral neuropathy associated with type 2 diabetes mellitus (9814351998289) Problem Type 2 diabetes mellitus with mild nonproliferative diabetic retinopathy without macular edema, 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
== END 2025-06-06 12:53 | disposition home or self-care (01) ==
LOC: HO.US 12:52
PROVIDERS: PCP Family Medicine; Visit Provider Family Medicine
DX: E04.1 Nontoxic single thyroid nodule (principal)
CPT/HCPCS: 76536

== ENCOUNTER → 2025-06-06 12:54 | Outpatient (BNV) | payer MEDICAID, SELFPAY | PROVIDERS: PCP Family Medicine; Visit Provider Radiology Diagnostic Radiology | DX: E04.2 Nontoxic multinodular goiter (principal) | CPT/HCPCS: 76536 ==

== ENCOUNTER 2025-06-17 13:36 | Outpatient (AMB) | payer MEDICAID, SELFPAY ==
--- NOTE | 2025-06-17 13:38 | A.OFFVIS_ITS ---
Vital Signs 06/17/25 13:44 Height 5 ft 2 in Weight 201 lb 0.985 oz BMI 36.8 BP 116/56 L Blood Pressure Location Rt brachial Position Sitting Pulse 106 H Pulse Source Pulse Oximeter Pulse Oximetry (%) 96 Oxygen Delivery Method Room Air Intake Visit Reasons: 2 mo Intake Note: ESTABLISHED PATIENT for GERD, IBS mgmt. Chief Complaint; C.O. upper abd pain, GERD, multiple IBS episodes. Pt states she has had multiple dietary changes that she believes have had a negative impact on her condition. 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 Avoid dietary triggers and late night snacking. Staying upright for minimum 3 hours after meals discussed with patient. Patient will be seeing her vocational nursing instructor in May. Will ask for risk stratification as patient is due to go for colonoscopy and endoscopy. Discussed with patient low FODMAP diet. List of food recommended as well as list of food to avoid given to patient. Simethicone ordered for patient. Patient will return to the office end of May. Will send her for more allergy testing. Patient wants to be tested if she is truly allergic to pork. Patient is agreeable to this plan and verbalizes understanding of instructions. She was given the opportunity to ask questions and all questions answered. ? Thank you for allowing me to participate in her care New simethicone (Gas Relief (simethicone)) 125 mg PO BID-TID PRN 90 tabs 3RF abdominal distention omeprazole 40 mg (2 x 20 mg) PO DAILY 180 tabs 2RF K21.9 TODAY'S VISIT Patient is here today for follow-up. Patient reports that she continues to have abdominal bloating and abdominal pain in right upper quadrant. Patient reports that her pain is worse than she feels like she has a large ball sticking out sometimes. Patient had cholecystectomy many years ago. Patient had open surgery in has a large postsurgical scar. Patient reports that she moves her bowels well, however she does not empty them completely. Patient is drinking senna tea and reports that it helps. Patient tried senna tablets, however it was causing her to have cramping. Patient reports that she is drinking fluids. Cleared by Cardiology with intermediate risk for that colonoscopy. Patient reports that omeprazole helps with acid reflux PFSH Medical History Pancreatic insufficiency Pancreatic insufficiency Tubular adenoma CKD (chronic kidney disease) Anemia GERD (gastroesophageal reflux disease) Renal cyst Bladder prolapse, female, acquired Hx of gastric ulcer IBS (irritable bowel syndrome) Kidney stones High cholesterol Diabetes Surgical History Hx of endoscopy Hx of colonoscopy History of partial hysterectomy Hx of breast reduction, elective Hx of cholecystectomy Family History Father Heart attack DM2 (diabetes mellitus, type 2) Mother DM2 (diabetes mellitus, type 2) COPD (chronic obstructive pulmonary disease) Other No pertinent family history Social History Household Members: Family Housing: House Do you presently have visiting nurse or other home services: No Unable to assess alcohol history related to: Unknown Alcohol intake: never Patient Tobacco Use Status: Never used Tobacco Second Hand Smoke Exposure: No service: No Physical Exam Vital Signs: Last Vital Signs Pulse 106 H 06/17/25 13:44 BP 116/56 L 06/17/25 13:44 Pulse Ox 96 06/17/25 13:44 Oxygen Delivery Method Room Air 06/17/25 13:44 BMI result Body Mass Index 36.8 Const General: healthy appearing and no acute distress Nutritional Appearance: obese Orientation/consciousness: patient oriented x3 Resp Effort & Inspection: normal respiratory effort, able to speak in complete sentences, no tracheal deviation and symmetric chest movement Auscultation: clear to auscultation bilaterally Cardio Rate: regular rate Heart sounds: S1 normal heart sound present and S2 normal heart sound present GI Inspection: No distended, Yes incision (Old surgical scar to right upper quadrant), Yes obesity and Yes other (Tenderness around surgical scar concern for adhesions versus hernia) Palpation (GI): Soft to palpation, not firm, nontender and No hepatosplenomegaly present Auscultation: normal bowel sounds General: Yes no CVA tenderness Back/Spine/Pelvis Back: no CVA tenderness Skin General skin exam: elasticity normal, turgor normal and dry skin Neuro General: patient oriented x3 Psych Appearance: grossly normal Mental Status: mental status grossly normal Assessment & Plan Assessment & Plan (1) GERD (gastroesophageal reflux disease): Code(s): K21.9 - Gastro-esophageal reflux disease without esophagitis Category: Medical Qualifiers: Esophagitis presence: esophagitis presence not specified Qualified Code(s): K21.9 - Gastro-esophageal reflux disease without esophagitis (2) Pancreatic insufficiency: Code(s): K86.89 - Other specified diseases of pancreas Category: Medical (3) IBS (irritable bowel syndrome): Code(s): K58.9 - Irritable bowel syndrome, unspecified Category: Medical Qualifiers: Irritable bowel syndrome type: with constipation Qualified Code(s): K58.1 - Irritable bowel syndrome with constipation (4) Postprandial abdominal bloating: Code(s): R14.0 - Abdominal distension (gaseous) (5) Diarrhea: Code(s): R19.7 - Diarrhea, unspecified Qualifiers: Diarrhea type: functional diarrhea Qualified Code(s): K59.1 - Functional diarrhea Plan Patient will be sent for ultrasound to see if there is hernia in the right upper quadrant. Patient has significant tenderness to right upper quadrant around her surgical scar. Questioning adhesions versus ventral hernia. Referral to General surgery. Patient will try to take Dulcolax daily or every other day. Increase fluid intake and activity to promote better bowel motility. Continue omeprazole daily. Avoid dietary triggers in late night snacking. Staying upright her minimal 3 hours after meals discussed with patient. Patient will be seen in the office in 5 weeks to discuss going for colonoscopy and endoscopy. Message sent to Surgical schedulers to book procedure patient. Patient is agreeable to current plan of care and verbalizes understanding of instructions. She was given the opportunity to ask questions and all questions answered. Thank you for allowing me to participate in her care Orders: Orders US abdomen limited Today R10.11 - Right upper quadrant pain Referrals General Surgery Referral K42.9 - Umbilical hernia without obstruction or gangrene Medications: New bisacodyl (Dulcolax (bisacodyl)) 5 mg PO BEDTIME 30 tabs 4RF Coding Level of Care Code Est Pt Level 4 (78530) Complex EM visit Add On G2211 Diagnoses Gastroesophageal reflux disease, unspecified whether esophagitis present K21.9 Esophagitis presence: esophagitis presence not specified Pancreatic insufficiency K86.89 Irritable bowel syndrome with constipation K58.1 Irritable bowel syndrome type: with constipation Postprandial abdominal bloating R14.0 Functional diarrhea K59.1 Diarrhea type: functional diarrhea Time Spent (min) 35 Comment 25 minutes spent with patient and additional 10 minutes spent reviewing her records
--- OUTSIDE RECORDS SUMMARY | 2025-06-17 13:40 | XMS_ITS | Clinical Summary ---
Author Organization [address] [facility] Address [address] [place] [address] Phone Care Team Providers Care Purchasing Expeditor Name Role Phone Machelle Swann MD Primary Care Provider [phone] Allergies Active Allergy Reactions Criticality Noted Date [...] 42 mcg (0.06 %) nasal spray 1 [place] by Nasal route. 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 -Follow up in 3-6 mo, sooner if [...] Assessment & Plan: - followed by [facility] - no anatomical pancreatic abnormality on MRI in Dec 2022 - continue vegan / plant-based pancreatic enzyme Right knee pain 12/16/2022 Allergic rhinitis 10/12/2022 Anemia 10/12/2022 Overview (08/25/2024): Last Assessment & Plan: - likely due to chronic diseaes - Hx iron infusion - 12/24/22 Hgb 11.7, Hematocrit 35.7 Chronic idiopathic constipation 10/12/2022 Overview (08/25/2024): Last Assessment & Plan: -Followed by [facility], last seen 08/06/22 -EGD and Colonoscopy on 12/24/21; showed Tubular Adenoma, she was recommended to repeat in 3 years. - pt has been using castor oil - continue trying fiber-rich diet and increasing physical activity as tolerated. - continue Senakot as prescribed Chronic kidney disease, stag e III (moderate) ([facility] V24, [facility] V28) 10/12/2022 Overview (08/25/2024): Last Assessment & Plan: - Vp Digital Marketing Social Media And Crm, Dr. 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 Tsai is prescribing Dapagliflozin (Farxiga) - Previously on Lisinopril, but was disccontinued due to cough / K - Avoid nephrotoxic drugs - Renal dose meds Gastroesophageal reflux disease 10/12/2022 Overview (08/25/2024): Last Assessment & Plan: -s/p EGD 12/24/21 -followed by [facility] -continue omeprazole 40mg daily -previously tried pantoprazole and lansoprazole; pt prefers omeprazole. -previously prescribed famotidine. Max dose for her renal function is 20 mg daily. Pt does not take it regularly. Irritable bowel syndrome 10/12/2022 Overview (08/25/2024): Last Assessment & Plan: - followed by [facility] - continue current treatment plan per GI - low FODMAP diet - pt is prescribed simethicone, Sennakot, citrucel, but does not like taking it regularly Osteopenia 10/12/2022 Atrial fibrillation ([facility] V24, [facility] V28) 0 12/25/2021 Cobalamin deficiency 12/25/2021 Diabetic retinopathy ([facility] V24, [facility] V28) 12/25/2021 Nephrolithiasis 12/25/2021 Overview (08/25/2024): Last Assessment & Plan: - seen by urologist, last visit on Vitamin D deficiency 12/25/2021 Diabetic peripheral neuropat hy associated with type 2 diabetes mellitus ([facility] V24, [facility] V28) 11/22/2019 Nonrheumatic mitral valve regurgitation 11/09/20 Nonrheumatic tricuspid valve regurgitation 11/09 Obstructive sleep apnea syndrome 11/09/2019 Overview (08/25/2024): Last Assessment & Plan: - Pt does not feel comfortable with CPAP SOB (shortness of breath) 11/09/2019 Type 2 diabetes mellitus wit hout complication ([facility] V24, [facility] V28) 11/09/2019 Arthritis 03/03/2019 Chronic cough 01/26/2019 Moderate persistent asthma with acute exacerbati on 01/26/2019 Pulmonary hypertension ([facility] V24, [facility] V28 ) 12/31/2018 Pulmonary arterial hypertension ([facility] V24, [facility] V28) 11/19/2018 Ulcer of foot ([facility] V24, [facility] V28) 011 Encounters Date Type Department Care Team Description 05/19/2025 2:15 PM EDT Office Visit Orthopedic Surgery [facility] [address] [phone] Damien Centeno DPM Controlled type 2 diabetes mellitus with diabetic polyneuropathy, without long-term current use of insulin ([facility] V24, [facility] V28) (Primary Dx); Capsulitis of metatarsophalangeal (MTP) joint of right foot; Arthritis of both midfeet; Pain in toes of both feet; Onychomycosis; Callus 03/17/2025 2:00 PM EDT Office Visit Orthopedic Surgery [facility] [address] [phone] Damien Centeno DPM Controlled type 2 diabetes with neuropathy ([facility] V24, [facility] V28) (Primary Dx); Capsulitis of metatarsophalangeal [...] PM EDT Office Visit Orthopedic Surgery - [address] [phone] Damien Centeno DPM [address] [address] Health Maintenance Due Date Last Done Comments [...] Test (12/30/2023) Annual BMP Blood Test Abstracted [facility] Provider HEALTH MAINTENANCE Final Result * Hemoglobin A1c (12/30/2023) Pathologist [facility] Hemoglobin A1C 0.0 % Comment:no interpretation Blood Venous blood specimen / Unknown Result [facility] Provider LAB BLOOD ORDERABLES Machelle l Result * Lipid panel (12/30/2023) Pathologist [facility] Triglycerides 0 mg/dL Comment:no interpretation Cholesterol 0 mg/dL Comment:no interpretation HDL 0 mg/dL Comment:no interpretation LDL Cholesterol 0 mg/dL Comment:no interpretation Blood Venous blood specimen / Unknown Result [facility] Provider LAB BLOOD ORDERABLES Machelle l Result * Urine Albumin Creatinine Ratio (07/24/2022) Pathologist [facility] Urine Albumin Creatinine Ratio Abstracted [facility] Provider HEALTH MAINTENANCE Final Result from Last 3 Months or Most Recently Relevant to Health Maintenance Insurance [place] Care Teams Purchasing Expeditor Relationship Specialty Start Date End Date Machelle Swann MD [address] [place] [address] [place] [address] PCP - General 10/15/12
--- OUTSIDE RECORDS SUMMARY | 2025-06-17 13:40 | XMS_ITS | Clinical Summary ---
Author Organization [employer] Address [address] [facility] [address] [place] [address] Care Team Providers Care Mva Operator Name Role Phone Maranda Serna MD Primary Care Provider [phone] Allergies Active Allergy Reactions Criticality Noted Date [...] 2 12/13/19 25 Active Easy Touch Pen Arnold 31G X 8 MM miscIndications :Type 2 diabetes mellitus with hyperglycemia, with long-term current use of insulin ([facility]) USE [...] tablet Take 75 mg by mouth. 12/01/19 25 Active dapagliflozin (Farxiga) 5 MG Take 5 [...] by mouth every other day. 45 tablet 04/12/20 25 Active cyanocobalamin (Vitamin B-12) 1000 MCG tablet Take 1 tablet (1,000 mcg) by mouth Once per day. 90 tablet 04/12/20 25 026 Active OneTouch Delica Lancets 33G misc 1 each 3 times daily. 100 each 04/12/20 25 Active TRUEplus Lancets 33G miscIndications :Type 2 diabetes mellitus with hyperglycemia, with long-term current use of insulin ([facility]) TEST BLOOD SUGAR THREE TIMES DAILY 100 each 04/12/20 25 Active simethicone (Mylicon) 125 MG chewable tablet Chew 1 tablet (125 mg) every 6 (six) hours if needed for flatulence. 100 tablet 04/22/20 25 Active Acetaminophen Extra Strength 500 MG tablet TAKE 1 TO 2 TABLETS BY MOUTH EVERY 8 HOURS NEEDED FOR PAIN OR FEVER 90 tablet 04/25/20 25 Active glucose blood test stripIndication s:Type 2 diabetes mellitus with hyperglycemia, with long-term current use of insulin ([facility]) OneTouch brand. TEST BLOOD SUGAR THREE TIMES DAILY 100 each 05/04/20 25 026 Active glucose blood (FREESTYLE LITE) test stripIndication s:Type 2 diabetes mellitus with stage 3b chronic kidney disease, with long-term current use of insulin ([facility]) USE TO TEST BLOOD SUGAR THREE TIMES A DAY 100 each 05/19/20 25 Active Blood Glucose Monitoring Suppl (FreeStyle Lite) w/Device kitIndications: Type 2 diabetes mellitus with stage 3b chronic kidney disease, with long-term current use of insulin ([facility]) 1 Dose by Other route 3 times daily. USE TO TEST BLOOD SUGAR THREE TIMES A DAY 1 kit 05/19/20 25 Active TRUEplus Lancets 33G miscIndications :Type 2 diabetes mellitus with stage 3b chronic kidney disease, with long-term current use of insulin ([facility]) USE TO TEST BLOOD SUGAR THREE TIMES A DAY 100 each 3 05/19/20 25 Active Active Problems Problem Noted Date Diagnosed Date Gas pain 04/22/2025 Assessment & Plan (04/22/2025 3:38 PM EDT): - Patient requests simethicone tablet form not capsule. 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[place] [facility] last seen in Dec 2024 -11/30/2024- Cardiac catheterization showed [id number] distal LAD disease with severe distal stenosis [...] Assessment & Plan (01/21/2025 12:33 PM EDT): -Blackjack Dealer: [facility] last seen in Dec 2024 -11/30/2024- Cardiac catheterization showed [id number] distal LAD disease with severe distal stenosis [...] and supportive care - follow up with heel former as scheduled Assessment & Plan (07/23/2024 9:02 [...] Plan (01/17/2025 11:35 AM EDT): - seeing heel former - continue judicious use of gabapentin 100 mg tid - she wants to switch to tablet. Only tablets available are 600 and 800 mg tablet - will have her take 1/4 of 600 mg tablet and take bid; or will check with pharmacist if she can open the capsule and take inside content Assessment & Plan (07/23/2024 5:36 AM EDT): - seeing heel former - continue judicious use of gabapentin 100 mg tid - she wants to switch to tablet. Only tablets available are 600 and 800 mg tablet - will have her take 1/4 of 600 mg tablet and take bid; or will check with pharmacist if she can open the capsule and take inside content Assessment & Plan (01/04/2024 3:36 PM EST): - seeing heel former - continue judicious use of gabapentin Assessment & Plan (10/03/2023 9:48 AM EST): - seeing heel former - waiting for diabetic orthotics Adjustment disorder [...] hyperkalemia and cough -Currently prescribed Dapagliflozin from emergency registrar Assessment & Plan (07/20/2024 1:50 PM EDT): -Goal BP < 140/90 per JNC-8 and < 130/80 per ACC/AHA guideline (Treatment threshold >= 140/90 ) -BP at goal today -Continue working on lifestyle modifications -Recommended self-monitoring BP. -Pt has tried lisinopril for renal protection, not for HTN, in the past, but it was discontinued due to hyperkalemia and cough -Currently prescribed Dapagliflozin from emergency registrar -Follow up in 3-6 mo, sooner if [...] hyperkalemia and cough -Currently prescribed Dapagliflozin from emergency registrar -Follow up in 3-6 mo, sooner if [...] neuropathy; osteoarthritis; plantar fasciitis - Following with heel former Assessment & Plan (06/07/2023 3:44 PM EDT): - left foot worse than right - multifactorial: Diabetic peripheral neuropathy; osteoarthritis; plantar fasciitis - referred to a heel former; waiting for an appt - check the [...] want to try any GLP-1 agonist. -Patient Marble Coper prescribed Farxiga. Patient is taking this medication [...] want to try any GLP-1 agonist. -Patient Marble Coper prescribed Farxiga. Patient is no longer taking [...] (01/04/2024 3:42 PM EST): - followed by [facility] - no anatomical pancreatic abnormality on MRI in Dec 2022 - continue vegan / plant-based pancreatic enzyme Assessment & Plan (10/03/2023 9:49 AM EST): - followed by [facility] - no anatomical pancreatic abnormality on MRI in Dec 2022 - continue vegan / plant-based pancreatic enzyme Assessment & Plan (06/07/2023 3:30 PM EDT): - followed by [facility] - no anatomical pancreatic abnormality on MRI in Dec 2022 - continue vegan / plant-based pancreatic enzyme Assessment & Plan (02/24/2023 5:30 AM EDT): - followed by [facility] - no anatomical pancreatic abnormality on MRI in Dec 2022 - continue vegan / plant-based pancreatic enzyme Assessment & Plan (12/18/2022 6:12 PM EST): - followed by [facility] - continue vegan pancreatic enzyme Allergic [...] Plan (01/21/2025 12:33 PM EDT): -Followed by [facility], last seen 01/03/25 -EGD and Colonoscopy on 12/24/21; showed Tubular Adenoma, she was recommended to repeat in 3 years. - pt has been using castor oil - continue trying fiber-rich diet and increasing physical activity as tolerated. - continue Senakot as prescribed Assessment & Plan (07/20/2024 1:50 PM EDT): -Followed by [facility], last seen 08/06/22 -EGD and Colonoscopy on 12/24/21; showed Tubular Adenoma, she was recommended to repeat in 3 years. - pt has been using castor oil - continue trying fiber-rich diet and increasing physical activity as tolerated. - continue Senakot as prescribed Assessment & Plan (01/04/2024 3:38 PM EST): -Followed by [facility], last seen 08/06/22 -EGD and Colonoscopy on 12/24/21; showed Tubular Adenoma, she was recommended to repeat in 3 years. - pt has been using castor oil - continue trying fiber-rich diet and increasing physical activity as tolerated. - continue Senakot as prescribed Assessment & Plan (06/07/2023 3:33 PM EDT): -Followed by [facility], last seen 08/06/22 -EGD and Colonoscopy on 12/24/21; showed Tubular Adenoma, she was recommended to repeat in 3 years. - pt has been using castor oil - continue trying fiber-rich diet and increasing physical activity as tolerated. - continue Senakot as prescribed Assessment & Plan (12/18/2022 6:26 PM EST): -Followed by [facility], last seen 08/06/22 -EGD and Colonoscopy on 12/24/21; showed Tubular Adenoma, she was recommended to repeat in 3 years. - pt has been using castor oil - continue trying fiber-rich diet and increasing physical activity as tolerated. - continue Senakot as prescribed Chronic kidney disease, stage III (moderate) 01/2022 Assessment & Plan (04/12/2025 1:40 PM EDT): - Marble Coper, Dr. Marci Hylton. Last seen on 01/25/25 - Metformin is discontinued, Dr. Tsai started her on Dapagliflozin (Farxiga) - Previously on Lisinopril, but was disccontinued due to cough / K - Avoid nephrotoxic drugs, including NSAID (no more Aleve) - Renal dose meds Assessment & Plan (01/21/2025 12:32 PM EDT): - Marble Coper, Dr. Marci Hylton. Last seen on 01/25/25 - Metformin is discontinued, Dr. Tsai started her on Dapagliflozin (Farxiga) - Previously on Lisinopril, but was disccontinued due to cough / K - Avoid nephrotoxic drugs, including NSAID (no more Aleve) - Renal dose meds Assessment & Plan (07/23/2024 5:41 AM EDT): - Marble Coper, Dr. Marci Hylton. - Metformin is discontinued, Dr. Tsai started bryn ib Dapagliflozin (Farxiga) - Previously on Lisinopril, but was disccontinued due to cough / K - Avoid nephrotoxic drugs, including NSAID (no more Aleve) - Renal dose meds Assessment & Plan (01/04/2024 3:45 PM EST): - Marble Coper, Dr. 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 Tsai is prescribing Dapagliflozin (Farxiga) - Previously on Lisinopril, but was disccontinued due to cough / K - Avoid nephrotoxic drugs - Renal dose meds Assessment & Plan (10/03/2023 9:41 AM EST): - Marble Coper, Dr. 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 Tsai rx Farxiga for DM management - Previously on Lisinopril, but was disccontinued due to cough / K - Avoid nephrotoxic drugs - Renal dose meds - Pt was advised that atorvastatin is not nephrotoxic and it will lower her ASCVD risk. Pt continues to decline statin therapy. Assessment & Plan (06/07/2023 3:34 PM EDT): - Marble Coper, Dr. 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 [...] & Plan (02/24/2023 5:37 AM EDT): - Marble Coper, Dr. Tsai - Lab: 12/24/22 BUN 28, [...] & Plan (12/18/2022 6:31 PM EST): - Marble Coper, Dr. 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 [...] PM EDT): -s/p EGD 12/24/21 -followed by [facility] -refill famotidine as requested. Patient takes prn. -since patient is on clopidogrel, will check whether patient is taking omeprazole or pantoprazole. Assessment & Plan (01/04/2024 3:42 PM EST): -s/p EGD 12/24/21 -followed by [facility] -continue omeprazole 40mg daily -previously tried pantoprazole and lansoprazole; pt prefers omeprazole. -previously prescribed famotidine. Max dose for her renal function is 20 mg daily. Pt does not take it regularly. Assessment & Plan (10/03/2023 9:50 AM EST): -s/p EGD 12/24/21 -followed by [facility] -continue omeprazole 40mg daily -previously tried pantoprazole and lansoprazole; pt prefers omeprazole. -previously prescribed famotidine. Max dose for her renal function is 20 mg daily. Pt does not take it regularly. Assessment & Plan (06/07/2023 3:33 PM EDT): -s/p EGD 12/24/21 -followed by [facility] -continue omeprazole 40mg daily -previously tried pantoprazole and lansoprazole; pt prefers omeprazole. -previously prescribed famotidine. Max dose for her renal function is 20 mg daily. Pt does not take it regularly. Assessment & Plan (12/18/2022 6:28 PM EST): -s/p EGD 12/24/21 -followed by [facility] -continue prantoprazol 40mg daily -previously prescribed famotidine. Max dose for her renal function is 20 mg daily. Irritable bowel syndrome 10/12/2022 Assessment & Plan (07/20/2024 1:50 PM EDT): - followed by [facility] - continue current treatment plan per GI - low FODMAP diet - pt is prescribed simethicone, Sennakot, citrucel, but does not like taking it regularly Assessment & Plan (01/04/2024 3:42 PM EST): - followed by [facility] - continue current treatment plan per GI - low FODMAP diet - pt is prescribed simethicone, Sennakot, citrucel, but does not like taking it regularly Assessment & Plan (10/03/2023 9:49 AM EST): - followed by [facility] - continue current treatment plan per GI - low FODMAP diet - pt is prescribed simethicone, Sennakot, citrucel, but does not like taking it regularly Assessment & Plan (06/07/2023 3:32 PM EDT): - followed by [facility] - continue current treatment plan per GI - low FODMAP diet - pt is prescribed simethicone, Sennakot, citrucel, but does not like taking it regularly Assessment & Plan (12/18/2022 6:27 PM EST): - followed by [facility] - continue current treatment plan per [...] - Prescribed dapagliflozin (Farxiga) from PCP and emergency registrar, questionable adherence - Discussed about CGM, which she does not want to use it at this time Treatment Hx -Pt has taken GLP-1 agonists and had significant side effects, mainly GI. Pt states she does not want to try any GLP-1 agonist. -Patient Marble Coper prescribed Farxiga. Patient is taking this medication [...] - Prescribed dapagliflozin (Farxiga) from PCP and emergency registrar, questionable adherence - Discussed about CGM, which she does not want to use it at this time Treatment Hx -Pt has taken GLP-1 agonists and had significant side effects, mainly GI. Pt states she does not want to try any GLP-1 agonist. -Patient Marble Coper prescribed Farxiga. Patient is taking this medication [...] want to try any GLP-1 agonist. -Patient Marble Coper prescribed Farxiga. Patient is taking this medication [...] want to try any GLP-1 agonist. -Patient Marble Coper prescribed Farxiga. Patient is no longer taking [...] want to try any GLP-1 agonist. -Patient Marble Coper prescribed Farxiga. Patient is no longer taking [...] want to try any GLP-1 agonist. -Patient Marble Coper prescribed Farxiga. Patient is no longer taking [...] want to try any GLP-1 agonist. -Patient Marble Coper prescribed Farxiga. Patient is no longer taking [...] Encounters Date Type Department Care Team Description 05/27/2025 Results Follow-Up [facility] [address] [place] [address] Maranda Serna MD BI Mammogram Screening Tomosynthesis Bilateral, US Thyroid 05/19/2025 Refill [facility] [address] [place], [place] [phone] Maranda Serna MD Type 2 diabetes mellitus with stage 3b chronic kidney disease, with long-term current use of insulin ([facility]) 05/04/2025 Refill [facility] [address] [place] [address] Maranda Serna MD Type 2 diabetes mellitus with hyperglycemia, with long-term current use of insulin ([facility]) 04/25/2025 Orders Only [facility] [address] [place] [address] Maranda Serna MD 04/22/2025 Orders Only GENERIC EXTERNAL DATA DEPARTMENT Provider, Generic External Data 04/12/2025 3:30 PM EDT Office Visit [facility] [address] [place] [phone] Maranda Serna MD Elevated blood pressure reading in office without diagnosis of hypertension (Primary Dx); Dyslipidemia; Coronary artery disease of [place] artery of [place] heart with stable angina pectoris ([facility]); Type 2 diabetes mellitus with stage 3b chronic kidney disease, with long-term current use of insulin ([facility]); Type 2 diabetes mellitus with hyperglycemia, with long-term current use of insulin ([facility]); Stage 3b chronic kidney disease ([facility]); Anemia due to stage 3b chronic kidney disease ([facility]); Thyroid nodule; Type 2 diabetes mellitus with diabetic polyneuropathy, with long-term current use of insulin ([facility]); Dietary counseling; Exercise counseling; Class 2 severe obesity due to excess calories with serious comorbidity and body mass index (BMI) of 35.0 to 35.9 in adult ([facility]); Gastroesophageal [...] 04/12/2025 3:55 PM EDT Plan of Treatment Upcoming Encounters Date Type Department Care Team (Late st Contact Info) Description 07/12/2025 3:30 PM EDT Office Visit [facility] [address] [place] [address] Maranda Serna MD [address] [place], [place] [phone] Health Maintenance Due Date Last Done Comments CT Colonography 1960 FIT DNA/Cologuard 1960 FIT 1960 FOBT 1960 Sigmoidoscopy 1960 Disability Screening 1960 Eye Exam 1970 Hepatitis C Screening 1978 Pap Smear 1981 Cervical Cancer Screening 1990 HPV/Cotest 1990 Zoster Vaccines (1 of 2) 2010 RSV Patients and Patients Aged 60 years or older (1 - Risk 60-74 years 1-dose series) 2020 Diagnostic Breast Imaging 05/27/2025 08/21/2022 Colonoscopy 07/07/2025 07/07/2022 Colorectal Cancer Screening 07/07/2025 Influenza Vaccine (#1) 2025 4, 09/23/2023, 10/14/2022, Additional history exists Diabetes: Hemoglobin A1C 07/13/2025 025, 01/17/2025, 07/19/2024, Additional history exists Diabetes: Foot Exam 07/19/2025 07/19/2024 Alcohol/Substance Use Screening 01/17/2026 01/17/2025 Depression Screening 01/17/2026 01/17/2025, 01/18/20 25 Lipid Panel 03/22/2026 03/22/2025, 12/12, 12/24/2022, Additional [...] Procedure Name Priority Date/Time Associated Diagnosis Comments US THYROID Routine 06/06/2025 1:04 PM EDT Thyroid nodule BI MAMMOGRAM SCREENING TOMOSYNTHESIS BILATERAL Routine 05/16/2025 12:30 PM EDT Breast cancer screening by mammogram HIGH SENSITIVITY TROPONIN I Routine 04/22/2025 2:18 [...] disease, with long-term current use of insulin ([facility]) POCT GLUCOSE Routine 04/12/2025 3:56 PM EDT [...] long-term current use of insulin (CMS/HCC) Dyslipidemia HM MAMMOGRAPHY Routine 08/21/2022 HM COLONOSCOPY Routine 07/07/2022 from Last 3 Months or Most Recently Relevant to Health Maintenance Results * US Thyroid (06/06/2025 1:04 PM EDT) Anatomical Region Laterality Modality Head, Neck Ultrasound 06/06/2025 1:04 PM EDT Narrative 06/06/2025 1:50 PM EDT [place] [id number] Ultrasound Report Signed Patient: Ese Mendoza MR#: [id number] 8 : 1960 Acct:[id number] Age/Sex: 64 / F ADM Date: 06/06/25 Loc: HO.US XR CHEST CLINICAL INFORMATION: cough, congestion COMPARISON: [...] Brandon Mosqueda MD 04/22/2025 02:38 PM EDT Dictated By: Brandon Reyes MD Signed By: <Electronically signed by Brandon Gonzales MD in OV> 04/22/25 1438 DD/ 1334 TD/TT: 04/22/25 1431 Computer Networking Instructor: Procedure Note [place], Image - 04/22/2025 [place] [address] XRay Report Signed Patient: Ese MendozaMR#: [id number] 8 : 1960Acct:[id number] Age/Sex: 64 / FADM Date: 04/22/25 Loc: HO.ED Attending Dr: Ordering Physician: Bella Lomeli Date of Service: 04/22/25 Procedure(s): XR chest 2V Accession Number(s): [id number] cc: Bella Lomeli; Maranda Serna MD EXAMINATION: [...] Brandon Mosqueda MD 04/22/2025 02:38 PM EDT Dictated By: Brnadon Reyes MD Signed By: <Electronically signed by Brandon Gonzales MDin OV> 04/22/25 1438 DD/ 1334 TD/TT: 04/22/25 143 Computer Networking Instructor: [facility] External Provider IMG XR PROCEDURES Final [...] 3:56 PM EDT) Creatinine, Urine 52.25 mg/dL [facility] Microalbumin Urine 15.0 mg/L [facility] Microalbum Creatinine Ratio Ur 28.7 <30 ug/mg cr [facility] Comment:Albumin/Creatinine R atio Reference Ranges: Normal: < 30 ug/mg creatinine Microalbuminuria: 30 - 300 ug/mg creatinineClinical Albuminuria: > 300 ug/mg creatinine Urine 03/22/2025 3:56 PM EDT 03/22/2025 5:55 PM EDT Maranda Serna MD LAB URINE ORDERABLES Final Resul t [facility] [address] [place] [address] [phone] * Vitamin B12 (Cobalamin) and Folate Panel, Serum (03/22/2025 3:47 PM EDT) Vitamin B12 810 200 - 900 pg/mL [facility] Comment:NORMAL 200-900 PG/ML INDETERMINATE 160-199 PG/ML DEFICIENT < 160 PG/ML Folate 9.9 > or = 4.0 ng/mL [facility] Comment:Reference Values:> o r = 4.0 ng/mL< 4.0 ng/mL suggests folate deficiency Methotrexate, aminopterin and folinic acid(leucovorin) are chemotherapeutic agents whose molecularstructures are similar to folate; therefore, the Architectfolate assay cannot be used for patients using these drugs. Blood 03/22/2025 3:47 PM EDT 03/22/2025 5:53 PM EDT Maranda Serna MD LAB BLOOD ORDERABLES Final Resul t Performing Organization Address [facility] Co de Phone Number [facility] [address] [place] [address] [phone] * TSH with Reflex to Free T4 (03/22/2025 3:47 PM EDT) TSH reflex Free T4 1.89 0.32 - 4.0 uIU/mL [facility] Blood 03/22/2025 3:47 PM EDT 03/22/2025 5:53 PM EDT Maranda Serna MD LAB BLOOD ORDERABLES Final Resul t Performing Organization Address [facility] Co de Phone Number [facility] [address] [place] [phone] * Respiratory Allergy Profile Region I (03/22/2025 3:47 PM EDT) Mouse Urine Proteins (E72) IgE <0.10 kU/L [facility] Class 0 [facility] Cockroach (I6) IgE <0.10 kU/L [facility] Class 0 [facility] Dermatophagoides farinae (D2) IgE <0.10 kU/L [facility] Class 0 [facility] Cat Dander (E1) IgE <0.10 kU/L [facility] Class 0 [facility] Comment:THIS TEST WAS PERFOR MED AT:[facility] [address] [phone] CRONIN MD Dog Dander (E5) IgE <0.10 kU/L [facility] Class 0 [facility] Comment:THIS TEST WAS PERFOR MED AT:[facility] [address] [phone] CRONIN MD [place]im Grass (G6) IgE <0.10 kU/L [facility] Class 0 [facility] Cladosporium herbarum (M2) IgE <0.10 kU/L [facility] Class 0 [facility] Aspergillus Fumigatis (M3) IgE <0.10 kU/L [facility] Class 0 [facility] Alternaria alternata (M6) IgE <0.10 kU/L [facility] Class 0 [facility] Comment:THIS TEST WAS PERFOR MED AT:[facility] [address] [phone] CRONIN MD [place] (t6) IgE <0.10 kU/L [facility] Class 0 [facility] [place] (T7) IgE <0.10 kU/L [facility] Class 0 [facility] [place] (T10) IgE <0.10 kU/L [facility] Class 0 [facility] [place] (T11) IgE <0.10 kU/L [facility] Class 0 [facility] [place] (T14) IgE <0.10 kU/L [facility] Class 0 [facility] [place] (t15) IgE <0.10 kU/L [facility] Class 0 [facility] [place] (T70) IgE <0.10 kU/L [facility] Class 0 [facility] Common Ragweed (Short) (W1) IgE <0.10 kU/L [facility] Class 0 [facility] Mugwort (w6) IgE <0.10 kU/L [facility] Class 0 [facility] Dermatophagoides pteronyssinus (D1) IgE <0.10 kU/L [facility] Class 0 [facility] [facility] Bermuda Grass (g2) IgE <0.10 kU/L [facility] Class 0 [facility] Penicillium Notatum (M1) IgE <0.10 kU/L [facility] Class 0 [facility] Birch (T3) IgE <0.10 kU/L [facility] Class 0 [facility] Elm (t8) IgE <0.10 kU/L [facility] Class 0 [facility] Maple (Garner) (T1) IgE <0.10 kU/L [facility] Class 0 [facility] Rough Pigweed (W14) IgE <0.10 kU/L [facility] Class 0 [facility] Sheep Brockway (W18) IgE <0.10 kU/L [facility] Class 0 [facility] Allergen Comment See Below [facility] Comment: Specific Level of AllergenIGE Class [...] and its analyticalperformance characteristics have been determined byIActive. It has not been cleared or approvedby the U.S. Food and Drug Administration. This assayhas been validated pursuant to the CLIA regulationsand is used for clinical purposes.THIS TEST WAS PERFORMED AT:[employer] [address] [id number] CRONIN MD 03/22/2025 3:47 PM EDT 03/22/2025 5:53 PM EDT us Generic External Data Provider LAB BLOOD ORDERAB LES Final Result Performing Organization Address [facility]/ZIP Co de Phone Number [facility] [address] [place] [phone] * Lipid Panel with Reflex to Direct LDL (03/22/2025 3:47 PM EDT) Triglycerides 96 <150 mg/dL [facility] Comment:Desirable Triglyceri de: less than 150 mg/dLBorderline High Triglyceride 150-199 mg/dLHigh Triglyceride: 200-499 mg/dLVery High Triglyceride: greater than or equal to 5OO mg/dL Cholesterol 124 <200 mg/dL [facility] Comment:Desirable Cholestero l: less than 200 mg/dLBorderline High Cholesterol: 200-239 mg/dLHigh Cholesterol: greater than 239 mg/dL LDL Cholesterol Calculated 52 <100 mg/dL [facility] Comment:Desirable LDL: less than 100 mg/dLNear Optimal/Above Optimal LDL: 110- 129 mg/dLBorderline High LDL: 130-159 mg/dLHigh LDL: 160-189 mg/dLVery High LDL: greater than or equal to 190 mg/dL HDL Cholesterol 53 >40 mg/dL [facility] Comment:Desirable HDL: great er than 40 mg/dL Note: This HDL assay may give artificially low results in patients with liver disease. Blood 03/22/2025 3:47 PM EDT 03/22/2025 5:53 PM EDT us Maranda Serna MD LAB BLOOD ORDERABLES Final Resul t Performing Organization Address City/[facility]/ZIP Co de Phone Number [facility] [address] [place] [phone] * Iron And Total Iron Binding Capacity (03/22/2025 3:47 PM EDT) Iron 46 30 - 160 mcg/dL [facility] Total Iron Binding Capacity 254 228 - 428 mcg/dL [facility] Percent Iron Saturation 18 15 - 50 % [facility] Unsaturated Iron Binding 208 ug/dL [facility] Blood Venous blood specimen / Unknown 03/22/2025 3:47 PM EDT 03/22/2025 5:53 PM EDT us Maranda Serna MD LAB BLOOD ORDERABLES Final Resul t Performing Organization Address [facility] Co de Phone Number [facility] [address] [place] [phone] * Immunoglobulin E (03/22/2025 3:47 PM EDT) Immunoglobulin E 3 <WL=496 kU/L [facility] 03/22/2025 3:47 PM EDT 03/22/2025 5:53 PM EDT us Generic External Data Provider LAB BLOOD ORDERAB LES Final Result Performing Organization Address [facility] de Phone Number [facility] [address] [place] [phone] * Ferritin (03/22/2025 3:47 PM EDT) Ferritin 134 10 - 250 ng/mL [facility] Blood Venous blood specimen / Unknown 03/22/2025 3:47 PM EDT 03/22/2025 5:53 PM EDT us Maranda Serna MD LAB BLOOD ORDERABLES Final Resul t Performing Organization Address [facility] de Phone Number [facility] [address] [place] [phone] * (ABNORMAL) Comprehensive Metabolic Panel (03/22/2025 3:47 PM EDT) Sodium 139 135 - 145 mmol/L [facility] Potassium 4.3 3.3 - 5.1 mmol/L [facility] Chloride 106 96 - 108 mmol/L [facility] Carbon Dioxide 25 22 - 29 mmol/L [facility] Anion Gap 12 12 - 20 [facility] Urea Nitrogen (BUN) 33(H) 9 - 16 mg/dL [facility] Creatinine, Serum 1.93(H) 0.5 - 1.4 mg/dL [facility] Estimated Glomerular Filt Rate 26 [facility] Comment:Chronic Kidney Disea se: Estimated GFR < 60 mL/min/1.51i2Utkisr Kidney Disease: Estimated GFR < 15 mL/min/1.73m2 Glucose 79 60 - 115 mg/dL [facility] Calcium 9.1 8.4 - 10.2 mg/dL [facility] Bilirubin, Total 0.3 0.0 - 1.0 mg/dL [facility] Aspartate Amino Transferase 27 5 - 31 U/L [facility] Alanine Aminotransferase 11 0 - 31 U/L [facility] Total Protein 6.9 6.5 - 8.0 g/dL [facility] Albumin Level 4.1 3.5 - 5.0 g/dL [facility] Alkaline Phosphatase 118(H) 39 - 117 U/L [facility] Blood Venous blood specimen / Unknown 03/22/2025 3:47 PM EDT 03/22/2025 5:53 PM EDT Maranda Serna MD LAB BLOOD ORDERABLES Final Resul t [facility] [address] [place] [phone] * Mammography (08/21/2022) Mammogram performed Anatomical Region Laterality Modality Other Tio Provider HEALTH MAINTENANCE Final Result * (ABNORMAL) Colonoscopy (07/07/2022) Colonoscopy Abnormal(A ) Normal [facility] External Provider HEALTH MAINTENANCE Final Result from Last 3 Months or Most Recently Relevant to Health Maintenance Insurance Care Teams Mva Operator Relationship Specialty Start Date End Date Mraanda Serna MD [address] [place] [address] PCP - General Family Medicine 08/01/[address]: Maranda Serna MD Ordering Physician: Maranda Serna MD Date of Service: 06/06/25 Procedure(s): US thyroid Accession Number(s): [id number] cc: Maranda Serna MD EXAMINATION: US THYROID CLINICAL INFORMATION: Thyroid nodule on recent CT examination. COMPARISON: None available. TECHNIQUE: Linear transducer grayscale and color Doppler examination with attention to the region of the thyroid. FINDINGS: SIZE: Measurements of the thyroid lobes and nodules are given in sagittal, anteroposterior and transverse dimensions respectively. Right Thyroid Lobe: 4.7 x 1.6 x 1.9 cm, volume 7.5 mL. Parenchyma: The gland echotexture is normal. Thyroid vascularity is normal. Left Thyroid Lobe: 3.7 x 1.1 x 1.3 cm, volume 2.8 mL. Parenchyma: The gland echotexture is normal. Thyroid vascularity is normal. Isthmus: 0.4 cm in maximum AP dimension. Estimated total number of nodules greater than or equal to 1 cm: 1. Lieutenant Colonel nodules are described as follows: 1. Location: Right thyroid lobe upper aspect.. Size: 1.6 x 0.8 x 1.2 cm, volume 0.1 mL. Nodule characteristics: Composition: Solid (2). Echogenicity: Cannot be determined (1). Shape: Not taller than wide (0). Margins: Smooth (0). Echogenic Foci: None (0). ACR TI-RADS total points: 3 ACR TI-RADS category: 3 2. Location: [Right lobe mid portions.. Size: 0.9 x 0.4 x 0.8 cm, volume 0.2 mL. Nodule characteristics: Composition: Solid (2). Echogenicity: Hypoechoic (2). Shape: Not taller than wide (0). Margins: Smooth (0). Echogenic Foci: None (0). ACR TI-RADS total points: 4 ACR TI-RADS category: 4 3. Location: Left-sided of the isthmus .. Size: 0.4 x 0.2 x 0.3 cm, volume 0.01 mL. Nodule characteristics: Composition: Solid (2). Echogenicity: Very hypoechoic (3). Shape: Not taller than wide (0). Margins: Smooth (0). Echogenic Foci: None (0). ACR TI-RADS total points: 5 ACR TI-RADS category: 4 4. Location: Right thyroid lower pole.. Size: 0.4 x 0.3 x 0.4 cm, volume 0.03 mL. Nodule characteristics: Composition: Solid (2). Echogenicity: Hypoechoic (2). Shape: Not taller than wide (0). Margins: Smooth (0). Echogenic Foci: None (0). ACR TI-RADS total points: 4 ACR TI-RADS category: 4 NODES: No lymphadenopathy is seen in the tissue surrounding the thyroid gland. US/US thyroid IMPRESSION: ACR TI RADS 3, and 4. ACR TI-RADS RECOMMENDATION REFERENCE: Ultrasound-guided fine-needle aspiration, followup ultrasound, no further follow up. * TR1 (0 point) and TR2 (2 points): No FNA or follow up. * TR3 (3 points): FNA if more than or equal to 2.5 cm in maximum dimension, followup ultrasound in 1, 3 and 5 years if 1.5 to 2.4 cm in maximum dimension. * TR4 (4-6 points): FNA if more than or equal to 1.5 cm in maximum dimension, followup ultrasound in 1, 2, 3 and 5 years if 1 to 1.4 cm in maximum dimension. * TR5 (more than or equal to 7 points): FNA if more than or equal to 1 cm in maximum dimension, followup ultrasound every year for 5 years if 0.5 to 0.9 cm in maximum dimension. * TR3, TR4 or TR5 nodules that are below the size threshold for followup receive no follow up. Electronically signed by: Brandon Mosqueda MD 06/06/2025 01:47 PM EDT Dictated By: Brandon Reyes MD Signed By: <Electronically signed by Brandon Gonzales MD in OV> 06/06/25 1347 DD/ 1304 TD/TT: 06/06/25 1316 Computer Networking Instructor: Procedure Note Donotuseinterpreter, Image - 06/06/2025 [place] [address] Ultrasound Report Signed Patient: Ese Mendoza#: [id number] 8 : 1960Acct:[id number] Age/Sex: 64 / FADM Date: 06/06/25 Loc: HO.US Attending Dr: Maranda Serna MD Ordering Physician: Maranda Serna MD Date of Service: 06/06/25 Procedure(s): US thyroid Accession Number(s): [id number] cc: Maranda Serna MD EXAMINATION: US THYROID CLINICAL INFORMATION: Thyroid nodule on recent CT examination. COMPARISON: None available. TECHNIQUE: Linear transducer grayscale and color Doppler examination with attention to the region of the thyroid. FINDINGS: SIZE: Measurements of the thyroid lobes and nodules are given in sagittal, anteroposterior and transverse dimensions respectively. Right Thyroid Lobe: 4.7 x 1.6 x 1.9 cm, volume 7.5 mL. Parenchyma: The gland echotexture is normal. Thyroid vascularity is normal. Left Thyroid Lobe: 3.7 x 1.1 x 1.3 cm, volume 2.8 mL. Parenchyma: The gland echotexture is normal. Thyroid vascularity is normal. Isthmus: 0.4 cm in maximum AP dimension. Estimated total number of nodules greater than or equal to 1 cm: 1. Lieutenant Colonel nodules are described as follows: 1. Location: Right thyroid lobe upper aspect.. Size: 1.6 x 0.8 x 1.2 cm, volume 0.1 mL. Nodule characteristics: Composition: Solid (2). Echogenicity: Cannot be determined (1). Shape: Not taller than wide (0). Margins: Smooth (0). Echogenic Foci: None (0). ACR TI-RADS total points: 3 ACR TI-RADS category: 3 2. Location: [Right lobe mid portions.. Size: 0.9 x 0.4 x 0.8 cm, volume 0.2 mL. Nodule characteristics: Composition: Solid (2). Echogenicity: Hypoechoic (2). Shape: Not taller than wide (0). Margins: Smooth (0). Echogenic Foci: None (0). ACR TI-RADS total points: 4 ACR TI-RADS category: 4 3. Location: Left-sided of the isthmus .. Size: 0.4 x 0.2 x 0.3 cm, volume 0.01 mL. Nodule characteristics: Composition: Solid (2). Echogenicity: Very hypoechoic (3). Shape: Not taller than wide (0). Margins: Smooth (0). Echogenic Foci: None (0). ACR TI-RADS total points: 5 ACR TI-RADS category: 4 4. Location: Right thyroid lower pole.. Size: 0.4 x 0.3 x 0.4 cm, volume 0.03 mL. Nodule characteristics: Composition: Solid (2). Echogenicity: Hypoechoic (2). Shape: Not taller than wide (0). Margins: Smooth (0). Echogenic Foci: None (0). ACR TI-RADS total points: 4 ACR TI-RADS category: 4 NODES: No lymphadenopathy is seen in the tissue surrounding the thyroid gland. US/US thyroid IMPRESSION: ACR TI RADS 3, and 4. ACR TI-RADS RECOMMENDATION REFERENCE: Ultrasound-guided fine-needle aspiration, followup ultrasound, no further follow up. * TR1 (0 point) and TR2 (2 points): No FNA or follow up. * TR3 (3 points): FNA if more than or equal to 2.5 cm in maximum dimension, followup ultrasound in 1, 3 and 5 years if 1.5 to 2.4 cm in maximum dimension. * TR4 (4-6 points): FNA if more than or equal to 1.5 cm in maximum dimension, followup ultrasound in 1, 2, 3 and 5 years if 1 to 1.4 cm in maximum dimension. * TR5 (more than or equal to 7 points): FNA if more than or equal to 1 cm in maximum dimension, followup ultrasound every year for 5 years if 0.5 to 0.9 cm in maximum dimension. * TR3, TR4 or TR5 nodules that are below the size threshold for followup receive no follow up. Electronically signed by: Brandon Mosqueda MD 06/06/2025 01:47 PM EDT Dictated By: Brandon Reyes MD Signed By: <Electronically signed by Brandon Gonzales MDin OV> 06/06/25 1347 DD/ 1304 TD/TT: 06/06/25 1316 Computer Networking Instructor: us Maranda Serna MD IMG US PROCEDURES Final Result * BI Mammogram Screening Tomosynthesis Bilateral (05/16/2025 12:30 PM EDT) Anatomical Region Laterality Modality Breast Bilateral Mammography 05/16/2025 12:3 0 PM EDT Narrative 05/26/2025 7:54 PM EDT [facility] [address] [place] [address] Mammography Report Signed Patient: Ese Mendoza MR#: [id number] 8 : 1960 Acct:[id number] Age/Sex: 64 / F ADM Date: 05/16/25 Loc: HO.MAMMO Attending Dr: Maranda Serna MD Ordering Physician: Maranda Serna MD Results: 0Incomple te: Needs Additional Imaging Evaluation Date of Service: 05/16/25 Follow Up: Additional Imagi ng Procedure(s): MM tomosynthesis screening BI Accession Number(s): [id number] cc: Maranda Serna MD EXAMINATION: MM SCREENING DIGITAL BREAST TOMOSYNTHESIS, BILATERAL CLINICAL INFORMATION: Screening. Asymptomatic. COMPARISON: Comparison made to multiple prior, most recent February 10, 2024, and most remote January 19, 2014. TECHNIQUE: Digital breast tomosynthesis is performed in both the craniocaudal and mediolateral oblique views along with computer-aided detection (CAD). Synthesized 2D images are generated from the tomosynthesis. FINDINGS: BREAST COMPOSITION: There are scattered areas of fibroglandular density (ACR BI-RADS breast composition Category b). RIGHT BREAST: History of previous reduction mammoplasty. No significant masses, suspicious calcifications or other abnormalities are seen. LEFT BREAST: History of previous reduction mammaplasty. No obvious significant masses, suspicious calcifications or other abnormalities are seen, however, evaluation limited by motion. MM/MM tomosynthesis screening BI IMPRESSION: RIGHT BREAST: Benign, no mammographic evidence of malignancy. Normal interval follow-up is recommended in 12 months. LEFT BREAST: Technical recall. Patient will be called back to repeat right CC view without motion. ASSESSMENT: BI-RADS 0 - Incomplete: Needs additional Imaging. RECOMMENDATION: 1. Repeat right CC view 2. Radiology department staff will contact the patient for additional imaging. FOLLOW-UP: Additional Imaging required This examination should not preclude the clinical evaluation of a suspicious palpable abnormality. This patient's information was entered into a reminder system with a target due date for their next mammogram. Electronically signed by: Julio Pickard MD 05/26/2025 07:51 PM EDT Dictated By: Julio Pickard MD Signed By: <Electronically signed by Julio Pickard MD in OV> 05/26/251950 DD/ 1230 TD/TT: 05/16/25 1245 Computer Networking Instructor: Procedure Note Donotuseinterpreter, Image - 05/26/2025 [facility] [address] [place], [place] [address] Mammography Report Signed Patient: Ese MendozaMR#: [id number] 8 : 1960Acct:[id number] Age/Sex: 64 / FADM Date: 05/16/25 Loc: HO.MAMMO Attending Dr: Maranda Serna MD Ordering Physician: Maranda Serna MDResults: 0Incomple te: Needs Additional Imaging Evaluation Date of Service: 05/16/25Follow Up: Additional Imagi ng Procedure(s): MM tomosynthesis screening BI Accession Number(s): [id number] cc: Maranda Serna MD EXAMINATION: MM SCREENING DIGITAL BREAST TOMOSYNTHESIS, BILATERAL CLINICAL INFORMATION: Screening. Asymptomatic. COMPARISON: Comparison made to multiple prior, most recent February 10, 2024, and most remote January 19, 2014. TECHNIQUE: Digital breast tomosynthesis is performed in both the craniocaudal and mediolateral oblique views along with computer-aided detection (CAD). Synthesized 2D images are generated from the tomosynthesis. FINDINGS: BREAST COMPOSITION: There are scattered areas of fibroglandular density (ACR BI-RADS breast composition Category b). RIGHT BREAST: History of previous reduction mammoplasty. No significant masses, suspicious calcifications or other abnormalities are seen. LEFT BREAST: History of previous reduction mammaplasty. No obvious significant masses, suspicious calcifications or other abnormalities are seen, however, evaluation limited by motion. MM/MM tomosynthesis screening BI IMPRESSION: RIGHT BREAST: Benign, no mammographic evidence of malignancy. Normal interval follow-up is recommended in 12 months. LEFT BREAST: Technical recall. Patient will be called back to repeat right CC view without motion. ASSESSMENT: BI-RADS 0 - Incomplete: Needs additional Imaging. RECOMMENDATION: 1. Repeat right CC view 2. Radiology department staff will contact the patient for additional imaging. FOLLOW-UP: Additional Imaging required This examination should not preclude the clinical evaluation of a suspicious palpable abnormality. This patient's information was entered into a reminder system with a target due date for their next mammogram. Electronically signed by: Julio Pickard MD 05/26/2025 07:51 PM EDT RP Dictated By: Julio Pickard MD Signed By: <Electronically signed by Julio Pickard MD in OV> 05/26/25 195 DD/ 1230 TD/TT: 05/16/25 1245 Computer Networking Instructor: us Maranda Serna MD IMG BI PROCEDURES Edited Result - Final * High Sensitivity Troponin I (04/22/2025 2:18 PM EDT) TROPONIN I HIGH SENSITIVITY 7.1 <3.5 - 17.0 ng/L [facility] Comment:The Castillo high sens itivity Troponin-I results should beused in conjunction with other diagnostic information suchas ECG, clinical observations and information, and patientsymptoms to aid in the diagnosis of IL. 04/22/2025 2:18 PM EDT 04/22/2025 2:27 PM EDT us Generic External Data Provider LAB BLOOD ORDERAB LES Final Result [facility] [address] [place] [phone] * SARS-CoV-2 RNA, Influenza A/B, and RSV RNA, Ql NAAT (04/22/2025 2:18 PM EDT) Influenza A PCR NEGATIVE Negative [facility] Influenza B PCR NEGATIVE Negative [facility] Resp Syncy Virus RNA Qual PCR NEGATIVE Negative [facility] SARS COV2 PCR NEGATIVE Negative [facility] Comment:All test results mus t [...] use by authorized laboratories.Testing performed on the [employer] GeneXpert utilizingreal-time RT-PCR.All SARS CoV2 and positive influenza A/B results arereported to [facility]. 04/22/2025 2:18 PM EDT 04/22/2025 2:27 PM EDT us Generic External Data Provider LAB MICROBIOLOGY - GENERAL ORDERABLES Final Result [facility] [address] [place] [phone] * (ABNORMAL) CBC auto differential (04/22/2025 2:18 PM EDT) Only the most recent of2 resultswithin the time period is included. White Blood Count 6.3 4.8 - 10.8 X10*3/uL [facility] Red Blood Count 4.11(L) 4.20 - 5.50 X10*6/uL [facility] Hemoglobin 11.6(L) 12.0 - 16.0 g/dl [facility] Hematocrit 36.8(L) 37.0 - 47.0 % [facility] Mean Corpuscular Volume 89.5 80.0 - 98.0 fL [facility] Mean Corpuscular Hemoglobin 28.2 27.0 - 33.0 pg [facility] Mean Corpuscular HGB Conc 31.5 31.0 - 35.0 g/dl [facility] Red Cell Distribution Width 15.2 11.0 - 16.0 % [facility] Platelet Count 252 160 - 400 X10*3/uL [facility] Mean Platelet Volume 9.1(L) 9.4 - 12.3 fL [facility] Neutrophils Percent Auto 60.9 45 - 73 % [facility] Imm Gran Pct Auto 0.5(H) 0.0 - 0.4 % [facility] Lymphocytes Percent Auto 30.1 20 - 40 % [facility] Monocytes Percent Auto 6.7 2 - 11 % [facility] Eosinophils Percent Auto 1.0 0 - 4 % [facility] Basophils Percent Auto 0.8 0 - 2 % [facility] NRBC Pct Auto 0.0 0.0 - 0.2 /100WBC [facility] Neutrophils Absolute Auto 3.8 2.0 - 8.3 x10*3/uL [facility] Imm Gran Abs Auto 0.03 0.00 - 0.03 X10*3/uL [facility] Lymphocytes Absolute Auto 1.9 1.2 - 4.9 X10*3/uL [facility] Monocytes Absolute Auto 0.4 0.1 - 1.2 X10*3/uL [facility] Eosinophils Absolute Auto 0.1 0.0 - 0.4 X10*3/uL [facility] Basophils Absolute Auto 0.1 0.0 - 0.2 X10*3/uL [facility] NRBC Abs Auto 0.000 0.0 - 0.012 X10*3/uL [facility] 04/22/2025 2:18 PM EDT 04/22/2025 2:27 PM EDT us Generic External Data Provider LAB BLOOD ORDERAB LES Final Result Performing Organization Address [facility] Co de Phone Number [facility] [address] [place] [phone] * Magnesium (04/22/2025 2:18 PM EDT) Magnesium 1.7 1.6 - 2.6 mg/dL [facility] 04/22/2025 2:18 PM EDT 04/22/2025 2:27 PM EDT Generic External Data Provider LAB BLOOD ORDERAB LES Final Result [facility] [address] [place] [phone] * Hepatic Function Panel (04/22/2025 2:18 PM EDT) Pathologist [facility] Bilirubin, Total 0.3 0.0 - 1.0 mg/dL [facility] Bilirubin, Direct 0.1 0.0 - 0.5 mg/dL [facility] Aspartate Amino Transferase 26 5 - 31 U/L [facility] Alanine Aminotransferase 10 0 - 31 U/L [facility] Total Protein 6.8 6.5 - 8.0 g/dL [facility] Albumin Level 4.2 3.5 - 5.0 g/dL [facility] Alkaline Phosphatase 89 39 - 117 U/L [facility] 04/22/2025 2:18 PM EDT 04/22/2025 2:27 PM EDT Generic External Data Provider LAB BLOOD ORDERAB LES Final Result [facility] [address] [place] [phone] * (ABNORMAL) Basic Metabolic Panel (04/22/2025 2:18 PM EDT) [facility] Sodium 140 135 - 145 mmol/L [facility] Potassium 3.7 3.3 - 5.1 mmol/L [facility] Chloride 111(H) 96 - 108 mmol/L [facility] Carbon Dioxide 23 22 - 29 mmol/L [facility] LABS Anion Gap 10(L) 12 - 20 [facility] Urea Nitrogen (BUN) 42(H) 9 - 16 mg/dL [facility] Creatinine, Serum 1.99(H) 0.5 - 1.4 mg/dL [facility] Creatinine Clr Calc Pharmacy 29.3 [facility] Comment:Provided height and weight: 157.48 cm,87.7 kg.eGFR (calculated from the MDRD study equation) and eCrCl(calculated from the Cockcroft-Gault equation) are based ondifferent parameters and may not yield comparable results.If eCrCl result is absurd, please check patient'sheight/weight. Estimated Glomerular Filt Rate 25 [facility] Comment:Chronic Kidney Disea se: Estimated GFR < 60 mL/min/1.23i5Iawrhr Kidney Disease: Estimated GFR < 15 mL/min/1.73m2 Glucose 64 60 - 115 mg/dL [facility] Calcium 8.8 8.4 - 10.2 mg/dL [facility] 04/22/2025 2:18 PM EDT 04/22/2025 2:27 PM EDT us Generic External Data Provider LAB BLOOD ORDERAB LES Final Result Performing Organization Address City/State/[facility] Co de Phone Number [facility] [address] [place] [phone] * XR Chest 2 Views (04/22/2025 1:34 PM EDT) Anatomical Region Laterality Modality Chest Radiographic Mary ging 04/22/2025 1:34 PM EDT Narrative 04/22/2025 2:41 PM EDT [address] [address] XRay Report Signed Patient: Ese Mendoza MR#: [id number] 8 : 1960 Acct:[id number] Age/Sex: 64 / F ADM Date: 04/22/25 Loc: HO.ED Attending Dr: Ordering Physician: Bella Lomeli Date of Service: 04/22/25 Procedure(s): XR chest 2V Accession Number(s): [id number] cc: Bella Lomeli; Maranda Serna MD EXAMINATION:
--- OUTSIDE RECORDS SUMMARY | 2025-06-17 13:41 | XMS_ITS | Encounter Summary ---
Author Organization [facility] Address [address] [address] Phone Care Team Providers Care Merchandise Executive Name Role Phone Maranda Serna MD Primary Care Provider [phone] Encounter Details Date Type Department Care Team (Late st Contact Info) Description 01/25/2025 Office Communication [facility] [address] [place] [address] Marci Gleason ARNP [address] [address] Social History Tobacco Use Types Packs/Day Years Used Date Smoking Tobacco: Never Smokeless Tobacco: Never Alcohol Use Standard Drinks/Week Comments Yes 0 (1 standard drink = 0.6 oz pure alcohol) Intermittently Hot Amanda. Tea with [place] only if sick Comments Unknown Sex and [...] Visit [facility] [address] [address] Marci Gleason ARNP [address] [address] documented as of this encounter Visit Diagnoses Not on filedocumented in this encounter Care Teams Merchandise Executive Relationship Specialty Start Date End Date Maranda Serna MD [address] [place] [address] PCP - General Family Medicine 08/24/21 documented as of this encounter
--- OUTSIDE RECORDS SUMMARY | 2025-06-17 13:41 | XMS_ITS | Encounter Summary ---
Author Organization [facility] Address [address] [place] [address] Care Team Providers Care Debeaker Name Role Phone Viet Sánchez Unavailable [phone] Viet Sánchez Primary Care Provider [phone] Encounter Details Date Type Department Care Team (Late st Contact Info) Description 11/09/2019 Prep for Surgery XXX OPHTHALMOLOGY [address] [place] [phone] Holland Hunt MD 85 [facility] [address] [place] [address] Social History Tobacco Use Types Packs/Day Years [...] on filedocumented in this encounter Care Teams Debeaker Relationship Specialty Start Date End Date Viet Sánchez PA [address] [place] [address] PCP - General 06/18/18 Viet Sánchez PA [address] [place] [address] 06/18/18 documented as of this encounter
--- OUTSIDE RECORDS SUMMARY | 2025-06-17 13:41 | XMS_ITS | Patient Health Record ---
Author Organization [email or web address] Address [address] [facility] [id number] [place] [address] Care Team Providers Care Reagent Tender Helper Name Role Phone Larisa Saldana Primary Care [...] diabetes mellitus without complications (E11.9) Active confirmed 087926634 Problem Type 2 diabetes mellitus with diabetic polyneuropathy (E11.42) Active confirmed 06447539 Problem Other chronic pain (G89.29) Active confirmed 58157627 Problem Age-related nuclear cataract, bilateral (H25.13) Active confirmed Nuclear senile cataract (583007957) Problem Diabetes (E11.9) Active confirmed Type II diabetes mellitus without complication (974999341) Problem Dyslipidemia (E78.5) Active confirmed 459151269 Problem HTN (hypertension) (I10) Active confirmed Hypertension (58192579) Problem Arthritis (M19.90) Active confirmed 372 3001 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.4) Active confirmed 722233477 Problem Controlled diabetes mellitus with diabetic neuropathy (E11.40) Active confirmed Diabetic peripheral neuropathy associated with type 2 diabetes mellitus (3787542369821) Problem Type 2 diabetes mellitus with mild nonproliferative diabetic retinopathy without macular edema, 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
--- OUTSIDE RECORDS SUMMARY | 2025-06-17 13:41 | XMS_ITS | Clinical Summary ---
Author Organization [facility] Address [address] [place] [address] Care Team Providers Care Manager Operations And Procurement Name Role Phone ChapispriscillaViet Primary Care Provider [phone] Allergies Active Allergy Reactions Criticality Noted Date [...] age to complete this topic Care Teams Manager Operations And Procurement Relationship Specialty Start Date End Date Viet Sánchez [address] [place] [address] PCP - General Medical Services 06/19/18
[2025-06-17 13:44] VITALS: BP 116/56; PULSE 106; O2SAT 96; BMI 36.8
== END 2025-06-17 14:44 | disposition home or self-care (01) ==
LOC: HO.HGI 13:36
PROVIDERS: PCP Family Medicine; Visit Provider Nurse Practitioner Family
DX: K21.9 Gastro-esophageal reflux disease without esophagitis (principal); K86.89 Other specified diseases of pancreas; K58.1 Irritable bowel syndrome with constipation; R14.0 Abdominal distension (gaseous); K59.1 Functional diarrhea
CPT/HCPCS: 99214

== ENCOUNTER → 2025-06-17 13:36 | Outpatient (BNVA) | payer MEDICAID, SELFPAY | PROVIDERS: PCP Family Medicine; Visit Provider Nurse Practitioner Family | DX: K21.9 Gastro-esophageal reflux disease without esophagitis (principal); K86.89 Other specified diseases of pancreas; K58.1 Irritable bowel syndrome with constipation; R14.0 Abdominal distension (gaseous); K59.1 Functional diarrhea; K42.9 Umbilical hernia without obstruction or gangrene; R10.11 Right upper quadrant pain | CPT/HCPCS: 99212 ==

== ENCOUNTER 2025-06-21 13:56 | Outpatient (REF) | payer MEDICAID, SELFPAY ==
--- NOTE | 2025-06-21 14:03 | PFT_ITS ---
Flows: FEV1: 94 % of predicted at 2.09 L FVC: 76 % of predicted at 2.14 L FEV1/FVC: 98 % Bronchodilator response: Absent Volumes: Total lung capacity: 78 % of predicted at 3.67 L Residual volume: 77 % of predicted at 1.32 L Slow vital capacity: 78 % of predicted at 2.35 L Expiratory reserve volume: 26 % of predicted at 0.19 L Diffusion capacity: Mildly decreased, corrects to normal after adjustment for alveolar ventilation. Impression: Moderate restrictive ventilatory defect with no bronchodilator response. Decreased expiratory reserve volume suggests extrathoracic restriction likely secondary to abdominal obesity. Combination of restrictive ventilatory defect with decreased diffusion capacity suggests underlying pulmonary parenchymal disease. Clinical correlation is advised. MTDD
[2025-06-21 14:40] VITALS: PULSE 83; O2SAT 98
--- OUTSIDE RECORDS SUMMARY | 2025-06-21 14:59 | XMS_ITS | Clinical Summary ---
Author Organization [address] [facility] Address [address] [place] [address] Phone Care Team Providers Care Doll Surgeon Name Role Phone Machelle Swann MD Primary Care Provider [phone] Allergies Active Allergy Reactions Criticality Noted Date [...] 42 mcg (0.06 %) nasal spray 1 [place] by Nasal route. 09/24/20 Active omega-3 acid [...] osteoarthritis; plantar fasciitis - referred to a proteomics scientist; waiting for an appt - check [...] hyperkalemia and cough -Currently prescribed Dapagliflozin from drawing machine operator -Follow up in 3-6 mo, sooner [...] & Plan: - followed by [facility] - no anatomical pancreatic abnormality on MRI in Dec 2022 - continue vegan / plant-based pancreatic enzyme Right knee pain 12/16/2022 Allergic rhinitis 10/12/2022 Anemia 10/12/2022 Overview (08/25/2024): Last Assessment & Plan: - likely due to chronic diseaes - Hx iron infusion - 12/24/22 Hgb 11.7, Hematocrit 35.7 Chronic idiopathic constipation 10/12/2022 Overview (08/25/2024): Last Assessment & Plan: -Followed by [facility], last seen 08/06/22 -EGD and Colonoscopy on 12/24/21; showed Tubular Adenoma, she was recommended to repeat in 3 years. - pt has been using castor oil - continue trying fiber-rich diet and increasing physical activity as tolerated. - continue Senakot as prescribed Chronic kidney disease, stag e III (moderate) ([facility] V24, [facility] V28) 10/12/2022 Overview (08/25/2024): Last Assessment & Plan: - Pest Control Operator, Dr. 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 Tsai is prescribing Dapagliflozin (Farxiga) - Previously on Lisinopril, but was disccontinued due to cough / K - Avoid nephrotoxic drugs - Renal dose meds Gastroesophageal reflux disease 10/12/2022 Overview (08/25/2024): Last Assessment & Plan: -s/p EGD 12/24/21 -followed by [facility] -continue omeprazole 40mg daily -previously tried pantoprazole and lansoprazole; pt prefers omeprazole. -previously prescribed famotidine. Max dose for her renal function is 20 mg daily. Pt does not take it regularly. Irritable bowel syndrome 10/12/2022 Overview (08/25/2024): Last Assessment & Plan: - followed by [facility] - continue current treatment plan per GI - low FODMAP diet - pt is prescribed simethicone, Sennakot, citrucel, but does not like taking it regularly Osteopenia 10/12/2022 Atrial fibrillation ([facility], [facility] V28) 0 12/25/2021 Cobalamin deficiency 12/25/2021 Diabetic retinopathy ([facility], [facility] V28) 12/25/2021 Nephrolithiasis 12/25/2021 Overview (08/25/2024): Last Assessment & Plan: - seen by urologist, last visit on Vitamin D deficiency 12/25/2021 Diabetic peripheral neuropat hy associated with type 2 diabetes mellitus ([facility] V24, [facility] V28) 11/22/2019 Nonrheumatic mitral valve regurgitation 11/09/20 Nonrheumatic tricuspid valve regurgitation 11/09 Obstructive sleep apnea syndrome 11/09/2019 Overview (08/25/2024): Last Assessment & Plan: - Pt does not feel comfortable with CPAP SOB (shortness of breath) 11/09/2019 Type 2 diabetes mellitus wit hout complication ([facility] V24, [facility] V28) 11/09/2019 Arthritis 03/03/2019 Chronic cough 01/26/2019 Moderate persistent asthma with acute exacerbati on 01/26/2019 Pulmonary hypertension ([facility], [facility] V28 ) 12/31/2018 Pulmonary arterial hypertension ([facility], [facility] V28) 11/19/2018 Ulcer of foot ([facility]24, [facility] V28) 011 Encounters Date Type Department Care Team Description 05/19/2025 2:15 PM EDT Office Visit Orthopedic Surgery - [address] [address] Damien Centeno, [place]EN[place] Controlled type 2 diabetes mellitus with diabetic polyneuropathy, without long-term current use of insulin ([facility]24, [facility] V28) (Primary Dx); Capsulitis of metatarsophalangeal (MTP) joint of right foot; Arthritis of both midfeet; Pain in toes of both feet; Onychomycosis; Callus from Last 3 Months Immunizations Name Administration [...] Upcoming Encounters Date Type Department Care Team ([facility] st Contact Info) Description 07/21/2025 1:45 PM EDT Office Visit Orthopedic Surgery - [place] [address] [phone] Damien Centeno, [place]ENESSA [address] [address] Health Maintenance Due Date Last Done Comments [...] * Annual BMP Blood Test (12/30/2023) Pathologist [facility] Annual BMP Blood Test Abstracted [facility] Provider HEALTH MAINTENANCE Final Result * Hemoglobin A1c (12/30/2023) [facility] Hemoglobin A1C 0.0 % Comment:no interpretation Blood Venous blood specimen / Unknown Result [facility] Provider LAB BLOOD ORDERABLES Machelle l Result * Lipid panel (12/30/2023) [facility] Triglycerides 0 mg/dL Comment:no interpretation Cholesterol 0 mg/dL Comment:no interpretation HDL 0 mg/dL Comment:no interpretation LDL Cholesterol 0 mg/dL Comment:no interpretation Blood Venous blood specimen / Unknown Result [facility] Provider LAB BLOOD ORDERABLES Machelle l Result * Urine Albumin Creatinine Ratio (07/24/2022) [facility] Urine Albumin Creatinine Ratio Abstracted Result [facility] Provider HEALTH MAINTENANCE Final Result from Last 3 Months or Most Recently Relevant to Health Maintenance Insurance MEDICAID - [place] Care Teams Doll Surgeon Relationship Specialty Start Date End Date Machelle Swann MD [address] [place] [address] [place] [address] PCP - General 10/15/12
--- OUTSIDE RECORDS SUMMARY | 2025-06-21 14:59 | XMS_ITS | Encounter Summary ---
Author Organization [facility] Address [address] [place] [address] Care Team Providers Care Crtt Name Role Phone Viet Sánchez Unavailable [phone] Viet Sánchez Primary Care Provider Encounter Details Date Type Department Care Team (Late st Contact Info) Description 11/09/2019 Prep for Surgery XXX OPHTHALMOLOGY [address] [place] [phone] Holland Hunt MD [address] [facility] [address] [place] [address] Social History Tobacco Use Types Packs/Day Years [...] on filedocumented in this encounter Care Teams Crtt Relationship Specialty Start Date End Date Viet Sánchez PA [address] [place] [address] PCP - General 06/18/18 Viet Sánchez PA [address] [place] [address] 06/18/18 documented as of this encounter
--- OUTSIDE RECORDS SUMMARY | 2025-06-21 14:59 | XMS_ITS | Clinical Summary ---
Author Organization [facility] Address [address] [place] [address] Care Team Providers Care Stockbroker Name Role Phone ChapispriscillaViet Primary Care Provider [phone] Allergies Active Allergy Reactions Criticality Noted Date [...] age to complete this topic Care Teams Stockbroker Relationship Specialty Start Date End Date Viet Sánchez [address] [place] [address] PCP - General Medical Services 06/19/18
--- OUTSIDE RECORDS SUMMARY | 2025-06-21 14:59 | XMS_ITS | Encounter Summary ---
Author Organization [facility] Address [address] [address] Phone Care Team Providers Care Tobacco Sweeper Name Role Phone Maranda Serna MD Primary Care Provider [phone] Encounter Details Date Type Department Care Team (Late st Contact Info) Description 01/25/2025 Office Communication [facility] [address] [place] [address] Marci Gleason ARNP [address] [address] Social History Tobacco Use Types Packs/Day Years Used Date Smoking Tobacco: Never Smokeless Tobacco: Never Alcohol Use Standard Drinks/Week Comments Yes 0 (1 standard drink = 0.6 oz pure alcohol) Intermittently Hot Amanda. Tea with [place] only if sick Comments Unknown Sex and [...] Office Visit [facility] [address] [address] Marci Gleason ARNP [address] [address] documented as of this encounter Visit Diagnoses Not on filedocumented in this encounter Care Teams Tobacco Sweeper Relationship Specialty Start Date End Date Maranda Serna MD [address] [place] [address] PCP - General Family Medicine 08/24/21 documented as of this encounter
--- OUTSIDE RECORDS SUMMARY | 2025-06-21 14:59 | XMS_ITS | Patient Health Record ---
Author Organization [employer] Address [address] [facility] [id number] [place] [address] Care Team Providers Care Creche Attendant Name Role Phone Larisa Saldana Primary Care [...] diabetes mellitus without complications (E11.9) Active confirmed 678268439 Problem Type 2 diabetes mellitus with diabetic polyneuropathy (E11.42) Active confirmed 33997276 Problem Other chronic pain (G89.29) Active confirmed 07775951 Problem Age-related nuclear cataract, bilateral (H25.13) Active confirmed Nuclear senile cataract (959196202) Problem Diabetes (E11.9) Active confirmed Type II diabetes mellitus without complication (197560885) Problem Dyslipidemia (E78.5) Active confirmed 530381592 Problem HTN (hypertension) (I10) Active confirmed Hypertension (96731617) Problem Arthritis (M19.90) Active confirmed 372 3001 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 (Z79.4) Active confirmed 682528247 Problem Controlled diabetes mellitus with diabetic neuropathy (E11.40) Active confirmed Diabetic peripheral neuropathy associated with type 2 diabetes mellitus (5129468751990) Problem Type 2 diabetes mellitus with mild nonproliferative diabetic retinopathy without macular edema, bilateral (E11.3293) Active confirmed Mild nonproliferative retinopathy due to type 2 diabetes mellitus (579423706493168) Problem Left retinal detachment (H33.22) Active confirmed Serous r etinal detachment (90041515) Problem Menopausal and postmenopausal disorder (N95.9) Active confirmed 863739964 PLAN OF TREATMENT Pending Test Test Name [...] End Date MACKENZIE Hughes [address] [place] [phone] Ese Mendoza Self - patient is the insured MEDICAID DENTAL [address] [place] [id number] Ese Mendoza Self - patient is the [...]
--- OUTSIDE RECORDS SUMMARY | 2025-06-21 14:59 | XMS_ITS | Clinical Summary ---
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 - Will obtain lab work. Also curious to see radiographic imaging of the hands, feets, SI and lumbar spine. Will obtain interval history from rating specialist Karlee Le. - RTC in 4 months [...] polyneuropathy, with long-term current use of insulin ([facility]) POCT HEMOGLOBIN, A1C Routine 02/09/2019 8:10 AM EDT Type 2 diabetes mellitus with diabetic polyneuropathy, with long-term current use of insulin ([facility]) HIV COMBO ANTIGEN/ANTIBODY Routine 10/06/2018 3:59 PM EST Polyarthralgia from Last 3 Months or Most Recently Relevant to Health Maintenance Results * Microalbumin/creatinine ratio (02/09/2019 10:15 AM EDT) Microalbumin/Creat Ratio 20 2 - 20 mg/g Creat 02/09/2019 11:55 AM EDT [facility] Creatinine, Urine, Random 101 mg/dL 02/09/2019 11:55 AM EDT [facility] Comment: The laboratory does not have established reference ranges for this test. Interpretation of results is at the discretion of the ordering physician. Urine specimen (specimen) Urine specimen obtained by clean catch procedure / Unknown Non-blood Collection / Unknown 02/09/2019 10:15 AM EDT 02/09/2019 10:15 AM EDT us Keke Katz APRN LAB URINE ORDERABLES Final Res ult [facility] [address] [place] [address], [place] [phone] * POCT hemoglobin, A1c (02/09/2019 8:10 AM EDT) POCT Hemoglobin A1C 9.2 4.4 - 6.4 % Blood specimen (specimen) 02/09/2019 8:10 AM EDT us Keke Katz ENTRY LEVEL PARALEGAL POCT ORDERABLES NO CHARGE Machelle l Result * HIV combo antigen/antibody (10/06/2018 3:59 PM EST) HIV Combo AB/AG Negative Negative 10/06/2018 6:02 PM EST [facility] Blood specimen (specimen) Venous blood specimen / Unknown Venipuncture / Unknown 10/06/2018 3:59 PM EST 10/06/2018 3:59 PM EST Narrative [facility] - 10/06/2018 6:02 PM EST This test is a 4th generation HIV Antigen-Antibody Combination assay, using a chemiluminescent microparticle immunoassay, for the simultaneous qualitative detection of human immuno- deficiency virus (HIV) p24 antigen and antibodies to HIV type 1 (HIV-1) and/or HIV type 2 (HIV-2) in human serum or plasma. The [employer] Field Adjuster HIV Ag/Ab Combo assay is intended to [...] NO ST AT Final Result [facility] [address] [place] [address], [place] [phone] from Last 3 Months or Most Recently Relevant to Health Maintenance Insurance MEDICAID [place] D Care Teams Golf Cart Attendant Relationship Specialty Start Date End Date Viet Sánchez PA [address] [place] [address] PCP - General Family Medicine 07/22/18
== END 2025-06-21 13:57 | disposition home or self-care (01) ==
LOC: HO.RESP 13:56
PROVIDERS: PCP Family Medicine; Visit Provider Nurse Practitioner Family
DX: J45.909 Unspecified asthma, uncomplicated (principal)
CPT/HCPCS: 94010; 94640; 94727; 94729

== ENCOUNTER → 2025-06-21 14:03 | Outpatient (BNV) | payer MEDICAID, SELFPAY | PROVIDERS: PCP Family Medicine; Visit Provider Internal Medicine Pulmonary Disease | DX: J45.909 Unspecified asthma, uncomplicated (principal) | CPT/HCPCS: 94060; 94727; 94729 ==

== ENCOUNTER 2025-07-01 08:49 | Outpatient (REF) | payer MEDICAID, SELFPAY ==
--- NOTE | ~2025-07-01 | US_ITS ---
EXAMINATION: US ABDOMEN LIMITED CLINICAL INFORMATION: Right upper quadrant abdominal pain.. COMPARISON: None available. TECHNIQUE: Real-time ultrasound of the soft tissues in the right upper quadrant abdomen region of concern using a linear transducer with grayscale technique. FINDINGS: No fluid collections. No soft tissue mass. No edema pattern. US/US abdomen limited IMPRESSION: Negative exam, negative. Electronically signed by: Brandon Mosqueda MD 07/01/2025 09:40 AM EDT
--- OUTSIDE RECORDS SUMMARY | 2025-07-01 09:02 | XMS_ITS | Clinical Summary ---
Author Organization [facility] Address [address] [place] [address] Phone Care Team Providers Care Boom Stick Man Name Role Phone Machelle Swann MD Primary Care Provider [phone] Allergies Active Allergy Reactions Criticality Noted Date [...] 42 mcg (0.06 %) nasal spray 1 [place] by Nasal route. 09/24/20 Active omega-3 acid [...] osteoarthritis; plantar fasciitis - referred to a office sweeper; waiting for an appt - check the [...] hyperkalemia and cough -Currently prescribed Dapagliflozin from director ship -Follow up in 3-6 mo, sooner if [...] Last Assessment & Plan: - followed by [facility] - no [...] (08/25/2024): Last Assessment & Plan: -Followed by [facility], last seen 08/06/22 -EGD and Colonoscopy on 12/24/21; showed Tubular Adenoma, she was recommended to repeat in 3 years. - pt has been using castor oil - continue trying fiber-rich diet and increasing physical activity as tolerated. 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 Tsai is prescribing Dapagliflozin (Farxiga) - Previously on Lisinopril, but was disccontinued due to cough / K - Avoid nephrotoxic drugs - Renal dose meds Gastroesophageal reflux disease 10/12/2022 Overview (08/25/2024): Last Assessment & Plan: -s/p EGD 12/24/21 -followed by [facility] -continue omeprazole 40mg daily -previously tried pantoprazole and lansoprazole; pt prefers omeprazole. -previously prescribed famotidine. Max dose for her renal function is 20 mg daily. Pt does not take it regularly. Irritable bowel syndrome 10/12/2022 Overview (08/25/2024): Last Assessment & Plan: - followed by [facility] - continue current treatment plan per GI - low FODMAP diet - pt is prescribed simethicone, Sennakot, citrucel, but does not like taking it regularly Osteopenia 10/12/2022 Atrial fibrillation ([facility] V24, [facility] V28) 0 12/25/2021 Cobalamin deficiency 12/25/2021 Diabetic retinopathy ([facility] V24, [facility] V28) 12/25/2021 Nephrolithiasis 12/25/2021 Overview (08/25/2024): Last Assessment & Plan: - seen by urologist, last visit on Vitamin D deficiency 12/25/2021 Diabetic peripheral neuropat hy associated with type 2 diabetes mellitus ([facility] V24, [facility] V28) 11/22/2019 Nonrheumatic mitral valve regurgitation 11/09/20 Nonrheumatic tricuspid valve regurgitation 11/09 Obstructive sleep apnea syndrome 11/09/2019 Overview (08/25/2024): Last Assessment & Plan: - Pt does not feel comfortable with CPAP SOB (shortness of breath) 11/09/2019 Type 2 diabetes mellitus wit hout complication ([facility] V24, [facility] V28) 11/09/2019 Arthritis 03/03/2019 Chronic cough 01/26/2019 Moderate persistent asthma with acute exacerbati on 01/26/2019 Pulmonary hypertension ([facility] V24, [facility] V28 ) 12/31/2018 Pulmonary arterial hypertension ([facility] V24, [facility] V28) 11/19/2018 Ulcer of foot ([facility] V24, [facility] V28) 011 Encounters Date Type Department Care Team Description 05/19/2025 2:15 PM EDT Office Visit Orthopedic Surgery - [address] [phone] Damien Centeno, VENESSA Controlled type 2 diabetes mellitus with diabetic polyneuropathy, without long-term current use of insulin ([facility] V24, [facility] V28) (Primary Dx); Capsulitis of metatarsophalangeal (MTP) [...] Upcoming Encounters Date Type Department Care Team ([facility] st Contact Info) Description 07/21/2025 1:45 PM EDT Office Visit Orthopedic Surgery - [place] [phone] [phone] Damien Centeno, VENESSA [address] [address] Health Maintenance Due Date Last Done Comments [...] * Annual BMP Blood Test (12/30/2023) Pathologist [facility] Annual BMP Blood Test Abstracted [facility] Provider HEALTH MAINTENANCE Final Result * Hemoglobin A1c (12/30/2023) [facility] Hemoglobin A1C 0.0 % Comment:no interpretation Blood Venous blood specimen / Unknown Result [facility] Provider LAB BLOOD ORDERABLES Machelle l Result * Lipid panel (12/30/2023) [facility] Triglycerides 0 mg/dL Comment:no interpretation Cholesterol 0 mg/dL Comment:no interpretation HDL 0 mg/dL Comment:no interpretation LDL Cholesterol 0 mg/dL Comment:no interpretation Blood Venous blood specimen / Unknown Result [facility] Provider LAB BLOOD ORDERABLES Machelle l Result * Urine Albumin Creatinine Ratio (07/24/2022) [facility] Urine Albumin Creatinine Ratio Abstracted Result [facility] Provider HEALTH MAINTENANCE Final Result from Last 3 Months or Most Recently Relevant to Health Maintenance Insurance MEDICAID - [place] Care Teams Boom Stick Man Relationship Specialty Start Date End Date Machelle Swann MD [address] [place] [address] [place] [address] PCP - General 10/15/12
--- OUTSIDE RECORDS SUMMARY | 2025-07-01 09:02 | XMS_ITS | Clinical Summary ---
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 - Will obtain lab work. Also curious to see radiographic imaging of the hands, feets, SI and lumbar spine. Will obtain interval history from senior advisory Karlee Le. - RTC in 4 months [...] polyneuropathy, with long-term current use of insulin ([facility]) POCT HEMOGLOBIN, A1C Routine 02/09/2019 8:10 AM EDT Type 2 diabetes mellitus with diabetic polyneuropathy, with long-term current use of insulin ([facility]) HIV COMBO ANTIGEN/ANTIBODY Routine 10/06/2018 3:59 PM EST Polyarthralgia from Last 3 Months or Most Recently Relevant to Health Maintenance Results * Microalbumin/creatinine ratio (02/09/2019 10:15 AM EDT) Microalbumin/Creat Ratio 20 2 - 20 mg/g Creat 02/09/2019 11:55 AM EDT [facility] Creatinine, Urine, Random 101 mg/dL 02/09/2019 11:55 AM EDT [facility] Comment: The laboratory does not have established reference ranges for this test. Interpretation of results is at the discretion of the ordering physician. Urine specimen (specimen) Urine specimen obtained by clean catch procedure / Unknown Non-blood Collection / Unknown 02/09/2019 10:15 AM EDT 02/09/2019 10:15 AM EDT us Keke Katz APRN LAB URINE ORDERABLES Final Res ult [facility] [address] [place] [address], [place] [phone] * POCT hemoglobin, A1c (02/09/2019 8:10 AM EDT) POCT Hemoglobin A1C 9.2 4.4 - 6.4 % Blood specimen (specimen) 02/09/2019 8:10 AM EDT us Keke Katz OPTICAL INSTRUMENT ASSEMBLER POCT ORDERABLES NO CHARGE Machelle l Result * HIV combo antigen/antibody (10/06/2018 3:59 PM EST) HIV Combo AB/AG Negative Negative 10/06/2018 6:02 PM EST [facility] Blood specimen (specimen) Venous blood specimen / Unknown Venipuncture / Unknown 10/06/2018 3:59 PM EST 10/06/2018 3:59 PM EST Narrative [facility] - 10/06/2018 6:02 PM EST This test is a 4th generation HIV Antigen-Antibody Combination assay, using a chemiluminescent microparticle immunoassay, for the simultaneous qualitative detection of human immuno- deficiency virus (HIV) p24 antigen and antibodies to HIV type 1 (HIV-1) and/or HIV type 2 (HIV-2) in human serum or plasma. The [employer]iser HIV Ag/Ab Combo assay is intended to [...] NO ST AT Final Result [facility] [address] [place] [address], [place] [phone] from Last 3 Months or Most Recently Relevant to Health Maintenance Insurance MEDICAID [place] D Care Teams Manager Mail Relationship Specialty Start Date End Date Viet Sánchez PA [address] [place] [address] PCP - General Family Medicine 07/22/18
--- OUTSIDE RECORDS SUMMARY | 2025-07-01 09:02 | XMS_ITS | Encounter Summary ---
Author Organization [facility] Address [address] [phone] Phone Care Team Providers Care Business Development Consultant Name Role Phone Maranda Serna MD Primary Care Provider [phone] Encounter Details Date Type Department Care Team (Late st Contact Info) Description 01/25/2025 Office Communication [facility] [address] [place] [phone] Marci Gleason ARNP [address] [phone] Social History Tobacco Use Types Packs/Day Years Used Date Smoking Tobacco: Never Smokeless Tobacco: Never Alcohol Use Standard Drinks/Week Comments Yes 0 (1 standard drink = 0.6 oz pure alcohol) Intermittently Hot Amanda. Tea with [place] only if sick Comments Unknown Sex and [...] Office Visit [facility] [address] [phone] Marci Gleason ARNP [address] [phone] documented as of this encounter Visit Diagnoses Not on filedocumented in this encounter Care Teams Business Development Consultant Relationship Specialty Start Date End Date Maranda Serna MD [address] [place] [address] PCP - General Family Medicine 08/24/21 documented as of this encounter
--- OUTSIDE RECORDS SUMMARY | 2025-07-01 09:02 | XMS_ITS | Encounter Summary ---
Author Organization [facility] Address [address] [place] [address] Care Team Providers Care Pear Picker Name Role Phone Viet Sánchez Unavailable [phone] Viet Sánchez Primary Care Provider [phone] Encounter Details Date Type Department Care Team (Late st Contact Info) Description 11/09/2019 Prep for Surgery [facility] OPHTHALMOLOGY [address] [place] [address] Holland Hunt MD [address] [facility] [address] [place] [address] Social History Tobacco Use Types Packs/Day Years [...] on filedocumented in this encounter Care Teams Pear Picker Relationship Specialty Start Date End Date Viet Sánchez PA [address] [place] [address] PCP - General 06/18/18 Viet Sánchez PA [address] [place] [id number] 06/18/18 documented as of this encounter
--- OUTSIDE RECORDS SUMMARY | 2025-07-01 09:02 | XMS_ITS | Clinical Summary ---
Author Organization [employer] Address [address] [facility] [address] [place] [address] Care Team Providers Care Waiter Name Role Phone Maranda Serna MD Primary Care Provider [phone] Allergies Active Allergy Reactions Criticality Noted Date [...] 2 12/13/19 25 Active Easy Touch Pen [place] 31G X 8 MM miscIndications :Type 2 diabetes mellitus with hyperglycemia, with long-term current use of insulin ([facility]) USE DIRECTED THREE TIMES DAILY 200 [...] hyperglycemia, with long-term current use of insulin ([facility]) TEST BLOOD SUGAR THREE TIMES DAILY [...] hyperglycemia, with long-term current use of insulin ([facility]) OneTouch brand. TEST BLOOD SUGAR THREE TIMES DAILY 100 each 05/04/20 25 026 Active glucose blood (FREESTYLE LITE) test stripIndication s:Type 2 diabetes mellitus with stage 3b chronic kidney disease, with long-term current use of insulin ([facility]) USE TO TEST BLOOD SUGAR THREE TIMES A DAY 100 each 05/19/20 25 Active Blood Glucose Monitoring Suppl (FreeStyle Lite) w/Device kitIndications: Type 2 diabetes mellitus with stage 3b chronic kidney disease, with long-term current use of insulin ([facility]) 1 Dose by Other route 3 times daily. USE TO TEST BLOOD SUGAR THREE TIMES A DAY 1 kit 05/19/20 25 Active TRUEplus Lancets 33G miscIndications :Type 2 diabetes mellitus with stage 3b chronic kidney disease, with long-term current use of insulin ([facility]) USE TO TEST BLOOD SUGAR THREE TIMES A DAY 100 each 3 05/19/20 25 Active Active Problems Problem Noted Date Diagnosed Date Gas pain 04/22/2025 Assessment & Plan (04/22/2025 3:38 PM EDT): - Patient requests simethicone tablet form not capsule. Pulmonary nodule 02/07/2025 Coronary artery disease 01/16/2025 Assessment & Plan (04/12/2025 1:39 PM EDT): -Lint Cleaner[place] [facility] last seen in Dec 2024 -11/30/2024- Cardiac catheterization showed [id number] distal LAD disease with severe distal stenosis [...] Assessment & Plan (01/21/2025 12:33 PM EDT): -Lint Cleaner: [facility], last seen in Dec 2024 -11/30/2024- Cardiac catheterization showed [id number] distal LAD disease with severe distal stenosis [...] and supportive care - follow up with engineer operations and maintenance as scheduled Assessment & Plan (07/23/2024 9:02 [...] Plan (01/17/2025 11:35 AM EDT): - seeing engineer operations and maintenance - continue judicious use of gabapentin 100 mg tid - she wants to switch to tablet. Only tablets available are 600 and 800 mg tablet - will have her take 1/4 of 600 mg tablet and take bid; or will check with pharmacist if she can open the capsule and take inside content Assessment & Plan (07/23/2024 5:36 AM EDT): - seeing engineer operations and maintenance - continue judicious use of gabapentin 100 mg tid - she wants to switch to tablet. Only tablets available are 600 and 800 mg tablet - will have her take 1/4 of 600 mg tablet and take bid; or will check with pharmacist if she can open the capsule and take inside content Assessment & Plan (01/04/2024 3:36 PM EST): - seeing engineer operations and maintenance - continue judicious use of gabapentin Assessment & Plan (10/03/2023 9:48 AM EST): - seeing engineer operations and maintenance - waiting for diabetic orthotics Adjustment disorder [...] hyperkalemia and cough -Currently prescribed Dapagliflozin from studio designer Assessment & Plan (07/20/2024 1:50 PM EDT): -Goal BP < 140/90 per JNC-8 and < 130/80 per ACC/AHA guideline (Treatment threshold >= 140/90 ) -BP at goal today -Continue working on lifestyle modifications -Recommended self-monitoring BP. -Pt has tried lisinopril for renal protection, not for HTN, in the past, but it was discontinued due to hyperkalemia and cough -Currently prescribed Dapagliflozin from studio designer -Follow up in 3-6 mo, sooner if [...] hyperkalemia and cough -Currently prescribed Dapagliflozin from studio designer -Follow up in 3-6 mo, sooner if [...] neuropathy; osteoarthritis; plantar fasciitis - Following with engineer operations and maintenance Assessment & Plan (06/07/2023 3:44 PM EDT): - left foot worse than right - multifactorial: Diabetic peripheral neuropathy; osteoarthritis; plantar fasciitis - referred to a engineer operations and maintenance; waiting for an appt - check the [...] want to try any GLP-1 agonist. -Patient Neurology Professor prescribed Farxiga. Patient is taking this medication [...] want to try any GLP-1 agonist. -Patient Neurology Professor prescribed Farxiga. Patient is no longer taking [...] (01/04/2024 3:42 PM EST): - followed by [facility] - no anatomical pancreatic abnormality on MRI in Dec 2022 - continue vegan / plant-based pancreatic enzyme Assessment & Plan (10/03/2023 9:49 AM EST): - followed by [facility] - no anatomical pancreatic abnormality on MRI in Dec 2022 - continue vegan / plant-based pancreatic enzyme Assessment & Plan (06/07/2023 3:30 PM EDT): - followed by [facility] - no anatomical pancreatic abnormality on MRI in Dec 2022 - continue vegan / plant-based pancreatic enzyme Assessment & Plan (02/24/2023 5:30 AM EDT): - followed by [facility] - no anatomical pancreatic abnormality on MRI in Dec 2022 - continue vegan / plant-based pancreatic enzyme Assessment & Plan (12/18/2022 6:12 PM EST): - followed by [facility] - continue vegan pancreatic enzyme Allergic [...] Plan (01/21/2025 12:33 PM EDT): -Followed by [facility], last seen 01/03/25 -EGD and Colonoscopy on 12/24/21; showed Tubular Adenoma, she was recommended to repeat in 3 years. - pt has been using castor oil - continue trying fiber-rich diet and increasing physical activity as tolerated. - continue Senakot as prescribed Assessment & Plan (07/20/2024 1:50 PM EDT): -Followed by [facility], last seen 08/06/22 -EGD and Colonoscopy on 12/24/21; showed Tubular Adenoma, she was recommended to repeat in 3 years. - pt has been using castor oil - continue trying fiber-rich diet and increasing physical activity as tolerated. - continue Senakot as prescribed Assessment & Plan (01/04/2024 3:38 PM EST): -Followed by [facility], last seen 08/06/22 -EGD and Colonoscopy on 12/24/21; showed Tubular Adenoma, she was recommended to repeat in 3 years. - pt has been using castor oil - continue trying fiber-rich diet and increasing physical activity as tolerated. - continue Senakot as prescribed Assessment & Plan (06/07/2023 3:33 PM EDT): -Followed by [facility], last seen 08/06/22 -EGD and Colonoscopy on 12/24/21; showed Tubular Adenoma, she was recommended to repeat in 3 years. - pt has been using castor oil - continue trying fiber-rich diet and increasing physical activity as tolerated. - continue Senakot as prescribed Assessment & Plan (12/18/2022 6:26 PM EST): -[facility]ed by [facility] & Plan (04/12/2025 1:40 PM EDT): - Neurology Professor, Dr. Marci Hylton. Last seen on 01/25/25 - Metformin is discontinued, Dr. Tsai started her on Dapagliflozin (Farxiga) - Previously on Lisinopril, but was disccontinued due to cough / K - Avoid nephrotoxic drugs, including NSAID (no more Aleve) - Renal dose meds Assessment & Plan (01/21/2025 12:32 PM EDT): - Neurology Professor, Dr. Marci Hylton. Last seen on 01/25/25 - Metformin is discontinued, Dr. Tsai started her on Dapagliflozin (Farxiga) - Previously on Lisinopril, but was disccontinued due to cough / K - Avoid nephrotoxic drugs, including NSAID (no more Aleve) - Renal dose meds Assessment & Plan (07/23/2024 5:41 AM EDT): - Neurology Professor, Dr. Marci Hylton. - Metformin is discontinued, Dr. Tsai started bryn ib Dapagliflozin (Farxiga) - Previously on Lisinopril, but was disccontinued due to cough / K - Avoid nephrotoxic drugs, including NSAID (no more Aleve) - Renal dose meds Assessment & Plan (01/04/2024 3:45 PM EST): - Neurology Professor, Dr. 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 Tsai is prescribing Dapagliflozin (Farxiga) - Previously on Lisinopril, but was disccontinued due to cough / K - Avoid nephrotoxic drugs - Renal dose meds Assessment & Plan (10/03/2023 9:41 AM EST): - Neurology Professor, Dr. 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 Tsai rx Farxiga for DM management - Previously on Lisinopril, but was disccontinued due to cough / K - Avoid nephrotoxic drugs - Renal dose meds - Pt was advised that atorvastatin is not nephrotoxic and it will lower her ASCVD risk. Pt continues to decline statin therapy. Assessment & Plan (06/07/2023 3:34 PM EDT): - Neurology Professor, Dr. 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 [...] & Plan (02/24/2023 5:37 AM EDT): - Neurology Professor, Dr. Tsai - Lab: 12/24/22 BUN 28, [...] & Plan (12/18/2022 6:31 PM EST): - Neurology Professor, Dr. 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 [...] PM EDT): -s/p EGD 12/24/21 -followed by [facility] -refill famotidine as requested. Patient takes prn. -since patient is on clopidogrel, will check whether patient is taking omeprazole or pantoprazole. Assessment & Plan (01/04/2024 3:42 PM EST): -s/p EGD 12/24/21 -followed by [facility] -continue omeprazole 40mg daily -previously tried pantoprazole and lansoprazole; pt prefers omeprazole. -previously prescribed famotidine. Max dose for her renal function is 20 mg daily. Pt does not take it regularly. Assessment & Plan (10/03/2023 9:50 AM EST): -s/p EGD 12/24/21 -followed by [facility] -continue omeprazole 40mg daily -previously tried pantoprazole and lansoprazole; pt prefers omeprazole. -previously prescribed famotidine. Max dose for her renal function is 20 mg daily. Pt does not take it regularly. Assessment & Plan (06/07/2023 3:33 PM EDT): -s/p EGD 12/24/21 -followed by [facility] -continue omeprazole 40mg daily -previously tried pantoprazole and lansoprazole; pt prefers omeprazole. -previously prescribed famotidine. Max dose for her renal function is 20 mg daily. Pt does not take it regularly. Assessment & Plan (12/18/2022 6:28 PM EST): -s/p EGD 12/24/21 -followed by [facility] -continue prantoprazol 40mg daily -previously prescribed famotidine. Max dose for her renal function is 20 mg daily. Irritable bowel syndrome 10/12/2022 Assessment & Plan (07/20/2024 1:50 PM EDT): - followed by [facility] - continue current treatment plan per GI - low FODMAP diet - pt is prescribed simethicone, Sennakot, citrucel, but does not like taking it regularly Assessment & Plan (01/04/2024 3:42 PM EST): - followed by [facility] - continue current treatment plan per GI - low FODMAP diet - pt is prescribed simethicone, Sennakot, citrucel, but does not like taking it regularly Assessment & Plan (10/03/2023 9:49 AM EST): - followed by [facility] - continue current treatment plan per GI - low FODMAP diet - pt is prescribed simethicone, Sennakot, citrucel, but does not like taking it regularly Assessment & Plan (06/07/2023 3:32 PM EDT): - followed by [facility] - continue current treatment plan per GI - low FODMAP diet - pt is prescribed simethicone, Sennakot, citrucel, but does not like taking it regularly Assessment & Plan (12/18/2022 6:27 PM EST): - followed by [facility] [...] - Prescribed dapagliflozin (Farxiga) from PCP and studio designer, questionable adherence - Discussed about CGM, which she does not want to use it at this time Treatment Hx -Pt has taken GLP-1 agonists and had significant side effects, mainly GI. Pt states she does not want to try any GLP-1 agonist. -Patient Neurology Professor prescribed Farxiga. Patient is taking this medication [...] - Prescribed dapagliflozin (Farxiga) from PCP and studio designer, questionable adherence - Discussed about CGM, which she does not want to use it at this time Treatment Hx -Pt has taken GLP-1 agonists and had significant side effects, mainly GI. Pt states she does not want to try any GLP-1 agonist. -Patient Neurology Professor prescribed Farxiga. Patient is taking this medication [...] want to try any GLP-1 agonist. -Patient Neurology Professor prescribed Farxiga. Patient is taking this medication [...] want to try any GLP-1 agonist. -Patient Neurology Professor prescribed Farxiga. Patient is no longer taking [...] want to try any GLP-1 agonist. -Patient Neurology Professor prescribed Farxiga. Patient is no longer taking [...] want to try any GLP-1 agonist. -Patient Neurology Professor prescribed Farxiga. Patient is no longer taking [...] want to try any GLP-1 agonist. -Patient Neurology Professor prescribed Farxiga. Patient is no longer taking [...] Department Care Team Description 05/27/2025 Results Follow-Up [facility] [address] [place] [address] Maranda Serna MD BI Mammogram Screening Tomosynthesis Bilateral, US Thyroid 05/19/2025 Refill [facility] [address] [place], [place] [phone] Maranda Serna MD Type 2 diabetes mellitus with stage 3b chronic kidney disease, with long-term current use of insulin ([facility]) 05/04/2025 Refill [facility] [address] [place] [address] Maranda Serna MD Type 2 diabetes mellitus with hyperglycemia, with long-term current use of insulin ([facility]) 04/25/2025 Orders Only [facility] [address] [place] [address] Maranda Serna MD 04/22/2025 Orders Only GENERIC EXTERNAL DATA DEPARTMENT Provider, Generic External Data 04/12/2025 3:30 PM EDT Office Visit [facility] [address] [place] [address] Maranda Serna MD Elevated blood pressure reading in office without diagnosis of hypertension (Primary Dx); Dyslipidemia; Coronary artery disease of [place] artery of [place] heart with stable angina pectoris (CMS/HCC); Type 2 diabetes mellitus with stage 3b chronic kidney disease, with long-term current use of insulin ([facility]/HCC); Type 2 diabetes mellitus with hyperglycemia, with long-term current use of insulin ([facility]/HCC); Stage 3b chronic kidney disease ([facility]/HCC); Anemia due to stage 3b chronic kidney disease ([facility]/HCC); Thyroid nodule; Type 2 diabetes mellitus with diabetic polyneuropathy, with long-term current use of insulin ([facility]); Dietary counseling; Exercise counseling; Class 2 severe obesity due to excess calories with serious comorbidity and body mass index (BMI) of 35.0 to 35.9 in adult ([facility]); Gastroesophageal reflux disease, unspecified whether esophagitis present; Gas pain; Bilateral foot pain; Breast cancer screening by mammogram 04/12/2025 Travel from Last 3 Months Immunizations Immunization Administration [...] Description 07/12/2025 3:30 PM EDT Office Visit [facility] [address] [place] [address] Maranda Serna MD [address] [place], [place] [phone] Health Maintenance Due Date Last Done Comments [...] 01/17/2026 01/17/2025 Depression Screening 01/17/2026 01/17/2025, 01/18/20 Lipid Panel 03/22/2026 03/22/2025, 12/12, 12/24/2022, Additional [...] with long-term current use of insulin (CMS/HCC) LIPID PANEL WITH REFLEX TO DIRECT LDL Routine 03/22/2025 3:47 PM EDT Type 2 diabetes mellitus with hyperglycemia, with long-term current use of insulin (CMS/[facility]) Dyslipidemia HM MAMMOGRAPHY Routine 08/21/2022 HM COLONOSCOPY Routine 07/07/2022 from Last 3 Months or Most Recently Relevant to Health Maintenance Results * US Thyroid (06/06/2025 1:04 PM EDT) Anatomical Region Laterality Modality Head, Neck Ultrasound 06/06/2025 1:04 PM EDT Narrative 06/06/2025 1:50 PM EDT [address] [address] Ultrasound Report Signed Patient: Ese Mendoza MR#: [id number] 8 : 1960 Acct:[id number] Age/Sex: 64 / F ADM Date: 06/06/25 Loc: .US Attending Dr: Maranda Serna MD Ordering Physician: Maranda Serna MD Date of Service: 06/06/25 Procedure(s): US thyroid Accession Number(s): [id number] cc: Maranda Serna MD EXAMINATION: US THYROID [...] than or equal to 1 cm: 1. Miner Assistant nodules are described as follows: 1. Location: [...] 06/06/25 1347 DD/ 1304 TD/TT: 06/06/25 1316 Final Inspection Supervisor: Procedure Note Donotuseinterpreter, Image - 06/06/[address] [address] Ultrasound Report Signed Patient: Ese MendozaMR#: [id number] 8 : 1960Acct:[id number] Age/Sex: 64 / FADM Date: 06/06/25 Loc: HO.US Attending Dr: Maranda Serna MD Ordering Physician: Maranda Serna MD Date of Service: 06/06/25 Procedure(s): US thyroid Accession Number(s): [id number] cc: Maranda Serna MD EXAMINATION: US THYROID [...] than or equal to 1 cm: 1. Miner Assistant nodules are described as follows: 1. Location: [...] Reyes MD Signed By: <Electronically signed by Barndon Gonzlaes MDin OV> 06/06/25 1347 DD/ 1304 TD/TT: 06/06/25 1316 Final Inspection Supervisor: us Maranda Serna MD IMG US PROCEDURES Final Result * BI Mammogram Screening Tomosynthesis Bilateral (05/16/2025 12:30 PM EDT) Anatomical Region Laterality Modality Breast Bilateral Mammography 05/16/2025 12:3 0 PM EDT Narrative 05/26/2025 7:54 PM EDT [facility] [address] [place] [address] Mammography Report Signed Patient: Ese Mendoza MR#: [id number] 8 : 1960 Acct:[id number] Age/Sex: 64 / F ADM Date: 05/16/25 Loc: HO.MAMMO Attending Dr: Maranda Serna MD Ordering Physician: Maranda Serna MD Results: 0Incomple te: Needs Additional Imaging Evaluation Date of Service: 05/16/25 Follow Up: Additional Imagi ng Procedure(s): MM tomosynthesis screening BI Accession Number(s): [id number] cc: Maranda Serna MD EXAMINATION: MM SCREENING [...] OV> 05/26/251950 DD/ 1230 TD/TT: 05/16/25 1245 Final Inspection Supervisor: Procedure Note Donotuseinterpreter, Image - 05/26/2025 [facility] [address] [place] [address] Mammography Report Signed Patient: Ese MendozaMR#: [id number] 8 : 1960Acct:[id number] Age/Sex: 64 / FADM Date: 05/16/25 Loc: [place] Attending Dr: Maranda Serna MD Ordering Physician: Maranda Serna MDResults: 0Incomple te: Needs Additional Imaging Evaluation Date of Service: 05/16/25Follow Up: Additional Imagi ng Procedure(s): MM tomosynthesis screening BI Accession Number(s): [id number] cc: Maranda Serna MD EXAMINATION: MM SCREENING [...] Julio Pickard MD 05/26/2025 07:51 PM EDT Workstation: [facility] Dictated By: Julio Pickard MD Signed By: <Electronically signed by Julio Pickard MD in OV> 05/26/251950 DD/ 1230 TD/TT: 05/16/25 1245 Final Inspection Supervisor: Maranda Serna MD IMG BI PROCEDURES Edited Result - Final * High Sensitivity Troponin I (04/22/2025 2:18 PM EDT) Pathologist [facility] TROPONIN I HIGH SENSITIVITY 7.1 <3.5 - 17.0 ng/L [facility] Comment:The Castillo high sens itivity Troponin-I results should beused in conjunction with other diagnostic information suchas ECG, clinical observations and information, and patientsymptoms to aid in the diagnosis of [place]. 04/22/2025 2:18 PM EDT 04/22/2025 2:27 PM EDT us Generic External Data Provider LAB BLOOD ORDERAB LES Final Result [facility] [address] [place] [phone] * SARS-CoV-2 RNA, Influenza A/B, and RSV RNA, Ql NAAT (04/22/2025 2:18 PM EDT) Pathologist [facility] Influenza A PCR NEGATIVE Negative [facility] Influenza B PCR NEGATIVE Negative [facility] Resp Syncy Virus RNA Qual PCR NEGATIVE Negative [facility] SARS COV2 PCR NEGATIVE Negative [facility] Comment:All test results mus t [...] use by authorized laboratories.Testing performed on the [employer] GeneXpert utilizingreal-time RT-PCR.All SARS CoV2 and positive influenza A/B results arereported to [facility]. 04/22/2025 2:18 PM EDT 04/22/2025 2:27 PM EDT Generic External Data Provider LAB MICROBIOLOGY - GENERAL ORDERABLES Final Result [facility] [address] [place] [phone] * (ABNORMAL) CBC auto differential (04/22/2025 2:18 PM EDT) White Blood Count 6.3 4.8 - 10.8 X10*3/uL [facility] Red Blood Count 4.11(L) 4.20 - 5.50 X10*6/uL [facility] Hemoglobin 11.6(L) 12.0 - 16.0 g/dl [facility] Hematocrit 36.8(L) 37.0 - 47.0 % [facility] Mean Corpuscular Volume 89.5 80.0 - 98.0 fL [facility] Mean Corpuscular Hemoglobin 28.2 27.0 - 33.0 pg [facility] Mean Corpuscular HGB Conc 31.5 31.0 - 35.0 g/dl [facility] Red Cell Distribution Width 15.2 11.0 - 16.0 % [facility] Platelet Count 252 160 - 400 X10*3/uL [facility] Mean Platelet Volume 9.1(L) 9.4 - 12.3 fL [facility] Neutrophils Percent Auto 60.9 45 - 73 % [facility] Imm Gran Pct Auto 0.5(H) 0.0 - 0.4 % [facility] Lymphocytes Percent Auto 30.1 20 - 40 % [facility] Monocytes Percent Auto 6.7 2 - 11 % [facility] Eosinophils Percent Auto 1.0 0 - 4 % [facility] Basophils Percent Auto 0.8 0 - 2 % [facility] NRBC Pct Auto 0.0 0.0 - 0.2 /100WBC [facility] Neutrophils Absolute Auto 3.8 2.0 - 8.3 x10*3/uL [facility] Imm Gran Abs Auto 0.03 0.00 - 0.03 X10*3/uL [facility] Lymphocytes Absolute Auto 1.9 1.2 - 4.9 X10*3/uL [facility] Monocytes Absolute Auto 0.4 0.1 - 1.2 X10*3/uL [facility] Eosinophils Absolute Auto 0.1 0.0 - 0.4 X10*3/uL [facility] Basophils Absolute Auto 0.1 0.0 - 0.2 X10*3/uL [facility] NRBC Abs Auto 0.000 0.0 - 0.012 X10*3/uL [facility] 04/22/2025 2:18 PM EDT 04/22/2025 2:27 PM EDT us Generic External Data Provider LAB BLOOD ORDERAB LES Final Result [facility] [address] [place] [phone] * Magnesium (04/22/2025 2:18 PM EDT) Magnesium 1.7 1.6 - 2.6 mg/dL [facility] 04/22/2025 2:18 PM EDT 04/22/2025 2:27 PM EDT Generic External Data Provider LAB BLOOD ORDERAB LES Final Result Performing Organization Address [facility] Co de Phone Number [facility] [address] [place] [phone] * Hepatic Function Panel (04/22/2025 2:18 PM EDT) Bilirubin, Total 0.3 0.0 - 1.0 mg/dL [facility] Bilirubin, Direct 0.1 0.0 - 0.5 mg/dL [facility] Aspartate Amino Transferase 26 5 - 31 U/L [facility] Alanine Aminotransferase 10 0 - 31 U/L [facility] Total Protein 6.8 6.5 - 8.0 g/dL [facility] Albumin Level 4.2 3.5 - 5.0 g/dL [facility] Alkaline Phosphatase 89 39 - 117 U/L [facility] 04/22/2025 2:18 PM EDT 04/22/2025 2:27 PM EDT us Generic External Data Provider LAB BLOOD ORDERAB LES Final Result Performing Organization Address [facility] de Phone Number [facility] [address] [place] [phone] * (ABNORMAL) Basic Metabolic Panel (04/22/2025 2:18 PM EDT) Sodium 140 135 - 145 mmol/L [facility] Potassium 3.7 3.3 - 5.1 mmol/L [facility] Chloride 111(H) 96 - 108 mmol/L [facility] Carbon Dioxide 23 22 - 29 mmol/L [facility] Anion Gap 10(L) 12 - 20 [facility] Urea Nitrogen (BUN) 42(H) 9 - 16 mg/dL [facility] Creatinine, Serum 1.99(H) 0.5 - 1.4 mg/dL [facility] Creatinine Clr Calc Pharmacy 29.3 [facility] Comment:Provided height and weight: 157.48 cm,87.7 kg.eGFR (calculated from the MDRD study equation) and eCrCl(calculated from the Cockcroft-Gault equation) are based ondifferent parameters and may not yield comparable results.If eCrCl result is absurd, please check patient'sheight/weight. Estimated Glomerular Filt Rate 25 [facility] Comment:Chronic Kidney Disea se: Estimated GFR < 60 mL/min/1.41b0Vxjoug Kidney Disease: Estimated GFR < 15 mL/min/1.73m2 Glucose 64 60 - 115 mg/dL [facility] Calcium 8.8 8.4 - 10.2 mg/dL [facility] 04/22/2025 2:18 PM EDT 04/22/2025 2:27 PM EDT us Generic External Data Provider LAB BLOOD ORDERAB LES Final Result Performing Organization Address City/State/[facility] Co de Phone Number [facility] [address] [place] [phone] * XR Chest 2 Views (04/22/2025 1:34 PM EDT) Anatomical Region Laterality Modality Chest Radiographic Mary ging 04/22/2025 1:34 PM EDT Narrative 04/22/2025 2:41 PM EDT [address] [address] XRay Report Signed Patient: Ese Mendoza MR#: [id number] 8 : 1960 Acct:[id number] Age/Sex: 64 / F ADM Date: 04/22/25 Loc: HO.ED Attending Dr: Ordering Physician: Bella Lomeli Date of Service: 04/22/25 Procedure(s): XR chest 2V Accession Number(s): [id number] cc: Bella Lomeli; Maranda Serna MD EXAMINATION: [...] 04/22/25 1438 DD/ 1334 TD/TT: 04/22/25 1431 Final Inspection Supervisor: Procedure Note Donotuseinterpreter, Image - 04/22/2025 [place] [address] XRay Report Signed Patient: Ese MendozaMR#: [id number] 8 : 1960Acct:[id number] Age/Sex: 64 / FADM Date: 04/22/25 Loc: .ED Attending Dr: Ordering Physician: Bella Lomeli Date of Service: 04/22/25 Procedure(s): XR chest 2V Accession Number(s): [id number] cc: Bella Lomeli; Maranda Serna MD EXAMINATION: [...] 04/22/25 1438 DD/ 1334 TD/TT: 04/22/25 1431 Final Inspection Supervisor: [facility] External Provider IMG XR PROCEDURES Final Result * (ABNORMAL) POCT glycosylated hemoglobin (Hgb A1c) (04/12/2025 4:10 PM EDT) Pathologist [facility] Hemoglobin A1C 8.2(A) 4.0 - 6.0 % QC Media Lot # [id number] Lot# Expiration Date Blood Capillary blood specimen / Unknown 04/12/2025 4:10 PM EDT Maranda Serna MD POINT OF CARE TEST ENTER/EDIT OR DERABLES Final Result * (ABNORMAL) POCT glucose manually resulted (04/12/2025 3:56 PM EDT) Pathologist [facility] Glucose Blood, POC 215(A) 60 - 200 mg/dL QC Media Lot # [id number] Lot# Expiration Date , Blood Capillary blood specimen / Unknown 04/12/2025 3:56 PM EDT Maranda Serna MD POINT OF CARE TEST ENTER/EDIT OR DERABLES Final Result * Lipid Panel with Reflex to Direct LDL (03/22/2025 3:47 PM EDT) Triglycerides 96 <150 mg/dL [facility] Comment:Desirable Triglyceri de: less than 150 mg/dLBorderline High Triglyceride 150-199 mg/dLHigh Triglyceride: 200-499 mg/dLVery High Triglyceride: greater than or equal to 5OO mg/dL Cholesterol 124 <200 mg/dL [facility] Comment:Desirable Cholestero l: less than 200 mg/dLBorderline High Cholesterol: 200-239 mg/dLHigh Cholesterol: greater than 239 mg/dL LDL Cholesterol Calculated 52 <100 mg/dL [facility] Comment:Desirable LDL: less than 100 mg/dLNear Optimal/Above Optimal LDL: 110- 129 mg/dLBorderline High LDL: 130-159 mg/dLHigh LDL: 160-189 mg/dLVery High LDL: greater than or equal to 190 mg/dL HDL Cholesterol 53 >40 mg/dL [facility] Comment:Desirable HDL: great er than 40 mg/dL Note: This HDL assay may give artificially low results in patients with liver disease. Blood 03/22/2025 3:47 PM EDT 03/22/2025 5:53 PM EDT Maranda Serna MD LAB BLOOD ORDERABLES Final Resul t [facility] [address] [place] [address] [phone] * Mammography (08/21/2022) Mammogram performed Anatomical Region Laterality Modality Other Historical Provider HEALTH MAINTENANCE Final Result * (ABNORMAL) Colonoscopy (07/07/2022) Colonoscopy Abnormal(A ) Normal [facility] External Provider HEALTH MAINTENANCE Final Result from Last 3 Months or Most Recently Relevant to Health Maintenance Insurance [facility] C3 Care Teams Waiter Relationship Specialty Start Date End Date Maranda Serna MD [address] [place] [phone] PCP - General Family Medicine 08/01/21
--- OUTSIDE RECORDS SUMMARY | 2025-07-01 09:03 | XMS_ITS | Patient Health Record ---
Author Organization [facility] Address [address] [facility] [id number] [place] [address] Care Team Providers Care Employment Law Specialist Name Role Phone Lraisa Saldana Primary Care Provider [phone] ALLERGIES Allergen (clinical drug ingredient) Drug/Non Drug [...] diabetes mellitus without complications (E11.9) Active confirmed 638536092 Problem Type 2 diabetes mellitus with diabetic polyneuropathy (E11.42) Active confirmed 70919192 Problem Other chronic pain (G89.29) Active confirmed 72973555 Problem Age-related nuclear cataract, bilateral (H25.13) Active confirmed Nuclear senile cataract (787161790) Problem Diabetes (E11.9) Active confirmed Type II diabetes mellitus without complication (227330822) Problem Dyslipidemia (E78.5) Active confirmed 057516663 Problem HTN (hypertension) (I10) Active confirmed Hypertension (87577907) Problem Arthritis (M19.90) Active confirmed 372 3001 Problem 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.4) Active confirmed 915700898 Problem Controlled diabetes mellitus with diabetic neuropathy (E11.40) Active confirmed Diabetic peripheral neuropathy associated with type 2 diabetes mellitus (8267890568497) Problem Type 2 diabetes mellitus with mild nonproliferative diabetic retinopathy without macular edema, bilateral (E11.3293) Active confirmed Mild nonproliferative retinopathy due to type 2 diabetes mellitus (788592410164435) Problem Left retinal detachment (H33.22) Active confirmed Serous r etinal detachment (15706368) Problem Menopausal and postmenopausal disorder (N95.9) Active confirmed 328069061 PLAN OF TREATMENT Pending Test Test Name [...] End Date MACKENZIE Hughes [address] [place] [address] [phone] Ese Mendoza Self - patient is the insured MEDICAID DENTAL [address] [place] [address] [id number] Ese Mendoza Self - patient is the [...]
--- OUTSIDE RECORDS SUMMARY | 2025-07-01 09:03 | XMS_ITS | Clinical Summary ---
Author Organization [facility] Address [address] [place] [address] Care Team Providers Care Inspector Fuel Hose Name Role Phone ChapispriscillaViet Primary Care Provider [phone] Allergies Active Allergy Reactions Criticality Noted Date [...] age to complete this topic Care Teams Inspector Fuel Hose Relationship Specialty Start Date End Date Viet Sánchez [address] [place] [address] PCP - General Medical Services 06/19/18
== END 2025-07-01 08:50 | disposition home or self-care (01) ==
LOC: HO.US 08:49
PROVIDERS: PCP Family Medicine; Visit Provider Nurse Practitioner Family
DX: R10.11 Right upper quadrant pain (principal)
CPT/HCPCS: 76705

== ENCOUNTER → 2025-07-01 08:51 | Outpatient (BNV) | payer MEDICAID, SELFPAY | PROVIDERS: PCP Family Medicine; Visit Provider Radiology Diagnostic Radiology | DX: R10.11 Right upper quadrant pain (principal) | CPT/HCPCS: 76705 ==

== ENCOUNTER 2025-07-22 09:32 | Outpatient (REF) | payer MEDICAID, SELFPAY ==
[2025-07-22 09:47] LABS: MANUAL DIFF FLAG NO
--- OUTSIDE RECORDS SUMMARY | 2025-07-22 10:40 | XMS_ITS | Encounter Summary ---
Author Organization [facility] Address [address] [facility] [address] [place] [address] Phone Care Team Providers Care Orthopaedic Nurse Name Role Phone Maranda Serna MD Primary Care Provider [phone] Encounter Details Date Type Department Care Team (Late st Contact Info) Description 05/17/2024 Office Communication [facility] [address] [place] [address] Marci Gleason ARNP [address] [address] Social History Tobacco Use Types Packs/Day Years Used Date Smoking Tobacco: Never Smokeless Tobacco: Never Alcohol Use Standard Drinks/Week Comments Yes 0 (1 standard drink = 0.6 oz pure alcohol) Intermittently Hot Amanda. Tea with [place] only if sick Comments Unknown Sex and [...] Visit [facility] [address] [facility] [address] [place] [address] Marci Gleason ARNP [address] [facility] [address] [place] [address] documented as of this encounter Visit Diagnoses Not on filedocumented in this encounter Care Teams Orthopaedic Nurse Relationship Specialty Start Date End Date Maranda Serna MD [address] [place] [address] PCP - General Family Medicine 08/24/21 documented as of this encounter
--- OUTSIDE RECORDS SUMMARY | 2025-07-22 10:40 | XMS_ITS | Encounter Summary ---
Author Organization [facility] Address [address] [facility] [address] [place] [address] Phone Care Team Providers Care Cyber Security Engineer Name Role Phone Maranda Serna MD Primary Care Provider [phone] Reason for Visit * Reason Onset Date Comments Med Refill 07/21/2025 Encounter Details Date Type Department Care Team (Late Contact Info) Description 07/21/2025 Refill [facility] [address] [facility] [address] [place] [address] Shasha Delacruz [place] [address] [facility] [address] [place] [address] Stage 3b chronic kidney disease (HCC); Proteinuria, not otherwise specified Social History Tobacco Use Types Packs/Day Years Used Date Smoking Tobacco: Never Smokeless Tobacco: Never Alcohol Use Standard Drinks/Week Comments Yes 0 (1 standard drink = 0.6 oz pure alcohol) Intermittently Hot Amanda. Tea with [place] only if sick Comments Unknown Sex and [...] Office Visit [facility] [address] [facility] [address] [place] [address] Marci Gleason ARNP [address] [facility] [address] [place] [address] documented as of this encounter Visit Diagnoses Diagnosis Stage 3b chronic kidney disease (HCC) Proteinuria, not otherwise specified documented in this encounter Care Teams Cyber Security Engineer Relationship Specialty Start Date End Date Maranda Serna MD [address] [place] [address] PCP - General Family Medicine 08/24/21 documented as of this encounter
--- OUTSIDE RECORDS SUMMARY | 2025-07-22 10:40 | XMS_ITS | Encounter Summary ---
Author Organization [facility] Address [address] [place] [address] Care Team Providers Care Cold Patcher Name Role Phone Viet Sánchez Unavailable [phone] Viet Sánchez Primary Care Provider Encounter Details Date Type Department Care Team (Late st Contact Info) Description 08/06/2018 Scanned Document [facility] Urologic Surgery [place] [address] [facility] [address] [place] [address] Provider, MD Sheryl [address] [place] [address] Social History Tobacco Use Types Packs/Day Years [...] on filedocumented in this encounter Care Teams Cold Patcher Relationship Specialty Start Date End Date Viet Sánchez PA [address] [place] [address] PCP - General 06/18/18 Viet Sánchez PA [address] [place] [address] 06/18/18 documented as of this encounter
--- OUTSIDE RECORDS SUMMARY | 2025-07-22 10:40 | XMS_ITS | Encounter Summary ---
Author Organization [facility] Address [address] [place] [address] Care Team Providers Care Laundry Marker Supervisor Name Role Phone Viet Sánchez Unavailable [phone] Viet Sánchez Primary Care Provider [phone] Encounter Details Date Type Department Care Team (Late st Contact Info) Description 07/07/2018 Scanned Document [facility] Urologic Surgery [place] [address] [facility] [address] [place] [address] Provider, Sheryl, [address] [place] [address] Social History Tobacco Use Types Packs/Day Years [...] on filedocumented in this encounter Care Teams Laundry Marker Supervisor Relationship Specialty Start Date End Date Viet Sánchez PA [address] [place] [address] PCP - General 06/18/18 Viet Sánchez PA [address] [place] [address] 06/18/18 documented as of this encounter
--- OUTSIDE RECORDS SUMMARY | 2025-07-22 10:40 | XMS_ITS | Encounter Summary ---
Author Organization [facility] Address [address] [place] [address] Care Team Providers Care Design Analyst Name Role Phone Viet Sánchez Unavailable [phone] Viet Sánchez Primary Care Provider Encounter Details Date Type Department Care Team (Late st Contact Info) Description 02/18/2020 Scanned Document [facility] [address] [place] [phone] Provider, Sheryl, [address] [place] [address] Social History Tobacco Use Types Packs/Day Years [...] on filedocumented in this encounter Care Teams Design Analyst Relationship Specialty Start Date End Date Viet Sánchez PA [address] [place] [address] PCP - General 06/18/18 Viet Sánchez PA [address] [place] [address] 06/18/18 documented as of this encounter
--- OUTSIDE RECORDS SUMMARY | 2025-07-22 10:40 | XMS_ITS | Clinical Summary ---
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 11/22/2019 Diabetic peripheral [...] 100 02/07/2020 2:00 PM EDT Temperature 36.9 C (98.5 F) 02/07/2020 12:50 PM EDT Respiratory Rate 14 02/07/2020 12:50 PM EDT [...] this topic Medical Devices Implanted Type Area Laborer [employer] Device Identifier Shelf Expiration Date Model / Serial / Lot [id number] Lens Iol 0 D +21.5 Brianda Mod L Bcnvx 13mm 6mm Posterior - [id number] Implanted:Qty: 1 on 01/27/2020 by Obinna Lorenzana MD at [facility] [place] [employer] [id number] / [id number] / Procedures Procedure Name Priority Date/Time Associated [...] 12:01 PM 01/27/2020 12:06 PM Care Teams Back Up Worker Relationship Specialty Start Date End Date Viet Sánchez PA [address] [place] [address] PCP - General 06/18/18 Viet Sánchez PA [address] [place] [address] 06/18/18
--- OUTSIDE RECORDS SUMMARY | 2025-07-22 10:40 | XMS_ITS | Encounter Summary ---
Author Organization [facility] Address [address] [place] [address] Care Team Providers Care Tax Record Clerk Name Role Phone Viet Sánchez Unavailable [phone] Viet Sánchez Primary Care Provider Encounter Details Date Type Department Care Team (Late st Contact Info) Description 11/09/2019 Prep for Surgery [facility] O[facility]THALM[facility] [address] [place] [phone] Holland Hunt MD [address] [facility] [address] [place] [address] Social History Tobacco Use Types Packs/Day Years [...] on filedocumented in this encounter Care Teams Tax Record Clerk Relationship Specialty Start Date End Date Viet Sánchez PA [address] [place] [address] PCP - General 06/18/18 Viet Sánchez PA [address] [place] [address] 06/18/18 documented as of this encounter
--- OUTSIDE RECORDS SUMMARY | 2025-07-22 10:40 | XMS_ITS | Clinical Summary ---
Author Organization [address] [facility] Address [address] [place] [address] Phone Care Team Providers Care Supervisor Paste Mixing Name Role Phone Machelle Swann MD Primary Care Provider [phone] Allergies Active Allergy Reactions Criticality Noted Date [...] 42 mcg (0.06 %) nasal spray 1 [place] by Nasal route. 09/24/20 Active omega-3 acid [...] osteoarthritis; plantar fasciitis - referred to a tool worker; waiting for an appt - check [...] hyperkalemia and cough -Currently prescribed Dapagliflozin from rehab tech -Follow up in 3-6 mo, sooner if [...] Last Assessment & Plan: - followed by [facility] - no anatomical pancreatic abnormality on MRI in Dec 2022 - continue vegan / plant-based pancreatic enzyme Right knee pain 12/16/2022 Allergic rhinitis 10/12/2022 Anemia 10/12/2022 Overview (08/25/2024): Last Assessment & Plan: - likely due to chronic diseaes - Hx iron infusion - 12/24/22 Hgb 11.7, Hematocrit 35.7 Chronic idiopathic constipation 10/12/2022 Overview (08/25/2024): Last Assessment & Plan: -Followed by [facility], last seen 08/06/22 -EGD and Colonoscopy on 12/24/21; showed Tubular Adenoma, she was recommended to repeat in 3 years. - pt has been using castor oil - continue trying fiber-rich diet and increasing physical activity as tolerated. - continue Senakot as prescribed Chronic kidney disease, stag e III (moderate) ([facility] V24, [facility] V28) 10/12/2022 Overview (08/25/2024): Last Assessment & Plan: - Hand Straightener, Dr. 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 Tsai is prescribing Dapagliflozin (Farxiga) - Previously on Lisinopril, but was disccontinued due to cough / K - Avoid nephrotoxic drugs - Renal dose meds Gastroesophageal reflux disease 10/12/2022 Overview (08/25/2024): Last Assessment & Plan: -s/p EGD 12/24/21 -followed by [facility] -continue omeprazole 40mg daily -previously tried pantoprazole and lansoprazole; pt prefers omeprazole. -previously prescribed famotidine. Max dose for her renal function is 20 mg daily. Pt does not take it regularly. Irritable bowel syndrome 10/12/2022 Overview (08/25/2024): Last Assessment & Plan: - followed by [facility] - continue current treatment plan per GI - low FODMAP diet - pt is prescribed simethicone, Sennakot, citrucel, but does not like taking it regularly Osteopenia 10/12/2022 Atrial fibrillation ([facility] V24, [facility] V28) 0 12/25/2021 Cobalamin deficiency 12/25/2021 Diabetic retinopathy ([facility] V24, [facility] V28) 12/25/2021 Nephrolithiasis 12/25/2021 Overview (08/25/2024): Last Assessment & Plan: - seen by urologist, last visit on Vitamin D deficiency 12/25/2021 Diabetic peripheral neuropat hy associated with type 2 diabetes mellitus ([facility] V24, [facility] V28) 11/22/2019 Nonrheumatic mitral valve regurgitation 11/09/20 Nonrheumatic tricuspid valve regurgitation 11/09 Obstructive sleep apnea syndrome 11/09/2019 Overview (08/25/2024): Last Assessment & Plan: - Pt does not feel comfortable with CPAP SOB (shortness of breath) 11/09/2019 Type 2 diabetes mellitus wit hout complication ([facility] V24, [facility] V28) 11/09/2019 Arthritis 03/03/2019 Chronic cough 01/26/2019 Moderate persistent asthma with acute exacerbati on 01/26/2019 Pulmonary hypertension ([facility] V24, [facility] V28 ) 12/31/2018 Pulmonary arterial hypertension ([facility] V24, [facility] V28) 11/19/2018 Ulcer of foot ([facility] V24, [facility] V28) 011 Encounters Date Type Department Care Team Description 05/19/2025 2:15 PM EDT Office Visit Orthopedic Surgery - [address] [address] Damien Centeno, VENESSA Controlled type 2 diabetes mellitus with diabetic polyneuropathy, without long-term current use of insulin ([facility] V24, [facility] V28) (Primary Dx); Capsulitis of metatarsophalangeal (MTP) [...] Upcoming Encounters Date Type Department Care Team ([facility] st Contact Info) Description 08/18/2025 3:00 PM EDT Office Visit Orthopedic Surgery - [place] [address] [address] Damien Centeno, VENESSA [address] [address] Health Maintenance Due Date Last Done Comments [...] (12/30/2023) Pathologist [facility] Annual BMP Blood Test Abstracted [facility] Provider HEALTH MAINTENANCE Final Result * Hemoglobin A1c (12/30/2023) [facility] Hemoglobin A1C 0.0 % Comment:no interpretation Blood Venous blood specimen / Unknown Result [facility] Provider LAB BLOOD ORDERABLES Machelle l Result * Lipid panel (12/30/2023) [facility] Triglycerides 0 mg/dL Comment:no interpretation Cholesterol 0 mg/dL Comment:no interpretation HDL 0 mg/dL Comment:no interpretation LDL Cholesterol 0 mg/dL Comment:no interpretation Blood Venous blood specimen / Unknown Result [facility] Provider LAB BLOOD ORDERABLES Machelle l Result * Urine Albumin Creatinine Ratio (07/24/2022) [facility] Urine Albumin Creatinine Ratio Abstracted Result [facility] Provider HEALTH MAINTENANCE Final Result from Last 3 Months or Most Recently Relevant to Health Maintenance Insurance MEDICAID - [place] Care Teams Supervisor Paste Mixing Relationship Specialty Start Date End Date Machelle Swann MD [address] [place] [address] [place] [address] PCP - General 10/15/12
--- OUTSIDE RECORDS SUMMARY | 2025-07-22 10:40 | XMS_ITS | Encounter Summary ---
Author Organization [facility] Address [address] [place] [address] Care Team Providers Care Touch Up Worker Name Role Phone Viet Sánchez Unavailable [phone] Viet Sánchez Primary Care Provider Encounter Details Date Type Department Care Team (Late st Contact Info) Description 05/22/2020 Scanned Document [facility] [address] [address] Deja Rico, [place] [address] Social History Tobacco Use Types Packs/Day Years [...] on filedocumented in this encounter Care Teams Touch Up Worker Relationship Specialty Start Date End Date Viet Sánchez PA [address] [place] [address] PCP - General 06/18/18 Viet Sánchez PA [address] [place] [address] 06/18/18 documented as of this encounter
--- OUTSIDE RECORDS SUMMARY | 2025-07-22 10:40 | XMS_ITS | Clinical Summary ---
Author Organization [facility] Address [address] [place] [phone] Phone Care Team Providers Care Sugar Drier Name Role Phone Maranda Serna MD Primary Care Provider [phone] Allergies Active Allergy Reactions Criticality Noted Date [...] day in the morning 90 tablet 3 07/21/20 25 026 Active Dapagliflozin Propanediol 5 MG tabletIndicatio ns:Stage 3b chronic kidney disease (HCC),Proteinur ia, not otherwise specified Take 5 mg by mouth 1 (one) time each day in the morning 90 tablet 3 01/26/20 25 025 Discontin ued(Reord er (does not appear on AVS)) Active Problems Problem Noted Date Diagnosed Date [...] 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 - Will obtain lab work. Also curious to see radiographic imaging of the hands, feets, SI and lumbar spine. Will obtain interval history from senior java engineer Karlee Le. - RTC in 4 months - she is to continue with mtx 4 tabs qweekly and folic acid Ulcer of foot 07/19/2011 07/22/2022 Encounters Date Type Department Care Team Description 07/21/2025 [facility]ill [facility] [address] [phone] Shasha Delacruz MA Stage 3b chronic kidney disease (HCC); Proteinuria, not otherwise specified 06/10/2025 Orders Only [facility]. [address] [id number] Marci Gleason ARNP Stage 3b chronic kidney disease (HCC); Anemia in chronic kidney disease; Proteinuria, not otherwise specified from Last 3 Months Immunizations Immunization Administration [...] pure alcohol) Intermittently Hot Amanda. Tea with [place] only if sick Comments Unknown Sex and [...] Office Visit [facility] [address] [phone] Marci Gleason ARNP [address] [phone] Health Maintenance Due Date Last Done Comments Breast Cancer Screening 1960 Colorectal Cancer Screening: Annual FOBT 2009 Colorectal Cancer Screening: Colonoscopy 2009 Colorectal Cancer Screening: Sigmoidoscopy 2009 Diabetes: Ophthalmology Exam 08/24/2021 Diabetes: Pedal Pulse Checked 08/24/2021 Diabetes: Sensory Foot Exam 08/24/2021 Diabetes: Visual Foot Exam 08/24/2021 Influenza Vaccine (#1) 2025 4, 09/23/2023, 09/24/2021, Additional history exists Diabetes: Hemoglobin A1C 10/11/20252 025, 04/12/2025, 01/17/2025, Additional history exists Hepatitis B Vaccine Aged Out 09/23/2023, 12/16/2022, 07/08/2022 No longer eligible based on patient's age to complete this topic Pneumococcal Vaccine: 50+ Years Completed 09/23/2023, 01/01/2021 Pneumococcal Vaccine: Peds (0 to 5 Years) and At-Risk Patients (6 to 49 Years) Discontinued 09/23/2023, 01/01/2021 Insurance Medicaid OR Medicaid OR Care Teams Sugar Drier Relationship Specialty Start Date End Date Maranda Serna MD [address] [place] [id number] PCP - General Family Medicine 08/24/21
--- OUTSIDE RECORDS SUMMARY | 2025-07-22 10:40 | XMS_ITS | Clinical Summary ---
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 - Will obtain lab work. Also curious to see radiographic imaging of the hands, feets, SI and lumbar spine. Will obtain interval history from home energy rater Karlee Le. - RTC in 4 months [...] COVID-19 Vaccine (1 - 2023-2 5 season) 2025 Influenza Vaccine (#1) 2025 HIV Screening Completed [...] polyneuropathy, with long-term current use of insulin ([facility]) POCT HEMOGLOBIN, A1C Routine 02/09/2019 8:10 AM EDT Type 2 diabetes mellitus with diabetic polyneuropathy, with long-term current use of insulin ([facility]) HIV COMBO ANTIGEN/ANTIBODY Routine 10/06/2018 3:59 PM EST Polyarthralgia from Last 3 Months or Most Recently Relevant to Health Maintenance Results * Microalbumin/creatinine ratio (02/09/2019 10:15 AM EDT) Microalbumin/Creat Ratio 20 2 - 20 mg/g Creat 02/09/2019 11:55 AM EDT [facility] Creatinine, Urine, Random 101 mg/dL 02/09/2019 11:55 AM EDT [facility] Comment: The laboratory does not have established reference ranges for this test. Interpretation of results is at the discretion of the ordering physician. Urine specimen (specimen) Urine specimen obtained by clean catch procedure / Unknown Non-blood Collection / Unknown 02/09/2019 10:15 AM EDT 02/09/2019 10:15 AM EDT us Keke Katz APRN LAB URINE ORDERABLES Final Res ult [facility] [address] [place] [address], [place] [phone] * POCT hemoglobin, A1c (02/09/2019 8:10 AM EDT) POCT Hemoglobin A1C 9.2 4.4 - 6.4 % Blood specimen (specimen) 02/09/2019 8:10 AM EDT us Keke Katz FISHING [employer] POCT ORDERABLES NO CHARGE Machelle l Result * HIV combo antigen/antibody (10/06/2018 3:59 PM EST) HIV Combo AB/AG Negative Negative 10/06/2018 6:02 PM EST [facility] Blood specimen (specimen) Venous blood specimen / Unknown Venipuncture / Unknown 10/06/2018 3:59 PM EST 10/06/2018 3:59 PM EST Narrative [facility] - 10/06/2018 6:02 PM EST This test is a 4th generation HIV Antigen-Antibody Combination assay, using a chemiluminescent microparticle immunoassay, for the simultaneous qualitative detection of human immuno- deficiency virus (HIV) p24 antigen and antibodies to HIV type 1 (HIV-1) and/or HIV type 2 (HIV-2) in human serum or plasma. The [employer]airer HIV Ag/Ab Combo assay is intended to [...] ORDERABLES NO ST AT Final Result [facility] [address] [place] [address], [place] [phone] from Last 3 Months or Most Recently Relevant to Health Maintenance Insurance MEDICAID HUSKY D Care Teams Pipefitter Helper Relationship Specialty Start Date End Date Viet Sánchez PA [address] [place] [address] PCP - General Family Medicine 07/22/18
--- OUTSIDE RECORDS SUMMARY | 2025-07-22 10:40 | XMS_ITS | Clinical Summary ---
Author Organization [facility] Address [address] [place] [address] Care Team Providers Care Freelance Digital Project Manager Name Role Phone ChapispriscillaViet Primary Care Provider [phone] Allergies Active Allergy Reactions Criticality Noted Date [...] age to complete this topic Care Teams Freelance Digital Project Manager Relationship Specialty Start Date End Date Viet Sánchez [address] [place] [address] PCP - General Medical Services 06/19/18
--- OUTSIDE RECORDS SUMMARY | 2025-07-22 10:40 | XMS_ITS | Patient Health Record ---
Author Organization [facility] Address [address] [facility] [id number] [address] Care Team Providers Care Diesel Engine Tester Name Role Phone Larisa Saldana Primary [...] diabetes mellitus without complications (E11.9) Active confirmed 630609593 Problem Type 2 diabetes mellitus with diabetic polyneuropathy (E11.42) Active confirmed 56490484 Problem Other chronic pain (G89.29) Active confirmed 44979840 Problem Age-related nuclear cataract, bilateral (H25.13) Active confirmed Nuclear senile cataract (238391856) Problem Diabetes (E11.9) Active confirmed Type II diabetes mellitus without complication (555147652) Problem Dyslipidemia (E78.5) Active confirmed 261266157 Problem HTN (hypertension) (I10) Active confirmed Hypertension (39334137) Problem Arthritis (M19.90) Active confirmed 372 3001 Problem senior living current use of insulin (Z79.4) Active confirmed 135482963 Problem Controlled diabetes mellitus with diabetic neuropathy (E11.40) Active confirmed Diabetic peripheral neuropathy associated with type 2 diabetes mellitus (7367442580649) Problem Type 2 diabetes mellitus with mild nonproliferative diabetic retinopathy without macular edema, bilateral (E11.3293) Active confirmed Mild nonproliferative retinopathy due to type 2 diabetes mellitus (734897830435363) Problem Left retinal detachment (H33.22) Active confirmed Serous r etinal detachment (75141550) Problem Menopausal and postmenopausal disorder (N95.9) Active confirmed 156961966 PLAN OF TREATMENT Pending Test Test Name [...] End Date MACKENZIE Hughes [address] [place] [address] [id number] Ese Mendoza Self - patient is the insured MEDICAID DENTAL [address] [place] [address] [id number] Ese Mendoza Self - patient is the [...]
--- OUTSIDE RECORDS SUMMARY | 2025-07-22 10:40 | XMS_ITS | Encounter Summary ---
Author Organization [facility] Address [address] [place] [address] Care Team Providers Care Extrusion Supervisor Name Role Phone Viet Sánchez Unavailable [phone] Viet Sánchez Primary Care Provider Encounter Details Date Type Department Care Team (Late st Contact Info) Description 02/02/2020 Prep for Surgery [facility] OPHTHALMOLOGY [address] [place] [address] Holland Hunt MD [address] [place] [address] [address] [place] [address] Social History Tobacco Use Types Packs/Day Years [...] on filedocumented in this encounter Care Teams Extrusion Supervisor Relationship Specialty Start Date End Date Viet Sánchez PA [address] [place] [address] PCP - General 06/18/18 Viet Sánchez PA [address] [place] [address] 06/18/18 documented as of this encounter
[2025-07-22 11:00] LABS: Hematocrit 37.7 % (37.0-47.0); Hemoglobin 11.5 g/dl (12.0-16.0); Imm Gran Abs Auto 0.01 X10*3/uL (0.00-0.03); Imm Gran Pct Auto 0.1 % (0.0-0.4); Lymphocytes Absolute Auto 2.1 X10*3/uL (1.2-4.9); Mean Corpuscular HGB Conc 30.5 g/dl (31.0-35.0); Mean Corpuscular Hemoglobin 28.8 pg (27.0-33.0); Mean Corpuscular Volume 94.3 fL (80.0-98.0); NRBC Abs Auto 0.000 X10*3/uL (0.0-0.012); NRBC Pct Auto 0.0 /100WBC (0.0-0.2); Platelet Count 266 X10*3/uL (160-400); Red Blood Count 4.00 X10*6/uL (4.20-5.50); White Blood Count 7.2 X10*3/uL (4.8-10.8)
[2025-07-22 12:08] LABS: Cholesterol 140 mg/dL (<200); HDL Cholesterol 55 mg/dL (>40); Triglycerides 81 mg/dL (<150)
== END 2025-07-22 09:33 | disposition home or self-care (01) ==
LOC: HO.LAB 09:32
PROVIDERS: Nurse Practitioner Family; PCP Family Medicine
DX: Z12.11 Encounter for screening for malignant neoplasm of colon (principal); K21.9 Gastro-esophageal reflux disease without esophagitis; K86.89 Other specified diseases of pancreas; K58.1 Irritable bowel syndrome with constipation; I25.10 Atherosclerotic heart disease of native coronary artery without angina pectoris; J45.909 Unspecified asthma, uncomplicated; R91.1 Solitary pulmonary nodule; R06.83 Snoring; R40.0 Somnolence; R00.0 Tachycardia, unspecified; Z91.09 Other allergy status, other than to drugs and biological substances; Z79.82 Long term (current) use of aspirin; Z79.899 Other long term (current) drug therapy
CPT/HCPCS: 36415; 80061; 82785; 84443; 85025; 99212

== ENCOUNTER 2025-07-22 10:41 | Outpatient (AMB) | payer MEDICAID, SELFPAY ==
--- NOTE | 2025-07-22 10:48 | A.OFFVIS_ITS ---
Vital Signs 07/22/25 10:52 Height 5 ft 2 in Weight 201 lb 6 oz BMI 36.8 BP 138/64 Blood Pressure Location Lt brachial Position Sitting Pulse 94 Pulse Source Pulse Oximeter Pulse Oximetry (%) 96 Oxygen Delivery Method Room Air Intake Visit Reasons: discuss colo/egd urgent us Intake Note: ESTABLISHED PATIENT for GERD, IBS mgmt. Discuss egd + colo urgent. Chief Complaint; Pt denies any new GI changes or concerns at this time. Pt states that her sx have remained static and have not improved or become worse. Pt would also like to discuss GLP 1 therapy and whether this is OK based on GI hx. Marketing And Development Coordinator Required: No Accompanied by: Self / Same As Patient Allergies Pork/Porcine Containing Products (Pork/Porcine Product Derivatives) Allergy (Mild, Verified 07/22/25 15:11) SORES /ITCHING Seasonal Allergies Allergy (Mild, Verified 07/22/25 15:11) Itching nickel Adverse Reaction (Verified 07/22/25 15:11) Swelling and irritation Medication List - Last Reconciled 07/22/25 by AIDE Timmons- acetaminophen (Tylenol Extra Strength) 500 mg PO Q6H PRN albuterol sulfate 90 mcg/actuation 2 puffs inhalation Q4-6H PRN ammonium lactate 12% 1 appl topical DAILY ascorbic acid (vitamin C) 1,000 mg PO DAILY aspirin (St Vladimir Aspirin) 81 mg PO DAILY atorvastatin 80 mg PO DAILY bisacodyl (Dulcolax (bisacodyl)) 5 mg PO BEDTIME blood pressure monitor As directed blood sugar diagnostic (FreeStyle Lite Strips) As directed carvedilol 6.25 mg See Protocol PO BID clopidogrel 75 mg PO DAILY dapagliflozin propanediol (Farxiga) 5 mg PO QAM digestive enzymes 1 cap PO BID diphenhydramine-acetaminophen 25-500 mg (Tylenol PM Extra Strength) 1 tab PO BEDTIME PRN ferrous sulfate 325 mg PO Q OTHER DAY fesoterodine ER (Toviaz) 8 mg PO DAILY fluticasone furoate-vilanterol 100-25 mcg/dose (Breo Ellipta) 1 inh inhalation DAILY fluticasone propionate 50 mcg/actuation 1 spray intranasal DAILY PRN incontinence pad, liner, disp As directed: change pads Q2-3 hours/PRN insulin degludec (Tresiba FlexTouch U-100 insulin) 35 units subcut BEDTIME PRN Held on 11/29/24. Instructions: Resume on 12/01/24. insulin lispro 45 units subcut USEASDIRECTD isosorbide mononitrate ER 30 mg PO DAILY lancets (OneTouch Delica Plus Lancet) As directed levalbuterol HCl 1.25 mg (3 mL) inhalation Q4H PRN omega 3-flv-pkd-fish oil 1,000 (120-180) mg (Fish Oil) 1 cap PO DAILY pantoprazole 40 mg PO DAILY pen needle, diabetic (Easy Touch) As directed prednisolone acetate 1% (Pred Forte) 1 drp ophthalmic-Left QID simethicone (Gas Relief (simethicone)) 125 mg PO BID-TID PRN vitamin B complex 1 tab PO DAILY HPI HPI discuss colo/egd urgent us: Details: LAST VISIT: GERD (gastroesophageal reflux disease) Pancreatic insufficiency IBS (irritable bowel syndrome) Postprandial abdominal bloating Diarrhea Plan Patient will be sent for ultrasound to see if there is hernia in the right upper quadrant. Patient has significant tenderness to right upper quadrant around her surgical scar. Questioning adhesions versus ventral hernia. Referral to General surgery. Patient will try to take Dulcolax daily or every other day. Increase fluid intake and activity to promote better bowel motility. Continue omeprazole daily. Avoid dietary triggers in late night snacking. Staying upright her minimal 3 hours after meals discussed with patient. Patient will be seen in the office in 5 weeks to discuss going for colonoscopy and endoscopy. Message sent to Surgical schedulers to book procedure patient. Patient is agreeable to current plan of care and verbalizes understanding of instructions. She was given the opportunity to ask questions and all questions answered. ? Thank you for allowing me to participate in her care Orders US abdomen limited Today R10.11 Referrals General Surgery Referral K42.9 New bisacodyl (Dulcolax (bisacodyl)) 5 mg PO BEDTIME 30 tabs 4RF TODAY'S VISIT Patient is here today for follow-up and to discuss going for colonoscopy and upper endoscopy. Patient denies having any issues with anesthesia in the past. No history of sleep apnea. Has appointment with General surgery to discuss incisional hernia. Patient is on low-dose aspirin and Plavix. Cardiology cleared patient and we can hold Plavix for 5 days, however patient should remain on aspirin. Denies any cardiac or respiratory symptoms. Patient reports that insurance no longer covers her omeprazole. She has PCP sent her script for pantoprazole and patient has been taking it. Patient reports that she has been feeling well. Occasional epigastric pain. Patient will be sent for upper endoscopy as well. History of tubular adenoma in the past. Patient denies melena, hematochezia, unintentional weight loss or ribbon like stools. Patient reports that she is moving her bowels, however she has to take laxative in order to have a bowel movement. Patient's PCP sent her script for Mounjaro, however she did not start taking it yet. She does have a history of pancreatic insufficiency. We will check lipase and pancreatic elastase PFSH Medical History Pancreatic insufficiency Pancreatic insufficiency Tubular adenoma CKD (chronic kidney disease) Anemia GERD (gastroesophageal reflux disease) Renal cyst Bladder prolapse, female, acquired Hx of gastric ulcer IBS (irritable bowel syndrome) Kidney stones High cholesterol Diabetes Surgical History Hx of endoscopy Hx of colonoscopy History of partial hysterectomy Hx of breast reduction, elective Hx of cholecystectomy Family History Father Heart attack DM2 (diabetes mellitus, type 2) Mother DM2 (diabetes mellitus, type 2) COPD (chronic obstructive pulmonary disease) Other No pertinent family history Social History Household Members: Family Housing: House Do you presently have visiting nurse or other home services: No Unable to assess alcohol history related to: Unknown Alcohol intake: never Patient Tobacco Use Status: Never used Tobacco Second Hand Smoke Exposure: No service: No Review of Systems Const Denies weight gain and Denies weight loss ENT Reports no additional complaints, Denies dysphagia and Denies odynophagia Card Reports no additional complaints Resp Reports no additional complaints GI Reports abdominal pain, Denies belching, Denies melena, Reports bloating, Denies change in bowel habits, Reports constipation, Denies dysphagia, Denies excessive flatus, Denies dyspepsia, Reports heartburn, Denies diarrhea, Reports loose stools, Denies nausea, Denies odynophagia and Denies vomiting Reports no additional complaints Musc Reports no additional complaints Neuro Reports no additional complaints Psych Reports no additional complaints Endo Reports no additional complaints Physical Exam Vital Signs: Last Vital Signs Pulse 94 07/22/25 10:52 BP 138/64 07/22/25 10:52 Pulse Ox 96 07/22/25 10:52 Oxygen Delivery Method Room Air 07/22/25 10:52 BMI result Body Mass Index 36.8 Const General: healthy appearing and no acute distress Nutritional Appearance: obese Orientation/consciousness: patient oriented x3 Resp Effort & Inspection: normal respiratory effort, able to speak in complete sentences, no tracheal deviation and symmetric chest movement Auscultation: clear to auscultation bilaterally Cardio Rate: regular rate Heart sounds: S1 normal heart sound present and S2 normal heart sound present GI Inspection: No distended, Yes incision (Old surgical scar to right upper quadrant), Yes obesity and Yes other (Tenderness around surgical scar concern for adhesions versus hernia) Palpation (GI): Soft to palpation, not firm, nontender and No hepatosplenomegaly present Auscultation: normal bowel sounds General: Yes no CVA tenderness Back/Spine/Pelvis Back: no CVA tenderness Skin General skin exam: elasticity normal, turgor normal and dry skin Neuro General: patient oriented x3 Psych Appearance: grossly normal Mental Status: mental status grossly normal Assessment & Plan Assessment & Plan (1) GERD (gastroesophageal reflux disease): Code(s): K21.9 - Gastro-esophageal reflux disease without esophagitis Category: Medical Qualifiers: Esophagitis presence: esophagitis presence not specified Qualified Code(s): K21.9 - Gastro-esophageal reflux disease without esophagitis (2) Pancreatic insufficiency: Code(s): K86.89 - Other specified diseases of pancreas Category: Medical (3) IBS (irritable bowel syndrome): Code(s): K58.9 - Irritable bowel syndrome, unspecified Category: Medical Qualifiers: Irritable bowel syndrome type: with constipation Qualified Code(s): K58.1 - Irritable bowel syndrome with constipation (4) Postprandial abdominal bloating: Code(s): R14.0 - Abdominal distension (gaseous) (5) Screen for colon cancer: Code(s): Z12.11 - Encounter for screening for malignant neoplasm of colon Plan History of gastric ulcer back in 2014. Patient will be sent for upper endoscopy. She is currently taking pantoprazole and reports that it working for the most part. Patient denies any dyspepsia, dysphagia or odynophagia. Will check lipase, liver panel and pancreatic elastase. History of pancreatic insufficiency. PCP send patient script for Yasmine. Patient will have to be monitor closely. Patient is also due to go for colonoscopy. What to expect before during and after procedure discussed with patient. Stressed the impo rtance of good bowel prep and clear liquid diet day before procedure. I will see patient after the procedure, sooner on as needed basis. Patient is agreeable to this plan and verbalizes understanding of instructions. She was given the opportunity to ask questions and all questions answered. Thank you for allowing me to participate in her care Orders: Orders Lipase Today R10.9 - Unspecified abdominal pain Liver Panel Today R74.01 - Elevation of levels of liver transaminase levels Pancreatic Elastase-1 Today R10.9 - Unspecified abdominal pain Medications: New bisacodyl (Dulcolax (bisacodyl)) Start taking 2 tablet every night 7 days before the procedure and 1 day before procedure take 2 tablets at noon time followed by MiraLax prep 10 mg (2 x 5 mg) PO BEDTIME 14 tabs 0RF Z12.11 - Encounter for screening for malignant neoplasm of colon polyethylene glycol 3350 (Miralax) As directed by gastroenterology department at [facility] 238 grams PO ONCE 238 grams 0RF Z12.11 - Encounter for screening for malignant neoplasm of colon Coding Level of Care Code Est Pt Level 4 (92171) Complex EM visit Add On G2211 Diagnoses Gastroesophageal reflux disease, unspecified whether esophagitis present K21.9 Esophagitis presence: esophagitis presence not specified Pancreatic insufficiency K86.89 Irritable bowel syndrome with constipation K58.1 Irritable bowel syndrome type: with constipation Postprandial abdominal bloating R14.0 Screen for colon cancer Z12.11 Time Spent (min) 40 Comment 25 minutes spent with patient and additional 15 minutes spent reviewing her records
[2025-07-22 10:52] VITALS: BP 138/64; PULSE 94; O2SAT 96; BMI 36.8
== END 2025-07-22 11:15 | disposition home or self-care (01) ==
LOC: HO.HGI 10:42
PROVIDERS: PCP Family Medicine; Visit Provider Nurse Practitioner Family
DX: Z01.818 Encounter for other preprocedural examination (principal); Z12.11 Encounter for screening for malignant neoplasm of colon; K86.89 Other specified diseases of pancreas; K58.1 Irritable bowel syndrome with constipation
CPT/HCPCS: 99214

== ENCOUNTER 2025-07-22 15:05 | Outpatient (AMB) | payer MEDICAID, SELFPAY ==
--- NOTE | 2025-07-22 15:06 | MHC.OFFVIS ---
Vital Signs 07/22/25 15:07 Height 5 ft 2 in Weight 202 lb 2 oz BMI 37.0 BP 120/64 Blood Pressure Location Rt brachial Position Sitting Pulse 82 Pulse Source Pulse Oximeter Pulse Oximetry (%) 97 Oxygen Delivery Method Room Air Intake Visit Reasons: abnormal CT Allergies Pork/Porcine Containing Products (Pork/Porcine Product Derivatives) Allergy (Mild, Verified 07/22/25 15:11) SORES /ITCHING Seasonal Allergies Allergy (Mild, Verified 07/22/25 15:11) Itching nickel Adverse Reaction (Verified 07/22/25 15:11) Swelling and irritation HPI HPI abnormal CT: Details: Ese is a pleasant 64 year old female, former minimal smoker, with underlying asthma, DMII, CKDIII, HTN, CAD s/p cardiac cath and HLD. She was initially referred by PCP for pulmonary evaluation for chronic cough, that has been unchanged over the last 10 years. She reports cough is mostly dry occasionally with clear sputum and associated dyspnea on exertion, most noticeable if she is rushing. She denies wheezing or chest tightness. She was previously on Breo however did not feel any benefit, using albuterol BID with good effect. She recently switched from Omeprazole to Pantoprazole for reflux, unable to assess effectiveness as she just started a week ago. The patient has been diagnosed with sleep apnea and previously used a CPAP machine, which she found intolerable. She experiences some symptoms of sleep apnea, such as snoring and daytime tiredness, and is interested in further evaluation. She denies any visits to urgent care or hospitalizations related to respiratory distress since the last visit. [facility] Medical History Pancreatic insufficiency Pancreatic insufficiency Tubular adenoma CKD (chronic kidney disease) Anemia GERD (gastroesophageal reflux disease) Renal cyst Bladder prolapse, female, acquired Hx of gastric ulcer IBS (irritable bowel syndrome) Kidney stones High cholesterol Diabetes Surgical History Hx of endoscopy Hx of colonoscopy History of partial hysterectomy Hx of breast reduction, elective Hx of cholecystectomy Family History Father Heart attack DM2 (diabetes mellitus, type 2) Mother DM2 (diabetes mellitus, type 2) COPD (chronic obstructive pulmonary disease) Other No pertinent family history Social History Household Members: Family Housing: House Do you presently have visiting nurse or other home services: No Unable to assess alcohol history related to: Unknown Alcohol intake: never Patient Tobacco Use Status: Never used Tobacco Second Hand Smoke Exposure: No service: No Review of Systems Const Denies chills, Denies excessive sweating, Denies fever(s), Denies headache(s) and Denies night sweats Eyes Denies dry eyes, Denies irritation and Denies itchy eyes ENT Reports Normal hearing present, Denies headache(s), Denies nasal congestion, Denies nasal discharge and Denies sore throat Card Denies chest pain, Denies chest pain at rest, Denies chest pain with activity, Denies claudication, Denies leg edema, Reports dyspnea on exertion, Denies orthopnea and Denies paroxysmal nocturnal dyspnea Resp Denies change in phlegm color, Denies chest congestion, Reports cough, Denies excessive phlegm production, Denies pain on inspiration, Denies pain with cough, Reports dyspnea on exertion, Denies stridor and Denies wheezing Musc Denies myalgias Neuro Reports Normal hearing present and Denies headache(s) Endo Denies excessive sweating Ethan/Lymph Denies lymphadenopathy Aller/Immun Denies itchy eyes, Denies seasonal rhinorrhea and Denies wheezing Physical Exam Vital Signs: Last Vital Signs Pulse 82 07/22/25 15:07 BP 120/64 07/22/25 15:07 Pulse Ox 97 07/22/25 15:07 Oxygen Delivery Method Room Air 07/22/25 15:07 BMI result Body Mass Index 37.0 Const General: cooperative, healthy appearing, comfortable, no acute distress, well developed and alert Nutritional Appearance: obese Orientation/consciousness: patient oriented x3 Limitations: no limitations HEENT Head: Yes normal to inspection, Yes normocephalic and Yes atraumatic Ears: hearing grossly normal bilaterally and external ears normal Eyes General: appearance normal, both eyes and all related structures Eyelids: Yes eyelids normal Sclerae: sclerae normal EOM: EOMs intact bilaterally Neck Neck: Yes normal visual inspection and Yes no lymphadenopathy Lymphatic: no lymphadenopathy noted Chest Chest palpation & inspection: normal inspection of the chest Resp Effort & Inspection: normal respiratory effort, able to speak in complete sentences, no audible wheezes, no cough, no stridor, not tachypneic, no tripod positioning and no use of accessory muscles Auscultation: clear to auscultation bilaterally Cardio Jugular venous distension: no JVD Rate: regular rate Rhythm: regular rhythm Skin Other: warm, dry General skin exam: no rashes or lesions noted Neuro General: patient oriented x3 Cranial nerves: Yes Normal hearing present Cognition (Neuro): normal cognition Gait exam (Neuro): Normal gait present Extrem General: Yes normal to inspection, Yes capillary refill normal, Yes no clubbing, cyanosis or edema and Yes no pedal edema Psych Appearance: grossly normal and well kempt Speech and movement: Normal speech and movement present and Clear speech present Affect: normal affect Attitude: cooperative Thought process: Normal thought process present Thought content: Normal thought content present Insight: Good insight present (Psych) Judgement: Good judgement present (Psych) Results Reviewed Results Reviewed: 11/30/2024- Cardiac catheterization showed [id number] distal LAD disease with severe distal stenosis and severe OM1 stenosis, small caliber vessels with severe disease and not amenable to stenting therefore was started on medical management with dual antiplatelet therapy. 12/01/2024- echo showed LVEF at 57%, with LV wall thickness in the pattern of concentric hypertrophy, central venous pressure mildly elevated, with no obvious wall motion abnormalities. Assessment & Plan Assessment & Plan (1) Asthma: Code(s): J45.909 - Unspecified asthma, uncomplicated Category: Medical (2) Environmental allergies: Code(s): Z91.09 - Other allergy status, other than to drugs and biological substances Category: Medical (3) Pulmonary nodule: Code(s): R91.1 - Solitary pulmonary nodule Category: Medical Plan Patient previously did not find benefit from Breo, will trial Advair HFA in addition to albuterol MDI PRN. She is aware to call if symptoms do not improve. Reviewed PFT which revealed moderate restrictive ventilatory defect with no bronchodilator response. Decreased expiratory reserve volume suggests extrathoracic restriction likely secondary to abdominal obesity. Combination of restrictive ventilatory defect with decreased diffusion capacity suggests underlying pulmonary parenchymal disease. Prior chest CT did not reveal emphysema only LLL pulmonary nodule which will be rescanned 02/2026 to assess stability. There may be a cardiac component contributing to dyspnea, currently under the care of cardiology. Encouraged patient to continue to follow with GI regarding reflux control. Further evaluation of sleep apnea is recommended due to persistent symptoms suggestive of RANJAN, will send for home sleep study. All questions were answered and patient is agreement of plan. Will follow-up in 6-8 weeks or sooner if needed. Orders: Orders RT home sleep study Today R06.83 - Snoring, R40.0 - Somnolence Medications: New fluticasone propion-salmeterol 230-21 mcg/actuation (Advair HFA) 2 puffs inhalation Q12H 12 grams 3RF Discontinued fluticasone furoate-vilanterol 100-25 mcg/dose (Breo Ellipta) Discontinued Reason: Patient Completed Course 1 inh inhalation DAILY 60 ea 2RF Coding Level of Care Code Est Pt Level 4 (87938) Diagnoses Asthma J45.909 Environmental allergies Z91.09 Pulmonary nodule R91.1
[2025-07-22 15:07] VITALS: BP 120/64; PULSE 82; O2SAT 97; BMI 37.0
--- OUTSIDE RECORDS SUMMARY | 2025-07-22 17:35 | XMS_ITS | Encounter Summary ---
Author Organization [employer] Address [address] [facility] [address] [place] [address] Care Team Providers Care Hydrographic Engineer Name Role Phone Maranda Serna MD Primary Care Provider [phone] Reason for Visit * Reason Onset Date Comments Appointment Request 05/28/2024 Encounter Details Date Type Department Care Team ([facility] st Contact Info) Description 05/28/2024 Telephone [facility] MEDICINE [address] [place], [place] [phone] Maranda Serna MD [address] [place], [place] [phone] Appointment Request Social History Tobacco Use Types [...] documented as of this encounter Care Teams Hydrographic Engineer Relationship Specialty Start Date End Date Maranda Serna MD [address] [place] [id number] PCP - General Family Medicine 08/01/21 documented as of this encounter
--- OUTSIDE RECORDS SUMMARY | 2025-07-22 17:35 | XMS_ITS | Encounter Summary ---
Author Organization [employer] Address [address] [facility] [address] [place] [address] Care Team Providers Care Lawn Care Specialist Name Role Phone Maranda Serna MD Primary Care Provider [phone] Encounter Details Date Type Department Care Team (Latest Contact Info) Description 05/27/2025 Results Follow-Up [facility] MEDICINE [address] [place], [place] [phone] Maranda Serna MD [address] [place] [address] BI Mammogram Screening Tomosynthesis Bilateral, US Thyroid Social History Tobacco Use Types Packs/Day Years [...] as of this encounter Miscellaneous Notes * Result Encounter Note - Maranda Serna MD - 07/20/2025 8:42 AM EDT FYI - BI-RADS 2. documented in this encounter Plan of Treatment Not on file documented as of this encounter Visit Diagnoses Not on filedocumented in this encounter Additional Health Concerns Assessment Noted Time PHQ-9 Depression Total Score: 0 01/18/20 25 1:12 PM EDT documented as of this encounter Care Teams Lawn Care Specialist Relationship Specialty Start Date End Date Maranda Serna MD [address] [place] [id number] PCP - General Family Medicine 08/01/21 documented as of this encounter
--- OUTSIDE RECORDS SUMMARY | 2025-07-22 17:35 | XMS_ITS | Encounter Summary ---
Author Organization [employer] Address [address] [place] [address] [address] [place] [address] Care Team Providers Care Travel Guide Name Role Phone Maranda Serna MD Primary Care Provider [phone] Reason for Referral * Imaging (Routine) - Closed Specialty Diagnoses / Procedures Referred By Rodney hussein Referred To Contact Radiology Diagnoses Pulmonary nodule Procedures CT Chest w/o Contrast Maranda Serna MD [address] [place] [address] Phone: tel: fax: [address] Phone: tel: fax: Referral ID Status Reason Start Date Expiration Date Visits Re quested Visits Authorized [id number] Closed 02/07/2025 02/07/2026 1 1 Encounter Details Date Type Department Care Team (Late st Contact Info) Description 02/07/2025 Orders Only [facility]INE [address] [place], [place] [phone] Maranda Serna MD [address] [place], [place] [phone] Pulmonary nodule (Primary Dx) Social History Tobacco [...] 5 AM EDT Narrative 02/25/2025 11:[address] [address] [address] Scan Report Signed Patient: Ese Mendoza MR#: [id number] 8 : 1960 Acct:[id number] Age/Sex: 64 / F ADM Date: 02/25/25 Loc: .CT Attending Dr: Maranda Serna MD Ordering Physician: Maranda Serna MD Date of Service: 02/25/25 Procedure(s): CT chest wo IV con Accession Number(s): [id number] cc: Maranda Serna MD Report Number: [id number]: Total DLP = 183.00 mGy-cm EXAMINATION: CT [...] reconstruction technique DLP: 183 mGy centimeter. FINDINGS: PCA ASSISTED LIVING: Large body habitus. Vascular clips right upper [...] 02/25/25 1155 DD/ 1115 TD/TT: 02/25/25 1124 Certified Fire Investigator: Procedure Note Donotuseinterpreter, Image - 02/25/[address] [place] [address] [address] Scan Report Signed Patient: Ese MendozaMR#: [id number] 8 : 1960Acct:[id number] Age/Sex: 64 / FADM Date: 02/25/25 Loc: HO.CT Attending Dr: Maranda Serna MD Ordering Physician: Maranda Serna MD Date of Service: 02/25/25 Procedure(s): CT chest wo IV con Accession Number(s): [id number] cc: Maranda Serna MD Report Number: [id number]: Total DLP = 183.00 mGy-cm EXAMINATION: CT [...] reconstruction technique DLP: 183 mGy centimeter. FINDINGS: PCA ASSISTED LIVING: Large body habitus. Vascular clips right upper [...] 02/25/25 1155 DD/ 1115 TD/TT: 02/25/25 1124 Certified Fire Investigator: Maranda Serna MD IMG CT PROCEDURES Edited Result - Final documented in this encounter Visit Diagnoses Diagnosis Pulmonary nodule- Primary Other diseases of lung, not elsewhere classified documented in this encounter Additional Health Concerns Assessment Noted Time PHQ-9 Depression Total Score: 0 01/18/20 25 1:12 PM EDT documented as of this encounter Care Teams Travel Guide Relationship Specialty Start Date End Date Maranda Serna MD [address] [place] [id number] PCP - General Family Medicine 08/01/21 documented as of this encounter
--- OUTSIDE RECORDS SUMMARY | 2025-07-22 17:35 | XMS_ITS | Clinical Summary ---
Author Organization [employer] Address [address] [facility] [facility] [address] [place] [address] Care Team Providers Care Dispatch Officer Name Role Phone Maranda Serna MD Primary Care Provider [phone] Allergies Active Allergy Reactions Criticality Noted Date [...] mouth in the morning. 30 tablet 11 Active Blood Glucose Monitoring Suppl (FreeStyle Lite) w/Device kit 1 Dose 3 times daily. 1 kit 023 Active glucose blood (FREESTYLE LITE) test strip TEST BLOOD SUGAR 3 TIMES A DAY 100 each Active predniSONE (Deltasone) 10 MG tablet Take 1 or 2 tablets by mouth once daily for pain 10 tablet Active gabapentin (Neurontin) 600 MG tablet Take 1/4 (150 mg) or 1/2 (300 mg) tablets by mouth once at bedtime 15 tablet 11 Active oxybutynin XL (Ditropan-XL) 5 MG 24 hr tablet Take 5 mg by mouth Once per day. 023 Active insulin lispro (HumaLOG) 100 UNIT/ML injection INJECT 14 UNITS SUBCUTANEOUSLY THREE TIMES DAILY BEFORE MEALS 15 mL 2 025 Active insulin degludec (Tresiba FlexTouch) 100 UNIT/ML injection INJECT 62 UNITS SUBCUTANEOUSLY EVERY DAY 30 mL 2 Active Easy Touch Pen [place] 31G X 8 MM miscIndication s:Type 2 diabetes mellitus with hyperglycemia, with long-term current use of insulin ([facility]) USE DIRECTED THREE TIMES DAILY 200 each [...] hr tablet Take 30 mg by mouth. 01/22/2 025 Active niacinamide 500 MG tablet TAKE 1 [...] insulin ([facility]) TEST BLOOD SUGAR THREE TIMES DAILY 100 each Active simethicone (Mylicon) 125 MG chewable tablet Chew 1 tablet (125 mg) every 6 (six) hours if needed for flatulence. 100 tablet 3 025 Active Acetaminophen Extra Strength 500 MG tablet TAKE 1 TO 2 TABLETS BY MOUTH EVERY 8 HOURS NEEDED FOR PAIN OR FEVER 90 tablet 3 025 Active glucose blood test stripIndicatio ns:Type 2 diabetes mellitus with hyperglycemia, with long-term current use of insulin ([facility]) OneTouch brand. TEST BLOOD SUGAR THREE TIMES DAILY 100 each 12 025 2025 Active glucose blood (FREESTYLE LITE) test stripIndicatio ns:Type 2 diabetes mellitus with stage 3b chronic kidney disease, with long-term current use of insulin ([facility]) USE TO TEST BLOOD SUGAR THREE TIMES A DAY 100 each 3 025 Active Blood Glucose Monitoring Suppl (FreeStyle Lite) w/Device kitIndications :Type 2 diabetes mellitus with stage 3b chronic kidney disease, with long-term current use of insulin ([facility]) 1 Dose by Other route 3 times daily. USE TO TEST BLOOD SUGAR THREE TIMES A DAY 1 kit 025 Active TRUEplus Lancets 33G miscIndication s:Type 2 diabetes mellitus with stage 3b chronic kidney disease, with long-term current use of insulin ([facility]) USE TO TEST BLOOD SUGAR THREE TIMES A DAY 100 each 3 Active pantoprazole (Protonix) 40 MG EC tablet Take 1 tablet (40 mg) by mouth before breakfast. Do not crush, chew, or split. 90 tablet 3 025 2025 Active Tirzepatide (Mounjaro) 2.5 MG/0.5ML solution auto-injector Inject 2.5 mg under the skin 1 (one) time per week. 2 mL 11 Active Blood Glucose Monitoring Suppl (FreeStyle [place]) kit Check blood glucose 3 times daily and as needed 1 kit Active omeprazole OTC (PriLOSEC OTC) 20 MG EC tablet Take 20 mg by mouth before breakfast. Do not crush, chew, or split. 2024 Discontinued(M ed list cleanup (will not trigger notification to Pharmacy)) Active Problems Problem Noted Date Diagnosed Date Gas pain 04/22/2025 Assessment & Plan (04/22/2025 3:38 PM EDT): - Patient requests simethicone tablet form not capsule. Pulmonary nodule 02/07/2025 Coronary artery disease 01/16/2025 Assessment & Plan (07/20/2025 2:46 PM EDT): -Damage Assessor: [facility], last seen in May 2025 -11/30/2024- Cardiac catheterization showed [id number] distal LAD disease with severe distal stenosis and severe OM1 stenosis, small caliber vessels with severe disease and not amenable to stenting therefore was started on medical management with dual antiplatelet therapy. -12/01/2024- echo showed LVEF at 57%, with LV wall thickness in the pattern of concentric hypertrophy, central venous pressure mildly elevated, with no obvious wall motion abnormalities. -Continue dual antiplatelet therapy with aspirin and clopidogrel. -Continue statin therapy, ideally LDL less than 70. Assessment & Plan (04/12/2025 1:39 PM EDT): -Damage Assessor: [facility], last seen in Dec 2024 -11/30/2024- Cardiac catheterization showed [id number] distal LAD disease with severe distal stenosis [...] Assessment & Plan (01/21/2025 12:33 PM EDT): -Damage Assessor: [facility], last seen in Dec 2024 -11/30/2024- Cardiac catheterization showed omqy-rb-[id number] distal LAD disease with severe distal stenosis [...] and supportive care - follow up with coding manager as scheduled Assessment & Plan (07/23/2024 9:02 [...] Plan (01/17/2025 11:35 AM EDT): - seeing coding manager - continue judicious use of gabapentin 100 mg tid - she wants to switch to tablet. Only tablets available are 600 and 800 mg tablet - will have her take 1/4 of 600 mg tablet and take bid; or will check with pharmacist if she can open the capsule and take inside content Assessment & Plan (07/23/2024 5:36 AM EDT): - seeing coding manager - continue judicious use of gabapentin 100 mg tid - she wants to switch to tablet. Only tablets available are 600 and 800 mg tablet - will have her take 1/4 of 600 mg tablet and take bid; or will check with pharmacist if she can open the capsule and take inside content Assessment & Plan (01/04/2024 3:36 PM EST): - seeing coding manager - continue judicious use of gabapentin Assessment & Plan (10/03/2023 9:48 AM EST): - seeing coding manager - waiting for diabetic orthotics Adjustment disorder [...] diagnosis of hypertension 06/07/2023 Assessment & Plan (07/11/2025 11:29 AM EDT): -Goal BP < 130/80 per ACC/AHA guideline -BP at goal today -Continue working on lifestyle modifications -Recommended self-monitoring BP. -Pt has tried lisinopril for renal protection, not for HTN, in the past, but it was discontinued due to hyperkalemia and cough -Currently prescribed Dapagliflozin from patient support partner Assessment & Plan (04/22/2025 3:19 PM EDT): -Goal BP < 130/80 per ACC/AHA guideline -BP at goal today -Continue working on lifestyle modifications -Recommended self-monitoring BP. -Pt has tried lisinopril for renal protection, not for HTN, in the past, but it was discontinued due to hyperkalemia and cough -Currently prescribed Dapagliflozin from patient support partner Assessment & Plan (07/20/2024 1:50 PM EDT): -Goal BP < 140/90 per JNC-8 and < 130/80 per ACC/AHA guideline (Treatment threshold >= 140/90 ) -BP at goal today -Continue working on lifestyle modifications -Recommended self-monitoring BP. -Pt has tried lisinopril for renal protection, not for HTN, in the past, but it was discontinued due to hyperkalemia and cough -Currently prescribed Dapagliflozin from patient support partner -Follow up in 3-6 mo, sooner if [...] hyperkalemia and cough -Currently prescribed Dapagliflozin from patient support partner -Follow up in 3-6 mo, sooner if [...] neuropathy; osteoarthritis; plantar fasciitis - Following with coding manager Assessment & Plan (06/07/2023 3:44 PM EDT): - left foot worse than right - multifactorial: Diabetic peripheral neuropathy; osteoarthritis; plantar fasciitis - referred to a coding manager; waiting for an appt - check the status of diabetic footwear Obesity 02/24/2023 Assessment & Plan (07/20/2025 2:50 PM EDT): - Continue working on lifestyle modifications - Start tirzepatide for diabetes and weight management Dyslipidemia 02/24/2023 Assessment & Plan (07/11/2025 11:29 AM EDT): - Last lipid profile on 03/22/25 Total cholesterol 124; Triglyceride 96; HDL 53; LDL 52; - Previously prescribed pravastatin - Currently prescribed atorvastatin, but pt was having a difficulty accepting the information that it is not nephrotoxic. - Continue working on lifestyle modifications. Assessment & Plan (04/12/2025 4:47 PM EDT): [...] use of insulin 02/11/2023 Assessment & Plan (07/15/2025 12:06 PM EDT): See plan for E11.65 Assessment & Plan (04/12/2025 1:40 PM EDT): [...] want to try any GLP-1 agonist. -Patient Grain Elevator Man prescribed Farxiga. Patient is taking this medication [...] want to try any GLP-1 agonist. -Patient Grain Elevator Man prescribed Farxiga. Patient is no longer taking [...] 3:42 PM EST): - followed by [facility] - no anatomical pancreatic abnormality on MRI in Dec 2022 - continue vegan / plant-based pancreatic enzyme Assessment & Plan (10/03/2023 9:49 AM EST): - followed by [facility] - no anatomical pancreatic abnormality on MRI in Dec 2022 - continue vegan / plant-based pancreatic enzyme Assessment & Plan (06/07/2023 3:30 PM EDT): - followed by [facility] - no anatomical pancreatic abnormality on MRI in Dec 2022 - continue vegan / plant-based pancreatic enzyme Assessment & Plan (02/24/2023 5:30 AM EDT): - followed by [facility] - no anatomical pancreatic abnormality on MRI in Dec 2022 - continue vegan / plant-based pancreatic enzyme Assessment & Plan (12/18/2022 6:12 PM EST): - followed by [facility] - continue vegan pancreatic enzyme Allergic rhinitis 10/12/2022 Anemia 10/12/2022 Assessment & Plan (07/11/2025 11:30 AM EDT): - likely due to chronic diseaes - Hx iron infusion - continue iron supplementation - Continue vitamin B12 Assessment & Plan (04/22/2025 3:38 PM EDT): [...] Chronic idiopathic constipation 10/12/2022 Assessment & Plan (07/20/2025 2:53 PM EDT): -Followed by [facility], last seen 01/03/25 -EGD and Colonoscopy on 12/24/21; showed Tubular Adenoma, she was recommended to repeat in 3 years. - pt has been using castor oil - continue trying fiber-rich diet and increasing physical activity as tolerated. - continue Senakot as prescribed - Being scheduled for EGD and colonoscopy in near future. Preop is already done by roller skate repairer. Patient was advised to return to hold the clopidogrel 5 days prior to procedure Assessment & Plan (01/21/2025 12:33 PM EDT): -Followed by [facility], last seen 01/03/25 -EGD and Colonoscopy on 12/24/21; showed Tubular Adenoma, she was recommended to repeat in 3 years. - pt has been using castor oil - continue trying fiber-rich diet and increasing physical activity as tolerated. - continue Senakot as prescribed Assessment & Plan (07/20/2024 1:50 PM EDT): -Followed by [facility], last seen 08/06/22 -EGD and Colonoscopy on 12/24/21; showed Tubular Adenoma, she was recommended to repeat in 3 years. - pt has been using castor oil - continue trying fiber-rich diet and increasing physical activity as tolerated. - continue Senakot as prescribed Assessment & Plan (01/04/2024 3:38 PM EST): -Followed by [facility], last seen 08/06/22 -EGD and Colonoscopy on 12/24/21; showed Tubular Adenoma, she was recommended to repeat in 3 years. - pt has been using castor oil - continue trying fiber-rich diet and increasing physical activity as tolerated. - continue Senakot as prescribed Assessment & Plan (06/07/2023 3:33 PM EDT): -Followed by [facility], last seen 08/06/22 -EGD and Colonoscopy on 12/24/21; showed Tubular Adenoma, she was recommended to repeat in 3 years. - pt has been using castor oil - continue trying fiber-rich diet and increasing physical activity as tolerated. - continue Senakot as prescribed Assessment & Plan (12/18/2022 6:26 PM EST): -Followed by [facility], last seen 08/06/22 -EGD and Colonoscopy on 12/24/21; showed Tubular Adenoma, she was recommended to repeat in 3 years. - pt has been using castor oil - continue trying fiber-rich diet and increasing physical activity as tolerated. - continue Senakot as prescribed Chronic kidney disease, stage III (moderate) 01/2022 Assessment & Plan (07/11/2025 11:30 AM EDT): - Grain Elevator Man, Dr. Marci Hylton. Last seen on 01/25/25 - Metformin is discontinued, Dr. Tsai started her on Dapagliflozin (Farxiga) - Previously on Lisinopril, but was disccontinued due to cough / K - Avoid nephrotoxic drugs, including NSAID (no more Aleve) - Renal dose meds Assessment & Plan (04/12/2025 1:40 PM EDT): - Grain Elevator Man, Dr. Marci Hylton. Last seen on 01/25/25 - Metformin is discontinued, Dr. Tsai started her on Dapagliflozin (Farxiga) - Previously on Lisinopril, but was disccontinued due to cough / K - Avoid nephrotoxic drugs, including NSAID (no more Aleve) - Renal dose meds Assessment & Plan (01/21/2025 12:32 PM EDT): - Grain Elevator Man, Dr. Marci Hylton. Last seen on 01/25/25 - Metformin is discontinued, Dr. Tsai started her on Dapagliflozin (Farxiga) - Previously on Lisinopril, but was disccontinued due to cough / K - Avoid nephrotoxic drugs, including NSAID (no more Aleve) - Renal dose meds Assessment & Plan (07/23/2024 5:41 AM EDT): - Grain Elevator Man, Dr. Marci Hylton. - Metformin is discontinued, Dr. Tsai started bryn ib Dapagliflozin (Farxiga) - Previously on Lisinopril, but was disccontinued due to cough / K - Avoid nephrotoxic drugs, including NSAID (no more Aleve) - Renal dose meds Assessment & Plan (01/04/2024 3:45 PM EST): - Grain Elevator Man, Dr. 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 Tsai is prescribing Dapagliflozin (Farxiga) - Previously on Lisinopril, but was disccontinued due to cough / K - Avoid nephrotoxic drugs - Renal dose meds Assessment & Plan (10/03/2023 9:41 AM EST): - Grain Elevator Man, Dr. 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 Tsai rx Farxiga for DM management - Previously on Lisinopril, but was disccontinued due to cough / K - Avoid nephrotoxic drugs - Renal dose meds - Pt was advised that atorvastatin is not nephrotoxic and it will lower her ASCVD risk. Pt continues to decline statin therapy. Assessment & Plan (06/07/2023 3:34 PM EDT): - Grain Elevator Man, Dr. 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 [...] & Plan (02/24/2023 5:37 AM EDT): - Grain Elevator Man, Dr. Tsai - Lab: 12/24/22 BUN 28, [...] & Plan (12/18/2022 6:31 PM EST): - Grain Elevator Man, Dr. 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 Tsai rx Bamxiga for DM management - Previously on Lisinopril, but was disccontinued due to cough / K - Avoid nephrotoxic drugs - Renal dose meds - Pt was advised that atorvastatin is not nephrotoxic and it will lower her ASCVD risk. Pt continues to decline statin therapy. Gastroesophageal reflux disease 10/12/2022 Assessment & Plan (07/20/2025 2:52 PM EDT): -s/p EGD 12/24/21 -followed by [facility] - Patient has been taking omeprazole tablets, but recently it was switched to capsule. Patient is unable to take capsule because it contains porcine product. -since patient is on clopidogrel, changed to pantoprazole tablet. - Being scheduled for EGD Assessment & Plan (04/22/2025 3:36 PM EDT): -s/p EGD 12/24/21 -followed by [facility] -refill famotidine as requested. Patient takes prn. -since patient is on clopidogrel, will check whether patient is taking omeprazole or pantoprazole. Assessment & Plan (01/04/2024 3:42 PM EST): -s/p EGD 12/24/21 -followed by [facility] -continue omeprazole 40mg daily -previously tried pantoprazole and lansoprazole; pt prefers omeprazole. -previously prescribed famotidine. Max dose for her renal function is 20 mg daily. Pt does not take it regularly. Assessment & Plan (10/03/2023 9:50 AM EST): -s/p EGD 12/24/21 -followed by [facility] -continue omeprazole 40mg daily -previously tried pantoprazole and lansoprazole; pt prefers omeprazole. -previously prescribed famotidine. Max dose for her renal function is 20 mg daily. Pt does not take it regularly. Assessment & Plan (06/07/2023 3:33 PM EDT): -s/p EGD 12/24/21 -followed by [facility] -continue omeprazole 40mg daily -previously tried pantoprazole and lansoprazole; pt prefers omeprazole. -previously prescribed famotidine. Max dose for her renal function is 20 mg daily. Pt does not take it regularly. Assessment & Plan (12/18/2022 6:28 PM EST): -s/p EGD 12/24/21 -followed by [facility] -continue prantoprazol 40mg daily -previously prescribed famotidine. Max dose for her renal function is 20 mg daily. Irritable bowel syndrome 10/12/2022 Assessment & Plan (07/20/2025 2:50 PM EDT): - followed by [facility] - continue current treatment plan per GI - low FODMAP diet - pt is prescribed simethicone, Sennakot, citrucel, but does not like taking it regularly Assessment & Plan (07/20/2024 1:50 PM EDT): - followed by [facility] - continue current treatment plan per GI - low FODMAP diet - pt is prescribed simethicone, Sennakot, citrucel, but does not like taking it regularly Assessment & Plan (01/04/2024 3:42 PM EST): - followed by [facility] - continue current treatment plan per GI - low FODMAP diet - pt is prescribed simethicone, Sennakot, citrucel, but does not like taking it regularly Assessment & Plan (10/03/2023 9:49 AM EST): - followed by [facility] - continue current treatment plan per GI - low FODMAP diet - pt is prescribed simethicone, Sennakot, citrucel, but does not like taking it regularly Assessment & Plan (06/07/2023 3:32 PM EDT): - followed by [facility] - continue current treatment plan per GI - low FODMAP diet - pt is prescribed simethicone, Sennakot, citrucel, but does not like taking it regularly Assessment & Plan (12/18/2022 6:27 PM EST): - followed by [facility] - continue current treatment plan per GI --FODMAP diet --simethicone, Sennakot, citrucel Obstructive sleep apnea syndrome 10/12/2022 Assessment & Plan (07/20/2025 2:54 PM EDT): - Pt does not feel comfortable with CPAP - Will start tirzepatide Assessment & Plan (06/07/2023 3:30 PM EDT): - Pt does not feel comfortable with CPAP Assessment & Plan (12/18/2022 6:12 PM EST): - Pt does not feel comfortable with CPAP Osteopenia 10/12/2022 Assessment & Plan (07/23/2024 5:43 AM EDT): - weight bearing exercise as tolerated - adequate calcium and vitamin D intake Type 2 diabetes mellitus 10/12/2022 Assessment & Plan (07/20/2025 3:02 PM EDT): - A1c 7.9% on 07/12/25, improved from 8.2% on 04/12/25 - Continue working on lifestyle modification - Improve adherence self-monitoring glucose and insulin administration - Continue Tresiba 24-28 units at bedtime, questionable adherence and understanding of insulin dosing - Continue Humalog 10 units qAC (she states prefer to take right after meal instead prior) - Continue dapagliflozin (Farxiga) - Start tirzepatide 2.5 mg weekly - Discussed about CGM, which she does not want to use it at this time - Disliked Freestyle lite. Will switch to Freestyle [place] Treatment Hx -Pt has taken dulaglutide and had significant side effects, mainly GI. -metformin was discontinued due to CKDIII and renal decline. -Eye exam: 04/09/23, more recent per pt -Foot exam: Jul 2024; diabetic peripheral neuropathy -Microalbumin Test: 03/22/25 UACR was 28.7 Hx microalbuminuria -Lipid profile: 03/22/25 Assessment & Plan (04/12/2025 4:46 PM EDT): [...] - Prescribed dapagliflozin (Farxiga) from PCP and patient support partner, questionable adherence - Discussed about CGM, which she does not want to use it at this time Treatment Hx -Pt has taken GLP-1 agonists and had significant side effects, mainly GI. Pt states she does not want to try any GLP-1 agonist. -Patient Grain Elevator Man prescribed Farxiga. Patient is taking this medication [...] - Prescribed dapagliflozin (Farxiga) from PCP and patient support partner, questionable adherence - Discussed about CGM, which she does not want to use it at this time Treatment Hx -Pt has taken GLP-1 agonists and had significant side effects, mainly GI. Pt states she does not want to try any GLP-1 agonist. -Patient Grain Elevator Man prescribed Farxiga. Patient is taking this medication [...] want to try any GLP-1 agonist. -Patient Grain Elevator Man prescribed Farxiga. Patient is taking this medication [...] want to try any GLP-1 agonist. -Patient Grain Elevator Man prescribed Farxiga. Patient is no longer taking [...] want to try any GLP-1 agonist. -Patient Grain Elevator Man prescribed Farxiga. Patient is no longer taking [...] want to try any GLP-1 agonist. -Patient Grain Elevator Man prescribed Farxiga. Patient is no longer taking [...] want to try any GLP-1 agonist. -Patient Grain Elevator Man prescribed Farxiga. Patient is no longer taking [...] Encounters Date Type Department Care Team Description 07/22/2025 Orders Only GENERIC EXTERNAL DATA DEPARTMENT Provider, Generic External Data 07/12/2025 3:30 PM EDT Office Visit [facility] [address] [place] [address] Maranda Serna MD Type 2 diabetes mellitus with stage 3b chronic kidney disease, with long-term current use of insulin ([facility]) (Primary Dx); Elevated blood pressure reading in office without diagnosis of hypertension; Dyslipidemia; Coronary artery disease of [place] artery of [place] heart with stable angina pectoris ([facility]); Type 2 diabetes mellitus with hyperglycemia, with long-term current use of insulin ([facility]); Stage 3b chronic kidney disease ([facility]); Anemia due to stage 3b chronic kidney disease ([facility]); Class 2 severe obesity due to excess calories with serious comorbidity and body mass index (BMI) of 36.0 to 36.9 in adult ([facility]); Gastroesophageal reflux disease, unspecified whether esophagitis present; Irritable bowel syndrome with constipation; Chronic idiopathic constipation; Obstructive sleep apnea syndrome 07/12/2025 Travel 07/01/2025 Orders Only [facility] External Provider, [facility] 05/27/2025 Results Follow-Up [facility] [address] [place] [address] Maranda Serna MD BI Mammogram Screening Tomosynthesis Bilateral, US Thyroid 05/19/[address] [facility] [address] [place] [address] Maranda Serna MD Type 2 diabetes mellitus with stage 3b chronic kidney disease, with long-term current use of insulin ([facility]) 05/04/2025 Refill [facility] [address] [place] [address] Maranda Serna MD Type 2 diabetes mellitus with hyperglycemia, with long-term current use of insulin ([facility]) 04/25/2025 Orders Only [facility] [address] [facility] [place] [address] Maranda Serna MD 04/22/2025 Orders Only GENERIC [...] Sign Reading Time Taken Comments Blood Pressure 124/78 07/12/2025 4:14 PM EDT Pulse 89 07/12/2025 3:21 PM EDT Temperature 36 C (96.8 F) 07/12/2025 3:21 PM EDT Respiratory Rate 17 07/12/2025 3:21 PM EDT Oxygen Saturation 97% 07/12/2025 3:21 PM EDT Inhaled Oxygen Concentration - - Weight 92.2 kg (203 lb 3.2 oz) 07/12/2025 3:21 P M EDT Height 160 cm (5' 3 ) 07/12/2025 3:21 PM EDT Body Mass Index 36 07/12/2025 3:21 PM EDT Plan of Treatment Health Maintenance [...] , 09/23/2023, 10/14/2022, Additional history exists Diabetes: Foot Exam 07/19/2025 07/19/2024 Diabetes: Hemoglobin A1C 10/11/2025 025, 04/12/2025, 01/17/2025, Additional history exists Alcohol/Substance Use Screening 01/17/2026 01/17/2025 Depression Screening 01/17/2026 01/17/2025, 01/18/20 SDOH Screening 04/12/2026 04/12/2025 Tobacco Screening 07/12/2026 07/12/2025 Lipid Panel 07/22/2026 07/22/2025, 0501/2025, 12/30/2023, Additional history exists Mammogram 05/16/2027 05/16/2025, 0412/2023, 08/21/2022 DTaP/Tdap/Td Vaccines (3 - Td or [...] Procedure Name Priority Date/Time Associated Diagnosis Comments TSH W/REFLEX TO FT4 Routine 07/22/2025 9 :40 AM EDT LIPID PANEL, STANDARD Routine 07/22/2025 9:40 AM EDT CBC WITH AUTO DIFFERENTIAL Routine 07/22/2025 9:40 AM EDT POCT GLYCATED HEMOGLOBIN, TOTAL Routine 07/12/2025 3:25 PM EDT Type 2 diabetes mellitus with stage 3b chronic kidney disease, with long-term current use of insulin (CMS/HCC) POCT GLUCOSE Routine 07/12/2025 3:24 PM EDT Type 2 diabetes mellitus with stage 3b chronic kidney disease, with long-term current use of insulin (CMS/HCC) US ABDOMEN LIMITED Routine 07/01/2025 9: 14 AM EDT US THYROID Routine 06/06/2025 1:04 PM EDT [...] 2 VIEWS Routine 04/22/2025 1:34 PM EDT HM COLONOSCOPY Routine 07/07/2022 from Last 3 Months or Most Recently Relevant to Health Maintenance Results * TSH with Reflex to Free T4 (07/22/2025 9:40 AM EDT) Pathologist [facility] TSH reflex Free T4 3.28 0.32 - 4.0 uIU/mL [facility] 07/22/2025 9:40 AM EDT 07/22/2025 9:46 AM EDT us Generic External Data Provider LAB BLOOD ORDERAB LES Final Result [facility] [address] [place] [phone] * (ABNORMAL) CBC auto differential (07/22/2025 9:40 AM EDT) Only the most recent of2 resultswithin the time period is included. Pathologist [facility] White Blood Count 7.2 4.8 - 10.8 X10*3/uL [facility] Red Blood Count 4.00(L) 4.20 - 5.50 X10*6/uL [facility] Hemoglobin 11.5(L) 12.0 - 16.0 g/dl [facility] Hematocrit 37.7 37.0 - 47.0 % [facility] Mean Corpuscular Volume 94.3 80.0 - 98.0 fL [facility] Mean Corpuscular Hemoglobin 28.8 27.0 - 33.0 pg [facility] Mean Corpuscular HGB Conc 30.5(L) 31.0 - 35.0 g/dl [facility] Red Cell Distribution Width 14.1 11.0 - 16.0 % [facility] Platelet Count 266 160 - 400 X10*3/uL [facility] Mean Platelet Volume 9.7 9.4 - 12.3 fL [facility] Neutrophils Percent Auto 60.6 45 - 73 % [facility] Imm Gran Pct Auto 0.1 0.0 - 0.4 % [facility] Lymphocytes Percent Auto 28.9 20 - 40 % [facility] Monocytes Percent Auto 7.6 2 - 11 % [facility] Eosinophils Percent Auto 2.1 0 - 4 % [facility] Basophils Percent Auto 0.7 0 - 2 % [facility] NRBC Pct Auto 0.0 0.0 - 0.2 /100WBC [facility] Neutrophils Absolute Auto 4.4 2.0 - 8.3 x10*3/uL [facility] Imm Gran Abs Auto 0.01 0.00 - 0.03 X10*3/uL [facility] Lymphocytes Absolute Auto 2.1 1.2 - 4.9 X10*3/uL [facility] Monocytes Absolute Auto 0.6 0.1 - 1.2 X10*3/uL [facility] Eosinophils Absolute Auto 0.2 0.0 - 0.4 X10*3/uL [facility] Basophils Absolute Auto 0.1 0.0 - 0.2 X10*3/uL [facility] NRBC Abs Auto 0.000 0.0 - 0.012 X10*3/uL [facility] 07/22/2025 9:40 AM EDT 07/22/2025 9:46 AM EDT us Generic External Data Provider LAB BLOOD ORDERAB LES Final Result [facility] [address] [place] [phone] * Lipid Panel, Standard (07/22/2025 9:40 AM EDT) Triglycerides 81 <150 mg/dL [facility] Comment:Desirable Triglyceri de: less than 150 mg/dLBorderline High Triglyceride 150-199 mg/dLHigh Triglyceride: 200-499 mg/dLVery High Triglyceride: greater than or equal to 5OO mg/dL Cholesterol 140 <200 mg/dL [facility] Comment:Desirable Cholestero l: less than 200 mg/dLBorderline High Cholesterol: 200-239 mg/dLHigh Cholesterol: greater than 239 mg/dL LDL Cholesterol Calculated 69 <100 mg/dL [facility] Comment:Desirable LDL: less than 100 mg/dLNear Optimal/Above Optimal LDL: 110- 129 mg/dLBorderline High LDL: 130-159 mg/dLHigh LDL: 160-189 mg/dLVery High LDL: greater than or equal to 190 mg/dL HDL Cholesterol 55 >40 mg/dL [facility] Comment:Desirable HDL: great er than 40 mg/dL Note: This HDL assay may give artificially low results in patients with liver disease. 07/22/2025 9:40 AM EDT 07/22/2025 9:46 AM EDT us Generic External Data Provider LAB BLOOD ORDERAB LES Final Result [facility] [address] [place] [address] [phone] * (ABNORMAL) POCT HGB A1C (07/12/2025 3:25 PM EDT) Hemoglobin A1C 7.9(A) 4.0 - 5.7 % QC Media Lot # [id number] Lot# Expiration Date 329, Blood 07/12/2025 3:25 PM EDT Maranda Serna MD POINT OF CARE TEST ENTER/EDIT OR DERABLES Final Result * (ABNORMAL) POCT Glucose (07/12/2025 3:24 PM EDT) Glucose Blood, POC 260(A) 60 - 200 mg/dL [employer] Media Lot # [id number] Lot# Expiration Date 194,311 Blood Capillary blood specimen / Unknown 07/12/2025 3:24 PM EDT us Maranda Serna MD POINT OF CARE TEST ENTER/EDIT OR DERABLES Final Result * US Abdomen Limited (07/01/2025 9:14 AM EDT) Anatomical Region Laterality Modality Abdomen Ultrasound 07/01/2025 9:14 AM EDT Narrative 07/01/2025 9:43 AM EDT [address] [address] Ultrasound Report Signed Patient: Ese Mendoza MR#: [id number] 8 : 1960 Acct:[id number] Age/Sex: 64 / F ADM Date: 07/01/25 Loc: HO.US Attending Dr: Zoe JOLLEY Ordering Physician: Zoe Montalvo Date of Service: 07/01/25 Procedure(s): US abdomen limited Accession Number(s): [id number] cc: Zoe Montalvo; Maranda Serna MD EXAMINATION: US ABDOMEN LIMITED CLINICAL INFORMATION: Right upper quadrant abdominal pain.. COMPARISON: None available. TECHNIQUE: Real-time ultrasound of the soft tissues in the right upper quadrant abdomen region of concern using a linear transducer with grayscale technique. FINDINGS: No fluid collections. No soft tissue mass. No edema pattern. US/US abdomen limited IMPRESSION: Negative exam, negative. Electronically signed by: Brandon Mosqueda MD 07/01/2025 09:40 AM EDT Dictated By: Brandon Reyes MD Signed By: <Electronically signed by Brandon Gonzales MD in OV> 07/01/25939 DD/ 3 TD/TT: 07/01/25919 Report Writer: Procedure Note Donotuseinterpreter, Image - 07/01/[address] [place] [address] Ultrasound Report Signed Patient: Ese MendozaMR#: [id number] 8 : 1960Acct:[id number] Age/Sex: 64 / FADM Date: 07/01/25 Loc: HO.US Attending Dr: Zoe [facility]alvo [facility] Ordering Physician: Zoe Montalvo Date of Service: 07/01/25 Procedure(s): US abdomen limited Accession Number(s): [id number] cc: Zoe Montalvo; Maranda Serna MD EXAMINATION: US ABDOMEN LIMITED CLINICAL INFORMATION: Right upper quadrant abdominal pain.. COMPARISON: None available. TECHNIQUE: Real-time ultrasound of the soft tissues in the right upper quadrant abdomen region of concern using a linear transducer with grayscale technique. FINDINGS: No fluid collections. No soft tissue mass. No edema pattern. US/US abdomen limited IMPRESSION: Negative exam, negative. Electronically signed by: Brandon Mosqueda MD 07/01/2025 09:40 AM EDT Dictated By: Brandon Reyes MD Signed By: <Electronically signed by Brandon Gonzales MDin OV> 07/01/25939 DD/ 3 TD/TT: 07/01/25919 Report Writer: us [facility] External Provider IMG US PROCEDURES Final Result * US Thyroid (06/06/2025 1:04 PM EDT) Anatomical Region Laterality Modality Head, Neck Ultrasound 06/06/2025 1:04 PM EDT Narrative 06/06/2025 1:50 PM EDT [address] [address] Ultrasound Report Signed Patient: Ese Mendoza MR#: [id number] 8 : 1960 Acct:[id number] Age/Sex: 64 / F ADM Date: 06/06/25 Loc: HO.US Attending Dr: Maranda Serna MD Ordering Physician: Maranda Serna MD Date of Service: 06/06/25 Procedure(s): US thyroid Accession Number(s): [id number] cc: Maranda Serna MD EXAMINATION: US THYROID [...] than or equal to 1 cm: 1. Customer Care Voice Consultant nodules are described as follows: 1. Location: [...] 06/06/25 1347 DD/ 1304 TD/TT: 06/06/25 1316 Report Writer: Procedure Note Donotuseinterpreter, Image - 06/06/[address] [address] Ultrasound Report Signed Patient: Kristen Mendoza#: [id number] 8 : 1960Acct:[id number] Age/Sex: 64 / FADM Date: 06/06/25 Loc: .US Attending Dr: Maranda Serna MD Ordering Physician: Maranda Serna MD Date of Service: 06/06/25 Procedure(s): US thyroid Accession Number(s): [id number] cc: Maranda Serna MD EXAMINATION: US THYROID [...] than or equal to 1 cm: 1. Customer Care Voice Consultant nodules are described as follows: 1. Location: [...] 06/06/25 1347 DD/ 1304 TD/TT: 06/06/25 1316 Report Writer: Maranda Serna MD IMG US PROCEDURES Final Result * BI Mammogram Screening Tomosynthesis Bilateral (05/16/2025 12:30 PM EDT) Anatomical Region Laterality Modality Breast Bilateral Mammography 05/16/2025 12:3 0 PM EDT Narrative 05/26/2025 7:54 PM EDT [facility] [address] [place] [address] Mammography Report Signed with Addenda Patient: Ese Mendoza MR#: [id number] 8 : 1960 Acct:[id number] Age/Sex: 64 / F ADM Date: 05/16/25 Loc: HO.MAMMO Attending Dr: Maranda Serna MD Ordering Physician: Maranda Serna MD Results: 2Benign F indings Date of Service: 05/16/25 Follow Up: 1 Year From Orig ina Mammogram Procedure(s): MM tomosynthesis screening BI Accession Number(s): [id number] cc: Maranda Serna MD ADDENDUM ADDENDUM #2 ADDENDUM: Patient returned to the service to repeat the right CC. The findings on today's images, in conjunction with the images of the right breast from May 16, 2025 are as follows: RIGHT BREAST: History of previous reduction mammoplasty. No significant masses, suspicious calcifications or other abnormalities are seen. OVERALL ASSESSMENT: BI-RADS 2 - Benign Findings RECOMMENDATION: 1 year F/U Electronically signed by: Julio Pickard MD 06/07/2025 04:40 PM EDT ADDENDUM #1 ADDENDUM: Addendum created to correct laterality of the abnormal findings: LEFT BREAST: History of previous reduction mammoplasty. No significant masses, suspicious calcifications or other abnormalities are seen. RIGHT BREAST: History of previous reduction mammaplasty. No obvious significant masses, suspicious calcifications or other abnormalities are seen, however, evaluation limited by motion. IMPRESSION: LEFT BREAST: Benign, no mammographic evidence of malignancy. Normal interval follow-up is recommended in 12 months. RIGHT BREAST: Technical recall. Patient will be called back to repeat right CC view without motion. OVERALL ASSESSMENT: BI-RADS 0 - Incomplete: Needs additional Imaging. RECOMMENDATION: Additional Imaging required Electronically signed by: Julio Pickard MD 05/31/2025 04:32 PM EDT Addendum Dictated By: Julio Pickard MD Addendum Signed By: <Electronically signed by Julio Pickard MD in OV> 06/07/25 1640 Addendum Cosigned By: DD/ /03/1230 TD/TT: 05/16/2506/03/1245 EXAMINATION: MM SCREENING DIGITAL BREAST TOMOSYNTHESIS, BILATERAL [...] OV> 05/26/251950 DD/ 1230 TD/TT: 05/16/25 1245 Report Writer: Procedure Note Donotuseinterpreter, Image - 07/19/2025 [facility] [address] [place], [place] [address] Mammography Report Signed with Addenda Patient: Ese MendozaMR#: [id number] 8 : 1960Acct:[id number] Age/Sex: 64 / FADM Date: 05/16/25 Loc: HO.MAMMO Attending Dr: Maranda Serna MD Ordering Physician: Maranda Serna MDResults: 2Benign F indings Date of Service: 05/16/25Follow Up: 1 Year From [facility] Mammogram Procedure(s): MM tomosynthesis screening BI Accession Number(s): [id number] cc: Maranda Serna MD ADDENDUM ADDENDUM #2 ADDENDUM: Patient returned to the service to repeat the right CC. The findings on today's images, in conjunction with the images of the right breast from May 16, 2025 are as follows: RIGHT BREAST: History of previous reduction mammoplasty. No significant masses, suspicious calcifications or other abnormalities are seen. OVERALL ASSESSMENT: BI-RADS 2 - Benign Findings RECOMMENDATION: 1 year F/U Electronically signed by: Julio Pickard MD 06/07/2025 04:40 PM EDT RP ADDENDUM #1 ADDENDUM: Addendum created to correct laterality of the abnormal findings: LEFT BREAST: History of previous reduction mammoplasty. No significant masses, suspicious calcifications or other abnormalities are seen. RIGHT BREAST: History of previous reduction mammaplasty. No obvious significant masses, suspicious calcifications or other abnormalities are seen, however, evaluation limited by motion. IMPRESSION: LEFT BREAST: Benign, no mammographic evidence of malignancy. Normal interval follow-up is recommended in 12 months. RIGHT BREAST: Technical recall. Patient will be called back to repeat right CC view without motion. OVERALL ASSESSMENT: BI-RADS 0 - Incomplete: Needs additional Imaging. RECOMMENDATION: Additional Imaging required Electronically signed by: Julio Pickard MD 05/31/2025 04:32 PM EDT RP Addendum Dictated By: Julio Pickard MD Addendum Signed By: <Electronically signed by MD Yair in OV> 06/07/25 1640 Addendum Cosigned By: DD/ /03/1230 TD/TT: 05/16/2506/03/1245 EXAMINATION: MM SCREENING DIGITAL BREAST TOMOSYNTHESIS, BILATERAL [...] OV> 05/26/251950 DD/ 1230 TD/TT: 05/16/25 1245 Report Writer: Maranda Serna MD IMG BI PROCEDURES Edited Result - Final * High Sensitivity Troponin I (04/22/2025 2:18 PM EDT) Pathologist [facility] TROPONIN I HIGH SENSITIVITY 7.1 <3.5 - 17.0 ng/L [facility] Comment:The Castillo high sens itivity Troponin-I results should beused in conjunction with other diagnostic information suchas ECG, clinical observations and information, and patientsymptoms to aid in the diagnosis of PA. 04/22/2025 2:18 PM EDT 04/22/2025 2:27 PM EDT Generic External Data Provider LAB BLOOD ORDERAB LES Final Result [facility] [address] [place] [phone] * SARS-CoV-2 RNA, Influenza A/B, and RSV RNA, Ql NAAT (04/22/2025 2:18 PM EDT) Pathologist [facility] Influenza A PCR NEGATIVE Negative [facility] Influenza B PCR NEGATIVE Negative [facility] Resp Syncy Virus RNA Qual PCR NEGATIVE Negative [facility] SARS COV2 PCR NEGATIVE Negative [facility] Comment:All test results mus t be [...] use by authorized laboratories.Testing performed on the [place] GeneXpert utilizingreal-time RT-PCR.All SARS CoV2 and positive influenza A/B results arereported to [facility]. 04/22/2025 2:18 PM EDT 04/22/2025 2:27 PM EDT Generic External Data Provider LAB MICROBIOLOGY - GENERAL ORDERABLES Final Result Performing Organization Address [facility] de Phone Number [facility] [address] [place] [phone] * Magnesium (04/22/2025 2:18 PM EDT) Pathologist [facility] Magnesium 1.7 1.6 - 2.6 mg/dL [facility] 04/22/2025 2:18 PM EDT 04/22/2025 2:27 PM EDT Generic External Data Provider LAB BLOOD ORDERAB LES Final Result Performing Organization Address [facility] de Phone Number [facility] [address] [place] [phone] * Hepatic Function Panel (04/22/2025 2:18 PM EDT) Bilirubin, Total 0.3 0.0 - 1.0 mg/dL [facility] Bilirubin, Direct 0.1 0.0 - 0.5 mg/dL [facility] Aspartate Amino Transferase 26 5 - 31 U/L [facility] Alanine Aminotransferase 10 0 - 31 U/L [facility] Total Protein 6.8 6.5 - 8.0 g/dL [facility] Albumin Level 4.2 3.5 - 5.0 g/dL [facility] Alkaline Phosphatase 89 39 - 117 U/L [facility] 04/22/2025 2:18 PM EDT 04/22/2025 2:27 PM EDT us Generic External Data Provider LAB BLOOD ORDERAB LES Final Result Performing Organization Address City/[facility]/ZIP Co de Phone Number [facility] [address] [place] [phone] * (ABNORMAL) Basic Metabolic Panel (04/22/2025 2:18 PM EDT) Sodium 140 135 - 145 mmol/L [facility] Potassium 3.7 3.3 - 5.1 mmol/L [facility] Chloride 111(H) 96 - 108 mmol/L [facility] Carbon Dioxide 23 22 - 29 mmol/L [facility] Anion Gap 10(L) 12 - 20 [facility] Urea Nitrogen (BUN) 42(H) 9 - 16 mg/dL [facility] Creatinine, Serum 1.99(H) 0.5 - 1.4 mg/dL [facility] Creatinine Clr Calc Pharmacy 29.3 [facility] Comment:Provided height and weight: 157.48 cm,87.7 kg.eGFR (calculated from the MDRD study equation) and eCrCl(calculated from the Cockcroft-Gault equation) are based ondifferent parameters and may not yield comparable results.If eCrCl result is absurd, please check patient'sheight/weight. Estimated Glomerular Filt Rate 25 [facility] Comment:Chronic Kidney Disea se: Estimated GFR < 60 mL/min/1.64p8Hylmrz Kidney Disease: Estimated GFR < 15 mL/min/1.73m2 Glucose 64 60 - 115 mg/dL [facility] Calcium 8.8 8.4 - 10.2 mg/dL [facility] 04/22/2025 2:18 PM EDT 04/22/2025 2:27 PM EDT us Generic External Data Provider LAB BLOOD ORDERAB LES Final Result Performing Organization Address City/[facility]/ZIP Co de Phone Number [facility] [address] [place] [phone] * XR Chest 2 Views (04/22/2025 1:34 PM EDT) Anatomical Region Laterality Modality Chest Radiographic Mary ging 04/22/2025 1:34 PM EDT Narrative 04/22/2025 2:41 PM EDT [address] [address] XRay Report Signed Patient: Ese Mendoza MR#: [id number] 8 : 1960 Acct:[id number] Age/Sex: 64 / F ADM Date: 04/22/25 Loc: HO.ED Attending Dr: Ordering Physician: Bella Lomeli Date of Service: 04/22/25 Procedure(s): XR chest 2V Accession Number(s): [id number] cc: Bella Lomeli; Maranda Serna MD EXAMINATION: [...] 04/22/25 1438 DD/ 1334 TD/TT: 04/22/25 1431 Report Writer: Procedure Note Donotuseinterpreter, Image - 04/22/[address] [address] XRay Report Signed Patient: Ese MendozaMR#: [id number] 8 : 1960Acct:[id number] Age/Sex: 64 / FADM Date: 04/22/25 Loc: HO.ED Attending Dr: Ordering Physician: Bella Lomeli Date of Service: 04/22/25 Procedure(s): XR chest 2V Accession Number(s): [id number] cc: Bella Lomeli; Maranda Serna MD EXAMINATION: [...] 04/22/25 1438 DD/ 1334 TD/TT: 04/22/25 1431 Report Writer: [facility] External Provider IMG XR PROCEDURES Final Result * (ABNORMAL) Hm Colonoscopy (07/07/2022) Colonoscopy Abnormal(A ) Normal [facility] External Provider HEALTH MAINTENANCE Final Result from Last 3 Months or Most Recently Relevant to Health Maintenance Insurance [facility] C3 Care Teams Dispatch Officer Relationship Specialty Start Date End Date Maranda Serna MD [address] [place] [phone] PCP - General Family Medicine 08/01/21
--- OUTSIDE RECORDS SUMMARY | 2025-07-22 17:35 | XMS_ITS | Encounter Summary ---
Author Organization [employer] Address [address] [facility] [address] [place] [address] Care Team Providers Care General Laborer Name Role Phone Maranda Serna MD Primary Care Provider [phone] Reason for Visit * Reason Comments Med Refill Encounter Details Date Type Department Care Team ([facility] st Contact Info) Description 01/12/2025 Refill [facility] MEDICINE [address] [place], [place] [phone] Yesica Naylor MD [address] [place] [address] Social History Tobacco Use Types Packs/Day Years [...] documented as of this encounter Care Teams General Laborer Relationship Specialty Start Date End Date Maranda Serna MD [address] [place] [phone] PCP - General Family Medicine 08/01/21 documented as of this encounter
--- OUTSIDE RECORDS SUMMARY | 2025-07-22 17:35 | XMS_ITS | Encounter Summary ---
Author Organization [employer] Address [address] [facility] [address] [place] [address] Care Team Providers Care Stonecutter Hand Name Role Phone Maranda Serna MD Primary Care Provider [phone] Reason for Visit * Reason Onset Date Comments Durable Medical Equipment 05/26/2024 Encounter Details Date Type Department Care Team ([facility] st Contact Info) Description 05/26/2024 Telephone [facility] MEDICINE [address] [place], [place] [phone] Maranda Serna MD [address] [place], [place] [phone] Durable Medical Equipment Social History Tobacco Use [...] walker. Pt stated she was advised by food and beverage operations manager jigneshow up with orthopedic and they prescribed a walker for the pt. Pt wants script send over to [facility] [address] If any questions you can contact pt at [phone]. documented in this encounter Plan of Treatment Not on file documented as of this encounter Visit Diagnoses Not on filedocumented in this encounter Additional Health Concerns Assessment Noted Time PHQ-9 Depression Total Score: 6 10/23/20 22 10:04 AM EST documented as of this encounter Care Teams Stonecutter Hand Relationship Specialty Start Date End Date Maranda Serna MD [address] [place] [address] PCP - General Family Medicine 08/01/21 documented as of this encounter
--- OUTSIDE RECORDS SUMMARY | 2025-07-22 17:35 | XMS_ITS | Encounter Summary ---
Author Organization [employer] Address [address] [facility] [address]t [place] [address] Care Team Providers Care Durable Medical Equipment Technician Name Role Phone Maranda Serna MD Primary Care Provider [phone] Reason for Visit * Reason Onset Date Comments Hospital Follow-up 12/07/2024 Encounter Details Date Type Department Care Team ([facility] Contact Info) Description 12/07/[address] [facility] MEDICINE [address] [place], [place] [phone] Maranda Serna MD [address] [place], [place] [phone] Hospital Follow-up Social History Tobacco Use Types [...] follow up. Pt requested a call back. [phone] (Pt Contact) documented in this encounter Plan of Treatment Not on file documented as of this encounter Visit Diagnoses Not on filedocumented in this encounter Additional Health Concerns Assessment Noted Time PHQ-9 Depression Total Score: 6 10/23/20 10:04 AM EST documented as of this encounter Care Teams Durable Medical Equipment Technician Relationship Specialty Start Date End Date Maranda Serna MD [address] [place] [address] PCP - General Family Medicine 08/01/21 documented as of this encounter
--- OUTSIDE RECORDS SUMMARY | 2025-07-22 17:35 | XMS_ITS | Encounter Summary ---
Author Organization [employer] Address [address] [facility] [address] [place] [address] Care Team Providers Care Ice Plant Operator Name Role Phone Maranda Serna MD Primary Care Provider [phone] Reason for Visit * Reason Comments Med Refill Encounter Details Date Type Department Care Team ([facility] st Contact Info) Description 11/19/2023 Refill [facility] MEDICINE [address] [place], [place] [phone] Yesica Naylor MD [address] [place] [address] Social History Tobacco Use Types Packs/Day Years [...] documented as of this encounter Care Teams Ice Plant Operator Relationship Specialty Start Date End Date Maranda Serna MD [address] [place] [phone] PCP - General Family Medicine 08/01/21 documented as of this encounter
--- OUTSIDE RECORDS SUMMARY | 2025-07-22 17:35 | XMS_ITS | Encounter Summary ---
Author Organization [employer] Address [address] [facility] [address] [place] [address] Care Team Providers Care Skills Instructor Name Role Phone Maranda Serna MD Primary Care Provider [phone] Encounter Details Date Type Department Care Team (Late st Contact Info) Description 04/22/[address] [facility] [address] [place], [place] [phone] Maranda Serna MD [address] [place] [address] Left foot pain (Primary Dx); Type 2 diabetes mellitus with hyperglycemia, with long-term current use of insulin ([facility]) Social History Tobacco Use Types Packs/Day Years [...] hyperglycemia, with long-term current use of insulin ([facility]) documented in this encounter Additional Health Concerns Assessment Noted Time PHQ-9 Depression Total Score: 6 10/23/20 22 10:04 AM EST documented as of this encounter Care Teams Skills Instructor Relationship Specialty Start Date End Date Maranda Serna MD [address] [place] [id number] PCP - General Family Medicine 08/01/21 documented as of this encounter
--- OUTSIDE RECORDS SUMMARY | 2025-07-22 17:35 | XMS_ITS | Encounter Summary ---
Author Organization [employer] Address [address] [facility] 7t [place] [address] Care Team Providers Care Service Center Technician Name Role Phone Maranda Serna MD Primary Care Provider [phone] Encounter Details Date Type Department Care Team ([facility] Contact Info) Description 07/22/2025 Orders Only GENERIC EXTERNAL DATA [...] FT4 Routine 07/22/2025 9 :40 AM EDT CBC WITH AUTO DIFFERENTIAL Routine 07/22/2025 9:40 AM EDT LIPID PANEL, STANDARD Routine 07/22/2025 9:40 AM EDT documented in this encounter Results * TSH with Reflex to Free T4 (07/22/2025 9:40 AM EDT) TSH reflex Free T4 3.28 0.32 - 4.0 uIU/mL [facility] 07/22/2025 9:40 AM EDT 07/22/2025 9:46 AM EDT us Generic External Data Provider LAB BLOOD ORDERAB LES Final Result [facility] [address] [place] [phone] * Lipid Panel, Standard (07/22/2025 9:40 AM EDT) Triglycerides 81 <150 mg/dL [facility] Comment:Desirable Triglyceri de: less than 150 mg/dLBorderline High Triglyceride 150-199 mg/dLHigh Triglyceride: 200-499 mg/dLVery High Triglyceride: greater than or equal to 5OO mg/dL Cholesterol 140 <200 mg/dL [facility] Comment:Desirable Cholestero l: less than 200 mg/dLBorderline High Cholesterol: 200-239 mg/dLHigh Cholesterol: greater than 239 mg/dL LDL Cholesterol Calculated 69 <100 mg/dL [facility] Comment:Desirable LDL: less than 100 mg/dLNear Optimal/Above Optimal LDL: 110- 129 mg/dLBorderline High LDL: 130-159 mg/dLHigh LDL: 160-189 mg/dLVery High LDL: greater than or equal to 190 mg/dL HDL Cholesterol 55 >40 mg/dL [facility] Comment:Desirable HDL: great er than 40 mg/dL Note: This HDL assay may give artificially low results in patients with liver disease. 07/22/2025 9:40 AM EDT 07/22/2025 9:46 AM EDT us Generic External Data Provider LAB BLOOD ORDERAB LES Final Result [facility] [address] [place] [phone] * (ABNORMAL) CBC auto differential (07/22/2025 9:40 AM EDT) White Blood Count 7.2 4.8 - 10.8 X10*3/uL [facility] Red Blood Count 4.00(L) 4.20 - 5.50 X10*6/uL [facility] Hemoglobin 11.5(L) 12.0 - 16.0 g/dl [facility] Hematocrit 37.7 37.0 - 47.0 % [facility] Mean Corpuscular Volume 94.3 80.0 - 98.0 fL [facility] Mean Corpuscular Hemoglobin 28.8 27.0 - 33.0 pg [facility] Mean Corpuscular HGB Conc 30.5(L) 31.0 - 35.0 g/dl [facility] Red Cell Distribution Width 14.1 11.0 - 16.0 % [facility] Platelet Count 266 160 - 400 X10*3/uL [facility] Mean Platelet Volume 9.7 9.4 - 12.3 fL [facility] Neutrophils Percent Auto 60.6 45 - 73 % [facility] Imm Gran Pct Auto 0.1 0.0 - 0.4 % [facility] Lymphocytes Percent Auto 28.9 20 - 40 % [facility] Monocytes Percent Auto 7.6 2 - 11 % [facility] Eosinophils Percent Auto 2.1 0 - 4 % [facility] Basophils Percent Auto 0.7 0 - 2 % [facility] NRBC Pct Auto 0.0 0.0 - 0.2 /100WBC [facility] Neutrophils Absolute Auto 4.4 2.0 - 8.3 x10*3/uL [facility] Imm Gran Abs Auto 0.01 0.00 - 0.03 X10*3/uL [facility] Lymphocytes Absolute Auto 2.1 1.2 - 4.9 X10*3/uL [facility] Monocytes Absolute Auto 0.6 0.1 - 1.2 X10*3/uL [facility] Eosinophils Absolute Auto 0.2 0.0 - 0.4 X10*3/uL [facility] Basophils Absolute Auto 0.1 0.0 - 0.2 X10*3/uL [facility] NRBC Abs Auto 0.000 0.0 - 0.012 X10*3/uL [facility] 07/22/2025 9:40 AM EDT 07/22/2025 9:46 AM EDT us Generic External Data Provider LAB BLOOD ORDERAB LES Final Result [facility] [address] [place] [phone] documented in this encounter Visit Diagnoses Not on filedocumented in this encounter Additional Health Concerns Assessment Noted Time PHQ-9 Depression Total Score: 0 01/18/20 25 1:12 PM EDT documented as of this encounter Care Teams Service Center Technician Relationship Specialty Start Date End Date Maranda Serna MD [address] [place] [phone] PCP - General Family Medicine 08/01/21 documented as of this encounter
--- OUTSIDE RECORDS SUMMARY | 2025-07-22 17:35 | XMS_ITS | Encounter Summary ---
Author Organization [employer] Address [address] [place] [address] Care Team Providers Care Absorber Operator Name Role Phone Maranda Serna MD Primary Care Provider [phone] Encounter Details Date Type Department Care Team ([facility] st Contact Info) Description 01/13/2025 Orders Only [facility] [address] [place], [place] [phone] Maranda Serna MD [address] [place], [place] [phone] Pulmonary nodule (Primary Dx) Social History Tobacco [...] documented as of this encounter Care Teams Absorber Operator Relationship Specialty Start Date End Date Maranda Serna MD [address] [place] [address] PCP - General Family Medicine 08/01/21 documented as of this encounter
--- OUTSIDE RECORDS SUMMARY | 2025-07-22 17:35 | XMS_ITS | Encounter Summary ---
Author Organization [employer] Address [address] [facility] 7[address] [place] [address] Care Team Providers Care Videotape Sales Representative Name Role Phone Maranda Serna MD Primary Care Provider [phone] Encounter Details Date Type Department Care Team ([facility] st Contact Info) Description 01/28/2025 Orders Only [facility] MEDICINE [address] [place], [place] [phone] Maranda Serna MD [address] [place] [address] Type 2 diabetes mellitus with hyperglycemia, with long-term current use of insulin ([facility]) Social History Tobacco Use Types [...] hyperglycemia, with long-term current use of insulin ([facility]) documented in this encounter Additional Health Concerns Assessment Noted Time PHQ-9 Depression Total Score: 0 01/18/20 25 1:12 PM EDT documented as of this encounter Care Teams Videotape Sales Representative Relationship Specialty Start Date End Date Maranda Serna MD [address] [place] [address] PCP - General Family Medicine 08/01/21 documented as of this encounter
== END 2025-07-22 15:36 | disposition home or self-care (01) ==
LOC: HO.HPSW 15:05
PROVIDERS: PCP Family Medicine; Visit Provider Nurse Practitioner Family
DX: J45.909 Unspecified asthma, uncomplicated (principal); Z91.09 Other allergy status, other than to drugs and biological substances; R91.1 Solitary pulmonary nodule
CPT/HCPCS: 99214

== ENCOUNTER 2025-08-17 13:18 | Outpatient (AMB) | payer MEDICAID, SELFPAY ==
--- NOTE | 2025-08-17 13:23 | A.OFFVIS_ITS ---
Vital Signs 08/17/25 13:24 Height 5 ft 2 in Weight 203 lb 0.732 oz BMI 37.1 BP 124/72 Blood Pressure Location Rt brachial Position Sitting Pulse 98 Pulse Source Pulse Oximeter Pulse Oximetry (%) 97 Oxygen Delivery Method Room Air Intake Visit Reasons: T2DM Intake Note: NEW Patient presents today to establish treatment for Type 2 Diabetes Mellitus: Last Diabetic eye exam was on: due the of this month. Last Podiatry exam was on: Dr. Rodriguez on [facility] in [place]. on 03/17/25. Most recent HbA1c: 7.9%, 07/12/2025, PCP Random Glucose:? ?314 ?mg/dL Knife Operator Required: No Accompanied by: Self / Same As Patient Allergies Pork/Porcine Containing Products (Pork/Porcine Product Derivatives) Allergy (Mild, Verified 08/17/25 13:27) SORES /ITCHING Seasonal Allergies Allergy (Mild, Verified 08/17/25 13:27) Itching nickel Adverse Reaction (Verified 08/17/25 13:27) Swelling and irritation HPI Comments Details: The patient is a 64 year old female presenting for diabetes consultation Medical history CAD, NSTEMI, chronic kidney disease, hypertension, hyperlipidemia PCP: Dr Sauer. [facility] Diagnosed: 1996 Mom, dad had diabetes Diabetes medications Farxiga 5mg daily Tresiba 30-40 units daily, says she sometimes takes up to 60 Lispro 45 units with meals Previously did not tolerate victoza-terrible diarrhea. PCP sent mounjaro but she was too afraid to start it given SE with victoza. Bigger breakfast and Lunch/dinner between 5 and 6pm. [place] milk, gluten free toast, does substitute sweeteners. Not eating a sugar. A1C: 07/12/2025 -7.9% from 8.2% in April On statin therapy Has not tolerated LEIDY 2/2 cough Sees GI-chronic abdominal issues. Waiting for colonoscopy appt Upcoming eye appt Tomorrow seeing her podiatris ROS CONSTITUTIONAL: Denies weight loss, fever and chills. HEENT: Denies changes in vision and hearing. RESPIRATORY: Denies SOB and cough. CV: Denies palpitations and CP GI: Denies new abdominal pain, nausea, vomiting and diarrhea. : Denies dysuria and urinary frequency. MSK: Denies new myalgia and joint pain. SKIN: Denies rash and pruritus. NEUROLOGICAL: Denies headache PSYCHIATRIC: Denies recent changes in mood. PHYSICAL EXAM: GENERAL: Alert and oriented x 3. NAD EYES: EOMI. Anicteric. HENT: Moist mucous membranes. No scleral icterus. No cervical lymphadenopathy. LUNGS: Clear to auscultation bilaterally. CARDIOVASCULAR: Regular rate and rhythm. No murmur. No JVD. ABDOMEN: Soft, non-tender +bs EXTREMITIES: No edema. Non-tender. SKIN: No rashes or lesions. Warm. NEUROLOGIC: No focal neurological deficits. CN II-XII grossly intact PSYCHIATRIC: Cooperative. Appropriate mood and affect [facility] Medical History (Updated 08/17/25 @ 14:08 by Nerissa Plunkett MD) Pancreatic insufficiency Pancreatic insufficiency Tubular adenoma CKD (chronic kidney disease) Anemia GERD (gastroesophageal reflux disease) Renal cyst Bladder prolapse, female, acquired Hx of gastric ulcer IBS (irritable bowel syndrome) Kidney stones High cholesterol Diabetes Surgical History Hx of endoscopy Hx of colonoscopy History of partial hysterectomy Hx of breast reduction, elective Hx of cholecystectomy Family History Father Heart attack DM2 (diabetes mellitus, type 2) Mother DM2 (diabetes mellitus, type 2) COPD (chronic obstructive pulmonary disease) Other No pertinent family history Social History Household Members: Family Housing: House Do you presently have visiting nurse or other home services: No Alcohol intake: never Patient Tobacco Use Status: Never used Tobacco Second Hand Smoke Exposure: No service: No Physical Exam Vital Signs: Last Vital Signs Pulse 98 08/17/25 13:24 BP 124/72 08/17/25 13:24 Pulse Ox 97 08/17/25 13:24 Oxygen Delivery Method Room Air 08/17/25 13:24 BMI result Body Mass Index 37.1 Results Reviewed Results Reviewed: Laboratory Last Values Glucose (Clinic) 314 mg/dL (60-115) H 08/17/25 13:39 Assessment & Plan Assessment & Plan (1) Diabetes: Code(s): E11.9 - Type 2 diabetes mellitus without complications Category: Medical Qualifiers: Diabetes mellitus complication status: with hyperglycemia Diabetes me llitus half-way insulin use: with watermelon harvesting supervisor use Diabetes mellitus type: type 2 Qualified Code(s): E11.65 - Type 2 diabetes mellitus with hyperglycemia; Z79.4 - terminal makeup operator (current) use of insulin Plan 64 year old for diabetes consultation Discussed being consistent with insulin dosing. continue farxiga. Would like her on another oral given that she changes her insulin dosing at times She is using traditional glucometer. Asked to bring to appts Treat hypoglycemia by rules of 15s She declines inclusion paraeducator referral She will return in 2 months for A1C or sooner as needed Orders: Referrals Nurse Navigator Referral E11.65 - Type 2 diabetes mellitus with hyperglycemia, Z79.4 - terminal makeup operator (current) use of insulin Medications: New pioglitazone 30 mg PO DAILY 90 tabs 3RF insulin degludec (Tresiba FlexTouch U-200 insulin) 40 units (0.2 mL) subcut BEDTIME 9 mL 3RF Coding Level of Care Code Est Pt Level 4 (63031) Diagnoses Type 2 diabetes mellitus with hyperglycemia, with long-term current use of insulin E11.65; Z79.4 Diabetes mellitus complication status: with hyperglycemia Diabetes mellitus watermelon harvesting supervisor insulin use: with watermelon harvesting supervisor use Diabetes mellitus type: type 2
[2025-08-17 13:24] VITALS: BP 124/72; PULSE 98; O2SAT 97; BMI 37.1
[2025-08-17 13:44] LABS: Glucose, Whole Blood 314 mg/dL (60-115)
== END 2025-08-17 14:13 | disposition home or self-care (01) ==
LOC: HO.ENCR 13:19
PROVIDERS: PCP Family Medicine; Referring Provider Nurse Practitioner Family; Visit Provider Internal Medicine
DX: E11.65 Type 2 diabetes mellitus with hyperglycemia (principal); Z79.4 Long term (current) use of insulin

== ENCOUNTER → 2025-08-17 13:18 | Outpatient (BNVA) | payer MEDICAID, SELFPAY | PROVIDERS: PCP Family Medicine; Referring Provider Nurse Practitioner Family; Visit Provider Internal Medicine | DX: E11.65 Type 2 diabetes mellitus with hyperglycemia (principal); Z79.4 Long term (current) use of insulin | CPT/HCPCS: 82947; 99212 ==

== ENCOUNTER 2025-09-29 10:19 | Day surgery (SDC) | payer MEDICAID, SELFPAY ==
--- OUTSIDE RECORDS SUMMARY | 2025-08-25 09:12 | XMS_ITS | Encounter Summary ---
Author Organization [employer] Address [address] [facility] 7t [place] [address] Care Team Providers Care Heavy Duty Press Operator Name Role Phone Maranda Serna MD Primary Care Provider [phone] Reason for Visit * Reason Onset Date Comments Hospital Follow-up 12/07/2024 Encounter Details Date Type Department Care Team ([facility] Contact Info) Description 12/07/2024 Telephone [facility] MEDICINE [address] [place], [place] [phone] Maranda Serna MD [address] [place], [place] [phone] Hospital Follow-up Social History Tobacco Use Types [...] follow up. Pt requested a call back. [phone] (Pt Contact) documented in this encounter Plan of Treatment Not on file documented as of this encounter Visit Diagnoses Not on filedocumented in this encounter Additional Health Concerns Assessment Noted Time PHQ-9 Depression Total Score: 6 10/23/20 10:04 AM EST documented as of this encounter Care Teams Heavy Duty Press Operator Relationship Specialty Start Date End Date Maranda Serna MD [address] [place] [address] PCP - General Family Medicine 08/01/21 documented as of this encounter
--- OUTSIDE RECORDS SUMMARY | 2025-08-25 09:12 | XMS_ITS | Clinical Summary ---
Author Organization [employer] Address [address] [place] [address] Care Team Providers Care Senior Application Security Consultant Name Role Phone Maranda Serna MD Primary Care Provider [phone] Allergies Active Allergy Reactions Criticality Noted Date Comments Cetirizine 10/01/2021 Nickel Rash Low 02/03/2020 Porcine (Pork) Protein 12/16/2022 Pork Allergy 06/25/2018 Medications * [...] as needed for wheezing. 18 g 01/17/20 Active famotidine (Pepcid) 20 MG tablet Take 1 tablet (20 mg) by mouth at bedtime. 15 tablet 04/25/20 23 Active cetirizine (ZyrTEC) 5 MG tablet Take 1 tablet (5 mg) by mouth in the morning. 30 tablet 11 06/03/20 Active Blood Glucose Monitoring Suppl (FreeStyle Lite) w/Device kit 1 Dose 3 times daily. 1 kit 09/23/20 Active glucose blood (FREESTYLE LITE) test strip TEST BLOOD SUGAR 3 TIMES A DAY 100 each 05/03/20 Active predniSONE (Deltasone) 10 MG tablet Take 1 or 2 tablets by mouth once daily for pain 10 tablet 07/19/20 Active gabapentin (Neurontin) 600 MG tablet Take 1/4 (150 mg) or 1/2 (300 mg) tablets by mouth once at bedtime 15 tablet 11 07/19/20 Active oxybutynin XL (Ditropan-XL) 5 MG 24 hr tablet Take 5 mg by mouth Once per day. 10/27/20 23 Active insulin lispro (HumaLOG) 100 UNIT/ML injection INJECT 14 UNITS SUBCUTANEOUSLY THREE TIMES DAILY BEFORE MEALS 15 mL 2 11/16/19 25 Active insulin degludec (Tresiba FlexTouch) 100 UNIT/ML injection INJECT 62 UNITS SUBCUTANEOUSLY EVERY DAY 30 mL 2 12/13/19 25 Active Easy Touch Pen [place] 31G X 8 MM miscIndications :Type 2 diabetes mellitus with hyperglycemia, with long-term current use of insulin (HCC) USE DIRECTED THREE TIMES DAILY 200 each [...] mg by mouth Once per day. 11/30/19 25 Active isosorbide mononitrate ER (Imdur) 30 MG 24 hr tablet Take 30 mg by mouth. 12/01/19 25 Active niacinamide 500 MG tablet TAKE 1 [...] hyperglycemia, with long-term current use of insulin ([facility]) TEST BLOOD SUGAR THREE TIMES [...] hyperglycemia, with long-term current use of insulin ([facility]) OneTouch brand. TEST BLOOD SUGAR THREE TIMES DAILY 100 each 05/04/20 25 026 Active glucose blood (FREESTYLE LITE) test stripIndication s:Type 2 diabetes mellitus with stage 3b chronic kidney disease, with long-term current use of insulin ([facility]) USE TO TEST BLOOD SUGAR THREE TIMES A DAY 100 each 05/19/20 25 Active Blood Glucose Monitoring Suppl (FreeStyle Lite) w/Device kitIndications: Type 2 diabetes mellitus with stage 3b chronic kidney disease, with long-term current use of insulin ([facility]) 1 Dose by Other route 3 times daily. USE TO TEST BLOOD SUGAR THREE TIMES A DAY 1 kit 05/19/20 25 Active TRUEplus Lancets 33G miscIndications :Type 2 diabetes mellitus with stage 3b chronic kidney disease, with long-term current use of insulin ([facility]) USE TO TEST BLOOD SUGAR THREE TIMES A DAY 100 each 05/19/20 25 Active pantoprazole (Protonix) 40 MG EC tablet Take 1 tablet (40 mg) by mouth before breakfast. Do not crush, chew, or split. 90 tablet 3 07/12/20 25 026 Active Tirzepatide (Mounjaro) 2.5 MG/0.5ML solution auto-injector Inject 2.5 mg under the skin 1 (one) time per week. 2 mL 11 07/20/20 25 Active Blood Glucose Monitoring Suppl (Curverideryle Crowdery) kit Check blood glucose 3 times daily and as needed 1 kit 07/20/20 25 Active Active Problems Problem Noted Date Diagnosed Date Gas pain 04/22/2025 Assessment & Plan (04/22/2025 3:38 PM EDT): - Patient requests simethicone tablet form not capsule. Pulmonary nodule 02/07/2025 Coronary artery disease 01/16/2025 Assessment & Plan (07/20/2025 2:46 PM EDT): -Disability Advocate[place] [facility] seen in May 2025 -11/30/2024- Cardiac catheterization showed [id number] distal LAD disease with severe distal stenosis [...] Assessment & Plan (04/12/2025 1:39 PM EDT): -Disability Advocate[place] [facility] seen in Dec 2024 -11/30/2024- Cardiac catheterization showed [id number] distal LAD disease with severe distal stenosis [...] Assessment & Plan (01/21/2025 12:33 PM EDT): -Disability Advocate: [facility] [place] seen in Dec 2024 -11/30/2024- Cardiac catheterization showed [id number] distal LAD disease with severe distal stenosis [...] and supportive care - follow up with numerical control machine machinist as scheduled Assessment & Plan (07/23/2024 9:02 [...] Plan (01/17/2025 11:35 AM EDT): - seeing numerical control machine machinist - continue judicious use of gabapentin 100 mg tid - she wants to switch to tablet. Only tablets available are 600 and 800 mg tablet - will have her take 1/4 of 600 mg tablet and take bid; or will check with pharmacist if she can open the capsule and take inside content Assessment & Plan (07/23/2024 5:36 AM EDT): - seeing numerical control machine machinist - continue judicious use of gabapentin 100 mg tid - she wants to switch to tablet. Only tablets available are 600 and 800 mg tablet - will have her take 1/4 of 600 mg tablet and take bid; or will check with pharmacist if she can open the capsule and take inside content Assessment & Plan (01/04/2024 3:36 PM EST): - seeing numerical control machine machinist - continue judicious use of gabapentin Assessment & Plan (10/03/2023 9:48 AM EST): - seeing numerical control machine machinist - waiting for diabetic orthotics Adjustment disorder [...] hyperkalemia and cough -Currently prescribed Dapagliflozin from web application developer Assessment & Plan (04/22/2025 3:19 PM EDT): -Goal BP < 130/80 per ACC/AHA guideline -BP at goal today -Continue working on lifestyle modifications -Recommended self-monitoring BP. -Pt has tried lisinopril for renal protection, not for HTN, in the past, but it was discontinued due to hyperkalemia and cough -Currently prescribed Dapagliflozin from web application developer Assessment & Plan (07/20/2024 1:50 PM EDT): -Goal BP < 140/90 per JNC-8 and < 130/80 per ACC/AHA guideline (Treatment threshold >= 140/90 ) -BP at goal today -Continue working on lifestyle modifications -Recommended self-monitoring BP. -Pt has tried lisinopril for renal protection, not for HTN, in the past, but it was discontinued due to hyperkalemia and cough -Currently prescribed Dapagliflozin from web application developer -Follow up in 3-6 mo, sooner [...] hyperkalemia and cough -Currently prescribed Dapagliflozin from web application developer -Follow up in 3-6 mo, sooner [...] neuropathy; osteoarthritis; plantar fasciitis - Following with numerical control machine machinist Assessment & Plan (06/07/2023 3:44 PM EDT): - left foot worse than right - multifactorial: Diabetic peripheral neuropathy; osteoarthritis; plantar fasciitis - referred to a numerical control machine machinist; waiting for an appt - check the [...] want to try any GLP-1 agonist. -Patient Manager Procurement prescribed Farxiga. Patient is taking this medication [...] want to try any GLP-1 agonist. -Patient Manager Procurement prescribed Farxiga. Patient is no longer taking [...] (01/04/2024 3:42 PM EST): - followed by [facility] - no anatomical pancreatic abnormality on MRI in Dec 2022 - continue vegan / plant-based pancreatic enzyme Assessment & Plan (10/03/2023 9:49 AM EST): - followed by [facility] - no anatomical pancreatic abnormality on MRI in Dec 2022 - continue vegan / plant-based pancreatic enzyme Assessment & Plan (06/07/2023 3:30 PM EDT): - followed by [facility] - no anatomical pancreatic abnormality on MRI in Dec 2022 - continue vegan / plant-based pancreatic enzyme Assessment & Plan (02/24/2023 5:30 AM EDT): - followed by [facility] - no anatomical pancreatic abnormality on MRI in Dec 2022 - continue vegan / plant-based pancreatic enzyme Assessment & Plan (12/18/2022 6:12 PM EST): - followed by [facility] - continue vegan pancreatic enzyme Allergic [...] Plan (07/20/2025 2:53 PM EDT): -Followed by [facility], last seen 01/03/25 -EGD and Colonoscopy on 12/24/21; showed Tubular Adenoma, she was recommended to repeat in 3 years. - pt has been using castor oil - continue trying fiber-rich diet and increasing physical activity as tolerated. - continue Senakot as prescribed - Being scheduled for EGD and colonoscopy in near future. Preop is already done by tire servicer. Patient was advised to return to hold the clopidogrel 5 days prior to procedure Assessment & Plan (01/21/2025 12:33 PM EDT): -Followed by [facility], last seen 01/03/25 -EGD and Colonoscopy on 12/24/21; showed Tubular Adenoma, she was recommended to repeat in 3 years. - pt has been using castor oil - continue trying fiber-rich diet and increasing physical activity as tolerated. - continue Senakot as prescribed Assessment & Plan (07/20/2024 1:50 PM EDT): -Followed by [facility], last seen 08/06/22 -EGD and Colonoscopy on 12/24/21; showed Tubular Adenoma, she was recommended to repeat in 3 years. - pt has been using castor oil - continue trying fiber-rich diet and increasing physical activity as tolerated. - continue Senakot as prescribed Assessment & Plan (01/04/2024 3:38 PM EST): -Followed by [facility], last seen 08/06/22 -EGD and Colonoscopy on 12/24/21; showed Tubular Adenoma, she was recommended to repeat in 3 years. - pt has been using castor oil - continue trying fiber-rich diet and increasing physical activity as tolerated. - continue Senakot as prescribed Assessment & Plan (06/07/2023 3:33 PM EDT): -Followed by [facility], last seen 08/06/22 -EGD and Colonoscopy on 12/24/21; showed Tubular Adenoma, she was recommended to repeat in 3 years. - pt has been using castor oil - continue trying fiber-rich diet and increasing physical activity as tolerated. - continue Senakot as prescribed Assessment & Plan (12/18/2022 6:26 PM EST): -Followed by [facility], last seen 08/06/22 -EGD and Colonoscopy on 12/24/21; showed Tubular Adenoma, she was recommended to repeat in 3 years. - pt has been using castor oil - continue trying fiber-rich diet and increasing physical activity as tolerated. - continue Senakot as prescribed Chronic kidney disease, stage III (moderate) (CM S/HCC) 10/12/2022 Assessment & Plan (07/11/2025 11:30 AM EDT): - Manager Procurement, Dr. Marci Hylton. Last seen on 01/25/25 - Metformin is discontinued, Dr. Tsai started her on Dapagliflozin (Farxiga) - Previously on Lisinopril, but was disccontinued due to cough / K - Avoid nephrotoxic drugs, including NSAID (no more Aleve) - Renal dose meds Assessment & Plan (04/12/2025 1:40 PM EDT): - Manager Procurement, Dr. Marci Hylton. Last seen on 01/25/25 - Metformin is discontinued, Dr. Tsai started her on Dapagliflozin (Farxiga) - Previously on Lisinopril, but was disccontinued due to cough / K - Avoid nephrotoxic drugs, including NSAID (no more Aleve) - Renal dose meds Assessment & Plan (01/21/2025 12:32 PM EDT): - Manager Procurement, Dr. Marci Hylton. Last seen on 01/25/25 - Metformin is discontinued, Dr. Tsai started her on Dapagliflozin (Farxiga) - Previously on Lisinopril, but was disccontinued due to cough / K - Avoid nephrotoxic drugs, including NSAID (no more Aleve) - Renal dose meds Assessment & Plan (07/23/2024 5:41 AM EDT): - Manager Procurement, Dr. Marci Hylton. - Metformin is discontinued, Dr. Tsai started bryn ib Dapagliflozin (Farxiga) - Previously on Lisinopril, but was disccontinued due to cough / K - Avoid nephrotoxic drugs, including NSAID (no more Aleve) - Renal dose meds Assessment & Plan (01/04/2024 3:45 PM EST): - Manager Procurement, Dr. 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 Tsai is prescribing Dapagliflozin (Farxiga) - Previously on Lisinopril, but was disccontinued due to cough / K - Avoid nephrotoxic drugs - Renal dose meds Assessment & Plan (10/03/2023 9:41 AM EST): - Manager Procurement, Dr. 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 Tsai rx Farxiga for DM management - Previously on Lisinopril, but was disccontinued due to cough / K - Avoid nephrotoxic drugs - Renal dose meds - Pt was advised that atorvastatin is not nephrotoxic and it will lower her ASCVD risk. Pt continues to decline statin therapy. Assessment & Plan (06/07/2023 3:34 PM EDT): - Manager Procurement, Dr. 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 [...] & Plan (02/24/2023 5:37 AM EDT): - Manager Procurement, Dr. Tsai - Lab: 12/24/22 BUN 28, Scr 2.0, eGFR 27 - Metformin is discontinued, Dr. Tsai rx Farjaden for DM management - Previously on Lisinopril, but was disccontinued due to cough / K - Avoid nephrotoxic drugs - Renal dose meds - Pt was advised that atorvastatin is not nephrotoxic and it will lower her ASCVD risk. Pt continues to decline statin therapy. Assessment & Plan (12/18/2022 6:31 PM EST): - Manager Procurement, Dr. 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 Tsai rx Pegyg for DM management - Previously on Lisinopril, but was disccontinued due to cough / K - Avoid nephrotoxic drugs - Renal dose meds - Pt was advised that atorvastatin is not nephrotoxic and it will lower her ASCVD risk. Pt continues to decline statin therapy. Gastroesophageal reflux disease 10/12/2022 Assessment & Plan (07/20/2025 2:52 PM EDT): -s/p EGD 12/24/21 -followed by [facility] - Patient has been taking omeprazole tablets, but recently it was switched to capsule. Patient is unable to take capsule because it contains porcine product. -since patient is on clopidogrel, changed to pantoprazole tablet. - Being scheduled for EGD Assessment & Plan (04/22/2025 3:36 PM EDT): -s/p EGD 12/24/21 -followed by [facility] -refill famotidine as requested. Patient takes prn. -since patient is on clopidogrel, will check whether patient is taking omeprazole or pantoprazole. Assessment & Plan (01/04/2024 3:42 PM EST): -s/p EGD 12/24/21 -followed by [facility] -continue omeprazole 40mg daily -previously tried pantoprazole and lansoprazole; pt prefers omeprazole. -previously prescribed famotidine. Max dose for her renal function is 20 mg daily. Pt does not take it regularly. Assessment & Plan (10/03/2023 9:50 AM EST): -s/p EGD 12/24/21 -followed by [facility] -continue omeprazole 40mg daily -previously tried pantoprazole and lansoprazole; pt prefers omeprazole. -previously prescribed famotidine. Max dose for her renal function is 20 mg daily. Pt does not take it regularly. Assessment & Plan (06/07/2023 3:33 PM EDT): -s/p EGD 12/24/21 -followed by [facility] -continue omeprazole 40mg daily -previously tried pantoprazole and lansoprazole; pt prefers omeprazole. -previously prescribed famotidine. Max dose for her renal function is 20 mg daily. Pt does not take it regularly. Assessment & Plan (12/18/2022 6:28 PM EST): -s/p EGD 12/24/21 -followed by [facility] -continue prantoprazol 40mg daily -previously prescribed famotidine. Max dose for her renal function is 20 mg daily. Irritable bowel syndrome 10/12/2022 Assessment & Plan (07/20/2025 2:50 PM EDT): - followed by [facility] - continue current treatment plan per GI - low FODMAP diet - pt is prescribed simethicone, Sennakot, citrucel, but does not like taking it regularly Assessment & Plan (07/20/2024 1:50 PM EDT): - followed by [facility] - continue current treatment plan per GI - low FODMAP diet - pt is prescribed simethicone, Sennakot, citrucel, but does not like taking it regularly Assessment & Plan (01/04/2024 3:42 PM EST): - followed by [facility] - continue current treatment plan per GI - low FODMAP diet - pt is prescribed simethicone, Sennakot, citrucel, but does not like taking it regularly Assessment & Plan (10/03/2023 9:49 AM EST): - followed by [facility] - continue current treatment plan per GI - low FODMAP diet - pt is prescribed simethicone, Sennakot, citrucel, but does not like taking it regularly Assessment & Plan (06/07/2023 3:32 PM EDT): - followed by [facility] - continue current treatment plan per GI - low FODMAP diet - pt is prescribed simethicone, Sennakot, citrucel, but does not like taking it regularly Assessment & Plan (12/18/2022 6:27 PM EST): - followed by [facility] - continue current treatment plan per [...] Disliked Freestyle lite. Will switch to Freestyle [place] Treatment Hx -Pt has taken dulaglutide and [...] - Prescribed dapagliflozin (Farxiga) from PCP and web application developer, questionable adherence - Discussed about CGM, which she does not want to use it at this time Treatment Hx -Pt has taken GLP-1 agonists and had significant side effects, mainly GI. Pt states she does not want to try any GLP-1 agonist. -Patient Manager Procurement prescribed Farxiga. Patient is taking this medication [...] - Prescribed dapagliflozin (Farxiga) from PCP and web application developer, questionable adherence - Discussed about CGM, which she does not want to use it at this time Treatment Hx -Pt has taken GLP-1 agonists and had significant side effects, mainly GI. Pt states she does not want to try any GLP-1 agonist. -Patient Manager Procurement prescribed Farxiga. Patient is taking this medication [...] want to try any GLP-1 agonist. -Patient Manager Procurement prescribed Farxiga. Patient is taking this medication [...] want to try any GLP-1 agonist. -Patient Manager Procurement prescribed Farxiga. Patient is no longer taking [...] want to try any GLP-1 agonist. -Patient Manager Procurement prescribed Farxiga. Patient is no longer taking [...] want to try any GLP-1 agonist. -Patient Manager Procurement prescribed Farxiga. Patient is no longer taking [...] want to try any GLP-1 agonist. -Patient Manager Procurement prescribed Farxiga. Patient is no longer taking [...] Encounters Date Type Department Care Team Description 08/17/2025 Orders Only GENERIC EXTERNAL DATA DEPARTMENT Provider, Generic External Data 07/22/2025 Orders Only GENERIC EXTERNAL DATA DEPARTMENT Provider, Generic External Data 07/12/2025 3:30 PM EDT Office Visit [facility] [address] [place] [address] Maranda Serna MD Type 2 diabetes mellitus with stage 3b chronic kidney disease, with long-term current use of insulin ([facility]) (Primary Dx); Elevated blood pressure reading in office without diagnosis of hypertension; Dyslipidemia; 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 ([facility]); Type 2 diabetes mellitus with hyperglycemia, with long-term current use of insulin ([facility]); Stage 3b chronic kidney disease ([facility]); Anemia due to stage 3b chronic kidney disease ([facility]); Class 2 severe obesity due to excess calories with serious comorbidity and body mass index (BMI) of 36.0 to 36.9 in adult ([facility]); Gastroesophageal reflux disease, unspecified whether esophagitis present; Irritable bowel syndrome with constipation; Chronic idiopathic constipation; Obstructive sleep apnea syndrome 07/12/2025 Travel 07/01/2025 Orders Only [facility] External Provider, [facility] 05/27/2025 Results Follow-Up [facility] [address] [place] [address] Maranda Serna MD BI Mammogram Screening Tomosynthesis Bilateral, US Thyroid from Last 3 Months Immunizations Immunization Administration [...] 4, 09/23/2023, 10/14/2022, Additional history exists Diabetes: Foot Exam 07/19/2025 07/19/2024 Diabetes: Hemoglobin A1C 10/11/2025 025, 04/12/2025, 01/17/2025, Additional history exists Alcohol/Substance Use Screening 01/17/2026 01/17/2025 Depression Screening 01/17/2026 01/17/2025, 01/18/20 25 SDOH Screening 04/12/2026 04/12/2025 Tobacco Screening 07/12/2026 07/12/2025 Lipid Panel 07/22/2026 07/22/2025, 05/1 01/2025, 12/30/2023, Additional history exists Mammogram 05/16/2027 05/16/2025, 04/0 12/2023, 08/21/2022 DTaP/Tdap/Td Vaccines (3 - Td or [...] Procedure Name Priority Date/Time Associated Diagnosis Comments GLUCOSE, WHOLE BLOOD Routine 08/17/2025 1:39 PM EDT IMMUNOGLOBULIN E Routine 07/22/2025 9:40 AM EDT TSH W/REFLEX TO FT4 Routine 07/22/2025 9 [...] PM EDT Breast cancer screening by mammogram HM COLONOSCOPY Routine 07/07/2022 from Last 3 Months or Most Recently Relevant to Health Maintenance Results * (ABNORMAL) Glucose, Whole Blood (08/17/2025 1:39 PM EDT) Glucose, Whole Blood 314(H) 60 - 115 mg/dL [facility] Comment:METER #: [id number] 0Testing performed in the Endocrinology Department [address] , [address], [facility]. 08/17/2025 1:39 PM EDT 08/17/2025 1:44 PM EDT us Generic External Data Provider LAB BLOOD ORDERAB LES Final Result [facility] [address] [place] [phone] * TSH with Reflex to Free T4 (07/22/2025 9:40 AM EDT) TSH reflex Free T4 3.28 0.32 - 4.0 uIU/mL [facility] 07/22/2025 9:40 AM EDT 07/22/2025 9:46 AM EDT us Generic External Data Provider LAB BLOOD ORDERAB LES Final Result [facility] [address] [place] [address] [phone] * (ABNORMAL) CBC auto differential (07/22/2025 9:40 AM EDT) White Blood Count 7.2 4.8 - 10.8 X10*3/uL [facility] Red Blood Count 4.00(L) 4.20 - 5.50 X10*6/uL [facility] Hemoglobin 11.5(L) 12.0 - 16.0 g/dl [facility] Hematocrit 37.7 37.0 - 47.0 % [facility] Mean Corpuscular Volume 94.3 80.0 - 98.0 fL [facility] Mean Corpuscular Hemoglobin 28.8 27.0 - 33.0 pg [facility] Mean Corpuscular HGB Conc 30.5(L) 31.0 - 35.0 g/dl [facility] Red Cell Distribution Width 14.1 11.0 - 16.0 % [facility] Platelet Count 266 160 - 400 X10*3/uL [facility] Mean Platelet Volume 9.7 9.4 - 12.3 fL [facility] Neutrophils Percent Auto 60.6 45 - 73 % [facility] Imm Gran Pct Auto 0.1 0.0 - 0.4 % [facility] Lymphocytes Percent Auto 28.9 20 - 40 % [facility] Monocytes Percent Auto 7.6 2 - 11 % [facility] Eosinophils Percent Auto 2.1 0 - 4 % [facility] Basophils Percent Auto 0.7 0 - 2 % [facility] NRBC Pct Auto 0.0 0.0 - 0.2 /100WBC [facility] Neutrophils Absolute Auto 4.4 2.0 - 8.3 x10*3/uL [facility] Imm Gran Abs Auto 0.01 0.00 - 0.03 X10*3/uL [facility] Lymphocytes Absolute Auto 2.1 1.2 - 4.9 X10*3/uL [facility] Monocytes Absolute Auto 0.6 0.1 - 1.2 X10*3/uL [facility] Eosinophils Absolute Auto 0.2 0.0 - 0.4 X10*3/uL [facility] Basophils Absolute Auto 0.1 0.0 - 0.2 X10*3/uL [facility] [facility] NRBC Abs Auto 0.000 0.0 - 0.012 X10*3/uL [facility] 07/22/2025 9:40 AM EDT 07/22/2025 9:46 AM EDT Generic External Data Provider LAB BLOOD ORDERAB LES Final Result Performing Organization Address [facility]/ZIP Co de Phone Number [facility] [address] [place] [phone] * Immunoglobulin E (07/22/2025 9:40 AM EDT) Pathologist [facility] Immunoglobulin E 3 <ZL=405 kU/L [facility] Comment:THIS TEST WAS PERFOR MED AT:[employer] [place] [id number] CRONIN MD 07/22/2025 9:40 AM EDT 07/22/2025 9:46 AM EDT us Generic External Data Provider LAB BLOOD ORDERAB LES Final Result Performing Organization Address [facility]/ZIP Co de Phone Number [facility] [address] [place] [address] [phone] * Lipid Panel, Standard (07/22/2025 9:40 AM EDT) Triglycerides 81 <150 mg/dL [facility] Comment:Desirable Triglyceri de: less than 150 mg/dLBorderline High Triglyceride 150-199 mg/dLHigh Triglyceride: 200-499 mg/dLVery High Triglyceride: greater than or equal to 5OO mg/dL Cholesterol 140 <200 mg/dL [facility] Comment:Desirable Cholestero l: less than 200 mg/dLBorderline High Cholesterol: 200-239 mg/dLHigh Cholesterol: greater than 239 mg/dL LDL Cholesterol Calculated 69 <100 mg/dL [facility] Comment:Desirable LDL: less than 100 mg/dLNear Optimal/Above Optimal LDL: 110- 129 mg/dLBorderline High LDL: 130-159 mg/dLHigh LDL: 160-189 mg/dLVery High LDL: greater than or equal to 190 mg/dL HDL Cholesterol 55 >40 mg/dL [facility] Comment:Desirable HDL: great er than 40 mg/dL Note: This HDL assay may give artificially low results in patients with liver disease. 07/22/2025 9:40 AM EDT 07/22/2025 9:46 AM EDT us Generic External Data Provider LAB BLOOD ORDERAB LES Final Result [facility] [address] [place] [phone] * (ABNORMAL) POCT HGB A1C (07/12/2025 3:25 PM EDT) Pathologist [facility] Hemoglobin A1C 7.9(A) 4.0 - 5.7 % QC Media Lot # [id number] Lot# Expiration Date Blood 07/12/2025 3:25 PM EDT Maranda Serna MD POINT OF CARE TEST ENTER/EDIT OR DERABLES Final Result * (ABNORMAL) POCT Glucose (07/12/2025 3:24 PM EDT) Pathologist [facility] Glucose Blood, POC 260(A) 60 - 200 mg/dL QC Media Lot # [id number] Lot# Expiration Date 727, Blood Capillary blood specimen / Unknown 07/12/2025 3:24 PM EDT us Maranda Serna MD POINT OF CARE TEST ENTER/EDIT OR DERABLES Final Result * US Abdomen Limited (07/01/2025 9:14 AM EDT) Anatomical Region Laterality Modality Abdomen Ultrasound 07/01/2025 9:14 AM EDT Narrative 07/01/2025 9:43 AM EDT [address] [address] Ultrasound Report Signed Patient: Ese Mendoza MR#: [id number] 8 : 1960 Acct:[id number] Age/Sex: 64 / F ADM Date: 07/01/25 Loc: HO.US Attending Dr: Zoe JOLLEY Ordering Physician: Zoe Montalvo Date of Service: 07/01/25 Procedure(s): US abdomen limited Accession Number(s): [id number] cc: Zoe Montalvo; Maranda Serna MD EXAMINATION: [...] in OV> 07/01/25939 DD/ 3 TD/TT: 07/01/25919 [facility]: Procedure Note Donotuseinterpreter, Image - 07/01/[address] [address] Ultrasound Report Signed Patient: Ese MendozaMR#: [id number] 8 : 1960Acct:[id number] Age/Sex: 64 / FADM Date: 07/01/25 Loc: HO.US Attending Dr: Zoe JOLLEY Ordering Physician: Zoe Montalvo Date of Service: 07/01/25 Procedure(s): US abdomen limited Accession Number(s): [id number] cc: Zoe Montalvo; Maranda Serna MD EXAMINATION: [...] MDin OV> 07/01/25939 DD/ 3 TD/TT: 07/01/25919 [facility]: [facility] External Provider IMG US PROCEDURES Final Result * US Thyroid (06/06/2025 1:04 PM EDT) Anatomical Region Laterality Modality Head, Neck Ultrasound 06/06/2025 1:04 PM EDT Narrative 06/06/2025 1:50 PM EDT [place] [address] Ultrasound Report Signed Patient: Ese Mendoza MR#: [id number] 8 : 1960 Acct:[id number] Age/Sex: 64 / F ADM Date: 06/06/25 Loc: HO.US Attending Dr: Maranda Serna MD Ordering Physician: Maranda Serna MD Date of Service: 06/06/25 Procedure(s): US thyroid Accession Number(s): [id number] cc: Maranda Serna MD EXAMINATION: US THYROID [...] than or equal to 1 cm: 1. Forklift Supervisor nodules are described as follows: 1. Location: [...] 06/06/25 1347 DD/ 1304 TD/TT: 06/06/25 1316 [facility]: Procedure Note Donotuseinterpreter, Image - 06/06/[address] [address] Ultrasound Report Signed Patient: Ese Mendoza#: [id number] 8 : 1960Acct:[id number] Age/Sex: 64 / FADM Date: 06/06/25 Loc: HO.US Attending Dr: Maranda Serna MD Ordering Physician: Maranda Serna MD Date of Service: 06/06/25 Procedure(s): US thyroid Accession Number(s): [id number] cc: Maranda Serna MD EXAMINATION: US THYROID [...] than or equal to 1 cm: 1. Forklift Supervisor nodules are described as follows: 1. Location: [...] Reyes MD Signed By: <Electronically signed by Brnadon Gonzales MDin OV> 06/06/25 1347 DD/ 1304 TD/TT: 06/06/25 1316 [facility]: us Maranda Serna MD IMG US PROCEDURES Final Result * BI Mammogram Screening Tomosynthesis Bilateral (05/16/2025 12:30 PM EDT) Anatomical Region Laterality Modality Breast Bilateral Mammography 05/16/2025 12:3 0 PM EDT Narrative 05/26/2025 7:54 PM EDT [facility] [address] [place], [place] [address] Mammography Report Signed with Addenda Patient: Ese Mendoza MR#: [id number] 8 : 1960 Acct:[id number] Age/Sex: 64 / F ADM Date: 05/16/25 Loc: HO.MAMMO Attending Dr: Maranda Serna MD Ordering Physician: Maranda Serna MD Results: 2Benign F indings Date of Service: 05/16/25 Follow Up: 1 Year From Orig ina Mammogram Procedure(s): MM tomosynthesis screening BI Accession Number(s): [id number] cc: Maranda Serna MD ADDENDUM ADDENDUM #2 [...] OV> 05/26/251950 DD/ 1230 TD/TT: 05/16/25 1245 [facility]: Procedure Note Donedwigeter, Image - [facility] [address] [place] [address] Mammography Report Signed with Addenda Patient: Ese Mendoza#: [id number] 8 : 1960Acct:[id number] Age/Sex: 64 / FADM Date: 05/16/25 Loc: HO.MAMMO Attending Dr: Maranda Serna MD Ordering Physician: Maranda Serna MDResults: 2Benign F indings Date of Service: 05/16/25Follow Up: 1 Year From Orig ina Mammogram Procedure(s): MM tomosynthesis screening BI Accession Number(s): [id number] cc: Maranda Serna MD ADDENDUM ADDENDUM #2 [...] 05/26/25 195 DD/ 1230 TD/TT: 05/16/25 1245 [facility]: Maranda Serna MD IMG BI PROCEDURES Edited Result - Final * (ABNORMAL) Colonoscopy (07/07/2022) Colonoscopy Abnormal(A ) Normal [facility] External Provider HEALTH MAINTENANCE Final Result from Last 3 Months or Most Recently Relevant to Health Maintenance Insurance C3 Care Teams Senior Application Security Consultant Relationship Specialty Start Date End Date Maranda Serna MD [address] [place] [phone] PCP - General Family Medicine 08/01/21
--- OUTSIDE RECORDS SUMMARY | 2025-08-25 09:13 | XMS_ITS | Clinical Summary ---
Author Organization [facility] Address [address] [place] [address] Phone Care Team Providers Care Radio Director Name Role Phone Machelle Swann MD Primary Care Provider [phone] Allergies Active Allergy Reactions Criticality Noted Date [...] 42 mcg (0.06 %) nasal spray 1 [place] by Nasal route. 09/24/20 Active omega-3 acid [...] osteoarthritis; plantar fasciitis - referred to a machine maintenance servicer; waiting for an appt - check the [...] and cough -Currently prescribed Dapagliflozin from health education coordinator -Follow up in 3-6 mo, sooner [...] Last Assessment & Plan: - followed by [facility] - no anatomical pancreatic abnormality on MRI in Dec 2022 - continue vegan / plant-based pancreatic enzyme Right knee pain 12/16/2022 Allergic rhinitis 10/12/2022 Anemia 10/12/2022 Overview (08/25/2024): Last Assessment & Plan: - likely due to chronic diseaes - Hx iron infusion - 12/24/22 Hgb 11.7, Hematocrit 35.7 Chronic idiopathic constipation 10/12/2022 Overview (08/25/2024): Last Assessment & Plan: -Followed by [facility], last seen 08/06/22 -EGD and Colonoscopy on 12/24/21; showed Tubular Adenoma, she was recommended to repeat in 3 years. - pt has been using castor oil - continue trying fiber-rich diet and increasing physical activity as tolerated. - continue Senakot as prescribed Chronic kidney disease, stag e III (moderate) ([facility] V24, [facility] V28) 10/12/2022 Overview (08/25/2024): Last Assessment & Plan: - Personal Fitness Manager, Dr. 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 Tsai is prescribing Dapagliflozin (Farxiga) - Previously on Lisinopril, but was disccontinued due to cough / K - Avoid nephrotoxic drugs - Renal dose meds Gastroesophageal reflux disease 10/12/2022 Overview (08/25/2024): Last Assessment & Plan: -s/p EGD 12/24/21 -followed by [facility] -continue omeprazole 40mg daily -previously tried pantoprazole and lansoprazole; pt prefers omeprazole. -previously prescribed famotidine. Max dose for her renal function is 20 mg daily. Pt does not take it regularly. Irritable bowel syndrome 10/12/2022 Overview (08/25/2024): Last Assessment & Plan: - followed by [facility] - continue current treatment plan per GI - low FODMAP diet - pt is prescribed simethicone, Sennakot, citrucel, but does not like taking it regularly Osteopenia 10/12/2022 Atrial fibrillation ([facility] V24, [facility] V28) 0 12/25/2021 Cobalamin deficiency 12/25/2021 Diabetic retinopathy ([facility] V24, [facility] V28) 12/25/2021 Nephrolithiasis 12/25/2021 Overview (08/25/2024): Last Assessment & Plan: - seen by urologist, last visit on Vitamin D deficiency 12/25/2021 Diabetic peripheral neuropat hy associated with type 2 diabetes mellitus ([facility] V24, [facility] V28) 11/22/2019 Nonrheumatic mitral valve regurgitation 11/09/20 Nonrheumatic tricuspid valve regurgitation 11/09 Obstructive sleep apnea syndrome 11/09/2019 Overview (08/25/2024): Last Assessment & Plan: - Pt does not feel comfortable with CPAP SOB (shortness of breath) 11/09/2019 Type 2 diabetes mellitus without complication Overview (08/10/2025): 08/10/25 Regulatory IMO Update Arthritis 03/03/2019 Chronic cough 01/26/2019 Moderate persistent asthma with acute exacerbati on 01/26/2019 Pulmonary hypertension ([facility] V24, [facility] V28 ) 12/31/2018 Pulmonary arterial hypertension ([facility] V24, [facility] V28) 11/19/2018 Ulcer of foot ([facility] V24, [facility] V28) 011 Encounters Date Type Department Care Team Description 08/18/2025 3:00 PM EDT Office Visit Orthopedic Surgery - [place] [address] [place] [phone] Damien Centeno DPM Controlled type 2 diabetes mellitus with diabetic polyneuropathy, without long-term current use of insulin ([facility] V24, [facility] V28) (Primary Dx); Pain in toes of both feet; Arthritis of both midfeet; Capsulitis of metatarsophalangeal (MTP) joint of right foot; Capsulitis of metatarsophalangeal (MTP) joint of left foot; Onychomycosis; Callus from Last 3 Months Immunizations Immunization Administration Dates Next Due Pfizer SARS-CoV-2 COVID-19, [...] Care Team (Late st Contact Info) Description 10/20/2025 2:30 PM EST Office Visit Orthopedic Surgery - [place] [address] [phone] Damien Centeno, VENESSA [address] [address] Health Maintenance Due Date Last Done Comments Breast Cancer Screening 1960 Colorectal Cancer Screening: Colonoscopy 1960 Diabetes: Annual Foot Exam 1970 Diabetes: Annual Retina Eye Exam 1970 Zoster Vaccines (1 of 2) 1979 Cervical Cancer Screening: Pap Smear 1981 RSV Immunization Adult Patients (1 - Risk 50-74 years 1-dose series) 2010 Diabetes: Annual Urine Albumin-Creatinine Ratio (uACR) 12/10/2023 07/24/2022, 02/09/2019, 02/09/2019 HIV Screening 12/10/2023 Hepatitis C Screening 12/10/2023 Social Influencers of Health Screening 12/10/2023 Depression Screening 11/10/2024 COVID-19 Vaccine (5 - Pfizer risk season) 2025 08/06/2024, 08/31/2021, 03/05/2021, Additional history exists Influenza Vaccine (#1) 2025 , 09/23/2023, 10/14/2022, Additional history exists Diabetes: Blood Sugar Control Test (HGBA1C) 01/09/2026 07/12/2025, 04/12/2025, 01/17/2025, Additional history exists Diabetes: Annual GFR (Glomerular Filtration Rate) 04/22/2026 04/22/2025, 03/22/2025, 12/30/2023, Additional history exists Hypertension/CHF/CAD Annual BMP Blood Test 04/22/2026 04/22/2025, 03/22/2025, 12/30/2023, Additional history exists Cholesterol Screening (Lipid Panel) 07/22/2030 07/22/2025, 12/30/2023 DTaP,Tdap,and Td Vaccines (3 - Td [...] Test (12/30/2023) Annual BMP Blood Test [facility] Provider HEALTH MAINTENANCE Final Result * Hemoglobin A1c (12/30/2023) Pathologist [facility] Hemoglobin A1C 0.0 % Comment:no interpretation Blood Venous blood specimen / Unknown Result [facility] Provider LAB BLOOD ORDERABLES Machelle l Result * Lipid panel (12/30/2023) Pathologist [facility] Triglycerides 0 mg/dL Comment:no interpretation Cholesterol 0 mg/dL Comment:no interpretation HDL 0 mg/dL Comment:no interpretation LDL Cholesterol 0 mg/dL Comment:no interpretation Blood Venous blood specimen / Unknown Result [facility] Provider LAB BLOOD ORDERABLES Machelle l Result * Urine Albumin Creatinine Ratio (07/24/2022) Pathologist [facility] Urine Albumin Creatinine Ratio Abstract[facility] Provider HEALTH MAINTENANCE Final Result from Last 3 Months or Most Recently Relevant to Health Maintenance Insurance MEDICAID - [place] Care Teams Radio Director Relationship Specialty Start Date End Date Machelle Swann MD [address] [place] [address] [place] [address] PCP - General 10/15/12
--- OUTSIDE RECORDS SUMMARY | 2025-08-25 09:13 | XMS_ITS | Encounter Summary ---
Author Organization [employer] Address [address] [facility] [address] [place] [address] Care Team Providers Care Wad Impregnator Name Role Phone Maranda Serna MD Primary Care Provider [phone] Reason for Visit * Reason Comments Med Refill Encounter Details Date Type Department Care Team ([facility] st Contact Info) Description 01/12/[address] [facility] [address] [place], [place] [phone] Yesica Naylor MD [address] [place] [address] Social History Tobacco Use Types Packs/Day Years [...] documented as of this encounter Care Teams Wad Impregnator Relationship Specialty Start Date End Date Maranda Serna MD [address] [place] [phone] PCP - General Family Medicine 08/01/21 documented as of this encounter
--- OUTSIDE RECORDS SUMMARY | 2025-08-25 09:13 | XMS_ITS | Clinical Summary ---
Author Organization [facility] Address [address] [place] [address] Care Team Providers Care Preboarder Name Role Phone Viet Sánchez Unavailable [phone] Viet Sánchez Primary Care Provider [phone] Allergies Active Allergy Reactions Criticality Noted Date [...] Active Problems Problem Noted Date Diagnosed Date MCC current use of insulin 11/22/2019 Diabetic peripheral [...] Rati o Urine 02/10/2020 02/09/2019 RSV Vaccine 50 years and old er and Patients (1 - Risk 60-74 years 1-dose series) 2020 Influenza Vaccine 06/10/2025 Colonoscopy 05/19/2030 05/19/2020 HIV Screening Completed 10/06/2018 Hepatitis B Vaccines Aged Out No long er eligible based on patient's age to complete this topic Medical Devices Implanted Type Area Rail Track Maintainer Device Identifier Shelf Expiration Date Model / Serial / Lot Sn60wf.[id number] Lens Iol 0 D +21.5 Brianda Mod L Bcnvx 13mm 6mm Posterior - [id number] Implanted:Qty: 1 on 01/27/2020 by Obinna Lorenzana MD at [facility], [place] [employer] [id number] .[id number] / [id number] / Procedures Procedure Name Priority Date/Time Associated [...] 12:01 PM 01/27/2020 12:06 PM Care Teams Preboarder Relationship Specialty Start Date End Date Viet Sánchez PA [address] [place] [address] PCP - General 06/18/18 Viet Sánchez PA [address] [place] [address] 06/18/18
--- OUTSIDE RECORDS SUMMARY | 2025-08-25 09:13 | XMS_ITS | Clinical Summary ---
Author Organization [facility] Address [address] [place] [address] Care Team Providers Care Distribution Transformer Assembler Name Role Phone Viet Sánchez Primary Care Provider [phone] Allergies Active Allergy Reactions Criticality Noted Date [...] visit in the company of her daughter Cralo. 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 - Will obtain lab work. Also curious to see radiographic imaging of the hands, feets, SI and lumbar spine. Will obtain interval history from asset administrator Karlee Le. - RTC in 4 months [...] polyneuropathy, with long-term current use of insulin ([facility]) POCT HEMOGLOBIN, A1C Routine 02/09/2019 8:10 AM EDT Type 2 diabetes mellitus with diabetic polyneuropathy, with long-term current use of insulin ([facility]) HIV COMBO ANTIGEN/ANTIBODY Routine 10/06/2018 3:59 PM EST Polyarthralgia from Last 3 Months or Most Recently Relevant to Health Maintenance Results * Microalbumin/creatinine ratio (02/09/2019 10:15 AM EDT) Microalbumin/Creat Ratio 20 2 - 20 mg/g Creat 02/09/2019 11:55 AM EDT [facility] Creatinine, Urine, Random 101 mg/dL 02/09/2019 11:55 AM EDT [facility] Comment: The laboratory does not have established reference ranges for this test. Interpretation of results is at the discretion of the ordering physician. Urine specimen (specimen) Urine specimen obtained by clean catch procedure / Unknown Non-blood Collection / Unknown 02/09/2019 10:15 AM EDT 02/09/2019 10:15 AM EDT us Keke Katz APRN LAB URINE ORDERABLES Final Res ult [facility] [address] [place] [address], [place] [phone] * POCT hemoglobin, A1c (02/09/2019 8:10 AM EDT) POCT Hemoglobin A1C 9.2 4.4 - 6.4 % Blood specimen (specimen) 02/09/2019 8:10 AM EDT us Keke Katz DRIER ATTENDANT POCT ORDERABLES NO CHARGE Machelle l Result * HIV combo antigen/antibody (10/06/2018 3:59 PM EST) HIV Combo AB/AG Negative Negative 10/06/2018 6:02 PM EST [facility] Blood specimen (specimen) Venous blood specimen / Unknown Venipuncture / Unknown 10/06/2018 3:59 PM EST 10/06/2018 3:59 PM EST Narrative [facility] - 10/06/2018 6:02 PM EST This test is a 4th generation HIV Antigen-Antibody Combination assay, using a chemiluminescent microparticle immunoassay, for the simultaneous qualitative detection of human immuno- deficiency virus (HIV) p24 antigen and antibodies to HIV type 1 (HIV-1) and/or HIV type 2 (HIV-2) in human serum or plasma. The [employer] Guest Service Manager HIV Ag/Ab Combo assay is intended [...] BLOOD ORDERABLES NO ST AT Final Result [facility] [address] [place] [address], [place] [phone] from Last 3 Months or Most Recently Relevant to Health Maintenance Insurance MEDICAID [place] D Care Teams Distribution Transformer Assembler Relationship Specialty Start Date End Date Viet Sánchez PA [address] [place] [address] PCP - General Family Medicine 07/22/18
--- OUTSIDE RECORDS SUMMARY | 2025-08-25 09:13 | XMS_ITS | Encounter Summary ---
Author Organization [facility] Address [address] [place] [address] Care Team Providers Care Material Handling Technician Name Role Phone Viet Sánchez Unavailable [phone] Viet Sánchez Primary Care Provider Encounter Details Date Type Department Care Team (Late st Contact Info) Description 11/09/2019 Prep for Surgery [facility] OPHTHALMOLOGY [address] [place] [address] Holland Hunt MD [address] [place] [address] Social History Tobacco Use Types Packs/Day Years [...] on filedocumented in this encounter Care Teams Material Handling Technician Relationship Specialty Start Date End Date Viet Sánchez PA [address] [place] [address] PCP - General 06/18/18 Viet Sánchez PA [address] [place] [address] 06/18/18 documented as of this encounter
--- OUTSIDE RECORDS SUMMARY | 2025-08-25 09:13 | XMS_ITS | Encounter Summary ---
Author Organization [facility] Address [address] [place] [address] Care Team Providers Care Boring And Filling Machine Operator Name Role Phone Viet Sánchez Unavailable [phone] Viet Sánchez Primary Care Provider Encounter Details Date Type Department Care Team (Late st Contact Info) Description 02/02/2020 Prep for Surgery [facility] OPHTHALMOLOGY [address] [place] [address] Holland Hunt MD [address] [place] [address] Social History Tobacco Use Types Packs/Day Years [...] on filedocumented in this encounter Care Teams Boring And Filling Machine Operator Relationship Specialty Start Date End Date Viet Sánchez PA [address] [place] [address] PCP - General 06/18/18 Viet Sánchez PA [address] [place] [address] 06/18/18 documented as of this encounter
--- OUTSIDE RECORDS SUMMARY | 2025-08-25 09:13 | XMS_ITS | Data Portability ---
Author Organization [place] - [facility], Allergy Address [address] [address] Care Team Providers Care Instrument Shop Supervisor Name Role Phone PINA PLATA Primary Care Provider Assessment No assessment recorded. Plan of Treatment Reminders Order Date Submit Date Provider Last Modified By Organization Details Last Modified Time Details Appointments None recorded. Lab None recorded. Referral None recorded. Procedures None recorded. Surgeries None recorded. Imaging CT, neck, soft tissue, w/ contrast - evaluate lingual tonsil hyperophy 2023 024 [facility] Radiology, [address] [place] [address], [address], 4 12:06:24 [place], modified barium swallow study 2023 024 [facility] Radiology, [address] [place] [address], [address], 4 15:47:26 Medication Orders None recorded. Patient TargetsNo targets recorded. Patient InstructionsNo instructions recorded. Reason for Referral None Reported. Results Created Date Observation Date Name Description Value Unit Range Abnormal Flag Note LastModifiedBy Organization Detail LastModifiedTime 07/29/20 24 07/29/2024 [place], modif ied izaiah mccabe ow study No observ ation record ed. reppsteiner [facility] [address], [place], [address], 08/02/2024 14:43:11 09/28/20 24 09/25/2024 MRI, head + neck + orbit s, w/wo contr ast [facility] Access ion Number : [id number] Patiyee t Name: Ese Mendoza Record Number : [id number] Date of : 1959 Date of Exam: 2023 Referr daniel scalesn: Vineet nicholas, Genaro [facility] [place] [address] [place] [address] Exam: MR Orbits , Face, Neck (C-/C+ ) CPT 84649 Room Descri ption: [place] [facility] 3T MRI of the soft [...] Electr onical ly Signed By: Vikram mike [facility] ([facility]) [address] [place], [address], 10/01/2024 16:52:47 Result Notes Documentation Provider Name and Address Organization Details Recorded Time Mri, Head + Neck + Orbits, W/wo Contrast : [facility] Accession Number: [id number] Patient Name: Ese Mendoza Date of : 1960 Date of Exam: 09-25-2024 Referring Physician: Genaro Pelaez [facility] [address] [address] Exam: MR Orbits, Face, Neck (C-/C+) CPT 72525 Room Description: [facility] 3T MRI of the soft tissues neck [...] quesada [place] - [facility] 10/01/2024 16:52:47 Problems Name Problem SNOMED Code Status Onset Date Resolution Date Notes Provider Name and Address Organization Details Recorded Time Oropharyngeal dysphagia 07015247 Active 2023 GENARO Barrett MD [address] [place] [address], [address] [facility] [place] - 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 4 12:01:43 Dysphagia 94395776 Active 2023 GENARO Barrett MD [address] [address], [place], [address], [facility] 4 12:02:30 Problem Notes None recorded. Procedures Surgical History Date Name Laterality Status Provider Name and Address Organization Details Recorded Time 07/01/2024 FFL_RE completed GENARO PELAEZ MD [address] [address], [place], [address], [facility] 07/01/2024 12:01:28 Imaging Results None recorded. Procedure Notes None recorded. Medical Equipment None Reported. Allergies Allergen ID Allergen Name Allergen Category Reaction Reaction Severity Criticality Documentation Date Start Date Code Code System Note Provider Name and Address Organization Details Recorded Time 718413 rubber, unspecifi ed environme nt,medica tion Not available Not available Not available 07/01/2024 Ashu quesada [place] [facility] 4 11:45:16 920202 pork allergeni c extract food,medi cation Not available Not available Not available 07/01/2024 11858 8 RxNorm Ashu quesada [place] [facility] 4 11:45:41 Medications Name Sig Start [...] Available Not Available No t Available FreeStyle [place] Lite kit USE DIRECTED TO TEST BLOOD [...] Available No t Available FreeStyle Doug 2 [place] USE DIRECTED active Not Available Not Available No t Available Vitals Date Recorded Body height Body mass index (BMI) Body weight Provider Name and Address Organization Details Last Updated DateTime 05/17/2025 157.48 cm 38.4 kg/m2 55839.4 g Shelly Ontiveros [place] - [facility] 05/17/2025 15:55:10 Date Recorded Body height Body mass index (BMI) Body weight Provider Name and Address Organization Details Last Updated DateTime 07/01/2024 157.48 cm 38.4 kg/m2 15607.4 g Ashu Gutiérrez [place] - [facility] 07/01/2024 11:54:39 Social History None recorded. Functional Status None recorded. Mental Status None recorded. Family History Nothing Reported. Medical History No medical history recorded. Gynecological HistoryNo gynecological history recorded. Obstetrics History GPAL:G 0 P 0 0 0 0 Past Encounters Encounter ID Performer Location Encounter Start Date Encounter Closed Date Diagnosis/Indication Diagnosis SNOMED-CT Code Diagnosis ICD10 Code Diagnosis IMO Codes Diagnosis Note [id number] GENARO PELAZE MD [facility] [address] [address] 07/01/2024 11:04:43 07/01/2024 12:01:09 Oropharyngeal dysphagia 00704553 R13.12 I recommend an MBS to better evaluate. 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 I will evaluate with a contrasted CT to make sure there are no tumors. Dysphagia 50439478 R13.1 0 see above [id number] GENARO PELAEZ MD [facility] [address] [address] 05/17/2025 15:47:39 05/17/2025 16:14:42 Oropharyngeal dysphagia 31161365 R13.12 I recommend an MBS to better evaluate. Benign joy plasm of oropharynx 48770196 D10.5 I personally reviewed her MRI which was negative. I gave reassuranc e. She may f/u as needed. Dysphagia 08242657 R13.1 0 recommend f/u with GI. Health Concerns Section Related Observation LastModified by Organization Detai ls LastModified Time None Recorded Concern Status LastModified by Organization Details LastModified Time None Recorded Advance Directives Directive None Recorded Payers Insurance Date Sequence Insurance Name Policy Number Policy Singer Covered Member ID Singer Member ID Guarantor Name 05/17/2025 1 [place] [facility] Ese N Reji [id number] Ese Reji 05/17/2025 1 [place] [facility] (MEDICAID) Ese Reji [id number] Ese Reji Notes Date Note Type Note Provider Name and Address Organization Details Recorded Time 07/01/2024 text/html ROS as noted in the HPI She has trouble swallowing large pills. It can occur with food as well. She feels as if her throat is swollen. It has been this way for years. She has not had a recent swallow study. No current throat pain. She does not smoke. No current SOB. Takes omeprazole for GERD. GENARO PELAEZ MD [address] [place] [address], [address], [place] - [facility] 07/01/2024 12:04:21 05/17/2025 text/html ROS as noted in the HPI She has trouble swallowing large pills. It can occur with food as well. MBS was reassuring. MRI of neck was negative for tumors. She has pending visit with GI. thyroid nodule was seen and no f/u was recommend based on radiologic criteria. Takes omeprazole for GERD. GENARO PELAEZ MD [address] [place] [address],[address], [address], [facility] - [facility] 05/17/2025 16:09:10 OBGyn Episode No OBEpisode recorded.
--- OUTSIDE RECORDS SUMMARY | 2025-08-25 09:13 | XMS_ITS | Encounter Summary ---
Author Organization [employer] Address [address] 7t [place] [address] Care Team Providers Care Election Assistant Name Role Phone Maranda Serna MD Primary Care Provider [phone] Encounter Details Date Type Department Care Team (Late st Contact Info) Description 04/22/2023 Orders Only [facility] MEDICINE [address] [place], [place] [phone] Maranda Serna MD [address] [place] [address] Left foot pain (Primary Dx); Type 2 diabetes mellitus with hyperglycemia, with long-term current use of insulin ([facility]) Social History Tobacco Use Types [...] with long-term current use of insulin (HCC) documented in this encounter Additional Health Concerns Assessment Noted Time PHQ-9 Depression Total Score: 6 10/23/20 22 10:04 AM EST documented as of this encounter Care Teams Election Assistant Relationship Specialty Start Date End Date Maranda Serna MD [address] [place] [address] PCP - General Family Medicine 08/01/21 documented as of this encounter
--- OUTSIDE RECORDS SUMMARY | 2025-08-25 09:13 | XMS_ITS | Encounter Summary ---
Author Organization [facility]ly [facility] Address [address] [place] [address] Care Team Providers Care Knitting Inspector Name Role Phone Viet Sánchez Unavailable [phone] Viet Sánchez Primary Care Provider Encounter Details Date Type Department Care Team (Late st Contact Info) Description 02/18/2020 Scanned Document [facility] [address] [place] [phone] Provider, Sheryl, [address] [place] [address] Social History Tobacco Use Types Packs/Day Years [...] on filedocumented in this encounter Care Teams Knitting Inspector Relationship Specialty Start Date End Date Viet Sánchez PA [address] [place] [address] PCP - General 06/18/18 Viet Sánchez PA [address] [place] [address] 06/18/18 documented as of this encounter
--- OUTSIDE RECORDS SUMMARY | 2025-08-25 09:13 | XMS_ITS | Encounter Summary ---
Author Organization [employer] Address [address] [facility] 7t [place] [address] Care Team Providers Care Reweaver Name Role Phone Maranda Serna MD Primary Care Provider [phone] Reason for Visit * Reason Onset Date Comments Appointment Request 05/28/2024 Encounter Details Date Type Department Care Team ([facility] st Contact Info) Description 05/28/2024 Telephone [facility] MED[facility]INE [address] [place], [place] [phone] Maranda Serna MD [address] [place], [place] [phone] Appointment Request Social History Tobacco Use Types [...] documented as of this encounter Care Teams Reweaver Relationship Specialty Start Date End Date Maranda Serna MD [address] [place] [address] PCP - General Family Medicine 08/01/21 documented as of this encounter
--- OUTSIDE RECORDS SUMMARY | 2025-08-25 09:13 | XMS_ITS | Encounter Summary ---
Author Organization [facility] Address [address] [place] [address] Care Team Providers Care Client Services Account Manager Name Role Phone Viet Sánchez Unavailable [phone] Viet Sánchez Primary Care Provider [phone] Encounter Details Date Type Department Care Team (Late st Contact Info) Description 08/06/2018 Scanned Document [facility] [place] [address] [facility] [address] [place] [address] Provider, MD Sheryl [address] [place] [address] Social History Tobacco Use Types Packs/Day Years [...] on filedocumented in this encounter Care Teams Client Services Account Manager Relationship Specialty Start Date End Date Viet Sánchez PA [address] [place] [address] PCP - General 06/18/18 Viet Sánchez PA [address] [place] [address] 06/18/18 documented as of this encounter
--- OUTSIDE RECORDS SUMMARY | 2025-08-25 09:13 | XMS_ITS | Clinical Summary ---
Author Organization [facility] Address [address] [place] [address] Care Team Providers Care Natural Resource Manager Name Role Phone ChapispriscillaViet Primary Care Provider [phone] Allergies Active Allergy Reactions Criticality Noted Date [...] age to complete this topic Care Teams Natural Resource Manager Relationship Specialty Start Date End Date Viet Sánchez [address] [place] [address] PCP - General Medical Services 06/19/18
--- OUTSIDE RECORDS SUMMARY | 2025-08-25 09:13 | XMS_ITS | Encounter Summary ---
Author Organization [facility] Address [address] [place] [address] Care Team Providers Care Industrial Cleaner Name Role Phone Viet Sánchez Unavailable [phone] Viet Sánchez Primary Care Provider [phone] Encounter Details Date Type Department Care Team (Late st Contact Info) Description 07/07/2018 Scanned Document [facility] [place] [address] [facility] [address] [place] [address] Provider, Sheryl, [address] [place] [address] Social History Tobacco Use Types Packs/Day Years [...] filedocumented in this encounter Care Teams Industrial Cleaner Relationship Specialty Start Date End Date Viet Sánchez PA [address] [place] [address] PCP - General 06/18/18 Viet Sánchez PA [address] [place] [address] 06/18/18 documented as of this encounter
--- OUTSIDE RECORDS SUMMARY | 2025-08-25 09:13 | XMS_ITS | Encounter Summary ---
Author Organization [employer] Address [address] [place] [address] 7t [place] [address] Care Team Providers Care Audio Visual Design Engineer Name Role Phone Maranda Serna MD Primary Care Provider [phone] Reason for Referral * Imaging (Routine) - Closed Specialty Diagnoses / Procedures Referred By Rodney hussein Referred To Contact Radiology Diagnoses Pulmonary nodule Procedures CT Chest w/o Contrast Maranda Serna MD [address] [place] [address] Phone: tel: fax: [address] Phone: tel: fax: Referral ID Status Reason Start Date Expiration Date Visits Re quested Visits Authorized [id number] Closed 02/07/2025 02/07/2026 1 1 Encounter Details Date Type Department Care Team (Late st Contact Info) Description 02/07/2025 Orders Only [facility] MEDICINE [address] [place], [place] [phone] Maranda Serna MD [address] [place], [place] [phone] Pulmonary nodule (Primary Dx) Social History Tobacco [...] 5 AM EDT Narrative 02/25/2025 11:[address] [address] [address] Scan Report Signed Patient: Ese Mendoza MR#: [id number] 8 : 1960 Acct:[id number] Age/Sex: 64 / F ADM Date: 02/25/25 Loc: .CT Attending Dr: Maranda Serna MD Ordering Physician: Maranda Serna MD Date of Service: 02/25/25 Procedure(s): CT chest wo IV con Accession Number(s): [id number] cc: Maranda Serna MD Report Number: [id number]: Total DLP = 183.00 mGy-cm EXAMINATION: CT [...] reconstruction technique DLP: 183 mGy centimeter. FINDINGS: SECURITY ORDERLY: Large body habitus. Vascular clips right upper [...] 02/25/25 1155 DD/ 1115 TD/TT: 02/25/25 1124 Rail Tractor Operator: Procedure Note Donotuseinterpreter, Image - 02/25/[address] [address] [address] Scan Report Signed Patient: Ese MendozaMR#: [id number] 8 : 1960Acct:[id number] Age/Sex: 64 / FADM Date: 02/25/25 Loc: HO.CT Attending Dr: Mraanda Serna MD Ordering Physician: Maranda Serna MD Date of Service: 02/25/25 Procedure(s): CT chest wo IV con Accession Number(s): [id number] cc: Maranda Serna MD Report Number: [id number]: Total DLP = 183.00 mGy-cm EXAMINATION: CT [...] reconstruction technique DLP: 183 mGy centimeter. FINDINGS: SECURITY ORDERLY: Large body habitus. Vascular clips right upper [...] 02/25/25 1155 DD/ 1115 TD/TT: 02/25/25 1124 Rail Tractor Operator: Maranda Serna MD IMG CT PROCEDURES Edited Result - Final documented in this encounter Visit Diagnoses Diagnosis Pulmonary nodule- Primary Other diseases of lung, not elsewhere classified documented in this encounter Additional Health Concerns Assessment Noted Time PHQ-9 Depression Total Score: 0 01/18/20 25 1:12 PM EDT documented as of this encounter Care Teams Audio Visual Design Engineer Relationship Specialty Start Date End Date Maranda Serna MD [address] [place] [address] PCP - General Family Medicine 08/01/21 documented as of this encounter
--- OUTSIDE RECORDS SUMMARY | 2025-08-25 09:13 | XMS_ITS | Patient Health Record ---
Author Organization [employer] 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) Active confirmed 39280343 Problem Other chronic pain (G89.29) Active confirmed 75982922 Problem Age-related nuclear cataract, bilateral (H25.13) Active confirmed Nuclear senile cataract (336396631) Problem Diabetes (E11.9) Active confirmed Type II diabetes mellitus without complication (854064702) Problem Dyslipidemia (E78.5) Active confirmed 831589366 Problem HTN (hypertension) (I10) Active confirmed Hypertension (21692628) Problem Arthritis (M19.90) Active confirmed 372 3001 Problem tow operator current use of insulin (Z79.4) Active confirmed 166985212 Problem Controlled diabetes mellitus with diabetic neuropathy (E11.40) Active confirmed Diabetic peripheral neuropathy associated with type 2 diabetes mellitus (5141520942295) Problem Type 2 diabetes mellitus with mild nonproliferative diabetic retinopathy without macular edema, bilateral (E11.3293) Active confirmed Mild nonproliferative retinopathy due to type 2 diabetes mellitus (484127983357289) Problem Left retinal detachment (H33.22) Active confirmed Serous r etinal detachment (18955474) Problem Menopausal and postmenopausal disorder (N95.9) Active confirmed 813389155 PLAN OF TREATMENT Pending Test Test Name [...] End Date MACKENZIE Hughes [address] [place] [phone] Ese Mendoza Self - patient is the insured MEDICAID DENTAL [address] [place] [id number] Ese Mendoza Self - patient is the [...]
--- OUTSIDE RECORDS SUMMARY | 2025-08-25 09:13 | XMS_ITS | Encounter Summary ---
Author Organization [employer] Address [address] [facility] [address] 7t [place] [address] Care Team Providers Care Aerospace Assembler Name Role Phone Maranda Serna MD Primary Care Provider [phone] Encounter Details Date Type Department Care Team ([facility] st Contact Info) Description 01/13/2025 Orders Only [facility] MEDICINE [address] [place], [place] [phone] Maranda Serna MD [address] [place], [place] [phone] Pulmonary nodule (Primary Dx) Social History Tobacco [...] documented as of this encounter Care Teams Aerospace Assembler Relationship Specialty Start Date End Date Maranda Serna MD [address] [place] [address] PCP - General Family Medicine 08/01/21 documented as of this encounter
--- OUTSIDE RECORDS SUMMARY | 2025-08-25 09:13 | XMS_ITS | Encounter Summary ---
Author Organization [facility] Address [address] [place] [address] Care Team Providers Care Traffic Control Supervisor Name Role Phone Viet Sánchez Unavailable [phone] Viet Sánchez Primary Care Provider Encounter Details Date Type Department Care Team (Late st Contact Info) Description 05/22/2020 Scanned Document [facility] [address] [address] Deja Rico, [place] [address] Social History Tobacco Use Types Packs/Day Years [...] on filedocumented in this encounter Care Teams Traffic Control Supervisor Relationship Specialty Start Date End Date Viet Sánchez PA [address] [place] [address] PCP - General 06/18/18 Viet Sánchez PA [address] [place] [address] 06/18/18 documented as of this encounter
--- OUTSIDE RECORDS SUMMARY | 2025-08-25 09:13 | XMS_ITS | Encounter Summary ---
Author Organization [employer] Address [address] [facility] 7t [place] [address] Care Team Providers Care Safety Intern Name Role Phone Maranda Serna MD Primary Care Provider [phone] Reason for Visit * Reason Comments Med Refill Encounter Details Date Type Department Care Team ([facility] st Contact Info) Description 11/19/2023 Refill [facility] MEDICINE [address] [place], [place] [phone] Yesica Naylor MD [address] [place] [address] Social History Tobacco Use Types Packs/Day Years [...] as of this encounter Care Teams Safety Intern Relationship Specialty Start Date End Date Maranda Serna MD [address] [place] [address] PCP - General Family Medicine 08/01/21 documented as of this encounter
--- OUTSIDE RECORDS SUMMARY | 2025-08-25 09:13 | XMS_ITS | Encounter Summary ---
Author Organization [employer] Address [address] [facility] 7t [place] [address] Care Team Providers Care Gas Station Manager Name Role Phone Maranda Serna MD Primary Care Provider [phone] Reason for Visit * Reason Onset Date Comments Durable Medical Equipment 05/26/2024 Encounter Details Date Type Department Care Team ([facility] st Contact Info) Description 05/26/[address] [facility] MEDICINE [address] [place], [place] [phone] Maranda Serna MD [address] [place], [place] [phone] Durable Medical Equipment Social History Tobacco Use [...] walker. Pt stated she was advised by security services specialist jigneshow up with orthopedic and they prescribed a walker for the pt. Pt wants script send over to [facility] [address] If any questions you can contact pt at [phone]. documented in this encounter Plan of Treatment Not on file documented as of this encounter Visit Diagnoses Not on filedocumented in this encounter Additional Health Concerns Assessment Noted Time PHQ-9 Depression Total Score: 6 10/23/20 22 10:04 AM EST documented as of this encounter Care Teams Gas Station Manager Relationship Specialty Start Date End Date Maranda Serna MD [address] [place] [address] PCP - General Family Medicine 08/01/21 documented as of this encounter
--- OUTSIDE RECORDS SUMMARY | 2025-08-25 09:13 | XMS_ITS | Encounter Summary ---
Author Organization [employer] Address [address] [facility] 7t [place] [address] Care Team Providers Care Plate Shear Operator Name Role Phone Maranda Serna MD Primary Care Provider [phone] Encounter Details Date Type Department Care Team ([facility] st Contact Info) Description 01/28/2025 Orders Only [facility] MEDICINE 230 [place], [place] [phone] Maranda Serna MD 230 [place] [address] Type 2 diabetes mellitus with hyperglycemia, with long-term current use of insulin ([facility]) Social History Tobacco Use Types Packs/Day Years [...] documented as of this encounter Care Teams Plate Shear Operator Relationship Specialty Start Date End Date Maranda Serna MD [address] [place] [address] PCP - General Family Medicine 08/01/21 documented as of this encounter
--- NOTE | 2025-09-26 14:50 | HO.ANESPROP2 ---
Documented by User: Suzan York NP 09/26/25 14:58 HPI - Anesthesia Eval Consult details Narrative: 64yo F for Upper Endoscopy and Colonoscopy Cardiac optimized. Follows [facility] [place] Cardiology for CAD hx NSTEMI Anesthesia Pre-Procedure Meds Is the patient on any of the following meds?: GLP1/DPP4 and SGLT2 Inhib PMFSH Active Problems Active Problems: All Active Problems Diabetes (Acute) Loud snoring (Acute) Daytime somnolence (Acute) History of recurrent UTIs (Acute) Pulmonary nodule (Acute) Asthma (Acute) Environmental allergies (Acute) CAD (coronary artery disease) (Acute) S/P cardiac cath (Acute) NSTEMI (non-ST elevated myocardial infarction) (Acute) Elevated troponin (Acute) Bronchitis (Acute) Chest pain (Acute) UTI (urinary tract infection) (Acute) OAB (overactive bladder) (Acute) Patellofemoral arthritis of right knee (Acute) Pancreatic insufficiency (Acute) Microscopic hematuria (Acute) Diabetes (Acute) Urinary incontinence (Acute) GERD (gastroesophageal reflux disease) (Acute) Tubular adenoma (Acute) Renal mass (Acute) Renal cyst (Acute) Bladder prolapse, female, acquired (Acute) IBS (irritable bowel syndrome) (Acute) Past Medical History Medical History Pancreatic insufficiency Pancreatic insufficiency Tubular adenoma CKD (chronic kidney disease) Anemia GERD (gastroesophageal reflux disease) Renal cyst Bladder prolapse, female, acquired Hx of gastric ulcer IBS (irritable bowel syndrome) Kidney stones High cholesterol Diabetes Family History Family History Father Heart attack DM2 (diabetes mellitus, type 2) Mother DM2 (diabetes mellitus, type 2) COPD (chronic obstructive pulmonary disease) Other No pertinent family history Family history of problems with anesthesia: No Surgical History Surgical History H/O foot surgery H/O foot surgery History of tonsillectomy Hx of endoscopy Hx of colonoscopy History of partial hysterectomy Hx of breast reduction, elective Hx of cholecystectomy History of Problems with Anesthesia: No Social History Social History Household Members: Family Housing: House Do you presently have visiting nurse or other home services: No Alcohol intake: never Patient Tobacco Use Status: Never used Tobacco Second Hand Smoke Exposure: No Use of substances other than those prescribed or required for medical reasons: No Are you DNR?: No Advance Directives: No Advance Directives Information Provided: Yes Patient : No : No service: No Meds Allergies Allergy/AdvReac Type Severity Reaction Status Date / Time Pork/Porcine Containing Allergy Mild SORES Verified 08/17/25 13:27 Products (Pork/Porcine /ITCHING Product Derivatives) Seasonal Allergies Allergy Mild Itching Verified 08/17/25 13:27 nickel AdvReac Swelling Verified 08/17/25 13:27 and irritation Home Medications ?Medication ?Instructions ?Recorded ?Confirmed ?Last Taken ?Type fluticasone propionate 50 1 spray intranasal DAILY PRN 12/18/21 09/27/25 Unknown History mcg/actuation nasal Allergy Symptoms spray,suspension ascorbic acid (vitamin C) 1,000 mg 1,000 mg PO DAILY 05/07/23 09/27/25 Unknown History tablet digestive enzymes 1 cap PO BID 05/07/23 09/27/25 Unknown History omega 5-zjn-zce-fish oil 1,000 mg 1 cap PO DAILY 05/07/23 09/27/25 Unknown History (120 mg-180 mg) capsule (Fish Oil) ammonium lactate 12 % lotion 1 appl topical DAILY 11/28/24 09/27/25 Unknown History diphenhydramine 25 1 tab PO BEDTIME PRN Insomnia 11/28/24 09/27/25 Unknown History mg-acetaminophen 500 mg tablet (Tylenol PM Extra Strength) prednisolone acetate 1 % eye 1 drp ophthalmic-Left QID 11/28/24 09/27/25 Unknown History drops,suspension (Pred Forte) vitamin B complex 1 tab PO DAILY 11/28/24 09/27/25 Unknown History pen needle, diabetic 31 gauge x #1,200 ea 01/03/25 05/24/25 Unknown History 5 (Easy Touch) aspirin 81 mg chewable tablet (St 81 mg PO DAILY 01/19/25 09/27/25 09/28/25 History Vladimir Aspirin) insulin lispro 200 unit/mL (3 mL) 45 unit subcut USEASDIRECTD 01/19/25 09/27/25 Unknown History subcutaneous pen blood sugar diagnostic (FreeStyle #10 ea 04/05/25 05/24/25 Unknown History Lite Strips) dapagliflozin propanediol 5 mg 5 mg PO QAM 04/05/25 09/27/25 09/28/25 History tablet (Farxiga) ferrous sulfate 325 mg (65 mg 325 mg PO Q OTHER DAY 04/05/25 09/27/25 Unknown History iron) tablet,delayed release lancets 33 gauge (Padilla Oneill #100 ea 06/17/25 Unknown History Plus Lancet) pantoprazole 40 mg tablet,delayed 40 mg PO DAILY 07/22/25 09/27/25 Unknown History release senna leaf ml PO 07/22/25 Unknown History Exam Pertinent Lab Results Pertinent Lab Results: Laboratory Tests 04/22/25 07/22/25 14:18 09:40 WBC 7.2 Hgb 11.5 L Hct 37.7 Plt Count 266 Sodium 140 Potassium 3.7 Chloride 111 H Carbon Dioxide 23 BUN 42 H Creatinine 1.99 H Narrative Narrative: EKG 05/2025 EKG Details: EKG today showed normal sinus rhythm, 89 beats per minute, low-voltage QRS, normal [place], corrected QT. 11/30/2024- Cardiac catheterization showed [id number] distal LAD disease with severe distal stenosis and severe OM1 stenosis, small caliber vessels with severe disease and not amenable to stenting therefore was started on medical management with dual antiplatelet therapy. 12/01/2024- echo showed LVEF at 57%, with LV wall thickness in the pattern of concentric hypertrophy, central venous pressure mildly elevated, with no obvious wall motion abnormalities. Assessment and Plan Assessment Anesthesia Assessment: Chart Reviewed Final Anesthetic Review Family History of Problems with Anesthesia: No History of Problems with Anesthesia: No Documented by User: Watson Hooker MD 09/29/25 11:51 [facility] Past Medical History Medical History Pancreatic insufficiency Pancreatic insufficiency Tubular adenoma CKD (chronic kidney disease) Anemia GERD (gastroesophageal reflux disease) Renal cyst Bladder prolapse, female, acquired Hx of gastric ulcer IBS (irritable bowel syndrome) Kidney stones High cholesterol Diabetes Functional capacity: independent ambulation Family History Family History Father Heart attack DM2 (diabetes mellitus, type 2) Mother DM2 (diabetes mellitus, type 2) COPD (chronic obstructive pulmonary disease) Other No pertinent family history Surgical History Surgical History H/O foot surgery H/O foot surgery History of tonsillectomy Hx of endoscopy Hx of colonoscopy History of partial hysterectomy Hx of breast reduction, elective Hx of cholecystectomy Social History Social History Household Members: Family Housing: House Do you presently have visiting nurse or other home services: No Alcohol intake: never Patient Tobacco Use Status: Never used Tobacco Second Hand Smoke Exposure: No Use of substances other than those prescribed or required for medical reasons: No Are you DNR?: No Advance Directives: No Advance Directives Information Provided: Yes Patient : No : No service: No Meds Allergies Allergy/AdvReac Type Severity Reaction Status Date / Time Pork/Porcine Containing Allergy Mild SORES Verified 08/17/25 13:27 Products (Pork/Porcine /ITCHING Product Derivatives) Seasonal Allergies Allergy Mild Itching Verified 08/17/25 13:27 nickel AdvReac Swelling Verified 08/17/25 13:27 and irritation Home Medications ?Medication ?Instructions ?Recorded ?Confirmed ?Last Taken ?Type fluticasone propionate 50 1 spray intranasal DAILY PRN 12/18/21 09/27/25 Unknown History mcg/actuation nasal Allergy Symptoms spray,suspension ascorbic acid (vitamin C) 1,000 mg 1,000 mg PO DAILY 05/07/23 09/27/25 Unknown History tablet digestive enzymes 1 cap PO BID 05/07/23 09/27/25 Unknown History omega 1-kjt-paz-fish oil 1,000 mg 1 cap PO DAILY 05/07/23 09/27/25 Unknown History (120 mg-180 mg) capsule (Fish Oil) ammonium lactate 12 % lotion 1 appl topical DAILY 11/28/24 09/27/25 Unknown History diphenhydramine 25 1 tab PO BEDTIME PRN Insomnia 11/28/24 09/27/25 Unknown History mg-acetaminophen 500 mg tablet (Tylenol PM Extra Strength) prednisolone acetate 1 % eye 1 drp ophthalmic-Left QID 11/28/24 09/27/25 Unknown History drops,suspension (Pred Forte) vitamin B complex 1 tab PO DAILY 11/28/24 09/27/25 Unknown History pen needle, diabetic 31 gauge x #1,200 ea 01/03/25 05/24/25 Unknown History 5/16 (Easy Touch) aspirin 81 mg chewable tablet (St 81 mg PO DAILY 01/19/25 09/27/25 09/28/25 History Vladimir Aspirin) insulin lispro 200 unit/mL (3 mL) 45 unit subcut USEASDIRECTD 01/19/25 09/27/25 Unknown History subcutaneous pen blood sugar diagnostic (FreeStyle #10 ea 04/05/25 05/24/25 Unknown History Lite Strips) dapagliflozin propanediol 5 mg 5 mg PO QAM 04/05/25 09/27/25 09/28/25 History tablet (Farxiga) ferrous sulfate 325 mg (65 mg 325 mg PO Q OTHER DAY 04/05/25 09/27/25 Unknown History iron) tablet,delayed release lancets 33 gauge (OneTouch Delica #100 ea 06/17/25 Unknown History Plus Lancet) pantoprazole 40 mg tablet,delayed 40 mg PO DAILY 07/22/25 09/27/25 Unknown History release senna leaf ml PO 07/22/25 Unknown History Exam Exam Date and Time: 09/29/2025 Airway TM Dist: >3cm Neck ROM: Full Heart: normal Lungs: normal Other: normal Assessment and Plan Final Anesthetic Review NPO: Yes ASA Class: II Final Preanesthetic Review: No Changes in Pt Med Stat, Meds/Allgs Chart Reviewed, Consent Obtained/Reviewed and Anes Risks/Benef Reviewed Patient Risk: Low Procedure Risk: Low Anesthetic Plan Anesthetic Plan: MAC: Disposition: Standard PACU
[2025-09-27 14:05] VITALS: BMI 36.0
--- NOTE | 2025-09-29 11:28 | PC.NURSE ---
md hancock and md nix aware of patients use of farxiga yesterday. ok to proceed. patient explained plan of care.
[2025-09-29 11:31] VITALS: BMI 35.6
[2025-09-29 11:34] VITALS: BP 135/68; PULSE 96; RESP 16; TEMP 36.3; O2SAT 96
[2025-09-29 11:48] LABS: Glucose, Whole Blood 153 mg/dL (60-115)
[2025-09-29] MEDS: Lactated Ringers 1,000 ML 100 ML IVCONT (11:55)
--- NOTE | 2025-09-29 12:10 | MHC.SHP ---
Pre-Procedural Eval Section A - 24 Hr Update-Section A only Date of Service: 09/29/25 Section B - Complete if H&P > 30 days Chief Complaint: GERD, hx of polyps Details of Present Illness: Pancreatic insufficiency Pancreatic insufficiency Tubular adenoma CKD (chronic kidney disease) Anemia GERD (gastroesophageal reflux disease) Renal cyst Bladder prolapse, female, acquired Hx of gastric ulcer IBS (irritable bowel syndrome) Kidney stones High cholesterol Diabetes Surgical History Hx of endoscopy Hx of colonoscopy History of partial hysterectomy Hx of breast reduction, elective Hx of cholecystectomy Present Medications: see Short Stay Collaborative assessment Allergies: Allergies Allergy/AdvReac Type Severity Reaction Status Date / Time Pork/Porcine Containing Allergy Mild SORES Verified 08/17/25 13:27 Products (Pork/Porcine /ITCHING Product Derivatives) Seasonal Allergies Allergy Mild Itching Verified 08/17/25 13:27 nickel AdvReac Swelling Verified 08/17/25 13:27 and irritation Review of Systems Review of Systems Comment: Ten point ROS negative Exam Exam Comment: Gen appear: No acute distress HEENT: no icterus Chest: No overt resp distress Abd: soft, nontender, nondistended Psych: Stable affect, answering questions appropriately Neuro: A/Ox3 noted to move all extremities spontaneously Ext: no peripheral edema Plan Diagnosis/Plan: Unchanged I have reviewed the history and physical and performed a pertinent physical examination on my patient. No changes have occurred unless specified. Time Spent With Patient Time: Total time managing care of this patient today ____ minutes.
--- NOTE | 2025-09-29 12:51 | P.OPN-COLO_ITS ---
Colonoscopy Operative Note Operative Note Date of Service: 09/29/25 Narrative: Procedure: Upper endoscopy and colonoscopy Indication: GERD, hx of polyps Endoscopist: Carline James MD Anesthesia Provider: Dr Hooker Anesthesia type: MAC Instrument: [id number] and [id number] EGD Procedure:?? The procedure, indications, preparation and potential complications were reviewed with the patient, who indicated understanding and gave written informed consent to proceed. The endoscope was introduced through the mouth, and advanced to the 2nd part of the duodenum. The mucosa was carefully examined on slow withdrawal of the endoscope. The patient tolerated the procedure well. There were no immediate complications.? EGD Findings:? * Esophagus:? Normal esophageal mucosa was noted. The Z-line was at 35 cm and irregular to 34 cm. Jumbo cold forceps biopsies were taken from GE junction to rule out Dumont's esophagus. * Stomach:? Normal gastric mucosa. Retroflexion was performed in the cardia. * Duodenum:? Normal duodenal mucosa. Colonoscopy Procedure:? The patient was then turned for the colonoscopy. A digital rectal exam was performed which was abnormal for hemorrhoids.? A distal attachment cap was affixed to the tip of the scope and the colonoscope was then inserted through the anus and advanced through the colon and advanced to the cecum at 75 cm and terminal ileum.? Appendiceal orifice and ileocecal valve were identified. Mucosa was carefully examined under high definition white light as the instrument was slowly withdrawn in a retrograde panoramic fashion. Retroflexion was performed in rectum. The procedure was not difficult. 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 Otherwise normal colon and terminal ileum mucosa. Protruding lesions: * 1 sessile polyp of size 2 mm noted in ascending colon. Jumbo forceps polypectomy was performed. The polyp was completely removed and retrieved. * 1 sessile polyp of size 6 mm noted in descending colon. Jumbo forceps polypectomy was performed. The polyp was completely removed and retrieved. * 1 sessile polyp of size 5 mm noted in sigmoid colon. Jumbo forceps polypectomy was performed. The polyp was completely removed and retrieved. * Medium internal hemorrhoids without stigmata of recent bleeding. Excavated lesions: * Rare diverticuli in sigmoid colon. Impression: 1. Irregular Z line (biopsy) 2. Normal stomach 3. Normal duodenum 4. Melanosis coli 5. Total 3 polyps removed 6. Diverticulosis 7. Internal and external hemorrhoids Recommendations:?? * Follow-up path results * Avoid NSAIDs * Cont pantoprazole daily. * Repeat colonoscopy in 3-5 years depending on results. * HOLD plavix today. OK to resume tomorrow.
[2025-09-29 13:03] VITALS: BP 111/53; PULSE 91; RESP 16; TEMP 36.2; O2SAT 98
[2025-09-29 13:22] VITALS: BP 121/61; PULSE 89; RESP 16; TEMP 36.1; O2SAT 98
== END 2025-09-29 14:12 | disposition home or self-care (01) ==
PROVIDERS: PCP Family Medicine; Visit Provider Internal Medicine
PROC: (CPT 45380; principal; 2025-09-29 12:30)
DX: Z12.11 Encounter for screening for malignant neoplasm of colon (principal); K21.9 Gastro-esophageal reflux disease without esophagitis; Z86.0101 Personal history of adenomatous and serrated colon polyps; K86.89 Other specified diseases of pancreas; K58.1 Irritable bowel syndrome with constipation; R14.0 Abdominal distension (gaseous); K64.8 Other hemorrhoids; K64.4 Residual hemorrhoidal skin tags; K57.30 Diverticulosis of large intestine without perforation or abscess without bleeding; K63.89 Other specified diseases of intestine; D12.2 Benign neoplasm of ascending colon; D12.4 Benign neoplasm of descending colon; D12.5 Benign neoplasm of sigmoid colon
CPT/HCPCS: 45380; 43239; 82947; 88305; 88313; J2003; J2704; J3010

== ENCOUNTER → 2025-09-29 10:19 | Outpatient (BNV) | payer MEDICAID, SELFPAY | PROVIDERS: PCP Family Medicine; Visit Provider Internal Medicine | DX: Z12.11 Encounter for screening for malignant neoplasm of colon (principal); K63.5 Polyp of colon; K57.30 Diverticulosis of large intestine without perforation or abscess without bleeding; K64.8 Other hemorrhoids; K21.9 Gastro-esophageal reflux disease without esophagitis; K22.89 Other specified disease of esophagus | CPT/HCPCS: 43239; 45380 ==

== ENCOUNTER → 2025-10-10 10:20 | Outpatient (REF) | payer MEDICAID, SELFPAY ==
--- OUTSIDE RECORDS SUMMARY | 2025-10-10 12:52 | XMS_ITS | Clinical Summary ---
Author Organization [employer] Address [address] [facility] [address] [place] [address] Care Team Providers Care [employer]ender [employer] Worker Name Role Phone Maranda Serna MD Primary Care Provider [phone] Allergies Active Allergy Reactions Criticality Noted Date [...] by mouth once at bedtime 15 tablet Active oxybutynin XL (Ditropan-XL) 5 MG 24 hr tablet Take 5 mg by mouth Once per day. 023 Active insulin degludec (Tresiba FlexTouch) 100 UNIT/ML injection INJECT 62 UNITS SUBCUTANEOUSLY EVERY DAY 30 mL 2 Active Easy Touch Pen [place] 31G X 8 MM miscIndication s:Type 2 diabetes mellitus with hyperglycemia, with long-term current use of insulin (HCC) USE DIRECTED THREE TIMES DAILY 200 each 11 025 Active aspirin 81 MG EC tablet Take [...] by mouth every other day. 45 tablet Active cyanocobalamin (Vitamin B-12) 1000 MCG tablet Take 1 tablet (1,000 mcg) by mouth Once per day. 90 tablet 025 2025 Active OneTouch Delica Lancets 33G misc 1 each 3 times daily. 100 each Active TRUEplus Lancets 33G miscIndication s:Type 2 diabetes mellitus with hyperglycemia, with long-term current use of insulin ([facility]) TEST BLOOD SUGAR THREE TIMES DAILY 100 each Active simethicone (Mylicon) 125 MG chewable tablet Chew 1 tablet (125 mg) every 6 (six) hours if needed for flatulence. 100 tablet Active Acetaminophen Extra Strength 500 MG tablet TAKE 1 TO 2 TABLETS BY MOUTH EVERY 8 HOURS NEEDED FOR PAIN OR FEVER 90 tablet Active glucose blood test stripIndicatio ns:Type 2 diabetes mellitus with hyperglycemia, with long-term current use of insulin ([facility]) OneTouch brand. TEST BLOOD SUGAR THREE TIMES DAILY 100 each 025 2025 Active glucose blood (FREESTYLE LITE) test stripIndicatio ns:Type 2 diabetes mellitus with stage 3b chronic kidney disease, with long-term current use of insulin ([facility]) USE TO TEST BLOOD SUGAR THREE TIMES A DAY 100 each Active Blood Glucose Monitoring Suppl (FreeStyle Lite) w/Device kitIndications :Type 2 diabetes mellitus with stage 3b chronic kidney disease, with long-term current use of insulin ([facility]) 1 Dose by Other route 3 times daily. USE TO TEST BLOOD SUGAR THREE TIMES A DAY 1 kit Active TRUEplus Lancets 33G miscIndication s:Type 2 diabetes mellitus with stage 3b chronic kidney disease, with long-term current use of insulin ([facility]) USE TO TEST BLOOD SUGAR THREE TIMES A DAY 100 each 025 Active pantoprazole (Protonix) 40 MG EC tablet Take 1 tablet (40 mg) by mouth before breakfast. Do not crush, chew, or split. 90 tablet 3 025 2025 Active Tirzepatide (Mounjaro) 2.5 MG/0.5ML solution auto-injector Inject 2.5 mg under the skin 1 (one) time per week. 2 mL 11 025 Active Blood Glucose Monitoring Suppl (FreeStyle [place]) kit Check blood glucose 3 times daily and as needed 1 kit Active insulin lispro (HumaLOG) 100 UNIT/ML injection INJECT 14 UNITS SUBCUTANEOUSLY THREE TIMES DAILY BEFORE MEALS 15 mL 3 025 Active insulin lispro (HumaLOG) 100 UNIT/ML injection INJECT 14 UNITS SUBCUTANEOUSLY THREE TIMES DAILY BEFORE MEALS 15 mL 2 025 2024 Discontinued Active Problems Problem Noted Date Diagnosed Date Gas pain 04/22/2025 Assessment & Plan (04/22/2025 3:38 PM EDT): - Patient requests simethicone tablet form not capsule. Pulmonary nodule 02/07/2025 Coronary artery disease 01/16/2025 Assessment & Plan (07/20/2025 2:46 PM EDT): -Surgical Rn: [facility], last seen in May 2025 -11/30/2024- Cardiac catheterization showed [id number] distal LAD disease with severe distal stenosis [...] Assessment & Plan (04/12/2025 1:39 PM EDT): -Surgical Rn: [facility], last seen in Dec 2024 -11/30/2024- Cardiac catheterization showed [id number] distal LAD disease with severe distal stenosis [...] Assessment & Plan (01/21/2025 12:33 PM EDT): -Surgical Rn: [facility], last seen in Dec 2024 -11/30/2024- Cardiac catheterization showed [id number] distal LAD disease with severe distal stenosis [...] and supportive care - follow up with protective service specialist as scheduled Assessment & Plan (07/23/2024 9:02 [...] Plan (01/17/2025 11:35 AM EDT): - seeing protective service specialist - continue judicious use of gabapentin 100 mg tid - she wants to switch to tablet. Only tablets available are 600 and 800 mg tablet - will have her take 1/4 of 600 mg tablet and take bid; or will check with pharmacist if she can open the capsule and take inside content Assessment & Plan (07/23/2024 5:36 AM EDT): - seeing protective service specialist - continue judicious use of gabapentin 100 mg tid - she wants to switch to tablet. Only tablets available are 600 and 800 mg tablet - will have her take 1/4 of 600 mg tablet and take bid; or will check with pharmacist if she can open the capsule and take inside content Assessment & Plan (01/04/2024 3:36 PM EST): - seeing protective service specialist - continue judicious use of gabapentin Assessment & Plan (10/03/2023 9:48 AM EST): - seeing protective service specialist - waiting for diabetic orthotics Adjustment disorder [...] hyperkalemia and cough -Currently prescribed Dapagliflozin from reimbursement counselor Assessment & Plan (04/22/2025 3:19 PM EDT): -Goal BP < 130/80 per ACC/AHA guideline -BP at goal today -Continue working on lifestyle modifications -Recommended self-monitoring BP. -Pt has tried lisinopril for renal protection, not for HTN, in the past, but it was discontinued due to hyperkalemia and cough -Currently prescribed Dapagliflozin from reimbursement counselor Assessment & Plan (07/20/2024 1:50 PM EDT): -Goal BP < 140/90 per JNC-8 and < 130/80 per ACC/AHA guideline (Treatment threshold >= 140/90 ) -BP at goal today -Continue working on lifestyle modifications -Recommended self-monitoring BP. -Pt has tried lisinopril for renal protection, not for HTN, in the past, but it was discontinued due to hyperkalemia and cough -Currently prescribed Dapagliflozin from reimbursement counselor -Follow up in 3-6 mo, sooner if [...] hyperkalemia and cough -Currently prescribed Dapagliflozin from reimbursement counselor -Follow up in 3-6 mo, sooner if [...] neuropathy; osteoarthritis; plantar fasciitis - Following with protective service specialist Assessment & Plan (06/07/2023 3:44 PM EDT): - left foot worse than right - multifactorial: Diabetic peripheral neuropathy; osteoarthritis; plantar fasciitis - referred to a protective service specialist; waiting for an appt - check the [...] want to try any GLP-1 agonist. -Patient [facility] prescribed Farxiga. Patient is taking this medication [...] want to try any GLP-1 agonist. -Patient Mar[facility]izer prescribed Farxiga. Patient is no longer taking [...] (01/04/2024 3:42 PM EST): - followed by [facility] - no anatomical pancreatic abnormality on MRI in Dec 2022 - continue vegan / plant-based pancreatic enzyme Assessment & Plan (10/03/2023 9:49 AM EST): - followed by [facility] - no anatomical pancreatic abnormality on MRI in Dec 2022 - continue vegan / plant-based pancreatic enzyme Assessment & Plan (06/07/2023 3:30 PM EDT): - followed by [facility] - no anatomical pancreatic abnormality on MRI in Dec 2022 - continue vegan / plant-based pancreatic enzyme Assessment & Plan (02/24/2023 5:30 AM EDT): - followed by [facility] - no anatomical pancreatic abnormality on MRI in Dec 2022 - continue vegan / plant-based pancreatic enzyme Assessment & Plan (12/18/2022 6:12 PM EST): - followed by [facility] - continue vegan [...] Plan (07/20/2025 2:53 PM EDT): -Followed by [facility], last seen 01/03/25 -EGD and Colonoscopy on 12/24/21; showed Tubular Adenoma, she was recommended to repeat in 3 years. - pt has been using castor oil - continue trying fiber-rich diet and increasing physical activity as tolerated. - continue Senakot as prescribed - Being scheduled for EGD and colonoscopy in near future. Preop is already done by brake specialist. Patient was advised to return to hold the clopidogrel 5 days prior to procedure Assessment & Plan (01/21/2025 12:33 PM EDT): -Followed by [facility], last seen 01/03/25 -EGD and Colonoscopy on 12/24/21; showed Tubular Adenoma, she was recommended to repeat in 3 years. - pt has been using castor oil - continue trying fiber-rich diet and increasing physical activity as tolerated. - continue Senakot as prescribed Assessment & Plan (07/20/2024 1:50 PM EDT): -Followed by [facility], last seen 08/06/22 -EGD and Colonoscopy on 12/24/21; showed Tubular Adenoma, she was recommended to repeat in 3 years. - pt has been using castor oil - continue trying fiber-rich diet and increasing physical activity as tolerated. - continue Senakot as prescribed Assessment & Plan (01/04/2024 3:38 PM EST): -Followed by [facility], last seen 08/06/22 -EGD and Colonoscopy on 12/24/21; showed Tubular Adenoma, she was recommended to repeat in 3 years. - pt has been using castor oil - continue trying fiber-rich diet and increasing physical activity as tolerated. - continue Senakot as prescribed Assessment & Plan (06/07/2023 3:33 PM EDT): -Followed by [facility], last seen 08/06/22 -EGD and Colonoscopy on 12/24/21; showed Tubular Adenoma, she was recommended to repeat in 3 years. - pt has been using castor oil - continue trying fiber-rich diet and increasing physical activity as tolerated. - continue Senakot as prescribed Assessment & Plan (12/18/2022 6:26 PM EST): -Followed by [facility], last seen 08/06/22 -EGD and Colonoscopy on 12/24/21; showed Tubular Adenoma, she was recommended to repeat in 3 years. - pt has been using castor oil - continue trying fiber-rich diet and increasing physical activity as tolerated. - continue Senakot as prescribed Chronic kidney disease, stage III (moderate) (CM S/HCC) 10/12/2022 Assessment & Plan (07/11/2025 11:30 AM EDT): - Marble[facility], Dr. Marci Hylton. Last seen on 01/25/25 - Metformin is discontinued, Dr. Tsai started her on Dapagliflozin (Farxiga) - Previously on Lisinopril, but was disccontinued due to cough / K - Avoid nephrotoxic drugs, including NSAID (no more Aleve) - Renal dose meds Assessment & Plan (04/12/2025 1:40 PM EDT): - [facility], Dr. Marci Hylton. Last seen on 01/25/25 - Metformin is discontinued, Dr. Tsai started her on Dapagliflozin (Farxiga) - Previously on Lisinopril, but was disccontinued due to cough / K - Avoid nephrotoxic drugs, including NSAID (no more Aleve) - Renal dose meds Assessment & Plan (01/21/2025 12:32 PM EDT): - [facility], Dr. Marci Hylton. Last seen on 01/25/25 - Metformin is discontinued, Dr. Tsai started her on Dapagliflozin (Farxiga) - Previously on Lisinopril, but was disccontinued due to cough / K - Avoid nephrotoxic drugs, including NSAID (no more Aleve) - Renal dose meds Assessment & Plan (07/23/2024 5:41 AM EDT): - [facility], Dr. Marci Hylton. - Metformin is discontinued, Dr. Tsai started bryn ib Dapagliflozin (Farxiga) - Previously on Lisinopril, but was disccontinued due to cough / K - Avoid nephrotoxic drugs, including NSAID (no more Aleve) - Renal dose meds Assessment & Plan (01/04/2024 3:45 PM EST): - [facility], Dr. 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 Tsai is prescribing Dapagliflozin (Farxiga) - Previously on Lisinopril, but was disccontinued due to cough / K - Avoid nephrotoxic drugs - Renal dose meds Assessment & Plan (10/03/2023 9:41 AM EST): - [facility], Dr. 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 Tsai rx Farxiga for DM management - Previously on Lisinopril, but was disccontinued due to cough / K - Avoid nephrotoxic drugs - Renal dose meds - Pt was advised that atorvastatin is not nephrotoxic and it will lower her ASCVD risk. Pt continues to decline statin therapy. Assessment & Plan (06/07/2023 3:34 PM EDT): - [facility], Dr. 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 [...] & Plan (02/24/2023 5:37 AM EDT): - Mar[facility], Dr. Tsai - Lab: 12/24/22 BUN 28, [...] & Plan (12/18/2022 6:31 PM EST): - Marble[facility], Dr. 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 [...] PM EDT): -s/p EGD 12/24/21 -followed by [facility] - Patient has been taking omeprazole tablets, but recently it was switched to capsule. Patient is unable to take capsule because it contains porcine product. -since patient is on clopidogrel, changed to pantoprazole tablet. - Being scheduled for EGD Assessment & Plan (04/22/2025 3:36 PM EDT): -s/p EGD 12/24/21 -followed by [facility] -refill famotidine as requested. Patient takes prn. -since patient is on clopidogrel, will check whether patient is taking omeprazole or pantoprazole. Assessment & Plan (01/04/2024 3:42 PM EST): -s/p EGD 12/24/21 -followed by [facility] -continue omeprazole 40mg daily -previously tried pantoprazole and lansoprazole; pt prefers omeprazole. -previously prescribed famotidine. Max dose for her renal function is 20 mg daily. Pt does not take it regularly. Assessment & Plan (10/03/2023 9:50 AM EST): -s/p EGD 12/24/21 -followed by [facility] -continue omeprazole 40mg daily -previously tried pantoprazole and lansoprazole; pt prefers omeprazole. -previously prescribed famotidine. Max dose for her renal function is 20 mg daily. Pt does not take it regularly. Assessment & Plan (06/07/2023 3:33 PM EDT): -s/p EGD 12/24/21 -followed by [facility] -continue omeprazole 40mg daily -previously tried pantoprazole and lansoprazole; pt prefers omeprazole. -previously prescribed famotidine. Max dose for her renal function is 20 mg daily. Pt does not take it regularly. Assessment & Plan (12/18/2022 6:28 PM EST): -s/p EGD 12/24/21 -followed by [facility] -continue prantoprazol 40mg daily -previously prescribed famotidine. Max dose for her renal function is 20 mg daily. Irritable bowel syndrome 10/12/2022 Assessment & Plan (07/20/2025 2:50 PM EDT): - followed by [facility] - continue current treatment plan per GI - low FODMAP diet - pt is prescribed simethicone, Sennakot, citrucel, but does not like taking it regularly Assessment & Plan (07/20/2024 1:50 PM EDT): - followed by [facility] - continue current treatment plan per GI - low FODMAP diet - pt is prescribed simethicone, Sennakot, citrucel, but does not like taking it regularly Assessment & Plan (01/04/2024 3:42 PM EST): - followed by [facility] - continue current treatment plan per GI - low FODMAP diet - pt is prescribed simethicone, Sennakot, citrucel, but does not like taking it regularly Assessment & Plan (10/03/2023 9:49 AM EST): - followed by [facility] - continue current treatment plan per GI - low FODMAP diet - pt is prescribed simethicone, Sennakot, citrucel, but does not like taking it regularly Assessment & Plan (06/07/2023 3:32 PM EDT): - followed by [facility] - continue current treatment plan per GI - low FODMAP diet - pt is prescribed simethicone, Sennakot, citrucel, but does not like taking it regularly Assessment & Plan (12/18/2022 6:27 PM EST): - followed by [facility] - continue current [...] Disliked Freestyle lite. Will switch to Freestyle [place] Treatment Hx -Pt has taken dulaglutide and [...] - Prescribed dapagliflozin (Farxiga) from PCP and reimbursement counselor, questionable adherence - Discussed about CGM, which she does not want to use it at this time Treatment Hx -Pt has taken GLP-1 agonists and had significant side effects, mainly GI. Pt states she does not want to try any GLP-1 agonist. -Patient Marbleizer prescribed Farxiga. Patient is taking this medication [...] - Prescribed dapagliflozin (Farxiga) from PCP and reimbursement counselor, questionable adherence - Discussed about CGM, which she does not want to use it at this time Treatment Hx -Pt has taken GLP-1 agonists and had significant side effects, mainly GI. Pt states she does not want to try any GLP-1 agonist. -Patient Mar[facility]izer prescribed Farxiga. Patient is taking this medication [...] want to try any GLP-1 agonist. -Patient Marbleizer prescribed Farxiga. Patient is taking this medication [...] want to try any GLP-1 agonist. -Patient Marbleizer prescribed Farxiga. Patient is no longer taking [...] want to try any GLP-1 agonist. -Patient Marbleizer prescribed Farxiga. Patient is no longer taking [...] want to try any GLP-1 agonist. -Patient Marbleizer prescribed Farxiga. Patient is no longer taking [...] want to try any GLP-1 agonist. -Patient Marbleizer prescribed Farxiga. Patient is no longer taking [...] Encounters Date Type Department Care Team Description 10/03/2025 Abstract [facility] [place] [address] Maranda Serna MD 10/03/2025 Results Follow-Up [facility] [place] [address] Maranda Serna MD Glucose, Whole Blood, Hematoxylin and Eosin Stain 09/29/2025 Orders Only GENERIC EXTERNAL DATA DEPARTMENT Provider, Generic External Data 09/28/2025 Refill [facility] [place] [address] Maranda Serna MD 08/17/2025 Orders Only GENERIC EXTERNAL DATA DEPARTMENT Provider, Generic External Data 07/22/2025 Orders Only GENERIC EXTERNAL DATA DEPARTMENT Provider, Generic External Data 07/12/2025 3:30 PM EDT Office Visit [facility] [place] [address] Maranda Serna MD Type 2 diabetes mellitus with stage 3b chronic kidney disease, with long-term current use of insulin ([facility]) (Primary Dx); Elevated blood pressure reading in office without diagnosis of hypertension; Dyslipidemia; Coronary artery disease of [place] artery of [place] heart with stable angina pectoris ([facility]); Type 2 diabetes mellitus with hyperglycemia, with long-term current use of insulin ([facility]); Stage 3b chronic kidney disease ([facility]); Anemia due to stage 3b chronic kidney disease ([facility]); Class 2 severe obesity due to excess calories with serious comorbidity and body mass index (BMI) of 36.0 to 36.9 in adult ([facility]); Gastroesophageal reflux disease, unspecified whether esophagitis present; Irritable bowel syndrome with constipation; Chronic idiopathic constipation; Obstructive sleep apnea syndrome 07/12/2025 Travel from Last 3 Months Immunizations Immunization [...] 07/12/2025 3:21 PM EDT Plan of Treatment Upcoming Encounters Date Type Department Care Team (Late st Contact Info) Description 11/08/2025 3:15 PM EST Office Visit [facility] [address] [place] [address] Maranda Serna MD [address] [place] [address] Health Maintenance Due Date Last Done Comments CT Colonography 1960 FIT DNA/Cologuard 1960 FIT 1960 FOBT 1960 HIV Screening 1960 Sigmoidoscopy 1960 Disability Screening 1960 Eye Exam 1970 Hepatitis C Screening 1978 Pap Smear 1981 Cervical Cancer Screening 1990 HPV/Cotest 1990 RSV Patients and Patients Aged 60 years or older (1 - Risk 50-74 years 1-dose series) 2010 Zoster Vaccines (1 of 2) 2010 COVID-19 Vaccine (5 - season) 2025 08/06/2024, 08/31/2021, 03/05/2021, Additional history [...] exists Mammogram 05/16/2027 05/16/2025, 04/0 12/2023, 08/21/2022 Colonoscopy 09/29/2030 09/29/2025, 07/07/2022 Colorectal Cancer Screening 09/29/2030 DTaP/Tdap/Td Vaccines (3 - Td or Tdap) [...] on patient's age to complete this topic Goals Goal Patient Goal Type Associated Problems Recent Progress Patient-Stated? Author Help patients manage their type 2 diabetes Care Plan Help patients manage their type 2 diabetes Maranda Clark MD Weekly blood pressure task Care Plan Weekly blood pressure task Maranda Clark MD Help patients manage their type 2 diabetes Care Plan Help patients manage their type 2 diabetes Maranda Clark MD Patient has chronic kidney disease Care Plan Patient has chronic kidney disease Maranda Clark MD Weekly blood pressure task Care Plan Weekly blood pressure task No Ayse Arce MA Weekly blood pressure task Care Plan Weekly blood pressure task No Ayse Arce MA Patient has chronic kidney disease Care Plan Patient has chronic kidney disease No Ayse Arce MA Patient has chronic kidney disease Care Plan Patient has chronic kidney disease No Ayse Arce MA Procedures Procedure Name Priority Date/Time Associated Diagnosis Comments HEMATOXYLIN AND EOSIN STAIN Routine 09/29/2025 12:27 PM EST GLUCOSE, WHOLE BLOOD Routine 09/29/2025 11:43 AM EST HM COLONOSCOPY Routine 09/29/2025 GLUCOSE, WHOLE BLOOD Routine 08/17/2025 1:39 PM [...] with long-term current use of insulin (CMS/HCC) BI MAMMOGRAM SCREENING TOMOSYNTHESIS BILATERAL Routine 05/16/2025 12:30 PM EDT Breast cancer screening by mammogram from Last 3 Months or Most Recently Relevant to Health Maintenance Results * Hematoxylin and Eosin Stain (09/29/2025 12:27 PM EST) 09/29/2025 12:2 7 PM EST 09/29/2025 1:41 PM EST [facility] - 10/03/2025 1:51 PM EST ----- ------- Name: Ese Mendoza Age/Sex: 64/F : 1960 Unit#: [id number] Attend Dr: Carline James MD Re09/29/25 Status: [facility] Location: [facility] Disch: ----- ------- SPEC : [id number] RECD: 09/29/25-200 STATUS: EVELIO ORTIZ NUM: [id number] BREN: 09/29/25-[address]: Carline James MD ENTERED: 09/29/25-6217 SP TYPE: Surgical OTHR DR: Maranda Serna MD ORDERED: HE Stain/12, Gross Micro L4/4, Special st. 2, AB/PAS Diagnosis A. EG junction, biopsy: - Cardiac-type mucosa with moderate chronic inactive inflammation; no intestinal metaplasia seen. - Squamous epithelium within normal limits. B. Colon, ascending, polypectomy: Tubular adenoma; negative for high-grade dysplasia or carcinoma. C. Colon, descending, polypectomy: Fragments of tubular adenoma; negative for high- grade dysplasia or carcinoma. D. Colon, sigmoid, polypectomy: Fragments of tubular adenoma; negative for high-grade dysplasia or carcinoma. Clinical History Pre-Op Dx: Reflux, history of colon polyp Post-Op Dx: R/o Dumont's, melanosis coli, diverticulosis, colon polyps, hemorrhoids Microscopic Description A-D. Microscopic sections examined. No metaplastic changes are seen, supported by AB/PAS stains (A). Material Received A. EG junction bx's - r/o Dumont's B. Ascending colon polyp C. Descending colon polyp D. Sigmoid colon polyp Gross Description Received in 4 parts. A. Received in formalin labeled GE junction biopsies are 4 fragments of ngo-white soft tissue measuring 0.4-0.5 cm in greatest dimension which are entirely submitted for microscopic examination, 4 pieces in cassette A. B. Received in formalin labeled ascending colon polyp is a fragment of ngo-white soft tissue measuring 0.4 cm in greatest dimension which is entirely submitted for microscopic examination, 1 piece in cassette B. CONTINUED ON NEXT PAGE ----- ------- Name: Ese Mendoza Age/Sex: 64/F : 1960 [id number] Unit#: [id number] Attend Dr: Carline James MD Re09/29/25 Status: [facility] Location: [place] Disch: ----- ------- SPEC : [id number] RECD: 09/29/25 STATUS: EVELIO ORTIZ NUM: [id number] BREN: 09/29/25 [facility] DR: Carline James MD ENTERED: 09/29/25 SP TYPE: Surgical OTHR DR: Maranda Serna MD ORDERED: HE Stain/12, Gross Micro L4/4, Special st. 2, AB/PAS Gross Description (Continued) C. Received in formalin labeled descending colon polyp are 3 fragments of ngo-white soft tissue measuring 0.4-0.5 cm in greatest dimension which are entirely submitted for microscopic examination, 3 pieces in cassette C. D. Received in formalin labeled sigmoid colon polyp are 4 fragments of ngo-white soft tissue measuring 0.3-0.4 cm in greatest dimension which are entirely submitted for microscopic examination, 4 pieces in cassette D. ([facility]) Special studies ordered and performed: AB/PAS stains on A IHC S/NG Disclaimer NOTE: Unless otherwise stated, all tissue is formalin-fixed and paraffin-embedded. Some or all of the immunohistochemical tests reported herein may have been developed and their performance characteristics determined by [facility]. They have not been cleared or approved by the U.S. Food and Drug Administration (FDA). However, the FDA has determined that such clearance or approval is not necessary. This laboratory is certified under the Clinical Laboratory Improvement Amendments of 1988 (CLIA) as qualified to perform high complexity clinical laboratory testing. Copies To: Maranda Serna MD [address] [address] Carline James MD [facility] [address] [place] [phone] [email or web address] ------- Signed (signature on file) Refugio Golden MD 10/03/25 1351 ----- ------- END OF REPORT Generic External Data Provider LAB BLOOD ORDERAB LES Final Result Performing Organization Address City/[facility]/ZIP Co de Phone Number [facility] [address] [place] [phone] * (ABNORMAL) Glucose, Whole Blood (09/29/2025 11:43 AM EST) Glucose, Whole Blood 153(H) 60 - 115 mg/dL [facility] Comment:METER #: [id number] 09/29/2025 11:4 3 AM EST 09/29/2025 11:47 AM EST Generic External Data Provider LAB BLOOD ORDERAB LES Final Result Performing Organization Address [facility]/ZIP Co de Phone Number [facility] [address], [place] [phone] * (ABNORMAL) Hm Colonoscopy (09/29/2025) Colonoscopy Abnormal(A ) Normal Historical Provider HEALTH MAINTENANCE Final Result * (ABNORMAL) Glucose, Whole Blood (08/17/2025 1:39 PM EDT) Glucose, Whole Blood 314(H) 60 - 115 mg/dL [facility] Comment:METER #: [id number] 0Testing performed in the Endocrinology Department [address] , [address], [facility]. 08/17/2025 1:39 PM EDT 08/17/2025 1:44 PM EDT Generic External Data Provider LAB BLOOD ORDERAB LES Final Result Performing Organization Address [facility]/ZIP Co de Phone Number [facility] [address] [place] [phone] * TSH with Reflex to Free T4 (07/22/2025 9:40 AM EDT) Pathologist [facility] TSH reflex Free T4 3.28 0.32 - 4.0 uIU/mL [facility] 07/22/2025 9:40 AM EDT 07/22/2025 9:46 AM EDT Generic External Data Provider LAB BLOOD ORDERAB LES Final Result Performing Organization Address [facility]/ZIP Co de Phone Number [facility] [address] [place] [phone] * (ABNORMAL) CBC auto differential (07/22/2025 9:40 AM EDT) Pathologist [facility] White Blood Count 7.2 4.8 - 10.8 X10*3/uL [facility] Red Blood Count 4.00(L) 4.20 - 5.50 X10*6/uL [facility] Hemoglobin 11.5(L) 12.0 - 16.0 g/dl [facility] Hematocrit 37.7 37.0 - 47.0 % [facility] Mean Corpuscular Volume 94.3 80.0 - 98.[address] [facility] Mean Corpuscular Hemoglobin 28.8 27.0 - 33.[address] [facility] Mean Corpuscular HGB Conc 30.5(L) 31.0 - 35.0 g/dl [facility] Red Cell Distribution Width 14.1 11.0 - 16.0 % [facility] Platelet Count 266 160 - 400 X10*3/uL [facility] Mean Platelet Volume 9.7 9.4 - 12.[address] [facility] Neutrophils Percent Auto 60.6 45 - 73 % [facility] Imm Gran Pct Auto 0.1 0.0 - 0.4 % [facility] Lymphocytes Percent Auto 28.9 20 - 40 % [facility] Monocytes Percent Auto 7.6 2 - 11 % [facility] Eosinophils Percent Auto 2.1 0 - 4 % [facility] Basophils Percent Auto 0.7 0 - 2 % [facility] NRBC Pct Auto 0.0 0.0 - 0.2 /100WBC [facility] Neutrophils Absolute Auto 4.4 2.0 - 8.3 x10*3/uL [facility] Imm Gran Abs Auto 0.01 0.00 - 0.03 X10*3/uL [facility] Lymphocytes Absolute Auto 2.1 1.2 - 4.9 X10*3/uL [facility] Monocytes Absolute Auto 0.6 0.1 - 1.2 X10*3/uL [facility] Eosinophils Absolute Auto 0.2 0.0 - 0.4 X10*3/uL [facility] Basophils Absolute Auto 0.1 0.0 - 0.2 X10*3/uL [facility] NRBC Abs Auto 0.000 0.0 - 0.012 X10*3/uL [facility] 07/22/2025 9:40 AM EDT 07/22/2025 9:46 AM EDT us Generic External Data Provider LAB BLOOD ORDERAB LES Final Result [facility] [address] [place] [phone] * Immunoglobulin E (07/22/2025 9:40 AM EDT) Immunoglobulin E 3 <ZE=587 kU/L [facility] Comment:THIS TEST WAS PERFOR MED AT:[employer] [place] [phone] CRONIN MD 07/22/2025 9:40 AM EDT 07/22/2025 9:46 AM EDT us Generic External Data Provider LAB BLOOD ORDERAB LES Final Result [facility] [address] [place] [phone] * Lipid Panel, Standard (07/22/2025 9:40 AM EDT) Triglycerides 81 <150 mg/dL [facility] Comment:Desirable Triglyceri de: less than 150 mg/dLBorderline High Triglyceride 150-199 mg/dLHigh Triglyceride: 200-499 mg/dLVery High Triglyceride: greater than or equal to 5OO mg/dL Cholesterol 140 <200 mg/dL [facility] Comment:Desirable Cholestero l: less than 200 mg/dLBorderline High Cholesterol: 200-239 mg/dLHigh Cholesterol: greater than 239 mg/dL LDL Cholesterol Calculated 69 <100 mg/dL [facility] Comment:Desirable LDL: less than 100 mg/dLNear Optimal/Above Optimal LDL: 110- 129 mg/dLBorderline High LDL: 130-159 mg/dLHigh LDL: 160-189 mg/dLVery High LDL: greater than or equal to 190 mg/dL HDL Cholesterol 55 >40 mg/dL [facility] Comment:Desirable HDL: great er than 40 mg/dL Note: This HDL assay may give artificially low results in patients with liver disease. 07/22/2025 9:40 AM EDT 07/22/2025 9:46 AM EDT us Generic External Data Provider LAB BLOOD ORDERAB LES Final Result Performing Organization Address [facility]/State/ZIP Co de Phone Number [facility] [address] [place] [phone] * (ABNORMAL) POCT HGB A1C (07/12/2025 [...] Media Lot # [id number] Lot# Expiration Date [id number] Blood Capillary blood specimen / Unknown 07/12/2025 3:24 PM EDT Maranda Serna MD POINT OF CARE TEST ENTER/EDIT OR DERABLES Final Result * BI Mammogram Screening Tomosynthesis Bilateral (05/16/2025 12:30 PM EDT) Anatomical Region Laterality Modality Breast Bilateral Mammography 05/16/2025 12:3 0 PM EDT Narrative 05/26/2025 7:54 PM EDT [facility] [address] [place] [address] Mammography Report Signed with Addenda Patient: Ese Mendoza MR#: [id number] 8 : 1960 Acct:[id number] Age/Sex: 64 / F ADM Date: 05/16/25 Loc: [place] Attending Dr: Maranda Serna MD Ordering Physician: Maranda Serna MD Results: 2Benign F indings Date of Service: 05/16/25 Follow Up: 1 Year From Orig inal Mammogram Procedure(s): MM tomosynthesis screening BI Accession Number(s): [id number] cc: Maranda Serna MD ADDENDUM ADDENDUM #2 [...] OV> 05/26/251950 DD/ 1230 TD/TT: 05/16/25 1245 [facility]: Procedure Note Donotuseinterpreter, Image - 07/19/2025 [facility] [address] [place] [address] [place] [address] Mammography Report Signed with Addenda Patient: Ese MendozaMR#: [id number] 8 : 1960Acct:[id number] Age/Sex: 64 / FADM Date: 05/16/25 Loc: [place] Attending Dr: Maranda Serna MD Ordering Physician: Maranda Serna MDResults: 2Benign F indings Date of Service: 05/16/25Follow Up: 1 Year From Orig inal Mammogram Procedure(s): MM tomosynthesis screening BI Accession Number(s): [id number] cc: Maranda Serna MD ADDENDUM ADDENDUM #2 [...] OV> 05/26/251950 DD/ 1230 TD/TT: 05/16/25 1245 [facility]: Maranda Serna MD IM BI PROCEDURES Edited Result - Final from Last 3 Months or Most Recently Relevant to Health Maintenance Additional Health Concerns Active Problems Noted Date Diagnosed Date Help patients manage their type 2 diabetes 10/03 Weekly blood pressure task 10/03/2025 Help patients manage their type 2 diabetes 10/03 Patient has chronic kidney disease 10/03/2025 Weekly blood pressure task 10/03/2025 Weekly blood pressure task 10/03/2025 Patient has chronic kidney disease 10/03/2025 Patient has chronic kidney disease 10/03/2025 Insurance [facility] C3 Care Teams Lavender Farm Worker Relationship Specialty Start Date End Date Maranda eSrna MD [address] [place] [phone] PCP - General Family Medicine 08/01/21
--- OUTSIDE RECORDS SUMMARY | 2025-10-10 12:52 | XMS_ITS | Encounter Summary ---
Author Organization [employer] [facility] Address [address] [facility] 7[address] [place] [address] Care Team Providers Care Principal Automation Engineer Name Role Phone Maranda Serna MD Primary Care Provider [phone] Reason for Visit * Reason Onset Date Comments Hospital Follow-up 12/07/2024 Encounter Details Date Type Department Care Team ([facility] Contact Info) Description 12/07/2024 Telephone [facility] [address] [place], [place] [phone] Maranda Serna MD [address] [place], [place] [phone] Hospital Follow-up Social History Tobacco Use Types [...] follow up. Pt requested a call back. [phone] (Pt Contact) documented in this encounter Plan of Treatment Upcoming Encounters Date Type Department Care Team (Late st Contact Info) Description 11/08/2025 3:15 PM EST Office Visit [facility] [address] [place] [phone] Maranda Serna MD [address] [place] [address] documented as of this encounter Visit Diagnoses Not on filedocumented in this encounter Additional Health Concerns Assessment Noted Time PHQ-9 Depression Total Score: 6 10/23/20 22 10:04 AM EST documented as of this encounter Care Teams Principal Automation Engineer Relationship Specialty Start Date End Date Maranda Serna MD [address] [place] [address] PCP - General Family Medicine 08/01/21 documented as of this encounter
--- OUTSIDE RECORDS SUMMARY | 2025-10-10 12:53 | XMS_ITS | Encounter Summary ---
Author Organization [facility] Address [address] [place] [address] Care Team Providers Care Transport Technician Name Role Phone Viet Sánchez Unavailable [phone] Viet Sánchez Primary Care Provider Encounter Details Date Type Department Care Team (Late st Contact Info) Description 05/22/2020 Scanned Document [facility] [address] [phone] Deja Rico, [place] [address] Social History Tobacco Use Types Packs/Day Years [...] on filedocumented in this encounter Care Teams Transport Technician Relationship Specialty Start Date End Date Viet Sánchez PA [address] [place] [address] PCP - General 06/18/18 Viet Sánchez PA [address] [place] [address] 06/18/18 documented as of this encounter
--- OUTSIDE RECORDS SUMMARY | 2025-10-10 12:53 | XMS_ITS | Clinical Summary ---
Author Organization [facility] Address [address] [place] [address] Phone Care Team Providers Care Tile Layer Name Role Phone Machelle Swann MD Primary Care Provider [phone] Allergies Active Allergy Reactions Criticality Noted Date [...] 42 mcg (0.06 %) nasal spray 1 [place] by Nasal route. 09/24/20 Active omega-3 acid [...] osteoarthritis; plantar fasciitis - referred to a bar catcher; waiting for an appt - check the [...] and cough -Currently prescribed Dapagliflozin from animal handler -Follow up in 3-6 mo, sooner if [...] Last Assessment & Plan: - followed by [facility] GI - no anatomical [...] (08/25/2024): Last Assessment & Plan: -Followed by [facility] GI, last seen 08/06/22 -EGD and Colonoscopy on 12/24/21; showed Tubular Adenoma, she was recommended to repeat in 3 years. - pt has been using castor oil - continue trying fiber-rich diet and increasing physical activity as tolerated. - continue Senakot as prescribed Chronic kidney disease, stag e III (moderate) ([facility] V24, [facility] V28) 10/12/2022 Overview (08/25/2024): Last Assessment & Plan: - Engagement Manager, Dr. 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 Tsai is prescribing Dapagliflozin (Farxiga) - Previously on Lisinopril, but was disccontinued due to cough / K - Avoid nephrotoxic drugs - Renal dose meds Gastroesophageal reflux disease 10/12/2022 Overview (08/25/2024): Last Assessment & Plan: -s/p EGD 12/24/21 -followed by [facility] GI -continue omeprazole 40mg daily -previously tried pantoprazole and lansoprazole; pt prefers omeprazole. -previously prescribed famotidine. Max dose for her renal function is 20 mg daily. Pt does not take it regularly. Irritable bowel syndrome 10/12/2022 Overview (08/25/2024): Last Assessment & Plan: - followed by [facility] GI - continue current treatment plan per GI - low FODMAP diet - pt is prescribed simethicone, Sennakot, citrucel, but does not like taking it regularly Osteopenia 10/12/2022 Atrial fibrillation ([facility] V24, [facility] V28) 0 12/25/2021 Cobalamin deficiency 12/25/2021 Diabetic retinopathy ([facility] [place], [facility] V28) 12/25/2021 Nephrolithiasis 12/25/2021 Overview (08/25/2024): Last Assessment & Plan: - seen by urologist, last visit on Vitamin D deficiency 12/25/2021 Diabetic peripheral neuropat hy associated with type 2 diabetes mellitus ([facility] V24, [facility] V28) 11/22/2019 Nonrheumatic mitral valve [...] with acute exacerbati on 01/26/2019 Pulmonary hypertension ([facility] V24, [facility] V28 ) 12/31/2018 Pulmonary arterial hypertension ([facility] V24, [facility] V28) 11/19/2018 Ulcer of foot ([facility] V24, [facility] V28) 011 Encounters Date Type Department Care Team Description 08/18/2025 3:00 PM EDT Office Visit [facility] [place] [address] [place] [phone] Damien Centeno DPM Controlled type 2 diabetes mellitus with diabetic polyneuropathy, without long-term current use of insulin ([facility] V24, [facility] V28) (Primary Dx); Pain in toes of [...] PM EST Office Visit Orthopedic Surgery [place] [phone] [phone] Damien Centeno, VENES[place] [address] [address] Health Maintenance Due Date Last Done Comments [...] Screening 12/10/2023 Depression Screening 11/10/2024 COVID-19 Vaccine ( season) 2025 08/06/2024, 08/31/2021, 03/05/2021, Additional history [...] Test (12/30/2023) Annual BMP Blood Test Abstracted [facility] Provider HEALTH MAINTENANCE Final Result * Hemoglobin A1c (12/30/2023) Pathologist [facility] Hemoglobin A1C 0.0 % Comment:no interpretation Blood Venous blood specimen / Unknown Result [facility] Provider LAB BLOOD ORDERABLES Machelle l Result * Lipid panel (12/30/2023) Pathologist [facility] Triglycerides 0 mg/dL Comment:no interpretation Cholesterol 0 mg/dL Comment:no interpretation HDL 0 mg/dL Comment:no interpretation LDL Cholesterol 0 mg/dL Comment:no interpretation Blood Venous blood specimen / Unknown Result [facility] Provider LAB BLOOD ORDERABLES Machelle l Result * Urine Albumin Creatinine Ratio (07/24/2022) Pathologist [facility] Urine Albumin Creatinine Ratio Abstracted [facility] Provider HEALTH MAINTENANCE Final Result from Last 3 Months or Most Recently Relevant to Health Maintenance Insurance [place] Care Teams Tile Layer Relationship Specialty Start Date End Date Machelle Swnan MD [address] [place] [address] [place] [address] PCP - General 10/15/12
--- OUTSIDE RECORDS SUMMARY | 2025-10-10 12:53 | XMS_ITS | Clinical Summary ---
Author Organization [facility] Address [address] [place] [address] Care Team Providers Care Healthcare Market Consultant Name Role Phone Viet Sánchez Primary Care [...] lumbar spine. Will obtain interval history from swatch cutter Karlee Le. - RTC in 4 months [...] of 2) 2010 COVID-19 Vaccine (1 - 2024-2 6 season) 2025 Influenza Vaccine (#1) 2025 HIV [...] polyneuropathy, with long-term current use of insulin ([facility]) POCT HEMOGLOBIN, A1C Routine 02/09/2019 8:10 AM EDT Type 2 diabetes mellitus with diabetic polyneuropathy, with long-term current use of insulin ([facility]) HIV COMBO ANTIGEN/ANTIBODY Routine 10/06/2018 3:59 PM EST Polyarthralgia from Last 3 Months or Most Recently Relevant to Health Maintenance Results * Microalbumin/creatinine ratio (02/09/2019 10:15 AM EDT) Microalbumin/Creat Ratio 20 2 - 20 mg/g Creat 02/09/2019 11:55 AM EDT [facility] Creatinine, Urine, Random 101 mg/dL 02/09/2019 11:55 AM EDT [facility] Comment: The laboratory does not have established reference ranges for this test. Interpretation of results is at the discretion of the ordering physician. Urine specimen (specimen) Urine specimen obtained by clean catch procedure / Unknown Non-blood Collection / Unknown 02/09/2019 10:15 AM EDT 02/09/2019 10:15 AM EDT us Keke Katz APRN LAB URINE ORDERABLES Final Res ult [facility] [address] [place] [address], [place] [phone] * POCT hemoglobin, A1c (02/09/2019 8:10 AM EDT) POCT Hemoglobin A1C 9.2 4.4 - 6.4 % Blood specimen (specimen) 02/09/2019 8:10 AM EDT us Keke Katz COMPUTING SYSTEMS MECHANIC POCT ORDERABLES NO CHARGE Machelle l Result * HIV combo antigen/antibody (10/06/2018 3:59 PM EST) HIV Combo AB/AG Negative Negative 10/06/2018 6:02 PM EST [facility] Blood specimen (specimen) Venous blood specimen / Unknown Venipuncture / Unknown 10/06/2018 3:59 PM EST 10/06/2018 3:59 PM EST Narrative [facility] - 10/06/2018 6:02 PM EST This test is a 4th generation HIV Antigen-Antibody Combination assay, using a chemiluminescent microparticle immunoassay, for the simultaneous qualitative detection of human immuno- deficiency virus (HIV) p24 antigen and antibodies to HIV type 1 (HIV-1) and/or HIV type 2 (HIV-2) in human serum or plasma. The [employer] Test Borer HIV Ag/Ab Combo assay is intended to [...] BLOOD ORDERABLES NO ST AT Final Result [facility] [address] [place] [address], [place] [phone] from Last 3 Months or Most Recently Relevant to Health Maintenance Insurance MEDICAID [place] D Care Teams Healthcare Market Consultant Relationship Specialty Start Date End Date Viet Sánchez PA [address] [place] [address] PCP - General Family Medicine 07/22/18
--- OUTSIDE RECORDS SUMMARY | 2025-10-10 12:53 | XMS_ITS | Encounter Summary ---
Author Organization [facility] Address [address] [place] [address] Care Team Providers Care Polisher Sand Name Role Phone Viet Sánchez Unavailable [phone] Viet Sánchez Primary Care Provider Encounter Details Date Type Department Care Team (Late st Contact Info) Description 08/06/2018 Scanned Document [facility] Urologic Surgery [place] [address] [facility] [address] [place] [address] Provider, MD Sheryl [address] [place] [address] Social History Tobacco Use Types Packs/Day Years [...] on filedocumented in this encounter Care Teams Polisher Sand Relationship Specialty Start Date End Date Viet Sánchez PA [address] [place] [address] PCP - General 06/18/18 Viet Sánchez PA [address] [place] [phone] 06/18/18 documented as of this encounter
--- OUTSIDE RECORDS SUMMARY | 2025-10-10 12:53 | XMS_ITS | Encounter Summary ---
Author Organization [employer] Address [address] [facility] 7[address] [place] [address] Care Team Providers Care Head Athletic Trainer Name Role Phone Maranda Serna MD Primary Care Provider [phone] Reason for Visit * Reason Onset Date Comments Durable Medical Equipment 05/26/2024 Encounter Details Date Type Department Care Team ([facility] st Contact Info) Description 05/26/2024 Telephone [facility] [address] [place], [place] [phone] Maranda Serna MD [address] [place], [place] [phone] Durable Medical Equipment Social History Tobacco Use [...] walker. Pt stated she was advised by test engine operator jigneshow up with orthopedic and they prescribed a walker for the pt. Pt wants script send over to [facility] [address] If any questions you can contact pt at [phone]. documented in this encounter Plan of Treatment Upcoming Encounters Date Type Department Care Team ([facility] st Contact Info) Description 11/08/2025 3:15 PM EST Office Visit [facility] [address] [place] [phone] Maranda Serna MD [address] [place] [address] documented as of this encounter Visit Diagnoses Not on filedocumented in this encounter Additional Health Concerns Assessment Noted Time PHQ-9 Depression Total Score: 6 10/23/20 22 10:04 AM EST documented as of this encounter Care Teams Head Athletic Trainer Relationship Specialty Start Date End Date Maranda Serna MD [address] [place] [address] PCP - General Family Medicine 08/01/21 documented as of this encounter
--- OUTSIDE RECORDS SUMMARY | 2025-10-10 12:53 | XMS_ITS | Encounter Summary ---
Author Organization [employer] Address 75 [facility] 7t [place] [address] Care Team Providers Care Environmental Health And Safety Manager Name Role Phone Maranda Serna MD Primary Care Provider [phone] Reason for Visit * Reason Comments Med Refill Encounter Details Date Type Department Care Team ([facility] st Contact Info) Description 11/19/[address] [facility] [address] [place], [place] [phone] Yesica Naylor MD [address] [place] [address] Social History Tobacco Use Types Packs/Day Years [...] Description 11/08/2025 3:15 PM EST Office Visit [facility] [address] [place] [address] Maranda Serna MD 230 [place] [address] documented as of this encounter Visit Diagnoses Not on filedocumented in this encounter Additional Health Concerns Assessment Noted Time PHQ-9 Depression Total Score: 6 10/23/20 22 10:04 AM EST documented as of this encounter Care Teams Environmental Health And Safety Manager Relationship Specialty Start Date End Date Maranda Serna MD [address] [place] [address] PCP - General Family Medicine 08/01/21 documented as of this encounter
--- OUTSIDE RECORDS SUMMARY | 2025-10-10 12:53 | XMS_ITS | Encounter Summary ---
Author Organization [facility] Address [address] [place] [address] Care Team Providers Care Robotics Technician Name Role Phone Viet Sánchez Unavailable [phone] iVet Sánchez Primary Care Provider Encounter Details Date Type Department Care Team (Late st Contact Info) Description 11/09/2019 Prep for Surgery [facility] [address] [place] [address] Holland Hunt MD [address] [place] [address] Social History Tobacco Use Types Packs/Day Years [...] on filedocumented in this encounter Care Teams Robotics Technician Relationship Specialty Start Date End Date Viet Sánchez PA [address] [place] [address] PCP - General 06/18/18 Viet Sánchez PA [address] [place] [address] 06/18/18 documented as of this encounter
--- OUTSIDE RECORDS SUMMARY | 2025-10-10 12:53 | XMS_ITS | Encounter Summary ---
Author Organization [employer] Address 75 [facility] 7t [place] [address] Care Team Providers Care Film Developing Machine Operator Name Role Phone Maranda Serna MD Primary Care Provider [phone] Reason for Visit * Reason Comments Med Refill Encounter Details Date Type Department Care Team ([facility] st Contact Info) Description 01/12/2025 Refill [facility] [address] [place], [place] [phone] Yesica Naylor MD 230 [place] [address] Social History Tobacco Use Types Packs/Day Years [...] Description 11/08/2025 3:15 PM EST Office Visit [facility] [address] [place] [address] Maranda Serna MD 230 [place] [address] documented as of this encounter Visit Diagnoses Not on filedocumented in this encounter Additional Health Concerns Assessment Noted Time PHQ-9 Depression Total Score: 6 10/23/20 22 10:04 AM EST documented as of this encounter Care Teams Film Developing Machine Operator Relationship Specialty Start Date End Date Maranda Serna MD [address] [place] [address] PCP - General Family Medicine 08/01/21 documented as of this encounter
--- OUTSIDE RECORDS SUMMARY | 2025-10-10 12:53 | XMS_ITS | Encounter Summary ---
Author Organization [employer] Address 75 [facility] 7t [place] [address] Care Team Providers Care Architectural Examiner Name Role Phone Maranda Serna MD Primary Care Provider [phone] Reason for Referral * Imaging (Routine) - Closed Specialty Diagnoses / Procedures Referred By Rodney hussein Referred To Contact Radiology Diagnoses Pulmonary nodule Procedures CT Chest w/o Contrast Maranda Serna MD [address] [place] [address] Phone: tel: fax: [facility] [address] [place] [phone] Phone: tel: fax: Referral ID Status Reason Start Date Expiration Date Visits Re quested Visits Authorized [id number] Closed 02/07/2025 02/07/2026 1 1 Encounter Details Date Type Department Care Team (Late st Contact Info) Description 02/07/2025 Orders Only [facility] [address] [place], [place] [phone] Maranda Serna MD [address] [place], [place] [phone] Pulmonary nodule (Primary Dx) Social History Tobacco [...] Description 11/08/2025 3:15 PM EST Office Visit [facility] [address] [place] [address] Maranda Serna MD [address] [place] [address] documented as of this encounter Procedures Procedure Name Priority Date/Time Associated Diagnosis Comments CT CHEST WO CONTRAST Routine 02/25/2025 11:15 AM EDT Pulmonary nodule documented in this encounter Results * CT Chest w/o Contrast (02/25/2025 11:15 AM EDT) Anatomical Region Laterality Modality Body, Chest Computed Tomogra phy 02/25/2025 11:1 5 AM EDT Narrative 02/25/2025 11:59 AM EDT [place] [address] [address] Scan Report Signed Patient: Ese Mendoza MR#: [id number] 8 : 1960 Acct:[id number] Age/Sex: 64 / F ADM Date: 02/25/25 Loc: HO.CT Attending Dr: Maranda Serna MD Ordering Physician: Maranda Serna MD Date of Service: 02/25/25 Procedure(s): CT chest wo IV con Accession Number(s): [id number] cc: Maranda Serna MD Report Number: [id number]: Total DLP = 183.00 mGy-cm EXAMINATION: CT [...] reconstruction technique DLP: 183 mGy centimeter. FINDINGS: INTERIOR DECORATOR: Large body habitus. Vascular clips right upper [...] 02/25/25 1155 DD/ 1115 TD/TT: 02/25/25 1124 Physician Assistant Psychiatry: Procedure Note Donotuseinterpreter, Image - 02/25/[address] [place] [address] [address] Scan Report Signed Patient: Ese MendozaMR#: [id number] 8 : 1960Acct:[id number] Age/Sex: 64 / FADM Date: 02/25/25 Loc: HO.CT Attending Dr: Maranda Serna MD Ordering Physician: Maranda Serna MD Date of Service: 02/25/25 Procedure(s): CT chest wo IV con Accession Number(s): [id number] cc: Maranda Serna MD Report Number: [id number]: Total DLP = 183.00 mGy-cm EXAMINATION: CT [...] reconstruction technique DLP: 183 mGy centimeter. FINDINGS: INTERIOR DECORATOR: Large body habitus. Vascular clips right upper [...] 02/25/25 1155 DD/ 1115 TD/TT: 02/25/25 1124 Physician Assistant Psychiatry: Maranda Serna MD [facility] CT PROCEDURES Edited Result - Final documented in this encounter Visit Diagnoses Diagnosis Pulmonary nodule- Primary Other diseases of lung, not elsewhere classified documented in this encounter Additional Health Concerns Assessment Noted Time PHQ-9 Depression Total Score: 0 01/18/20 25 1:12 PM EDT documented as of this encounter Care Teams Architectural Examiner Relationship Specialty Start Date End Date Maranda Serna MD [address] [place] [address] PCP - General Family Medicine 08/01/21 documented as of this encounter
--- OUTSIDE RECORDS SUMMARY | 2025-10-10 12:53 | XMS_ITS | Encounter Summary ---
Author Organization [employer] Address 75 [facility] 7t [place] [address] Care Team Providers Care Concept Artist Name Role Phone Maranda Serna MD Primary Care Provider [phone] Reason for Visit * Reason Onset Date Comments Appointment Request 05/28/2024 Encounter Details Date Type Department Care Team ([facility] st Contact Info) Description 05/28/2024 Telephone [facility] [address] [place], [place] [phone] Maranda Serna MD [address] [place], [place] [phone] Appointment Request Social History Tobacco Use Types [...] Description 11/08/2025 3:15 PM EST Office Visit [facility] [address] [place] [address] Maranda Serna MD [address] [place] [address] documented as of this encounter Visit Diagnoses Not on filedocumented in this encounter Additional Health Concerns Assessment Noted Time PHQ-9 Depression Total Score: 6 10/23/20 22 10:04 AM EST documented as of this encounter Care Teams Concept Artist Relationship Specialty Start Date End Date Maranda Serna MD [address] [place] [address] PCP - General Family Medicine 08/01/21 documented as of this encounter
--- OUTSIDE RECORDS SUMMARY | 2025-10-10 12:53 | XMS_ITS | Clinical Summary ---
Author Organization [facility] Address [address] [place] [address] Care Team Providers Care Cyber Security Administrator Name Role Phone ChapispriscillaViet Primary Care Provider [phone] Allergies Active Allergy Reactions Criticality Noted Date [...] age to complete this topic Care Teams Cyber Security Administrator Relationship Specialty Start Date End Date Viet Sánchez [address] [place] [address] PCP - General Medical Services 06/19/18
--- OUTSIDE RECORDS SUMMARY | 2025-10-10 12:53 | XMS_ITS | Encounter Summary ---
Author Organization Former[facility] Address [address] [place] [address] Care Team Providers Care Tannery Gummer Name Role Phone Viet Sánchez Unavailable [phone] Viet Sánchez Primary Care Provider Encounter Details Date Type Department Care Team (Late st Contact Info) Description 02/02/2020 Prep for Surgery [facility] [address] [place] [address] Holland Hunt MD [address] [place] [address] Social History Tobacco Use Types Packs/Day Years [...] on filedocumented in this encounter Care Teams Tannery Gummer Relationship Specialty Start Date End Date Viet Sánchez PA [address] [place] [address] PCP - General 06/18/18 Viet Sánchez PA [address] [place] [address] 06/18/18 documented as of this encounter
--- OUTSIDE RECORDS SUMMARY | 2025-10-10 12:53 | XMS_ITS | Encounter Summary ---
Author Organization [employer] Address 75 [facility] 7t [place] [address] Care Team Providers Care Foreign Clerk Name Role Phone Maranda Serna MD Primary Care Provider Encounter Details Date Type Department Care Team (Late st Contact Info) Description 04/22/2023 Orders Only [facility] [address] [place], [place] [phone] Maranda Serna MD [address] [place] [address] Left foot pain (Primary Dx); Type 2 diabetes mellitus with hyperglycemia, with long-term current use of insulin ([facility]) Social History Tobacco Use Types [...] EST Office Visit [facility] [address] [place] [address] Maranda Serna MD [address] [place] [address] documented as of this encounter Visit Diagnoses Diagnosis Left foot pain- Primary Pain in soft tissues of limb Type 2 diabetes mellitus with hyperglycemia, with long-term current use of insulin (HCC) documented in this encounter Additional Health Concerns Assessment Noted Time PHQ-9 Depression Total Score: 6 10/23/20 22 10:04 AM EST documented as of this encounter Care Teams Foreign Clerk Relationship Specialty Start Date End Date Maranda Serna MD [address] [place] [address] PCP - General Family Medicine 08/01/21 documented as of this encounter
--- OUTSIDE RECORDS SUMMARY | 2025-10-10 12:53 | XMS_ITS | Encounter Summary ---
Author Organization [employer] Address 75 [facility] 7t [place] [address] Care Team Providers Care Central Scheduler Name Role Phone Maranda Serna MD Primary Care Provider [phone] Encounter Details Date Type Department Care Team ([facility] st Contact Info) Description 10/03/2025 Results Follow-Up [facility] [address] [place] [address] Maranda Serna MD [address] [place] [address] Glucose, Whole Blood, Hematoxylin and Eosin Stain Social History Tobacco Use Types Packs/Day Years [...] Description 11/08/2025 3:15 PM EST Office Visit [facility] [address] [place] [address] Maranda Serna MD [address] [place] [address] documented as of this encounter Goals Goal Patient Goal Type Associated Problems Recent Progress Patient-Stated? Author Help patients manage their type 2 diabetes Care Plan Help patients manage their type 2 diabetes Maranda Clark MD Weekly blood pressure task Care Plan Weekly blood pressure task No Maranda Serna MD Help patients manage their type 2 [...] chronic kidney disease No Ayse Arce [place] documented as of this encounter Visit Diagnoses Not on filedocumented in this encounter Additional Health Concerns Active Problems Noted Date Diagnosed Date Help patients manage their type 2 diabetes 10/03 Weekly blood pressure task 10/03/2025 Help patients manage their type 2 diabetes 10/03 Patient has chronic kidney disease 10/03/2025 Weekly blood pressure task 10/03/2025 Weekly blood pressure task 10/03/2025 Patient has chronic kidney disease 10/03/2025 Patient has chronic kidney disease 10/03/2025 Assessment Noted Time PHQ-9 Depression Total Score: 0 01/18/20 25 1:12 PM EDT documented as of this encounter Care Teams Central Scheduler Relationship Specialty Start Date End Date Maranda Serna MD [address] [place] [address] PCP - General Family Medicine 08/01/21 documented as of this encounter
--- OUTSIDE RECORDS SUMMARY | 2025-10-10 12:53 | XMS_ITS | Encounter Summary ---
Author Organization [employer] Address 75 [facility] 7t [place] [address] Care Team Providers Care Drug Abuse Resistance Education Officer Name Role Phone Maranda Serna MD Primary Care Provider [phone] Encounter Details Date Type Department Care Team ([facility] st Contact Info) Description 01/28/2025 Orders Only [facility] [address] [place], [place] [phone] Maranda Serna MD [address] [place] [address] Type 2 diabetes mellitus with hyperglycemia, with long-term current use of insulin ([facility]) Social History [...] Description 11/08/2025 3:15 PM EST Office Visit [facility] [address] [place] [address] Maranda Serna MD [address] [place] [address] documented as of this encounter Visit Diagnoses Diagnosis Type 2 diabetes mellitus with hyperglycemia, with long-term current use of insulin (HCC) documented in this encounter Additional Health Concerns Assessment Noted Time PHQ-9 Depression Total Score: 0 01/18/20 25 1:12 PM EDT documented as of this encounter Care Teams Drug Abuse Resistance Education Officer Relationship Specialty Start Date End Date Maranda Serna MD [address] [place] [address] PCP - General Family Medicine 08/01/21 documented as of this encounter
--- OUTSIDE RECORDS SUMMARY | 2025-10-10 12:53 | XMS_ITS | Clinical Summary ---
Author Organization [facility] Address [address] [place] [address] Care Team Providers Care Painting Technician Name Role Phone Viet Sánchez Unavailable [phone] Viet Sánchez Primary Care Provider [phone] Allergies Active Allergy Reactions Criticality Noted Date [...] Pap Smear (Ages 21-65) 1981 Mammogram 2000 RSV Vaccine 50 years and old er and Patients (1 - Risk 50-74 years 1-dose series) 2010 Creatinine with GFR 12/24/2019 12/24/2018 Microalbumin/Creatinine Rati o Urine 02/10/2020 02/09/2019 Influenza Vaccine 06/10/2025 Colonoscopy 05/19/2030 05/19/2020 HIV Screening Completed 10/06/2018 Hepatitis B Vaccines Aged Out No long er eligible based on patient's age to complete this topic Medical Devices Implanted Type Area Wildlife Manager Device Identifier Shelf Expiration Date Model / Serial / Lot [id number] Lens Iol 0 D +21.5 Brianda Mod L Bcnvx 13mm 6mm Posterior - [id number] Implanted:Qty: 1 on 01/27/2020 by Obinna Lorenzana MD at [facility] [place] [employer] [id number] / [id number] / Procedures Procedure Name Priority Date/Time Associated [...] 12:01 PM 01/27/2020 12:06 PM Care Teams Painting Technician Relationship Specialty Start Date End Date Viet Sánchez PA [address] [place] [address] PCP - General 06/18/18 Viet Sánchez PA [address] [place] [address] 06/18/18
--- OUTSIDE RECORDS SUMMARY | 2025-10-10 12:53 | XMS_ITS | Encounter Summary ---
Author Organization [facility] Address [address] [place] [address] Care Team Providers Care Gaming Host Name Role Phone Viet Sánchez Unavailable [phone] Viet Sánchez Primary Care Provider [phone] Encounter Details Date Type Department Care Team (Late st Contact Info) Description 07/07/2018 Scanned Document [facility] Urologic Surgery [place] [address] [facility] [address] [place] [address] Provider, Sheryl, [address] [place] [address] Social History Tobacco Use Types Packs/Day Years [...] on filedocumented in this encounter Care Teams Gaming Host Relationship Specialty Start Date End Date Viet Sánchez PA [address] [place] [address] PCP - General 06/18/18 Viet Sánchez PA [address] [place] [address] 06/18/18 documented as of this encounter
--- OUTSIDE RECORDS SUMMARY | 2025-10-10 12:53 | XMS_ITS | Encounter Summary ---
Author Organization [employer] Address [address] [facility] [address] 7t [place] [address] Care Team Providers Care Balance Engineer Name Role Phone Maranda Serna MD Primary Care Provider [phone] Encounter Details Date Type Department Care Team ([facility] st Contact Info) Description 01/13/2025 Orders Only [facility] [address] [place], [place] [phone] Maranda Serna MD [address] [place], [place] [phone] Pulmonary nodule (Primary Dx) Social History Tobacco [...] 11/08/2025 3:15 PM EST Office Visit [facility] [address] [place] [address] Maranda eSrna MD [address] [place] [address] documented as of this encounter Visit Diagnoses Diagnosis Pulmonary nodule- Primary Other diseases of lung, not elsewhere classified documented in this encounter Additional Health Concerns Assessment Noted Time PHQ-9 Depression Total Score: 6 10/23/20 22 10:04 AM EST documented as of this encounter Care Teams Balance Engineer Relationship Specialty Start Date End Date Maranda Serna MD [address] [place] [address] PCP - General Family Medicine 08/01/21 documented as of this encounter
--- OUTSIDE RECORDS SUMMARY | 2025-10-10 12:53 | XMS_ITS | Encounter Summary ---
Author Organization [facility] Address [address] [place] [address] Care Team Providers Care Geophysical Engineer Name Role Phone Viet Sánchez Unavailable [phone] Viet Sánchez Primary Care Provider [phone] Encounter Details Date Type Department Care Team (Late st Contact Info) Description 02/18/2020 Scanned Document [facility] [address] [place] [phone] Provider, Sheryl, [address] [place] [address] Social History Tobacco Use Types Packs/Day Years [...] on filedocumented in this encounter Care Teams Geophysical Engineer Relationship Specialty Start Date End Date Viet Sánchez PA [address] [place] [address] PCP - General 06/18/18 Viet Sánchez PA [address] [place] [address] 06/18/18 documented as of this encounter
== END ==
LOC: HO.SL 10:20
PROVIDERS: PCP Family Medicine; Visit Provider Nurse Practitioner Family
DX: G47.33 Obstructive sleep apnea (adult) (pediatric) (principal); R40.0 Somnolence; R06.83 Snoring
CPT/HCPCS: 95806

== ENCOUNTER → 2025-10-11 10:31 | Outpatient (BNV) | payer MEDICAID, SELFPAY | PROVIDERS: PCP Family Medicine; Visit Provider Internal Medicine | DX: G47.33 Obstructive sleep apnea (adult) (pediatric) (principal) | CPT/HCPCS: 95806 ==

== ENCOUNTER 2025-10-13 12:50 | Outpatient (AMB) | payer MEDICARE, MEDICAID, SELFPAY ==
--- NOTE | 2025-10-13 12:52 | A.OFFVIS_ITS ---
Vital Signs 10/13/25 12:54 Height 5 ft 2 in Weight 198 lb 6.656 oz BMI 36.3 BP 118/68 Blood Pressure Location Rt brachial Position Sitting Pulse 92 Pulse Source Pulse Oximeter Pulse Oximetry (%) 95 Oxygen Delivery Method Room Air Intake Visit Reasons: DM Intake Note: Patient presents today for a follow-up on Type 2 Diabetes Mellitus: Last Diabetic eye exam was on: 08/24/2025 Last Podiatry exam was on: Patient does not see a Archivist Political History Most recent HbA1c: 7.3%, 10/13/2025 Random Glucose: 198 mg/dL Substitute Teacher Required: No Accompanied by: Self / Same As Patient Allergies Pork/Porcine Containing Products (Pork/Porcine Product Derivatives) Allergy (Mild, Verified 10/13/25 12:59) SORES /ITCHING Seasonal Allergies Allergy (Mild, Verified 10/13/25 12:59) Itching nickel Adverse Reaction (Verified 10/13/25 12:59) Swelling and irritation HPI Comments Details: The patient is a 64 year old female presenting for diabetes follow up Medical history CAD, NSTEMI, chronic kidney disease, hypertension, hyperlipidemia PCP: Dr Sauer. [facility] Diagnosed: 1996 Mom, dad had diabetes Diabetes medications Farxiga 5mg daily Tresiba 40 units daily-continues to dose based on blood sugar at night and what she ate earlier in the day-will take anywhere from 20 to 60. Discussed not appropriate at last visit but did reinforce this today and she agreed to stay with 40 units Lispro 45 units with meals Previous Victoza-terrible diarrhea. PCP sent jayne but she was too afraid to start it given SE with victoza. Actos (since 08/17)-stopped due to gas A1C today 7.3% from from 07/12/2025 -7.9% from 8.2% in April She is using a traditional glucometer and did not bring this today. She is not interested in CGM Bigger breakfast and Lunch/dinner between 5 and 6pm. [place] milk, gluten free toast, does substitute sweeteners. Not eating a sugar. On statin therapy Has not tolerated LEIDY 2/2 cough Sees GI-chronic abdominal issues. Waiting for colonoscopy appt Upcoming eye appt Podiatry 08/2025 ROS CONSTITUTIONAL: Denies weight loss, fever and chills. HEENT: Denies changes in vision and hearing. RESPIRATORY: Denies SOB and cough. CV: Denies palpitations and CP GI: Denies new abdominal pain, nausea, vomiting and diarrhea. : Denies dysuria and urinary frequency. MSK: Denies new myalgia and joint pain. SKIN: Denies rash and pruritus. NEUROLOGICAL: Denies headache PSYCHIATRIC: Denies recent changes in mood. PHYSICAL EXAM: GENERAL: Alert and oriented x 3. NAD EYES: EOMI. Anicteric. HENT: Moist mucous membranes. No scleral icterus. No cervical lymphadenopathy. LUNGS: Clear to auscultation bilaterally. CARDIOVASCULAR: Regular rate and rhythm. No murmur. No JVD. ABDOMEN: Soft, non-tender +bs EXTREMITIES: No edema. Non-tender. SKIN: No rashes or lesions. Warm. NEUROLOGIC: No focal neurological deficits. CN II-XII grossly intact PSYCHIATRIC: Cooperative. Appropriate mood and affect [facility] Medical History Pancreatic insufficiency Pancreatic insufficiency Tubular adenoma CKD (chronic kidney disease) Anemia GERD (gastroesophageal reflux disease) Renal cyst Bladder prolapse, female, acquired Hx of gastric ulcer IBS (irritable bowel syndrome) Kidney stones High cholesterol Diabetes Surgical History H/O foot surgery H/O foot surgery History of tonsillectomy Hx of endoscopy Hx of colonoscopy History of partial hysterectomy Hx of breast reduction, elective Hx of cholecystectomy Family History Father Heart attack DM2 (diabetes mellitus, type 2) Mother DM2 (diabetes mellitus, type 2) COPD (chronic obstructive pulmonary disease) Other No pertinent family history Social History Household Members: Family Housing: House Do you presently have visiting nurse or other home services: No Alcohol intake: never Patient Tobacco Use Status: Never used Tobacco Second Hand Smoke Exposure: No service: No Physical Exam Vital Signs: Last Vital Signs Pulse 92 10/13/25 12:54 BP 118/68 10/13/25 12:54 Pulse Ox 95 10/13/25 12:54 Oxygen Delivery Method Room Air 10/13/25 12:54 BMI result Body Mass Index 36.3 Results AMB Hemoglobin A1c AMB Hemoglobin A1c 7.3 % Last Edit by ROBERT Chaney on 10/13/25 13:15 Results Reviewed Results Reviewed: Laboratory Last Values Glucose (Clinic) 198 mg/dL (60-115) H 10/13/25 13:03 Hgb A1c (Clinic) 7.3 % (4.0-6.0) H 10/13/25 13:14 Assessment & Plan Assessment & Plan (1) Diabetes: Code(s): E11.9 - Type 2 diabetes mellitus without complications Category: Medical Qualifiers: Diabetes mellitus complication status: with hyperglycemia Diabetes mellitus intermediate manager insulin use: with intermediate manager use Diabetes mellitus type: type 2 Qualified Code(s): E11.65 - Type 2 diabetes mellitus with hyperglycemia; Z79.4 - custodial (current) use of insulin Plan 64 year old female presenting for follow up A1C is close to goal -Discussed the difference between short and long acting insulin. Discussed inappropriate to base long acting on transient measures like diet or one time blood glucose. She will take 40 units. Discussed if at this dose she is having frequent hypoglycemia to call us immediately and we will decrease the dose -Discussed that short acting insulin is used to cover meals. Discussed that this could be used on a sliding scale or adjusted for food intake. She will discuss t his further duriing CDE visit -Recommend CGM. She is not interested -She has hypoglycemic awareness Follow up CDE. Orders: Orders AMB Hemoglobin A1c Today E11.65 - Type 2 diabetes mellitus with hyperglycemia, Z79.4 - custodial (current) use of insulin Referrals Diabetes Education Referral E11.65 - Type 2 diabetes mellitus with hyperglycemia, Z79.4 - custodial (current) use of insulin Medications: New insulin lispro (Humalog KwikPen U-200 Insulin) 45 units (0.225 mL) subcut TID 60.75 mL 0RF 90 days Discontinued pioglitazone Discontinued Reason: Doctor's Order 30 mg PO DAILY 90 tabs 3RF Coding Level of Care Code Est Pt Level 4 (43271) Diagnoses Type 2 diabetes mellitus with hyperglycemia, with long-term current use of insulin E11.65; Z79.4 Diabetes mellitus complication status: with hyperglycemia Diabetes mellitus chcf insulin use: with chcf use Diabetes mellitus type: type 2
[2025-10-13 12:54] VITALS: BP 118/68; PULSE 92; O2SAT 95; BMI 36.3
[2025-10-13 13:08] LABS: Glucose, Whole Blood 198 mg/dL (60-115)
== END 2025-10-13 13:33 | disposition home or self-care (01) ==
LOC: HO.ENCR 12:51
PROVIDERS: PCP Family Medicine; Visit Provider Internal Medicine
DX: E11.65 Type 2 diabetes mellitus with hyperglycemia (principal); Z79.4 Long term (current) use of insulin

== ENCOUNTER → 2025-10-13 12:50 | Outpatient (BNVA) | payer MEDICAID, SELFPAY | PROVIDERS: PCP Family Medicine; Visit Provider Internal Medicine | DX: E11.65 Type 2 diabetes mellitus with hyperglycemia (principal); Z79.4 Long term (current) use of insulin | CPT/HCPCS: 82947; 83036; 99212 ==

== ENCOUNTER 2025-10-14 13:31 | Outpatient (AMB) | payer MEDICAID, SELFPAY ==
--- NOTE | 2025-10-14 13:37 | A.OFFVIS_ITS ---
Vital Signs 10/14/25 13:51 Height 5 ft 2 in Weight 198 lb BMI 36.2 BP 136/60 Blood Pressure Location Rt brachial Position Sitting Pulse 98 Pulse Source Pulse Oximeter Pulse Oximetry (%) 100 Oxygen Delivery Method Room Air Intake Visit Reasons: s/P double; Dr. Adrian Intake Note: ESTABLISHED PATIENT for GERD, IBS mgmt. Pt has some outstanding liver labs. Chief Complaint; C/O chronic sx persistence despite recent interventions. Pt had to stop taking pantoprazole due to adverse reaction (abdominal cramping / pain). Corporate Travel Consultant Required: No Accompanied by: Self / Same As Patient Allergies Pork/Porcine Containing Products (Pork/Porcine Product Derivatives) Allergy (Mild, Verified 10/14/25 13:37) SORES /ITCHING Seasonal Allergies Allergy (Mild, Verified 10/14/25 13:37) Itching nickel Adverse Reaction (Verified 10/14/25 13:37) Swelling and irritation HPI HPI s/P double; Dr. Adrian: Details: LAST VISIT: GERD (gastroesophageal reflux disease) Pancreatic insufficiency IBS (irritable bowel syndrome) Postprandial abdominal bloating Screen for colon cancer Plan History of gastric ulcer back in 2014. Patient will be sent for upper endoscopy. She is currently taking pantoprazole and reports that it working for the most part. Patient denies any dyspepsia, dysphagia or odynophagia. Will check lipase, liver panel and pancreatic elastase. History of pancreatic insufficiency. PCP send patient script for Yasmine. Patient will have to be monitor closely. Patient is also due to go for colonoscopy. What to expect before during and after procedure discussed with patient. Stressed the importance of good bowel prep and clear liquid diet day before procedure. I will see patient after the procedure, sooner on as needed basis. Patient is agreeable to this plan and wallace balizes understanding of instructions. She was given the opportunity to ask questions and all questions answered. ? Thank you for allowing me to participate in her care Orders Lipase Today R10.9 Liver Panel Today R74.01 Pancreatic Elastase-1 Today R10.9 New bisacodyl (Dulcolax (bisacodyl)) Start taking 2 tablet every night 7 days before the procedure and 1 day before procedure take 2 tablets at noon time followed by MiraLax prep 10 mg (2 x 5 mg) PO BEDTIME 14 tabs 0RF Z12.11 polyethylene glycol 3350 (Miralax) As directed by gastroenterology department at [facility] 238 grams PO ONCE 238 grams 0RF Z12.11 UPPER ENDOSCOPY AND COLONOSCOPY EGD Findings:? * Esophagus:? Normal esophageal mucosa was noted. The Z-line was at 35 cm and irregular to 34 cm. Jumbo cold forceps biopsies were taken from GE junction to rule out Dumont's esophagus. * Stomach:? Normal gastric mucosa. Retroflexion was performed in the cardia. * Duodenum:? Normal duodenal mucosa. Colonoscopy Procedure:? The patient was then turned for the colonoscopy. A digital rectal exam was performed which was abnormal for hemorrhoids.? A distal attachment cap was affixed to the tip of the scope and the colonoscope was then inserted through the anus and advanced through the colon and advanced to the cecum at 75 cm and terminal ileum.? Appendiceal orifice and ileocecal valve were identified. Mucosa was carefully examined under high definition white light as the instrument was slowly withdrawn in a retrograde panoramic fashion. Retroflexion was performed in rectum. The procedure was not difficult. 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 Otherwise normal colon and terminal ileum mucosa. Protruding lesions: * 1 sessile polyp of size 2 mm noted in ascending colon. Jumbo forceps polypectomy was performed. The polyp was completely removed and retrieved. * 1 sessile polyp of size 6 mm noted in descending colon. Jumbo forceps polypectomy was performed. The polyp was completely removed and retrieved. * 1 sessile polyp of size 5 mm noted in sigmoid colon. Jumbo forceps polypectomy was performed. The polyp was completely removed and retrieved. * Medium internal hemorrhoids without stigmata of recent bleeding.Excavated lesions: * Rare diverticuli in sigmoid colon. Impression: 1. Irregular Z line (biopsy) 2. Normal stomach 3. Normal duodenum 4. Melanosis coli 5. Total 3 polyps removed 6. Diverticulosis 7. Internal and external hemorrhoids Recommendations:?? * Follow-up path results * Avoid NSAIDs * Cont pantoprazole daily. * Repeat colonoscopy in 3-5 years depending on results. * HOLD plavix today. OK to resume tomorrow. PATHOLOGY RESULTS Diagnosis A. EG junction, biopsy: - Cardiac-type mucosa with moderate chronic inactive inflammation; no intestinal metaplasia seen. - Squamous epithelium within normal limits. B. Colon, ascending, polypectomy: Tubular adenoma; negative for high-grade d ysplasia or carcinoma. C. Colon, descending, polypectomy: Fragments of tubular adenoma; negative for high-grade dysplasia or carcinoma. D. Colon, sigmoid, polypectomy: Fragments of tubular adenoma; negative for high- grade dysplasia or carcinoma. TODAY'S VISIT Patient is here today for follow-up and to discuss upper endoscopy and colonoscopy results. Patient had 3 tubular adenomas and will need to repeat colonoscopy in 3 years. Patient had normal esophagus, GE junction mild chronic inflammation. Patient states that she had to stop taking pantoprazole as it was causing her epigastric pain. Patient reports feeling very bloated, however reports the simethicone helps. Patient tries to take it before she has a meal to avoid bloating. Patient was taking digestive enzymes, however she had to stop unsure why. Patient reports that her is good in looking in to what ingredients medications are made of. Patient denies any nausea or vomiting. Reports that she is moving her bowels better now. She is currently taking Dulcolax and reports that her bowels are moving better. Patient is requesting prescription for Pepcid instead of pantoprazole. Patient otherwise is feeling well. Denies any ill effects from the prep, anesthesia or procedure itself. [facility] Medical History (Updated 10/14/25 @ 19:53 by Zoe Montalvo FINANCIAL COMPLIANCE OFFICER-) Tubular adenoma of colon Pancreatic insufficiency Pancreatic insufficiency Tubular adenoma CKD (chronic kidney disease) Anemia GERD (gastroesophageal reflux disease) Renal cyst Bladder prolapse, female, acquired Hx of gastric ulcer IBS (irritable bowel syndrome) Kidney stones High cholesterol Diabetes Surgical History H/O foot surgery H/O foot surgery History of tonsillectomy Hx of endoscopy Hx of colonoscopy History of partial hysterectomy Hx of breast reduction, elective Hx of cholecystectomy Family History Father Heart attack DM2 (diabetes mellitus, type 2) Mother DM2 (diabetes mellitus, type 2) COPD (chronic obstructive pulmonary disease) Other No pertinent family history Social History Household Members: Family Housing: House Do you presently have visiting nurse or other home services: No Alcohol intake: never Patient Tobacco Use Status: Never used Tobacco Second Hand Smoke Exposure: No service: No Review of Systems Const Denies weight gain and Denies weight loss ENT Reports no additional complaints, Denies dysphagia and Denies odynophagia Card Reports no additional complaints Resp Reports no additional complaints GI Reports abdominal pain, Denies belching, Denies melena, Reports bloating, Denies change in bowel habits, Reports constipation, Denies dysphagia, Denies excessive flatus, Denies dyspepsia, Reports heartburn, Denies diarrhea, Reports loose stools, Denies nausea, Denies odynophagia and Denies vomiting Reports no additional complaints Musc Reports no additional complaints Neuro Reports no additional complaints Psych Reports no additional complaints Endo Reports no additional complaints Physical Exam Vital Signs: Last Vital Signs Pulse 98 10/14/25 13:51 BP 136/60 10/14/25 13:51 Pulse Ox 100 10/14/25 13:51 Oxygen Delivery Method Room Air 10/14/25 13:51 BMI result Body Mass Index 36.2 Const General: healthy appearing and no acute distress Nutritional Appearance: obese Orientation/consciousness: patient oriented x3 Resp Effort & Inspection: normal respiratory effort, able to speak in complete sentences, no tracheal deviation and symmetric chest movement Auscultation: clear to auscultation bilaterally Cardio Rate: regular rate Heart sounds: S1 normal heart sound present and S2 normal heart sound present GI Inspection: No distended, Yes incision (Old surgical scar to right upper quadrant), Yes obesity and Yes other (Tenderness around surgical scar concern for adhesions versus hernia) Palpation (GI): Soft to palpation, not firm, nontender and No hepatosplenomegaly present Auscultation: normal bowel sounds General: Yes no CVA tenderness Back/Spine/Pelvis Back: no CVA tenderness Skin General skin exam: elasticity normal, turgor normal and dry skin Neuro General: patient oriented x3 Psych Appearance: grossly normal Mental Status: mental status grossly normal Assessment & Plan Assessment & Plan (1) GERD (gastroesophageal reflux disease): Code(s): K21.9 - Gastro-esophageal reflux disease without esophagitis Category: Medical Qualifiers: Esophagitis presence: esophagitis presence not specified Qualified Code(s): K21.9 - Gastro-esophageal reflux disease without esophagitis (2) Pancreatic insufficiency: Code(s): K86.89 - Other specified diseases of pancreas Category: Medical (3) IBS (irritable bowel syndrome): Code(s): K58.9 - Irritable bowel syndrome, unspecified Category: Medical Qualifiers: Irritable bowel syndrome type: with constipation Qualified Code(s): K58.1 - Irritable bowel syndrome with constipation (4) Tubular adenoma of colon: Code(s): D12.6 - Benign neoplasm of colon, unspecified Category: Medical (5) Postprandial abdominal bloating: Code(s): R14.0 - Abdominal distension (gaseous) (6) Status post colonoscopy: Code(s): Z98.890 - Other specified postprocedural states Plan Patient will start taking famotidine twice a day. Continue current therapy with Dulcolax. Increase fluid intake and activity to promote bowel motility. May takes simethicone as needed. Avoid dietary triggers in late night snacking. Staying upright for minimal 3 hours after meals discussed with patient. Discussed with patient also low FODMAP diet. Patient is trying to avoid certain food that make her here in bloated. Patient was encouraged to try different digestive enzymes. Possible chewable enzymes that are [id number]. Patient will follow-up in our office in 3 months. She will call us if she will have any GI concerning symptoms. She is agreeable to this plan and verbalizes understanding of instructions. She was given the opportunity to ask questions and all questions answered. Thank you for allowing me to participate in her care Medications: New famotidine (Pepcid) 20 mg PO BID 60 tabs 3RF K29.70 - Gastritis, unspecified, without bleeding Coding Level of Care Code Est Pt Level 4 (25383) Complex visit Add On G2211 Diagnoses Gastroesophageal reflux disease, unspecified whether esophagitis present K21.9 Esophagitis presence: esophagitis presence not specified Pancreatic insufficiency K86.89 Irritable bowel syndrome with constipation K58.1 Irritable bowel syndrome type: with constipation Tubular adenoma of colon D12.6 Postprandial abdominal bloating R14.0 Status post colonoscopy Z98.890 Time Spent (min) 35 Comment 25 minutes spent with patient and additional 10 minutes spent reviewing her records
[2025-10-14 13:51] VITALS: BP 136/60; PULSE 98; O2SAT 100; BMI 36.2
--- OUTSIDE RECORDS SUMMARY | 2025-10-14 17:37 | XMS_ITS | Encounter Summary ---
Author Organization [employer] Address [address] [facility] [address] [place] [address] Care Team Providers Care Video Arcade Manager Name Role Phone Maranda Serna MD Primary Care Provider [phone] Reason for Referral * Imaging (Routine) - Closed Specialty Diagnoses / Procedures Referred By Rodney hussein Referred To Contact Radiology Diagnoses Pulmonary nodule Procedures CT Chest w/o Contrast Maranda Serna MD [address] [place] [address] Phone: tel: fax: [facility] [address] [place] [id number] Phone: tel: fax: Referral ID Status Reason Start Date Expiration Date Visits Re quested Visits Authorized [id number] Closed 02/07/2025 02/07/2026 1 1 Encounter Details Date Type Department Care Team (Late st Contact Info) Description 02/07/2025 Orders Only [facility] [address] [place], [place] [phone] Maranda Serna MD [address] [place], [place] [phone] Pulmonary nodule (Primary Dx) Social History Tobacco [...] Description 11/08/2025 3:15 PM EST Office Visit [facility] [address] [place] [address] Maranda Serna MD [address] [place] [address] documented as of this encounter Procedures Procedure Name Priority Date/Time Associated Diagnosis Comments CT CHEST WO CONTRAST Routine 02/25/2025 11:15 AM EDT Pulmonary nodule documented in this encounter Results * CT Chest w/o Contrast (02/25/2025 11:15 AM EDT) Anatomical Region Laterality Modality Body, Chest Computed Tomogra phy 02/25/2025 11:1 5 AM EDT Narrative 02/25/2025 11:59 AM EDT [place] [address] [address] Scan Report Signed Patient: Ese Mendoza MR#: [id number] 8 : 1960 Acct:[id number] Age/Sex: 64 / F ADM Date: 02/25/25 Loc: HO.CT Attending Dr: Maranda Serna MD Ordering Physician: Maranda Serna MD Date of Service: 02/25/25 Procedure(s): CT chest wo IV con Accession Number(s): [id number] cc: Maranda Serna MD Report Number: [id number]: Total DLP = 183.00 mGy-cm EXAMINATION: CT [...] reconstruction technique DLP: 183 mGy centimeter. FINDINGS: FAMILY RESOURCE MANAGEMENT SPECIALIST: Large body habitus. Vascular clips right upper [...] 02/25/25 1155 DD/ 1115 TD/TT: 02/25/25 1124 Cheese Maker: Procedure Note Donotuseinterpreter, Image - 02/25/[address] [place] [address] [address] Scan Report Signed Patient: Ese MendozaMR#: [id number] 8 : 1960Acct:[id number] Age/Sex: 64 / FADM Date: 02/25/25 Loc: HO.CT Attending Dr: Maranda Serna MD Ordering Physician: Maranda Serna MD Date of Service: 02/25/25 Procedure(s): CT chest wo IV con Accession Number(s): [id number] cc: Maranda Serna MD Report Number: [id number]: Total DLP = 183.00 mGy-cm EXAMINATION: CT [...] reconstruction technique DLP: 183 mGy centimeter. FINDINGS: FAMILY RESOURCE MANAGEMENT SPECIALIST: Large body habitus. Vascular clips right upper [...] 02/25/25 1155 DD/ 1115 TD/TT: 02/25/25 1124 Cheese Maker: Maranda Serna MD [facility] [place]ED[place] Edited Result - Final documented in this encounter Visit Diagnoses Diagnosis Pulmonary nodule- Primary Other diseases of lung, not elsewhere classified documented in this encounter Additional Health Concerns Assessment Noted Time PHQ-9 Depression Total Score: 0 01/18/20 25 1:12 PM EDT documented as of this encounter Care Teams Video Arcade Manager Relationship Specialty Start Date End Date Maranda Serna MD [address] [place] [address] PCP - General Family Medicine 08/01/21 documented as of this encounter
--- OUTSIDE RECORDS SUMMARY | 2025-10-14 17:37 | XMS_ITS | Encounter Summary ---
Author Organization [employer] Address [address] [facility] [address] [place] [address] Care Team Providers Care Ordering Box Operator Name Role Phone Maranda Serna MD Primary Care Provider [phone] Reason for Visit * Reason Comments Med Refill Encounter Details Date Type Department Care Team ([facility] st Contact Info) Description 11/19/2023 Refill [facility] [address] [place], [place] [phone] Yesica Naylor MD [address] [place] [address] Social History Tobacco Use Types Packs/Day Years [...] Description 11/08/2025 3:15 PM EST Office Visit [facility] [address] [place] [phone] Maranda Serna MD [address] [place] [address] documented as of this encounter Visit Diagnoses Not on filedocumented in this encounter Additional Health Concerns Assessment Noted Time PHQ-9 Depression Total Score: 6 10/23/20 22 10:04 AM EST documented as of this encounter Care Teams Ordering Box Operator Relationship Specialty Start Date End Date Maranda Serna MD [address] [place] [id number] PCP - General Family Medicine 08/01/21 documented as of this encounter
--- OUTSIDE RECORDS SUMMARY | 2025-10-14 17:37 | XMS_ITS | Clinical Summary ---
Author Organization [facility] Address [address] [place] [address] Care Team Providers Care Electrical Automation Engineer Name Role Phone Viet Sánchez Primary Care Provider [phone] Allergies Active Allergy Reactions Criticality Noted Date [...] lumbar spine. Will obtain interval history from minister assistant Karlee Le. - RTC in 4 months [...] long-term current use of insulin ([facility]) POCT HEMOGLOBIN, A1C Routine 02/09/2019 8:10 AM EDT Type 2 diabetes mellitus with diabetic polyneuropathy, with long-term current use of insulin ([facility]) HIV COMBO ANTIGEN/ANTIBODY Routine 10/06/2018 3:59 PM EST Polyarthralgia from Last 3 Months or Most Recently Relevant to Health Maintenance Results * Microalbumin/creatinine ratio (02/09/2019 10:15 AM EDT) Microalbumin/Creat Ratio 20 2 - 20 mg/g Creat 02/09/2019 11:55 AM EDT [facility] Creatinine, Urine, Random 101 mg/dL 02/09/2019 11:55 AM EDT [facility] Comment: The laboratory does not have established reference ranges for this test. Interpretation of results is at the discretion of the ordering physician. Urine specimen (specimen) Urine specimen obtained by clean catch procedure / Unknown Non-blood Collection / Unknown 02/09/2019 10:15 AM EDT 02/09/2019 10:15 AM EDT us Keke Katz APRN LAB URINE ORDERABLES Final Res ult [facility] [address] [place] [address], [place] [phone] * POCT hemoglobin, A1c (02/09/2019 8:10 AM EDT) POCT Hemoglobin A1C 9.2 4.4 - 6.4 % Blood specimen (specimen) 02/09/2019 8:10 AM EDT us Keke Katz IN[employer] M[employer]ER POCT ORDERABLES NO CHARGE Machelle l Result * HIV combo antigen/antibody (10/06/2018 3:59 PM EST) HIV Combo AB/AG Negative Negative 10/06/2018 6:02 PM EST [facility] Blood specimen (specimen) Venous blood specimen / Unknown Venipuncture / Unknown 10/06/2018 3:59 PM EST 10/06/2018 3:59 PM EST Narrative [facility] - 10/06/2018 6:02 PM EST This test is a 4th generation HIV Antigen-Antibody Combination assay, using a chemiluminescent microparticle immunoassay, for the simultaneous qualitative detection of human immuno- deficiency virus (HIV) p24 antigen and antibodies to HIV type 1 (HIV-1) and/or HIV type 2 (HIV-2) in human serum or plasma. The [employer] HIV Ag/Ab Combo assay is intended to [...] NO ST AT Final Result [facility] [address] [place] [address], [place] [phone] from Last 3 Months or Most Recently Relevant to Health Maintenance Insurance MEDICAID [place] D Care Teams Electrical Automation Engineer Relationship Specialty Start Date End Date Viet Sánchez PA [address] [place] [address] PCP - General Family Medicine 07/22/18
--- OUTSIDE RECORDS SUMMARY | 2025-10-14 17:37 | XMS_ITS | Encounter Summary ---
Author Organization [employer] Address [address] [facility] [address] [place] [address] Care Team Providers Care Reexaminer Name Role Phone Maranda Serna MD Primary Care Provider [phone] Encounter Details Date Type Department Care Team ([facility] st Contact Info) Description 10/03/2025 Results Follow-Up [facility] [address] [place] [address] Maranda Serna MD [address] [place] [address] Glucose, Whole Blood, Hematoxylin and Eosin Stain [...] 3:15 PM EST Office Visit [facility] [address] [place] [address] Maranda Serna MD [address] [place] [address] documented as of this encounter Goals Goal [...] documented as of this encounter Care Teams Reexaminer Relationship Specialty Start Date End Date Maranda Serna MD [address] [place] [address] PCP - General Family Medicine 08/01/21 documented as of this encounter
--- OUTSIDE RECORDS SUMMARY | 2025-10-14 17:37 | XMS_ITS | Encounter Summary ---
Author Organization [employer] Address [address] [place] [address] Care Team Providers Care Car Porter Name Role Phone Maranda Serna MD Primary Care Provider [phone] Encounter Details Date Type Department Care Team ([facility] st Contact Info) Description 01/13/2025 Orders Only [facility] [address] [place], [place] [phone] Maranda Serna MD [address] [place], [place] [phone] Pulmonary nodule (Primary Dx) Social History Tobacco [...] 3:15 PM EST Office Visit [facility] [address] [place] [phone] Maranda Serna MD [address] [place] [phone] documented as of this encounter Visit Diagnoses Diagnosis Pulmonary nodule- Primary Other diseases of lung, not elsewhere classified documented in this encounter Additional Health Concerns Assessment Noted Time PHQ-9 Depression Total Score: 6 10/23/20 22 10:04 AM EST documented as of this encounter Care Teams Car Porter Relationship Specialty Start Date End Date Maranda Serna MD [address] [place] [phone] PCP - General Family Medicine 08/01/21 documented as of this encounter
--- OUTSIDE RECORDS SUMMARY | 2025-10-14 17:37 | XMS_ITS | Clinical Summary ---
Author Organization [employer] Address [address] [facility] [address] [place] [address] Care Team Providers Care Helpdesk Specialist Name Role Phone Maranda Serna MD Primary Care Provider [phone] Allergies Active Allergy Reactions Criticality Noted Date [...] 30 mL 2 Active Easy Touch Pen [place] 31G X 8 MM miscIndication s:Type 2 [...] hyperglycemia, with long-term current use of insulin ([facility]) TEST BLOOD SUGAR THREE TIMES [...] hyperglycemia, with long-term current use of insulin ([facility]) OneTouch brand. TEST BLOOD SUGAR THREE TIMES DAILY 100 each 025 2025 Active glucose blood (FREESTYLE LITE) test stripIndicatio ns:Type 2 diabetes mellitus with stage 3b chronic kidney disease, with long-term current use of insulin ([facility]) USE TO TEST BLOOD SUGAR THREE TIMES A DAY 100 each Active Blood Glucose Monitoring Suppl (FreeStyle Lite) w/Device kitIndications :Type 2 diabetes mellitus with stage 3b chronic kidney disease, with long-term current use of insulin ([facility]) 1 Dose by Other route 3 times daily. USE TO TEST BLOOD SUGAR THREE TIMES A DAY 1 kit Active TRUEplus Lancets 33G miscIndication s:Type 2 diabetes mellitus with stage 3b chronic kidney disease, with long-term current use of insulin ([facility]) USE TO TEST BLOOD SUGAR THREE TIMES [...] 025 Active Blood Glucose Monitoring Suppl (FreeStyle Doniphan) kit Check blood glucose 3 times daily [...] Assessment & Plan (07/20/2025 2:46 PM EDT): -Car Stereo Installer: [facility], last seen in May 2025 -11/30/2024- Cardiac catheterization showed abah-ej-vaunhhoy distal LAD disease with severe distal stenosis [...] Assessment & Plan (04/12/2025 1:39 PM EDT): -Car Stereo Installer: [facility], last seen in Dec 2024 -11/30/2024- Cardiac catheterization showed yttq-[id number]-zsoedhma distal LAD disease with severe distal stenosis [...] Assessment & Plan (01/21/2025 12:33 PM EDT): -Car Stereo Installer: [facility], last seen in Dec 2024 -11/30/2024- Cardiac catheterization showed htqs-qg-qvposofn distal LAD disease with severe distal stenosis [...] and supportive care - follow up with motion picture equipment supervisor as scheduled Assessment & Plan (07/23/2024 [...] Plan (01/17/2025 11:35 AM EDT): - seeing motion picture equipment supervisor - continue judicious use of gabapentin 100 mg tid - she wants to switch to tablet. Only tablets available are 600 and 800 mg tablet - will have her take 1/4 of 600 mg tablet and take bid; or will check with pharmacist if she can open the capsule and take inside content Assessment & Plan (07/23/2024 5:36 AM EDT): - seeing motion picture equipment supervisor - continue judicious use of gabapentin 100 mg tid - she wants to switch to tablet. Only tablets available are 600 and 800 mg tablet - will have her take 1/4 of 600 mg tablet and take bid; or will check with pharmacist if she can open the capsule and take inside content Assessment & Plan (01/04/2024 3:36 PM EST): - seeing motion picture equipment supervisor - continue judicious use of gabapentin Assessment & Plan (10/03/2023 9:48 AM EST): - seeing motion picture equipment supervisor - waiting for diabetic orthotics Adjustment [...] hyperkalemia and cough -Currently prescribed Dapagliflozin from radiation officer Assessment & Plan (04/22/2025 3:19 PM EDT): -Goal BP < 130/80 per ACC/AHA guideline -BP at goal today -Continue working on lifestyle modifications -Recommended self-monitoring BP. -Pt has tried lisinopril for renal protection, not for HTN, in the past, but it was discontinued due to hyperkalemia and cough -Currently prescribed Dapagliflozin from radiation officer Assessment & Plan (07/20/2024 1:50 PM EDT): -Goal BP < 140/90 per JNC-8 and < 130/80 per ACC/AHA guideline (Treatment threshold >= 140/90 ) -BP at goal today -Continue working on lifestyle modifications -Recommended self-monitoring BP. -Pt has tried lisinopril for renal protection, not for HTN, in the past, but it was discontinued due to hyperkalemia and cough -Currently prescribed Dapagliflozin from radiation officer -Follow up in 3-6 mo, sooner if [...] hyperkalemia and cough -Currently prescribed Dapagliflozin from radiation officer -Follow up in 3-6 mo, sooner if [...] neuropathy; osteoarthritis; plantar fasciitis - Following with motion picture equipment supervisor Assessment & Plan (06/07/2023 3:44 PM EDT): - left foot worse than right - multifactorial: Diabetic peripheral neuropathy; osteoarthritis; plantar fasciitis - referred to a motion picture equipment supervisor; waiting for an appt - check [...] want to try any GLP-1 agonist. -Patient Hearing Examiner prescribed Farxiga. Patient is taking this medication [...] want to try any GLP-1 agonist. -Patient Hearing Examiner prescribed Farxiga. Patient is no longer taking [...] (01/04/2024 3:42 PM EST): - followed by [facility] - no anatomical pancreatic abnormality on MRI in Dec 2022 - continue vegan / plant-based pancreatic enzyme Assessment & Plan (10/03/2023 9:49 AM EST): - followed by [facility] - no anatomical pancreatic abnormality on MRI in Dec 2022 - continue vegan / plant-based pancreatic enzyme Assessment & Plan (06/07/2023 3:30 PM EDT): - followed by [facility] - no anatomical pancreatic abnormality on MRI in Dec 2022 - continue vegan / plant-based pancreatic enzyme Assessment & Plan (02/24/2023 5:30 AM EDT): - followed by [facility] - no anatomical pancreatic abnormality on MRI in Dec 2022 - continue vegan / plant-based pancreatic enzyme Assessment & Plan (12/18/2022 6:12 PM EST): - followed by [facility] - continue vegan pancreatic enzyme Allergic [...] Plan (07/20/2025 2:53 PM EDT): -Followed by [facility], last seen 01/03/25 -EGD and Colonoscopy on 12/24/21; showed Tubular Adenoma, she was recommended to repeat in 3 years. - pt has been using castor oil - continue trying fiber-rich diet and increasing physical activity as tolerated. - continue Senakot as prescribed - Being scheduled for EGD and colonoscopy in near future. Preop is already done by flange machine operator. Patient was advised to return to hold the clopidogrel 5 days prior to procedure Assessment & Plan (01/21/2025 12:33 PM EDT): -Followed by [facility], last seen 01/03/25 -EGD and Colonoscopy on 12/24/21; showed Tubular Adenoma, she was recommended to repeat in 3 years. - pt has been using castor oil - continue trying fiber-rich diet and increasing physical activity as tolerated. - continue Senakot as prescribed Assessment & Plan (07/20/2024 1:50 PM EDT): -Followed by [facility], last seen 08/06/22 -EGD and Colonoscopy on 12/24/21; showed Tubular Adenoma, she was recommended to repeat in 3 years. - pt has been using castor oil - continue trying fiber-rich diet and increasing physical activity as tolerated. - continue Senakot as prescribed Assessment & Plan (01/04/2024 3:38 PM EST): -Followed by [facility], last seen 08/06/22 -EGD and Colonoscopy on 12/24/21; showed Tubular Adenoma, she was recommended to repeat in 3 years. - pt has been using castor oil - continue trying fiber-rich diet and increasing physical activity as tolerated. - continue Senakot as prescribed Assessment & Plan (06/07/2023 3:33 PM EDT): -Followed by [facility], last seen 08/06/22 -EGD and Colonoscopy on 12/24/21; showed Tubular Adenoma, she was recommended to repeat in 3 years. - pt has been using castor oil - continue trying fiber-rich diet and increasing physical activity as tolerated. - continue Senakot as prescribed Assessment & Plan (12/18/2022 6:26 PM EST): -Followed by [facility], last seen 08/06/22 -EGD and Colonoscopy on 12/24/21; showed Tubular Adenoma, she was recommended to repeat in 3 years. - pt has been using castor oil - continue trying fiber-rich diet and increasing physical activity as tolerated. - continue Senakot as prescribed Chronic kidney disease, stage III (moderate) (CM S/HCC) 10/12/2022 Assessment & Plan (07/11/2025 11:30 AM EDT): - Hearing Examiner, Dr. Marci Hylton. Last seen on 01/25/25 - Metformin is discontinued, Dr. Tsai started her on Dapagliflozin (Farxiga) - Previously on Lisinopril, but was disccontinued due to cough / K - Avoid nephrotoxic drugs, including NSAID (no more Aleve) - Renal dose meds Assessment & Plan (04/12/2025 1:40 PM EDT): - Hearing Examiner, Dr. Marci Hylton. Last seen on 01/25/25 - Metformin is discontinued, Dr. Tsai started her on Dapagliflozin (Farxiga) - Previously on Lisinopril, but was disccontinued due to cough / K - Avoid nephrotoxic drugs, including NSAID (no more Aleve) - Renal dose meds Assessment & Plan (01/21/2025 12:32 PM EDT): - Hearing Examiner, Dr. Marci Hylton. Last seen on 01/25/25 - Metformin is discontinued, Dr. Tsai started her on Dapagliflozin (Farxiga) - Previously on Lisinopril, but was disccontinued due to cough / K - Avoid nephrotoxic drugs, including NSAID (no more Aleve) - Renal dose meds Assessment & Plan (07/23/2024 5:41 AM EDT): - Hearing Examiner, Dr. Marci Hylton. - Metformin is discontinued, Dr. Tsai started bryn ib Dapagliflozin (Farxiga) - Previously on Lisinopril, but was disccontinued due to cough / K - Avoid nephrotoxic drugs, including NSAID (no more Aleve) - Renal dose meds Assessment & Plan (01/04/2024 3:45 PM EST): - Hearing Examiner, Dr. 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 Tsai is prescribing Dapagliflozin (Farxiga) - Previously on Lisinopril, but was disccontinued due to cough / K - Avoid nephrotoxic drugs - Renal dose meds Assessment & Plan (10/03/2023 9:41 AM EST): - Hearing Examiner, Dr. 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 Tsai rx Farxiga for DM management - Previously on Lisinopril, but was disccontinued due to cough / K - Avoid nephrotoxic drugs - Renal dose meds - Pt was advised that atorvastatin is not nephrotoxic and it will lower her ASCVD risk. Pt continues to decline statin therapy. Assessment & Plan (06/07/2023 3:34 PM EDT): - Hearing Examiner, Dr. 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 [...] & Plan (02/24/2023 5:37 AM EDT): - Hearing Examiner, Dr. Tsai - Lab: 12/24/22 BUN 28, [...] & Plan (12/18/2022 6:31 PM EST): - Hearing Examiner, Dr. 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 [...] PM EDT): -s/p EGD 12/24/21 -followed by [facility] - Patient has been taking omeprazole tablets, but recently it was switched to capsule. Patient is unable to take capsule because it contains porcine product. -since patient is on clopidogrel, changed to pantoprazole tablet. - Being scheduled for EGD Assessment & Plan (04/22/2025 3:36 PM EDT): -s/p EGD 12/24/21 -followed by [facility] -refill famotidine as requested. Patient takes prn. -since patient is on clopidogrel, will check whether patient is taking omeprazole or pantoprazole. Assessment & Plan (01/04/2024 3:42 PM EST): -s/p EGD 12/24/21 -followed by [facility] -continue omeprazole 40mg daily -previously tried pantoprazole and lansoprazole; pt prefers omeprazole. -previously prescribed famotidine. Max dose for her renal function is 20 mg daily. Pt does not take it regularly. Assessment & Plan (10/03/2023 9:50 AM EST): -s/p EGD 12/24/21 -followed by [facility] -continue omeprazole 40mg daily -previously tried pantoprazole and lansoprazole; pt prefers omeprazole. -previously prescribed famotidine. Max dose for her renal function is 20 mg daily. Pt does not take it regularly. Assessment & Plan (06/07/2023 3:33 PM EDT): -s/p EGD 12/24/21 -followed by [facility] -continue omeprazole 40mg daily -previously tried pantoprazole and lansoprazole; pt prefers omeprazole. -previously prescribed famotidine. Max dose for her renal function is 20 mg daily. Pt does not take it regularly. Assessment & Plan (12/18/2022 6:28 PM EST): -s/p EGD 12/24/21 -followed by [facility] -continue prantoprazol 40mg daily -previously prescribed famotidine. Max dose for her renal function is 20 mg daily. Irritable bowel syndrome 10/12/2022 Assessment & Plan (07/20/2025 2:50 PM EDT): - followed by [facility] - continue current treatment plan per GI - low FODMAP diet - pt is prescribed simethicone, Sennakot, citrucel, but does not like taking it regularly Assessment & Plan (07/20/2024 1:50 PM EDT): - followed by [facility] - continue current treatment plan per GI - low FODMAP diet - pt is prescribed simethicone, Sennakot, citrucel, but does not like taking it regularly Assessment & Plan (01/04/2024 3:42 PM EST): - followed by [facility] - continue current treatment plan per GI - low FODMAP diet - pt is prescribed simethicone, Sennakot, citrucel, but does not like taking it regularly Assessment & Plan (10/03/2023 9:49 AM EST): - followed by [facility] - continue current treatment plan per GI - low FODMAP diet - pt is prescribed simethicone, Sennakot, citrucel, but does not like taking it regularly Assessment & Plan (06/07/2023 3:32 PM EDT): - followed by [facility] - continue current treatment plan per GI - low FODMAP diet - pt is prescribed simethicone, Sennakot, citrucel, but does not like taking it regularly Assessment & Plan (12/18/2022 6:27 PM EST): - followed by [facility] - continue current treatment plan per [...] Disliked Freestyle lite. Will switch to Freestyle [place]han Treatment Hx -Pt has taken dulaglutide and [...] - Prescribed dapagliflozin (Farxiga) from PCP and radiation officer, questionable adherence - Discussed about CGM, which she does not want to use it at this time Treatment Hx -Pt has taken GLP-1 agonists and had significant side effects, mainly GI. Pt states she does not want to try any GLP-1 agonist. -Patient Hearing Examiner prescribed Farxiga. Patient is taking this medication [...] - Prescribed dapagliflozin (Farxiga) from PCP and radiation officer, questionable adherence - Discussed about CGM, which she does not want to use it at this time Treatment Hx -Pt has taken GLP-1 agonists and had significant side effects, mainly GI. Pt states she does not want to try any GLP-1 agonist. -Patient Hearing Examiner prescribed Farxiga. Patient is taking this medication [...] want to try any GLP-1 agonist. -Patient Hearing Examiner prescribed Farxiga. Patient is taking this medication [...] want to try any GLP-1 agonist. -Patient Hearing Examiner prescribed Farxiga. Patient is no longer taking [...] want to try any GLP-1 agonist. -Patient Hearing Examiner prescribed Farxiga. Patient is no longer taking [...] want to try any GLP-1 agonist. -Patient Hearing Examiner prescribed Farxiga. Patient is no longer taking [...] want to try any GLP-1 agonist. -Patient Hearing Examiner prescribed Farxiga. Patient is no longer taking [...] Encounters Date Type Department Care Team Description 10/13/2025 Orders Only GENERIC EXTERNAL DATA DEPARTMENT Provider, Generic External Data 10/03/2025 Abstract [facility] [address] [place] [phone] Maranda Serna MD 10/03/2025 Results Follow-Up [address] [address] Maranda Serna MD Glucose, Whole Blood, Hematoxylin and Eosin Stain 09/29/2025 Orders Only GENERIC EXTERNAL DATA DEPARTMENT Provider, Generic External Data 09/28/[address] [address] Maranda Serna MD 08/17/2025 Orders Only GENERIC [...] 11/08/2025 3:15 PM EST Office Visit [facility] [address] [place], [place] [phone] Maranda Serna MD [address] [place] [address] Health Maintenance Due Date Last Done Comments [...] (1 of 2) 2010 COVID-19 Vaccine ( season) 2025 08/06/2024, 08/31/2021, [...] Help patients manage their type 2 diabetes No Maranda Serna MD Weekly blood pressure task Care Plan Weekly blood pressure task No Maranda Serna MD Help patients manage their type 2 diabetes Care Plan Help patients manage their type 2 diabetes No Maranda Serna MD Patient has chronic kidney disease Care Plan Patient has chronic kidney disease No Maranda Serna MD Weekly blood pressure task Care Plan Weekly blood pressure task No Ayse Arce MA Weekly blood pressure task Care Plan Weekly blood pressure task No Ayse Arce MA Patient has chronic kidney disease Care Plan Patient has chronic kidney disease Ayse Gimenez MA Patient has chronic kidney disease Care Plan Patient has chronic kidney disease Ayse Gimenez MA Procedures Procedure Name Priority Date/Time Associated Diagnosis Comments GLUCOSE, WHOLE BLOOD Routine 10/13/2025 1:03 PM EST HEMATOXYLIN AND EOSIN STAIN Routine 09/29/2025 12:27 [...] disease, with long-term current use of insulin ([facility]) BI MAMMOGRAM SCREENING TOMOSYNTHESIS BILATERAL Routine 05/16/2025 12:30 PM EDT Breast cancer screening by mammogram from Last 3 Months or Most Recently Relevant to Health Maintenance Results * (ABNORMAL) Glucose, Whole Blood (10/13/2025 1:03 PM EST) Only the most recent of2 resultswithin the time period is included. Glucose, Whole Blood 198(H) 60 - 115 mg/dL [facility] Comment:METER #: [id number] 0Testing performed in the Endocrinology Department [address] , [address], [facility]. 10/13/2025 1:03 PM EST 10/13/2025 1:08 PM EST us Generic External Data Provider LAB BLOOD ORDERAB LES Final Result [facility] [address] [place] [phone] * Hematoxylin and Eosin Stain (09/29/2025 12:27 PM EST) 09/29/2025 12:2 7 PM EST 09/29/2025 1:41 PM EST Narrative [facility] - 10/03/2025 1:51 PM EST ----- ------- Name: Ese Mendoza Age/Sex: 64/F [facility] 1960 [id number]#: [id number] Attend Dr: Carline James MD Re09/29/25 Status: [facility] Location: [facility] Disch: ----- ------- SPEC : [id number] RECD: 09/29/25134 STATUS: EVELIO ORTIZ NUM: [id number] BREN: 09/29/25-1227 [facility] [address]: Carline James MD ENTERED: 09/29/25-2467 SP TYPE: Surgical OTHR DR: Maranda Serna [...] Name: Ese Mendoza Age/Sex: 64/F : 1960 [facility]#: [id number] Unit#: [id number] Attend Dr: Carline James MD Re09/29/25 Status: [facility] Location: [facility] Disch: ----- ------- SPEC : [id number] RECD: 09/29/25 STATUS: EVELIO ORTIZ NUM: [id number] BREN: 09/29/25 [facility] [address]: Carline James MD ENTERED: [...] microscopic examination, 4 pieces in cassette D. ([facility]) Special studies ordered and performed: AB/PAS stains on A IHC S/NG Disclaimer NOTE: Unless otherwise stated, all tissue is formalin-fixed and paraffin-embedded. Some or all of the immunohistochemical tests reported herein may have been developed and their performance characteristics determined by [facility]. They have not been cleared or approved by the U.S. Food and Drug Administration (FDA). However, the FDA has determined that such clearance or approval is not necessary. This laboratory is certified under the Clinical Laboratory Improvement Amendments of 1988 (CLIA) as qualified to perform high complexity clinical laboratory testing. Copies To: Maranda Serna MD [address] [phone] Carline James MD [facility] [address] [place] [address] [id number] [email or web address] ----- ------- Signed (signature on file) Refugio Golden MD 10/03/25 1351 ----- ------- END OF REPORT Generic External Data Provider LAB BLOOD ORDERAB LES Final Result Performing Organization Address [facility] Co de Phone Number [facility] [address] [place] [phone] * (ABNORMAL) Glucose, Whole Blood (09/29/2025 11:43 AM EST) [facility] Glucose, Whole Blood 153(H) 60 - 115 mg/dL [facility] Comment:METER #: [id number] 09/29/2025 11:4 3 AM EST 09/29/2025 11:47 AM EST Generic External Data Provider LAB BLOOD ORDERAB LES Final Result Performing Organization Address [facility]/ZIP Co de Phone Number [facility] [address] [place] [phone] * (ABNORMAL) Hm Colonoscopy (09/29/2025) Colonoscopy Abnormal(A ) Normal Historical Provider HEALTH MAINTENANCE Final Result * TSH with Reflex to Free T4 (07/22/2025 9:40 AM EDT) TSH reflex Free T4 3.28 0.32 - 4.0 uIU/mL [facility] 07/22/2025 9:40 AM EDT 07/22/2025 9:46 AM EDT us Generic External Data Provider LAB BLOOD ORDERAB LES Final Result Performing Organization Address City/State/[facility] Co de Phone Number [facility] [address] [place] [phone] * (ABNORMAL) CBC auto differential (07/22/2025 9:40 AM EDT) [facility] White Blood Count 7.2 4.8 - 10.8 X10*3/uL [facility] Red Blood Count 4.00(L) 4.20 - 5.50 X10*6/uL [facility] Hemoglobin 11.5(L) 12.0 - 16.0 g/dl [facility] Hematocrit 37.7 37.0 - 47.0 % [facility] Mean Corpuscular Volume 94.3 80.0 - 98.0 fL [facility] Mean Corpuscular Hemoglobin 28.8 27.0 - 33.0 pg [facility] Mean Corpuscular HGB Conc 30.5(L) 31.0 - 35.0 g/dl [facility] Red Cell Distribution Width 14.1 11.0 - 16.0 % [facility] Platelet Count 266 160 - 400 X10*3/uL [facility] Mean Platelet Volume 9.7 9.4 - 12.3 fL [facility] Neutrophils Percent Auto 60.6 45 - 73 % [facility] Imm Gran Pct Auto 0.1 0.0 - 0.4 % [facility] Lymphocytes Percent Auto 28.9 20 - 40 % [facility] Monocytes Percent Auto 7.6 2 - 11 % [facility] Eosinophils Percent Auto 2.1 0 - 4 % [facility] Basophils Percent Auto 0.7 0 - 2 % [facility] NRBC Pct Auto 0.0 0.0 - 0.2 /100WBC [facility] Neutrophils Absolute Auto 4.4 2.0 - 8.3 x10*3/uL [facility] Imm Gran Abs Auto 0.01 0.00 - 0.03 X10*3/uL [facility] Lymphocytes Absolute Auto 2.1 1.2 - 4.9 X10*3/uL [facility] Monocytes Absolute Auto 0.6 0.1 - 1.2 X10*3/uL [facility] Eosinophils Absolute Auto 0.2 0.0 - 0.4 X10*3/uL [facility] Basophils Absolute Auto 0.1 0.0 - 0.2 X10*3/uL [facility] NRBC Abs Auto 0.000 0.0 - 0.012 X10*3/uL [facility] 07/22/2025 9:40 AM EDT 07/22/2025 9:46 AM EDT us Generic External Data Provider LAB BLOOD ORDERAB LES Final Result Performing Organization Address City/[facility]/ZIP Co de Phone Number [facility] [address] [place] [phone] * Immunoglobulin E (07/22/2025 9:40 AM EDT) Pathologist [facility] Immunoglobulin E 3 <HM=779 kU/L [facility] Comment:THIS TEST WAS PERFOR MED AT:[employer] [place] [phone] CRONIN MD 07/22/2025 9:40 AM EDT 07/22/2025 9:46 AM EDT us Generic External Data Provider LAB BLOOD ORDERAB LES Final Result Performing Organization Address [facility]/ZIP Co de Phone Number [facility] [facility] [address] [place] [phone] * Lipid Panel, Standard (07/22/2025 9:40 AM EDT) Triglycerides 81 <150 mg/dL [facility] Comment:Desirable Triglyceri de: less than 150 mg/dLBorderline High Triglyceride 150-199 mg/dLHigh Triglyceride: 200-499 mg/dLVery High Triglyceride: greater than or equal to 5OO mg/dL Cholesterol 140 <200 mg/dL [facility] Comment:Desirable Cholestero l: less than 200 mg/dLBorderline High Cholesterol: 200-239 mg/dLHigh Cholesterol: greater than 239 mg/dL LDL Cholesterol Calculated 69 <100 mg/dL [facility] Comment:Desirable LDL: less than 100 mg/dLNear Optimal/Above Optimal LDL: 110- 129 mg/dLBorderline High LDL: 130-159 mg/dLHigh LDL: 160-189 mg/dLVery High LDL: greater than or equal to 190 mg/dL HDL Cholesterol 55 >40 mg/dL [facility] Comment:Desirable HDL: great er than 40 mg/dL Note: This HDL assay may give artificially low results in patients with liver disease. 07/22/2025 9:40 AM EDT 07/22/2025 9:46 AM EDT us Generic External Data Provider LAB BLOOD ORDERAB LES Final Result Performing Organization Address City/State/[facility] Co de Phone Number [facility] [address] [place] [phone] * (ABNORMAL) POCT HGB A1C (07/12/2025 3:25 PM EDT) Hemoglobin A1C 7.9(A) 4.0 - 5.7 % QC Media Lot # [id number] Lot# Expiration Date ,[id number] Blood 07/12/2025 3:25 PM EDT Maranda Serna MD POINT OF CARE TEST ENTER/EDIT OR DERABLES Final Result * BI Mammogram Screening Tomosynthesis Bilateral (05/16/2025 12:30 PM EDT) Anatomical Region Laterality Modality Breast Bilateral Mammography 05/16/2025 12:[address] [facility] 05/26/2025 7:54 PM EDT [facility] [address] [place], [place] [address] Mammography Report Signed with Howard Patient: Ese Mendoza MR#: [id number] 8 : 1960 Acct:[id number] Age/Sex: 64 / F ADM Date: 05/16/25 Loc: [place] Attending Dr: Maranda Serna MD Ordering Physician: Maranda Serna MD Results: 2Benign F indings Date of Service: 05/16/25 Follow Up: 1 Year From [facility] Mammogram Procedure(s): MM tomosynthesis screening BI Accession Number(s): [id number] cc: Maranda Serna MD ADDENDUM ADDENDUM #2 [...] Julio Pickard MD in OV> 05/26/251950 DD/ 123 TD/TT: 05/16/25 1245 Multimedia Editor: Procedure Note Donotuseinterpreter, Image - 07/19/2025 [facility] [address] [place] [address] Mammography Report Signed with Howard Patient: Ese MendozaMR#: [id number] 8 : 1960Acct:[id number] Age/Sex: 64 / FADM Date: 05/16/25 Loc: HO.MAMMO Attending Dr: Maranda Serna MD Ordering Physician: Maranda Serna MDResults: 2Benign F indings Date of Service: 05/16/25Follow Up: 1 Year From [facility] Mammogram Procedure(s): MM tomosynthesis screening BI Accession Number(s): [id number] cc: Maranda Serna MD ADDENDUM ADDENDUM #2 [...] Julio Pickard MD in OV> 05/26/251950 DD/ 123 TD/TT: 05/16/25 1245 Multimedia Editor: Maranda Serna MD IMG BI PROCEDURES Edited Result - Final from [...] Patient has chronic kidney disease 10/03/2025 Insurance [facility] C3 Care Teams Helpdesk Specialist Relationship Specialty Start Date End Date Maranda Serna MD [address] [place] [address] PCP - General Family Medicine 08/01/21
--- OUTSIDE RECORDS SUMMARY | 2025-10-14 17:37 | XMS_ITS | Encounter Summary ---
Author Organization [employer] Address [address] [facility] 7t [place] [address] Care Team Providers Care Packaging Machine Operator Name Role Phone Maranda Serna MD Primary Care Provider [phone] Encounter Details Date Type Department Care Team ([facility] st Contact Info) Description 01/28/2025 Orders Only [facility] [address] [place], [place] [phone] Maranda Serna MD [address] [place] [address] Type 2 diabetes mellitus with hyperglycemia, with long-term current use of insulin ([facility]) Social History Tobacco [...] Description 11/08/2025 3:15 PM EST Office Visit [facility] [address] [place] [phone] Maranda Serna MD [address] [place] [phone] documented as of this encounter Visit Diagnoses Diagnosis Type 2 diabetes mellitus with hyperglycemia, with long-term current use of insulin (HCC) documented in this encounter Additional Health Concerns Assessment Noted Time PHQ-9 Depression Total Score: 0 01/18/20 25 1:12 PM EDT documented as of this encounter Care Teams Packaging Machine Operator Relationship Specialty Start Date End Date Maranda Serna MD [address] [place] [phone] PCP - General Family Medicine 08/01/21 documented as of this encounter
--- OUTSIDE RECORDS SUMMARY | 2025-10-14 17:37 | XMS_ITS | Encounter Summary ---
Author Organization [employer] Address [address] [facility] 7t [place] [address] Care Team Providers Care Group Reservations Coordinator Name Role Phone Maranda Serna MD Primary Care Provider [phone] Encounter Details Date Type Department Care Team (Late st Contact Info) Description 04/22/2023 Orders Only [facility] [address] [place], [place] [phone] Maranda Serna MD [address] [place] [address] Left foot pain (Primary Dx); Type 2 diabetes mellitus with hyperglycemia, with long-term current use of insulin ([facility]) Social History Tobacco Use Types [...] Description 11/08/2025 3:15 PM EST Office Visit [facility] [address] [place] [address] Maranda Serna MD [address] [place] [address] documented as of this encounter Visit Diagnoses Diagnosis Left foot pain- Primary Pain in soft tissues of limb Type 2 diabetes mellitus with hyperglycemia, with long-term current use of insulin (HCC) documented in this encounter Additional Health Concerns Assessment Noted Time PHQ-9 Depression Total Score: 6 10/23/20 22 10:04 AM EST documented as of this encounter Care Teams Group Reservations Coordinator Relationship Specialty Start Date End Date Maranda Serna MD [address] [place] [address] PCP - General Family Medicine 08/01/21 documented as of this encounter
--- OUTSIDE RECORDS SUMMARY | 2025-10-14 17:37 | XMS_ITS | Clinical Summary ---
Author Organization [address] [facility] Address [address] [place] [address] Phone Care Team Providers Care Real Estate Legal Assistant Name Role Phone Machelle Swann MD Primary Care Provider [phone] Allergies Active Allergy Reactions Criticality Noted Date [...] 42 mcg (0.06 %) nasal spray 1 [place] by Nasal route. 09/24/20 Active omega-3 acid [...] osteoarthritis; plantar fasciitis - referred to a photographic process worker; waiting for an appt - check [...] hyperkalemia and cough -Currently prescribed Dapagliflozin from fashion patternmaker -Follow up in 3-6 mo, sooner if [...] Assessment & Plan: - followed by [facility] - no anatomical pancreatic abnormality on MRI in Dec 2022 - continue vegan / plant-based pancreatic enzyme Right knee pain 12/16/2022 Allergic rhinitis 10/12/2022 Anemia 10/12/2022 Overview (08/25/2024): Last Assessment & Plan: - likely due to chronic diseaes - Hx iron infusion - 12/24/22 Hgb 11.7, Hematocrit 35.7 Chronic idiopathic constipation 10/12/2022 Overview (08/25/2024): Last Assessment & Plan: -Followed by [facility], last seen 08/06/22 -EGD and Colonoscopy on 12/24/21; showed Tubular Adenoma, she was recommended to repeat in 3 years. - pt has been using castor oil - continue trying fiber-rich diet and increasing physical activity as tolerated. - continue Senakot as prescribed Chronic kidney disease, stag e III (moderate) ([facility] V24, [facility] V28) 10/12/2022 Overview (08/25/2024): Last Assessment & Plan: - Funeral Director, Dr. 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 Tsai is prescribing Dapagliflozin (Farxiga) - Previously on Lisinopril, but was disccontinued due to cough / K - Avoid nephrotoxic drugs - Renal dose meds Gastroesophageal reflux disease 10/12/2022 Overview (08/25/2024): Last Assessment & Plan: -s/p EGD 12/24/21 -followed by [facility] -continue omeprazole 40mg daily -previously tried pantoprazole and lansoprazole; pt prefers omeprazole. -previously prescribed famotidine. Max dose for her renal function is 20 mg daily. Pt does not take it regularly. Irritable bowel syndrome 10/12/2022 Overview (08/25/2024): Last Assessment & Plan: - followed by [facility] - continue current treatment plan per GI - low FODMAP diet - pt is prescribed simethicone, Sennakot, citrucel, but does not like taking it regularly Osteopenia 10/12/2022 Atrial fibrillation ([facility] V24, [facility] V28) 0 12/25/2021 Cobalamin deficiency 12/25/2021 Diabetic retinopathy ([facility], [facility] V28) 12/25/2021 Nephrolithiasis 12/25/2021 Overview (08/25/2024): Last Assessment & Plan: - seen by urologist, last visit on Vitamin D deficiency 12/25/2021 Diabetic peripheral neuropat hy associated with type 2 diabetes mellitus ([facility] V24, [facility] V28) 11/22/2019 Nonrheumatic mitral valve [...] exacerbati on 01/26/2019 Pulmonary hypertension ([facility], [facility] V28 ) 12/31/2018 Pulmonary arterial hypertension ([facility], [facility] V28) 11/19/2018 Ulcer of foot ([facility], [facility] V28) 011 Encounters Date Type Department Care Team Description 08/18/2025 3:00 PM EDT Office Visit [facility] [place] [address] [place] [phone] Damien Centeno DPM Controlled type 2 diabetes mellitus with diabetic polyneuropathy, without long-term current use of insulin ([facility] V24, [facility] V28) (Primary Dx); Pain in [...] PM EST Office Visit Orthopedic Surgery - [place] [address] [phone] Damien Centeno, VENESSA [address] [address] Health Maintenance Due Date Last Done Comments [...] Test (12/30/2023) Annual BMP Blood Test Abstracted [facility] Provider HEALTH MAINTENANCE Final Result * Hemoglobin A1c (12/30/2023) Pathologist [facility] Hemoglobin A1C 0.0 % Comment:no interpretation Blood Venous blood specimen / Unknown Result [facility] Provider LAB BLOOD ORDERABLES Machelle l Result * Lipid panel (12/30/2023) Pathologist [facility] Triglycerides 0 mg/dL Comment:no interpretation Cholesterol 0 mg/dL Comment:no interpretation HDL 0 mg/dL Comment:no interpretation LDL Cholesterol 0 mg/dL Comment:no interpretation Blood Venous blood specimen / Unknown Result [facility] Provider LAB BLOOD ORDERABLES Machelle l Result * Urine Albumin Creatinine Ratio (07/24/2022) Pathologist [facility] Urine Albumin Creatinine Ratio Abstracted [facility] Provider HEALTH MAINTENANCE Final Result from Last 3 Months or Most Recently Relevant to Health Maintenance Insurance [place] Care Teams Real Estate Legal Assistant Relationship Specialty Start Date End Date Machelle Swann MD [address] [place] [address] [place] [address] PCP - General 10/15/12
--- OUTSIDE RECORDS SUMMARY | 2025-10-14 17:37 | XMS_ITS | Encounter Summary ---
Author Organization [facility] Address [address] [place] [address] Care Team Providers Care Rental Representative Name Role Phone Viet Sánchez Unavailable [phone] Viet Sánchez Primary Care Provider [phone] Encounter Details Date Type Department Care Team (Late st Contact Info) Description 08/06/2018 Scanned Document [facility] Urologic Surgery [place] [address] [facility] [address] [place] [address] Provider, MD Sheryl [address] [place] [address] Social History Tobacco Use Types Packs/Day Years [...] on filedocumented in this encounter Care Teams Rental Representative Relationship Specialty Start Date End Date Viet Sánchez PA [address] [place] [address] PCP - General 06/18/18 Viet Sánchez PA [address] [place] [address] 06/18/18 documented as of this encounter
--- OUTSIDE RECORDS SUMMARY | 2025-10-14 17:37 | XMS_ITS | Encounter Summary ---
Author Organization [facility] Address [address] [place] [address] Care Team Providers Care Manager Grant Name Role Phone Viet Sánchez Unavailable [phone] Viet Sánchez Primary Care Provider Encounter Details Date Type Department Care Team (Late st Contact Info) Description 11/09/2019 Prep for Surgery [facility] [address] [place] [phone] Holland Hunt MD [address] [place] [address] Social History Tobacco Use Types Packs/Day Years [...] filedocumented in this encounter Care Teams Manager Grant Relationship Specialty Start Date End Date Viet Sánchez PA [address] [place] [address] PCP - General 06/18/18 Viet Sánchez PA [address] [place] [address] 06/18/18 documented as of this encounter
--- OUTSIDE RECORDS SUMMARY | 2025-10-14 17:37 | XMS_ITS | Encounter Summary ---
Author Organization [employer] Address [address] [facility] 7t [place] [address] Care Team Providers Care Fine Arts Teacher Name Role Phone Maranda Serna MD Primary Care Provider [phone] Encounter Details Date Type Department Care Team ([facility] Contact Info) Description 10/13/2025 Orders Only GENERIC EXTERNAL DATA [...] Description 11/08/2025 3:15 PM EST Office Visit [facility] [address] [place], [place] [phone] Maranda Serna MD [address] [place], [place] [phone] documented as of this encounter Goals Goal [...] Arce [place] documented as of this encounter Procedures Procedure Name Priority Date/Time Associated Diagnosis Comments GLUCOSE, WHOLE BLOOD Routine 10/13/2025 1:03 PM EST documented in this encounter Results * (ABNORMAL) Glucose, Whole Blood (10/13/2025 1:03 PM EST) Glucose, Whole Blood 198(H) 60 - 115 mg/dL [facility] Comment:METER #: [id number] 0Testing performed in the Endocrinology Department [address] , [address], [facility]. 10/13/2025 1:03 PM EST 10/13/2025 1:08 PM EST us Generic External Data Provider LAB BLOOD ORDERAB LES Final Result Performing Organization Address City/State/[facility] Co de Phone Number [facility] [address] [place] [address] [phone] documented in this encounter Visit Diagnoses [...] documented as of this encounter Care Teams Fine Arts Teacher Relationship Specialty Start Date End Date Maranda Serna MD [address] [place] [phone] PCP - General Family Medicine 08/01/21 documented as of this encounter
--- OUTSIDE RECORDS SUMMARY | 2025-10-14 17:37 | XMS_ITS | Encounter Summary ---
Author Organization [employer] Address [address] [facility] 7t [place] [address] Care Team Providers Care Police Artist Name Role Phone Maranda Serna MD Primary Care Provider [phone] Reason for Visit * Reason Onset Date Comments Hospital Follow-up 12/07/2024 Encounter Details Date Type Department Care Team ([facility] Contact Info) Description 12/07/2024 Telephone [facility] [address] [place], [place] [phone] Maranda Serna MD [address] [place], [place] [phone] Hospital Follow-up Social History Tobacco Use Types [...] follow up. Pt requested a call back. [phone] (Pt Contact) documented in this encounter Plan of Treatment Upcoming Encounters Date Type Department Care Team (Late st Contact Info) Description 11/08/2025 3:15 PM EST Office Visit [facility] [address] [place] [phone] Maranda Serna MD [address] [place] [address] documented as of this encounter Visit Diagnoses Not on filedocumented in this encounter Additional Health Concerns Assessment Noted Time PHQ-9 Depression Total Score: 6 10/23/20 22 10:04 AM EST documented as of this encounter Care Teams Police Artist Relationship Specialty Start Date End Date Maranda Serna MD [address] [place] [address] PCP - General Family Medicine 08/01/21 documented as of this encounter
--- OUTSIDE RECORDS SUMMARY | 2025-10-14 17:37 | XMS_ITS | Encounter Summary ---
Author Organization [employer] Address [address] [facility] 7t [place] [address] Care Team Providers Care Molding Press Operator Name Role Phone Maranda Serna MD Primary Care Provider [phone] Reason for Visit * Reason Comments Med Refill Encounter Details Date Type Department Care Team ([facility] st Contact Info) Description 01/12/2025 Refill [facility] [address] [place], [place] [phone] Yesica Naylor MD [address] [place] [address] Social History Tobacco Use Types Packs/Day Years [...] Description 11/08/2025 3:15 PM EST Office Visit [facility] [address] [place] [phone] Maranda Serna MD [address] [place] [address] documented as of this encounter Visit Diagnoses Not on filedocumented in this encounter Additional Health Concerns Assessment Noted Time PHQ-9 Depression Total Score: 6 10/23/20 22 10:04 AM EST documented as of this encounter Care Teams Molding Press Operator Relationship Specialty Start Date End Date Maranda Serna MD [address] [place] [address] PCP - General Family Medicine 08/01/21 documented as of this encounter
--- OUTSIDE RECORDS SUMMARY | 2025-10-14 17:37 | XMS_ITS ---
MRI- [facility] Access ion Number : [id number] Elvin hussein Name: Ese Mendoza Record Number : [id number] Date of : 1959 Date of Exam: 2023 Referr daniel scalesn: Vineet nicholas, Genaro [facility] [place] [address] [place] [address] Exam: MR Orbits , Face, Neck (C-/C+ ) CPT 75045 Room Descri ption: [place] [facility] 3T MRI of the soft [...] Electr onical ly Signed By: Vikram mike [facility] ([facility]) [address] [facility] [place], [address], 10/01/2024 16:52:47 Result Notes Documentation Provider Name and Address Organization Details Recorded Time Mri, Head + Neck + Orbits, W/wo Contrast : [facility] Accession Number: [id number] Patient Name: Ese Mendoza Date of : 1960 Date of Exam: 09-25-2024 Referring Physician: Genaro Pelaez [facility] [address] [address] Exam: MR Orbits, Face, Neck (C-/C+) CPT 18883 Room Description: [facility] 3T MRI of the soft tissues [...] ACR criteria. 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 Procedures Surgical History Date Name Laterality Status Provider Name and Address Organization Details Recorded Time 07/01/2024 FFL_RE completed GENARO PELAEZ MD [address] [place] [address], [place], [address], [facility] 07/01/2024 12:01:28 Imaging Results None recorded. Procedure Notes None recorded. Medical Equipment None Reported. Allergies Allergen ID Allergen Name Allergen Category Reaction Reaction Severity Criticality Documentation Date Start Date Code Code System Note Provider Name and Address Organization Details Recorded Time 590085 rubber, unspecifi ed environme nt,medica tion Not available Not available Not available 07/01/2024 Ashu quesada [place] [facility] 4 11:45:16 252300 pork allergeni c extract food,medi cation Not available Not available Not available 07/01/2024 22689 8 RxNorm Ashu quesada [facility] 4 11:45:41 Medications Name Sig Start [...] Available Not Available No t Available FreeStyle [place] Lite kit USE DIRECTED TO TEST BLOOD [...] Available No t Available FreeStyle Doug 2 [place] USE DIRECTED active Not Available Not Available No t Available Vitals Date Recorded Body height Body mass index (BMI) Body weight Provider Name and Address Organization Details Last Updated DateTime 05/17/2025 157.48 cm 38.4 kg/m2 30139.4 g Shelly Ontiveros [place] - [facility] 05/17/2025 15:55:10 Date Recorded Body height Body mass index (BMI) Body weight Provider Name and Address Organization Details Last Updated DateTime 07/01/2024 157.48 cm 38.4 kg/m2 99116.4 g Ashu Gutiérrez [place] - [facility] 07/01/2024 11:54:39 Social History None recorded. Functional Status None recorded. Mental Status None recorded. Family History Nothing Reported. Medical History No medical history recorded. Gynecological HistoryNo gynecological history recorded. Obstetrics History GPAL:G 0 P 0 0 0 0 Past Encounters Encounter ID Performer Location Encounter Start Date Encounter Closed Date Diagnosis/Indication Diagnosis SNOMED-CT Code Diagnosis ICD10 Code Diagnosis IMO Codes Diagnosis Note [id number] GENARO PELAEZ MD [facility] [address] [address] 07/01/2024 11:04:43 07/01/2024 12:01:09 Oropharyngeal dysphagia 27989052 R13.12 I recommend an MBS to better evaluate. 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 I will evaluate with a contrasted CT to make sure there are no tumors. Dysphagia 45910232 R13.1 0 see above [id number] GENARO PELAEZ MD [facility] [address] [address] 05/17/2025 15:47:39 05/17/2025 16:14:42 Oropharyngeal dysphagia 99338700 R13.12 I recommend an MBS to better evaluate. Benign joy plasm of oropharynx 39744040 D10.5 I personally reviewed her MRI which was negative. I gave reassuranc e. She may f/u as needed. Dysphagia 19717708 R13.1 0 recommend f/u with GI. Health Concerns Section Related Observation LastModified by Organization Detai ls LastModified Time None Recorded Concern Status LastModified by Organization Details LastModified Time None Recorded Advance Directives Directive None Recorded Payers Insurance Date Sequence Insurance Name Policy Number Policy Singer Covered Member ID Singer Member ID Guarantor Name 05/17/2025 1 MEDICAID-[place]: [facility] Ese N Reji [id number] Ese Reji 05/17/2025 1 MEDICAID-[place] - [facility] (MEDICAID) Ese Reji [id number] Ese Reji Notes Date Note Type Note [...] Takes omeprazole for GERD. GENARO PELAEZ MD [address] [place] [address], [address], [place] - [facility] 07/01/2024 12:04:21 05/17/2025 text/html ROS as noted in the HPI She has trouble swallowing large pills. It can occur with food as well. MBS was reassuring. MRI of neck was negative for tumors. She has pending visit with GI. thyroid nodule was seen and no f/u was recommend based on radiologic criteria. Takes omeprazole for GERD. GENARO PELAEZ MD [address] [facility],[address], [address], [facility] - [facility] 05/17/2025 16:09:10 OBGyn Episode No OBEpisode recorded.
--- OUTSIDE RECORDS SUMMARY | 2025-10-14 17:37 | XMS_ITS | Encounter Summary ---
Author Organization [facility] Address [address] [place] [address] Care Team Providers Care Escrow Secretary Name Role Phone Viet Sánchez Unavailable [phone] Viet Sánchez Primary Care Provider [phone] Encounter Details Date Type Department Care Team (Late st Contact Info) Description 07/07/2018 Scanned Document [facility] Urologic Surgery [place] [address] [facility] [address] [place] [address] Provider, Sheryl, [address] [place] [address] Social History Tobacco Use Types Packs/Day Years [...] on filedocumented in this encounter Care Teams Escrow Secretary Relationship Specialty Start Date End Date Viet Sánchez PA [address] [place] [address] PCP - General 06/18/18 Viet Sánchez PA [address] [place] [address] 06/18/18 documented as of this encounter
--- OUTSIDE RECORDS SUMMARY | 2025-10-14 17:38 | XMS_ITS | Encounter Summary ---
Author Organization [employer] Address [address] [facility] 7t [place] [address] Care Team Providers Care Pull Worker Name Role Phone Maranda Serna MD Primary Care Provider [phone] Reason for Visit * Reason Onset Date Comments Durable Medical Equipment 05/26/2024 Encounter Details Date Type Department Care Team ([facility] st Contact Info) Description 05/26/2024 Telephone [facility] [address] [place], [place] [phone] Maranda Serna MD [address] [place], [place] [phone] Durable Medical Equipment Social History Tobacco Use [...] walker. Pt stated she was advised by sports physician jigneshow up with orthopedic and they prescribed a walker for the pt. Pt wants script send over to [facility] [address] If any questions you can contact pt at [phone]. documented in this encounter Plan of Treatment Upcoming Encounters Date Type Department Care Team ([facility] st Contact Info) Description 11/08/2025 3:15 PM EST Office Visit [facility] [address] [place] [address] Maranda Serna MD [address] [place] [address] documented as of this encounter Visit Diagnoses Not on filedocumented in this encounter Additional Health Concerns Assessment Noted Time PHQ-9 Depression Total Score: 6 10/23/20 22 10:04 AM EST documented as of this encounter Care Teams Pull Worker Relationship Specialty Start Date End Date Maranda Serna MD [address] [place] [address] PCP - General Family Medicine 08/01/21 documented as of this encounter
--- OUTSIDE RECORDS SUMMARY | 2025-10-14 17:38 | XMS_ITS | Clinical Summary ---
Author Organization [facility] Address [address] [place] [address] Care Team Providers Care Market Risk Specialist Name Role Phone Viet Sánchez Unavailable [phone] Viet Sánchez Primary Care Provider [phone] Allergies Active Allergy Reactions Criticality Noted Date [...] Active Problems Problem Noted Date Diagnosed Date retirement current use of insulin 11/22/2019 Diabetic peripheral [...] this topic Medical Devices Implanted Type Area Manager Ecommerce Device Identifier Shelf Expiration Date Model / Serial / Lot [id number] Lens Iol 0 D +21.5 Brianda Mod L Bcnvx 13mm 6mm Posterior - [id number] Implanted:Qty: 1 on 01/27/2020 by Obinna Lorenzana MD at [facility] [place] Lens [employer] [id number] / [id number] / Procedures Procedure Name Priority Date/Time Associated [...] 12:01 PM 01/27/2020 12:06 PM Care Teams Market Risk Specialist Relationship Specialty Start Date End Date Viet Sánchez PA [address] [place] [address] PCP - General 06/18/18 Viet Sánchez PA [address] [place] [address] 06/18/18
--- OUTSIDE RECORDS SUMMARY | 2025-10-14 17:38 | XMS_ITS | Clinical Summary ---
Author Organization [facility] Prior to 04/09/25 Address [address] [place] [address] Care Team Providers Care Railway Signal Operator Name Role Phone Viet Sánchez Primary Care Provider [phone] Allergies Active Allergy Reactions Criticality Noted Date [...] age to complete this topic Care Teams Railway Signal Operator Relationship Specialty Start Date End Date Viet Sánchez [address] [place] [address] PCP - General Medical Services 06/19/18
--- OUTSIDE RECORDS SUMMARY | 2025-10-14 17:38 | XMS_ITS | Encounter Summary ---
Author Organization [facility] Address [address] [place] [address] Care Team Providers Care Petroleum Products District Supervisor Name Role Phone Viet Sánchez Unavailable [phone] Viet Sánchez Primary Care Provider Encounter Details Date Type Department Care Team (Late st Contact Info) Description 02/18/2020 Scanned Document [facility] [address] [place] [phone] Provider, Sheryl, [address] [place] [address] Social History Tobacco Use Types Packs/Day Years [...] on filedocumented in this encounter Care Teams Petroleum Products District Supervisor Relationship Specialty Start Date End Date Viet Sánchez PA [address] [place] [address] PCP - General 06/18/18 Viet Sánchez PA [address] [place] [address] 06/18/18 documented as of this encounter
--- OUTSIDE RECORDS SUMMARY | 2025-10-14 17:38 | XMS_ITS | Encounter Summary ---
Author Organization [facility] Address [address] [place] [address] Care Team Providers Care Nitroglycerin Nitrator Operator Batch Name Role Phone Viet Sánchez Unavailable [phone] Viet Sánchez Primary Care Provider Encounter Details Date Type Department Care Team (Late st Contact Info) Description 02/02/2020 Prep for Surgery [facility] [address] [place] [address] Holland Hunt MD [address] [place] [address] Social History Tobacco Use Types Packs/Day Years [...] on filedocumented in this encounter Care Teams Nitroglycerin Nitrator Operator Batch Relationship Specialty Start Date End Date Viet Sánchez PA [address] [place] [address] PCP - General 06/18/18 Viet Sánchez PA [address] [place] [address] 06/18/18 documented as of this encounter
--- OUTSIDE RECORDS SUMMARY | 2025-10-14 17:38 | XMS_ITS | Encounter Summary ---
Author Organization [employer] Address [address] [facility] 7t [place] [address] Care Team Providers Care Lawn Care Professional Name Role Phone Maranda Serna MD Primary Care Provider [phone] Reason for Visit * Reason Onset Date Comments Appointment Request 05/28/2024 Encounter Details Date Type Department Care Team ([facility] st Contact Info) Description 05/28/2024 Telephone [facility] [address] [place], [place] [phone] Maranda Serna MD [address] [place], [place] [phone] Appointment Request Social History Tobacco Use Types [...] Description 11/08/2025 3:15 PM EST Office Visit [facility] [address] [place] [address] Maranda Serna MD [address] [place] [address] documented as of this encounter Visit Diagnoses Not on filedocumented in this encounter Additional Health Concerns Assessment Noted Time PHQ-9 Depression Total Score: 6 10/23/20 22 10:04 AM EST documented as of this encounter Care Teams Lawn Care Professional Relationship Specialty Start Date End Date Maranda Serna MD [address] [place] [address] PCP - General Family Medicine 08/01/21 documented as of this encounter
--- OUTSIDE RECORDS SUMMARY | 2025-10-14 17:38 | XMS_ITS | Encounter Summary ---
Author Organization [facility] Address [address] [place] [address] Care Team Providers Care Supervisor Lending Activities Name Role Phone Viet Sánchez Unavailable [phone] Viet Sánchez Primary Care Provider [phone] Encounter Details Date Type Department Care Team (Late st Contact Info) Description 05/22/2020 Scanned Document [facility] [address] [address] Deja Rico, [place] [address] Social History Tobacco Use Types Packs/Day Years [...] filedocumented in this encounter Care Teams Supervisor Lending Activities Relationship Specialty Start Date End Date Viet Sánchez PA [address] [place] [address] PCP - General 06/18/18 Viet Sánchez PA [address] [place] [address] 06/18/18 documented as of this encounter
== END 2025-10-14 14:32 | disposition home or self-care (01) ==
LOC: HO.HGI 13:31
PROVIDERS: PCP Family Medicine; Visit Provider Nurse Practitioner Family
DX: K21.9 Gastro-esophageal reflux disease without esophagitis (principal); K86.89 Other specified diseases of pancreas; K58.1 Irritable bowel syndrome with constipation; D12.6 Benign neoplasm of colon, unspecified; R14.0 Abdominal distension (gaseous); Z98.890 Other specified postprocedural states
CPT/HCPCS: 99214

== ENCOUNTER → 2025-10-14 13:31 | Outpatient (BNVA) | payer MEDICAID, SELFPAY | PROVIDERS: PCP Family Medicine; Visit Provider Nurse Practitioner Family | DX: K21.9 Gastro-esophageal reflux disease without esophagitis (principal); K58.1 Irritable bowel syndrome with constipation; D12.2 Benign neoplasm of ascending colon; D12.4 Benign neoplasm of descending colon; D12.5 Benign neoplasm of sigmoid colon; R14.0 Abdominal distension (gaseous); Z98.890 Other specified postprocedural states | CPT/HCPCS: 99212 ==

== ENCOUNTER 2025-10-19 14:31 | Outpatient (AMB) | payer MEDICARE, MEDICAID, SELFPAY ==
--- NOTE | 2025-10-19 14:33 | A.OFFVIS_ITS ---
Vital Signs 10/19/25 14:36 Height 5 ft 2 in Weight 199 lb 4.766 oz BMI 36.4 BP 120/66 Blood Pressure Location Lt brachial Position Sitting Pulse 88 Pulse Source Pulse Oximeter Intake Visit Reasons: 5 mth f/up Intake Note: 5 mth f/up Aeronautical Inspector Required: No Accompanied by: Self / Same As Patient Allergies Pork/Porcine Containing Products (Pork/Porcine Product Derivatives) Allergy (Mild, Verified 10/14/25 13:37) SORES /ITCHING Seasonal Allergies Allergy (Mild, Verified 10/14/25 13:37) Itching nickel Adverse Reaction (Verified 10/14/25 13:37) Swelling and irritation Medication List - Last Reconciled 10/19/25 by Pawel Schroeder MD acetaminophen (Tylenol Extra Strength) 500 mg PO Q6H PRN Advair HFA 230-21 mcg/actuation (fluticasone propion-salmeterol) 2 puffs inhalation Q12H NS albuterol sulfate 90 mcg/actuation 2 puffs inhalation Q4-6H PRN ammonium lactate 12% 1 appl topical DAILY ascorbic acid (vitamin C) 1,000 mg PO DAILY aspirin (St Vladimir Aspirin) 81 mg PO DAILY atorvastatin 80 mg PO DAILY bisacodyl (Dulcolax (bisacodyl)) 10 mg (2 x 5 mg) PO BEDTIME blood pressure monitor As directed blood sugar diagnostic (FreeStyle Lite Strips) As directed carvedilol 6.25 mg See Protocol PO BID Held on 09/29/25. Instructions: Resume on 09/30/25. HOLD plavix today. Resume tomorrow clopidogrel 75 mg PO DAILY dapagliflozin propanediol (Farxiga) 5 mg PO QAM digestive enzymes 1 cap PO BID diphenhydramine-acetaminophen 25-500 mg (Tylenol PM Extra Strength) 1 tab PO BEDTIME PRN famotidine (Pepcid) 20 mg PO BID ferrous sulfate 325 mg PO Q OTHER DAY fesoterodine ER (Toviaz) 8 mg PO DAILY fluticasone propionate 50 mcg/actuation 1 spray intranasal DAILY PRN incontinence pad, liner, disp As directed: change pads Q2-3 hours/PRN insulin degludec (Tresiba FlexTouch U-200 insulin) 40 units (0.2 mL) subcut BEDTIME insulin lispro (Humalog KwikPen U-200 Insulin) 45 units (0.225 mL) subcut TID 90 days isosorbide mononitrate ER 30 mg PO DAILY lancets (OneTouch Delica Plus Lancet) As directed omega 6-bia-ctj-fish oil 1,000 (120-180) mg (Fish Oil) 1 cap PO DAILY pen needle, diabetic (Easy Touch) As directed prednisolone acetate 1% (Pred Forte) 1 drp ophthalmic-Left QID senna leaf mL PO simethicone (Gas Relief (simethicone)) 125 mg PO BID-TID PRN tirzepatide (Mounjaro) 2.5 mg subcut QWEEK vitamin B complex 1 tab PO DAILY HPI Comments Details: Pleasant 64 year lady who is here for follow-up. She has background history of diabetes, hyperlipidemia, recurrent bronchitis and coronary artery disease. She presented in November of 2024 with bronchitis like episode and chest discomfort and ruled in for NSTEMI. She was taken for cardiac catheterization. Cardiac catheterization revealed diffuse coronary disease and small-sized vessels with severe OM stenosis. There was also severe mid to distal LAD stenosis as well as moderate proximal LAD stenosis. She was medically managed and she did well. She has been doing fine at this stage II and has no exertional symptoms. Her only complaint is significant dyspepsia and she is following with GI for that. [facility] Medical History Tubular adenoma of colon Pancreatic insufficiency Pancreatic insufficiency Tubular adenoma CKD (chronic kidney disease) Anemia GERD (gastroesophageal reflux disease) Renal cyst Bladder prolapse, female, acquired Hx of gastric ulcer IBS (irritable bowel syndrome) Kidney stones High cholesterol Diabetes Surgical History H/O foot surgery H/O foot surgery History of tonsillectomy Hx of endoscopy Hx of colonoscopy History of partial hysterectomy Hx of breast reduction, elective Hx of cholecystectomy Family History Father Heart attack DM2 (diabetes mellitus, type 2) Mother DM2 (diabetes mellitus, type 2) COPD (chronic obstructive pulmonary disease) Other No pertinent family history Social History Household Members: Family Housing: House Do you presently have visiting nurse or other home services: No Alcohol intake: never Patient Tobacco Use Status: Never used Tobacco Second Hand Smoke Exposure: No service: No Review of Systems Const Denies chills, Denies fatigue, Denies fever(s), Denies frequent falls, Denies weakness, Denies weight gain and Denies weight loss ENT Denies dizziness Card Denies chest pain, Denies leg edema, Denies lightheadedness, Denies palpitations, Denies dyspnea and Denies dyspnea on exertion Resp Denies cough, Denies dyspnea and Denies dyspnea on exertion GI Denies hematochezia Musc Denies abnormal gait, Denies muscle weakness, Denies numbness, Denies radiating pain into limb and Denies tingling Neuro Denies abnormal gait, Denies dizziness, Denies frequent falls, Denies numbness, Denies tingling and Denies weakness Endo Denies fatigue and Denies palpitations Physical Exam Vital Signs: Last Vital Signs Pulse 88 10/19/25 14:36 BP 120/66 10/19/25 14:36 BMI result Body Mass Index 36.4 GENERAL APPEARANCE: in no acute distress, pleasant. NECK: no carotid bruit, no jugular venous distention. SKIN: no suspicious lesions, warm and dry. HEART: no murmurs, regular rate and rhythm. LUNGS: clear to auscultation bilaterally. ABDOMEN: soft, nontender. EXTREMITIES: no edema. PERIPHERAL PULSES: equal. NEUROLOGIC: No gross deficits, AAO X 3 Assessment & Plan Assessment & Plan (1) CAD (coronary artery disease): Code(s): I25.10 - Atherosclerotic heart disease of [place] coronary artery without angina pectoris Category: Medical Plan Pleasant 64 year lady with multiple risk factors and coronary artery disease. She has severe OM stenosis which was a small-sized vessel as well as severe LAD stenosis in the fht-ct-hcpgmk segment. She also has moderate proximal LAD indira nosis. Her vessels are the classic diabetic vessels with diffuse disease. She was medically managed and has been doing well. Blood pressure well controlled. She is on atorvastatin 80 mg daily. LDL target is less than 55. She has significant GI upset and I have advised her to stop the aspirin and continue Plavix monotherapy from here onwards. Follow up with us in 4 months. Thank you for allowing me to participate in the care of your patient. Please feel free to contact me if you have any questions. Coding Level of Care Code Est Pt Level 4 (94242) Diagnoses CAD (coronary artery disease) I25.10
[2025-10-19 14:36] VITALS: BP 120/66; PULSE 88; BMI 36.4
--- OUTSIDE RECORDS SUMMARY | 2025-10-19 22:46 | XMS_ITS | Encounter Summary ---
Author Organization [facility] Address [address] [place] [address] Care Team Providers Care Resident Services Director Name Role Phone Viet Sánchez Unavailable [phone] Viet Sánchez Primary Care Provider Encounter Details Date Type Department Care Team (Late st Contact Info) Description 07/07/2018 Scanned Document [facility] Urologic Surgery [place] [address] [facility] [address] [place] [address] Provider, Sheryl, [address] [place] [address] Social History Tobacco Use Types Packs/Day Years [...] on filedocumented in this encounter Care Teams Resident Services Director Relationship Specialty Start Date End Date Viet Sánchez PA [address] [place] [address] PCP - General 06/18/18 Viet Sánchez PA [address] [place] [address] 06/18/18 documented as of this encounter
--- OUTSIDE RECORDS SUMMARY | 2025-10-19 22:46 | XMS_ITS | Encounter Summary ---
Author Organization [employer] Address [address] [facility] 7t [place] [address] Care Team Providers Care Road Freight Conductor Name Role Phone Maranda Serna MD Primary Care Provider [phone] Reason for Visit * Reason Comments Med Refill Encounter Details Date Type Department Care Team ([facility] st Contact Info) Description 01/12/2025 Refill [facility] [address] [place], [place] [phone] Yesica Naylor MD [address] [place] [address] Social History Tobacco Use Types Packs/Day Years [...] Description 11/08/2025 3:15 PM EST Office Visit [facility] [address] [place] [address] Maranda Serna MD [address] [place] [address] documented as of this encounter Visit Diagnoses Not on filedocumented in this encounter Additional Health Concerns Assessment Noted Time PHQ-9 Depression Total Score: 6 10/23/20 22 10:04 AM EST documented as of this encounter Care Teams Road Freight Conductor Relationship Specialty Start Date End Date Maranda Serna MD [address] [place] [address] PCP - General Family Medicine 08/01/21 documented as of this encounter
--- OUTSIDE RECORDS SUMMARY | 2025-10-19 22:46 | XMS_ITS | Encounter Summary ---
Author Organization [employer] Address [address] [facility] 7t [place] [address] Care Team Providers Care Wire Weaver Name Role Phone Maranda Serna MD Primary Care Provider [phone] Reason for Visit * Reason Onset Date Comments Hospital Follow-up 12/07/2024 Encounter Details Date Type Department Care Team ([facility] Contact Info) Description 12/07/2024 Telephone [facility] MEDICINE [address] [place], [place] [phone] Maranda Serna MD [address] [place], [place] [phone] Hospital Follow-up Social History Tobacco Use Types [...] follow up. Pt requested a call back. [phone] (Pt Contact) documented in this encounter Plan of Treatment Upcoming Encounters Date Type Department Care Team (Late st Contact Info) Description 11/08/2025 3:15 PM EST Office Visit [facility] MEDICINE [address] [place] [address] Maranda Serna MD [address] [place] [address] documented as of this encounter Visit Diagnoses Not on filedocumented in this encounter Additional Health Concerns Assessment Noted Time PHQ-9 Depression Total Score: 6 10/23/20 22 10:04 AM EST documented as of this encounter Care Teams Wire Weaver Relationship Specialty Start Date End Date Maranda Serna MD [address] [place] [address] PCP - General Family Medicine 08/01/21 documented as of this encounter
--- OUTSIDE RECORDS SUMMARY | 2025-10-19 22:46 | XMS_ITS | Encounter Summary ---
Author Organization [employer] Address 75 [facility] 7t [place] [address] Care Team Providers Care Lathe Operator Contact Lens Name Role Phone Maranda Serna MD Primary Care Provider [phone] Encounter Details Date Type Department Care Team ([facility] st Contact Info) Description 01/28/2025 Orders Only [facility] MEDICINE [address] [place], [place] [phone] Maranda Serna MD [address] [place] [address] Type 2 diabetes mellitus with hyperglycemia, with long-term current use of insulin ([facility] Social History Tobacco Use [...] Description 11/08/2025 3:15 PM EST Office Visit [facility] MEDICINE [address] [place] [address] Maranda Serna MD [address] [place] [address] documented as of this encounter Visit Diagnoses Diagnosis Type 2 diabetes mellitus with hyperglycemia, with long-term current use of insulin (HCC) documented in this encounter Additional Health Concerns Assessment Noted Time PHQ-9 Depression Total Score: 0 01/18/20 25 1:12 PM EDT documented as of this encounter Care Teams Lathe Operator Contact Lens Relationship Specialty Start Date End Date Maranda Serna MD [address] [place] [address] PCP - General Family Medicine 08/01/21 documented as of this encounter
--- OUTSIDE RECORDS SUMMARY | 2025-10-19 22:46 | XMS_ITS | Encounter Summary ---
Author Organization [employer] Address 75 [facility] 7t [place] [address] Care Team Providers Care Technology Education Teacher Name Role Phone Maranda Serna MD Primary Care Provider [phone] Reason for Visit * Reason Comments Med Refill Encounter Details Date Type Department Care Team ([facility] st Contact Info) Description 11/19/2023 Refill [facility] MEDICINE [address] [place], [place] [phone] Yesica Naylor MD [address] [place] [address] Social History Tobacco Use Types Packs/Day Years [...] [facility] MEDICINE [address] [place] [address] Maranda Serna MD [address] [place] [address] documented as of this encounter Visit Diagnoses Not on filedocumented in this encounter Additional Health Concerns Assessment Noted Time PHQ-9 Depression Total Score: 6 10/23/20 22 10:04 AM EST documented as of this encounter Care Teams Technology Education Teacher Relationship Specialty Start Date End Date Maranda Serna MD [address] [place] [address] PCP - General Family Medicine 08/01/21 documented as of this encounter
--- OUTSIDE RECORDS SUMMARY | 2025-10-19 22:46 | XMS_ITS | Encounter Summary ---
Author Organization [facility] Address [address] [place] [address] Care Team Providers Care Bulk Delivery Driver Name Role Phone Viet Sánchez Unavailable [phone] Viet Sánchez Primary Care Provider [phone] Encounter Details Date Type Department Care Team (Late st Contact Info) Description 02/02/2020 Prep for Surgery [facility] [address] [place] [address] Holland Hunt MD [address] [place] [address] Social History Tobacco Use Types Packs/Day Years [...] on filedocumented in this encounter Care Teams Bulk Delivery Driver Relationship Specialty Start Date End Date Viet Sánchez PA [address] [place] [address] PCP - General 06/18/18 Viet Sánchez PA [address] [place] [address] 06/18/18 documented as of this encounter
--- OUTSIDE RECORDS SUMMARY | 2025-10-19 22:46 | XMS_ITS | Encounter Summary ---
Author Organization [employer] Address 75 [facility] 7t [place] [address] Care Team Providers Care Plater Printed Circuit Board Panels Name Role Phone Maranda Serna MD Primary Care Provider Reason for Referral * Imaging (Routine) - Closed Specialty Diagnoses / Procedures Referred By Rodney hussein Referred To Contact Radiology Diagnoses Pulmonary nodule Procedures CT Chest w/o Contrast Maranda Serna MD [address] [place] [address] Phone: tel: fax: [facility] [address] [place] [address] Phone: tel: fax: Referral ID Status Reason Start Date Expiration Date Visits Re quested Visits Authorized [id number] Closed 02/07/2025 02/07/2026 1 1 Encounter Details Date Type Department Care Team (Late st Contact Info) Description 02/07/2025 Orders Only [facility] MEDICINE [address] [place], [place] [phone] Maranda Serna MD [address] [place], [place] [phone] Pulmonary nodule (Primary Dx) Social History Tobacco [...] 3:15 PM EST Office Visit [facility] MEDICINE [address] [place] [address] Maranda Serna MD [address] [place] [address] documented as of this encounter Procedures Procedure Name Priority Date/Time Associated Diagnosis Comments CT CHEST WO CONTRAST Routine 02/25/2025 11:15 AM EDT Pulmonary nodule documented in this encounter Results * CT Chest w/o Contrast (02/25/2025 11:15 AM EDT) Anatomical Region Laterality Modality Body, Chest Computed Tomogra phy 02/25/2025 11:1 5 AM EDT Narrative 02/25/2025 11:59 AM EDT [place] [address] [address] Scan Report Signed Patient: Ese Mendoza MR#: [id number] 8 : 1960 Acct:[id number] Age/Sex: 64 / F ADM Date: 02/25/25 Loc: HO.CT Attending Dr: Maranda Serna MD Ordering Physician: Maranda Serna MD Date of Service: 02/25/25 Procedure(s): CT chest wo IV con Accession Number(s): [id number] cc: Maranda Serna MD Report Number: [id number]: Total DLP = 183.00 mGy-cm EXAMINATION: CT [...] reconstruction technique DLP: 183 mGy centimeter. FINDINGS: RN NEW GRAD: Large body habitus. Vascular clips right upper [...] 02/25/25 1155 DD/ 1115 TD/TT: 02/25/25 1124 Professor Of Biology: Procedure Note Donotuseinterpreter, Image - 02/25/[address] [place] [address] [address] Scan Report Signed Patient: Ese MendozaMR#: [id number] 8 : 1960Acct:[id number] Age/Sex: 64 / FADM Date: 02/25/25 Loc: HO.CT Attending Dr: Maranda Serna MD Ordering Physician: Maranda Serna MD Date of Service: 02/25/25 Procedure(s): CT chest wo IV con Accession Number(s): [id number] cc: Maranda Serna MD Report Number: [id number]: Total DLP = 183.00 mGy-cm EXAMINATION: CT [...] reconstruction technique DLP: 183 mGy centimeter. FINDINGS: RN NEW GRAD: Large body habitus. Vascular clips right upper [...] 02/25/25 1155 DD/ 1115 TD/TT: 02/25/25 1124 Professor Of Biology: Maranda Serna MD [facility] [place]ED[place] Edited Result - Final documented in this encounter Visit Diagnoses Diagnosis Pulmonary nodule- Primary Other diseases of lung, not elsewhere classified documented in this encounter Additional Health Concerns Assessment Noted Time PHQ-9 Depression Total Score: 0 01/18/20 25 1:12 PM EDT documented as of this encounter Care Teams Plater Printed Circuit Board Panels Relationship Specialty Start Date End Date Maranda Serna MD [address] [place] [address] PCP - General Family Medicine 08/01/21 documented as of this encounter
--- OUTSIDE RECORDS SUMMARY | 2025-10-19 22:46 | XMS_ITS | Encounter Summary ---
Author Organization [employer] Address 75 [facility] 7t [place] [address] Care Team Providers Care Cement Conveyor Operator Name Role Phone Maranda Serna MD Primary Care Provider [phone] Encounter Details Date Type Department Care Team (Late st Contact Info) Description 04/22/2023 Orders Only [facility] MEDICINE [address] [place], [place] [phone] Maranda Serna MD [address] [place] [address] Left foot pain (Primary Dx); Type 2 diabetes mellitus with hyperglycemia, with long-term current use of insulin ([facility]) Social History Tobacco Use Types Packs/Day Years [...] Description 11/08/2025 3:15 PM EST Office Visit [facility] MEDICINE [address] [place] [address] Maranda Serna MD [address] [place] [address] documented as of this encounter Visit Diagnoses Diagnosis Left foot pain- Primary Pain in soft tissues of limb Type 2 diabetes mellitus with hyperglycemia, with long-term current use of insulin (HCC) documented in this encounter Additional Health Concerns Assessment Noted Time PHQ-9 Depression Total Score: 6 10/23/20 22 10:04 AM EST documented as of this encounter Care Teams Cement Conveyor Operator Relationship Specialty Start Date End Date Maranda Serna MD [address] [place] [address] PCP - General Family Medicine 08/01/21 documented as of this encounter
--- OUTSIDE RECORDS SUMMARY | 2025-10-19 22:46 | XMS_ITS | Data Portability ---
Author Organization [place] [facility], [facility] Address 100 [facility] 100 [place] [address] Care Team Providers Care Feedmobile Driver Name Role Phone PINA PLATA Primary Care Provider Assessment No assessment recorded. Plan of Treatment Reminders Order Date Submit Date Provider Last Modified By Organization Details Last Modified Time Details Appointments None recorded. Lab None recorded. Referral None recorded. Procedures None recorded. Surgeries None recorded. Imaging CT, neck, soft tissue, w/ contrast - evaluate lingual tonsil hyperophy 2023 024 [facility] Radiology, [address] [place] [address], [address], 4 12:06:24 [place], modified barium swallow study [address] [facility] Radiology, [address] [place] [address], [address], 4 15:47:26 Medication Orders None recorded. Patient TargetsNo targets recorded. Patient InstructionsNo instructions recorded. Reason for Referral None Reported. Results Created Date Observation Date Name Description Value Unit Range Abnormal Flag Note LastModifiedBy Organization Detail LastModifiedTime 07/29/20 24 07/29/2024 [place], modif ied izaiah mccabe ow study No observ ation record ed. reppsteiner [facility] 100 [facility] 100, [place], [address], 08/02/2024 14:43:11 09/28/20 24 09/25/2024 MRI, head + neck + orbit s, w/wo contr ast [facility] Access ion Number : [id number] Patiyee t Name: Ese Mendoza Record Number : [id number] Date of : 1959 Date of Exam: 2023 Referr daniel scalesn: Vineet nicholas, Genaro [facility] [place] [address] [place] [address] Exam: MR Orbits , Face, Neck (C-/C+ ) CPT 16222 Room Descri ption: [place] GE Pion 3T MRI of the soft [...] Electr onical ly Signed By: Vikram mike [facility] [address] [place], [address], 10/01/2024 16:52:47 Result Notes Documentation Provider Name and Address Organization Details Recorded Time Mri, Head + Neck + Orbits, W/wo Contrast : [facility] Accession Number: [id number] Patient Name: Ese Mendoza Date of : 1960 Date of Exam: 09-25-2024 Referring Physician: Genaro Pelaez [facility] [address] [address] Exam: MR Orbits, Face, Neck (C-/C+) CPT 73492 Room Description: [facility] 3T MRI of the soft tissues [...] quesada [place] - [facility] 10/01/2024 16:52:47 Problems Name Problem SNOMED Code Status Onset Date Resolution Date Notes Provider Name and Address Organization Details Recorded Time Oropharyngeal dysphagia 66449333 Active 2023 GENARO Barrett MD [address] [place] [address], [phone] [facility] [place] - [facility] 08/22/202 4 11:54:48 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 Procedures Surgical History Date Name Laterality Status Provider Name and Address Organization Details Recorded Time 07/01/2024 FFL_RE completed GENARO PELAEZ MD [address] [place] [address], [place], [address], [facility] 07/01/2024 12:01:28 Imaging Results None recorded. Procedure Notes None recorded. Medical Equipment None Reported. Allergies Allergen ID Allergen Name Allergen Category Reaction Reaction Severity Criticality Documentation Date Start Date Code Code System Note Provider Name and Address Organization Details Recorded Time 703596 rubber, unspecifi ed environme nt,medica tion Not available Not available Not available 07/01/2024 Ashu quesada [place] [facility] 4 11:45:16 367841 pork allergeni c extract food,medi cation Not available Not available Not available 07/01/2024 25125 8 RxNorm Ashu quesada [place] [facility] 4 11:45:41 Medications Name Sig Start Date [...] Available Not Available No t Available FreeStyle Natoma Lite kit USE DIRECTED TO TEST BLOOD [...] Available No t Available FreeStyle Doug 2 Wildrose USE DIRECTED active Not Available Not Available No t Available Vitals Date Recorded Body height Body mass index (BMI) Body weight Provider Name and Address Organization Details Last Updated DateTime 05/17/2025 157.48 cm 38.4 kg/m2 02113.4 g Shelly Ontiveros [place] - [facility] 05/17/2025 15:55:10 Date Recorded Body height Body mass index (BMI) Body weight Provider Name and Address Organization Details Last Updated DateTime 07/01/2024 157.48 cm 38.4 kg/m2 60896.4 g Ashu Gutiérrez [place] - [facility] 07/01/2024 11:54:39 Social History None recorded. Functional Status None recorded. Mental Status None recorded. Family History Nothing Reported. Medical History No medical history recorded. Gynecological HistoryNo gynecological history recorded. Obstetrics History GPAL:G 0 P 0 0 0 0 Past Encounters Encounter ID Performer Location Encounter Start Date Encounter Closed Date Diagnosis/Indication Diagnosis SNOMED-CT Code Diagnosis ICD10 Code Diagnosis IMO Codes Diagnosis Note [id number] GENARO PELAEZ MD [facility] [address] [address] 07/01/2024 11:04:43 07/01/2024 12:01:09 Oropharyngeal dysphagia 59410372 R13.12 I recommend an MBS to better evaluate. 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 I will evaluate with a contrasted CT to make sure there are no tumors. Dysphagia 72219043 R13.1 0 see above [id number] GENARO PELAEZ MD [facility] [address] [address] 05/17/2025 15:47:39 05/17/2025 16:14:42 Oropharyngeal dysphagia 88971957 R13.12 I recommend an MBS to better evaluate. Benign joy plasm of oropharynx 47334772 D10.5 I personally reviewed her MRI which was negative. I gave reassuranc e. She may f/u as needed. Dysphagia 37371269 R13.1 0 recommend f/u with GI. Health Concerns Section Related Observation LastModified by Organization Detai ls LastModified Time None Recorded Concern Status LastModified by Organization Details LastModified Time None Recorded Advance Directives Directive None Recorded Payers Insurance Date Sequence Insurance Name Policy Number Policy Singer Covered Member ID Singer Member ID Guarantor Name 05/17/2025 1 [place] [facility] Ese N Reji [id number] Ese Reji 05/17/2025 1 [place] [facility] (MEDICAID) Ese Reji [id number] Ese Reji Notes Date Note Type Note [...] Takes omeprazole for GERD. GENARO PELAEZ MD [address] [place] [address], [address], [place] - [facility] 07/01/2024 12:04:21 05/17/2025 text/html ROS as noted in the HPI She has trouble swallowing large pills. It can occur with food as well. MBS was reassuring. MRI of neck was negative for tumors. She has pending visit with GI. thyroid nodule was seen and no f/u was recommend based on radiologic criteria. Takes omeprazole for GERD. GENARO PELAEZ MD [address] [place] [address],[address], [address], [facility] - [facility] 05/17/2025 16:09:10 OBGyn Episode No OBEpisode recorded.
--- OUTSIDE RECORDS SUMMARY | 2025-10-19 22:46 | XMS_ITS | Clinical Summary ---
Author Organization [facility] Address [address] [place] [address] Phone Care Team Providers Care Director Of Labor Relations Name Role Phone Machelle Swann MD Primary Care Provider [phone] Allergies Active Allergy Reactions Criticality Noted Date [...] 42 mcg (0.06 %) nasal spray 1 Buckeye by Nasal route. 09/24/20 Active omega-3 acid [...] osteoarthritis; plantar fasciitis - referred to a doctor of radiology; waiting for an appt - check the [...] hyperkalemia and cough -Currently prescribed Dapagliflozin from net developer with [facility] -Follow up in 3-6 mo, sooner if [...] & Plan: - followed by [facility] - no anatomical pancreatic abnormality on MRI in Dec 2022 - continue vegan / plant-based pancreatic enzyme Right knee pain 12/16/2022 Allergic rhinitis 10/12/2022 Anemia 10/12/2022 Overview (08/25/2024): Last Assessment & Plan: - likely due to chronic diseaes - Hx iron infusion - 12/24/22 Hgb 11.7, Hematocrit 35.7 Chronic idiopathic constipation 10/12/2022 Overview (08/25/2024): Last Assessment & Plan: -Followed by [facility], last seen 08/06/22 -EGD and Colonoscopy on 12/24/21; showed Tubular Adenoma, she was recommended to repeat in 3 years. - pt has been using castor oil - continue trying fiber-rich diet and increasing physical activity as tolerated. - continue Senakot as prescribed Chronic kidney disease, stage III (moderate) 01/2022 Overview (08/25/2024): Last Assessment & Plan: - Garde Manager, Dr. 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 Tsai is prescribing Dapagliflozin (Farxiga) - Previously on Lisinopril, but was disccontinued due to cough / K - Avoid nephrotoxic drugs - Renal dose meds Gastroesophageal reflux disease 10/12/2022 Overview (08/25/2024): Last Assessment & Plan: -s/p EGD 12/24/21 -followed by [facility] -continue omeprazole 40mg daily -previously tried pantoprazole and lansoprazole; pt prefers omeprazole. -previously prescribed famotidine. Max dose for her renal function is 20 mg daily. Pt does not take it regularly. Irritable bowel syndrome 10/12/2022 Overview (08/25/2024): Last Assessment & Plan: - followed by [facility] - continue current treatment plan per [...] arterial hypertension 11/19/2018 Ulcer of foot 07/19/2011 Encounters Date Type Department Care Team Description 08/18/2025 3:00 PM EDT Office Visit Orthopedic Surgery - [address] [address] Damien Centeno, VENESSA Controlled type 2 diabetes mellitus with diabetic polyneuropathy, without long-term current use of insulin ([facility] V24, [facility] V28) (Primary Dx); Pain in [...] PM EST Office Visit Orthopedic Surgery - [place] [address] [phone] Damien Centeno, DPSherley 175 [facility] Robbie [address] [place] [address] Health Maintenance Due Date Last Done Comments [...] Test (12/30/2023) Annual BMP Blood Test Abstracted [facility] Provider HEALTH MAINTENANCE Final Result * Hemoglobin A1c (12/30/2023) Pathologist [facility] Hemoglobin A1C 0.0 % Comment:no interpretation Blood Venous blood specimen / Unknown Result [facility] Provider LAB BLOOD ORDERABLES Machelle l Result * Lipid panel (12/30/2023) Pathologist [facility] Triglycerides 0 mg/dL Comment:no interpretation Cholesterol 0 mg/dL Comment:no interpretation HDL 0 mg/dL Comment:no interpretation LDL Cholesterol 0 mg/dL Comment:no interpretation Blood Venous blood specimen / Unknown Result [facility] Provider LAB BLOOD ORDERABLES Machelle l Result * Urine Albumin Creatinine Ratio (07/24/2022) Pathologist [facility] Urine Albumin Creatinine Ratio Abstracted [facility] Provider HEALTH MAINTENANCE Final Result from Last 3 Months or Most Recently Relevant to Health Maintenance Insurance MEDICAID - [place] Care Teams Director Of Labor Relations Relationship Specialty Start Date End Date Machelle Swann MD [address] [place] [address] [place] [address] PCP - General 10/15/12
--- OUTSIDE RECORDS SUMMARY | 2025-10-19 22:46 | XMS_ITS | Clinical Summary ---
Author Organization [facility] Address [address] [place] [address] Care Team Providers Care Wafer Polishing Lead Worker Name Role Phone Viet Sánchez Unavailable [phone] Viet Sánchez Primary Care Provider [phone] Allergies Active Allergy Reactions Criticality Noted Date [...] Active Problems Problem Noted Date Diagnosed Date long-term current use of insulin 11/22/2019 Diabetic peripheral [...] this topic Medical Devices Implanted Type Area Ditching Machine Operating Engineer Device Identifier Shelf Expiration Date Model / Serial / Lot [id number] Lens Iol 0 D +21.5 Brianda Mod L Bcnvx 13mm 6mm Posterior - [id number] Implanted:Qty: 1 on 01/27/2020 by Obinna Lorenzana MD at [facility] [place] Lens [employer] [id number] / [id number] / Procedures Procedure Name Priority Date/Time Associated [...] 12:01 PM 01/27/2020 12:06 PM Care Teams Wafer Polishing Lead Worker Relationship Specialty Start Date End Date Viet Sánchez PA [address] [place] [address] PCP - General 06/18/18 Viet Sánchez PA [address] [place] [address] 06/18/18
--- OUTSIDE RECORDS SUMMARY | 2025-10-19 22:46 | XMS_ITS | Encounter Summary ---
Author Organization [employer] Address [address] [facility] [address] [place] [address] Care Team Providers Care Utility Tender Carding Name Role Phone Maranda Serna MD Primary Care Provider [phone] Encounter Details Date Type Department Care Team ([facility] st Contact Info) Description 10/03/2025 Results Follow-Up [facility] [address] [place] [address] Maranda Serna MD [address] [place] [address] Glucose, Whole Blood, Hematoxylin and Eosin Stain [...] Description 11/08/2025 3:15 PM EST Office Visit [facility] [address] [place] [address] Maranda Serna MD [address] [place] [address] documented as of this encounter Goals Goal [...] documented as of this encounter Care Teams Utility Tender Carding Relationship Specialty Start Date End Date Maranda Serna MD [address] [place] [address] PCP - General Family Medicine 08/01/21 documented as of this encounter
--- OUTSIDE RECORDS SUMMARY | 2025-10-19 22:46 | XMS_ITS | Encounter Summary ---
Author Organization [employer] Address [address] [facility] [address] [place] [address] Care Team Providers Care Gallery Manager Name Role Phone Maranda Serna MD Primary Care Provider [phone] Encounter Details Date Type Department Care Team ([facility] st Contact Info) Description 01/13/2025 Orders Only [facility] [address] [place], [place] [phone] Maranda Serna MD [address] [place], [place] [phone] Pulmonary nodule (Primary Dx) Social History Tobacco [...] Description 11/08/2025 3:15 PM EST Office Visit [facility] [address] [place] [id number] Maranda Serna MD [address] [place] [phone] documented as of this encounter Visit Diagnoses Diagnosis Pulmonary nodule- Primary Other diseases of lung, not elsewhere classified documented in this encounter Additional Health Concerns Assessment Noted Time PHQ-9 Depression Total Score: 6 10/23/20 22 10:04 AM EST documented as of this encounter Care Teams Gallery Manager Relationship Specialty Start Date End Date Maranda Serna MD [address] [place] [id number] PCP - General Family Medicine 08/01/21 documented as of this encounter
--- OUTSIDE RECORDS SUMMARY | 2025-10-19 22:46 | XMS_ITS | Encounter Summary ---
Author Organization [facility] Address [address] [place] [address] Care Team Providers Care Health Plan Specialist Name Role Phone Viet Sánchez Unavailable [phone] Viet Sánchez Primary Care Provider Encounter Details Date Type Department Care Team (Late st Contact Info) Description 02/18/2020 Scanned Document [facility] [address] [place] [address] [phone] Provider, Sheryl, [address] [place] [address] Social History Tobacco Use Types Packs/Day Years [...] filedocumented in this encounter Care Teams Health Plan Specialist Relationship Specialty Start Date End Date Viet Sánchez PA [address] [place] [address] PCP - General 06/18/18 Viet Sánchez PA [address] [place] [address] 06/18/18 documented as of this encounter
--- OUTSIDE RECORDS SUMMARY | 2025-10-19 22:46 | XMS_ITS | Clinical Summary ---
Author Organization [employer] Address [address] [facility] 7[address] [place] [address] Care Team Providers Care Basic Acoustic Analyst Name Role Phone Maranda Serna MD Primary Care Provider [phone] Allergies Active Allergy Reactions Criticality Noted Date [...] 30 mL 2 Active Easy Touch Pen Guide Rock 31G X 8 MM miscIndication s:Type 2 [...] hyperglycemia, with long-term current use of insulin ([facility]) TEST BLOOD SUGAR THREE TIMES DAILY [...] hyperglycemia, with long-term current use of insulin ([facility]) OneTouch brand. TEST BLOOD SUGAR THREE TIMES DAILY 100 each 025 2025 Active glucose blood (FREESTYLE LITE) test stripIndicatio ns:Type 2 diabetes mellitus with stage 3b chronic kidney disease, with long-term current use of insulin ([facility]) USE TO TEST BLOOD SUGAR THREE TIMES A DAY 100 each Active Blood Glucose Monitoring Suppl (FreeStyle Lite) w/Device kitIndications :Type 2 diabetes mellitus with stage 3b chronic kidney disease, with long-term current use of insulin ([facility]) 1 Dose by Other route 3 times daily. USE TO TEST BLOOD SUGAR THREE TIMES A DAY 1 kit Active TRUEplus Lancets 33G miscIndication s:Type 2 diabetes mellitus with stage 3b chronic kidney disease, with long-term current use of insulin ([facility]) USE TO TEST BLOOD SUGAR THREE [...] 025 Active Blood Glucose Monitoring Suppl (FreeStyle Upson) kit Check blood glucose 3 times daily [...] Assessment & Plan (07/20/2025 2:46 PM EDT): -Jawbone Pull[place] [facility] last seen in May 2025 -11/30/2024- Cardiac catheterization showed oaoo-fo-hagwuvxs distal LAD disease with severe distal stenosis [...] Assessment & Plan (04/12/2025 1:39 PM EDT): -Jawbone Puller[place] [facility] last seen in Dec 2024 -11/30/2024- Cardiac catheterization showed vals-fe-gxiviehw distal LAD disease with severe distal stenosis [...] Assessment & Plan (01/21/2025 12:33 PM EDT): -Jawbone Puller[place] [facility] last seen in Dec 2024 -11/30/2024- Cardiac catheterization showed hlop-va-pcmctdob distal LAD disease with severe distal stenosis [...] and supportive care - follow up with brand analyst as scheduled Assessment & Plan (07/23/2024 [...] Plan (01/17/2025 11:35 AM EDT): - seeing brand analyst - continue judicious use of gabapentin 100 mg tid - she wants to switch to tablet. Only tablets available are 600 and 800 mg tablet - will have her take 1/4 of 600 mg tablet and take bid; or will check with pharmacist if she can open the capsule and take inside content Assessment & Plan (07/23/2024 5:36 AM EDT): - seeing brand analyst - continue judicious use of gabapentin 100 mg tid - she wants to switch to tablet. Only tablets available are 600 and 800 mg tablet - will have her take 1/4 of 600 mg tablet and take bid; or will check with pharmacist if she can open the capsule and take inside content Assessment & Plan (01/04/2024 3:36 PM EST): - seeing brand analyst - continue judicious use of gabapentin Assessment & Plan (10/03/2023 9:48 AM EST): - seeing brand analyst - waiting for diabetic orthotics Adjustment [...] hyperkalemia and cough -Currently prescribed Dapagliflozin from marketing technologist Assessment & Plan (04/22/2025 3:19 PM EDT): -Goal BP < 130/80 per ACC/AHA guideline -BP at goal today -Continue working on lifestyle modifications -Recommended self-monitoring BP. -Pt has tried lisinopril for renal protection, not for HTN, in the past, but it was discontinued due to hyperkalemia and cough -Currently prescribed Dapagliflozin from marketing technologist Assessment & Plan (07/20/2024 1:50 PM EDT): -Goal BP < 140/90 per JNC-8 and < 130/80 per ACC/AHA guideline (Treatment threshold >= 140/90 ) -BP at goal today -Continue working on lifestyle modifications -Recommended self-monitoring BP. -Pt has tried lisinopril for renal protection, not for HTN, in the past, but it was discontinued due to hyperkalemia and cough -Currently prescribed Dapagliflozin from marketing technologist -Follow up in 3-6 mo, sooner if [...] hyperkalemia and cough -Currently prescribed Dapagliflozin from marketing technologist -Follow up in 3-6 mo, sooner if [...] neuropathy; osteoarthritis; plantar fasciitis - Following with brand analyst Assessment & Plan (06/07/2023 3:44 PM EDT): - left foot worse than right - multifactorial: Diabetic peripheral neuropathy; osteoarthritis; plantar fasciitis - referred to a brand analyst; waiting for an appt - check [...] want to try any GLP-1 agonist. -Patient Funeral Pre Arrangement Counselor prescribed Farxiga. Patient is taking this medication [...] want to try any GLP-1 agonist. -Patient Funeral Pre Arrangement Counselor prescribed Farxiga. Patient is no longer taking [...] (01/04/2024 3:42 PM EST): - followed by [facility] - no anatomical pancreatic abnormality on MRI in Dec 2022 - continue vegan / plant-based pancreatic enzyme Assessment & Plan (10/03/2023 9:49 AM EST): - followed by [facility] - no anatomical pancreatic abnormality on MRI in Dec 2022 - continue vegan / plant-based pancreatic enzyme Assessment & Plan (06/07/2023 3:30 PM EDT): - followed by [facility] - no anatomical pancreatic abnormality on MRI in Dec 2022 - continue vegan / plant-based pancreatic enzyme Assessment & Plan (02/24/2023 5:30 AM EDT): - followed by [facility] - no anatomical pancreatic abnormality on MRI in Dec 2022 - continue vegan / plant-based pancreatic enzyme Assessment & Plan (12/18/2022 6:12 PM EST): - followed by [facility] - continue vegan pancreatic enzyme Allergic [...] Plan (07/20/2025 2:53 PM EDT): -Followed by [facility], last seen 01/03/25 -EGD and Colonoscopy on 12/24/21; showed Tubular Adenoma, she was recommended to repeat in 3 years. - pt has been using castor oil - continue trying fiber-rich diet and increasing physical activity as tolerated. - continue Senakot as prescribed - Being scheduled for EGD and colonoscopy in near future. Preop is already done by electronic plotting system operator. Patient was advised to return to hold the clopidogrel 5 days prior to procedure Assessment & Plan (01/21/2025 12:33 PM EDT): -Followed by [facility], last seen 01/03/25 -EGD and Colonoscopy on 12/24/21; showed Tubular Adenoma, she was recommended to repeat in 3 years. - pt has been using castor oil - continue trying fiber-rich diet and increasing physical activity as tolerated. - continue Senakot as prescribed Assessment & Plan (07/20/2024 1:50 PM EDT): -Followed by [facility], last seen 08/06/22 -EGD and Colonoscopy on 12/24/21; showed Tubular Adenoma, she was recommended to repeat in 3 years. - pt has been using castor oil - continue trying fiber-rich diet and increasing physical activity as tolerated. - continue Senakot as prescribed Assessment & Plan (01/04/2024 3:38 PM EST): -Followed by [facility], last seen 08/06/22 -EGD and Colonoscopy on 12/24/21; showed Tubular Adenoma, she was recommended to repeat in 3 years. - pt has been using castor oil - continue trying fiber-rich diet and increasing physical activity as tolerated. - continue Senakot as prescribed Assessment & Plan (06/07/2023 3:33 PM EDT): -Followed by [facility], last seen 08/06/22 -EGD and Colonoscopy on 12/24/21; showed Tubular Adenoma, she was recommended to repeat in 3 years. - pt has been using castor oil - continue trying fiber-rich diet and increasing physical activity as tolerated. - continue Senakot as prescribed Assessment & Plan (12/18/2022 6:26 PM EST): -[place] [facility] [...] & Plan (07/11/2025 11:30 AM EDT): - Funeral Pre Arrangement Counselor, Dr. Marci Hylton. Last seen on 01/25/25 - Metformin is discontinued, Dr. Tsai started her on Dapagliflozin (Farxiga) - Previously on Lisinopril, but was disccontinued due to cough / K - Avoid nephrotoxic drugs, including NSAID (no more Aleve) - Renal dose meds Assessment & Plan (04/12/2025 1:40 PM EDT): - Funeral Pre Arrangement Counselor, Dr. Marci Hylton. Last seen on 01/25/25 - Metformin is discontinued, Dr. Tsai started her on Dapagliflozin (Farxiga) - Previously on Lisinopril, but was disccontinued due to cough / K - Avoid nephrotoxic drugs, including NSAID (no more Aleve) - Renal dose meds Assessment & Plan (01/21/2025 12:32 PM EDT): - Funeral Pre Arrangement Counselor, Dr. Marci Hylton. Last seen on 01/25/25 - Metformin is discontinued, Dr. Tsai started her on Dapagliflozin (Farxiga) - Previously on Lisinopril, but was disccontinued due to cough / K - Avoid nephrotoxic drugs, including NSAID (no more Aleve) - Renal dose meds Assessment & Plan (07/23/2024 5:41 AM EDT): - Funeral Pre Arrangement Counselor, Dr. Marci Hylton. - Metformin is discontinued, Dr. Tsai started bryn ib Dapagliflozin (Farxiga) - Previously on Lisinopril, but was disccontinued due to cough / K - Avoid nephrotoxic drugs, including NSAID (no more Aleve) - Renal dose meds Assessment & Plan (01/04/2024 3:45 PM EST): - Funeral Pre Arrangement Counselor, Dr. 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 Tsai is prescribing Dapagliflozin (Farxiga) - Previously on Lisinopril, but was disccontinued due to cough / K - Avoid nephrotoxic drugs - Renal dose meds Assessment & Plan (10/03/2023 9:41 AM EST): - Funeral Pre Arrangement Counselor, Dr. 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 Tsai rx Farxiga for DM management - Previously on Lisinopril, but was disccontinued due to cough / K - Avoid nephrotoxic drugs - Renal dose meds - Pt was advised that atorvastatin is not nephrotoxic and it will lower her ASCVD risk. Pt continues to decline statin therapy. Assessment & Plan (06/07/2023 3:34 PM EDT): - Funeral Pre Arrangement Counselor, Dr. 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 [...] & Plan (02/24/2023 5:37 AM EDT): - Funeral Pre Arrangement Counselor, Dr. Tsai - Lab: 12/24/22 BUN 28, [...] & Plan (12/18/2022 6:31 PM EST): - Funeral Pre Arrangement Counselor, Dr. 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 [...] PM EDT): -s/p EGD 12/24/21 -followed by [facility] - Patient has been taking omeprazole tablets, but recently it was switched to capsule. Patient is unable to take capsule because it contains porcine product. -since patient is on clopidogrel, changed to pantoprazole tablet. - Being scheduled for EGD Assessment & Plan (04/22/2025 3:36 PM EDT): -s/p EGD 12/24/21 -followed by [facility] -refill famotidine as requested. Patient takes prn. -since patient is on clopidogrel, will check whether patient is taking omeprazole or pantoprazole. Assessment & Plan (01/04/2024 3:42 PM EST): -s/p EGD 12/24/21 -followed by [facility] -continue omeprazole 40mg daily -previously tried pantoprazole and lansoprazole; pt prefers omeprazole. -previously prescribed famotidine. Max dose for her renal function is 20 mg daily. Pt does not take it regularly. Assessment & Plan (10/03/2023 9:50 AM EST): -s/p EGD 12/24/21 -followed by [facility] -continue omeprazole 40mg daily -previously tried pantoprazole and lansoprazole; pt prefers omeprazole. -previously prescribed famotidine. Max dose for her renal function is 20 mg daily. Pt does not take it regularly. Assessment & Plan (06/07/2023 3:33 PM EDT): -s/p EGD 12/24/21 -followed by [facility] -continue omeprazole 40mg daily -previously tried pantoprazole and lansoprazole; pt prefers omeprazole. -previously prescribed famotidine. Max dose for her renal function is 20 mg daily. Pt does not take it regularly. Assessment & Plan (12/18/2022 6:28 PM EST): -s/p EGD 12/24/21 -followed by [facility] -continue prantoprazol 40mg daily -previously prescribed famotidine. Max dose for her renal function is 20 mg daily. Irritable bowel syndrome 10/12/2022 Assessment & Plan (07/20/2025 2:50 PM EDT): - followed by [facility] - continue current treatment plan per GI - low FODMAP diet - pt is prescribed simethicone, Sennakot, citrucel, but does not like taking it regularly Assessment & Plan (07/20/2024 1:50 PM EDT): - followed by [facility] - continue current treatment plan per GI - low FODMAP diet - pt is prescribed simethicone, Sennakot, citrucel, but does not like taking it regularly Assessment & Plan (01/04/2024 3:42 PM EST): - followed by [facility] - continue current treatment plan per GI - low FODMAP diet - pt is prescribed simethicone, Sennakot, citrucel, but does not like taking it regularly Assessment & Plan (10/03/2023 9:49 AM EST): - followed by [facility] - continue current treatment plan per GI - low FODMAP diet - pt is prescribed simethicone, Sennakot, citrucel, but does not like taking it regularly Assessment & Plan (06/07/2023 3:32 PM EDT): - followed by [facility] - continue current treatment plan per GI - low FODMAP diet - pt is prescribed simethicone, Sennakot, citrucel, but does not like taking it regularly Assessment & Plan (12/18/2022 6:27 PM EST): - followed by [facility] Disliked Freestyle lite. Will switch to Freestyle Upson Treatment Hx -Pt has taken dulaglutide and [...] - Prescribed dapagliflozin (Farxiga) from PCP and marketing technologist, questionable adherence - Discussed about CGM, which she does not want to use it at this time Treatment Hx -Pt has taken GLP-1 agonists and had significant side effects, mainly GI. Pt states she does not want to try any GLP-1 agonist. -Patient Funeral Pre Arrangement Counselor prescribed Farxiga. Patient is taking this medication [...] - Prescribed dapagliflozin (Farxiga) from PCP and marketing technologist, questionable adherence - Discussed about CGM, which she does not want to use it at this time Treatment Hx -Pt has taken GLP-1 agonists and had significant side effects, mainly GI. Pt states she does not want to try any GLP-1 agonist. -Patient Funeral Pre Arrangement Counselor prescribed Farxiga. Patient is taking this medication [...] want to try any GLP-1 agonist. -Patient Funeral Pre Arrangement Counselor prescribed Farxiga. Patient is taking this medication [...] want to try any GLP-1 agonist. -Patient Funeral Pre Arrangement Counselor prescribed Farxiga. Patient is no longer taking [...] want to try any GLP-1 agonist. -Patient Funeral Pre Arrangement Counselor prescribed Farxiga. Patient is no longer taking [...] want to try any GLP-1 agonist. -Patient Funeral Pre Arrangement Counselor prescribed Farxiga. Patient is no longer taking [...] want to try any GLP-1 agonist. -Patient Funeral Pre Arrangement Counselor prescribed Farxiga. Patient is no longer taking [...] DEPARTMENT Provider, Generic External Data 10/03/2025 Abstract [facility] [address] [place] [address] Maranda Serna MD 10/03/2025 Results Follow-Up [address] [address] Maranda Serna MD Glucose, Whole Blood, Hematoxylin and Eosin Stain 09/29/2025 Orders Only GENERIC EXTERNAL DATA DEPARTMENT Provider, Generic External Data 09/28/[address] [address] Maranda Serna MD 08/17/2025 Orders Only GENERIC [...] 11/08/2025 3:15 PM EST Office Visit [facility] [address] [place] [address], [place] [phone] Maranda Serna MD [address] [place] [address] Health Maintenance Due Date Last Done Comments [...] with long-term current use of insulin ([facility]) BI MAMMOGRAM SCREENING TOMOSYNTHESIS BILATERAL Routine 05/16/2025 12:30 PM EDT Breast cancer screening by mammogram from Last 3 Months or Most Recently Relevant to Health Maintenance Results * (ABNORMAL) Glucose, Whole Blood (10/13/2025 1:03 PM EST) Only the most recent of2 resultswithin the time period is included. Glucose, Whole Blood 198(H) 60 - 115 mg/dL [facility] Comment:METER #: [id number] 0Testing performed in the Endocrinology Department [address] , [address], [facility]. 10/13/2025 1:03 PM EST 10/13/2025 1:08 PM EST us Generic External Data Provider LAB BLOOD ORDERAB LES Final Result [facility] [address] [place] [phone] * Hematoxylin and Eosin Stain (09/29/2025 12:27 PM EST) 09/29/2025 12:2 7 PM EST 09/29/2025 1:41 PM EST Narrative [facility] - 10/03/2025 1:51 PM EST ----- ------- Name: Ese Mendoza Age/Sex: 64/F : 1960 [id number]#: [id number] Attend Dr: Carline James MD Re09/29/25 Status: [facility] Location: [facility] Disch: ----- ------- SPEC : [id number] RECD: 09/29/25134 STATUS: EVELIO ORTIZ NUM: [id number] BREN: 09/29/25-[address] [facility] [address]: Carline James MD ENTERED: 09/29/25-2915 SP TYPE: Surgical OTHR DR: Maranda Serna [...] Name: Ese Mendoza Age/Sex: 64/F : 1960 [facility]#: [id number] Unit#: [id number] Attend Dr: Carline James MD Re09/29/25 Status: [facility] Location: [facility] Disch: ----- ------- SPEC : [id number] RECD: 09/29/25 STATUS: EVELIO ORTIZ NUM: [id number] BREN: 09/29/[address] [facility] [address]: Carline James MD ENTERED: 09/29/25 SP TYPE: Surgical OTHR DR: Maranda eSrna MD ORDERED: HE Stain/12, Gross Micro L4/4, [...] microscopic examination, 4 pieces in cassette D. ([facility]) Special studies ordered and performed: AB/PAS stains on A IHC S/NG Disclaimer NOTE: Unless otherwise stated, all tissue is formalin-fixed and paraffin-embedded. Some or all of the immunohistochemical tests reported herein may have been developed and their performance characteristics determined by [facility]. They have not been cleared or approved by the U.S. Food and Drug Administration (FDA). However, the FDA has determined that such clearance or approval is not necessary. This laboratory is certified under the Clinical Laboratory Improvement Amendments of 1988 (CLIA) as qualified to perform high complexity clinical laboratory testing. Copies To: Maranda Serna MD [address] [phone] Carline James MD [facility] [address] [place] [address] [phone] [email or web address] ----- ------- Signed (signature on file) Refugio Golden MD 10/03/25 1351 ----- ------- END OF REPORT Generic External Data Provider LAB BLOOD ORDERAB LES Final Result Performing Organization Address [facility] Co de Phone Number [facility] [address] [place] [phone] * (ABNORMAL) Glucose, Whole Blood (09/29/2025 11:43 AM EST) [facility] [address] Glucose, Whole Blood 153(H) 60 - 115 mg/dL [facility] Comment:METER #: [id number] 09/29/2025 11:4 3 AM EST 09/29/2025 11:47 AM EST Generic External Data Provider LAB BLOOD ORDERAB LES Final Result Performing Organization Address [facility]/ZIP Co de Phone Number [facility] [address] [place] [phone] * (ABNORMAL) Hm Colonoscopy (09/29/2025) Colonoscopy Abnormal(A ) Normal Historical Provider HEALTH MAINTENANCE Final Result * TSH with Reflex to Free T4 (07/22/2025 9:40 AM EDT) TSH reflex Free T4 3.28 0.32 - 4.0 uIU/mL [facility] 07/22/2025 9:40 AM EDT 07/22/2025 9:46 AM EDT us Generic External Data Provider LAB BLOOD ORDERAB LES Final Result Performing Organization Address City/State/[facility] Co de Phone Number [facility] [address] [place] [phone] * (ABNORMAL) CBC auto differential (07/22/2025 9:40 AM EDT) [facility] [address] White Blood Count 7.2 4.8 - 10.8 [...] ORDERAB LES Final Result Performing Organization Address City/[facility]/ZIP Co de Phone Number [facility] [address] [place] [phone] * Immunoglobulin E (07/22/2025 9:40 AM EDT) Pathologist [facility] Immunoglobulin E 3 <CA=147 kU/L [facility] Comment:THIS TEST WAS PERFOR MED AT:[facility] [place] [phone] CRONIN MD 07/22/2025 9:40 AM EDT 07/22/2025 9:46 AM EDT us Generic External Data Provider LAB BLOOD ORDERAB LES Final Result Performing Organization Address [facility]/ZIP Co de Phone Number [facility] [address] [place] [phone] * Lipid Panel, Standard (07/22/2025 9:40 AM EDT) Triglycerides 81 <150 mg/dL [facility] Comment:Desirable Triglyceri de: less [...] 190 mg/dL HDL Cholesterol 55 >40 mg/dL [facility] Comment:Desirable HDL: great er than 40 mg/dL Note: This HDL assay may give artificially low results in patients with liver disease. 07/22/2025 9:40 AM EDT 07/22/2025 9:46 AM EDT us Generic External Data Provider LAB BLOOD ORDERAB LES Final Result Performing Organization Address City/State/[facility] Co de Phone Number [facility] [address] [place] [phone] * (ABNORMAL) POCT HGB A1C (07/12/2025 3:25 PM EDT) Hemoglobin A1C 7.9(A) 4.0 - 5.7 % QC Media Lot # [id number] Lot# Expiration Date ,194,[id number] Blood 07/12/2025 3:25 PM EDT Maranda Serna MD POINT OF CARE TEST ENTER/EDIT OR DERABLES Final Result * BI Mammogram Screening Tomosynthesis Bilateral (05/16/2025 12:30 PM EDT) Anatomical Region Laterality Modality Breast Bilateral Mammography 05/16/2025 12:3 0 PM EDT [facility] 05/26/2025 7:54 PM EDT [facility] [address] [place], [place] [address] Mammography Report Signed with Howard Patient: Ese Mendoza MR#: [id number] 8 : 1960 Acct:[id number] Age/Sex: 64 / F ADM Date: 05/16/25 Loc: [place] Attending Dr: Maranda Serna MD Ordering Physician: Maranda Serna MD Results: 2Benign F indings Date of Service: 05/16/25 Follow Up: 1 Year From [facility] Mammogram Procedure(s): MM tomosynthesis screening BI Accession Number(s): [id number] cc: Maranda Serna MD ADDENDUM ADDENDUM #2 [...] PM EDT RP Addendum Dictated By: Julio Picakrd MD Addendum Signed By: <Electronically signed by [...] OV> 05/26/251950 DD/ 123 TD/TT: 05/16/25 1245 Public Health Program Manager: Procedure Note Donotuseinterpreter, Image - 07/19/2025 [facility] [address] [place] [address] Mammography Report Signed with Howard Patient: Ese MendozaMR#: [id number] 8 : 1960Acct:[id number] Age/Sex: 64 / FADM Date: 05/16/25 Loc: HO.MAMMO Attending Dr: Maranda Serna MD Ordering Physician: Maranda Serna MDResults: 2Benign F indings Date of Service: 05/16/25Follow Up: 1 Year From Orig ina Mammogram Procedure(s): MM tomosynthesis screening BI Accession Number(s): [id number] cc: Maranda Serna MD ADDENDUM ADDENDUM #2 [...] OV> 05/26/251950 DD/ 123 TD/TT: 05/16/25 1245 Public Health Program Manager: Maranda Serna MD IMG BI PROCEDURES [...] Patient has chronic kidney disease 10/03/2025 Insurance [facility] C3 Care Teams Basic Acoustic Analyst Relationship Specialty Start Date End Date Maranda Serna MD [address] [place] [address] PCP - General Family Medicine 08/01/21
--- OUTSIDE RECORDS SUMMARY | 2025-10-19 22:46 | XMS_ITS | Clinical Summary ---
Author Organization Formerly [facility] Address [address] [place] [address] Care Team Providers Care Immigration Patrol Inspector Name Role Phone Viet Sánchez Primary Care Provider [phone] Allergies Active Allergy Reactions Criticality Noted Date [...] lumbar spine. Will obtain interval history from medical record consultant Karlee Le. - RTC in 4 months [...] polyneuropathy, with long-term current use of insulin ([facility]) POCT HEMOGLOBIN, A1C Routine 02/09/2019 8:10 AM EDT Type 2 diabetes mellitus with diabetic polyneuropathy, with long-term current use of insulin ([facility]) HIV COMBO [...] [facility] [address] [place] [address], [place] [phone] * POCT hemoglobin, A1c (02/09/2019 8:10 AM EDT) POCT Hemoglobin A1C 9.2 4.4 - 6.4 % Blood specimen (specimen) 02/09/2019 8:10 AM EDT us Keke Katz IN HOME SALES REPRESENTATIVE POCT ORDERABLES NO CHARGE Machelle l Result [...] in human serum or plasma. The [employer] Photograph HIV Ag/Ab Combo assay is intended to [...] [facility]ALTH [facility] [address] [place] [address], [place] [phone] from Last 3 Months or Most Recently Relevant to Health Maintenance Insurance MEDICAID [place] D Care Teams Immigration Patrol Inspector Relationship Specialty Start Date End Date Viet Sánchez PA [address] [place] [address] PCP - General Family Medicine 07/22/18
--- OUTSIDE RECORDS SUMMARY | 2025-10-19 22:46 | XMS_ITS | Encounter Summary ---
Author Organization [facility] Address [address] [place] [address] Care Team Providers Care Reprint Sorter Name Role Phone Viet Sánchez Unavailable [phone] Viet Sánchez Primary Care Provider Encounter Details Date Type Department Care Team (Late st Contact Info) Description 11/09/2019 Prep for Surgery [facility] OPHTHALMOLOGY [address] [place] [address] Holland Hunt MD [address] [place] [address] Social History Tobacco Use Types Packs/Day Years [...] on filedocumented in this encounter Care Teams Reprint Sorter Relationship Specialty Start Date End Date Viet Sánchez PA [address] [place] [address] PCP - General 06/18/18 Viet Sánchez PA [address] [place] [address] 06/18/18 documented as of this encounter
--- OUTSIDE RECORDS SUMMARY | 2025-10-19 22:46 | XMS_ITS | Encounter Summary ---
Author Organization [facility] Address [address] [place] [address] Care Team Providers Care Cotton Classer Name Role Phone Viet Sánchez Unavailable [phone] Viet Sánchez Primary Care Provider [phone] Encounter Details Date Type Department Care Team (Late st Contact Info) Description 08/06/2018 Scanned Document [facility] Urologic Surgery [place] [address] [facility] [address] [place] [address] Provider, MD Sheryl [address] [place] [address] Social History Tobacco Use Types Packs/Day Years [...] on filedocumented in this encounter Care Teams Cotton Classer Relationship Specialty Start Date End Date Viet Sánchez PA [address] [place] [address] PCP - General 06/18/18 Viet Sánchez PA [address] [place] [address] 06/18/18 documented as of this encounter
--- OUTSIDE RECORDS SUMMARY | 2025-10-19 22:46 | XMS_ITS | Clinical Summary ---
Author Organization [facility] [employer] Prior to 04/09/25 Address [address] [place] [address] Care Team Providers Care Degreaser Name Role Phone Viet Sánchez Primary Care Provider [phone] Allergies Active Allergy Reactions Criticality Noted Date [...] age to complete this topic Care Teams Degreaser Relationship Specialty Start Date End Date Viet Sánchez [address] [place] [address] PCP - General Medical Services 06/19/18
--- OUTSIDE RECORDS SUMMARY | 2025-10-19 22:46 | XMS_ITS | Encounter Summary ---
Author Organization [facility] Address [address] [place] [address] Care Team Providers Care Aircraft Instrument Repairer Name Role Phone Viet Sánchez Unavailable [phone] Viet Sánchez Primary Care Provider [phone] Encounter Details Date Type Department Care Team (Late st Contact Info) Description 05/22/2020 Scanned Document [facility] [address] [phone] Deja Rico, [place] [address] Social History Tobacco Use Types Packs/Day Years [...] on filedocumented in this encounter Care Teams Aircraft Instrument Repairer Relationship Specialty Start Date End Date Viet Sánchez PA [address] [place] [address] PCP - General 06/18/18 Viet Sánchez PA [address] [place] [address] 06/18/18 documented as of this encounter
--- OUTSIDE RECORDS SUMMARY | 2025-10-19 22:47 | XMS_ITS | Patient Health Record ---
Author Organization [employer] Address [address] [facility] [id number] [place] [address] Care Team Providers Care Tax Collection Coordinator Name Role Phone Larisa Saldana Primary Care [...] diabetes mellitus without complications (E11.9) Active confirmed 658758695 Problem Type 2 diabetes mellitus with diabetic polyneuropathy (E11.42) Active confirmed 44503136 Problem Other chronic pain (G89.29) Active confirmed 83460750 Problem Age-related nuclear cataract, bilateral (H25.13) Active confirmed Nuclear senile cataract (371166848) Problem Diabetes (E11.9) Active confirmed Type II diabetes mellitus without complication (439079508) Problem Dyslipidemia (E78.5) Active confirmed 091419649 Problem HTN (hypertension) (I10) Active confirmed Hypertension (57090365) Problem Arthritis (M19.90) Active confirmed 372 3001 Problem meterman current use of insulin (Z79.4) Active confirmed 828494752 Problem Controlled diabetes mellitus with diabetic neuropathy (E11.40) Active confirmed Diabetic peripheral neuropathy associated with type 2 diabetes mellitus (9933441788237) Problem Type 2 diabetes mellitus with mild nonproliferative diabetic retinopathy without macular edema, 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
--- OUTSIDE RECORDS SUMMARY | 2025-10-19 22:47 | XMS_ITS | Encounter Summary ---
Author Organization [employer] Address [address] [facility] 7[address] [place] [address] Care Team Providers Care Strategic Planner Name Role Phone Maranda Serna MD Primary Care Provider Reason for Visit * Reason Onset Date Comments Appointment Request 05/28/2024 Encounter Details Date Type Department Care Team ([facility] st Contact Info) Description 05/28/2024 Telephone [facility] [address] [place], [place] [phone] Maranda Serna MD [address] [place], [place] [phone] Appointment Request Social History Tobacco Use Types [...] 11/08/2025 3:15 PM EST Office Visit [facility] [address] [place] [address] Maranda Serna MD [address] [place] [address] documented as of this encounter Visit Diagnoses Not on filedocumented in this encounter Additional Health Concerns Assessment Noted Time PHQ-9 Depression Total Score: 6 10/23/20 22 10:04 AM EST documented as of this encounter Care Teams Strategic Planner Relationship Specialty Start Date End Date Maranda Serna MD [address] [place] [address] PCP - General Family Medicine 08/01/21 documented as of this encounter
--- OUTSIDE RECORDS SUMMARY | 2025-10-19 22:47 | XMS_ITS | Clinical Summary ---
Author Organization [facility] Address [address] [place] [phone] Phone Care Team Providers Care Warehouse Distribution Associate Name Role Phone Maranda Serna MD Primary Care Provider [phone] Allergies Active Allergy Reactions Criticality Noted Date [...] mouth 1 (one) time each day Active insulin lispro protamine-insul in lispro (HumaLOG [...] in the morning 90 tablet 3 5 07/21/20 26 Active pantoprazole (PROTONIX) 40 MG EC tablet Take 40 mg by mouth 1 (one) time each day before breakfast 0 07/12/20 26 Active Active Problems Problem Noted Date [...] Stenosis of bilateral carotid arteries 12/31/2018 07/22/2022 Pain of multiple joints 10/06/201807/11 Overview (10/01/2021): Last Assessment & Plan: - Based on her hx of psorasis, asymmetric polyarthritis, back pain, and arthralgias relieved by MTX favor this is psoriatic arthritis superimposed on osteoarthritis. 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 - Will obtain lab work. Also curious to see radiographic imaging of the hands, feets, SI and lumbar spine. Will obtain interval history from companion caregiver Karlee Le. - RTC in 4 months - she is to continue with mtx 4 tabs qweekly and folic acid Ulcer of foot 07/19/2011 07/22/2022 Encounters Date Type Department Care Team Description 07/26/2025 2:00 PM EDT Office Visit [facility] [address] [address] Marci Gleason ARNP Stage 3b chronic kidney disease (HCC) (Primary Dx); Anemia in chronic kidney disease; Proteinuria, not otherwise specified 07/21/2025 Refill [facility] [address] [address] Shasha Delacruz [place] Stage 3b chronic kidney disease (HCC); Proteinuria, not otherwise specified from Last 3 [...] pure alcohol) Intermittently Hot Amanda. Tea with Winston only if sick Comments Unknown Sex and Gender Information Value Date Recorded Sex Assigned at Not on file Legal Sex Female 5:18 PM EST Gender Identity Not on file Sexual Orientation Not on file Last Filed Vital Signs Vital Sign Reading Time Taken Comments Blood Pressure 120/70 07/26/2025 1:54 PM EDT Pulse 90 07/26/2025 1:54 PM EDT Temperature - - Respiratory Rate - - Oxygen Saturation 95% 01/13/2024 2:18 PM EST Inhaled Oxygen Concentration - - Weight 92.5 kg (204 lb) 07/26/2025 1:54 PM EDT Height 157.5 cm (5' 2 ) 09/16/2023 3:07 PM EST Body Mass Index 37.31 09/16/2023 3:07 PM EST Plan of Treatment Upcoming Encounters Date Type Department Care Team (Late st Contact Info) Description 01/25/2026 1:00 PM EDT Office Visit [facility] [address] [address] Marci Gleason ARNP [address] [address] Health Maintenance Due Date Last Done Comments Breast Cancer Screening 1960 Colorectal Cancer Screening: Annual FOBT 2009 Colorectal Cancer Screening: Colonoscopy 2009 Colorectal Cancer Screening: Sigmoidoscopy 2009 Diabetes: Ophthalmology Exam 08/24/2021 Diabetes: Pedal Pulse Checked 08/24/2021 Diabetes: Sensory Foot Exam 08/24/2021 Diabetes: Visual Foot Exam 08/24/2021 Influenza Vaccine (#1) 2025 4, 09/23/2023, 09/24/2021, Additional history exists Diabetes: Hemoglobin A1C 10/11/2025 025, 04/12/2025, 01/17/2025, Additional history exists Hepatitis B Vaccine Aged Out 09/23/2023, 12/16/2022, 07/08/2022 No longer eligible based on patient's age to complete this topic Pneumococcal Vaccine: 50+ Years Completed 09/23/2023, 01/01/2021 Pneumococcal Vaccine: Peds (0 to 5 Years) and At-Risk Patients (6 to 49 Years) Discontinued 09/23/2023, 01/01/2021 Procedures Procedure Name Priority Date/Time Associated Diagnosis Comments EXT RESULT ENTRY Routine 07/22/2025 from Last 3 Months Results * (ABNORMAL) EXT RESULT ENTRY (07/22/2025) Hemoglobin 11.5(A) 12.0 - 16.0 Hematocrit 37.7 36.0 - 46.0 Platelets 266 150 - 399 10*3/UL 07/22/2025 us Historical Provider LAB BLOOD ORDERABLES Machelle l Result from Last 3 Months Insurance [place] Care Teams Warehouse Distribution Associate Relationship Specialty Start Date End Date Maranda Serna MD [address] [place] [address] PCP - General Family Medicine 08/24/21
--- OUTSIDE RECORDS SUMMARY | 2025-10-19 22:47 | XMS_ITS | Encounter Summary ---
Author Organization [employer] Address [address] [facility] 7[address] [place] [address] Care Team Providers Care Pulp Maker Name Role Phone Maranda Serna MD Primary Care Provider [phone] Reason for Visit * Reason Onset Date Comments Durable Medical Equipment 05/26/2024 Encounter Details Date Type Department Care Team ([facility] st Contact Info) Description 05/26/[address] [facility] [address] [place], [place] [phone] Maranda Serna MD [address] [place], [place] [phone] Durable Medical Equipment Social History Tobacco Use [...] walker. Pt stated she was advised by dental technician apprentice [email or web address] up with orthopedic and they prescribed a walker for the pt. Pt wants script send over to [facility] [address] If any questions you can contact pt at [phone]. documented in this encounter Plan of Treatment Upcoming Encounters Date Type Department Care Team ([facility] st Contact Info) Description 11/08/2025 3:15 PM EST Office Visit [facility] [address] [place] [address] Maranda Serna MD [address] [place] [address] documented as of this encounter Visit Diagnoses Not on filedocumented in this encounter Additional Health Concerns Assessment Noted Time PHQ-9 Depression Total Score: 6 10/23/20 22 10:04 AM EST documented as of this encounter Care Teams Pulp Maker Relationship Specialty Start Date End Date Maranda Serna MD [address] [place] [address] PCP - General Family Medicine 08/01/21 documented as of this encounter
== END 2025-10-19 14:58 | disposition home or self-care (01) ==
LOC: HO.HCS 14:31
PROVIDERS: PCP Family Medicine; Visit Provider Internal Medicine Cardiovascular Disease
DX: I25.10 Atherosclerotic heart disease of native coronary artery without angina pectoris (principal)
CPT/HCPCS: 99214

== ENCOUNTER → 2025-10-19 14:31 | Outpatient (BNVA) | payer MEDICAID, SELFPAY | PROVIDERS: PCP Family Medicine; Visit Provider Internal Medicine Cardiovascular Disease | DX: I25.10 Atherosclerotic heart disease of native coronary artery without angina pectoris (principal); Z79.899 Other long term (current) drug therapy | CPT/HCPCS: 99212 ==